=== PATIENT | female | born 1935 | race Caucasian/White ===

== ENCOUNTER → 2024-09-18 05:00 | Outpatient (REF) | payer MEDICARE, OTHER, SELFPAY ==
[2024-09-18 08:15] LABS: Hematocrit 42.2 % (37-47); Hemoglobin 13.9 g/dL (12.0-15.0); Mean Corp Hgb Conc 32.9 g/dL (32-36); Mean Corpuscular Volume 90.9 fL (81-99); Mean Platelet Vol. 10.8 fl (6.2-12.0); Platelet Count 337 K/mm3 (150-450); RBC Distribution Width CV 15.3 % (11.6-14.6); RBC Distribution Width SD 50.5 fl (35.1-43.9); Red Blood Count 4.64 M/mm3 (4.2-5.4); White Blood Count 9.6 K/mm3 (4.4-11.0)
[2024-09-18 08:24] LABS: Hemoglobin A1c 5.5 % (<=5.6)
[2024-09-18 08:52] LABS: ALB/GLOB Ratio 1.4 RATIO (0.9-2.4); AST(SGOT) 20 U/L (<=31); Alanine Aminotransfer ALT/SGPT 9 U/L (<=34); Albumin, Serum 3.4 g/dL (3.4-4.8); Alkaline Phosphatase 43 U/L (35-104); Anion Gap 10 (5-15); BUN 23 mg/dL (4-19); BUN/Creat Ratio 27.9 RATIO (10-20); Calcium,Total 8.8 mg/dL (7.6-11.0); Carbon Dioxide 23.5 mmol/L (21.0-32.0); Chloride 108 mmol/L (98-108); Cholesterol 136 mg/dL (<=200); Creatinine, Serum 0.82 mg/dL (0.70-1.20); EST Glomerular Filtration Rate 69 (>60); Globulin 2.5 g/dL (2.2-4.2); Glucose 88 mg/dL (70-99); High Density Lipoprotein 56 mg/dL; Low Density Lipoprotein Calc. 67 mg/dL; Potassium 4.1 mmol/L (3.3-5.1); Protein, Total 5.8 g/dL (5.9-8.4); Sodium Level 141 mmol/L (133-145); Total Bilirubin 0.37 mg/dL (0.00-1.30); Triglycerides 68 mg/dL; Very Low Density Lipoprotein 14 mg/dL (5-40); Vitamin D,25 Hydroxy 52.7 ng/mL (30-100); cholesterol:hdl ratio screen 2.43
== END ==
LOC: OLS.ACH2 05:00
PROVIDERS: Visit Provider Internal Medicine
DX: I50.22 Chronic systolic (congestive) heart failure (principal); E78.00 Pure hypercholesterolemia, unspecified; R53.82 Chronic fatigue, unspecified
CPT/HCPCS: 36415; 80053; 80061; 82306; 83036; 85027

== ENCOUNTER → 2024-12-09 05:00 | Outpatient (REF) | payer MEDICARE, OTHER, SELFPAY ==
--- OUTSIDE RECORDS SUMMARY | 2024-12-09 04:23 | XMS RPT_ITS | CCD ---
Author Organization [facility] Care Team Providers Care Digitizer Operator Name Role Phone Anika Hernandez Unavailable Unavailable Cameron Mendes Unavailable Unavailable Unavailable Unavailable David Zuniga Unavailable Alfredo Barreto Unavailable Unavailable Alfredo Barreto Unavailable Unavailable Gorenflo, Alfreda Rivka Unavailable Unavailab le Gorenflo, Alfreda Rivka Unavailable Unavailab le YossiontCameron Unavailable Unavaila ble StormontCameron Unavailable Unavaila ble StormontCameron Unavailable Unavaila ble StormontCameron Unavailable Unavaila ble Alfredo Barreto Unavailable Unavailable Alfredo Barreto Unavailable Unavailable David Zuniga Primary Care Provider Unavailable Primary Care Provider Unavailabl e David Zuniga Primary Care Provider David Zuniga Primary Care Provider RUBIN CHIRINOS Attending Unavailable RUBIN CHIRINOS Referring Unavailable DAVID ZUNIGA Primary Care Unavailab le CRODAVID HARKINS Primary Care Unavailab le David Zuniga MD Primary Care Provider DAVID ZUNIGA Attending Unavailab le CRODAVID HARKINS Primary Care Unavailab le CRODAVID HARKINS Attending Unavailab le CRODAVID HARKINS Primary Care Unavailab le CRODAVID HARKINS Attending Unavailab le DAVID ZUNIGA Primary Care Unavailab le Hernandez Anika MARTIN Primary Care Provider David Zuniga MD Primary Care Provider David Zuniga MD Unavailable Alexey Gipson Attending Unavailable Allergies Allergy Classification Reported Allergen(s) Allergy Type Date of Onset Reaction(s) Facility Corticosteroids (1 source) Cortisone Drug Allergy 6 [facility] (20 sources) cortisone; Translations: [CORTISONE] Propensity to adverse reactions to drug 6 [facility] Work Phone: Medications Current Medications Medication Drug Class(es) Dates Sig (Normalized) Sig (Original) calcium carbonate / cholecalciferol (6 sources) Vitamin D CALCIUM CARBONATE/VITAMIN D3 (CALCIUM 500 + D ORAL) Take by mouth 2 (two) times a day. Active CALCIUM CARBONAT E/VITAMIN D3 (CALCIUM 500 + D ORAL) Take by mouth 2 (two) times a day. Active calcium carbonate / vitamin D3 (19 sources) CALCIUM CARBONAT E/VITAMIN D3 (CALCIUM 500 + D ORAL) Take by mouth 2 (two) times a day. 0 Active CALCIUM CARBONAT E/VITAMIN D3 (CALCIUM 500 + D ORAL) Take by mouth 2 (two) times a day. Active Flu Vaccine [id number](65yr Up)(Pf)180 McG/0.5 Ml Intramuscular Syringe (1 source) Start: 12-27-2017 End: 12-27-2017 flu vaccine tv 2017, 65yr up,,PF, (FLUZONE HIGH DOSE) syringe Indications: Need for influenza vaccination Sign this order in conjunction with the immunization order to satisfy [place] Board [employer] Pharmacy Positive ID requirements for immunization orders.. 0.5 mL 0 12/27/2017 12/27/2017 Active lisinopril 20 mg oral tablet (20 sources) Angiotensin Converting Enzyme Inhibitor Start: 11-18-2019 End: 09-21-2020 take 1 tablet by mouth once daily lisinopriL (PRINIVIL,ZESTRIL) 20 MG tablet Indications: Benign essential hypertension , Chronic combined systolic and diastolic congestive heart failure (HCC) Take 1 (one) tablet (20 mg total) by mouth daily . 90 tablet 3 09/22/2020 Active Start: 12-18-2018 take 1 tablet by kirsty th once daily lisinopril (PRINIVIL,ZESTRIL) 20 MG tablet Indications: Benign essential hypertension , Chronic combined systolic and diastolic congestive heart failure (HCC) Take 1 (one) tablet (20 mg total) by mouth daily . 90 tablet 3 12/18/2018 Active Start: 11-12-2017 End: 12-27-2017 take 1 tablet by mouth once daily lisinopril (PRINIVIL,ZESTRIL) 20 MG tablet Indications: Benign essential hypertension , Chronic combined systolic and diastolic congestive heart failure (HCC) Take 1 (one) tablet (20 mg total) by mouth daily. 90 tablet 3 12/27/2017 Active Start: 10-26-2016 End: 11-09-2017 take 1 tablet by mouth once daily lisinopril (PRINIVIL,ZESTRIL) 20 MG tablet Take 1 (one) tablet (20 mg total) by mouth daily. 90 tablet 3 01/08/2017 11/09/2017 Discontinued (Reorder (Suppress CancelRx Message to Pharmacy)) metoprolol tartrate 50 mg oral tablet (20 sources) beta-Adrenergic Desmond Start: 11-24-2019 End: 09-21-2020 take 1 tablet by mouth twice daily metoprolol tartrate (LOPRESSOR) 50 MG tablet Indications: Benign essential hypertension , Chronic combined systolic and diastolic congestive heart failure (HCC) Take 1 (one) tablet (50 mg total) by mouth 2 (two) times a day . 180 tablet 3 09/22/2020 Active Start: 12-18-2018 take 1 tablet by kirsty th twice daily metoprolol tartrate (LOPRESSOR) 50 MG tablet Indications: Benign essential hypertension , Chronic combined systolic and diastolic congestive heart failure (HCC) Take 1 (one) tablet (50 mg total) by mouth 2 (two) times a day . 180 tablet 3 12/18/2018 Active Start: 11-13-2018 take 1 tablet by kirsty th twice daily metoprolol tartrate (LOPRESSOR) 50 MG tablet Indications: Benign essential hypertension , Chronic combined systolic and diastolic congestive heart failure (HCC) TAKE 1 TABLET BY MOUTH TWO TIMES DAILY 180 tablet 3 11/13/2018 Active Start: 01-05-2017 End: 12-27-2017 take 1 tablet by mouth twice daily metoprolol tartrate (LOPRESSOR) 50 MG tablet Take 1 tablet by mouth two times daily 180 tablet 3 01/05/2017 12/27/2017 Discontinued (Reorder (Suppress CancelRx Message to Pharmacy)) Start: 01-06-2016 take 1 tablet by kirsty th twice daily metoprolol tartrate (LOPRESSOR) 50 MG tablet Take 1 tablet (50 mg total) by mouth 2 (two) times a day. 180 tablet 3 01/06/2016 Active mirtazapine 30 mg oral tablet (20 sources) Start: 11-18-2019 End: 09-21-2020 take 1 tablet by mouth once daily mirtazapine (REMERON) 30 MG tablet Indications: Insomnia, unspecified type Take 1 (one) tablet (30 mg total) by mouth nightly . 90 tablet 3 09/22/2020 Active Start: 06-16-2019 take 1 tablet by kirsty th once daily mirtazapine (REMERON) 30 MG tablet Indications: Insomnia, unspecified type Take 1 (one) tablet (30 mg total) by mouth nightly . 90 tablet 1 06/16/2019 Active Start: 12-18-2018 End: 06-16-2019 take 0.5 tablet by mouth once daily mirtazapine (REMERON) 30 MG tablet Indications: Insomnia, unspecified type Take 0.5 (one-half) tablet (15 mg total) by mouth nightly . 45 tablet 3 12/18/2018 06/16/2019 Discontinued (Reorder) End: 12-18-2018 mirtazapine (REMERON) 30 MG tablet Take 15 mg by mouth nightly. 0 12/18/2018 Discontinued (Reorder (Suppress CancelRx Message to Pharmacy)) multivitamin (multivitamin) per tablet (20 sources) take 1 tablet by kirsty th once daily multivitamin (multivitamin) per tablet Take 1 tablet by mouth daily. 0 Active take 1 tablet by mouth once abril y multivitamin (multivitamin) per tablet Take 1 tablet by mouth daily. Active Multivitamin Tablet (5 sources) take 1 tablet by kirsty th once daily multivitamin (multivitamin) per tablet Take 1 tablet by mouth daily. Active vit C/vit E ac/lut/copper/zinc (PRESERVISION LUTEIN ORAL) (10 sources) take 1 capsule by mo uth once daily before mealtime vit C/vit E ac/lut/copper/zinc (PRESERVISION LUTEIN ORAL) Take 1 capsule by mouth daily . 0 Active Completed/Discontinued Medications Medication Drug Class(es) Dates Sig (Normalized) Sig (Original) ramipril 5 mg oral capsule (10 sources) Angiotensin Converting Enzyme Inhibitor Start: 07-20-2003 End: 12-27-2017 take 1 capsule by mouth once daily ramipril (ALTACE) 5 MG capsule Take 5 mg by mouth daily. 0 07/20/2003 12/27/2017 Discontinued (Discontinued by another clinician) VIT C/VIT E/LUTEIN/MIN/OMEG A-3 (OCUVITE ORAL) (18 sources) End: 01-13-2019 VIT C/VIT E/LUTEIN/MIN/OMEGA- 3 (OCUVITE ORAL) Take by mouth daily . 0 01/13/2019 Discontinued (Discontinued by another clinician) VIT C/VIT E/LUTE IN/MIN/OMEGA-3 (OCUVITE ORAL) Take by mouth daily . 0 Active VIT C/VIT E/LUTE IN/MIN/OMEGA-3 (OCUVITE ORAL) Take by mouth daily . Active VIT C/VIT E/LUTE IN/MIN/OMEGA-3 (OCUVITE ORAL) Take by mouth 2 (two) times a day. Active Problems Active Problems Problem Classification Problem Date Documented Da te Episodic/Chronic Congestive heart failure; nonhypertensive (20 sources) Congestive heart failure; Translations: [Chronic combined systolic (congestive) and diastolic (congestive) heart failure] Onset: 12-27-2017 12-27-2017 Chronic Disorders of lipid metabolism (20 sources) Hyperlipidemia; Translations: [Pure hypercholesterolemia ] Onset: 06-26-2017 06-26-2017 Chronic Essential hypertension (20 sources) Essential hypertension; Translations: [Hypertensive disorder] 06-26-2017 Chronic Heart valve disorders (20 sources) Mitral valve regurgitation; Translations: [Aortic valve regurgitation] 01-06-2016 Chronic Mood disorders (1 source) Mood disorder; Translations: [Mood disorder (HCC)] Chronic Other bone disease and musculoskeletal deformities (8 sources) Osteochondropathy; Translations: [Disorder of bone and cartilage, unspecified] Onset: 03-17-2002 12-27-2017 Chronic Other bone disease and musculoskeletal deformities (6 sources) Disorder of skeletal system; Translations: [Disorder of bone and cartilage, unspecified] Onset: 03-17-2002 12-27-2017 Chronic Other ear and sense organ disorders (2 sources) Bilateral hearing loss; Translations: [Hearing loss due to cerumen impaction, bilateral] Chronic Other ear and sense organ disorders (2 sources) Sensorineural hearing loss, bilateral; Translations: [Sensorineural hearing loss, bilateral] Chronic Other ear and sense organ disorders (1 source) Sudden hearing loss; Translations: [Sudden hearing loss, unspecified laterality] Episodic Other lower respiratory disease (1 source) Dyspnea on exertion Episodic Iza-; endo-; and myocarditis; cardiomyopathy (20 sources) Cardiomyopathy; Translations: [Cardiomyopathy, unspecified] Onset: 04-23-1999 01-06-2016 Chronic Residual codes; unclassified (1 source) Requires vaccination; Translations: [Need for vaccination] Unclassified (1 source) Needs influenza immunization Episodic Unclassified (2 sources) Patient encounter status; Translations: [General medical exam] Past or Other Problems Problem Classification Problem Date Documented Date Episodic/Chronic Congestive heart failure; nonhypertensive (1 source) Congestive heart failure; nonhypertensive Other bone disease and musculoskeletal deformities (2 sources) Disorder of skeletal system; Translations: [Disorder of bone, unspecified] Onset: 03-17-2002 12-27-2017 Episodic Other circulatory disease (5 sources) Subjective carotid bruit; Translations: [Carotid bruit] Onset: 01-08-2017 01-08-2017 Episodic Other circulatory disease (19 sources) Carotid bruit; Translations: [Other specified symptoms and signs involving the circulatory and respiratory systems] Onset: 01-08-2017 Resolved: 07-28-2020 01-08-2017 Episodic Other ear and sense organ disorders (1 source) Presbycusis Episodic Other injuries and conditions due to external causes (1 source) At low risk for fall; Translations: [At low risk for fall] Episodic Residual codes; unclassified (11 sources) Insomnia; Translations: [Insomnia, unspecified] Onset: 12-18-2018 12-18-2018 Episodic Thyroid disorders (20 sources) Acquired hypothyroidism; Translations: [Subclinical hypothyroidism] Resolved: 07-28-2020 06-26-2017 Chronic Thyroid disorders (7 sources) Disorder of thyroid gland; Translations: [Disease of thyroid gland] 01-06-2016 Episodic Results Test Name Value Interpretation Reference Range Facility CBC-Complete Blood Cnt No Di ffon 09-18-2024 Erythrocyte distribution width (RBC) [Ratio] 15.3 % High 11.6-14.6 [facility] Comment on above: Order Comment: 546 Performed By: #### L 506.1001, L100.0500, L501.9985, L500.4050, L500.4100 #### [facility] [address] [place], [address] Hematocrit (Bld) [Volume fraction] 42.2 % Normal 37-47 [facility] Comment on above: Order Comment: 546 Performed By: #### L 506.1001, L100.0500, L501.9985, L500.4050, L500.4100 #### [facility] [address] [place], [address] Hemoglobin (Bld) [Mass/Vol] 13.9 g/dL Normal 12.0-15.0 [facility] Comment on above: Order Comment: 546 Performed By: #### L 506.1001, L100.0500, L501.9985, L500.4050, L500.4100 #### [facility] [address] [place], [address] MCH (RBC) [Entitic mass] 30.0 pg Normal 27.0-32.0 [facility] Comment on above: Order Comment: 546 Performed By: #### L 506.1001, L100.0500, L501.9985, L500.4050, L500.4100 #### [facility] [address] [place], [address] MCHC (RBC) [Mass/Vol] 32.9 g/dL Normal 32-36 [facility] Comment on above: Order Comment: 546 Performed By: #### L 506.1001, L100.0500, L501.9985, L500.4050, L500.4100 #### [facility] [address] [place], [address] MCV (RBC) [Entitic vol] 90.9 fL Normal 81-99 [facility] Comment on above: Order Comment: 546 Performed By: #### L 506.1001, L100.0500, L501.9985, L500.4050, L500.4100 #### [facility] [address] [place], [address] Platelet mean volume (Bld) [Entitic vol] 10.8 fL Normal 6.2-12.0 [facility] Comment on above: Order Comment: 546 Performed By: #### L 506.1001, L100.0500, L501.9985, L500.4050, L500.4100 #### [facility] [address] [place], [address] Platelets (Bld) [#/Vol] 337 10*3/uL Normal 150-450 [facility] Comment on above: Order Comment: 546 Performed By: #### L 506.1001, L100.0500, L501.9985, L500.4050, L500.4100 #### [facility] [address] [place], [address] RBC (Bld) [#/Vol] 4.64 10*6/uL Normal 4.2-5.4 [facility] Comment on above: Order Comment: 546 Performed By: #### L 506.1001, L100.0500, L501.9985, L500.4050, L500.4100 #### [facility] [address] [place], [address] RDW SD 50.5 fl High 35.1-43.9 [facility] Comment on above: Order Comment: 546 Performed By: #### L 506.1001, L100.0500, L501.9985, L500.4050, L500.4100 #### [facility] [address] [place], [address] WBC (Bld) [#/Vol] 9.6 10*3/uL Normal 4.4-11.0 [facility] Comment on above: Order Comment: 546 Performed By: #### L 506.1001, L100.0500, L501.9985, L500.4050, L500.4100 #### [facility] [address] [place], [address] Comprehensive Metabolic Prof vaon 09-18-2024 Albumin [Mass/Vol] 3.4 g/dL Normal 3.4-4.8 [facility] Comment on above: Order Comment: 546 Performed By: #### L 506.1001, L100.0500, L501.9985, L500.4050, L500.4100 #### [facility] [address] [place], [address] Albumin/Globulin [Mass ratio] 1.4 {ratio} Normal 0.9-2.4 [facility] Comment on above: Order Comment: 546 Performed By: #### L 506.1001, L100.0500, L501.9985, L500.4050, L500.4100 #### [facility] [address] [place], [address] ALK PHOS 43 U/L Normal 35-104 [facility] Comment on above: Order Comment: 546 Performed By: #### L 506.1001, L100.0500, L501.9985, L500.4050, L500.4100 #### [facility] [address] [place], [address] ALT [Catalytic activity/Vol] 9 U/L Normal <=34 [facility] Comment on above: Order Comment: 546 Performed By: #### L 506.1001, L100.0500, L501.9985, L500.4050, L500.4100 #### [facility] [address] [place], [address] AST [Catalytic activity/Vol] 20 U/L Normal <=31 [facility] Comment on above: Order Comment: 546 Performed By: #### L 506.1001, L100.0500, L501.9985, L500.4050, L500.4100 #### [facility] [address] [place], [address] Bilirubin [Mass/Vol] 0.37 mg/dL Normal 0.00-1.30 [facility] Comment on above: Order Comment: 546 Performed By: #### L 506.1001, L100.0500, L501.9985, L500.4050, L500.4100 #### [facility] [address] [place], [address] BUN/CRE 27.9 RATIO High 10-20 [facility] Comment on above: Order Comment: 546 Performed By: #### L 506.1001, L100.0500, L501.9985, L500.4050, L500.4100 #### [facility] [address] [place], [address] Calcium [Mass/Vol] 8.8 mg/dL Normal 7.6-11.0 [facility] Comment on above: Order Comment: 546 Performed By: #### L 506.1001, L100.0500, L501.9985, L500.4050, L500.4100 #### [facility] [address] [place], [address] Chloride [Moles/Vol] 108 mmol/L Normal 98-108 [facility] Comment on above: Order Comment: 546 Performed By: #### L 506.1001, L100.0500, L501.9985, L500.4050, L500.4100 #### [facility] [address] [place], [address] CO2 [Moles/Vol] 23.5 mmol/L Normal 21.0-32.0 [facility] Comment on above: Order Comment: 546 Performed By: #### L 506.1001, L100.0500, L501.9985, L500.4050, L500.4100 #### [facility] [address] [place], [address] Creatinine [Mass/Vol] 0.82 mg/dL Normal 0.70-1.20 [facility] Comment on above: Order Comment: 546 Performed By: #### L 506.1001, L100.0500, L501.9985, L500.4050, L500.4100 #### [facility] [address] [place], [address] GAP 10 Normal 5-15 [facility] Comment on above: Order Comment: 546 Performed By: #### L 506.1001, L100.0500, L501.9985, L500.4050, L500.4100 #### [facility] [address] [place], [address] GFR/1.73 sq M.predicted among non-blacks MDRD (S/P/Bld) [Vol rate/Area] 69 mL/min/{1.73_m2} Normal >60 [facility] Comment on above: Order Comment: 546 Result Comment: mL/m in/1.73m2 CKD-EPI Creatinine Equation (2020) Performed By: #### L 506.1001, L100.0500, L501.9985, L500.4050, L500.4100 #### [facility] [address] [place], [address] Globulin (S) [Mass/Vol] 2.5 g/dL Normal 2.2-4.2 [facility] Comment on above: Order Comment: 546 Performed By: #### L 506.1001, L100.0500, L501.9985, L500.4050, L500.4100 #### [facility] [address] [place], [address] Glucose [Mass/Vol] 88 mg/dL Normal 70-99 [facility] Comment on above: Order Comment: 546 Performed By: #### L 506.1001, L100.0500, L501.9985, L500.4050, L500.4100 #### [facility] [address] [place], [address] Potassium [Moles/Vol] 4.1 mmol/L Normal 3.3-5.1 [facility] Comment on above: Order Comment: 546 Performed By: #### L 506.1001, L100.0500, L501.9985, L500.4050, L500.4100 #### [facility] [address] [place], [address] Sodium [Moles/Vol] 141 mmol/L Normal 133-145 [facility] Comment on above: Order Comment: 546 Performed By: #### L 506.1001, L100.0500, L501.9985, L500.4050, L500.4100 #### [facility] [address] [place], [address] T PROT 5.8 g/dL Low 5.9-8.4 [facility] Comment on above: Order Comment: 546 Performed By: #### L 506.1001, L100.0500, L501.9985, L500.4050, L500.4100 #### [facility] [address] [place], [address] Urea nitrogen [Mass/Vol] 23 mg/dL High 4-19 [facility] Comment on above: Order Comment: 546 Performed By: #### L 506.1001, L100.0500, L501.9985, L500.4050, L500.4100 #### [facility] [address] [place], [address] Hemoglobin A1con 09-18-2024 HbA1c (Bld) [Mass fraction] 5.5 % Normal <=5.6 [facility] Comment on above: Order Comment: 546 Result Comment: Norm al < 5.7 % Prediabetic 5.7 - 6.4 % Diabetic >or= 6.5 % Please note range changes. Performed By: #### L 506.1001, L100.0500, L501.9985, L500.4050, L500.4100 #### [facility] [address] [place], [address] Lipid Profileon 09-18-2024 CHOL:HDL 2.43 Normal [facility] Comment on above: Order Comment: 546 Performed By: #### L 506.1001, L100.0500, L501.9985, L500.4050, L500.4100 #### [facility] [address] [place], [address] Cholesterol [Mass/Vol] 136 mg/dL Normal <=200 [facility] Comment on above: Order Comment: 546 Result Comment: Chol esterol level, Desirable <200 mg/dL Borderline high cholesterol 200-239 mg/dL High cholesterol >=240 mg/dL Recommendations of the NCEP Adult Treatment Panel for the following risk-cutoff thresholds for the [place] population. Performed By: #### L 506.1001, L100.0500, L501.9985, L500.4050, L500.4100 #### [facility] [address] [place], [address] Cholesterol in HDL [Mass/Vol] 56 mg/dL Normal [facility] Comment on above: Order Comment: 546 Result Comment: Lyric onal Cholesterol Education Program (NCEP) guidelines: <40 mg/dL: Low HDL-cholesterol (major risk factor for CHD) >= 60 mg/dL: High HDL-cholesterol (negative risk factor for CHD) HDL-cholesterol is affected by a number of factors, e.g. smoking, exercise, hormones, sex and age. Performed By: #### L 506.1001, L100.0500, L501.9985, L500.4050, L500.4100 #### [facility] [address] [place], [address] Cholesterol in LDL [Mass/Vol] 67 mg/dL Normal [facility] Comment on above: Order Comment: 546 Result Comment: Bord vdzpbm=354-971 mg/dL Higher Bpgg=808 mg/dL or greater Performed By: #### L 506.1001, L100.0500, L501.9985, L500.4050, L500.4100 #### [facility] [address] [place], [address] Cholesterol in VLDL [Mass/Vol] 14 mg/dL Normal 5-40 [facility] Comment on above: Order Comment: 546 Performed By: #### L 506.1001, L100.0500, L501.9985, L500.4050, L500.4100 #### [facility] [address] [place], [address] Triglyceride [Mass/Vol] 68 mg/dL Normal [facility] Comment on above: Order Comment: 546 Result Comment: The drugs N-Acetylcysteine and Metamizole may falsely depress this assay. Normal range: <150 mg/dL Borderline High: 150-199 mg/dL High: 200-499 mg/dL Very High: >500 mg/dL Performed By: #### L 506.1001, L100.0500, L501.9985, L500.4050, L500.4100 #### [facility] [address] [place], [address] Vitamin D,25 Hydroxyon 09-18 Vitamin D 25-OH 52.7 ng/mL Normal 30-100 [facility] Comment on above: Order Comment: 546 Result Comment: Alicia min D Status Deficiency: <20 ng/mL (50nmol/L) Insufficiency: 20-30 ng/mL (50-75 nmol/L) Sufficiency: 30-100 ng/mL (75-250 nmol/L) Toxicity: >100 ng/mL (>250 nmol/L) Performed By: #### L 506.1001, L100.0500, L501.9985, L500.4050, L500.4100 #### [facility] [address] [place], [address] US DOPPLER CAROTIDon 10-13-2 020 US DOPPLER CAROTID Patient Info Name: NA GOOD Age: 84 years : 1935 Gender: Female Exam Date: 02/03/2020 2:02 PM Site Location: [facility] Patient Status: Outpatient Potato Pancake Frier: Tatyana Olmos, VILMA, RDMS (AB), RVT Referring Physician: RUBIN CHIRINOS ; Indications R09.89 - Other specified symptoms and signs involving the circulatory and respiratory systems Procedure Description 85045 Duplex examination using B-mode, color and spectral Doppler of extracranial arteries; complete bilateral study. NASCET criteria is used when performing imaging correlation with carotid duplex interpretation. Conclusions * Right. * Minimal (1-19%) stenosis in the right internal carotid artery. * Right vertebral artery is patent with antegrade flow. * No evidence of stenosis in the right subclavian, common carotid and external carotid arteries. * Left. * Minimal (1-19%) stenosis in the left internal carotid artery. * No evidence of stenosis in the left common carotid and external carotid arteries. 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 * A bunny ear sign is noted in the left vertebral artery which suggests ipsilateral subclavian artery stenosis. Recommendations * Based upon this study, Advanced Carotid Imaging does not appear to be warranted. Clinical correlation advised. Measurements ---- Name Value ---- Right PSV ---- Right Prox CCA PSV 49 cm/s Right Mid CCA PSV 48 cm/s Right Distal CCA PSV 44 cm/s Right Prox ICA PSV 57 cm/s Right Mid ICA PSV 66 cm/s Right Distal ICA PSV 70 cm/s Right ECA PSV 61 cm/s Right Vert PSV 69 cm/s BC PSV 55 cm/s Right Prox SCA PSV 126 cm/s Rt ICA/CCA Ratio 1.3 Measurements ---- Name Value ---- Right EDV ---- Right Prox CCA EDV 6 cm/s Right Mid CCA EDV 9 cm/s Right Distal CCA EDV 9 cm/s Right Prox ICA EDV 22 cm/s Right Mid ICA EDV 23 cm/s Right Distal ICA EDV 24 cm/s Right ECA EDV 0 cm/s Right Vert EDV 10 cm/s BC EDV 0 cm/s Right Prox SCA EDV 0 cm/s Measurements ---- Name Value ---- Left PSV ---- Left Prox CCA PSV 56 cm/s Left Mid CCA PSV 61 cm/s Left Distal CCA PSV 56 cm/s Left Prox ICA PSV 49 cm/s Left Mid ICA PSV 64 cm/s Left Distal ICA PSV 69 cm/s Left ECA PSV 69 cm/s Left Vert PSV 47 cm/s Left Prox SCA PSV 221 cm/s Lt ICA/CCA Ratio 0.9 Measurements ---- Name Value ---- Left EDV ---- Left Prox CCA EDV 13 cm/s Left Mid CCA EDV 12 cm/s Left Distal CCA EDV 14 cm/s Left Prox ICA EDV 15 cm/s Left Mid ICA EDV 16 cm/s Left Distal ICA EDV 18 cm/s Left ECA EDV 5 cm/s Left Vert EDV 17 cm/s Left Prox SCA EDV 1 cm/s Right Findings * No plaque noted in the right common carotid artery. * No plaque noted in the right external carotid artery. * Calcific plaque noted in the right internal carotid artery. Left Findings * No plaque noted in the left common carotid artery. * No plaque noted in the left external carotid artery. * Calcific plaque noted in the left internal carotid artery. Risk Factors Patient has a history of hypertension. . Report Signatures Finalized by HAM Morris DO on 02/03/2020 03:[address] [facility] Ambulatory US DOPPLER CAROTID Patient Info Name: NA GOOD Age: 84 years : 1935 Gender: Female Exam Date: 02/03/2020 2:02 PM Site Location: [facility] Patient Status: Outpatient [employer]ato [employer] Frier: Tatyana Olmos BS, RDMS (AB), RVT Referring Physician: RUBIN CHIRINOS ; Indications R09.89 - Other specified symptoms and signs involving the circulatory and respiratory systems Procedure Description 20153 Duplex examination using B-mode, color and spectral Doppler of extracranial arteries; complete bilateral study. NASCET criteria is used when performing imaging correlation with carotid duplex interpretation. Conclusions * Right. * Minimal (1-19%) stenosis in the right internal carotid artery. * Right vertebral artery is patent with antegrade flow. * No evidence of stenosis in the right subclavian, common carotid and external carotid arteries. * Left. * Minimal (1-19%) stenosis in the left internal carotid artery. * No evidence of stenosis in the left common carotid and external carotid arteries. 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 * A bunny ear sign is noted in the left vertebral artery which suggests ipsilateral subclavian artery stenosis. Recommendations * Based upon this study, Advanced Carotid Imaging does not appear to be warranted. Clinical correlation advised. Measurements ---- Name Value ---- Right PSV ---- Right Prox CCA PSV 49 cm/s Right Mid CCA PSV 48 cm/s Right Distal CCA PSV 44 cm/s Right Prox ICA PSV 57 cm/s Right Mid ICA PSV 66 cm/s Right Distal ICA PSV 70 cm/s Right ECA PSV 61 cm/s Right Vert PSV 69 cm/s BC PSV 55 cm/s Right Prox SCA PSV 126 cm/s Rt ICA/CCA Ratio 1.3 Measurements ---- Name Value ---- Right EDV ---- Right Prox CCA EDV 6 cm/s Right Mid CCA EDV 9 cm/s Right Distal CCA EDV 9 cm/s Right Prox ICA EDV 22 cm/s Right Mid ICA EDV 23 cm/s Right Distal ICA EDV 24 cm/s Right ECA EDV 0 cm/s Right Vert EDV 10 cm/s BC EDV 0 cm/s Right Prox SCA EDV 0 cm/s Measurements ---- Name Value ---- Left PSV ---- Left Prox CCA PSV 56 cm/s Left Mid CCA PSV 61 cm/s Left Distal CCA PSV 56 cm/s Left Prox ICA PSV 49 cm/s Left Mid ICA PSV 64 cm/s Left Distal ICA PSV 69 cm/s Left ECA PSV 69 cm/s Left Vert PSV 47 cm/s Left Prox SCA PSV 221 cm/s Lt ICA/CCA Ratio 0.9 Measurements ---- Name Value ---- Left EDV ---- Left Prox CCA EDV 13 cm/s Left Mid CCA EDV 12 cm/s Left Distal CCA EDV 14 cm/s Left Prox ICA EDV 15 cm/s Left Mid ICA EDV 16 cm/s Left Distal ICA EDV 18 cm/s Left ECA EDV 5 cm/s Left Vert EDV 17 cm/s Left Prox SCA EDV 1 cm/s Right Findings * No plaque noted in the right common carotid artery. * No plaque noted in the right external carotid artery. * Calcific plaque noted in the right internal carotid artery. Left Findings * No plaque noted in the left common carotid artery. * No plaque noted in the left external carotid artery. * Calcific plaque noted in the left internal carotid artery. Risk Factors Patient has a history of hypertension. . Report Signatures Finalized by HAM Morris DO on 02/03/2020 03:27 PM Dictated by: MAGDALENO POTTER III on SunFeb 03, 2020 3:27:40 PM EDT Transcribed by: MAGDALENO POTTER III on SunFeb 03, 2020 3:27:40 PM EDT Finalized by: MAGDALENO POTTER III on SunFeb 03, 2020 3:27:40 PM EDT [facility] Ambulatory Patient Info Name: NA GOOD Age: 84 years : 1935 Gender: Female Exam Date: 02/03/2020 2:02 PM Site Location: [facility] Patient Status: Outpatient [employer] Frier: Tatyana Olmos BS, RDMS (AB), RVT Referring Physician: RUBIN CHIRINOS ; Indications R09.89 - Other specified symptoms and signs involving the circulatory and respiratory systems Procedure Description 40842 Duplex examination using B-mode, color and spectral Doppler of extracranial arteries; complete bilateral study. NASCET criteria is used when performing imaging correlation with carotid duplex interpretation. Conclusions * Right. * Minimal (1-19%) stenosis in the right internal carotid artery. * Right vertebral artery is patent with antegrade flow. * No evidence of stenosis in the right subclavian, common carotid and external carotid arteries. * Left. * Minimal (1-19%) stenosis in the left internal carotid artery. * No evidence of stenosis in the left common carotid and external carotid arteries. 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 * A bunny ear sign is noted in the left vertebral artery which suggests ipsilateral subclavian artery stenosis. Recommendations * Based upon this study, Advanced Carotid Imaging does not appear to be warranted. Clinical correlation advised. Measurements ---- Name Value ---- Right PSV ---- Right Prox CCA PSV 49 cm/s Right Mid CCA PSV 48 cm/s Right Distal CCA PSV 44 cm/s Right Prox ICA PSV 57 cm/s Right Mid ICA PSV 66 cm/s Right Distal ICA PSV 70 cm/s Right ECA PSV 61 cm/s Right Vert PSV 69 cm/s BC PSV 55 cm/s Right Prox SCA PSV 126 cm/s Rt ICA/CCA Ratio 1.3 Measurements ---- Name Value ---- Right EDV ---- Right Prox CCA EDV 6 cm/s Right Mid CCA EDV 9 cm/s Right Distal CCA EDV 9 cm/s Right Prox ICA EDV 22 cm/s Right Mid ICA EDV 23 cm/s Right Distal ICA EDV 24 cm/s Right ECA EDV 0 cm/s Right Vert EDV 10 cm/s BC EDV 0 cm/s Right Prox SCA EDV 0 cm/s Measurements ---- Name Value ---- Left PSV ---- Left Prox CCA PSV 56 cm/s Left Mid CCA PSV 61 cm/s Left Distal CCA PSV 56 cm/s Left Prox ICA PSV 49 cm/s Left Mid ICA PSV 64 cm/s Left Distal ICA PSV 69 cm/s Left ECA PSV 69 cm/s Left Vert PSV 47 cm/s Left Prox SCA PSV 221 cm/s Lt ICA/CCA Ratio 0.9 Measurements ---- Name Value ---- Left EDV ---- Left Prox CCA EDV 13 cm/s Left Mid CCA EDV 12 cm/s Left Distal CCA EDV 14 cm/s Left Prox ICA EDV 15 cm/s Left Mid ICA EDV 16 cm/s Left Distal ICA EDV 18 cm/s Left ECA EDV 5 cm/s Left Vert EDV 17 cm/s Left Prox SCA EDV 1 cm/s Right Findings * No plaque noted in the right common carotid artery. * No plaque noted in the right external carotid artery. * Calcific plaque noted in the right internal carotid artery. Left Findings * No plaque noted in the left common carotid artery. * No plaque noted in the left external carotid artery. * Calcific plaque noted in the left internal carotid artery. Risk Factors Patient has a history of hypertension. . Report Signatures Finalized by HAM Morris DO on 02/03/2020 03:27 PM [facility] Interface, Rad In Heart[facility] Xper Echopacs - 02/03/2020 3:27 PM EDT Patient Info Name: NA GOOD Age: 84 years : 1935 Gender: Female Exam Date: 02/03/2020 2:02 PM Site Location: [facility] Patient Status: Outpatient [employer] Frier: Tatyana Olmos, VILMA, RDMS (AB), RVT Referring Physician: RUBIN CHIRINOS ; Indications R09.89 - Other specified symptoms and signs involving the circulatory and respiratory systems Procedure Description [id number] Duplex examination using B-mode, color and spectral Doppler of extracranial arteries; complete bilateral study. NASCET criteria is used when performing imaging correlation with carotid duplex interpretation. Conclusions * Right. * Minimal (1-19%) stenosis in the right internal carotid artery. * Right vertebral artery is patent with antegrade flow. * No evidence of stenosis in the right subclavian, common carotid and external carotid arteries. * Left. * Minimal (1-19%) stenosis in the left internal carotid artery. * No evidence of stenosis in the left common carotid and external carotid arteries. 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 * A bunny ear sign is noted in the left vertebral artery which suggests ipsilateral subclavian artery stenosis. Recommendations * Based upon this study, Advanced Carotid Imaging does not appear to be warranted. Clinical correlation advised. Measurements ---- Name Value ---- Right PSV ---- Right Prox CCA PSV 49 cm/s Right Mid CCA PSV 48 cm/s Right Distal CCA PSV 44 cm/s Right Prox ICA PSV 57 cm/s Right Mid ICA PSV 66 cm/s Right Distal ICA PSV 70 cm/s Right ECA PSV 61 cm/s Right Vert PSV 69 cm/s BC PSV 55 cm/s Right Prox SCA PSV 126 cm/s Rt ICA/CCA Ratio 1.3 Measurements ---- Name Value ---- Right EDV ---- Right Prox CCA EDV 6 cm/s Right Mid CCA EDV 9 cm/s Right Distal CCA EDV 9 cm/s Right Prox ICA EDV 22 cm/s Right Mid ICA EDV 23 cm/s Right Distal ICA EDV 24 cm/s Right ECA EDV 0 cm/s Right Vert EDV 10 cm/s BC EDV 0 cm/s Right Prox SCA EDV 0 cm/s Measurements ---- Name Value ---- Left PSV ---- Left Prox CCA PSV 56 cm/s Left Mid CCA PSV 61 cm/s Left Distal CCA PSV 56 cm/s Left Prox ICA PSV 49 cm/s Left Mid ICA PSV 64 cm/s Left Distal ICA PSV 69 cm/s Left ECA PSV 69 cm/s Left Vert PSV 47 cm/s Left Prox SCA PSV 221 cm/s Lt ICA/CCA Ratio 0.9 Measurements ---- Name Value ---- Left EDV ---- Left Prox CCA EDV 13 cm/s Left Mid CCA EDV 12 cm/s Left Distal CCA EDV 14 cm/s Left Prox ICA EDV 15 cm/s Left Mid ICA EDV 16 cm/s Left Distal ICA EDV 18 cm/s Left ECA EDV 5 cm/s Left Vert EDV 17 cm/s Left Prox SCA EDV 1 cm/s Right Findings * No plaque noted in the right common carotid artery. * No plaque noted in the right external carotid artery. * Calcific plaque noted in the right internal carotid artery. Left Findings * No plaque noted in the left common carotid artery. * No plaque noted in the left external carotid artery. * Calcific plaque noted in the left internal carotid artery. Risk Factors Patient has a history of hypertension. . Report Signatures Finalized by HAM Morris DO on 02/03/2020 03:27 PM [facility] ECG 12-LEADon 01-13-2019 Atrial Rate [facility] P [place] [facility] P-R Interval [facility] Q-T Interval [facility] Q-T Interval (corrected) [facility] QRS Duration [facility] QTC Calculation (Bezet) [facility] R [place] [facility] T [place] [facility] Ventricular Rate [facility] ECG 12 [place] 01-15-2018 Atrial Rate Invalid Interpretation Code [facility] P [place] Invalid Interpretation Code [facility] P-R Interval Invalid Interpretation Code [facility] Q-T Interval Invalid Interpretation Code [facility] Q-T Interval (corrected) Invalid Interpretation Code [facility] QRS Duration Invalid Interpretation Code [facility] QTC Calculation (Bezet) Invalid Interpretation Code [facility] R [place] Invalid Interpretation Code [facility] T [place] Invalid Interpretation Code [facility] Ventricular Rate Invalid Interpretation Code [facility] CBC w/o Diffon 12-19-2017 Erythrocyte distribution width Auto Ratio (RBC) 14.2 % Normal 10.0-14.4 [facility] Comment on above: Performed By: #### L IPID, CMET, TSH, CBCWOD ####Unless otherwise noted, all testing performed by [address] [phone]: [id number] Director: Alverto Fitzgerald M.D. Hematocrit Auto Volume Fraction (Bld) 44.2 % Normal 34.4-44.8 [facility] Comment on above: Performed By: #### L IPID, CMET, TSH, CBCWOD ####Unless otherwise noted, all testing performed by [address] [phone]: [id number] Director: Alverto Fitzgerald M.D. Hemoglobin mass conc (Bld) 14.6 g/dL Normal 11.6-15.4 [facility] Comment on above: Performed By: #### L IPID, CMET, TSH, CBCWOD ####Unless otherwise noted, all testing performed by [address] [phone]: [id number] Director: Alverto Fitzgerald M.D. MCH Auto Entitic mass (RBC) 29.4 pg Normal 27.9-33.9 [facility] Comment on above: Performed By: #### L IPID, CMET, TSH, CBCWOD ####Unless otherwise noted, all testing performed by [place] [phone]: [id number] Director: Alverto Fitzgerald M.D. MCHC Auto mass conc (RBC) 33.0 g/dL Low 33.1-35.1 [facility] Comment on above: Performed By: #### L IPID, CMET, TSH, CBCWOD ####Unless otherwise noted, all testing performed by [address] [phone]: [id number] Director: Alverto Fitzgerald M.D. MCV Auto Entitic volume (RBC) 89.1 fL Normal 82.6-98.9 [facility] Comment on above: Performed By: #### L IPID, CMET, TSH, CBCWOD ####Unless otherwise noted, all testing performed by [address] [phone]: [id number] Director: Alverto Fitzgerald M.D. Platelet mean volume Auto Entitic volume (Bld) 8.6 fL Normal 7.0-10.6 [facility] Comment on above: Performed By: #### L IPID, CMET, TSH, CBCWOD ####Unless otherwise noted, all testing performed by [address] [phone]: [id number] Director: Alverto Fitzgerald M.D. Platelets Auto #/vol (Bld) 349 K/mcL Normal 162-402 [facility] Comment on above: Performed By: #### L IPID, CMET, TSH, CBCWOD ####Unless otherwise noted, all testing performed by [address] [phone]: [id number] Director: Alverto Fitzgerald M.D. RBC Auto #/vol (Bld) 4.96 M/mcL Normal 3.7-5.0 [facility] Comment on above: Performed By: #### L IPID, CMET, TSH, CBCWOD ####Unless otherwise noted, all testing performed by [address] [phone]: [id number] Director: Alverto Fitzgerald M.D. WBC Auto #/vol (Bld) 9.0 K/mcL Normal 3.4-10.6 [facility] Comment on above: Performed By: #### L IPID, CMET, TSH, CBCWOD ####Unless otherwise noted, all testing performed by [address] [phone]: [id number] Director: Alverto Fitzgerald M.D. [facility] 12-19-2017 Albumin mass conc 3.7 g/dL Normal 3.2-5.2 [facility] Comment on above: Performed By: #### L IPID, CMET, TSH, CBCWOD ####Unless otherwise noted, all testing performed by [address] [phone]: [id number] Director: Alverto Fitzgerald M.D. ALP enzyme act/vol 54 U/L Normal 40-150 [facility] Comment on above: Performed By: #### L IPID, CMET, TSH, CBCWOD ####Unless otherwise noted, all testing performed by [place] [phone]: [id number] Director: Alverto Fitzgerald M.D. ALT enzyme act/vol 15 U/L Normal 14-65 [facility] Comment on above: Result Comment: This test result might be falsely depressed or falsely elevated onsamples drawn from patients taking Sulfasalazine and Sulfapyridine.Venipuncture should occur prior to taking either of these drugs. Performed By: #### L IPID, CMET, TSH, CBCWOD ####Unless otherwise noted, all testing performed by [address] [phone]: [id number] Director: Alverto Fitzgerald M.D. AST enzyme act/vol 15 U/L Normal 0-45 [facility] Comment on above: Result Comment: This test result might be falsely depressed or falsely elevated onsamples drawn from patients taking Sulfasalazine and Sulfapyridine.Venipuncture should occur prior to taking either of these drugs. Performed By: #### L IPID, CMET, TSH, CBCWOD ####Unless otherwise noted, all testing performed by [address] [phone]: [id number] Director: Alverto Fitzgerald M.D. Bilirubin mass conc 0.5 mg/dL Normal 0.3-1.2 [facility] Comment on above: Performed By: #### L IPID, CMET, TSH, CBCWOD ####Unless otherwise noted, all testing performed by [address] [phone]: [id number] Director: Alverto Fitzgerald M.D. Calcium mass conc 8.9 mg/dL Normal 8.4-10.2 [facility] Comment on above: Performed By: #### L IPID, CMET, TSH, CBCWOD ####Unless otherwise noted, all testing performed by [address] [phone]: [id number] Director: Alverto Fitzgerald M.D. Chloride molar conc 106 mmol/L Normal 98-108 [facility] Comment on above: Performed By: #### L IPID, CMET, TSH, CBCWOD ####Unless otherwise noted, all testing performed by [address] [phone]: [id number] Director: Alverto Fitzgerald M.D. CO2 molar conc 29 mmol/L Normal 21-32 [facility] Comment on above: Performed By: #### L IPID, CMET, TSH, CBCWOD ####Unless otherwise noted, all testing performed by [address] [phone]: [id number] Director: Alverto Fitzgerald M.D. Creatinine mass conc 0.76 mg/dL Normal 0.60-1.20 [facility] Comment on above: Performed By: #### L IPID, CMET, TSH, CBCWOD ####Unless otherwise noted, all testing performed by [address] [phone]: [id number] Director: Alverto Fitzgerald M.D. GFR/1.73 sq M predicted among blacks MDRD vol rate/area (S/P/Bld) mL/min/{1.73_m2} Normal [facility] Comment on above: Result Comment: Afri can [place] GFR Calc Performed By: #### L IPID, CMET, TSH, CBCWOD ####Unless otherwise noted, all testing performed by [address] [phone]: [id number] Director: Alverto Fitzgerald M.D. GFR/1.73 sq M predicted among non-blacks MDRD vol rate/area (S/P/Bld) mL/min/{1.73_m2} Normal [facility] Comment on above: Result Comment: Non- GFR CalceGFR is an estimated Glomerular Filtration Rate based on the valueof the patient's serum creatinine. In outpatients, eGFR should be usedas a helpful tool in screening for CKD. In inpatients or patients withacute renal failure, eGFR represents the GFR at the moment of the drawand should be used with caution. Performed By: #### L IPID, CMET, TSH, CBCWOD ####Unless otherwise noted, all testing performed by [address] [phone]: [id number] Director: Alverto Fitzgerald M.D. Glucose mass conc 84 mg/dL Normal 70-99 [facility] Comment on above: Result Comment: This test result might be falsely depressed or falsely elevated onsamples drawn from patients taking Sulfasalazine and Sulfapyridine.Venipuncture should occur prior to taking either of these drugs. Performed By: #### L IPID, CMET, TSH, CBCWOD ####Unless otherwise noted, all testing performed by [address] [phone]: [id number] Director: Alverto Fitzgerald M.D. Potassium molar conc 4.1 mmol/L Normal 3.5-5.1 [facility] Comment on above: Performed By: #### L IPID, CMET, TSH, CBCWOD ####Unless otherwise noted, all testing performed by [address]CLIA: [id number] Director: Alverto Fitzgerald M.D. Protein mass conc 7.2 g/dL Normal 6.0-8.0 [facility] Comment on above: Performed By: #### L IPID, CMET, TSH, CBCWOD ####Unless otherwise noted, all testing performed by [address]8509CLIA: [id number] Director: Alverto Fitzgerald M.D. Sodium molar conc 142 mmol/L Normal 135-145 [facility] Comment on above: Performed By: #### L IPID, CMET, TSH, CBCWOD ####Unless otherwise noted, all testing performed by [address] [phone]: [id number] Director: Alverto Fitzgerald M.D. Urea nitrogen mass conc 19 mg/dL Normal 8-25 [facility] Comment on above: Performed By: #### L IPID, CMET, TSH, CBCWOD ####Unless otherwise noted, all testing performed by [address] [phone]: [id number] Director: Alverto Fitzgerald M.D. Lipid Panelon 12-19-2017 Cholesterol in HDL mass conc 68 mg/dL High 40-59 [facility] Comment on above: Performed By: #### L IPID, CMET, TSH, CBCWOD ####Unless otherwise noted, all testing performed by [place] [phone]: [id number] Director: Alverto Fitzgerald M.D. Cholesterol in LDL mass conc 150 mg/dL Normal 10-150 [facility] Comment on above: Performed By: #### L IPID, CMET, TSH, CBCWOD ####Unless otherwise noted, all testing performed by [address]: [id number] Director: Alverto Fitzgerald M.D. Cholesterol in VLDL mass conc 24 mg/dL Normal 5-40 [facility] Comment on above: Performed By: #### L IPID, CMET, TSH, CBCWOD ####Unless otherwise noted, all testing performed by [address] [phone]: [id number] Director: Alverto Fitzgerald M.D. Cholesterol mass conc 243 mg/dL High 100-199 [facility] Comment on above: Performed By: #### L IPID, CMET, TSH, CBCWOD ####Unless otherwise noted, all testing performed by [address], [place] [phone]: [id number] Director: Alverto Fitzgerald M.D. Cholesterol.total/Ch olesterol in HDL mass ratio 3.6 {ratio} Normal 3.2-5.0 [facility] Comment on above: Result Comment: Robert le Coronary Heart Disease Risk Factor (CHDRF):Average risk= 4.41/2 Average risk= 3.32 times Average risk= 7.1 Performed By: #### L IPID, CMET, TSH, CBCWOD ####Unless otherwise noted, all testing performed by [address] [phone]: [id number] Director: Alverto Fitzgerald M.D. Triglyceride mass conc 121 mg/dL High 25-120 [facility] Comment on above: Performed By: #### L IPID, CMET, TSH, CBCWOD ####Unless otherwise noted, all testing performed by [address] [phone]: [id number] Director: Alverto Fitzgerald M.D. Microalbumin, Ur Random Pane epifanio 12-19-2017 Creatinine, Urine Random 124.00 mg/dL Normal [facility] Comment on above: Result Comment: No e stablished reference range. Performed By: #### M IALBURR ####Unless otherwise noted, all testing performed by [address] [id number]: [id number] Director: Alverto Fitzgerald M.D. MIALB/Creatinine Ratio 9 Normal 0.0-25.0 [facility] Comment on above: Performed By: #### M IALBURR ####Unless otherwise noted, all testing performed by [address] [id number]: [id number] Director: Alverto Fitzgerald M.D. Microalbumin, Urine Random 1.1 mg/dL Normal 0.0-1.8 [facility] Comment on above: Performed By: #### M IALBURR ####Unless otherwise noted, all testing performed by [address] [id number]: [id number] Director: Alverto Fitzgerald M.D. TSHon 12-19-2017 T4 free mass conc 1.1 ng/dL Normal 0.7-1.7 [facility] Comment on above: Result Comment: Samp les from patients routinely receiving high dose biotin therapy(100-300 mg/day) may show falsely increased results. Please correlateclinically. Performed By: #### L IPID, CMET, TSH, CBCWOD ####Unless otherwise noted, all testing performed by [address] [id number]: [id number] Director: Alverto Fitzgerald M.D. Thyrotropin Qn 0.22 uIU/mL Low 0.320-5.000 [facility] Comment on above: Result Comment: Samp les from patients routinely receiving high dose biotin therapy(100-300 mg/day) may show falsely decreased results. Please correlateclinically. Performed By: #### L IPID, CMET, TSH, CBCWOD ####Unless otherwise noted, all testing performed by [address] [id number]: [id number] Director: Alverto Fitzgerald M.D. CBC and Differentialon 12-19 Basophils 1.1 % Invalid Interpretation Code [facility] Basophils 0.1 K/mcL Invalid Interpretation Code 0 - 0.2 [facility] Eosinophils 0.3 K/mcL Invalid Interpretation Code 0 - 0.5 [facility] Erythrocytes (RBC) 4.79 M/mcL Invalid Interpretation Code 3.7 - 5.0 [facility] Hematocrit (HCT) 42.7 % Invalid Interpretation Code 34.4 - 44.8 % [facility] Hemoglobin (HGB) 14.1 g/dL Invalid Interpretation Code 11.6 - 15.4 g/dL [facility] Lymphocytes 2.4 K/mcL Invalid Interpretation Code 1.0 - 3.7 [facility] MCH 29.5 pg Invalid Interpretation Code 27.9 - 33.9 pg [facility] MCHC 33.1 g/dL Invalid Interpretation Code 33.1 - 35.1 g/dL [facility] MCV 89.2 fL Invalid Interpretation Code 82.6 - 98.9 [facility] Monocytes 0.6 K/mcL Invalid Interpretation Code 0.1 - 0.6 [facility] Neutrophils 4.4 K/mcL Invalid Interpretation Code 1.2 - 6.9 [facility] Platelet mean volume (PMV) 8.7 fL Invalid Interpretation Code 7.0 - 10.6 [facility] Platelets 278 K/mcL Invalid Interpretation Code 162 - 402 [facility] RDW-CA 14.3 % Invalid Interpretation Code 10 - 14.4 % [facility] Segmented Neut 56.5 % Invalid Interpretation Code [facility] T8 suppressor/100 cells 4.2 10*3/uL Invalid Interpretation Code [facility] T8 suppressor/100 cells 30.3 10*3/uL Invalid Interpretation Code [facility] T8 suppressor/100 cells 7.9 10*3/uL Invalid Interpretation Code [facility] WBC (Leukocytes) 7.8 K/mcL Invalid Interpretation Code 3.4 - 10.6 [facility] Comprehensive Metabolic Pane epifanio 12-19-2016 Alanine aminotransferase (ALT) 20 U/L Invalid Interpretation Code 14 - 65 U/L [facility] Albumin 3.6 g/dL Invalid Interpretation Code 3.2 - 5.2 g/dL [facility] Alkaline phosphatase (ALP) 39 U/L Low 40 - 150 U/L [facility] Aspartate aminotransferase (AST) 14 U/L Invalid Interpretation Code 0 - 45 U/L [facility] Calcium 9.4 mg/dL Invalid Interpretation Code 8.4 - 10.2 mg/dL [facility] Chloride 107 mmol/L Invalid Interpretation Code 98 - 108 mmol/L [facility] CO2 30 mmol/L Invalid Interpretation Code 21 - 32 mmol/L [facility] Creatinine 0.72 mg/dL Invalid Interpretation Code 0.6 - 1.2 mg/dL [facility] eGFR (black) mL/min/{1.73_m2} Invalid Interpretation Code ml/min/1.73s q.m [facility] eGFR (non-black) mL/min/{1.73_m2} Invalid Interpretation Code ml/min/1.73s q.m [facility] Glucose 86 mg/dL Invalid Interpretation Code 70 - 99 mg/dL [facility] Potassium 4.3 mmol/L Invalid Interpretation Code 3.5 - 5.1 mmol/L [facility] Protein 6.8 g/dL Invalid Interpretation Code 6 - 8 g/dL [facility] Sodium 145 mmol/L Invalid Interpretation Code 135 - 145 mmol/L [facility] Urea nitrogen 17 mg/dL Invalid Interpretation Code 8 - 25 mg/dL [facility] Urine, bilirubin presence 0.6 mg/dL Invalid Interpretation Code 0.3 - 1.2 mg/dL [facility] Lipid Panelon 12-19-2016 Cholesterol 242 mg/dL High 100 - 199 mg/dL [facility] Cholesterol to HDL Ratio 3.2 {ratio} Invalid Interpretation Code 3.2 - 5.0 [facility] HDL Cholesterol 76 mg/dL High 40 - 59 mg/dL [facility] Interpretation and review of laboratory results Abnormal Invalid Interpretation Code [facility] LDL Cholesterol 150 mg/dL Invalid Interpretation Code 10 - 150 mg/dL [facility] Triglyceride 85 mg/dL Invalid Interpretation Code 25 - 120 mg/dL [facility] VLDL 17 mg/dL Invalid Interpretation Code 5 - 40 mg/dL [facility] Vital Signs Date Time Vital Sign Value Performing Clinician Facility 07-28-2020 13:54-0400 BMI (Body Mass Index) 22.43 kg/m2 David Zuniga [facility] 07-28-2020 13:54-0400 Body Temperature 98.71 [degF] David Zuniga [facility] 07-28-2020 13:54-0400 Body weight 57.42 kg David Zuniga [facility] 07-28-2020 13:54-0400 BP Diastolic 82 mm[Hg] David Zuniga [facility] 07-28-2020 13:54-0400 BP Systolic 139 mm[Hg] David Zuniga [facility] 07-28-2020 13:54-0400 Height 160 cm David Zuniga [facility] 07-28-2020 13:54-0400 Pulse (Heart Rate) 84 /min David Zuniga [facility] 07-28-2020 13:54-0400 Pulse Oximetry 97 % David Zuniga [facility] 01-15-2020 14:24-0400 BMI (Body Mass Index) 22.5 kg/m2 Rubin Chirinos [facility] 01-15-2020 14:24-0400 Body weight 57.61 kg Rubin Chirinos [facility] 01-15-2020 14:24-0400 BP Diastolic 78 mm[Hg] Rubinyara Chirinos [facility] 01-15-2020 14:24-0400 BP Systolic 136 mm[Hg] Rubinyara Chirinos [facility] 01-15-2020 14:24-0400 Height 160 cm Rubinyara Chirinos [facility] 01-15-2020 14:24-0400 Pulse (Heart Rate) 64 /min Rubinyara Chirinos [facility] 01-15-2020 14:24-0400 Pulse Oximetry 97 % Rubin Chirinos [facility] 12-08-2019 11:20-0400 BMI (Body Mass Index) 22.5 kg/m2 Davidcleveland Zuniga [facility] 12-08-2019 11:20-0400 Body Temperature 97.81 [degF] David Zuniga [facility] 12-08-2019 11:20-0400 Body weight 57.61 kg David Zuniga [facility] 12-08-2019 11:20-0400 BP Diastolic 70 mm[Hg] David Zuniga [facility] 12-08-2019 11:20-0400 BP Systolic 133 mm[Hg] David Zuniga [facility] 12-08-2019 11:20-0400 Height 160 cm David Zuniga [facility] 12-08-2019 11:20-0400 Pulse (Heart Rate) 98 /min Davidcleveland Zuniga [facility] 06-16-2019 09:58-0500 BP Diastolic 74 mm[Hg] Davidcleveland Zuniga [facility] 06-16-2019 09:58-0500 BP Systolic 130 mm[Hg] Davidcleveland Zuniga [facility] 06-16-2019 09:58-0500 Pulse (Heart Rate) 82 /min Davidcleveland Zuniga [facility] 06-16-2019 09:58-0500 Pulse Oximetry 97 % Davidcleveland Zuniga [facility] 06-16-2019 09:58-0500 Respiratory Rate 18 /min Davidcleveland Zuniga [facility] 06-16-2019 09:54-0500 BMI (Body Mass Index) 23.13 kg/m2 Davidcleveland Zuniga [facility] 06-16-2019 09:54-0500 Body Temperature 97.9 [degF] Davidcleveland Zuniga [facility] 06-16-2019 09:54-0500 Body weight 59.24 kg Davidcleveland Zuniga [facility] 06-16-2019 09:54-0500 Height 160 cm Davidcleveland Zuniga [facility] 01-13-2019 11:15-0400 BMI (Body Mass Index) 22.14 kg/m2 Rubin Chirinos [facility] 01-13-2019 11:15-0400 Body weight 56.7 kg Rubin Mezahmy [facility] 01-13-2019 11:15-0400 BP Diastolic 71 mm[Hg] [facility]-13-2019 11:15-0400 BP Systolic 140 mm[Hg] [facility] 01-13-2019 11:15-0400 Height 160 [facility] 01-13-2019 11:15-0400 Pulse (Heart Rate) 80 /min [facility] 01-13-2019 11:15-0400 Pulse Oximetry 99 % Rubin Mezahmy [facility] 12-04-2018 09:08-0400 BMI (Body Mass Index) 22.43 kg/m2 Ceasar Arce [facility] 12-04-2018 09:08-0400 Body weight 57.42 kg Ceasar Arce [facility] 12-04-2018 09:08-0400 BP Diastolic 80 mm[Hg] Ceasar Preeto [facility] 12-04-2018 09:08-0400 BP Systolic 167 mm[Hg] Ceasar Arce [facility] 12-04-2018 09:08-0400 Height 160 cm Ceasar Arce [facility] 12-04-2018 09:08-0400 Pulse (Heart Rate) 74 /min Ceasar Arce [facility] 12-04-2018 09:08-0400 Pulse Oximetry 98 % Ceasar Arce [facility] 06-26-2018 11:00-0500 BP Diastolic 77 mm[Hg] David Zuniga [facility] 06-26-2018 11:00-0500 BP Systolic 129 mm[Hg] David Zuniga [facility] 06-26-2018 11:00-0500 Pulse (Heart Rate) 66 /min David Zuniga [facility] 06-26-2018 11:00-0500 Pulse Oximetry 96 % David Zuniga [facility] 06-26-2018 10:56-0500 BMI (Body Mass Index) 22.18 kg/m2 David Zuniga [facility] 06-26-2018 10:56-0500 Body Temperature 98.2 [degF] David Zuniga [facility] 06-26-2018 10:56-0500 Height 160 cm David Zuniga [facility] 06-26-2018 10:56-0500 Weight 56.79 kg David Zuniga [facility] 01-15-2018 10:01-0400 BMI (Body Mass Index) 22.32 kg/m2 Alfreda [facility] 01-15-2018 10:01-0400 BP Diastolic 80 mm[Hg] [facility] 01-15-2018 10:01-0400 BP Systolic 152 mm[Hg] [facility] 01-15-2018 10:01-0400 Height 160 cm [facility] 01-15-2018 10:01-0400 Pulse (Heart Rate) 81 /min [facility] 01-15-2018 10:01-0400 Pulse Oximetry 98 % [facility] 01-15-2018 10:01-0400 Weight 57.15 kg [facility] 12-27-2017 10:27-0400 BMI (Body Mass Index) 22.27 kg/m2 David Zuniga [facility] 12-27-2017 10:27-0400 Body Temperature 97.59 [degF] David Zuniga [facility] 12-27-2017 10:27-0400 BP Diastolic 75 mm[Hg] David Zuniga [facility] 12-27-2017 10:27-0400 BP Systolic 159 mm[Hg] David Zuniga [facility] 12-27-2017 10:27-0400 Height 160 cm David Zuniga [facility] 12-27-2017 10:27-0400 Pulse (Heart Rate) 82 /min David Zuniga [facility] 12-27-2017 10:27-0400 Pulse Oximetry 97 % David Zuniga [facility] 12-27-2017 10:27-0400 Respiratory Rate 12 /min David Zuniga [facility] 12-27-2017 10:27-0400 Weight 57.02 kg David Zuniga [facility] 06-26-2017 09:46-0500 BMI (Body Mass Index) 23.06 kg/m2 Alfredo [facility] 06-26-2017 09:46-0500 Body Temperature 98.29 [degF] Alfredo [facility] 06-26-2017 09:46-0500 BP Diastolic 80 mm[Hg] [facility] 06-26-2017 09:46-0500 BP Systolic 140 mm[Hg] [facility] 06-26-2017 09:46-0500 Height 160 cm [facility] 06-26-2017 09:46-0500 Pulse (Heart Rate) 68 /min [facility] 06-26-2017 09:46-0500 Weight 59.06 kg [facility] 06-20-2017 14:38-0500 BMI (Body Mass Index) 23.03 kg/m2 [facility]-2017 14:38-0500 BP Diastolic 79 mm[Hg] Ceasar Dmitryhoo [facility] 06-20-2017 14:38-0500 BP Systolic 160 mm[Hg] Ceasar Dmitryhoo [facility] 06-20-2017 14:38-0500 Height 160 [facility] 06-20-2017 14:38-0500 Pulse (Heart Rate) 67 /min [facility] 06-20-2017 14:38-0500 Pulse Oximetry 99 % Ceasar Arce [facility] 06-20-2017 14:38-0500 Weight 58.97 kg Ceasar Arce [facility] 01-08-2017 10:21-0400 BMI (Body Mass Index) 22.32 kg/m2 Rubin Chirinos [facility] Work Phone: 01-08-2017 10:21-0400 BP Diastolic 85 mm[Hg] Rubin Chirinos [facility] Work Phone: 01-08-2017 10:21-0400 BP Systolic 165 mm[Hg] Rubin Chirinos [facility] Work Phone: 01-08-2017 10:21-0400 Height 160 cm Rubin Chirinos [facility] Work Phone: 01-08-2017 10:21-0400 Pulse (Heart Rate) 64 /min Rubin Chirinos [facility] Work Phone: 01-08-2017 10:21-0400 Pulse Oximetry 97 % Rubin Chirinos [facility] Work Phone: 01-08-2017 10:21-0400 Weight 57.15 kg Rubin Chirinos [facility] Work Phone: 12-13-2016 14:18-0400 BMI (Body Mass Index) 22.44 kg/m2 Ceasar Arce [facility] Work Phone: 12-13-2016 14:18-0400 BP Diastolic 81 mm[Hg] Ceasar [place] [facility] Work Phone: 12-13-2016 14:18-0400 BP Systolic 167 mm[Hg] Ceasar [place] [facility] Work Phone: 12-13-2016 14:18-0400 Height 160 cm Ceasar [place] [facility] Work Phone: 12-13-2016 14:18-0400 Pulse (Heart Rate) 69 /min Ceasar [place] [facility] Work Phone: 12-13-2016 [id number] Pulse Oximetry 99 % Ceasar Arce [facility] Work Phone: [phone]:[phone] Weight 57.47 kg Ceasar Arce [facility] Work Phone: Encounters Encounter Date Encounter Type Care Provider Facility Start: 09-18-2024 ambulatory Alexey Sarah Patino ty:[facility] Start: 01-14-2021 ambulatory [facility] Amb[facility] Start: 12-07-2020 ambulatory DAVID [facility] Start: 09-21-2020 End: 09-21-2020 Refill Shante Hargrove LPN [facility] Comment on above: Benign essential hyp ertension; Chronic combined systolic and diastolic congestive heart failure (HCC); Insomnia, unspecified type Start: 07-28-2020 End: 07-28-2020 ambulatory [facility] [employer] [facility] Ambulatory Start: 07-28-2020 End: 07-28-2020 Office outpatient visit 25 minutes Davidcleveland Mortensen Crouch Work Phone: [facility] Comment on above: Benign essential hyp ertension (Primary Dx); Chronic combined systolic and diastolic congestive heart failure (HCC); Mixed hyperlipidemia Start: 05-07-2020 End: 05-07-2020 Orders Only Alley Kimball Work Phone: [facility] Start: 02-03-2020 End: 02-04-2020 Patient encounter procedure [facility] Start: 02-03-2020 End: 02-03-2020 Subsequent hospital visit by physician Rubin Chirinos Work Phone: [facility] Comment on above: Bruit of left caroti d artery Start: 01-15-2020 End: 01-15-2020 Office outpatient visit 25 minutes Rubin Chirinos Work Phone: [facility] Comment on above: Bruit of left caroti d artery (Primary Dx); Chronic combined systolic and diastolic congestive heart failure (HCC); Mixed hyperlipidemia; Nonrheumatic aortic valve insufficiency; Benign essential hypertension; Left carotid bruit Start: 12-08-2019 End: 12-08-2019 Patient encounter procedure David Zuniga Work Phone: [facility] Comment on above: General medical exam (Primary Dx); At low risk for fall; Need for vaccination Start: 12-01-2019 End: 12-05-2019 Patient encounter procedure DAVIDCLEVELAND ZUNIGA [facility] Start: 06-16-2019 End: 06-16-2019 Office outpatient visit 25 minutes David Zuniga Work Phone: [facility] Comment on above: Benign essential hyp ertension (Primary Dx); Chronic combined systolic and diastolic congestive heart failure (HCC); Mixed hyperlipidemia; Subclinical hypothyroidism; Insomnia, unspecified type Start: 01-13-2019 End: 01-13-2019 Office outpatient visit 25 minutes Rubin Chirinos Work Phone: [facility] Comment on above: Cardiomyopathy, unsp ecified type (HCC) (Primary Dx); Chronic combined systolic and diastolic congestive heart failure (HCC); Mixed hyperlipidemia; Benign essential hypertension Start: 12-04-2018 End: 12-04-2018 Clinical Support Kriss Marcelo [facility] Comment on above: Sensorineural hearin g loss, bilateral (Primary Dx); Sudden hearing loss, unspecified laterality Start: 12-04-2018 End: 12-04-2018 Office outpatient visit 25 minutes Ceasar Arce Work Phone: [facility] Comment on above: Hearing loss due to cerumen impaction, bilateral (Primary Dx); Sensorineural hearing loss, bilateral Start: 09-26-2018 End: 09-26-2018 Patient encounter procedure Eve Yap [facility] Comment on above: Medicare Wellness Vi sit (VM to schedule MWV) Start: 06-26-2018 End: 06-26-2018 Office outpatient visit 25 minutes David Zuniga Work Phone: [facility] Comment on above: Benign essential hyp ertension (Primary Dx); Mixed hyperlipidemia; Chronic combined systolic and diastolic congestive heart failure (HCC); Mood disorder (HCC) Start: 01-28-2018 Patient encounter procedure Alfreda Gallegos Facility:[facility] Start: 01-28-2018 End: 01-28-2018 Patient encounter Alfreda Gallegos Work Phone: [facility] Start: 01-15-2018 End: 01-15-2018 Office outpatient visit 25 minutes Alfreda Gallegos Work Phone: [facility] Comment on above: Congestive heart elsy lure, unspecified HF chronicity, unspecified heart failure type (HCC) (Primary Dx); Dyspnea on exertion; Nonrheumatic aortic valve insufficiency; Benign essential hypertension Start: 12-27-2017 End: 12-27-2017 Office outpatient visit 25 minutes David Festus Zuniga Work Phone: [facility] Comment on above: Benign essential hyp ertension (Primary Dx); Mixed hyperlipidemia; Subclinical hypothyroidism; Chronic combined systolic and diastolic congestive heart failure (HCC); Need for influenza vaccination Start: 12-19-2017 Patient encounter procedure Alfredo Barreto Facility:[facility] Start: 12-19-2017 End: 12-19-2017 Patient encounter Devonte Hassan [facility] Start: 11-07-2017 Refill Rubin Schafer Work Phone: [facility] Comment on above: Medication Refill Start: 06-26-2017 Patient encounter procedure Alfredo Barreto Facility:[facility] Start: 06-26-2017 Office/outpatient vi sit, est, level 3 Alfredo Barreto Work Phone: [facility] Start: 06-25-2017 Patient encounter procedure Cameron Mendes Facility:[facility] Start: 06-20-2017 Patient encounter Ceasar Sreedharfidelia wilmer Arce Work Phone: [facility] Start: 06-18-2017 Patient encounter procedure Cameron Mendes Facility:[facility] Start: 01-12-2017 End: 01-12-2017 Ambulatory Rubin Chirinos Work Phone: [facility] Start: 01-08-2017 Office/outpatient vi sit, est, level 5 Rubin Mandeep Work Phone: [facility] Start: 12-19-2016 End: 12-19-2016 Ambulatory Cameron Mendes Work Phone: [facility] Start: 12-15-2016 End: 12-15-2016 Ambulatory Cameron Mendes Work Phone: [facility] Start: 12-13-2016 End: 12-13-2016 Office outpatient new 30 minutes Ceasar Tonywilmer Dmitrysergdaniellacarito Work Phone: [facility] Comment on above: Hearing loss due to cerumen impaction, bilateral (Primary Dx);Presbycusis, unspecified laterality Start: 11-24-2016 End: 11-24-2016 Ambulatory Cameron Mendes Work Phone: [facility] Procedures Date Procedure Procedure Detail Performing Clinician Start: 02-03-2020 Carotid artery doppl er assessment Rubin Chirions Work Phone: Start: 12-08-2019 Adult depression screening assessment David Zuniga Start: 01-13-2019 12 lead ECG Rubin Mezaparish swift Work Phone: Start: 12-18-2018 Adult depression screening assessment Rubin Chirinos Start: 01-15-2018 End: 01-15-2018 Ecg routine ecg w/least 12 lds w/i&r Alfreda Gallegos Work Phone: Plan of Treatment Date Care Activity Detail Author Start: 12-07-2029 Tetanus vaccination Tetanus: Every 10yrs [facility] Start: 12-27-2022 History and physical examination, annual for health maintenance Wellness Visit [facility] Start: 12-22-2021 Influenza vaccination Sequential Influenza Vaccine (#1) [facility] Start: 01-31-2021 End: 01-31-2021 Office Visit 01/31/2021 Office Visit Primary Care David Zuniga MD [address] [place] [id number] [phone] [facility] Start: 12-07-2020 Administration of herpes zoster vaccine Zoster Vaccines (1 of 2) [facility] Comment on above: Postponed from 10/21/1985 (Treatment Not Available) Start: 12-07-2020 Adolescent depression screening assessment Depression Screening (PHQ9) [facility] Start: 12-07-2020 Depression screening using PHQ-9 (Patient Health Questionnaire 9) score [facility] Start: 12-07-2020 Fall risk assessment Falls Risk Assessment [facility] Start: 12-07-2020 History and physical examination, annual for health maintenance Wellness Visit [facility] Start: 08-09-2020 COVID-19 Vaccine (3 - Booster for Moderna series) COVID-19 Vaccine (3 - Booster for Moderna series) [facility] Start: 07-28-2020 End: 07-28-2020 Office Visit 07/28/2020 Office Visit Primary Care David Zuniga MD [address] [place] [address] [phone] [facility] Start: 07-28-2020 End: 07-28-2021 Microalbumin measurement, urine, quantitative Microalbumin/Creatinine Ratio, UR Random Lab Routine Benign essential hypertension Expected: 07/28/2020, Expires: 07/28/2021 [facility] Comment on above: Expected: 07/28/2020, Expires: Start: 06-10-2020 End: 06-10-2020 Office Visit 06/10/2020 Office Visit Primary Care David Zuniga MD [facility] [place] [address] [phone] [facility] Start: 02-03-2020 End: 02-03-2020 Appointment 02/03/2020 Appointment Cardiology Rubin Chirinos MD [address] [place], [place] [address] [address] [phone] [facility] Start: 12-23-2019 Influenza vaccination given Sequential Influenza Vaccine (#1) [facility] Start: 12-19-2019 Depression screening using PHQ-9 (Patient Health Questionnaire 9) score DEPRESSION SCREENING (PHQ9) [facility] Start: 12-19-2019 Fall risk assessment Falls Risk Assessment [facility] Start: 12-08-2019 End: 12-08-2019 Office Visit 12/08/2019 Office Visit Primary Care David Zuniga MD [address] [place] [address] [phone] [facility] Start: 06-16-2019 End: 06-16-2020 Microalbumin measurement, urine, quantitative Microalbumin/Creatinine Ratio, UR Random Lab Routine Benign essential hypertension Expected: 06/16/2019, Expires: 06/16/2020 [facility] Comment on above: Expected: 06/16/2019, Expires: 1 Start: 06-16-2019 End: 06-16-2019 Office Visit 06/16/2019 Office Visit Primary Care David Zuniga MD [address] [place] [address] [phone] [facility] Start: 01-13-2019 End: 01-13-2019 Office Visit 01/13/2019 Office Visit Cardiology Rubin Chirinos MD [address] [place] [address] [phone] [facility] Start: 12-22-2018 Influenza vaccination given SEQUENTIAL INFLUENZA VACCINE (#1) [facility] Start: 12-20-2018 End: 12-20-2018 Office Visit 12/20/2018 Office Visit Primary Care David Zuniga MD [address] [place] [address] [phone] [facility] Start: 12-18-2018 End: 12-18-2018 Office Visit 12/18/2018 Office Visit Primary Care David Zuniga MD [address] [place] [address] [phone] [facility] Start: 06-26-2018 End: 06-27-2019 Microalbumin measurement, urine, quantitative Microalbumin, Urine, Random Routine Benign essential hypertension Expected: 06/26/2018, Expires: 06/27/2019 [facility] Comment on above: Expected: 06/26/2018, Expires: 0 Start: 06-26-2018 End: 06-26-2018 Ambulatory 06/26/2018 Office Visit Primary Care David Zuniga MD [address] [place] [address] [phone] [facility] Start: 06-19-2018 End: 06-19-2018 Ambulatory 06/19/2018 Clinical Support Primary Care [facility] Start: 01-28-2018 End: 01-28-2018 Ambulatory 01/28/2018 Appointment Cardiology Alfreda Gallegos CNP [address] [place] [address] [phone] [facility] Start: 01-10-2018 End: 01-10-2018 Ambulatory 01/10/2018 Office Visit Cardiology Rubin Chirinos MD [address] [place] [address] [phone] [facility] Start: 12-27-2017 End: 12-27-2017 Ambulatory [facility] Start: 12-22-2017 Influenza vaccination SEQUENTIAL INFLUENZA VACCINE (#1) [facility] Start: 12-18-2017 Ambulatory 12/18/2017 Clinical Support Primary Care [facility] Start: 06-26-2017 Ambulatory [facility] Start: 06-25-2017 Ambulatory 06/25/2017 Hospital Encounter Cameron Mendes MD [address] [place] [address] [phone] [facility] Start: 06-20-2017 Ambulatory 06/20/2017 Office Visit Otolaryngology Ceasar Arce MD [address] [address] [phone] [facility] Start: 06-18-2017 Ambulatory 06/18/2017 Hospital Encounter Cameron Mendes MD [address] [place] [address] [phone] [facility] Start: 01-12-2017 Ambulatory 01/12/2017 Hospital Encounter Cardiology Rubin Chirinos MD [address] [place] [address] [phone] [facility] Start: 01-08-2017 Ambulatory 01/08/2017 Office Visit Cardiology Rubin [facility]inos [facility] [address] [facility] [place] [address] [phone] [facility] Start: 12-22-2016 Influenza vaccination SEQUENTIAL INFLUENZA VACCINE (#1) [facility] Work Phone: Start: 12-22-2016 SEQUENTIAL INFLUENZA VACCINE (#1) SEQUENTIAL INFLUENZA VACCINE (#1) [facility] Work Phone: Start: 12-13-2016 Ambulatory 12/13/2016 Office Visit Otolaryngology Ceasar Arce MD [address] [address] [phone] [facility] Start: 03-02-2016 Pneumococcal vaccination PNEUMOCOCCAL VACCINE AGE 65+ (2 of 2 - PCV13) [facility] Start: 10-21-2000 Fall risk assessment Steadi Fall Risk Assessment [facility] Start: 10-21-2000 Pneumococcal vaccination PNEUMOCOCCAL VACCINE AGE 65+ (1 of 2 - PCV13) [facility] Work Phone: Start: 10-21-2000 PNEUMOCOCCAL VACCINE AGE 65+ (1 of 2 - PCV13) PNEUMOCOCCAL VACCINE AGE 65+ (1 of 2 - PCV13) [facility] Work Phone: Start: 1995 Zoster vacc, sc ZOSTER VACCINE [facility] Work Phone: Start: 10-21-1985 Administration of herpes zoster vaccine ZOSTER VACCINES (1 of 2) [facility] Start: 10-21-1985 ZOSTER VACCINES (1 of 2) ZOSTER VACCINES (1 of 2) [facility] Start: 10-21-1938 History and physical examination, annual for health maintenance Wellness Visit [facility] Start: 1935 Fall risk assessment Falls Risk Assessment [facility] Start: 1935 End: 1935 DEXA SCAN DEXA SCAN [facility] Work Phone: Start: 1935 End: 1935 Screening for osteoporosis DEXA SCAN [facility] Start: 1935 End: 1935 TETANUS EVERY 10 YR TETANUS EVERY 10 YR [facility] Work Phone: Start: 1935 End: 1935 Tetanus vaccination [facility] Work Phone: End: 03-17-2021 Carotid artery doppler assessment Ultrasound doppler carotid Vascular Ultrasound Routine Bruit of left carotid artery 1 Occurrences starting 01/15/2020 until 03/17/2021 [facility] Comment on above: 1 Occurrences starting 01/15/2020 until 03/17/2021 End: 01-12-2017 Carotid Duplex Carotid Duplex Routine Bruit Once for 1 Occurrences starting 01/12/2017 until 01/12/2017 [facility] Work Phone: Carotid Duplex Carotid Duplex R outine Bruit 01/12/2017 4:01 PM EDT [facility] Work Phone: End: 03-10-2018 Carotid Duplex Carotid Duplex Routine Bruit 1 Occurrences starting 01/08/2017 until 03/10/2018 [facility] Work Phone: End: 06-26-2018 Cholesterol Lipid Panel Routine Pure hypercholesterolemia 1 Occurrences starting 06/26/2017 until 06/26/2018 [facility] End: 06-26-2018 Complete blood count (hemogram) panel - Blood by Automated count CBC Routine Essential hypertension 1 Occurrences starting 06/26/2017 until 06/26/2018 [facility] End: 06-27-2019 Complete blood count with white cell differential, manual CBC and Differential Routine Benign essential hypertension 1 Occurrences starting 11/26/2018 until 06/27/2019 [facility] Comment on above: 1 Occurrences starting 11/26/2018 until 06/27/2019 End: 06-16-2020 Complete blood count with white cell differential, manual CBC and Differential Lab Routine Benign essential hypertension 1 Occurrences starting 06/16/2019 until 06/16/2020 [facility] Comment on above: 1 Occurrences starting 06/16/2019 until 06/16/2020 End: 07-28-2021 Complete blood count with white cell differential, manual CBC and Differential Lab Routine Benign essential hypertension 1 Occurrences starting 07/28/2020 until 07/28/2021 [facility] Comment on above: 1 Occurrences starting 07/28/2020 until 07/28/2021 End: 06-27-2019 Comprehensive metabolic 2000 panel Comprehensive Metabolic Panel Routine Benign essential hypertension 1 Occurrences starting 11/26/2018 until 06/27/2019 [facility] Comment on above: 1 Occurrences starting 11/26/2018 until 06/27/2019 End: 06-16-2020 Comprehensive metabolic 2000 panel Comprehensive Metabolic Panel Lab Routine Benign essential hypertension 1 Occurrences starting 06/16/2019 until 06/16/2020 [facility] Comment on above: 1 Occurrences starting 06/16/2019 until 06/16/2020 End: 07-28-2021 Comprehensive metabolic 2000 panel Comprehensive Metabolic Panel Lab Routine Benign essential hypertension 1 Occurrences starting 07/28/2020 until 07/28/2021 [facility] Comment on above: 1 Occurrences starting 07/28/2020 until 07/28/2021 End: 06-26-2018 Comprehensive metabolic panel [AGGREGATE] Comprehensive Metabolic Panel Routine Essential hypertension 1 Occurrences starting 06/26/2017 until 06/26/2018 [facility] End: 01-16-2019 Echocardiogram complete Echocardiogram complete Routine Dyspnea on exertion 1 Occurrences starting 01/15/2018 until 01/16/2019 [facility] Comment on above: 1 Occurrences starting 01/15/2018 until 01/16/2019 End: 06-27-2019 Lipid 1996 panel Lipid Panel Routine Mixed hyperlipidemia 1 Occurrences starting 11/26/2018 until 06/27/2019 [facility] Comment on above: 1 Occurrences starting 11/26/2018 until 06/27/2019 End: 06-16-2020 Lipid 1996 panel Lipid Panel Lab Routine Mixed hyperlipidemia 1 Occurrences starting 06/16/2019 until 06/16/2020 [facility] Comment on above: 1 Occurrences starting 06/16/2019 until 06/16/2020 End: 07-28-2021 Lipid 1996 panel Lipid Panel Lab Routine Benign essential hypertension 1 Occurrences starting 07/28/2020 until 07/28/2021 [facility] Comment on above: 1 Occurrences starting 07/28/2020 until 07/28/2021 End: 06-26-2018 Microalbumin, Urine, Random Microalbumin, Urine, Random Routine Essential hypertension 1 Occurrences starting 06/26/2017 until 06/26/2018 [facility] End: 06-27-2019 Thyrotropin Qn TSH with Reflex Free T4 Routine Benign essential hypertension 1 Occurrences starting 11/26/2018 until 06/27/2019 [facility] Comment on above: 1 Occurrences starting 11/26/2018 until 06/27/2019 End: 06-26-2018 TSH TSH Routine Hypothyroidism (acquired) 1 Occurrences starting 06/26/2017 until 06/26/2018 [facility] End: 06-16-2020 TSH Qn TSH with Reflex Free T4 Lab Routine Subclinical hypothyroidism 1 Occurrences starting 06/16/2019 until 06/16/2020 [facility] Comment on above: 1 Occurrences starting 06/16/2019 until 06/16/2020 End: 07-28-2021 TSH Qn TSH with Reflex Free T4 Lab Routine Benign essential hypertension 1 Occurrences starting 07/28/2020 until 07/28/2021 [facility] Comment on above: 1 Occurrences starting 07/28/2020 until 07/28/2021 Immunizations Immunization Date Immunization Notes Care Provider Derrick gomez 06-14-2020 Moderna SARS-CoV-2 Vaccination Brand on [facility] 05-17-2020 Moderna SARS-CoV-2 Vaccination Brand on [facility] 01-28-2020 Seasonal, quadrivale nt, recombinant, injectable influenza vaccine, preservative free [facility] 12-08-2019 diphtheria, tetanus toxoids and acellular pertussis vaccine, unspecified formulation [facility] 12-08-2019 tetanus toxoid, redu cielo diphtheria toxoid, and acellular pertussis vaccine, adsorbed [facility] 12-27-2017 influenza, high dose seasonal, preservative-free; Translations: [INFLUENZA IIV3 HIGH DOSE 65 AND OLDER] [facility] 03-02-2015 influenza virus vacc ine, unspecified formulation Ceasar Prykhodko [facility] 03-02-2015 influenza, injectabl e, quadrivalent, preservative free [facility] 03-02-2015 pneumococcal conjuga te vaccine, 13 valent [facility] 03-02-2015 pneumococcal polysac charide vaccine, 23 valent Ceasar Prykhodko [facility] 03-17-2002 influenza virus vacc ine, unspecified formulation [facility] Payers Date Payer Category Payer Self-pay 2015 Unknown [id number] 2015 Unknown [employer] A[employer] [id number] 2015-Present [id number] 2015 Unknown AARP A[employer] CI[employer] [id number] 2015-Present [phone] [address] [place] [address] [id number] 2000 Medicare [id number] 2000 Medicare MEDICARE MEDICAR E PART A & B [id number] 2000-Present [place] [id number] 2000 Medicare [id number] 2000 Medicare MEDICARE MEDICAR E PART A & B [id number] 2000-Present [phone] CGS [id number] PART A CLAIMS [address] [address] [place] [address] [id number] 2000 Unknown xxxxxxxxxxx [id number] 1935 Unknown [id number] 1935 Unknown [id number] 1935 Unknown [id number] 1935 Unknown [id number] 1935 Unknown [id number] Medicare xxxxxxxxxx [id number] Unknown [id number] Social History Date Type Detail Facility Start: 12-13-2016 End: 06-26-2017 Tobacco smoking status NHIS Never smoker [facility] Start: 1935 Sex Assigned At Not on file [facility] Work Phone: Start: 01-06-2016 Alcohol Comment very seldom [facility] Start: 06-26-2017 End: 01-13-2019 Alcohol intake Current drinker of alcohol (finding) [facility] Start: 12-18-2018 End: 07-28-2020 History SDOH Social Connections Phone 3 [facility] Start: 12-18-2018 End: 12-08-2019 History SDOH Food Worry 1 [facility] Start: 12-13-2016 End: 01-15-2020 Tobacco use and exposure Never used [facility] Start: 01-15-2020 End: 07-28-2020 Alcohol intake Ex-drinker (finding) [facility] Start: 12-08-2019 History SDOH Physica l Activity [facility] Start: 12-08-2019 History SDOH Education 14 [facility] Start: 12-08-2019 History SDOH Financial 5 [facility] Start: 12-08-2019 End: 07-28-2020 History SDOH IPV Fear 2 [facility] Start: 06-28-2020 End: 07-28-2020 Exposure to SARS-CoV-2 (event) Not sure [facility] Start: 06-26-2017 End: 07-28-2020 Alcohol intake [facility] Note 09-21-2020 Telephone Encounter - Shante Hargrove LPN - 09/21/2020 4:05 PM EDT Note Date & Type Note Facility 09-21-2020 Miscellaneous Notes Na called for a refill Pending Prescriptions: Disp Refills lisinopriL (PRINIVIL,ZESTRIL) 20 MG tab*3 Sig: Take 1 (one) tablet (20 mg total) by mouth daily . metoprolol tartrate (LOPRESSOR) 50 MG tab*180 ta*3 Sig: Take 1 (one) tablet (50 mg total) by mouth 2 (two) times a day . mirtazapine (REMERON) 30 MG tablet 90 tab*3 Sig: Take 1 (one) tablet (30 mg total) by mouth nightly . Last refill was 11/18/2019 Last appt 07/28/2020 Upcoming appt 01/31/2021 Please send to [facility] - [address] [address] - [address] [facility] [address] [facility] [place] [address] [facility] [address] Please advise documented in this encounter [facility] Telephone encounter Note 11-09-2017 Telephone Encounter - Theresa Berg MA - 11/09/2017 9:59 AM EDT Note Date & Type Note Facility 11-09-2017 Telephone encounter Note Form atting of this note might be different from the original. Second VM left for pt. [facility] Note 11-09-2017 Telephone Encounter - Theresa Berg MA - 11/09/2017 9:59 AM EDTTelephone Encounter - Theresa Berg MA - 11/07/2017 8:43 AM EDT Note Date & Type Note Facility 11-09-2017 Miscellaneous Notes Formattin g of this note might be different from the original. Second VM left for pt. Left pt a VM asking her to give our office a call back in regard to a medication refill request that we received. Medication requested; lisinopril 20 mg tab. documented in this encounter [facility] Telephone encounter Note 11-07-2017 Telephone Encounter - Theresa Berg MA - 11/07/2017 8:43 AM EDT Note Date & Type Note Facility 11-07-2017 Telephone encounter Note Form atting of this note might be different from the original. Left pt a VM asking her to give our office a call back in regard to a medication refill request that we received. Medication requested; lisinopril 20 mg tab. [facility] Evaluation note Note Date & Type Note Facility Evaluation note Diagnosis Benign essential hypertension Essential hypertension, benign Chronic combined systolic and diastolic congestive heart failure (HCC) Insomnia, unspecified type documented in this encounter [facility] Assessments Diagnosis Essential hypertension - Ana cecile Unspecified essential hypertension Hypothyroidism (acquired) Unspecified hypothyroidism Pure hypercholesterolemia Diagnosis Hearing loss due to cerumen impaction, bilateral - Primary Presbycusis, unspecified lat erality Diagnosis Bruit Other symptoms involving cardiovascular system Diagnosis Bruit - Primary Other symptoms involving cardiovascular system 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 Dilated cardiomyopathy (HCC) Other primary cardiomyopathies Essential hypertension Unspecified essential hypertension Left carotid bruit Diagnosis Routine lab draw - Primary Essential hypertension Unspecified essential hypertension Pure hypercholesterolemia Hypothyroidism (acquired) Unspecified hypothyroidism Diagnosis Benign essential hypertensio n - Primary Essential hypertension, benign Mixed hyperlipidemia Subclinical hypothyroidism Other specified acquired hypothyroidism Chronic combined systolic an d diastolic congestive heart failure (HCC) Need for influenza vaccinati on Need for prophylactic vaccination and inoculation against influenza Diagnosis Congestive heart failure, un specified HF chronicity, unspecified heart failure type (HCC) - Primary Dyspnea on exertion Other dyspnea and respiratory abnormality 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 Benign essential hypertensio n Essential hypertension, benign Diagnosis Benign essential hypertension- Primary Essential hypertension, benign Mixed hyperlipidemia Chronic combined systolic and diastolic congestive heart failure (HCC) Mood disorder (HCC) Unspecified episodic mood disorder Diagnosis Hearing loss due to cerumen impaction, bilateral - Primary Presbycusis, unspecified lat erality Diagnosis Sensorineural hearing loss, bilateral- Primary Sudden hearing loss, unspecified laterality Diagnosis Hearing loss due to cerumen impaction, bilateral- Primary Sensorineural hearing loss, bilateral Diagnosis Cardiomyopathy, unspecified type (HCC)- Primary Chronic combined systolic and diastolic congestive heart failure (HCC) Mixed hyperlipidemia Benign essential hypertension Essential hypertension, benign Diagnosis Benign essential hypertension Essential hypertension, benign Chronic combined systolic and diastolic congestive heart failure (HCC) Mixed hyperlipidemia Subclinical hypothyroidism Other specified acquired hypothyroidism Insomnia, unspecified type Diagnosis Bruit of left carotid artery- Primary Chronic combined systolic and diastolic congestive heart failure (HCC) Mixed hyperlipidemia Nonrheumatic aortic valve insufficiency Benign essential hypertension Essential hypertension, benign Left carotid bruit Diagnosis Bruit of left carotid artery Diagnosis General medical exam- Primary Unspecified general medical examination At low risk for fall Need for vaccination Need for prophylactic vaccination and inoculation against unspecified single disease Diagnosis Benign essential hypertension- Primary Essential hypertension, benign Chronic combined systolic and diastolic congestive heart failure (HCC) Mixed hyperlipidemia Instructions * Patient Instructions - David Zuniga MD - 12/27/2017 10:59 AM EDT Formatting of this note may be different from the original. Problem List Items Addressed This Visit Unprioritized Benign essential hypertension - Primary Stable, continue meds, increase activity as can tolerate, limit salt, and watch diet. Continue to monitor BP at home as instructed. Bring blood pressure log and cuff to next visit. Please check BP at home, in the evening before bed. Have sit in a chair, back flat against chair back, feet flat on the floor, legs uncrossed, arm at the level of your heart. Make sure use the same arm every time for the check. Put the cuff or machine on your arm/wrist and then wait 5-10 minutes before having it take your pressure. IF remains high then wait another 5 minutes before checking. If high after 3 checks spaced 5 minutes apart then please average numbers and right that down as your value. Do this 3 nights a week and bring log to next visit with your machine. Relevant Medications lisinopril (PRINIVIL,ZESTRIL) 20 MG tablet metoprolol tartrate (LOPRESSOR) 50 MG tablet Subclinical hypothyroidism Continue to watch for new symptoms. Relevant Medications metoprolol tartrate (LOPRESSOR) 50 MG tablet Mixed hyperlipidemia Watch diet, and increase activity as able to tolerate. CHF (congestive heart failure) (HCC) Continue meds as prescribed, watch diet, and increase activity as able to tolerate. Relevant Medications lisinopril (PRINIVIL,ZESTRIL) 20 MG tablet metoprolol tartrate (LOPRESSOR) 50 MG tablet in this encounter* Patient Instructions - Alfreda Gallegos CNP - 01/15/2018 10:25 AM EDT ECHO in this encounter* Patient Instructions* David Zuniga MD - 06/26/2018 11:07 AM EST Problem List Items Addressed This Visit Benign essential hypertension - Primary Chronic, Stable, continue meds, increase activity as can tolerate, limit salt, and watch diet. Continue to monitor BP at home as instructed. Bring blood pressure log and cuff to next visit. Please check BP at home, in the evening before bed. Have sit in a chair, back flat against chair back, feet flat on the floor, legs uncrossed, arm at the level of your heart. Make sure use the same arm every time for the check. Put the cuff or machine on your arm/wrist and then wait 5-10 minutes before having it take your pressure. IF remains high then wait another 5 minutes before checking. If high after 3 checks spaced 5 minutes apart then please average numbers and right that down as your value. Do this 3 nights a week and bring log to next visit with your machine. Relevant Orders CBC and Differential Comprehensive Metabolic Panel Microalbumin, Urine, Random TSH with Reflex Free T4 Mixed hyperlipidemia Chronic,not on meds, stable, watch diet, and increase activity as able to tolerate. Relevant Orders Lipid Panel CHF (congestive heart failure) (HCC) Chronic, stable, continue meds and care. Watch fluid and salt intake. Consider monitoring daily weight. Other Visit Diagnoses Mood disorder (HCC) Chronic, stop remeron, if symptoms return go back on it. If any referrals were placed at the time of your visit please allow 2 weeks for processing. If you haven't heard from anyone within 2 weeks please contact my office so we can look into the status of your referral. If you were given any labs today please ensure they are completed according to the directions given. Once labs are completed please allow 1-2 weeks for us to receive the results, review them, and letyou know what steps, if any, are needed next. If you haven't heard from us after that please call to inquire. If labs were ordered to be done PRIOR to your next visit we will discuss the results at the time ofyour office visit. If any procedures or imaging studies were ordered that must be prior authorized please give us 2 weeks to get them approved. Once approved someone should call you to schedule them or give you a date and time that they were scheduled for. If you haven't heard anything within 2 weeks of the office visit please call the office so we can look into their status. in this encounter* Patient Instructions* Ceasar Arce MD - 12/05/2018 4:15 PM EDT Learning About Hearing Aids What is a hearing aid? A hearing aid makes sounds louder. It can help some people with hearing problems to hear better. Hearing aids do not restore normal hearing. But they can make it easier to communicate. There are different types of hearing aids. Analog adjustable hearing aids make both speech and other sounds louder in the same amount. Your doctor can adjust them to fit your hearing. You can control loudness. These cost less than the other types of hearing aids. Analog programmable hearing aids have a computer chip that your doctor can program to fit your hearing. They can be set up for different places or events. For example, you can have a setting for quiet one-on-one conversations and another for noisy times like a dinner constitution party in a restaurant. You can change hearing programs with a remote control. Digital programmable hearing aids can adjust themselves to work best where you are at any time. Youalso have more choices in setting them up than with analog hearing aids. Bone-anchored hearing systems transmit sound through the skull. This type of hearing aid is permanently implanted in the skull bone. It may work for people who do not benefit from other types of hearing aids. There are also different styles of hearing aids. A jjllxy-nde-iqr (BTE) hearing aid connects to a plastic ear mold that fits inside the outer ear. BTE hearing aids are used for all levels of hearing loss, especially very severe hearing loss. They may be better for children for safety and growth reasons. Poorly fitting BTE ear molds or a buildup of earwax may cause a whistling sound (feedback). An in-the-ear (ITE) hearing aid fits in the outer part of the ear. It can be used by people with mild to severe hearing loss. ITE hearing aids can be used with other hearing devices, such as a telecoil that improves hearing during phone calls. ITE hearing aids can be damaged by earwax and fluid draining from the ear. Their small size may be hard for some people to handle. They are not often used in children because the case must be replaced as the child grows. An wp-ptn-impkm (ITC) hearing aid fits into the ear canal. ITC hearing aids are used by people withmild to moderate hearing loss. They are made to fit the shape and the size of your ear canal. They can be damaged by earwax and fluid draining from the ear. Their small size may be hard for some people to handle. They are not made for children. With a bone-anchored hearing system, the sound processor sits behind the ear. No part of the systemis within the ear itself. You have some options if you have a hearing problem and are thinking about getting hearing aids. You can go to your doctor or an hand coremaker. He or she will do a hearing test and help you decide which type and style of hearing aid may be best for you. But, if your hearing loss is mild to moderate, you might consider buying a good quality xtzl-dke-mawwkel hearing aid, which may be called a personal sound amplification product, or PSAP. These are available without a hearing test. What else should I know about hearing aids? Find out if your insurance covers hearing aids. They can be expensive. Different types of hearing aids come with different costs. Also find out about a warranty or return policy in case you are not happy with your hearing aids. Follow-up care is a south part of your treatment and safety. Be sure to make and go to all appointments, and call your doctor if you are having problems. It's also a good idea to know your test resultsand keep a list of the medicines you take. Where can you learn more? Log into your personal health record on https://[employer] and enter K597 in the "Education" box to learn more about "Learning About Hearing Aids." Current as of: February 10, 2018 Content Version: [id number] [employer]. Care instructions adapted under license by your healthcare professional. If you have questions about a medical condition or this instruction, always ask your healthcare professional. [employer] disclaims any warranty or liability for your use of this information. documented in this encounter* Patient Instructions* Danii Chen RN - 01/13/2019 10:29 AM EDT .How to contact your Care Team: Provider: Rubin Chirinos MD [facility] Nurse: Danii Chen RN In case of an emergency please call 911. REFILLS: When in need for refills please call your care team or the office at [phone]. Please include medication name, pharmacy name, and specify 30-day or 90-day supply. Please check with your pharmacy within 24 hours of request for your refill. You must follow up as directed to continue current refills. Thank you! documented in this encounter* Patient Instructions* David Zuniga MD - 06/16/2019 10:32 AM EST Problem List Items Addressed This Visit Endocrine Subclinical hypothyroidism Chronic, stable, continue med as instructed. Relevant Orders TSH with Reflex Free T4 Cardiovascular and Mediastinum Benign essential hypertension - Primary Chronic, Stable, continue meds, increase activity as can tolerate, limit salt, and watch diet. Continue to monitor BP at home as instructed. Bring blood pressure log and cuff to next visit. Relevant Orders CBC and Differential Comprehensive Metabolic Panel Microalbumin/Creatinine Ratio, UR Random CHF (congestive heart failure) (HCC) Chronic, stable, continue care and monitor symptoms as instructed. See Mandeep as scheduled. Other Mixed hyperlipidemia Chronic, stable, Continue meds as prescribed, watch diet, and increase activity as able to tolerate. Relevant Orders Lipid Panel Insomnia Chronic, not quite controlled will go up to 1 whole pill daily. Relevant Medications mirtazapine (REMERON) 30 MG tablet If any referrals were placed at the time of your visit please allow 2 weeks for processing. If you haven't heard from anyone within 2 weeks please contact my office so we can look into the status of your referral. If you were given any labs today please ensure they are completed according to the directions given. Once labs are completed please allow 1-2 weeks for us to receive the results, review them, and letyou know what steps, if any, are needed next. If you haven't heard from us after that please call to inquire. If labs were ordered to be done PRIOR to your next visit we will discuss the results at the time ofyour office visit. If any procedures or imaging studies were ordered that must be prior authorized please give us 2 weeks to get them approved. Once approved someone should call you to schedule them or give you a date and time that they were scheduled for. If you haven't heard anything within 2 weeks of the office visit please call the office so we can look into their status. documented in this encounter* Patient Instructions* Helen Alonso MA - 01/15/2020 2:24 PM EDT How to contact your Care Team: Provider: Rubin Chirinos MD [facility] Nurse: Danii Chen RN documented in this encounter* Patient Instructions* David Zuniga MD - 12/08/2019 11:47 AM EDT Problem List Items Addressed This Visit None Visit Diagnoses General medical exam - Primary At low risk for fall Need for vaccination Relevant Medications diptheria, tetanus toxoid, acellular pertusssis (ADACEL) 2 Lf-(2.5-5-3-5 mcg)- 5Lf/0.5 mL injection Other Relevant Orders Tdap vaccine greater than or equal to 7yo IM If any referrals were placed at the time of your visit please allow 2 weeks for processing. If you haven't heard from anyone within 2 weeks please contact my office so we can look into the status of your referral. If you were given any labs today please ensure they are completed according to the directions given. Once labs are completed please allow 1-2 weeks for us to receive the results, review them, and letyou know what steps, if any, are needed next. If you haven't heard from us after that please call to inquire. If labs were ordered to be done PRIOR to your next visit we will discuss the results at the time ofyour office visit. If any procedures or imaging studies were ordered that must be prior authorized please give us 2 weeks to get them approved. Once approved someone should call you to schedule them or give you a date and time that they were scheduled for. If you haven't heard anything within 2 weeks of the office visit please call the office so we can look into their status. Chair Rise Exercise What it does: Strengthens the muscles in your thighs & buttocks. Goal: To do this exercise without using your hands as you become stronger. How to do it: 1. Sit toward the front of a sturdy chair with your knees bent & feet flat on the floor shoulder-width apart 2. Rest your hands lightly on the seat on either side of you, keeping your back & neck straight& and chest slightly forward. 3. Breathe in slowly. Lean forward & feel your weight on the front of your feet. 4. Breathe out and slowly stand up, using your hands as little as possible. 5. Pause for a full breath in & out. 6. Breathe in as you slowly sit down. Do not let yourself collapse back down into the chair. Rather, control your lowering as much as possible. 7. Breathe out. Repeat 10-15 times. If this number is too hard for you when you first start practicing this exercise, begin with fewer and work up to this number. Rest for a minute & then do a final set of 10-15. For detailed instructions, please visit the CDC website at http://www.cdc.gov/steadi/pdf/chair_rise_exercise-a.pdf documented in this encounter* Patient Instructions* David Zuniga MD - 07/28/2020 2:14 PM EDT Problem List Items Addressed This Visit Cardiovascular and Mediastinum Benign essential hypertension - Primary Chronic, Stable, continue meds, increase activity as can tolerate, limit salt, and watch diet. Continue to monitor BP at home as instructed. Bring blood pressure log and cuff to next visit. Relevant Orders Comprehensive Metabolic Panel CBC and Differential Lipid Panel Microalbumin/Creatinine Ratio, UR Random TSH with Reflex Free T4 CHF (congestive heart failure) (HCC) Chronic, stable, no flare, no problem today, will monitor, care per Cardio as scheduled. Other Mixed hyperlipidemia Chronic, stable, Continue meds as prescribed, watch diet, and increase activity as able to tolerate. If any referrals were placed at the time of your visit please allow 2 weeks for processing. If you haven't heard from anyone within 2 weeks please contact my office so we can look into the status of your referral. If you were given any labs today please ensure they are completed according to the directions given. Once labs are completed please allow 1-2 weeks for us to receive the results, review them, and letyou know what steps, if any, are needed next. If you haven't heard from us after that please call to inquire. If labs were ordered to be done PRIOR to your next visit we will discuss the results at the time ofyour office visit. If any procedures or imaging studies were ordered that must be prior authorized please give us 2 weeks to get them approved. Once approved someone should call you to schedule them or give you a date and time that they were scheduled for. If you haven't heard anything within 2 weeks of the office visit please call the office so we can look into their status. documented in this encounter Summary Purpose Family History No Family History Records FoundNo Family History Records FoundNo Family History Records FoundNo Family History Records Found Advance Directives No Advanced Directives Records FoundDocuments on File Type Date Recorded Patient [employer] Advance Directives and Living Will Documents on File Type Date Recorded Patient [employer] Advance Directives and Living Will Documents on File Type Date Recorded Patient [employer] Advance Directives and Livin g Will 02/03/2020 12:00 AM Documents on File Type Date Recorded Patient [employer] Advance Directives and Livin g Will 02/03/2020 12:00 AM History of Present Illness * David Zuniga MD - 06/26/2018 11:06 AM EST OFFICE VISIT PROGRESS NOTE HPI HTN/HLD/CHF - Says usually at home when checks it is running in the 110-130 over 60-80 range. Taking meds, tolerating well, no complaints. Doesn't monitor her weight, doesn't watch fluid, no major salt use. Tries to be active, more so in the summer. Sees Dr Chirinos yearly. Depression - Taking remeron, no complaints, not sure it does anything, has been feeling good lately. Never tried stopping it. The following portions of the patient's history were reviewed and updated as appropriate: allergies, current medications and problem list. The patient's surgical, family, and social history was reviewed and updated as appropriate. Review of Systems Review of Systems Constitutional: Negative for activity change and fatigue. Respiratory: Negative for chest tightness, shortness of breath and wheezing. Cardiovascular: Negative for chest pain and palpitations. Neurological: Negative for dizziness, weakness and numbness. Psychiatric/Behavioral: Negative for behavioral problems and dysphoric mood. The patient is not nervous/anxious. Vitals: 06/26/18 1056 06/26/18 1100 BP: (!) 158/84 129/77 BP Location: Left arm Left arm Patient Position: Sitting Sitting BP Cuff Size: Adult Adult Pulse: 93 66 Temp: 98.2 F (36.8 C) TempSrc: Oral SpO2: 95% 96% Weight: 56.8 kg (125 lb 3.2 oz) Height: 5' 3" Body mass index is 22.18 kg/m . Physical Exam Physical Exam Constitutional: She is oriented to person, place, and time. She appears well- developed and well-nourished. Cardiovascular: Normal rate, regular rhythm and normal heart sounds. Pulmonary/Chest: Effort normal and breath sounds normal. No respiratory distress. She has no wheezes. Neurological: She is alert and oriented to person, place, and time. Skin: Skin is warm. Psychiatric: She has a normal mood and affect. Nursing note and vitals reviewed. No data recorded Assessment/Plan Problem List Items Addressed This Visit Benign essential hypertension - Primary Chronic, Stable, continue meds, increase activity as can tolerate, limit salt, and watch diet. Continue to monitor BP at home as instructed. Bring blood pressure log and cuff to next visit. Please check BP at home, in the evening before bed. Have sit in a chair, back flat against chair back, feet flat on the floor, legs uncrossed, arm at the level of your heart. Make sure use the same arm every time for the check. Put the cuff or machine on your arm/wrist and then wait 5-10 minutes before having it take your pressure. IF remains high then wait another 5 minutes before checking. If high after 3 checks spaced 5 minutes apart then please average numbers and right that down as your value. Do this 3 nights a week and bring log to next visit with your machine. Relevant Orders CBC and Differential Comprehensive Metabolic Panel Microalbumin, Urine, Random TSH with Reflex Free T4 Mixed hyperlipidemia Chronic,not on meds, stable, watch diet, and increase activity as able to tolerate. Relevant Orders Lipid Panel CHF (congestive heart failure) (HCC) Chronic, stable, continue meds and care. Watch fluid and salt intake. Consider monitoring daily weight. Other Visit Diagnoses Mood disorder (HCC) Chronic, stop remeron, if symptoms return go back on it. Goals None If any referrals were placed at today's visit the patient was instructed to call the office if theyhavn't heard anything about the referral within 2 weeks of today's visit. For any new medications prescribed today, patient was educated about indications for the medication, how to take the medication and potential side effects of the medications. in this encounter* Ceasar Arce MD - 12/13/2016 6:01 PM EDT Formatting of this note may be different from the original. Subjective: Patient ID: Na Good is a 81 y.o. female. Chief Complaint Patient presents with Hearing Loss Pt req to see Dr JIGNESH Aguilar PT HPI kind referral for my evaluation of hearing problems. Patient is accompanied by her who helps with medical information collection. Reportedly patient had been followed up by Dr. Lamar on the regular basis for cerumen impaction cleaning. She had recently noticed worsening of her hearing but is not sure on which ear. This is not associated with dizziness, tinnitus or other neurologic abnormalities. The following portions of the patient's history were reviewed and updated as appropriate: allergies, current medications, past family history, past medical history, past social history, past surgicalhistory and problem list. Review of Systems Constitutional: Negative. Negative for activity change, appetite change, chills, diaphoresis, fatigue and fever. HENT: Positive for hearing loss. Negative for congestion, dental problem, drooling, ear discharge, ear pain, facial swelling, mouth sores, nosebleeds, postnasal drip, rhinorrhea, sinus pressure, sneezing, sore throat, tinnitus, trouble swallowing and voice change. Eyes: Negative. Negative for photophobia, pain, discharge, redness, itching and visual disturbance. Respiratory: Negative. Negative for apnea, cough, choking, chest tightness, shortness of breath, wheezing and stridor. Cardiovascular: Negative. Negative for chest pain, palpitations and leg swelling. Gastrointestinal: Negative. Negative for abdominal distention, abdominal pain, anal bleeding, bloodin stool, constipation, diarrhea, nausea and rectal pain. Genitourinary: Negative. Musculoskeletal: Negative. Negative for arthralgias, gait problem, neck pain and neck stiffness. Skin: Negative. Negative for color change, pallor, rash and wound. Neurological: Negative for dizziness, tremors, seizures, syncope, facial asymmetry, speech difficulty, weakness, light-headedness, numbness and headaches. Objective:BP (!) 167/81 Pulse 69 Ht 5' 3" Wt 57.5 kg (126 lb 11.2 oz) SpO2 99% BMI 22.44 kg/m2 Physical Exam Constitutional: She is oriented to person, place, and time. She appears well- developed and well-nourished. No distress. HENT: Head: Normocephalic and atraumatic. Head is without abrasion, without contusion and without laceration. Right Ear: Tympanic membrane, external ear and ear canal normal. No drainage, swelling or tenderness. No mastoid tenderness. Tympanic membrane is not perforated. Tympanic membrane mobility is normal.No middle ear effusion. Decreased hearing is noted. Left Ear: Tympanic membrane and external ear normal. No drainage, swelling or tenderness. No mastoid tenderness. Tympanic membrane is not perforated. Tympanic membrane mobility is normal. No middle ear effusion. Decreased hearing is noted. Nose: Rhinorrhea and septal deviation present. No mucosal edema, nose lacerations, sinus tenderness, nasal deformity or nasal septal hematoma. No epistaxis. No foreign bodies. Right sinus exhibits nomaxillary sinus tenderness and no frontal sinus tenderness. Left sinus exhibits no maxillary sinus t enderness and no frontal sinus tenderness. Mouth/Throat: Uvula is midline, oropharynx is clear and moist and mucous membranes are normal. She does not have dentures. No oral lesions. No trismus in the jaw. Normal dentition. No dental abscesses, uvula swelling, lacerations or dental caries. No oropharyngeal exudate, posterior oropharyngeal edema, posterior oropharyngeal erythema or tonsillar abscesses. Bilateral moderate cerumen impaction cleaned. Eyes: Conjunctivae and EOM are normal. Pupils are equal, round, and reactive to light. Right eye exhibits no discharge. Left eye exhibits no discharge. No scleral icterus. Neck: Trachea normal, normal range of motion and phonation normal. Neck supple. No JVD present. No tracheal deviation present. No thyroid mass and no thyromegaly present. Cardiovascular: Normal rate, regular rhythm, normal heart sounds and intact distal pulses. Pulmonary/Chest: No stridor. No respiratory distress. She has no wheezes. She has no rales. She exhibits no tenderness. Abdominal: Soft. Bowel sounds are normal. She exhibits no distension. There is no tenderness. Musculoskeletal: Normal range of motion. Lymphadenopathy: She has no cervical adenopathy. Right cervical: No superficial cervical, no deep cervical and no posterior cervical adenopathy present. Left cervical: No superficial cervical, no deep cervical and no posterior cervical adenopathy present. Neurological: She is alert and oriented to person, place, and time. No cranial nerve deficit. Coordination normal. Skin: Skin is warm and dry. No rash noted. She is not diaphoretic. No erythema. Psychiatric: She has a normal mood and affect. Her behavior is normal. Judgment and thought contentnormal. Patient required cerumen disimpaction by MD due to the consistency of the wax and external ear canal shape. With the patient in a slightly reclained position and head steady on the chair rest, utilizing the microscope, completely blocking the external earcanal hard impacted cerumen then was removed from both ear canals using ear loop, forceps and #5 suction tip. The canals and tympanic membranes then were visualized and found to be without acute/chronic pathology, laceration, ear drum perforation or translucent middle ear pathology. Hearing and feeling of pressure subjectively improved instantly. Patient tolerated procedure well. Manipulated Ceasar Arce MD. Assessment/Plan: Bilateral symmetric mild sensorineural hearing loss. Cerumen impaction cleaning, information and instructions provided. Patient was advised to follow-up with me on the regular basis every 6 months for cerumen disimpaction and possible hearing amplification in case of significant worsening of her hearing. SNOMED CT(R) 1. Hearing loss due to cerumen impaction, bilateral BILATERAL HEARING LOSS 2. Presbycusis, unspecified laterality PRESBYCUSIS Ambulatory referral to ENT No orders of the defined types were placed in this encounter. in this encounter* Kriss Marcelo AuD - 12/04/2018 11:34 AM EDT [facility] [address] [address] Name: Na Good : 1935 Date: 12/04/18 History & Purpose of Evaluation: Na Good was seen today for audiologic evaluation at the kind request of Dr. Arce. Ms. Good was accompanied by her . She reports a sudden decrease in hearing at the right ear. She denies any antecedent events. Ms. Good's daughter purchased an amplifier for her right ear in whichshe feels has helped her hear better. She has no concerns for her hearing at the left ear. Please see below for other pertinent case history. Otologic Symptoms R L Noise Exposure Y N Medical Y N Hearing Loss [x] [] Occupational [] [x] Hypertension [x] [] Tinnitus [] [] Recreational [] [x] Diabetes [] [x] Otalgia [] [] [] [x] Hypercholesterolemia [] [x] Otorrhea [] [] Heart Disease [x] [] Aural Fullness [] [] Family History [] [x] Stroke [] [x] Meniere s Disease [] [] Cancer [] [x] Y Flori Dickens/Les. Skills Ear Surgery R L Vertigo [] [x] Appropriate [x] [] PE Tubes [] [] Dizziness [] [x] In Therapy [] [x] Mastoidectomy [] [] Imbalance [] [x] Social Acoustic Neuroma [] [] Vestibular Rehab [] [x] Depression [] [x] Tympanoplasty [] [] Other: Results: [employer] Conduction Audiometry: Right: Mild sloping to moderate from 500-6000 Hz sloping to a moderately-severe sensorineural hearing loss. Left: Mild sensorineural hearing loss from 250-4000 Hz sloping to moderate to moderately-severe sensorineural hearing loss. Asymmetry noted (right ear worse) at 500-4000 Hz (10-20 dB difference). Speech Audiometry: Word recognition is good at both ears when assessed at above a normal conversational loudness level. Immittance Audiometry: Normal middle ear pressure and tympanic membrane mobility, bilaterally. Jerger Type A. Slight negative pressure at the left ear, but still within normal range. Distortion Product Otoacoustic Emissions (DPOAE; 1500-6k Hz): Did not assess. Impression: Today's results reveal a significant asymmetrical sensorineural hearing loss (right ear worse) thatis expected to interfere with communication in most, if not all, listening situations. Middle ear testing is consistent with normal middle ear function bilaterally. Ms. Good is an excellent hearing aid candidate for the right ear and a borderline hearing aid candidate for the left ear. I discussedwith Ms. Good that a hearing aid would be more appropriate for her hearing loss than an amplifier as it is prescribed to her hearing loss. I advised Ms. Good to schedule an appointment for hearing aid counseling. Recommendations: Follow up with Dr. Arce. Otologic clearance for hearing aid use at Dr. Arce's discretion.[place] for hearing aid fitting pending otologic clearance at patient's discretion. Use of good communication strategies such as [id number] communication and reduction of background noise when possible. The above was explained to the patient and or their guardian and they expressed understanding. Electronically signed by: Clari Borden, CCC-A 12/04/18 11:34 AM documented in this encounter* Ceasar Arce MD - 12/05/2018 4:16 PM EDT Subjective: Patient ID: Na Good is a 83 y.o. female. Chief Complaint Patient presents with Hearing Loss left ear HPI patient, known to me for ear problems is here today upon her request due to sudden hearing losson the left ear. She had woke up one week. Ago with not being able to hear the radio on the left side. This condition had spontaneously improved and patient states that her hearing is almost equal onboth years now with some fullness and pressure in both external ear canals. This is not associated with dizziness, tinnitus or other neurologic abnormalities. The following portions of the patient's history were reviewed and updated as appropriate: allergies, current medications, past family history, past medical history, past social history, past surgicalhistory and problem list. Review of Systems Constitutional: Negative. Negative for activity change, appetite change, chills, diaphoresis, fatigue and fever. HENT: Positive for hearing loss. Negative for congestion, dental problem, drooling, ear discharge, ear pain, facial swelling, mouth sores, nosebleeds, postnasal drip, rhinorrhea, sinus pressure, sneezing, sore throat, tinnitus, trouble swallowing and voice change. Eyes: Negative. Negative for photophobia, pain, discharge, redness, itching and visual disturbance. Respiratory: Negative. Negative for apnea, cough, choking, chest tightness, shortness of breath, wheezing and stridor. Cardiovascular: Negative. Negative for chest pain, palpitations and leg swelling. Gastrointestinal: Negative. Negative for abdominal distention, abdominal pain, anal bleeding, bloodin stool, constipation, diarrhea, nausea and rectal pain. Genitourinary: Negative. Musculoskeletal: Negative. Negative for arthralgias, gait problem, neck pain and neck stiffness. Skin: Negative. Negative for color change, pallor, rash and wound. Neurological: Negative for dizziness, tremors, seizures, syncope, facial asymmetry, speech difficulty, weakness, light-headedness, numbness and headaches. Objective:BP (!) 167/80 (BP Location: Left arm, Patient Position: Sitting, BP Cuff Size: Adult) Pulse 74 Ht 5' 3" Wt 57.4 kg (126 lb 9.6 oz) SpO2 98% BMI 22.43 kg/m Physical Exam Constitutional: She is oriented to person, place, and time. She appears well- developed and well-nourished. No distress. HENT: Head: Normocephalic and atraumatic. Head is without abrasion, without contusion and without laceration. Right Ear: Tympanic membrane, external ear and ear canal normal. No drainage, swelling or tenderness. No mastoid tenderness. Tympanic membrane is not perforated. Tympanic membrane mobility is normal.No middle ear effusion. Decreased hearing is noted. Left Ear: Tympanic membrane and external ear normal. No drainage, swelling or tenderness. No mastoid tenderness. Tympanic membrane is not perforated. Tympanic membrane mobility is normal. No middle ear effusion. Decreased hearing is noted. Nose: Rhinorrhea and septal deviation present. No mucosal edema, nose lacerations, sinus tenderness, nasal deformity or nasal septal hematoma. No epistaxis. No foreign bodies. Right sinus exhibits nomaxillary sinus tenderness and no frontal sinus tenderness. Left sinus exhibits no maxillary sinus t enderness and no frontal sinus tenderness. Mouth/Throat: Uvula is midline, oropharynx is clear and moist and mucous membranes are normal. She does not have dentures. No oral lesions. No trismus in the jaw. Normal dentition. No dental abscesses, uvula swelling, lacerations or dental caries. No oropharyngeal exudate, posterior oropharyngeal edema, posterior oropharyngeal erythema or tonsillar abscesses. Bilateral moderate cerumen impaction cleaned. Eyes: Pupils are equal, round, and reactive to light. Conjunctivae and EOM are normal. Right eye exhibits no discharge. Left eye exhibits no discharge. No scleral icterus. Neck: Trachea normal, normal range of motion and phonation normal. Neck supple. No JVD present. No tracheal deviation present. No thyroid mass and no thyromegaly present. Cardiovascular: Normal rate, regular rhythm, normal heart sounds and intact distal pulses. Pulmonary/Chest: No stridor. No respiratory distress. She has no wheezes. She has no rales. She exhibits no tenderness. Abdominal: Soft. Bowel sounds are normal. She exhibits no distension. There is no tenderness. Musculoskeletal: Normal range of motion. Lymphadenopathy: She has no cervical adenopathy. Right cervical: No superficial cervical, no deep cervical and no posterior cervical adenopathy present. Left cervical: No superficial cervical, no deep cervical and no posterior cervical adenopathy present. Neurological: She is alert and oriented to person, place, and time. No cranial nerve deficit. Coordination normal. Skin: Skin is warm and dry. No rash noted. She is not diaphoretic. No erythema. Psychiatric: She has a normal mood and affect. Her behavior is normal. Judgment and thought contentnormal. Patient required cerumen disimpaction by MD due to the consistency of the wax and external ear canal shape. CPT code 99691.50. With the patient in a slightly reclained position and head steady on the chair rest, utilizing the microscope, completely blocking the external earcanal hard impacted cerumen then was removed from both ear canals using ear loop, forceps and #5 suction tip. The canals and tympanic membranes then were visualized and found to be without acute/chronic pathology, laceration, ear drum perforation or translucent middle ear pathology. Hearing and feeling of pressure subjectively improved instantly. Patient tolerated procedure well. Manipulated Ceasar Arce MD. I had personally review the comprehensive hearing test results in [facility] and provided an interpretation to the patient. Indeed it confirmed ZENA symmetric down slopping increase of the CRISIS MANAGER thresholds, normal Type A tympanograms and decreased speech discrimination. 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 Information on the devices and referral to the hand coremaker arranged. Assessment/Plan: Bilateral symmetric mild sensorineural hearing loss. Cerumen impaction cleaning, information and instructions provided. Patient was advised to follow-up with me on the regular basis every 6 months for cerumen disimpaction and possible hearing amplification in case of significant worsening of her hearing. Medical clearance for bilateral hearing amplification provided. Patient and her expressed comprehensive understanding and are in agreement with our plan. SNOMED CT(R) 1. Hearing loss due to cerumen impaction, bilateral BILATERAL HEARING LOSS 2. Sensorineural hearing loss, bilateral SENSORINEURAL HEARING LOSS, BILATERAL No orders of the defined types were placed in this encounter. documented in this encounter* Rubin Chirinos MD - 01/13/2019 11:50 AM EDT OFFICE CONSULTATION NOTE [facility] [address] ([address]) [facility] [address] [facility] [id number] Physicians: David Zuniga MD Subjective: Na Good is a 83 y.o. female seen in the office today for Follow-up (Denies Chest pain,pressure,SOB,Swelling ) . HPI: The patient is a very pleasant 83-year-old female with past medical history significant for nonischemic cardiomyopathy diagnosed in 1999. Cardiac catheterization in 2000 demonstrated noncritical plaque disease with EF in the 20 to 25% range. She had an echocardiogram done last year that showed EF of approximately 45%. The patient denies any anginal type chest discomfort. Her chief complaint is fatigue. She still works over 3 hours a day in her yard. She denies any orthopnea, paroxysmal nocturnal dyspnea, syncope, or near syncope. She states her blood pressure is under much better control at home. She had carotidDopplers in 2017 that showed noncritical plaque disease. Assessment & Plan: CHF (congestive heart failure) (HCC) She has no congestive symptoms presently. She is diligent about sodium and fluid restriction. Continue current medical therapy. Mixed hyperlipidemia She is not on statin therapy. Lipids are followed through primary care. Cardiomyopathy (HCC) Her EF remains stable at around 45%. Benign essential hypertension She states her blood pressure is normally lower at home. She keeps a log. Continue current therapy. Follow Up Ordered: Return in about 1 year (around 01/14/2020). 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 TUBAL LIGATION Family History Problem Relation Age of Onset Cancer Mother Heart attack Father Social History Tobacco Use Smoking status: Never Smoker Smokeless tobacco: Never Used Substance Use Topics Alcohol use: Yes Alcohol/week: 1.0 standard drinks Types: 1 Glasses of wine per week Comment: very seldom Drug use: No Current Outpatient Medications Medication Sig Dispense Refill CALCIUM CARBONATE/VITAMIN D3 (CALCIUM 500 + D ORAL) Take by mouth 2 (two) times a day. lisinopril (PRINIVIL,ZESTRIL) 20 MG tablet Take 1 (one) tablet (20 mg total) by mouth daily . 90 tablet 3 metoprolol tartrate (LOPRESSOR) 50 MG tablet Take 1 (one) tablet (50 mg total) by mouth 2 (two) times a day . 180 tablet 3 mirtazapine (REMERON) 30 MG tablet Take 0.5 (one-half) tablet (15 mg total) by mouth nightly . 45 tablet 3 multivitamin (multivitamin) per tablet Take 1 tablet by mouth daily. vit C/vit E ac/lut/copper/zinc (PRESERVISION LUTEIN ORAL) Take 1 capsule by mouth daily . No current facility-administered medications for this visit. Allergies Allergen Reactions Cortisone Review of Systems Constitution: Positive for malaise/fatigue. Negative for diaphoresis, weight gain and weight loss. HENT: Negative for hearing loss, nosebleeds and tinnitus. Eyes: Negative for blurred vision and visual disturbance. Cardiovascular: Negative for chest pain, claudication, cyanosis, dyspnea on exertion, irregular heartbeat, leg swelling, near-syncope, orthopnea, palpitations, paroxysmal nocturnal dyspnea and syncope. Respiratory: Negative for hemoptysis, shortness of breath and snoring. Endocrine: Negative for cold intolerance and heat intolerance. Hematologic/Lymphatic: Does not bruise/bleed easily. Skin: Negative for flushing, poor wound healing and rash. Musculoskeletal: Negative for back pain, muscle weakness and myalgias. Gastrointestinal: Negative for abdominal pain, change in bowel habit, melena, nausea and vomiting. Genitourinary: Negative for decreased libido and hematuria. Neurological: Negative for loss of balance and numbness. Psychiatric/Behavioral: Negative for memory loss. The patient is not nervous/anxious. Overview of Problems Addressed: Problem Chf (Congestive Heart Failure) (Hcc) Sees Dr. Chirinos yearly. Mixed Hyperlipidemia Benign Essential Hypertension Cardiomyopathy (Hcc) nonischemic; EF 20-25% in 2000 increased to 40% in 2014 Objective: Physical Exam Constitutional: She is oriented to person, place, and time. She appears well- developed and well-nourished. HENT: Head: Normocephalic. Eyes: Pupils are equal, round, and reactive to light. Conjunctivae and EOM are normal. No scleral icterus. Neck: Normal range of motion. Neck supple. No JVD present. No tracheal deviation present. No thyromegaly present. Soft left carotid bruit. Cardiovascular: Normal rate, regular rhythm, S1 normal, S2 normal, normal heart sounds and intact distal pulses. Exam reveals no friction rub. No murmur heard. Pulmonary/Chest: Breath sounds normal. No respiratory distress. She has no wheezes. She has no rales. Abdominal: Soft. Bowel sounds are normal. She exhibits no distension and no mass. There is no hepatosplenomegaly. There is no tenderness. Musculoskeletal: Normal range of motion. General: Edema present. Comments: Superficial varicosities noted. Lymphadenopathy: She has no cervical adenopathy. Neurological: She is alert and oriented to person, place, and time. Skin: Skin is warm and dry. Psychiatric: She has a normal mood and affect. Her behavior is normal. Vitals: Vitals: 01/13/19 1115 BP: 140/71 BP Location: Left arm Patient Position: Sitting BP Cuff Size: Adult Pulse: 80 SpO2: 99% Weight: 56.7 kg (125 lb) Height: 5' 3" Orders Placed This Encounter ECG 12 Lead Thank you for allowing me to assist you in the cardiovascular care of this patient. Please don't hesitate to contact me if you have any questions regarding these thoughts. Rubin Chirinos MD documented in this encounter* David Zuniga MD - 06/16/2019 10:25 AM EST OFFICE VISIT PROGRESS NOTE HPI HTN/HLD/CHF - Taking her meds, no complaints, toleratting well, no side effects. She gets nervous on BP checks. Tries to watch salt, fluid, and sugar intake. Doesn't track her weight. Active as can tolerate. TSH - Taking med, no complaints, no concerns or side effect. Insomnia - Has been taking a whole pill, doing better on a whole one. The following portions of the patient's history were reviewed and updated as appropriate: allergies, current medications and problem list. The patient's surgical, family, and social history was reviewed and updated as appropriate. Review of Systems Review of Systems Constitutional: Negative for activity change and fatigue. Respiratory: Negative for chest tightness, shortness of breath and wheezing. Cardiovascular: Negative for chest pain and palpitations. Neurological: Negative for dizziness, weakness and numbness. Psychiatric/Behavioral: Negative for behavioral problems and dysphoric mood. The patient is not nervous/anxious. Vitals: 06/16/19 0954 06/16/19 0958 BP: (!) 163/76 130/74 BP Location: Left arm Left arm Patient Position: Sitting Sitting BP Cuff Size: Adult Adult Pulse: 78 82 Resp: 18 Temp: 97.9 F (36.6 C) TempSrc: Oral SpO2: 98% 97% Weight: 59.2 kg (130 lb 9.6 oz) Height: 5' 3" Body mass index is 23.13 kg/m . Physical Exam Physical Exam Constitutional: She is oriented to person, place, and time. She appears well- developed and well-nourished. Cardiovascular: Normal rate, regular rhythm and normal heart sounds. Pulmonary/Chest: Effort normal and breath sounds normal. No respiratory distress. She has no wheezes. Neurological: She is alert and oriented to person, place, and time. Skin: Skin is warm. Psychiatric: She has a normal mood and affect. Nursing note and vitals reviewed. No data recorded Assessment/Plan Problem List Items Addressed This Visit Endocrine Subclinical hypothyroidism Chronic, stable, continue med as instructed. Relevant Orders TSH with Reflex Free T4 Cardiovascular and Mediastinum Benign essential hypertension - Primary Chronic, Stable, continue meds, increase activity as can tolerate, limit salt, and watch diet. Continue to monitor BP at home as instructed. Bring blood pressure log and cuff to next visit. Relevant Orders CBC and Differential Comprehensive Metabolic Panel Microalbumin/Creatinine Ratio, UR Random CHF (congestive heart failure) (HCC) Chronic, stable, continue care and monitor symptoms as instructed. See Mandeep as scheduled. Other Mixed hyperlipidemia Chronic, stable, Continue meds as prescribed, watch diet, and increase activity as able to tolerate. Relevant Orders Lipid Panel Insomnia Chronic, not quite controlled will go up to 1 whole pill daily. Relevant Medications mirtazapine (REMERON) 30 MG tablet Goals None If any referrals were placed at today's visit the patient was instructed to call the office if theyhavn't heard anything about the referral within 2 weeks of today's visit. For any new medications prescribed today, patient was educated about indications for the medication, how to take the medication and potential side effects of the medications. documented in this encounter* Rubin Chirinos MD - 01/15/2020 3:33 PM EDT OFFICE CONSULTATION NOTE [facility] [address] ([address]) [facility] [address] [facility] [id number] Physicians: David Zuniga MD Subjective: Na Good is a 84 y.o. female seen in the office today for Follow-up (yearly ) . HPI: The patient is a pleasant 84-year-old female with a past medical history significant for nonischemic cardiomyopathy in 1999. Cardiac catheterization in 2000 demonstrated noncritical plaque disease with EF in the 20 to 25% range. Her echocardiogram from 2018 showed EF in the 45% range. She also has a history of hyperlipidemia, hypertension, and thyroid disease. The patient denies any anginal type chest discomfort. Her breathing is baseline. She does work in her yard without difficulty. She and her take care of 4 acres. She denies any orthopnea, paroxysm nocturnal dyspnea, syncope, or near syncope. Assessment & Plan: CHF (congestive heart failure) (HCC) The patient has no congestive symptoms. She is on guideline directed medical therapy. Continue current therapy. Mixed hyperlipidemia She is not on statin therapy. Lipids are followed through primary care. Aortic insufficiency I did not appreciate a diastolic murmur. Benign essential hypertension Her blood pressure is well controlled on current medical therapy. Left carotid bruit Her carotid Dopplers were unremarkable in 2017. I would like to upgrade the study. The patient is stable from my perspective. I would continue current medical therapy. I will see heragain in 1 year or sooner should she notice any new symptoms or your discretion. Follow Up Ordered: Return in about 1 year (around 01/14/2021). Histories: Past Medical History: Diagnosis Date Aortic insufficiency mild to moderate Cardiomyopathy (HCC) 1999 nonischemic; EF 20-25% in 1999 increased to 40% in 2014 Disease of thyroid gland hypothyroidism Hypertension Mitral regurgitation mild Past Surgical History: Procedure Laterality Date APPENDECTOMY CARDIAC CATHETERIZATION 2000 noncritical plaque disease with EF of 20-25%. TUBAL LIGATION Family History Problem Relation Age of Onset Cancer Mother Heart attack Father Social History Tobacco Use Smoking status: Never Smoker Smokeless tobacco: Never Used Substance Use Topics Alcohol use: Not Currently Alcohol/week: 1.0 standard drinks Types: 1 Glasses of wine per week Comment: very seldom Drug use: No Current Outpatient Medications Medication Sig Dispense Refill CALCIUM CARBONATE/VITAMIN D3 (CALCIUM 500 + D ORAL) Take by mouth 2 (two) times a day. lisinopriL (PRINIVIL,ZESTRIL) 20 MG tablet TAKE 1 TABLET BY MOUTH DAILY 90 tablet 3 metoprolol tartrate (LOPRESSOR) 50 MG tablet TAKE 1 TABLET BY MOUTH TWO TIMES DAILY 180 tablet 3 mirtazapine (REMERON) 30 MG tablet TAKE 1 TABLET BY MOUTH NIGHTLY 90 tablet 3 multivitamin (multivitamin) per tablet Take 1 tablet by mouth daily. vit C/vit E ac/lut/copper/zinc (PRESERVISION LUTEIN ORAL) Take 1 capsule by mouth daily . No current facility-administered medications for this visit. Allergies Allergen Reactions Cortisone Review of Systems Constitution: Positive for malaise/fatigue. Negative for diaphoresis, weight gain and weight loss. HENT: Negative for hearing loss, nosebleeds and tinnitus. Eyes: Negative for blurred vision and visual disturbance. Cardiovascular: Negative for chest pain, claudication, cyanosis, dyspnea on exertion, irregular heartbeat, leg swelling, near-syncope, orthopnea, palpitations, paroxysmal nocturnal dyspnea and syncope. Respiratory: Negative for hemoptysis, shortness of breath and snoring. Endocrine: Negative for cold intolerance and heat intolerance. Hematologic/Lymphatic: Does not bruise/bleed easily. Skin: Negative for flushing, poor wound healing and rash. Musculoskeletal: Negative for back pain, muscle weakness and myalgias. Gastrointestinal: Negative for abdominal pain, change in bowel habit, melena, nausea and vomiting. Genitourinary: Negative for decreased libido and hematuria. Neurological: Negative for loss of balance and numbness. Psychiatric/Behavioral: Negative for memory loss. The patient is not nervous/anxious. Overview of Problems Addressed: Problem Chf (Congestive Heart Failure) (Hcc) Sees Dr. Chirinos yearly. Mixed Hyperlipidemia Left Carotid Bruit Benign Essential Hypertension Aortic Insufficiency mild to moderate Objective: Physical Exam Constitutional: She is oriented to person, place, and time. She appears well- developed and well-nourished. HENT: Head: Normocephalic. Eyes: Pupils are equal, round, and reactive to light. Conjunctivae and EOM are normal. No scleral icterus. Neck: Normal range of motion. Neck supple. No JVD present. No tracheal deviation present. No thyromegaly present. She has a soft left carotid bruit noted. Cardiovascular: Normal rate, regular rhythm, S1 normal, S2 normal and intact distal pulses. Exam reveals no friction rub. No murmur heard. Pulmonary/Chest: Breath sounds normal. No respiratory distress. She has no wheezes. She has no rales. Abdominal: Soft. Bowel sounds are normal. She exhibits no distension and no mass. There is no hepatosplenomegaly. There is no abdominal tenderness. Musculoskeletal: Normal range of motion. General: No edema. Comments: Superficial varicosities are noted. Lymphadenopathy: She has no cervical adenopathy. Neurological: She is alert and oriented to person, place, and time. Skin: Skin is warm and dry. Psychiatric: She has a normal mood and affect. Her behavior is normal. Vitals: Vitals: 01/15/20 1424 BP: 136/78 BP Location: Left arm Patient Position: Sitting BP Cuff Size: Adult Pulse: 64 SpO2: 97% Weight: 57.6 kg (127 lb) Height: 5' 3" Orders Placed This Encounter Ultrasound doppler carotid Thank you for allowing me to assist you in the cardiovascular care of this patient. Please don't hesitate to contact me if you have any questions regarding these thoughts. Rubin Chirinos MD documented in this encounter* David Zuniga MD - 12/08/2019 11:48 AM EDT Jamia Good is a 84 y.o. female who presents for a Medicare Wellness Visit. Medicare Risk Assessment Do you have an Advanced Directive (Living Will and/or Durable Power of Slot Technician for Health Care)?: Yes What is your exercise level?: (!) None What is your diet?: Regular Can you prepare your own meals?: Yes Do you have trouble with finding transportation?: No Because of any health problems, do you need the help of another person with your personal care needs? (For example, eating, bathing, dressing, or getting around the house.): No Does your home have throw rugs, poor lighting or slippery bathtub or shower?: No Does your home have grab bars in bathrooms or handrails on stairs and steps?: Yes (no grab bars in bathroom) During the past four weeks, how would you rate your health in general?: Good Whether or not you use a hearing aid, do you think you have a hearing problem or do others think you have a hearing problem?: (!) Yes Whether or not you use glasses or contacts, do you have difficulty driving, watching television, reading, or doing any of your daily activities because of your eyesight?: No (reading glasses) In the past six months, have you had an unexplained weight loss of 10 pounds or more?: No How often do you have trouble taking medicines the way you have been told to take them?: None I do not take medicine Provider/Supplier Name and Specialty: Dr knight Falls Risk Assessment Fell in past year: 0 (No) How many falls in the past year?: 0 Did any of these falls result in an injury?: No Unsteady when walks: 0 (No) Worried about fallin (Yes) Advised to use cane/walker?: 0 (No) Type of assistive device: na Holds onto furniture/aden: 0 (No) Uses hands to stand up from a chair: 0 (No) Trouble stepping onto curb: 0 (No) Rushes to toilet: 1 (Yes) Lost feeling in feet: 0 (No) Medicine makes me light-headed: 0 (No) Medicine for sleep or mood: 0 (No) Often feel sad/depressed: 0 (No) Patient Self Risk Assessment Score: 2 Timed Up and Go (TUG): 12 seconds or less Medicare Mini Cog Step 1: Three Word Registration Version Used: Version 1: Banana, [place], Chair Step 2: Clock Drawing Step 2 score: (!) Inability or refusal to draw a clock - 0 points Step 3: Three Word Recall Say: What were the three words I asked you to remember? : elida bhagat chair Record patient's answers to the right: elida bhagat Step 3: Three Word Recall Score: (!) 1 Word Recalled Total score = Word Recall score + Clock Draw score A cut point of <3 on the Mini-Cog has been validated for dementia screening, but many individuals with clinically meaningful cognitive impairment will score higher. A cut point of <4 may indicate a need for further evaluation of cognitive status.: (!) 1 PHQ2 (and 9, if needed) Little interest or pleasure in doing things: 0 Feeling down, depressed, or hopeless: 0 PHQ-2 Total Score: 0 Trouble falling or staying asleep, or sleeping too much: 0 Feeling tired or having little energy: 0 Poor appetite or overeatin Feeling bad about yourself - or that you are a failure or have let yourself or your family down: 0 Trouble concentrating on things, such as reading the newspaper or watching television: 0 Moving or speaking so slowly that other people could have noticed. Or the opposite - being so fidgety or restless that you have been moving around a lot more than usual: 0 Thoughts that you would be better off , or of hurting yourself in some way: 0 PHQ-9 Total Score: 0 If you checked off any problems, how difficult have these problems made it for you to do your work,take care of things at home, or get along with other people?: Not difficult at all Comprehensive Medical and Social History: Patient Active Problem List Diagnosis Mitral regurgitation Benign essential hypertension Subclinical hypothyroidism Cardiomyopathy (HCC) Aortic insufficiency Mixed hyperlipidemia Disorder of bone and cartilage, unspecified CHF (congestive heart failure) (HCC) Insomnia Past Medical History: Diagnosis Date Aortic insufficiency mild to moderate Cardiomyopathy (HCC) 1999 nonischemic; EF 20-25% in 1999 increased to 40% in 2013 Disease of thyroid gland hypothyroidism Hypertension Mitral regurgitation mild Past Surgical History: Procedure Laterality Date APPENDECTOMY CARDIAC CATHETERIZATION 2000 noncritical plaque disease with EF of 20-25%. TUBAL LIGATION Current Outpatient Medications Medication Sig Dispense Refill CALCIUM CARBONATE/VITAMIN D3 (CALCIUM 500 + D ORAL) Take by mouth 2 (two) times a day. lisinopriL (PRINIVIL,ZESTRIL) 20 MG tablet TAKE 1 TABLET BY MOUTH DAILY 90 tablet 3 metoprolol tartrate (LOPRESSOR) 50 MG tablet TAKE 1 TABLET BY MOUTH TWO TIMES DAILY 180 tablet 3 mirtazapine (REMERON) 30 MG tablet TAKE 1 TABLET BY MOUTH NIGHTLY 90 tablet 3 multivitamin (multivitamin) per tablet Take 1 tablet by mouth daily. vit C/vit E ac/lut/copper/zinc (PRESERVISION LUTEIN ORAL) Take 1 capsule by mouth daily . diptheria, tetanus toxoid, acellular pertusssis (ADACEL) 2 Lf-(2.5-5-3-5 mcg)- 5Lf/0.5 mL injection Sign this order in conjunction with the immunization order to satisfy [place] Board of Pharmacy Positive ID requirements for immunization orders . 1 mL 0 No current facility-administered medications for this visit. Social History Socioeconomic History Marital status: Spouse name: Karlos Number of children: 4 Years of education: Not on file Highest education level: GED or equivalent Occupational History Not on file Social Needs Financial resource strain: Not hard at all Food insecurity Worry: Never true Inability: Never true Transportation needs Medical: No Non-medical: No Tobacco Use Smoking status: Never Smoker Smokeless tobacco: Never Used Substance and Sexual Activity Alcohol use: Yes Alcohol/week: 1.0 standard drinks Types: 1 Glasses of wine per week Comment: very seldom Drug use: No Sexual activity: Yes Partners: Male Lifestyle Physical activity Days per week: 0 days Minutes per session: 0 min Stress: Not at all Relationships Social connections Talks on phone: Twice a week Gets together: Twice a week Attends yazidism service: Not on file Active member of club or organization: Not on file Attends meetings of clubs or organizations: Not on file Relationship status: Other Topics Concern Not on file Social History Narrative Not on file Allergies: Allergies Allergen Reactions Cortisone Care Team Patient Care Team: David Zuniga MD as PCP - General (Family Medicine) Pharmacy / Equipment Co. (DME) [facility] - [address] [facility] [address] [address] - [place], [place] - [address] [facility] [address] [place] [address] [facility] [address] Objective Blood pressure 133/70, pulse 98, temperature 97.8 F (36.6 C), temperature source Oral, height 5' 3", weight 57.6 kg (127 lb). Body mass index is 22.5 kg/m . Vitals: PACU Vitals 12/08/19 1120 BP: 133/70 Pulse: 98 Temp: 97.8 F (36.6 C) PainSc: 0-No pain Vision and Hearing Screen: Hearing Screening 125Hz 250Hz 500Hz 1000Hz 2000Hz 3000Hz 4000Hz 6000Hz 8000Hz Right ear: Left ear: Visual Acuity Screening Right eye Left eye Both eyes Without correction: 20/50 20/30 With correction: Assessment: The primary encounter diagnosis was General medical exam. Diagnoses of At low risk for fall and Need for vaccination were also pertinent to this visit. Plan: During the course of the visit the patient was educated and counseled about appropriate screening and preventive services includin-Year Plan: Health Maintenance Topic Date Due Tetanus: Every 10yrs 1935 Dexa Scan 1935 Wellness Visit 10/21/1938 Depression Screening (PHQ9) 12/19/2019 Zoster Vaccines (1 of 2) 12/07/2020 (Originally 10/21/1985) Falls Risk Assessment 12/19/2019 Sequential Influenza Vaccine (1) 12/23/2019 Pneumococcal Vaccine Age 65+ Discontinued * Lidia Lee MA - 12/08/2019 11:39 AM EDT Rt ear using tunning fork pt did not feel vibration documented in this encounter* David Zuniga MD - 07/28/2020 2:13 PM EDT OFFICE VISIT PROGRESS NOTE HPI HTN/HLD/CHF - Says tries to do what she can. Some fatigue and back strain. Takes meds, tolerates, no side effects. No log for BP provided today. No change to diet or activity. No cardiac symptoms. NoCHF symptoms. The following portions of the patient's history were reviewed and updated as appropriate: allergies, current medications and problem list. The patient's surgical, family, and social history was reviewed and updated as appropriate. Review of Systems Review of Systems Constitutional: Negative for activity change and fatigue. Respiratory: Negative for chest tightness, shortness of breath and wheezing. Cardiovascular: Negative for chest pain and palpitations. Neurological: Negative for dizziness, weakness and numbness. Psychiatric/Behavioral: Negative for behavioral problems and dysphoric mood. The patient is not nervous/anxious. Vitals: 07/28/20 1354 BP: 139/82 BP Location: Left arm Patient Position: Sitting BP Cuff Size: Adult Pulse: 84 Temp: 98.7 F (37.1 C) TempSrc: Oral SpO2: 97% Weight: 57.4 kg (126 lb 9.6 oz) Height: 5' 3" Body mass index is 22.43 kg/m . Physical Exam Physical Exam Constitutional: She is oriented to person, place, and time. She appears well- developed and well-nourished. Cardiovascular: Normal rate, regular rhythm and normal heart sounds. Pulmonary/Chest: Effort normal and breath sounds normal. No respiratory distress. She has no wheezes. Neurological: She is alert and oriented to person, place, and time. Skin: Skin is warm. Psychiatric: She has a normal mood and affect. Nursing note and vitals reviewed. OARRS/NARxCHECK Report Received and Assessed: No data found Date controlled substance agreement signed: No data found Date of last drug screen: No data found Functional Assessment: No data found Assessment/Plan Problem List Items Addressed This Visit Cardiovascular and Mediastinum Benign essential hypertension - Primary Chronic, Stable, continue meds, increase activity as can tolerate, limit salt, and watch diet. Continue to monitor BP at home as instructed. Bring blood pressure log and cuff to next visit. Relevant Orders Comprehensive Metabolic Panel CBC and Differential Lipid Panel Microalbumin/Creatinine Ratio, UR Random TSH with Reflex Free T4 CHF (congestive heart failure) (HCC) Chronic, stable, no flare, no problem today, will monitor, care per Cardio as scheduled. Other Mixed hyperlipidemia Chronic, stable, Continue meds as prescribed, watch diet, and increase activity as able to tolerate. Goals None If any referrals were placed at today's visit the patient was instructed to call the office if theyhavn't heard anything about the referral within 2 weeks of today's visit. For any new medications prescribed today, patient was educated about indications for the medication, how to take the medication and potential side effects of the medications. documented in this encounter Reason for Referral Status Reason Specialty Diagnoses / Procedures Referred By Contact Referred To Contact Closed Otolaryngology Diagnoses Presbycusis, unspecified laterality Cameron Mendes MD [address] [place] [address] Ceasar Arce MD [address] [facility] [address] [address] Status Reason Specialty Diagnoses / Procedures Referred By Contact Referred To Contact Pending Review Cardiology Diagnoses Bruit of left carotid artery Procedures Ultrasound doppler carotid Rubin Chirinos MD [address] [place] [address] Additional Source Comments Assessment & Plan Note - David Zuniga MD - 12/27/2017 10:57 AM EDTAssessment & Plan Note - David Zuniga MD - 12/27/2017 10:57 AM EDT Miscellaneous Notes (unrecog nized section and content) Associated Problem(s): CHF (congestive heart failure) (HCC) Continue meds as prescribed, watch diet, and increase activity as able to tolerate. Associated Problem(s): Mixed hyperlipidemia Watch diet, and increase activity as able to tolerate. Associated Problem(s): Subclinical hypothyroidism Continue to watch for new symptoms. Associated Problem(s): Benign essential hypertension Stable, continue meds, increase activity as can tolerate, limit salt, and watch diet. Continue to monitor BP at home as instructed. Bring blood pressure log and cuff to next visit. Please check BP at home, in the evening before bed. Have sit in a chair, back flat against chair back, feet flat on the floor, legs uncrossed, arm at the level of your heart. Make sure use the same arm every time for the check. Put the cuff or machine on your arm/wrist and then wait 5-10 minutes before having it take your pressure. IF remains high then wait another 5 minutes before checking. If high after 3 checks spaced 5 minutes apart then please average numbers and right that down as your value. Do this 3 nights a week and bring log to next visit with your machine. in this encounter Associated Problem(s): Benign essential hypertension Blood pressure slightly elevated in the office today. Blood pressures managed by primary care provider. Encouraged her to monitor blood pressures and bring them to his attention Associated Problem(s): Aortic insufficiency Will recheck an echocardiogram Associated Problem(s): CHF (congestive heart failure) (HCC) No evidence of decompensated heart failure in the clinic today. [place] Heart Association functional class I-II. She is somewhat compliant with low-salt diet and fluid restriction. We will continue same medications. I am going to check echocardiogram to reassess her LV functionin this encounter Associated Problem(s): CHF (congestive heart failure) (HCC) Chronic, stable, continue meds and care. Watch fluid and salt intake. Consider monitoring daily weight. Associated Problem(s): Benign essential hypertension Chronic, Stable, continue meds, increase activity as can tolerate, limit salt, and watch diet. Continue to monitor BP at home as instructed. Bring blood pressure log and cuff to next visit. Please check BP at home, in the evening before bed. Have sit in a chair, back flat against chair back, feet flat on the floor, legs uncrossed, arm at the level of your heart. Make sure use the same arm every time for the check. Put the cuff or machine on your arm/wrist and then wait 5-10 minutes before having it take your pressure. IF remains high then wait another 5 minutes before checking. If high after 3 checks spaced 5 minutes apart then please average numbers and right that down as your value. Do this 3 nights a week and bring log to next visit with your machine. Associated Problem(s): Mixed hyperlipidemia Chronic,not on meds, stable, watch diet, and increase activity as able to tolerate. in this encounter Associated Problem(s): Benign essential hypertension She states her blood pressure is normally lower at home. She keeps a log. Continue current therapy. Associated Problem(s): Cardiomyopathy (HCC) Her EF remains stable at around 45%. Associated Problem(s): Mixed hyperlipidemia She is not on statin therapy. Lipids are followed through primary care. Associated Problem(s): CHF (congestive heart failure) (HCC) She has no congestive symptoms presently. She is diligent about sodium and fluid restriction. Continue current medical therapy. documented in this encounter Associated Problem(s): Mixed hyperlipidemia Chronic, stable, Continue meds as prescribed, watch diet, and increase activity as able to tolerate. Associated Problem(s): CHF (congestive heart failure) (HCC) Chronic, stable, continue care and monitor symptoms as instructed. See Mandeep as scheduled. Associated Problem(s): Subclinical hypothyroidism Chronic, stable, continue med as instructed. Associated Problem(s): Benign essential hypertension Chronic, Stable, continue meds, increase activity as can tolerate, limit salt, and watch diet. Continue to monitor BP at home as instructed. Bring blood pressure log and cuff to next visit. Associated Problem(s): Insomnia Chronic, not quite controlled will go up to 1 whole pill daily. documented in this encounter Associated Problem(s): Left carotid bruit Her carotid Dopplers were unremarkable in 2017. I would like to upgrade the study. Associated Problem(s): Benign essential hypertension Her blood pressure is well controlled on current medical therapy. Associated Problem(s): Aortic insufficiency I did not appreciate a diastolic murmur. Associated Problem(s): Mixed hyperlipidemia She is not on statin therapy. Lipids are followed through primary care. Associated Problem(s): CHF (congestive heart failure) (HCC) The patient has no congestive symptoms. She is on guideline directed medical therapy. Continue current therapy. documented in this encounter Associated Problem(s): CHF (congestive heart failure) (HCC) Chronic, stable, no flare, no problem today, will monitor, care per Cardio as scheduled. Associated Problem(s): Mixed hyperlipidemia Chronic, stable, Continue meds as prescribed, watch diet, and increase activity as able to tolerate. Associated Problem(s): Benign essential hypertension Chronic, Stable, continue meds, increase activity as can tolerate, limit salt, and watch diet. Continue to monitor BP at home as instructed. Bring blood pressure log and cuff to next visit. documented in this encounter INFORMATION SOURCE (unrecogn ized section and content) DATE CREATED AUTHOR 04/01/2018 [facility] DATE [facility]ATED [facility] DATE CREATED AUTHOR AUTHOR'S ORGANIZ ATION 01/15/2021 [facility] DATE CREATED AUTHOR AUTHOR'S ORGANIZ ATION 10/13/2024 [facility] Reason for Visit (unrecogniz ed section and content) Reason Comments Congestive Heart Failure Hypertension Hyperlipidemia Reason Comments Hearing Loss Pt req to see Dr JIGNESH Aguilar PT Status Reason Specialty Diagnoses / Procedures Referred By Contact Referred To Contact Closed Otolaryngology Diagnoses Presbycusis, unspecified laterality Cameron Mendes MD [address] [phone] Ceasar Arce MD [address] [facility] [address] [place] [phone] Reason Comments Medicare Wellness Visit VM to schedule [place] Status Reason Specialty Diagnoses / Procedures Referred By Contact Referred To Contact Closed Specialty Services Required/Patient' s Best Interest Audiology Diagnoses Sudden hearing loss, unspecified laterality Ceasar Arce MD [address] [facility] [address] [place] [phone] Kriss Marcelo AuD Reason Comments Hearing Loss left ear Reason Comments Follow-up Denies Chest pain,pr essure,SOB,Swelling Reason Comments Hypertension Hyperlipidemia Hypothyroidism Reason Comments Follow-up yearly Status Reason Specialty Diagnoses / Procedures Referred By Contact Referred To Contact Pending Review Cardiology Diagnoses Bruit of left carotid artery Procedures Ultrasound doppler carotid Rubin Chirinos MD [address] [place] [address] Reason Onset Date Comments Medicare Wellness Visit Fall Risk Screening 12/08/2019 Reason Comments Hypertension Hyperlipidemia Congestive Heart Failure Reason Onset Date Comments Medication Refill 09/21/2020 Reason Comments Medication Refill Care Teams (unrecognized sec tion and content) Digitizer Operator Relationship Specialty Start Date End Date Anika Hernandez CNP PCP - General Nurse Practitioner 06/15/17 11/28/17 David Zuniga MD PCP - General Family Medicine 11/29/17 David Zuniga MD [address] [place] [address] PCP - [facility] Attributed Provider 07/22/20 04/22/21 FOR RECORDS PERTAINING TO PATIENTS WHO ARE OR HAVE BEEN ENROLLED IN A CHEMICAL DEPENDENCY/SUBSTANCEABUSE PROGRAM, SOME INFORMATION MAY BE OMITTED. This clinical summary was aggregated from multiple sources. Caution should be exercised in using it in the provision of clinical care. This summary normalizes information from multiple sources, and as a consequence, information in this document may materially change the coding, format and clinical context of patient data. In addition, data may be omitted in some cases. CLINICAL DECISIONS SHOULD BE BASED ON THE PRIMARY CLINICAL RECORDS. [facility]. provides no warranty or guarantee of the accuracy or completeness of information in this document.
[2024-12-09 09:14] LABS: Hematocrit 37.6 % (37-47); Hemoglobin 12.5 g/dL (12.0-15.0); Mean Corp Hgb Conc 33.2 g/dL (32-36); Mean Corpuscular Volume 89.5 fL (81-99); Mean Platelet Vol. 10.5 fl (6.2-12.0); Platelet Count 345 K/mm3 (150-450); RBC Distribution Width CV 16.4 % (11.6-14.6); RBC Distribution Width SD 53.6 fl (35.1-43.9); Red Blood Count 4.20 M/mm3 (4.2-5.4); White Blood Count 9.3 K/mm3 (4.4-11.0)
[2024-12-09 09:35] LABS: Anion Gap 11 (5-15); BUN 19 mg/dL (4-19); BUN/Creat Ratio 21.8 RATIO (10-20); Calcium,Total 8.8 mg/dL (7.6-11.0); Carbon Dioxide 23.2 mmol/L (21.0-32.0); Chloride 101 mmol/L (98-108); Glucose 78 mg/dL (70-99); Potassium 4.3 mmol/L (3.3-5.1)
== END ==
LOC: OLS.ACH2 05:00
PROVIDERS: Visit Provider Internal Medicine
DX: I50.22 Chronic systolic (congestive) heart failure (principal)
CPT/HCPCS: 36415; 80048; 85027

== ENCOUNTER → 2024-12-29 05:00 | Outpatient (REF) | payer MEDICARE, OTHER, SELFPAY ==
--- OUTSIDE RECORDS SUMMARY | 2024-12-29 04:19 | XMS RPT_ITS | CCD ---
Author Organization [facility] Care Team Providers Care Air Sampling And Monitoring Name Role Phone Anika Hernandez Unavailable Unavailable Oscar Mendes Unavailable Unavailable Unavailable Unavailable David Ludwig Unavailable Alfredo Barreto Unavailable Unavailable Alfredo Barreto Unavailable Unavailable Gorenflo, Alfreda Rivka Unavailable Unavailab le Gorenflo, Alfreda Rivka Unavailable Unavailab le YossiontOscar Unavailable Unavaila ble StormontOscar Unavailable Unavaila ble StormontOscar Unavailable Unavaila ble StormontOscar Unavailable Unavaila ble Alfredo Barreto Unavailable Unavailable Alfredo Barreto Unavailable Unavailable David Ludwig Primary Care Provider Unavailable Primary Care Provider Unavailabl e David Ludwig Primary Care Provider David Ludwig Primary Care Provider RUBIN CHIRINOS Attending Unavailable RUBIN CHIRINOS Referring Unavailable DAVID LUDWIG Primary Care Unavailab le CRODAVID HARKINS Primary Care Unavailab le David Ludwig MD Primary Care Provider DAVID LUDWIG Attending Unavailab le CRODAVID HARKINS Primary Care Unavailab le CROUCH, DAVID PISANO Attending Unavailab le CRODAVID HARKINS Primary Care Unavailab le CRODAVID HARKINS Attending Unavailab le DAVID LUDIWG Primary Care Unavailab le Hernandez Anika MARTIN Primary Care Provider David Ludwig MD Primary Care Provider David Ludwig MD Unavailable Alexey Gipson Attending Unavailable Alexey Gipson Attending Unavailable JOHNSON WATSON Primary Care Unavailab LIAM Viramontes Admitting Unavailable LIAM SMITH Attending Unavailable ROJAS MATTHEWS Consulting Unavailable Allergies Allergy Classification Reported Allergen(s) Allergy Type Date of Onset Reaction(s) Facility Corticosteroids (1 source) Cortisone Drug Allergy 6 [facility] (20 sources) cortisone; Translations: [CORTISONE] Propensity to adverse reactions to drug 2 [facility] Work Phone: Medications Current Medications Medication [...] (two) times a day. Active Flu Vaccine [id number](65yr Up)(Pf)180 McG/0.5 Ml Intramuscular Syringe (1 source) Start: 12-27-2017 End: 12-27-2017 flu vaccine tv 2017, 65yr up,,PF, (FLUZONE HIGH DOSE) syringe Indications: Need for influenza vaccination Sign this order in conjunction with the immunization order to satisfy [place] Board [employer] Pharmacy Positive ID requirements for [...] Essential hypertension; Translations: [Hypertensive disorder] 06-26-2017 Chronic Fluid and electrolyte disorders (1 source) Fluid overload, unspecified; Translations: [Hypervolemia, unspecified hypervolemia type] Onset: 12-24-2024 Episodic Heart valve disorders (20 sources) Mitral valve [...] disease (1 source) Dyspnea on exertion Episodic Other lower respiratory disease (1 source) Acute pulmonary edema; Translations: [Acute pulmonary edema (HCC)] Onset: 12-24-2024 Episodic Other lower respiratory disease (1 source) Orthopnea; Translations: [Orthopnea] Onset: 12-24-2024 Episodic Iza-; endo-; and myocarditis; cardiomyopathy (20 [...] Test Name Value Interpretation Reference Range Facility Basic metabolic 2000 panelon 12-27-2024 Anion gap [Moles/Vol] 11 mmol/L Normal 8-15 [facility] Comment on above: Order Comment: Speci men Type: BLOOD SPECIMENOrdering Facility: [facility] Address: [address] [place] [address] Performed By: #### 2 4321-2 ####[facility] LABORATORYCLIA [id number] [place] [address] [place] Calcium [Mass/Vol] 8.9 mg/dL Normal 8.5-10.2 [facility] Comment on above: Order Comment: Speci men Type: BLOOD SPECIMENOrdering Facility: [facility] Address: [address] [place] [address] Performed By: #### 2 4321-2 ####[facility] LABORATORYCLIA [id number] [place] [address] [place] Chloride [Moles/Vol] 97 mmol/L Low 98-107 [facility] Comment on above: Order Comment: Speci men Type: BLOOD SPECIMENOrdering Facility: [facility] Address: [address] [place] [address] Performed By: #### 2 4321-2 ####BA[facility] LABORATORYCLIA [id number] [place] [address] [place] CO2 [Moles/Vol] 26 mmol/L Normal 22-30 [facility] Comment on above: Order Comment: Speci men Type: BLOOD SPECIMENOrdering Facility: [facility] Address: [address] [place] [address] Performed By: #### 2 4321-2 ####[facility] LABORATORYCLIA [id number] [place] [address] [place] Creatinine [Mass/Vol] 0.97 mg/dL High 0.58-0.96 [facility] Comment on above: Order Comment: Speci men Type: BLOOD SPECIMENOrdering Facility: [facility] Address: [address] [place] [address] Performed By: #### 2 4321-2 ####[facility] LABORATORYCLIA [id number] [address] eGFRcr SerPlBld CKD-EPI 2020 56 mL/min/1.73m??? Low >=60 [facility] Comment on above: Order Comment: Vita gautam Type: BLOOD SPECIMENOrdering Facility: [facility] Address: [address] [place] [address] Result Comment: Radha mated Glomerular Filtration Rate (eGFR) is calculated using the 2020 CKD-EPI creatinine equation. This equation utilizes serum creatinine, sex, and age as parameters. The creatinine assay has traceable calibration to isotope dilution-mass spectrometry. Refer to KDIGO guidelines for clinical interpretation. In patients with unstable renal function, e.g. those with acute kidney injury, the eGFR may not accurately reflect actual GFR. Performed By: #### 2 4321-2 ####[facility] LABORATORYCLIA [id number] [place] [address] [place] Glucose [Mass/Vol] 84 mg/dL Normal 74-99 [facility] Comment on above: Order Comment: Vita florez Type: BLOOD SPECIMENOrdering Facility: [facility] Address: [address] [place] [address] Result Comment: The [place] Diabetes [employer] (ADA) provides guidance for cutoff values for fasting glucose and random glucose. The ADA defines fasting as no caloric intake for at least 8 hours. Fasting plasma glucose results between 100 to 125 mg/dL indicate increased risk for diabetes (prediabetes). Fasting plasma glucose results greater than or equal to 126 mg/dL meet the criteria for diagnosis of diabetes. In the absence of unequivocal hyperglycemia, results should be confirmed by repeat testing. In a patient with classic symptoms of hyperglycemia or hyperglycemic crisis, random plasma glucose results greater than or equal to 200 mg/dL meet the criteria for diagnosis of diabetes. Reference: Standards of Medical Care in Diabetes 2016, [place] [employer] Association. Diabetes Care. 2016.39(Suppl 1). Performed By: #### 2 4321-2 ####[facility] LABORATORYCLIA [id number] [address] Potassium [Moles/Vol] 3.6 mmol/L Low 3.7-5.1 [facility] Comment on above: Order Comment: Speci men Type: BLOOD SPECIMENOrdering Facility: [facility] Address: [address] [place] [address] Performed By: #### 2 4321-2 ####[facility] LABORATORYCLIA [id number] [address] Sodium [Moles/Vol] 134 mmol/L Low 136-144 [facility] Comment on above: Order Comment: Speci men Type: BLOOD SPECIMENOrdering Facility: [facility] Address: [address] [place] [address] Performed By: #### 2 4321-2 ####[facility] LABORATORYCLIA [id number] [address] Urea nitrogen [Mass/Vol] 28 mg/dL High 7-21 [facility] Comment on above: Order Comment: Speci men Type: BLOOD SPECIMENOrdering Facility: [facility] Address: [address] [place] [address] Performed By: #### 2 4321-2 ####[facility] LABORATORYCLIA [id number] [address] CBC panel Auto (Bld)on 12-27 Erythrocyte distribution width (RBC) [Ratio] 15.6 % High 11.5-15.0 [facility] Comment on above: Order Comment: Speci men Type: BLOOD SPECIMENOrdering Facility: [facility] Address: [address] [place] [address] Performed By: #### 5 8410-2 ####[facility] LABORATORYCLIA [id number] [address] Hematocrit (Bld) [Volume fraction] 41.6 % Normal 36.0-46.0 [facility] Comment on above: Order Comment: Speci men Type: BLOOD SPECIMENOrdering Facility: [facility] Address: [address] [place] [address] Performed By: #### 5 8410-2 ####[facility] LABORATORYCLIA [id number] [address] Hemoglobin (Bld) [Mass/Vol] 13.9 g/dL Normal 11.5-15.5 [facility] Comment on above: Order Comment: Speci men Type: BLOOD SPECIMENOrdering Facility: [facility] Address: [address] [place] [address] Performed By: #### 5 8410-2 ####[facility] LABORATORYCLIA [id number] [address] MCH (RBC) [Entitic mass] 29.2 pg Normal 26.0-34.0 [facility] Comment on above: Order Comment: Speci men Type: BLOOD SPECIMENOrdering Facility: [facility] Address: [address] [place] [address] Performed By: #### 5 8410-2 ####[facility] LABORATORYCLIA [id number] [address] MCHC (RBC) [Mass/Vol] 33.4 g/dL Normal 30.5-36.0 [facility] Comment on above: Order Comment: Speci men Type: BLOOD SPECIMENOrdering Facility: [facility] Address: [address] [place] [address] Performed By: #### 5 8410-2 ####[facility] LABORATORYCLIA [id number] [address] MCV (RBC) [Entitic vol] 87.4 fL Normal 80.0-100.0 [facility] Comment on above: Order Comment: Speci men Type: BLOOD SPECIMENOrdering Facility: [facility] Address: [address] [place] [address] Performed By: #### 5 8410-2 ####[facility] LABORATORYCLIA [id number] [address] Nucleated RBC (Bld) [#/Vol] 10*3/uL Normal <0.01 [facility] Comment on above: Order Comment: Speci men Type: BLOOD SPECIMENOrdering Facility: [facility] Address: [address] [place] [address] Performed By: #### 5 8410-2 ####[facility] LABORATORYCLIA [id number] [place] [address] [place] Platelet mean volume (Bld) [Entitic vol] 10.2 fL Normal 9.0-12.7 [facility] Comment on above: Order Comment: Speci men Type: BLOOD SPECIMENOrdering Facility: [facility] Address: [address] [place] [address] Performed By: #### 5 8410-2 ####[facility] LABORATORYCLIA [id number] [place] [address] [facility] [place] Platelets (Bld) [#/Vol] 334 10*3/uL Normal 150-400 [facility] Comment on above: Order Comment: Speci men Type: BLOOD SPECIMENOrdering Facility: [facility] Address: [address] [place] [address] Performed By: #### 5 8410-2 ####[facility] LABORATORYCLIA [id number] [place] [address] [place] RBC (Bld) [#/Vol] 4.76 10*6/uL Normal 3.90-5.20 [facility] Comment on above: Order Comment: Speci men Type: BLOOD SPECIMENOrdering Facility: [facility] Address: [address] [place] [address] Performed By: #### 5 8410-2 ####[facility] LABORATORYCLIA [id number] [address] [place] WBC (Bld) [#/Vol] 11.86 10*3/uL High 3.70-11.00 [facility] Comment on above: Order Comment: Speci men Type: BLOOD SPECIMENOrdering Facility: [facility] Address: [address] [place] [address] Performed By: #### 5 8410-2 ####[facility] LABORATORYCLIA [id number] [place] [id number] [facility] CNDSon 12-27-2024 CNDS HNO ID: [id number] Author: JOSE ANTONIO MILTON MD Service: General Internal Medicine Author Type: Physician Type: Discharge Summary Filed: 12/27/2024 12:35 Note Text: DISCHARGE SUMMARY PATIENT NAME: Na Good ADMISSION DATE: 12/24/2024 DISCHARGE DATE: 12/27/2024 ATTENDING PHYSICIAN: Liam Smith MD Code Status: DNR-CCA, DNI Highest Readmission Risk Score: 12 The 30 day readmissions risk score is derived from an internally validated risk model which evaluates patient level characteristics, utilization history, medication orders and lab results up until the day of discharge. Patients with a score of 39 or above are considered highest risk for readmission. Specific patient level drivers will be listed at the bottom of the summary. 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 OPERATIONS DURING HOSPITALIZATION: None PROCEDURES DURING HOSPITALIZATION: Echocardiogram HOSPITAL COURSE: She was admitted with shortness of breath due to CHF. She was treated with diuretics and is feeling better. She is being discharged to her Assisted Living with [facility] Transitions of Care Critical Issues: as above LABS AND PROCEDURES PENDING AT DISCHARGE: No pending results. PATIENT CONDITION AT DISCHARGE: Stable DISCHARGE DISPOSITION: Home with Home Health Discharge Physical Exam: VITAL SIGNS: BP 136/81 Pulse 90 Temp 36.4 ?C (97.5 ?F) Resp 16 Ht 157.5 cm (5' 2") Wt 55.6 kg (122 lb 9.2 oz) SpO2 97% BMI 22.42 kg/m? GENERAL: Alert, no distress, cooperative LUNGS: Lungs clear to auscultation, Good diaphragmatic excursion CARDIAC: Normal S1 and S2; no rubs, murmurs, or gallops ABDOMEN: Abdomen soft, non-tender, BS normal, No masses or organomegaly EXTREMITIES: Extremities normal, no deformities, edema, clubbing or skin discoloration. Good capillary refill., No ulcers INFORMATION PROVIDED TO PATIENT: Heart Failure Material Given Addressing: Activity, Diet/Fluid Management, Medication Compliance, Follow-Up with Physician, Smoking Cessation, What to do if CHF Symptoms Worsen AND Daily Weight Monitoring WOUND/SURGICAL SITE CARE: None DIET: Resume your pre-hospital diet ACTIVITY: Resume pre-hospital activity ALLERGIES Allergen Reactions Cortisone facial swelling after IM injection DISCHARGE MEDICATION: Medication List START taking these medications enalapril 2.5 mg tablet Commonly known as: VASOTEC Take 1 tablet by mouth two times a day. furosemide 20 mg tablet Commonly known as: LASIX Take 1 tablet by mouth once daily. Start taking on: December 28, 2024 CONTINUE taking these medications ALDACTONE 25 mg tablet Generic drug: spironolactone apixaban 2.5 mg tab(s) Commonly known as: ELIQUIS CALCIUM + D 600 mg-5 mcg (200 unit) Tab Generic drug: calcium carbonate 600 mg-cholecalciferol 200 units Take one(1) tablet two(2) times daily. Cholecalciferol (Vitamin D3) 25 mcg (1,000 unit) Cap JARDIANCE 10 mg tablet Generic drug: empagliflozin melatonin 2.5 mg Chew mirtazapine 30 mg tablet Commonly known as: REMERON multivitamin tablet Take one(1) tablet daily. rosuvastatin 5 mg tablet Commonly known as: CRESTOR SENEXON-S 8.6-50 mg per tablet Generic drug: senna-docusate TOPROL XL 25 mg 24 hr tablet Generic drug: metoprolol succinate ER Where to Get Your Medications These medications will be mailed to you From: [facility] [address] - [address] [phone] enalapril 2.5 mg tablet furosemide 20 mg tablet FUTURE APPOINTMENTS: Follow Up with PCP: Johnson Watson MD, MD The patient's risk for 30-day readmission is determined using the following contributing factors: Predictive Model Details 11% (Low) Factor Value Calculated 12/27/2024 05:20 -16% diagnosis count 5 [facility] READMISSION RISK Model 11% Facility [facility] -8% ED visits (365d) 0 8% Hospital [address] -8% Admissions (365d) 1 -6% ED Encounter 0 -6% Sodium (Avg) 138.33 -5% Malnutrition 0 -5% Observations (365d) 0 -5% Current Age 89 Plan of care discussed with Patient, Family/Significant Other: son, Care Management, and RN I have performed the lngn-iy-cyou and relevant services for a total of >30 minutes. SIGNATURE: Jose Antonio Milton MD DATE: December 27, 2024 TIME: 10:38 AM Normal [facility] Basic metabolic 2000 panelon 12-26-2024 Anion gap [Moles/Vol] 11 mmol/L Normal 8-15 [facility] Comment on above: Order Comment: Speci men Type: BLOOD SPECIMENOrdering Facility: [facility] Address: [address] [place] [address] Performed By: #### 2 4321-2 ####BA[facility] LABORATORYCLIA [id number] [place] [address] [place] Calcium [Mass/Vol] 8.9 mg/dL Normal 8.5-10.2 [facility] Comment on above: Order Comment: Speci men Type: BLOOD SPECIMENOrdering Facility: [facility] Address: [address] [place] [address] Performed By: #### 2 4321-2 ####BA[facility] LABORATORYCLIA [id number] [place] [address] [place] Chloride [Moles/Vol] 101 mmol/L Normal 98-107 [facility] Comment on above: Order Comment: Speci men Type: BLOOD SPECIMENOrdering Facility: [facility] Address: [address] [place] [address] Performed By: #### 2 4321-2 ####BA[facility] LABORATORYCLIA [id number] [place] [address] [place] CO2 [Moles/Vol] 28 mmol/L Normal 22-30 [facility] Comment on above: Order Comment: Speci men Type: BLOOD SPECIMENOrdering Facility: [facility] Address: [address] [place] [address] Performed By: #### 2 4321-2 ####BA[facility] LABORATORYCLIA [id number] [place] [address] [place] Creatinine [Mass/Vol] 1.07 mg/dL High 0.58-0.96 [facility] Comment on above: Order Comment: Speci men Type: BLOOD SPECIMENOrdering Facility: [facility] Address: [address] [place] [address] Performed By: #### 2 4321-2 ####BA[facility] LABORATORYCLIA [id number] [address] [place] eGFRcr SerPlBld CKD-EPI 2020 50 mL/min/1.73m??? Low >=60 [facility] Comment on above: Order Comment: Vita florez Type: BLOOD SPECIMENOrdering Facility: [facility] Address: [address] [place] [address] Result Comment: Radha mated Glomerular Filtration Rate (eGFR) is calculated using the 2020 CKD-EPI creatinine equation. This equation utilizes serum creatinine, sex, and age as parameters. The creatinine assay has traceable calibration to isotope dilution-mass spectrometry. Refer to KDIGO guidelines for clinical interpretation. In patients with unstable renal function, e.g. those with acute kidney injury, the eGFR may not accurately reflect actual GFR. Performed By: #### 2 4321-2 ####[facility] LABORATORYCLIA [id number] [place] [address] [place] Glucose [Mass/Vol] 77 mg/dL Normal 74-99 [facility] Comment on above: Order Comment: Vita florez Type: BLOOD SPECIMENOrdering Facility: [facility] Address: [address] [place] [address] Result Comment: The [place] Diabetes Association (ADA) provides guidance for cutoff values for fasting glucose and random glucose. The ADA defines fasting as no caloric intake for at least 8 hours. Fasting plasma glucose results between 100 to 125 mg/dL indicate increased risk for diabetes (prediabetes). Fasting plasma glucose results greater than or equal to 126 mg/dL meet the criteria for diagnosis of diabetes. In the absence of unequivocal hyperglycemia, results should be confirmed by repeat testing. In a patient with classic symptoms of hyperglycemia or hyperglycemic crisis, random plasma glucose results greater than or equal to 200 mg/dL meet the criteria for diagnosis of diabetes. Reference: Standards of Medical Care in Diabetes 2016, [place] [employer]. Diabetes Care. 2016.39(Suppl 1). Performed By: #### 2 4321-2 ####[facility] LABORATORYCLIA [id number] [address] Potassium [Moles/Vol] 3.7 mmol/L Normal 3.7-5.1 [facility] Comment on above: Order Comment: Speci men Type: BLOOD SPECIMENOrdering Facility: [facility] Address: [address] [place] [address] Performed By: #### 2 4321-2 ####BA[facility] LABORATORYCLIA [id number] [address] [place] Sodium [Moles/Vol] 140 mmol/L Normal 136-144 [facility] Comment on above: Order Comment: Speci men Type: BLOOD SPECIMENOrdering Facility: [facility] Address: [address] [place] [address] Performed By: #### 2 4321-2 ####BA[facility] LABORATORYCLIA [id number] [address] [place] Urea nitrogen [Mass/Vol] 31 mg/dL High 7-21 [facility] Comment on above: Order Comment: Speci men Type: BLOOD SPECIMENOrdering Facility: [facility] Address: [address] [place] [address] Performed By: #### 2 4321-2 ####[facility] LABORATORYCLIA [id number] [address] CBC panel Auto (Bld)on 12-26 Erythrocyte distribution width (RBC) [Ratio] 15.8 % High 11.5-15.0 [facility] Comment on above: Order Comment: Speci men Type: BLOOD SPECIMENOrdering Facility: [facility] Address: [address] [place] [address] Performed By: #### 5 8410-2 ####[facility] LABORATORYCLIA [id number] [address] Hematocrit (Bld) [Volume fraction] 41.9 % Normal 36.0-46.0 [facility] Comment on above: Order Comment: Speci men Type: BLOOD SPECIMENOrdering Facility: [facility] Address: [address] [place] [address] Performed By: #### 5 8410-2 ####[facility] LABORATORYCLIA [id number] [address] Hemoglobin (Bld) [Mass/Vol] 14.0 g/dL Normal 11.5-15.5 [facility] Comment on above: Order Comment: Speci men Type: BLOOD SPECIMENOrdering Facility: [facility] Address: [address] [place] [address] Performed By: #### 5 8410-2 ####[facility] LABORATORYCLIA [id number] [address] MCH (RBC) [Entitic mass] 29.7 pg Normal 26.0-34.0 [facility] Comment on above: Order Comment: Speci men Type: BLOOD SPECIMENOrdering Facility: [facility] Address: [address] [place] [address] Performed By: #### 5 8410-2 ####[facility] LABORATORYCLIA [id number] [address] MCHC (RBC) [Mass/Vol] 33.4 g/dL Normal 30.5-36.0 [facility] Comment on above: Order Comment: Speci men Type: BLOOD SPECIMENOrdering Facility: [facility] Address: [address] [place] [address] Performed By: #### 5 8410-2 ####[facility] LABORATORYCLIA [id number] [address] MCV (RBC) [Entitic vol] 89.0 fL Normal 80.0-100.0 [facility] Comment on above: Order Comment: Speci men Type: BLOOD SPECIMENOrdering Facility: [facility] Address: [address] [place] [address] Performed By: #### 5 8410-2 ####[facility] LABORATORYCLIA [id number] [address] Nucleated RBC (Bld) [#/Vol] 10*3/uL Normal <0.01 [facility] Comment on above: Order Comment: Speci men Type: BLOOD SPECIMENOrdering Facility: [facility] Address: [address] [place] [address] Performed By: #### 5 8410-2 ####[facility] LABORATORYCLIA [id number] [place] [id number] [facility] [place] Platelet mean volume (Bld) [Entitic vol] 10.6 fL Normal 9.0-12.7 [facility] Comment on above: Order Comment: Speci men Type: BLOOD SPECIMENOrdering Facility: [facility] Address: [address] [place] [address] Performed By: #### 5 8410-2 ####[facility] LABORATORYCLIA [id number] [address] [place] Platelets (Bld) [#/Vol] 364 10*3/uL Normal 150-400 [facility] Comment on above: Order Comment: Speci men Type: BLOOD SPECIMENOrdering Facility: [facility] Address: [address] [place] [address] Performed By: #### 5 8410-2 ####[facility] LABORATORYCLIA [id number] [address] [place] RBC (Bld) [#/Vol] 4.71 10*6/uL Normal 3.90-5.20 [facility] Comment on above: Order Comment: Speci men Type: BLOOD SPECIMENOrdering Facility: [facility] Address: [address] [place] [address] Performed By: #### 5 8410-2 ####[facility] LABORATORYCLIA [id number] [address] [place] WBC (Bld) [#/Vol] 10.64 10*3/uL Normal 3.70-11.00 [facility] Comment on above: Order Comment: Speci men Type: BLOOD SPECIMENOrdering Facility: [facility] Address: [address] [place] [address] Performed By: #### 5 8410-2 ####[facility] LABORATORYCLIA [id number] [place] [id number] [facility] ECHOon 12-26-2024 Echocardiography Echocardiography Report: Transthoracic Echo [facility] Date of service: 12/26/2024 12:23:03 PM Ordering physician: COLLEEN OLIVARES Exam indication: cardiomyopathy Technologist: Caterina Mao RUST Interpreting physician: Rojas Matthews MD PATIENT: Name: MRS. NA GOOD : 1935 Age: 89 years Gender: F History of heart failure with hospitalization and cardiomyopathy. Primary rhythm: sinus. Height: 157.50 cm BSA: 1.56 m Weight: 55.50 kg BMI: 22.4 kg/m Heart rate 85 bpm Blood pressure 141/89 mmHg Color Doppler was utilized to interrogate the cardiac valves assessed and spectral Doppler was utilized to determine the flow velocities and pressure gradients reported in this exam. Myocardial strain analysis was performed in this exam to aid in the assessment of cardiac function. MEASUREMENTS: Value Indexed Normal Max aortic dimension 3.0 cm Ao < 3.8 Left atrium diameter 3.6 cm (2D) Left atrial volume 45 ml (Recio's) 29 ml/m Ruthann <= 34 LV ID (diastole) 5.9 cm (2D) 3.77 cm/m LV ID (systole) 5.6 cm (2D) 3.60 cm/m IVS, leaflet tips 0.9 cm (2D) Posterior wall thickness 1.0 cm (2D) Left ventricular mass 221 g (2D) 142 g/m Global peak long strain -3.6 % LV stroke volume 38 ml (2D biplane) LV end diastolic volume 153 ml (2D biplane) 98.0 ml/m 29<=EDVi<62 LV end systolic volume 115 ml (2D biplane) 74.0 ml/m Ejection Fraction 25 % (2D biplane) EF > 54 FINDINGS: LEFT VENTRICLE The left ventricle is severely dilated. Left ventricular systolic function is severely decreased. Global LV myocardial strain is abnormal. Grade I left ventricular diastolic dysfunction. Mitral annular lateral E/e': 10.1. Mitral annular septal E/e': 13.1. Wall Motion: The entire anterior wall, entire lateral wall, entire septum, entire apex, and entire inferior wall are severely hypokinetic. RIGHT VENTRICLE The right ventricle is normal in size. Right ventricular systolic function is moderately decreased. RV systolic tissue Doppler velocity is 7.8 cm/s. Tricuspid annular displacement is 0.9 cm. Estimated right ventricular systolic pressure is not reported due to an insufficient tricuspid regurgitation signal. Estimated right atrial pressure is 3 mmHg based on IVC assessment. LEFT ATRIUM The left atrial cavity is normal in size. RIGHT ATRIUM The right atrial cavity is normal in size. Inferior Vena Cava: The inferior vena cava appears normal measuring 1.0 cm. The vessel decreases greater than 50 percent with inspiration. MITRAL VALVE There is mild mitral annular calcification observed anterior and posterior. There is trace (trace - 1+) mitral valve regurgitation. There is mild thickening. There is mild calcification. The pressure half time is 49 msec. The peak mitral E/A ratio is 0.52. The average mitral E/e' ratio is 11.6. The mitral flow deceleration time is 169 msec. TRICUSPID VALVE There is trace tricuspid valve regurgitation. There is mild thickening. The hepatic venous pattern showed normal systolic flow. AORTIC VALVE There is mild to moderate (1+ - 2+) aortic valve regurgitation. Tricuspid aortic valve. There is mild thickening. There is mild calcification. The peak gradient is 5 mmHg (peak velocity = 114.0 cm/s). The LVOT diameter is 2.0 cm. PULMONIC VALVE The pulmonic valve cusps are structurally normal. There is trace pulmonic valve regurgitation. AORTA The visualized aorta is normal in size. Measurements - Aortic valve annulus 2.0 cm. Mid ascending aorta 3.0 cm. PULMONARY ARTERIES The pulmonary arteries are normal. INTERATRIAL SEPTUM There is no evidence of intracardiac shunting as detected by Doppler. PERICARDIUM There is a trivial pericardial effusion adjacent to the left ventricle. There is a pleural effusion. CONCLUSIONS: - Exam indication: cardiomyopathy - The left ventricle is severely dilated. Left ventricular systolic function is severely decreased. EF = 25 5% (2D biplane) Grade I left ventricular diastolic dysfunction. -There is mild to mooderate (1+ - 2+) aortic reguyrgitation. - The right ventricle is normal in size. Right ventricular systolic function is moderately decreased. - Exam was compared with the prior OUTSIDE echocardiographic exam performed on 01/28/15. LV function has decreased. * * * Final * * * CC [facility] Image : [id number] Normal [facility] NURSING PROGon 09-05-2025 NURSING PROG HNO ID: [id number] Author: RAULITO CHAVEZ, RN Service: Nursing Author Type: Registered Nurse Type: Nursing Progress Note Filed: 12/26/2024 14:50 Note Text: PATIENT EDUCATION HEART FAILURE PATIENT NAME: Na Good PATIENT LOCATION: [place] [address] [address] SURVIVAL SKILLS: Low Sodium Diet Weight Monitoring and Dry Weight Importance of Follow Up after Discharge Fluid Restriction, if applicable Heart Failure Medications Symptom Management related to heart failure Activity / Physical Exercise Recommendations Smoking cessation counseling if applicable When Patient Should Call Provider READINESS TO LEARN COGNITIVE ABILITY: Alert and oriented MOTIVATION TO LEARN: Interested FAMILY SUPPORT: High - Very involved in pt care INSTRUCTION PROVIDED TO: Patient and Son PATIENT LEARNS BEST BY: Multiple Methods FACTORS AFFECTING LEARNING: None PHYSICAL LIMITATIONS AFFECTING LEARNING: Sensory Deficit Hearing: Hard of Hearing LEARNING RESPONSE DIAGNOSIS: Heart Failure PATIENT/FAMILY RESPONSE: Initial visit for CHF education. Brief overview of CHF, s/s, and management of. Survival Skill discussed. Pt in assisted living in [place], this is fairly new for her. Children are all out of states. Son will discuss daily weight and low sodium meal plan w/ staff. Currently she orders off a menu @ meal times. Pt doesn't drink over 64 ounces per day, but unsure of intake. Medications are provided to her @ [place]. Additional Lasix was give JOINTER SUBMARINE CABLE. Pt states her normal weighs are b/t 122-125lb. Today's weight is 122lb. There are several exercise programs that pt likes to participate in-this is encouraged METHOD OF INSTRUCTION: Individual instruction Written instruction/Handouts Verbal instruction FOLLOW-UP PLAN: Patient instructed to call with any further issues Follow-up with Primary Care Recommend - Recommend continued instruction and follow up as directed Follow up with cardiology Follow up phone call. Contact information given. INSTRUCTIONAL AIDS USED: Heart Failure Binder SUPPLEMENTAL MATERIAL PROVIDED TO PATIENT: Heart Failure Binder/Booklet addressing low sodium diet, activity, medications, symptoms related to heart failure (call the physicians office if you gain or lose more than or equal to 4 pounds) , weight monitoring, and smoking cessation counseling if applicable. REFERRAL (RECOMMENDATION): Cardiology Patient Education Electronically Signed By: Raulito Chavez [facility] THERAPY NTon 12-26-2024 THERAPY NT HNO ID: [id number] Author: LESLIE BARRERA PT Service: Physical Therapy Author Type: Physical Therapist Type: Therapy (PT/OT/Speech/Resp) Filed: 12/26/2024 11:56 Note Text: Summary: PT eval Physical Therapy Evaluation Summary SERVICE DATE: 12/26/2024 SERVICE TIME: 1123 to 1146 ROOM: [id number] PT 6 Clicks Score: 18 DISCHARGE RECOMMENDATIONS Home PT Anticipated Discharge Needs: Physical Assist at Home, Supervision at Home Physical Assist at Home for: Cleaning, Laundry, Meals, Self Care, Shopping, Transportation, Medication Management, Transfers Supervision at Home due to: Decreased safety awareness Recommended Discharge Equipment: To Be Determined (might benefit from FWW at D/C if agreeable) ASSESSMENT Response to Therapy Interventions: Good Participation in Activities, Needs Frequent Redirection or Reinstruction Patient functioning below baseline this date. Verbal cueing required with all functional mobility. Bed mobility with SBA to CGA. Sit<>stand with CGA. Ambulated 50ft with CGA and FWW. Patient would benefit from HHPT to increase BLE ROM and strength, increase dynamic standing balance, and increase activity tolerance to improve ability to complete functional mobility with increased independence. PRECAUTIONS Bed/Chair Alarm, Fall Risk CURRENT HOSPITAL COURSE Patient is an 89 yr old female presents with abdominal pain and Shortness of Breath, admitted for acute on chronic CHF Relevant Past Medical History: verbal cues for proper sequence of movement, hand/foot placement for safety and to maintain WB restrictions HOME LIVING Patient Lives With: Facility Care ([facility]) Assistance Available: 24-Hour (has a necklace she wears to call for assistance) Entry To Home: No Stairs Number Of Stairs To Bed/Bath: 0 Tub/Shower Type: WIS Laundry: Staff completes Equipment Owned: Other: See Comment, Shower Chair, Emergency Response System (2 walking sticks) PRIOR FUNCTIONAL LEVEL Required Assistance Assistance Required With: Shopping, Transportation, Self Care, Medication Management, Meals, Laundry, Cleaning, Transfers Patient and dtr reports pt is independent with ADLs but staff assists with shower transfers and bathing tasks, ambulates with 2 walking sticks, denies falls in the past 6 months, facility completes IADLs including managing meds and pt ambulates to the dining area for lunch/dinner, staff brings breakfast to her room, sleeps on a flat bed SUBJECTIVE Patient alert and awake upon arrival. Agreeable to PT eval RANGE OF MOTION WFL STRENGTH Strength Limitation Comments: BLE grossly 3 to 3+/5 BALANCE Static Sitting Balance: Good Dynamic Sitting Balance: Good Static Standing Balance: Fair Dynamic Standing Balance: Fair THERAPY DIAGNOSIS Reduced mobility-other, Unsteadiness on feet TREATMENT INTERVENTIONS Evaluation, Therapeutic Exercise (10130) Timed Code Treatment (minutes): 8 Skilled Treatment Time (minutes): 23 $ Evaluation-Low (94655) Billed Units: 1 unit Therapeutic Exercise (09979) Treatment Minutes: 8 $ Therapeutic Exercise (78661) Billed Units: 1 unit TRAINING AND EDUCATION PROVIDED Anatomy and Impact on Deficits, Assistive Device Use, Bed Mobility, Benefits of In-Hospital Mobility, Discharge Planning, Energy Conservation, Exercise Program, Expected Functional Level, Falls Prevention, Gait Pattern, Reduction of Deviations, Home Safety, Home Set-up/Modifications, Patient Exercise/Therapy Program Support Needs, Positioning, Precautions/Restrictio ns, Pre-gait Activities, Role of Physical Therapy, Sitting Balance, Standing Balance, Transfers Exercise Ankle Pumps (number of reps): 20 ea Quad Sets (number of reps): 20 ea Glut Sets (number of reps): 20 LAQ (number of reps): 20ea Hip Abduction (number of reps): 20 ea Exercise: Donna completed in sitting. Patient educated on all exercises and completed them with good form THERAPEUTIC SKILLS USED Activity Dosing, Cues for Sequencing/Proper Technique for Activity, Cuing Verbal, Management of Critical Lines, Tubes and/or Drains, Movement Facilitation, Physical Assist, Teach-Back for Education FUNCTIONAL STATUS Bed Mobility Rolling: Stand By Assistance Supine To Sit: Stand By Assistance Sit to Supine: Contact Guard Assistance, Additional Information assist with BLE management Scooting: Stand By Assistance, Additional Information in chair Transfers Sit To Stand: Contact Guard Assistance, Additional Information verbal cues for hand/foot placement for safety Stand To Sit: Contact Guard Assistance, Additional Information verbal cues for hand/foot placement for safety and eccentric lowering Bed to Chair Contact Guard Assistance Bed To Chair Transfer Type: Stepping Bed To Chair Transfer Equipment: Wheele (more content not included)... Normal [facility] Basic metabolic 2000 panelon 12-25-2024 Anion gap [Moles/Vol] 10 mmol/L Normal 8-15 [facility] Comment on above: Order Comment: Speci men Type: BLOOD SPECIMENOrdering Facility: [facility] Address: [address] [place] [address] Performed By: #### 2 4321-2, 3015-3 ####[facility] [id number] [place] [address] [place]#### 3024-7 ####[facility] LAB[facility] [id number] [place] [address] [place] Calcium [Mass/Vol] 9.1 mg/dL Normal 8.5-10.2 [facility] Comment on above: Order Comment: Speci men Type: BLOOD SPECIMENOrdering Facility: [facility] Address: [address] [place] [address] Performed By: #### 2 4321-2, 6-3 ####[facility] [id number] [place] [address] [place]#### 3024-7 ####[facility] LAB[facility] [id number] [place] [address] [place] Chloride [Moles/Vol] 103 mmol/L Normal 98-107 [facility] Comment on above: Order Comment: Speci men Type: BLOOD SPECIMENOrdering Facility: [facility] Address: [address] [place] [address] Performed By: #### 2 4321-2, 6-3 ####[facility]ORY[facility] [id number] [place] [address] [place]#### 3024-7 ####[facility] LAB[facility] [id number] [place] [id number] [place] CO2 [Moles/Vol] 26 mmol/L Normal 22-30 [facility] Comment on above: Order Comment: Speci men Type: BLOOD SPECIMENOrdering Facility: [facility] Address: [address] [place] [address] Performed By: #### 2 4321-2, 3015-3 ####[facility]ORY[facility] [id number] [place] [address] [place]#### 3024-7 ####[facility] [id number] [place] [address] [place] Creatinine [Mass/Vol] 1.01 mg/dL High 0.58-0.96 [facility] Comment on above: Order Comment: Speci men Type: BLOOD SPECIMENOrdering Facility: [facility] Address: [address] [place] [address] Performed By: #### 2 4321-2, 6-3 ####[facility]ORYCL[facility] [id number] [place] [address] [place]#### 3024-7 ####[facility] [id number] [place] [id number] [place] eGFRcr SerPlBld CKD-EPI 2020 53 mL/min/1.73m??? Low >=60 [facility] Comment on above: Order Comment: Speci men Type: BLOOD SPECIMENOrdering Facility: [facility] Address: [address] [place] [address] Result Comment: Radha mated Glomerular Filtration Rate (eGFR) is calculated using the 2020 CKD-EPI creatinine equation. This equation utilizes serum creatinine, sex, and age as parameters. The creatinine assay has traceable calibration to isotope dilution-mass spectrometry. Refer to KDIGO guidelines for clinical interpretation. In patients with unstable renal function, e.g. those with acute kidney injury, the eGFR may not accurately reflect actual GFR. Performed By: #### 2 432-2, 3015-3 ####[facility] [id number] [place] [address] [place]#### 3024-7 ####[facility] [id number] [place] [id number] [place] Glucose [Mass/Vol] 80 mg/dL Normal 74-99 [facility] Comment on above: Order Comment: Vita florez Type: BLOOD SPECIMENOrdering Facility: [facility] Address: [address] [place] [address] Result Comment: The [place] Diabetes Association (ADA) provides guidance for cutoff values for fasting glucose and random glucose. The ADA defines fasting as no caloric intake for at least 8 hours. Fasting plasma glucose results between 100 to 125 mg/dL indicate increased risk for diabetes (prediabetes). Fasting plasma glucose results greater than or equal to 126 mg/dL meet the criteria for diagnosis of diabetes. In the absence of unequivocal hyperglycemia, results should be confirmed by repeat testing. In a patient with classic symptoms of hyperglycemia or hyperglycemic crisis, random plasma glucose results greater than or equal to 200 mg/dL meet the criteria for diagnosis of diabetes. Reference: Standards of Medical Care in Diabetes 2016, [place] Diabetes Association. Diabetes Care. 2016.39(Suppl 1). Performed By: #### 2 432-2, 3015- ####[facility] [id number] [place] [address] [place]#### 3024-7 ####[facility] LAB[facility] [id number] [place] [id number] [place] Potassium [Moles/Vol] 4.3 mmol/L Normal 3.7-5.1 [facility] Comment on above: Order Comment: Vita florez Type: BLOOD SPECIMENOrdering Facility: [facility] Address: [address] [place] [address] Performed By: #### 2 4321-2, 3016-3 ####[facility]ORYCLIA [id number] [place] [address] [place]#### 3024-7 ####[facility] LABCLIA [id number] [place] [id number] [place] Sodium [Moles/Vol] 139 mmol/L Normal 136-144 [facility] Comment on above: Order Comment: Speci men Type: BLOOD SPECIMENOrdering Facility: [facility] Address: [address] [place] [address] Performed By: #### 2 4321-2, 3015-3 ####[facility]ORYCL[facility] [id number] [address] STATES [facility]#### 3024-7 ####[facility] LABCLIA [id number] [place] [address] [place] Urea nitrogen [Mass/Vol] 25 mg/dL High 7-21 [facility] Comment on above: Order Comment: Speci men Type: BLOOD SPECIMENOrdering Facility: [facility] Address: [address] [place] [address] Performed By: #### 2 432-2, 3015-3 ####[facility]ORYCLIA [id number] [place] [address] [place]#### 3024-7 ####[facility]CL[facility] [id number] [place] [id number] [place] CBC panel Auto (Bld)on 12-25 Erythrocyte distribution width (RBC) [Ratio] 15.9 % High 11.5-15.0 [facility] Comment on above: Order Comment: Speci men Type: BLOOD SPECIMENOrdering Facility: [facility] Address: [address] [place] [address] Performed By: #### 5 8410-2 ####[facility]ORYCL[facility] [id number] [address] [place] Hematocrit (Bld) [Volume fraction] 40.0 % Normal 36.0-46.0 [facility] Comment on above: Order Comment: Speci men Type: BLOOD SPECIMENOrdering Facility: [facility] Address: [address] [place] [address] Performed By: #### 5 8410-2 ####[facility] [id number] [address] Hemoglobin (Bld) [Mass/Vol] 13.0 g/dL Normal 11.5-15.5 [facility] Comment on above: Order Comment: Speci men Type: BLOOD SPECIMENOrdering Facility: [facility] Address: [address] [place] [address] Performed By: #### 5 8410-2 ####[facility]ORYCL[facility] [id number] [address] MCH (RBC) [Entitic mass] 29.1 pg Normal 26.0-34.0 [facility] Comment on above: Order Comment: Speci men Type: BLOOD SPECIMENOrdering Facility: [facility] Address: [address] [place] [address] Performed By: #### 5 8410-2 ####[facility] [id number] [address] MCHC (RBC) [Mass/Vol] 32.5 g/dL Normal 30.5-36.0 [facility] Comment on above: Order Comment: Speci men Type: BLOOD SPECIMENOrdering Facility: [facility] Address: [address] [place] [address] Performed By: #### 5 8410-2 ####[facility]ORYCLIA [id number] [address] MCV (RBC) [Entitic vol] 89.7 fL Normal 80.0-100.0 [facility] Comment on above: Order Comment: Speci men Type: BLOOD SPECIMENOrdering Facility: [facility] Address: [address] [place] [address] Performed By: #### 5 8410-2 ####[facility]ORYCLIA [id number] [place] [address] [place] Nucleated RBC (Bld) [#/Vol] 10*3/uL Normal <0.01 [facility] Comment on above: Order Comment: Speci men Type: BLOOD SPECIMENOrdering Facility: [facility] Address: [address] [place] [address] Performed By: #### 5 8410-2 ####[facility]ORYCL[facility] [id number] [place] [address] [place] Platelet mean volume (Bld) [Entitic vol] 10.2 fL Normal 9.0-12.7 [facility] Comment on above: Order Comment: Speci men Type: BLOOD SPECIMENOrdering Facility: [facility] Address: [address] [place] [address] Performed By: #### 5 8410-2 ####[facility]ORYCLIA [id number] [place] [address] [place] Platelets (Bld) [#/Vol] 324 10*3/uL Normal 150-400 [facility] Comment on above: Order Comment: Speci men Type: BLOOD SPECIMENOrdering Facility: [facility] Address: [address] [place] [address] Performed By: #### 5 8410-2 ####[facility]ORYCLIA [id number] [place] [address] [place] RBC (Bld) [#/Vol] 4.46 10*6/uL Normal 3.90-5.20 [facility] Comment on above: Order Comment: Speci men Type: BLOOD SPECIMENOrdering Facility: [facility] Address: [address] [place] [address] Performed By: #### 5 8410-2 ####[facility]ORYCLIA [id number] [place] [id number] [place] WBC (Bld) [#/Vol] 9.63 10*3/uL Normal 3.70-11.00 [facility] Comment on above: Order Comment: Speci men Type: BLOOD SPECIMENOrdering Facility: [facility] Address: [address] [place] [address] Performed By: #### 5 8410-2 ####[facility]ORYCLIA [id number] [place] [address] [place] CONSULTon 12-25-2024 CONSULT HNO ID: [id number] Author: ROJAS MATTHEWS MD Service: Cardiovascular Medicine Author Type: Physician Type: Consults Filed: 12/25/2024 15:05 Note Text: . [facility] [place] Domenic Rayo Department of Cardiovascular Medicine [facility] Consultation Note Name: Na Good : 1935 Primary Physician: Johnson Watson MD, MD Consulting Physician: Liam Smith MD Primary Locomotive Observer: SERVICE DATE: December 25, 2024 ADMISSION HISTORY AND PHYSICAL: Na Good is an 89-year-old female who is presenting to the emergency department with vague epigastric/lower chest discomfort and feelings of shortness of breath. The shortness of breath seems to be when lying flat and on exertion. She has had a history of cardiomyopathy and pleural effusions and slight volume overload. Recently was on Lasix which did seem to help however her symptoms have been recurring over the last few days. She has been unable to sleep due to this discomfort and feelings of shortness of breath when lying flat. INITIAL CARDIOLOGY CONSULT ATION: 89-year-old patient with no recent follow-up in our system but 2006 echocardiogram demonstrating mildly dilated left ventricle with mild LV systolic dysfunction, LVEF 40%. Presents to the emergency room with several day history of progressive shortness of breath with activity, orthopnea and sensation of abdominal bloating. In terms of her prior history of AHA/ACC Stage C Chronic Heart Failure with Reduced Ejection Fraction, her apparent outpatient GDMT regimen consists of the following medications: Apixaban 2.5 mg twice daily, Jardiance 10 mg once daily, Crestor 5 mg once daily, spironolactone 25 mg once daily and Toprol-XL 25 mg once daily. PA and lateral chest x-ray are remarkable for cardiomegaly, complete loss of both hemidiaphragms with marked hilar congestion and vascular cephalization all consistent with probable pulmonary edema and bilateral pleural effusions. I personally reviewed and interpreted her admission laboratory studies which demonstrate the following: Electrolytes are within normal limits. Sodium 139. BUN 25 and creatinine 1.01. NT proBNP 24,602 pg/mL Hemoglobin 13 g/dL Microscopic urinalysis: Trace leukocyte Estrace and 0-5 WBCs per high-power field otherwise normal. PAST MEDICAL HISTORY Diagnosis Date ASCVD (arteriosclerotic cardiovascular disease) CAD (coronary artery disease) CHF (congestive heart failure) (HCC) Disorder of bone and cartilage, unspecified HTN (hypertension) Insomnia LV (left ventricular) mural thrombus Nonischemic cardiomyopathy (HCC) Other primary cardiomyopathies Cardiomyopathy Thyrotoxicosis without mention of goiter or other cause, without mention of thyrotoxic crisis or storm Hyperthyroidism Tremor PAST SURGICAL HISTORY Procedure Laterality Date APPENDECTOMY LIG/TRNSXJ FLP TUBE ABDL/VAG APPR UNI/BI Tubal ligation FAMILY HISTORY Problem Relation Age of Onset Hypertension Father SOCIAL HISTORY[1] Current Facility-Administered Medications Medication Dose Route Frequency apixaban 2.5 mg tab(s) (ELIQUIS) 2.5 mg ORAL BID spironolactone 12.5 mg tab(s) (ALDACTONE) 12.5 mg ORAL DAILY rosuvastatin 5 mg tab(s) (CRESTOR) 5 mg ORAL AT BEDTIME metoprolol succinate ER 25 mg tab(s) (TOPROL XL) 25 mg ORAL DAILY empagliflozin 10 mg tab(s) (JARDIANCE) 10 mg ORAL DAILY WITH BREAKFAST senna-docusate 8.6-50 mg 1 tablet (SENNA-S) 1 tablet ORAL DAILY PRN mirtazapine 30 mg (REMERON) 30 mg ORAL AT BEDTIME cholecalciferol 1,000 Units tab(s) (VITAMIN D3) 1,000 Units ORAL DAILY melatonin 3 mg tab(s) 3 mg ORAL AT BEDTIME b complex, c, folic acid 1 mg renal vitamins 1 capsule (NEPHROCAPS) 1 capsule ORAL DAILY NaCl 0.9% iv flush bag 20 mL INTRAVENOUS PRN acetaminophen 650 mg tab(s) (TYLENOL) 650 mg ORAL q 6 H PRN sodium chloride 0.9 % (flush) 2-10 mL (BD POSIFLUSH) 2-10 mL INTRAVENOUS DIRECTED PRN And perflutren lipid microspheres 1.1 mg/mL 1.3 mL injection (DEFINITY) 1.3 mL INTRAVENOUS DIRECTED PRN furosemide 20 mg injection (LASIX) 20 mg INTRAVENOUS q 12 H 6a/6p Allergies As of Date: 12/24/2024 Allergen Noted Reaction CORTISONE 03/17/2002 Fully Assessed 12/24/2024 REVIEW OF SYSTEMS: Multisystem review was negative except for positives described in history of present illness. Objective PHYSICAL EXAMINATION: BP 107/61 Pulse 86 Temp 36.4 ?C (97.5 ?F) (Oral) Resp 18 Ht 157.5 cm (5' 2") Wt 55.6 kg (122 lb 9.2 oz) SpO2 92% BMI 22.42 kg/m? General: Well appearing, in no acute distress. No complaints. Skin: No clubbing, no cyanosis. Eyes: Extra ocular movements intact Neck: no palpable thyromegaly. Lungs: Clear to auscultation bilaterally, no wheezing or rhonchi. Cardiovascular: JVP: 14 cm of water when examined seated upright Auscultation: S1-S2, somewhat diminished int (more content not included)... Normal [facility] HISTORY PHYSICALon HISTORY PHYSICAL HNO ID: [id number] Author: LIAM SMITH MD Service: General Internal Medicine Author Type: Physician Type: H&P Filed: 12/25/2024 14:11 Note Text: [facility] [place], [facility] BY [facility] ST[facility]FF PHYSICIAN NOTE OF PERSONAL INVOLVEMENT IN CARE I have reviewed the history and physical examination obtained and documented by the nurse practitioner and I personally participated in the south components. I have discussed the case and management of the patient's care. The following comments revise or confirm relevant south components of their note. IMPRESSION: This is a 89 year old female who presents with acute on chronic decompensated combined systolic and diastolic CHF. PLAN: Diurese with IV Lasix. Plan of care discussed with Provider, RN, Patient CARE COORDINATION: The majority of the visit was spent counseling and/or coordinating care for the patient. Tfxp-ai-nhqz time was 35 minutes SIGNATURE: Liam Smith MD DATE of SERVICE: December 25, 2024 TIME of SERVICE: 2:10 PM History and Physical Examination SERVICE DATE: 12/24/2024 SERVICE TIME: 1730 PCP: Johnson Watson MD, MD PRIMARY ATTENDING: Liam Noel MD Subjective CHIEF COMPLAINT: shortness of breath since yesterday. Recently found to have fluid in her lungs, was given two days worth of Lasix at Assisted Living facility.) HPI: Patient is a 89 year old female with PMH of chf (per chart review -July 2024 EF 28%), LV thrombus (eliquis), HTN, tremors, macular degeneration, CAD, CABAZON, and insomnia. Her medical records in [facility] are from [place], [place]. Daughter, Janelle is at the bedside. (She is from [place]). She moved back to [place] in August due to the altitude- shortness of breath. She is residing at [facility] in [place]. She does not know all her medications as they administer them for her. She provided AL paperwork. She is A/ox3, very CABAZON, she uses 2 walking sticks to ambulate, she has NEW/ occasional dry, non productive cough, she is on RA, lungs diminished, no edema. Daughter requesting cardiology to see her since she has not established a air transportation provider since moving here. Daughter informs me while visiting her mother, patient hasn't been sleeping well. Has bilat discomfort at the sides/by her ribs. She denies any falls. She states they went out yesterday and patient was fine until last night, more sob than usual. Patient states she has been getting sob for last week or so. But last night was worse. She does not have swelling or edema. In the ER she received 20mg of IV lasix. Lab significant for: VBG?s on RA: Ph 7.41, pCO2 40, pO2 <31, bicarb 25, oxyhemoglobin 52, o2 saturation, venous 53 No leukocytosis, anemia however elevated ANC 7.72 BNP 24,602, hsTNT 33 She will be admitted under Dr. Smith for further management. History provided by: patient, family member, and outside medical records FUNCTIONAL STATUS: Partially dependent PAST MEDICAL HISTORY Diagnosis Date ASCVD (arteriosclerotic cardiovascular disease) CAD (coronary artery disease) CHF (congestive heart failure) (HCC) Disorder of bone and cartilage, unspecified HTN (hypertension) Insomnia LV (left ventricular) mural thrombus Nonischemic cardiomyopathy (HCC) Other primary cardiomyopathies Cardiomyopathy Thyrotoxicosis without mention of goiter or other cause, without mention of thyrotoxic crisis or storm Hyperthyroidism Tremor PAST SURGICAL HISTORY Procedure Laterality Date APPENDECTOMY LIG/TRNSXJ FLP TUBE ABDL/VAG APPR UNI/BI Tubal ligation FAMILY HISTORY Problem Relation Age of Onset Hypertension Father SOCIAL HISTORY[1] I have confirmed and edited as necessary, the PFSH obtained by others. ALLERGIES Allergen Reactions Cortisone facial swelling after IM injection Prior to Admission Medications Prescriptions Last Dose Informant Patient Reported? Taking? ALDACTONE 25 mg tablet Yes Yes Sig: Take 12.5 mg by mouth once daily. CALCIUM + D 600MG TABLET No Yes Sig: Take one(1) tablet two(2) times daily. Cholecalciferol, Vitamin D3, 25 mcg (1,000 unit) cap Yes Yes Sig: Take 1,000 Units by mouth once daily. JARDIANCE 10 mg tablet Yes Yes Sig: Take 10 mg by mouth daily with breakfast. MULTIVITAMIN TABLET No Yes Sig: Take one(1) tablet daily. TOPROL XL 25 MG 24 HR TAB Yes Yes Sig: Take one(1) tablet daily. apixaban (ELIQUIS) 2.5 mg tab(s) Yes Yes Sig: Take 2.5 mg by mouth two times a day. melatonin 2.5 mg chew Yes Yes Sig: Take 2.5 mg by mouth daily at bedtime. mirtazapine (REMERON) 30 mg tablet Yes Yes Sig: Take 30 mg by mouth daily at bedtime. rosuvastatin (CRESTOR) 5 mg tablet Yes Yes Sig: Take 5 mg by mouth once daily. senna-docusate (SENEXON-S) 8.6-50 mg per tablet Yes Yes Sig: Take 1 tablet by mouth once daily as needed for constipation. Facility-Administered Medications: None REVIEW OF SYSTEMS: Review of Systems Constitutional: Negative for activity change, appetite change and fatigue. Respiratory: P (more content not included)... Normal [facility] T4 Free SerPl-mCncon 025 Free T4 [Mass/Vol] 1.9 ng/dL High 0.9-1.7 [facility] Comment on above: Order Comment: Speci men Type: BLOOD SPECIMENOrdering Facility: [facility] Address: [address] [place], [place] [address] Performed By: #### 2 4321-2, 3016-3 ####[facility] LABORATORYCLIA [id number] [place] [address] [place]#### 3024-7 ####[facility] LABCLIA [id number] [address] [address] [place] THERAPY NTon 12-25-2024 THERAPY NT HNO ID: [id number] Author: CAROLE HUGHES OT/Amy Service: Occupational Therapy Author Type: Occupational Therapist Type: Therapy (PT/OT/Speech/Resp) Filed: 12/25/2024 11:37 Note Text: Summary: OT Evaluation Occupational Therapy Evaluation Summary SERVICE DATE: 12/25/2024 SERVICE TIME: 1103 to 1127 ROOM: [place] [address] OT 6 Clicks Score: 20 DISCHARGE RECOMMENDATIONS Home Recommended Discharge Disposition Comments: return to [facility] Anticipated Discharge Needs: Physical Assist at Home, Supervision at Home Physical Assist at Home for: Cleaning, Laundry, Meals, Self Care, Shopping, Transportation, Medication Management, Transfers Supervision at Home due to: Decreased safety awareness Recommended Discharge Equipment: No equipment needs anticipated ASSESSMENT Response to Therapy Interventions: Good Participation in Activities, On-Track to Achieve Discharge Goals Patient is functioning near baseline with ADLs and functional mobility/transfers, very CABAZON, follows commands appropriately, reports no questions/concerns for returning to [facility] PRECAUTIONS Bed/Chair Alarm, Fall Risk CURRENT HOSPITAL COURSE Patient presents with abdominal pain and Shortness of Breath, admitted for acute on chronic CHF Relevant Past Medical History: cardiomyopathy, goiter, osteopenia, pleural effusions, macular degeneration, tremors, HTN, LV thrombus, CHF, CABAZON, insomnia HOME LIVING Patient Lives With: Facility Care ([facility]) Assistance Available: 24-Hour (has a necklace she wears to call for assistance) Entry To Home: No Stairs Number Of Stairs To Bed/Bath: 0 Tub/Shower Type: WIS Laundry: Staff completes Equipment Owned: Other: See Comment, Shower Chair, Emergency Response System (walking sticks, DME per facility) PRIOR FUNCTIONAL LEVEL Required Assistance Assistance Required With: Shopping, Transportation, Self Care, Medication Management, Meals, Laundry, Cleaning, Transfers Patient and dtr reports pt is independent with ADLs but staff assists with shower transfers and bathing tasks, ambulates with 2 walking sticks, denies falls in the past 6 months, facility completes IADLs including managing meds and pt ambulates to the dining area for lunch/dinner, staff brings breakfast to her room, sleeps on a flat bed Baseline Cognition: Oriented to self, Oriented to place, Oriented to time, Oriented to situation SUBJECTIVE Patient pleasant and agreeable to this session, RN cleared to work with, dtr present throughout COGNITION Responsiveness: Alert, Awake Follows Commands: 3-step Commands THERAPY DIAGNOSIS Reduced mobility-other, Decreased activities of daily living (ADL) TREATMENT INTERVENTIONS Evaluation, Self Senior Living Management ([address]) Timed Code Treatment (minutes): 9 Skilled Treatment Time (minutes): 24 TRAINING AND EDUCATION PROVIDED Activity Adaptation/Web Support Engineer y Strategies, Adaptive Equipment/DME, Bed Mobility, Benefits of In-Hospital Mobility, Cognitive Skills, Command Following, Discharge Planning, Expected Functional Level, Functional Mobility Involving ADLs, Insight into Deficits, Lower Extremity Dressing, Memory/Attention, Orientation, Positioning, Role of Occupational Therapy, Safety/Judgment, Sitting Balance to Improve [place] with ADLs/Self-Care, Standing Balance to Improve [place] with ADLs/Self-Care, Transfer - Bed to Chair, Transfer - Sit to Stand THERAPEUTIC SKILLS USED Activity Dosing, Cues for Sequencing/Proper Technique for Activity, Cuing Visual, Cuing Verbal, Cuing Tactile, Facilitation of Joint Range of Motion, Family Training, Muscle Activation Facilitation, Movement Facilitation, Physical Assist, Task Analysis Learning, Teach-Back for Education, Therapeutic Use of Self FUNCTIONAL STATUS Activities of Daily Living Assist Level Additional Information Feeding Independent Grooming Contact Guard Assistance, Additional Information if standing at the sink/counter Bathing Upper Body Stand By Assistance Bathing Lower Body Moderate Assistance Dressing Upper Body Stand By Assistance Dressing Lower Body Additional Information, Contact Guard Assistance to don shoes seated EOB and for standing portion Toileting Stand By Assistance Mobility Assist Level Additional Information Bed Mobility Scooting: Contact Guard Assistance To EOB Supine To Sit: Stand By Assistance Sit To Supine: Additional Information Pt sitting in the chair upon OT departure Sit to Stand Contact Guard Assistance, Additional Information from EOB to FWW level Stand to Sit Contact Guard Assistance, Additional Information cueing for slow controlled descent Bed to Chair Contact Guard Assistance Bed To Chair Transfer Type: Stepping Bed To Chair Transfer Equipment: Wheeled Walker, Gait Belt Toilet/Commode S (more content not included)... [facility] TSH SerPl-aCncon 12-25-2024 TSH Qn 0.326 m[IU]/L Normal 0.270-4.200 [facility] Comment on above: Order Comment: Speci men Type: BLOOD SPECIMENOrdering Facility: [facility] Address: [address] [place] [address] Performed By: #### 2 4321-2, 3016-3 ####[facility]ORATORYCLIA [id number] [address]#### 3024-7 ####[facility] LABCLIA [id number] [address] [place] ALLIED HEALTHon 12-24-2024 ALLIED HEALTH HNO ID: [id number] Author: PETER RAHMAN RT(R) Service: Radiology Author Type: Pipe Bending Machine Operator Type: Allied Health Filed: 12/24/2024 13:03 Note Text: Radiology Service Progress Note PATIENT NAME: Na Good DATE OF SERVICE: December 24, 2024 TIME: 1:03 PM PATIENT IDENTITY VERIFICATION COMPLETED USING TWO (2) IDENTIFIERS: Name and Date of confirmed by identification band. FALL SCREENING: Has the patient had 2 falls in the last year or 1 fall with injury or currently using an Ambulatory Assistive Device (Walker, Cane, Wheelchair, Crutches, etc.)? No PATIENT GENDER DATA: Assigned female at . status: : No status: NO. PATIENT RELEVANT IMPLANT DATA REVIEWED: Not Applicable PATIENT PRESENTS WITH AN IMPLANTABLE OR ATTACHED PLANT TAXONOMY TEACHER: No RADIOLOGY DEPARTMENT: General X-ray: Exam(s) Completed: Chest X-Ray PERIPHERAL IV DATA: Not applicable SIGNED BY: RT Lary(R) December 24, 2024 1:03 PM [facility] Basic metabolic 2000 panelon 12-24-2024 Anion gap [Moles/Vol] 12 mmol/L Normal 8-15 [facility] Comment on above: Order Comment: Speci men Type: BLOOD SPECIMENOrdering Facility: [facility] Address: [address] [place] [address] Performed By: #### 3 3762-6, HSTNT, 33138-4, 3016-3, 00312-4 ####[facility] LABORATORYCLIA [id number] [place] [address] [place] Calcium [Mass/Vol] 9.5 mg/dL Normal 8.5-10.2 [facility] Comment on above: Order Comment: Speci men Type: BLOOD SPECIMENOrdering Facility: [facility] Address: [address] [place] [address] Performed By: #### 3 3762-6, HSTNT, 32612-5, 3016-3, 50000-0 ####[facility] LABORATORYCLIA [id number] [place] [address] [place] Chloride [Moles/Vol] 101 mmol/L Normal 98-107 [facility] Comment on above: Order Comment: Speci men Type: BLOOD SPECIMENOrdering Facility: [facility] Address: [address] [place] [address] Performed By: #### 3 3762-6, HSTNT, 27516-1, 3016-3, 38334-3 ####[facility] LABORATORYCLIA [id number] [place] [id number] [place] CO2 [Moles/Vol] 23 mmol/L Normal 22-30 [facility] Comment on above: Order Comment: Speci men Type: BLOOD SPECIMENOrdering Facility: [facility] Address: [address] [place] [address] Performed By: #### 3 3762-6, HSTNT, 59466-6, 3016-3, 28137-1 ####[facility]ORATORYCLIA [id number] [place] [address] [place] Creatinine [Mass/Vol] 0.87 mg/dL Normal 0.58-0.96 [facility] Comment on above: Order Comment: Vita florez Type: BLOOD SPECIMENOrdering Facility: [facility] Address: [address] [place] [address] Performed By: #### 3 3762-6, HSTNT, 48050-7, 3016-3, 26795-2 ####[facility]ORATORYCLIA [id number] [place] [id number] [place] eGFRcr SerPlBld CKD-EPI 2020 64 mL/min/1.73m??? Normal >=60 [facility] Comment on above: Order Comment: Vita florez Type: BLOOD SPECIMENOrdering Facility: [facility] Address: [address] [place] [address] Result Comment: Radha mated Glomerular Filtration Rate (eGFR) is calculated using the 2020 CKD-EPI creatinine equation. This equation utilizes serum creatinine, sex, and age as parameters. The creatinine assay has traceable calibration to isotope dilution-mass spectrometry. Refer to KDIGO guidelines for clinical interpretation. In patients with unstable renal function, e.g. those with acute kidney injury, the eGFR may not accurately reflect actual GFR. Performed By: #### 3 3762-6, HSTNT, 08536-1, 3016-3, 52764-0 ####[facility] LABORATORYCLIA [id number] [place] [address] [place] Glucose [Mass/Vol] 95 mg/dL Normal 74-99 [facility] Comment on above: Order Comment: Vita florez Type: BLOOD SPECIMENOrdering Facility: [facility] Address: [address] [place] [address] Result Comment: The [place] Diabetes Association (ADA) provides guidance for cutoff values for fasting glucose and random glucose. The ADA defines fasting as no caloric intake for at least 8 hours. Fasting plasma glucose results between 100 to 125 mg/dL indicate increased risk for diabetes (prediabetes). Fasting plasma glucose results greater than or equal to 126 mg/dL meet the criteria for diagnosis of diabetes. In the absence of unequivocal hyperglycemia, results should be confirmed by repeat testing. In a patient with classic symptoms of hyperglycemia or hyperglycemic crisis, random plasma glucose results greater than or equal to 200 mg/dL meet the criteria for diagnosis of diabetes. Reference: Standards of Medical Care in Diabetes 2016, [place] Diabetes Association. Diabetes Care. 2016.39(Suppl 1). Performed By: #### 3 3762-6, HSTNT, 97746-6, 3016-3, 19164-5 ####[facility] LABORATORYCLIA [id number] [place] [address] [place] Potassium [Moles/Vol] 5.1 mmol/L Normal 3.7-5.1 [facility] Comment on above: Order Comment: Valei gautam Type: BLOOD SPECIMENOrdering Facility: [facility] Address: [address] [place] [address] Performed By: #### 3 3762-6, HSTNT, 07693-8, 3016-3, 33403-2 ####[facility] LABORATORYCLIA [id number] [address] [place] Sodium [Moles/Vol] 136 mmol/L Normal 136-144 [facility] Comment on above: Order Comment: Vita florez Type: BLOOD SPECIMENOrdering Facility: [facility] Address: [address] [place] [address] Performed By: #### 3 3762-6, HSTNT, 95467-8, 3016-3, 62095-0 ####[facility]ORATORYCLIA [id number] [address] [place] Urea nitrogen [Mass/Vol] 24 mg/dL High 7-21 [facility] Comment on above: Order Comment: Vita florez Type: BLOOD SPECIMENOrdering Facility: [facility] Address: [address] [place] [address] Performed By: #### 3 3762-6, HSTNT, 81814-1, 3016-3, 12933-3 ####[facility] LABORATORYCLIA [id number] [place] [address] [place] CBC W Auto Differential pane l (Bld)on 12-24-2024 Basophils (Bld) [#/Vol] 0.09 10*3/uL Normal <0.11 [facility] Comment on above: Order Comment: Valei men Type: BLOOD SPECIMENOrdering Facility: [facility] Address: [address] [place] [address] Performed By: #### 5 7021-8 ####[facility] LABORATORYCLIA [id number] [place] [address] [place] Basophils/100 WBC (Bld) 0.9 % Normal [facility] Comment on above: Order Comment: Speci men Type: BLOOD SPECIMENOrdering Facility: [facility] Address: [address] [place] [address] Performed By: #### 5 7021-8 ####[facility] LABORATORYCLIA [id number] [place] [address] [place] Differential cell count method Nom (Bld) Auto Normal [facility] Comment on above: Order Comment: Speci men Type: BLOOD SPECIMENOrdering Facility: [facility] Address: [address] [place] [address] Performed By: #### 5 7021-8 ####[facility] LABORATORYCLIA [id number] [place] [address] [place] Eosinophils (Bld) [#/Vol] 0.04 10*3/uL Normal <0.46 [facility] Comment on above: Order Comment: Speci men Type: BLOOD SPECIMENOrdering Facility: [facility] Address: [address] [place] [address] Performed By: #### 5 7021-8 ####[facility] LABORATORYCLIA [id number] [address] [place] Eosinophils/100 WBC (Bld) 0.4 % Normal [facility] Comment on above: Order Comment: Speci men Type: BLOOD SPECIMENOrdering Facility: [facility] Address: [address] [place] [address] Performed By: #### 5 7021-8 ####[facility] LABORATORYCLIA [id number] [place] [address] [place] Erythrocyte distribution width (RBC) [Ratio] 16.1 % High 11.5-15.0 [facility] Comment on above: Order Comment: Speci men Type: BLOOD SPECIMENOrdering Facility: [facility] Address: [address] [place] [address] Performed By: #### 5 7021-8 ####[facility] LABORATORYCLIA [id number] [address] [place] Hematocrit (Bld) [Volume fraction] 42.0 % Normal 36.0-46.0 [facility] Comment on above: Order Comment: Speci men Type: BLOOD SPECIMENOrdering Facility: [facility] Address: [address] [place] [address] Performed By: #### 5 7021-8 ####[facility] LABORATORYCLIA [id number] [place] [address] [place] Hemoglobin (Bld) [Mass/Vol] 14.0 g/dL Normal 11.5-15.5 [facility] Comment on above: Order Comment: Speci men Type: BLOOD SPECIMENOrdering Facility: [facility] Address: [address] [place] [address] Performed By: #### 5 7021-8 ####[facility] LABORATORYCLIA [id number] [place] [address] [place] Immature granulocytes (Bld) [#/Vol] 0.04 10*3/uL Normal <0.10 [facility] Comment on above: Order Comment: Speci men Type: BLOOD SPECIMENOrdering Facility: [facility] Address: [address] [place] [address] Performed By: #### 5 7021-8 ####[facility]ORATORYCLIA [id number] [address] [place] Immature granulocytes/100 WBC (Bld) 0.4 % Normal [facility] Comment on above: Order Comment: Speci men Type: BLOOD SPECIMENOrdering Facility: [facility] Address: [address] [place] [address] Performed By: #### 5 7021-8 ####[facility] LABORATORYCLIA [id number] [place] [address] [place] [facility] [place] Lymphocytes (Bld) [#/Vol] 1.01 10*3/uL Normal 1.00-4.00 [facility] Comment on above: Order Comment: Speci men Type: BLOOD SPECIMENOrdering Facility: [facility] Address: [address] [place] [address] Performed By: #### 5 7021-8 ####[facility]ORATORYCLIA [id number] [address] Lymphocytes/100 WBC (Bld) 10.4 % Normal [facility] Comment on above: Order Comment: Speci men Type: BLOOD SPECIMENOrdering Facility: [facility] Address: [address] [place] [address] Performed By: #### 5 7021-8 ####[facility]ORATORYCLIA [id number] [address] MCH (RBC) [Entitic mass] 30.0 pg Normal 26.0-34.0 [facility] Comment on above: Order Comment: Speci men Type: BLOOD SPECIMENOrdering Facility: [facility] Address: [address] [place] [address] Performed By: #### 5 7021-8 ####[facility]ORATORYCLIA [id number] [address] MCHC (RBC) [Mass/Vol] 33.3 g/dL Normal 30.5-36.0 [facility] Comment on above: Order Comment: Speci men Type: BLOOD SPECIMENOrdering Facility: [facility] Address: [address] [place] [address] Performed By: #### 5 7021-8 ####[facility]ORATORYCLIA [id number] [address] MCV (RBC) [Entitic vol] 90.1 fL Normal 80.0-100.0 [facility] Comment on above: Order Comment: Speci men Type: BLOOD SPECIMENOrdering Facility: [facility] Address: [address] [place] [address] Performed By: #### 5 7021-8 ####[facility]ORATORYCLIA [id number] [address] Monocytes (Bld) [#/Vol] 0.81 10*3/uL Normal <0.87 [facility] Comment on above: Order Comment: Speci men Type: BLOOD SPECIMENOrdering Facility: [facility] Address: [address] [place] [address] Performed By: #### 5 7021-8 ####[facility] LABORATORYCLIA [id number] [place] [address] [place] Monocytes/100 WBC (Bld) 8.3 % Normal [facility] Comment on above: Order Comment: Speci men Type: BLOOD SPECIMENOrdering Facility: [facility] Address: [address] [place] [address] Performed By: #### 5 7021-8 ####[facility] LABORATORYCLIA [id number] [place] [address] [place] Neutrophils (Bld) [#/Vol] 7.72 10*3/uL High 1.45-7.50 [facility] Comment on above: Order Comment: Speci men Type: BLOOD SPECIMENOrdering Facility: [facility] Address: [address] [place] [address] Performed By: #### 5 7021-8 ####[facility] LABORATORYCLIA [id number] [place] [address] [place] Neutrophils/100 WBC (Bld) 79.6 % Normal [facility] Comment on above: Order Comment: Speci men Type: BLOOD SPECIMENOrdering Facility: [facility] Address: [address] [place] [address] Performed By: #### 5 7021-8 ####[facility] LABORATORYCLIA [id number] [place] [address] [place] Nucleated RBC (Bld) [#/Vol] 10*3/uL Normal <0.01 [facility] Comment on above: Order Comment: Speci men Type: BLOOD SPECIMENOrdering Facility: [facility] Address: [address] [place] [address] Performed By: #### 5 7021-8 ####[facility] LABORATORYCLIA [id number] [place] [address] [place] Nucleated RBC/100 WBC (Bld) [Ratio] 0.0 /100 WBC Normal [facility] Comment on above: Order Comment: Speci men Type: BLOOD SPECIMENOrdering Facility: [facility] Address: [address] [place] [address] Performed By: #### 5 7021-8 ####[facility] LABORATORYCLIA [id number] [address] [place] Platelet mean volume (Bld) [Entitic vol] 10.4 fL Normal 9.0-12.7 [facility] Comment on above: Order Comment: Speci men Type: BLOOD SPECIMENOrdering Facility: [facility] Address: [address] [place] [address] [place] [address] Performed By: #### 5 7021-8 ####[facility] LABORATORYCLIA [id number] [place] [address] [place] Platelets (Bld) [#/Vol] 386 10*3/uL Normal 150-400 [facility] Comment on above: Order Comment: Speci men Type: BLOOD SPECIMENOrdering Facility: [facility] Address: [address] [place] [address] [place] [address] Performed By: #### 5 7021-8 ####[facility] LABORATORYCLIA [id number] [place] [address] [place] RBC (Bld) [#/Vol] 4.66 10*6/uL Normal 3.90-5.20 [facility] Comment on above: Order Comment: Speci men Type: BLOOD SPECIMENOrdering Facility: [facility] Address: [facility] [place] [address] Performed By: #### 5 7021-8 ####[facility] LABORATORYCLIA [id number] [place] [id number] [place] WBC (Bld) [#/Vol] 9.71 10*3/uL Normal 3.70-11.00 [facility] Comment on above: Order Comment: Speci men Type: BLOOD SPECIMENOrdering Facility: [facility] Address: [facility] [place] [address] Performed By: #### 5 7021-8 ####[facility] LABORATORYCLIA [id number] [place] [id number] [facility] [place] ECG COMPLETEon 12-24-2024 ECG COMPLETE Ventricular Rate : 9 5 BPM Atrial Rate : 95 BPM P-R Interval : 162 ms QRS Duration : 138 ms Q-T Interval : 396 ms QTC Calculation(Bazett) : 497 ms Calculated P [place] : -5 degrees Calculated R [place] : -33 degrees Calculated T [place] : 147 degrees NORMAL SINUS RHYTHM LEFT AXIS DEVIATION LEFT VENTRICULAR HYPERTROPHY WITH QRS WIDENING AND REPOLARIZATION ABNORMALITY ( R in aVL , [place] product ) CANNOT RULE OUT SEPTAL INFARCT , AGE UNDETERMINED ABNORMAL ECG NO PREVIOUS ECGS AVAILABLE Confirmed by ROJAS MATTHEWS MD ([id number]) on 12/25/2024 5:11:53 PM NAME : NA GOOD PID : [id number] : 1935 Gender : Female Race : ORD : [id number] Procedure Date : Dec 24 2024 19:25:38 Edit Date : Dec 25 2024 17:11:57 Diagnosis: NORMAL SINUS RHYTHM LEFT AXIS DEVIATION LEFT VENTRICULAR HYPERTROPHY WITH QRS WIDENING AND REPOLARIZATION ABNORMALITY ( R in aVL , Db product ) CANNOT RULE OUT SEPTAL INFARCT , AGE UNDETERMINED ABNORMAL ECG NO PREVIOUS ECGS AVAILABLE Confirmed by ROJAS MATTHEWS MD ([id number]) on 12/25/2024 5:11:53 PM Test Reason : Shortness of Breath Location : 5 : 3S 0311 Overread By : ROJAS MATTHEWS MD Edited By : ROJAS MATTHEWS MD Referred By : , Acquired by : [id number], [facility] ED PROV NOTEon 12-24-2024 ED PROV NOTE HNO ID: [id number] Author: OSCAR LIZARRAGA DO Service: Emergency Medicine Author Type: Physician Type: ED Provider Notes Filed: 12/24/2024 20:15 Note Text: ED Provider Note Patient Name: Na Good : 1935 SERVICE DATE: 12/24/24 History Patient presents with: Abdominal Pain: Upper abd discomfort and shortness of breath since yesterday. Recently found to have fluid in her lungs, was given two days worth of Lasix at [facility] facility. Na Good is an 89-year-old female who is presenting to the emergency department with vague epigastric/lower chest discomfort and feelings of shortness of breath. The shortness of breath seems to be when lying flat and on exertion. She has had a history of cardiomyopathy and pleural effusions and slight volume overload. Recently was on Lasix which did seem to help however her symptoms have been recurring over the last few days. She has been unable to sleep due to this discomfort and feelings of shortness of breath when lying flat. PAST MEDICAL HISTORY Diagnosis Date Disorder of bone and cartilage, unspecified Other primary cardiomyopathies Cardiomyopathy Thyrotoxicosis without mention of goiter or other cause, without mention of thyrotoxic crisis or storm Hyperthyroidism PAST SURGICAL HISTORY Procedure Laterality Date APPENDECTOMY LIG/TRNSXJ FLP TUBE ABDL/VAG APPR UNI/BI Tubal ligation FAMILY HISTORY Problem Relation Age of Onset Hypertension Father Social History[1] ALLERGIES Allergen Reactions Cortisone facial swelling after IM injection Review of Systems Constitutional: Negative for chills and fever. HENT: Negative for congestion, rhinorrhea and sore throat. Respiratory: Positive for chest tightness and shortness of breath. Negative for cough. Cardiovascular: Negative for chest pain, palpitations and leg swelling. Gastrointestinal: Negative for abdominal pain, diarrhea, nausea and vomiting. Genitourinary: Negative for dysuria and hematuria. Musculoskeletal: Negative for back pain. Skin: Negative for pallor, rash and wound. Neurological: Negative for headaches. Psychiatric/Behavioral : Negative for confusion. Physical Exam Vitals BP Pulse Temp Temp src Resp SpO2 Weight Height 12/24/24 1139 12/24/24 1139 12/24/24 1141 12/24/24 1141 12/24/24 1139 12/24/24 1139 12/24/24 1139 -- 129/87 (!) 91 36.1 ?C (97 ?F) Oral 20 (!) 94 % 59 kg (130 lb 1.1 oz) Physical Exam Vitals and nursing note reviewed. Constitutional: General: She is not in acute distress. Appearance: She is well-developed. HENT: Head: Normocephalic and atraumatic. Right Ear: External ear normal. Left Ear: External ear normal. Eyes: General: No scleral icterus. Right eye: No discharge. Left eye: No discharge. Conjunctiva/sclera: Conjunctivae normal. Pupils: Pupils are equal, round, and reactive to light. Cardiovascular: Rate and Rhythm: Normal rate and regular rhythm. Heart sounds: No murmur heard. No friction rub. No gallop. Pulmonary: Effort: Pulmonary effort is normal. No respiratory distress. Breath sounds: Examination of the right-lower field reveals decreased breath sounds and rales. Examination of the left-lower field reveals decreased breath sounds and rales. Decreased breath sounds and rales present. No wheezing. Chest: Chest wall: No tenderness. Abdominal: General: Bowel sounds are normal. There is no distension. Palpations: Abdomen is soft. There is no mass. Tenderness: There is no abdominal tenderness. There is no guarding or rebound. Musculoskeletal: General: No tenderness or deformity. Normal range of motion. Cervical back: Normal range of motion and neck supple. Lymphadenopathy: Cervical: No cervical adenopathy. Skin: General: Skin is warm and dry. Coloration: Skin is not pale. Findings: No erythema or rash. Neurological: Mental Status: She is alert and oriented to person, place, and time. Diagnostic Testing ED Labs Ordered and Reviewed - No data to display Procedures ED Course / Clinical Impression Clinical Impressions as of 12/24/242011 Acute on chronic congestive heart failure, unspecified heart failure type (HCC) Acute pulmonary edema (HCC) Hypervolemia, unspecified hypervolemia type Orthopnea MDM / Disposition / Plan Na Good is an 89-year-old female is presenting to the emergency department mainly with shortness of breath, orthopnea and inability to sleep over the last few days. On arrival she is borderline hypoxic saturating around 92%. Workup here consistent with volume overload in the setting of congestive heart failure exacerbation. Patient be given IV diuretics and will be admitted to the hospital for IV diuresis and pulmonary edema. She was given return precautions and discharged. History and Record Review Clinical information obtained from an independent historian. History obtained from or confirmed by: EMS (more content not included)... Normal [facility] Gas and Carbon monoxide pane l (BldV)on 12-24-2024 Base excess Calc (BldV) [Moles/Vol] 1 mmol/L Normal 0-2 [facility] Comment on above: Order Comment: Speci men Type: VENOUS BLOOD SPECIMENOrdering Facility: [facility] Address: [address] [place] [address] Performed By: #### 2 4344-4 ####[facility] RESPIRATORYCLIA [id number] [facility]AT[facility] [id number] [place] [address] Calcium.ionized (Bld) [Mass/Vol] 1.17 mmol/L Normal 1.08-1.30 [facility] Comment on above: Order Comment: Speci men Type: VENOUS BLOOD SPECIMENOrdering Facility: [facility] Address: [address] [place] [address] Performed By: #### 2 4344-4 ####[facility] RESPIRATORYCLIA [id number] [facility] [id number] [address] [address] Carboxyhemoglobin (BldV) [Mass fraction] 1.3 % Normal 0.0-2.0 [facility] Comment on above: Order Comment: Speci men Type: VENOUS BLOOD SPECIMENOrdering Facility: [facility] Address: [address] [place] [address] Result Comment: Carb oxyhemoglobin Reference Range for Smokers: 2.0-8.0% Performed By: #### 2 4344-4 ####[facility] RESPIRATORYIA [id number] [facility]AT[facility] [id number] [address] CO2 (BldV) [Partial pressure] 40 mm[Hg] Low 42-55 [facility] Comment on above: Order Comment: Speci men Type: VENOUS BLOOD SPECIMENOrdering Facility: [facility] Address: [address] [place] [address] Performed By: #### 2 4344-4 ####[facility]ATORYW[facility] [id number] [facility]PIRAT[facility] [id number] [address] CO2 adjusted to patient's actual temperature (BldV) [Partial pressure] Normal [facility] Comment on above: Order Comment: Speci men Type: VENOUS BLOOD SPECIMENOrdering Facility: [facility] Address: [address] [place] [address] Performed By: #### 2 4344-4 ####[facility] RESPIRATORYIA [id number] [facility]IRAT[facility] [id number] [address] HCO3 (Bld) [Moles/Vol] 25 mmol/L Normal 24-28 [facility] Comment on above: Order Comment: Speci men Type: VENOUS BLOOD SPECIMENOrdering Facility: [facility] Address: [address] [place] [address] Performed By: #### 2 4344-4 ####[facility] RESPIRATORYCLIA [id number] [facility]IRAT[facility] [id number] [address] Hemoglobin (Bld) [Mass/Vol] 13.8 g/dL Normal 11.5-15.5 [facility] Comment on above: Order Comment: Speci men Type: VENOUS BLOOD SPECIMENOrdering Facility: [facility] Address: [address] [place] [address] Performed By: #### 2 4344-4 ####[facility] RESPIRATORYCLIA [id number] [facility]IR[facility] [id number] [address] [address] Lactate [Moles/Vol] 2.2 mmol/L Normal 0.5-2.2 [facility] Comment on above: Order Comment: Speci men Type: VENOUS BLOOD SPECIMENOrdering Facility: [facility] Address: [address] [place] [address] Performed By: #### 2 4344-4 ####[facility] RESPIRATORYIA [id number] [facility]PIRATORY [id number] [address] Methemoglobin (Bld) [Mass fraction] % Normal 0.0-1.5 [facility] Comment on above: Order Comment: Speci men Type: VENOUS BLOOD SPECIMENOrdering Facility: [facility] Address: [address] [place] [address] Performed By: #### 2 4344-4 ####[facility] RESPIRATORYCLIA [id number] [facility]IRAT[facility] [id number] [address] O2 THERAPY RA=Room Air Normal [facility] Comment on above: Order Comment: Speci men Type: VENOUS BLOOD SPECIMENOrdering Facility: [facility] Address: [address] [place] [address] Performed By: #### 2 4344-4 ####[facility] RESPIRATORYCLIA [id number] [facility]PIRAT[facility] [id number] [address] [address] Oxygen (BldV) [Partial pressure] mm[Hg] Low 35-45 [facility] Comment on above: Order Comment: Speci men Type: VENOUS BLOOD SPECIMENOrdering Facility: [facility] Address: [address] [place] [address] Performed By: #### 2 4344-4 ####[facility] RESPIRATORYCLIA [id number] [facility]IRAT[facility] [id number] [address] [address] Oxygen adjusted to patient's actual temperature (BldV) [Partial pressure] Normal [facility] Comment on above: Order Comment: Speci men Type: VENOUS BLOOD SPECIMENOrdering Facility: [facility] Address: [address] [place] [address] Performed By: #### 2 4344-4 ####[facility] RESPIRATORYIA [id number] [facility]PIRATORY [id number] [address] [address] Oxygen saturation in Venous blood 53 % Low 60-85 [facility] Comment on above: Order Comment: Speci men Type: VENOUS BLOOD SPECIMENOrdering Facility: [facility] Address: [address] [place] [address] Performed By: #### 2 4344-4 ####[facility] RESPIRATORYIA [id number] [facility]IRAT[facility] [id number] [address] [address] Oxyhemoglobin (BldV) [Mass fraction] 52 % Low 60-85 [facility] Comment on above: Order Comment: Speci men Type: VENOUS BLOOD SPECIMENOrdering Facility: [facility] Address: [address] [place] [address] Performed By: #### 2 4344-4 ####[facility] RESPIRATORYCLIA [id number] [facility]AT[facility] [id number] [address] pH (BldV) 7.41 [pH] Normal 7.32-7.42 [facility] Comment on above: Order Comment: Speci men Type: VENOUS BLOOD SPECIMENOrdering Facility: [facility] Address: [address] [place] [address] Performed By: #### 2 4344-4 ####[facility] RESPIRATORYCLIA [id number] [facility] [id number] [address] pH adjusted to patient's actual temperature (BldV) Normal [facility] Comment on above: Order Comment: Speci men Type: VENOUS BLOOD SPECIMENOrdering Facility: [facility] Address: [address] [place], [place] [address] Performed By: #### 2 4344-4 ####[facility] RESPIRATORYCLIA [id number] [facility] RESPIRATORY [id number] [address] Potassium [Moles/Vol] 5.4 mmol/L High 3.5-5.0 [facility] Comment on above: Order Comment: Speci men Type: VENOUS BLOOD SPECIMENOrdering Facility: [facility] Address: [address] [place] [address] Performed By: #### 2 4344-4 ####[facility] RESPIRATORYCLIA [id number] [facility] [id number] [address] [address] HIGH SENSITIVITY TROPONIN To n 12-24-2024 Troponin T.cardiac High sensitivity method [Mass/Vol] 33 ng/L High <12 [facility] Comment on above: Order Comment: Speci men Type: BLOOD SPECIMENOrdering Facility: [facility] Address: [address] [place] [address] Performed By: #### 3 3762-6, HSTNT, 95495-9, 3016-3, 95551-1 ####[facility] LABORATORYCLIA [id number] [place] [address] [place] Magnesium SerPl-mCncon 12-24 Magnesium [Mass/Vol] 2.3 mg/dL Normal 1.7-2.3 [facility] Comment on above: Order Comment: Speci men Type: BLOOD SPECIMENOrdering Facility: [facility] Address: [address] [place] [address] Performed By: #### 3 3762-6, HSTNT, 18427-8, 3016-3, 41187-3 ####[facility] LABORATORYCLIA [id number] [place] [address] [place] NT-proBNP SerPl-mCncon 12-24 Natriuretic peptide.B prohormone N-Terminal [Mass/Vol] 80415 pg/mL High <450 [facility] Comment on above: Order Comment: Speci men Type: BLOOD SPECIMENOrdering Facility: [facility] Address: [address] [place] [address] Performed By: #### 3 3762-6, HSTNT, 61558-5, 3016-3, 18287-3 ####[facility] LABORATORYCLIA [id number] [address] [place] TSH SerPl-aCncon 12-24-2024 TSH Qn 0.465 m[IU]/L Normal 0.270-4.200 [facility] Comment on above: Order Comment: Speci men Type: BLOOD SPECIMENOrdering Facility: [facility] Address: [address] [place] [address] Performed By: #### 3 3762-6, HSTNT, 98711-7, 3016-3, 54590-6 ####[facility] LABORATORYCLIA [id number] [address] [place] XR CHEST 2V FRONTAL/LATon XR CHEST 2V FRONTAL/LAT * * *Final Report* * * DATE OF EXAM: Dec 24 2024 1:03PM MDX 5291 - XR CHEST 2V FRONTAL/LAT / PROCEDURE REASON: Cough * * * * Physician Interpretation * * * * EXAMINATION: CHEST RADIOGRAPH (2 VIEW FRONTAL and LATERAL) CLINICAL HISTORY: Cough, Shortness of breath MQ: XC2_6 EXAM DATE/TIME: 12/24/2024 1:03 PM COMPARISON: No relevant prior studies available. RESULT: Lines, tubes, and devices: None. Lungs and pleura: There are bilateral pleural effusions, with fluid extending to the major fissure. Groundglass and patchy opacities demonstrated in the bilateral lungs predominantly involving the lower lungs. The upper lungs are clear. No pneumothorax visualized. Cardiomediastinal silhouette: Difficult to evaluate cardiac silhouette due to bilateral pleural effusions. Bones and soft tissues: Unremarkable. IMPRESSION: Findings are suggestive of pulmonary edema. Superimposed infection cannot be excluded. Mold Forms Builder: KONSTANTIN Transcribe Date/Time: Dec 24 2024 1:15P Dictated by : ROXANE CRUZ MD This examination was interpreted and the report reviewed and electronically signed by: ROXANE CRUZ MD on Dec 24 2024 1:19PM EST [id number] Normal [facility] CBC-Complete Blood Cnt No Di ffon 12-11-2024 HCT Normal 37-47 [facility] Comment on above: Order Comment: 546.1 Result Comment: LABS WERE DONE 12/09/24 DOES NOT NEED REPEATED PER NURSE Performed By: #### L 100.0500, L500.4050 #### [facility] [address] [place], [address] HGB Normal 12.0-15.0 [facility] Comment on above: Order Comment: 546.1 Result Comment: LABS WERE DONE 12/09/24 DOES NOT NEED REPEATED PER NURSE Performed By: #### L 100.0500, L500.4050 #### [facility] [address] [place], [address] MCH Normal 27.0-32.0 [facility] Comment on above: Order Comment: 546.1 Result Comment: LABS WERE DONE 12/09/24 DOES NOT NEED REPEATED PER NURSE Performed By: #### L 100.0500, L500.4050 #### [facility] [address] [place], [address] MCHC Normal 32-36 [facility] Comment on above: Order Comment: 546.1 Result Comment: LABS WERE DONE 12/09/24 DOES NOT NEED REPEATED PER NURSE Performed By: #### L 100.0500, L500.4050 #### [facility] [address] [place], [address] MCV Normal 81-99 [facility] Comment on above: Order Comment: 546.1 Result Comment: LABS WERE DONE 12/09/24 DOES NOT NEED REPEATED PER NURSE Performed By: #### L 100.0500, L500.4050 #### [facility] [address] [place], [address] PLT Normal 150-450 [facility] Comment on above: Order Comment: 546.1 Result Comment: LABS WERE DONE 12/09/24 DOES NOT NEED REPEATED PER NURSE Performed By: #### L 100.0500, L500.4050 #### [facility] [address] [place], [address] RBC Normal 4.2-5.4 [facility] Comment on above: Order Comment: 546.1 Result Comment: LABS WERE DONE 12/09/24 DOES NOT NEED REPEATED PER NURSE Performed By: #### L 100.0500, L500.4050 #### [facility] [address] [place], [address] RDW CV Normal 11.6-14.6 [facility] Comment on above: Order Comment: 546.1 Result Comment: LABS WERE DONE 12/09/24 DOES NOT NEED REPEATED PER NURSE Performed By: #### L 100.0500, L500.4050 #### [facility] [address] [place], [address] RDW SD Normal 35.1-43.9 [facility] Comment on above: Order Comment: 546.1 Result Comment: LABS WERE DONE 12/09/24 DOES NOT NEED REPEATED PER NURSE Performed By: #### L 100.0500, L500.4050 #### [facility] [address] [place], [address] WBC Normal 4.4-11.0 [facility] Comment on above: Order Comment: 546.1 Result Comment: LABS WERE DONE 12/09/24 DOES NOT NEED REPEATED PER NURSE Performed By: #### L 100.0500, L500.4050 #### [facility] [address] [place], [address] Comprehensive Metabolic Prof ilon 12-11-2024 ALB Normal 3.4-4.8 [facility] Comment on above: Order Comment: 546.1 Result Comment: LABS WERE DONE 12/09/24 DOES NOT NEED REPEATED PER NURSE Performed By: #### L 100.0500, L500.4050 #### [facility] [address] [place], [address] ALK PHOS Normal 35-104 [facility] Comment on above: Order Comment: 546.1 Result Comment: LABS WERE DONE 12/09/24 DOES NOT NEED REPEATED PER NURSE Performed By: #### L 100.0500, L500.4050 #### [facility] [address] [place], [address] ALT Normal <=34 [facility] Comment on above: Order Comment: 546.1 Result Comment: LABS WERE DONE 12/09/24 DOES NOT NEED REPEATED PER NURSE Performed By: #### L 100.0500, L500.4050 #### [facility] [address] [place], [address] AST Normal <=31 [facility] Comment on above: Order Comment: 546.1 Result Comment: LABS WERE DONE 12/09/24 DOES NOT NEED REPEATED PER NURSE Performed By: #### L 100.0500, L500.4050 #### [facility] [address] [place], [address] BUN Normal 4-19 [facility] Comment on above: Order Comment: 546.1 Result Comment: LABS WERE DONE 12/09/24 DOES NOT NEED REPEATED PER NURSE Performed By: #### L 100.0500, L500.4050 #### [facility] [address] [place], [address] BUN/CRE Normal 10-20 [facility] Comment on above: Order Comment: 546.1 Result Comment: LABS WERE DONE 12/09/24 DOES NOT NEED REPEATED PER NURSE Performed By: #### L 100.0500, L500.4050 #### [facility] [address] [place], [address] Calcium Normal 7.6-11.0 [facility] Comment on above: Order Comment: 546.1 Result Comment: LABS WERE DONE 12/09/24 DOES NOT NEED REPEATED PER NURSE Performed By: #### L 100.0500, L500.4050 #### [facility] [address] [place], [address] CL Normal 98-108 [facility] Comment on above: Order Comment: 546.1 Result Comment: LABS WERE DONE 12/09/24 DOES NOT NEED REPEATED PER NURSE Performed By: #### L 100.0500, L500.4050 #### [facility] [address] [place], [address] CO2 Normal 21.0-32.0 [facility] Comment on above: Order Comment: 546.1 Result Comment: LABS WERE DONE 12/09/24 DOES NOT NEED REPEATED PER NURSE Performed By: #### L 100.0500, L500.4050 #### [facility] [address] [place], [address] CREAT,SERUM Normal 0.70-1.20 [facility] Comment on above: Order Comment: 546.1 Result Comment: LABS WERE DONE 12/09/24 DOES NOT NEED REPEATED PER NURSE Performed By: #### L 100.0500, L500.4050 #### [facility] [address] [place], [address] eGFR Normal >60 [facility] Comment on above: Order Comment: 546.1 Result Comment: LABS WERE DONE 12/09/24 DOES NOT NEED REPEATED PER NURSE Performed By: #### L 100.0500, L500.4050 #### [facility] [address] [place], [address] GAP Normal 5-15 [facility] Comment on above: Order Comment: 546.1 Result Comment: LABS WERE DONE 12/09/24 DOES NOT NEED REPEATED PER NURSE Performed By: #### L 100.0500, L500.4050 #### [facility] [address] [place], [address] GLU Normal 70-99 [facility] Comment on above: Order Comment: 546.1 Result Comment: LABS WERE DONE 12/09/24 DOES NOT NEED REPEATED PER NURSE Performed By: #### L 100.0500, L500.4050 #### [facility] [address] [place], [address] Potassium Normal 3.3-5.1 [facility] Comment on above: Order Comment: 546.1 Result Comment: LABS WERE DONE 12/09/24 DOES NOT NEED REPEATED PER NURSE Performed By: #### L 100.0500, L500.4050 #### [facility] [address] [place], [address] T BILI Normal 0.00-1.30 [facility] Comment on above: Order Comment: 546.1 Result Comment: LABS WERE DONE 12/09/24 DOES NOT NEED REPEATED PER NURSE Performed By: #### L 100.0500, L500.4050 #### [facility] [address] [place], [address] T PROT Normal 5.9-8.4 [facility] Comment on above: Order Comment: 546.1 Result Comment: LABS WERE DONE 12/09/24 DOES NOT NEED REPEATED PER NURSE Performed By: #### L 100.0500, L500.4050 #### [facility] [address] [place], [address] Comprehensive Metabolic Profil Normal 133-145 [facility] Comment on above: Order Comment: 546.1 Result Comment: LABS WERE DONE 12/09/24 DOES NOT NEED REPEATED PER NURSE Performed By: #### L 100.0500, L500.4050 #### [facility] [address] [place], [address] Basic Metabolic Profile (BMP )on 12-09-2024 BUN/CRE 21.8 RATIO High 10-20 [facility] Comment on above: Order Comment: 546.1 Performed By: #### L 500.2500, L100.0500 #### [facility] [address] [place], [address] Calcium [Mass/Vol] 8.8 mg/dL Normal 7.6-11.0 [facility] Comment on above: Order Comment: 546.1 Performed By: #### L 500.2500, L100.0500 #### [facility] [address] [place], [address] Chloride [Moles/Vol] 101 mmol/L Normal 98-108 [facility] Comment on above: Order Comment: 546.1 Performed By: #### L 500.2500, L100.0500 #### [facility] [address] [place], [address] CO2 [Moles/Vol] 23.2 mmol/L Normal 21.0-32.0 [facility] Comment on above: Order Comment: 546.1 Performed By: #### L 500.2500, L100.0500 #### [facility] [address] [place], [address] Creatinine [Mass/Vol] 0.86 mg/dL Normal 0.70-1.20 [facility] Comment on above: Order Comment: 546.1 Performed By: #### L 500.2500, L100.0500 #### [facility] [address] [place], [address] GAP 11 Normal 5-15 [facility] Comment on above: Order Comment: 546.1 Performed By: #### L 500.2500, L100.0500 #### [facility] [address] [place], [address] GFR/1.73 sq M.predicted among non-blacks MDRD (S/P/Bld) [Vol rate/Area] 65 mL/min/{1.73_m2} Normal >60 [facility] Comment on above: Order Comment: 546.1 Result Comment: mL/m in/1.73m2 CKD-EPI Creatinine Equation (2020) Performed By: #### L 500.2500, L100.0500 #### [facility] [address] [place], [address] Glucose [Mass/Vol] 78 mg/dL Normal 70-99 [facility] Comment on above: Order Comment: 546.1 Performed By: #### L 500.2500, L100.0500 #### [facility] [address] [place], [address] Potassium [Moles/Vol] 4.3 mmol/L Normal 3.3-5.1 [facility] Comment on above: Order Comment: 546.1 Performed By: #### L 500.2500, L100.0500 #### [facility] [address] [place], [address] Sodium [Moles/Vol] 135 mmol/L Normal 133-145 [facility] Comment on above: Order Comment: 546.1 Performed By: #### L 500.2500, L100.0500 #### [facility] [address] [place], [address] Urea nitrogen [Mass/Vol] 19 mg/dL Normal 4-19 [facility] Comment on above: Order Comment: 546.1 Performed By: #### L 500.2500, L100.0500 #### [facility] [address] [place], [address] CBC-Complete Blood Cnt No Di ffon 12-09-2024 Erythrocyte distribution width (RBC) [Ratio] 16.4 % High 11.6-14.6 [facility] Comment on above: Order Comment: 546.1 Performed By: #### L 500.2500, L100.0500 #### [facility] [address] [place], [address] Hematocrit (Bld) [Volume fraction] 37.6 % Normal 37-47 [facility] Comment on above: Order Comment: 546.1 Performed By: #### L 500.2500, L100.0500 #### [facility] [address] [place], [address] Hemoglobin (Bld) [Mass/Vol] 12.5 g/dL Normal 12.0-15.0 [facility] Comment on above: Order Comment: 546.1 Performed By: #### L 500.2500, L100.0500 #### [facility] [address] [place], [address] MCH (RBC) [Entitic mass] 29.8 pg Normal 27.0-32.0 [facility] Comment on above: Order Comment: 546.1 Performed By: #### L 500.2500, L100.0500 #### [facility] [address] [place], [address] MCHC (RBC) [Mass/Vol] 33.2 g/dL Normal 32-36 [facility] Comment on above: Order Comment: 546.1 Performed By: #### L 500.2500, L100.0500 #### [facility] [address] [place], [address] MCV (RBC) [Entitic vol] 89.5 fL Normal 81-99 [facility] Comment on above: Order Comment: 546.1 Performed By: #### L 500.2500, L100.0500 #### [facility] [address] [place], [address] Platelet mean volume (Bld) [Entitic vol] 10.5 fL Normal 6.2-12.0 [facility] Comment on above: Order Comment: 546.1 Performed By: #### L 500.2500, L100.0500 #### [facility] [address] [place], [address] Platelets (Bld) [#/Vol] 345 10*3/uL Normal 150-450 [facility] Comment on above: Order Comment: 546.1 Performed By: #### L 500.2500, L100.0500 #### [facility] [address] [place], [address] RBC (Bld) [#/Vol] 4.20 10*6/uL Normal 4.2-5.4 [facility] Comment on above: Order Comment: 546.1 Performed By: #### L 500.2500, L100.0500 #### [facility] [address] [place], [address] RDW SD 53.6 fl High 35.1-43.9 [facility] Comment on above: Order Comment: 546.1 Performed By: #### L 500.2500, L100.0500 #### [facility] [address] [place], [address] WBC (Bld) [#/Vol] 9.3 10*3/uL Normal 4.4-11.0 [facility] Comment on above: Order Comment: 546.1 Performed By: #### L 500.2500, L100.0500 #### [facility] [address] [place], [address] CBC-Complete Blood Cnt No Di ffon 09-18-2024 Erythrocyte distribution width (RBC) [Ratio] 15.3 % High 11.6-14.6 [facility] Comment on above: Order Comment: 546 Performed By: #### L 500.4100, L506.1001, L100.0500, L501.9985, L500.4050 #### [facility] [address] [place], [address] Hematocrit (Bld) [Volume fraction] 42.2 % Normal 37-47 [facility] Comment on above: Order Comment: 546 Performed By: #### L 500.4100, L506.1001, L100.0500, L501.9985, L500.4050 #### [facility] [address] [place], [address] Hemoglobin (Bld) [Mass/Vol] 13.9 g/dL Normal 12.0-15.0 [facility] Comment on above: Order Comment: 546 Performed By: #### L 500.4100, L506.1001, L100.0500, L501.9985, L500.4050 #### [facility] [address] [place], [address] MCH (RBC) [Entitic mass] 30.0 pg Normal 27.0-32.0 [facility] Comment on above: Order Comment: 546 Performed By: #### L 500.4100, L506.1001, L100.0500, L501.9985, L500.4050 #### [facility] [address] [place], [address] MCHC (RBC) [Mass/Vol] 32.9 g/dL Normal 32-36 [facility] Comment on above: Order Comment: 546 Performed By: #### L 500.4100, L506.1001, L100.0500, L501.9985, L500.4050 #### [facility] [address] [place], [address] MCV (RBC) [Entitic vol] 90.9 fL Normal 81-99 [facility] Comment on above: Order Comment: 546 Performed By: #### L 500.4100, L506.1001, L100.0500, L501.9985, L500.4050 #### [facility] [address] [place], [address] Platelet mean volume (Bld) [Entitic vol] 10.8 fL Normal 6.2-12.0 [facility] Comment on above: Order Comment: 546 Performed By: #### L 500.4100, L506.1001, L100.0500, L501.9985, L500.4050 #### [facility] [address] [place], [address] Platelets (Bld) [#/Vol] 337 10*3/uL Normal 150-450 [facility] Comment on above: Order Comment: 546 Performed By: #### L 500.4100, L506.1001, L100.0500, L501.9985, L500.4050 #### [facility] [address] [place], [address] RBC (Bld) [#/Vol] 4.64 10*6/uL Normal 4.2-5.4 [facility] Comment on above: Order Comment: 546 Performed By: #### L 500.4100, L506.1001, L100.0500, L501.9985, L500.4050 #### [facility] [address] [place], [address] RDW SD 50.5 fl High 35.1-43.9 [facility] Comment on above: Order Comment: 546 Performed By: #### L 500.4100, L506.1001, L100.0500, L501.9985, L500.4050 #### [facility] [address] [place], [address] WBC (Bld) [#/Vol] 9.6 10*3/uL Normal 4.4-11.0 [facility] Comment on above: Order Comment: 546 Performed By: #### L 500.4100, L506.1001, L100.0500, L501.9985, L500.4050 #### [facility] [address] [place], [address] Comprehensive Metabolic Prof [place] 09-18-2024 Albumin [Mass/Vol] 3.4 g/dL Normal 3.4-4.8 [facility] Comment on above: Order Comment: 546 Performed By: #### L 500.4100, L506.1001, L100.0500, L501.9985, L500.4050 #### [facility] [address] [place], [address] Albumin/Globulin [Mass ratio] 1.4 {ratio} Normal 0.9-2.4 [facility] Comment on above: Order Comment: 546 Performed By: #### L 500.4100, L506.1001, L100.0500, L501.9985, L500.4050 #### [facility] [address] [place], [address] ALK PHOS 43 U/L Normal 35-104 [facility] Comment on above: Order Comment: 546 Performed By: #### L 500.4100, L506.1001, L100.0500, L501.9985, L500.4050 #### [facility] [address] [place], [address] ALT [Catalytic activity/Vol] 9 U/L Normal <=34 [facility] Comment on above: Order Comment: 546 Performed By: #### L 500.4100, L506.1001, L100.0500, L501.9985, L500.4050 #### [facility] [address] [place], [address] AST [Catalytic activity/Vol] 20 U/L Normal <=31 [facility] Comment on above: Order Comment: 546 Performed By: #### L 500.4100, L506.1001, L100.0500, L501.9985, L500.4050 #### [facility] [address] [place], [address] Bilirubin [Mass/Vol] 0.37 mg/dL Normal 0.00-1.30 [facility] Comment on above: Order Comment: 546 Performed By: #### L 500.4100, L506.1001, L100.0500, L501.9985, L500.4050 #### [facility] [address] [place], [address] BUN/CRE 27.9 RATIO High 10-20 [facility] Comment on above: Order Comment: 546 Performed By: #### L 500.4100, L506.1001, L100.0500, L501.9985, L500.4050 #### [facility] [address] [place], [address] Calcium [Mass/Vol] 8.8 mg/dL Normal 7.6-11.0 [facility] Comment on above: Order Comment: 546 Performed By: #### L 500.4100, L506.1001, L100.0500, L501.9985, L500.4050 #### [facility] [address] [place], [address] Chloride [Moles/Vol] 108 mmol/L Normal 98-108 [facility] Comment on above: Order Comment: 546 Performed By: #### L 500.4100, L506.1001, L100.0500, L501.9985, L500.4050 #### [facility] [address] [place], [address] CO2 [Moles/Vol] 23.5 mmol/L Normal 21.0-32.0 [facility] Comment on above: Order Comment: 546 Performed By: #### L 500.4100, L506.1001, L100.0500, L501.9985, L500.4050 #### [facility] [address] [place], [address] Creatinine [Mass/Vol] 0.82 mg/dL Normal 0.70-1.20 [facility] Comment on above: Order Comment: 546 Performed By: #### L 500.4100, L506.1001, L100.0500, L501.9985, L500.4050 #### [facility] [address] [place], [address] GAP 10 Normal 5-15 [facility] Comment on above: Order Comment: 546 Performed By: #### L 500.4100, L506.1001, L100.0500, L501.9985, L500.4050 #### [facility] [address] [place], [address] GFR/1.73 sq M.predicted among non-blacks MDRD (S/P/Bld) [Vol rate/Area] 69 mL/min/{1.73_m2} Normal >60 [facility] Comment on above: Order Comment: 546 Result Comment: mL/m in/1.73m2 CKD-EPI Creatinine Equation (2020) Performed By: #### L 500.4100, L506.1001, L100.0500, L501.9985, L500.4050 #### [facility] [address] [place], [address] Globulin (S) [Mass/Vol] 2.5 g/dL Normal 2.2-4.2 [facility] Comment on above: Order Comment: 546 Performed By: #### L 500.4100, L506.1001, L100.0500, L501.9985, L500.4050 #### [facility] [address] [place], [address] Glucose [Mass/Vol] 88 mg/dL Normal 70-99 [facility] Comment on above: Order Comment: 546 Performed By: #### L 500.4100, L506.1001, L100.0500, L501.9985, L500.4050 #### [facility] [address] [place], [address] Potassium [Moles/Vol] 4.1 mmol/L Normal 3.3-5.1 [facility] Comment on above: Order Comment: 546 Performed By: #### L 500.4100, L506.1001, L100.0500, L501.9985, L500.4050 #### [facility] [address] [place], [address] Sodium [Moles/Vol] 141 mmol/L Normal 133-145 [facility] Comment on above: Order Comment: 546 Performed By: #### L 500.4100, L506.1001, L100.0500, L501.9985, L500.4050 #### [facility] [address] [place], [address] T PROT 5.8 g/dL Low 5.9-8.4 [facility] Comment on above: Order Comment: 546 Performed By: #### L 500.4100, L506.1001, L100.0500, L501.9985, L500.4050 #### [facility] [address] [place], [address] Urea nitrogen [Mass/Vol] 23 mg/dL High 4-19 [facility] Comment on above: Order Comment: 546 Performed By: #### L 500.4100, L506.1001, L100.0500, L501.9985, L500.4050 #### [facility] [address] [place], [address] Hemoglobin A1con 09-18-2024 HbA1c (Bld) [Mass fraction] 5.5 % Normal <=5.6 [facility] Comment on above: Order Comment: 546 Result Comment: Norm al < 5.7 % Prediabetic 5.7 - 6.4 % Diabetic >or= 6.5 % Please note range changes. Performed By: #### L 500.4100, L506.1001, L100.0500, L501.9985, L500.4050 #### [facility] [address] [place], [address] Lipid Profileon 09-18-2024 CHOL:HDL 2.43 Normal [facility] Comment on above: Order Comment: 546 Performed By: #### L 500.4100, L506.1001, L100.0500, L501.9985, L500.4050 #### [facility] [address] [place], [address] Cholesterol [Mass/Vol] 136 mg/dL Normal <=200 [facility] Comment on above: Order Comment: 546 Result Comment: Chol esterol level, Desirable <200 mg/dL Borderline high cholesterol 200-239 mg/dL High cholesterol >=240 mg/dL Recommendations of the NCEP Adult Treatment Panel for the following risk-cutoff thresholds for the [place] population. Performed By: #### L 500.4100, L506.1001, L100.0500, L501.9985, L500.4050 #### [facility] [address] [place], [address] Cholesterol in HDL [Mass/Vol] 56 mg/dL Normal [facility] Comment on above: Order Comment: 546 Result Comment: Lyric onal Cholesterol Education Program (NCEP) guidelines: <40 mg/dL: Low HDL-cholesterol (major risk factor for CHD) >= 60 mg/dL: High HDL-cholesterol (negative risk factor for CHD) HDL-cholesterol is affected by a number of factors, e.g. smoking, exercise, hormones, sex and age. Performed By: #### L 500.4100, L506.1001, L100.0500, L501.9985, L500.4050 #### [facility] [address] [place], [address] Cholesterol in LDL [Mass/Vol] 67 mg/dL Normal [facility] Comment on above: Order Comment: 546 Result Comment: Bord ipozdf=357-871 mg/dL Higher Nkbe=014 mg/dL or greater Performed By: #### L 500.4100, L506.1001, L100.0500, L501.9985, L500.4050 #### [facility] [address] [place], [address] Cholesterol in VLDL [Mass/Vol] 14 mg/dL Normal 5-40 [facility] Comment on above: Order Comment: 546 Performed By: #### L 500.4100, L506.1001, L100.0500, L501.9985, L500.4050 #### [facility] [address] [place], [address] Triglyceride [Mass/Vol] 68 mg/dL Normal [facility] Comment on above: Order Comment: 546 Result Comment: The drugs N-Acetylcysteine and Metamizole may falsely depress this assay. Normal range: <150 mg/dL Borderline High: 150-199 mg/dL High: 200-499 mg/dL Very High: >500 mg/dL Performed By: #### L 500.4100, L506.1001, L100.0500, L501.9985, L500.4050 #### [facility] [address] [place], [address] Vitamin D,25 Hydroxyon 09-18 Vitamin D 25-OH 52.7 ng/mL Normal 30-100 [facility] Comment on above: Order Comment: 546 Result Comment: Alicia min D Status Deficiency: <20 ng/mL (50nmol/L) Insufficiency: 20-30 ng/mL (50-75 nmol/L) Sufficiency: 30-100 ng/mL (75-250 nmol/L) Toxicity: >100 ng/mL (>250 nmol/L) Performed By: #### L 500.4100, L506.1001, L100.0500, L501.9985, L500.4050 #### [facility] [address] [place], [address] US DOPPLER CAROTIDon 020 US DOPPLER CAROTID Patient Info Name: NA GOOD Age: 84 years : 1935 Gender: Female Exam Date: 02/03/2020 2:02 PM Site Location: [facility] Patient Status: Outpatient Plodder Operator: Tatyana Olmos, VILMA, RDMS (AB), RVT Referring Physician: RUBIN CHIRINOS ; Indications R09.89 - Other specified symptoms and signs involving the circulatory and respiratory systems Procedure Description 40265 Duplex examination using B-mode, color and spectral [...] Morris DO on 02/03/2020 03:27 PM Normal [facility] US DOPPLER CAROTID Patient Info Name: NA GOOD Age: 84 years : 1935 Gender: Female Exam Date: 02/03/2020 2:02 PM Site Location: [facility] Patient Status: Outpatient Plodder Operator: Tatyana Olmos, VILMA, RDMS (AB), RVT Referring Physician: RUBIN CHIRINOS ; Indications R09.89 - Other specified symptoms and signs involving the circulatory and respiratory systems Procedure Description [id number] Duplex examination using B-mode, color and spectral [...] on SunFeb 03, 2020 3:27:40 PM EDT [facility] Patient Info Name: NA GOOD Age: 84 years : 1935 Gender: Female Exam Date: 02/03/2020 2:02 PM Site Location: [facility] Patient Status: Outpatient Plodder Operator: Tatyana Olmos, VILMA, RDMS (AB), RVT Referring Physician: RUBIN CHIRINOS ; Indications R09.89 - Other specified symptoms and signs involving the circulatory and respiratory systems Procedure Description [id number] Duplex examination using B-mode, color and spectral [...] HAM Morris DO on 02/03/2020 03:27 PM [facility] Echopacs - 02/03/2020 3:27 PM EDT Patient Info Name: NA GOOD Age: 84 years : 1935 Gender: Female Exam Date: 02/03/2020 2:02 PM Site Location: [facility] Patient Status: Outpatient Plodder Operator: Tatyana Olmos, VILMA, RDMS (AB), RVT Referring Physician: RUBIN CHIRINOS ; Indications R09.89 - Other specified symptoms and signs involving the circulatory and respiratory systems Procedure Description 11975 Duplex examination using B-mode, color and spectral [...] hypertension. . Report Signatures Finalized by HAM Morirs DO on 02/03/2020 03:27 PM [facility] ECG 12-LEADon 01-13-2019 Atrial Rate [facility] P [place] [facility] P-R Interval [facility] Q-T Interval [facility] Q-T Interval (corrected) [facility] QRS Duration [facility] QTC Calculation (Bezet) [facility] R [place] [facility] T [place] [facility] Ventricular Rate [facility] ECG 12 Leadon 01-15-2018 Atrial Rate Invalid Interpretation Code [facility] P [place] Invalid Interpretation Code [facility] P-R Interval Invalid Interpretation Code [facility] Q-T Interval Invalid Interpretation Code [facility] Q-T Interval (corrected) Invalid Interpretation Code [facility] QRS Duration Invalid Interpretation Code [facility] QTC Calculation (Bezet) Invalid Interpretation Code [facility] R [place] Invalid Interpretation Code [facility] T [place] Invalid Interpretation Code [facility] Ventricular Rate Invalid Interpretation Code [facility] CBC w/o Diffon 12-19-2017 Erythrocyte distribution width Auto Ratio (RBC) 14.2 % Normal 10.0-14.4 [facility] Comment on above: Performed By: #### L IPID, CMET, TSH, CBCWOD ####Unless otherwise noted, all testing performed by [address] [id number]: [id number] Director: Alverto Fitzgerald M.D. Hematocrit Auto Volume Fraction (Bld) 44.2 % Normal 34.4-44.8 [facility] Comment on above: Performed By: #### L IPID, CMET, TSH, CBCWOD ####Unless otherwise noted, all testing performed by [address] [id number]: [id number] Director: Alverto Fitzgerald M.D. Hemoglobin mass conc (Bld) 14.6 g/dL Normal 11.6-15.4 [facility] Comment on above: Performed By: #### L IPID, CMET, TSH, CBCWOD ####Unless otherwise noted, all testing performed by [address] [phone]: [id number] Director: Alverto Fitzgerald M.D. MCH Auto Entitic mass (RBC) 29.4 pg Normal 27.9-33.9 [facility] Comment on above: Performed By: #### L IPID, CMET, TSH, CBCWOD ####Unless otherwise noted, all testing performed by [address] [id number]: [id number] Director: Alverto Fitzgerald M.D. MCHC Auto mass conc (RBC) 33.0 g/dL Low 33.1-35.1 [facility] Comment on above: Performed By: #### L IPID, CMET, TSH, CBCWOD ####Unless otherwise noted, all testing performed by [address] [id number]: [id number] Director: Alverto Fitzgerald M.D. MCV Auto Entitic volume (RBC) 89.1 fL Normal 82.6-98.9 [facility] Comment on above: Performed By: #### L IPID, CMET, TSH, CBCWOD ####Unless otherwise noted, all testing performed by [address] [phone]: [id number] Director: Alverto Fitzgerald M.D. Platelet mean volume Auto Entitic volume (Bld) 8.6 fL Normal 7.0-10.6 [facility] Comment on above: Performed By: #### L IPID, CMET, TSH, CBCWOD ####Unless otherwise noted, all testing performed by [address] [id number]: [id number] Director: Alverto Fitzgerald M.D. Platelets Auto #/vol (Bld) 349 K/mcL Normal 162-402 [facility] Comment on above: Performed By: #### L IPID, CMET, TSH, CBCWOD ####Unless otherwise noted, all testing performed by [address] [phone]: [id number] Director: Alverto Fitzgerald M.D. RBC Auto #/vol (Bld) 4.96 M/mcL Normal 3.7-5.0 [facility] Comment on above: Performed By: #### L IPID, CMET, TSH, CBCWOD ####Unless otherwise noted, all testing performed by [address] [id number]: [id number] Director: Alverto Fitzgerald M.D. WBC Auto #/vol (Bld) 9.0 K/mcL Normal 3.4-10.6 [facility] Comment on above: Performed By: #### L IPID, CMET, TSH, CBCWOD ####Unless otherwise noted, all testing performed by [address] [id number]: [id number] Director: Alverto Fitzegrald M.D. Comprehensive Metabolic Pane [facility] 12-19-2017 Albumin mass conc 3.7 g/dL Normal 3.2-5.[address] [facility] Comment on above: Performed By: #### L IPID, CMET, TSH, CBCWOD ####Unless otherwise noted, all testing performed by [address] [phone]: [id number] Director: Alverto Fitzgerald M.D. ALP enzyme act/vol 54 U/L Normal 40-150 [facility] Comment on above: Performed By: #### L IPID, CMET, TSH, CBCWOD ####Unless otherwise noted, all testing performed by [address] [phone]: [id number] Director: Alverto Fitzgerald M.D. ALT enzyme act/vol 15 U/L Normal 14-65 [facility] Comment on above: Result Comment: This test result might be falsely depressed or falsely elevated onsamples drawn from patients taking Sulfasalazine and Sulfapyridine.Venipuncture should occur prior to taking either of these drugs. Performed By: #### L IPID, CMET, TSH, CBCWOD ####Unless otherwise noted, all testing performed by [address] [phone]: [id number] Director: Alverto Fitzgerald M.D. AST enzyme act/vol 15 U/L Normal 0-45 [facility] Comment on above: Result Comment: This test result might be falsely depressed or falsely elevated onsamples drawn from patients taking Sulfasalazine and Sulfapyridine.Venipuncture should occur prior to taking either of these drugs. Performed By: #### L IPID, CMET, TSH, CBCWOD ####Unless otherwise noted, all testing performed by [address] [phone]: [id number] Director: Alverto Fitzgerald M.D. Bilirubin mass conc 0.5 mg/dL Normal 0.3-1.2 [facility] Comment on above: Performed By: #### L IPID, CMET, TSH, CBCWOD ####Unless otherwise noted, all testing performed by [address] [place], [place] [phone]: [id number] Director: Alverto Fitzgerald M.D. Calcium mass conc 8.9 mg/dL Normal 8.4-10.[address] [facility] Comment on above: Performed By: #### L IPID, CMET, TSH, CBCWOD ####Unless otherwise noted, all testing performed by [address] [phone]: [id number] Director: Alverto Fitzgerald M.D. Chloride molar conc 106 mmol/L Normal 98-108 [facility] Comment on above: Performed By: #### L IPID, CMET, TSH, CBCWOD ####Unless otherwise noted, all testing performed by [address] [phone]: [id number] Director: Alverto Fitzgerald M.D. CO2 molar conc 29 mmol/L Normal 21-32 [facility] Comment on above: Performed By: #### L IPID, CMET, TSH, CBCWOD ####Unless otherwise noted, all testing performed by [address] [phone]: [id number] Director: Alverto Fitzgerald M.D. Creatinine mass conc 0.76 mg/dL Normal 0.60-1.20 [facility] Comment on above: Performed By: #### L IPID, CMET, TSH, CBCWOD ####Unless otherwise noted, all testing performed by [address] [phone]: [id number] Director: Alverto Fitzgerald M.D. GFR/1.73 sq M predicted among blacks MDRD vol rate/area (S/P/Bld) mL/min/{1.73_m2} Normal [facility] Comment on above: Result Comment: Afri can Barbadian GFR Calc Performed By: #### L IPID, CMET, TSH, CBCWOD ####Unless otherwise noted, all testing performed by [address] [phone]: [id number] Director: Alverto Fitzgerald M.D. GFR/1.73 sq M predicted among non-blacks MDRD vol rate/area (S/P/Bld) mL/min/{1.73_m2} Normal [facility] Comment on above: Result Comment: Non- GFR [...] ####Unless otherwise noted, all testing performed by [address] [id number]: [id number] Director: Alverto Fitzgerald M.D. Glucose mass conc 84 mg/dL Normal 70-[address] [facility] Comment on above: Result Comment: This test result might be falsely depressed or falsely elevated onsamples drawn from patients taking Sulfasalazine and Sulfapyridine.Venipuncture should occur prior to taking either of these drugs. Performed By: #### L IPID, CMET, TSH, CBCWOD ####Unless otherwise noted, all testing performed by [address] [phone]: [id number] Director: Alverto Fitzgerald M.D. Potassium molar conc 4.1 mmol/L Normal 3.5-5.1 [facility] Comment on above: Performed By: #### L IPID, CMET, TSH, CBCWOD ####Unless otherwise noted, all testing performed by [place] [phone]: [id number] Director: Alverto Fitzgerald M.D. Protein mass conc 7.2 g/dL Normal 6.0-8.[address] [facility] Comment on above: Performed By: #### L IPID, CMET, TSH, CBCWOD ####Unless otherwise noted, all testing performed by [address]IA: [id number] Director: Alverto Fitzgerald M.D. Sodium molar conc 142 mmol/L Normal 135-[address] [facility] Comment on above: Performed By: #### L IPID, CMET, TSH, CBCWOD ####Unless otherwise noted, all testing performed by [place] [phone]: [id number] Director: Alverto Fitzgerald M.D. Urea nitrogen mass conc 19 mg/dL Normal 8-25 [facility] Comment on above: Performed By: #### L IPID, CMET, TSH, CBCWOD ####Unless otherwise noted, all testing performed by [place] [id number]: [id number] Director: Alverto Fitzgerald M.D. Lipid Panelon 12-19-2017 Cholesterol in HDL mass conc 68 mg/dL High 40-59 [facility] Comment on above: Performed By: #### L IPID, CMET, TSH, CBCWOD ####Unless otherwise noted, all testing performed by [address] [phone]: [id number] Director: Alverto Fitzgerald M.D. Cholesterol in LDL mass conc 150 mg/dL Normal 10-150 [facility] Comment on above: Performed By: #### L IPID, CMET, TSH, CBCWOD ####Unless otherwise noted, all testing performed by [address] [phone]: [id number] Director: Alverto Fitzgerald M.D. Cholesterol in VLDL mass conc 24 mg/dL Normal 5-40 [facility] Comment on above: Performed By: #### L IPID, CMET, TSH, CBCWOD ####Unless otherwise noted, all testing performed by [address] [phone]: [id number] Director: Alverto Fitzgerald M.D. Cholesterol mass conc 243 mg/dL High 100-199 [facility] Comment on above: Performed By: #### L IPID, CMET, TSH, CBCWOD ####Unless otherwise noted, all testing performed by [address] [phone]: [id number] Director: Alverto Fitzgerald M.D. Cholesterol.total/Cho lesterol in HDL mass ratio 3.6 {ratio} Normal 3.2-5.0 [facility] Comment on above: Result Comment: Fema le Coronary Heart Disease Risk Factor (CHDRF):Average risk= 4.41/2 Average risk= 3.32 times Average risk= 7.1 Performed By: #### L IPID, CMET, TSH, CBCWOD ####Unless otherwise noted, all testing performed by [address] [phone]: [id number] Director: Alverto Fitzgerald M.D. Triglyceride mass conc 121 mg/dL High 25-120 [facility] Comment on above: Performed By: #### L IPID, CMET, TSH, CBCWOD ####Unless otherwise noted, all testing performed by [address] [phone]: [id number] Director: Alverto Fitzgerald M.D. Microalbumin, Ur Random Pane epifanio 12-19-2017 Creatinine, Urine Random 124.00 mg/dL Normal [facility] Comment on above: Result Comment: No e stablished reference range. Performed By: #### M IALBURR ####Unless otherwise noted, all testing performed by [address] [phone]: [id number] Director: Alverto Fitzgerald M.D. MIALB/Creatinine Ratio 9 Normal 0.0-25.0 [facility] Comment on above: Performed By: #### M IALBURR ####Unless otherwise noted, all testing performed by [address] [phone]: [id number] Director: Alverto Fitzgerald M.D. Microalbumin, Urine Random 1.1 mg/dL Normal 0.0-1.8 [facility] Comment on above: Performed By: #### M IALBURR ####Unless otherwise noted, all testing performed by [address] [phone]: [id number] Director: Alverto Fitzgerald M.D. TSHon 12-19-2017 T4 free mass conc 1.1 ng/dL Normal 0.7-1.[address] [facility] Comment on above: Result Comment: Samp les from patients routinely receiving high dose biotin therapy(100-300 mg/day) may show falsely increased results. Please correlateclinically. Performed By: #### L IPID, CMET, TSH, CBCWOD ####Unless otherwise noted, all testing performed by [address] [phone]: [id number] Director: Alverto Fitzgerald M.D. Thyrotropin Qn 0.22 uIU/mL Low 0.320-5.000 [facility] Comment on above: Result Comment: Samp les from patients routinely receiving high dose biotin therapy(100-300 mg/day) may show falsely decreased results. Please correlateclinically. Performed By: #### L IPID, CMET, TSH, CBCWOD ####Unless otherwise noted, all testing performed by [address] [phone]: [id number] Director: Alverto Fitzgerald M.D. CBC and Differentialon 12-19 Basophils 1.1 % Invalid Interpretation Code [facility] Basophils 0.1 K/mcL Invalid Interpretation Code 0 - 0.2 [facility] Eosinophils 0.3 K/mcL Invalid Interpretation Code 0 - 0.5 [facility] Erythrocytes (RBC) 4.79 M/mcL Invalid Interpretation Code 3.7 - 5.0 [facility] Hematocrit (HCT) 42.7 % Invalid Interpretation Code 34.4 - 44.8 % [facility] Hemoglobin (HGB) 14.1 g/dL Invalid Interpretation Code 11.6 - 15.4 g/dL [facility] Lymphocytes 2.4 K/mcL Invalid Interpretation Code 1.0 - 3.7 [facility] MCH 29.5 pg Invalid Interpretation Code 27.9 - 33.[address] [facility] MCHC 33.1 g/dL Invalid Interpretation Code 33.1 - 35.1 g/dL [facility] MCV 89.2 fL Invalid Interpretation Code 82.6 - 98.9 [facility] Monocytes 0.6 K/mcL Invalid Interpretation Code 0.1 - 0.6 [facility] Neutrophils 4.4 K/mcL Invalid Interpretation Code 1.2 - 6.9 [facility] Platelet mean volume (PMV) 8.7 fL Invalid Interpretation Code 7.0 - 10.6 [facility] Platelets 278 K/mcL Invalid Interpretation Code 162 - 402 [facility] RDW-CA 14.3 % Invalid Interpretation Code 10 - 14.4 % [facility] Segmented Neut 56.5 % Invalid Interpretation Code [facility] T8 suppressor/100 cells 4.2 10*3/uL Invalid Interpretation Code [facility] T8 suppressor/100 cells 30.3 10*3/uL Invalid Interpretation Code [facility] T8 suppressor/100 cells 7.9 10*3/uL Invalid Interpretation Code [facility] WBC (Leukocytes) 7.8 K/mcL Invalid Interpretation Code 3.4 - 10.6 [facility] Comprehensive Metabolic Pane epifanio 12-19-2016 Alanine aminotransferase (ALT) 20 U/L Invalid Interpretation Code 14 - 65 U/L [facility] Albumin 3.6 g/dL Invalid Interpretation Code 3.2 - 5.2 g/dL [facility] Alkaline phosphatase (ALP) 39 U/L Low 40 - 150 U/L [facility] Aspartate aminotransferase (AST) 14 U/L Invalid Interpretation Code 0 - 45 U/L [facility] Calcium 9.4 mg/dL Invalid Interpretation Code 8.4 - 10.2 mg/dL [facility] Chloride 107 mmol/L Invalid Interpretation Code 98 - 108 mmol/L [facility] CO2 30 mmol/L Invalid Interpretation Code 21 - 32 mmol/L [facility] Creatinine 0.72 mg/dL Invalid Interpretation Code 0.6 - 1.2 mg/dL [facility] eGFR (black) mL/min/{1.73_m2} Invalid Interpretation Code ml/min/1.73s q.m [facility] eGFR (non-black) mL/min/{1.73_m2} Invalid Interpretation Code ml/min/1.73s q.m [facility] Glucose 86 mg/dL Invalid Interpretation Code 70 - 99 mg/dL [facility] Potassium 4.3 mmol/L Invalid Interpretation Code 3.5 - 5.1 mmol/L [facility] Protein 6.8 g/dL Invalid Interpretation Code 6 - 8 g/dL [facility] Sodium 145 mmol/L Invalid Interpretation Code 135 - 145 mmol/L [facility] Urea nitrogen 17 mg/dL Invalid Interpretation Code 8 - 25 mg/dL [facility] Urine, bilirubin presence 0.6 mg/dL Invalid Interpretation Code 0.3 - 1.2 mg/dL [facility] Lipid Panelon 12-19-2016 Cholesterol 242 mg/dL High 100 - 199 mg/dL [facility] Cholesterol to HDL Ratio 3.2 {ratio} Invalid Interpretation Code 3.2 - 5.0 [facility] HDL Cholesterol 76 mg/dL High 40 - 59 mg/dL [facility] Interpretation and review of laboratory results Abnormal Invalid Interpretation Code [facility] LDL Cholesterol 150 mg/dL Invalid Interpretation Code 10 - 150 mg/dL [facility] Triglyceride 85 mg/dL Invalid Interpretation Code 25 - 120 mg/dL [facility] VLDL 17 mg/dL Invalid Interpretation Code 5 - 40 mg/dL [facility] Vital Signs Date Time Vital Sign Value Performing Clinician Facility 07-28-2020 13:54-0400 BMI (Body Mass Index) 22.43 kg/m2 David Ludwig [facility] 07-28-2020 13:54-0400 Body Temperature 98.71 [degF] David Ludwig [facility] 07-28-2020 13:54-0400 Body weight 57.42 kg David Ludwig [facility] 07-28-2020 13:54-0400 BP Diastolic 82 mm[Hg] David Ludwig [facility] 07-28-2020 13:54-0400 BP Systolic 139 mm[Hg] David Ludwig [facility] 07-28-2020 13:54-0400 Height 160 cm David Ludwig [facility] 07-28-2020 13:54-0400 Pulse (Heart Rate) 84 /min David Ludwig [facility] 07-28-2020 13:54-0400 Pulse Oximetry 97 % David Ludwig [facility] 01-15-2020 14:24-0400 BMI (Body Mass Index) 22.5 kg/m2 Rubin Chirinos [facility] 01-15-2020 14:24-0400 Body weight 57.61 kg Rubin Chirinos [facility] 01-15-2020 14:24-0400 BP Diastolic 78 mm[Hg] Rubin Chirinos [facility] 01-15-2020 14:24-0400 BP Systolic 136 mm[Hg] Rubin Chirinos [facility] 01-15-2020 14:24-0400 Height 160 cm Rubin Chirinos [facility] 01-15-2020 14:24-0400 Pulse (Heart Rate) 64 /min Rubin Chirinos [facility] 01-15-2020 14:24-0400 Pulse Oximetry 97 % Rubin Chirinos [facility] 12-08-2019 11:20-0400 BMI (Body Mass Index) 22.5 kg/m2 [place] Ludwig [facility] 12-08-2019 11:20-0400 Body Temperature 97.81 [degF] David Ludwig [facility] 12-08-2019 11:20-0400 Body weight 57.61 kg David Ludwig [facility] 12-08-2019 11:20-0400 BP Diastolic 70 mm[Hg] David Ludwig [facility] 12-08-2019 11:20-0400 BP Systolic 133 mm[Hg] David Ludwig [facility] 12-08-2019 11:20-0400 Height 160 cm David Ludwig [facility] 12-08-2019 11:20-0400 Pulse (Heart Rate) 98 /min David Ludwig [facility] 06-16-2019 09:58-0500 BP Diastolic 74 mm[Hg] David Ludwig [facility] 06-16-2019 09:58-0500 BP Systolic 130 mm[Hg] David Ludwig [facility] 06-16-2019 09:58-0500 Pulse (Heart Rate) 82 /min David Ludwig [facility] 06-16-2019 09:58-0500 Pulse Oximetry 97 % David Ludwig [facility] 06-16-2019 09:58-0500 Respiratory Rate 18 /min David Ludwig [facility] 06-16-2019 09:54-0500 BMI (Body Mass Index) 23.13 kg/m2 David Ludwig [facility] 06-16-2019 09:54-0500 Body Temperature 97.9 [degF] David Ludwig [facility] 06-16-2019 09:54-0500 Body weight 59.24 kg David Ludwig [facility] 06-16-2019 09:54-0500 Height 160 cm David Ludwig [facility] 01-13-2019 11:15-0400 BMI (Body Mass Index) 22.14 kg/m2 Rubin Chirinos [facility] 01-13-2019 11:15-0400 Body weight 56.7 kg Rubin Chirinos [facility] 01-13-2019 11:15-0400 BP Diastolic 71 mm[Hg] Rubin Chirinos [facility] 01-13-2019 11:15-0400 BP Systolic 140 mm[Hg] Rubin Chirinos [facility] 01-13-2019 11:15-0400 Height 160 cm Rubinyara Chirinos [facility] 01-13-2019 11:15-0400 Pulse (Heart Rate) 80 /min Rubinyara Chirinos [facility] 01-13-2019 11:15-0400 Pulse Oximetry 99 % Rubin Chirinos [facility] 12-04-2018 09:08-0400 BMI (Body Mass Index) 22.43 kg/m2 Ceasar Arce [facility] 12-04-2018 09:08-0400 Body weight 57.42 kg Ceasar Arce [facility] 12-04-2018 09:08-0400 BP Diastolic 80 mm[Hg] Ceasar Dmitryhodaniellao [facility] 12-04-2018 09:08-0400 BP Systolic 167 mm[Hg] Ceasar [place] [facility] 12-04-2018 09:08-0400 Height 160 cm Ceasar Arce [facility] 12-04-2018 09:08-0400 Pulse (Heart Rate) 74 /min Ceasar [place]oo [facility] 12-04-2018 09:08-0400 Pulse Oximetry 98 % Ceasar [place] [facility] 06-26-2018 11:00-0500 BP Diastolic 77 mm[Hg] David Ludwig [facility] 06-26-2018 11:00-0500 BP Systolic 129 mm[Hg] David Ludwig [facility] 06-26-2018 11:00-0500 Pulse (Heart Rate) 66 /min David Ludwig [facility] 06-26-2018 11:00-0500 Pulse Oximetry 96 % David Ludwig [facility] 06-26-2018 10:56-0500 BMI (Body Mass Index) 22.18 kg/m2 David Ludwig [facility] 06-26-2018 10:56-0500 Body Temperature 98.2 [degF] David Ludwig [facility] 06-26-2018 10:56-0500 Height 160 cm David Ludwig [facility] 06-26-2018 10:56-0500 Weight 56.79 kg David Ludwig [facility] 01-15-2018 10:01-0400 BMI (Body Mass Index) 22.32 kg/m2 [facility] 01-15-2018 10:01-0400 BP Diastolic 80 mm[Hg] [facility] 01-15-2018 10:01-0400 BP Systolic 152 mm[Hg] [facility] 01-15-2018 10:01-0400 Height 160 cm [facility] 01-15-2018 10:01-0400 Pulse (Heart Rate) 81 /min [facility] 01-15-2018 10:01-0400 Pulse Oximetry 98 % [facility] 01-15-2018 10:01-0400 Weight 57.15 kg [facility] 12-27-2017 10:27-0400 BMI (Body Mass Index) 22.27 kg/m2 David Ludwig [facility] 12-27-2017 10:27-0400 Body Temperature 97.59 [degF] David Ludwig [facility] 12-27-2017 10:27-0400 BP Diastolic 75 mm[Hg] David Ludwig [facility] 12-27-2017 10:27-0400 BP Systolic 159 mm[Hg] David Ludwig [facility] 12-27-2017 10:27-0400 Height 160 cm David Ludwig [facility] 12-27-2017 10:27-0400 Pulse (Heart Rate) 82 /min David Ludwig [facility] 12-27-2017 10:27-0400 Pulse Oximetry 97 % David Ludwig [facility] 12-27-2017 10:27-0400 Respiratory Rate 12 /min David Ludwig [facility] 12-27-2017 10:27-0400 Weight 57.02 kg David Ludwig [facility] 06-26-2017 09:46-0500 BMI (Body Mass Index) 23.06 kg/m2 Alfredo [facility] 06-26-2017 09:46-0500 Body Temperature 98.29 [degF] [facility] 06-26-2017 09:46-0500 BP Diastolic 80 mm[Hg] [facility] 06-26-2017 09:46-0500 BP Systolic 140 mm[Hg] [facility] 06-26-2017 09:46-0500 Height 160 cm [facility] 06-26-2017 09:46-0500 Pulse (Heart Rate) 68 /min [facility] 06-26-2017 09:46-0500 Weight 59.06 kg [facility] 06-20-2017 14:38-0500 BMI (Body Mass Index) 23.03 kg/m2 Ceasar Arce [facility] 06-20-2017 14:38-0500 BP Diastolic 79 mm[Hg] Ceasar Alleno [facility] 06-20-2017 14:38-0500 BP Systolic 160 mm[Hg] Ceasar [place] [facility] 06-20-2017 14:38-0500 Height 160 cm Ceasradario [place] [facility] 06-20-2017 14:38-0500 Pulse (Heart Rate) 67 /min Ceasar [place] [facility] 06-20-2017 14:38-0500 Pulse Oximetry 99 % Ceasar [place] [facility] 06-20-2017 14:38-0500 Weight 58.97 kg Ceasar Arce [facility] 01-08-2017 10:21-0400 BMI (Body Mass Index) 22.32 kg/m2 Rubin Chirinos [facility] Work Phone: 01-08-2017 10:-0400 BP Diastolic 85 mm[Hg] Rubin Chirinos [facility] Work Phone: 01-08-2017 10:21-0400 BP Systolic 165 mm[Hg] Rubin Chirinos [facility] Work Phone: 01-08-2017 10:21-0400 Height 160 cm Rubin Chirinos [facility] Work Phone: 01-08-2017 10:21-0400 Pulse (Heart Rate) 64 /min Rubin Chirinos [facility] Work Phone: 01-08-2017 10:21-0400 Pulse Oximetry 97 % Rubin Chirinos [facility] Work Phone: 01-08-2017 10:21-0400 Weight 57.15 kg Rubin Chirinos [facility] Work Phone: 12-13-2016 14:18-0400 BMI (Body Mass Index) 22.44 kg/m2 Ceasar [place] [facility] Work Phone: 12-13-2016 14:18-0400 BP Diastolic 81 mm[Hg] Ceasar Dmitryhodko [facility] Work Phone: 12-13-2016 14:18-0400 BP Systolic 167 mm[Hg] Ceasar Dmitryhodko [facility] Work Phone: 12-13-2016 14:18-0400 Height 160 cm Ceasar Allendko [facility] Work Phone: 12-13-2016 14:18-0400 Pulse (Heart Rate) 69 /min Ceasar Dmitryhodko [facility] Work Phone: 12-13-2016 14:18-0400 Pulse Oximetry 99 % Ceasar Dmitryhodko [facility] Work Phone: 12-13-2016 14:18-0400 Weight 57.47 kg Ceasar Allendko [facility] Work Phone: Encounters Encounter Date Encounter Type Care Provider Facility Start: 12-24-2024 End: 12-27-2024 Evaluation and management of inpatient JOHNSON WATSON Facility:[facility] Start: 12-09-2024 ambulatory Alexey Sarah Patino ty:[facility] Start: 09-18-2024 ambulatory Alexey Sarah Patino ty:[facility] Start: 01-14-2021 [facility] Start: 12-07-2020 ambulatory DAVIDCLEVELAND LUDWIG [facility] Ambulatory Start: 09-21-2020 End: 09-21-2020 Refill Shante Hargrove LPN [facility] Comment on above: Benign essential hyp ertension; Chronic combined systolic and diastolic congestive heart failure (HCC); Insomnia, unspecified type Start: 07-28-2020 End: 07-28-2020 ambulatory DAVIDCLEVELAND PISANO Pin or PegTORIN [facility] Start: 07-28-2020 End: 07-28-2020 Office outpatient visit 25 minutes David Ludwig Work Phone: [facility] Comment on above: Benign essential hyp ertension (Primary Dx); Chronic combined systolic and diastolic congestive heart failure (HCC); Mixed hyperlipidemia Start: 05-07-2020 End: 05-07-2020 Orders Only Alley Kimball Work Phone: [facility] Start: 02-03-2020 End: 02-04-2020 Patient encounter procedure RUBIN TARAN [facility] Start: 02-03-2020 End: 02-03-2020 Subsequent hospital visit by physician Rubin Chirinos Work Phone: [facility] Comment on above: Bruit of left caroti d artery Start: 01-15-2020 End: 01-15-2020 Office outpatient visit 25 minutes Rubin Chirinos Work Phone: [facility] Comment on above: Bruit of left caroti d artery (Primary Dx); Chronic combined systolic and diastolic congestive heart failure (HCC); Mixed hyperlipidemia; Nonrheumatic aortic valve insufficiency; Benign essential hypertension; Left carotid bruit Start: 12-08-2019 End: 12-08-2019 Patient encounter procedure David Ludwig Work Phone: [facility] Comment on above: General medical exam (Primary Dx); At low risk for fall; Need for vaccination Start: 12-01-2019 End: 12-05-2019 Patient encounter procedure DAVID LUDWIG [facility] Start: 06-16-2019 End: 06-16-2019 Office outpatient visit 25 minutes David Ludwig Work Phone: [facility] Comment on above: Benign essential hyp ertension (Primary Dx); Chronic combined systolic and diastolic congestive heart failure (HCC); Mixed hyperlipidemia; Subclinical hypothyroidism; Insomnia, unspecified type Start: 01-13-2019 End: 01-13-2019 Office outpatient visit 25 minutes Rubin Chirinos Work Phone: [facility] Comment on above: Cardiomyopathy, unsp ecified type (HCC) (Primary Dx); Chronic combined systolic and diastolic congestive heart failure (HCC); Mixed hyperlipidemia; Benign essential hypertension Start: 12-04-2018 End: 12-04-2018 Clinical Support Kriss Marcelo [facility] Audiology Comment on above: Sensorineural hearin g loss, bilateral (Primary Dx); Sudden hearing loss, unspecified laterality Start: 12-04-2018 End: 12-04-2018 Office outpatient visit 25 minutes Ceasar Arce Work Phone: [facility] Comment on above: Hearing loss due to cerumen impaction, bilateral (Primary Dx); Sensorineural hearing loss, bilateral Start: 09-26-2018 End: 09-26-2018 Patient encounter procedure Eve Yap [facility] Comment on above: Medicare Wellness Vi sit (VM to schedule MWV) Start: 06-26-2018 End: 06-26-2018 Office outpatient visit 25 minutes David Ludwig Work Phone: [facility] Comment on above: Benign essential hyp ertension (Primary Dx); Mixed hyperlipidemia; Chronic combined systolic and diastolic congestive heart failure (HCC); Mood disorder (HCC) Start: 01-28-2018 Patient encounter procedure Alfreda Gallegos Facility:[place] Start: 01-28-2018 End: 01-28-2018 Patient encounter Alfreda Julian Gallegos Work Phone: [facility] Start: 01-15-2018 End: 01-15-2018 Office outpatient visit 25 minutes Alfreda Gallegos Work Phone: [facility] Comment on above: Congestive heart elsy lure, unspecified HF chronicity, unspecified heart failure type (HCC) (Primary Dx); Dyspnea on exertion; Nonrheumatic aortic valve insufficiency; Benign essential hypertension Start: 12-27-2017 End: 12-27-2017 Office outpatient visit 25 minutes David Ludwig Work Phone: [facility] Comment on above: Benign essential hyp ertension (Primary Dx); Mixed hyperlipidemia; Subclinical hypothyroidism; Chronic combined systolic and diastolic congestive heart failure (HCC); Need for influenza vaccination Start: 12-19-2017 Patient encounter procedure Alfredo Barreto Facility:[place] Start: 12-19-2017 End: 12-19-2017 Patient encounter Devonte Hassan [facility] Start: 11-07-2017 Refill Rubin Schafer Work Phone: [facility] Comment on above: Medication Refill Start: 06-26-2017 Patient encounter procedure Alfredo Barreto Facility:[place] Start: 06-26-2017 Office/outpatient vi sit, est, level 3 Alfredo Barreto Work Phone: [facility] Start: 06-25-2017 Patient encounter procedure Oscar Mendes Facility:[place] Start: 06-20-2017 Patient encounter Ceasar guillen Tanykhodko Work Phone: [facility] Start: 06-18-2017 Patient encounter procedure Oscar Mendes Facility:[place] Start: 01-12-2017 End: 01-12-2017 Ambulatory Rubin Chirinos Work Phone: [facility] Start: 01-08-2017 Office/outpatient vi sit, est, level 5 Rubin Chirinos Work Phone: [facility] Start: 12-19-2016 End: 12-19-2016 Ambulatory Oscar Mendes Work Phone: [facility] Start: 12-15-2016 End: 12-15-2016 Ambulatory Oscar Mendes Work Phone: [facility] Start: 12-13-2016 End: 12-13-2016 Office outpatient new 30 minutes Ceasar Arce Work Phone: [facility] Comment on above: Hearing loss due to cerumen impaction, bilateral (Primary Dx);Presbycusis, unspecified laterality Start: 11-24-2016 End: 11-24-2016 Ambulatory Oscar Mendes Work Phone: [facility] Procedures Date Procedure Procedure Detail Performing Clinician Start: 02-03-2020 Carotid artery doppl er assessment Rubin Chirinos Work Phone: Start: 12-08-2019 Adult depression screening assessment David Ludwig Start: 01-13-2019 12 lead ECG Rubin Woody jamison Work Phone: Start: 12-18-2018 Adult depression screening assessment Rubin Taran Start: 01-15-2018 End: 01-15-2018 Ecg routine ecg w/least 12 lds w/i&r Alfreda Gallegos Work Phone: Plan of Treatment Date Care Activity Detail Author Start: 12-07-2029 Tetanus vaccination Tetanus: Every 10yrs [facility] Start: 12-27-2022 History and physical examination, annual for health maintenance Wellness Visit [facility] Start: 12-22-2021 Influenza vaccination Sequential Influenza Vaccine (#1) [facility] Start: 01-31-2021 End: 01-31-2021 Office Visit 01/31/2021 Office Visit Primary Care David Ludwig MD [address] [place] [phone] [facility] Start: 12-07-2020 Administration of herpes zoster vaccine Zoster Vaccines (1 of 2) [facility] Comment on above: Postponed from 10/21/1985 (Treatment Not Available) Start: 12-07-2020 Adolescent depression screening assessment Depression Screening (PHQ9) [facility] Start: 12-07-2020 Depression screening using PHQ-9 (Patient Health Questionnaire 9) score [facility] Start: 12-07-2020 Fall risk assessment Falls Risk Assessment [facility] Start: 12-07-2020 History and physical examination, annual for health maintenance Wellness Visit [facility] Start: 08-09-2020 COVID-19 Vaccine (3 - Booster for Moderna series) COVID-19 Vaccine (3 - Booster for Moderna series) [facility] Start: 07-28-2020 End: 07-28-2020 Office Visit 07/28/2020 Office Visit Primary Care David Ludwig MD [address] [place] [address] [phone] [facility] Start: 07-28-2020 End: 07-28-2021 Microalbumin measurement, urine, quantitative Microalbumin/Creatinine Ratio, UR Random Lab Routine Benign essential hypertension Expected: 07/28/2020, Expires: 07/28/2021 [facility] Comment on above: Expected: 07/28/2020, Expires: Start: 06-10-2020 End: 06-10-2020 Office Visit 06/10/2020 Office Visit Primary Care David Ludwig MD [address] [place] [address] [phone] [facility] Start: 02-03-2020 End: 02-03-2020 Appointment 02/03/2020 Appointment Cardiology Rubin Chirinos MD [address] [place] [address] [phone] [facility] Start: 12-23-2019 Influenza vaccination given Sequential Influenza Vaccine (#1) [facility] Start: 12-19-2019 Depression screening using PHQ-9 (Patient Health Questionnaire 9) score DEPRESSION SCREENING (PHQ9) [facility] Start: 12-19-2019 Fall risk assessment Falls Risk Assessment [facility] Start: 12-08-2019 End: 12-08-2019 Office Visit 12/08/2019 Office Visit Primary Care David Ludwig MD [address] [place] [address] [phone] [facility] Start: 06-16-2019 End: 06-16-2020 Microalbumin measurement, urine, quantitative Microalbumin/Creatinine Ratio, UR Random Lab Routine Benign essential hypertension Expected: 06/16/2019, Expires: 06/16/2020 [facility] Comment on above: Expected: 06/16/2019, Expires: 1 Start: 06-16-2019 End: 06-16-2019 Office Visit 06/16/2019 Office Visit Primary Care David Ludwig MD [address] [place] [address] [phone] [facility] Start: 01-13-2019 End: 01-13-2019 Office Visit 01/13/2019 Office Visit Cardiology Rubin Chirinos MD [address] [place] [address] [phone] [facility] Start: 12-22-2018 Influenza vaccination given SEQUENTIAL INFLUENZA VACCINE (#1) [facility] Start: 12-20-2018 End: 12-20-2018 Office Visit 12/20/2018 Office Visit Primary Care David Ludwig MD [address] [place] [address] [phone] [facility] Start: 12-18-2018 End: 12-18-2018 Office Visit 12/18/2018 Office Visit Primary Care David Ludwig MD [address] [place] [address] [phone] [facility] Start: 06-26-2018 End: 06-27-2019 Microalbumin measurement, urine, quantitative Microalbumin, Urine, Random Routine Benign essential hypertension Expected: 06/26/2018, Expires: 06/27/2019 [facility] Comment on above: Expected: 06/26/2018, Expires: 0 Start: 06-26-2018 End: 06-26-2018 Ambulatory 06/26/2018 Office Visit Primary Care David Ludwig MD [address] [place] [address] [phone] [facility] Start: 06-19-2018 End: 06-19-2018 Ambulatory 06/19/2018 Clinical Support Primary Care [facility] Start: 01-28-2018 End: 01-28-2018 Ambulatory 01/28/2018 Appointment Cardiology Alfreda Gallegos CNP [address] [place] [address] [phone] [facility] Start: 01-10-2018 End: 01-10-2018 Ambulatory 01/10/2018 Office Visit Cardiology Rubin Chirinos MD [address] [place] [address] [phone] [facility] Start: 12-27-2017 End: 12-27-2017 Ambulatory [facility] Start: 12-22-2017 Influenza vaccination SEQUENTIAL INFLUENZA VACCINE (#1) [facility] Start: 12-18-2017 Ambulatory 12/18/2017 Clinical Support Primary Care [facility] Start: 06-26-[address] [facility] Start: 06-25-2017 Ambulatory 06/25/2017 Hospital Encounter Oscar Mendes MD [address] [place] [address] [phone] [facility] Start: 06-20-2017 Ambulatory 06/20/2017 Office Visit Otolaryngology Ceasar Arce MD [address] [address] [phone] [facility] Start: 06-18-2017 Ambulatory 06/18/2017 Hospital Encounter Oscar Mendes MD [address] [place] [address] [phone] [facility] Start: 01-12-2017 Ambulatory 01/12/2017 Hospital Encounter Cardiology Rubin Chirinos MD [address] [place] [address] [phone] [facility] Start: 01-08-2017 Ambulatory 01/08/2017 Office Visit Cardiology Rubin Chirinos MD [address] [place] [address] [phone] [facility] Start: 12-22-2016 Influenza vaccination SEQUENTIAL INFLUENZA VACCINE (#1) [facility] Work Phone: Start: 12-22-2016 SEQUENTIAL INFLUENZA VACCINE (#1) SEQUENTIAL INFLUENZA VACCINE (#1) [facility] Work Phone: Start: 12-13-2016 Ambulatory 12/13/2016 Office Visit Otolaryngology Ceasar Arce MD [address] [place] [place] [address] [phone] [facility] Start: 03-02-2016 Pneumococcal vaccination PNEUMOCOCCAL VACCINE AGE 65+ (2 of 2 - PCV13) [facility] Start: 10-21-2000 Fall risk assessment Steadi Fall Risk Assessment [facility] Start: 10-21-2000 Pneumococcal vaccination PNEUMOCOCCAL VACCINE AGE 65+ (1 of 2 - PCV13) [facility] Work Phone: Start: 10-21-2000 PNEUMOCOCCAL VACCINE AGE 65+ (1 of 2 - PCV13) PNEUMOCOCCAL VACCINE AGE 65+ (1 of 2 - PCV13) [facility] Work Phone: Start: 1995 Zoster vacc, sc ZOSTER VACCINE [facility] Work Phone: Start: 10-21-1985 Administration of herpes zoster vaccine ZOSTER VACCINES (1 of 2) [facility] Start: 10-21-1985 ZOSTER VACCINES (1 of 2) ZOSTER VACCINES (1 of 2) [facility] Start: 10-21-1938 History and physical examination, annual for health maintenance Wellness Visit [facility] Start: 1935 Fall risk assessment Falls Risk Assessment [facility] Start: 1935 End: 1935 DEXA SCAN DEXA SCAN [facility] Work Phone: Start: 1935 End: 1935 Screening for osteoporosis DEXA SCAN [facility] Start: 1935 End: 1935 TETANUS EVERY 10 YR TETANUS EVERY 10 YR [facility] Work Phone: Start: 1935 End: 1935 Tetanus vaccination [facility] Work Phone: End: 03-17-2021 Carotid artery doppler assessment Ultrasound doppler carotid Vascular Ultrasound Routine Bruit of left carotid artery 1 Occurrences starting 01/15/2020 until 03/17/2021 [facility] Comment on above: 1 Occurrences starting 01/15/2020 until 03/17/2021 End: 01-12-2017 Carotid Duplex Carotid Duplex Routine Bruit Once for 1 Occurrences starting 01/12/2017 until 01/12/2017 [facility] Work Phone: Carotid Duplex Carotid Duplex R outine Bruit 01/12/2017 4:01 PM EDT [facility] Work Phone: End: 03-10-2018 Carotid Duplex Carotid Duplex Routine Bruit 1 Occurrences starting 01/08/2017 until 03/10/2018 [facility] Work Phone: End: 06-26-2018 Cholesterol Lipid Panel Routine Pure hypercholesterolemia 1 Occurrences starting 06/26/2017 until 06/26/2018 [facility] End: 06-26-2018 Complete blood count (hemogram) panel - Blood by Automated count CBC Routine Essential hypertension 1 Occurrences starting 06/26/2017 until 06/26/2018 [facility] End: 06-27-2019 Complete blood count with white cell differential, manual CBC and Differential Routine Benign essential hypertension 1 Occurrences starting 11/26/2018 until 06/27/2019 [facility] Comment on above: 1 Occurrences starting 11/26/2018 until 06/27/2019 End: 06-16-2020 Complete blood count with white cell differential, manual CBC and Differential Lab Routine Benign essential hypertension 1 Occurrences starting 06/16/2019 until 06/16/2020 [facility] Comment on above: 1 Occurrences starting 06/16/2019 until 06/16/2020 End: 07-28-2021 Complete blood count with white cell differential, manual CBC and Differential Lab Routine Benign essential hypertension 1 Occurrences starting 07/28/2020 until 07/28/2021 [facility] Comment on above: 1 Occurrences starting 07/28/2020 until 07/28/2021 End: 06-27-2019 Comprehensive metabolic 2000 panel Comprehensive Metabolic Panel Routine Benign essential hypertension 1 Occurrences starting 11/26/2018 until 06/27/2019 [facility] Comment on above: 1 Occurrences starting 11/26/2018 until 06/27/2019 End: 06-16-2020 Comprehensive metabolic 2000 panel Comprehensive Metabolic Panel Lab Routine Benign essential hypertension 1 Occurrences starting 06/16/2019 until 06/16/2020 [facility] Comment on above: 1 Occurrences starting 06/16/2019 until 06/16/2020 End: 07-28-2021 Comprehensive metabolic 2000 panel Comprehensive Metabolic Panel Lab Routine Benign essential hypertension 1 Occurrences starting 07/28/2020 until 07/28/2021 [facility] Comment on above: 1 Occurrences starting 07/28/2020 until 07/28/2021 End: 06-26-2018 Comprehensive metabolic panel [AGGREGATE] Comprehensive Metabolic Panel Routine Essential hypertension 1 Occurrences starting 06/26/2017 until 06/26/2018 [facility] End: 01-16-2019 Echocardiogram complete Echocardiogram complete Routine Dyspnea on exertion 1 Occurrences starting 01/15/2018 until 01/16/2019 [facility] Comment on above: 1 Occurrences starting 01/15/2018 until 01/16/2019 End: 06-27-2019 Lipid 1996 panel Lipid Panel Routine Mixed hyperlipidemia 1 Occurrences starting 11/26/2018 until 06/27/2019 [facility] Comment on above: 1 Occurrences starting 11/26/2018 until 06/27/2019 End: 06-16-2020 Lipid 1996 panel Lipid Panel Lab Routine Mixed hyperlipidemia 1 Occurrences starting 06/16/2019 until 06/16/2020 [facility] Comment on above: 1 Occurrences starting 06/16/2019 until 06/16/2020 End: 07-28-2021 Lipid 1996 panel Lipid Panel Lab Routine Benign essential hypertension 1 Occurrences starting 07/28/2020 until 07/28/2021 [facility] Comment on above: 1 Occurrences starting 07/28/2020 until 07/28/2021 End: 06-26-2018 Microalbumin, Urine, Random Microalbumin, Urine, Random Routine Essential hypertension 1 Occurrences starting 06/26/2017 until 06/26/2018 [facility] End: 06-27-2019 Thyrotropin Qn TSH with Reflex Free T4 Routine Benign essential hypertension 1 Occurrences starting 11/26/2018 until 06/27/2019 [facility] Comment on above: 1 Occurrences starting 11/26/2018 until 06/27/2019 End: 06-26-2018 TSH TSH Routine Hypothyroidism (acquired) 1 Occurrences starting 06/26/2017 until 06/26/2018 [facility] End: 06-16-2020 TSH Qn TSH with Reflex Free T4 Lab Routine Subclinical hypothyroidism 1 Occurrences starting 06/16/2019 until 06/16/2020 [facility] Comment on above: 1 Occurrences starting 06/16/2019 until 06/16/2020 End: 07-28-2021 TSH Qn TSH with Reflex Free T4 Lab Routine Benign essential hypertension 1 Occurrences starting 07/28/2020 until 07/28/2021 [facility] Comment on above: 1 Occurrences starting 07/28/2020 until 07/28/2021 Immunizations Immunization Date Immunization Notes Care Provider Derrick gomez 06-14-2020 Moderna SARS-CoV-2 Vaccination [facility] 05-17-2020 Moderna SARS-CoV-2 Vaccination [facility] 01-28-2020 Seasonal, quadrivale nt, recombinant, injectable influenza vaccine, preservative free [facility] 12-08-2019 diphtheria, tetanus toxoids and acellular pertussis vaccine, unspecified formulation [facility] 12-08-2019 tetanus toxoid, redu cielo diphtheria toxoid, and acellular pertussis vaccine, adsorbed [facility] 12-27-2017 influenza, high dose seasonal, preservative-free; Translations: [INFLUENZA IIV3 HIGH DOSE 65 AND OLDER] [facility] 03-02-2015 influenza virus vacc ine, unspecified formulation Ceasar Prykhodko [facility] 03-02-2015 influenza, injectabl e, quadrivalent, preservative free [facility] 03-02-2015 pneumococcal conjuga te vaccine, 13 valent [facility] 03-02-2015 pneumococcal polysac charide vaccine, 23 valent Ceasar Prykhodko [facility] 03-17-2002 influenza virus vacc ine, unspecified formulation [facility] Payers Date Payer Category Payer Self-pay 2015 Unknown [id number] 2015 Unknown [employer]ARP [employer] [id number] 2015-Present [id number] 2015 Unknown [employer] [place] [id number] 2015-Present [phone] [address] [place] [address] [id number] 2000 Medicare [id number] 2000 Medicare MEDICARE MEDICAR E PART A & B [id number] 2000-Present [place] [id number] 2000 Medicare MEDICARE MEDICAR E PART A & B [id number] 2000-Present [phone] S [id number] PART A CLAIMS [address] [address] [place] [address] [id number] 2000 Unknown xxxxxxxxxxx [id number] 2000 Medicare [id number] 1935 Unknown [id number] 1935 Unknown [id number] 1935 Unknown [id number] 1935 Unknown [id number] 1935 Unknown [id number] Medicare xxxxxxxxxx [id number] Unknown [id number] Unknown [id number] Social History Date Type Detail Facility Start: 12-13-2016 End: 06-26-2017 Tobacco smoking status NHIS Never smoker [facility] Start: 1935 Sex Assigned At Not on file O [employer] Work Phone: Start: 01-06-2016 Alcohol Comment very seldom [facility] Start: 06-26-2017 End: 01-13-2019 Alcohol intake Current drinker of alcohol (finding) [facility] Start: 12-18-2018 End: 07-28-2020 History SDOH Social Connections Phone 3 [facility] Start: 12-18-2018 End: 12-08-2019 History SDOH Food Worry 1 [facility] Start: 12-13-2016 End: 01-15-2020 Tobacco use and exposure Never used [facility] Start: 01-15-2020 End: 07-28-2020 Alcohol intake Ex-drinker (finding) [facility] Start: 12-08-2019 History SDOH Physica l Activity DPW 0 [facility] Start: 12-08-2019 History SDOH Education 14 [facility] Start: 12-08-2019 History SDOH Financial 5 [facility] Start: 12-08-2019 End: 07-28-2020 History SDOH IPV Fear 2 [facility] Start: 06-28-2020 End: 07-28-2020 Exposure to SARS-CoV-2 (event) Not sure [facility] Start: 06-26-2017 End: 07-28-2020 Alcohol intake [facility] Clinical Note 12-27-2024 Note Date & Type Note Facility 12-27-2024 Note HNO ID: [id number] Author: JOAN CARRIZALES RN Service: ? Author Type: Registered Nurse Type: Nursing Progress Note Filed: 12/27/2024 12:22 Note Text: Report was given to juan at [facility] Clinical Note 12-27-2024 Note Date & Type Note Facility 12-27-2024 Note HNO ID: [id number] Author: ANDRE SAN LSW Service: Care Management Author Type: Press Tender Type: Care Mgt Progress Note Filed: 12/27/2024 11:32 Note Text: CARE MANAGEMENT DISCHARGE NOTE SERVICE DATE: December 27, 2024 SERVICE TIME: 11:28 AM Admission Date: 12/24/2024 LOS: 3 days Discharge Arrangement Services Arranged Provider Name: [facility] Caregiver Assessment Transportation Arrangements Transportation Arrangements: Car Date of Trip: 12/27/24 Time of Trip: 1300 Is Patient Medicaid Pending?: No Was transportation financial coverage discussed with family?: Patient, Family Sailmaker Location: [place] Destination: [facility] Financial Care Management Responsibility: None Handoff Communication: Handoff to: Other Caregiver Other Caregiver Name/Phone: Daughter confirmed pt has homecare services through [facility]. F2f included in d/c envelope Additional Information: CM notified regarding d/c today, return to [facility]. Family confirmed pt's son, Yandel Good, will be transporting pt back to the facility. Envelope with d/c information updated. CM will follow, as needed. SIGNATURE: DALILA Moy, TED PATIENT NAME: Na Good DATE: December 27, 2024 TIME: 11:28 AM [facility] Progress note 12-27-2024 Note Date & Type Note Facility 12-27-2024 Note HNO ID: [id number] Author: LIDIA ARMENTA APRN.CNP Service: Cardiovascular Medicine Author Type: Nurse Practitioner Type: Progress Notes Filed: 12/27/2024 09:43 Note Text: Heart and Vascular [place] Domenic Rayo Department of Cardiovascular Medicine SECTION OF [facility] Progress Note Elements of this note, including but not limited to HPI, ROS, Physical Exam, Assessment and Plan were copied and pasted from previous visit notes completed within our department. Updates have been made where appropriate/noted and reflect current exam and medical decision making from date of this visit. Name: Na Good : 1935 Primary Physician: Johnson Watson MD, MD Consulting Physician: Liam Smith MD Primary Locomotive Observer: SERVICE DATE: December 27, 2024 Interval History: Patient seen and examined sitting up in bed - son at bedside Patient with no cardiac complaints this AM Patient CABAZON Overall improved since admission Discharge was held up yesterday due to lower BP readings Pending possible discharge today back to [place]. Labs and tele reviewed ASSESSMENT AND RECOMMENDATIONS Acute on Chronic Systolic Heart Failure DCM - initial dx 1997 > EF 28% with mild recovery - NYHA Functional Class II - Stage C Heart Failure - echo 01/2006: EF 40% - echo 01/2018 (care everywhere): EF 45% - echo 07/2024 (care everywhere): EF 28% - Most recent echo 12/26/2024: EF 25%. Grade I left ventricular diastolic dysfunction. WMA reported. - GDMT: Jardiance 10 mg daily, Aldactone 25 mg daily and Toprol 25 mg daily JOINTER SUBMARINE CABLE >> home meds continued on admission - started on Enalapril 2.[address] Matthews > may benefit from change to Entresto as OP >> noted drop in systolic BP to the 90's after receiving med / IV lasix. Will need close OP monitoring . - Patient appears euvolemic on exam. - started IV lasix on admission 20 mg BID >> will change this to 20 mg po daily - Low sodium diet and fluid allowance reviewed - monitor IANDO - daily weights LV Thrombus - dx 07/2024 at OSH - started Eliquis 2.5 mg BID - echo on admission did not report LV thrombus. Non-sustained VT - noted overnight on tele - Keep K > 4.0 and Magnesium > 2.0 - orders for PO K placed. - asymptomatic - increase BB to BID HTN - good control - home meds continued - Enalapril as above with parameters >> if BP drops after AM dose would consider stopping this. Prior notes show that she has had lower BP readings with KELY-I in the past. HLD - continue current statin Case discussed with Dr. Matthews and nursing staff. Lidia Armenta APRN.ALUMINUM HYDROXIDE PROCESS OPERATOR 12/27/2024 7:36 AM PAST MEDICAL HISTORY PAST MEDICAL HISTORY Diagnosis Date ASCVD (arteriosclerotic cardiovascular disease) CAD (coronary artery disease) CHF (congestive heart failure) (HCC) Disorder of bone and cartilage, unspecified HTN (hypertension) Insomnia LV (left ventricular) mural thrombus Nonischemic cardiomyopathy (HCC) Other primary cardiomyopathies Cardiomyopathy Thyrotoxicosis without mention of goiter or other cause, without mention of thyrotoxic crisis or storm Hyperthyroidism Tremor PAST SURGICAL HISTORY Procedure Laterality Date APPENDECTOMY LIG/TRNSXJ FLP TUBE ABDL/VAG APPR UNI/BI Tubal ligation FAMILY HISTORY FAMILY HISTORY Problem Relation Age of Onset Hypertension Father SOCIAL HISTORY SOCIAL HISTORY[1] INPATIENT MEDICATIONS Current Facility-Administered Medications Medication Dose Route Frequency apixaban 2.5 mg tab(s) (ELIQUIS) 2.5 mg ORAL BID spironolactone 12.5 mg tab(s) (ALDACTONE) 12.5 mg ORAL DAILY rosuvastatin 5 mg tab(s) (CRESTOR) 5 mg ORAL AT BEDTIME metoprolol succinate ER 25 mg tab(s) (TOPROL XL) 25 mg ORAL DAILY empagliflozin 10 mg tab(s) (JARDIANCE) 10 mg ORAL DAILY WITH BREAKFAST senna-docusate 8.6-50 mg 1 tablet (SENNA-S) 1 tablet ORAL DAILY PRN mirtazapine 30 mg (REMERON) 30 mg ORAL AT BEDTIME cholecalciferol 1,000 Units tab(s) (VITAMIN D3) 1,000 Units ORAL DAILY melatonin 3 mg tab(s) 3 mg ORAL AT BEDTIME b complex, c, folic acid 1 mg renal vitamins 1 capsule (NEPHROCAPS) 1 capsule ORAL DAILY NaCl 0.9% iv flush bag 20 mL INTRAVENOUS PRN acetaminophen 650 mg tab(s) (TYLENOL) 650 mg ORAL q 6 H PRN sodium chloride 0.9 % (flush) 2-10 mL (BD POSIFLUSH) 2-10 mL INTRAVENOUS DIRECTED PRN And perflutren lipid microspheres 1.1 mg/mL 1.3 mL injection (DEFINITY) 1.3 mL INTRAVENOUS DIRECTED PRN enalapril 2.5 mg tab(s) (VASOTEC) 2.5 mg ORAL BID furosemide 20 mg injection (LASIX) 20 mg INTRAVENOUS q 12 H 6a/6p ALLERGIES ALLERGIES Allergen Reactions Cortisone facial swelling after IM injection PHYSICAL EXAM BP 107/69 Pulse 92 Temp 36.4 ?C (97.5 ?F) Resp 16 Ht 157.5 cm (5' 2") Wt 55.6 kg (122 lb 9.2 oz) SpO2 93% BMI 22.42 kg/m? General Appearance: Thin and No acute distress HEENT: EOM's intact (more content not included)... [facility] Progress note 12-26-2024 Note Date & Type Note Facility 12-26-2024 Note HNO ID: [id number] Author: LIAM SMITH MD Service: General Internal Medicine Author Type: Physician Type: Progress Notes Filed: 12/26/2024 14:02 Note Text: INPATIENT PROGRESS NOTE Subjective CHIEF COMPLAINT: Shortness of Breath. INTERVAL HPI: Doing a little better, no CP, no N/V/D. Current Facility-Administered Medications Medication Dose Route Frequency apixaban 2.5 mg tab(s) (ELIQUIS) 2.5 mg ORAL BID spironolactone 12.5 mg tab(s) (ALDACTONE) 12.5 mg ORAL DAILY rosuvastatin 5 mg tab(s) (CRESTOR) 5 mg ORAL AT BEDTIME metoprolol succinate ER 25 mg tab(s) (TOPROL XL) 25 mg ORAL DAILY empagliflozin 10 mg tab(s) (JARDIANCE) 10 mg ORAL DAILY WITH BREAKFAST senna-docusate 8.6-50 mg 1 tablet (SENNA-S) 1 tablet ORAL DAILY PRN mirtazapine 30 mg (REMERON) 30 mg ORAL AT BEDTIME cholecalciferol 1,000 Units tab(s) (VITAMIN D3) 1,000 Units ORAL DAILY melatonin 3 mg tab(s) 3 mg ORAL AT BEDTIME b complex, c, folic acid 1 mg renal vitamins 1 capsule (NEPHROCAPS) 1 capsule ORAL DAILY NaCl 0.9% iv flush bag 20 mL INTRAVENOUS PRN acetaminophen 650 mg tab(s) (TYLENOL) 650 mg ORAL q 6 H PRN sodium chloride 0.9 % (flush) 2-10 mL (BD POSIFLUSH) 2-10 mL INTRAVENOUS DIRECTED PRN And perflutren lipid microspheres 1.1 mg/mL 1.3 mL injection (DEFINITY) 1.3 mL INTRAVENOUS DIRECTED PRN furosemide 40 mg injection (LASIX) 40 mg INTRAVENOUS q 12 H 6a/6p enalapril 2.5 mg tab(s) (VASOTEC) 2.5 mg ORAL BID Objective PHYSICAL EXAM: BP 90/54 Pulse 91 Temp (Src) 97.8 (Oral) Resp 16 Ht 5' 2" (1.58m) Wt 122 lb 5.7 oz (55.5kg) SpO2 91% BMI 22.37 kg/(m2). O2 Therapy: Room Air Physical Exam Performed GENERAL: Alert, no distress, cooperative SKIN: Skin color, texture, turgor normal. No rashes or lesions. NECK: No jugulovenous distention, Supple LUNGS: Lungs clear to auscultation, Good diaphragmatic excursion CARDIAC: regular sounds with systolic murmur. ABDOMEN: Abdomen soft, non-tender, BS normal, No masses or organomegaly EXTREMITIES: No edema. DATA: Diagnostic tests reviewed for today's visit: Most recent labs and imaging results. Assessment AND Plan SOB (shortness of breath) on exertion Present on Admission: Yes Acute on chronic combined systolic and diastolic CHF (congestive heart failure) (HCC) Present on Admission: Yes Plan of care: Continue to diurese with IV Lasix. Avoid hypotension, add parameters to her heart medications. Continue BB, Aldactone and KELY-I with parameters. Encourage ambulation. Strict Is/Os and daily weight. Fluid restriction. Awaiting Echo. Monitor LABS and clinical course. Discussed with the son at bedside. Medication and Non-Pharmacologic VTE Prophylaxis/Anticoagulants Anticoagulant AND Antiplatelet Medications (From admission, onward) Start Dose Route Frequency Last Action Ordered Stop 12/24/24 2100 apixaban 2.5 mg tab(s) (ELIQUIS) 2.5 mg PO 2 TIMES DAILY Given, 12/26 0835 12/24/24 1822 -- 12/24/24 1830 activity - mobilize patient ([place], [place]) VTE Prophylaxis: VTE prophylaxis appropriate SIGNATURE: Liam Smith MD PATIENT NAME: Na Good DATE: December 26, 2024 TIME: 1:54 PM [facility] Clinical Note 12-25-2024 Note Date & Type Note Facility 12-25-2024 Note HNO ID: [id number] Author: CATHLEEN THOMAS LSW Service: Care Management Author Type: Press Tender Type: Care Mgt Initial Assessment Filed: 12/25/2024 10:24 Note Text: CARE MANAGEMENT: ASSESSMENT AND DISCHARGE PLAN SERVICE DATE: December 25, 2024 SERVICE TIME: 9:19 AM PCP: Johnson Watson MD, MD Primary Contact: Extended Emergency Contact Information Primary Emergency Contact: FAIZA MARIN Mobile Relation: Daughter Secondary Emergency Contact: KARLOS GOOD Relation: Spouse Admission Status: Inpatient Insurance Provider: MEDICARE A AND B Discharge Planning requested by: Per Department Practice Potential Transition Plans Other: See Comment ([facility]) Advance Directives Current Advance Directive: Health Care Power of Crop Or Grain Farmer In Chart: No Forge Tender Attempted to Assist with AD Completion: Yes Action: Other: See Comment (Asked RN at [facility] to fax to dept.) Current Living Arrangements and Support Lives with: Alone Type of Residence: Assisted Living Facility Does the patient have to climb stairs at home?: No Care Facility Name: [facility] Support: Children, Family members How do you manage to accomplish the following: Independent: Dress, Going to the bathroom Needs Assistance: Ambulation, Bathe/Shower, Meals/Meal Prep, Medication Management Dependent: Transportation to appointments/community Current Services/Equipment Current Post-Acute Service(s): DME Current DME Type: Other: See Comment (walking sticks) Discharge Planning Patient Goal(s): General wellness [place] Explained: [place] Given: Yes Level of Care Discussed: Other: See Comment ([facility]) Are you interested in bedside delivery of your medications? No Discharge Planning Participant(s): Patient, Other person(s) Name/Relationship: RN from [facility] Patient/Family Comments: Caregiver Assessment: Caregiver is ready, willing and able to meet the patient's needs as recommended by the inter-professional team: Yes Name of Caregiver: [facility] Transport at Discharge: Transportation Arrangements: Ambulance Transportation Agency and Phone #:: [facility] [phone] Needs Prior to Discharge: Needs Prior to Discharge: To Be Determined, Discharge Transportation, Other: See Comment, OT/PT Evaluation (medical clearance) Post-Acute Discharge Plan: EMR reviewed. CMSW called and spoke to RN at [facility]; introduced self/role. RN states that she will fax dept POA paperwork. Patient is an 89 year old female who presents with acute on chronic congestive heart failure with PMH of chf (per chart review -July 2024 EF 28%), LV thrombus (eliquis), HTN, tremors, macular degeneration, CAD, CABAZON, and insomnia. RN states that they patient uses [facility] for medications but is unable to confirm which location. Patient uses walking sticks for ambulation and is not active with any skilled services JOINTER SUBMARINE CABLE. Patient is from with [facility] and needs assistance with ADLs. MMT to transport at discharge. Patient is safe and has her needs met. CM assigned will continue to follow for discharge needs. Updated 10:22 am: CMSW met with the patient and patient's daughter, Janelle, at bedside to confirm discharge plan of patient returning to [facility] at discharge; her son will transport her. SIGNATURE: DALILA Salinas PATIENT NAME: Na Good DATE: December 25, 2024 TIME: 9:19 AM [facility] Note 09-21-2020 Telephone Encounter - Shante Hargrove LPN - 09/21/2020 4:05 PM EDT Note Date & Type Note Facility 09-21-2020 Miscellaneous Notes Na called for a refill Pending Prescriptions: Disp Refills lisinopriL (PRINIVIL,ZESTRIL) 20 MG peaqfv10 tab*3 Sig: Take 1 (one) tablet (20 [...] 07/28/2020 Upcoming appt 01/31/2021 Please send to [facility] - [address] [id number] - [address] [facility] [address] [facility] [id number] Please advise documented in this encounter [facility] Telephone encounter Note 11-09-2017 Telephone Encounter - Theresa Berg MA - 11/09/2017 9:59 AM EDT Note Date & Type Note Facility 11-09-2017 Telephone encounter Note Form atting of this note might be different from the original. Second VM left for pt. [facility] Note 11-09-2017 Telephone Encounter - Theresa Berg [...] 20 mg tab. documented in this encounter [facility] Telephone encounter Note 11-07-2017 Telephone Encounter [...] received. Medication requested; lisinopril 20 mg tab. [facility] Evaluation note Note Date & Type Note Facility Evaluation note Diagnosis Benign essential hypertension Essential hypertension, benign Chronic combined systolic and diastolic congestive heart failure (HCC) Insomnia, unspecified type documented in this encounter [facility] Assessments Diagnosis Essential hypertension - Ana huber Unspecified essential hypertension Hypothyroidism (acquired) Unspecified hypothyroidism [...] hyperlipidemia Instructions * Patient Instructions - David Ludwig MD - 12/27/2017 10:59 AM EDT Formatting [...] ECHO in this encounter* Patient Instructions* David Ludwig MD - 06/26/2018 11:07 AM EST Problem [...] another for noisy times like a dinner libertarian in a restaurant. You can change hearing [...] also different styles of hearing aids. A fsvqdt-pyf-iyv (BTE) hearing aid connects to a plastic [...] be replaced as the child grows. An hp-oru-kjsfw (ITC) hearing aid fits into the ear [...] can go to your doctor or an bonus clerk. He or she will do a hearing test and help you decide which type and style of hearing aid may be best for you. But, if your hearing loss is mild to moderate, you might consider buying a good quality odav-zee-hmnobkt hearing aid, which may be called a [...] Log into your personal health record on [email or web address] and enter K597 in the "Education" box to learn more about "Learning About Hearing Aids." Current as of: February 10, 2018 Content Version: 12.20050047-8309 [employer]. Care instructions adapted under license by your healthcare professional. If you have questions about a medical condition or this instruction, always ask your healthcare professional. [employer] disclaims any warranty or liability for your use of this information. documented in this encounter* Patient Instructions* Danii Chen RN - 01/13/2019 10:29 AM EDT .How to contact your Care Team: Provider: Rubin Chirinos MD [facility] Nurse: Danii Chen RN In case of an emergency please call 911. REFILLS: When in need for refills please call your care team or the office at [phone]. Please include medication name, pharmacy name, and specify 30-day or 90-day supply. Please check with your pharmacy within 24 hours of request for your refill. You must follow up as directed to continue current refills. Thank you! documented in this encounter* Patient Instructions* David Ludwig MD - 06/16/2019 10:32 AM EST Problem [...] care and monitor symptoms as instructed. See Taran as scheduled. Other Mixed hyperlipidemia Chronic, stable, [...] your Care Team: Provider: Rubin Chirinos MD [facility] Nurse: Danii Chen RN documented in this encounter* Patient Instructions* David Ludwig MD - 12/08/2019 11:47 AM EDT Problem [...] documented in this encounter* Patient Instructions* David Ludwig MD - 07/28/2020 2:14 PM EDT Problem [...] FoundDocuments on File Type Date Recorded Patient Senior Mobile Application Developer Expl anation Advance Directives and Living Will Documents on File Type Date Recorded Patient Senior Mobile Application Developer Expl anation Advance Directives and Living Will Documents on File Type Date Recorded Patient Senior Mobile Application Developer Expl anation Advance Directives and Livin g Will 02/03/2020 12:00 AM Documents on File Type Date Recorded Patient Senior Mobile Application Developer Expl anation Advance Directives and Livin g Will 02/03/2020 12:00 AM History of Present Illness * David Ludwig MD - 06/26/2018 11:06 AM EST OFFICE [...] thought contentnormal. Patient required cerumen disimpaction by due to the consistency of the wax [...] in this encounter. in this encounter* Kriss Marcelo, Sophie - 12/04/2018 11:34 AM EDT [facility] [address] [place] [address] Name: Na Good : 1935 Date: 12/04/18 [...] Disease [] [] Cancer [] [x] Y N Sp./Lang. Skills Ear Surgery R L Vertigo [] [...] for hearing aid use at Dr. Arce's discretion.Pruden for hearing aid fitting pending otologic clearance at patient's discretion. Use of good communication strategies such as xopf-wu-hurj communication and reduction of background noise when [...] and external ear canal shape. CPT code 13734.50. With the patient in a slightly reclained [...] review the comprehensive hearing test results in [facility] and provided an interpretation to the patient. Indeed it confirmed ZENA symmetric down slopping increase of the JOINTER SUBMARINE CABLE thresholds, normal Type A tympanograms and decreased speech discrimination. 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 Information on the devices and referral to the bonus clerk arranged. Assessment/Plan: Bilateral symmetric mild sensorineural hearing [...] 01/13/2019 11:50 AM EDT OFFICE CONSULTATION NOTE [facility] [address]) [facility] [address] [facility] [id number] Physicians: David Ludwig MD Subjective: Na Good is a 83 [...] Chirinos MD documented in this encounter* David Ludwig MD - 06/16/2019 10:25 AM EST OFFICE [...] care and monitor symptoms as instructed. See Taran as scheduled. Other Mixed hyperlipidemia Chronic, stable, [...] 01/15/2020 3:33 PM EDT OFFICE CONSULTATION NOTE [facility] [address]) [facility] [address] [facility] [id number] Physicians: David Ludwig MD Subjective: Na Good is a 84 [...] Chirinos MD documented in this encounter* David Ludwig MD - 12/08/2019 11:48 AM EDT Subjective Na Good is a 84 y.o. female who presents for a Medicare Wellness Visit. Medicare Risk Assessment Do you have an Advanced Directive (Living Will and/or Durable Power of Crop Or Grain Farmer for Health Care)?: Yes What is your [...] Three Word Registration Version Used: Version 1: Judson, Ibeth, Chair Step 2: Clock Drawing Step 2 [...] conjunction with the immunization order to satisfy [place] Board of Pharmacy Positive ID requirements for [...] week Gets together: Twice a week Attends episcopalian service: Not on file Active member of club or organization: Not on file Attends meetings of clubs or organizations: Not on file Relationship status: Other Topics Concern Not on file Social History Narrative Not on file Allergies: Allergies Allergen Reactions Cortisone Care Team Patient Care Team: David Ludwig MD as PCP - General (Family Medicine) Pharmacy / Equipment Co. (DME) [facility] - [address] [facility] [address] [facility] - [place], [place] - [address] [facility] [address] - [place] [address] [facility] [id number] Objective Blood pressure 133/70, pulse 98, temperature [...] feel vibration documented in this encounter* David Ludwig MD - 07/28/2020 2:13 PM EDT OFFICE [...] Contact Closed Otolaryngology Diagnoses Presbycusis, unspecified laterality Oscar Mendes MD [address] [place] [address] Ceasar Arce MD [address] [place], [place] [address] [address] Status Reason Specialty Diagnoses / Procedures Referred By Contact Referred To Contact Pending Review Cardiology Diagnoses Bruit of left carotid artery Procedures Ultrasound doppler carotid Rubin Chirinos MD [address] [place] [address] Additional Source Comments Assessment & Plan Note - David Ludwig MD - 12/27/2017 10:57 AM EDTAssessment & Plan Note - David Ludwig MD - 12/27/2017 10:57 AM EDT Miscellaneous [...] decompensated heart failure in the clinic today. [employer] functional class I-II. She is [...] care and monitor symptoms as instructed. See Taran as scheduled. Associated Problem(s): Subclinical hypothyroidism Chronic, [...] section and content) DATE CREATED AUTHOR 04/01/2018 [facility] DATE CREATED AUTHOR AUTHOR'S ORGANIZ ATION 02/04/2020 [facility] DATE CREATED AUTHOR AUTHOR'S ORGANIZ ATION 01/15/2021 [facility] DATE CREATED AUTHOR AUTHOR'S ORGANIZ ATION 12/28/2024 [facility] DATE CREATED AUTHOR AUTHOR'S ORGANIZ ATION 12/28/2024 [facility] Reason for Visit (unrecogniz ed section and content) Reason Comments Congestive Heart Failure Hypertension Hyperlipidemia Reason Comments Hearing Loss Pt req to see Dr JIGNESH Aguilar PT Status Reason Specialty Diagnoses / Procedures Referred By Contact Referred To Contact Closed Otolaryngology Diagnoses Presbycusis, unspecified laterality Oscar [place] [address] Ceasar Arce MD [address] [place] [id number] Reason Comments Medicare Wellness Visit VM to schedule M W Status Reason Specialty Diagnoses / Procedures Referred By Contact Referred To Contact Closed Specialty Services Required/Patient' s Best Interest Audiology Diagnoses Sudden hearing loss, unspecified laterality Ceasar Arce MD [address] [place] [address] Kriss Marcelo AuD Reason Comments Hearing Loss left ear Reason Comments Follow-up Denies Chest pain,pr essure,SOB,Swelling Reason Comments Hypertension Hyperlipidemia Hypothyroidism Reason Comments Follow-up yearly Status Reason Specialty Diagnoses / Procedures Referred By Contact Referred To Contact Pending Review Cardiology Diagnoses Bruit of left carotid artery Procedures Ultrasound doppler carotid Rubin Chirinos MD [address] [place] [address] Reason Onset Date Comments Medicare Wellness Visit Fall Risk Screening 12/08/2019 Reason Comments Hypertension Hyperlipidemia Congestive Heart Failure Reason Onset Date Comments Medication Refill 09/21/2020 Reason Comments Medication Refill Care Teams (unrecognized sec tion and content) Air Sampling And Monitoring Relationship Specialty Start Date End Date Anika Hernandez CNP PCP - General Nurse Practitioner 06/15/17 11/28/17 David Ludwig MD PCP - General Family Medicine 11/29/[address] [facility] [place] [address] PCP - [facility] Attributed Provider 07/22/20 04/22/21 FOR RECORDS PERTAINING [...] BE BASED ON THE PRIMARY CLINICAL RECORDS. [employer] [facility]. provides no warranty or guarantee of the accuracy or completeness of information in this document.
[2024-12-29 08:12] LABS: Hematocrit 41.1 % (37-47); Hemoglobin 13.7 g/dL (12.0-15.0); Mean Corp Hgb Conc 33.3 g/dL (32-36); Mean Corpuscular Volume 90.1 fL (81-99); Mean Platelet Vol. 10.7 fl (6.2-12.0); Platelet Count 331 K/mm3 (150-450); RBC Distribution Width CV 15.7 % (11.6-14.6); RBC Distribution Width SD 51.1 fl (35.1-43.9); Red Blood Count 4.56 M/mm3 (4.2-5.4); White Blood Count 8.7 K/mm3 (4.4-11.0)
[2024-12-29 09:58] LABS: Anion Gap 13 (5-15); BUN 27 mg/dL (4-19); BUN/Creat Ratio 30.7 RATIO (10-20); Calcium,Total 9.1 mg/dL (7.6-11.0); Carbon Dioxide 22.2 mmol/L (21.0-32.0); Chloride 103 mmol/L (98-108); Glucose 78 mg/dL (70-99); Potassium 4.2 mmol/L (3.3-5.1)
== END ==
LOC: OLS.ACH2 05:00
PROVIDERS: Referring Provider Internal Medicine; Visit Provider Internal Medicine
DX: I50.22 Chronic systolic (congestive) heart failure (principal)
CPT/HCPCS: 36415; 80048; 85027

== ENCOUNTER → 2025-01-05 04:00 | Outpatient (REF) | payer MEDICARE, OTHER, SELFPAY ==
--- OUTSIDE RECORDS SUMMARY | 2025-01-05 03:58 | XMS RPT_ITS | CCD ---
Author Organization [facility] Care Team Providers Care Municipal Services Manager Name Role Phone Anika Hernandez Unavailable Unavailable [...] le CRODAVID HARKINS Attending Unavailab le DAVID LUDWIG Primary Care Unavailab le Hernandez Anika MARTIN Primary Care Provider David Ludwig MD Primary Care Provider David Ludwig MD Unavailable KELSIJET JOHNSON COELLO Primary Care Unavailab LIAM Viramontes Admitting Unavailable LIAM SMITH Attending Unavailable ROJAS MATTHEWS Consulting Unavailable Alexey Gipson Attending Unavailable Alexey Gipson Attending Unavailable Sarah LUNDY, Alexey Attending Unavailable Allergies Allergy Classification Reported Allergen(s) Allergy Type Date of Onset Reaction(s) Facility Corticosteroids (1 source) Cortisone Drug Allergy 6 [facility] [place] [facility] (20 sources) cortisone; Translations: [CORTISONE] Propensity to adverse reactions to drug 2 [facility] [place] [facility] Work Phone: Medications Current Medications Medication Drug [...] (two) times a day. Active Flu Vaccine [id number](65yr Up)(Pf)180 McG/0.5 Ml Intramuscular Syringe (1 source) Start: 12-27-2017 End: 12-27-2017 flu vaccine tv 2017, 65yr up,,PF, (FLUZONE HIGH DOSE) syringe Indications: Need for influenza vaccination Sign this order in conjunction with the immunization order to satisfy [place] Board of Pharmacy Positive ID requirements for [...] (10 sources) take 1 capsule by mo ut once daily before mealtime vit C/vit E [...] Name Value Interpretation Reference Range Facility Basic Metabolic Profile (BMP )on 12-29-2024 BUN/CRE 30.7 RATIO High 10-20 [facility] Comment on above: Order Comment: 546.1 Performed By: #### L 500.2500, L100.0500 #### [facility] [address] [place], [address] Calcium [Mass/Vol] 9.1 mg/dL Normal 7.6-11.0 [facility] Comment on above: Order Comment: 546.1 Performed By: #### L 500.2500, L100.0500 #### [facility] [address] [place], [address] Chloride [Moles/Vol] 103 mmol/L Normal 98-108 [facility] Comment on above: Order Comment: 546.1 Performed By: #### L 500.2500, L100.0500 #### [facility] [address] [place], [address] CO2 [Moles/Vol] 22.2 mmol/L Normal 21.0-32.0 [facility] Comment on above: Order Comment: 546.1 Performed By: #### L 500.2500, L100.0500 #### [facility] [address] [place], [address] Creatinine [Mass/Vol] 0.88 mg/dL Normal 0.70-1.20 [facility] Comment on above: Order Comment: 546.1 Performed By: #### L 500.2500, L100.0500 #### [facility] [address] [place], [address] GAP 13 Normal 5-15 [facility] Comment on above: Order Comment: 546.1 Performed By: #### L 500.2500, L100.0500 #### [facility] [address] [place], [address] GFR/1.73 sq M.predicted among non-blacks MDRD (S/P/Bld) [Vol rate/Area] 63 mL/min/{1.73_m2} Normal >60 [facility] Comment on above: Order Comment: 546.1 Result Comment: mL/m in/1.73m2 CKD-EPI Creatinine Equation (2020) Performed By: #### L 500.2500, L100.0500 #### [facility] [address] [place], [address] Glucose [Mass/Vol] 78 mg/dL Normal 70-99 [facility] Comment on above: Order Comment: 546.1 Performed By: #### L 500.2500, L100.0500 #### [facility] [address] [place], [address] Potassium [Moles/Vol] 4.2 mmol/L Normal 3.3-5.1 [facility] Comment on above: Order Comment: 546.1 Performed By: #### L 500.2500, L100.0500 #### [facility] [address] [place], [address] Sodium [Moles/Vol] 138 mmol/L Normal 133-145 [facility] Comment on above: Order Comment: 546.1 Performed By: #### L 500.2500, L100.0500 #### [facility] [address] [place], [address] Urea nitrogen [Mass/Vol] 27 mg/dL High 4-19 [facility] Comment on above: Order Comment: 546.1 Performed By: #### L 500.2500, L100.0500 #### [facility] [address] [place], [address] CBC-Complete Blood Cnt No Di ffon 12-29-2024 Erythrocyte distribution width (RBC) [Ratio] 15.7 % High 11.6-14.6 [facility] Comment on above: Order Comment: 546-1 Performed By: #### L 100.0500, L500.2500 #### [facility] [address] [place], [address] Hematocrit (Bld) [Volume fraction] 41.1 % Normal 37-47 [facility] Comment on above: Order Comment: 546-1 Performed By: #### L 100.0500, L500.2500 #### [facility] [address] [place], [address] Hemoglobin (Bld) [Mass/Vol] 13.7 g/dL Normal 12.0-15.0 [facility] Comment on above: Order Comment: 546-1 Performed By: #### L 100.0500, L500.2500 #### [facility] [address] [place], [address] MCH (RBC) [Entitic mass] 30.0 pg Normal 27.0-32.0 [facility] Comment on above: Order Comment: 546-1 Performed By: #### L 100.0500, L500.2500 #### [facility] [address] [place], [address] MCHC (RBC) [Mass/Vol] 33.3 g/dL Normal 32-36 [facility] Comment on above: Order Comment: 546-1 Performed By: #### L 100.0500, L500.2500 #### [facility] [address] [place], [address] MCV (RBC) [Entitic vol] 90.1 fL Normal 81-99 [facility] Comment on above: Order Comment: 546-1 Performed By: #### L 100.0500, L500.2500 #### [facility] [address] [place], [address] Platelet mean volume (Bld) [Entitic vol] 10.7 fL Normal 6.2-12.0 [facility] Comment on above: Order Comment: 546-1 Performed By: #### L 100.0500, L500.2500 #### [facility] [address] [place], [address] Platelets (Bld) [#/Vol] 331 10*3/uL Normal 150-450 [facility] Comment on above: Order Comment: 546-1 Performed By: #### L 100.0500, L500.2500 #### [facility] [address] [place], [address] RBC (Bld) [#/Vol] 4.56 10*6/uL Normal 4.2-5.4 [facility] Comment on above: Order Comment: 546-1 Performed By: #### L 100.0500, L500.2500 #### [facility] [address] [place], [address] RDW SD 51.1 fl High 35.1-43.9 [facility] Comment on above: Order Comment: 546-1 Performed By: #### L 100.0500, L500.2500 #### [facility] [address] [place], [address] WBC (Bld) [#/Vol] 8.7 10*3/uL Normal 4.4-11.0 [facility] Comment on above: Order Comment: 546-1 Performed By: #### L 100.0500, L500.2500 #### [facility] [address] [place], [address] Basic metabolic 2000 panelon 12-27-2024 Anion gap [Moles/Vol] 11 mmol/L Normal 8-[address] [facility] Comment on above: Order Comment: Speci men Type: BLOOD SPECIMENOrdering Facility: [facility] Address: [address], [place] [address] Performed By: #### 2 3611-2 ####[facility]ORATORYCLIA [id number] [place] [address] [place] Calcium [Mass/Vol] 8.9 mg/dL Normal 8.5-10.2 [facility] Comment on above: Order Comment: Speci men Type: BLOOD SPECIMENOrdering Facility: [facility] Address: [address] [place] [address] Performed By: #### 2 4321-2 ####[facility] LABORATORYCLIA [id number] [place] [address] [place] Chloride [Moles/Vol] 97 mmol/L Low 98-107 [facility] Comment on above: Order Comment: Speci men Type: BLOOD SPECIMENOrdering Facility: [facility] Address: [address] [place] [address] Performed By: #### 2 4321-2 ####[facility] LABORATORYCLIA [id number] [place] [address] [place] CO2 [Moles/Vol] 26 mmol/L Normal 22-30 [facility] Comment on above: Order Comment: Speci men Type: BLOOD SPECIMENOrdering Facility: [facility] Address: [address] [place] [address] Performed By: #### 2 4321-2 ####[facility] LABORATORYCLIA [id number] [place] [address] [place] Creatinine [Mass/Vol] 0.97 mg/dL High 0.58-0.[address] [facility] Comment on above: Order Comment: Speci men Type: BLOOD SPECIMENOrdering Facility: [facility] Address: [address] [place] [address] Performed By: #### 2 4321-2 ####[facility] LABORATORYCLIA [id number] [place] [address] [place] eGFRcr SerPlBld CKD-EPI 2020 56 mL/min/1.73m??? Low >=60 [facility] Comment on above: Order Comment: Speci men Type: BLOOD SPECIMENOrdering Facility: [facility] Address: [address] [place] [address] Result Comment: Radha mated Glomerular Filtration Rate [...] Performed By: #### 2 4321-2 ####[facility] LABORATORYCLIA [id number] [place] [address] [place] Glucose [Mass/Vol] 84 mg/dL Normal 74-99 [facility] Comment on above: Order Comment: Specsj florez Type: BLOOD SPECIMENOrdering Facility: [facility] Address: [address] [id number] Result Comment: The [place] Diabetes Association (ADA) provides guidance for cutoff [...] Standards of Medical Care in Diabetes 2016, [place] [employer] Association. Diabetes Care. 2016.39(Suppl 1). Performed By: #### 2 4321-2 ####[facility] LABORATORYCLIA [id number] [place] [id number] [place] Potassium [Moles/Vol] 3.6 mmol/L Low 3.7-5.[address] [facility] Comment on above: Order Comment: Vita florez Type: BLOOD SPECIMENOrdering Facility: [facility] Address: [address] [place] [address] Performed By: #### 2 4321-2 ####[facility] LABORATORYCLIA [id number] [place] [address] [place] Sodium [Moles/Vol] 134 mmol/L Low 136-144 [facility] Comment on above: Order Comment: Speci men Type: BLOOD SPECIMENOrdering Facility: [facility] Address: [address] [place] [address] Performed By: #### 2 4321-2 ####[facility] LABORATORYCLIA [id number] [address] Urea nitrogen [Mass/Vol] 28 mg/dL High 7-21 [facility] Comment on above: Order Comment: Speci men Type: BLOOD SPECIMENOrdering Facility: [facility] Address: [address] [place] [address] Performed By: #### 2 4321-2 ####[facility] LABORATORYCLIA [id number] [address] CBC panel Auto (Bld)on 12-27 Erythrocyte distribution width (RBC) [Ratio] 15.6 % High 11.5-15.0 [facility] Comment on above: Order Comment: Speci men Type: BLOOD SPECIMENOrdering Facility: [facility] Address: [address] [place] [address] Performed By: #### 5 8410-2 ####[facility] LABORATORYCLIA [id number] [address] Hematocrit (Bld) [Volume fraction] 41.6 % Normal 36.0-46.0 [facility] Comment on above: Order Comment: Speci men Type: BLOOD SPECIMENOrdering Facility: [facility] Address: [address] [place] [address] Performed By: #### 5 8410-2 ####[facility] LABORATORYCLIA [id number] [address] Hemoglobin (Bld) [Mass/Vol] 13.9 g/dL Normal 11.5-15.5 [facility] Comment on above: Order Comment: Speci men Type: BLOOD SPECIMENOrdering Facility: [facility] Address: [address] [place] [address] Performed By: #### 5 8410-2 ####[facility] LABORATORYCLIA [id number] [address] MCH (RBC) [Entitic mass] 29.2 pg Normal 26.0-34.0 [facility] Comment on above: Order Comment: Speci men Type: BLOOD SPECIMENOrdering Facility: [facility] Address: [address] [place] [address] Performed By: #### 5 8410-2 ####[facility] LABORATORYCLIA [id number] [address] MCHC (RBC) [Mass/Vol] 33.4 g/dL Normal 30.5-36.[address] [facility] Comment on above: Order Comment: Speci men Type: BLOOD SPECIMENOrdering Facility: [facility] Address: [address] [place] [address] Performed By: #### 5 8410-2 ####[facility] LABORATORYCLIA [id number] [address] MCV (RBC) [Entitic vol] 87.4 fL Normal 80.0-100.0 [facility] Comment on above: Order Comment: Speci men Type: BLOOD SPECIMENOrdering Facility: [facility] Address: [address] [place] [address] Performed By: #### 5 8410-2 ####[facility] LABORATORYCLIA [id number] [address] Nucleated RBC (Bld) [#/Vol] 10*3/uL Normal <0.01 [facility] Comment on above: Order Comment: Speci men Type: BLOOD SPECIMENOrdering Facility: [facility] Address: [address] [place] [address] Performed By: #### 5 8410-2 ####[facility] LABORATORYCLIA [id number] [address] Platelet mean volume (Bld) [Entitic vol] 10.2 fL Normal 9.0-12.7 [facility] Comment on above: Order Comment: Speci men Type: BLOOD SPECIMENOrdering Facility: [facility] Address: [address] [place] [address] Performed By: #### 5 8410-2 ####[facility] LABORATORYCLIA [id number] [address] Platelets (Bld) [#/Vol] 334 10*3/uL Normal 150-400 [facility] Comment on above: Order Comment: Vita florez Type: BLOOD SPECIMENOrdering Facility: [facility] Address: [address] [place] [address] Performed By: #### 5 8410-2 ####[facility]ORATORYCLIA [id number] [address] RBC (Bld) [#/Vol] 4.76 10*6/uL Normal 3.90-5.20 [facility] Comment on above: Order Comment: Vita florez Type: BLOOD SPECIMENOrdering Facility: [facility] Address: [address] [place] [address] Performed By: #### 5 8410-2 ####[facility] LABORATORYCLIA [id number] [address] WBC (Bld) [#/Vol] 11.86 10*3/uL High 3.70-11.00 [facility] Comment on above: Order Comment: Vita gautam Type: BLOOD SPECIMENOrdering Facility: [facility] Address: [address] [place] [address] Performed By: #### 5 8410-2 ####[facility] LABORATORYCLIA [id number] [place] [id number] [facility] CNDSon 12-27-2024 CNDS HNO ID: [id number] Author: JOSE ANTONIO MILTON MD Service: General [...] being discharged to her Assisted Living with [facility] Transitions of Care Critical Issues: as [...] medications will be mailed to you From: [facility] [place] [address] - [address] - [phone] enalapril 2.5 mg tablet furosemide 20 mg tablet FUTURE APPOINTMENTS: Follow Up with PCP: Johnson Watson MD, MD The patient's risk for 30-day readmission is determined using the following contributing factors: Predictive Model Details 11% (Low) Factor Value Calculated 12/27/2024 05:20 -16% diagnosis count 5 [facility] READMISSION RISK Model 11% Facility [facility] -8% ED visits (365d) 0 8% Hospital [address] -8% Admissions (365d) 1 -6% ED Encounter 0 -6% Sodium (Avg) 138.33 -5% Malnutrition 0 -5% Observations (365d) 0 -5% Current Age 89 Plan of care discussed with Patient, Family/Significant Other: son, Care Management, and RN I have performed the civg-dy-ktuf and relevant services for a total of >30 minutes. SIGNATURE: Jose Antonio Milton MD DATE: December 27, 2024 TIME: 10:38 AM Normal [facility] Basic metabolic 2000 panelon 12-26-2024 Anion gap [Moles/Vol] 11 mmol/L Normal 8-[address] [facility] Comment on above: Order Comment: Speci men Type: BLOOD SPECIMENOrdering Facility: [facility] Address: [address] [place] [address] Performed By: #### 2 4321-2 ####[facility] LABORATORYCLIA [id number] [place] [address] [place] Calcium [Mass/Vol] 8.9 mg/dL Normal 8.5-10.2 [facility] Comment on above: Order Comment: Speci men Type: BLOOD SPECIMENOrdering Facility: [facility] Address: [address] [place] [address] Performed By: #### 2 4321-2 ####[facility] LABORATORYCLIA [id number] [place] [address] [place] Chloride [Moles/Vol] 101 mmol/L Normal 98-107 [facility] Comment on above: Order Comment: Speci men Type: BLOOD SPECIMENOrdering Facility: [facility] Address: [address] [place] [address] Performed By: #### 2 4321-2 ####[facility] LABORATORYCLIA [id number] [place] [address] [place] CO2 [Moles/Vol] 28 mmol/L Normal 22-30 [facility] Comment on above: Order Comment: Speci men Type: BLOOD SPECIMENOrdering Facility: [facility] Address: [address] [place] [address] Performed By: #### 2 4321-2 ####[facility] LABORATORYCLIA [id number] [place] [address] [place] Creatinine [Mass/Vol] 1.07 mg/dL High 0.58-0.[address] [facility] Comment on above: Order Comment: Speci men Type: BLOOD SPECIMENOrdering Facility: [facility] Address: [address] [place] [address] Performed By: #### 2 4321-2 ####[facility] LABORATORYCLIA [id number] [place] [address] [place] eGFRcr SerPlBld CKD-EPI 2020 50 mL/min/1.73m??? Low >=60 [facility] Comment on above: Order Comment: Speci men Type: BLOOD SPECIMENOrdering Facility: [facility] Address: [address] [place] [address] Result Comment: Radha mated Glomerular Filtration Rate [...] Performed By: #### 2 4321-2 ####[facility] LABORATORYCLIA [id number] [place] [id number] [place] Glucose [Mass/Vol] 77 mg/dL Normal 74-99 [facility] Comment on above: Order Comment: Vita florez Type: BLOOD SPECIMENOrdering Facility: [facility] Address: [address] [place] [address] Result Comment: The [place] Diabetes Association (ADA) provides guidance for cutoff [...] Standards of Medical Care in Diabetes 2016, [place] Diabetes [employer]. Diabetes Care. 2016.39(Suppl 1). Performed By: #### 2 4321-2 ####[facility] LABORATORYCLIA [id number] [place] [id number] [place] Potassium [Moles/Vol] 3.7 mmol/L Normal 3.7-5.[address] [facility] Comment on above: Order Comment: Vita florez Type: BLOOD SPECIMENOrdering Facility: [facility] Address: [address] [id number] Performed By: #### 2 4321-2 ####[facility] LABORATORYCLIA [id number] [place] [address] [place] Sodium [Moles/Vol] 140 mmol/L Normal 136-144 [facility] Comment on above: Order Comment: Speci men Type: BLOOD SPECIMENOrdering Facility: [facility] Address: [address] [place] [address] Performed By: #### 2 4321-2 ####[facility] LABORATORYCLIA [id number] [address] [place] [facility] Urea nitrogen [Mass/Vol] 31 mg/dL High 7-21 [facility] Comment on above: Order Comment: Speci men Type: BLOOD SPECIMENOrdering Facility: [facility] Address: [address] [place] [address] Performed By: #### 2 4321-2 ####[facility] LABORATORYCLIA [id number] [address] CBC panel Auto (Bld)on 12-26 Erythrocyte distribution width (RBC) [Ratio] 15.8 % High 11.5-15.0 [facility] Comment on above: Order Comment: Speci men Type: BLOOD SPECIMENOrdering Facility: [facility] Address: [address] [place] [address] Performed By: #### 5 8410-2 ####[facility] LABORATORYCLIA [id number] [address] Hematocrit (Bld) [Volume fraction] 41.9 % Normal 36.0-46.0 [facility] Comment on above: Order Comment: Speci men Type: BLOOD SPECIMENOrdering Facility: [facility] Address: [address] [place] [address] Performed By: #### 5 8410-2 ####[facility] LABORATORYCLIA [id number] [address] Hemoglobin (Bld) [Mass/Vol] 14.0 g/dL Normal 11.5-15.5 [facility] Comment on above: Order Comment: Speci men Type: BLOOD SPECIMENOrdering Facility: [facility] Address: [address] [place] [address] Performed By: #### 5 8410-2 ####[facility] LABORATORYCLIA [id number] [address] [place] MCH (RBC) [Entitic mass] 29.7 pg Normal 26.0-34.0 [facility] Comment on above: Order Comment: Speci men Type: BLOOD SPECIMENOrdering Facility: [facility] Address: [address] [place] [address] Performed By: #### 5 8410-2 ####[facility] LABORATORYCLIA [id number] [place] [address] [place] MCHC (RBC) [Mass/Vol] 33.4 g/dL Normal 30.5-36.[address] [facility] Comment on above: Order Comment: Speci men Type: BLOOD SPECIMENOrdering Facility: [facility] Address: [address] [place] [address] Performed By: #### 5 8410-2 ####BA[facility] LABORATORYCLIA [id number] [address] [place] MCV (RBC) [Entitic vol] 89.0 fL Normal 80.0-100.0 [facility] Comment on above: Order Comment: Speci men Type: BLOOD SPECIMENOrdering Facility: [facility] Address: [address] [place] [address] Performed By: #### 5 8410-2 ####[facility] LABORATORYCLIA [id number] [place] [address] [place] Nucleated RBC (Bld) [#/Vol] 10*3/uL Normal <0.01 [facility] Comment on above: Order Comment: Speci men Type: BLOOD SPECIMENOrdering Facility: [facility] Address: [address] [place] [address] Performed By: #### 5 8410-2 ####BA[facility] LABORATORYCLIA [id number] [address] [place] Platelet mean volume (Bld) [Entitic vol] 10.6 fL Normal 9.0-12.7 [facility] Comment on above: Order Comment: Speci men Type: BLOOD SPECIMENOrdering Facility: [facility] Address: [address] [place] [address] Performed By: #### 5 8410-2 ####BA[facility] LABORATORYCLIA [id number] [address] [place] Platelets (Bld) [#/Vol] 364 10*3/uL Normal 150-400 [facility] Comment on above: Order Comment: Speci men Type: BLOOD SPECIMENOrdering Facility: [facility] Address: [address] [place] [address] Performed By: #### 5 8410-2 ####[facility] LABORATORYCLIA [id number] [place] [id number] [facility] [place] RBC (Bld) [#/Vol] 4.71 10*6/uL Normal 3.90-5.20 [facility] Comment on above: Order Comment: Speci men Type: BLOOD SPECIMENOrdering Facility: [facility] Address: [address] [place] [address] Performed By: #### 5 8410-2 ####[facility] LABORATORYCLIA [id number] [place] [id number] [facility] [place] WBC (Bld) [#/Vol] 10.64 10*3/uL Normal 3.70-11.00 [facility] Comment on above: Order Comment: Speci men Type: BLOOD SPECIMENOrdering Facility: [facility] Address: [address] [place] [address] Performed By: #### 5 8410-2 ####[facility] LABORATORYCLIA [id number] [place] [id number] [facility] ECHOon 12-26-2024 Echocardiography Echocardiography Report: Transthoracic Echo [facility] Date of service: 12/26/2024 12:23:03 PM Ordering physician: COLLEEN OLIVARES Exam indication: cardiomyopathy Technologist: Caterina Mao RDCS Interpreting physician: Rojas Matthews MD PATIENT: Name: [...] * * Final * * * CC [employer] Medical Image : [id number] [facility]-26-2024 NURSING PROG HNO ID: [id number] Author: RAULITO CHAVEZ, LAKESHIA Service: Nursing Author Type: Registered Nurse Type: Nursing Progress Note Filed: 12/26/2024 14:50 Note Text: PATIENT EDUCATION HEART FAILURE PATIENT NAME: Na Good [facility]IENT [facility]- 2 SURVIVAL SKILLS: Low Sodium Diet Weight Monitoring [...] Skill discussed. Pt in assisted living in [place], this is fairly new for her. Children are all out of states. Son will discuss daily weight and low sodium meal plan w/ staff. Currently she orders off a menu @ meal times. Pt doesn't drink over 64 ounces per day, but unsure of intake. Medications are provided to her @ [place]. 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 Pt states her normal weighs are b/t [...] Patient Education Electronically Signed By: [facility] THERAPY NTon 12-26-2024 THERAPY NT HNO ID: [id number] Author: LESLIE BARRERA PT Service: Physical Therapy Author Type: Physical Therapist Type: Therapy (PT/OT/Speech/Resp) Filed: 12/26/2024 11:56 Note Text: Summary: PT eval Physical Therapy Evaluation Summary SERVICE DATE: 12/26/2024 SERVICE TIME: 1123 to 1146 ROOM: [place] [address] PT 6 Clicks Score: 18 DISCHARGE RECOMMENDATIONS [...] HOME LIVING Patient Lives With: Facility Care ([facility]) Assistance Available: 24-Hour (has a necklace she [...] on feet TREATMENT INTERVENTIONS Evaluation, Therapeutic Exercise (36405) Timed Code Treatment (minutes): 8 Skilled Treatment Time (minutes): 23 $ Evaluation-Low (27656) Billed Units: 1 unit Therapeutic Exercise (74242) Treatment Minutes: 8 $ Therapeutic Exercise (14233) Billed Units: 1 unit TRAINING AND EDUCATION [...] Abduction (number of reps): 20 ea Exercise: Marches completed in sitting. Patient educated on all [...] Transfer Equipment: Wheele (more content not included)... [facility] Basic metabolic 2000 panelon 12-25-2024 Anion gap [Moles/Vol] 10 mmol/L Normal 8-[address] [facility] Comment on above: Order Comment: Speci men Type: BLOOD SPECIMENOrdering Facility: [facility] Address: [address] [place], [place] [address] [address] Performed By: #### 2 4321-2, 3016-3 ####BA[facility] LABORATORYCLIA [id number] [place] [address] [place]#### 3024-7 ####[facility] LABCLIA [id number] [place] [address] [place] Calcium [Mass/Vol] 9.1 mg/dL Normal 8.5-10.2 [facility] Comment on above: Order Comment: Speci men Type: BLOOD SPECIMENOrdering Facility: [facility] Address: [address] [place] [address] Performed By: #### 2 4321-2, 6-3 ####BAIRD LABORATORYCLIA [id number] [place] [address] [place]#### 3024-7 ####[facility] LABCLIA [id number] [place] [address] [place] Chloride [Moles/Vol] 103 mmol/L Normal 98-107 [facility] Comment on above: Order Comment: Speci men Type: BLOOD SPECIMENOrdering Facility: [facility] Address: [address] [place] [address] Performed By: #### 2 4321-2, 6-3 ####BAIRD LABORATORYCLIA [id number] [place] [address] [place]#### 3024-7 ####[facility] LABCLIA [id number] [place] [id number] [place] CO2 [Moles/Vol] 26 mmol/L Normal 22-30 [facility] Comment on above: Order Comment: Speci men Type: BLOOD SPECIMENOrdering Facility: [facility] Address: [address] [place], [place] [address] Performed By: #### 2 432-2, 3 ####BAIRD LABORATORYCLIA [id number] [place] [address] [place]#### 3024-7 ####[facility] LABCLIA [id number] [place] [id number] [place] Creatinine [Mass/Vol] 1.01 mg/dL High 0.58-0.[address] [facility] Comment on above: Order Comment: Specsj men Type: BLOOD SPECIMENOrdering Facility: [facility] Address: [address] [place] [address] Performed By: #### 2 4320-2, 3015-06 ####[facility] LABORATORYCLIA [id number] [address] STATES [facility]#### 3024-7 ####[facility] LABCLIA [id number] [place] [address] [place] eGFRcr SerPlBld CKD-EPI 2020 53 mL/min/1.73m??? Low >=60 [facility] Comment on above: Order Comment: Vita florez Type: BLOOD SPECIMENOrdering Facility: [facility] Address: [address] [place] [address] Result Comment: Radha mated Glomerular Filtration Rate [...] GFR. Performed By: #### 2 432-2, 3015-3 ####BAIRD LABORATORYCLIA [id number] [place] [address] [place]#### 3024-7 ####[facility] LABCLIA [id number] [place] [id number] [place] Glucose [Mass/Vol] 80 mg/dL Normal 74-99 [facility] Comment on above: Order Comment: Vita gautam Type: BLOOD SPECIMENOrdering Facility: [facility] Address: [address] [place] [address] Result Comment: The [place] Diabetes Association (ADA) provides guidance for cutoff [...] Standards of Medical Care in Diabetes 2016, [employer] Diabetes Association. Diabetes Care. 2016.39(Suppl 1). Performed By: #### 2 4321-2, 3015-3 ####[facility] LABORATORYCLIA [id number] [place] [address] [place]#### 3024-7 ####[facility] LABCLIA [id number] [place] [address] [place] Potassium [Moles/Vol] 4.3 mmol/L Normal 3.7-5.[address] [facility] Comment on above: Order Comment: Vale gautam Type: BLOOD SPECIMENOrdering Facility: [facility] Address: [address] [place] [address] Performed By: #### 2 432-2, 3015-3 ####BA[facility] LABORATORYCLIA [id number] [place] [address] [place]#### 3024-7 ####[facility] LABCLIA [id number] [place] [address] [place] Sodium [Moles/Vol] 139 mmol/L Normal 136-144 [facility] Comment on above: Order Comment: [facility] Type: BLOOD SPECIMENOrdering Facility: [facility] Address: [address] [place] [address] Performed By: #### 2 4321-2, 6-3 ####BAIRD LABORATORYCLIA [id number] [place] [address] [place]#### 3024-7 ####[facility] LABCLIA [id number] [address] [place] Urea nitrogen [Mass/Vol] 25 mg/dL High 7-21 [facility] Comment on above: Order Comment: Speci men Type: BLOOD SPECIMENOrdering Facility: [facility] Address: [address] [place] [address] Performed By: #### 2 4321-2, 3015-3 ####BA[facility] LABORATORYCLIA [id number] [place] [address] [facility]#### 3024-7 ####[facility] LABCLIA [id number] [address] [place] CBC panel Auto (Bld)on 12-25 Erythrocyte distribution width (RBC) [Ratio] 15.9 % High 11.5-15.0 [facility] Comment on above: Order Comment: Speci men Type: BLOOD SPECIMENOrdering Facility: [facility] Address: [address] [place] [address] Performed By: #### 5 8410-2 ####BAIRD LABORATORYCLIA [id number] [address] STATES [facility] Hematocrit (Bld) [Volume fraction] 40.0 % Normal 36.0-46.0 [facility] Comment on above: Order Comment: Speci men Type: BLOOD SPECIMENOrdering Facility: [facility] Address: [address] [place] [address] Performed By: #### 5 8410-2 ####[facility] LABORATORYCLIA [id number] [address] [place] Hemoglobin (Bld) [Mass/Vol] 13.0 g/dL Normal 11.5-15.5 [facility] Comment on above: Order Comment: Speci men Type: BLOOD SPECIMENOrdering Facility: [facility] Address: [address] [place] [address] Performed By: #### 5 8410-2 ####BAIRD LABORATORYCLIA [id number] [address] MCH (RBC) [Entitic mass] 29.1 pg Normal 26.0-34.0 [facility] Comment on above: Order Comment: Speci men Type: BLOOD SPECIMENOrdering Facility: [facility] Address: [address] [place] [address] Performed By: #### 5 8410-2 ####BA[facility] LABORATORYCLIA [id number] [address] MCHC (RBC) [Mass/Vol] 32.5 g/dL Normal 30.5-36.[address] [facility] Comment on above: Order Comment: Speci men Type: BLOOD SPECIMENOrdering Facility: [facility] Address: [address] [place] [address] Performed By: #### 5 8410-2 ####[facility] LABORATORYCLIA [id number] [address] MCV (RBC) [Entitic vol] 89.7 fL Normal 80.0-100.0 [facility] Comment on above: Order Comment: Speci men Type: BLOOD SPECIMENOrdering Facility: [facility] Address: [address] [place] [address] Performed By: #### 5 8410-2 ####BA[facility] LABORATORYCLIA [id number] [address] Nucleated RBC (Bld) [#/Vol] 10*3/uL Normal <0.01 [facility] Comment on above: Order Comment: Speci men Type: BLOOD SPECIMENOrdering Facility: [facility] Address: [address] [place] [address] Performed By: #### 5 8410-2 ####BAIRD LABORATORYCLIA [id number] [address] Platelet mean volume (Bld) [Entitic vol] 10.2 fL Normal 9.0-12.7 [facility] Comment on above: Order Comment: Speci men Type: BLOOD SPECIMENOrdering Facility: [facility] Address: [address] [place] [address] Performed By: #### 5 8410-2 ####[facility] LABORATORYCLIA [id number] [address] Platelets (Bld) [#/Vol] 324 10*3/uL Normal 150-400 [facility] Comment on above: Order Comment: Speci men Type: BLOOD SPECIMENOrdering Facility: [facility] Address: [address] [place] [address] Performed By: #### 5 8410-2 ####BAIRD LABORATORYCLIA [id number] [address] [place] RBC (Bld) [#/Vol] 4.46 10*6/uL Normal 3.90-5.20 [facility] Comment on above: Order Comment: Speci men Type: BLOOD SPECIMENOrdering Facility: [facility] Address: [address] [place] [address] Performed By: #### 5 8410-2 ####[facility] LABORATORYCLIA [id number] [address] [place] WBC (Bld) [#/Vol] 9.63 10*3/uL Normal 3.70-11.00 [facility] Comment on above: Order Comment: Speci men Type: BLOOD SPECIMENOrdering Facility: [facility] Address: [address] [place] [address] Performed By: #### 5 8410-2 ####BA[facility] LABORATORYCLIA [id number] [address] CONSULTon 12-25-2024 CONSULT HNO ID: [id number] Author: ROJAS MATTHEWS MD Service: Cardiovascular Medicine Author Type: Physician Type: Consults Filed: 12/25/2024 15:05 Note Text: . [facility] [place] Domenic Rayo Department of Cardiovascular Medicine SECTION OF [facility] Consultation Note Name: Na Good : 1935 Primary Physician: Johnson Watson MD, MD Consulting Physician: Liam Smith MD Primary Assistant Professor Of Life Sciences: SERVICE DATE: December 25, 2024 ADMISSION HISTORY [...] diminished int (more content not included)... Normal [facility] HISTORY PHYSICALon HISTORY PHYSICAL HNO ID: [id number] Author: LIAM SMITH MD Service: General Internal Medicine Author Type: Physician Type: H&P Filed: 12/25/2024 14:11 Note Text: [facility] STAFF PHYSICIAN NOTE OF PERSONAL INVOLVEMENT IN [...] counseling and/or coordinating care for the patient. Ffnj-sf-plrw time was 35 minutes SIGNATURE: Liam Smith [...] thrombus (eliquis), HTN, tremors, macular degeneration, CAD, [place], and insomnia. Her medical records in [facility] are from [place], [place]. Daughter, Janelle is at the bedside. (She is from [place]). She moved back to [place] in August due to the altitude- shortness of breath. She is residing at [facility] in [place]. She does not know all her medications as they administer them for her. She provided [place] paperwork. She is A/ox3, very [place], she uses 2 walking sticks to ambulate, she has NEW/ occasional dry, non productive cough, she is on RA, lungs diminished, no edema. 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 Daughter informs me while [...] Respiratory: P (more content not included)... Normal [facility] T4 Free SerPl-mCncon 025 Free T4 [Mass/Vol] 1.9 ng/dL High 0.9-1.7 [facility] Comment on above: Order Comment: Speci men Type: BLOOD SPECIMENOrdering Facility: [facility] Address: [address] [place] [address] Performed By: #### 2 4321-2, 3016-3 ####[facility] LABORATORYCLIA [id number] [place] [address] [place]#### 3024-7 ####[facility] LABCLIA [id number] [place] [address] [place] THERAPY NTon 12-25-2024 THERAPY NT HNO ID: [id number] Author: CAROLE HGUHES OT/L Service: Occupational Therapy Author Type: Occupational Therapist Type: Therapy (PT/OT/Speech/Resp) Filed: 12/25/2024 11:37 Note Text: Summary: OT Evaluation Occupational Therapy Evaluation Summary SERVICE DATE: 12/25/2024 SERVICE TIME: 1103 to 1127 ROOM: HH-2W-3031-2 OT 6 Clicks Score: 20 DISCHARGE RECOMMENDATIONS Home Recommended Discharge Disposition Comments: return to [facility] Anticipated Discharge Needs: Physical Assist at Home, [...] baseline with ADLs and functional mobility/transfers, very [place], follows commands appropriately, reports no questions/concerns for returning to [facility] PRECAUTIONS Bed/Chair Alarm, Fall Risk CURRENT HOSPITAL COURSE Patient presents with abdominal pain and Shortness of Breath, admitted for acute on chronic CHF Relevant Past Medical History: cardiomyopathy, goiter, osteopenia, pleural effusions, macular degeneration, tremors, HTN, LV thrombus, CHF, [place], insomnia HOME LIVING Patient Lives With: Facility Care ([facility]) Assistance Available: 24-Hour (has a necklace she [...] daily living (ADL) TREATMENT INTERVENTIONS Evaluation, Self Shelter Management (88915) Timed Code Treatment (minutes): 9 Skilled Treatment Time (minutes): 24 TRAINING AND EDUCATION PROVIDED Activity Adaptation/Press Breaker y Strategies, Adaptive Equipment/DME, Bed Mobility, Benefits of In-Hospital Mobility, Cognitive Skills, Command Following, Discharge Planning, Expected Functional Level, Functional Mobility Involving ADLs, Insight into Deficits, Lower Extremity Dressing, Memory/Attention, Orientation, Positioning, Role of Occupational Therapy, Safety/Judgment, Sitting Balance to Improve [place] with ADLs/Self-Care, Standing Balance to Improve [place] with ADLs/Self-Care, Transfer - Bed to Chair, [...] Belt Toilet/Commode S (more content not included)... Normal [facility] TSH SerPl-aCncon 12-25-2024 TSH Qn 0.326 m[IU]/L Normal 0.270-4.200 [facility] Comment on above: Order Comment: Speci men Type: BLOOD SPECIMENOrdering Facility: [facility] Address: [address] [place], [place] [address] Performed By: #### 2 4321-2, 3016-3 ####BAIRD LABORATORYCLIA [id number] [place] [address] [place]#### 3024-7 ####[facility] LABCLIA [id number] [place] [id number] [place] ALLIED HEALTHon 12-24-2024 ALLIED HEALTH HNO ID: [id number] Author: PETER RAHMAN RT(R) Service: Radiology Author Type: Auto Rental Supervisor Type: Allied Health Filed: 12/24/2024 13:03 Note [...] PATIENT PRESENTS WITH AN IMPLANTABLE OR ATTACHED SPEECH THERAPIST EARLY INTERVENTION: No RADIOLOGY DEPARTMENT: General X-ray: Exam(s) Completed: Chest X-Ray PERIPHERAL IV DATA: Not applicable SIGNED BY: RT Lary(R) December 24, 2024 1:03 PM Normal [facility] Basic metabolic 2000 panelon 12-24-2024 Anion gap [Moles/Vol] 12 mmol/L Normal 8-[address] [facility] Comment on above: Order Comment: Speci men Type: BLOOD SPECIMENOrdering Facility: [facility] Address: [address] [place] [address] Performed By: #### 3 3762-6, HSTNT, 20780-8, 3016-3, 38106-6 ####BAIRD LABORATORYCLIA [id number] [place] [address] [place] Calcium [Mass/Vol] 9.5 mg/dL Normal 8.5-10.2 [facility] Comment on above: Order Comment: Speci men Type: BLOOD SPECIMENOrdering Facility: [facility] Address: [address] [place] [address] Performed By: #### 3 3762-6, HSTNT, 56250-1, 3016-3, 62150-0 ####[facility] LABORATORYCLIA [id number] [place] [address] [place] Chloride [Moles/Vol] 101 mmol/L Normal 98-107 [facility] Comment on above: Order Comment: Speci men Type: BLOOD SPECIMENOrdering Facility: [facility] Address: [address] [place] [address] Performed By: #### 3 3762-6, HSTNT, , 3016-3, 22115-4 ####[facility] LABORATORYCLIA [id number] [address] STATES OF [facility] CO2 [Moles/Vol] 23 mmol/L Normal 22-30 [facility] Comment on above: Order Comment: Speci men Type: BLOOD SPECIMENOrdering Facility: [facility] Address: [address] [place] [address] Performed By: #### 3 3762-6, HSTNT, , 3016-3, 53750-7 ####[facility] LABORATORYCLIA [id number] [place] [address] [place] Creatinine [Mass/Vol] 0.87 mg/dL Normal 0.58-0.[address] [facility] Comment on above: Order Comment: Speci men Type: BLOOD SPECIMENOrdering Facility: [facility] Address: [address] [place] [address] Performed By: #### 3 3762-6, HSTNT, , 3016-3, 20821-5 ####BAIRD LABORATORYCLIA [id number] [address] [place] eGFRcr SerPlBld CKD-EPI 2020 64 mL/min/1.73m??? Normal >=60 [facility] Comment on above: Order Comment: Speci men Type: BLOOD SPECIMENOrdering Facility: [facility] Address: [address] [place] [address] Result Comment: Radha mated Glomerular Filtration Rate [...] GFR. Performed By: #### 3 3762-6, HSTNT, 81901-5, 3016-3, 23029-5 ####[facility] LABORATORYCLIA [id number] [place] [id number] [place] Glucose [Mass/Vol] 95 mg/dL Normal 74-99 [facility] Comment on above: Order Comment: Vita florez Type: BLOOD SPECIMENOrdering Facility: [facility] Address: [address] [place] [address] Result Comment: The [place] Diabetes Association (ADA) provides guidance for cutoff [...] Standards of Medical Care in Diabetes 2016, [place] Diabetes Association. Diabetes Care. 2016.39(Suppl 1). Performed By: #### 3 3762-6, HSTNT, 06170-0, 3016-3, 08689-7 ####[facility] LABORATORYCLIA [id number] [place] [id number] [place] Potassium [Moles/Vol] 5.1 mmol/L Normal 3.7-5.[address] [facility] Comment on above: Order Comment: Vita florez Type: BLOOD SPECIMENOrdering Facility: [facility] Address: [address] [place] [id number] Performed By: #### 3 3762-6, HSTNT, 66344-0, 3016-3, 37235-5 ####BAIRD LABORATORYCLIA [id number] [place], [place] [address] [place] [address] [place] [facility] Sodium [Moles/Vol] 136 mmol/L Normal 136-144 [facility] Comment on above: Order Comment: Speci men Type: BLOOD SPECIMENOrdering Facility: [facility] Address: [facility][note 3] [place] [address] Performed By: #### 3 3762-6, HSTNT, 87792-2, 3016-3, 96833-7 ####BA[facility] LABORATORYCLIA [id number] [place] [address] [place] Urea nitrogen [Mass/Vol] 24 mg/dL High 7-21 [facility] Comment on above: Order Comment: Speci men Type: BLOOD SPECIMENOrdering Facility: [facility] Address: [facility][note 3] [place] [address] Performed By: #### 3 3762-6, HSTNT, 45067-6, 3016-3, 94521-6 ####[facility] LABORATORYCLIA [id number] [address] [place] CBC W Auto Differential pane l (Bld)on 12-24-2024 Basophils (Bld) [#/Vol] 0.09 10*3/uL Normal <0.11 [facility] Comment on above: Order Comment: Speci men Type: BLOOD SPECIMENOrdering Facility: [facility] Address: [facility][note 3] [place] [address] Performed By: #### 5 7021-8 ####BAIRD LABORATORYCLIA [id number] [address] Basophils/100 WBC (Bld) 0.9 % Normal [facility] Comment on above: Order Comment: Speci men Type: BLOOD SPECIMENOrdering Facility: [facility] Address: [facility][note 3] [place] [address] Performed By: #### 5 7021-8 ####BAIRD LABORATORYCLIA [id number] [address] [place] Differential cell count method Nom (Bld) Auto Normal [facility] Comment on above: Order Comment: Speci men Type: BLOOD SPECIMENOrdering Facility: [facility] Address: [address] [place] [address] Performed By: #### 5 7021-8 ####BAIRD LABORATORYCLIA [id number] [place] [address] [place] Eosinophils (Bld) [#/Vol] 0.04 10*3/uL Normal <0.46 [facility] Comment on above: Order Comment: Speci men Type: BLOOD SPECIMENOrdering Facility: [facility] Address: [address] [place] [address] Performed By: #### 5 7021-8 ####BAIRD LABORATORYCLIA [id number] [address] Eosinophils/100 WBC (Bld) 0.4 % Normal [facility] Comment on above: Order Comment: Speci men Type: BLOOD SPECIMENOrdering Facility: [facility] Address: [address] [place] [address] Performed By: #### 5 7021-8 ####BAIRD LABORATORYCLIA [id number] [address] [place] Erythrocyte distribution width (RBC) [Ratio] 16.1 % High 11.5-15.0 [facility] Comment on above: Order Comment: Speci men Type: BLOOD SPECIMENOrdering Facility: [facility] Address: [address] [place] [address] Performed By: #### 5 7021-8 ####BAIRD LABORATORYCLIA [id number] [address] [place] Hematocrit (Bld) [Volume fraction] 42.0 % Normal 36.0-46.0 [facility] Comment on above: Order Comment: Speci men Type: BLOOD SPECIMENOrdering Facility: [facility] Address: [address] [place] [address] Performed By: #### 5 7021-8 ####BAIRD LABORATORYCLIA [id number] [place] [address] [place] Hemoglobin (Bld) [Mass/Vol] 14.0 g/dL Normal 11.5-15.5 [facility] Comment on above: Order Comment: Speci men Type: BLOOD SPECIMENOrdering Facility: [facility] Address: [address] [place] [address] Performed By: #### 5 7021-8 ####BA[facility] LABORATORYCLIA [id number] [place] [address] [place] Immature granulocytes (Bld) [#/Vol] 0.04 10*3/uL Normal <0.10 [facility] Comment on above: Order Comment: Speci men Type: BLOOD SPECIMENOrdering Facility: [facility] Address: [address] [place] [address] Performed By: #### 5 7021-8 ####BAIRD LABORATORYCLIA [id number] [address] [place] Immature granulocytes/100 WBC (Bld) 0.4 % Normal [facility] Comment on above: Order Comment: Speci men Type: BLOOD SPECIMENOrdering Facility: [facility] Address: [address] [place] [address] Performed By: #### 5 7021-8 ####BA[facility] LABORATORYCLIA [id number] [place] [address] [place] Lymphocytes (Bld) [#/Vol] 1.01 10*3/uL Normal 1.00-4.00 [facility] Comment on above: Order Comment: Speci men Type: BLOOD SPECIMENOrdering Facility: [facility] Address: [address] [place] [address] Performed By: #### 5 7021-8 ####BA[facility] LABORATORYCLIA [id number] [address] [place] Lymphocytes/100 WBC (Bld) 10.4 % Normal [facility] Comment on above: Order Comment: Speci men Type: BLOOD SPECIMENOrdering Facility: [facility] Address: [address] [place] [address] Performed By: #### 5 7021-8 ####BA[facility] LABORATORYCLIA [id number] [address] MCH (RBC) [Entitic mass] 30.0 pg Normal 26.0-34.0 [facility] Comment on above: Order Comment: Speci men Type: BLOOD SPECIMENOrdering Facility: [facility] Address: [address] [place] [address] Performed By: #### 5 7021-8 ####BAIRD LABORATORYCLIA [id number] [address] [place] MCHC (RBC) [Mass/Vol] 33.3 g/dL Normal 30.5-36.[address] [facility] Comment on above: Order Comment: Speci men Type: BLOOD SPECIMENOrdering Facility: [facility] Address: [address] [place] [address] Performed By: #### 5 7021-8 ####[facility] LABORATORYCLIA [id number] [address] MCV (RBC) [Entitic vol] 90.1 fL Normal 80.0-100.0 [facility] Comment on above: Order Comment: Speci men Type: BLOOD SPECIMENOrdering Facility: [facility] Address: [address] [place] [address] Performed By: #### 5 7021-8 ####BAIRD LABORATORYCLIA [id number] [address] [place] Monocytes (Bld) [#/Vol] 0.81 10*3/uL Normal <0.87 [facility] Comment on above: Order Comment: Speci men Type: BLOOD SPECIMENOrdering Facility: [facility] Address: [address] [place] [address] Performed By: #### 5 7021-8 ####BAIRD LABORATORYCLIA [id number] [address] Monocytes/100 WBC (Bld) 8.3 % Normal [facility] Comment on above: Order Comment: Speci men Type: BLOOD SPECIMENOrdering Facility: [facility] Address: [address] [place] [address] Performed By: #### 5 7021-8 ####BAIRD LABORATORYCLIA [id number] [place] [address] [place] Neutrophils (Bld) [#/Vol] 7.72 10*3/uL High 1.45-7.50 [facility] Comment on above: Order Comment: Speci men Type: BLOOD SPECIMENOrdering Facility: [facility] Address: [address] [place] [address] Performed By: #### 5 7021-8 ####BAIRD LABORATORYCLIA [id number] [place] [address] [place] Neutrophils/100 WBC (Bld) 79.6 % Normal [facility] Comment on above: Order Comment: Speci men Type: BLOOD SPECIMENOrdering Facility: [facility] Address: [address] [place] [address] Performed By: #### 5 7021-8 ####BAIRD LABORATORYCLIA [id number] [place] [address] [place] Nucleated RBC (Bld) [#/Vol] 10*3/uL Normal <0.01 [facility] Comment on above: Order Comment: Speci men Type: BLOOD SPECIMENOrdering Facility: [facility] Address: [address] [place] [address] Performed By: #### 5 7021-8 ####BAIRD LABORATORYCLIA [id number] [address] [place] Nucleated RBC/100 WBC (Bld) [Ratio] 0.0 /100 WBC Normal [facility] Comment on above: Order Comment: Speci men Type: BLOOD SPECIMENOrdering Facility: [facility] Address: [address] [place] [address] Performed By: #### 5 7021-8 ####BAIRD LABORATORYCLIA [id number] [place] [address] [place] Platelet mean volume (Bld) [Entitic vol] 10.4 fL Normal 9.0-12.7 [facility] Comment on above: Order Comment: Speci men Type: BLOOD SPECIMENOrdering Facility: [facility] Address: [address] [place] [address] Performed By: #### 5 7021-8 ####BAIRD LABORATORYCLIA [id number] [address] [place] Platelets (Bld) [#/Vol] 386 10*3/uL Normal 150-400 [facility] Comment on above: Order Comment: Speci men Type: BLOOD SPECIMENOrdering Facility: [facility] Address: [address] [place] [address] Performed By: #### 5 7021-8 ####BAIRD LABORATORYCLIA [id number] [place] [address] [facility] [place] RBC (Bld) [#/Vol] 4.66 10*6/uL Normal 3.90-5.20 [facility] Comment on above: Order Comment: Speci men Type: BLOOD SPECIMENOrdering Facility: [facility] Address: [address] [place] [address] Performed By: #### 5 7021-8 ####BAIRD LABORATORYCLIA [id number] [address] WBC (Bld) [#/Vol] 9.71 10*3/uL Normal 3.70-11.00 [facility] Comment on above: Order Comment: Speci men Type: BLOOD SPECIMENOrdering Facility: [facility] Address: [address] [place] [address] Performed By: #### 5 7021-8 ####BAIRD LABORATORYCLIA [id number] [address] ECG COMPLETEon 12-24-2024 ECG COMPLETE Ventricular Rate : 9 5 BPM Atrial Rate : 95 BPM P-R Interval : 162 ms QRS Duration : 138 ms Q-T Interval : 396 ms QTC Calculation(Bazett) : 497 ms Calculated P Standish : -5 degrees Calculated R Standish : -33 degrees Calculated T Standish : 147 degrees NORMAL SINUS RHYTHM LEFT AXIS DEVIATION LEFT VENTRICULAR HYPERTROPHY WITH QRS WIDENING AND REPOLARIZATION ABNORMALITY ( R in aVL , [place] product ) CANNOT RULE OUT SEPTAL INFARCT , AGE UNDETERMINED ABNORMAL ECG NO PREVIOUS ECGS AVAILABLE Confirmed by ROJAS MATTHEWS MD ([id number]) on 12/25/2024 5:11:53 PM NAME : NA GOOD PID : [id number] : 1935 Gender : Female Race : ORD : [id number] Procedure Date : Dec 24 2024 19:25:38 Edit Date : Dec 25 2024 17:11:57 Diagnosis: NORMAL SINUS RHYTHM LEFT AXIS DEVIATION LEFT VENTRICULAR HYPERTROPHY WITH QRS WIDENING AND REPOLARIZATION ABNORMALITY ( R in aVL , Db product ) CANNOT RULE OUT SEPTAL INFARCT , AGE UNDETERMINED ABNORMAL ECG NO PREVIOUS ECGS AVAILABLE Confirmed by ROJAS MATTHEWS MD ([id number]) on 12/25/2024 5:11:53 PM Test Reason : Shortness of Breath Location : 5 : 3S 0311 Overread By : ROJAS MATTHEWS MD Edited By : ROJAS MATTHEWS MD Referred By : , Acquired by : [id number], [facility] ED PROV NOTEon 12-24-2024 ED PROV NOTE HNO ID: [id number] Author: OSCAR LIZARRAGA DO Service: Emergency Medicine [...] by: EMS (more content not included)... Normal [facility] Gas and Carbon monoxide pane l (BldV)on 12-24-2024 Base excess Calc (BldV) [Moles/Vol] 1 mmol/L Normal 0-2 [facility] Comment on above: Order Comment: Vita florez Type: VENOUS BLOOD SPECIMENOrdering Facility: [facility] Address: [address] [id number] Performed By: #### 2 4344-4 ####[facility] [id number] [facility]OS[facility] RESPIRATORY [id number] [place] [phone] Calcium.ionized (Bld) [Mass/Vol] 1.17 mmol/L Normal 1.08-1.30 [facility] Comment on above: Order Comment: Vita florez Type: VENOUS BLOOD SPECIMENOrdering Facility: [facility] Address: [address] [place] [address] Performed By: #### 2 4344-4 ####[facility] [id number] [facility]AT[facility] [id number] [place] [phone] Carboxyhemoglobin (BldV) [Mass fraction] 1.3 % Normal 0.0-2.0 [facility] Comment on above: Order Comment: Speci men Type: VENOUS BLOOD SPECIMENOrdering Facility: [facility] Address: [address] [place] [address] Result Comment: Carb oxyhemoglobin Reference Range for Smokers: 2.0-8.0% Performed By: #### 2 4344-4 ####BAIRD RESPIRATORYCLIA [id number] [facility] [id number] [address] [address] CO2 (BldV) [Partial pressure] 40 mm[Hg] Low 42-55 [facility] Comment on above: Order Comment: Speci men Type: VENOUS BLOOD SPECIMENOrdering Facility: [facility] Address: [facility] [id number] Performed By: #### 2 4344-4 ####[facility] RESPIRATORYCLIA [id number] [facility] [id number] [address] [address] CO2 adjusted to patient's actual temperature (BldV) [Partial pressure] Normal [facility] Comment on above: Order Comment: Speci men Type: VENOUS BLOOD SPECIMENOrdering Facility: [facility] Address: [address] [place] [address] Performed By: #### 2 4344-4 ####BA[facility] RESPIRATORYCLIA [id number] [facility] [id number] [address] [address] HCO3 (Bld) [Moles/Vol] 25 mmol/L Normal 24-28 [facility] Comment on above: Order Comment: Speci men Type: VENOUS BLOOD SPECIMENOrdering Facility: [facility] Address: [address] [place] [address] Performed By: #### 2 4344-4 ####BA[facility] RESPIRATORYCLIA [id number] [facility] [id number] [address] [address] Hemoglobin (Bld) [Mass/Vol] 13.8 g/dL Normal 11.5-15.5 [facility] Comment on above: Order Comment: Speci men Type: VENOUS BLOOD SPECIMENOrdering Facility: [facility] Address: [address] [place] [address] Performed By: #### 2 4344-4 ####BA[facility] RESPIRATORYCLIA [id number] [facility] [id number] [address] [address] Lactate [Moles/Vol] 2.2 mmol/L Normal 0.5-2.2 [facility] Comment on above: Order Comment: Speci men Type: VENOUS BLOOD SPECIMENOrdering Facility: [facility] Address: [address] [place] [address] Performed By: #### 2 4344-4 ####[facility] RESPIRATORYIA [id number] [facility] [id number] [address] [address] Methemoglobin (Bld) [Mass fraction] % Normal 0.0-1.5 [facility] Comment on above: Order Comment: Speci men Type: VENOUS BLOOD SPECIMENOrdering Facility: [facility] Address: [address] [place] [address] Performed By: #### 2 4344-4 ####[facility] [id number] [facility]OS[facility] [id number] [address] [address] O2 THERAPY RA=[facility] Comment on above: Order Comment: Speci men Type: VENOUS BLOOD SPECIMENOrdering Facility: [facility] Address: [address] [place] [address] Performed By: #### 2 4344-4 ####[facility] [id number] [facility] [id number] [address] [address] Oxygen (BldV) [Partial pressure] mm[Hg] Low 35-45 [facility] Comment on above: Order Comment: Speci men Type: VENOUS BLOOD SPECIMENOrdering Facility: [facility] Address: [address] [place] [address] Performed By: #### 2 4344-4 ####[facility] [id number] [facility] RESPIRATORY [id number] [address] [address] Oxygen adjusted to patient's actual temperature (BldV) [Partial pressure] Normal [facility] Comment on above: Order Comment: Speci men Type: VENOUS BLOOD SPECIMENOrdering Facility: [facility] Address: [address] [place] [address] Performed By: #### 2 4344-4 ####[facility] RESPIRATORYCLIA [id number] [facility]OS[facility] RES[facility]AT[facility] [id number] [address] [address] Oxygen saturation in Venous blood 53 % Low 60-85 [facility] Comment on above: Order Comment: Speci men Type: VENOUS BLOOD SPECIMENOrdering Facility: [facility] Address: [address] [place] [address] Performed By: #### 2 4344-4 ####BAIRD RESPIRATORYIA [id number] [facility]OS[facility] RESPIRAT[facility] [id number] [address] [address] Oxyhemoglobin (BldV) [Mass fraction] 52 % Low 60-85 [facility] Comment on above: Order Comment: Speci men Type: VENOUS BLOOD SPECIMENOrdering Facility: [facility] Address: [address] [place] [address] Performed By: #### 2 4344-4 ####BAIRD RESPIRATORYIA [id number] [facility]OS[facility] [id number] [address] [address] pH (BldV) 7.41 [pH] Normal 7.32-7.42 [facility] Comment on above: Order Comment: Speci men Type: VENOUS BLOOD SPECIMENOrdering Facility: [facility] Address: [address] [place] [address] Performed By: #### 2 4344-4 ####BAIRD RESPIRATORYIA [id number] [facility]OS[facility] RES[facility]ATORY [id number] [address] [address] pH adjusted to patient's actual temperature (BldV) Normal [facility] Comment on above: Order Comment: Speci men Type: VENOUS BLOOD SPECIMENOrdering Facility: [facility] Address: [address] [place] [address] Performed By: #### 2 4344-4 ####[facility]ORY[facility] [id number] [facility]OS[facility] RESPIRATORY [id number] [address] [address] Potassium [Moles/Vol] 5.4 mmol/L High 3.5-5.[address] [facility] Comment on above: Order Comment: Speci men Type: VENOUS BLOOD SPECIMENOrdering Facility: [facility] Address: [address] [place] [address] [place] [address] Performed By: #### 2 4344-4 ####BAIRD RESPIRATORYCLIA [id number] [facility]IR[facility] [id number] [address] [address] HIGH SENSITIVITY TROPONIN To n 12-24-2024 Troponin T.cardiac High sensitivity method [Mass/Vol] 33 ng/L High <12 [facility] Comment on above: Order Comment: Speci men Type: BLOOD SPECIMENOrdering Facility: [facility] Address: [address] [place] [address] Performed By: #### 3 3762-6, HSTNT, 84488-0, 3016-3, 74000-7 ####[facility] LABORATORYCLIA [id number] [place] [address] [place] Magnesium SerPl-mCncon 12-24 Magnesium [Mass/Vol] 2.3 mg/dL Normal 1.7-2.3 [facility] Comment on above: Order Comment: Spec men Type: BLOOD SPECIMENOrdering Facility: [facility] Address: [address] [place] [address] Performed By: #### 3 3762-6, HSTNT, 96006-4, 3016-3, 39451-5 ####[facility] LABORATORYCLIA [id number] [place] [address] [place] NT-proBNP SerPl-mCncon 12-24 Natriuretic peptide.B prohormone N-Terminal [Mass/Vol] 27038 pg/mL High <450 [facility] Comment on above: Order Comment: Spec men Type: BLOOD SPECIMENOrdering Facility: [facility] Address: [address] [place] [address] Performed By: #### 3 3762-6, HSTNT, 85756-2, 3016-3, 44492-1 ####[facility] LABORATORYCLIA [id number] [place] [id number] [place] TSH SerPl-aCncon 12-24-2024 TSH Qn 0.465 m[IU]/L Normal 0.270-4.200 [facility] Comment on above: Order Comment: Speci men Type: BLOOD SPECIMENOrdering Facility: [facility] Address: [address] [id number] Performed By: #### 3 3762-6, HSTNT, 19108-6, 3016-3, 71167-7 ####[facility] LABORATORYCLIA [id number] [place] [address] [facility] [place] XR CHEST 2V FRONTAL/LATon XR [...] pulmonary edema. Superimposed infection cannot be excluded. 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, [address] HGB Normal 12.0-15.0 [facility] Comment on above: Order Comment: 546.1 Result Comment: LABS WERE DONE 12/09/24 DOES NOT NEED REPEATED PER NURSE Performed By: #### L 100.0500, L500.4050 #### [facility] [address] [place], [address] MCH Normal 27.0-32.0 [facility] Comment on above: Order Comment: 546.1 Result Comment: LABS WERE DONE 12/09/24 DOES NOT NEED REPEATED PER NURSE Performed By: #### L 100.0500, L500.4050 #### [facility] [address] [place], [address] MCHC Normal 32-36 [facility] Comment on above: Order Comment: 546.1 Result Comment: LABS WERE DONE 12/09/24 DOES NOT NEED REPEATED PER NURSE Performed By: #### L 100.0500, L500.4050 #### [facility] [address] [place], [address] MCV Normal 81-99 [facility] Comment on above: Order Comment: 546.1 Result Comment: LABS WERE DONE 12/09/24 DOES NOT NEED REPEATED PER NURSE Performed By: #### L 100.0500, L500.4050 #### [facility] [address] [place], [address] PLT Normal 150-450 [facility] Comment on above: Order Comment: 546.1 Result Comment: LABS WERE DONE 12/09/24 DOES NOT NEED REPEATED PER NURSE Performed By: #### L 100.0500, L500.4050 #### [facility] [address] [place], [address] RBC Normal 4.2-5.4 [facility] Comment on above: Order Comment: 546.1 Result Comment: LABS WERE DONE 12/09/24 DOES NOT NEED REPEATED PER NURSE Performed By: #### L 100.0500, L500.4050 #### [facility] [address] [place], [address] RDW CV Normal 11.6-14.6 [facility] Comment on above: Order Comment: 546.1 Result Comment: LABS WERE DONE 12/09/24 DOES NOT NEED REPEATED PER NURSE Performed By: #### L 100.0500, L500.4050 #### [facility] [address] [place], [address] RDW SD Normal 35.1-43.9 [facility] Comment on above: Order Comment: 546.1 Result Comment: LABS WERE DONE 12/09/24 DOES NOT NEED REPEATED PER NURSE Performed By: #### L 100.0500, L500.4050 #### [facility] [address] [place], [address] WBC Normal 4.4-11.0 [facility] Comment on above: Order Comment: 546.1 Result Comment: LABS WERE DONE 12/09/24 DOES NOT NEED REPEATED PER NURSE Performed By: #### L 100.0500, L500.4050 #### [facility] [address] [place], [address] Comprehensive Metabolic Prof ilon 12-11-2024 ALB Normal 3.4-4.8 [facility] Comment on above: Order Comment: 546.1 Result Comment: LABS WERE DONE 12/09/24 DOES NOT NEED REPEATED PER NURSE Performed By: #### L 100.0500, L500.4050 #### [facility] [address] [place], [address] ALK PHOS Normal 35-104 [facility] Comment on above: Order Comment: 546.1 Result Comment: LABS WERE DONE 12/09/24 DOES NOT NEED REPEATED PER NURSE Performed By: #### L 100.0500, L500.4050 #### [facility] [address] [place], [address] ALT Normal <=34 [facility] Comment on above: Order Comment: 546.1 Result Comment: LABS WERE DONE 12/09/24 DOES NOT NEED REPEATED PER NURSE Performed By: #### L 100.0500, L500.4050 #### [facility] [address] [place], [address] AST Normal <=31 [facility] Comment on above: Order Comment: 546.1 Result Comment: LABS WERE DONE 12/09/24 DOES NOT NEED REPEATED PER NURSE Performed By: #### L 100.0500, L500.4050 #### [facility] [address] [place], [address] BUN Normal 4-19 [facility] Comment on above: Order Comment: 546.1 Result Comment: LABS WERE DONE 12/09/24 DOES NOT NEED REPEATED PER NURSE Performed By: #### L 100.0500, L500.4050 #### [facility] [address] [place], [address] BUN/CRE Normal 10-20 [facility] Comment on above: Order Comment: 546.1 Result Comment: LABS WERE DONE 12/09/24 DOES NOT NEED REPEATED PER NURSE Performed By: #### L 100.0500, L500.4050 #### [facility] [address] [place], [address] Calcium Normal 7.6-11.0 [facility] Comment on above: Order Comment: 546.1 Result Comment: LABS WERE DONE 12/09/24 DOES NOT NEED REPEATED PER NURSE Performed By: #### L 100.0500, L500.4050 #### [facility] [address] [place], [address] CL Normal 98-108 [facility] Comment on above: Order Comment: 546.1 Result Comment: LABS WERE DONE 12/09/24 DOES NOT NEED REPEATED PER NURSE Performed By: #### L 100.0500, L500.4050 #### [facility] [address] [place], [address] CO2 Normal 21.0-32.0 [facility] Comment on above: Order Comment: 546.1 Result Comment: LABS WERE DONE 12/09/24 DOES NOT NEED REPEATED PER NURSE Performed By: #### L 100.0500, L500.4050 #### [facility] [address] [place], [address] CREAT,SERUM Normal 0.70-1.20 [facility] Comment on above: Order Comment: 546.1 Result Comment: LABS WERE DONE 12/09/24 DOES NOT NEED REPEATED PER NURSE Performed By: #### L 100.0500, L500.4050 #### [facility] [address] [place], [address] eGFR Normal >60 [facility] Comment on above: Order Comment: 546.1 Result Comment: LABS WERE DONE 12/09/24 DOES NOT NEED REPEATED PER NURSE Performed By: #### L 100.0500, L500.4050 #### [facility] [address] [place], [address] GAP Normal 5-15 [facility] Comment on above: Order Comment: 546.1 Result Comment: LABS WERE DONE 12/09/24 DOES NOT NEED REPEATED PER NURSE Performed By: #### L 100.0500, L500.4050 #### [facility] [address] [place], [address] GLU Normal 70-99 [facility] Comment on above: Order Comment: 546.1 Result Comment: LABS WERE DONE 12/09/24 DOES NOT NEED REPEATED PER NURSE Performed By: #### L 100.0500, L500.4050 #### [facility] [address] [place], [address] Potassium Normal 3.3-5.1 [facility] Comment on above: Order Comment: 546.1 Result Comment: LABS WERE DONE 12/09/24 DOES NOT NEED REPEATED PER NURSE Performed By: #### L 100.0500, L500.4050 #### [facility] [address] [place], [address] T BILI Normal 0.00-1.30 [facility] Comment on above: Order Comment: 546.1 Result Comment: LABS WERE DONE 12/09/24 DOES NOT NEED REPEATED PER NURSE Performed By: #### L 100.0500, L500.4050 #### [facility] [address] [place], [address] T PROT Normal 5.9-8.4 [facility] Comment on above: Order Comment: 546.1 Result Comment: LABS WERE DONE 12/09/24 DOES NOT NEED REPEATED PER NURSE Performed By: #### L 100.0500, L500.4050 #### [facility] [address] [place], [address] Comprehensive Metabolic Profil Normal 133-145 [facility] Comment on above: Order Comment: 546.1 Result Comment: LABS WERE DONE 12/09/24 DOES NOT NEED REPEATED PER NURSE Performed By: #### L 100.0500, L500.4050 #### [facility] [address] [place], [address] Basic Metabolic Profile (BMP )on 12-09-2024 BUN/CRE 21.8 RATIO High 10-20 [facility] Comment on above: Order Comment: 546.1 Performed By: #### L 500.2500, L100.0500 #### [facility] [address] [place], [address] Calcium [Mass/Vol] 8.8 mg/dL Normal 7.6-11.0 [facility] Comment on above: Order Comment: 546.1 Performed By: #### L 500.2500, L100.0500 #### [facility] [address] [place], [address] Chloride [Moles/Vol] 101 mmol/L Normal 98-108 [facility] Comment on above: Order Comment: 546.1 Performed By: #### L 500.2500, L100.0500 #### [facility] [address] [place], [address] CO2 [Moles/Vol] 23.2 mmol/L Normal 21.0-32.0 [facility] Comment on above: Order Comment: 546.1 Performed By: #### L 500.2500, L100.0500 #### [facility] [address] [place], [address] Creatinine [Mass/Vol] 0.86 mg/dL Normal 0.70-1.20 [facility] Comment on above: Order Comment: 546.1 Performed By: #### L 500.2500, L100.0500 #### [facility] [address] [place], [address] GAP 11 Normal 5-15 [facility] Comment on above: Order Comment: 546.1 Performed By: #### L 500.2500, L100.0500 #### [facility] [address] [place], [address] GFR/1.73 sq M.predicted among non-blacks MDRD (S/P/Bld) [Vol rate/Area] 65 mL/min/{1.73_m2} Normal >60 [facility] Comment on above: Order Comment: 546.1 Result Comment: mL/m in/1.73m2 CKD-EPI Creatinine Equation (2020) Performed By: #### L 500.2500, L100.0500 #### [facility] [address] [place], [address] Glucose [Mass/Vol] 78 mg/dL Normal 70-99 [facility] Comment on above: Order Comment: 546.1 Performed By: #### L 500.2500, L100.0500 #### [facility] [address] [place], [address] Potassium [Moles/Vol] 4.3 mmol/L Normal 3.3-5.1 [facility] Comment on above: Order Comment: 546.1 Performed By: #### L 500.2500, L100.0500 #### [facility] [address] [place], [address] Sodium [Moles/Vol] 135 mmol/L Normal 133-145 [facility] Comment on above: Order Comment: 546.1 Performed By: #### L 500.2500, L100.0500 #### [facility] [address] [place], [address] Urea nitrogen [Mass/Vol] 19 mg/dL Normal 4-19 [facility] Comment on above: Order Comment: 546.1 Performed By: #### L 500.2500, L100.0500 #### [facility] [address] [place], [address] CBC-Complete Blood Cnt No Di ffon 12-09-2024 Erythrocyte distribution width (RBC) [Ratio] 16.4 % High 11.6-14.6 [facility] Comment on above: Order Comment: 546.1 Performed By: #### L 500.2500, L100.0500 #### [facility] [address] [place], [address] Hematocrit (Bld) [Volume fraction] 37.6 % Normal 37-47 [facility] Comment on above: Order Comment: 546.1 Performed By: #### L 500.2500, L100.0500 #### [facility] [address] [place], [address] Hemoglobin (Bld) [Mass/Vol] 12.5 g/dL Normal 12.0-15.0 [facility] Comment on above: Order Comment: 546.1 Performed By: #### L 500.2500, L100.0500 #### [facility] [address] [place], [address] MCH (RBC) [Entitic mass] 29.8 pg Normal 27.0-32.0 [facility] Comment on above: Order Comment: 546.1 Performed By: #### L 500.2500, L100.0500 #### [facility] [address] [place], [address] MCHC (RBC) [Mass/Vol] 33.2 g/dL Normal 32-36 [facility] Comment on above: Order Comment: 546.1 Performed By: #### L 500.2500, L100.0500 #### [facility] [address] [place], [address] MCV (RBC) [Entitic vol] 89.5 fL Normal 81-99 [facility] Comment on above: Order Comment: 546.1 Performed By: #### L 500.2500, L100.0500 #### [facility] [address] [place], [address] Platelet mean volume (Bld) [Entitic vol] 10.5 fL Normal 6.2-12.0 [facility] Comment on above: Order Comment: 546.1 Performed By: #### L 500.2500, L100.0500 #### [facility] [address] [place], [address] Platelets (Bld) [#/Vol] 345 10*3/uL Normal 150-450 [facility] Comment on above: Order Comment: 546.1 Performed By: #### L 500.2500, L100.0500 #### [facility] [address] [place], [address] RBC (Bld) [#/Vol] 4.20 10*6/uL Normal 4.2-5.4 [facility] Comment on above: Order Comment: 546.1 Performed By: #### L 500.2500, L100.0500 #### [facility] [address] [place], [address] RDW SD 53.6 fl High 35.1-43.9 [facility] Comment on above: Order Comment: 546.1 Performed By: #### L 500.2500, L100.0500 #### [facility] [address] [place], [address] WBC (Bld) [#/Vol] 9.3 10*3/uL Normal 4.4-11.0 [facility] Comment on above: Order Comment: 546.1 Performed By: #### L 500.2500, L100.0500 #### [facility] [address] [place], [address] CBC-Complete Blood Cnt No Di ffon 09-18-2024 Erythrocyte distribution width (RBC) [Ratio] 15.3 % High 11.6-14.6 [facility] Comment on above: Order Comment: 546 Performed By: #### L 500.4100, L506.1001, L100.0500, L501.9985, L500.4050 #### [facility] [address] [place], [address] Hematocrit (Bld) [Volume fraction] 42.2 % Normal 37-47 [facility] Comment on above: Order Comment: 546 Performed By: #### L 500.4100, L506.1001, L100.0500, L501.9985, L500.4050 #### [facility] [address] [place], [address] Hemoglobin (Bld) [Mass/Vol] 13.9 g/dL Normal 12.0-15.0 [facility] Comment on above: Order Comment: 546 Performed By: #### L 500.4100, L506.1001, L100.0500, L501.9985, L500.4050 #### [facility] [address] [place], [address] MCH (RBC) [Entitic mass] 30.0 pg Normal 27.0-32.0 [facility] Comment on above: Order Comment: 546 Performed By: #### L 500.4100, L506.1001, L100.0500, L501.9985, L500.4050 #### [facility] [address] [place], [address] MCHC (RBC) [Mass/Vol] 32.9 g/dL Normal 32-36 [facility] Comment on above: Order Comment: 546 Performed By: #### L 500.4100, L506.1001, L100.0500, L501.9985, L500.4050 #### [facility] [address] [place], [address] MCV (RBC) [Entitic vol] 90.9 fL Normal 81-99 [facility] Comment on above: Order Comment: 546 Performed By: #### L 500.4100, L506.1001, L100.0500, L501.9985, L500.4050 #### [facility] [address] [place], [address] Platelet mean volume (Bld) [Entitic vol] 10.8 fL Normal 6.2-12.0 [facility] Comment on above: Order Comment: 546 Performed By: #### L 500.4100, L506.1001, L100.0500, L501.9985, L500.4050 #### [facility] [address] [place], [address] Platelets (Bld) [#/Vol] 337 10*3/uL Normal 150-450 [facility] Comment on above: Order Comment: 546 Performed By: #### L 500.4100, L506.1001, L100.0500, L501.9985, L500.4050 #### [facility] [address] [place], [address] RBC (Bld) [#/Vol] 4.64 10*6/uL Normal 4.2-5.4 [facility] Comment on above: Order Comment: 546 Performed By: #### L 500.4100, L506.1001, L100.0500, L501.9985, L500.4050 #### [facility] [address] [place], [address] RDW SD 50.5 fl High 35.1-43.9 [facility] Comment on above: Order Comment: 546 Performed By: #### L 500.4100, L506.1001, L100.0500, L501.9985, L500.4050 #### [facility] [address] [place], [address] WBC (Bld) [#/Vol] 9.6 10*3/uL Normal 4.4-11.0 [facility] Comment on above: Order Comment: 546 Performed By: #### L 500.4100, L506.1001, L100.0500, L501.9985, L500.4050 #### [facility] [address] [place], [address] Comprehensive Metabolic [facility] 09-18-2024 Albumin [Mass/Vol] 3.4 g/dL Normal 3.4-4.8 [facility] Comment on above: Order Comment: 546 Performed By: #### L 500.4100, L506.1001, L100.0500, L501.9985, L500.4050 #### [facility] [address] [place], [address] Albumin/Globulin [Mass ratio] 1.4 {ratio} Normal 0.9-2.4 [facility] Comment on above: Order Comment: 546 Performed By: #### L 500.4100, L506.1001, L100.0500, L501.9985, L500.4050 #### [facility] [address] [place], [address] ALK PHOS 43 U/L Normal 35-104 [facility] Comment on above: Order Comment: 546 Performed By: #### L 500.4100, L506.1001, L100.0500, L501.9985, L500.4050 #### [facility] [address] [place], [address] ALT [Catalytic activity/Vol] 9 U/L Normal <=34 [facility] Comment on above: Order Comment: 546 Performed By: #### L 500.4100, L506.1001, L100.0500, L501.9985, L500.4050 #### [facility] [address] [place], [address] AST [Catalytic activity/Vol] 20 U/L Normal <=31 [facility] Comment on above: Order Comment: 546 Performed By: #### L 500.4100, L506.1001, L100.0500, L501.9985, L500.4050 #### [facility] [address] [place], [address] Bilirubin [Mass/Vol] 0.37 mg/dL Normal 0.00-1.30 [facility] Comment on above: Order Comment: 546 Performed By: #### L 500.4100, L506.1001, L100.0500, L501.9985, L500.4050 #### [facility] [address] [place], [address] BUN/CRE 27.9 RATIO High 10-20 [facility] Comment on above: Order Comment: 546 Performed By: #### L 500.4100, L506.1001, L100.0500, L501.9985, L500.4050 #### [facility] [address] [place], [address] Calcium [Mass/Vol] 8.8 mg/dL Normal 7.6-11.0 [facility] Comment on above: Order Comment: 546 Performed By: #### L 500.4100, L506.1001, L100.0500, L501.9985, L500.4050 #### [facility] [address] [place], [address] Chloride [Moles/Vol] 108 mmol/L Normal 98-108 [facility] Comment on above: Order Comment: 546 Performed By: #### L 500.4100, L506.1001, L100.0500, L501.9985, L500.4050 #### [facility] [address] [place], [address] CO2 [Moles/Vol] 23.5 mmol/L Normal 21.0-32.0 [facility] Comment on above: Order Comment: 546 Performed By: #### L 500.4100, L506.1001, L100.0500, L501.9985, L500.4050 #### [facility] [address] [place], [address] Creatinine [Mass/Vol] 0.82 mg/dL Normal 0.70-1.20 [facility] Comment on above: Order Comment: 546 Performed By: #### L 500.4100, L506.1001, L100.0500, L501.9985, L500.4050 #### [facility] [address] [place], [address] GAP 10 Normal 5-15 [facility] Comment on above: Order Comment: 546 Performed By: #### L 500.4100, L506.1001, L100.0500, L501.9985, L500.4050 #### [facility] [address] [place], [address] GFR/1.73 sq M.predicted among non-blacks MDRD (S/P/Bld) [Vol rate/Area] 69 mL/min/{1.73_m2} Normal >60 [facility] Comment on above: Order Comment: 546 Result Comment: mL/m in/1.73m2 CKD-EPI Creatinine Equation (2020) Performed By: #### L 500.4100, L506.1001, L100.0500, L501.9985, L500.4050 #### [facility] [address] [place], [address] Globulin (S) [Mass/Vol] 2.5 g/dL Normal 2.2-4.2 [facility] Comment on above: Order Comment: 546 Performed By: #### L 500.4100, L506.1001, L100.0500, L501.9985, L500.4050 #### [facility] [address] [place], [address] Glucose [Mass/Vol] 88 mg/dL Normal 70-99 [facility] Comment on above: Order Comment: 546 Performed By: #### L 500.4100, L506.1001, L100.0500, L501.9985, L500.4050 #### [facility] [address] [place], [address] Potassium [Moles/Vol] 4.1 mmol/L Normal 3.3-5.1 [facility] Comment on above: Order Comment: 546 Performed By: #### L 500.4100, L506.1001, L100.0500, L501.9985, L500.4050 #### [facility] [address] [place], [address] Sodium [Moles/Vol] 141 mmol/L Normal 133-145 [facility] Comment on above: Order Comment: 546 Performed By: #### L 500.4100, L506.1001, L100.0500, L501.9985, L500.4050 #### [facility] [address] [place], [address] T PROT 5.8 g/dL Low 5.9-8.4 [facility] Comment on above: Order Comment: 546 Performed By: #### L 500.4100, L506.1001, L100.0500, L501.9985, L500.4050 #### [facility] [address] [place], [address] Urea nitrogen [Mass/Vol] 23 mg/dL High 4-19 [facility] Comment on above: Order Comment: 546 Performed By: #### L 500.4100, L506.1001, L100.0500, L501.9985, L500.4050 #### [facility] [address] [place], [address] Hemoglobin A1con 09-18-2024 HbA1c (Bld) [Mass fraction] 5.5 % Normal <=5.6 [facility] Comment on above: Order Comment: 546 Result Comment: Norm al < 5.7 % Prediabetic 5.7 - 6.4 % Diabetic >or= 6.5 % Please note range changes. Performed By: #### L 500.4100, L506.1001, L100.0500, L501.9985, L500.4050 #### [facility] [address] [place], [address] Lipid Profileon 09-18-2024 CHOL:HDL 2.43 Normal [facility] Comment on above: Order Comment: 546 Performed By: #### L 500.4100, L506.1001, L100.0500, L501.9985, L500.4050 #### [facility] [address] [place], [address] Cholesterol [Mass/Vol] 136 mg/dL Normal <=200 [facility] Comment on above: Order Comment: 546 Result Comment: Chol esterol level, Desirable <200 mg/dL Borderline high cholesterol 200-239 mg/dL High cholesterol >=240 mg/dL Recommendations of the NCEP Adult Treatment Panel for the following risk-cutoff thresholds for the [place] population. Performed By: #### L 500.4100, L506.1001, L100.0500, L501.9985, L500.4050 #### [facility] [address] [place], [address] Cholesterol in HDL [Mass/Vol] 56 mg/dL Normal [facility] Comment on above: Order Comment: 546 Result Comment: Lyric onal Cholesterol Education Program (NCEP) guidelines: <40 mg/dL: Low HDL-cholesterol (major risk factor for CHD) >= 60 mg/dL: High HDL-cholesterol (negative risk factor for CHD) HDL-cholesterol is affected by a number of factors, e.g. smoking, exercise, hormones, sex and age. Performed By: #### L 500.4100, L506.1001, L100.0500, L501.9985, L500.4050 #### [facility] [address] [place], [address] Cholesterol in LDL [Mass/Vol] 67 mg/dL Normal [facility] Comment on above: Order Comment: 546 Result Comment: Bord oeivzb=546-455 mg/dL Higher Pqjk=936 mg/dL or greater Performed By: #### L 500.4100, L506.1001, L100.0500, L501.9985, L500.4050 #### [facility] [address] [place], [address] Cholesterol in VLDL [Mass/Vol] 14 mg/dL Normal 5-40 [facility] Comment on above: Order Comment: 546 Performed By: #### L 500.4100, L506.1001, L100.0500, L501.9985, L500.4050 #### [facility] [address] [place], [address] Triglyceride [Mass/Vol] 68 mg/dL Normal [facility] Comment on above: Order Comment: 546 Result Comment: The drugs N-Acetylcysteine and Metamizole may falsely depress this assay. Normal range: <150 mg/dL Borderline High: 150-199 mg/dL High: 200-499 mg/dL Very High: >500 mg/dL Performed By: #### L 500.4100, L506.1001, L100.0500, L501.9985, L500.4050 #### [facility] [address] [place], [address] Vitamin D,25 Hydroxyon 09-18 Vitamin D 25-OH 52.7 ng/mL Normal 30-100 [facility] Comment on above: Order Comment: 546 Result Comment: Alicia min D Status Deficiency: <20 ng/mL (50nmol/L) Insufficiency: 20-30 ng/mL (50-75 nmol/L) Sufficiency: 30-100 ng/mL (75-250 nmol/L) Toxicity: >100 ng/mL (>250 nmol/L) Performed By: #### L 500.4100, L506.1001, L100.0500, L501.9985, L500.4050 #### [facility] [address] [place], [address] US DOPPLER CAROTIDon 020 US DOPPLER CAROTID Patient Info Name: NA GOOD Age: 84 years : 1935 Gender: Female Exam Date: 02/03/2020 2:02 PM Site Location: [facility] Patient Status: Outpatient Coil Machine Operator: Tatyana Olmos, VILMA, RDMS (AB), RVT Referring Physician: RUBIN CHIRINOS ; Indications R09.89 - Other specified symptoms and signs involving the circulatory and respiratory systems Procedure Description 84901 Duplex examination using B-mode, color and spectral [...] HAM Morris DO on 02/03/2020 03:27 PM [facility] US DOPPLER CAROTID Patient Info Name: NA GOOD Age: 84 years : 1935 Gender: Female Exam Date: 02/03/2020 2:02 PM Site Location: [facility] Patient Status: Outpatient Coil Machine Operator: Tatyana Olmos, BS, RDMS (AB), RVT Referring Physician: RUBIN CHIRINOS ; Indications R09.89 - Other specified symptoms and signs involving the circulatory and respiratory systems Procedure Description 97691 Duplex examination using B-mode, color and spectral [...] on SunFeb 03, 2020 3:27:40 PM EDT Normal [facility] Patient Info Name: NA GOOD Age: 84 years : 1935 Gender: Female Exam Date: 02/03/2020 2:02 PM Site Location: [facility] Patient Status: Outpatient Coil Machine Operator: Tatyana Olmos, VILMA, RDMS (AB), RVT Referring Physician: RUBIN CHIRINOS ; Indications R09.89 - Other specified symptoms and signs involving the circulatory and respiratory systems Procedure Description 73918 Duplex examination using B-mode, color and spectral [...] HAM Morris DO on 02/03/2020 03:27 PM [facility] Interface, Rad In [facility] Xper Echopacs - 02/03/2020 3:27 PM EDT Patient Info Name: NA GOOD Age: 84 years : 1935 Gender: Female Exam Date: 02/03/2020 2:02 PM Site Location: [facility] Patient Status: Outpatient Coil Machine Operator: Tatyana Olmos, VILMA, RDMS (AB), RVT Referring Physician: RUBIN CHIRINOS ; Indications R09.89 - Other specified symptoms and signs involving the circulatory and respiratory systems Procedure Description 57894 Duplex examination using B-mode, color and spectral [...] HAM Morris DO on 02/03/2020 03:27 PM [facility] ECG 12-LEADon 01-13-2019 Atrial Rate [facility] P Standish [facility] P-R Interval [facility] Q-T Interval [facility] Q-T Interval (corrected) [facility] QRS Duration [facility] QTC Calculation (Bezet) [facility] R Standish [facility] T Standish [facility] Ventricular Rate [facility] ECG 12 Leadon 01-15-2018 Atrial Rate Invalid Interpretation Code [facility] P Standish Invalid Interpretation Code [facility] P-R Interval Invalid Interpretation Code [facility] Q-T Interval Invalid Interpretation Code [facility] Q-T Interval (corrected) Invalid Interpretation Code [facility] QRS Duration Invalid Interpretation Code [facility] QTC Calculation (Bezet) Invalid Interpretation Code [facility] R Standish Invalid Interpretation Code [facility] T Standish Invalid Interpretation Code [facility] Ventricular Rate Invalid Interpretation Code [facility] CBC w/o Diffon 12-19-2017 Erythrocyte distribution width Auto Ratio (RBC) 14.2 % Normal 10.0-14.4 [facility] Comment on above: Performed By: #### L IPID, CMET, TSH, CBCWOD ####Unless otherwise noted, all testing performed by [address] [id number]: [id number] Director: Alverto Fitzgerald M.D. Hematocrit Auto Volume Fraction (Bld) 44.2 % Normal 34.4-44.8 [facility] Comment on above: Performed By: #### L IPID, CMET, TSH, CBCWOD ####Unless otherwise noted, all testing performed by [place] [phone]: [id number] Director: Alverto Fitzgerald M.D. Hemoglobin mass conc (Bld) 14.6 g/dL Normal 11.6-15.4 [facility] Comment on above: Performed By: #### L IPID, CMET, TSH, CBCWOD ####Unless otherwise noted, all testing performed by [address] [phone]: [id number] Director: Alverto Fitzgerald M.D. MCH Auto Entitic mass (RBC) 29.4 pg Normal 27.9-33.9 [facility] Comment on above: Performed By: #### L IPID, CMET, TSH, CBCWOD ####Unless otherwise noted, all testing performed by [address] [phone]: [id number] Director: Alverto Fitzgerald M.D. MCHC Auto mass conc (RBC) 33.0 g/dL Low 33.1-35.1 [facility] Comment on above: Performed By: #### L IPID, CMET, TSH, CBCWOD ####Unless otherwise noted, all testing performed by [address] [phone]: [id number] Director: Alverto Fitzgerald M.D. MCV Auto Entitic volume (RBC) 89.1 fL Normal 82.6-98.9 [facility] Comment on above: Performed By: #### L IPID, CMET, TSH, CBCWOD ####Unless otherwise noted, all testing performed by [address] [phone]: [id number] Director: Alverto Fitzgerald M.D. Platelet mean volume Auto Entitic volume (Bld) 8.6 fL Normal 7.0-10.6 [facility] Comment on above: Performed By: #### L IPID, CMET, TSH, CBCWOD ####Unless otherwise noted, all testing performed by [address] [phone]: [id number] Director: Alverto Fitzgerald M.D. Platelets Auto #/vol (Bld) 349 K/mcL Normal 162-402 [facility] Comment on above: Performed By: #### L IPID, CMET, TSH, CBCWOD ####Unless otherwise noted, all testing performed by [address] [phone]: [id number] Director: Alverto Fitzgerald M.D. RBC Auto #/vol (Bld) 4.96 M/mcL Normal 3.7-5.0 [facility] Comment on above: Performed By: #### L IPID, CMET, TSH, CBCWOD ####Unless otherwise noted, all testing performed by [address] [phone]: [id number] Director: Alverto Fitzgerald M.D. WBC Auto #/vol (Bld) 9.0 K/mcL Normal 3.4-10.6 [facility] Comment on above: Performed By: #### L IPID, CMET, TSH, CBCWOD ####Unless otherwise noted, all testing performed by [place] [phone]: [id number] Director: Alverto Fitzgerald M.D. Comprehensive Metabolic Pane [facility] 12-19-2017 Albumin mass conc 3.7 g/dL Normal 3.2-5.2 [facility] Comment on above: Performed By: #### L IPID, CMET, TSH, CBCWOD ####Unless otherwise noted, all testing performed by [address] [phone]: [id number] Director: Alverto Fitzgerald M.D. ALP enzyme act/vol 54 U/L Normal 40-150 [facility] Comment on above: Performed By: #### L IPID, CMET, TSH, CBCWOD ####Unless otherwise noted, all testing performed by [address] [phone]: [id number] Director: Alverto Fitzgerald M.D. ALT enzyme act/vol 15 U/L Normal 14-65 [facility] Comment on above: Result Comment: This test result might be falsely depressed or falsely elevated onsamples drawn from patients taking Sulfasalazine and Sulfapyridine.Venipuncture should occur prior to taking either of these drugs. Performed By: #### L IPID, CMET, TSH, CBCWOD ####Unless otherwise noted, all testing performed by [address] [phone]: [id number] Director: Alverto Fitzgerald M.D. AST enzyme act/vol 15 U/L Normal 0-45 [facility] Comment on above: Result Comment: This test result might be falsely depressed or falsely elevated onsamples drawn from patients taking Sulfasalazine and Sulfapyridine.Venipuncture should occur prior to taking either of these drugs. Performed By: #### L IPID, CMET, TSH, CBCWOD ####Unless otherwise noted, all testing performed by [address] [phone]: [id number] Director: Alverto Fitzgerald M.D. Bilirubin mass conc 0.5 mg/dL Normal 0.3-1.2 [facility] Comment on above: Performed By: #### L IPID, CMET, TSH, CBCWOD ####Unless otherwise noted, all testing performed by [address] [phone]: [id number] Director: Alverto Fitzgerald M.D. Calcium mass conc 8.9 mg/dL Normal 8.4-10.2 [facility] Comment on above: Performed By: #### L IPID, CMET, TSH, CBCWOD ####Unless otherwise noted, all testing performed by [address] [phone]: [id number] Director: Alverto Fitzgerald M.D. Chloride molar conc 106 mmol/L Normal 98-108 [facility] Comment on above: Performed By: #### L IPID, CMET, TSH, CBCWOD ####Unless otherwise noted, all testing performed by [place] [phone]: [id number] Director: Alverto Fitzgerald M.D. CO2 molar conc 29 mmol/L Normal 21-32 [facility] Comment on above: Performed By: #### L IPID, CMET, TSH, CBCWOD ####Unless otherwise noted, all testing performed by [phone]: [id number] Director: Alverto Fitzgerald M.D. Creatinine mass conc 0.76 mg/dL Normal 0.60-1.20 [facility] Comment on above: Performed By: #### L IPID, CMET, TSH, CBCWOD ####Unless otherwise noted, all testing performed by [phone]: [id number] Director: Alverto Fitzgerald M.D. GFR/1.73 sq M predicted among blacks MDRD vol rate/area (S/P/Bld) mL/min/{1.73_m2} Normal [facility] Comment on above: Result Comment: Afri can [place] GFR Calc Performed By: #### L IPID, CMET, TSH, CBCWOD ####Unless otherwise noted, all testing performed by [address] [id number]: [id number] Director: Alverto Fitzgerald M.D. GFR/1.73 sq M predicted among non-blacks MDRD vol rate/area (S/P/Bld) mL/min/{1.73_m2} Normal [facility] Comment on above: Result Comment: Non- GFR [...] ####Unless otherwise noted, all testing performed by [address] [id number]: [id number] Director: Alverto Fitzgerald M.D. Glucose mass conc 84 mg/dL Normal 70-99 [facility] Comment on above: Result Comment: This test result might be falsely depressed or falsely elevated onsamples drawn from patients taking Sulfasalazine and Sulfapyridine.Venipuncture should occur prior to taking either of these drugs. Performed By: #### L IPID, CMET, TSH, CBCWOD ####Unless otherwise noted, all testing performed by [address] [phone]: [id number] Director: Alverto Fitzgerald M.D. Potassium molar conc 4.1 mmol/L Normal 3.5-5.1 [facility] Comment on above: Performed By: #### L IPID, CMET, TSH, CBCWOD ####Unless otherwise noted, all testing performed by [address] [phone]: [id number] Director: Alverto Fitzgerald M.D. Protein mass conc 7.2 g/dL Normal 6.0-8.0 [facility] Comment on above: Performed By: #### L IPID, CMET, TSH, CBCWOD ####Unless otherwise noted, all testing performed by [address] [phone]: [id number] Director: Alverto Fitzgerald M.D. Sodium molar conc 142 mmol/L Normal 135-145 [facility] Comment on above: Performed By: #### L IPID, CMET, TSH, CBCWOD ####Unless otherwise noted, all testing performed by [place] [id number]: [id number] Director: Alverto Fitzgerald M.D. Urea nitrogen mass conc 19 mg/dL Normal 8-25 [facility] Comment on above: Performed By: #### L IPID, CMET, TSH, CBCWOD ####Unless otherwise noted, all testing performed by [place] [id number]: [id number] Director: Alverto Fitzgerald M.D. Lipid Panelon 12-19-2017 Cholesterol in HDL mass conc 68 mg/dL High 40-59 [facility] Comment on above: Performed By: #### L IPID, CMET, TSH, CBCWOD ####Unless otherwise noted, all testing performed by [place] [id number]: [id number] Director: Alverto Fitzgerald M.D. Cholesterol in LDL mass conc 150 mg/dL Normal 10-150 [facility] Comment on above: Performed By: #### L IPID, CMET, TSH, CBCWOD ####Unless otherwise noted, all testing performed by [address] [phone]: [id number] Director: Alverto Fitzgerald M.D. Cholesterol in VLDL mass conc 24 mg/dL Normal 5-40 [facility] Comment on above: Performed By: #### L IPID, CMET, TSH, CBCWOD ####Unless otherwise noted, all testing performed by [address] [phone]: [id number] Director: Alverto Fitzgerald M.D. Cholesterol mass conc 243 mg/dL High 100-199 [facility] Comment on above: Performed By: #### L IPID, CMET, TSH, CBCWOD ####Unless otherwise noted, all testing performed by [address] [phone]: [id number] Director: Alverto Fitzgerald M.D. Cholesterol.total/Cho lesterol in HDL mass ratio 3.6 {ratio} Normal 3.2-5.0 [facility] Comment on above: Result Comment: Robert souza Coronary Heart Disease Risk Factor (CHDRF):Average risk= 4.41/2 Average risk= 3.32 times Average risk= 7.1 Performed By: #### L IPID, CMET, TSH, CBCWOD ####Unless otherwise noted, all testing performed by [address] [phone]: [id number] Director: Alverto Fitzgerald M.D. Triglyceride mass conc 121 mg/dL High 25-120 [facility] Comment on above: Performed By: #### L IPID, CMET, TSH, CBCWOD ####Unless otherwise noted, all testing performed by [address] [phone]: [id number] Director: Alverto Fitzgerald M.D. Microalbumin, Ur Random Pane epifanio 12-19-2017 Creatinine, Urine Random 124.00 mg/dL Normal [facility] Comment on above: Result Comment: No e stablished reference range. Performed By: #### M IALBURR ####Unless otherwise noted, all testing performed by [address] [phone]: [id number] Director: Alverto Fitzgerald M.D. MIALB/Creatinine Ratio 9 Normal 0.0-25.0 [facility] Comment on above: Performed By: #### M IALBURR ####Unless otherwise noted, all testing performed by [address] [phone]: [id number] Director: Alverto Fitzgerald M.D. Microalbumin, Urine Random 1.1 mg/dL Normal 0.0-1.8 [facility] Comment on above: Performed By: #### M IALBURR ####Unless otherwise noted, all testing performed by [address] [phone]: [id number] Director: Alverto Fitzgerald M.D. TSHon 12-19-2017 T4 free mass conc 1.1 ng/dL Normal 0.7-1.7 [facility] Comment on above: Result Comment: Samp les from patients routinely receiving high dose biotin therapy(100-300 mg/day) may show falsely increased results. Please correlateclinically. Performed By: #### L IPID, CMET, TSH, CBCWOD ####Unless otherwise noted, all testing performed by [address] [phone]: [id number] Director: Alverto Fitzgerald M.D. Thyrotropin Qn 0.22 uIU/mL Low 0.320-5.000 [facility] Comment on above: Result Comment: Samp les from patients routinely receiving high dose biotin therapy(100-300 mg/day) may show falsely decreased results. Please correlateclinically. Performed By: #### L IPID, CMET, TSH, CBCWOD ####Unless otherwise noted, all testing performed by [address] [phone]: [id number] Director: Alverto Fitzgerald M.D. CBC and Differentialon 12-19 Basophils 1.1 % Invalid Interpretation Code [facility] Basophils 0.1 K/mcL Invalid Interpretation Code 0 - 0.2 [facility] Eosinophils 0.3 K/mcL Invalid Interpretation Code 0 - 0.5 [facility] Erythrocytes (RBC) 4.79 M/mcL Invalid Interpretation Code 3.7 - 5.0 [facility] Hematocrit (HCT) 42.7 % Invalid Interpretation Code 34.4 - 44.8 % [facility] Hemoglobin (HGB) 14.1 g/dL Invalid Interpretation Code 11.6 - 15.4 g/dL [facility] Lymphocytes 2.4 K/mcL Invalid Interpretation Code 1.0 - 3.7 [facility] MCH 29.5 pg Invalid Interpretation Code 27.9 - 33.9 pg [facility] MCHC 33.1 g/dL Invalid Interpretation Code 33.1 - 35.1 g/dL [facility] MCV 89.2 fL Invalid Interpretation Code 82.6 - 98.9 [facility] Monocytes 0.6 K/mcL Invalid Interpretation Code 0.1 - 0.6 [facility] Neutrophils 4.4 K/mcL Invalid Interpretation Code 1.2 - 6.9 [facility] Platelet mean volume (PMV) 8.7 fL Invalid Interpretation Code 7.0 - 10.6 [facility] Platelets 278 K/mcL Invalid Interpretation Code 162 - 402 [facility] RDW-CA 14.3 % Invalid Interpretation Code 10 - 14.4 % [facility] Segmented Neut 56.5 % Invalid Interpretation Code [facility] T8 suppressor/100 cells 4.2 10*3/uL Invalid Interpretation Code [facility] T8 suppressor/100 cells 30.3 10*3/uL Invalid Interpretation Code [facility] T8 suppressor/100 cells 7.9 10*3/uL Invalid Interpretation Code [facility] WBC (Leukocytes) 7.8 K/mcL Invalid Interpretation Code 3.4 - 10.6 [facility] Comprehensive Metabolic Pane epifanio 12-19-2016 Alanine aminotransferase (ALT) 20 U/L Invalid Interpretation Code 14 - 65 U/L [facility] Albumin 3.6 g/dL Invalid Interpretation Code 3.2 - 5.2 g/dL [facility] Alkaline phosphatase (ALP) 39 U/L Low 40 - 150 U/L [facility] Aspartate aminotransferase (AST) 14 U/L Invalid Interpretation Code 0 - 45 U/L [facility] Calcium 9.4 mg/dL Invalid Interpretation Code 8.4 - 10.2 mg/dL [facility] Chloride 107 mmol/L Invalid Interpretation Code 98 - 108 mmol/L [facility] CO2 30 mmol/L Invalid Interpretation Code 21 - 32 mmol/L [facility] Creatinine 0.72 mg/dL Invalid Interpretation Code 0.6 - 1.2 mg/dL [facility] eGFR (black) mL/min/{1.73_m2} Invalid Interpretation Code ml/min/1.73s q.m [facility] eGFR (non-black) mL/min/{1.73_m2} Invalid Interpretation Code ml/min/1.73s q.m [facility] Glucose 86 mg/dL Invalid Interpretation Code 70 - 99 mg/dL [facility] Potassium 4.3 mmol/L Invalid Interpretation Code 3.5 - 5.1 mmol/L [facility] Protein 6.8 g/dL Invalid Interpretation Code 6 - 8 g/dL [facility] Sodium 145 mmol/L Invalid Interpretation Code 135 - 145 mmol/L [facility] Urea nitrogen 17 mg/dL Invalid Interpretation Code 8 - 25 mg/dL [facility] Urine, bilirubin presence 0.6 mg/dL Invalid Interpretation Code 0.3 - 1.2 mg/dL [facility] Lipid Panelon 12-19-2016 Cholesterol 242 mg/dL High 100 - 199 mg/dL [facility] Cholesterol to HDL Ratio 3.2 {ratio} Invalid Interpretation Code 3.2 - 5.0 [facility] HDL Cholesterol 76 mg/dL High 40 - 59 mg/dL [facility] Interpretation and review of laboratory results Abnormal Invalid Interpretation Code [facility] LDL Cholesterol 150 mg/dL Invalid Interpretation Code 10 - 150 mg/dL [facility] Triglyceride 85 mg/dL Invalid Interpretation Code 25 - 120 mg/dL [facility] VLDL 17 mg/dL Invalid Interpretation Code 5 - 40 mg/dL [facility] Vital Signs Date Time Vital Sign Value Performing Clinician Facility 07-28-2020 13:54-0400 BMI (Body Mass Index) 22.43 kg/m2 [facility] 07-28-2020 13:54-0400 Body Temperature 98.71 [degF] [facility] 07-28-2020 13:54-0400 Body weight 57.42 kg [facility] 07-28-2020 13:54-0400 BP Diastolic 82 mm[Hg] [facility] 07-28-2020 13:54-0400 BP Systolic 139 mm[Hg] [facility] 07-28-2020 13:54-0400 Height 160 cm [facility] 07-28-2020 13:54-0400 Pulse (Heart Rate) 84 /min [facility] 07-28-2020 13:54-0400 Pulse Oximetry 97 % [facility] 01-15-2020 14:24-0400 BMI (Body Mass Index) 22.5 kg/m2 Rubin Mezahmy [facility] 01-15-2020 14:24-0400 Body weight 57.61 kg Rubin Mezahmy [facility] 01-15-2020 14:24-0400 BP Diastolic 78 mm[Hg] Rubin Mandeep [facility] 01-15-2020 14:24-0400 BP Systolic 136 mm[Hg] Rubin Cihrinos [facility] 01-15-2020 14:24-0400 Height 160 cm Rubin Chirinos [facility] 01-15-2020 14:24-0400 Pulse (Heart Rate) 64 /min Rubin Chirinos [facility] 01-15-2020 14:24-0400 Pulse Oximetry 97 % Rubin Chirinos [facility] 12-08-2019 11:20-0400 BMI (Body Mass Index) 22.5 kg/m2 [place] Ludwig [facility] 12-08-2019 11:20-0400 Body Temperature 97.81 [degF] David Ludwig [facility] 12-08-2019 11:20-0400 Body weight 57.61 kg David Ludwig [facility] 12-08-2019 11:20-0400 BP Diastolic 70 mm[Hg] David Ludwig [facility] 12-08-2019 11:20-0400 BP Systolic 133 mm[Hg] David Ludwig [facility] 12-08-2019 11:20-0400 Height 160 cm [place] Ludwig [facility] 12-08-2019 11:20-0400 Pulse (Heart Rate) 98 /min [place] Ludwig [facility] 06-16-2019 09:58-0500 BP Diastolic 74 mm[Hg] David Ludwig [facility] 06-16-2019 09:58-0500 BP Systolic 130 mm[Hg] David Ludwig [facility] 06-16-2019 09:58-0500 Pulse (Heart Rate) 82 /min David Ludwig [facility] 06-16-2019 09:58-0500 Pulse Oximetry 97 % [place] Ludwig [facility] 06-16-2019 09:58-0500 Respiratory Rate 18 /min David Ludwig [facility] 06-16-2019 09:54-0500 BMI (Body Mass Index) 23.13 kg/m2 David Ludwig [facility] 06-16-2019 09:54-0500 Body Temperature 97.9 [degF] David Ludwig [facility] 06-16-2019 09:54-0500 Body weight 59.24 kg David Ludwig [facility] 06-16-2019 09:54-0500 Height 160 cm David Ludwig [facility] 01-13-2019 11:15-0400 BMI (Body Mass Index) 22.14 kg/m2 Rubin Chirinos [facility] 01-13-2019 11:15-0400 Body weight 56.7 kg Rubin Chirinos [facility] 01-13-2019 11:15-0400 BP Diastolic 71 mm[Hg] Rubin Chirinos [facility] 01-13-2019 11:15-0400 BP Systolic 140 mm[Hg] Rubin Chirinos [facility] 01-13-2019 11:15-0400 Height 160 cm Rubin Chirinos [facility] 01-13-2019 11:15-0400 Pulse (Heart Rate) 80 /min Rubin Chirinos [facility] 01-13-2019 11:15-0400 Pulse Oximetry 99 % Rubin Chirinos [facility] 12-04-2018 09:08-0400 BMI (Body Mass Index) 22.43 kg/m2 Ceasar Arce [facility] 12-04-2018 09:08-0400 Body weight 57.42 kg Ceasar Arce [facility] 12-04-2018 09:08-0400 BP Diastolic 80 mm[Hg] Ceasar Arce [facility] 12-04-2018 09:08-0400 BP Systolic 167 mm[Hg] Ceasar Arce [facility] 12-04-2018 09:08-0400 Height 160 cm Ceasar Arce [facility] 12-04-2018 09:08-0400 Pulse (Heart Rate) 74 /min Ceasar Arce [facility] 12-04-2018 09:08-0400 Pulse Oximetry 98 % Ceasar Arce [facility] 06-26-2018 11:00-0500 BP Diastolic 77 mm[Hg] David Ludwig [facility] 06-26-2018 11:00-0500 BP Systolic 129 mm[Hg] David Ludwig [facility] 06-26-2018 11:00-0500 Pulse (Heart Rate) 66 /min David Ludwig [facility] 06-26-2018 11:00-0500 Pulse Oximetry 96 % David Ludwig [facility] 06-26-2018 10:56-0500 BMI (Body Mass Index) 22.18 kg/m2 David Ludwig [facility] 06-26-2018 10:56-0500 Body Temperature 98.2 [degF] David Ludwig [facility] 06-26-2018 10:56-0500 Height 160 cm David Ludwig [facility] 06-26-2018 10:56-0500 Weight 56.79 kg David Ludwig [facility] 01-15-2018 10:01-0400 BMI (Body Mass Index) 22.32 kg/m2 Alfreda [facility] 01-15-2018 10:01-0400 BP Diastolic 80 mm[Hg] [facility] 01-15-2018 10:01-0400 BP Systolic 152 mm[Hg] [facility] 01-15-2018 10:01-0400 Height 160 cm [facility] 01-15-2018 10:01-0400 Pulse (Heart Rate) 81 /min [facility] 01-15-2018 10:01-0400 Pulse Oximetry 98 % [facility] 01-15-2018 10:01-0400 Weight 57.15 kg [facility] 12-27-2017 10:27-0400 BMI (Body Mass Index) 22.27 kg/m2 David Ludwig [facility] 12-27-2017 10:27-0400 Body Temperature 97.59 [degF] David Ludwig [facility] 12-27-2017 10:27-0400 BP Diastolic 75 mm[Hg] David Ludwig [facility] 12-27-2017 10:27-0400 BP Systolic 159 mm[Hg] David Ludwig [facility] 12-27-2017 10:27-0400 Height 160 cm David Ludwig [facility] 12-27-2017 10:27-0400 Pulse (Heart Rate) 82 /min David Ludwig [facility] 12-27-2017 10:27-0400 Pulse Oximetry 97 % David Ludwig [facility] 12-27-2017 10:27-0400 Respiratory Rate 12 /min David Ludwig [facility] 12-27-2017 10:27-0400 Weight 57.02 kg David Ludwig [facility] 06-26-2017 09:46-0500 BMI (Body Mass Index) 23.06 kg/m2 [facility] 06-26-2017 09:46-0500 Body Temperature 98.29 [degF] [facility] 06-26-2017 09:46-0500 BP Diastolic 80 mm[Hg] Alfredo Barreto [facility] 06-26-2017 09:46-0500 BP Systolic 140 mm[Hg] Alfredo Barreto [facility] 06-26-2017 09:46-0500 Height 160 cm Alfredo Barreto [facility] 06-26-2017 09:46-0500 Pulse (Heart Rate) 68 /min Alfredo Barreto [facility] 06-26-2017 09:46-0500 [facility] 59.06 [facility]-2017 14:38-0500 BMI (Body Mass Index) 23.03 kg/m2 Ceasar Arce [facility] 06-20-2017 14:38-0500 BP Diastolic 79 mm[Hg] Ceasar Arce [facility] 06-20-2017 14:38-0500 BP Systolic 160 mm[Hg] Ceasar Arce [facility] 06-20-2017 14:38-0500 Height 160 cm Ceasardario Arce [facility] 06-20-2017 14:38-0500 Pulse (Heart Rate) 67 /min [facility] 06-20-2017 14:38-0500 Pulse Oximetry 99 % Ceasardario Arce [facility] 06-20-2017 14:38-0500 Weight 58.97 kg Ceasar Arce [facility] 01-08-2017 10:21-0400 BMI (Body Mass Index) 22.32 kg/m2 Rubin Chirinos [facility] Work Phone: 01-08-2017 10:21-0400 BP Diastolic 85 mm[Hg] Rubin Chirinos [facility] Work Phone: 01-08-2017 10:21-0400 BP Systolic 165 mm[Hg] Rubin Chirinos [facility] Work Phone: 01-08-2017 10:21-0400 Height 160 cm Rubin Chirinos [facility] Work Phone: 01-08-2017 10:21-0400 Pulse (Heart Rate) 64 /min Rubin Chirinos [facility] Work Phone: 01-08-2017 10:21-0400 Pulse Oximetry 97 % Rubin Chirinos [facility] Work Phone: 01-08-2017 [id number] Weight 57.15 kg Rubin Chirinos [facility] Work Phone: 12-13-2016 14:18-0400 BMI (Body Mass Index) 22.44 kg/m2 Ceasar Oviedoo [facility] Work Phone: 12-13-2016 14:18-0400 BP Diastolic 81 mm[Hg] Ceasar [place] [facility] Work Phone: 12-13-2016 14:18-0400 BP Systolic 167 mm[Hg] Ceasar [place] [facility] Work Phone: 12-13-2016 14:18-0400 Height 160 cm Ceasar [place] [facility] Work Phone: 12-13-2016 14:18-0400 Pulse (Heart Rate) 69 /min Ceasar [place] [facility] Work Phone: 12-13-2016 14:18-0400 Pulse Oximetry 99 % Cesaar [place] [facility] Work Phone: 12-13-2016 14:18-0400 Weight 57.47 kg Ceasar Arce [facility] Work Phone: Encounters Encounter Date Encounter Type Care Provider Facility Start: 12-29-2024 ambulatory Alexey Patino ty:[facility] Start: 12-24-2024 End: 12-27-2024 Evaluation and management of inpatient JOHNSON WATSON Facility:[facility] Start: 12-09-2024 ambulatory Alexey Patino ty:[facility] Start: 09-18-2024 ambulatory Alexey Patino ty:[facility] Start: 01-14-2021 ambulatory [place] MORTENSEN [facility] Ambulatory Start: 12-07-2020 ambulatory DAVID LUDWIG [facility]ulatory Start: 09-21-2020 End: 09-21-2020 Refill Shante Hargrove LPN [facility] Comment on above: Benign essential hyp ertension; Chronic combined systolic and diastolic congestive heart failure (HCC); Insomnia, unspecified type Start: 07-28-2020 End: 07-28-2020 ambulatory [place] LUDWIG [facility] Start: 07-28-2020 End: 07-28-2020 Office outpatient visit 25 minutes David Ludwig Work Phone: [facility] Comment on above: Benign essential hyp ertension (Primary Dx); Chronic combined systolic and diastolic congestive heart failure (HCC); Mixed hyperlipidemia Start: 05-07-2020 End: 05-07-2020 Orders Only Alley Kimball Work Phone: [facility] Start: 02-03-2020 End: 02-04-2020 Patient encounter procedure [facility] Start: 02-03-2020 End: 02-03-2020 Subsequent hospital visit by physician Rubin Chirinos Work Phone: [facility] Comment on above: Bruit of left caroti d artery Start: 01-15-2020 End: 01-15-2020 Office outpatient visit 25 minutes Rubin Chirinos Work Phone: [facility] Comment on above: Bruit of left caroti d artery (Primary Dx); Chronic combined systolic and diastolic congestive heart failure (HCC); Mixed hyperlipidemia; Nonrheumatic aortic valve insufficiency; Benign essential hypertension; Left carotid bruit Start: 12-08-2019 End: 12-08-2019 Patient encounter procedure David Ludwig Work Phone: [facility] Comment on above: General medical exam (Primary Dx); At low risk for fall; Need for vaccination Start: 12-01-2019 End: 12-05-2019 Patient encounter procedure [facility] Start: 06-16-2019 End: 06-16-2019 Office outpatient visit 25 minutes David Ludwig Work Phone: [facility] Comment on above: Benign essential hyp ertension (Primary Dx); Chronic combined systolic and diastolic congestive heart failure (HCC); Mixed hyperlipidemia; Subclinical hypothyroidism; Insomnia, unspecified type Start: 01-13-2019 End: 01-13-2019 Office outpatient visit 25 minutes Rubin Chirinos Work Phone: [facility] Comment on above: Cardiomyopathy, unsp ecified type (HCC) (Primary Dx); Chronic combined systolic and diastolic congestive heart failure (HCC); Mixed hyperlipidemia; Benign essential hypertension Start: 12-04-2018 End: 12-04-2018 Clinical Support Kriss Marcelo [facility] Audiology Comment on above: Sensorineural hearin g loss, bilateral (Primary Dx); Sudden hearing loss, unspecified laterality Start: 12-04-2018 End: 12-04-2018 Office outpatient visit 25 minutes Ceasar Arce Work Phone: [facility] Comment on above: Hearing loss due to cerumen impaction, bilateral (Primary Dx); Sensorineural hearing loss, bilateral Start: 09-26-2018 End: 09-26-2018 Patient encounter procedure Eve Yap [facility] Comment on above: Medicare Wellness Vi sit (VM to schedule MWV) Start: 06-26-2018 End: 06-26-2018 Office outpatient visit 25 minutes David Ludwig Work Phone: [facility] Comment on above: Benign essential hyp ertension (Primary Dx); Mixed hyperlipidemia; Chronic combined systolic and diastolic congestive heart failure (HCC); Mood disorder (HCC) Start: 01-28-2018 Patient encounter procedure Alfreda Gallegos Facility:[facility] Start: 01-28-2018 End: 01-28-2018 Patient encounter Alfreda Gallegos Work Phone: [facility] Start: 01-15-2018 End: 01-15-2018 Office outpatient visit 25 minutes Alfreda Gallegos Work Phone: [facility] Comment on above: Congestive heart elsy lure, unspecified HF chronicity, unspecified heart failure type (HCC) (Primary Dx); Dyspnea on exertion; Nonrheumatic aortic valve insufficiency; Benign essential hypertension Start: 12-27-2017 End: 12-27-2017 Office outpatient visit 25 minutes Davidcleveland Mortensen Crouch Work Phone: [facility] Comment on above: Benign essential hyp ertension (Primary Dx); Mixed hyperlipidemia; Subclinical hypothyroidism; Chronic combined systolic and diastolic congestive heart failure (HCC); Need for influenza vaccination Start: 12-19-2017 Patient encounter procedure Alfredo Barreto Facility:[facility] Start: 12-19-2017 End: 12-19-2017 Patient encounter Devonte Hassan [facility] Start: 11-07-2017 Refill Rubin Schafer Work Phone: [facility] Comment on above: Medication Refill Start: 06-26-2017 Patient encounter procedure Alfredo Barreto Facility:[facility] Start: 06-26-2017 Office/outpatient vi sit, est, level 3 Alfredo Barreto Work Phone: [facility] Start: 06-25-2017 Patient encounter procedure Oscar Mendes Facility:[facility] Start: 06-20-2017 Patient encounter Ceasar Arce Work Phone: [facility] Start: 06-18-2017 Patient encounter procedure Oscar Mendes Facility:[facility] Start: 01-12-2017 End: 01-12-2017 Ambulatory Rubin Chirinos Work Phone: [facility] Start: 01-08-2017 Office/outpatient vi sit, est, level 5 Rubin Chirinos Work Phone: [facility] Start: 12-19-2016 End: 12-19-2016 Ambulatory Oscar Mendes Work Phone: [facility] Start: 12-15-2016 End: 12-15-2016 Ambulatory Oscar Mendes Work Phone: [facility] Start: 12-13-2016 End: 12-13-2016 Office outpatient new 30 minutes Ceasar Arce Work Phone: [facility] Comment on above: Hearing loss due to cerumen impaction, bilateral (Primary Dx);Presbycusis, unspecified laterality Start: 11-24-2016 End: 11-24-2016 Ambulatory Oscar Mendes Work Phone: [facility] Procedures Date Procedure Procedure Detail Performing Clinician Start: 02-03-2020 Carotid artery doppl er assessment Rubin Chirinos Work Phone: Start: 12-08-2019 Adult depression screening assessment David Ludwig Start: 01-13-2019 12 lead ECG Rubin swift Work Phone: Start: 12-18-2018 Adult depression screening assessment Rubin Chirinos Start: 01-15-2018 End: 01-15-2018 Ecg routine ecg w/least 12 lds w/i&r Alfreda Gallegos Work Phone: Plan of Treatment Date Care Activity Detail Author Start: 12-07-2029 Tetanus vaccination Tetanus: Every 10yrs [facility] Start: 12-27-2022 History and physical examination, annual for health maintenance Wellness Visit [facility] Start: 12-22-2021 Influenza vaccination Sequential Influenza Vaccine (#1) [facility] Start: 01-31-2021 End: 01-31-2021 Office Visit 01/31/2021 Office Visit Primary Care David Ludwig MD [address] [place] [address] [phone] [facility] Start: 12-07-2020 Administration of herpes zoster vaccine Zoster Vaccines (1 of 2) [facility] Comment on above: Postponed from 10/21/1985 (Treatment Not Available) Start: 12-07-2020 Adolescent depression screening assessment Depression Screening (PHQ9) [facility] Start: 12-07-2020 Depression screening using PHQ-9 (Patient Health Questionnaire 9) score [facility] Start: 12-07-2020 Fall risk assessment Falls Risk Assessment [facility] Start: 12-07-2020 History and physical examination, annual for health maintenance Wellness Visit [facility] Start: 08-09-2020 COVID-19 Vaccine (3 - Booster for Moderna series) COVID-19 Vaccine (3 - Booster for Moderna series) [facility] Start: 07-28-2020 End: 07-28-2020 Office Visit 07/28/2020 Office Visit Primary Care David Ludwig MD [address] [place] [address] [phone] [facility] Start: 07-28-2020 End: 07-28-2021 Microalbumin measurement, urine, quantitative Microalbumin/Creatinine Ratio, UR Random Lab Routine Benign essential hypertension Expected: 07/28/2020, Expires: 07/28/2021 [facility] Comment on above: Expected: 07/28/2020, Expires: 2 Start: 06-10-2020 End: 06-10-2020 Office Visit 06/10/2020 Office Visit Primary Care David Ludwig MD [facility] [place] [facility] [place] [address] [phone] [facility] Start: 02-03-2020 End: 02-03-2020 Appointment 02/03/2020 Appointment Cardiology Rubin Chirinos MD [address] [place] [address] [phone] [facility] Start: 12-23-2019 Influenza vaccination given Sequential Influenza Vaccine (#1) [facility] Start: 12-19-2019 Depression screening using PHQ-9 (Patient Health Questionnaire 9) score DEPRESSION SCREENING (PHQ9) [facility] Start: 12-19-2019 Fall risk assessment Falls Risk Assessment [facility] Start: 12-08-2019 End: 12-08-2019 Office Visit 12/08/2019 Office Visit Primary Care David Ludwig MD [facility] [place] [address] [phone] [facility] Start: 06-16-2019 End: 06-16-2020 Microalbumin measurement, urine, quantitative Microalbumin/Creatinine Ratio, UR Random Lab Routine Benign essential hypertension Expected: 06/16/2019, Expires: 06/16/2020 [facility] Comment on above: Expected: 06/16/2019, Expires: 1 Start: 06-16-2019 End: 06-16-2019 Office Visit 06/16/2019 Office Visit Primary Care David Ludwig MD [address] [place] [address] [phone] [facility] Start: 01-13-2019 End: 01-13-2019 Office Visit 01/13/2019 Office Visit Cardiology Rubin Chirinos MD [address] [facility] [place] [address] [phone] [facility] Start: 12-22-2018 Influenza vaccination given SEQUENTIAL INFLUENZA VACCINE (#1) [facility] Start: 12-20-2018 End: 12-20-2018 Office Visit 12/20/2018 Office Visit Primary Care David Ludwig MD [address] [place] [address] [phone] [facility] Start: 12-18-2018 End: 12-18-2018 Office Visit 12/18/2018 Office Visit Primary Care David Ludwig MD [address] [place] [address] [phone] [facility] Start: 06-26-2018 End: 06-27-2019 Microalbumin measurement, urine, quantitative Microalbumin, Urine, Random Routine Benign essential hypertension Expected: 06/26/2018, Expires: 06/27/2019 [facility] Comment on above: Expected: 06/26/2018, Expires: 0 Start: 06-26-2018 End: 06-26-2018 Ambulatory 06/26/2018 Office Visit Primary Care David Ludwig MD [address] [place] [address] [phone] [facility] Start: 06-19-2018 End: 06-19-2018 Ambulatory 06/19/2018 Clinical Support Primary Care [facility] Start: 01-28-2018 End: 01-28-2018 Ambulatory 01/28/2018 Appointment Cardiology Alfreda Gallegos, INSTRUCTIONAL PARAPROFESSIONAL [address] [place] [address] [phone] [facility] Start: 01-10-2018 End: 01-10-2018 Ambulatory 01/10/2018 Office Visit Cardiology Rubin Chirinos MD [address] [place] [address] [phone] [facility] Start: 12-27-2017 End: 12-27-2017 Ambulatory [facility] Start: 12-22-2017 Influenza vaccination SEQUENTIAL INFLUENZA VACCINE (#1) [facility] Start: 12-18-2017 Ambulatory 12/18/2017 Clinical Support Primary Care [facility] Start: 06-26-2017 Ambulatory [facility] Start: 06-25-2017 Ambulatory 06/25/2017 Hospital Encounter Oscar Mendes MD [address] [place] [address] [phone] [facility] Start: 06-20-2017 Ambulatory 06/20/2017 Office Visit Otolaryngology Ceasar Arce MD [address] [address] [phone] [facility] Start: 06-18-2017 Ambulatory 06/18/2017 Hospital Encounter Oscar Mendes MD [address] [place] [address] [phone] [facility] Start: 01-12-2017 Ambulatory 01/12/2017 Hospital Encounter Cardiology Rubin Chirinos MD [address] [place] [address] [phone] [facility] Start: 01-08-2017 Ambulatory 01/08/2017 Office Visit Cardiology Rubin Chirinos MD [address] [place] [address] [phone] [facility] Start: 12-22-2016 Influenza vaccination SEQUENTIAL INFLUENZA VACCINE (#1) [facility] Work Phone: Start: 12-22-2016 SEQUENTIAL INFLUENZA VACCINE (#1) SEQUENTIAL INFLUENZA VACCINE (#1) [facility] Work Phone: Start: 12-13-2016 Ambulatory 12/13/2016 Office Visit Otolaryngology Ceasar Arce MD [address] [place] [address] [phone] [facility] Start: 03-02-2016 Pneumococcal vaccination PNEUMOCOCCAL VACCINE AGE 65+ (2 of 2 - PCV13) [facility] Start: 10-21-2000 Fall risk assessment Steadi Fall Risk Assessment [facility] Start: 10-21-2000 Pneumococcal vaccination PNEUMOCOCCAL VACCINE AGE 65+ (1 of 2 - PCV13) [facility] Work Phone: Start: 10-21-2000 PNEUMOCOCCAL VACCINE AGE 65+ (1 of 2 - PCV13) PNEUMOCOCCAL VACCINE AGE 65+ (1 of 2 - PCV13) [facility] Work Phone: Start: 1995 Zoster vacc, sc ZOSTER VACCINE [facility] Work Phone: Start: 10-21-1985 Administration of herpes zoster vaccine ZOSTER VACCINES (1 of 2) [facility] Start: 10-21-1985 ZOSTER VACCINES (1 of 2) ZOSTER VACCINES (1 of 2) [facility] Start: 10-21-1938 History and physical examination, annual for health maintenance Wellness Visit [facility] Start: 1935 Fall risk assessment Falls Risk Assessment [facility] Start: 1935 End: 1935 DEXA SCAN DEXA SCAN [facility] Work Phone: Start: 1935 End: 1935 Screening for osteoporosis DEXA SCAN [facility] Start: 1935 End: 1935 TETANUS EVERY 10 YR TETANUS EVERY 10 YR [facility] Work Phone: Start: 1935 End: 1935 Tetanus vaccination [facility] Work Phone: End: 03-17-2021 Carotid artery doppler assessment Ultrasound doppler carotid Vascular Ultrasound Routine Bruit of left carotid artery 1 Occurrences starting 01/15/2020 until 03/17/2021 [facility] Comment on above: 1 Occurrences starting 01/15/2020 until 03/17/2021 End: 01-12-2017 Carotid Duplex Carotid Duplex Routine Bruit Once for 1 Occurrences starting 01/12/2017 until 01/12/2017 [facility] Work Phone: Carotid Duplex Carotid Duplex R outine Bruit 01/12/2017 4:01 PM EDT [facility] Work Phone: End: 03-10-2018 Carotid Duplex Carotid Duplex Routine Bruit 1 Occurrences starting 01/08/2017 until 03/10/2018 [facility] Work Phone: End: 06-26-2018 Cholesterol Lipid Panel Routine Pure hypercholesterolemia 1 Occurrences starting 06/26/2017 until 06/26/2018 [facility] End: 06-26-2018 Complete blood count (hemogram) panel - Blood by Automated count CBC Routine Essential hypertension 1 Occurrences starting 06/26/2017 until 06/26/2018 [facility] End: 06-27-2019 Complete blood count with white cell differential, manual CBC and Differential Routine Benign essential hypertension 1 Occurrences starting 11/26/2018 until 06/27/2019 [facility] Comment on above: 1 Occurrences starting 11/26/2018 until 06/27/2019 End: 06-16-2020 Complete blood count with white cell differential, manual CBC and Differential Lab Routine Benign essential hypertension 1 Occurrences starting 06/16/2019 until 06/16/2020 [facility] Comment on above: 1 Occurrences starting 06/16/2019 until 06/16/2020 End: 07-28-2021 Complete blood count with white cell differential, manual CBC and Differential Lab Routine Benign essential hypertension 1 Occurrences starting 07/28/2020 until 07/28/2021 [facility] Comment on above: 1 Occurrences starting 07/28/2020 until 07/28/2021 End: 06-27-2019 Comprehensive metabolic 2000 panel Comprehensive Metabolic Panel Routine Benign essential hypertension 1 Occurrences starting 11/26/2018 until 06/27/2019 [facility] Comment on above: 1 Occurrences starting 11/26/2018 until 06/27/2019 End: 06-16-2020 Comprehensive metabolic 2000 panel Comprehensive Metabolic Panel Lab Routine Benign essential hypertension 1 Occurrences starting 06/16/2019 until 06/16/2020 [facility] Comment on above: 1 Occurrences starting 06/16/2019 until 06/16/2020 End: 07-28-2021 Comprehensive metabolic 2000 panel Comprehensive Metabolic Panel Lab Routine Benign essential hypertension 1 Occurrences starting 07/28/2020 until 07/28/2021 [facility] Comment on above: 1 Occurrences starting 07/28/2020 until 07/28/2021 End: 06-26-2018 Comprehensive metabolic panel [AGGREGATE] Comprehensive Metabolic Panel Routine Essential hypertension 1 Occurrences starting 06/26/2017 until 06/26/2018 [facility] End: 01-16-2019 Echocardiogram complete Echocardiogram complete Routine Dyspnea on exertion 1 Occurrences starting 01/15/2018 until 01/16/2019 [facility] Comment on above: 1 Occurrences starting 01/15/2018 until 01/16/2019 End: 06-27-2019 Lipid 1996 panel Lipid Panel Routine Mixed hyperlipidemia 1 Occurrences starting 11/26/2018 until 06/27/2019 [facility] Comment on above: 1 Occurrences starting 11/26/2018 until 06/27/2019 End: 06-16-2020 Lipid 1996 panel Lipid Panel Lab Routine Mixed hyperlipidemia 1 Occurrences starting 06/16/2019 until 06/16/2020 [facility] Comment on above: 1 Occurrences starting 06/16/2019 until 06/16/2020 End: 07-28-2021 Lipid 1996 panel Lipid Panel Lab Routine Benign essential hypertension 1 Occurrences starting 07/28/2020 until 07/28/2021 [facility] Comment on above: 1 Occurrences starting 07/28/2020 until 07/28/2021 End: 06-26-2018 Microalbumin, Urine, Random Microalbumin, Urine, Random Routine Essential hypertension 1 Occurrences starting 06/26/2017 until 06/26/2018 [facility] End: 06-27-2019 Thyrotropin Qn TSH with Reflex Free T4 Routine Benign essential hypertension 1 Occurrences starting 11/26/2018 until 06/27/2019 [facility] Comment on above: 1 Occurrences starting 11/26/2018 until 06/27/2019 End: 06-26-2018 TSH TSH Routine Hypothyroidism (acquired) 1 Occurrences starting 06/26/2017 until 06/26/2018 [facility] End: 06-16-2020 TSH Qn TSH with Reflex Free T4 Lab Routine Subclinical hypothyroidism 1 Occurrences starting 06/16/2019 until 06/16/2020 [facility] Comment on above: 1 Occurrences starting 06/16/2019 until 06/16/2020 End: 07-28-2021 TSH Qn TSH with Reflex Free T4 Lab Routine Benign essential hypertension 1 Occurrences starting 07/28/2020 until 07/28/2021 [facility] Comment on above: 1 Occurrences starting 07/28/2020 until 07/28/2021 Immunizations Immunization Date Immunization Notes Care Provider Derrick gomez 06-14-2020 Moderna SARS-CoV-2 Vaccination [facility] on [facility] 05-17-2020 Moderna SARS-CoV-2 Vaccination [facility] on [facility] 01-28-2020 Seasonal, quadrivale nt, recombinant, injectable influenza vaccine, preservative free [facility] 12-08-2019 diphtheria, tetanus toxoids and acellular pertussis vaccine, unspecified formulation [facility] 12-08-2019 tetanus toxoid, redu cielo diphtheria toxoid, and acellular pertussis vaccine, adsorbed [facility] 12-27-2017 influenza, high dose seasonal, preservative-free; Translations: [INFLUENZA IIV3 HIGH DOSE 65 AND OLDER] [facility] 03-02-2015 influenza virus vacc ine, unspecified formulation Ceasar [facility] 03-02-2015 influenza, injectabl e, quadrivalent, preservative free [facility] 03-02-2015 pneumococcal conjuga te vaccine, 13 valent [facility] 03-02-2015 pneumococcal polysac charide vaccine, 23 valent Ceasar [facility] 03-17-2002 influenza virus vacc ine, unspecified formulation [facility] Payers Date Payer Category Payer Self-pay 2015 Unknown [id number] 2015 Unknown [facility] [id number] 2015-Present [id number] 2015 Unknown [facility] [id number] 2015-Present [phone] [address] [place] [address] [id number] 2000 Medicare [id number] 2000 Medicare MEDICARE MEDICAR E PART A & B [id number] 2000-Present [place] [id number] 2000 Medicare MEDICARE MEDICAR E PART A & B [id number] 2000-Present [phone] [facility] [id number] PART A CLAIMS [address] [address] [place] [address] [id number] 2000 Unknown [id number] 2000 Medicare [id number] 1935 Unknown [id number] 1935 Unknown [id number] 1935 Unknown [id number] 1935 Unknown [id number] 1935 Unknown [id number] Medicare xxxxxxxxxx [id number] Unknown [id number] Unknown [id number] Unknown [id number] Social History Date Type Detail Facility Start: 12-13-2016 End: 06-26-2017 Tobacco smoking status NHIS Never smoker [facility] Start: 1935 Sex Assigned At Not on file [facility] Work Phone: Start: 01-06-2016 Alcohol Comment very seldom [facility] Start: 06-26-2017 End: 01-13-2019 Alcohol intake Current drinker of alcohol (finding) [facility] Start: 12-18-2018 End: 07-28-2020 History SDOH Social Connections Phone 3 [facility] Start: 12-18-2018 End: 12-08-2019 History SDOH Food Worry 1 [facility] Start: 12-13-2016 End: 01-15-2020 Tobacco use and exposure Never used [facility] Start: 01-15-2020 End: 07-28-2020 Alcohol intake Ex-drinker (finding) [facility] Start: 12-08-2019 History SDOH Physica l Activity DPW 0 [facility] Start: 12-08-2019 History SDOH Education 14 [facility] Start: 12-08-2019 History SDOH Financial 5 [facility] Start: 12-08-2019 End: 07-28-2020 History SDOH IPV Fear 2 [facility] Start: 06-28-2020 End: 07-28-2020 Exposure to SARS-CoV-2 (event) Not sure [facility] Start: 06-26-2017 End: 07-28-2020 Alcohol intake [facility] Clinical Note 12-27-2024 Note Date & Type Note Facility 12-27-2024 Note HNO ID: [id number] Author: JOAN CARRIZALES RN Service: ? Author Type: Registered Nurse Type: Nursing Progress Note Filed: 12/27/2024 12:22 Note Text: Report was given to juan at [facility] Clinical Note 12-27-2024 Note Date & Type Note Facility 12-27-2024 Note HNO ID: [id number] Author: ANDRE SAN LSW Service: Care Management Author Type: Estate Planning Paralegal Type: Care Mgt Progress Note Filed: 12/27/2024 11:32 Note Text: CARE MANAGEMENT DISCHARGE NOTE SERVICE DATE: December 27, 2024 SERVICE TIME: 11:28 AM Admission Date: 12/24/2024 LOS: 3 days Discharge Arrangement Services Arranged Provider Name: [facility] Caregiver Assessment Transportation Arrangements Transportation Arrangements: Car Date of Trip: 12/27/24 Time of Trip: 1300 Is Patient Medicaid Pending?: No Was transportation financial coverage discussed with family?: Patient, Family Mine Wedge Sawyer Location: [place] Destination: [facility] Financial Care Management Responsibility: None Handoff Communication: Handoff to: Other Caregiver Other Caregiver Name/Phone: Daughter confirmed pt has homecare services through [facility]. F2f included in d/c envelope Additional Information: CM notified regarding d/c today, return to [facility]. Family confirmed pt's son, Yandel Good, will be transporting pt back to the facility. Envelope with d/c information updated. CM will follow, as needed. SIGNATURE: DALILA Moy, TED PATIENT NAME: Na Good DATE: December 27, 2024 TIME: 11:28 AM [facility] Progress note 12-27-2024 Note Date & Type Note Facility 12-27-2024 Note HNO ID: [id number] Author: LIDIA ARMENTA APRN.CNP Service: Cardiovascular Medicine Author Type: Nurse Practitioner Type: Progress Notes Filed: 12/27/2024 09:43 Note Text: Heart and Vascular [place] Domenic Rayo Department of Cardiovascular Medicine SECTION OF [facility] Progress Note Elements of this note, including [...] MD Consulting Physician: Liam Smith MD Primary Assistant Professor Of Life Sciences: SERVICE DATE: December 27, 2024 Interval History: Patient seen and examined sitting up in bed - son at bedside Patient with no cardiac complaints this AM Patient [place] Overall improved since admission Discharge was held up yesterday due to lower BP readings Pending possible discharge today back to [place]. 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 Matthews and nursing staff. Lidia Armenta APRN.INSTRUCTIONAL PARAPROFESSIONAL 12/27/2024 7:36 AM PAST MEDICAL HISTORY PAST [...] HEENT: EOM's intact (more content not included)... [facility] Progress note 12-26-2024 Note Date & Type Note Facility 12-26-2024 Note HNO ID: [id number] Author: LIAM SMITH MD Service: General Internal [...] -- 12/24/24 1830 activity - mobilize patient (ny,ms) VTE Prophylaxis: VTE prophylaxis appropriate SIGNATURE: Liam Smith MD PATIENT NAME: Na Good DATE: December 26, 2024 TIME: 1:54 PM [facility] Clinical Note 12-25-2024 Note Date & Type Note Facility 12-25-2024 Note HNO ID: [id number] Author: CATHLEEN THOMAS LSW Service: Care Management Author Type: Estate Planning Paralegal Type: Care Mgt Initial Assessment Filed: 12/25/2024 [...] Practice Potential Transition Plans Other: See Comment ([facility]) Advance Directives Current Advance Directive: Health Care Power of Resume Specialist In Chart: No Axle Turner Attempted to Assist with AD Completion: Yes Action: Other: See Comment (Asked RN at [facility] to fax to dept.) Current Living Arrangements and Support Lives with: Alone Type of Residence: Assisted Living Facility Does the patient have to climb stairs at home?: No Care Facility Name: [facility] Support: Children, Family members How do you manage to accomplish the following: Independent: Dress, Going to the bathroom Needs Assistance: Ambulation, Bathe/Shower, Meals/Meal Prep, Medication Management Dependent: Transportation to appointments/community Current Services/Equipment Current Post-Acute Service(s): DME Current DME Type: Other: See Comment (walking sticks) Discharge Planning Patient Goal(s): General wellness [place] of Choice Explained: [place] of Choice Given: Yes Level of Care Discussed: Other: See Comment ([facility]) Are you interested in bedside delivery of your medications? No Discharge Planning Participant(s): Patient, Other person(s) Name/Relationship: RN from [facility] Patient/Family Comments: Caregiver Assessment: Caregiver is ready, willing and able to meet the patient's needs as recommended by the inter-professional team: Yes Name of Caregiver: [facility] Transport at Discharge: Transportation Arrangements: Ambulance Transportation Agency and Phone #:: [facility] [phone] Needs Prior to Discharge: Needs Prior to Discharge: To Be Determined, Discharge Transportation, Other: See Comment, OT/PT Evaluation (medical clearance) Post-Acute Discharge Plan: EMR reviewed. CMSW called and spoke to RN at [facility]; introduced self/role. RN states that she will fax dept POA paperwork. Patient is an 89 year old female who presents with acute on chronic congestive heart failure with PMH of chf (per chart review -July 2024 EF 28%), LV thrombus (eliquis), HTN, tremors, macular degeneration, CAD, [place], and insomnia. RN states that they patient uses [facility] for medications but is unable to confirm which location. 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 Patient is from with [facility] and needs assistance with ADLs. MMT to transport at discharge. Patient is safe and has her needs met. CM assigned will continue to follow for discharge needs. Updated 10:22 am: CMSW met with the patient and patient's daughter, Janelle, at bedside to confirm discharge plan of patient returning to [facility] at discharge; her son will transport her. SIGNATURE: DALILA Salinas PATIENT NAME: Na Good DATE: December 25, 2024 TIME: 9:19 AM [facility] Note 09-21-2020 Telephone Encounter - Shante Hargrove LPN - 09/21/2020 4:05 PM EDT Note Date & Type Note Facility 09-21-2020 Miscellaneous Notes Na called for a refill Pending Prescriptions: Disp Refills lisinopriL (PRINIVIL,ZESTRIL) 20 MG [id number] tab*3 Sig: Take 1 (one) tablet (20 [...] 07/28/2020 Upcoming appt 01/31/2021 Please send to [facility] - [address] [phone] [facility] [address] [place] [address] Please advise documented in this encounter [facility] Telephone encounter Note 11-09-2017 Telephone Encounter - Theresa Berg MA - 11/09/2017 9:59 AM EDT Note Date & Type Note Facility 11-09-2017 Telephone encounter Note Form atting of this note might be different from the original. Second VM left for pt. [facility] Note 11-09-2017 Telephone Encounter - Theresa [...] 20 mg tab. documented in this encounter [facility] Telephone encounter Note 11-07-2017 Telephone Encounter - [...] received. Medication requested; lisinopril 20 mg tab. [facility] Evaluation note Note Date & Type Note Facility Evaluation note Diagnosis Benign essential hypertension Essential hypertension, benign Chronic combined systolic and diastolic congestive heart failure (HCC) Insomnia, unspecified type documented in this encounter [facility] Assessments Diagnosis Essential hypertension - Ana cecile [...] another for noisy times like a dinner alliance party in a restaurant. You can change [...] also different styles of hearing aids. A ybavyo-eky-obu (BTE) hearing aid connects to a plastic [...] be replaced as the child grows. An qh-jwv-ckuou (ITC) hearing aid fits into the ear [...] can go to your doctor or an size changer. He or she will do a hearing test and help you decide which type and style of hearing aid may be best for you. But, if your hearing loss is mild to moderate, you might consider buying a good quality tjvd-rky-udabxgy hearing aid, which may be called a [...] Log into your personal health record on [email or web address] and enter K597 in the "Education" box to learn more about "Learning About Hearing Aids." Current as of: February 10, 2018 Content Version: [id number] [employer]. Care instructions adapted under license by your healthcare professional. If you have questions about a medical condition or this instruction, always ask your healthcare professional. [employer] disclaims any warranty or liability for your use of this information. documented in this encounter* Patient Instructions* Danii Chen RN - 01/13/2019 10:29 AM EDT .How to contact your Care Team: Provider: Rubin Chirinos MD [facility] Nurse: Danii Chen RN In case of an emergency please call 911. REFILLS: When in need for refills please call your care team or the office at [phone]. 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 [address] Name: Na Good : 1935 Date: 12/04/18 [...] for hearing aid use at Dr. Arce's discretion.[place] for hearing aid fitting pending otologic clearance at patient's discretion. Use of good communication strategies such as xwbe-gm-ozdu communication and reduction of background noise when possible. The above was explained to the patient and or their guardian and they expressed understanding. Electronically signed by: Clari Borden, DEVON-Jose 12/04/18 11:34 AM documented in this encounter* [...] and external ear canal shape. CPT code 00376.50. With the patient in a slightly reclained [...] review the comprehensive hearing test results in [facility] and provided an interpretation to the patient. Indeed it confirmed ZENA symmetric down slopping increase of the GAS LOAD DISPATCHER thresholds, normal Type A tympanograms and decreased speech discrimination. 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 Information on the devices and referral to the size changer arranged. Assessment/Plan: Bilateral symmetric mild sensorineural hearing [...] 01/13/2019 11:50 AM EDT OFFICE CONSULTATION NOTE [facility] [address] ([address]) [facility] [address] [facility] [phone] Physicians: David Ludwig MD Subjective: Na Good [...] Hypertension Cardiomyopathy (Hcc) nonischemic; EF 20-25% in 1999 increased to 40% in 2013 Objective: Physical Exam Constitutional: She is oriented [...] 01/15/2020 3:33 PM EDT OFFICE CONSULTATION NOTE [facility] [address] ([address]) [facility] [address] [facility] [phone] Physicians: David Ludwig MD Subjective: Na Good [...] Directive (Living Will and/or Durable Power of Resume Specialist for Health Care)?: Yes What is your [...] Three Word Registration Version Used: Version 1: Ibeth Roper, Chair Step 2: Clock Drawing Step 2 [...] conjunction with the immunization order to satisfy [place] Board of Pharmacy Positive ID requirements for [...] week Gets together: Twice a week Attends protestant service: Not on file Active member of [...] [employer] (DME) [facility] - [address] [facility] [address] [facility] [address] [address] - [address] [facility] [address] [facility] [address] Objective Blood pressure 133/70, pulse 98, temperature [...] Diagnoses Presbycusis, unspecified laterality Oscar Mendes MD [address] [place] [id number] Ceasar Arce MD [address] [address] Status Reason Specialty Diagnoses / Procedures Referred By Contact Referred To Contact Pending Review Cardiology Diagnoses Bruit of left carotid artery Procedures Ultrasound doppler carotid Rubin Chirinos MD [address] [place] [address] Additional Source Comments Assessment & Plan Note [...] decompensated heart failure in the clinic today. [place] [employer] functional class I-II. She is [...] section and content) DATE CREATED AUTHOR 04/01/2018 [facility] DATE CREATED AUTHOR AUTHOR'S ORGANIZ ATION 02/04/2020 [facility] DATE CREATED AUTHOR AUTHOR'S ORGANIZ ATION 01/15/2021 [facility] DATE CREATED AUTHOR AUTHOR'S ORGANIZ ATION 12/28/2024 [facility] DATE CREATED AUTHOR AUTHOR'S ORGANIZ ATION 12/29/2024 [facility] Reason for Visit (unrecogniz ed section and content) Reason Comments Congestive Heart Failure Hypertension Hyperlipidemia Reason Comments Hearing Loss Pt req to see Dr JIGNESH Aguilar PT Status Reason Specialty Diagnoses / Procedures Referred By Contact Referred To Contact Closed Otolaryngology Diagnoses Presbycusis, unspecified laterality Oscar Mendes MD [facility] [place] [address] Ceasar Arce MD [address] [place] [address] Reason Comments Medicare Wellness Visit VM to schedule M W Status Reason Specialty Diagnoses / Procedures Referred By Contact Referred To Contact Closed Specialty Services Required/Patient' s Best Interest Audiology Diagnoses Sudden hearing loss, unspecified laterality Ceasar Arce MD [address] [facility] [address] [place] [address] Kriss Marcelo AuD Reason Comments Hearing Loss left ear Reason Comments Follow-up Denies Chest pain,pr essure,SOB,Swelling Reason Comments Hypertension Hyperlipidemia Hypothyroidism Reason Comments Follow-up yearly Status Reason Specialty Diagnoses / Procedures Referred By Contact Referred To Contact Pending Review Cardiology Diagnoses Bruit of left carotid artery Procedures Ultrasound doppler carotid Rubin Chirinos MD [address] [place] [id number] Reason Onset Date Comments Medicare Wellness Visit Fall Risk Screening 12/08/2019 Reason Comments Hypertension Hyperlipidemia Congestive Heart Failure Reason Onset Date Comments Medication Refill 09/21/2020 Reason Comments Medication Refill Care Teams (unrecognized sec tion and content) Municipal Services Manager Relationship Specialty Start Date End Date Hernandez Anika VERONICA Joe PCP - General Nurse Practitioner 06/15/17 11/28/17 David Ludwig MD PCP - General Family Medicine 11/29/17 David Ludwig MD [address] [place] [id number] PCP - [facility] Attributed Provider 07/22/20 04/22/21 FOR RECORDS PERTAINING [...] BE BASED ON THE PRIMARY CLINICAL RECORDS. [employer] provides no warranty or guarantee of the accuracy or completeness of information in this document.
[2025-01-05 08:20] LABS: Anion Gap 8 (5-15); BUN 24 mg/dL (4-19); BUN/Creat Ratio 21.7 RATIO (10-20); Calcium,Total 8.8 mg/dL (7.6-11.0); Carbon Dioxide 26.2 mmol/L (21.0-32.0); Chloride 107 mmol/L (98-108); Glucose 75 mg/dL (70-99); Potassium 4.1 mmol/L (3.3-5.1)
== END ==
LOC: OLS.ACH2 04:00
PROVIDERS: Referring Provider Internal Medicine; Visit Provider Internal Medicine
DX: I50.22 Chronic systolic (congestive) heart failure (principal)
CPT/HCPCS: 36415; 80048

== ENCOUNTER → 2025-02-19 05:00 | Outpatient (REF) | payer MEDICARE, OTHER, SELFPAY ==
--- OUTSIDE RECORDS SUMMARY | 2025-02-19 04:12 | XMS RPT_ITS | CCD ---
Author Organization [facility] Care Team Providers [facility] Nurse Name Role Phone Anika Hernandez Unavailable Unavailable [...] Primary Care Provider David Ludwig MD Unavailable Deperro OLS, Alexey Referring Unavailable Deperro OLS, Alexey Attending Unavailable Deperro OLS, Alexey Referring Unavailable Deperro OLS, Alexey Attending Unavailable Deperro OLS, Alexey Attending Unavailable Deperro OLS, Alexey Attending Unavailable JOVANI COCHRAN Attending Unavailable LIAM SMITH Admitting Unavailable ROJAS MATTHEWS Consulting Unavailable JOHNSON WATSON Primary Care Unavailab LIAM Viramontes Attending Unavailable PROVIDER, UNKNOWN Attending Unavailable LEELA VYAS Consulting Unavailable JOHNSON WATSON Primary Care Unavailab ANIKA Mosher Admitting Unavailable Allergies Allergy Classification Reported Allergen(s) Allergy Type Date of Onset Reaction(s) Facility Corticosteroids (1 source) Cortisone Drug Allergy [address] [facility] (20 sources) cortisone; Translations: [CORTISONE] Propensity to adverse reactions to drug [address] [facility] Work Phone: Medications Current Medications Medication [...] (two) times a day. Active Flu Vaccine [id number](65yr Up)(Pf)180 McG/0.5 Ml Intramuscular Syringe (1 source) Start: 12-27-2017 End: 12-27-2017 flu vaccine tv 2017, 65yr up,,PF, (FLUZONE HIGH DOSE) syringe Indications: Need for influenza vaccination Sign this order in conjunction with the immunization order to satisfy [place] Board [employer] Pharmacy Positive ID requirements for [...] (20 sources) Essential hypertension; Translations: [Hypertensive disorder] Onset: 02-04-2025 06-26-2017 Chronic Fluid and electrolyte disorders (1 source) Fluid overload, unspecified; Translations: [Hypervolemia, unspecified hypervolemia type] Onset: 12-24-2024 Episodic Heart valve disorders (20 sources) Mitral valve regurgitation; Translations: [Aortic valve regurgitation] 01-06-2016 Chronic Mood disorders (1 source) Mood disorder; Translations: [Mood disorder (HCC)] Chronic Nonspecific chest pain (1 source) Chest pain, unspecified; Translations: [Chest pain, unspecified type] Onset: 01-27-2025 Episodic Other bone disease and musculoskeletal deformities (8 [...] Episodic Other lower respiratory disease (1 source) Shortness of breath; Translations: [Shortness of breath] Onset: 01-27-2025 Episodic Other lower respiratory disease (1 source) Acute pulmonary edema; Translations: [Acute pulmonary edema (HCC)] Onset: 12-24-2024 Episodic Other lower respiratory disease (1 source) Orthopnea; Translations: [Orthopnea] Onset: 12-24-2024 Episodic Iza-; endo-; and myocarditis; cardiomyopathy (20 sources) Cardiomyopathy; Translations: [Cardiomyopathy, unspecified] Onset: 04-23-1999 01-06-2016 Chronic Residual codes; unclassified (1 source) Sleep disorder, unspecified; Translations: [Difficulty sleeping] Onset: 01-27-2025 Episodic Residual codes; unclassified (1 source) Requires vaccination; [...] Test Name Value Interpretation Reference Range Facility [facility] 02-04-2025 [facility] FLORENTINOUDAYNA Wendi ([id number]) 1935 F Date Time Provider Department 02/04/25 10:00 AM JOVANI COCHRAN [facility] During your visit today, we recorded the following information about you: Pulse Blood pressure Weight 89/minute 132/79 53.6 kg Jovani Cochran APRN.CNP 02/04/2025 1:00 PM Signed [facility] [place] [facility] OUTPATIENT VISIT DATE February 04, 2025 OUTPATIENT VISIT TYPE NEW PRIMARY CARE PHYSICIAN: Alexey Vinson Sr, DO REFERRING PHYSICIAN: No referring provider defined for this encounter. 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 The patient was admitted to the ED on 01/27 with dyspnea, insomnia, and chest tightness. She had been previously hospitalized in December for a heart failure exacerbation. In the ED, she was found to have coarse breath sounds at the bilateral bases. An EKG showed normal sinus rhythm with a left bundle branch block and a rate of 92 bpm. NT-proBNP was significantly elevated at 30,208 pg/mL. A chest X-ray revealed central bilateral hazy interstitial infiltrates with bilateral opacification suggestive of venous congestion with associated pleural effusions. CBC and CMP were unremarkable. She was given IV Lasix and admitted for further management. During hospitalization, she was adequately diuresed. She also demonstrated fatigue and weakness, and a UA revealed a UTI, for which she was started on Keflex. She was discharged on 01/29 back to her assisted living facility with Keflex for 5 days and her home medications, including Aldactone, Lasix, Jardiance, Toprol, and enalapril. Patient is a poor historian and is accompanied by staff from facility. She reports improvement in her symptoms since discharge. She denies current dyspnea, chest pain, orthopnea, paroxysmal nocturnal dyspnea, leg swelling, dizziness, syncope, palpitations, or significant fatigue. She occasionally experiences a non-productive cough. She denies any recent falls. She sleeps in a bed using two pillows and does not wake up due to breathing difficulties. She eats three meals a day and denies using a salt shaker. She drinks coffee but limits her fluid intake to less than 64 ounces per day. The facility that she lives in is monitoring her weight daily, which has remained stable. Her weight was 125 lbs at discharge and is currently 118 lbs. PAST CARDIAC HISTORY: Heart failure: systolic Non-ischemic, subtype: Hypertensive. Her cardiac history is also significant for HTN, hyperlipidemia, LV thrombus, NICM. Device: NA. PAST MEDICAL HISTORY Diagnosis Date ASCVD (arteriosclerotic [...] FLP TUBE ABDL/VAG APPR UNI/BI Tubal ligation SOCIAL HISTORY[1] FAMILY HISTORY Problem Relation Age of Onset Hypertension Father ALLERGIES Allergen Reactions Cortisone facial swelling after IM injection CURRENT MEDICATIONS: Current Outpatient Medications Medication Sig Dispense Refill furosemide (LASIX) 20 mg tablet Take 1 tablet by mouth once daily. May take an additional 20 mg as needed for weight gain, increased Shortness of Breath, or increased edema. 90 tablet 0 enalapril (VASOTEC) 5 mg tablet Take 1 tablet by mouth two times a day. 60 tablet 0 apixaban (ELIQUIS) 2.5 mg tab(s) Take 2.5 mg by mouth two times a day. JARDIANCE 10 mg tablet Take 10 mg by mouth daily with breakfast. mirtazapine (REMERON) 30 mg tablet Take 30 mg by mouth daily at bedtime. rosuvastatin (CRESTOR) 5 mg tablet Take 5 mg by mouth once daily. ALDACTONE 25 mg tablet Take 12.5 mg by mouth once daily. melatonin 2.5 mg chew Take 2.5 mg by mouth daily at bedtime. senna-docusate (SENEXON-S) 8.6-50 mg per tablet Take 1 tablet by mouth once daily as needed for constipation. Cholecalciferol, Vitamin D3, 25 mcg (1,000 unit) cap Take 1,000 Units by mouth once daily. TOPROL XL 25 MG 24 HR TAB Take one(1) tablet daily. 125 0 MULTIVITAMIN TABLET Take one(1) tablet daily. 0 CALCIUM + D 600MG TABLET Take one(1) tablet two(2) times daily. 0 No curre (more content not included)... [facility] CNCOon 01-29-2025 CNCO Letter Text [facility] CNDSon 01-29-2025 CNDS HNO ID: [id number] Author: JULIO CESAR ALVAREZ MD Service: Hospital Medicine Author Type: Physician Type: Discharge Summary Filed: 01/29/2025 16:43 Note Text: DISCHARGE SUMMARY PATIENT NAME: Na Good ADMISSION DATE: 01/27/2025 DISCHARGE DATE: 01/29/2025 ATTENDING PHYSICIAN: No att. providers found Code Status: Prior PCP: Alexey Vinson Sr, DO Highest Readmission Risk Score: 23 The 30 day readmissions risk score is derived from an internally validated risk model which evaluates patient level characteristics, utilization history, medication orders and lab results up until the day of discharge. Patients with a score of 39 or above are considered highest risk for readmission. Specific patient level drivers will be listed at the bottom of the summary. TRANSITIONS OF CARE CRITICAL ISSUES: SOUTH MEDICATION CHANGES: Keflex X 3 days Lab monitoring: Patient benefit from repeat CBC, renal function and electrolytes on next outpatient visit. LABS AND PROCEDURES PENDING AT DISCHARGE: Follow-up: Patient will need follow-up with primary care physician soon after discharge from hospital. REASON FOR HOSPITALIZATION/FINAL DIAGNOSIS: CHF exacerbation, generalized weakness, UTI HOSPITAL PROBLEMS: Active Hospital Problems Diagnosis POA CHF (congestive heart failure), NYHA class I, acute on chronic, combined (HCC) Yes Chest pain Unknown HFrEF (heart failure with reduced ejection fraction) ([facility]) Unknown Difficulty sleeping Unknown Shortness of breath Yes Resolved Hospital Problems No resolved problems to display. HOSPITAL COURSE: Na Good is a 89-year-old female PMH CHF, dilated cardiomyopathy, presents today for shortness of breath and generalized fatigue. History currently chart review and discussing with patient. Patient is not the greatest historian. Admitted to the hospital for treatment of acute exacerbation of congestive heart failure. Started on IV diuresis. Cardiology was consulted and patient returned back to euvolemia. Due to concern for patient's overall weakness urinary cultures were sent and returned positive. Based on urine cultures antibiotics were started. Patient to complete p.o. course on discharge. Physical therapy recommended home health. CM to set up. During patient's hospitalization called patient's power of patent attorney and explained hospital course and need for follow up. Patient's hospital course and need for follow-up were explained to patient as well who is in understanding. Patient will need follow-up with primary care physician and cardiology soon after discharge from hospital. OPERATIONS/PROCEDURE DURING THIS HOSPITALIZATION: * No surgery found * CONSULTS DURING HOSPITALIZATION: Treatment Team: Primary Service: , [facility] PATIENT CONDITION AT DISCHARGE: Stable DISCHARGE DISPOSITION: Assisted Living Facility Physical Exam Performed Constitutional: In no apparent distress. Vital signs stable. Generalized fatigue Eye: Pupils are equal. Extraocular motions intact ENMT: No visible external trauma. Hearing grossly intact. Neck: No Jugular Vein Distention Cardiovascular: Regular rate and rhythm. S1 and S2 Respiratory: Reduced breath sounds Gastrointestinal: Soft, without detectable tenderness. No sign of distention. No rebound or guarding, no masses palpated. Bowel sounds present Genitourinary: Bladder soft Musculoskeletal: Reduced range of motion of all major joints. Extremities without clubbing, without cyanosis, without edema Integumentary: No rash, no bruising, no lesions Neurologic: Oriented to person, place and time. No focal sensory or strength deficits. Speech normal. Follows commands Psychiatric: Calm, cooperative, appropriate WOUND/SURGICAL SITE CARE: None SUPPLIES OR EQUIPMENT: None DIET: Low Salt Low Cholesterol ACTIVITY AND EXERCISE: Limited to: As tolerated FOLLOW UP APPOINTMENTS: Future Appointments Date Time Provider Department Center 02/04/2025 10:00 AM Jovani Cochran APRN.CNP [facility] 02/25/2025 1:30 PM Lidia Armenta APRN.CNP [facility] Discharge Information Row Name ED to Hosp-Admission (Discharged) from 01/27/2025 in [facility] Medical Follow-Up Appointment Provider Name PCP: Alexey Espino DO - Other Follow-Up Type [facility]: [facility] - ALLERGIES Allergen Reactions Cortisone facial swelling after IM injection DISCHARGE MEDICATION: Medication List START taking these medications cephALEXin 500 mg capsule Commonly known as: KEFLEX Take 1 capsule by mouth two times a day for 5 doses. CHANGE how you take these medications enalapril 5 mg tablet Commonly known as: VASOTEC Take 1 tablet by mouth two times a day. What changed: medication strength how much to take CONTINUE taking these medications ALDACTONE 25 mg tablet Generic drug: spironola (more content not included)... Normal [facility] NURSING PROGon 01-29-2025 NURSING PROG HNO ID: [id number] Author: RAULITO CHAVEZ RN Service: Nursing Author Type: Registered Nurse Type: Nursing Progress Note Filed: 01/29/2025 15:28 Note Text: PATIENT EDUCATION HEART FAILURE PATIENT NAME: Na Good PATIENT LOCATION: [place] [address] [id number] SURVIVAL SKILLS: Low Sodium Diet Weight Monitoring and Dry Weight Importance of Follow Up after Discharge Fluid Restriction, if applicable Heart Failure Medications Symptom Management related to heart failure Activity / Physical Exercise Recommendations Smoking cessation counseling if applicable When Patient Should Call Provider Pt w/ KO[place], and poor vision; communication is difficult. She is unsure why she is here and wants to go home. Pt last seen by this department 12/24/24. I met w/ pt's son at that time. All children are of [facility] [place]. Survival Skills were discussed w/ son. Son stated DRY weight b/t 122-125lb, pt weighted 122lb.@ that time. Today's weight is 125lb. Electronically Signed By: Raulito Chavez [facility] Basic metabolic 2000 panelon 01-28-2025 Anion gap [Moles/Vol] 11 mmol/L Normal 8-15 [facility] Comment on above: Order Comment: Vita florez Type: BLOOD SPECIMENOrdering Facility: [facility] Address: [address] [place] [address] Performed By: #### 2 4321-2 ####[facility] LABORATORYCLIA [id number] [place] [address] [place] Calcium [Mass/Vol] 8.9 mg/dL Normal 8.5-10.2 [facility] Comment on above: Order Comment: Vita florez Type: BLOOD SPECIMENOrdering Facility: [facility] Address: [address] [place] [address] Performed By: #### 2 4321-2 ####[facility]ORATORYCLIA [id number] [place] [address] [place] Chloride [Moles/Vol] 103 mmol/L Normal 98-107 [facility] Comment on above: Order Comment: Vita florez Type: BLOOD SPECIMENOrdering Facility: [facility] Address: [address] [place] [address] Performed By: #### 2 4321-2 ####[facility] LABORATORYCLIA [id number] [place] [address] [place] CO2 [Moles/Vol] 27 mmol/L Normal 22-30 [facility] Comment on above: Order Comment: Speci men Type: BLOOD SPECIMENOrdering Facility: [facility] Address: [address] [place] [address] Performed By: #### 2 4321-2 ####[facility] LABORATORYCLIA [id number] [address] STATES OF [facility] Creatinine [Mass/Vol] 0.99 mg/dL High 0.58-0.96 [facility] Comment on above: Order Comment: Vita florez Type: BLOOD SPECIMENOrdering Facility: [facility] Address: [address] [place] [address] Performed By: #### 2 4321-2 ####[facility] LABORATORYCLIA [id number] [address] [place] eGFRcr SerPlBld CKD-EPI 2020 55 mL/min/1.73m??? Low >=60 [facility] Comment on above: Order Comment: Vita gautam Type: BLOOD SPECIMENOrdering Facility: [facility] Address: [address] [place] [address] Result Comment: Radha mated Glomerular Filtration Rate [...] Performed By: #### 2 4321-2 ####[facility] LABORATORYCLIA [id number] [address] [place] Glucose [Mass/Vol] 83 mg/dL Normal 74-99 [facility] Comment on above: Order Comment: Vita [facility] Type: BLOOD SPECIMENOrdering Facility: [facility] Address: [address] [place] [address] Result Comment: The [place] [employer] Association (ADA) provides guidance for cutoff [...] Standards of Medical Care in Diabetes 2016, [place] [employer]. Diabetes Care. 2016.39(Suppl 1). Performed By: #### 2 4321-2 ####[facility] LABORATORYCLIA [id number] [address] [place] Potassium [Moles/Vol] 4.0 mmol/L Normal 3.7-5.1 [facility] Comment on above: Order Comment: Valei gautam Type: BLOOD SPECIMENOrdering Facility: [facility] Address: [address] [place] [address] Performed By: #### 2 4321-2 ####[facility] LABORATORYCLIA [id number] [address] [place] Sodium [Moles/Vol] 141 mmol/L Normal 136-144 [facility] Comment on above: Order Comment: Speci men Type: BLOOD SPECIMENOrdering Facility: [facility] Address: [address] [place] [address] Performed By: #### 2 4321-2 ####[facility] LABORATORYCLIA [id number] [address] [place] Urea nitrogen [Mass/Vol] 25 mg/dL High 7-21 [facility] Comment on above: Order Comment: Vita florez Type: BLOOD SPECIMENOrdering Facility: [facility] Address: [address] [place] [address] Performed By: #### 2 4321-2 ####[facility] LABORATORYCLIA [id number] [place] [address] [place] CBC panel Auto (Bld)on 01-28 Erythrocyte distribution width (RBC) [Ratio] 15.8 % High 11.5-15.0 [facility] Comment on above: Order Comment: Valei men Type: BLOOD SPECIMENOrdering Facility: [facility] Address: [address] [place] [address] Performed By: #### 5 8410-2 ####[facility] LABORATORYCLIA [id number] [address] Hematocrit (Bld) [Volume fraction] 41.1 % Normal 36.0-46.0 [facility] Comment on above: Order Comment: Speci men Type: BLOOD SPECIMENOrdering Facility: [facility] Address: [address] [place] [address] Performed By: #### 5 8410-2 ####[facility] LABORATORYCLIA [id number] [address] Hemoglobin (Bld) [Mass/Vol] 13.7 g/dL Normal 11.5-15.5 [facility] Comment on above: Order Comment: Speci men Type: BLOOD SPECIMENOrdering Facility: [facility] Address: [address] [place] [address] Performed By: #### 5 8410-2 ####[facility] LABORATORYCLIA [id number] [address] MCH (RBC) [Entitic mass] 29.6 pg Normal 26.0-34.0 [facility] Comment on above: Order Comment: Speci men Type: BLOOD SPECIMENOrdering Facility: [facility] Address: [address] [place] [address] Performed By: #### 5 8410-2 ####[facility] LABORATORYCLIA [id number] [address] MCHC (RBC) [Mass/Vol] 33.3 g/dL Normal 30.5-36.0 [facility] Comment on above: Order Comment: Speci men Type: BLOOD SPECIMENOrdering Facility: [facility] Address: [address] [place] [address] Performed By: #### 5 8410-2 ####[facility] LABORATORYCLIA [id number] [address] MCV (RBC) [Entitic vol] 88.8 fL Normal 80.0-100.0 [facility] Comment on above: Order Comment: Speci men Type: BLOOD SPECIMENOrdering Facility: [facility] Address: [address] [place] [address] Performed By: #### 5 8410-2 ####[facility] LABORATORYCLIA [id number] [place] [address] [place] Nucleated RBC (Bld) [#/Vol] 10*3/uL Normal <0.01 [facility] Comment on above: Order Comment: Speci men Type: BLOOD SPECIMENOrdering Facility: [facility] Address: [address] [place] [address] Performed By: #### 5 8410-2 ####[facility] LABORATORYCLIA [id number] [place] [address] [place] Platelet mean volume (Bld) [Entitic vol] 10.9 fL Normal 9.0-12.7 [facility] Comment on above: Order Comment: Speci men Type: BLOOD SPECIMENOrdering Facility: [facility] Address: [address] [place] [address] Performed By: #### 5 8410-2 ####[facility] LABORATORYCLIA [id number] [address] [place] Platelets (Bld) [#/Vol] 330 10*3/uL Normal 150-400 [facility] Comment on above: Order Comment: Speci men Type: BLOOD SPECIMENOrdering Facility: [facility] Address: [address] [place] [address] Performed By: #### 5 8410-2 ####[facility] LABORATORYCLIA [id number] [place] [address] [place] RBC (Bld) [#/Vol] 4.63 10*6/uL Normal 3.90-5.20 [facility] Comment on above: Order Comment: Speci men Type: BLOOD SPECIMENOrdering Facility: [facility] Address: [address] [place] [address] Performed By: #### 5 8410-2 ####[facility] LABORATORYCLIA [id number] [address] [place] WBC (Bld) [#/Vol] 9.52 10*3/uL Normal 3.70-11.00 [facility] Comment on above: Order Comment: Speci men Type: BLOOD SPECIMENOrdering Facility: [facility] Address: [address], [place] [id number] Performed By: #### 5 8410-2 ####[facility] LABORATORYCLIA [id number] [place] [address] [facility] CONSULTon 01-28-2025 CONSULT HNO ID: [id number] Author: AMY MARTINEZ MD Service: Cardiovascular Disease Author Type: Physician Type: Consults Filed: 01/28/2025 15:18 Note Text: [facility] CARDIOVASCULAR MEDICINE CONSULT NOTE (Template ID [id number]) Na Good [id number] PRIMARY SERVICE: Internal Medicine CONSULTING SERVICE: Cardiovascular Medicine: Heart Failure DATE OF ADMISSION: 01/27/2025 DATE OF CONSULT: 01/28/2025 REASON FOR CONSULT Heart failure HISTORY OF PRESENT ILLNESS Na Good is a 89 year old female with history of dilated cardiomyopathy (EF 25% on echo 12/26/2024), Hypertension, carotid artery plaque (carotid artery duplex 12/27/22), moderate aortic regurgitation (echo 12/26/2024), mixed hyperlipidemia, hyperthyroidism and insomnia She presented to ER with shortness of Breath . She denies any chest pain, palpitations, leg swelling. Her pro BNP was elevated and her CXR shows some pulmonary congestion and pleural effusion, so IV lasix was prescribed. She reported that she still has some shortness of breath. She also reported that she had a similar episode like this a few months ago. She is confused with hearing and vision difficulties Her urinalysis is significant for +3 glucosuria, pyuria and moderate bacteria She is on eliques because her echo 08/07/2024 showed LV mural thrombus PAST MEDICAL HISTORY PAST MEDICAL HISTORY Diagnosis [...] Onset Hypertension Father SOCIAL HISTORY SOCIAL HISTORY[1] HOME MEDICATIONS enalapril (VASOTEC) 2.5 mg tabletTake 1 tablet by mouth two times a day.Disp: 60 tabletRfl: 0 apixaban (ELIQUIS) 2.5 mg tab(s)Take 2.5 mg by mouth two times a day.Disp: Rfl: JARDIANCE 10 mg tabletTake 10 mg by mouth daily with breakfast.Disp: Rfl: mirtazapine (REMERON) 30 mg tabletTake 30 mg by mouth daily at bedtime.Disp: Rfl: rosuvastatin (CRESTOR) 5 mg tabletTake 5 mg by mouth once daily.Disp: Rfl: ALDACTONE 25 mg tabletTake 12.5 mg by mouth once daily.Disp: Rfl: melatonin 2.5 mg chewTake 2.5 mg by mouth daily at bedtime.Disp: Rfl: TOPROL XL 25 MG 24 HR TABTake one(1) tablet daily.Disp: 125Rfl: 0 MULTIVITAMIN TABLETTake one(1) tablet daily.Disp: Rfl: 0 furosemide (LASIX) 20 mg tabletTake 1 tablet by mouth once daily.Disp: 90 tabletRfl: 0 senna-docusate (SENEXON-S) 8.6-50 mg per tabletTake 1 tablet by mouth once daily as needed for constipation.Disp: Rfl: Cholecalciferol, Vitamin D3, 25 mcg (1,000 unit) capTake 1,000 Units by mouth once daily.Disp: Rfl: CALCIUM + D 600MG TABLETTake one(1) tablet two(2) times daily.Disp: Rfl: 0 INPATIENT MEDICATIONS Current Facility-Administered Medications Medication Dose Route Frequency apixaban 2.5 mg tab(s) (ELIQUIS) 2.5 mg ORAL BID spironolactone 12.5 mg tab(s) (ALDACTONE) 12.5 mg ORAL DAILY enalapril 2.5 mg tab(s) (VASOTEC) 2.5 mg ORAL BID rosuvastatin 5 mg tab(s) (CRESTOR) 5 mg ORAL DAILY metoprolol succinate ER 25 mg tab(s) (TOPROL XL) 25 mg ORAL DAILY empagliflozin 10 mg tab(s) (JARDIANCE) 10 mg ORAL DAILY WITH BREAKFAST mirtazapine 30 mg (REMERON) 30 mg ORAL AT BEDTIME NaCl 0.9% iv flush bag 20 mL INTRAVENOUS PRN furosemide 20 mg injection (LASIX) 20 mg INTRAVENOUS BID 9a/5p ondansetron orally disintegrating 4 mg tab(s) (ZOFRAN ODT) 4 mg ORAL q 6 H PRN Or ondansetron (PF) 4 mg injection (ZOFRAN) 4 mg INTRAVENOUS q 6 H PRN docusate sodium 100 mg cap(s) (COLACE) 100 mg ORAL BID PRN magnesium hydroxide 400 mg/5 mL 30 mL (MOM) 30 mL ORAL DAILY PRN acetaminophen 650 mg tab(s) (TYLENOL) 650 mg ORAL q 6 H PRN melatonin 6 mg tab(s) 6 mg ORAL AT BEDTIME ALLERGIES ALLERGIES Allergen Reactions Cortisone facial swelling after IM injection COMPLETE REVIEW OF SYSTEMS Constitutional: No weight loss, malaise or fevers. HEENT: Negative for frequent or significant headaches Respiratory: Negative for cough, wheezing Cardiovascular: Negative for chest pain, leg swelling or palpitations Gastrointestinal: Negative for abdominal discomfort, blood in stools or black stools or change in bowel habits Genitourinary: No history of dysuria, frequency, or incontinence Endocrine: positive for tremor Hematologic: Negative for prolonged bleeding, bruising easily or swollen nodes Neurologic: She has some vision and hearing loss. No history or headaches, syncope, paral (more content not included)... [facility] THERAPY [facility] 01-28-2025 THERAPY NT HNO ID: [id number] Author: LOI HEWITT PT Service: Physical Therapy Author Type: Physical Therapist Type: Therapy (PT/OT/Speech/Resp) Filed: 01/28/2025 16:05 Note Text: Summary: PT evaluation Physical Therapy Evaluation Summary SERVICE DATE: 01/28/2025 SERVICE TIME: 1510 to 1528 ROOM: [place] [address] PT 6 Clicks Score: 20 DISCHARGE RECOMMENDATIONS Home PT Recommended Discharge Disposition Comments: Patient with exacerbation of impaired balance, limited activity tolerance and impaired safety awareness, causing her to require assistance with mobility and placing her at a risk of falls. Daily skilled PT treatment is indicated to address her impairments and promote return to prior level of independence and mobility. Anticipated Discharge Needs: Physical Assist at Home, Supervision at Home Physical Assist at Home for: Cleaning, Laundry, Meals, Self Care, Shopping, Transportation, Medication Management, Safety Supervision at Home due to: Decreased safety awareness Recommended Discharge Equipment: No equipment needs anticipated ASSESSMENT Response to Therapy Interventions: Good Participation in Activities, On-Track to Achieve Discharge Goals, Low Activity Tolerance Patient functioning below baseline, requiring CGA and cues for safe mobility. Flexed posture with all mobility, but exaggerated when ambulating without AD. Patient educated on the importance of AD (walker or walking sticks). PRECAUTIONS Bed/Chair Alarm, Fall Risk CURRENT HOSPITAL COURSE Patient presents with SOB, admitted for acute on chronic CHF Relevant Past Medical History: ASCVA, CAD, CHF, HTN, insomnia, LV mural thrombus, tremor, cardiomyopathy HOME LIVING Patient Lives With: Facility Care, Other: See Comment Comments: [facility] Assistance Available: 24-Hour Entry To Home: No Stairs Number Of Stairs To Bed/Bath: 0 Tub/Shower Type: WIS with shower chair Laundry: Staff completes Equipment Owned: Other: See Comment, Shower Chair (walking sticks) PRIOR FUNCTIONAL LEVEL Within Functional Limits, Required Assistance Assistance Required With: Shopping, Transportation, Self Care, Medication Management, Meals, Laundry, Cleaning, Transfers Patient reports pt is independent with ADLs but staff assists with shower transfers and bathing tasks, ambulates with 2 walking sticks, denies falls in the past 6 months, facility completes IADLs including managing meds and pt ambulates to the dining area for lunch/dinner, staff brings breakfast to her room, sleeps on a flat bed SUBJECTIVE Patient resting in bed upon approach. Alert and agreeable to PT evaluation THERAPY DIAGNOSIS Reduced mobility-other, Unsteadiness on feet TREATMENT INTERVENTIONS Evaluation, Therapeutic Activity (84748), Gait Training (67487) Timed Code Treatment (minutes): 3 Skilled Treatment Time (minutes): 18 $ Evaluation-Low (84500) Billed Units: 1 unit Therapeutic Activity (41409) Treatment Minutes: 2 $ Therapeutic Activity (85443) Billed Units: 0 units Gait Training (86995) Treatment Minutes: 1 $ Gait Training (12091) Billed Units: 0 units TRAINING AND EDUCATION PROVIDED Advanced Balance Activities, Assistive Device Use, Bed Mobility, Benefits of In-Hospital Mobility, Discharge Planning, Transfers, Standing Balance, Role of Physical Therapy, Positioning, Gait Pattern, Reduction of Deviations, Falls Prevention, Home Safety, Expected Functional Level THERAPEUTIC SKILLS USED Activity Dosing, Cues for Sequencing/Proper Technique for Activity, Cuing Tactile, Cuing Verbal, Movement Facilitation, Physical Assist, Postural Alignment Correction FUNCTIONAL STATUS Bed Mobility Supine To Sit: Supervision, Additional Information Increased time to complete Sit to Supine: Supervision, Additional Information Increased time to complete with cues for positioning Scooting: Stand By Assistance, Additional Information from seated position, anterior to EOB in preparation for transfers. Transfers Sit To Stand: Contact Guard Assistance, Stand By Assistance, Additional Information from EOB to F/F- standing balance with flexed posture. Stand To Sit: Contact Guard Assistance, Additional Information cues for safe approach and eccentric control. Patient initiates sitting prior to turning completely without cues. Education on the importance of turning completely, feeling EOB on the back of both legs and reaching back prior to sitting to decrease risk of falls. Bed to Chair Contact Guard Assistance, Additional Information Bed To Chair Transfer Type: Stepping Bed To Chair Transfer Equipment: Wheeled Walker cues to turn completely prior to sitting. Gait Contact Guard Assistance, Stand By Assistance, Additional Information gait with wheeled walker with flexed posture and with (more content not included)... [facility] THERAPY NT HNO ID: [id number] Author: CAROLE HUGHES OT/L Service: Occupational Therapy Author Type: Occupational Therapist Type: Therapy (PT/OT/Speech/Resp) Filed: 01/28/2025 14:56 Note Text: Summary: OT Evaluation Occupational Therapy Evaluation Summary SERVICE DATE: 01/28/2025 SERVICE TIME: 1418 to 1446 ROOM: [id number] OT 6 Clicks Score: 19 DISCHARGE RECOMMENDATIONS Home Anticipated Discharge Needs: Physical Assist at Home, Supervision at Home Physical Assist at Home for: Cleaning, Laundry, Meals, Medication Management, Self Care, Shopping, Transportation, Transfers Supervision at Home due to: Other: See Comment (for optimal safety) Recommended Discharge Equipment: No equipment needs anticipated ASSESSMENT Response to Therapy Interventions: Good Participation in Activities, On-Track to Achieve Discharge Goals Patient appears to be functioning near baseline with ADLs and functional mobility/transfers, pt is very [place], follows commands appropriately, denies SOB during mobility, reports no questions/concerns for d/c back to [facility] PRECAUTIONS Bed/Chair Alarm, Fall Risk CURRENT HOSPITAL COURSE Patient presents with SOB, admitted for acute on chronic CHF Relevant Past Medical History: ASCVA, CAD, CHF, HTN, insomnia, LV mural thrombus, tremor, cardiomyopathy HOME LIVING Patient Lives With: Facility Care, Other: See Comment Comments: [facility] Assistance Available: 24-Hour Entry To Home: No Stairs Number Of Stairs To Bed/Bath: 0 Tub/Shower Type: WIS with shower chair Laundry: Staff completes Equipment Owned: Other: See Comment, Shower Chair (walking sticks) PRIOR FUNCTIONAL LEVEL Required Assistance Assistance Required With: Shopping, Transportation, Self Care, Medication Management, Meals, Laundry, Cleaning, Transfers Patient reports pt is independent with ADLs but [...] to time, Oriented to situation SUBJECTIVE Patient is pleasant and agreeable to this session, RN cleargilmar to work with COGNITION Orientation Deficits: (AOx4) Responsiveness: Alert, Awake Follows Commands: 2-step Commands THERAPY DIAGNOSIS Reduced mobility-other, Decreased activities of daily living (ADL), Muscle Weakness (generalized) TREATMENT INTERVENTIONS Evaluation, Self Senior Living Management (45032) Timed Code Treatment (minutes): 13 Skilled Treatment Time (minutes): 28 TRAINING AND EDUCATION PROVIDED Activity Adaptation/Block Cleaner y Strategies, Adaptive Equipment/DME, Bed Mobility, Benefits of In-Hospital Mobility, Cognitive Skills, Command Following, Discharge Planning, Expected Functional Level, Functional Mobility Involving ADLs, Insight into Deficits, Lower Extremity Dressing, Memory/Attention, Orientation, Positioning, Role of Occupational Therapy, Safety/Judgment, Sitting Balance to Improve Bowman with ADLs/Self-Care, Standing Balance to Improve Bowman with ADLs/Self-Care, Transfer - Sit to Stand THERAPEUTIC SKILLS USED Activity Dosing, Cues for Sequencing/Proper Technique for Activity, Cuing Tactile, Cuing Verbal, Cuing Visual, Facilitation of Joint Range of Motion, Muscle Activation Facilitation, Movement Facilitation, Physical Assist, Task Analysis Learning, Teach-Back for Education, Therapeutic Use of Self FUNCTIONAL STATUS Activities of Daily Living Assist Level Additional Information Feeding Independent Grooming Contact Guard Assistance, Additional Information if standing at the sink/counter Bathing Upper Body Stand By Assistance Bathing Lower Body Moderate Assistance, Additional Information requires assistance at baseline Dressing Upper Body Stand By Assistance Dressing Lower Body Contact Guard Assistance, Additional Information able to doff/don socks seated EOB with SBA, CGA for standing portion Toileting Contact Guard Assistance Mobility Assist Level Additional Information Bed Mobility Scooting: Contact Guard Assistance To EOB Supine To Sit: Stand By Assistance Sit To Supine: Stand By Assistance Sit to Stand Contact Guard Assistance, Additional Information From EOB to FWW level Stand to Sit Contact Guard Assistance Bed to Chair Toilet/Commode Shower Functional Mobility Contact Guard Assistance Functional Mobility Device: Wheeled Walker (gait belt) GOALS Patient will demonstrate progress with self-care, cognitive and/or coping needs identified to allow safe discharge to home with available support and/or physical assistance. (more content not included)... [facility] ALLIED HEALTHon 01-27-2025 ALLIED HEALTH HNO ID: [id number] Author: GEN BAIRES CT Service: Radiology Author Type: Technologist Type: Allied Health Filed: 01/27/2025 13:25 Note Text: Radiology Service Progress Note PATIENT NAME: Na Good DATE OF SERVICE: January 27, 2025 TIME: 1:24 PM PATIENT IDENTITY VERIFICATION COMPLETED USING TWO (2) IDENTIFIERS: Name and Date of confirmed by identification band. FALL SCREENING: Has the patient had 2 falls in the last year or 1 fall with injury or currently using an Ambulatory Assistive Device (Walker, Cane, Wheelchair, Crutches, etc.)? Emergency Room Patient: Screened in ED PATIENT GENDER DATA: Assigned female at . status: : No status: NO. PATIENT RELEVANT IMPLANT DATA REVIEWED: Not Applicable PATIENT PRESENTS WITH AN IMPLANTABLE OR ATTACHED LIGHTING ENGINEERING TECHNICIAN: No RADIOLOGY DEPARTMENT: General X-ray: Exam(s) Completed: Chest X-Ray PERIPHERAL IV DATA: Not applicable SIGNED BY: LAUREL Brooks January 27, 2025 1:24 PM Normal [facility] Bacteria Ur Culton Bacteria identified Cx Nom (U) CULTURE, URINE: Normal urogenital tiffanie: ORGANISM ID: 1 >=100,000 CFU/ml Staphylococcus epidermidis No further workup. Normal [facility] Comment on above: Performed By: #### 2 4356-8 ####[facility]ATORYCLIA [id number] [place] [address] [place]#### 630-4 ####[facility] LABCL[facility] [id number] [place] [address] [place] CBC W Auto Differential pane l (Bld)on 01-27-2025 Basophils (Bld) [#/Vol] 0.09 10*3/uL Normal <0.11 [facility] Comment on above: Order Comment: Speci men Type: BLOOD SPECIMENOrdering Facility: [facility] Address: [address] [place] [address] Performed By: #### 5 7021-8 ####[facility]ORYCLIA [id number] [place] [address] [place] Basophils/100 WBC (Bld) 0.9 % Normal [facility] Comment on above: Order Comment: Speci men Type: BLOOD SPECIMENOrdering Facility: [facility] Address: [address] [place] [address] Performed By: #### 5 7021-8 ####[facility] [id number] [address] [place] Differential cell count method Nom (Bld) Auto Normal [facility] Comment on above: Order Comment: Speci men Type: BLOOD SPECIMENOrdering Facility: [facility] Address: [address] [place] [address] Performed By: #### 5 7021-8 ####[facility]ORYCLIA [id number] [place] [address] [place] Eosinophils (Bld) [#/Vol] 0.06 10*3/uL Normal <0.46 [facility] Comment on above: Order Comment: Speci men Type: BLOOD SPECIMENOrdering Facility: [facility] Address: [address] [place] [address] Performed By: #### 5 7021-8 ####[facility]ORYCLIA [id number] [address] [place] Eosinophils/100 WBC (Bld) 0.6 % Normal [facility] Comment on above: Order Comment: Speci men Type: BLOOD SPECIMENOrdering Facility: [facility] Address: [address] [place] [address] Performed By: #### 5 7021-8 ####[facility]ORYCLIA [id number] [address] [place] Erythrocyte distribution width (RBC) [Ratio] 15.9 % High 11.5-15.0 [facility] Comment on above: Order Comment: Speci men Type: BLOOD SPECIMENOrdering Facility: [facility] Address: [address] [place] [address] Performed By: #### 5 7021-8 ####[facility]ORYCLIA [id number] [address] [place] Hematocrit (Bld) [Volume fraction] 45.1 % Normal 36.0-46.0 [facility] Comment on above: Order Comment: Speci men Type: BLOOD SPECIMENOrdering Facility: [facility] Address: [address] [place] [address] Performed By: #### 5 7021-8 ####[facility]ORYCLIA [id number] [place] [address] [place] Hemoglobin (Bld) [Mass/Vol] 14.5 g/dL Normal 11.5-15.5 [facility] Comment on above: Order Comment: Speci men Type: BLOOD SPECIMENOrdering Facility: [facility] Address: [address] [place] [address] Performed By: #### 5 7021-8 ####[facility]ORYCLIA [id number] [place] [address] [place] Immature granulocytes (Bld) [#/Vol] 0.04 10*3/uL Normal <0.10 [facility] Comment on above: Order Comment: Speci men Type: BLOOD SPECIMENOrdering Facility: [facility] Address: [address] [place] [address] Performed By: #### 5 7021-8 ####[facility]ORYCLIA [id number] [place] [address] [place] Immature granulocytes/100 WBC (Bld) 0.4 % Normal [facility] Comment on above: Order Comment: Speci men Type: BLOOD SPECIMENOrdering Facility: [facility] Address: [address] [place] [address] Performed By: #### 5 7021-8 ####[facility]ORYCLIA [id number] [place] [address] [place] Lymphocytes (Bld) [#/Vol] 1.30 10*3/uL Normal 1.00-4.00 [facility] Comment on above: Order Comment: Speci men Type: BLOOD SPECIMENOrdering Facility: [facility] Address: [address] [place] [address] Performed By: #### 5 7021-8 ####[facility]ORYCLIA [id number] [place] [address] [place] Lymphocytes/100 WBC (Bld) 12.3 % Normal [facility] Comment on above: Order Comment: Speci men Type: BLOOD SPECIMENOrdering Facility: [facility] Address: [address] [place] [address] Performed By: #### 5 7021-8 ####[facility]ORYCLIA [id number] [address] MCH (RBC) [Entitic mass] 29.2 pg Normal 26.0-34.0 [facility] Comment on above: Order Comment: Speci men Type: BLOOD SPECIMENOrdering Facility: [facility] Address: [address] [place] [address] Performed By: #### 5 7021-8 ####[facility]ORYCLIA [id number] [address] [place] MCHC (RBC) [Mass/Vol] 32.2 g/dL Normal 30.5-36.0 [facility] Comment on above: Order Comment: Speci men Type: BLOOD SPECIMENOrdering Facility: [facility] Address: [address] [place] [address] Performed By: #### 5 7021-8 ####[facility]ORYCLIA [id number] [address] MCV (RBC) [Entitic vol] 90.7 fL Normal 80.0-100.0 [facility] Comment on above: Order Comment: Speci men Type: BLOOD SPECIMENOrdering Facility: [facility] Address: [address] [place] [address] Performed By: #### 5 7021-8 ####[facility]ORYCLIA [id number] [address] [place] Monocytes (Bld) [#/Vol] 0.78 10*3/uL Normal <0.87 [facility] Comment on above: Order Comment: Speci men Type: BLOOD SPECIMENOrdering Facility: [facility] Address: [address] [place] [address] Performed By: #### 5 7021-8 ####[facility]ORYCLIA [id number] [address] Monocytes/100 WBC (Bld) 7.4 % Normal [facility] Comment on above: Order Comment: Speci men Type: BLOOD SPECIMENOrdering Facility: [facility] Address: [address] [place] [address] Performed By: #### 5 7021-8 ####[facility]ORYCLIA [id number] [place] [address] [place] Neutrophils (Bld) [#/Vol] 8.30 10*3/uL High 1.45-7.50 [facility] Comment on above: Order Comment: Speci men Type: BLOOD SPECIMENOrdering Facility: [facility] Address: [address] [place] [address] Performed By: #### 5 7021-8 ####[facility]ORYCLIA [id number] [address] [place] Neutrophils/100 WBC (Bld) 78.4 % Normal [facility] Comment on above: Order Comment: Speci men Type: BLOOD SPECIMENOrdering Facility: [facility] Address: [address] [place] [address] Performed By: #### 5 7021-8 ####[facility]ORYCLIA [id number] [place] [address] [place] Nucleated RBC (Bld) [#/Vol] 10*3/uL Normal <0.01 [facility] Comment on above: Order Comment: Speci men Type: BLOOD SPECIMENOrdering Facility: [facility] Address: [address] [place] [address] Performed By: #### 5 7021-8 ####[facility]ATORYCLIA [id number] [place] [address] [place] Nucleated RBC/100 WBC (Bld) [Ratio] 0.0 /100 WBC Normal [facility] Comment on above: Order Comment: Speci men Type: BLOOD SPECIMENOrdering Facility: [facility] Address: [address] [place] [address] Performed By: #### 5 7021-8 ####[facility]ORYCLIA [id number] [place] [address] [place] Platelet mean volume (Bld) [Entitic vol] 10.9 fL Normal 9.0-12.7 [facility] Comment on above: Order Comment: Speci men Type: BLOOD SPECIMENOrdering Facility: [facility] Address: [address] [place] [address] Performed By: #### 5 7021-8 ####[facility]ORYCLIA [id number] [address] Platelets (Bld) [#/Vol] 389 10*3/uL Normal 150-400 [facility] Comment on above: Order Comment: Speci men Type: BLOOD SPECIMENOrdering Facility: [facility] Address: [address] [place] [address] Performed By: #### 5 7021-8 ####[facility]ORYCLIA [id number] [address] [place] RBC (Bld) [#/Vol] 4.97 10*6/uL Normal 3.90-5.20 [facility] Comment on above: Order Comment: Speci men Type: BLOOD SPECIMENOrdering Facility: [facility] Address: [address] [place] [address] Performed By: #### 5 7021-8 ####[facility]ORYCLIA [id number] [address] [place] WBC (Bld) [#/Vol] 10.57 10*3/uL Normal 3.70-11.00 [facility] Comment on above: Order Comment: Speci men Type: BLOOD SPECIMENOrdering Facility: [facility] Address: [address] [place] [address] Performed By: #### 5 7021-8 ####[facility]ORYCLIA [id number] [address] [place] Comprehensive metabolic 2000 panelon 01-27-2025 Albumin [Mass/Vol] 4.3 g/dL Normal 3.9-4.9 [facility] Comment on above: Order Comment: Speci men Type: BLOOD SPECIMENOrdering Facility: [facility] Address: [address] [place] [address] Performed By: #### 1 9123-9, [id number], 12162-6, 33552-9 ####[facility]ORYCLIA [id number] [place] [address] [place] ALP [Catalytic activity/Vol] 52 U/L Normal 34-123 [facility] Comment on above: Order Comment: Speci men Type: BLOOD SPECIMENOrdering Facility: [facility] Address: [address] [place] [address] Performed By: #### 1 9123-9, [id number], 07679-3, 55981-4 ####[facility]ATORYCLIA [id number] [place] [address] [place] ALT [Catalytic activity/Vol] 30 U/L Normal 7-38 [facility] Comment on above: Order Comment: Speci men Type: BLOOD SPECIMENOrdering Facility: [facility] Address: [address] [place] [address] Performed By: #### 1 9123-9, [id number], 86820-9, 00018-0 ####[facility]ORYCLIA [id number] [place] [address] [place] Anion gap [Moles/Vol] 13 mmol/L Normal 8-15 [facility] Comment on above: Order Comment: Speci men Type: BLOOD SPECIMENOrdering Facility: [facility] Address: [address] [place] [address] Performed By: #### 1 9123-9, [id number], 72782-3, 92299-2 ####[facility]ORYCLIA [id number] [place] [address] [place] AST [Catalytic activity/Vol] 41 U/L High 13-35 [facility] Comment on above: Order Comment: Speci men Type: BLOOD SPECIMENOrdering Facility: [facility] Address: [address] [place] [address] Performed By: #### 1 9123-9, [id number], 24061-1, 33978-0 ####[facility]ORYCLIA [id number] [place] [address] [place] Bilirubin [Mass/Vol] 0.7 mg/dL Normal 0.2-1.3 [facility] Comment on above: Order Comment: Speci men Type: BLOOD SPECIMENOrdering Facility: [facility] Address: [address] [place] [address] Performed By: #### 1 9123-9, [id number], 82846-2, 09632-6 ####[facility]ORYCLIA [id number] [place] [address] [place] Calcium [Mass/Vol] 9.5 mg/dL Normal 8.5-10.2 [facility] Comment on above: Order Comment: Speci men Type: BLOOD SPECIMENOrdering Facility: [facility] Address: [address] [place] [address] Performed By: #### 1 9123-9, [id number], 99420-3, 17008-4 ####[facility]ORYCLIA [id number] [place] [address] [place] Chloride [Moles/Vol] 103 mmol/L Normal 98-107 [facility] Comment on above: Order Comment: Speci men Type: BLOOD SPECIMENOrdering Facility: [facility] Address: [address] [place] [address] Performed By: #### 1 9123-9, [id number], 82041-4, 30841-3 ####[facility]ORYCLIA [id number] [place] [address] [place] CO2 [Moles/Vol] 25 mmol/L Normal 22-30 [facility] Comment on above: Order Comment: Speci men Type: BLOOD SPECIMENOrdering Facility: [facility] Address: [address] [place] [address] Performed By: #### 1 9123-9, [id number], 50495-5, 68147-1 ####[facility]ATORYCLIA [id number] [place] [id number] [place] Creatinine [Mass/Vol] 0.91 mg/dL Normal 0.58-0.96 [facility] Comment on above: Order Comment: Speci men Type: BLOOD SPECIMENOrdering Facility: [facility] Address: [address] [place] [address] Performed By: #### 1 9123-9, [id number], 57723-9, 38787-4 ####[facility]ORYCLIA [id number] [place] [address] [place] eGFRcr SerPlBld CKD-EPI 2020 60 mL/min/1.73m??? Normal >=60 [facility] Comment on above: Order Comment: Vita florez Type: BLOOD SPECIMENOrdering Facility: [facility] Address: [address] [place] [address] Result Comment: Radha mated Glomerular Filtration Rate [...] accurately reflect actual GFR. Performed By: #### 1 9123-9, [id number], 39918-9, 41357-6 ####[facility] LABORATORYCLIA [id number] [place] [address] [place] Glucose [Mass/Vol] 98 mg/dL Normal 74-99 [facility] Comment on above: Order Comment: Vita florez Type: BLOOD SPECIMENOrdering Facility: [facility] Address: [address] [place] [address] Result Comment: The [place] Diabetes Association (ADA) provides guidance for cutoff [...] Standards of Medical Care in Diabetes 2016, [place] [employer]. Diabetes Care. 2016.39(Suppl 1). Performed By: #### 1 9123-9, [id number], 16780-1, 38671-0 ####[facility] LABORATORYCLIA [id number] [place] [id number] [place] Potassium [Moles/Vol] 4.8 mmol/L Normal 3.7-5.1 [facility] Comment on above: Order Comment: Speci men Type: BLOOD SPECIMENOrdering Facility: [facility] Address: [address] [place] [address] [place] [address] Performed By: #### 1 9123-9, [id number], 20706-7, 73060-2 ####[facility] LABORATORYCLIA [id number] [address] STATES OF [facility] Protein [Mass/Vol] 7.1 g/dL Normal 6.3-8.0 [facility] Comment on above: Order Comment: Speci men Type: BLOOD SPECIMENOrdering Facility: [facility] Address: [address] [place] [address] Performed By: #### 1 9123-9, [id number], 61543-5, 68448-0 ####[facility] LABORATORYCLIA [id number] [address] STATES OF [facility] Sodium [Moles/Vol] 141 mmol/L Normal 136-144 [facility] Comment on above: Order Comment: Speci men Type: BLOOD SPECIMENOrdering Facility: [facility] Address: [address] [place] [address] Performed By: #### 1 9123-9, [id number], 71933-6, 33356-7 ####[facility] LABORATORYCLIA [id number] [address] [place] Urea nitrogen [Mass/Vol] 25 mg/dL High 7-21 [facility] Comment on above: Order Comment: Speci men Type: BLOOD SPECIMENOrdering Facility: [facility] Address: [address] [place] [address] Performed By: #### 1 9123-9, [id number], 95192-4, 12066-8 ####[facility] LABORATORYCLIA [id number] [place] [id number] [facility] ED NOTEon 01-27-2025 ED NOTE HNO ID: [id number] Author: MELODIE CLEARY RN Service: Nursing Author Type: Registered Nurse Type: ED Notes Filed: 01/27/2025 15:53 Note Text: This rn attempted to call loan Luis message left. [facility] ED NOTE HNO ID: [id number] Author: MELODIE CLEARY RN Service: Nursing Author Type: Registered Nurse Type: ED Notes Filed: 01/27/2025 15:53 Note Text: [facility] updated on Pt admission. [facility] ED NOTE HNO ID: [id number] Author: MELODIE CLEARY RN Service: Nursing Author Type: Registered Nurse Type: ED Notes Filed: 01/27/2025 15:41 Note Text: This RN attempted to call nursing @ [facility] to update on pt current condition, DX AND admission to [facility], however, unable to reach nursing @ this time. Message to call this RN back was given. [facility] ED NOTE HNO ID: [id number] Author: MELODIE CLEARY RN Service: Nursing Author Type: Registered Nurse Type: ED Notes Filed: 01/27/2025 15:09 Note Text: Pt currently on pure wick external catheter. [facility] ED NOTE HNO ID: [id number] Author: MELODIE CLEARY RN Service: Nursing Author Type: Registered Nurse Type: ED Notes Filed: 01/27/2025 15:08 Note Text: 4 S charge aware report is in for 5-1. [facility] ED NOTE HNO ID: [id number] Author: JUANCARLOS MARTINEZ RN Service: Nursing Author Type: Registered Nurse Type: ED Notes Filed: 01/27/2025 12:38 Note Text: MD rounds. [facility] ED PROGRESS NOTE (PROVIDER)o n 01-27-2025 ED PROGRESS NOTE (PROVIDER) HNO ID: [id number] Author: ZENOBIA CUNNINGHAM MD Service: ? Author Type: Physician Type: ED PROGRESS NOTE (PROVIDER) Filed: 01/27/2025 14:51 Note Text: ED CONTINUATION OF CARE NOTE Code Status: Prior Assumed care from: Dr. Gilliland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 CBC-Complete Blood Cnt No Di ffon 12-29-2024 Erythrocyte distribution width (RBC) [Ratio] 15.7 % High 11.6-14.6 [facility] Comment on above: Order Comment: 546-1 Performed By: #### L 100.0500, L500.2500 #### [facility] [address] [place], [address] Hematocrit (Bld) [Volume fraction] 41.1 % Normal 37-47 [facility] Comment on above: Order Comment: 546-1 Performed By: #### L 100.0500, L500.2500 #### [facility] [address] [place], [address] Hemoglobin (Bld) [Mass/Vol] 13.7 g/dL Normal 12.0-15.0 [facility] Comment on above: Order Comment: 546-1 Performed By: #### L 100.0500, L500.2500 #### [facility] [address] [place], [address] MCH (RBC) [Entitic mass] 30.0 pg Normal 27.0-32.0 [facility] Comment on above: Order Comment: 546-1 Performed By: #### L 100.0500, L500.2500 #### [facility] [address] [place], [address] MCHC (RBC) [Mass/Vol] 33.3 g/dL Normal 32-36 [facility] Comment on above: Order Comment: 546-1 Performed By: #### L 100.0500, L500.2500 #### [facility] [address] [place], [address] MCV (RBC) [Entitic vol] 90.1 fL Normal 81-99 [facility] Comment on above: Order Comment: 546-1 Performed By: #### L 100.0500, L500.2500 #### [facility] [address] [place], [address] Platelet mean volume (Bld) [Entitic vol] 10.7 fL Normal 6.2-12.0 [facility] Comment on above: Order Comment: 546-1 Performed By: #### L 100.0500, L500.2500 #### [facility] [address] [place], [address] Platelets (Bld) [#/Vol] 331 10*3/uL Normal 150-450 [facility] Comment on above: Order Comment: 546-1 Performed By: #### L 100.0500, L500.2500 #### [facility] [address] [place], [address] RBC (Bld) [#/Vol] 4.56 10*6/uL Normal 4.2-5.4 [facility] Comment on above: Order Comment: 546-1 Performed By: #### L 100.0500, L500.2500 #### [facility] [address] [place], [address] RDW SD 51.1 fl High 35.1-43.9 [facility] Comment on above: Order Comment: 546-1 Performed By: #### L 100.0500, L500.2500 #### [facility] [address] [place], [address] WBC (Bld) [#/Vol] 8.7 10*3/uL Normal 4.4-11.0 [facility] Comment on above: Order Comment: 546-1 Performed By: #### L 100.0500, L500.2500 #### [facility] [address] [place], [address] Basic metabolic 2000 panelon 12-27-2024 Anion gap [Moles/Vol] 11 mmol/L Normal 8-15 [facility] Comment on above: Order Comment: Speci men Type: BLOOD SPECIMENOrdering Facility: [facility] Address: [address] [place] [address] Performed By: #### 2 4321-2 ####[facility] LABORATORYCLIA [id number] [place] [address] [place] Calcium [Mass/Vol] 8.9 mg/dL Normal 8.5-10.2 [facility] Comment on above: Order Comment: Speci men Type: BLOOD SPECIMENOrdering Facility: [facility] Address: [address] [place] [address] Performed By: #### 2 4321-2 ####[facility] LABORATORYCLIA [id number] [place] [address] [place] Chloride [Moles/Vol] 97 mmol/L Low 98-107 [facility] Comment on above: Order Comment: Speci men Type: BLOOD SPECIMENOrdering Facility: [facility] Address: [address] [place] [address] Performed By: #### 2 4321-2 ####[facility] LABORATORYCLIA [id number] [place] [address] [place] CO2 [Moles/Vol] 26 mmol/L Normal 22-30 [facility] Comment on above: Order Comment: Vita florez Type: BLOOD SPECIMENOrdering Facility: [facility] Address: [address] [place] [address] Performed By: #### 2 4321-2 ####[facility] LABORATORYCLIA [id number] [address] [place] [id number] [place] Creatinine [Mass/Vol] 0.97 mg/dL High 0.58-0.96 [facility] Comment on above: Order Comment: Vita florez Type: BLOOD SPECIMENOrdering Facility: [facility] Address: [address] [place] [address] Performed By: #### 2 4321-2 ####[facility] LABORATORYCLIA [id number] [address] eGFRcr SerPlBld CKD-EPI 2020 56 mL/min/1.73m??? Low >=60 [facility] Comment on above: Order Comment: Vita florez Type: BLOOD SPECIMENOrdering Facility: [facility] Address: [address] [place] [address] Result Comment: Radha mated Glomerular Filtration Rate [...] Performed By: #### 2 4321-2 ####[facility] LABORATORYCLIA [id number] [address] [id number] [facility] Glucose [Mass/Vol] 84 mg/dL Normal 74-99 [facility] Comment on above: Order Comment: Vita gautam Type: BLOOD SPECIMENOrdering Facility: [facility] Address: [address] [place] [address] Result Comment: The [place] [employer] (ADA) provides guidance for cutoff [...] Standards of Medical Care in Diabetes 2016, [place] [employer]. Diabetes Care. 2016.39(Suppl 1). Performed By: #### 2 4321-2 ####[facility]ORATORYCLIA [id number] [address] Potassium [Moles/Vol] 3.6 mmol/L Low 3.7-5.1 [facility] Comment on above: Order Comment: Vita florez Type: BLOOD SPECIMENOrdering Facility: [facility] Address: [address] [place] [address] Performed By: #### 2 4321-2 ####[facility] LABORATORYCLIA [id number] [address] [place] [facility] Sodium [Moles/Vol] 134 mmol/L Low 136-144 [facility] Comment on above: Order Comment: Vita florez Type: BLOOD SPECIMENOrdering Facility: [facility] Address: [address] [place] [address] Performed By: #### 2 4321-2 ####[facility] LABORATORYCLIA [id number] [address] Urea nitrogen [Mass/Vol] 28 mg/dL High 7-21 [facility] Comment on above: Order Comment: Valei gautam Type: BLOOD SPECIMENOrdering Facility: [facility] Address: [address] [place] [address] Performed By: #### 2 4321-2 ####[facility] LABORATORYCLIA [id number] [address] [place] CBC panel Auto (Bld)on 12-27 Erythrocyte distribution width (RBC) [Ratio] 15.6 % High 11.5-15.0 [facility] Comment on above: Order Comment: Vita florez Type: BLOOD SPECIMENOrdering Facility: [facility] Address: [address] [place] [address] Performed By: #### 5 8410-2 ####[facility]ORATORYCLIA [id number] [address] Hematocrit (Bld) [Volume fraction] 41.6 % Normal 36.0-46.0 [facility] Comment on above: Order Comment: Speci men Type: BLOOD SPECIMENOrdering Facility: [facility] Address: [address] [place] [address] Performed By: #### 5 8410-2 ####[facility] LABORATORYCLIA [id number] [address] [place] Hemoglobin (Bld) [Mass/Vol] 13.9 g/dL Normal 11.5-15.5 [facility] Comment on above: Order Comment: Speci men Type: BLOOD SPECIMENOrdering Facility: [facility] Address: [address] [place] [address] Performed By: #### 5 8410-2 ####[facility] LABORATORYCLIA [id number] [address] MCH (RBC) [Entitic mass] 29.2 pg Normal 26.0-34.0 [facility] Comment on above: Order Comment: Speci men Type: BLOOD SPECIMENOrdering Facility: [facility] Address: [address] [place] [address] Performed By: #### 5 8410-2 ####[facility] LABORATORYCLIA [id number] [address] MCHC (RBC) [Mass/Vol] 33.4 g/dL Normal 30.5-36.0 [facility] Comment on above: Order Comment: Speci men Type: BLOOD SPECIMENOrdering Facility: [facility] Address: [address] [place] [address] Performed By: #### 5 8410-2 ####[facility] LABORATORYCLIA [id number] [address] MCV (RBC) [Entitic vol] 87.4 fL Normal 80.0-100.0 [facility] Comment on above: Order Comment: Speci men Type: BLOOD SPECIMENOrdering Facility: [facility] Address: [address] [place] [address] Performed By: #### 5 8410-2 ####[facility] LABORATORYCLIA [id number] [place] [address] [place] Nucleated RBC (Bld) [#/Vol] 10*3/uL Normal <0.01 [facility] Comment on above: Order Comment: Speci men Type: BLOOD SPECIMENOrdering Facility: [facility] Address: [address] [place] [address] Performed By: #### 5 8410-2 ####[facility] LABORATORYCLIA [id number] [place] [address] [place] Platelet mean volume (Bld) [Entitic vol] 10.2 fL Normal 9.0-12.7 [facility] Comment on above: Order Comment: Speci men Type: BLOOD SPECIMENOrdering Facility: [facility] Address: [address] [place] [address] Performed By: #### 5 8410-2 ####[facility] LABORATORYCLIA [id number] [address] [place] Platelets (Bld) [#/Vol] 334 10*3/uL Normal 150-400 [facility] Comment on above: Order Comment: Speci men Type: BLOOD SPECIMENOrdering Facility: [facility] Address: [address] [place] [address] Performed By: #### 5 8410-2 ####[facility] LABORATORYCLIA [id number] [place] [address] [place] RBC (Bld) [#/Vol] 4.76 10*6/uL Normal 3.90-5.20 [facility] Comment on above: Order Comment: Speci men Type: BLOOD SPECIMENOrdering Facility: [facility] Address: [address] [place] [address] Performed By: #### 5 8410-2 ####[facility] LABORATORYCLIA [id number] [place] [address] [place] WBC (Bld) [#/Vol] 11.86 10*3/uL High 3.70-11.00 [facility] Comment on above: Order Comment: Speci men Type: BLOOD SPECIMENOrdering Facility: [facility] Address: [address] [place] [address] Performed By: #### 5 8410-2 ####[facility] LABORATORYCLIA [id number] [place] [address] [facility] CNDSon 12-27-2024 CNDS HNO ID: [id number] Author: JOSE ANTONIO MILTON MD Service: General [...] being discharged to her Assisted Living with [facility] Transitions of Care Critical Issues: as above LABS AND PROCEDURES PENDING AT DISCHARGE: No pending results. PATIENT CONDITION AT DISCHARGE: Stable DISCHARGE DISPOSITION: Home with Home Health Discharge Physical Exam: VITAL SIGNS: BP 136/81 Pulse 90 Temp 36.4 ?C (97.5 ?F) Resp 16 Ht 157.5 cm (5' 2) Wt 55.6 kg (122 lb 9.2 oz) [...] medications will be mailed to you From: [facility] [place] [address] - [address] - [phone] enalapril 2.5 mg tablet furosemide 20 mg tablet FUTURE APPOINTMENTS: Follow Up with PCP: Johnson Watson MD, MD The patient's risk for 30-day readmission is determined using the following contributing factors: Predictive Model Details 11% (Low) Factor Value Calculated 12/27/2024 05:20 -16% diagnosis count 5 [facility] READMISSION RISK Model 11% Facility [facility] -8% ED visits (365d) 0 8% Hospital [address] -8% Admissions (365d) 1 -6% ED Encounter 0 -6% Sodium (Avg) 138.33 -5% Malnutrition 0 -5% Observations (365d) 0 -5% Current Age 89 Plan of care discussed with Patient, Family/Significant Other: son, Care Management, and RN I have performed the buxj-ce-ktzk and relevant services for a total of >30 minutes. SIGNATURE: Jose Antonio Milton MD DATE: December 27, 2024 TIME: 10:38 AM Normal [facility] Basic metabolic 2000 panelon 12-26-2024 Anion gap [Moles/Vol] 11 mmol/L Normal 8-15 [facility] Comment on above: Order Comment: Speci men Type: BLOOD SPECIMENOrdering Facility: [facility] Address: [address] [place] [address] Performed By: #### 2 4321-2 ####[facility] LABORATORYCLIA [id number] [place] [address] [place] [facility] Calcium [Mass/Vol] 8.9 mg/dL Normal 8.5-10.2 [facility] Comment on above: Order Comment: Speci men Type: BLOOD SPECIMENOrdering Facility: [facility] Address: [address] [place] [address] Performed By: #### 2 4321-2 ####[facility] LABORATORYCLIA [id number] [place] [address] [place] Chloride [Moles/Vol] 101 mmol/L Normal 98-107 [facility] Comment on above: Order Comment: Speci men Type: BLOOD SPECIMENOrdering Facility: [facility] Address: [address] [place] [address] Performed By: #### 2 4321-2 ####[facility] LABORATORYCLIA [id number] [place] [address] CO2 [Moles/Vol] 28 mmol/L Normal 22-30 [facility] Comment on above: Order Comment: Vita florez Type: BLOOD SPECIMENOrdering Facility: [facility] Address: [address] [place] [address] Performed By: #### 2 4321-2 ####[facility] LABORATORYCLIA [id number] [address] STATES OF [facility] Creatinine [Mass/Vol] 1.07 mg/dL High 0.58-0.96 [facility] Comment on above: Order Comment: Vita gautam Type: BLOOD SPECIMENOrdering Facility: [facility] Address: [address] [place] [address] Performed By: #### 2 4321-2 ####[facility] LABORATORYCLIA [id number] [address] eGFRcr SerPlBld CKD-EPI 2020 50 mL/min/1.73m??? Low >=60 [facility] Comment on above: Order Comment: Vita florez Type: BLOOD SPECIMENOrdering Facility: [facility] Address: [address] [place] [address] Result Comment: Radha mated Glomerular Filtration Rate [...] Performed By: #### 2 4321-2 ####[facility] LABORATORYCLIA [id number] [address] Glucose [Mass/Vol] 77 mg/dL Normal 74-99 [facility] Comment on above: Order Comment: Valesj florez Type: BLOOD SPECIMENOrdering Facility: [facility] Address: [address] [place] [address] Result Comment: The [place] [employer] (ADA) provides guidance for cutoff [...] Standards of Medical Care in Diabetes 2016, [place] [employer]. Diabetes Care. 2016.39(Suppl 1). Performed By: #### 2 4321-2 ####[facility] LABORATORYCLIA [id number] [address] [place] [facility] Potassium [Moles/Vol] 3.7 mmol/L Normal 3.7-5.1 [facility] Comment on above: Order Comment: Vita florez Type: BLOOD SPECIMENOrdering Facility: [facility] Address: [address] [place] [address] Performed By: #### 2 4321-2 ####[facility] LABORATORYCLIA [id number] [address] Sodium [Moles/Vol] 140 mmol/L Normal 136-144 [facility] Comment on above: Order Comment: Vita florez Type: BLOOD SPECIMENOrdering Facility: [facility] Address: [address] [place] [address] Performed By: #### 2 4321-2 ####[facility] LABORATORYCLIA [id number] [address] Urea nitrogen [Mass/Vol] 31 mg/dL High 7-21 [facility] Comment on above: Order Comment: Vita florez Type: BLOOD SPECIMENOrdering Facility: [facility] Address: [address] [place] [address] Performed By: #### 2 4321-2 ####[facility] LABORATORYCLIA [id number] [address] [place] CBC panel Auto (Bld)on 12-26 Erythrocyte distribution width (RBC) [Ratio] 15.8 % High 11.5-15.0 [facility] Comment on above: Order Comment: Vita florez Type: BLOOD SPECIMENOrdering Facility: [facility] Address: [address] [place] [address] Performed By: #### 5 8410-2 ####[facility] LABORATORYCLIA [id number] [address] Hematocrit (Bld) [Volume fraction] 41.9 % Normal 36.0-46.0 [facility] Comment on above: Order Comment: Speci men Type: BLOOD SPECIMENOrdering Facility: [facility] Address: [address] [place] [address] Performed By: #### 5 8410-2 ####[facility] LABORATORYCLIA [id number] [address] [place] Hemoglobin (Bld) [Mass/Vol] 14.0 g/dL Normal 11.5-15.5 [facility] Comment on above: Order Comment: Speci men Type: BLOOD SPECIMENOrdering Facility: [facility] Address: [address] [place] [address] Performed By: #### 5 8410-2 ####[facility] LABORATORYCLIA [id number] [address] MCH (RBC) [Entitic mass] 29.7 pg Normal 26.0-34.0 [facility] Comment on above: Order Comment: Speci men Type: BLOOD SPECIMENOrdering Facility: [facility] Address: [address] [place] [address] Performed By: #### 5 8410-2 ####[facility] LABORATORYCLIA [id number] [address] [place] MCHC (RBC) [Mass/Vol] 33.4 g/dL Normal 30.5-36.0 [facility] Comment on above: Order Comment: Speci men Type: BLOOD SPECIMENOrdering Facility: [facility] Address: [address] [place] [address] Performed By: #### 5 8410-2 ####[facility] LABORATORYCLIA [id number] [address] MCV (RBC) [Entitic vol] 89.0 fL Normal 80.0-100.0 [facility] Comment on above: Order Comment: Speci men Type: BLOOD SPECIMENOrdering Facility: [facility] Address: [address] [place] [address] Performed By: #### 5 8410-2 ####[facility] LABORATORYCLIA [id number] [address] [place] Nucleated RBC (Bld) [#/Vol] 10*3/uL Normal <0.01 [facility] [facility] Comment on above: Order Comment: Speci men Type: BLOOD SPECIMENOrdering Facility: [facility] Address: [address] [place] [address] Performed By: #### 5 8410-2 ####[facility] LABORATORYCLIA [id number] [place] [address] [place] Platelet mean volume (Bld) [Entitic vol] 10.6 fL Normal 9.0-12.7 [facility] Comment on above: Order Comment: Speci men Type: BLOOD SPECIMENOrdering Facility: [facility] Address: [address] [place] [address] Performed By: #### 5 8410-2 ####[facility] LABORATORYCLIA [id number] [place] [address] [place] Platelets (Bld) [#/Vol] 364 10*3/uL Normal 150-400 [facility] Comment on above: Order Comment: Speci men Type: BLOOD SPECIMENOrdering Facility: [facility] Address: [address] [place] [address] Performed By: #### 5 8410-2 ####[facility] LABORATORYCLIA [id number] [place] [address] [place] RBC (Bld) [#/Vol] 4.71 10*6/uL Normal 3.90-5.20 [facility] Comment on above: Order Comment: Speci men Type: BLOOD SPECIMENOrdering Facility: [facility] Address: [address] [place] [address] Performed By: #### 5 8410-2 ####[facility] LABORATORYCLIA [id number] [place] [address] [place] WBC (Bld) [#/Vol] 10.64 10*3/uL Normal 3.70-11.00 [facility] Comment on above: Order Comment: Speci men Type: BLOOD SPECIMENOrdering Facility: [facility] Address: [facility] [address] Performed By: #### 5 8410-2 ####[facility] LABORATORYCLIA [id number] [place] [address] [place] ECHOon 12-26-2024 Echocardiography Echocardiography Report: Transthoracic Echo [facility] Date of service: 12/26/2024 12:23:03 PM [...] * * Final * * * CC [facility] : [id number] [facility] NURSING PROGon 12-26-2024 NURSING PROG HNO ID: [id number] Author: RAULITO CHAVEZ RN Service: Nursing Author Type: Registered Nurse Type: Nursing Progress Note Filed: 12/26/2024 14:50 Note Text: PATIENT EDUCATION HEART FAILURE PATIENT NAME: Na Good PATIENT LOCATION: [place] [address] [address] 2 SURVIVAL SKILLS: Low Sodium Diet Weight [...] Skill discussed. Pt in assisted living in [place], this is fairly new for her. Children are all out of states. Son will discuss daily weight and low sodium meal plan w/ staff. Currently she orders off a menu @ meal times. Pt doesn't drink over 64 ounces per day, but unsure of intake. Medications are provided to her @ [place]. 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 Pt states her normal weighs are b/t [...] Patient Education Electronically Signed By: Raulito Chavez [facility] THERAPY NTon 12-26-2024 THERAPY NT HNO ID: [id number] Author: LESLIE BARRERA PT Service: Physical Therapy Author Type: Physical Therapist Type: Therapy (PT/OT/Speech/Resp) Filed: 12/26/2024 11:56 Note Text: Summary: PT eval Physical Therapy Evaluation Summary SERVICE DATE: 12/26/2024 SERVICE TIME: 1123 to 1146 ROOM: WX-0C-8560-2 PT 6 Clicks Score: 18 DISCHARGE RECOMMENDATIONS [...] HOME LIVING Patient Lives With: Facility Care ([facility]) Assistance Available: 24-Hour (has a [...] on feet TREATMENT INTERVENTIONS Evaluation, Therapeutic Exercise (92263) Timed Code Treatment (minutes): 8 Skilled Treatment Time (minutes): 23 $ Evaluation-Low (92763) Billed Units: 1 unit Therapeutic Exercise (24664) Treatment Minutes: 8 $ Therapeutic Exercise (73925) Billed Units: 1 unit TRAINING AND EDUCATION [...] Equipment: Wheele (more content not included)... Normal [facility] Basic metabolic 2000 panelon 12-25-2024 Anion gap [Moles/Vol] 10 mmol/L Normal 8-15 [facility] Comment on above: Order Comment: Speci men Type: BLOOD SPECIMENOrdering Facility: [facility] Address: [address] [place] [address] Performed By: #### 3 016-3, 55556-3 ####[facility] LABORATORYCLIA [id number] [place] [address] [place]#### 3024-7 ####[facility] LABCLIA [id number] [place] [address] [place] Calcium [Mass/Vol] 9.1 mg/dL Normal 8.5-10.2 [facility] Comment on above: Order Comment: Speci men Type: BLOOD SPECIMENOrdering Facility: [facility] Address: [address] [place] [address] Performed By: #### 3 016-3, 54408-7 ####BA[facility] LABORATORYCLIA [id number] [place] [address] [place]#### 3024-7 ####[facility] LABCLIA [id number] [facility] [place] [address] [place] Chloride [Moles/Vol] 103 mmol/L Normal 98-107 [facility] Comment on above: Order Comment: Speci men Type: BLOOD SPECIMENOrdering Facility: [facility] Address: [address] [place] [address] Performed By: #### 3 016-3, 00748-3 ####[facility] LABORATORYCLIA [id number] [place] [address] [place]#### 3024-7 ####[facility] LABCLIA [id number] [place] [address] [place] CO2 [Moles/Vol] 26 mmol/L Normal 22-30 [facility] Comment on above: Order Comment: Speci men Type: BLOOD SPECIMENOrdering Facility: [facility] Address: [address] [place], [place] [address] Performed By: #### 3 016-3, 82283-6 ####BA[facility] LABORATORYCLIA [id number] [place] [address] [place]#### 3024-7 ####[facility] LABCLIA [id number] [place] [address] [place] Creatinine [Mass/Vol] 1.01 mg/dL High 0.58-0.96 [facility] Comment on above: Order Comment: Speci men Type: BLOOD SPECIMENOrdering Facility: [facility] Address: [address] [place] [id number] Performed By: #### 3 016-3, 42084-0 ####BA[facility] LABORATORYCLIA [id number] [place] [address] [place]#### 3024-7 ####[facility] LABCLIA [id number] [place] [id number] [place] eGFRcr SerPlBld CKD-EPI 2020 53 mL/min/1.73m??? Low >=60 [facility] Comment on above: Order Comment: Vita florez Type: BLOOD SPECIMENOrdering Facility: [facility] Address: [address] [place] [address] Result Comment: Radha mated Glomerular Filtration Rate [...] reflect actual GFR. Performed By: #### 3 016-3, 82539-1 ####BA[facility] LABORATORYCLIA [id number] [address] [place]#### 3024-7 ####[facility] LABCLIA [id number] [address] [place] Glucose [Mass/Vol] 80 mg/dL Normal 74-99 [facility] Comment on above: Order Comment: Vita florez Type: BLOOD SPECIMENOrdering Facility: [facility] Address: [address] [place] [address] Result Comment: The [place] [employer] (ADA) provides guidance for cutoff [...] Standards of Medical Care in Diabetes 2016, [place] [employer]. Diabetes Care. 2016.39(Suppl 1). Performed By: #### 3 016-3, 20403-4 ####[facility] LABORATORYCLIA [id number] [address] [place]#### 3024-7 ####[facility] LABCLIA [id number] [address] [address] [place] Potassium [Moles/Vol] 4.3 mmol/L Normal 3.7-5.1 [facility] Comment on above: Order Comment: Speci men Type: BLOOD SPECIMENOrdering Facility: [facility] Address: [facility] [place] [id number] Performed By: #### 3 016-3, 40568-5 ####[facility] LABORATORYCLIA [id number] [place] [address] [place]#### 3024-7 ####[facility] LABCLIA [id number] [place] [address] [place] Sodium [Moles/Vol] 139 mmol/L Normal 136-144 [facility] Comment on above: Order Comment: Speci men Type: BLOOD SPECIMENOrdering Facility: [facility] Address: [address] [place], [place] [address] Performed By: #### 3 016-3, 96045-6 ####BA[facility] LABORATORYCLIA [id number] [place] [address] [place]#### 3024-7 ####[facility] LABCLIA [id number] [address] [address] [place] Urea nitrogen [Mass/Vol] 25 mg/dL High 7-21 [facility] Comment on above: Order Comment: Speci men Type: BLOOD SPECIMENOrdering Facility: [facility] Address: [address] [place] [id number] Performed By: #### 3 016-3, 21843-0 ####BA[facility] LABORATORYCLIA [id number] [place] [address] [place]#### 3024-7 ####[facility] LABCLIA [id number] [address] [address] [place] CBC panel Auto (Bld)on 12-25 Erythrocyte distribution width (RBC) [Ratio] 15.9 % High 11.5-15.0 [facility] Comment on above: Order Comment: Speci men Type: BLOOD SPECIMENOrdering Facility: [facility] Address: [address] [place] [address] Performed By: #### 5 8410-2 ####[facility] LABORATORYCLIA [id number] [address] Hematocrit (Bld) [Volume fraction] 40.0 % Normal 36.0-46.0 [facility] Comment on above: Order Comment: Speci men Type: BLOOD SPECIMENOrdering Facility: [facility] Address: [address] [place] [address] Performed By: #### 5 8410-2 ####[facility] LABORATORYCLIA [id number] [address] Hemoglobin (Bld) [Mass/Vol] 13.0 g/dL Normal 11.5-15.5 [facility] Comment on above: Order Comment: Speci men Type: BLOOD SPECIMENOrdering Facility: [facility] Address: [address] [place] [address] Performed By: #### 5 8410-2 ####[facility] LABORATORYCLIA [id number] [address] MCH (RBC) [Entitic mass] 29.1 pg Normal 26.0-34.0 [facility] Comment on above: Order Comment: Speci men Type: BLOOD SPECIMENOrdering Facility: [facility] Address: [address] [place] [address] Performed By: #### 5 8410-2 ####[facility] LABORATORYCLIA [id number] [address] MCHC (RBC) [Mass/Vol] 32.5 g/dL Normal 30.5-36.0 [facility] Comment on above: Order Comment: Speci men Type: BLOOD SPECIMENOrdering Facility: [facility] Address: [address] [place] [address] Performed By: #### 5 8410-2 ####[facility] LABORATORYCLIA [id number] [place] [address] [place] MCV (RBC) [Entitic vol] 89.7 fL Normal 80.0-100.0 [facility] Comment on above: Order Comment: Speci men Type: BLOOD SPECIMENOrdering Facility: [facility] Address: [address] [place] [address] Performed By: #### 5 8410-2 ####BA[facility] LABORATORYCLIA [id number] [place] [address] [place] Nucleated RBC (Bld) [#/Vol] 10*3/uL Normal <0.01 [facility] Comment on above: Order Comment: Speci men Type: BLOOD SPECIMENOrdering Facility: [facility] Address: [address] [place] [address] Performed By: #### 5 8410-2 ####BA[facility] LABORATORYCLIA [id number] [place] [address] [place] Platelet mean volume (Bld) [Entitic vol] 10.2 fL Normal 9.0-12.7 [facility] Comment on above: Order Comment: Speci men Type: BLOOD SPECIMENOrdering Facility: [facility] Address: [address] [place] [address] Performed By: #### 5 8410-2 ####[facility] LABORATORYCLIA [id number] [place] [address] [place] Platelets (Bld) [#/Vol] 324 10*3/uL Normal 150-400 [facility] Comment on above: Order Comment: Speci men Type: BLOOD SPECIMENOrdering Facility: [facility] Address: [address] [place] [address] Performed By: #### 5 8410-2 ####[facility] LABORATORYCLIA [id number] [place] [address] [place] RBC (Bld) [#/Vol] 4.46 10*6/uL Normal 3.90-5.20 [facility] Comment on above: Order Comment: Speci men Type: BLOOD SPECIMENOrdering Facility: [facility] Address: [address] [place] [address] Performed By: #### 5 8410-2 ####BA[facility] LABORATORYCLIA [id number] [place] [address] [place] WBC (Bld) [#/Vol] 9.63 10*3/uL Normal 3.70-11.00 [facility] Comment on above: Order Comment: Speci men Type: BLOOD SPECIMENOrdering Facility: [facility] Address: [facility] [address] Performed By: #### 5 8410-2 ####[facility] LABORATORYCLIA [id number] [place] [address] [facility] CONSULTon 12-25-2024 CONSULT HNO ID: [id number] Author: ROJAS MATTHEWS MD Service: Cardiovascular Medicine Author Type: Physician Type: Consults Filed: 12/25/2024 15:05 Note Text: . [facility] [place] Domenic Rayo Department of Cardiovascular Medicine SECTION OF [facility] Consultation Note Name: Na Good : 1935 Primary Physician: Johnson Watson MD, MD Consulting Physician: Liam Smith MD Primary Etymology Professor: SERVICE DATE: December 25, 2024 ADMISSION HISTORY [...] (Oral) Resp 18 Ht 157.5 cm (5' 2) Wt 55.6 kg (122 lb 9.2 oz) [...] diminished int (more content not included)... Normal [facility] HISTORY PHYSICALon HISTORY PHYSICAL HNO ID: [id number] Author: LIAM SMITH MD Service: General Internal Medicine Author Type: Physician Type: H&P Filed: 12/25/2024 14:11 Note Text: [facility] STAFF PHYSICIAN NOTE OF PERSONAL INVOLVEMENT IN [...] counseling and/or coordinating care for the patient. Goab-ev-umph time was 35 minutes SIGNATURE: Liam Smith [...] thrombus (eliquis), HTN, tremors, macular degeneration, CAD, KOOTENAI, and insomnia. Her medical records in [facility] are from [place], [place]. Daughter, Janelle is at the bedside. (She is from [place]). She moved back to [place] in August due to the altitude- shortness of breath. She is residing at [facility] in [place]. She does not know all her medications as they administer them for her. She provided AL paperwork. She is A/ox3, very KOOTENAI, she uses 2 walking sticks to ambulate, she has NEW/ occasional dry, non productive cough, she is on RA, lungs diminished, no edema. Daughter requesting cardiology to see her since she has not established a tack puller machine since moving here. Daughter informs me while [...] Respiratory: P (more content not included)... Normal [facility] T4 Free SerPl-mCncon 025 Free T4 [Mass/Vol] 1.9 ng/dL High 0.9-1.7 [facility] Comment on above: Order Comment: Speci men Type: BLOOD SPECIMENOrdering Facility: [facility] Address: [address] [place] [address] Performed By: #### 3 016-3, 66449-2 ####[facility] LABORATORYCLIA [id number] [place] [address] [place]#### 3024-7 ####[facility] LABCLIA [id number] [address] [place] THERAPY NTon 12-25-2024 THERAPY NT HNO ID: [id number] Author: CAROLE HUGHES OT/Amy Service: Occupational Therapy Author Type: Occupational Therapist Type: Therapy (PT/OT/Speech/Resp) Filed: 12/25/2024 11:37 Note Text: Summary: OT Evaluation Occupational Therapy Evaluation Summary SERVICE DATE: 12/25/2024 SERVICE TIME: 1103 to 1127 ROOM: ZI-8S-0392-2 OT 6 Clicks Score: 20 DISCHARGE RECOMMENDATIONS Home Recommended Discharge Disposition Comments: return to [facility] Anticipated Discharge Needs: Physical Assist [...] baseline with ADLs and functional mobility/transfers, very KOOTENAI, follows commands appropriately, reports no questions/concerns for returning to [facility] PRECAUTIONS Bed/Chair Alarm, Fall Risk CURRENT HOSPITAL COURSE Patient presents with abdominal pain and Shortness of Breath, admitted for acute on chronic CHF Relevant Past Medical History: cardiomyopathy, goiter, osteopenia, pleural effusions, macular degeneration, tremors, HTN, LV thrombus, CHF, KOOTENAI, insomnia HOME LIVING Patient Lives With: Facility Care ([facility]) Assistance Available: 24-Hour (has a [...] TREATMENT INTERVENTIONS Evaluation, Self Senior Living Management ([address]) Timed Code Treatment (minutes): 9 Skilled Treatment Time (minutes): 24 TRAINING AND EDUCATION PROVIDED Activity Adaptation/Block Cleaner y Strategies, Adaptive Equipment/DME, Bed Mobility, Benefits of In-Hospital Mobility, Cognitive Skills, Command Following, Discharge Planning, Expected Functional Level, Functional Mobility Involving ADLs, Insight into Deficits, Lower Extremity Dressing, Memory/Attention, Orientation, Positioning, Role of Occupational Therapy, Safety/Judgment, Sitting Balance to Improve Bowman with ADLs/Self-Care, Standing Balance to Improve Bowman with ADLs/Self-Care, Transfer - Bed to Chair, [...] Toilet/Commode S (more content not included)... Normal [facility] TSH SerPl-aCncon 12-25-2024 TSH Qn 0.326 m[IU]/L Normal 0.270-4.200 [facility] Comment on above: Order Comment: Speci men Type: BLOOD SPECIMENOrdering Facility: [facility] Address: [address] [place] [address] Performed By: #### 3 016-3, 64093-5 ####[facility] LABORATORYCLIA [id number] [address] [place]#### 3024-7 ####[facility] LABCLIA [id number] [address] [place] ALLIED HEALTHon 12-24-2024 ALLIED HEALTH HNO ID: [id number] Author: PETER QUAN RT(R) Service: Radiology Author Type: Cloth Booker Type: Allied Health Filed: 12/24/2024 13:03 Note [...] PATIENT PRESENTS WITH AN IMPLANTABLE OR ATTACHED LIGHTING ENGINEERING TECHNICIAN: No RADIOLOGY DEPARTMENT: General X-ray: Exam(s) Completed: Chest X-Ray PERIPHERAL IV DATA: Not applicable SIGNED BY: Peter Quan RT(R) December 24, 2024 1:03 PM Normal [facility] Basic metabolic 2000 panelon 12-24-2024 Anion gap [Moles/Vol] 12 mmol/L Normal 8-15 [facility] Comment on above: Order Comment: Specsj florez Type: BLOOD SPECIMENOrdering Facility: [facility] Address: [address] [place] [address] Performed By: #### 3 3762-6, HSTNT, 79192-1, 31351-7, 3016-3 ####[facility] LABORATORYCLIA [id number] [place] [address] [place] Calcium [Mass/Vol] 9.5 mg/dL Normal 8.5-10.2 [facility] Comment on above: Order Comment: Vita florez Type: BLOOD SPECIMENOrdering Facility: [facility] Address: [address] [place] [address] Performed By: #### 3 3762-6, HSTNT, 70799-0, 77962-1, 3016-3 ####[facility] LABORATORYCLIA [id number] [place] [address] [place] Chloride [Moles/Vol] 101 mmol/L Normal 98-107 [facility] Comment on above: Order Comment: Speci men Type: BLOOD SPECIMENOrdering Facility: [facility] Address: [address] [place] [address] Performed By: #### 3 3762-6, HSTNT, 36716-0, 12863-3, 3016-3 ####[facility] LABORATORYCLIA [id number] [place] [address] [place] CO2 [Moles/Vol] 23 mmol/L Normal 22-30 [facility] Comment on above: Order Comment: Speci men Type: BLOOD SPECIMENOrdering Facility: [facility] Address: [address] [place] [address] Performed By: #### 3 3762-6, HSTNT, 56285-0, 25266-7, 3016-3 ####[facility] LABORATORYCLIA [id number] [place] [address] [place] Creatinine [Mass/Vol] 0.87 mg/dL Normal 0.58-0.96 [facility] Comment on above: Order Comment: Speci men Type: BLOOD SPECIMENOrdering Facility: [facility] Address: [address] [place] [address] Performed By: #### 3 3762-6, HSTNT, 32173-9, 38233-9, 3016-3 ####[facility] LABORATORYCLIA [id number] [place] [id number] [place] eGFRcr SerPlBld CKD-EPI 2020 64 mL/min/1.73m??? Normal >=60 [facility] Comment on above: Order Comment: [facility] Type: BLOOD SPECIMENOrdering Facility: [facility] Address: [address] [place] [address] Result Comment: Radah mated Glomerular Filtration Rate (eGFR) is calculated [...] GFR. Performed By: #### 3 3762-6, HSTNT, 45799-1, 10488-0, 3016-3 ####[facility] LABORATORYCLIA [id number] [place] [address] [place] Glucose [Mass/Vol] 95 mg/dL Normal 74-99 [facility] Comment on above: Order Comment: Speci [facility] Type: BLOOD SPECIMENOrdering Facility: [facility] Address: [address] [place] [address] Result Comment: The [place] Diabetes Association (ADA) provides guidance for cutoff [...] Standards of Medical Care in Diabetes 2016, [place] [employer]. Diabetes Care. 2016.39(Suppl 1). Performed By: #### 3 3762-6, HSTNT, 89602-7, 57456-7, 3016-3 ####[facility] LABORATORYCLIA [id number] [place] [address] [place] Potassium [Moles/Vol] 5.1 mmol/L Normal 3.7-5.1 [facility] Comment on above: Order Comment: Valei men Type: BLOOD SPECIMENOrdering Facility: [facility] Address: [address] [place] [id number] Performed By: #### 3 3762-6, HSTNT, , 07658-5, 6-3 ####[facility] LABORATORYCLIA [id number] [place] [address] [place] Sodium [Moles/Vol] 136 mmol/L Normal 136-144 [facility] Comment on above: Order Comment: Vita men Type: BLOOD SPECIMENOrdering Facility: [facility] Address: [address] [place] [address] Performed By: #### 3 3762-6, HSTNT, 92074-3, 87939-7, 3016-3 ####[facility] LABORATORYCLIA [id number] [place] [id number] [place] Urea nitrogen [Mass/Vol] 24 mg/dL High 7-21 [facility] Comment on above: Order Comment: Valei men Type: BLOOD SPECIMENOrdering Facility: [facility] Address: [address] [place] [address] Performed By: #### 3 3762-6, HSTNT, 10263-6, 32994-0, 3016-3 ####[facility] LABORATORYCLIA [id number] [place] [address] [place] CBC W Auto Differential pane l (Bld)on 12-24-2024 Basophils (Bld) [#/Vol] 0.09 10*3/uL Normal <0.11 [facility] Comment on above: Order Comment: Speci men Type: BLOOD SPECIMENOrdering Facility: [facility] Address: [address] [place] [address] Performed By: #### 5 7021-8 ####[facility] LABORATORYCLIA [id number] [address] [place] Basophils/100 WBC (Bld) 0.9 % Normal [facility] Comment on above: Order Comment: Speci men Type: BLOOD SPECIMENOrdering Facility: [facility] Address: [address] [place] [address] Performed By: #### 5 7021-8 ####[facility] LABORATORYCLIA [id number] [place] [address] [place] Differential cell count method Nom (Bld) Auto Normal [facility] Comment on above: Order Comment: Speci men Type: BLOOD SPECIMENOrdering Facility: [facility] Address: [address] [place] [address] Performed By: #### 5 7021-8 ####[facility] LABORATORYCLIA [id number] [place] [address] [place] Eosinophils (Bld) [#/Vol] 0.04 10*3/uL Normal <0.46 [facility] Comment on above: Order Comment: Speci men Type: BLOOD SPECIMENOrdering Facility: [facility] Address: [address] [place] [address] Performed By: #### 5 7021-8 ####[facility] LABORATORYCLIA [id number] [address] [place] Eosinophils/100 WBC (Bld) 0.4 % Normal [facility] Comment on above: Order Comment: Speci men Type: BLOOD SPECIMENOrdering Facility: [facility] Address: [address] [place] [address] Performed By: #### 5 7021-8 ####[facility] LABORATORYCLIA [id number] [place] [address] [place] Erythrocyte distribution width (RBC) [Ratio] 16.1 % High 11.5-15.0 [facility] Comment on above: Order Comment: Speci men Type: BLOOD SPECIMENOrdering Facility: [facility] Address: [address] [place] [address] Performed By: #### 5 7021-8 ####[facility] LABORATORYCLIA [id number] [place] [address] [place] Hematocrit (Bld) [Volume fraction] 42.0 % Normal 36.0-46.0 [facility] Comment on above: Order Comment: Speci men Type: BLOOD SPECIMENOrdering Facility: [facility] Address: [address] [place] [address] Performed By: #### 5 7021-8 ####[facility] LABORATORYCLIA [id number] [place] [address] [place] Hemoglobin (Bld) [Mass/Vol] 14.0 g/dL Normal 11.5-15.5 [facility] Comment on above: Order Comment: Speci men Type: BLOOD SPECIMENOrdering Facility: [facility] Address: [address] [place] [address] Performed By: #### 5 7021-8 ####[facility] LABORATORYCLIA [id number] [place] [address] [place] Immature granulocytes (Bld) [#/Vol] 0.04 10*3/uL Normal <0.10 [facility] Comment on above: Order Comment: Speci men Type: BLOOD SPECIMENOrdering Facility: [facility] Address: [address] [place] [address] Performed By: #### 5 7021-8 ####[facility] LABORATORYCLIA [id number] [place] [address] [place] Immature granulocytes/100 WBC (Bld) 0.4 % Normal [facility] Comment on above: Order Comment: Speci men Type: BLOOD SPECIMENOrdering Facility: [facility] Address: [address] [place] [address] Performed By: #### 5 7021-8 ####[facility] LABORATORYCLIA [id number] [address] Lymphocytes (Bld) [#/Vol] 1.01 10*3/uL Normal 1.00-4.00 [facility] Comment on above: Order Comment: Speci men Type: BLOOD SPECIMENOrdering Facility: [facility] Address: [address] [place] [address] Performed By: #### 5 7021-8 ####[facility] LABORATORYCLIA [id number] [address] Lymphocytes/100 WBC (Bld) 10.4 % Normal [facility] Comment on above: Order Comment: Speci men Type: BLOOD SPECIMENOrdering Facility: [facility] Address: [address] [place] [address] Performed By: #### 5 7021-8 ####[facility] LABORATORYCLIA [id number] [address] MCH (RBC) [Entitic mass] 30.0 pg Normal 26.0-34.0 [facility] Comment on above: Order Comment: Speci men Type: BLOOD SPECIMENOrdering Facility: [facility] Address: [address] [place] [address] Performed By: #### 5 7021-8 ####[facility] LABORATORYCLIA [id number] [address] MCHC (RBC) [Mass/Vol] 33.3 g/dL Normal 30.5-36.0 [facility] Comment on above: Order Comment: Speci men Type: BLOOD SPECIMENOrdering Facility: [facility] Address: [address] [place] [address] Performed By: #### 5 7021-8 ####[facility] LABORATORYCLIA [id number] [address] MCV (RBC) [Entitic vol] 90.1 fL Normal 80.0-100.0 [facility] Comment on above: Order Comment: Speci men Type: BLOOD SPECIMENOrdering Facility: [facility] Address: [address] [place] [address] Performed By: #### 5 7021-8 ####[facility] LABORATORYCLIA [id number] [address] [place] Monocytes (Bld) [#/Vol] 0.81 10*3/uL Normal <0.87 [facility] Comment on above: Order Comment: Speci men Type: BLOOD SPECIMENOrdering Facility: [facility] Address: [address] [place] [address] Performed By: #### 5 7021-8 ####[facility] LABORATORYCLIA [id number] [address] Monocytes/100 WBC (Bld) 8.3 % Normal [facility] Comment on above: Order Comment: Speci men Type: BLOOD SPECIMENOrdering Facility: [facility] Address: [address] [place] [address] Performed By: #### 5 7021-8 ####BA[facility] LABORATORYCLIA [id number] [place] [address] [place] Neutrophils (Bld) [#/Vol] 7.72 10*3/uL High 1.45-7.50 [facility] Comment on above: Order Comment: Speci men Type: BLOOD SPECIMENOrdering Facility: [facility] Address: [address] [place] [address] Performed By: #### 5 7021-8 ####BA[facility]R LABORATORYCLIA [id number] [address] [place] Neutrophils/100 WBC (Bld) 79.6 % Normal [facility] Comment on above: Order Comment: Speci men Type: BLOOD SPECIMENOrdering Facility: [facility] Address: [address] [place] [address] Performed By: #### 5 7021-8 ####BA[facility] LABORATORYCLIA [id number] [place] [address] [place] Nucleated RBC (Bld) [#/Vol] 10*3/uL Normal <0.01 [facility] Comment on above: Order Comment: Speci men Type: BLOOD SPECIMENOrdering Facility: [facility] Address: [address] [place] [address] Performed By: #### 5 7021-8 ####BAIRD LABORATORYCLIA [id number] [address] [place] Nucleated RBC/100 WBC (Bld) [Ratio] 0.0 /100 WBC Normal [facility] Comment on above: Order Comment: Speci men Type: BLOOD SPECIMENOrdering Facility: [facility] Address: [address] [place] [address] Performed By: #### 5 7021-8 ####BA[facility] LABORATORYCLIA [id number] [place] [address] [place] Platelet mean volume (Bld) [Entitic vol] 10.4 fL Normal 9.0-12.7 [facility] Comment on above: Order Comment: Speci men Type: BLOOD SPECIMENOrdering Facility: [facility] Address: [address] [place] [address] Performed By: #### 5 7021-8 ####BA[facility] LABORATORYCLIA [id number] [place] [address] [place] Platelets (Bld) [#/Vol] 386 10*3/uL Normal 150-400 [facility] Comment on above: Order Comment: Speci men Type: BLOOD SPECIMENOrdering Facility: [facility] Address: [address] [place] [address] Performed By: #### 5 7021-8 ####BA[facility] LABORATORYCLIA [id number] [place] [address] [place] RBC (Bld) [#/Vol] 4.66 10*6/uL Normal 3.90-5.20 [facility] Comment on above: Order Comment: Speci men Type: BLOOD SPECIMENOrdering Facility: [facility] Address: [address] [place] [address] Performed By: #### 5 7021-8 ####[facility] LABORATORYCLIA [id number] [place] [address] [place] WBC (Bld) [#/Vol] 9.71 10*3/uL Normal 3.70-11.00 [facility] Comment on above: Order Comment: Speci men Type: BLOOD SPECIMENOrdering Facility: [facility] Address: [facility] [address] Performed By: #### 5 7021-8 ####BAIRD LABORATORYCLIA [id number] [place] [address] [place] ECG COMPLETEon 12-24-2024 ECG COMPLETE Ventricular Rate : 9 5 BPM Atrial Rate : 95 BPM P-R Interval : 162 ms QRS Duration : 138 ms Q-T Interval : 396 ms QTC Calculation(Bazett) : 497 ms Calculated P Strunk : -5 degrees Calculated R Strunk : -33 degrees Calculated T Strunk : 147 degrees NORMAL SINUS RHYTHM LEFT AXIS DEVIATION LEFT VENTRICULAR HYPERTROPHY WITH QRS WIDENING AND REPOLARIZATION ABNORMALITY ( R in aVL , Db product ) CANNOT RULE OUT SEPTAL INFARCT , AGE UNDETERMINED ABNORMAL ECG NO PREVIOUS ECGS AVAILABLE Confirmed by ROJAS MATTHEWS MD ([id number]) on 12/25/2024 5:11:53 PM NAME : NA GOOD PID : [id number] : 1935 Gender : Female Race : ORD : [id number] Procedure Date : Dec 24 2024 19:25:38 Edit Date : Dec 25 2024 17:11:57 Diagnosis: NORMAL SINUS RHYTHM LEFT AXIS DEVIATION LEFT VENTRICULAR HYPERTROPHY WITH QRS WIDENING AND REPOLARIZATION ABNORMALITY ( R in aVL , Dover product ) CANNOT RULE OUT SEPTAL INFARCT , AGE UNDETERMINED ABNORMAL ECG NO PREVIOUS ECGS AVAILABLE Confirmed by ROJAS MATTHEWS MD ([id number]) on 12/25/2024 5:11:53 PM Test Reason : Shortness of Breath Location : 5 : 3S 0311 Overread By : ROJAS MATTHEWS MD Edited By : ROJAS MATTHEWS MD Referred By : , Acquired by : [id number], Normal [facility] ED PROV NOTEon 12-24-2024 ED PROV NOTE HNO ID: [id number] Author: SOCAR LIZARRAGA DO Service: Emergency Medicine Author Type: [...] by: EMS (more content not included)... Normal [facility] Gas and Carbon monoxide pane l (BldV)on 12-24-2024 Base excess Calc (BldV) [Moles/Vol] 1 mmol/L Normal 0-2 [facility] Comment on above: Order Comment: Speci men Type: VENOUS BLOOD SPECIMENOrdering Facility: [facility] Address: [address] [place] [address] Performed By: #### 2 4344-4 ####[facility] RESPIRATORYCLIA [id number] [facility] [id number] [address] [address] Calcium.ionized (Bld) [Mass/Vol] 1.17 mmol/L Normal 1.08-1.30 [facility] Comment on above: Order Comment: Speci men Type: VENOUS BLOOD SPECIMENOrdering Facility: [facility] Address: [address] [place] [address] Performed By: #### 2 4344-4 ####[facility] RESPIRATORYIA [id number] [facility] [id number] [address] [address] Carboxyhemoglobin (BldV) [Mass fraction] 1.3 % Normal 0.0-2.0 [facility] Comment on above: Order Comment: Speci men Type: VENOUS BLOOD SPECIMENOrdering Facility: [facility] Address: [address] [place] [address] Result Comment: Carb oxyhemoglobin Reference Range for Smokers: 2.0-8.0% Performed By: #### 2 4344-4 ####[facility] RESPIRATORYIA [id number] [facility]OSP[facility] [id number] [address] [address] CO2 (BldV) [Partial pressure] 40 mm[Hg] Low 42-55 [facility] Comment on above: Order Comment: Speci men Type: VENOUS BLOOD SPECIMENOrdering Facility: [facility] Address: [address] [place] [address] Performed By: #### 2 4344-4 ####[facility] RESPIRATORYIA [id number] [facility] [id number] [address] [address] CO2 adjusted to patient's actual temperature (BldV) [Partial pressure] Normal [facility] Comment on above: Order Comment: Speci men Type: VENOUS BLOOD SPECIMENOrdering Facility: [facility] Address: [address] [place] [address] Performed By: #### 2 4344-4 ####[facility] RESPIRATORYCLIA [id number] [facility] [id number] [address] [address] HCO3 (Bld) [Moles/Vol] 25 mmol/L Normal 24-28 [facility] Comment on above: Order Comment: Speci men Type: VENOUS BLOOD SPECIMENOrdering Facility: [facility] Address: [address] [address] Performed By: #### 2 4344-4 ####[facility] RESPIRATORYCLIA [id number] [facility]OS[facility] [id number] [address] [address] Hemoglobin (Bld) [Mass/Vol] 13.8 g/dL Normal 11.5-15.5 [facility] Comment on above: Order Comment: Speci men Type: VENOUS BLOOD SPECIMENOrdering Facility: [facility] Address: [address] [place] [address] Performed By: #### 2 4344-4 ####[facility] RESPIRATORYIA [id number] [facility]AT[facility] [id number] [address] [address] Lactate [Moles/Vol] 2.2 mmol/L Normal 0.5-2.2 [facility] Comment on above: Order Comment: Speci men Type: VENOUS BLOOD SPECIMENOrdering Facility: [facility] Address: [address] [place] [address] Performed By: #### 2 4344-4 ####[facility] RESPIRATORYCLIA [id number] [facility] [id number] [address] [address] Methemoglobin (Bld) [Mass fraction] % Normal 0.0-1.5 [facility] Comment on above: Order Comment: Speci men Type: VENOUS BLOOD SPECIMENOrdering Facility: [facility] Address: [address] [place] [address] Performed By: #### 2 4344-4 ####[facility] RESPIRATORYIA [id number] [facility]OS[facility]IRAT[facility] [id number] [address] [address] O2 THERAPY RA=Room Air [facility] Comment on above: Order Comment: Speci men Type: VENOUS BLOOD SPECIMENOrdering Facility: [facility] Address: [address] [place] [address] Performed By: #### 2 4344-4 ####[facility] RESPIRATORYCLIA [id number] [facility] [id number] [address] [address] Oxygen (BldV) [Partial pressure] mm[Hg] Low 35-45 [facility] Comment on above: Order Comment: Speci men Type: VENOUS BLOOD SPECIMENOrdering Facility: [facility] Address: [address] [place] [address] Performed By: #### 2 4344-4 ####[facility] RESPIRATORYCLIA [id number] [facility]OS[facility] RESPIRAT[facility] [id number] [address] [address] Oxygen adjusted to patient's actual temperature (BldV) [Partial pressure] [facility] Comment on above: Order Comment: Speci men Type: VENOUS BLOOD SPECIMENOrdering Facility: [facility] Address: [address] [place] [address] Performed By: #### 2 4344-4 ####[facility] RESPIRATORYCLIA [id number] [facility]OS[facility] RESPIRAT[facility] [id number] [address] [address] Oxygen saturation in Venous blood 53 % Low 60-85 [facility] Comment on above: Order Comment: Speci men Type: VENOUS BLOOD SPECIMENOrdering Facility: [facility] Address: [address] [place] [address] Performed By: #### 2 4344-4 ####[facility] RESPIRATORYCLIA [id number] [facility] [id number] [address] [address] Oxyhemoglobin (BldV) [Mass fraction] 52 % Low 60-85 [facility] Comment on above: Order Comment: Speci men Type: VENOUS BLOOD SPECIMENOrdering Facility: [facility] Address: [address] [place] [address] Performed By: #### 2 4344-4 ####[facility] RESPIRATORYCLIA [id number] [facility] RESPIRAT[facility] [id number] [address] [address] pH (BldV) 7.41 [pH] Normal 7.32-7.42 [facility] Comment on above: Order Comment: Speci men Type: VENOUS BLOOD SPECIMENOrdering Facility: [facility] Address: [address] [place] [address] Performed By: #### 2 4344-4 ####[facility] RESPIRATORYIA [id number] [facility]OS[facility] RESPIRATORY [id number] [address] [address] pH adjusted to patient's actual temperature (BldV) Normal [facility] Comment on above: Order Comment: Speci men Type: VENOUS BLOOD SPECIMENOrdering Facility: [facility] Address: [address] [place] [address] Performed By: #### 2 4344-4 ####[facility]PIRATORYBRATTLEBOR[facility] [id number] [facility] RESPIRATORY [id number] [place] [address] Potassium [Moles/Vol] 5.4 mmol/L High 3.5-5.0 [facility] Comment on above: Order Comment: Speci men Type: VENOUS BLOOD SPECIMENOrdering Facility: [facility] Address: [address] [place] [address] Performed By: #### 2 4344-4 ####[facility] [id number] HOSP[facility] RESPIRATORY [id number] [address] [address] HIGH SENSITIVITY TROPONIN To n 12-24-2024 Troponin T.cardiac High sensitivity method [Mass/Vol] 33 ng/L High <12 [facility] Comment on above: Order Comment: Speci men Type: BLOOD SPECIMEN [facility] Address: [address] [place] [address] Performed By: #### 3 3762-6, HSTNT, 94561-9, 89334-1, 3016-3 #### [facility] CLIA [id number] [address] [place] [address] [place] Magnesium SerPl-mCncon 12-24 Magnesium [Mass/Vol] 2.3 mg/dL Normal 1.7-2.3 [facility] Comment on above: Order Comment: Speci men Type: BLOOD SPECIMENOrdering Facility: [facility] Address: [address] [place] [address] Performed By: #### 3 3762-6, HSTNT, 92854-5, 36721-6, 3016-3 ####[facility] LABORATORYCLIA [id number] [address] NT-proBNP SerPl-mCncon 12-24 Natriuretic peptide.B prohormone N-Terminal [Mass/Vol] 03857 pg/mL High <450 [facility] Comment on above: Order Comment: Speci men Type: BLOOD SPECIMENOrdering Facility: [facility] Address: [address] [place] [address] Performed By: #### 3 3762-6, HSTNT, 08016-6, 53848-2, 3016-3 ####[facility] LABORATORYCLIA [id number] [address] [place] TSH SerPl-aCncon 12-24-2024 TSH Qn 0.465 m[IU]/L Normal 0.270-4.200 [facility] Comment on above: Order Comment: Speci men Type: BLOOD SPECIMENOrdering Facility: [facility] Address: [address] [place] [address] Performed By: #### 3 3762-6, HSTNT, 59492-0, 24172-7, 3016-3 ####[facility] LABORATORYCLIA [id number] [address] [place] XR CHEST 2V FRONTAL/LATon XR [...] pulmonary edema. Superimposed infection cannot be excluded. Classified Advertising Clerk: PSCB Transcribe Date/Time: Dec 24 2024 1:15P Dictated by : ROXANE CRUZ MD This examination was interpreted and the report reviewed and electronically signed by: ROXANE CRUZ MD on Dec 24 2024 1:19PM EST [id number] Normal [facility] CBC-Complete Blood Cnt No Di ffon 12-11-2024 HCT Normal 37-47 [facility] Comment on above: Order Comment: 546.1 Result Comment: LABS WERE DONE 12/09/24 DOES NOT NEED REPEATED PER NURSE Performed By: #### L 500.4050, L100.0500 #### [facility] [address] [place], [address] HGB Normal 12.0-15.0 [facility] Comment on above: Order Comment: 546.1 Result Comment: LABS WERE DONE 12/09/24 DOES NOT NEED REPEATED PER NURSE Performed By: #### L 500.4050, L100.0500 #### [facility] [address] [place], [address] MCH Normal 27.0-32.0 [facility] Comment on above: Order Comment: 546.1 Result Comment: LABS WERE DONE 12/09/24 DOES NOT NEED REPEATED PER NURSE Performed By: #### L 500.4050, L100.0500 #### [facility] [address] [place], [address] MCHC Normal 32-36 [facility] Comment on above: Order Comment: 546.1 Result Comment: LABS WERE DONE 12/09/24 DOES NOT NEED REPEATED PER NURSE Performed By: #### L 500.4050, L100.0500 #### [facility] [address] [place], [address] MCV Normal 81-99 [facility] Comment on above: Order Comment: 546.1 Result Comment: LABS WERE DONE 12/09/24 DOES NOT NEED REPEATED PER NURSE Performed By: #### L 500.4050, L100.0500 #### [facility] [address] [place], [address] PLT Normal 150-450 [facility] Comment on above: Order Comment: 546.1 Result Comment: LABS WERE DONE 12/09/24 DOES NOT NEED REPEATED PER NURSE Performed By: #### L 500.4050, L100.0500 #### [facility] [address] [place], [address] RBC Normal 4.2-5.4 [facility] Comment on above: Order Comment: 546.1 Result Comment: LABS WERE DONE 12/09/24 DOES NOT NEED REPEATED PER NURSE Performed By: #### L 500.4050, L100.0500 #### [facility] [address] [place], [address] RDW CV Normal 11.6-14.6 [facility] Comment on above: Order Comment: 546.1 Result Comment: LABS WERE DONE 12/09/24 DOES NOT NEED REPEATED PER NURSE Performed By: #### L 500.4050, L100.0500 #### [facility] [address] [place], [address] RDW SD Normal 35.1-43.9 [facility] Comment on above: Order Comment: 546.1 Result Comment: LABS WERE DONE 12/09/24 DOES NOT NEED REPEATED PER NURSE Performed By: #### L 500.4050, L100.0500 #### [facility] [address] [place], [address] WBC Normal 4.4-11.0 [facility] Comment on above: Order Comment: 546.1 Result Comment: LABS WERE DONE 12/09/24 DOES NOT NEED REPEATED PER NURSE Performed By: #### L 500.4050, L100.0500 #### [facility] [address] [place], [address] Comprehensive Metabolic Prof ilon 12-11-2024 ALB Normal 3.4-4.8 [facility] Comment on above: Order Comment: 546.1 Result Comment: LABS WERE DONE 12/09/24 DOES NOT NEED REPEATED PER NURSE Performed By: #### L 500.4050, L100.0500 #### [facility] [address] [place], [address] ALK PHOS Normal 35-104 [facility] Comment on above: Order Comment: 546.1 Result Comment: LABS WERE DONE 12/09/24 DOES NOT NEED REPEATED PER NURSE Performed By: #### L 500.4050, L100.0500 #### [facility] [address] [place], [address] ALT Normal <=34 [facility] Comment on above: Order Comment: 546.1 Result Comment: LABS WERE DONE 12/09/24 DOES NOT NEED REPEATED PER NURSE Performed By: #### L 500.4050, L100.0500 #### [facility] [address] [place], [address] AST Normal <=31 [facility] Comment on above: Order Comment: 546.1 Result Comment: LABS WERE DONE 12/09/24 DOES NOT NEED REPEATED PER NURSE Performed By: #### L 500.4050, L100.0500 #### [facility] [address] [place], [address] BUN Normal 4-19 [facility] Comment on above: Order Comment: 546.1 Result Comment: LABS WERE DONE 12/09/24 DOES NOT NEED REPEATED PER NURSE Performed By: #### L 500.4050, L100.0500 #### [facility] [address] [place], [address] BUN/CRE Normal 10-20 [facility] Comment on above: Order Comment: 546.1 Result Comment: LABS WERE DONE 12/09/24 DOES NOT NEED REPEATED PER NURSE Performed By: #### L 500.4050, L100.0500 #### [facility] [address] [place], [address] Calcium Normal 7.6-11.0 [facility] Comment on above: Order Comment: 546.1 Result Comment: LABS WERE DONE 12/09/24 DOES NOT NEED REPEATED PER NURSE Performed By: #### L 500.4050, L100.0500 #### [facility] [address] [place], [address] CL Normal 98-108 [facility] Comment on above: Order Comment: 546.1 Result Comment: LABS WERE DONE 12/09/24 DOES NOT NEED REPEATED PER NURSE Performed By: #### L 500.4050, L100.0500 #### [facility] [address] [place], [address] CO2 Normal 21.0-32.0 [facility] Comment on above: Order Comment: 546.1 Result Comment: LABS WERE DONE 12/09/24 DOES NOT NEED REPEATED PER NURSE Performed By: #### L 500.4050, L100.0500 #### [facility] [address] [place], [address] CREAT,SERUM Normal 0.70-1.20 [facility] Comment on above: Order Comment: 546.1 Result Comment: LABS WERE DONE 12/09/24 DOES NOT NEED REPEATED PER NURSE Performed By: #### L 500.4050, L100.0500 #### [facility] [address] [place], [address] eGFR Normal >60 [facility] Comment on above: Order Comment: 546.1 Result Comment: LABS WERE DONE 12/09/24 DOES NOT NEED REPEATED PER NURSE Performed By: #### L 500.4050, L100.0500 #### [facility] [address] [place], [address] GAP Normal 5-15 [facility] Comment on above: Order Comment: 546.1 Result Comment: LABS WERE DONE 12/09/24 DOES NOT NEED REPEATED PER NURSE Performed By: #### L 500.4050, L100.0500 #### [facility] [address] [place], [address] GLU Normal 70-99 [facility] Comment on above: Order Comment: 546.1 Result Comment: LABS WERE DONE 12/09/24 DOES NOT NEED REPEATED PER NURSE Performed By: #### L 500.4050, L100.0500 #### [facility] [address] [place], [address] Potassium Normal 3.3-5.1 [facility] Comment on above: Order Comment: 546.1 Result Comment: LABS WERE DONE 12/09/24 DOES NOT NEED REPEATED PER NURSE Performed By: #### L 500.4050, L100.0500 #### [facility] [address] [place], [address] T BILI Normal 0.00-1.30 [facility] Comment on above: Order Comment: 546.1 Result Comment: LABS WERE DONE 12/09/24 DOES NOT NEED REPEATED PER NURSE Performed By: #### L 500.4050, L100.0500 #### [facility] [address] [place], [address] T PROT Normal 5.9-8.4 [facility] Comment on above: Order Comment: 546.1 Result Comment: LABS WERE DONE 12/09/24 DOES NOT NEED REPEATED PER NURSE Performed By: #### L 500.4050, L100.0500 #### [facility] [address] [place], [address] Comprehensive Metabolic Profil Normal 133-145 [facility] Comment on above: Order Comment: 546.1 Result Comment: LABS WERE DONE 12/09/24 DOES NOT NEED REPEATED PER NURSE Performed By: #### L 500.4050, L100.0500 #### [facility] [address] [place], [address] Basic Metabolic Profile (BMP )on 12-09-2024 BUN/CRE 21.8 RATIO High 10-20 [facility] Comment on above: Order Comment: 546.1 Performed By: #### L 100.0500, L500.2500 #### [facility] [address] [place], [address] Calcium [Mass/Vol] 8.8 mg/dL Normal 7.6-11.0 [facility] Comment on above: Order Comment: 546.1 Performed By: #### L 100.0500, L500.2500 #### [facility] [address] [place], [address] Chloride [Moles/Vol] 101 mmol/L Normal 98-108 [facility] Comment on above: Order Comment: 546.1 Performed By: #### L 100.0500, L500.2500 #### [facility] [address] [place], [address] CO2 [Moles/Vol] 23.2 mmol/L Normal 21.0-32.0 [facility] Comment on above: Order Comment: 546.1 Performed By: #### L 100.0500, L500.2500 #### [facility] [address] [place], [address] Creatinine [Mass/Vol] 0.86 mg/dL Normal 0.70-1.20 [facility] Comment on above: Order Comment: 546.1 Performed By: #### L 100.0500, L500.2500 #### [facility] [address] [place], [address] GAP 11 Normal 5-15 [facility] Comment on above: Order Comment: 546.1 Performed By: #### L 100.0500, L500.2500 #### [facility] [address] [place], [address] GFR/1.73 sq M.predicted among non-blacks MDRD (S/P/Bld) [Vol rate/Area] 65 mL/min/{1.73_m2} Normal >60 [facility] Comment on above: Order Comment: 546.1 Result Comment: mL/m in/1.73m2 CKD-EPI Creatinine Equation (2020) Performed By: #### L 100.0500, L500.2500 #### [facility] [address] [place], [address] Glucose [Mass/Vol] 78 mg/dL Normal 70-99 [facility] Comment on above: Order Comment: 546.1 Performed By: #### L 100.0500, L500.2500 #### [facility] [address] [place], [address] Potassium [Moles/Vol] 4.3 mmol/L Normal 3.3-5.1 [facility] Comment on above: Order Comment: 546.1 Performed By: #### L 100.0500, L500.2500 #### [facility] [address] [place], [address] Sodium [Moles/Vol] 135 mmol/L Normal 133-145 [facility] Comment on above: Order Comment: 546.1 Performed By: #### L 100.0500, L500.2500 #### [facility] [address] [place], [address] Urea nitrogen [Mass/Vol] 19 mg/dL Normal 4-19 [facility] Comment on above: Order Comment: 546.1 Performed By: #### L 100.0500, L500.2500 #### [facility] [address] [place], [address] CBC-Complete Blood Cnt No Di ffon 12-09-2024 Erythrocyte distribution width (RBC) [Ratio] 16.4 % High 11.6-14.6 [facility] Comment on above: Order Comment: 546.1 Performed By: #### L 100.0500, L500.2500 #### [facility] [address] [place], [address] Hematocrit (Bld) [Volume fraction] 37.6 % Normal 37-47 [facility] Comment on above: Order Comment: 546.1 Performed By: #### L 100.0500, L500.2500 #### [facility] [address] [place], [address] Hemoglobin (Bld) [Mass/Vol] 12.5 g/dL Normal 12.0-15.0 [facility] Comment on above: Order Comment: 546.1 Performed By: #### L 100.0500, L500.2500 #### [facility] [address] [place], [address] MCH (RBC) [Entitic mass] 29.8 pg Normal 27.0-32.0 [facility] Comment on above: Order Comment: 546.1 Performed By: #### L 100.0500, L500.2500 #### [facility] [address] [place], [address] MCHC (RBC) [Mass/Vol] 33.2 g/dL Normal 32-36 [facility] Comment on above: Order Comment: 546.1 Performed By: #### L 100.0500, L500.2500 #### [facility] [address] [place], [address] MCV (RBC) [Entitic vol] 89.5 fL Normal 81-99 [facility] Comment on above: Order Comment: 546.1 Performed By: #### L 100.0500, L500.2500 #### [facility] [address] [place], [address] Platelet mean volume (Bld) [Entitic vol] 10.5 fL Normal 6.2-12.0 [facility] Comment on above: Order Comment: 546.1 Performed By: #### L 100.0500, L500.2500 #### [facility] [address] [place], [address] Platelets (Bld) [#/Vol] 345 10*3/uL Normal 150-450 [facility] Comment on above: Order Comment: 546.1 Performed By: #### L 100.0500, L500.2500 #### [facility] [address] [place], [address] RBC (Bld) [#/Vol] 4.20 10*6/uL Normal 4.2-5.4 [facility] Comment on above: Order Comment: 546.1 Performed By: #### L 100.0500, L500.2500 #### [facility] [address] [place], [address] RDW SD 53.6 fl High 35.1-43.9 [facility] Comment on above: Order Comment: 546.1 Performed By: #### L 100.0500, L500.2500 #### [facility] [address] [place], [address] WBC (Bld) [#/Vol] 9.3 10*3/uL Normal 4.4-11.0 [facility] Comment on above: Order Comment: 546.1 Performed By: #### L 100.0500, L500.2500 #### [facility] [address] [place], [address] CBC-Complete Blood Cnt No Di ffon 09-18-2024 Erythrocyte distribution width (RBC) [Ratio] 15.3 % High 11.6-14.6 [facility] Comment on above: Order Comment: 546 Performed By: #### L 100.0500, L501.9985, L500.4050, L500.4100, L506.1001 #### [facility] [address] [place], [address] Hematocrit (Bld) [Volume fraction] 42.2 % Normal 37-47 [facility] Comment on above: Order Comment: 546 Performed By: #### L 100.0500, L501.9985, L500.4050, L500.4100, L506.1001 #### [facility] [address] [place], [address] Hemoglobin (Bld) [Mass/Vol] 13.9 g/dL Normal 12.0-15.0 [facility] Comment on above: Order Comment: 546 Performed By: #### L 100.0500, L501.9985, L500.4050, L500.4100, L506.1001 #### [facility] [address] [place], [address] MCH (RBC) [Entitic mass] 30.0 pg Normal 27.0-32.0 [facility] Comment on above: Order Comment: 546 Performed By: #### L 100.0500, L501.9985, L500.4050, L500.4100, L506.1001 #### [facility] [address] [place], [address] MCHC (RBC) [Mass/Vol] 32.9 g/dL Normal 32-36 [facility] Comment on above: Order Comment: 546 Performed By: #### L 100.0500, L501.9985, L500.4050, L500.4100, L506.1001 #### [facility] [address] [place], [address] MCV (RBC) [Entitic vol] 90.9 fL Normal 81-99 [facility] Comment on above: Order Comment: 546 Performed By: #### L 100.0500, L501.9985, L500.4050, L500.4100, L506.1001 #### [facility] [address] [place], [address] Platelet mean volume (Bld) [Entitic vol] 10.8 fL Normal 6.2-12.0 [facility] Comment on above: Order Comment: 546 Performed By: #### L 100.0500, L501.9985, L500.4050, L500.4100, L506.1001 #### [facility] [address] [place], [address] Platelets (Bld) [#/Vol] 337 10*3/uL Normal 150-450 [facility] Comment on above: Order Comment: 546 Performed By: #### L 100.0500, L501.9985, L500.4050, L500.4100, L506.1001 #### [facility] [address] [place], [address] RBC (Bld) [#/Vol] 4.64 10*6/uL Normal 4.2-5.4 [facility] Comment on above: Order Comment: 546 Performed By: #### L 100.0500, L501.9985, L500.4050, L500.4100, L506.1001 #### [facility] [address] [place], [address] RDW SD 50.5 fl High 35.1-43.9 [facility] Comment on above: Order Comment: 546 Performed By: #### L 100.0500, L501.9985, L500.4050, L500.4100, L506.1001 #### [facility] [address] [place], [address] WBC (Bld) [#/Vol] 9.6 10*3/uL Normal 4.4-11.0 [facility] Comment on above: Order Comment: 546 Performed By: #### L 100.0500, L501.9985, L500.4050, L500.4100, L506.1001 #### [facility] [address] [place], [address] Comprehensive Metabolic Prof ilon 09-18-2024 Albumin [Mass/Vol] 3.4 g/dL Normal 3.4-4.8 [facility] Comment on above: Order Comment: 546 Performed By: #### L 100.0500, L501.9985, L500.4050, L500.4100, L506.1001 #### [facility] [address] [place], [address] Albumin/Globulin [Mass ratio] 1.4 {ratio} Normal 0.9-2.4 [facility] Comment on above: Order Comment: 546 Performed By: #### L 100.0500, L501.9985, L500.4050, L500.4100, L506.1001 #### [facility] [address] [place], [address] ALK PHOS 43 U/L Normal 35-104 [facility] Comment on above: Order Comment: 546 Performed By: #### L 100.0500, L501.9985, L500.4050, L500.4100, L506.1001 #### [facility] [address] [place], [address] ALT [Catalytic activity/Vol] 9 U/L Normal <=34 [facility] Comment on above: Order Comment: 546 Performed By: #### L 100.0500, L501.9985, L500.4050, L500.4100, L506.1001 #### [facility] [address] [place], [address] AST [Catalytic activity/Vol] 20 U/L Normal <=31 [facility] Comment on above: Order Comment: 546 Performed By: #### L 100.0500, L501.9985, L500.4050, L500.4100, L506.1001 #### [facility] [address] [place], [address] Bilirubin [Mass/Vol] 0.37 mg/dL Normal 0.00-1.30 [facility] Comment on above: Order Comment: 546 Performed By: #### L 100.0500, L501.9985, L500.4050, L500.4100, L506.1001 #### [facility] [address] [place], [address] BUN/CRE 27.9 RATIO High 10-20 [facility] Comment on above: Order Comment: 546 Performed By: #### L 100.0500, L501.9985, L500.4050, L500.4100, L506.1001 #### [facility] [address] [place], [address] Calcium [Mass/Vol] 8.8 mg/dL Normal 7.6-11.0 [facility] Comment on above: Order Comment: 546 Performed By: #### L 100.0500, L501.9985, L500.4050, L500.4100, L506.1001 #### [facility] [address] [place], [address] Chloride [Moles/Vol] 108 mmol/L Normal 98-108 [facility] Comment on above: Order Comment: 546 Performed By: #### L 100.0500, L501.9985, L500.4050, L500.4100, L506.1001 #### [facility] [address] [place], [address] CO2 [Moles/Vol] 23.5 mmol/L Normal 21.0-32.0 [facility] Comment on above: Order Comment: 546 Performed By: #### L 100.0500, L501.9985, L500.4050, L500.4100, L506.1001 #### [facility] [address] [place], [address] Creatinine [Mass/Vol] 0.82 mg/dL Normal 0.70-1.20 [facility] Comment on above: Order Comment: 546 Performed By: #### L 100.0500, L501.9985, L500.4050, L500.4100, L506.1001 #### [facility] [address] [place], [address] GAP 10 Normal 5-15 [facility] Comment on above: Order Comment: 546 Performed By: #### L 100.0500, L501.9985, L500.4050, L500.4100, L506.1001 #### [facility] [address], [address] GFR/1.73 sq M.predicted among non-blacks MDRD (S/P/Bld) [Vol rate/Area] 69 mL/min/{1.73_m2} Normal >60 [facility] Comment on above: Order Comment: 546 Result Comment: mL/m in/1.73m2 CKD-EPI Creatinine Equation (2020) Performed By: #### L 100.0500, L501.9985, L500.4050, L500.4100, L506.1001 #### [facility] [address] [place], [address] Globulin (S) [Mass/Vol] 2.5 g/dL Normal 2.2-4.2 [facility] Comment on above: Order Comment: 546 Performed By: #### L 100.0500, L501.9985, L500.4050, L500.4100, L506.1001 #### [facility] [address] [place], [address] Glucose [Mass/Vol] 88 mg/dL Normal 70-99 [facility] Comment on above: Order Comment: 546 Performed By: #### L 100.0500, L501.9985, L500.4050, L500.4100, L506.1001 #### [facility] [address] [place], [address] Potassium [Moles/Vol] 4.1 mmol/L Normal 3.3-5.1 [facility] Comment on above: Order Comment: 546 Performed By: #### L 100.0500, L501.9985, L500.4050, L500.4100, L506.1001 #### [facility] [address] [place], [address] Sodium [Moles/Vol] 141 mmol/L Normal 133-145 [facility] Comment on above: Order Comment: 546 Performed By: #### L 100.0500, L501.9985, L500.4050, L500.4100, L506.1001 #### [facility] [address] [place], [address] T PROT 5.8 g/dL Low 5.9-8.4 [facility] Comment on above: Order Comment: 546 Performed By: #### L 100.0500, L501.9985, L500.4050, L500.4100, L506.1001 #### [facility] [address] [place], [address] Urea nitrogen [Mass/Vol] 23 mg/dL High 4-19 [facility] Comment on above: Order Comment: 546 Performed By: #### L 100.0500, L501.9985, L500.4050, L500.4100, L506.1001 #### [facility] [address] [place], [address] Hemoglobin A1con 09-18-2024 HbA1c (Bld) [Mass fraction] 5.5 % Normal <=5.6 [facility] Comment on above: Order Comment: 546 Result Comment: Norm al < 5.7 % Prediabetic 5.7 - 6.4 % Diabetic >or= 6.5 % Please note range changes. Performed By: #### L 100.0500, L501.9985, L500.4050, L500.4100, L506.1001 #### [facility] [address] [place], [address] Lipid Profileon 09-18-2024 CHOL:HDL 2.43 Normal [facility] Comment on above: Order Comment: 546 Performed By: #### L 100.0500, L501.9985, L500.4050, L500.4100, L506.1001 #### [facility] [address] [place], [address] Cholesterol [Mass/Vol] 136 mg/dL Normal <=200 [facility] Comment on above: Order Comment: 546 Result Comment: Chol esterol level, Desirable <200 mg/dL Borderline high cholesterol 200-239 mg/dL High cholesterol >=240 mg/dL Recommendations of the NCEP Adult Treatment Panel for the following risk-cutoff thresholds for the [place] population. Performed By: #### L 100.0500, L501.9985, L500.4050, L500.4100, L506.1001 #### [facility] [address] [place], [address] Cholesterol in HDL [Mass/Vol] 56 mg/dL Normal [facility] Comment on above: Order Comment: 546 Result Comment: Lyric onal Cholesterol Education Program (NCEP) guidelines: <40 mg/dL: Low HDL-cholesterol (major risk factor for CHD) >= 60 mg/dL: High HDL-cholesterol (negative risk factor for CHD) HDL-cholesterol is affected by a number of factors, e.g. smoking, exercise, hormones, sex and age. Performed By: #### L 100.0500, L501.9985, L500.4050, L500.4100, L506.1001 #### [facility] [address] [place], [address] Cholesterol in LDL [Mass/Vol] 67 mg/dL Normal [facility] Comment on above: Order Comment: 546 Result Comment: Bord zkzusp=994-584 mg/dL Higher Cnhi=967 mg/dL or greater Performed By: #### L 100.0500, L501.9985, L500.4050, L500.4100, L506.1001 #### [facility] [address] [place], [address] Cholesterol in VLDL [Mass/Vol] 14 mg/dL Normal 5-40 [facility] Comment on above: Order Comment: 546 Performed By: #### L 100.0500, L501.9985, L500.4050, L500.4100, L506.1001 #### [facility] [address] [place], [address] Triglyceride [Mass/Vol] 68 mg/dL Normal [facility] Comment on above: Order Comment: 546 Result Comment: The drugs N-Acetylcysteine and Metamizole may falsely depress this assay. Normal range: <150 mg/dL Borderline High: 150-199 mg/dL High: 200-499 mg/dL Very High: >500 mg/dL Performed By: #### L 100.0500, L501.9985, L500.4050, L500.4100, L506.1001 #### [facility] [address] [place], [address] Vitamin D,25 Hydroxyon 09-18 Vitamin D 25-OH 52.7 ng/mL Normal 30-100 [facility] Comment on above: Order Comment: 546 Result Comment: Alicia min D Status Deficiency: <20 ng/mL (50nmol/L) Insufficiency: 20-30 ng/mL (50-75 nmol/L) Sufficiency: 30-100 ng/mL (75-250 nmol/L) Toxicity: >100 ng/mL (>250 nmol/L) Performed By: #### L 100.0500, L501.9985, L500.4050, L500.4100, L506.1001 #### [facility] [address] [place], [address] US DOPPLER CAROTIDon 020 US DOPPLER CAROTID Patient Info Name: NA GOOD Age: 84 years : 1935 Gender: Female Exam Date: 02/03/2020 2:02 PM Site Location: [facility] Patient Status: Outpatient Public Information Specialist: Tatyana Olmos, VILMA, RDMS (AB), RVT Referring Physician: RUBIN CHIRINOS ; Indications R09.89 - Other specified symptoms and signs involving the circulatory and respiratory systems Procedure Description 06405 Duplex examination using B-mode, color and spectral [...] Morris DO on 02/03/2020 03:27 PM Normal [facility] US DOPPLER CAROTID Patient Info Name: NA GOOD Age: 84 years : 1935 Gender: Female Exam Date: 02/03/2020 2:02 PM Site Location: [facility] Patient Status: Outpatient Public Information Specialist: Tatyana Olmos, VILMA, RDMS (AB), RVT Referring Physician: RUBIN CHIRINOS ; Indications R09.89 - Other specified symptoms and signs involving the circulatory and respiratory systems Procedure Description 40681 Duplex examination using B-mode, color and spectral [...] on SunFeb 03, 2020 3:27:40 PM EDT [facility] Patient Info Name: NA GOOD Age: 84 years : 1935 Gender: Female Exam Date: 02/03/2020 2:02 PM Site Location: [facility] Patient Status: Outpatient Public Information Specialist: Tatyana Olmos BS, RDMS (AB), RVT Referring Physician: RUBIN CHIRINOS ; Indications R09.89 - Other specified symptoms and signs involving the circulatory and respiratory systems Procedure Description 73089 Duplex examination using B-mode, color and spectral [...] HAM Morris DO on 02/03/2020 03:[address] [facility] Interface, Rad In Heart[facility] Xper Echopacs - 02/03/2020 3:27 PM EDT Patient Info Name: NA GOOD Age: 84 years : 1935 Gender: Female Exam Date: 02/03/2020 2:02 PM Site Location: [facility] Patient Status: Outpatient Public Information Specialist: Tatyana Olmos, BS, RDMS (AB), RVT Referring Physician: RUBIN CHIRINOS ; Indications R09.89 - Other specified symptoms and signs involving the circulatory and respiratory systems Procedure Description 54877 Duplex examination using B-mode, color and spectral [...] HAM Morris DO on 02/03/2020 03:[address] [facility] ECG 12-LEADon 01-13-2019 Atrial Rate [facility] P Strunk [facility] P-R Interval [facility] Q-T Interval [facility] Q-T Interval (corrected) [facility] QRS Duration [facility] QTC Calculation (Bezet) [facility] R Strunk [facility] T Strunk [facility] Ventricular Rate [facility] ECG 12 Leadon 01-15-2018 Atrial Rate Invalid Interpretation Code [facility] P Strunk Invalid Interpretation Code [facility] P-R Interval Invalid Interpretation Code [facility] Q-T Interval Invalid Interpretation Code [facility] Q-T Interval (corrected) Invalid Interpretation Code [facility] QRS Duration Invalid Interpretation Code [facility] QTC Calculation (Bezet) Invalid Interpretation Code [facility] R Strunk Invalid Interpretation Code [facility] T Strunk Invalid Interpretation Code [facility] Ventricular Rate Invalid Interpretation Code [facility] CBC w/o Diffon 12-19-2017 Erythrocyte distribution width Auto Ratio (RBC) 14.2 % Normal 10.0-14.4 [facility] Comment on above: Performed By: #### L IPID, CMET, TSH, CBCWOD ####Unless otherwise noted, all testing performed by [address] [id number]: [id number] Director: Alverto Fitzgerald M.D. Hematocrit Auto Volume Fraction (Bld) 44.2 % Normal 34.4-44.8 [facility] Comment on above: Performed By: #### L IPID, CMET, TSH, CBCWOD ####Unless otherwise noted, all testing performed by [address] [id number]: [id number] Director: Alverto Fitzgerald M.D. Hemoglobin mass conc (Bld) 14.6 g/dL Normal 11.6-15.4 [facility] Comment on above: Performed By: #### L IPID, CMET, TSH, CBCWOD ####Unless otherwise noted, all testing performed by [address] [id number]: [id number] Director: Alverto Fitzgerald M.D. MCH Auto Entitic mass (RBC) 29.4 pg Normal 27.9-33.9 [facility] Comment on above: Performed By: #### L IPID, CMET, TSH, CBCWOD ####Unless otherwise noted, all testing performed by [address] [id number]: [id number] Director: Alverto Fitzgerald M.D. MCHC Auto mass conc (RBC) 33.0 g/dL Low 33.1-35.1 [facility] Comment on above: Performed By: #### L IPID, CMET, TSH, CBCWOD ####Unless otherwise noted, all testing performed by [address] [id number]: [id number] Director: Alverto Fitzgerald M.D. MCV Auto Entitic volume (RBC) 89.1 fL Normal 82.6-98.9 [facility] Comment on above: Performed By: #### L IPID, CMET, TSH, CBCWOD ####Unless otherwise noted, all testing performed by [address] [id number]: [id number] Director: Alverto Fitzgerald M.D. Platelet mean volume Auto Entitic volume (Bld) 8.6 fL Normal 7.0-10.6 [facility] Comment on above: Performed By: #### L IPID, CMET, TSH, CBCWOD ####Unless otherwise noted, all testing performed by [address] [phone]: [id number] Director: Alverto Fitzgerald M.D. Platelets Auto #/vol (Bld) 349 K/mcL Normal 162-402 [facility] Comment on above: Performed By: #### L IPID, CMET, TSH, CBCWOD ####Unless otherwise noted, all testing performed by [address] [id number]: [id number] Director: Alverto Fitzgerald M.D. RBC Auto #/vol (Bld) 4.96 M/mcL Normal 3.7-5.0 [facility] Comment on above: Performed By: #### L IPID, CMET, TSH, CBCWOD ####Unless otherwise noted, all testing performed by [address] [phone]: [id number] Director: Alverto Fitzgerald M.D. WBC Auto #/vol (Bld) 9.0 K/mcL Normal 3.4-10.6 [facility] Comment on above: Performed By: #### L IPID, CMET, TSH, CBCWOD ####Unless otherwise noted, all testing performed by [address] [id number]: [id number] Director: Alverto Fitzgerald M.D. Comprehensive Metabolic Pane [facility] 12-19-2017 Albumin mass conc 3.7 g/dL Normal 3.2-5.2 [facility] Comment on above: Performed By: #### L IPID, CMET, TSH, CBCWOD ####Unless otherwise noted, all testing performed by [address] [phone]: [id number] Director: Alverto Fitzgerald M.D. ALP enzyme act/vol 54 U/L Normal 40-150 [facility] Comment on above: Performed By: #### L IPID, CMET, TSH, CBCWOD ####Unless otherwise noted, all testing performed by [address] [phone]: [id number] Director: Alverto Fitzgerald M.D. ALT enzyme act/vol 15 U/L Normal 14-65 [facility] Comment on above: Result Comment: This test result might be falsely depressed or falsely elevated onsamples drawn from patients taking Sulfasalazine and Sulfapyridine.Venipuncture should occur prior to taking either of these drugs. Performed By: #### L IPID, CMET, TSH, CBCWOD ####Unless otherwise noted, all testing performed by [address] [id number]: [id number] Director: Alverto Fitzgerald M.D. AST enzyme act/vol 15 U/L Normal 0-45 [facility] Comment on above: Result Comment: This test result might be falsely depressed or falsely elevated onsamples drawn from patients taking Sulfasalazine and Sulfapyridine.Venipuncture should occur prior to taking either of these drugs. Performed By: #### L IPID, CMET, TSH, CBCWOD ####Unless otherwise noted, all testing performed by [address] [id number]: [id number] Director: Alverto Fitzgerald M.D. Bilirubin mass conc 0.5 mg/dL Normal 0.3-1.2 [facility] Comment on above: Performed By: #### L IPID, CMET, TSH, CBCWOD ####Unless otherwise noted, all testing performed by [phone]: [id number] Director: Alverto Fitzgerald M.D. Calcium mass conc 8.9 mg/dL Normal 8.4-10.2 [facility] Comment on above: Performed By: #### L IPID, CMET, TSH, CBCWOD ####Unless otherwise noted, all testing performed by [address]8509CLIA: [id number] Director: Alverto Fitzgerald M.D. Chloride molar conc 106 mmol/L Normal 98-108 [facility] Comment on above: Performed By: #### L IPID, CMET, TSH, CBCWOD ####Unless otherwise noted, all testing performed by [phone]: [id number] Director: Alverto Fitzgerald M.D. CO2 molar conc 29 mmol/L Normal 21-32 [facility] Comment on above: Performed By: #### L IPID, CMET, TSH, CBCWOD ####Unless otherwise noted, all testing performed by [address] [id number]: [id number] Director: Alverto Fitzgerald M.D. Creatinine mass conc 0.76 mg/dL Normal 0.60-1.20 [facility] Comment on above: Performed By: #### L IPID, CMET, TSH, CBCWOD ####Unless otherwise noted, all testing performed by [address] [phone]: [id number] Director: Alverto Fitzgerald M.D. GFR/1.73 sq M predicted among blacks MDRD vol rate/area (S/P/Bld) mL/min/{1.73_m2} Normal [facility] Comment on above: Result Comment: Afri can Moldovan GFR Calc Performed By: #### L IPID, CMET, TSH, CBCWOD ####Unless otherwise noted, all testing performed by [place] [phone]: [id number] Director: Alverto Fitzgerald M.D. GFR/1.73 sq M predicted among non-blacks MDRD vol rate/area (S/P/Bld) mL/min/{1.73_m2} Normal [facility] Comment on above: Result Comment: Non- [...] ####Unless otherwise noted, all testing performed by [address] [phone]: [id number] Director: Alverto Fitzgerald M.D. Glucose mass conc 84 mg/dL Normal 70-99 [facility] Comment on above: Result Comment: This test result might be falsely depressed or falsely elevated onsamples drawn from patients taking Sulfasalazine and Sulfapyridine.Venipuncture should occur prior to taking either of these drugs. Performed By: #### L IPID, CMET, TSH, CBCWOD ####Unless otherwise noted, all testing performed by [place] [phone]: [id number] Director: Alverto Fitzgerald M.D. Potassium molar conc 4.1 mmol/L Normal 3.5-5.1 [facility] Comment on above: Performed By: #### L IPID, CMET, TSH, CBCWOD ####Unless otherwise noted, all testing performed by [address]8509CLIA: [id number] Director: Alverto Fitzgerald M.D. Protein mass conc 7.2 g/dL Normal 6.0-8.0 [facility] Comment on above: Performed By: #### L IPID, CMET, TSH, CBCWOD ####Unless otherwise noted, all testing performed by [place] [phone]: [id number] Director: Alverto Fitzgerald M.D. Sodium molar conc 142 mmol/L Normal 135-145 [facility] Comment on above: Performed By: #### L IPID, CMET, TSH, CBCWOD ####Unless otherwise noted, all testing performed by [place] [phone]: [id number] Director: Alverto Fitzgerald M.D. Urea nitrogen mass conc 19 mg/dL Normal 8-25 [facility] Comment on above: Performed By: #### L IPID, CMET, TSH, CBCWOD ####Unless otherwise noted, all testing performed by [address] [phone]: [id number] Director: Alverto Fitzgerald M.D. Lipid Panelon 12-19-2017 Cholesterol in HDL mass conc 68 mg/dL High 40-59 [facility] Comment on above: Performed By: #### L IPID, CMET, TSH, CBCWOD ####Unless otherwise noted, all testing performed by [address] [phone]: [id number] Director: Alverto Fitzgerald M.D. Cholesterol in LDL mass conc 150 mg/dL Normal 10-150 [facility] Comment on above: Performed By: #### L IPID, CMET, TSH, CBCWOD ####Unless otherwise noted, all testing performed by [address] [phone]: [id number] Director: Alverto Fitzgerald M.D. Cholesterol in VLDL mass conc 24 mg/dL Normal 5-40 [facility] Comment on above: Performed By: #### L IPID, CMET, TSH, CBCWOD ####Unless otherwise noted, all testing performed by [address] [phone]: [id number] Director: Alverto Fitzgerald M.D. Cholesterol mass conc 243 mg/dL High 100-199 [facility] Comment on above: Performed By: #### L IPID, CMET, TSH, CBCWOD ####Unless otherwise noted, all testing performed by [address] [phone]: [id number] Director: Alverto Fitzgerald M.D. Cholesterol.total/Cho lesterol in HDL mass ratio 3.6 {ratio} Normal 3.2-5.0 [facility] Comment on above: Result Comment: Robert le Coronary Heart Disease Risk Factor (CHDRF):Average risk= 4.41/2 Average risk= 3.32 times Average risk= 7.1 Performed By: #### L IPID, CMET, TSH, CBCWOD ####Unless otherwise noted, all testing performed by [address] [phone]: [id number] Director: Alverto Fitzgerald M.D. Triglyceride mass conc 121 mg/dL High 25-120 [facility] Comment on above: Performed By: #### L IPID, CMET, TSH, CBCWOD ####Unless otherwise noted, all testing performed by [address] [phone]: [id number] Director: Alverto Fitzgerald M.D. Microalbumin, Ur Random Pane epifanio 12-19-2017 Creatinine, Urine Random 124.00 mg/dL Normal [facility] Comment on above: Result Comment: No e stablished reference range. Performed By: #### M IALBURR ####Unless otherwise noted, all testing performed by [address] [phone]: [id number] Director: Alverto Fitzgerald M.D. MIALB/Creatinine Ratio 9 Normal 0.0-25.0 [facility] Comment on above: Performed By: #### M IALBURR ####Unless otherwise noted, all testing performed by [address] [phone]: [id number] Director: Alverto Fitzgerald M.D. Microalbumin, Urine Random 1.1 mg/dL Normal 0.0-1.8 [facility] Comment on above: Performed By: #### M IALBURR ####Unless otherwise noted, all testing performed by [address] [phone]: [id number] Director: Alverto Fitzgerald M.D. TSHon 12-19-2017 T4 free mass conc 1.1 ng/dL Normal 0.7-1.7 [facility] Comment on above: Result Comment: Samp les from patients routinely receiving high dose biotin therapy(100-300 mg/day) may show falsely increased results. Please correlateclinically. Performed By: #### L IPID, CMET, TSH, CBCWOD ####Unless otherwise noted, all testing performed by [address] [phone]: [id number] Director: Alverto Fitzgerald M.D. Thyrotropin Qn 0.22 uIU/mL Low 0.320-5.000 [facility] Comment on above: Result Comment: Samp les from patients routinely receiving high dose biotin therapy(100-300 mg/day) may show falsely decreased results. Please correlateclinically. Performed By: #### L IPID, CMET, TSH, CBCWOD ####Unless otherwise noted, all testing performed by [address] [phone]: [id number] Director: Alverto Fitzgerald M.D. CBC and Differentialon 12-19 Basophils 1.1 % Invalid Interpretation Code [facility] Basophils 0.1 K/mcL Invalid Interpretation Code 0 - 0.2 [facility] Eosinophils 0.3 K/mcL Invalid Interpretation Code 0 - 0.5 [facility] Erythrocytes (RBC) 4.79 M/mcL Invalid Interpretation Code 3.7 - 5.0 [facility] Hematocrit (HCT) 42.7 % Invalid Interpretation Code 34.4 - 44.8 % [facility] Hemoglobin (HGB) 14.1 g/dL Invalid Interpretation Code 11.6 - 15.4 g/dL [facility] Lymphocytes 2.4 K/mcL Invalid Interpretation Code 1.0 - 3.7 [facility] MCH 29.5 pg Invalid Interpretation Code 27.9 - 33.9 pg [facility] MCHC 33.1 g/dL Invalid Interpretation Code 33.1 - 35.1 g/dL [facility] MCV 89.2 fL Invalid Interpretation Code 82.6 - 98.9 [facility] Monocytes 0.6 K/mcL Invalid Interpretation Code 0.1 - 0.6 [facility] Neutrophils 4.4 K/mcL Invalid Interpretation Code 1.2 - 6.9 [facility] Platelet mean volume (PMV) 8.7 fL Invalid Interpretation Code 7.0 - 10.6 [facility] Platelets 278 K/mcL Invalid Interpretation Code 162 - 402 [facility] RDW-CA 14.3 % Invalid Interpretation Code 10 - 14.4 % [facility] Segmented Neut 56.5 % Invalid Interpretation Code [facility] T8 suppressor/100 cells 4.2 10*3/uL Invalid Interpretation Code [facility] T8 suppressor/100 cells 30.3 10*3/uL Invalid Interpretation Code [facility] T8 suppressor/100 cells 7.9 10*3/uL Invalid Interpretation Code [facility] WBC (Leukocytes) 7.8 K/mcL Invalid Interpretation Code 3.4 - 10.6 [facility] Comprehensive Metabolic Pane epifanio 12-19-2016 Alanine aminotransferase (ALT) 20 U/L Invalid Interpretation Code 14 - 65 U/L [facility] Albumin 3.6 g/dL Invalid Interpretation Code 3.2 - 5.2 g/dL [facility] Alkaline phosphatase (ALP) 39 U/L Low 40 - 150 U/L [facility] Aspartate aminotransferase (AST) 14 U/L Invalid Interpretation Code 0 - 45 U/L [facility] Calcium 9.4 mg/dL Invalid Interpretation Code 8.4 - 10.2 mg/dL [facility] Chloride 107 mmol/L Invalid Interpretation Code 98 - 108 mmol/L [facility] CO2 30 mmol/L Invalid Interpretation Code 21 - 32 mmol/L [facility] Creatinine 0.72 mg/dL Invalid Interpretation Code 0.6 - 1.2 mg/dL [facility] eGFR (black) mL/min/{1.73_m2} Invalid Interpretation Code ml/min/1.73s q.m [facility] eGFR (non-black) mL/min/{1.73_m2} Invalid Interpretation Code ml/min/1.73s q.m [facility] Glucose 86 mg/dL Invalid Interpretation Code 70 - 99 mg/dL [facility] Potassium 4.3 mmol/L Invalid Interpretation Code 3.5 - 5.1 mmol/L [facility] Protein 6.8 g/dL Invalid Interpretation Code 6 - 8 g/dL [facility] Sodium 145 mmol/L Invalid Interpretation Code 135 - 145 mmol/L [facility] Urea nitrogen 17 mg/dL Invalid Interpretation Code 8 - 25 mg/dL [facility] Urine, bilirubin presence 0.6 mg/dL Invalid Interpretation Code 0.3 - 1.2 mg/dL [facility] Lipid Panelon 12-19-2016 Cholesterol 242 mg/dL High 100 - 199 mg/dL [facility] Cholesterol to HDL Ratio 3.2 {ratio} Invalid Interpretation Code 3.2 - 5.0 [facility] HDL Cholesterol 76 mg/dL High 40 - 59 mg/dL [facility] Interpretation and review of laboratory results Abnormal Invalid Interpretation Code [facility] LDL Cholesterol 150 mg/dL Invalid Interpretation Code 10 - 150 mg/dL [facility] Triglyceride 85 mg/dL Invalid Interpretation Code 25 - 120 mg/dL [facility] VLDL 17 mg/dL Invalid Interpretation Code 5 - 40 mg/dL [facility] Vital Signs Date Time Vital Sign Value Performing Clinician Facility 07-28-2020 13:54-0400 BMI (Body Mass Index) 22.43 kg/m2 David Ludwig [facility] 07-28-2020 13:54-0400 Body Temperature 98.71 [degF] David Ludwig [facility] 07-28-2020 13:54-0400 Body weight 57.42 kg David Ludwig [facility] 07-28-2020 13:54-0400 BP Diastolic 82 mm[Hg] David Ludwig [facility] 07-28-2020 13:54-0400 BP Systolic 139 mm[Hg] David Ludwig [facility] 07-28-2020 13:54-0400 Height 160 cm David Ludwig [facility] 07-28-2020 13:54-0400 Pulse (Heart Rate) 84 /min David Ludwig [facility] 07-28-2020 13:54-0400 Pulse Oximetry 97 % David Ludwig [facility] 01-15-2020 14:24-0400 BMI (Body Mass Index) 22.5 kg/m2 Rubinyara Chirinos [facility] 01-15-2020 14:24-0400 Body weight 57.61 kg Rubinyara Chirinos [facility] 01-15-2020 14:24-0400 BP Diastolic 78 mm[Hg] Rubin Mandeep [facility] 01-15-2020 14:24-0400 BP Systolic 136 mm[Hg] Rubinyara Chirinos [facility] 01-15-2020 14:24-0400 Height 160 cm Rubinyara Chirinos [facility] 01-15-2020 14:24-0400 Pulse (Heart Rate) 64 /min Rubinyara Chirinos [facility] 01-15-2020 14:24-0400 Pulse Oximetry 97 % Rubin Chirinos [facility] 12-08-2019 11:20-0400 BMI (Body Mass Index) 22.5 kg/m2 David Ludwig [facility] 12-08-2019 11:20-0400 Body Temperature 97.81 [degF] David Ludwig [facility] 12-08-2019 11:20-0400 Body weight 57.61 kg David Ludwig [facility] 12-08-2019 11:20-0400 BP Diastolic 70 mm[Hg] David Ludwig [facility] 12-08-2019 11:20-0400 BP Systolic 133 mm[Hg] David Ludwig [facility] 12-08-2019 11:20-0400 Height 160 cm Daivd Ludwig [facility] 12-08-2019 11:20-0400 Pulse (Heart Rate) 98 /min Davidvinicio Ludwig [facility] 06-16-2019 09:58-0500 BP Diastolic 74 mm[Hg] Davidvinicio Ludwig [facility] 06-16-2019 09:58-0500 BP Systolic 130 mm[Hg] Davidvinicio Ludwig [facility] 06-16-2019 09:58-0500 Pulse (Heart Rate) 82 /min Davidvinicio Ludwig [facility] 06-16-2019 09:58-0500 Pulse Oximetry 97 % Davidvinicio Ludwig [facility] 06-16-2019 09:58-0500 Respiratory Rate 18 /min Davidvinicio Ludwig [facility] 06-16-2019 09:54-0500 BMI (Body Mass Index) 23.13 kg/m2 Davidvinicio Ludwig [facility] 06-16-2019 09:54-0500 Body Temperature 97.9 [degF] Davidvinicio Ludwig [facility] 06-16-2019 09:54-0500 Body weight 59.24 kg Davidvinicio Ludwig [facility] 06-16-2019 09:54-0500 Height 160 cm David [facility] 01-13-2019 11:15-0400 BMI (Body Mass Index) 22.14 kg/m2 Rubinyara Chirinos [facility] 01-13-2019 11:15-0400 Body weight 56.7 kg [facility] 01-13-2019 11:15-0400 BP Diastolic 71 mm[Hg] [facility] 01-13-2019 11:15-0400 BP Systolic 140 mm[Hg] [facility] 01-13-2019 11:15-0400 Height 160 cm Rubin [facility] 01-13-2019 11:15-0400 Pulse (Heart Rate) 80 /min [facility] 01-13-2019 11:15-0400 Pulse Oximetry 99 % [facility] 12-04-2018 09:08-0400 BMI (Body Mass Index) 22.43 kg/m[facility] 09:08-0400 Body [facility] 57.42 [facility] 12-04-2018 09:08-0400 BP Diastolic 80 mm[Hg] [facility] 12-[facility] 09:08-0400 BP Systolic 167 mm[Hg] Ceasar Arce [facility] 12-04-2018 09:08-0400 Height 160 cm Ceasar Arce [facility] 12-04-2018 09:08-0400 Pulse (Heart Rate) 74 /min Ceasar Arce [facility] 12-04-2018 09:08-0400 Pulse Oximetry 98 % Ceasar Arce [facility] 06-26-2018 11:00-0500 BP Diastolic 77 mm[Hg] David Ludwig [facility] 06-26-2018 11:00-0500 BP Systolic 129 mm[Hg] David Ludwig [facility] 06-26-2018 11:00-0500 Pulse (Heart Rate) 66 /min David Ludwig [facility] 06-26-2018 11:00-0500 Pulse Oximetry 96 % David Ludwig [facility] 06-26-2018 10:56-0500 BMI (Body Mass Index) 22.18 kg/m2 Davidvinicio Ludwig [facility] 06-26-2018 10:56-0500 Body Temperature 98.2 [degF] David Ludwig [facility] 06-26-2018 10:56-0500 Height 160 cm David Ludwig [facility] 06-26-2018 10:56-0500 Weight 56.79 kg Davidvinicio Ludwig [facility] 01-15-2018 10:01-0400 BMI (Body Mass Index) 22.32 kg/m2 [facility] 01-15-2018 10:01-0400 BP Diastolic 80 mm[Hg] [facility] 01-15-2018 10:01-0400 BP Systolic 152 mm[Hg] [facility] 01-15-2018 10:01-0400 Height 160 cm [facility] 01-15-2018 10:01-0400 Pulse (Heart Rate) 81 /min [facility] 01-15-2018 10:01-0400 Pulse Oximetry 98 % [facility] 01-15-2018 10:01-0400 Weight 57.15 kg [facility] 12-27-2017 10:27-0400 BMI (Body Mass Index) 22.27 kg/m2 David Ludwig [facility] 12-27-2017 10:27-0400 Body Temperature 97.59 [degF] David Ludwig [facility] 12-27-2017 10:27-0400 BP Diastolic 75 mm[Hg] David Ludwig [facility] 12-27-2017 10:27-0400 BP Systolic 159 mm[Hg] David Ludwig [facility] 12-27-2017 10:27-0400 Height 160 cm David Ludwig [facility] 12-27-2017 10:27-0400 Pulse (Heart Rate) 82 /min David Ludwig [facility] 12-27-2017 10:27-0400 Pulse Oximetry 97 % David Ludwig [facility] 12-27-2017 10:27-0400 Respiratory Rate 12 /min David Ludwig [facility] 12-27-2017 10:27-0400 Weight 57.02 kg David Ludwig [facility] 06-26-2017 09:46-0500 BMI (Body Mass Index) 23.06 kg/m2 Alfredo [facility] 06-26-2017 09:46-0500 Body Temperature 98.29 [degF] [facility] 06-26-2017 09:46-0500 BP Diastolic 80 mm[Hg] [facility] 06-26-2017 09:46-0500 BP Systolic 140 mm[Hg] [facility] 06-26-2017 09:46-0500 Height 160 cm [facility] 06-26-2017 09:46-0500 Pulse (Heart Rate) 68 /min [facility] 06-26-2017 09:46-0500 Weight 59.06 kg [facility] 06-20-2017 14:38-0500 BMI (Body Mass Index) 23.03 kg/m2 Ceasar Prykhodko [facility] 06-20-2017 14:38-0500 BP Diastolic 79 mm[Hg] Ceasar Prykhodko [facility] 06-20-2017 14:38-0500 BP Systolic 160 mm[Hg] Ceasar Prykhodko [facility] 06-20-2017 14:38-0500 Height 160 cm Ceasar Prykhodko [facility] 06-20-2017 14:38-0500 Pulse (Heart Rate) 67 /min Ceasar Prykhoo [facility] 06-20-2017 14:38-0500 Pulse Oximetry 99 % Ceasar Arce [facility] 06-20-2017 14:38-0500 Weight 58.97 kg Ceasar Arce [facility] 01-08-2017 10:21-0400 BMI (Body Mass Index) 22.32 kg/m2 Rubin Chirinos [facility] Work Phone: 01-08-2017 10:21-0400 BP Diastolic 85 mm[Hg] Rubin Chirinos [facility] Work Phone: 01-08-2017 10:21-0400 BP Systolic 165 mm[Hg] Rubin Chirinos [facility] Work Phone: 01-08-2017 10:21-0400 Height 160 cm Rubin Chirinos [facility] Work Phone: 01-08-2017 10:21-0400 Pulse (Heart Rate) 64 /min Rubin Chirinos [facility] Work Phone: 01-08-2017 10:-0400 Pulse Oximetry 97 % Rubin Chirinos [facility] Work Phone: 01-08-2017 10:-040 Weight 57.15 kg Rubin Chirinos [facility] Work Phone: 12-13-2016 14:18-0400 BMI (Body Mass Index) 22.44 kg/m2 Ceasar Arce [facility] Work Phone: 12-13-2016 14:18-0400 BP Diastolic 81 mm[Hg] Ceasar Arce [facility] Work Phone: 12-13-2016 14:18-0400 BP Systolic 167 mm[Hg] Ceasar Oviedoo [facility] Work Phone: 12-13-2016 14:18-0400 Height 160 cm Ceasar Arce [facility] Work Phone: 12-13-2016 14:18-0400 Pulse (Heart Rate) 69 /min Ceasar Arce [facility] Work Phone: 12-13-2016 14:18-0400 Pulse Oximetry 99 % Ceasar Arce [facility] Work Phone: 12-13-2016 14:18-0400 Weight 57.47 kg Ceasar Arce [facility] Work Phone: Encounters Encounter Date Encounter Type Care Provider Facility Start: 02-04-2025 End: 02-04-2025 ambulatory JOVANI COCHRAN Facility:[facility] Start: 01-27-2025 End: 01-29-2025 Evaluation and management of inpatient UNKNOWN PROVIDER Facility:[facility] Start: 01-05-2025 ambulatory Alexey Manningerro [facility] Facili ty:[facility] Start: 12-29-2024 ambulatory Alexey Nigelerro [facility] ty:[facility] Start: 12-24-2024 End: 12-27-2024 Evaluation and management of inpatient LIAM MAGALLONPAOLA Facility:[facility] Start: 12-09-2024 ambulatory Alexey Deperro OLS Facili ty:[facility] Start: 09-18-2024 ambulatory Alexey Deperro OLS Facili ty:[facility] Start: 01-14-2021 [facility] Start: 12-07-2020 ambulatory [facility] Start: 09-21-2020 End: 09-21-2020 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 Comment on above: Benign essential hyp ertension; Chronic combined systolic and diastolic congestive heart failure (HCC); Insomnia, unspecified type Start: 07-28-2020 End: 07-28-2020 ambulatory DAVID [employer] [facility] Ambulatory Start: 07-28-2020 End: 07-28-2020 Office outpatient visit 25 minutes David Ludwig Work Phone: [facility] Comment on above: Benign essential hyp ertension (Primary Dx); Chronic combined systolic and diastolic congestive heart failure (HCC); Mixed hyperlipidemia Start: 05-07-2020 End: 05-07-2020 Orders Only Alley Kimball Work Phone: [facility] Start: 02-03-2020 End: 02-04-2020 Patient encounter procedure [facility] Start: 02-03-2020 End: 02-03-2020 Subsequent hospital visit by physician Rubin Chirinos Work Phone: [facility] Comment on above: Bruit of left caroti d artery Start: 01-15-2020 End: 01-15-2020 Office outpatient visit 25 minutes Rubin Mandeep Work Phone: [facility] Comment on above: Bruit of left caroti d artery (Primary Dx); Chronic combined systolic and diastolic congestive heart failure (HCC); Mixed hyperlipidemia; Nonrheumatic aortic valve insufficiency; Benign essential hypertension; Left carotid bruit Start: 12-08-2019 End: 12-08-2019 Patient encounter procedure David Ludwig Work Phone: [facility] Comment on above: General medical exam (Primary Dx); At low risk for fall; Need for vaccination Start: 12-01-2019 End: 12-05-2019 Patient encounter procedure [facility] Start: 06-16-2019 End: 06-16-2019 Office outpatient visit 25 minutes David Ludwig Work Phone: [facility] Comment on above: Benign essential hyp ertension (Primary Dx); Chronic combined systolic and diastolic congestive heart failure (HCC); Mixed hyperlipidemia; Subclinical hypothyroidism; Insomnia, unspecified type Start: 01-13-2019 End: 01-13-2019 Office outpatient visit 25 minutes Rubin Palenciay Work Phone: [facility] Comment on above: Cardiomyopathy, unsp ecified type (HCC) (Primary Dx); Chronic combined systolic and diastolic congestive heart failure (HCC); Mixed hyperlipidemia; Benign essential hypertension Start: 12-04-2018 End: 12-04-2018 Clinical Support Kriss Marcelo [facility] Audiology Comment on above: Sensorineural hearin g loss, bilateral (Primary Dx); Sudden hearing loss, unspecified laterality Start: 12-04-2018 End: 12-04-2018 Office outpatient visit 25 minutes Ceasar Maddoxykhodkcarito Work Phone: [facility] Comment on above: Hearing loss due to cerumen impaction, bilateral (Primary Dx); Sensorineural hearing loss, bilateral Start: 09-26-2018 End: 09-26-2018 Patient encounter procedure Eve Yap [facility] Comment on above: Medicare Wellness Vi sit (VM to schedule MWV) Start: 06-26-2018 End: 06-26-2018 Office outpatient visit 25 minutes David Ludwig Work Phone: [facility] Comment on above: Benign essential hyp ertension (Primary Dx); Mixed hyperlipidemia; Chronic combined systolic and diastolic congestive heart failure (HCC); Mood disorder (HCC) Start: 01-28-2018 Patient encounter procedure Alfreda Gallegos Facility:[facility] Start: 01-28-2018 End: 01-28-2018 Patient encounter Alfreda ReyesMacrina Gallegos Work Phone: [facility] Start: 01-15-2018 End: 01-15-2018 Office outpatient visit 25 minutes Alfreda ReyesMacrina Huaashokcapo Work Phone: [facility] Comment on above: Congestive heart elsy lure, unspecified HF chronicity, unspecified heart failure type (HCC) (Primary Dx); Dyspnea on exertion; Nonrheumatic aortic valve insufficiency; Benign essential hypertension Start: 12-27-2017 End: 12-27-2017 Office outpatient visit 25 minutes David Ludwig Work Phone: [facility] Comment on above: Benign essential hyp ertension (Primary Dx); Mixed hyperlipidemia; Subclinical hypothyroidism; Chronic combined systolic and diastolic congestive heart failure (HCC); Need for influenza vaccination Start: 12-19-2017 Patient encounter procedure Alfredo Barreto Facility:[facility] Start: 12-19-2017 End: 12-19-2017 Patient encounter Devonte Hassan [facility] Start: 11-07-2017 Refill Rubin Schafer Work Phone: [facility] Comment on above: Medication Refill Start: 06-26-2017 Patient encounter procedure Alfredo Barreto Facility:[facility] Start: 06-26-2017 Office/outpatient vi sit, est, level 3 Alfredo Barreto Work Phone: [facility] Start: 06-25-2017 Patient encounter procedure Oscar Mendes Facility:[facility] Start: 06-20-2017 Patient encounter Ceasar guillen [place] Work Phone: [facility] Start: 06-18-2017 Patient encounter procedure Oscar Mendes Facility:[facility] Start: 01-12-2017 End: 01-12-2017 Ambulatory Rubin Chirinos Work Phone: [facility] Start: 01-08-2017 Office/outpatient vi sit, est, level 5 Rubin Chirinos Work Phone: [facility] Start: 12-19-2016 End: 12-19-2016 Ambulatory Oscar Horace Mendes Work Phone: [facility] Start: 12-15-2016 End: 12-15-2016 [facility]ulatory [place] [facility] Start: 12-13-2016 End: 12-13-2016 Office outpatient new 30 minutes Ceasar Segura [place] Work Phone: [facility] Comment on above: Hearing loss due to cerumen impaction, bilateral (Primary Dx);Presbycusis, unspecified laterality Start: 11-24-2016 End: 11-24-2016 Ambulatory Oscar Mendes Work Phone: [facility] Procedures Date Procedure Procedure Detail Performing [...] Start: 12-07-2029 Tetanus vaccination Tetanus: Every 10[address] [facility] Start: 12-27-2022 History and physical examination, annual for health maintenance Wellness Visit [facility] Start: 12-22-2021 Influenza vaccination Sequential Influenza Vaccine (#1) [facility] Start: 01-31-2021 End: 01-31-2021 Office Visit 01/31/2021 Office Visit Primary Care David Ludwig MD [address] [place] [address] [phone] [facility] Start: 12-07-2020 Administration of herpes zoster vaccine Zoster Vaccines (1 of 2) [facility] Comment on above: Postponed from 10/21/1985 (Treatment Not Available) Start: 12-07-2020 Adolescent depression screening assessment Depression Screening (PHQ9) [facility] Start: 12-07-2020 Depression screening using PHQ-9 (Patient Health Questionnaire 9) score [facility] Start: 12-07-2020 Fall risk assessment Falls Risk Assessment [facility] Start: 12-07-2020 History and physical examination, annual for health maintenance Wellness Visit [facility] Start: 08-09-2020 COVID-19 Vaccine (3 - Booster for Moderna series) COVID-19 Vaccine (3 - Booster for Moderna series) [facility] Start: 07-28-2020 End: 07-28-2020 Office Visit 07/28/2020 Office Visit Primary Care David Ludwig MD [address] [place] [address] [phone] [facility] Start: 07-28-2020 End: 07-28-2021 Microalbumin measurement, urine, quantitative Microalbumin/Creatinine Ratio, UR Random Lab Routine Benign essential hypertension Expected: 07/28/2020, Expires: 07/28/[address] [facility] Comment on above: Expected: 07/28/2020, Expires: Start: 06-10-2020 End: 06-10-2020 Office Visit 06/10/2020 Office Visit Primary Care David Ludwig MD [address] [place] [address] [phone] [facility] Start: 02-03-2020 End: 02-03-2020 Appointment 02/03/2020 Appointment Cardiology Rubin Chirinos MD [address] [place] [address] [phone] [facility] Start: 12-23-2019 Influenza vaccination given Sequential Influenza Vaccine (#1) [facility] Start: 12-19-2019 Depression screening using PHQ-9 (Patient Health Questionnaire 9) score DEPRESSION SCREENING (PHQ9) [facility] Start: 12-19-2019 Fall risk assessment Falls Risk Assessment [facility] Start: 12-08-2019 End: 12-08-2019 Office Visit 12/08/2019 Office Visit Primary Care David Ludwig MD [address] [place] [address] [phone] [facility] Start: 06-16-2019 End: 06-16-2020 Microalbumin measurement, urine, quantitative Microalbumin/Creatinine Ratio, UR Random Lab Routine Benign essential hypertension Expected: 06/16/2019, Expires: 06/16/[address] [facility] Comment on above: Expected: 06/16/2019, Expires: Start: 06-16-2019 End: 06-16-2019 Office Visit 06/16/2019 Office Visit Primary Care David Ludwig MD [address] [place] [address] [phone] [facility] Start: 01-13-2019 End: 01-13-2019 Office Visit 01/13/2019 Office Visit Cardiology Rubin Chirinos MD [address] [place] [address] [phone] [facility] Start: 12-22-2018 Influenza vaccination given SEQUENTIAL INFLUENZA VACCINE (#1) [facility] Start: 12-20-2018 End: 12-20-2018 Office Visit 12/20/2018 Office Visit Primary Care David Ludwig MD [address] [place] [address] [phone] [facility] Start: 12-18-2018 End: 12-18-2018 Office Visit 12/18/2018 Office Visit Primary Care David Ludwig MD [address] [place] [address] [phone] [facility] Start: 06-26-2018 End: 06-27-2019 Microalbumin measurement, urine, quantitative Microalbumin, Urine, Random Routine Benign essential hypertension Expected: 06/26/2018, Expires: 06/27/[address] [facility] Comment on above: Expected: 06/26/2018, Expires: 0 Start: 06-26-2018 End: 06-26-2018 Ambulatory 06/26/2018 Office Visit Primary Care David Lduwig MD [address] [place] [address] [phone] [facility] Start: 06-19-2018 End: 06-19-2018 Ambulatory 06/19/2018 Clinical Support Primary Care [facility] Start: 01-28-2018 End: 01-28-2018 Ambulatory 01/28/2018 Appointment Cardiology Alfreda Gallegos, [employer] [address] [place] [address] [phone] [facility] Start: 01-10-2018 End: 01-10-2018 Ambulatory 01/10/2018 Office Visit Cardiology Rubin Chirinos MD [address] [place] [address] [phone] [facility] Start: 12-27-2017 End: 12-27-[address] [facility] Start: 12-22-2017 Influenza vaccination SEQUENTIAL INFLUENZA VACCINE (#1) [facility] Start: 12-18-2017 Ambulatory 12/18/2017 Clinical Support Primary Care [facility] Start: 06-26-2017 Ambulatory [facility] Start: 06-25-2017 Ambulatory 06/25/2017 Hospital Encounter Oscar Mendes MD [address] [place] [address] [phone] [facility] Start: 06-20-2017 Ambulatory 06/20/2017 Office Visit Otolaryngology Ceasar Arce MD [address] [place] [address] [phone] [facility] Start: 06-18-2017 Ambulatory 06/18/2017 Hospital Encounter Oscar Mendes MD [address] [place] [address] [phone] [facility] Start: 01-12-2017 Ambulatory 01/12/2017 Hospital Encounter Cardiology Rubin Chirinos MD [address] [place] [address] [phone] [facility] Start: 01-08-2017 Ambulatory 01/08/2017 Office Visit Cardiology Rubin Chirinos MD [address] [place] [address] [phone] [facility] Start: 12-22-2016 Influenza vaccination SEQUENTIAL INFLUENZA VACCINE (#1) [facility] Work Phone: Start: 12-22-2016 SEQUENTIAL INFLUENZA VACCINE (#1) SEQUENTIAL INFLUENZA VACCINE (#1) [facility] Work Phone: Start: 12-13-2016 Ambulatory 12/13/2016 Office Visit Otolaryngology Ceasar Arce MD [address] [facility] [address] [place] [address] [phone] [facility] Start: 03-02-2016 Pneumococcal vaccination PNEUMOCOCCAL VACCINE AGE 65+ (2 of 2 - PCV13) [facility] Start: 10-21-2000 Fall risk assessment Steadi Fall Risk Assessment [facility] Start: 10-21-2000 Pneumococcal vaccination PNEUMOCOCCAL VACCINE AGE 65+ (1 of 2 - PCV13) [facility] Work Phone: Start: 10-21-2000 PNEUMOCOCCAL VACCINE AGE 65+ (1 of 2 - PCV13) PNEUMOCOCCAL VACCINE AGE 65+ (1 of 2 - PCV13) [facility] Work Phone: Start: 1995 Zoster vacc, sc ZOSTER VACCINE [facility] Work Phone: Start: 10-21-1985 Administration of herpes zoster vaccine ZOSTER VACCINES (1 of 2) [facility] Start: 10-21-1985 ZOSTER VACCINES (1 of 2) ZOSTER VACCINES (1 of 2) [facility] Start: 10-21-1938 History and physical examination, annual for health maintenance Wellness Visit [facility] Start: 1935 Fall risk assessment Falls Risk Assessment [facility] Start: 1935 End: 1935 DEXA SCAN DEXA SCAN [facility] Work Phone: Start: 1935 End: 1935 Screening for osteoporosis DEXA SCAN [facility] Start: 1935 End: 1935 TETANUS EVERY 10 YR TETANUS EVERY [address] [facility] Work Phone: Start: 1935 End: 1935 Tetanus vaccination [facility] Work Phone: End: 03-17-2021 Carotid artery doppler assessment Ultrasound doppler carotid Vascular Ultrasound Routine Bruit of left carotid artery 1 Occurrences starting 01/15/2020 until 03/17/[address] [facility] Comment on above: 1 Occurrences starting 01/15/2020 until 03/17/2021 End: 01-12-2017 Carotid Duplex Carotid Duplex Routine Bruit Once for 1 Occurrences starting 01/12/2017 until 01/12/[address] [facility] Work Phone: Carotid Duplex Carotid Duplex R outine Bruit 01/12/2017 4:01 PM EDT [facility] Work Phone: End: 03-10-2018 Carotid Duplex Carotid Duplex Routine Bruit 1 Occurrences starting 01/08/2017 until 03/10/[address] [facility] Work Phone: End: 06-26-2018 Cholesterol Lipid Panel Routine Pure hypercholesterolemia 1 Occurrences starting 06/26/2017 until 06/26/[address] [facility] End: 06-26-2018 Complete blood count (hemogram) panel - Blood by Automated count CBC Routine Essential hypertension 1 Occurrences starting 06/26/2017 until 06/26/[address] [facility] End: 06-27-2019 Complete blood count with white cell differential, manual CBC and Differential Routine Benign essential hypertension 1 Occurrences starting 11/26/2018 until 06/27/[address] [facility] Comment on above: 1 Occurrences starting 11/26/2018 until 06/27/2019 End: 06-16-2020 Complete blood count with white cell differential, manual CBC and Differential Lab Routine Benign essential hypertension 1 Occurrences starting 06/16/2019 until 06/16/[address] [facility] Comment on above: 1 Occurrences starting 06/16/2019 until 06/16/2020 End: 07-28-2021 Complete blood count with white cell differential, manual CBC and Differential Lab Routine Benign essential hypertension 1 Occurrences starting 07/28/2020 until 07/28/[address] [facility] Comment on above: 1 Occurrences starting 07/28/2020 until 07/28/2021 End: 06-27-2019 Comprehensive metabolic 2000 panel Comprehensive Metabolic Panel Routine Benign essential hypertension 1 Occurrences starting 11/26/2018 until 06/27/[address] [facility] Comment on above: 1 Occurrences starting 11/26/2018 until 06/27/2019 End: 06-16-2020 Comprehensive metabolic 2000 panel Comprehensive Metabolic Panel Lab Routine Benign essential hypertension 1 Occurrences starting 06/16/2019 until 06/16/[address] [facility] Comment on above: 1 Occurrences starting 06/16/2019 until 06/16/2020 End: 07-28-2021 Comprehensive metabolic 2000 panel Comprehensive Metabolic Panel Lab Routine Benign essential hypertension 1 Occurrences starting 07/28/2020 until 07/28/[address] [facility] Comment on above: 1 Occurrences starting 07/28/2020 until 07/28/2021 End: 06-26-2018 Comprehensive metabolic panel [AGGREGATE] Comprehensive Metabolic Panel Routine Essential hypertension 1 Occurrences starting 06/26/2017 until 06/26/[address] [facility] End: 01-16-2019 Echocardiogram complete Echocardiogram complete Routine Dyspnea on exertion 1 Occurrences starting 01/15/2018 until 01/16/[address] [facility] Comment on above: 1 Occurrences starting 01/15/2018 until 01/16/2019 End: 06-27-2019 Lipid 1996 panel Lipid Panel Routine Mixed hyperlipidemia 1 Occurrences starting 11/26/2018 until 06/27/[address] [facility] Comment on above: 1 Occurrences starting 11/26/2018 until 06/27/2019 End: 06-16-2020 Lipid 1996 panel Lipid Panel Lab Routine Mixed hyperlipidemia 1 Occurrences starting 06/16/2019 until 06/16/[address] [facility] Comment on above: 1 Occurrences starting 06/16/2019 until 06/16/2020 End: 07-28-2021 Lipid 1996 panel Lipid Panel Lab Routine Benign essential hypertension 1 Occurrences starting 07/28/2020 until 07/28/[address] [facility] Comment on above: 1 Occurrences starting 07/28/2020 until 07/28/2021 End: 06-26-2018 Microalbumin, Urine, Random Microalbumin, Urine, Random Routine Essential hypertension 1 Occurrences starting 06/26/2017 until 06/26/[address] [facility] End: 06-27-2019 Thyrotropin Qn TSH with Reflex Free T4 Routine Benign essential hypertension 1 Occurrences starting 11/26/2018 until 06/27/[address] [facility] Comment on above: 1 Occurrences starting 11/26/2018 until 06/27/2019 End: 06-26-2018 TSH TSH Routine Hypothyroidism (acquired) 1 Occurrences starting 06/26/2017 until 06/26/[address] [facility] End: 06-16-2020 TSH Qn TSH with Reflex Free T4 Lab Routine Subclinical hypothyroidism 1 Occurrences starting 06/16/2019 until 06/16/[address] [facility] Comment on above: 1 Occurrences starting 06/16/2019 until 06/16/2020 End: 07-28-2021 TSH Qn TSH with Reflex Free T4 Lab Routine Benign essential hypertension 1 Occurrences starting 07/28/2020 until 07/28/[address] [facility] Comment on above: 1 Occurrences starting 07/28/2020 until 07/28/2021 Immunizations Immunization Date Immunization Notes Care Provider Derrick gomez 06-14-2020 Moderna SARS-CoV-2 Vaccination Brand on [facility] 05-17-2020 Moderna SARS-CoV-2 Vaccination Brand on [facility] 01-28-2020 Seasonal, quadrivale nt, recombinant, injectable influenza vaccine, preservative free [facility] 12-08-2019 diphtheria, tetanus toxoids and acellular pertussis vaccine, unspecified formulation [facility] 12-08-2019 tetanus toxoid, redu cielo diphtheria toxoid, and acellular pertussis vaccine, adsorbed [facility] 12-27-2017 influenza, high dose seasonal, preservative-free; Translations: [INFLUENZA IIV3 HIGH DOSE 65 AND OLDER] David Ludwig [facility] 03-02-2015 influenza virus vacc ine, unspecified formulation Ceasar Arce [facility] 03-02-2015 influenza, injectabl e, quadrivalent, preservative free Davidvinicio Ludwig [facility] 03-02-2015 pneumococcal conjuga te vaccine, 13 valent David Ludwig [facility] 03-02-2015 pneumococcal polysac charide vaccine, 23 valent Ceasar Arce [facility] 03-17-2002 influenza virus vacc ine, unspecified formulation [facility] Payers Date Payer Category Payer Self-pay 2015 Unknown [id number] 2015 Unknown [facility] [id number] 2015-Present [id number] 2015 Unknown [facility] [id number] 2015-Present [phone] [address] [place] [address] [id number] 2000 Medicare [id number] 2000 Medicare MEDICARE MEDICAR E PART A & B [id number] 2000-Present [place] [id number] 2000 Medicare MEDICARE MEDICAR E PART A & B [id number] 2000-Present [phone] [employer] [id number] PART A CLAIMS [address] [address] [place] [address] [id number] 2000 Unknown [id number] 2000 Medicare [id number] 1935 Unknown [id number] 1935 Unknown [id number] 1935 Unknown [id number] 1935 Unknown [id number] 1935 Unknown [id number] Medicare xxxxxxxxxx [id number] Unknown [id number] Unknown [id number] Unknown [id number] Unknown [id number] Social History Date Type Detail Facility Start: 12-13-2016 End: 06-26-2017 Tobacco smoking status [facility] Never smoker [facility] Start: 1935 Sex Assigned At Not on file O [email or web address] Work Phone: Start: 01-06-2016 Alcohol Comment very seldom [facility] Start: 06-26-2017 End: 01-13-2019 Alcohol intake Current drinker of alcohol (finding) [facility] Start: 12-18-2018 End: 07-28-2020 History SDOH Social Connections Phone [address] [facility] Start: 12-18-2018 End: 12-08-2019 History SDOH Food Worry [address] [facility] Start: 12-13-2016 End: 01-15-2020 Tobacco use and exposure Never used [facility] Start: 01-15-2020 End: 07-28-2020 Alcohol intake Ex-drinker (finding) [facility] Start: 12-08-2019 History SDOH Physica l Activity DPW [address] [facility] Start: 12-08-2019 History SDOH Education [address] [facility] Start: 12-08-2019 History SDOH Financial [address] [facility] Start: 12-08-2019 End: 07-28-2020 History SDOH IPV Fear [address] [facility] Start: 06-28-2020 End: 07-28-2020 Exposure to SARS-CoV-2 (event) Not sure [facility] Start: 06-26-2017 End: 07-28-2020 Alcohol intake [facility] Clinical Notes 11-07-2017 to 02-04-2025 Telephone Encounter - Shante Hargrove LPN - 09/21/2020 4:05 PM EDTTelephone Encounter - Theresa Berg MA - 11/09/2017 9:59 AM EDT Note Date & Type Note Facility 02-04-2025 Note HNO ID: [id number] Author: JOVANI COCHRAN APRN.[employer] Service: ? Author Type: Nurse Practitioner Type: Progress Notes Filed: 02/04/2025 13:00 Note Text: [facility] [place] [facility] OUTPATIENT VISIT DATE February 04, 2025 OUTPATIENT VISIT TYPE NEW PRIMARY CARE PHYSICIAN: Alexey Vinson Sr, DO REFERRING PHYSICIAN: No referring provider defined for this encounter. 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 The patient was admitted to the ED on 01/27 with dyspnea, insomnia, and chest tightness. She had been previously hospitalized in December for a heart failure exacerbation. In the ED, she was found to have coarse breath sounds at the bilateral bases. An EKG showed normal sinus rhythm with a left bundle branch block and a rate of 92 bpm. NT-proBNP was significantly elevated at 30,208 pg/mL. A chest X-ray revealed central bilateral hazy interstitial infiltrates with bilateral opacification suggestive of venous congestion with associated pleural effusions. CBC and CMP were unremarkable. She was given IV Lasix and admitted for further management. During hospitalization, she was adequately diuresed. She also demonstrated fatigue and weakness, and a UA revealed a UTI, for which she was started on Keflex. She was discharged on 01/29 back to her assisted living facility with Keflex for 5 days and her home medications, including Aldactone, Lasix, Jardiance, Toprol, and enalapril. Patient is a poor historian and is accompanied by staff from facility. She reports improvement in her symptoms since discharge. She denies current dyspnea, chest pain, orthopnea, paroxysmal nocturnal dyspnea, leg swelling, dizziness, syncope, palpitations, or significant fatigue. She occasionally experiences a non-productive cough. She denies any recent falls. She sleeps in a bed using two pillows and does not wake up due to breathing difficulties. She eats three meals a day and denies using a salt shaker. She drinks coffee but limits her fluid intake to less than 64 ounces per day. The facility that she lives in is monitoring her weight daily, which has remained stable. Her weight was 125 lbs at discharge and is currently 118 lbs. PAST CARDIAC HISTORY: Heart failure: systolic Non-ischemic, subtype: Hypertensive. Her cardiac history is also significant for HTN, hyperlipidemia, LV thrombus, NICM. Device: NA. PAST MEDICAL HISTORY Diagnosis Date ASCVD (arteriosclerotic [...] FLP TUBE ABDL/VAG APPR UNI/BI Tubal ligation SOCIAL HISTORY[1] FAMILY HISTORY Problem Relation Age of Onset Hypertension Father ALLERGIES Allergen Reactions Cortisone facial swelling after IM injection CURRENT MEDICATIONS: Current Outpatient Medications Medication Sig Dispense Refill furosemide (LASIX) 20 mg tablet Take 1 tablet by mouth once daily. May take an additional 20 mg as needed for weight gain, increased Shortness of Breath, or increased edema. 90 tablet 0 enalapril (VASOTEC) 5 mg tablet Take 1 tablet by mouth two times a day. 60 tablet 0 apixaban (ELIQUIS) 2.5 mg tab(s) Take 2.5 mg by mouth two times a day. JARDIANCE 10 mg tablet Take 10 mg by mouth daily with breakfast. mirtazapine (REMERON) 30 mg tablet Take 30 mg by mouth daily at bedtime. rosuvastatin (CRESTOR) 5 mg tablet Take 5 mg by mouth once daily. ALDACTONE 25 mg tablet Take 12.5 mg by mouth once daily. melatonin 2.5 mg chew Take 2.5 mg by mouth daily at bedtime. senna-docusate (SENEXON-S) 8.6-50 mg per tablet Take 1 tablet by mouth once daily as needed for constipation. Cholecalciferol, Vitamin D3, 25 mcg (1,000 unit) cap Take 1,000 Units by mouth once daily. TOPROL XL 25 MG 24 HR TAB Take one(1) tablet daily. 125 0 MULTIVITAMIN TABLET Take one(1) tablet daily. 0 CALCIUM + D 600MG TABLET Take one(1) tablet two(2) times daily. 0 No current facility-administered medications for this visit. REVIEW OF SYSTEMS: GENERAL: Positive for:Weight loss Negative for:Weight gain, Fever or Chills, Weakness, and Sleep difficulties HEENT: Negative for: Headache, Impaired Vision, Glass (more content not included)... [facility] 01-29-2025 Note HNO ID: [id number] Author: NAHEED GREENBERG RN Service: Care Management Author Type: Registered Nurse Type: Care Mgt Progress Note Filed: 01/29/2025 14:44 Note Text: CARE MANAGEMENT DISCHARGE NOTE SERVICE DATE: January 29, 2025 SERVICE TIME: 2:41 PM Discharge order written for today. [facility]: [facility] - - [facility] and by Phone with Nurse Persaud on discharge planning. Nurse Persaud updated on discharge today and confirms the facility will set home PT services for patient. MMT transport scheduled for today at 3:30 PM - Trip Number [id number] Transport envelope on chart LAKESHIA GALLEGO discussed discharge with Nurse Yaritza Steven RN. Admission Date: 01/27/2025 LOS: 2 days Discharge Arrangement Discharge Arrangement: Assisted Living Facility [facility]: [facility] - Transportation Arrangements Transportation Arrangements: Ambulance Transportation Agency and Phone #:: [facility] [phone] Date of Trip: 01/29/25 (Trip Number [id number]) Time of Trip: 1530 Type of Service: BLS Non-emergency Is Patient Medicaid Pending?: No Was transportation financial coverage discussed with family?: Family (Son: Yandel Good - [phone]) Machine Compositor Location: [place] Destination: [facility]: [facility] - Financial Care Management Responsibility: None Handoff Communication: Handoff to: Primary Care Physician Primary Care Physician Name/Phone: PCP: Alexey Jaimes DePApruvecarito WiMi5 - Additional Information: Discharge Information Row Name ED to Hosp-Admission (Current) from 01/27/2025 in [facility] Follow-Up Appointment Provider Name PCP: Alexey Jaimes DePOffersBy.Me - Other Follow-Up Type [facility]: [facility] - SIGNATURE: aNheed Greenberg RN PATIENT NAME: Na Good DATE: January 29, 2025 TIME: 2:41 PM [facility] 01-29-2025 Note HNO ID: [id number] Author: ANHEED GREENBERG RN Service: Care Management Author Type: Registered Nurse Type: Care Mgt Progress Note Filed: 01/29/2025 14:36 Note Text: CARE MANAGEMENT PROGRESS NOTE SERVICE DATE: 01/29/2025 SERVICE TIME: 2:13 PM LOS: 2 days LAKESHIA GALLEGO spoke with son: Yandel Good [phone] to discuss discharge planning. Anticipate discharge today. Yandel confirms plan if for return to [facility]. LAKESHIA GALLEGO informed Yandel of therapy recommendations: 01/28/25 PT recommended Home PT and 01/28/25 OT recommended Home. Yandel is agreeable to PT offered by patients facility. LAKESHIA GALLEGO discussed discharge transportation. Yandel informed that patient is responsible for all out of pocket costs for medical transport. Yandel confirms he is agreeable to medical transport. IMM Follow Up Copy Given: Yes Copy given to:: Patient Forest Products Teacher Forest Products Teacher Name/Relationship: Son: Yandel Good - Method: By Phone MMT Transport scheduled for today at 3:30 PM - Trip Number [id number] Transport envelope on chart with Nurse to Nurse Report Number RN CM updated Nurse Yaritza Steven RN. RN CM called [facility] spoke with Nurse: Cori to discuss need for Home PT services. She confirms the will arrange PT with the facility therapist. She has been informed that patient will be discharge and returning to them today. Facility updated in [facility] on Discharge Plan and Medical Transport Time. SIGNATURE: Naheed Greenberg RN PATIENT NAME: Na Good DATE: January 29, 2025 TIME: 2:13 PM [facility] 01-29-2025 Note HNO ID: [id number] Author: LIDIA ARMENTA APRN.CNP Service: Cardiovascular Medicine Author Type: Nurse Practitioner Type: Progress Notes Filed: 01/29/2025 10:50 Note Text: [facility] [place] [facility] Rayo Department of Cardiovascular Medicine [facility] CARDIOLOGY/[facility] Progress Note Elements of this note, including but not limited to HPI, ROS, Physical Exam, Assessment and Plan were copied and pasted from previous visit notes completed within our department. Updates have been made where appropriate/noted and reflect current exam and medical decision making from date of this visit. Name: Na Good : 1935 Primary Physician: Alexey Vinson Sr, DO Consulting Physician: Julio Cesar Alvarez MD Primary Etymology Professor: Mandeep - last visit 2019 SERVICE DATE: January 29, 2025 Interval History: Patient seen resting in bed - no family at bedside No events reported overnight Patient reports improvement in breathing since admission Denies chest pain or palpitations Remains on RA She endorses not sleeping well last night - she reports having a nightmare. 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 Grade I left ventricular diastolic dysfunction. WMA reported. 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 - resume home lasix starting tomorrow AM. - Low sodium diet and fluid allowance reviewed - monitor IANDO >> net negative 3 liters since admission - daily weights >> ? accuracy Aortic Regurgitation - echo 12/26/2024: There is mild to moderate (1+ - 2+) aortic valve regurgitation. - continue periodic monitoring LV Thrombus - noted on Echo at OSH in July 2024 - continue Eliquis - echo in December did not report LV thrombus HTN - good BP control - continue meds as noted above HLD - continue current statin Case discussed with Dr. Martinez and nursing staff. Lidia Armenta APRN.[employer] 01/29/2025 9:00 AM PAST MEDICAL HISTORY PAST MEDICAL HISTORY [...] 5 mg tab(s) (CRESTOR) 5 mg ORAL DAILY metoprolol succinate ER 25 mg tab(s) (TOPROL XL) 25 mg ORAL DAILY empagliflozin 10 mg tab(s) (JARDIANCE) 10 mg ORAL DAILY WITH BREAKFAST mirtazapine 30 mg (REMERON) 30 mg ORAL AT BEDTIME NaCl 0.9% iv flush bag 20 mL INTRAVENOUS PRN furosemide 20 mg injection (LASIX) 20 mg INTRAVENOUS BID 9a/5p ondansetron orally disintegrating 4 mg tab(s) (ZOFRAN ODT) 4 mg ORAL q 6 H PRN Or ondansetron (PF) 4 mg injection (ZOFRAN) 4 mg INTRAVENOUS q 6 H PRN docusate sodium 100 mg cap(s) (COLACE) 100 mg ORAL BID PRN magnesium hydroxide 400 mg/5 mL 30 mL (MOM) 30 mL ORAL DAILY PRN acetaminophen 650 mg tab(s) (TYLENOL) 650 mg ORAL q 6 H PRN melatonin 6 mg tab(s) 6 mg ORAL AT BEDTIME enalapril 5 mg tab(s) (VASOTEC) 5 mg ORAL BID cephALEXin 500 mg cap(s) (KEFLEX) 500 mg ORAL BID ALLERGIES ALLERGIES Allergen Reactions Cortisone facial swelling after IM injection PHYSICAL EXAM BP 135/85 Pulse 86 Temp 36.4 ?C (97.6 ?F) (Oral) Resp 18 Ht 157.5 cm (5' 2) Wt 57 kg (125 lb 10.6 oz) SpO2 91% BMI 22.98 kg/m? General Appearance: Well developed and No acute distress HEENT: EOM's intact, Fair dentition, and No lesions Lungs: Decreased breath sounds and Respiratory effort: normal Heart: Regular rate AND rhythm, no Murmur , and No Edema Abdomen: Soft and Bowel sounds present Skin: Warm and Dry Musculoskeletal: No deformities Neurologic/Psychiatric: Oriented to time, place AND person and Tremors noted - baseline. CARDIAC STUDIES: LV Ejection Fraction (%) Date Value 12/26/2024 25 02/06/2006 40 10/05/2003 45 Last ECHO Result Conclusion ECHO [facility] (more content not included)... [facility] 01-28-2025 Note HNO ID: [id number] Author: NAHEED GREENBERG RN Service: Care Management Author Type: Registered Nurse Type: Care Mgt Initial Assessment Filed: 01/28/2025 14:43 Note Text: CARE MANAGEMENT: ASSESSMENT AND DISCHARGE PLAN SERVICE DATE: January 28, 2025 SERVICE TIME: 8:38 AM drawer in plain loom spoke with patient to complete Care Management Assessment. RN CM left voice message for Daughter/HCPOA: Yuridia Whyte [phone] to call CM to discuss discharge planning. Introduction made and role of Care Management explained. PCP: Alexey Vinson Sr, DO Primary Contact: Extended Emergency Contact Information Primary Emergency Contact: Janelle Bailey Mobile Relation: Daughter Secondary Emergency Contact: Yuridia Whyte Mobile Relation: Daughter Admission Status: Inpatient Insurance Provider: MEDICARE A AND B Discharge Planning requested by: Per Department Practice Potential Transition Plans Home Advance Directives Current Advance Directive: Health Care Power of Privacy Manager In Chart: Yes Current Living Arrangements and Support Type of Residence: Assisted Living Facility Does the patient have to climb stairs at home?: No Care Facility Name: [facility]: [facility] - How do you manage to accomplish the following: Needs Assistance: Ambulation, Bathe/Shower, Dress, Going to the bathroom Dependent: Meals/Meal Prep, Medication Management, Transportation to appointments/community Current Services/Equipment Current Post-Acute Service(s): DME Current DME Type: (Walking Sticks and Wheeled Walker) Current Post-Acute Service(s) Provider: None Discharge Planning Patient Goal(s): Be able to go home [place] Explained: [place] Given: No (Discharge Needs: To be Determined) Discharge Planning Participant(s): Patient Transport at Discharge: Transportation Arrangements: To Be Determined Needs Prior to Discharge: Needs Prior to Discharge: To Be Determined, OT/PT Evaluation, Discharge Transportation Post-Acute Discharge Plan: 01/28/25 2:43 PM RN CM called [facility] spoke with Nurse Adriana in Assisted Living. Adriana confirms patient is a resident in [facility]. She confirmed PCP: Alexey Espino DO - and Pharmacy for Discharge: [facility] in [facility] - Adriana informs CM that patient is not active with HHC or Therapy at the facility prior to admission. Discharge Transportation: To be Determined. CM Dept to Follow. SIGNATURE: Naheed Greenberg RN PATIENT NAME: Na Good DATE: January 28, 2025 TIME: 2:38 PM [facility] 01-28-2025 Note HNO ID: [id number] Author: JULIO CESAR ALVAREZ MD Service: Hospital Medicine Author Type: Physician Type: Progress Notes Filed: 01/28/2025 12:39 Note Text: DEPARTMENT OF HOSPITAL MEDICINE PROGRESS NOTE SERVICE DATE: 01/28/2025 SERVICE TIME: 12:35 PM Hospital Medicine/Primary Attending: Julio Cesar Alvarez MD NIGHT AND WEEKEND COVERAGE: [place] COVERAGE: Days: [phone], please page attending physician. Nights: [phone], please page [place] Hospitalist Night coverage pager [phone]. Subjective INTERVAL HPI: No acute events overnight. Patient appears to become dressing in bed. No complaints this a.m. States that shortness of breath is improving. Continue monitor. Pending PT/OT evaluation. Cardiology consult appreciate further recommendations. Current Facility-Administered Medications Medication Dose Route Frequency apixaban 2.5 mg tab(s) (ELIQUIS) 2.5 mg ORAL BID spironolactone 12.5 mg tab(s) (ALDACTONE) 12.5 mg ORAL DAILY enalapril 2.5 mg tab(s) (VASOTEC) 2.5 mg ORAL BID rosuvastatin 5 mg tab(s) (CRESTOR) 5 mg ORAL DAILY metoprolol succinate ER 25 mg tab(s) (TOPROL XL) 25 mg ORAL DAILY empagliflozin 10 mg tab(s) (JARDIANCE) 10 mg ORAL DAILY WITH BREAKFAST mirtazapine 30 mg (REMERON) 30 mg ORAL AT BEDTIME NaCl 0.9% iv flush bag 20 mL INTRAVENOUS PRN furosemide 20 mg injection (LASIX) 20 mg INTRAVENOUS BID 9a/5p ondansetron orally disintegrating 4 mg tab(s) (ZOFRAN ODT) 4 mg ORAL q 6 H PRN Or ondansetron (PF) 4 mg injection (ZOFRAN) 4 mg INTRAVENOUS q 6 H PRN docusate sodium 100 mg cap(s) (COLACE) 100 mg ORAL BID PRN magnesium hydroxide 400 mg/5 mL 30 mL (MOM) 30 mL ORAL DAILY PRN acetaminophen 650 mg tab(s) (TYLENOL) 650 mg ORAL q 6 H PRN melatonin 6 mg tab(s) 6 mg ORAL AT BEDTIME Objective PHYSICAL EXAM: BP 124/75 Pulse 83 Temp (Src) 97.7 (Axillary) Resp 18 Ht 5' 2 (1.58m) Wt 125 lb 10.6 oz (57.0kg) SpO2 93% BMI 22.98 kg/(m2). O2 Therapy: Room Air Physical Exam Performed Constitutional: In no apparent distress. Vital signs stable. Generalized fatigue Eye: Pupils are equal. Extraocular motions intact ENMT: No visible external trauma. Hearing grossly intact. Neck: No Jugular Vein Distention Cardiovascular: Regular rate and rhythm. S1 and S2 Respiratory: Reduced breath sounds Gastrointestinal: Soft, without detectable tenderness. No sign of distention. No rebound or guarding, no masses palpated. Bowel sounds present Genitourinary: Bladder soft Musculoskeletal: Reduced range of motion of all major joints. Extremities without clubbing, without cyanosis, without edema Integumentary: No rash, no bruising, no lesions Neurologic: Oriented to person, place and time. No focal sensory or strength deficits. Speech normal. Follows commands Psychiatric: Calm, cooperative, appropriate Lines, Drains, and Airways Line Duration Peripheral 01/27/25 1330 Right Antecubital 20 Gauge <1 day Drain Duration External Collection Device 01/27/25 2355 <1 day Reviewed lines and needs to be continued: REASONS: Intravenous fluids Electrolyte replacement DATA: Diagnostic tests reviewed for today's visit: Most recent labs Most recent imaging Most recent EKG CBC, Coags, BMP, Mg, Phos Recent Labs 01/28/25 0448 01/27/25 1330 WBC 9.52 10.57 HB 13.7 14.5 HCT 41.1 45.1 PLT 330 389 NA 141 141 K 4.0 4.8 CHLOR 103 103 CO2 27 25 BUN 25* 25* CREAT 0.99* 0.91 GLUC 83 98 CA 8.9 9.5 MG -- 2.5* Assessment/Plan Problem List CHF (congestive heart failure), NYHA class I, acute on chronic, combined (HCC) (POA: Yes) Shortness of breath (POA: Yes) Chest pain (POA: Status not on file) HFrEF (heart failure with reduced ejection fraction) ([facility]) (POA: Status not on file) Difficulty sleeping (POA: Status not on file) HOSPITAL COURSE: Na Good is a 89-year-old female PMH CHF, dilated cardiomyopathy, presents today for shortness of breath, difficulty sleeping. HFrEF - Acute Exacerbation ECHO: - Exam indication: cardiomyopathy - The left ventricle is severely dilated. Left ventricular systolic function is severely decreased. EF = 25 ? 5% (2D biplane) Grade I left ventricular diastolic dysfunction. -There is mild to mooderate (1+ - 2+) aortic reguyrgitation. - The right ventricle is normal in size. Right ventricular systolic function is moderately decreased. - Exam was compared with the prior OUTSIDE echocardiographic exam performed on 01/28/15. 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 [facility] 01-27-2025 Note SARS-COV-2 (AGENT OF COVID-19) RNA: Not detected INFLUENZA A RNA: Not detected INFLUENZA B RNA: Not detected RESPIRATORY SYNCYTIAL VIRUS (RSV) RNA: Not detected [facility] Comment on above: Performed By: #### [id number] ####[facility]ORATORY[facility] [id number] [place] [address] [facility] 12-27-2024 Note HNO ID: [id number] Author: JOAN CARRIZALES RN Service: ? Author Type: Registered Nurse Type: Nursing Progress Note Filed: 12/27/2024 12:22 Note Text: Report was given to cori at [facility] 12-27-2024 Note HNO ID: [id number] Author: ANDRE SAN LSW Service: Care Management Author Type: Recreational Therapy Technician Type: Care Mgt Progress Note Filed: 12/27/2024 11:32 Note Text: CARE MANAGEMENT DISCHARGE NOTE SERVICE DATE: December 27, 2024 SERVICE TIME: 11:28 AM Admission Date: 12/24/2024 LOS: 3 days Discharge Arrangement Services Arranged Provider Name: [facility] Caregiver Assessment Transportation Arrangements Transportation Arrangements: Car Date of Trip: 12/27/24 Time of Trip: 1300 Is Patient Medicaid Pending?: No Was transportation financial coverage discussed with family?: Patient, Family Machine Compositor Location: [place] Destination: [facility] Financial Care Management Responsibility: None Handoff Communication: Handoff to: Other Caregiver Other Caregiver Name/Phone: Daughter confirmed pt has homecare services through [facility]. F2f included in d/c envelope Additional Information: CM notified regarding d/c today, return to [facility]. Family confirmed pt's son, Yandel Good, will be transporting pt back to the facility. Envelope with d/c information updated. CM will follow, as needed. SIGNATURE: DALILA Moy, ACHe PATIENT NAME: Na Good DATE: December 27, 2024 TIME: 11:28 AM [facility] 12-27-2024 Note HNO ID: [id number] Author: LIDIA ARMENTA APRN.VERONICA Service: Cardiovascular Medicine Author Type: Nurse Practitioner Type: Progress Notes Filed: 12/27/2024 09:43 Note Text: Heart [facility] [place] Domen[facility] Rayo Department of Cardiovascular Medicine [facility] CARDIOLOGY/[facility] Progress Note Elements of this note, including [...] MD Consulting Physician: Liam Smith MD Primary Etymology Professor: SERVICE DATE: December 27, 2024 Interval History: Patient seen and examined sitting up in bed - son at bedside Patient with no cardiac complaints this AM Patient KOOTENAI Overall improved since admission Discharge was held up yesterday due to lower BP readings Pending possible discharge today back to [place]. 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 Matthews and nursing staff. Lidia Armenta, WATER SANDER.BURN OUT TENDER LACE 12/27/2024 7:36 AM PAST MEDICAL HISTORY PAST [...] ?F) Resp 16 Ht 157.5 cm (5' 2) Wt 55.6 kg (122 lb 9.2 oz) SpO2 93% BMI 22.42 kg/m? General Appearance: Thin and No acute distress HEENT: EOM's intact (more content not included)... [facility] 12-26-2024 Note HNO ID: [id number] Author: LIAM SMITH MD Service: General Internal [...] (Src) 97.8 (Oral) Resp 16 Ht 5' 2 (1.58m) Wt 122 lb 5.7 oz (55.5kg) [...] mg PO 2 TIMES DAILY Given, 12/26 83412/24/24 1822 -- 12/24/24 1830 activity - mobilize patient (mt,oh) VTE Prophylaxis: VTE prophylaxis appropriate SIGNATURE: Liam Smith MD PATIENT NAME: Na Good DATE: December 26, 2024 TIME: 1:54 PM [facility] 12-25-2024 Note HNO ID: [id number] Author: CATHLEEN THOMAS LSW Service: Care Management Author Type: Recreational Therapy Technician Type: Care Mgt Initial Assessment Filed: 12/25/2024 10:24 Note Text: CARE MANAGEMENT: ASSESSMENT AND DISCHARGE PLAN SERVICE DATE: December 25, 2024 SERVICE TIME: 9:19 AM PCP: Johnson Watson MD, MD Primary Contact: Extended Emergency Contact Information Primary Emergency Contact: FAIZA LUIS Mobile Relation: Daughter Secondary Emergency Contact: KARLOS GOOD Relation: Spouse Admission Status: Inpatient Insurance Provider: MEDICARE A AND B Discharge Planning requested by: Per Department Practice Potential Transition Plans Other: See Comment ([facility]) Advance Directives Current Advance Directive: Health Care Power of Privacy Manager In Chart: No Gun Barrel Finisher Attempted to Assist with AD Completion: Yes Action: Other: See Comment (Asked RN at [facility] to fax to dept.) Current Living Arrangements and Support Lives with: Alone Type of Residence: Assisted Living Facility Does the patient have to climb stairs at home?: No Care Facility Name: [facility] Home Support: Children, Family members How do you manage to accomplish the following: Independent: Dress, Going to the bathroom Needs Assistance: Ambulation, Bathe/Shower, Meals/Meal Prep, Medication Management Dependent: Transportation to appointments/community Current Services/Equipment Current Post-Acute Service(s): DME Current DME Type: Other: See Comment (walking sticks) Discharge Planning Patient Goal(s): General wellness [place] Choice Explained: [place] of [place] Given: Yes Level of Care Discussed: Other: See Comment ([facility]) Are you interested in bedside delivery of your medications? No Discharge Planning Participant(s): Patient, Other person(s) Name/Relationship: RN from [facility] Patient/Family Comments: Caregiver Assessment: Caregiver is ready, willing and able to meet the patient's needs as recommended by the inter-professional team: Yes Name of Caregiver: [facility] Transport at Discharge: Transportation Arrangements: Ambulance Transportation Agency and Phone #:: [facility] [phone] Needs Prior to Discharge: Needs Prior to Discharge: To Be Determined, Discharge Transportation, Other: See Comment, OT/PT Evaluation (medical clearance) Post-Acute Discharge Plan: EMR reviewed. CMSW called and spoke to RN at [facility]; introduced self/role. RN states that she will fax dept POA paperwork. Patient is an 89 year old female who presents with acute on chronic congestive heart failure with PMH of chf (per chart review -July 2024 EF 28%), LV thrombus (eliquis), HTN, tremors, macular degeneration, CAD, KOOTENAI, and insomnia. RN states that they patient uses [facility] for medications but is unable to confirm which location. 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 Patient is from with [facility] and needs assistance with ADLs. MMT to transport at discharge. Patient is safe and has her needs met. CM assigned will continue to follow for discharge needs. Updated 10:22 am: [facility] with the [facility] and patient's daughter, Janelle, at bedside to confirm discharge plan of patient returning to [facility] at discharge; her son will transport her. SIGNATURE: DALILA Salinas PATIENT NAME: Na Good DATE: December 25, 2024 TIME: 9:19 AM [facility] 09-21-2020 Miscellaneous Notes Na called for a refill Pending Prescriptions: Disp Refills lisinopriL (PRINIVIL,ZESTRIL) 20 MG [id number] tab*3 Sig: Take 1 (one) tablet (20 [...] 07/28/2020 Upcoming appt 01/31/2021 Please send to [facility] - [address] [id number] [address] [facility] [address] [facility] [address] Please advise documented in this encounter [facility] 11-09-2017 Telephone encount er Note Second VM left for pt. [facility] 11-09-2017 Miscellaneous Notes Formattin g of this note might be different from the original. Second VM left for pt. Left pt a VM asking her to give our office a call back in regard to a medication refill request that we received. Medication requested; lisinopril 20 mg tab. documented in this encounter [facility] 11-07-2017 Telephone encount er Note Left pt a VM asking her to give our office a call back in regard to a medication refill request that we received. Medication requested; lisinopril 20 mg tab. [facility] Evaluation note Diagnosis Benign essential hypertension Essential hypertension, benign Chronic combined systolic and diastolic congestive heart failure (HCC) Insomnia, unspecified type documented in this encounter [facility] Assessments Diagnosis Essential hypertension - Ana [...] also different styles of hearing aids. A hekixa-luf-wxe (BTE) hearing aid connects to a plastic [...] be replaced as the child grows. An iy-qao-etany (ITC) hearing aid fits into the ear [...] can go to your doctor or an deicer element winder machine. He or she will do a hearing test and help you decide which type and style of hearing aid may be best for you. But, if your hearing loss is mild to moderate, you might consider buying a good quality uzcw-oom-ofszmbh hearing aid, which may be called a [...] Log into your personal health record on [email or web address].Synchronica and enter K597 in the Education box to learn more about Learning About Hearing Aids. Current as of: February 10, 2018 Content Version: 12.1 5774-7509 [employer]. Care instructions adapted under license by your healthcare professional. If you have questions about a medical condition or this instruction, always ask your healthcare professional. [employer] disclaims any warranty or liability for your use of this information. documented in this encounter* Patient Instructions* Danii Chen RN - 01/13/2019 10:29 AM EDT .How to contact your Care Team: Provider: Rubin Chirinos MD [facility] Nurse: Danii Chen RN In case of an emergency please call 911. REFILLS: When in need for refills please call your care team or the office at [phone]. Please include medication name, pharmacy name, and [...] your Care Team: Provider: Rubin Chirinos MD [facility] Nurse: Danii Chen RN documented in this [...] FoundDocuments on File Type Date Recorded Patient Forest Products Teacher Expl anation Advance Directives and Living Will Documents on File Type Date Recorded Patient Forest Products Teacher Expl anation Advance Directives and Living Will Documents on File Type Date Recorded Patient Forest Products Teacher Expl anation Advance Directives and Livin g Will 02/03/2020 12:00 AM Documents on File Type Date Recorded Patient Forest Products Teacher Expl anation Advance Directives and Livin g Will 02/03/2020 12:00 AM History of Present Illness * David uLdwig MD - 06/26/2018 11:06 AM EST OFFICE [...] kg (125 lb 3.2 oz) Height: 5' 3 Body mass index is 22.18 kg/m . [...] Objective:BP (!) 167/81 Pulse 69 Ht 5' 3 Wt 57.5 kg (126 lb 11.2 oz) [...] Marcelo AuD - 12/04/2018 11:34 AM EDT [facility] [address] [place] [address] Name: Na Good : 1935 Date: 12/04/18 [...] for hearing aid use at Dr. Arce's discretion.[place] [employer] for hearing aid fitting pending otologic clearance at patient's discretion. Use of good communication strategies such as fnjm-ej-knao communication and reduction of background noise when [...] Cuff Size: Adult) Pulse 74 Ht 5' 3 Wt 57.4 kg (126 lb 9.6 oz) [...] and external ear canal shape. CPT code 31283.50. With the patient in a slightly reclained [...] review the comprehensive hearing test results in [facility] and provided an interpretation to the patient. 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 Information on the devices and referral to the deicer element winder machine arranged. Assessment/Plan: Bilateral symmetric mild sensorineural hearing [...] 01/13/2019 11:50 AM EDT OFFICE CONSULTATION NOTE [facility] [address] ([address]) [facility] [address] [facility] [id number] Physicians: David Ludwig MD Subjective: Na Good [...] Weight: 56.7 kg (125 lb) Height: 5' 3 Orders Placed This Encounter ECG 12 Lead [...] patient is not nervous/anxious. Vitals: 06/16/19 0954 02/24/20 0958 BP: (!) 163/76 130/74 BP Location: Left arm Left arm Patient Position: Sitting Sitting BP Cuff Size: Adult Adult Pulse: 78 82 Resp: 18 Temp: 97.9 F (36.6 C) TempSrc: Oral SpO2: 98% 97% Weight: 59.2 kg (130 lb 9.6 oz) Height: 5' 3 Body mass index is 23.13 kg/m . [...] 01/15/2020 3:33 PM EDT OFFICE CONSULTATION NOTE [facility] [address] ([address]) [facility] [address] [facility] [phone] Physicians: David Ludwig MD Subjective: Na [...] Cardiomyopathy (HCC) 1999 nonischemic; EF 20-25% in 2000 increased to 40% in 2014 Disease of [...] Weight: 57.6 kg (127 lb) Height: 5' 3 Orders Placed This Encounter Ultrasound doppler carotid [...] Directive (Living Will and/or Durable Power of Privacy Manager for Health Care)?: Yes What is your [...] Word Registration Version Used: Version 1: Ibeth Roper Chair Step 2: Clock Drawing Step 2 [...] conjunction with the immunization order to satisfy [place] Board of Pharmacy Positive ID requirements for [...] week Gets together: Twice a week Attends taoism service: Not on file Active member of [...] Equipment Co[employer] (DME) [facility] - [address] [facility] [id number] - [address] [facility] [address] [place] [address] Objective Blood pressure 133/70, pulse 98, temperature 97.8 F (36.6 C), temperature source Oral, height 5' 3, weight 57.6 kg (127 lb). Body mass [...] mood. The patient is not nervous/anxious. Vitals: 04/07/21 1354 BP: 139/82 BP Location: Left arm Patient Position: Sitting BP Cuff Size: Adult Pulse: 84 Temp: 98.7 F (37.1 C) TempSrc: Oral SpO2: 97% Weight: 57.4 kg (126 lb 9.6 oz) Height: 5' 3 Body mass index is 22.43 kg/m . [...] Diagnoses Presbycusis, unspecified laterality Oscar Mendes MD [address] [place] [id number] Ceasar Arce MD [address] [address] Status Reason Specialty Diagnoses / Procedures Referred By Contact Referred To Contact Pending Review Cardiology Diagnoses Bruit of left carotid artery Procedures Ultrasound doppler carotid Rubin Chirinos MD [address] [place] [address] Additional Source Comments Assessment & Plan Note [...] decompensated heart failure in the clinic today. [place] [employer] functional class I-II. She is [...] section and content) DATE CREATED AUTHOR 04/01/2018 [facility] DATE CREATED AUTHOR AUTHOR'S ORGANIZ ATION 02/04/2020 [facility] DATE CREATED AUTHOR AUTHOR'S ORGANIZ ATION 01/15/2021 [facility] DATE CREATED AUTHOR AUTHOR'S ORGANIZ ATION 01/07/2025 [facility] DATE CREATED AUTHOR AUTHOR'S ORGANIZ ATION 02/06/2025 [facility] Reason for Visit (unrecogniz ed section and content) Reason Comments Congestive Heart Failure Hypertension Hyperlipidemia Reason Comments Hearing Loss Pt req to see Dr EGAN New PT Status Reason Specialty Diagnoses / Procedures Referred By Contact Referred To Contact Closed Otolaryngology Diagnoses Presbycusis, unspecified laterality Oscar Mendes MD [facility] [place] [address] Ceasar Arce MD [address] [place] [address] Reason Comments Medicare Wellness Visit VM to schedule [place] Status Reason Specialty Diagnoses / Procedures Referred By Contact Referred To Contact Closed Specialty Services Required/Patient' s Best Interest Audiology Diagnoses Sudden hearing loss, unspecified laterality Ceasar Arce MD [address] [place] [id number] Kriss Marcelo AuD Reason Comments Hearing Loss left ear Reason Comments Follow-up Denies Chest pain,pr essure,SOB,Swelling Reason Comments Hypertension Hyperlipidemia Hypothyroidism Reason Comments Follow-up yearly Status Reason Specialty Diagnoses / Procedures Referred By Contact Referred To Contact Pending Review Cardiology Diagnoses Bruit of left carotid artery Procedures Ultrasound doppler carotid Rubin Chirinos MD [address] [place] [address] Reason Onset Date Comments Medicare Wellness Visit Fall Risk Screening 12/08/2019 Reason Comments Hypertension Hyperlipidemia Congestive Heart Failure Reason Onset Date Comments Medication Refill 09/21/2020 Reason Comments Medication Refill Care Teams (unrecognized sec tion and content) [facility] Nurse Relationship Specialty Start Date End Date Anika Hernandez CNP PCP - General Nurse Practitioner 06/15/17 11/28/17 David Ludwig MD PCP - General Family Medicine 11/29/17 David Ludwig MD [facility] [place] [address] PCP - CMS Attributed Provider 07/22/20 04/22/21 FOR RECORDS PERTAINING [...] BE BASED ON THE PRIMARY CLINICAL RECORDS. [facility]. provides no warranty or guarantee of the accuracy or completeness of information in this document.
[2025-02-19 09:21] LABS: Hematocrit 37.2 % (37-47); Hemoglobin 12.5 g/dL (12.0-15.0); Mean Corp Hgb Conc 33.6 g/dL (32-36); Mean Corpuscular Volume 86.9 fL (81-99); Mean Platelet Vol. 10.8 fl (6.2-12.0); Platelet Count 346 K/mm3 (150-450); RBC Distribution Width CV 15.8 % (11.6-14.6); RBC Distribution Width SD 49.9 fl (35.1-43.9); Red Blood Count 4.28 M/mm3 (4.2-5.4); White Blood Count 9.0 K/mm3 (4.4-11.0)
[2025-02-19 09:38] LABS: AST(SGOT) 31 U/L (<=31); Alanine Aminotransfer ALT/SGPT 22 U/L (<=34); Albumin, Serum 3.3 g/dL (3.4-4.8); Alkaline Phosphatase 36 U/L (35-104); Anion Gap 10 (5-15); BUN 21 mg/dL (4-19); BUN/Creat Ratio 22.5 RATIO (10-20); Calcium,Total 8.4 mg/dL (7.6-11.0); Carbon Dioxide 24.4 mmol/L (21.0-32.0); Chloride 101 mmol/L (98-108); Globulin 2.0 g/dL (2.2-4.2); Glucose 66 mg/dL (70-99); Potassium 4.1 mmol/L (3.3-5.1)
== END ==
LOC: OLS.ACH2 05:00
PROVIDERS: Visit Provider Internal Medicine
DX: I50.22 Chronic systolic (congestive) heart failure (principal)
CPT/HCPCS: 36415; 80053; 85027

== ENCOUNTER → 2025-02-24 04:00 | Outpatient (REF) | payer MEDICARE, OTHER, SELFPAY ==
[2025-02-24 08:31] LABS: Mucous, Urine 0 SEEN /hpf (<or=2+); Red Blood Cells-Urine 0 SEEN /hpf (0-5)
[2025-02-24 09:05] LABS: Hematocrit 39.1 % (37-47); Hemoglobin 13.1 g/dL (12.0-15.0); Mean Corp Hgb Conc 33.5 g/dL (32-36); Mean Corpuscular Volume 87.7 fL (81-99); Mean Platelet Vol. 10.6 fl (6.2-12.0); Platelet Count 359 K/mm3 (150-450); RBC Distribution Width CV 16.4 % (11.6-14.6); RBC Distribution Width SD 52.3 fl (35.1-43.9); Red Blood Count 4.46 M/mm3 (4.2-5.4); White Blood Count 9.6 K/mm3 (4.4-11.0)
[2025-02-24 09:27] LABS: Color, Urine Yellow (Yellow); Glucose, Dipstick 1000 mg/dl (Normal); Ketone-Dipstick 5 mg/dl (Negative); Leukocyte Esterase-Dipstick 500 /ul (Negative); Nitrite-Dipstick Negative (Negative); Occult Blood-Urine 10 /ul (Negative); Protein-Dipstick 30 mg/dl (Negative); Specific Gravity, Urine 1.020 (1.002-1.030); Urine Bilirubin Dipstick Negative (Negative)
[2025-02-24 09:53] LABS: Squamous Epithelial Cells - UA 0-5 SEEN /hpf (5-10)
[2025-02-24 09:57] LABS: AST(SGOT) 35 U/L (<=31); Alanine Aminotransfer ALT/SGPT 27 U/L (<=34); Albumin, Serum 3.7 g/dL (3.4-4.8); Alkaline Phosphatase 38 U/L (35-104); Anion Gap 9 (5-15); BUN 28 mg/dL (4-19); BUN/Creat Ratio 30.1 RATIO (10-20); Calcium,Total 9.2 mg/dL (7.6-11.0); Carbon Dioxide 25.1 mmol/L (21.0-32.0); Chloride 103 mmol/L (98-108); Globulin 2.1 g/dL (2.2-4.2); Glucose 85 mg/dL (70-99); Potassium 4.6 mmol/L (3.3-5.1); Vitamin B12 812 pg/mL (180-914)
== END ==
LOC: OLS.ACH2 04:00
PROVIDERS: Referring Provider Internal Medicine; Visit Provider Internal Medicine
DX: I50.22 Chronic systolic (congestive) heart failure (principal); I11.0 Hypertensive heart disease with heart failure; R53.82 Chronic fatigue, unspecified
CPT/HCPCS: 36415; 80053; 81001; 82607; 84443; 85027; 87086; 87088

== ENCOUNTER → 2025-03-09 04:00 | Outpatient (REF) | payer MEDICARE, OTHER, SELFPAY ==
[2025-03-09 09:29] LABS: Anion Gap 8 (5-15); BUN 27 mg/dL (4-19); BUN/Creat Ratio 24.6 RATIO (10-20); Calcium,Total 9.5 mg/dL (7.6-11.0); Carbon Dioxide 34.8 mmol/L (21.0-32.0); Chloride 99 mmol/L (98-108); Glucose 75 mg/dL (70-99); Potassium 4.2 mmol/L (3.3-5.1)
== END ==
LOC: OLS.ACH2 04:00
PROVIDERS: Referring Provider Internal Medicine; Visit Provider Internal Medicine
DX: I50.22 Chronic systolic (congestive) heart failure (principal); I11.0 Hypertensive heart disease with heart failure
CPT/HCPCS: 36415; 80048

== ENCOUNTER → 2025-03-23 05:00 | Outpatient (REF) | payer MEDICARE, OTHER, SELFPAY ==
--- OUTSIDE RECORDS SUMMARY | 2025-03-23 03:39 | XMS RPT_ITS | CCD ---
Author Organization [facility] Care Team Providers Care Household Personal Assistant Name Role Phone Anika Hernandez Unavailable Unavailable Oscar Mendes Unavailable Unavailable Unavailable Unavailable David Ludwig Unavailable Alfredo Barreto Unavailable Unavailable Alfredo Barreto Unavailable Unavailable Gorenflo, Escobar Rivka Unavailable Unavailab le Gorenflo, Escobar Rivka Unavailable Unavailab le YossiontOscar Unavailable Unavaila [...] le CRODAVID HARKINS Primary Care Unavailab le CROUCHDAVID Attending Unavailab le CRODAVID HARKINS Primary Care Unavailab le CRODAVID HARKINS Attending Unavailab le DAVID LUDWIG Primary Care Unavailab le Hernandez Anika MARTIN Primary Care Provider David Ludwig MD Primary Care Provider David Ludwig MD Unavailable LIDIA ARMENTA Attending Unavailable JOVANI COCHRAN Attending Unavailable JOHNSON WATSON Primary Care Unavailab LIAM Viramontes Admitting Unavailable LIAM SMITH Attending Unavailable ROJAS MATTHEWS Consulting Unavailable JOHNSON WATSON Primary Care Unavailab ANIKA Mosher Admitting Unavailable JULIO CESAR ALVAREZ Attending Unavailable SUSIE VYAS Consulting Unavailable BISMARK SALES Admitting Unavailable BEATRIS GILLILAND Attending Unavailable Deperro OLS, Alexey Referring Unavailable Deperro OLS, Alexey Attending Unavailable Deperro OLS, Alexey Attending Unavailable Deperro OLS, Alexey Attending Unavailable Deperro OLS, Alexey Attending Unavailable Deperro OLS, Alexey Referring Unavailable Deperro OLS, Alexey Referring Unavailable Deperro OLS, Alexey Attending Unavailable Deperro OLS, Alexey Attending Unavailable Allergies Allergy Classification Reported Allergen(s) Allergy Type Date of Onset Reaction(s) Facility Corticosteroids (1 source) Cortisone Drug Allergy 6 [facility] (20 sources) cortisone; Translations: [CORTISONE] Propensity to adverse reactions to drug 2 [facility] Work Phone: Medications Current Medications Medication Drug [...] (two) times a day. Active Flu Vaccine [id number](65yr Up)(Pf)180 McG/0.5 Ml Intramuscular Syringe (1 source) Start: 12-27-2017 End: 12-27-2017 flu vaccine tv 2017, 65yr up,,PF, (FLUZONE HIGH DOSE) syringe Indications: Need for influenza vaccination Sign this order in conjunction with the immunization order to satisfy [place] Board [employer] Pharmacy Positive ID requirements for [...] regurgitation; Translations: [Aortic valve regurgitation] 01-06-2016 Chronic Malaise and fatigue (1 source) Chronic fatigue, unspecified; Translations: [Chronic fatigue, unspecified] Onset: 02-24-2025 Chronic Miscellaneous mental health disorders (1 source) Primary insomnia; Translations: [Primary insomnia] Onset: 02-25-2025 Chronic Mood disorders (1 source) Mood disorder; [...] on exertion Episodic Other lower respiratory disease (2 sources) Shortness of breath; Translations: [SOB (shortness of breath)] Onset: 01-27-2025 Episodic Other lower respiratory disease [...] Reference Range Facility Basic metabolic 2000 panelon 03-04-2025 Anion gap [Moles/Vol] 13 mmol/L Normal 8-15 [facility] Comment on above: Order Comment: Speci men Type: BLOOD SPECIMENOrdering Facility: [facility] Address: [address] [place] [address] [place] [address] Performed By: #### 1 9123-9, 43200-2, 96847-8 ####[facility] LABORATORYCLIA [id number] [place] [address] [place] Calcium [Mass/Vol] 9.1 mg/dL Normal 8.5-10.2 [facility] Comment on above: Order Comment: Speci men Type: BLOOD SPECIMENOrdering Facility: [facility] Address: [address] [place] [address] Performed By: #### 1 9123-9, 16385-8, 09849-8 ####[facility] LABORATORYCLIA [id number] [place] [address] [place] Chloride [Moles/Vol] 98 mmol/L Normal 98-107 [facility] Comment on above: Order Comment: Speci men Type: BLOOD SPECIMENOrdering Facility: [facility] Address: [address] [place] [address] Performed By: #### 1 9123-9, 80097-5, 74434-3 ####[facility] LABORATORYCLIA [id number] [place] [address] [place] CO2 [Moles/Vol] 25 mmol/L Normal 22-30 [facility] Comment on above: Order Comment: Speci men Type: BLOOD SPECIMENOrdering Facility: [facility] Address: [address] [place] [address] Performed By: #### 1 9123-9, 73212-1, 54059-2 ####[facility] LABORATORYCLIA [id number] [place] [address] [place] Creatinine [Mass/Vol] 0.93 mg/dL Normal 0.58-0.96 [facility] Comment on above: Order Comment: Speci men Type: BLOOD SPECIMENOrdering Facility: [facility] Address: [address] [place] [address] Performed By: #### 1 9123-9, 80407-2, 45522-3 ####[facility] LABORATORYCLIA [id number] [place] [id number] [place] eGFRcr SerPlBld CKD-EPI 2020 59 mL/min/1.73m??? Low >=60 [facility] Comment on above: Order Comment: Speci men Type: BLOOD SPECIMENOrdering Facility: [facility] Address: [address] [place] [address] Result Comment: Radha mated Glomerular Filtration Rate [...] actual GFR. Performed By: #### 1 9123-9, 73012-0, 67890-4 ####[facility] LABORATORYCLIA [id number] [place] [id number] [place] Glucose [Mass/Vol] 93 mg/dL Normal 74-99 [facility] Comment on above: Order Comment: Vita florez Type: BLOOD SPECIMENOrdering Facility: [facility] Address: [address] [place], [place] [id number] Result Comment: The [place] Diabetes Association (ADA) provides guidance for cutoff [...] Standards of Medical Care in Diabetes 2016, [place] [employer]. Diabetes Care. 2016.39(Suppl 1). Performed By: #### 1 9123-9, 82534-7, 81722-5 ####[facility] LABORATORYCLIA [id number] [place] [id number] [place] Potassium [Moles/Vol] 4.1 mmol/L Normal 3.7-5.1 [facility] Comment on above: Order Comment: Vita florez Type: BLOOD SPECIMENOrdering Facility: [facility] Address: [address] [place] [address] Performed By: #### 1 9123-9, 94648-4, 23239-8 ####[facility] LABORATORYCLIA [id number] [place] [address] [place] Sodium [Moles/Vol] 136 mmol/L Normal 136-144 [facility] Comment on above: Order Comment: Speci men Type: BLOOD SPECIMENOrdering Facility: [facility] Address: [address] [place] [address] Performed By: #### 1 9123-9, 05750-2, 14353-8 ####[facility] LABORATORYCLIA [id number] [address] STATES [facility] Urea nitrogen [Mass/Vol] 29 mg/dL High 7-21 [facility] Comment on above: Order Comment: Speci men Type: BLOOD SPECIMENOrdering Facility: [facility] Address: [address] [place] [address] Performed By: #### 1 9123-9, 60672-6, 95261-7 ####[facility] LABORATORYCLIA [id number] [address] [place] CBC panel Auto (Bld)on 03-04 Erythrocyte distribution width (RBC) [Ratio] 16.9 % High 11.5-15.0 [facility] Comment on above: Order Comment: Speci men Type: BLOOD SPECIMENOrdering Facility: [facility] Address: [address] [place] [address] Performed By: #### 5 8410-2 ####[facility] LABORATORYCLIA [id number] [address] [place] Hematocrit (Bld) [Volume fraction] 42.7 % Normal 36.0-46.0 [facility] Comment on above: Order Comment: Speci men Type: BLOOD SPECIMENOrdering Facility: [facility] Address: [address] [place] [address] Performed By: #### 5 8410-2 ####[facility] LABORATORYCLIA [id number] [address] Hemoglobin (Bld) [Mass/Vol] 14.1 g/dL Normal 11.5-15.5 [facility] Comment on above: Order Comment: Speci men Type: BLOOD SPECIMENOrdering Facility: [facility] Address: [address] [place] [address] Performed By: #### 5 8410-2 ####[facility] LABORATORYCLIA [id number] [address] MCH (RBC) [Entitic mass] 28.9 pg Normal 26.0-34.0 [facility] Comment on above: Order Comment: Speci men Type: BLOOD SPECIMENOrdering Facility: [facility] Address: [address] [place] [address] Performed By: #### 5 8410-2 ####[facility] LABORATORYCLIA [id number] [address] MCHC (RBC) [Mass/Vol] 33.0 g/dL Normal 30.5-36.0 [facility] Comment on above: Order Comment: Speci men Type: BLOOD SPECIMENOrdering Facility: [facility] Address: [address] [place] [address] Performed By: #### 5 8410-2 ####[facility] LABORATORYCLIA [id number] [address] MCV (RBC) [Entitic vol] 87.5 fL Normal 80.0-100.0 [facility] Comment on above: Order Comment: Speci men Type: BLOOD SPECIMENOrdering Facility: [facility] Address: [address] [place] [address] Performed By: #### 5 8410-2 ####[facility] LABORATORYCLIA [id number] [address] Nucleated RBC (Bld) [#/Vol] 10*3/uL Normal <0.01 [facility] Comment on above: Order Comment: Speci men Type: BLOOD SPECIMENOrdering Facility: [facility] Address: [address] [place] [address] Performed By: #### 5 8410-2 ####[facility] LABORATORYCLIA [id number] [address] Platelet mean volume (Bld) [Entitic vol] 10.4 fL Normal 9.0-12.7 [facility] Comment on above: Order Comment: Speci men Type: BLOOD SPECIMENOrdering Facility: [facility] Address: [address] [place] [address] Performed By: #### 5 8410-2 ####[facility] LABORATORYCLIA [id number] [address] [place] Platelets (Bld) [#/Vol] 337 10*3/uL Normal 150-400 [facility] Comment on above: Order Comment: Speci men Type: BLOOD SPECIMENOrdering Facility: [facility] Address: [address] [place] [address] Performed By: #### 5 8410-2 ####[facility] LABORATORYCLIA [id number] [place] [address] [place] RBC (Bld) [#/Vol] 4.88 10*6/uL Normal 3.90-5.20 [facility] Comment on above: Order Comment: Speci men Type: BLOOD SPECIMENOrdering Facility: [facility] Address: [address] [place] [address] Performed By: #### 5 8410-2 ####[facility] LABORATORYCLIA [id number] [address] WBC (Bld) [#/Vol] 12.10 10*3/uL High 3.70-11.00 [facility] Comment on above: Order Comment: Speci men Type: BLOOD SPECIMENOrdering Facility: [facility] Address: [address] [place] [address] Performed By: #### 5 8410-2 ####[facility] LABORATORYCLIA [id number] [address] [place] Magnesium SerPl-mCncon 03-04 Magnesium [Mass/Vol] 2.3 mg/dL Normal 1.7-2.3 [facility] Comment on above: Order Comment: Speci men Type: BLOOD SPECIMENOrdering Facility: [facility] Address: [address] [place] [address] Performed By: #### 1 9123-9, 53131-7, 47495-3 ####[facility] LABORATORYCLIA [id number] [address] [place] NT-proBNP SerPl-mCncon 03-04 Natriuretic peptide.B prohormone N-Terminal [Mass/Vol] 31390 pg/mL High <450 [facility] Comment on above: Order Comment: Speci men Type: BLOOD SPECIMENOrdering Facility: [facility] Address: [address] [place] [id number] Performed By: #### 1 9123-9, 07945-4, 08195-1 ####[facility] LABORATORYCLIA [id number] [address] THERAPY NTon 03-04-2025 THERAPY NT HNO ID: [id number] Author: PEYTON MARX RRT Service: Respiratory Therapy Author Type: Registered Resp Therapist Type: Therapy (PT/OT/Speech/Resp) Filed: 03/04/2025 23:46 Note Text: RESPIRATORY THERAPY PROGRESS NOTE SERVICE DATE: 03/04/2025 SERVICE TIME: 2336 Overnight Trending Pulse ox. study stopped. Pt is refusing pulse ox on finger. 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 SIGNATURE: Peyton Marx RRT PATIENT NAME: Na Good DATE: March 04, 2025 TIME: 11:45 PM PAGER/CONTACT #: Normal [facility] THERAPY NT HNO ID: [id number] Author: KRISS ZAMORA PT, DPT Service: Physical Therapy Author Type: Physical Therapist Type: Therapy (PT/OT/Speech/Resp) Filed: 03/04/2025 14:04 Note Text: Summary: PT evalaution Physical Therapy Evaluation Summary SERVICE DATE: 03/04/2025 SERVICE TIME: 1344 to 1356 ROOM: [id number] PT 6 Clicks Score: 18 DISCHARGE RECOMMENDATIONS Home PT Recommended Discharge Disposition Comments: at [facility] Anticipated Discharge Needs: Physical Assist at Home, Supervision at Home Physical Assist at Home for: Cleaning, Laundry, Meals, Medication Management, Shopping, Transportation, Self Care, Transfers Supervision at Home due to: Other: See Comment (for safety) ASSESSMENT Response to Therapy Interventions: Good Participation in Activities Pt tolerated mobility well with ww, uses walking sticks (2) normally. Would be appropriate to return home to [facility] with previous level of assist and home PT. PRECAUTIONS Bed/Chair Alarm, Fall Risk, Lines/Tubes/Drains CURRENT HOSPITAL COURSE Patient presents with SOB, admitted for acute on chronic CHF Relevant Past Medical History: ASCVA, CAD, CHF, HTN, insomnia, LV mural thrombus, tremor, cardiomyopathy HOME LIVING Patient Lives With: Facility Care, Other: See Comment Comments: [facility] Assistance Available: 24-Hour Entry To Home: No Stairs Number Of Stairs To Bed/Bath: 0 Tub/Shower Type: WIS with shower chair, has assistance for transfers Laundry: Staff completes Equipment Owned: Other: See Comment, Grab Bars- Shower, Grab Bars- Toilet, Shower Chair (Walking sticks, 4-wheeled walker) PRIOR FUNCTIONAL LEVEL Within Functional Limits, Required Assistance Assistance Required With: Cleaning, Laundry, Meals, Medication Management, Shopping, Self Care, Transportation, Transfers Patient reports pt is independent with ADLs but staff assists with shower transfers and bathing tasks, ambulates with 2 walking sticks, denies falls in the past 6 months, facility completes IADLs including managing meds and pt ambulates to the dining area for lunch/dinner (50 feet), staff brings breakfast to her room, sleeps on a flat bed SUBJECTIVE Pt agrees to PT. Wants to go home. THERAPY DIAGNOSIS Reduced mobility-other TREATMENT INTERVENTIONS Evaluation Skilled Treatment Time (minutes): 12 TRAINING AND EDUCATION PROVIDED Assistive Device Use, Bed Mobility, Benefits of In-Hospital Mobility, Discharge Planning, Gait Pattern, Reduction of Deviations, Positioning, Pre-gait Activities, Role of Physical Therapy, Transfers, Treatment Protocol, Standing Balance THERAPEUTIC SKILLS USED Activity Dosing, Cues for Sequencing/Proper Technique for Activity, Cuing Verbal, Movement Facilitation, Physical Assist FUNCTIONAL STATUS Bed Mobility Supine To Sit: Modified Independent, Additional Information with HOB elevated Sit to Supine: (pt left sitting in chair) Transfers Sit To Stand: Contact Guard Assistance Stand To Sit: Contact Guard Assistance Bed to Chair Gait Contact Guard Assistance Gait Device: Wheeled Walker General Deviations/Observation s: Improper distancing from assistive device, Flexed trunk posture Gait Distance (feet): 50 Stairs (NA) RANGE OF MOTION WFL Except, ROM Limitation Comments ROM Limitation Comments: decreased thoracic and lumbar extnesion, unable to achieve neutral with sitting and standing STRENGTH: age appropriate BALANCE Static Sitting Balance: Normal Dynamic Sitting Balance: Normal Static Standing Balance: Fair Dynamic Standing Balance: Fair GOALS Patient will demonstrate understanding of importance of mobility during hospital stay and resolve all functional needs identified. Transfer Sit to/from Stand with: Stand By Assistance Ambulate with: Contact Guard Assistance Distance: 80 Device: Wheeled Walker Rehab Potential: Fair Fair Rehab Potential Due To: Advanced age ACUTE CARE TREATMENT PLAN PT Frequency: 4 Times Per Week Treatment Interventions: Education, Energy Conservation Training, Joint Mobility, Strengthening, Functional Mobility Training, Balance Training, Neuromuscular Re-education Plan for Next Visit: Bed Mobility, Chair Transfer Training, Standing Balance, Standing Tolerance, Pre-gait Activities, Gait Training SIGNATURE: Kriss Zamora PT, DPT PATIENT NAME: Na Good DATE: March 04, 2025 TIME: 2:04 PM [facility] THERAPY NT HNO ID: [id number] Author: CAROLE HUGHES OT/Amy Service: Occupational Therapy Author Type: Occupational Therapist Type: Therapy (PT/OT/Speech/Resp) Filed: 03/04/2025 11:59 Note Text: Summary: OT Evaluation Occupational Therapy Evaluation Summary SERVICE DATE: 03/04/2025 SERVICE TIME: 1119 to 1152 ROOM: [id number] OT 6 Clicks Score: 18 DISCHARGE RECOMMENDATIONS Home OT Anticipated Discharge Needs: Physical Assist at Home, Supervision at Home Physical Assist at Home for: Cleaning, Laundry, Meals, Medication Management, Shopping, Transportation, Self Care, Transfers Supervision at Home due to: Other: See Comment (for optimal safety) Recommended Discharge Equipment: No equipment needs anticipated ASSESSMENT Response to Therapy Interventions: Good Participation in Activities, On-Track to Achieve Discharge Goals, Low Activity Tolerance Patient presents with generalized weakness, impaired functional endurance, mild SOB however pt denies SOB, SpO2 >93% throughout, pt is extremely [place] with baseline visual impairments, appears to be near baseline with ADLs, eager to return to [facility] PRECAUTIONS Bed/Chair Alarm, Fall Risk, Lines/Tubes/Drains CURRENT HOSPITAL COURSE Patient presents with SOB, admitted for acute on chronic CHF Relevant Past Medical History: ASCVA, CAD, CHF, HTN, insomnia, LV mural thrombus, tremor, cardiomyopathy HOME LIVING Patient Lives With: Facility Care, Other: See Comment Comments: [facility] Assistance Available: 24-Hour Entry To Home: No Stairs Number Of Stairs To Bed/Bath: 0 Tub/Shower Type: WIS with shower chair, has assistance for transfers Laundry: Staff completes Equipment Owned: Other: See Comment, Grab Bars- Shower, Grab Bars- Toilet, Shower Chair (Walking sticks, 4-wheeled walker) PRIOR FUNCTIONAL LEVEL Within Functional Limits, Required Assistance Assistance Required With: Cleaning, Laundry, Meals, Medication Management, Shopping, Self Care, Transportation, Transfers Patient reports pt is independent with [...] this session, RN cleared to work with, pt is eager to return home to [facility] COGNITION Orientation Deficits: (AOx4) Responsiveness: Alert, Awake Follows Commands: 3-step Commands THERAPY DIAGNOSIS Reduced mobility-other, Decreased activities of daily living (ADL), Muscle Weakness (generalized) TREATMENT INTERVENTIONS Evaluation, Self Group Home Management ([id number]) Timed Code Treatment (minutes): 18 Skilled Treatment Time (minutes): 33 TRAINING AND EDUCATION PROVIDED Activity Adaptation/Fitness Club Manager y Strategies, Adaptive Equipment/DME, Bed Mobility, Benefits of In-Hospital Mobility, Cognitive Skills, Command Following, Discharge Planning, Expected Functional Level, Functional Mobility Involving ADLs, Insight into Deficits, Orientation, Memory/Attention, Positioning, Safety/Judgment, Role of Occupational Therapy, Sitting Balance to Improve [place] with ADLs/Self-Care, Standing Balance to Improve [place] with ADLs/Self-Care, Transfer - Sit to Stand THERAPEUTIC SKILLS USED Activity Dosing, Assessment of Tolerance Including Vitals Response to Activity, Cuing Tactile, Cues for Sequencing/Proper Technique for Activity, Cuing Verbal, Cuing Visual, Facilitation of Joint Range of Motion, Management of Critical Lines, Tubes and/or Drains, Movement Facilitation, Muscle Activation Facilitation, Physical Assist, Task Analysis Learning, Teach-Back for Education, Therapeutic Use of Self FUNCTIONAL STATUS Activities of Daily Living Assist Level Additional Information Feeding Independent Grooming Additional Information, Minimal Assistance if standing at the sink/counter, Setup assist to wash face at bed level Bathing Upper Body Stand By Assistance Bathing Lower Body Moderate Assistance, Additional Information requires assistance at baseline Dressing Upper Body Set Up Dressing Lower Body Contact Guard Assistance Toileting Minimal Assistance Mobility Assist Level Additional Information Bed Mobility Scooting: Contact Guard Assistance Supine To Sit: Contact Guard Assistance Sit To Supine: Contact Guard Assistance Sit to Stand Contact Guard Assistance, Additional Information From EOB to FWW level Stand to Sit Contact Guard Assistance, Additional Information cueing for slow controlled descent Bed to Chair Toilet/Commode (more content not included)... Normal [facility] Basic metabolic 2000 panelon 03-03-2025 Anion gap [Moles/Vol] 13 mmol/L Normal -15 [facility] Comment on above: Order Comment: Speci men Type: BLOOD SPECIMENOrdering Facility: [facility] Address: [address] [place] [address] Performed By: #### 2 4321-2, 15571-7 ####[facility] LABORATORYCLIA [id number] [place] [address] [place] Calcium [Mass/Vol] 9.6 mg/dL Normal 8.5-10.2 [facility] Comment on above: Order Comment: Speci men Type: BLOOD SPECIMENOrdering Facility: [facility] Address: [address] [place] [address] Performed By: #### 2 4321-2, ####[facility] LABORATORYCLIA [id number] [place] [address] [place] Chloride [Moles/Vol] 99 mmol/L Normal 98-107 [facility] Comment on above: Order Comment: Speci men Type: BLOOD SPECIMENOrdering Facility: [facility] Address: [address] [place] [address] Performed By: #### 2 4321-2, ####[facility] LABORATORYCLIA [id number] [place] [address] [place] CO2 [Moles/Vol] 25 mmol/L Normal 22-30 [facility] Comment on above: Order Comment: Speci men Type: BLOOD SPECIMENOrdering Facility: [facility] Address: [address] [place] [address] Performed By: #### 2 4321-2, ####[facility] LABORATORYCLIA [id number] [place] [address] [place] Creatinine [Mass/Vol] 1.05 mg/dL High 0.58-0.96 [facility] Comment on above: Order Comment: Speci men Type: BLOOD SPECIMENOrdering Facility: [facility] Address: [address] [place] [id number] Performed By: #### 2 4321-2, ####[facility] LABORATORYCLIA [id number] [address] [place] eGFRcr SerPlBld CKD-EPI 2020 51 mL/min/1.73m??? Low >=60 [facility] Comment on above: Order Comment: Speci men Type: BLOOD SPECIMENOrdering Facility: [facility] Address: [address] [place] [address] Result Comment: Radha mated Glomerular Filtration Rate [...] reflect actual GFR. Performed By: #### 2 432-, ####[facility] LABORATORYCLIA [id number] [place] [address] [place] Glucose [Mass/Vol] 100 mg/dL High 74-99 [facility] Comment on above: Order Comment: Vita florez Type: BLOOD SPECIMENOrdering Facility: [facility] Address: [address] [place] [address] Result Comment: The [place] Diabetes Association (ADA) provides guidance for cutoff [...] Standards of Medical Care in Diabetes 2016, [place] [employer]. Diabetes Care. 2016.39(Suppl 1). Performed By: #### 2 4320-05, ####[facility] LABORATORYCLIA [id number] [place] [address] [place] Potassium [Moles/Vol] 4.1 mmol/L Normal 3.7-5.1 [facility] Comment on above: Order Comment: Vita florez Type: BLOOD SPECIMENOrdering Facility: [facility] Address: [address] [place] [id number] Performed By: #### 2 432-, ####[facility] LABORATORYCLIA [id number] [place] [address] [place] Sodium [Moles/Vol] 137 mmol/L Normal 136-144 [facility] Comment on above: Order Comment: Speci men Type: BLOOD SPECIMENOrdering Facility: [facility] Address: [address] [place] [address] [place] [address] Performed By: #### 2 4321-2, 45242-9 ####[facility] LABORATORYCLIA [id number] [address] [place] Urea nitrogen [Mass/Vol] 30 mg/dL High 7-21 [facility] Comment on above: Order Comment: Speci men Type: BLOOD SPECIMENOrdering Facility: [facility] Address: [address] [place] [address] Performed By: #### 2 432-2, ####BAIRD LABORATORYCLIA [id number] [address] [place] CBC panel Auto (Bld)on 03-03 Erythrocyte distribution width (RBC) [Ratio] 17.2 % High 11.5-15.0 [facility] Comment on above: Order Comment: Speci men Type: BLOOD SPECIMENOrdering Facility: [facility] Address: [address] [place] [address] Performed By: #### 5 8410-2 ####BAIRD LABORATORYCLIA [id number] [address] [place] Hematocrit (Bld) [Volume fraction] 41.9 % Normal 36.0-46.0 [facility] Comment on above: Order Comment: Speci men Type: BLOOD SPECIMENOrdering Facility: [facility] Address: [address] [place] [address] Performed By: #### 5 8410-2 ####BAIRD LABORATORYCLIA [id number] [address] [place] Hemoglobin (Bld) [Mass/Vol] 13.9 g/dL Normal 11.5-15.5 [facility] Comment on above: Order Comment: Speci men Type: BLOOD SPECIMENOrdering Facility: [facility] Address: [address] [place] [address] Performed By: #### 5 8410-2 ####BAIRD LABORATORYCLIA [id number] [address] MCH (RBC) [Entitic mass] 29.3 pg Normal 26.0-34.0 [facility] Comment on above: Order Comment: Speci men Type: BLOOD SPECIMENOrdering Facility: [facility] Address: [address] [place] [address] Performed By: #### 5 8410-2 ####BAIRD LABORATORYCLIA [id number] [address] MCHC (RBC) [Mass/Vol] 33.2 g/dL Normal 30.5-36.0 [facility] Comment on above: Order Comment: Speci men Type: BLOOD SPECIMENOrdering Facility: [facility] Address: [address] [place] [address] Performed By: #### 5 8410-2 ####BAIRD LABORATORYCLIA [id number] [address] MCV (RBC) [Entitic vol] 88.4 fL Normal 80.0-100.0 [facility] Comment on above: Order Comment: Speci men Type: BLOOD SPECIMENOrdering Facility: [facility] Address: [address] [place] [address] Performed By: #### 5 8410-2 ####BAIRD LABORATORYCLIA [id number] [address] Nucleated RBC (Bld) [#/Vol] 10*3/uL Normal <0.01 [facility] Comment on above: Order Comment: Speci men Type: BLOOD SPECIMENOrdering Facility: [facility] Address: [address] [place] [address] Performed By: #### 5 8410-2 ####BAIRD LABORATORYCLIA [id number] [address] Platelet mean volume (Bld) [Entitic vol] 10.9 fL Normal 9.0-12.7 [facility] Comment on above: Order Comment: Speci men Type: BLOOD SPECIMENOrdering Facility: [facility] Address: [address] [place] [address] Performed By: #### 5 8410-2 ####[facility]ER[facility] LABORATORYCLIA [id number] [address] Platelets (Bld) [#/Vol] 366 10*3/uL Normal 150-400 [facility] Comment on above: Order Comment: Speci men Type: BLOOD SPECIMENOrdering Facility: [facility] Address: [address] [place] [address] Performed By: #### 5 8410-2 ####DEER[facility] LABORATORYCLIA [id number] [address] OF [facility] RBC (Bld) [#/Vol] 4.74 10*6/uL Normal 3.90-5.20 [facility] Comment on above: Order Comment: Speci men Type: BLOOD SPECIMENOrdering Facility: [facility] Address: [address] [place] [address] Performed By: #### 5 8410-2 ####DEER[facility] LABORATORYCLIA [id number] [address] WBC (Bld) [#/Vol] 12.19 10*3/uL High 3.70-11.00 [facility] Comment on above: Order Comment: Speci men Type: BLOOD SPECIMENOrdering Facility: [facility] Address: [address] [place] [address] Performed By: #### 5 8410-2 ####DEERFIELD LABORATORYCLIA [id number] [place] [id number] [facility] CONSULTon 03-03-2025 CONSULT HNO ID: [id number] Author: LIDIA ARMENTA APRN.MATERIALS AND CORROSION ENGINEER Service: Cardiovascular Medicine Author Type: Nurse Practitioner Type: Consults Filed: 03/03/2025 09:58 Note Text: Attestation signed by Susie Vyas MD at 03/03/2025 10:41 AM Attending Note I have personally performed a face to face assessment of the patient and have reviewed the EVIE note. I performed a substantive portion of the visit including all aspects of the following. 89 yo female, hx of CMP EF 25% per TTE 12/26/2024 (45% per TTE 2017), with hospitalization January 2025 for CHF decompensation, aortic regurgitation, hypertension, hx of LV thrombus, LBBB, CAD, CHERELLE, EF 25% per TTE 12/26/2024 hyperthyroidism presents with shortness of breath x 7 weeks. Unable to provide a history. She denies chest pain, palpitations, orthopnea, PND, leg swelling, lightheadedness, syncope. She experiences difficulty hearing. In the ER BP 120/83, HR 84, afebrile, SpO2 95% Noted to have bilateral 3+ lower extremity edema, coarse breath sounds I the ER. Labs: Creatinine 1.05, NT-proBNP 42,447, troponin 37--> 37--> 42 ECG: NSR HR 80, PVC, LBBB CXR: Bilateral lower lung infiltrates probably due to pulmonary edema, bilateral pleural effusions TTE 12/26/24: EF 25%, 0.9/1, severely dil LV, moderately reduced RV function, trace to 1+ MR, trace TR, 1-2+ AR, trace NH, mid ascending 3 cm, trivial Pericardial effusion adjacent to LV Telemetry: NSR HR 70s, PVCs, VE couplets O/E: Crackles bilaterally in mid to lower lung martino. 2+ pedal edema to knees bilaterally A/P: HFrEF EF 25% Moderately reduced RV function PVCs Mild to mod AR Hx of LV thrombus on eliquis Recs: Appears volume overloaded on exam. - On lasix 20 mg IV bid. Monitor daily Cr, lytes. Keep K 4-5, Mg >2. - Continue spironolactone, jardiance, metoprolol succinate, enalapril - Medical management was pursued per cardiology note dated 01/28/25. Signature: Susie Vyas MD Date: 03/03/2025 Time: 10:30 AM [facility] [place] [facility] Department of Cardiovascular Medicine SECTION OF [facility] Consultation Note Name: Na Good : 1935 Primary Physician: Alexey Vinson Sr, DO Consulting Physician: Bismark Sales MD Primary Mirror Maker: SERVICE DATE: March 03, 2025 REASON FOR CONSULT CHF HISTORY OF PRESENT ILLNESS Na Good is a 89 year old female with a past medical history of dilated cardiomyopathy, ejection fraction of 25% on echocardiogram in December 2024, hypertension, carotid artery disease, aortic regurgitation, hyperlipidemia, hypothyroidism and insomnia who presented to the emergency department on 03/02/2025 with complaints of shortness of breath. She was recently seen in the office on 02/25/2025. At time of her recent office visit she was noting some intermittent shortness of breath and difficulty sleeping. She has needed orders for additional Lasix at her assisted living but at the time of her recent office visit, she was she is unsure if they have been giving her any. She has been hospitalized once a month for the last 3 months. Chest x-ray was ordered at her recent visit with me which was just reviewed on yesterday evening and also showed some pulmonary congestion. Medication changes were made at her recent office visit due to some episodes of hypotension on a higher dose of enalapril that was prescribed at her most recent discharge. At prior hospitalization, medical management was discussed with family and ischemic evaluation was deferred. Patient seen resting comfortably in bed with no family at bedside. Nursing at bedside giving a.m. meds. She is a difficult historian. Patient reports worsening shortness of breath over the last few days. She remains unsure whether or not she was getting additional p.o. Lasix in the afternoon. Her medications [facility] She is short of breath with minimal exertion and talking. No coughing or wheezing. Her biggest complaint is difficulty with sleep. She was given Remeron last night which she reports was helpful for her. She denies chest pain or palpitations. She is still mildly volume overloaded on exam. Nursing reports good response from IV Lasix but unfortunately unable to measure due to incontinence. ASSESSMENT AND RECOMMENDATIONS Dilated Cardiomyopathy Acute Systolic Heart Failure - NYHA Functional Class II-III - Stage C Heart Failure - NTProBNP on admission 42,447 - CXR on admission > Bilateral lower lungs infiltrates probably due to pulmonary edema. Bilateral pleural effusions. - Most recent echo 12/26/2024: EF 25%. Grade I left ventricular diastolic dysfunction. WMA reported. - GD (more content not included)... Normal [facility] Magnesium SerPl-mCncon 03-03 Magnesium [Mass/Vol] 2.6 mg/dL High 1.7-2.3 [facility] Comment on above: Order Comment: Speci men Type: BLOOD SPECIMENOrdering Facility: [facility] Address: [address] [place] [address] Performed By: #### 2 4321-2, 13907-4 ####DEERFIELD LABORATORYCLIA [id number] [place] [address] [facility] [place] NURSING PROGon 03-03-2025 NURSING PROG HNO ID: [id number] Author: ESCOBAR BRAXTON RN Service: Nursing Author Type: Registered Nurse Type: Nursing Progress Note Filed: 03/03/2025 15:19 Note Text: PATIENT EDUCATION HEART FAILURE PATIENT NAME: Na Good PATIENT LOCATION: [place] [address] [address] SURVIVAL SKILLS: Low Sodium Diet Weight Monitoring and Dry Weight Importance of Follow Up after Discharge Fluid Restriction, if applicable Heart Failure Medications Symptom Management related to heart failure Activity / Physical Exercise Recommendations Smoking cessation counseling if applicable When Patient Should Call Provider Initial visit for CHF education for this pt who was last seen by this office 01/29/25. Pt is awake, sitting up in bed. Friend of the family, Lucero, is at bedside. Pt is [place] and does not have her hearing aids. Friend states she resides at [facility] and gets medications and all meals provided. All of pt's children reside out of state, however, one of her children comes in each month to visit. Heart Failure Zones and handouts relating to survival skills left at bedside. Friend states pt's daughter will be here tomorrow or . Contact information in folder. Electronically Signed By: Escobar Braxton [facility] ALLIED HEALTHon 03-02-2025 ALLIED HEALTH HNO ID: [id number] Author: ALEX VENTURA CT Service: Radiology Author Type: Technologist Type: Allied Health Filed: 03/02/2025 14:37 Note Text: Radiology Service Progress Note PATIENT NAME: Na Good DATE OF SERVICE: March 02, 2025 TIME: 2:37 PM PATIENT IDENTITY VERIFICATION COMPLETED USING TWO (2) IDENTIFIERS: Name and Date of confirmed by patient verbally. FALL SCREENING: Has the patient had 2 falls in the last year or 1 fall with injury or currently using an Ambulatory Assistive Device (Walker, Cane, Wheelchair, Crutches, etc.)? Emergency Room Patient: Screened in ED PATIENT GENDER DATA: Assigned female at . status: : No status: NO. PATIENT RELEVANT IMPLANT DATA REVIEWED: Not Applicable PATIENT PRESENTS WITH AN IMPLANTABLE OR ATTACHED HAND COOPER HELPER: No RADIOLOGY DEPARTMENT: General X-ray: Exam(s) Completed: Chest X-Ray PERIPHERAL IV DATA: Not applicable SIGNED BY: LAUREL Powell March 02, 2025 2:37 PM [facility] ALT SerPl-cCncon 03-02-2025 ALT [Catalytic activity/Vol] 45 U/L High 7-38 [facility] Comment on above: Order Comment: Vita florez Type: BLOOD SPECIMENOrdering Facility: [facility] Address: [address] [place] [address] Performed By: #### 1 920-8, [id number], 1741-09, 3015-06, 1987-08 ####DEERFIELD LABORATORYCLIA [id number] [place] [address] [place] AST SerPl-cCncon 03-02-2025 AST [Catalytic activity/Vol] 52 U/L High 13-35 [facility] Comment on above: Order Comment: Vita florez Type: BLOOD SPECIMENOrdering Facility: [facility] Address: [address] [place] [address] Performed By: #### 1 920-8, [id number], 1746, 3015-06, 1987-08 ####BAIRD LABORATORYCLIA [id number] [place] [address] [place] CBC W Auto Differential pane l (Bld)on 03-02-2025 Basophils (Bld) [#/Vol] 0.06 10*3/uL Normal <0.11 [facility] Comment on above: Order Comment: Speci men Type: BLOOD SPECIMENOrdering Facility: [facility] Address: [address] [place] [address] Performed By: #### 5 7021-8 ####BAIRD LABORATORYCLIA [id number] [place] [address] [place] Basophils/100 WBC (Bld) 0.5 % Normal [facility] Comment on above: Order Comment: Speci men Type: BLOOD SPECIMENOrdering Facility: [facility] Address: [address] [place] [address] Performed By: #### 5 7021-8 ####BAIRD LABORATORYCLIA [id number] [address] [place] Differential cell count method Nom (Bld) Auto Normal [facility] Comment on above: Order Comment: Speci men Type: BLOOD SPECIMENOrdering Facility: [facility] Address: [address] [place] [address] Performed By: #### 5 7021-8 ####BAIRD LABORATORYCLIA [id number] [place] [address] [place] Eosinophils (Bld) [#/Vol] 10*3/uL Normal <0.46 [facility] Comment on above: Order Comment: Speci men Type: BLOOD SPECIMENOrdering Facility: [facility] Address: [address] [place] [address] Performed By: #### 5 7021-8 ####BAIRD LABORATORYCLIA [id number] [address] [place] Eosinophils/100 WBC (Bld) 0.1 % Normal [facility] Comment on above: Order Comment: Speci men Type: BLOOD SPECIMENOrdering Facility: [facility] Address: [address] [place] [address] Performed By: #### 5 7021-8 ####BAIRD LABORATORYCLIA [id number] [place] [address] [place] Erythrocyte distribution width (RBC) [Ratio] 17.2 % High 11.5-15.0 [facility] Comment on above: Order Comment: Speci men Type: BLOOD SPECIMENOrdering Facility: [facility] Address: [address] [place] [address] Performed By: #### 5 7021-8 ####BAIRD LABORATORYCLIA [id number] [place] [address] [place] Hematocrit (Bld) [Volume fraction] 42.3 % Normal 36.0-46.0 [facility] Comment on above: Order Comment: Speci men Type: BLOOD SPECIMENOrdering Facility: [facility] Address: [address] [place] [address] Performed By: #### 5 7021-8 ####BAIRD LABORATORYCLIA [id number] [place] [address] [place] Hemoglobin (Bld) [Mass/Vol] 14.1 g/dL Normal 11.5-15.5 [facility] Comment on above: Order Comment: Speci men Type: BLOOD SPECIMENOrdering Facility: [facility] Address: [address] [place] [address] Performed By: #### 5 7021-8 ####BAIRD LABORATORYCLIA [id number] [address] [place] Immature granulocytes (Bld) [#/Vol] 0.07 10*3/uL Normal <0.10 [facility] Comment on above: Order Comment: Speci men Type: BLOOD SPECIMENOrdering Facility: [facility] Address: [address] [place] [address] Performed By: #### 5 7021-8 ####BAIRD LABORATORYCLIA [id number] [address] [place] Immature granulocytes/100 WBC (Bld) 0.6 % Normal [facility] Comment on above: Order Comment: Speci men Type: BLOOD SPECIMENOrdering Facility: [facility] Address: [address] [place] [address] Performed By: #### 5 7021-8 ####BAIRD LABORATORYCLIA [id number] [address] [place] Lymphocytes (Bld) [#/Vol] 1.26 10*3/uL Normal 1.00-4.00 [facility] Comment on above: Order Comment: Speci men Type: BLOOD SPECIMENOrdering Facility: [facility] Address: [address] [place] [address] Performed By: #### 5 7021-8 ####BAIRD LABORATORYCLIA [id number] [address] Lymphocytes/100 WBC (Bld) 10.8 % Normal [facility] Comment on above: Order Comment: Speci men Type: BLOOD SPECIMENOrdering Facility: [facility] Address: [address] [place] [address] Performed By: #### 5 7021-8 ####BAIRD LABORATORYCLIA [id number] [address] MCH (RBC) [Entitic mass] 29.6 pg Normal 26.0-34.0 [facility] Comment on above: Order Comment: Speci men Type: BLOOD SPECIMENOrdering Facility: [facility] Address: [address] [place] [address] Performed By: #### 5 7021-8 ####BAIRD LABORATORYCLIA [id number] [address] MCHC (RBC) [Mass/Vol] 33.3 g/dL Normal 30.5-36.0 [facility] Comment on above: Order Comment: Speci men Type: BLOOD SPECIMENOrdering Facility: [facility] Address: [address] [place] [address] Performed By: #### 5 7021-8 ####BAIRD LABORATORYCLIA [id number] [address] MCV (RBC) [Entitic vol] 88.9 fL Normal 80.0-100.0 [facility] Comment on above: Order Comment: Speci men Type: BLOOD SPECIMENOrdering Facility: [facility] Address: [address] [place] [address] Performed By: #### 5 7021-8 ####BAIRD LABORATORYCLIA [id number] [place] [address] [place] Monocytes (Bld) [#/Vol] 1.08 10*3/uL High <0.87 [facility] Comment on above: Order Comment: Speci men Type: BLOOD SPECIMENOrdering Facility: [facility] Address: [address] [place] [address] Performed By: #### 5 7021-8 ####BAIRD LABORATORYCLIA [id number] [place] [id number] [place] Monocytes/100 WBC (Bld) 9.3 % Normal [facility] Comment on above: Order Comment: Speci men Type: BLOOD SPECIMENOrdering Facility: [facility] Address: [address] [place] [address] Performed By: #### 5 7021-8 ####BAIRD LABORATORYCLIA [id number] [place] [address] [place] Neutrophils (Bld) [#/Vol] 9.14 10*3/uL High 1.45-7.50 [facility] Comment on above: Order Comment: Speci men Type: BLOOD SPECIMENOrdering Facility: [facility] Address: [address] [place] [address] Performed By: #### 5 7021-8 ####BAIRD LABORATORYCLIA [id number] [place] [id number] [place] Neutrophils/100 WBC (Bld) 78.7 % Normal [facility] Comment on above: Order Comment: Speci men Type: BLOOD SPECIMENOrdering Facility: [facility] Address: [address] [place] [address] Performed By: #### 5 7021-8 ####BAIRD LABORATORYCLIA [id number] [place] [id number] [place] Nucleated RBC (Bld) [#/Vol] 10*3/uL Normal <0.01 [facility] Comment on above: Order Comment: Speci men Type: BLOOD SPECIMENOrdering Facility: [facility] Address: [address] [place] [address] Performed By: #### 5 7021-8 ####BAIRD LABORATORYCLIA [id number] [place] [id number] [place] Nucleated RBC/100 WBC (Bld) [Ratio] 0.0 /100 WBC Normal [facility] Comment on above: Order Comment: Speci men Type: BLOOD SPECIMENOrdering Facility: [facility] Address: [address] [place] [address] Performed By: #### 5 7021-8 ####BAIRD LABORATORYCLIA [id number] [place] [address] [place] Platelet mean volume (Bld) [Entitic vol] 10.8 fL Normal 9.0-12.7 [facility] Comment on above: Order Comment: Speci men Type: BLOOD SPECIMENOrdering Facility: [facility] Address: [address] [place] [address] Performed By: #### 5 7021-8 ####BAIRD LABORATORYCLIA [id number] [address] [place] Platelets (Bld) [#/Vol] 380 10*3/uL Normal 150-400 [facility] Comment on above: Order Comment: Speci men Type: BLOOD SPECIMENOrdering Facility: [facility] Address: [address] [place] [address] Performed By: #### 5 7021-8 ####BAIRD LABORATORYCLIA [id number] [place] [address] [place] RBC (Bld) [#/Vol] 4.76 10*6/uL Normal 3.90-5.20 [facility] Comment on above: Order Comment: Speci men Type: BLOOD SPECIMENOrdering Facility: [facility] Address: [address] [place] [address] Performed By: #### 5 7021-8 ####BAIRD LABORATORYCLIA [id number] [address] [place] WBC (Bld) [#/Vol] 11.62 10*3/uL High 3.70-11.00 [facility] Comment on above: Order Comment: Speci men Type: BLOOD SPECIMENOrdering Facility: [facility] Address: [address] [place] [address] Performed By: #### 5 7021-8 ####BAIRD LABORATORYCLIA [id number] [address] CRP SerPl-mCncon 03-02-2025 CRP [Mass/Vol] 0.4 mg/dL Normal <0.9 [facility] Comment on above: Order Comment: Speci men Type: BLOOD SPECIMENOrdering Facility: [facility] Address: [address] [place] [address] Performed By: #### 1 920-8, TVA9262, 1742-6, 3016-3, 1987- ####BAIRD LABORATORYCLIA [id number] [address] Comprehensive metabolic 2000 panelon 03-02-2025 Albumin [Mass/Vol] 4.2 g/dL Normal 3.9-4.9 [facility] Comment on above: Order Comment: Speci men Type: BLOOD SPECIMENOrdering Facility: [facility] Address: [address] [place] [address] Performed By: #### 2 4323-8, 40175-3, 34901-2 ####BAIRD LABORATORYCLIA [id number] [address] ALP [Catalytic activity/Vol] 49 U/L Normal 34-123 [facility] Comment on above: Order Comment: Speci men Type: BLOOD SPECIMENOrdering Facility: [facility] Address: [address] [place] [address] Performed By: #### 2 4323-8, 10396-1, 76203-3 ####BAIRD LABORATORYCLIA [id number] [address] ALT [Catalytic activity/Vol] Normal [facility] Comment on above: Order Comment: Speci men Type: BLOOD SPECIMENOrdering Facility: [facility] Address: [address] [place] [address] Result Comment: Unab le to assay due to interference from hemolysis. Suggest reorder as clinically indicated. Performed By: #### 2 4323-8, 81812-7, 24123-4 ####[facility]ER[facility] LABORATORYCLIA [id number] [place] [address] [place] Anion gap [Moles/Vol] 13 mmol/L Normal 8-15 [facility] Comment on above: Order Comment: Speci men Type: BLOOD SPECIMENOrdering Facility: [facility] Address: [address] [place] [address] Performed By: #### 2 4323-8, 55414-5, 24486-7 ####DEER[facility] LABORATORYCLIA [id number] [place] [id number] [place] AST [Catalytic activity/Vol] Normal [facility] Comment on above: Order Comment: Speci men Type: BLOOD SPECIMENOrdering Facility: [facility] Address: [address] [place] [address] Result Comment: Unab le to assay due to interference from hemolysis. Suggest reorder as clinically indicated. Performed By: #### 2 4323-8, , 02535-6 ####[facility] LABORATORYCLIA [id number] [place] [address] [place] Bilirubin [Mass/Vol] 0.8 mg/dL Normal 0.2-1.3 [facility] Comment on above: Order Comment: Speci men Type: BLOOD SPECIMENOrdering Facility: [facility] Address: [address] [place] [address] Performed By: #### 2 4323-8, 26032-7, 39673-1 ####DEER[facility] LABORATORYCLIA [id number] [place] [id number] [place] Calcium [Mass/Vol] 9.5 mg/dL Normal 8.5-10.2 [facility] Comment on above: Order Comment: Speci men Type: BLOOD SPECIMENOrdering Facility: [facility] Address: [address] [place] [address] Performed By: #### 2 4323-8, 45109-9, 19205-3 ####[facility]ER[facility] LABORATORYCLIA [id number] [place] [address] [place] Chloride [Moles/Vol] 98 mmol/L Normal 98-107 [facility] Comment on above: Order Comment: Speci men Type: BLOOD SPECIMENOrdering Facility: [facility] Address: [address] [place] [address] Performed By: #### 2 4323-8, 09082-2, 49577-0 ####[facility] LABORATORYCLIA [id number] [place] [address] [place] CO2 [Moles/Vol] 22 mmol/L Normal 22-30 [facility] Comment on above: Order Comment: Speci men Type: BLOOD SPECIMENOrdering Facility: [facility] Address: [address] [place] [address] Performed By: #### 2 4323-8, , 87719-7 ####[facility] LABORATORYCLIA [id number] [address] STATES OF [facility] Creatinine [Mass/Vol] 0.89 mg/dL Normal 0.58-0.96 [facility] Comment on above: Order Comment: Speci men Type: BLOOD SPECIMENOrdering Facility: [facility] Address: [address] [place] [address] Performed By: #### 2 4323-8, 04811-8, 51758-2 ####[facility] LABORATORYCLIA [id number] [address] eGFRcr SerPlBld CKD-EPI 2020 62 mL/min/1.73m??? Normal >=60 [facility] Comment on above: Order Comment: Speci men Type: BLOOD SPECIMENOrdering Facility: [facility] Address: [address] [place] [address] Result Comment: Radha mated Glomerular Filtration Rate [...] reflect actual GFR. Performed By: #### 2 4323-8, 96482-2, 37487-9 ####BA[facility] LABORATORYCLIA [id number] [place] [address] [place] Glucose [Mass/Vol] 106 mg/dL High 74-99 [facility] Comment on above: Order Comment: Vita florez Type: BLOOD SPECIMENOrdering Facility: [facility] Address: [address] [place] [address] Result Comment: The [place] Diabetes Association (ADA) provides guidance for cutoff [...] Standards of Medical Care in Diabetes 2016, [place] [employer]. Diabetes Care. 2016.39(Suppl 1). Performed By: #### 2 4323-8, 75849-0, 71344-9 ####[facility] LABORATORYCLIA [id number] [place] [id number] [place] Potassium [Moles/Vol] 5.2 mmol/L High 3.7-5.1 [facility] Comment on above: Order Comment: Vita florez Type: BLOOD SPECIMENOrdering Facility: [facility] Address: [address] [place] [address] Performed By: #### 2 4323-8, 65838-3, 94903-5 ####DEER[facility] LABORATORYCLIA [id number] [place] [id number] [place] Protein [Mass/Vol] 6.8 g/dL Normal 6.3-8.0 [facility] Comment on above: Order Comment: Vita florez Type: BLOOD SPECIMENOrdering Facility: [facility] Address: [address] [place] [address] Performed By: #### 2 4323-8, 15120-8, 72231-9 ####BAIRD LABORATORYCLIA [id number] [place] [id number] [place] Sodium [Moles/Vol] 133 mmol/L Low 136-144 [facility] Comment on above: Order Comment: Speci men Type: BLOOD SPECIMENOrdering Facility: [facility] Address: [address] [place] [address] Performed By: #### 2 4323-8, 67294-6, 68342-0 ####[facility]ER[facility] LABORATORYCLIA [id number] [place] [address] [place] STATES [facility] Urea nitrogen [Mass/Vol] 32 mg/dL High 7-21 [facility] Comment on above: Order Comment: Speci men Type: BLOOD SPECIMENOrdering Facility: [facility] Address: [address] [place] [id number] Performed By: #### 2 4323-8, 45891-5, 06931-4 ####[facility]ER[facility] LABORATORYCLIA [id number] [address] [place] [id number] 03-02-2025 ECG01 Ventricular Rate : 8 0 BPM Atrial Rate : 80 BPM P-R Interval : 162 ms QRS Duration : 136 ms Q-T Interval : 416 ms QTC Calculation(Bazett) : 479 ms Calculated P [place] : -15 degrees Calculated R [place] : -57 degrees Calculated T [place] : 121 degrees SINUS RHYTHM WITH OCCASIONAL PREMATURE VENTRICULAR COMPLEXES LEFT AXIS DEVIATION LEFT VENTRICULAR HYPERTROPHY WITH QRS WIDENING AND REPOLARIZATION ABNORMALITY ( R in aVL , Db product , Romhilt-Weir ) POSSIBLE LATERAL INFARCT , AGE UNDETERMINED ABNORMAL ECG No Stemi Confirmed by BEATRIS GILLILAND DO ([id number]) on 03/02/2025 4:13:22 PM NAME : NA GOOD PID : [id number] : 1935 Gender : Female Race : ORD : Procedure Date : Mar 02 2025 14:54:51 Edit Date : Mar 02 2025 16:13:24 Diagnosis: SINUS RHYTHM WITH OCCASIONAL PREMATURE VENTRICULAR COMPLEXES LEFT AXIS DEVIATION LEFT VENTRICULAR HYPERTROPHY WITH QRS WIDENING AND REPOLARIZATION ABNORMALITY ( R in aVL , Db product , Romhilt-Weir ) POSSIBLE LATERAL INFARCT , AGE UNDETERMINED ABNORMAL ECG No Stemi Confirmed by BEATRIS GILLILAND DO ([id number]) on 03/02/2025 4:13:22 PM Test Reason : Location : 1 : ER ED Overread By : BEATRIS GILLILAND DO Edited By : BEATRIS GILLILAND DO Referred By : , Acquired by : EVIN [facility] ED NOTEon 03-02-2025 ED NOTE HNO ID: [id number] Author: MELODIE CLEARY, LAKESHIA Service: Nursing Author Type: Registered Nurse Type: ED Notes Filed: 03/02/2025 14:03 Note Text: MD @ BEDSIDE for EVAL [facility] ED NOTE HNO ID: [id number] Author: KAMRON CR, LAKESHIA Service: Behavioral Health Author Type: Registered Nurse Type: ED Notes Filed: 03/02/2025 13:42 Note Text: pt dropped off from assisted living for Shortness of Breath pt states has been seen 3 times for same complaint [facility] ED PROV NOTEon 03-02-2025 ED PROV NOTE HNO ID: [id number] Author: BEATRIS GILLILAND DO Service: Emergency Medicine Author Type: Physician Type: ED Provider Notes Filed: 03/02/2025 22:33 Note Text: ED Provider Note Patient Name: Na Good : 1935 SERVICE DATE: 03/02/25 History Patient presents with: Shortness of Breath HPI 89 year old female PMHx CHF, dilated cardiomyopathy presents today for shortness of breath. Patient states that she has been intermittently short of breath over the last 7 weeks. States that she thinks it is got worse in the last few days. Does endorse bilateral lower extremity VICTOR MANUEL. Is unsure of any weight gain. Does not think she is having dyspnea with exertion. Denies any chest pain, focal weakness or numbness, headache, vision changes. Denies any nausea, vomiting, fever, chills, dysuria, hematuria, melena, hematochezia. PAST MEDICAL HISTORY Diagnosis Date ASCVD (arteriosclerotic [...] Negative for cough. Cardiovascular: Negative for chest pain and leg swelling. Gastrointestinal: Negative for abdominal pain, diarrhea, nausea and vomiting. Genitourinary: Negative for dysuria. Physical Exam Vitals BP Pulse Temp Temp src Resp SpO2 Weight Height 03/02/25 1341 03/02/25 1341 03/02/25 1341 03/02/25 1341 03/02/25 1341 03/02/25 1341 03/02/25 2126 03/02/252125 120/83 84 36.6 ?C (97.8 ?F) Temporal 18 95 % 54.5 kg (120 lb 2.4 oz) 1.575 m (5' 2") Physical Exam Constitutional: General: She is not [...] sounds: No wheezing. Comments: Coarse breath sounds bilaterally. No accessory muscle use. Mild tachypnea. Speaking full sentences, no conversational dyspnea. Abdominal: Palpations: Abdomen is soft. Tenderness: There is no abdominal tenderness. There is no guarding. Musculoskeletal: Right lower leg: Edema present. Left lower leg: Edema present. Comments: +3 edema bilaterally Skin: Capillary Refill: Capillary refill takes less than 2 seconds. Neurological: Mental Status: She is alert. Comments: Alert, answer questions appropriately. No slurred speech, no facial droop. Palate elevate symmetrically. Strength 5/5 BUE, BLE. Dull sensation intact BUE, BLE Diagnostic Testing ED Labs Ordered and Reviewed COMPREHENSIVE METABOLIC PANEL - Abnormal; Notable for the following components: Result Value Ref Range Glucose 106 (*) 74 - 99 mg/dL BUN 32 (*) 7 - 21 mg/dL Sodium 133 (*) 136 - 144 mmol/L Potassium 5.2 (*) 3.7 - 5.1 mmol/L All other components within normal limits MAGNESIUM - Abnormal; Notable for the following components: Magnesium 2.5 (*) 1.7 - 2.3 mg/dL All other components within normal limits HIGH SENSITIVITY TROPONIN T (INITIAL) - Abnormal; Notable for the following components: EMMANUEL High Sensitivity 37 (*) <12 ng/L All other components within normal limits COMPLETE BLOOD COUNT AND DIFFERENTIAL - Abnormal; Notable for the following components: WBC 11.62 (*) 3.70 - 11.00 k/uL RDW-CV 17.2 (*) 11.5 - 15.0 % Abs Neut 9.14 (*) 1.45 - 7.50 k/uL Abs [place] 1.08 (*) <0.87 k/uL All other components within normal limits NT PRO BNP - Abnormal; Notable for the following components: NT Pro BNP 42,447 (*) <450 pg/mL All other components within normal limits ALANINE AMINOTRANSFERASE / SGPT - Abnormal; Notable for the following components: ALT 45 (*) 7 - 38 U/L All other components within normal limits ASPARTATE AMINOTRANSFERASE/SGOT - Abnormal; Notable for the following components: AST 52 (*) 13 - 35 U/L All other components within normal limits HIGH SENSITIVITY TROPONIN T (SECOND) - Abnormal; Notable for the following components: EMMANUEL High Sensitivity 37 (*) <12 ng/L All (more content not included)... Normal [facility] HIGH SENSITIVITY TROPONIN T (INITIAL)on 03-02-2025 Troponin T.cardiac High sensitivity method [Mass/Vol] 37 ng/L High <12 [facility] Comment on above: Order Comment: Vita florez Type: BLOOD SPECIMENOrdering Facility: [facility] Address: [address] [place] [address] Performed By: #### 1 920-8, [id number], 1742-6, 3016-3, 1987- ####[facility] LABORATORYCLIA [id number] [address] OF [facility] HIGH SENSITIVITY TROPONIN T (SECOND)on 03-02-2025 Troponin T.cardiac High sensitivity method [Mass/Vol] 37 ng/L High <12 [facility] Comment on above: Order Comment: Vita florez Type: BLOOD SPECIMEN [facility] Address: [address] [place] [id number] Performed By: #### 2 4321-2 #### [facility] CLIA [id number] [address] [place] [id number] [facility] HIGH SENSITIVITY TROPONIN T (THIRD) 3 HRS AFTER INITIALon 03-02-2025 Troponin T.cardiac High sensitivity method [Mass/Vol] 42 ng/L High <12 [facility] Comment on above: Order Comment: Speci men Type: BLOOD SPECIMENOrdering Facility: [facility] Address: [address] [place] [id number] Performed By: #### L [id number] ####[facility] LABORATORYCLIA [id number] [place] [address] [facility] [place] HISTORY PHYSICALon HISTORY PHYSICAL HNO ID: [id number] Author: BISMARK SALES MD Service: General Internal Medicine Author Type: Physician Type: H&P Filed: 03/02/2025 21:00 Note Text: HISTORY AND PHYSICAL EXAMINATION SERVICE DATE: 03/02/2025 SERVICE TIME: 5:00 PM PRIMARY CARE PHYSICIAN: Alexey Vinson Sr, DO ASSESSMENT AND PLAN Acute on chronic CHF exacerbation with combined systolic and diastolic dysfunction - LVEF ~25% and grade 1 diastolic dysfunction noted on recent Echo. IV lasix. Cardiology consult. 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 She was hospitalized here last month and the month before with CHF exacerbation. She was sent to the ER today with c/o worsening SOSA. Evaluation in the ER was significant for mild leukocytosis, mildly elevated but stable HS troponins, very high NT proBNP higher than previous. CXR reported pulmonary congestion and B/L pleural effusion. BP mildly high, NH normal and pulse oxymetry on RA in mid-high 90's. Pt denies any cough or wheeze. She has been given IV Lasix and being admitted to a medical bed with telemetry. PAST MEDICAL HISTORY: PAST MEDICAL HISTORY Diagnosis Date ASCVD (arteriosclerotic cardiovascular disease) CAD (coronary artery disease) CHF (congestive heart failure) (HCC) Disorder of bone and cartilage, unspecified HTN (hypertension) Insomnia LV (left ventricular) mural thrombus Nonischemic cardiomyopathy (HCC) Other primary cardiomyopathies Cardiomyopathy Thyrotoxicosis without mention of goiter or other cause, without mention of thyrotoxic crisis or storm Hyperthyroidism Tremor PAST SURGICAL HISTORY: PAST SURGICAL HISTORY Procedure Laterality Date APPENDECTOMY LIG/TRNSXJ FLP TUBE ABDL/VAG APPR UNI/BI Tubal ligation FAMILY HISTORY: FAMILY HISTORY Problem Relation Age of Onset Hypertension Father SOCIAL HISTORY: SOCIAL HISTORY[1] MEDICATIONS: Prior to Admission Medications Prior to Admission Medications Prescriptions Last Dose Informant Patient Reported? Taking? ALDACTONE 25 mg tablet Yes No Sig: Take 12.5 mg by mouth once daily. CALCIUM + D 600MG TABLET No No Sig: Take one(1) tablet two(2) times daily. Cholecalciferol, Vitamin D3, 25 mcg (1,000 unit) cap Yes No Sig: Take 1,000 Units by mouth once daily. JARDIANCE 10 mg tablet Yes No Sig: Take 10 mg by mouth daily with breakfast. MULTIVITAMIN TABLET No No Sig: Take one(1) tablet daily. apixaban (ELIQUIS) 2.5 mg tab(s) Yes No Sig: Take 2.5 mg by mouth two times a day. enalapril (VASOTEC) 2.5 mg tablet No No Sig: Take 1 tablet by mouth two times a day. furosemide (LASIX) 20 mg tablet No No Sig: Take 1 tablet by mouth once daily. May take an additional 20 mg as needed for weight gain, increased Shortness of Breath, or increased edema. melatonin 2.5 mg chew Yes No Sig: Take 2.5 mg by mouth daily at bedtime. metoprolol succinate ER (TOPROL XL) 25 mg 24 hr tablet No No Sig: Take 1 tablet by mouth two times a day. mirtazapine (REMERON) 30 mg tablet Yes No Sig: Take 30 mg by mouth daily at bedtime. rosuvastatin (CRESTOR) 5 mg tablet Yes No Sig: Take 5 mg by mouth once daily. senna-docusate (SENEXON-S) 8.6-50 mg per tablet Yes No Sig: Take 1 tablet by mouth once daily as needed for constipation. vit A/vit C/vit E/zinc/copper (PRESERVISION AREDS PO) Yes No Sig: Take by mouth. Facility-Administered Medications: None CURRENT ALLERGIES: ALLERGIES Allergen Reactions Cortisone facial swelling after IM injection COMPLETE REVIEW OF SYSTEMS: GENERAL: No weight loss, malaise or fevers HEENT: No changes in hearing or vision, no nose bleeds or other nasal problems NECK: Negative for lumps, goiter, pain and significant neck swelling RESPIRATORY: No cough or wheeze CARDIOVASCULAR: No chest pain, or palpitation GI: No nausea, vomiting, or diarrhea : Negative for dysuria MUSCULOSKELETAL: see HPI SKIN: Negative for lesions, rash, and itching HEMATOLOGY/LYMPHOLOGY: Negative for prolonged bleeding, bruising easily or swollen nodes ENDOCRINE: See HPI NEURO: see HPI OBJECTIVE PHYSICAL EXAM: Patient Vitals for the past 24 hrs: BP Temp Temp src Pulse Resp SpO2 03/02/25 1500 156/89 -- -- 83 18 96 % 03/02/25 1445 146/82 -- -- 75 18 96 % 03/02/25 1430 155/77 -- -- 79 18 95 % 03/02/25 1415 142/85 -- -- 84 18 97 % 03/02/25 1400 142/77 -- -- 83 18 95 % 03/02/25 1356 145/77 -- -- 87 18 96 % 03/02/25 1345 -- -- -- -- 18 -- 03/02/25 1341 120/83 36.6 ?C (97.8 ?F) Temporal 84 18 95 % There is no height or weight on file to calculate BMI. GENERAL: Alert, No Distress HEAD/SINUSES: No significant findings EYES: EOMI, JUAN (more content not included)... Normal [facility] Magnesium [Mass/Vol] 2.5 mg/dL High 1.7-2.3 [facility] Comment on above: Order Comment: Speci men Type: BLOOD SPECIMENOrdering Facility: [facility] Address: [address] [place] [address] Performed By: #### 2 4323-8, 17271-3, 87792-5 ####[facility] LABORATORYCLIA [id number] [address] NT-proBNP SerPl-mCncon 03-02 Natriuretic peptide.B prohormone N-Terminal [Mass/Vol] 51107 pg/mL High <450 [facility] Comment on above: Order Comment: Speci men Type: BLOOD SPECIMENOrdering Facility: [facility] Address: [address] [place] [address] Performed By: #### 2 4323-8, 54080-6, 01951-3 ####[facility] LABORATORYCLIA [id number] [address] [place] TSH SerPl-aCncon 03-02-2025 TSH Qn 0.498 m[IU]/L Normal 0.270-4.200 [facility] Comment on above: Order Comment: Speci men Type: BLOOD SPECIMENOrdering Facility: [facility] Address: [address] [place] [address] Performed By: #### 1 920-8, [id number], 1742-6, 3016-3, 1988- ####[facility] LABORATORYCLIA [id number] [address] [place] XR CHEST 1V FRONTAL PORTon 1 05-02-2024 XR CHEST 1V FRONTAL PORT * * *Final Report* * * DATE OF EXAM: Mar 02 2025 2:36PM MDX [id number] - XR CHEST 1V FRONTAL PORT / PROCEDURE REASON: Shortness of breath * * * * Physician Interpretation * * * * EXAMINATION: CHEST RADIOGRAPH (PORTABLE SINGLE VIEW AP) Exam Date/Time: 03/02/2025 2:36 PM CLINICAL HISTORY: Shortness of breath MQ: XCPR_5 Comparison: January 27, 2025. RESULT: Lines, tubes, and devices: None. Lungs and pleura: Bilateral lower lungs infiltrates probably due to pulmonary edema. Bilateral pleural effusions. Lobe which is documented/reactive Cardiomediastinal silhouette: Stable cardiomediastinal silhouette. Other: The visualized bony thorax appears unremarkable. IMPRESSION: Persistent bilateral parenchymal and pleural changes as described above. A follow-up exam with chest PA and lateral views is recommended. Substitute School Nurse: KONSTANTIN Transcribe Date/Time: Mar 02 2025 3:11P Dictated by : SANDHYA KHOURY MD This examination was interpreted and the report reviewed and electronically signed by: SANDHYA KHOURY MD on Mar 02 2025 3:16PM EST [id number] [facility] Urine Cultureon 02-28-2025 URC UNKNOWN METHOD OF COLLECTION Organism is too fastidious for routine susceptibility studies. Aerococcus urinae [place] Count 50,000-80,000 Normal [facility] Comment on above: Performed By: #### L 500.2500, L100.0500 #### [facility] [address] [place], [place], [address] Keely 02-27-2025 LELAND Telephone (KRISTA) NA GOOD ([id number]) 1935 F Date Time Provider Department 02/27/25 LIDIA ARMENTA During your visit today, we recorded the following information about you: Merritt Salguero 02/27/2025 9:25 AM Signed Lidia Armenta APRN.[facility] Clerical Pool Can you please send my office note to her AL? OBSTETRIC ANAESTHETIST there is Cameron (I forget his last name). I put his last name in my note. NO card concerns at visit with me. Biggest concern was sleep. Thanks Merritt Donovan 02/27/2025 9:25 AM Signed Unable to locate Cameron Brown NP contact information. Called patient's daughter to get name and phone number of patient's assisted living facility. Once patient's daughter calls back with information, will send note to facility. Thank you Merritt Salguero 02/27/2025 10:24 AM Signed Patient's assisted living facility called regarding another encounter. They provided their fax number: [phone]. Faxed [facility] note to [facility]. Allergies As of Date: 02/27/2025 Noted Allergy Reaction CORTISONE 03/17/2002 Comments: facial swelling after IM injection Date Reviewed: 02/25/2025 Reviewed by: Randell Moreno LPN - Fully Assessed Reason for Visit: Patient Update [1234] Prescriptions as of 02/27/2025 - vit A/vit C/vit E/zinc/copper (PRESERVISION AREDS PO) Take by mouth. - enalapril (VASOTEC) 2.5 mg tablet Take 1 tablet by mouth two times a day. - metoprolol succinate ER (TOPROL XL) 25 mg 24 hr tablet Take 1 tablet by mouth two times a day. - furosemide (LASIX) 20 mg tablet Take 1 tablet by mouth once daily. May take an additional 20 mg as needed for weight gain, increased Shortness of Breath, or increased edema. - apixaban (ELIQUIS) 2.5 mg tab(s) Take 2.5 mg by mouth two times a day. - JARDIANCE 10 mg tablet Take 10 mg by mouth daily with breakfast. - mirtazapine (REMERON) 30 mg tablet Take 30 mg by mouth daily at bedtime. - rosuvastatin (CRESTOR) 5 mg tablet Take 5 mg by mouth once daily. - ALDACTONE 25 mg tablet Take 12.5 mg by mouth once daily. - melatonin 2.5 mg chew Take 2.5 mg by mouth daily at bedtime. - senna-docusate (SENEXON-S) 8.6-50 mg per tablet Take 1 tablet by mouth once daily as needed for constipation. - Cholecalciferol, Vitamin D3, 25 mcg (1,000 unit) cap Take 1,000 Units by mouth once daily. - MULTIVITAMIN TABLET Take one(1) tablet daily. - CALCIUM + D 600MG TABLET Take one(1) tablet two(2) times daily. Problem List As Of Date 02/27/2025 Noted Resolved CARDIOMYOPATHY [I42.8] 03/17/2002 ABNORMAL THYROID FUNCTION TEST [E07.89] 03/17/2002 SIMPLE GOITER [E04.0] 03/17/2002 OSTEOPENIA [M89.9, M94.9] 03/17/2002 THYROTOX NOS NO CRISIS [E05.90] 10/05/2003 Acute on chronic congestive heart failure (HCC)*12/24/2024 Shortness of breath [R06.02] 12/24/2024 Acute on chronic congestive heart failure, unsp*12/24/2024 Acute on chronic combined systolic and diastoli*12/26/2024 Dilated cardiomyopathy (HCC) [I42.0] 12/27/2024 CHF (congestive heart failure), NYHA class I, a*01/27/2025 Chest pain [R07.9] 01/27/2025 HFrEF (heart failure with reduced ejection frac*01/27/2025 Difficulty sleeping [G47.9] 01/27/2025 Encounter Status:Closed by MERRITT SALGUERO on 02/27/25 [facility] Keely 02-26-2025 VERONICAN Telephone (KRISTA) NA GOOD ([id number]) 1935 F Date Time Provider Department 02/26/25 LIDIA ARMENTA During your visit today, we recorded the following information about you: Randell Moreno LPN 02/26/2025 7:34 AM Signed [facility] Results received via fax. Copy placed in PSS basket for scanning. Copy placed on desk of Sisi Armenta for review. Shamir 02/25/26 Sola Meadows 02/26/2025 8:04 AM Signed Scan on 02/26/2025 8:03 AM by Sola Benjamin: [facility] X-Ray Results Merritt Salguero 02/27/2025 10:22 AM Signed Patient's assisted living calling motel front desk clerk stating they would like Lidia to sign the xray results and fax it back once she reviews them. Also would like to inform Lidia the patient is having trouble breathing while laying down, is okay again once sat up Juan Parsons RN 03/02/2025 3:55 PM Signed Sent signed chest xray to Confirmation received. Allergies As of Date: 02/26/2025 Noted Allergy Reaction CORTISONE 03/17/2002 Comments: facial swelling after IM injection Date Reviewed: 02/25/2025 Reviewed by: Randell Moreno LPN - Fully Assessed Reason for Visit: Results [95] Cmt: [facility] X-Ray Results Prescriptions as of 03/02/2025 - vit A/vit C/vit E/zinc/copper (PRESERVISION AREDS PO) Take by mouth. - enalapril (VASOTEC) 2.5 mg tablet Take 1 tablet by mouth two times a day. - metoprolol succinate ER (TOPROL XL) 25 mg 24 hr tablet Take 1 tablet by mouth two times a day. - furosemide (LASIX) 20 mg tablet Take 1 tablet by mouth once daily. May take an additional 20 mg as needed for weight gain, increased Shortness of Breath, or increased edema. - apixaban (ELIQUIS) 2.5 mg tab(s) Take 2.5 mg by mouth two times a day. - JARDIANCE 10 mg tablet Take 10 mg by mouth daily with breakfast. - mirtazapine (REMERON) 30 mg tablet Take 30 mg by mouth daily at bedtime. - rosuvastatin (CRESTOR) 5 mg tablet Take 5 mg by mouth once daily. - ALDACTONE 25 mg tablet Take 12.5 mg by mouth once daily. - melatonin 2.5 mg chew Take 2.5 mg by mouth daily at bedtime. - senna-docusate (SENEXON-S) 8.6-50 mg per tablet Take 1 tablet by mouth once daily as needed for constipation. - Cholecalciferol, Vitamin D3, 25 mcg (1,000 unit) cap Take 1,000 Units by mouth once daily. - MULTIVITAMIN TABLET Take one(1) tablet daily. - CALCIUM + D 600MG TABLET Take one(1) tablet two(2) times daily. Facility-Administered Medications as of 03/02/2025 - furosemide 20 mg injection (LASIX) Problem List As Of Date 02/26/2025 Noted Resolved CARDIOMYOPATHY [I42.8] 03/17/2002 ABNORMAL THYROID FUNCTION TEST [E07.89] 03/17/2002 SIMPLE GOITER [E04.0] 03/17/2002 OSTEOPENIA [M89.9, M94.9] 03/17/2002 THYROTOX NOS NO CRISIS [E05.90] 10/05/2003 Acute on chronic congestive heart failure (HCC)*12/24/2024 Shortness of breath [R06.02] 12/24/2024 Acute on chronic congestive heart failure, unsp*12/24/2024 Acute on chronic combined systolic and diastoli*12/26/2024 Dilated cardiomyopathy (HCC) [I42.0] 12/27/2024 CHF (congestive heart failure), NYHA class I, a*01/27/2025 Chest pain [R07.9] 01/27/2025 HFrEF (heart failure with reduced ejection frac*01/27/2025 Difficulty sleeping [G47.9] 01/27/2025 Encounter Status:Closed by JUAN PARSONS on 03/02/25 [facility] Vanita 02-25-2025 CNOV Office Visit (CARDMM ) NA GOOD ([id number]) 1935 F Date Time Provider Department 02/25/25 1:30 PM LIDIA ARMENTA During your visit today, we recorded the following information about you: Pulse Blood pressure Weight Height 95/minute 118/78 54.9 kg 1.575 m Lidia Armenta, CARPENTER SUPERVISOR [employer].MATERIALS AND CORROSION ENGINEER 02/25/2025 3:55 PM Signed [facility] [place] Domen[facility] Rayo Department of Cardiovascular Medicine SECTION OF CLINICAL CARDIOLOGY OUTPATIENT VISIT DATE February 25, 2025 OUTPATIENT VISIT TYPE ESTABLISHED Elements of this note, including but not limited to HPI, ROS, Physical Exam, Assessment and Plan were copied and pasted from previous office visit notes completed within our department. Updates have been made where appropriate/noted and reflect current exam and medical decision making from date of this visit. Patient Name: Na Good : 1935 PRIMARY CARE PHYSICIAN: Alexey Vinson Sr, DO CHIEF COMPLAINT: Patient presents with: Follow Up Interval Hx: Mrs. Good comes for a follow up visit. Recent admission to [facility] for acute diastolic HF Seen by and Dr. Martinez. Had CHF clinic follow up with Jovani on 02/04/2025. The patient is an 89-year-old female with a history of AFib, HF, and tremor, presenting for evaluation of dyspnea. The patient reports increased dyspnea, which is intermittent and occurs both during the day and at night. She denies using supplemental oxygen. She does not wake up due to dyspnea but reports difficulty falling asleep. She is currently taking melatonin 2.5 mg without improvement in sleep quality. She also notes nocturia, requiring her to get up several times at night. She denies experiencing chest pain, palpitations, or dizziness. She reports a long-standing tremor, which she describes as "shaking." She is unsure if she has been taking extra doses of her diuretic. She tries to avoid excessive salt intake. She was recently hospitalized twice, in December and January, for pulmonary edema and a UTI. She denies any current symptoms of a UTI, such as dysuria or increased urinary frequency. She resides in an assisted living facility, [facility], and is accompanied by her nurse aide. She is under the care of a primary physician and a nurse practitioner at the facility. She is currently taking a thyroid medication. Recent lab results show normal renal function, potassium levels, and thyroid function. There were no tests performed for review. PHYSICAL EXAMINATION: Vitals: BP 118/78 (BP Position: Sitting) Pulse 95 Ht 157.5 cm (5' 2") Wt 54.9 kg (121 lb 0.5 oz) SpO2 98% BMI 22.14 kg/m? General: Alert AND oriented, no acute distress. Skin: Normal. HEENT: Pupils equal, round. Oral cavity and oropharynx clear. Neck: Supple, no mass. Breast: Deferred. Respiratory: Clear to auscultation bilaterally. Cardiovascular: Jugular venous pressure elevated. Irregular rate and rhythm, normal S1 and S2, no murmurs or added sounds. Abdomen: Soft, non-tender, non-distended, no masses palpable, no hepatosplenomegaly, normal bowel sounds. Genitourinary: Deferred. MSK: No joint swelling, erythema, or tenderness. Extremities: No clubbing, cyanosis. 1-2+ BLE edema up to the shins. IMPRESSION/PLAN: 1. SOB (shortness of breath) (R06.02) 2. Acute on chronic combined systolic and diastolic CHF (congestive heart failure) (HCC) (I50.43) 3. Dilated cardiomyopathy (HCC) (I42.0) Recent hospitalizations in December and January for fluid overload; currently experiencing intermittent dyspnea. Labs are stable and within normal limits. - Adjusted medication regimen to optimize fluid status. - Ordered repeat chest X-ray to assess for recurrent pulmonary congestion. - Advised patient to maintain a low-sodium diet. - Will coordinate with facility provider Cameron Brown NP, regarding ongoing management. 4. Primary hypertension (I10) Blood pressure readings show some variability, with occasional elevated and low values, particularly at night; no reported dizziness. - Continue current antihypertensive regimen. - Monitor blood pressure to ensure systolic values remain above 90 mmHg. 5. Primary insomnia (F51.01) Chronic difficulty falling asleep; current melatonin 2.5 mg has not been effective. - Will discuss alternative management strategies with facility provider Cameron Brown NP. Thank you very much for allowing me to assist in the care of Na Good. The above information was discussed at length and detail with the patient who verbalized an understanding of the plan and was given ample opportunity to ask questions. The appropriate follow up has been arranged. I have advised the patient to contact me if any questions/problems arise prior to the follow up. Lidia Armenta, ISABEL.MATERIALS AND CORROSION ENGINEER Cardiology Nurse (more content not included)... Normal [facility] CBC-Complete Blood Cnt No Di ffon 02-24-2025 Erythrocyte distribution width (RBC) [Ratio] 16.4 % High 11.6-14.6 [facility] Comment on above: Order Comment: 546.1 Performed By: #### L 500.2500, L100.0500 #### [facility] [address] [place], [address] Hematocrit (Bld) [Volume fraction] 39.1 % Normal 37-47 [facility] Comment on above: Order Comment: 546.1 Performed By: #### L 500.2500, L100.0500 #### [facility] [address] [place], [address] Hemoglobin (Bld) [Mass/Vol] 13.1 g/dL Normal 12.0-15.0 [facility] Comment on above: Order Comment: 546.1 Performed By: #### L 500.2500, L100.0500 #### [facility] [address] [place], [address] MCH (RBC) [Entitic mass] 29.4 pg Normal 27.0-32.0 [facility] Comment on above: Order Comment: 546.1 Performed By: #### L 500.2500, L100.0500 #### [facility] [address] [place], [address] MCHC (RBC) [Mass/Vol] 33.5 g/dL Normal 32-36 [facility] Comment on above: Order Comment: 546.1 Performed By: #### L 500.2500, L100.0500 #### [facility] [address] [place], [address] MCV (RBC) [Entitic vol] 87.7 fL Normal 81-99 [facility] Comment on above: Order Comment: 546.1 Performed By: #### L 500.2500, L100.0500 #### [facility] [address] [place], [address] Platelet mean volume (Bld) [Entitic vol] 10.6 fL Normal 6.2-12.0 [facility] Comment on above: Order Comment: 546.1 Performed By: #### L 500.2500, L100.0500 #### [facility] [address] [place], [address] Platelets (Bld) [#/Vol] 359 10*3/uL Normal 150-450 [facility] Comment on above: Order Comment: 546.1 Performed By: #### L 500.2500, L100.0500 #### [facility] [address] [place], [address] RBC (Bld) [#/Vol] 4.46 10*6/uL Normal 4.2-5.4 [facility] Comment on above: Order Comment: 546.1 Performed By: #### L 500.2500, L100.0500 #### [facility] [address] [place], [address] RDW SD 52.3 fl High 35.1-43.9 [facility] Comment on above: Order Comment: 546.1 Performed By: #### L 500.2500, L100.0500 #### [facility] [address] [place], [address] WBC (Bld) [#/Vol] 9.6 10*3/uL Normal 4.4-11.0 [facility] Comment on above: Order Comment: 546.1 Performed By: #### L 500.2500, L100.0500 #### [facility] [address] [place], [address] Comprehensive Metabolic Prof ilon 02-24-2025 Albumin [Mass/Vol] 3.7 g/dL Normal 3.4-4.8 [facility] Comment on above: Order Comment: 546.1 Performed By: #### L 500.2500, L100.0500 #### [facility] [address] [place], [address] Albumin/Globulin [Mass ratio] 1.7 {ratio} Normal 0.9-2.4 [facility] Comment on above: Order Comment: 546.1 Performed By: #### L 500.2500, L100.0500 #### [facility] [address] [place], [address] ALK PHOS 38 U/L Normal 35-104 [facility] Comment on above: Order Comment: 546.1 Performed By: #### L 500.2500, L100.0500 #### [facility] [address] [place], [address] ALT [Catalytic activity/Vol] 27 U/L Normal <=34 [facility] Comment on above: Order Comment: 546.1 Performed By: #### L 500.2500, L100.0500 #### [facility] [address] [place], [address] AST [Catalytic activity/Vol] 35 U/L High <=31 [facility] Comment on above: Order Comment: 546.1 Performed By: #### L 500.2500, L100.0500 #### [facility] [address] [place], [address] Bilirubin [Mass/Vol] 0.65 mg/dL Normal 0.00-1.30 [facility] Comment on above: Order Comment: 546.1 Performed By: #### L 500.2500, L100.0500 #### [facility] [address] [place], [address] BUN/CRE 30.1 RATIO High 10-20 [facility] Comment on above: Order Comment: 546.1 Performed By: #### L 500.2500, L100.0500 #### [facility] [address] [place], [address] Calcium [Mass/Vol] 9.2 mg/dL Normal 7.6-11.0 [facility] Comment on above: Order Comment: 546.1 Performed By: #### L 500.2500, L100.0500 #### [facility] [address] [place], [address] Chloride [Moles/Vol] 103 mmol/L Normal 98-108 [facility] Comment on above: Order Comment: 546.1 Performed By: #### L 500.2500, L100.0500 #### [facility] [address] [place], [address] CO2 [Moles/Vol] 25.1 mmol/L Normal 21.0-32.0 [facility] Comment on above: Order Comment: 546.1 Performed By: #### L 500.2500, L100.0500 #### [facility] [address] [place], [address] Creatinine [Mass/Vol] 0.92 mg/dL Normal 0.70-1.20 [facility] Comment on above: Order Comment: 546.1 Performed By: #### L 500.2500, L100.0500 #### [facility] [address] [place], [address] GAP 9 Normal 5-15 [facility] Comment on above: Order Comment: 546.1 Performed By: #### L 500.2500, L100.0500 #### [facility] [address] [place], [address] GFR/1.73 sq M.predicted among non-blacks MDRD (S/P/Bld) [Vol rate/Area] 60 mL/min/{1.73_m2} Normal >60 [facility] Comment on above: Order Comment: 546.1 Result Comment: mL/m in/1.73m2 CKD-EPI Creatinine Equation (2020) Performed By: #### L 500.2500, L100.0500 #### [facility] [address] [place], [address] Globulin (S) [Mass/Vol] 2.1 g/dL Low 2.2-4.2 [facility] Comment on above: Order Comment: 546.1 Performed By: #### L 500.2500, L100.0500 #### [facility] [address] [place], [address] Glucose [Mass/Vol] 85 mg/dL Normal 70-99 [facility] Comment on above: Order Comment: 546.1 Performed By: #### L 500.2500, L100.0500 #### [facility] [address] [place], [address] Potassium [Moles/Vol] 4.6 mmol/L Normal 3.3-5.1 [facility] Comment on above: Order Comment: 546.1 Performed By: #### L 500.2500, L100.0500 #### [facility] [address] [place], [address] Sodium [Moles/Vol] 136 mmol/L Normal 133-145 [facility] Comment on above: Order Comment: 546.1 Performed By: #### L 500.2500, L100.0500 #### [facility] [address] [place], [address] T PROT 5.8 g/dL Low 5.9-8.4 [facility] Comment on above: Order Comment: 546.1 Performed By: #### L 500.2500, L100.0500 #### [facility] [address] [place], [address] Urea nitrogen [Mass/Vol] 28 mg/dL High 4-19 [facility] Comment on above: Order Comment: 546.1 Performed By: #### L 500.2500, L100.0500 #### [facility] [address] [place], [address] Thyroid Stim Hormone (TSH)on 02-24-2025 TSH 0.273 uIU/mL Low 0.300-4.200 [facility] Comment on above: Order Comment: 546.1 Performed By: #### L 500.2500, L100.0500 #### [facility] [address] [place], [address] Urinalysis, Completeon 02-24 BACTERIA 3+ /hpf Normal None Seen [facility] Comment on above: Order Comment: 546.1 Performed By: #### L 500.2500, L100.0500 #### [facility] [address] [place], [address] EPI,SQUAMOUS 0-5 SEEN Normal 5-10 [facility] Comment on above: Order Comment: 546.1 Performed By: #### L 500.2500, L100.0500 #### [facility] [address] [place], [address] WBC 10-25 SEEN Normal 0-5 [facility] Comment on above: Order Comment: 546.1 Performed By: #### L 500.2500, L100.0500 #### [facility] [address] [place], [address] Mucus Ql (Urine sed) 0 SEEN Normal [facility] Comment on above: Order Comment: 546.1 Performed By: #### L 500.2500, L100.0500 #### [facility] [address] [place], [address] RBC 0 SEEN Normal 0-5 [facility] Comment on above: Order Comment: 546.1 Performed By: #### L 500.2500, L100.0500 #### [facility] [address] [place], [address] Vitamin B12on 02-24-2025 Cobalamin (Vitamin B12) [Mass/Vol] 812 pg/mL Normal 180-914 [facility] Comment on above: Order Comment: 546.1 Performed By: #### L 500.2500, L100.0500 #### [facility] [address] [place], [address] CBC-Complete Blood Cnt No Di ffon 02-19-2025 Erythrocyte distribution width (RBC) [Ratio] 15.8 % High 11.6-14.6 [facility] Comment on above: Order Comment: 546.1 Performed By: #### L 500.2500, L100.0500 #### [facility] [address] [place], [address] Hematocrit (Bld) [Volume fraction] 37.2 % Normal 37-47 [facility] Comment on above: Order Comment: 546.1 Performed By: #### L 500.2500, L100.0500 #### [facility] [address] [place], [address] Hemoglobin (Bld) [Mass/Vol] 12.5 g/dL Normal 12.0-15.0 [facility] Comment on above: Order Comment: 546.1 Performed By: #### L 500.2500, L100.0500 #### [facility] [address] [place], [address] MCH (RBC) [Entitic mass] 29.2 pg Normal 27.0-32.0 [facility] Comment on above: Order Comment: 546.1 Performed By: #### L 500.2500, L100.0500 #### [facility] [address] [place], [address] MCHC (RBC) [Mass/Vol] 33.6 g/dL Normal 32-36 [facility] Comment on above: Order Comment: 546.1 Performed By: #### L 500.2500, L100.0500 #### [facility] [address] [place], [address] MCV (RBC) [Entitic vol] 86.9 fL Normal 81-99 [facility] Comment on above: Order Comment: 546.1 Performed By: #### L 500.2500, L100.0500 #### [facility] [address] [place], [address] Platelet mean volume (Bld) [Entitic vol] 10.8 fL Normal 6.2-12.0 [facility] Comment on above: Order Comment: 546.1 Performed By: #### L 500.2500, L100.0500 #### [facility] [address] [place], [address] Platelets (Bld) [#/Vol] 346 10*3/uL Normal 150-450 [facility] Comment on above: Order Comment: 546.1 Performed By: #### L 500.2500, L100.0500 #### [facility] [address] [place], [address] RBC (Bld) [#/Vol] 4.28 10*6/uL Normal 4.2-5.4 [facility] Comment on above: Order Comment: 546.1 Performed By: #### L 500.2500, L100.0500 #### [facility] [address] [place], [address] RDW SD 49.9 fl High 35.1-43.9 [facility] Comment on above: Order Comment: 546.1 Performed By: #### L 500.2500, L100.0500 #### [facility] [address] [place], [address] WBC (Bld) [#/Vol] 9.0 10*3/uL Normal 4.4-11.0 [facility] Comment on above: Order Comment: 546.1 Performed By: #### L 500.2500, L100.0500 #### [facility] [address] [place], [address] [facility] 02-19-2025 [facility] Telephone ([facility]) NA GOOD ([id number]) 1935 F Date Time Provider Department 02/19/25 JOVANI COCHRAN [facility] During your visit today, we recorded the following information about you: Jovani Cochran APRN.VERONICA 02/19/2025 11:19 AM Signed Rec'd call from [facility] home regarding recent weight gain for patient and clarification of duration of PRN Lasix. Apparently patient's weight went up to 123 lbs from 119 lbs rapidly. She was given an additional Lasix 20 mg daily for increased symptoms and weight has now decreased to 119 lbs. Pt did receive additional Lasix for 4 days. Discussed that this is appropriate as long as patient is tolerating and is not becoming dehydrated. Due to her returning to her dry weight, she does not need any further additional doses of PRN Lasix. She can continue Lasix 20 mg PO daily. Facility to call office if weight gain is noted. Jovani Cochran APRN.VERONICA Allergies As of Date: 02/19/2025 Noted Allergy Reaction CORTISONE 03/17/2002 Comments: facial swelling after IM injection Date Reviewed: 02/04/2025 Reviewed by: Jovani Cochran APRN.MATERIALS AND CORROSION ENGINEER - Fully Assessed Prescriptions as of 02/19/2025 - furosemide (LASIX) 20 mg tablet Take 1 tablet by mouth once daily. May take an additional 20 mg as needed for weight gain, increased Shortness of Breath, or increased edema. - enalapril (VASOTEC) 5 mg tablet Take 1 tablet by mouth two times a day. - apixaban (ELIQUIS) 2.5 mg tab(s) Take 2.5 mg by mouth two times a day. - JARDIANCE 10 mg tablet Take 10 mg by mouth daily with breakfast. - mirtazapine (REMERON) 30 mg tablet Take 30 mg by mouth daily at bedtime. - rosuvastatin (CRESTOR) 5 mg tablet Take 5 mg by mouth once daily. - ALDACTONE 25 mg tablet Take 12.5 mg by mouth once daily. - melatonin 2.5 mg chew Take 2.5 mg by mouth daily at bedtime. - senna-docusate (SENEXON-S) 8.6-50 mg per tablet Take 1 tablet by mouth once daily as needed for constipation. - Cholecalciferol, Vitamin D3, 25 mcg (1,000 unit) cap Take 1,000 Units by mouth once daily. - TOPROL XL 25 MG 24 HR TAB Take one(1) tablet daily. - MULTIVITAMIN TABLET Take one(1) tablet daily. - CALCIUM + D 600MG TABLET Take one(1) tablet two(2) times daily. 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 02-19-2025 Albumin [Mass/Vol] 3.3 g/dL Low 3.4-4.8 [facility] Comment on above: Order Comment: 546.1 Performed By: #### L 500.2500, L100.0500 #### [facility] [address] [place], [address] Albumin/Globulin [Mass ratio] 1.7 {ratio} Normal 0.9-2.4 [facility] Comment on above: Order Comment: 546.1 Performed By: #### L 500.2500, L100.0500 #### [facility] [address] [place], [address] ALK PHOS 36 U/L Normal 35-104 [facility] Comment on above: Order Comment: 546.1 Performed By: #### L 500.2500, L100.0500 #### [facility] [address] [place], [address] ALT [Catalytic activity/Vol] 22 U/L Normal <=34 [facility] Comment on above: Order Comment: 546.1 Performed By: #### L 500.2500, L100.0500 #### [facility] [address] [place], [address] AST [Catalytic activity/Vol] 31 U/L Normal <=31 [facility] Comment on above: Order Comment: 546.1 Performed By: #### L 500.2500, L100.0500 #### [facility] [address] [place], [address] Bilirubin [Mass/Vol] 0.56 mg/dL Normal 0.00-1.30 [facility] Comment on above: Order Comment: 546.1 Performed By: #### L 500.2500, L100.0500 #### [facility] [address] [place], [address] BUN/CRE 22.5 RATIO High 10-20 [facility] Comment on above: Order Comment: 546.1 Performed By: #### L 500.2500, L100.0500 #### [facility] [address] [place], [address] Calcium [Mass/Vol] 8.4 mg/dL Normal 7.6-11.0 [facility] Comment on above: Order Comment: 546.1 Performed By: #### L 500.2500, L100.0500 #### [facility] [address] [place], [address] Chloride [Moles/Vol] 101 mmol/L Normal 98-108 [facility] Comment on above: Order Comment: 546.1 Performed By: #### L 500.2500, L100.0500 #### [facility] [address] [place], [address] CO2 [Moles/Vol] 24.4 mmol/L Normal 21.0-32.0 [facility] Comment on above: Order Comment: 546.1 Performed By: #### L 500.2500, L100.0500 #### [facility] [address] [place], [address] Creatinine [Mass/Vol] 0.93 mg/dL Normal 0.70-1.20 [facility] Comment on above: Order Comment: 546.1 Performed By: #### L 500.2500, L100.0500 #### [facility] [address] [place], [address] GAP 10 Normal 5-15 [facility] Comment on above: Order Comment: 546.1 Performed By: #### L 500.2500, L100.0500 #### [facility] [address] [place], [address] GFR/1.73 sq M.predicted among non-blacks MDRD (S/P/Bld) [Vol rate/Area] 59 mL/min/{1.73_m2} Low >60 [facility] Comment on above: Order Comment: 546.1 Result Comment: mL/m in/1.73m2 CKD-EPI Creatinine Equation (2020) Performed By: #### L 500.2500, L100.0500 #### [facility] [address] [place], [address] Globulin (S) [Mass/Vol] 2.0 g/dL Low 2.2-4.2 [facility] Comment on above: Order Comment: 546.1 Performed By: #### L 500.2500, L100.0500 #### [facility] [address] [place], [address] Glucose [Mass/Vol] 66 mg/dL Low 70-99 [facility] Comment on above: Order Comment: 546.1 Performed By: #### L 500.2500, L100.0500 #### [facility] [address] [place], [address] Potassium [Moles/Vol] 4.1 mmol/L Normal 3.3-5.1 [facility] Comment on above: Order Comment: 546.1 Performed By: #### L 500.2500, L100.0500 #### [facility] [address] [place], [address] Sodium [Moles/Vol] 135 mmol/L Normal 133-145 [facility] Comment on above: Order Comment: 546.1 Performed By: #### L 500.2500, L100.0500 #### [facility] [address] [place], [address] T PROT 5.3 g/dL Low 5.9-8.4 [facility] Comment on above: Order Comment: 546.1 Performed By: #### L 500.2500, L100.0500 #### [facility] [address] [place], [address] Urea nitrogen [Mass/Vol] 21 mg/dL High 4-19 [facility] Comment on above: Order Comment: 546.1 Performed By: #### L 500.2500, L100.0500 #### [facility] [address] [place], [address] CNOVon 02-04-2025 CNOV Office Visit ([facility] ) NA GOOD ([id number]) 1935 F Date Time Provider Department 02/04/25 10:00 AM JOVANI COCHRAN [facility] During your visit today, we recorded the following information about you: Pulse Blood pressure Weight 89/minute 132/79 53.6 kg Jovani Cochran APRN.CNP 02/04/2025 1:00 PM Signed [facility] [place] [facility] Heart Failure Clinic OUTPATIENT VISIT DATE February [...] 0 No curre (more content not included)... [facility] CNCOon 01-29-2025 CNCO Letter Text [facility] CNDSon 01-29-2025 CNDS HNO ID: [id number] Author: JULIO CESAR ALVAREZ MD Service: Hospital [...] HFrEF (heart failure with reduced ejection fraction) ([facility]) Unknown Difficulty sleeping Unknown Shortness of breath [...] During patient's hospitalization called patient's power of inside phone sales and explained hospital course and need for follow up. Patient's hospital course and need for follow-up were explained to patient as well who is in understanding. Patient will need follow-up with primary care physician and cardiology soon after discharge from hospital. OPERATIONS/PROCEDURE DURING THIS HOSPITALIZATION: * No surgery found * CONSULTS DURING HOSPITALIZATION: Treatment Team: Primary Service: , [facility] PATIENT CONDITION AT DISCHARGE: Stable DISCHARGE [...] Center 02/04/2025 10:00 AM Jovani Cochran APRN.CNP [facility] 02/25/2025 1:30 PM Lidia Armenta APRN.VERONICA [facility] Discharge Information Row Name ED to Hosp-Admission (Discharged) from 01/27/2025 in [facility] Medical Follow-Up Appointment Provider Name PCP: Alexey Espino DO - Other Follow-Up Type [facility]: [facility] - ALLERGIES Allergen Reactions Cortisone facial swelling [...] Generic drug: spironola (more content not included)... [facility] NURSING PROGon 01-29-2025 NURSING PROG HNO ID: [id number] Author: RAULITO CHAVEZ, RN Service: Nursing Author Type: Registered Nurse Type: Nursing Progress Note Filed: 01/29/2025 15:28 Note Text: PATIENT EDUCATION HEART FAILURE PATIENT NAME: Na Good PATIENT LOCATION: [place] [address] [address] 1 SURVIVAL SKILLS: Low Sodium Diet Weight Monitoring and Dry Weight Importance of Follow Up after Discharge Fluid Restriction, if applicable Heart Failure Medications Symptom Management related to heart failure Activity / Physical Exercise Recommendations Smoking cessation counseling if applicable When Patient Should Call Provider Pt w/ [place], and poor vision; communication is difficult. She is unsure why she is here and wants to go home. Pt last seen by this department 12/24/24. I met w/ pt's son at that time. All children are of [facility]. Survival Skills were discussed w/ son. Son stated DRY weight b/t 122-125lb, pt weighted 122lb.@ that time. Today's weight is 125lb. Electronically Signed By: Raulito Chavez [facility] Basic metabolic 2000 panelon 01-28-2025 Anion gap [Moles/Vol] 11 mmol/L Normal 8-15 [facility] Comment on above: Order Comment: Vita florez Type: BLOOD SPECIMEN Ordering Facility: [facility] Address: [address] [place] [address] Performed By: #### 2 4321-2 #### [facility] CLIA [id number] [address] [place] [address] [place] Calcium [Mass/Vol] 8.9 mg/dL Normal 8.5-10.2 [facility] Comment on above: Order Comment: Vita florez Type: BLOOD SPECIMEN Ordering Facility: [facility] Address: [address] [place] [address] Performed By: #### 2 4321-2 #### [facility] CLIA [id number] [address] [place] [address] [place] Chloride [Moles/Vol] 103 mmol/L Normal 98-107 [facility] Comment on above: Order Comment: Speci men Type: BLOOD SPECIMEN Ordering Facility: [facility] Address: [address] [place] [address] Performed By: #### 2 4321-2 #### [facility] CLIA [id number] [address] [place] [address] [place] CO2 [Moles/Vol] 27 mmol/L Normal 22-30 [facility] Comment on above: Order Comment: Speci men Type: BLOOD SPECIMEN Ordering Facility: [facility] Address: [address] [place] [address] Performed By: #### 2 4321-2 #### [facility] CLIA [id number] [address] [place] [address] [place] Creatinine [Mass/Vol] 0.99 mg/dL High 0.58-0.96 [facility] Comment on above: Order Comment: Valei men Type: BLOOD SPECIMEN Ordering Facility: [facility] Address: [address] [place] [address] Performed By: #### 2 4321-2 #### [facility] CLIA [id number] [address] [place] [address] [place] eGFRcr SerPlBld CKD-EPI 2020 55 mL/min/1.73m??? Low >=60 [facility] Comment on above: Order Comment: Vita gautam Type: BLOOD SPECIMEN Ordering Facility: [facility] Address: [address] [place] [address] Result Comment: Radha mated Glomerular Filtration Rate [...] actual GFR. Performed By: #### 2 4321-2 #### [facility] CLIA [id number] [address] [place] [address] [place] Glucose [Mass/Vol] 83 mg/dL Normal 74-99 [facility] Comment on above: Order Comment: Speci men Type: BLOOD SPECIMEN Ordering Facility: [facility] Address: [address] [place] [address] Result Comment: The [place] Diabetes Association (ADA) provides guidance for cutoff [...] Standards of Medical Care in Diabetes 2016, [place] [employer]. Diabetes Care. 2016.39(Suppl 1). Performed By: #### 2 4321-2 #### [facility] CLIA [id number] [address] [place] [address] [place] Potassium [Moles/Vol] 4.0 mmol/L Normal 3.7-5.1 [facility] Comment on above: Order Comment: Vita florez Type: BLOOD SPECIMEN Ordering Facility: [facility] Address: [address] [place] [address] Performed By: #### 2 4321-2 #### [facility] CLIA [id number] [address] [place] [address] [place] Sodium [Moles/Vol] 141 mmol/L Normal 136-144 [facility] Comment on above: Order Comment: Vita florez Type: BLOOD SPECIMEN Ordering Facility: [facility] Address: [address] [place] [id number] Performed By: #### 2 4321-2 #### [facility] CLIA [id number] [address] [place] [address] [place] Urea nitrogen [Mass/Vol] 25 mg/dL High 7-21 [facility] Comment on above: Order Comment: Vita florez Type: BLOOD SPECIMEN Ordering Facility: [facility] Address: [address] [place] [id number] Performed By: #### 2 4321-2 #### [facility] CLIA [id number] [address] [place] CBC panel Auto (Bld)on 01-28 Erythrocyte distribution width (RBC) [Ratio] 15.8 % High 11.5-15.0 [facility] Comment on above: Order Comment: Speci men Type: BLOOD SPECIMENOrdering Facility: [facility] Address: [address] [place] [address] Performed By: #### 5 8410-2 ####[facility] [id number] [address] Hematocrit (Bld) [Volume fraction] 41.1 % Normal 36.0-46.0 [facility] Comment on above: Order Comment: Speci men Type: BLOOD SPECIMENOrdering Facility: [facility] Address: [address] [place] [address] Performed By: #### 5 8410-2 ####[facility] [id number] [address] [place] Hemoglobin (Bld) [Mass/Vol] 13.7 g/dL Normal 11.5-15.5 [facility] Comment on above: Order Comment: Speci men Type: BLOOD SPECIMENOrdering Facility: [facility] Address: [address] [place] [address] Performed By: #### 5 8410-2 ####[facility] [id number] [address] MCH (RBC) [Entitic mass] 29.6 pg Normal 26.0-34.0 [facility] Comment on above: Order Comment: Speci men Type: BLOOD SPECIMENOrdering Facility: [facility] Address: [address] [place] [address] Performed By: #### 5 8410-2 ####[facility] [id number] [address] MCHC (RBC) [Mass/Vol] 33.3 g/dL Normal 30.5-36.0 [facility] Comment on above: Order Comment: Speci men Type: BLOOD SPECIMENOrdering Facility: [facility] Address: [address] [place] [address] Performed By: #### 5 8410-2 ####[facility] [id number] [address] [place] MCV (RBC) [Entitic vol] 88.8 fL Normal 80.0-100.0 [facility] Comment on above: Order Comment: Speci men Type: BLOOD SPECIMENOrdering Facility: [facility] Address: [address] [place] [address] Performed By: #### 5 8410-2 ####[facility] [id number] [address] [place] Nucleated RBC (Bld) [#/Vol] 10*3/uL Normal <0.01 [facility] Comment on above: Order Comment: Speci men Type: BLOOD SPECIMENOrdering Facility: [facility] Address: [address] [place] [address] Performed By: #### 5 8410-2 ####[facility] [id number] [address] Platelet mean volume (Bld) [Entitic vol] 10.9 fL Normal 9.0-12.7 [facility] Comment on above: Order Comment: Speci men Type: BLOOD SPECIMENOrdering Facility: [facility] Address: [address] [place] [address] Performed By: #### 5 8410-2 ####[facility] [id number] [address] [place] Platelets (Bld) [#/Vol] 330 10*3/uL Normal 150-400 [facility] Comment on above: Order Comment: Speci men Type: BLOOD SPECIMENOrdering Facility: [facility] Address: [address] [place] [address] Performed By: #### 5 8410-2 ####[facility] [id number] [address] [place] RBC (Bld) [#/Vol] 4.63 10*6/uL Normal 3.90-5.20 [facility] Comment on above: Order Comment: Speci men Type: BLOOD SPECIMENOrdering Facility: [facility] Address: [address] [place] [id number] Performed By: #### 5 8410-2 ####[facility] [id number] [address] WBC (Bld) [#/Vol] 9.52 10*3/uL Normal 3.70-11.00 [facility] Comment on above: Order Comment: Vita gautam Type: BLOOD SPECIMENOrdering Facility: [facility] Address: [address] [place] [id number] Performed By: #### 5 8410-2 ####[facility] [id number] [place] [id number] [facility] CONSULTon 01-28-2025 CONSULT HNO ID: [id number] Author: AMY MARTINEZ MD Service: Cardiovascular Disease Author Type: Physician Type: Consults Filed: 01/28/2025 15:18 Note Text: [facility] CARDIOVASCULAR MEDICINE CONSULT NOTE (Template ID [id number]) Na Good [id number] PRIMARY SERVICE: Internal Medicine CONSULTING SERVICE: Cardiovascular [...] headaches, syncope, paral (more content not included)... Normal [facility] THERAPY NTon 01-28-2025 THERAPY NT HNO ID: [id number] Author: LOI HEWITT PT Service: Physical Therapy Author Type: Physical Therapist Type: Therapy (PT/OT/Speech/Resp) Filed: 01/28/2025 16:05 Note Text: Summary: PT evaluation Physical Therapy Evaluation Summary SERVICE DATE: 01/28/2025 SERVICE TIME: 1510 to 1528 ROOM: [id number] PT 6 Clicks Score: 20 DISCHARGE RECOMMENDATIONS [...] on feet TREATMENT INTERVENTIONS Evaluation, Therapeutic Activity (35068), Gait Training (50798) Timed Code Treatment (minutes): 3 Skilled Treatment Time (minutes): 18 $ Evaluation-Low (80120) Billed Units: 1 unit Therapeutic Activity (04732) Treatment Minutes: 2 $ Therapeutic Activity (06497) Billed Units: 0 units Gait Training (91303) Treatment Minutes: 1 $ Gait Training (85387) Billed Units: 0 units TRAINING AND EDUCATION [...] posture and with (more content not included)... [facility] THERAPY NT HNO ID: [id number] Author: BOWCAROLE COHEN OT/L Service: Occupational Therapy Author Type: Occupational Therapist Type: Therapy (PT/OT/Speech/Resp) Filed: 01/28/2025 14:56 Note Text: Summary: OT Evaluation Occupational Therapy Evaluation Summary SERVICE DATE: 01/28/2025 SERVICE TIME: 1418 to 1446 ROOM: [place] [address] OT 6 Clicks Score: 19 DISCHARGE RECOMMENDATIONS [...] ADLs and functional mobility/transfers, pt is very [place], follows commands appropriately, denies SOB during mobility, reports no questions/concerns for d/c back to [facility] Bed/Chair Alarm, Fall Risk CURRENT HOSPITAL COURSE Patient presents with SOB, admitted for acute on chronic CHF Relevant Past Medical History: ASCVA, CAD, CHF, HTN, insomnia, LV mural thrombus, tremor, cardiomyopathy HOME LIVING Patient Lives With: Facility Care, Other: See Comment Comments: [facility] Assistance Available: 24-Hour Entry To Home: No [...] pleasant and agreeable to this session, RN cleard to work with COGNITION Orientation Deficits: (AOx4) Responsiveness: Alert, Awake Follows Commands: 2-step Commands THERAPY DIAGNOSIS Reduced mobility-other, Decreased activities of daily living (ADL), Muscle Weakness (generalized) TREATMENT INTERVENTIONS Evaluation, Self Group Home Management (54549) Timed Code Treatment (minutes): 13 Skilled Treatment Time (minutes): 28 TRAINING AND EDUCATION PROVIDED Activity Adaptation/Fitness Club Manager y Strategies, Adaptive Equipment/DME, Bed Mobility, Benefits of In-Hospital Mobility, Cognitive Skills, Command Following, Discharge Planning, Expected Functional Level, Functional Mobility Involving ADLs, Insight into Deficits, Lower Extremity Dressing, Memory/Attention, Orientation, Positioning, Role of Occupational Therapy, Safety/Judgment, Sitting Balance to Improve [place] with ADLs/Self-Care, Standing Balance to Improve [place] with ADLs/Self-Care, Transfer - Sit to Stand [...] and/or physical assistance. (more content not included)... [facility] ALLIED HEALTHon 01-27-2025 ALLIED HEALTH HNO ID: [id number] Author: CECILE BAIRES CT Service: Radiology Author Type: Technologist [...] PATIENT PRESENTS WITH AN IMPLANTABLE OR ATTACHED HAND COOPER HELPER: No RADIOLOGY DEPARTMENT: General X-ray: Exam(s) Completed: Chest X-Ray PERIPHERAL IV DATA: Not applicable SIGNED BY: LAUREL Brooks January 27, 2025 1:24 PM [facility] Bacteria Ur Culton Bacteria identified Cx Nom (U) CULTURE, URINE: Normal urogenital tiffanie: ORGANISM ID: 1 >=100,000 CFU/ml Staphylococcus epidermidis No further workup. [facility] Comment on above: Performed By: #### 2 4356-8 ####[facility] [id number] [place], [place] [address] [place] [address] [place]#### 630-4 ####[facility] [id number] [address] [place] CBC W Auto Differential pane l (Bld)on 01-27-2025 Basophils (Bld) [#/Vol] 0.09 10*3/uL Normal <0.11 [facility] Comment on above: Order Comment: Speci men Type: BLOOD SPECIMENOrdering Facility: [facility] Address: [address] [place] [address] Performed By: #### 5 7021-8 ####[facility] [id number] [place] [address] [place] Basophils/100 WBC (Bld) 0.9 % Normal [facility] Comment on above: Order Comment: Speci men Type: BLOOD SPECIMENOrdering Facility: [facility] Address: [address] [place] [address] Performed By: #### 5 7021-8 ####[facility] [id number] [place] [address] [place] Differential cell count method Nom (Bld) Auto Normal [facility] Comment on above: Order Comment: Speci men Type: BLOOD SPECIMENOrdering Facility: [facility] Address: [address] [place] [address] Performed By: #### 5 7021-8 ####[facility] [id number] [place] [address] [place] Eosinophils (Bld) [#/Vol] 0.06 10*3/uL Normal <0.46 [facility] Comment on above: Order Comment: Speci men Type: BLOOD SPECIMENOrdering Facility: [facility] Address: [address] [place] [address] Performed By: #### 5 7021-8 ####[facility] [id number] [address] [place] Eosinophils/100 WBC (Bld) 0.6 % Normal [facility] Comment on above: Order Comment: Speci men Type: BLOOD SPECIMENOrdering Facility: [facility] Address: [address] [place] [address] Performed By: #### 5 7021-8 ####[facility] [id number] [place] [address] [place] Erythrocyte distribution width (RBC) [Ratio] 15.9 % High 11.5-15.0 [facility] Comment on above: Order Comment: Speci men Type: BLOOD SPECIMENOrdering Facility: [facility] Address: [address] [place] [address] Performed By: #### 5 7021-8 ####[facility] [id number] [place] [address] [place] Hematocrit (Bld) [Volume fraction] 45.1 % Normal 36.0-46.0 [facility] Comment on above: Order Comment: Speci men Type: BLOOD SPECIMENOrdering Facility: [facility] Address: [address] [place] [address] Performed By: #### 5 7021-8 ####[facility] [id number] [place] [address] [place] Hemoglobin (Bld) [Mass/Vol] 14.5 g/dL Normal 11.5-15.5 [facility] Comment on above: Order Comment: Speci men Type: BLOOD SPECIMENOrdering Facility: [facility] Address: [address] [place] [address] Performed By: #### 5 7021-8 ####[facility] [id number] [place] [address] [place] Immature granulocytes (Bld) [#/Vol] 0.04 10*3/uL Normal <0.10 [facility] Comment on above: Order Comment: Speci men Type: BLOOD SPECIMENOrdering Facility: [facility] Address: [address] [place] [address] Performed By: #### 5 7021-8 ####[facility] [id number] [place] [address] [place] Immature granulocytes/100 WBC (Bld) 0.4 % Normal [facility] Comment on above: Order Comment: Speci men Type: BLOOD SPECIMENOrdering Facility: [facility] Address: [address] [place] [address] Performed By: #### 5 7021-8 ####[facility] [id number] [place] [address] [place] Lymphocytes (Bld) [#/Vol] 1.30 10*3/uL Normal 1.00-4.00 [facility] Comment on above: Order Comment: Speci men Type: BLOOD SPECIMENOrdering Facility: [facility] Address: [address] [place] [address] Performed By: #### 5 7021-8 ####[facility] [id number] [address] Lymphocytes/100 WBC (Bld) 12.3 % Normal [facility] Comment on above: Order Comment: Speci men Type: BLOOD SPECIMENOrdering Facility: [facility] Address: [address] [place] [address] Performed By: #### 5 7021-8 ####[facility] [id number] [address] MCH (RBC) [Entitic mass] 29.2 pg Normal 26.0-34.0 [facility] Comment on above: Order Comment: Speci men Type: BLOOD SPECIMENOrdering Facility: [facility] Address: [address] [place] [address] Performed By: #### 5 7021-8 ####[facility] [id number] [address] STATES [facility] MCHC (RBC) [Mass/Vol] 32.2 g/dL Normal 30.5-36.0 [facility] Comment on above: Order Comment: Speci men Type: BLOOD SPECIMENOrdering Facility: [facility] Address: [address] [place] [address] Performed By: #### 5 7021-8 ####[facility] [id number] [address] MCV (RBC) [Entitic vol] 90.7 fL Normal 80.0-100.0 [facility] Comment on above: Order Comment: Speci men Type: BLOOD SPECIMENOrdering Facility: [facility] Address: [address] [place] [address] Performed By: #### 5 7021-8 ####[facility] [id number] [address] Monocytes (Bld) [#/Vol] 0.78 10*3/uL Normal <0.87 [facility] Comment on above: Order Comment: Speci men Type: BLOOD SPECIMENOrdering Facility: [facility] Address: [address] [place] [address] Performed By: #### 5 7021-8 ####[facility] [id number] [address] [place] Monocytes/100 WBC (Bld) 7.4 % Normal [facility] Comment on above: Order Comment: Speci men Type: BLOOD SPECIMENOrdering Facility: [facility] Address: [address] [place] [address] Performed By: #### 5 7021-8 ####[facility] [id number] [place] [address] [place] Neutrophils (Bld) [#/Vol] 8.30 10*3/uL High 1.45-7.50 [facility] Comment on above: Order Comment: Speci men Type: BLOOD SPECIMENOrdering Facility: [facility] Address: [address] [place] [address] Performed By: #### 5 7021-8 ####[facility] [id number] [place] [address] [place] Neutrophils/100 WBC (Bld) 78.4 % Normal [facility] Comment on above: Order Comment: Speci men Type: BLOOD SPECIMENOrdering Facility: [facility] Address: [address] [place] [address] Performed By: #### 5 7021-8 ####[facility] [id number] [place] [address] [place] Nucleated RBC (Bld) [#/Vol] 10*3/uL Normal <0.01 [facility] Comment on above: Order Comment: Speci men Type: BLOOD SPECIMENOrdering Facility: [facility] Address: [address] [place] [address] Performed By: #### 5 7021-8 ####[facility] [id number] [place] [address] [place] Nucleated RBC/100 WBC (Bld) [Ratio] 0.0 /100 WBC Normal [facility] Comment on above: Order Comment: Speci men Type: BLOOD SPECIMENOrdering Facility: [facility] Address: [address] [place] [address] Performed By: #### 5 7021-8 ####[facility] [id number] [place] [address] [place] Platelet mean volume (Bld) [Entitic vol] 10.9 fL Normal 9.0-12.7 [facility] Comment on above: Order Comment: Speci men Type: BLOOD SPECIMENOrdering Facility: [facility] Address: [address] [place] [address] Performed By: #### 5 7021-8 ####[facility] [id number] [place] [address] [place] Platelets (Bld) [#/Vol] 389 10*3/uL Normal 150-400 [facility] Comment on above: Order Comment: Speci men Type: BLOOD SPECIMENOrdering Facility: [facility] Address: [address] [place] [address] Performed By: #### 5 7021-8 ####[facility] [id number] [place] [address] [place] RBC (Bld) [#/Vol] 4.97 10*6/uL Normal 3.90-5.20 [facility] Comment on above: Order Comment: Speci men Type: BLOOD SPECIMENOrdering Facility: [facility] Address: [address] [place] [address] Performed By: #### 5 7021-8 ####BAIRD LABORATORYCLIA [id number] [place] [id number] [place] WBC (Bld) [#/Vol] 10.57 10*3/uL Normal 3.70-11.00 [facility] Comment on above: Order Comment: Speci men Type: BLOOD SPECIMENOrdering Facility: [facility] Address: [address] [place] [address] Performed By: #### 5 7021-8 ####BAIRD LABORATORYCLIA [id number] [place] [id number] [facility] [place] Comprehensive metabolic 2000 panelon 01-27-2025 Albumin [Mass/Vol] 4.3 g/dL Normal 3.9-4.9 [facility] Comment on above: Order Comment: Speci men Type: BLOOD SPECIMENOrdering Facility: [facility] Address: [address] [place] [address] Performed By: #### 1 9123-9, [id number], 75795-3, 36341-7 ####BAIRD LABORATORYCLIA [id number] [place] [address] [place] ALP [Catalytic activity/Vol] 52 U/L Normal 34-123 [facility] Comment on above: Order Comment: Speci men Type: BLOOD SPECIMENOrdering Facility: [facility] Address: [address] [place] [address] Performed By: #### 1 9123-9, [id number], 27297-5, 30495-5 ####BAIRD LABORATORYCLIA [id number] [address] STATES OF [facility] ALT [Catalytic activity/Vol] 30 U/L Normal 7-38 [facility] Comment on above: Order Comment: Speci men Type: BLOOD SPECIMENOrdering Facility: [facility] Address: [address] [place] [address] Performed By: #### 1 9123-9, [id number], 28977-4, 32869-3 ####BAIRD LABORATORYCLIA [id number] [address] Anion gap [Moles/Vol] 13 mmol/L Normal 8-15 [facility] Comment on above: Order Comment: Speci men Type: BLOOD SPECIMENOrdering Facility: [facility] Address: [address] [place] [address] Performed By: #### 1 9123-9, [id number], 90390-2, 39649-6 ####BAIRD LABORATORYCLIA [id number] [address] [place] AST [Catalytic activity/Vol] 41 U/L High 13-35 [facility] Comment on above: Order Comment: Speci men Type: BLOOD SPECIMENOrdering Facility: [facility] Address: [address] [place] [address] Performed By: #### 1 9123-9, [id number], 61423-8, 42298-4 ####BAIRD LABORATORYCLIA [id number] [place] [address] [place] Bilirubin [Mass/Vol] 0.7 mg/dL Normal 0.2-1.3 [facility] Comment on above: Order Comment: Speci men Type: BLOOD SPECIMENOrdering Facility: [facility] Address: [address] [place] [address] Performed By: #### 1 9123-9, [id number], 22235-0, 84075-6 ####BAIRD LABORATORYCLIA [id number] [place] [address] [place] Calcium [Mass/Vol] 9.5 mg/dL Normal 8.5-10.2 [facility] Comment on above: Order Comment: Speci men Type: BLOOD SPECIMENOrdering Facility: [facility] Address: [address] [place] [address] Performed By: #### 1 9123-9, [id number], 80198-5, 71355-0 ####BAIRD LABORATORYCLIA [id number] [place] [address] [place] Chloride [Moles/Vol] 103 mmol/L Normal 98-107 [facility] Comment on above: Order Comment: Speci men Type: BLOOD SPECIMENOrdering Facility: [facility] Address: [address] [place] [address] Performed By: #### 1 9123-9, [id number], 99098-5, 87874-4 ####BAIRD LABORATORYCLIA [id number] [place] [address] [place] CO2 [Moles/Vol] 25 mmol/L Normal 22-30 [facility] Comment on above: Order Comment: Speci men Type: BLOOD SPECIMENOrdering Facility: [facility] Address: [address] [place] [address] Performed By: #### 1 9123-9, [id number], 91151-7, 50382-9 ####BAIRD LABORATORYCLIA [id number] [address] STATES [facility] Creatinine [Mass/Vol] 0.91 mg/dL Normal 0.58-0.96 [facility] Comment on above: Order Comment: Vita florez Type: BLOOD SPECIMENOrdering Facility: [facility] Address: [address] [place] [address] Performed By: #### 1 9123-9, [id number], 03232-1, 72697-9 ####BAIRD LABORATORYCLIA [id number] [address] STATES [place] eGFRcr SerPlBld CKD-EPI 2020 60 mL/min/1.73m??? Normal >=60 [facility] Comment on above: Order Comment: Vita florez Type: BLOOD SPECIMENOrdering Facility: [facility] Address: [address] [place] [address] Result Comment: Radha mated Glomerular Filtration Rate [...] actual GFR. Performed By: #### 1 9123-9, [id number], 87319-8, 72335-8 ####BAIRD LABORATORYCLIA [id number] [address] OF [facility] Glucose [Mass/Vol] 98 mg/dL Normal 74-99 [facility] Comment on above: Order Comment: Vita florez Type: BLOOD SPECIMENOrdering Facility: [facility] Address: [address] [place] [address] Result Comment: The [place] Diabetes Association (ADA) provides guidance for cutoff [...] Standards of Medical Care in Diabetes 2016, [place] [employer]. Diabetes Care. 2016.39(Suppl 1). Performed By: #### 1 9123-9, IUI4503, 14034-6, 15941-7 ####BAIRD LABORATORYCLIA [id number] [place] [address] [place] Potassium [Moles/Vol] 4.8 mmol/L Normal 3.7-5.1 [facility] Comment on above: Order Comment: Speci men Type: BLOOD SPECIMENOrdering Facility: [facility] Address: [address] [place] [address] Performed By: #### 1 9123-9, [id number], 63630-4, 69482-5 ####BAIRD LABORATORYCLIA [id number] [place] [address] [place] Protein [Mass/Vol] 7.1 g/dL Normal 6.3-8.0 [facility] Comment on above: Order Comment: Speci men Type: BLOOD SPECIMENOrdering Facility: [facility] Address: [facility] [place] [place] [address] Performed By: #### 1 9123-9, [id number], 06489-3, 26383-4 ####BAIRD LABORATORYCLIA [id number] [place] [address] [place] Sodium [Moles/Vol] 141 mmol/L Normal 136-144 [facility] Comment on above: Order Comment: Speci men Type: BLOOD SPECIMENOrdering Facility: [facility] Address: [address] [place] [address] Performed By: #### 1 9123-9, IFR9483, 45673-0, 22064-5 ####BAIRD LABORATORYCLIA [id number] [place] [address] [place] Urea nitrogen [Mass/Vol] 25 mg/dL High 7-21 [facility] Comment on above: Order Comment: Speci men Type: BLOOD SPECIMENOrdering Facility: [facility] Address: [address] [place] [address] Performed By: #### 1 9123-9, [id number], 49475-0, 65109-6 ####[facility] LABORATORYCLIA [id number] [address] ED NOTEon 01-27-2025 ED NOTE HNO ID: [id number] Author: MELODIE CLEARY RN Service: Nursing Author Type: Registered Nurse Type: ED Notes Filed: 01/27/2025 15:53 Note Text: This rn attempted to call loan Luis message left. [facility] ED NOTE HNO ID: [id number] Author: MELODIE CLEARY RN Service: Nursing Author Type: Registered Nurse Type: ED Notes Filed: 01/27/2025 15:53 Note Text: [facility] updated on Pt admission. [facility] ED NOTE HNO ID: [id number] Author: MELODIE CLEARY RN Service: Nursing Author Type: Registered Nurse Type: ED Notes Filed: 01/27/2025 15:41 Note Text: This RN attempted to call nursing @ [facility] to update on pt current condition, DX AND admission to [facility], however, unable to reach nursing @ this time. Message to call this RN back was given. [facility] ED NOTE HNO ID: [id number] Author: MELODIE CLEARY RN Service: Nursing Author Type: Registered Nurse Type: ED Notes Filed: 01/27/2025 15:09 Note Text: Pt currently on pure wick external catheter. [facility] ED NOTE HNO ID: [id number] Author: MELODIE CLEARY RN Service: Nursing Author Type: Registered Nurse Type: ED Notes Filed: 01/27/2025 15:08 Note Text: 4 S charge aware report is in for 0405-1. [facility] ED NOTE HNO ID: [id number] Author: JUANCARLOS MARTINEZ RN Service: Nursing Author Type: Registered Nurse Type: ED Notes Filed: 01/27/2025 12:38 Note Text: MD rounds. [facility] ED PROGRESS NOTE (PROVIDER)o n 01-27-2025 ED PROGRESS NOTE (PROVIDER) HNO ID: [id number] Author: ZENOBIA CUNNINGHAM MD Service: ? Author Type: Physician Type: ED PROGRESS NOTE (PROVIDER) Filed: 01/27/2025 14:51 Note Text: ED CONTINUATION OF CARE NOTE Code Status: Prior Assumed care from: Dr. Gilliland Presentation / Findings / Interventions / Plan / Items to Follow Up: 89-year-old female who presents for from [facility] in [place] with a past medical history of congestive [...] Lasix and oxygen was initiated. Discussed with [facility] medicine on-call who will admit for diuresis. ED Course as of 01/27/25 1450 Others' Documentation Tue Jan 27, 2025 1359 CBC + DIFF(!): WBC 10.57 RBC 4.97 Hemoglobin 14.5 Hematocrit 45.1 MCV 90.7 MCH 29.2 MCHC 32.2 RDW-CV 15.9(!) Platelet Count 389 MPV 10.9 Neut% 78.4 Abs Neut (ANC) 8.30(!) Lymph% 12.3 Abs Lymph 1.30 [place]% 7.4 Abs [place] 0.78 Eosin% 0.6 Abs Eosin 0.06 Baso% [...] pneumothorax. [KS] 1411 EKG: Heart 92, NSR. [place] 156. QTc 479. No ST elevations consistent with [facility]. Nonspecific T wave changes. Left bundle appreciated [...] NO STEMI/Sgarbossa Confirmed by HELDER CABRERA DO ([id number]) on 01/27/2025 12:49:49 PM Medical Decision Making SIGNATURE: Zenobia Cunningham MD PATIENT NAME: Na Good DATE: January 27, 2025 TIME: 2:50 PM PAGER/CONTACT #: [facility] ED PROV NOTEon 01-27-2025 ED PROV NOTE HNO ID: [id number] Author: BEATRIS GILLILAND DO Service: Emergency Medicine Author Type: Physician Type: ED Provider Notes Filed: 01/27/2025 14:12 Note Text: ED Provider Note Patient Name: Na Good : 1935 SERVICE DATE: 01/27/25 History Patient presents with: Multiple Concerns: SHORTNESS OF BREATH THAT HAS BEEN ONGOING AND INSOMNIA; FROM [place], 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 Normal [facility] EKGon 01-27-2025 Electrocardiogram Ventricular Rate : 9 2 BPM Atrial Rate : 92 BPM P-R Interval : 158 ms QRS Duration : 134 ms Q-T Interval : 388 ms QTC Calculation(Bazett) : 479 ms Calculated P [place] : -4 degrees Calculated R [place] : -35 degrees Calculated T [place] : 137 degrees NORMAL SINUS RHYTHM LEFT AXIS DEVIATION LEFT BUNDLE BRANCH BLOCK ABNORMAL ECG NO STEMI/Sgarbossa Confirmed by HELDER CABRERA DO ([id number]) on 01/27/2025 12:49:49 PM NAME : NA GOOD PID : [id number] : 1935 Gender : Female Race : ORD : Procedure Date : Jan 27 2025 12:28:59 Edit Date : Jan 27 2025 12:49:52 Diagnosis: NORMAL SINUS RHYTHM LEFT AXIS DEVIATION LEFT BUNDLE BRANCH BLOCK ABNORMAL ECG NO STEMI/Sgarbossa Confirmed by HELDER CABRERA DO ([id number]) on 01/27/2025 12:49:49 PM Test Reason : Location : 1 : ER ED Overread By : HELDER CABRERA DO Edited By : HELDER CABRERA DO Referred By : , Acquired by : Edgar MARTINEZ [facility] HIGH SENSITIVITY TROPONIN T (INITIAL)on 01-27-2025 Troponin T.cardiac High sensitivity method [Mass/Vol] 32 ng/L High <12 [facility] Comment on above: Order Comment: Speci men Type: BLOOD SPECIMENOrdering Facility: [facility] Address: [address] [place] [address] Performed By: #### 1 9123-9, [id number], 47794-9, 22720-4 ####[facility] LABORATORYCLIA [id number] [address] HIGH SENSITIVITY TROPONIN T (SECOND)on 01-27-2025 Troponin T.cardiac High sensitivity method [Mass/Vol] 30 ng/L High <12 [facility] Comment on above: Order Comment: Vita florez Type: BLOOD SPECIMENOrdering Facility: [facility] Address: [address] [place] [address] Performed By: #### L [id number] ####[facility]ER[facility] LABORATORYCLIA [id number] [address] HIGH SENSITIVITY TROPONIN T (THIRD) 3 HRS AFTER INITIALon 01-27-2025 Troponin T.cardiac High sensitivity method [Mass/Vol] 31 ng/L High <12 [facility] Comment on above: Order Comment: Vita florez Type: BLOOD SPECIMENOrdering Facility: [facility] Address: [address] [place] [address] Performed By: #### L [id number] ####BAIRD LABORATORYCLIA [id number] [place] [id number] [facility] HISTORY PHYSICALon HISTORY PHYSICAL HNO ID: [id number] Author: ANIKA CALI MD Service: Hospital Medicine Author Type: Physician Type: H&P Filed: 01/27/2025 20:33 Note Text: HOSPITAL MEDICINE HISTORY AND PHYSICAL PCP: Johnson Watson MD, NIGHT AND WEEKEND COVERAGE: [facility] C[employer]: Days: 0919-1629, please page attending physician. Nights: 3890-0431, please page [facility] Night coverage pager [phone]. SUBJECTIVE Chief Complaint: sob HPI: 89-year-old female [...] pt/ot -case mgmt consult pt resides at [facility] [1] Social History Tobacco Use Smoking status: Never Vaping Use Vaping status: Never Used Substance Use Topics Alcohol use: Yes Comment: occasionally Drug use: Never Normal [facility] Magnesium [Mass/Vol] 2.5 mg/dL High 1.7-2.3 [facility] Comment on above: Order Comment: Speci men Type: BLOOD SPECIMENOrdering Facility: [facility] Address: [address] [place] [address] Performed By: #### 1 9123-9, [id number], 63489-6, 16528-1 ####[facility] LABORATORYCLIA [id number] [address] [place] NT-proBNP [facility] Natriuretic peptide.B prohormone N-Terminal [Mass/Vol] 68947 pg/mL High <450 [facility] Comment on above: Order Comment: Speci men Type: BLOOD SPECIMENOrdering Facility: [facility] Address: [address] [place] [address] Performed By: #### 1 9123-9, [id number], 43550-9, 61188-6 ####[facility] LABORATORYCLIA [id number] [place] [address] [place] Urinalysis complete panel (U )on 01-27-2025 Bacteria LM.HPF (Urine sed) [#/Area] Moderate Abnormal None Seen [facility] Comment on above: Order Comment: Speci men Type: URINE SPECIMENOrdering Facility: [facility] Address: [address] [place] [address] Performed By: #### 2 4356-8 ####BAIRD LABORATORYCLIA [id number] [place] [address] [place]#### 630-4 ####[facility] LABCLIA [id number] [place] [address] [place] Bilirubin Ql (U) Negative Normal Negative [facility] Comment on above: Order Comment: Speci men Type: URINE SPECIMENOrdering Facility: [facility] Address: [address] [place] [address] Performed By: #### 2 4356-8 ####BAIRD LABORATORYCLIA [id number] [place] [address] [place]#### 630-4 ####[facility] LABCLIA [id number] [place] [address] [place] Clarity (Unsp spec) Slightly Cloudy Abnormal Clear [facility] Comment on above: Order Comment: Speci men Type: URINE SPECIMENOrdering Facility: [facility] Address: [address] [place] [address] Performed By: #### 2 4356-8 ####BAIRD LABORATORYCLIA [id number] [place] [address] [place]#### 630-4 ####[facility] LABCLIA [id number] [place] [address] [place] Color (U) Yellow Normal Yellow [facility] Comment on above: Order Comment: Speci men Type: URINE SPECIMENOrdering Facility: [facility] Address: [address] [place] [address] Performed By: #### 2 4356-8 ####BAIRD LABORATORYCLIA [id number] [place] [address] [place]#### 630-4 ####[facility] LABCLIA [id number] [place] [address] [place] Epithelial cells LM.HPF (Urine sed) [#/Area] Few Normal [facility] Comment on above: Order Comment: Speci men Type: URINE SPECIMENOrdering Facility: [facility] Address: [address] [place] [address] Performed By: #### 2 4356-8 ####BAIRD LABORATORYCLIA [id number] [place] [address] [place]#### 630-4 ####[facility] LABCLIA [id number] [place] [address] [place] Glucose Test strip (U) [Mass/Vol] 3+ Abnormal Negative [facility] Comment on above: Order Comment: Speci men Type: URINE SPECIMENOrdering Facility: [facility] Address: [address] [place] [address] Performed By: #### 2 4356-8 ####BAIRD LABORATORYCLIA [id number] [place] [address] [place]#### 630-4 ####[facility] LABCLIA [id number] [place] [address] [place] Hemoglobin Ql (U) Trace Abnormal Negative [facility] Comment on above: Order Comment: Speci men Type: URINE SPECIMENOrdering Facility: [facility] Address: [address] [place] [address] Performed By: #### 2 4356-8 ####BAIRD LABORATORYCLIA [id number] [place] [address] [place]#### 630-4 ####[facility] LABCLIA [id number] [place] [id number] [place] Ketones Ql (U) 1+ Abnormal Negative [facility] Comment on above: Order Comment: Speci men Type: URINE SPECIMENOrdering Facility: [facility] Address: [address] [place] [address] Performed By: #### 2 4356-8 ####BAIRD LABORATORYCLIA [id number] [address] STATES OF [place]#### 630-4 ####[facility] LABCLIA [id number] [place] [address] [place] Leukocyte esterase Test strip Ql (U) 1+ Abnormal Negative [facility] Comment on above: Order Comment: Speci men Type: URINE SPECIMENOrdering Facility: [facility] Address: [address] [place] [address] Performed By: #### 2 4356-8 ####BAIRD LABORATORYCLIA [id number] [place] [address] [place]#### 630-4 ####[facility] LABCLIA [id number] [place] [address] [place] Nitrite Ql (U) Positive Abnormal Negative [facility] Comment on above: Order Comment: Speci men Type: URINE SPECIMENOrdering Facility: [facility] Address: [address] [place] [address] Performed By: #### 2 4356-8 ####BAIRD LABORATORYCLIA [id number] [place] [address] [place]#### 630-4 ####[facility] LABCLIA [id number] [place] [address] [place] pH (U) 6.5 [pH] Normal 5.0-8.0 [facility] Comment on above: Order Comment: Speci men Type: URINE SPECIMENOrdering Facility: [facility] Address: [address] [place] [address] Performed By: #### 2 4356-8 ####BAIRD LABORATORYCLIA [id number] [place] [address] [place]#### 630-4 ####[facility] LABCLIA [id number] [place] [address] [place] Protein (U) [Mass/Vol] Trace Abnormal Negative [facility] Comment on above: Order Comment: Speci men Type: URINE SPECIMENOrdering Facility: [facility] Address: [address] [place] [address] Performed By: #### 2 4356-8 ####BA[facility] LABORATORYCLIA [id number] [place] [address] [facility] [place]#### 630-4 ####[facility] LABCLIA [id number] [place] [address] [place] RBC LM.HPF (Urine sed) [#/Area] 0-3 /HPF Normal 0-3 /HPF [facility] Comment on above: Order Comment: Speci men Type: URINE SPECIMENOrdering Facility: [facility] Address: [address] [place] [address] Performed By: #### 2 4356-8 ####BA[facility] LABORATORYCLIA [id number] [address] OF [place]#### 630-4 ####[facility] LABCLIA [id number] [place] [address] [place] Specific gravity (U) [Rel density] 1.015 Normal 1.005-1.030 [facility] Comment on above: Order Comment: Speci men Type: URINE SPECIMENOrdering Facility: [facility] Address: [address] [place] [address] Performed By: #### 2 4356-8 ####BA[facility] LABORATORYCLIA [id number] [place] [address] [place]#### 630-4 ####[facility] LABCLIA [id number] [place] [address] [place] Urobilinogen Ql (U) 0.2 EU/dL Normal 0.2-1.0 EU/dL [facility] Comment on above: Order Comment: Speci men Type: URINE SPECIMENOrdering Facility: [facility] Address: [address] [place] [id number] Performed By: #### 2 4356-8 ####[facility] LABORATORYCLIA [id number] [address]#### 630-4 ####[facility] LABCLIA [id number] [place] [address] [place] WBC LM.HPF (Urine sed) [#/Area] 11-25 /HPF Abnormal 0-5 /HPF [facility] Comment on above: Order Comment: Speci men Type: URINE SPECIMENOrdering Facility: [facility] Address: [address] [place] [address] Performed By: #### 2 4356-8 ####[facility] LABORATORYCLIA [id number] [address]#### 630-4 ####[facility] LABCLIA [id number] [address] STATES [place] XR CHEST 1V FRONTAL [...] cardiomediastinal silhouette. Other: . 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, [address] Calcium [Mass/Vol] 8.8 mg/dL Normal 7.6-11.0 [facility] Comment on above: Order Comment: 546.1 Performed By: #### L 500.2500, L100.0500 #### [facility] [address] [place], [address] Chloride [Moles/Vol] 107 mmol/L Normal 98-108 [facility] Comment on above: Order Comment: 546.1 Performed By: #### L 500.2500, L100.0500 #### [facility] [address] [place], [address] CO2 [Moles/Vol] 26.2 mmol/L Normal 21.0-32.0 [facility] Comment on above: Order Comment: 546.1 Performed By: #### L 500.2500, L100.0500 #### [facility] [address] [place], [address] Creatinine [Mass/Vol] 1.09 mg/dL Normal 0.70-1.20 [facility] Comment on above: Order Comment: 546.1 Performed By: #### L 500.2500, L100.0500 #### [facility] [address] [place], [address] GAP 8 Normal -15 [facility] Comment on above: Order Comment: 546.1 Performed By: #### L 500.2500, L100.0500 #### [facility] [address] [place], [address] GFR/1.73 sq M.predicted among non-blacks MDRD (S/P/Bld) [Vol rate/Area] 49 mL/min/{1.73_m2} Low >60 [facility] Comment on above: Order Comment: 546.1 Result Comment: mL/m in/1.73m2 CKD-EPI Creatinine Equation (2020) Performed By: #### L 500.2500, L100.0500 #### [facility] [address] [place], [place], [address] Glucose [Mass/Vol] 75 mg/dL Normal 70-99 [facility] Comment on above: Order Comment: 546.1 Performed By: #### L 500.2500, L100.0500 #### [facility] [address] [place], [address] Potassium [Moles/Vol] 4.1 mmol/L Normal 3.3-5.1 [facility] Comment on above: Order Comment: 546.1 Performed By: #### L 500.2500, L100.0500 #### [facility] [address] [place], [address] Sodium [Moles/Vol] 142 mmol/L Normal 133-145 [facility] Comment on above: Order Comment: 546.1 Performed By: #### L 500.2500, L100.0500 #### [facility] [address] [place], [address] Urea nitrogen [Mass/Vol] 24 mg/dL High 4-19 [facility] Comment on above: Order Comment: 546.1 Performed By: #### L 500.2500, L100.0500 #### [facility] [address] [place], [address] Basic Metabolic Profile (BMP )on 12-29-2024 BUN/CRE 30.7 RATIO High 10-20 [facility] Comment on above: Order Comment: 546.1 Performed By: #### L 500.2500, L100.0500 #### [facility] [address] [place], [address] Calcium [Mass/Vol] 9.1 mg/dL Normal 7.6-11.0 [facility] Comment on above: Order Comment: 546.1 Performed By: #### L 500.2500, L100.0500 #### [facility] [address] [place], [address] Chloride [Moles/Vol] 103 mmol/L Normal 98-108 [facility] Comment on above: Order Comment: 546.1 Performed By: #### L 500.2500, L100.0500 #### [facility] [address] [place], [address] CO2 [Moles/Vol] 22.2 mmol/L Normal 21.0-32.0 [facility] Comment on above: Order Comment: 546.1 Performed By: #### L 500.2500, L100.0500 #### [facility] [address] [place], [address] Creatinine [Mass/Vol] 0.88 mg/dL Normal 0.70-1.20 [facility] Comment on above: Order Comment: 546.1 Performed By: #### L 500.2500, L100.0500 #### [facility] [address] [place], [address] GAP 13 Normal 5-15 [facility] Comment on above: Order Comment: 546.1 Performed By: #### L 500.2500, L100.0500 #### [facility] [address] [place], [address] GFR/1.73 sq M.predicted among non-blacks MDRD (S/P/Bld) [Vol rate/Area] 63 mL/min/{1.73_m2} Normal >60 [facility] Comment on above: Order Comment: 546.1 Result Comment: mL/m in/1.73m2 CKD-EPI Creatinine Equation (2020) Performed By: #### L 500.2500, L100.0500 #### [facility] [address] [place], [address] Glucose [Mass/Vol] 78 mg/dL Normal 70-99 [facility] Comment on above: Order Comment: 546.1 Performed By: #### L 500.2500, L100.0500 #### [facility] [address] [place], [address] Potassium [Moles/Vol] 4.2 mmol/L Normal 3.3-5.1 [facility] Comment on above: Order Comment: 546.1 Performed By: #### L 500.2500, L100.0500 #### [facility] [address] [place], [address] Sodium [Moles/Vol] 138 mmol/L Normal 133-145 [facility] Comment on above: Order Comment: 546.1 Performed By: #### L 500.2500, L100.0500 #### [facility] [address] [place], [address] Urea nitrogen [Mass/Vol] 27 mg/dL High 4-19 [facility] Comment on above: Order Comment: 546.1 Performed By: #### L 500.2500, L100.0500 #### [facility] [address] [place], [address] CBC-Complete Blood Cnt No Di ffon 12-29-2024 Erythrocyte distribution width (RBC) [Ratio] 15.7 % High 11.6-14.6 [facility] Comment on above: Order Comment: 546-1 Performed By: #### L 100.0500, L500.2500 #### [facility] [address] [place], [address] Hematocrit (Bld) [Volume fraction] 41.1 % Normal 37-47 [facility] Comment on above: Order Comment: 546-1 Performed By: #### L 100.0500, L500.2500 #### [facility] [address] [place], [address] Hemoglobin (Bld) [Mass/Vol] 13.7 g/dL Normal 12.0-15.0 [facility] Comment on above: Order Comment: 546-1 Performed By: #### L 100.0500, L500.2500 #### [facility] [address] [place], [address] MCH (RBC) [Entitic mass] 30.0 pg Normal 27.0-32.0 [facility] Comment on above: Order Comment: 546-1 Performed By: #### L 100.0500, L500.2500 #### [facility] [address] [place], [address] MCHC (RBC) [Mass/Vol] 33.3 g/dL Normal 32-36 [facility] Comment on above: Order Comment: 546-1 Performed By: #### L 100.0500, L500.2500 #### [facility] [address] [place], [address] MCV (RBC) [Entitic vol] 90.1 fL Normal 81-99 [facility] Comment on above: Order Comment: 546-1 Performed By: #### L 100.0500, L500.2500 #### [facility] [address] [place], [address] Platelet mean volume (Bld) [Entitic vol] 10.7 fL Normal 6.2-12.0 [facility] Comment on above: Order Comment: 546-1 Performed By: #### L 100.0500, L500.2500 #### [facility] [address] [place], [address] Platelets (Bld) [#/Vol] 331 10*3/uL Normal 150-450 [facility] Comment on above: Order Comment: 546-1 Performed By: #### L 100.0500, L500.2500 #### [facility] [address] [place], [address] RBC (Bld) [#/Vol] 4.56 10*6/uL Normal 4.2-5.4 [facility] Comment on above: Order Comment: 546-1 Performed By: #### L 100.0500, L500.2500 #### [facility] [address] [place], [address] RDW SD 51.1 fl High 35.1-43.9 [facility] Comment on above: Order Comment: 546-1 Performed By: #### L 100.0500, L500.2500 #### [facility] [address] [place], [address] WBC (Bld) [#/Vol] 8.7 10*3/uL Normal 4.4-11.0 [facility] Comment on above: Order Comment: 546-1 Performed By: #### L 100.0500, L500.2500 #### [facility] [address] [place], [address] Basic metabolic 2000 panelon 12-27-2024 Anion gap [Moles/Vol] 11 mmol/L Normal 8-15 [facility] Comment on above: Order Comment: Speci men Type: BLOOD SPECIMEN Ordering Facility: [facility] Address: [address] [place] [address] Performed By: #### 2 4321-2 #### [facility] CLIA [id number] [address] [place] [address] [place] Calcium [Mass/Vol] 8.9 mg/dL Normal 8.5-10.2 [facility] Comment on above: Order Comment: Speci men Type: BLOOD SPECIMEN Ordering Facility: [facility] Address: [address] [place] [address] Performed By: #### 2 4321-2 #### [facility] CLIA [id number] [address] [place] Chloride [Moles/Vol] 97 mmol/L Low 98-107 [facility] Comment on above: Order Comment: Vita florez Type: BLOOD SPECIMEN Ordering Facility: [facility] Address: [address] [place] [address] Performed By: #### 2 4321-2 #### [facility] CLIA [id number] [address] STATES [place] CO2 [Moles/Vol] 26 mmol/L Normal 22-30 [facility] Comment on above: Order Comment: Vita men Type: BLOOD SPECIMEN Ordering Facility: [facility] Address: [address] [place] [address] Performed By: #### 2 4321-2 #### [facility] CLIA [id number] [address] STATES [facility] Creatinine [Mass/Vol] 0.97 mg/dL High 0.58-0.96 [facility] Comment on above: Order Comment: Vita florez Type: BLOOD SPECIMEN Ordering Facility: [facility] Address: [address] [place] [address] Performed By: #### 2 4321-2 #### [facility] CLIA [id number] [address] eGFRcr SerPlBld CKD-EPI 2020 56 mL/min/1.73m??? Low >=60 [facility] Comment on above: Order Comment: Vita florez Type: BLOOD SPECIMEN Ordering Facility: [facility] Address: [address] [place] [address] Result Comment: Radha mated Glomerular Filtration Rate [...] actual GFR. Performed By: #### 2 4321-2 #### [facility] CLIA [id number] [address] STATES OF [facility] Glucose [Mass/Vol] 84 mg/dL Normal 74-99 [facility] Comment on above: Order Comment: Vita florez Type: BLOOD SPECIMEN Ordering Facility: [facility] Address: [address] [place] [address] Result Comment: The [place] [employer] (ADA) provides guidance for cutoff [...] Standards of Medical Care in Diabetes 2016, [employer]. Diabetes Care. 2016.39(Suppl 1). Performed By: #### 2 4321-2 #### [facility] CLIA [id number] [address] [place] [address] [place] Potassium [Moles/Vol] 3.6 mmol/L Low 3.7-5.1 [facility] Comment on above: Order Comment: Vita florez Type: BLOOD SPECIMEN Ordering Facility: [facility] Address: [address] [place] [address] Performed By: #### 2 4321-2 #### [facility] CLIA [id number] [address] [place] [address] [place] Sodium [Moles/Vol] 134 mmol/L Low 136-144 [facility] Comment on above: Order Comment: Vita florez Type: BLOOD SPECIMEN Ordering Facility: [facility] Address: [address] [place] [address] Performed By: #### 2 4321-2 #### [facility] CLIA [id number] [address] [place] [address] [place] Urea nitrogen [Mass/Vol] 28 mg/dL High 7-21 [facility] Comment on above: Order Comment: Vita florez Type: BLOOD SPECIMEN Ordering Facility: [facility] Address: [address] [place] [address] Performed By: #### 2 4321-2 #### [facility] CLIA [id number] [address] [place] CBC panel Auto (Bld)on 12-27 Erythrocyte distribution width (RBC) [Ratio] 15.6 % High 11.5-15.0 [facility] Comment on above: Order Comment: Speci men Type: BLOOD SPECIMENOrdering Facility: [facility] Address: [address] [place] [address] Performed By: #### 5 8410-2 ####[facility] [id number] [address] Hematocrit (Bld) [Volume fraction] 41.6 % Normal 36.0-46.0 [facility] Comment on above: Order Comment: Speci men Type: BLOOD SPECIMENOrdering Facility: [facility] Address: [address] [place] [address] Performed By: #### 5 8410-2 ####[facility] [id number] [address] Hemoglobin (Bld) [Mass/Vol] 13.9 g/dL Normal 11.5-15.5 [facility] Comment on above: Order Comment: Speci men Type: BLOOD SPECIMENOrdering Facility: [facility] Address: [address] [place] [address] Performed By: #### 5 8410-2 ####[facility] [id number] [address] MCH (RBC) [Entitic mass] 29.2 pg Normal 26.0-34.0 [facility] Comment on above: Order Comment: Speci men Type: BLOOD SPECIMENOrdering Facility: [facility] Address: [address] [place] [address] Performed By: #### 5 8410-2 ####[facility] [id number] [address] MCHC (RBC) [Mass/Vol] 33.4 g/dL Normal 30.5-36.0 [facility] Comment on above: Order Comment: Speci men Type: BLOOD SPECIMENOrdering Facility: [facility] Address: [address] [place] [address] Performed By: #### 5 8410-2 ####[facility] [id number] [place] [address] [place] MCV (RBC) [Entitic vol] 87.4 fL Normal 80.0-100.0 [facility] Comment on above: Order Comment: Speci men Type: BLOOD SPECIMENOrdering Facility: [facility] Address: [address] [place] [address] Performed By: #### 5 8410-2 ####[facility] [id number] [address] [place] Nucleated RBC (Bld) [#/Vol] 10*3/uL Normal <0.01 [facility] Comment on above: Order Comment: Speci men Type: BLOOD SPECIMENOrdering Facility: [facility] Address: [address] [place] [address] Performed By: #### 5 8410-2 ####[facility] [id number] [address] [place] Platelet mean volume (Bld) [Entitic vol] 10.2 fL Normal 9.0-12.7 [facility] Comment on above: Order Comment: Speci men Type: BLOOD SPECIMENOrdering Facility: [facility] Address: [address] [place] [address] Performed By: #### 5 8410-2 ####[facility] [id number] [address] [place] Platelets (Bld) [#/Vol] 334 10*3/uL Normal 150-400 [facility] Comment on above: Order Comment: Speci men Type: BLOOD SPECIMENOrdering Facility: [facility] Address: [address] [place] [address] Performed By: #### 5 8410-2 ####[facility] [id number] [place] [address] [place] RBC (Bld) [#/Vol] 4.76 10*6/uL Normal 3.90-5.20 [facility] Comment on above: Order Comment: Vita florez Type: BLOOD SPECIMENOrdering Facility: [facility] Address: [address] [place] [id number] Performed By: #### 5 8410-2 ####[facility] [id number] [place] [id number] [facility] WBC (Bld) [#/Vol] 11.86 10*3/uL High 3.70-11.00 [facility] Comment on above: Order Comment: Specsj florez Type: BLOOD SPECIMENOrdering Facility: [facility] Address: [address] [place] [id number] Performed By: #### 5 8410-2 ####[facility] [id number] [place] [id number] [facility] CNDSon 12-27-2024 CNDS HNO ID: [id number] Author: JOSE ANTONIO MILTON MD Service: General [...] being discharged to her Assisted Living with [facility] Transitions of Care Critical Issues: as [...] medications will be mailed to you From: [facility] [place] [address] - [address] - [phone] enalapril 2.5 mg tablet furosemide 20 mg tablet FUTURE APPOINTMENTS: Follow Up with PCP: Johnson Watson MD, MD The patient's risk for 30-day readmission is determined using the following contributing factors: Predictive Model Details 11% (Low) Factor Value Calculated 12/27/2024 05:20 -16% diagnosis count 5 [facility] READMISSION RISK Model 11% Facility [facility] -8% ED visits (365d) 0 8% Hospital [address] -8% Admissions (365d) 1 -6% ED Encounter 0 -6% Sodium (Avg) 138.33 -5% Malnutrition 0 -5% Observations (365d) 0 -5% Current Age 89 Plan of care discussed with Patient, Family/Significant Other: son, Care Management, and RN I have performed the ifgj-du-acmk and relevant services for a total of >30 minutes. SIGNATURE: Jose Antonio Milton MD DATE: December 27, 2024 TIME: 10:38 AM Normal [facility] Basic metabolic 2000 panelon 12-26-2024 Anion gap [Moles/Vol] 11 mmol/L Normal 8-15 [facility] Comment on above: Order Comment: Specsj florez Type: BLOOD SPECIMENOrdering Facility: [facility] Address: [address] [place] [address] Performed By: #### 2 4321-2 ####[facility] [id number] [place] [address] [place] Calcium [Mass/Vol] 8.9 mg/dL Normal 8.5-10.2 [facility] Comment on above: Order Comment: Vita florez Type: BLOOD SPECIMENOrdering Facility: [facility] Address: [address] [place] [address] Performed By: #### 2 4321-2 ####[facility] [id number] [place] [address] [place] Chloride [Moles/Vol] 101 mmol/L Normal 98-107 [facility] Comment on above: Order Comment: Vita men Type: BLOOD SPECIMENOrdering Facility: [facility] Address: [address] [place] [address] Performed By: #### 2 4321-2 ####[facility] [id number] [place] [address] [place] CO2 [Moles/Vol] 28 mmol/L Normal 22-30 [facility] Comment on above: Order Comment: Speci men Type: BLOOD SPECIMENOrdering Facility: [facility] Address: [address] [place] [address] Performed By: #### 2 4321-2 ####[facility] [id number] [address] [place] Creatinine [Mass/Vol] 1.07 mg/dL High 0.58-0.96 [facility] Comment on above: Order Comment: Valei men Type: BLOOD SPECIMENOrdering Facility: [facility] Address: [address] [place] [address] Performed By: #### 2 4321-2 ####[facility] [id number] [address] eGFRcr SerPlBld CKD-EPI 2020 50 mL/min/1.73m??? Low >=60 [facility] Comment on above: Order Comment: Vita gautam Type: BLOOD SPECIMENOrdering Facility: [facility] Address: [address] [place] [address] Result Comment: Radha mated Glomerular Filtration Rate [...] Performed By: #### 2 4321-2 ####[facility] [id number] [address] [place] Glucose [Mass/Vol] 77 mg/dL Normal 74-99 [facility] Comment on above: Order Comment: Vita men Type: BLOOD SPECIMENOrdering Facility: [facility] Address: [address] [place] [address] Result Comment: The [place] Diabetes [employer] (ADA) provides guidance for cutoff [...] Standards of Medical Care in Diabetes 2016, [place] [employer]. Diabetes Care. 2016.39(Suppl 1). Performed By: #### 2 4321-2 ####[facility] [id number] [place] [address] [place] Potassium [Moles/Vol] 3.7 mmol/L Normal 3.7-5.1 [facility] Comment on above: Order Comment: Vita florez Type: BLOOD SPECIMENOrdering Facility: [facility] Address: [address] [place] [address] Performed By: #### 2 4321-2 ####[facility] [id number] [place] [id number] [place] Sodium [Moles/Vol] 140 mmol/L Normal 136-144 [facility] Comment on above: Order Comment: Valei men Type: BLOOD SPECIMENOrdering Facility: [facility] Address: [address] [place] [address] Performed By: #### 2 4321-2 ####[facility] [id number] [place] [address] [place] Urea nitrogen [Mass/Vol] 31 mg/dL High 7-21 [facility] Comment on above: Order Comment: Vita florez Type: BLOOD SPECIMENOrdering Facility: [facility] Address: [address] [place] [address] Performed By: #### 2 4321-2 ####[facility] [id number] [address] CBC panel Auto (Bld)on 12-26 Erythrocyte distribution width (RBC) [Ratio] 15.8 % High 11.5-15.0 [facility] Comment on above: Order Comment: Speci men Type: BLOOD SPECIMENOrdering Facility: [facility] Address: [address] [place] [address] Performed By: #### 5 8410-2 ####[facility] [id number] [address] Hematocrit (Bld) [Volume fraction] 41.9 % Normal 36.0-46.0 [facility] Comment on above: Order Comment: Speci men Type: BLOOD SPECIMENOrdering Facility: [facility] Address: [address] [place] [address] Performed By: #### 5 8410-2 ####[facility] [id number] [address] Hemoglobin (Bld) [Mass/Vol] 14.0 g/dL Normal 11.5-15.5 [facility] Comment on above: Order Comment: Speci men Type: BLOOD SPECIMENOrdering Facility: [facility] Address: [address] [place] [address] Performed By: #### 5 8410-2 ####[facility] [id number] [address] MCH (RBC) [Entitic mass] 29.7 pg Normal 26.0-34.0 [facility] Comment on above: Order Comment: Speci men Type: BLOOD SPECIMENOrdering Facility: [facility] Address: [address] [place] [address] Performed By: #### 5 8410-2 ####[facility] [id number] [address] MCHC (RBC) [Mass/Vol] 33.4 g/dL Normal 30.5-36.0 [facility] Comment on above: Order Comment: Speci men Type: BLOOD SPECIMENOrdering Facility: [facility] Address: [address] [place] [address] Performed By: #### 5 8410-2 ####[facility] [id number] [address] MCV (RBC) [Entitic vol] 89.0 fL Normal 80.0-100.0 [facility] Comment on above: Order Comment: Speci men Type: BLOOD SPECIMENOrdering Facility: [facility] Address: [address] [place] [address] Performed By: #### 5 8410-2 ####[facility] [id number] [address] Nucleated RBC (Bld) [#/Vol] 10*3/uL Normal <0.01 [facility] Comment on above: Order Comment: Speci men Type: BLOOD SPECIMENOrdering Facility: [facility] Address: [address] [place] [address] Performed By: #### 5 8410-2 ####[facility] [id number] [address] Platelet mean volume (Bld) [Entitic vol] 10.6 fL Normal 9.0-12.7 [facility] Comment on above: Order Comment: Speci men Type: BLOOD SPECIMENOrdering Facility: [facility] Address: [address] [place] [address] Performed By: #### 5 8410-2 ####[facility] [id number] [address] Platelets (Bld) [#/Vol] 364 10*3/uL Normal 150-400 [facility] Comment on above: Order Comment: Speci men Type: BLOOD SPECIMENOrdering Facility: [facility] Address: [address] [place] [address] Performed By: #### 5 8410-2 ####[facility] [id number] [address] RBC (Bld) [#/Vol] 4.71 10*6/uL Normal 3.90-5.20 [facility] Comment on above: Order Comment: Specsj florez Type: BLOOD SPECIMENOrdering Facility: [facility] Address: [address] [place] [place] [id number] Performed By: #### 5 8410-2 ####[facility] [id number] [address] WBC (Bld) [#/Vol] 10.64 10*3/uL Normal 3.70-11.00 [facility] Comment on above: Order Comment: Speci men Type: BLOOD SPECIMENOrdering Facility: [facility] Address: [address] [place] [id number] Performed By: #### 5 8410-2 ####[facility] [id number] [address] ECHOon 12-26-2024 Echocardiography Echocardiography Report: Transthoracic Echo [facility] Date of service: 12/26/2024 12:23:03 PM Ordering physician: COLLEEN OLIVARES Exam indication: cardiomyopathy Technologist: Caterina Mao [facility] Interpreting physician: Rojas Matthews MD PATIENT: Name: [...] * * Final * * * CC [employer] [facility] : [id number] Normal [facility] NURSING PROGon 12-26-2024 NURSING PROG HNO ID: [id number] Author: RAULITO CHAVEZ RN Service: Nursing Author Type: Registered Nurse Type: Nursing Progress Note Filed: 12/26/2024 14:50 Note Text: PATIENT EDUCATION HEART FAILURE PATIENT NAME: Na Good PATIENT LOCATION: [place] [address] [address] 2 SURVIVAL SKILLS: Low Sodium Diet Weight [...] Skill discussed. Pt in assisted living in [place], this is fairly new for her. Children are all out of states. Son will discuss daily weight and low sodium meal plan w/ staff. Currently she orders off a menu @ meal times. Pt doesn't drink over 64 ounces per day, but unsure of intake. Medications are provided to her @ [place]. Additional L[place]argo was give INGOT STRIPPER. Pt states her normal weighs are b/t [...] Patient Education Electronically Signed By: Raulito Chavez [place] [facility] 12-26-[facility]24 THERAPY NT HNO ID: [id number] Author: LESLIE BARRERA PT Service: Physical Therapy Author Type: Physical Therapist Type: Therapy (PT/OT/Speech/Resp) Filed: 12/26/2024 11:56 Note Text: Summary: PT eval Physical Therapy Evaluation Summary SERVICE DATE: 12/26/2024 SERVICE TIME: 1123 to 1146 ROOM: [place] [address] PT 6 Clicks Score: 18 DISCHARGE RECOMMENDATIONS [...] on feet TREATMENT INTERVENTIONS Evaluation, Therapeutic Exercise (73162) Timed Code Treatment (minutes): 8 Skilled Treatment Time (minutes): 23 $ Evaluation-Low (68380) Billed Units: 1 unit Therapeutic Exercise (41040) Treatment Minutes: 8 $ Therapeutic Exercise (54800) Billed Units: 1 unit TRAINING AND EDUCATION [...] Equipment: Wheele (more content not included)... Normal [facility] Basic metabolic 2000 panelon 12-25-2024 Anion gap [Moles/Vol] 10 mmol/L Normal 8-15 [facility] Comment on above: Order Comment: Speci men Type: BLOOD SPECIMENOrdering Facility: [facility] Address: [address] [place] [address] Performed By: #### 2 4321-2, 3016-3 ####[facility] LABORATORYCLIA [id number] [place] [address] [place]#### 3024-7 ####[facility] LAB[facility]IA [id number] [address] [address] [place] Calcium [Mass/Vol] 9.1 mg/dL Normal 8.5-10.2 [facility] Comment on above: Order Comment: Speci men Type: BLOOD SPECIMENOrdering Facility: [facility] Address: [address] [place] [address] Performed By: #### 2 4321-2, 6-3 ####[facility] LABORATORYCLIA [id number] [place] [address] [place]#### 3024-7 ####[facility] LABCLIA [id number] [place] [address] [place] Chloride [Moles/Vol] 103 mmol/L Normal 98-107 [facility] Comment on above: Order Comment: Speci men Type: BLOOD SPECIMENOrdering Facility: [facility] Address: [address] [place] [address] Performed By: #### 2 4321-2, 3015-3 ####[facility] LABORATORYCLIA [id number] [place] [address] [place]#### 3024-7 ####[facility] LABCLIA [id number] [place] [address] [place] CO2 [Moles/Vol] 26 mmol/L Normal 22-30 [facility] Comment on above: Order Comment: Speci men Type: BLOOD SPECIMENOrdering Facility: [facility] Address: [address] [place] [address] Performed By: #### 2 4321-2, 3015-3 ####[facility] LABORATORYCLIA [id number] [place] [address] [place]#### 3024-7 ####[facility] LABCLIA [id number] [place] [id number] [place] Creatinine [Mass/Vol] 1.01 mg/dL High 0.58-0.96 [facility] Comment on above: Order Comment: Speci men Type: BLOOD SPECIMENOrdering Facility: [facility] Address: [address] [place] [id number] Performed By: #### 2 4321-2, 3016-3 ####[facility] LABORATORYCLIA [id number] [place] [address] [place]#### 3024-7 ####[facility] LABCLIA [id number] [place] [address] [place] eGFRcr SerPlBld CKD-EPI 2020 53 mL/min/1.73m??? Low >=60 [facility] Comment on above: Order Comment: Vita florez Type: BLOOD SPECIMENOrdering Facility: [facility] Address: [address] [place] [address] Result Comment: Radha mated Glomerular Filtration Rate [...] reflect actual GFR. Performed By: #### 2 4321-2, 3016-3 ####[facility] LABORATORYCLIA [id number] [place] [address] [place]#### 3024-7 ####[facility] LABCLIA [id number] [place] [address] [place] Glucose [Mass/Vol] 80 mg/dL Normal 74-99 [facility] Comment on above: Order Comment: Vita florez Type: BLOOD SPECIMENOrdering Facility: [facility] Address: [address] [place] [address] Result Comment: The [place] Diabetes Association (ADA) provides guidance for cutoff [...] Standards of Medical Care in Diabetes 2016, [place] [employer]. Diabetes Care. 2016.39(Suppl 1). Performed By: #### 2 4321-2, 6-3 ####[facility] LABORATORYCLIA [id number] [place] [address] [place]#### 3024-7 ####[facility] LABCLIA [id number] [place] [id number] [place] Potassium [Moles/Vol] 4.3 mmol/L Normal 3.7-5.1 [facility] Comment on above: Order Comment: Speci men Type: BLOOD SPECIMENOrdering Facility: [facility] Address: [address] [place] [address] Performed By: #### 2 4320-2, 3015-3 ####[facility] LABORATORYCLIA [id number] [place] [address] [place]#### 3024-7 ####[facility] LABCLIA [id number] [place] [address] [place] Sodium [Moles/Vol] 139 mmol/L Normal 136-144 [facility] Comment on above: Order Comment: Speci men Type: BLOOD SPECIMENOrdering Facility: [facility] Address: [address] [place] [address] Performed By: #### 2 4320-2, 3015-3 ####[facility] LABORATORYCLIA [id number] [place] [address] [place]#### 3024-7 ####[facility] LABCLIA [id number] [place] [address] [place] Urea nitrogen [Mass/Vol] 25 mg/dL High 7-21 [facility] Comment on above: Order Comment: Valei men Type: BLOOD SPECIMENOrdering Facility: [facility] Address: [address] [place] [address] Performed By: #### 2 4321-2, 3016-3 ####[facility] LABORATORYCLIA [id number] [address] [place]#### 3024-7 ####[facility] LABCLIA [id number] [address] [place] CBC panel Auto (Bld)on 12-25 Erythrocyte distribution width (RBC) [Ratio] 15.9 % High 11.5-15.0 [facility] Comment on above: Order Comment: Speci men Type: BLOOD SPECIMENOrdering Facility: [facility] Address: [address] [place] [address] Performed By: #### 5 8410-2 ####[facility] LABORATORYCLIA [id number] [address] [place] Hematocrit (Bld) [Volume fraction] 40.0 % Normal 36.0-46.0 [facility] Comment on above: Order Comment: Speci men Type: BLOOD SPECIMENOrdering Facility: [facility] Address: [address] [place] [address] Performed By: #### 5 8410-2 ####[facility] LABORATORYCLIA [id number] [address] [place] Hemoglobin (Bld) [Mass/Vol] 13.0 g/dL Normal 11.5-15.5 [facility] Comment on above: Order Comment: Speci men Type: BLOOD SPECIMENOrdering Facility: [facility] Address: [address] [place] [address] Performed By: #### 5 8410-2 ####[facility] LABORATORYCLIA [id number] [address] MCH (RBC) [Entitic mass] 29.1 pg Normal 26.0-34.0 [facility] Comment on above: Order Comment: Speci men Type: BLOOD SPECIMENOrdering Facility: [facility] Address: [address] [place] [address] Performed By: #### 5 8410-2 ####[facility] LABORATORYCLIA [id number] [address] MCHC (RBC) [Mass/Vol] 32.5 g/dL Normal 30.5-36.0 [facility] Comment on above: Order Comment: Speci men Type: BLOOD SPECIMENOrdering Facility: [facility] Address: [address] [place] [address] Performed By: #### 5 8410-2 ####[facility] LABORATORYCLIA [id number] [address] MCV (RBC) [Entitic vol] 89.7 fL Normal 80.0-100.0 [facility] Comment on above: Order Comment: Speci men Type: BLOOD SPECIMENOrdering Facility: [facility] Address: [address] [place] [address] Performed By: #### 5 8410-2 ####[facility] LABORATORYCLIA [id number] [address] [place] Nucleated RBC (Bld) [#/Vol] 10*3/uL Normal <0.01 [facility] Comment on above: Order Comment: Speci men Type: BLOOD SPECIMENOrdering Facility: [facility] Address: [address] [place] [address] Performed By: #### 5 8410-2 ####[facility] LABORATORYCLIA [id number] [address] Platelet mean volume (Bld) [Entitic vol] 10.2 fL Normal 9.0-12.7 [facility] Comment on above: Order Comment: Speci men Type: BLOOD SPECIMENOrdering Facility: [facility] Address: [address] [place] [address] Performed By: #### 5 8410-2 ####[facility] LABORATORYCLIA [id number] [address] [place] Platelets (Bld) [#/Vol] 324 10*3/uL Normal 150-400 [facility] Comment on above: Order Comment: Speci men Type: BLOOD SPECIMENOrdering Facility: [facility] Address: [address] [place] [address] Performed By: #### 5 8410-2 ####[facility] LABORATORYCLIA [id number] [address] [place] RBC (Bld) [#/Vol] 4.46 10*6/uL Normal 3.90-5.20 [facility] Comment on above: Order Comment: Speci men Type: BLOOD SPECIMENOrdering Facility: [facility] Address: [address] [place] [address] Performed By: #### 5 8410-2 ####[facility] LABORATORYCLIA [id number] [place] [id number] [facility] WBC (Bld) [#/Vol] 9.63 10*3/uL Normal 3.70-11.00 [facility] Comment on above: Order Comment: Speci men Type: BLOOD SPECIMENOrdering Facility: [facility] Address: [address] [place], [place] [address] Performed By: #### 5 8410-2 ####[facility] LABORATORYCLIA [id number] [place] [id number] [facility] CONSULTon 12-25-2024 CONSULT HNO ID: [id number] Author: ROJAS MATTHEWS MD Service: Cardiovascular Medicine Author Type: Physician Type: Consults Filed: 12/25/2024 15:05 Note Text: . [facility] [place] [facility] Department of Cardiovascular Medicine SECTION OF REGIONAL CARDIOLOGY/[facility] Consultation Note Name: Na Good : 1935 Primary Physician: Johnson Watson MD, MD Consulting Physician: Liam Smith MD Primary Mirror Maker: SERVICE DATE: December 25, 2024 ADMISSION HISTORY [...] no recent follow-up in our system but 2005 echocardiogram demonstrating mildly dilated left ventricle with [...] diminished int (more content not included)... Normal [facility] HISTORY PHYSICALon HISTORY PHYSICAL HNO ID: [id number] Author: LIAM SMITH MD Service: General Internal Medicine Author Type: Physician Type: H&P Filed: 12/25/2024 14:11 Note Text: [facility] STAFF PHYSICIAN NOTE OF PERSONAL INVOLVEMENT [...] counseling and/or coordinating care for the patient. Xwae-xh-xczk time was 35 minutes SIGNATURE: Liam Smiht MD DATE of SERVICE: December 25, 2024 [...] thrombus (eliquis), HTN, tremors, macular degeneration, CAD, [place], and insomnia. Her medical records in [facility] are from [place], [place]. Daughter, Janelle is at the bedside. (She is from [place]). She moved back to [place] in August due to the altitude- shortness of breath. She is residing at [facility] in [place]. She does not know all her medications as they administer them for her. She provided [place] paperwork. She is A/ox3, very [place], she uses 2 walking sticks to ambulate, she has NEW/ occasional dry, non productive cough, she is on RA, lungs diminished, no edema. 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 Daughter informs me while [...] Respiratory: P (more content not included)... Normal [facility] T4 Free SerPl-mCncon 025 Free T4 [Mass/Vol] 1.9 ng/dL High 0.9-1.7 [facility] Comment on above: Order Comment: Speci men Type: BLOOD SPECIMENOrdering Facility: [facility] Address: [address] [place] [address] Performed By: #### 2 4321-2, 3016-3 ####[facility] LABORATORYCLIA [id number] [address] [place]#### 3024-7 ####[facility] LABCLIA [id number] [address] OF [facility] THERAPY NTon 12-25-2024 THERAPY NT HNO ID: [id number] Author: CAROLE HUGHES OT/Amy Service: Occupational Therapy Author Type: Occupational Therapist Type: Therapy (PT/OT/Speech/Resp) Filed: 12/25/2024 11:37 Note Text: Summary: OT Evaluation Occupational Therapy Evaluation Summary SERVICE DATE: 12/25/2024 SERVICE TIME: 1103 to 1127 ROOM: [place] [address] OT 6 Clicks Score: 20 DISCHARGE RECOMMENDATIONS Home Recommended Discharge Disposition Comments: return to [facility] Anticipated Discharge Needs: Physical Assist at Home, [...] baseline with ADLs and functional mobility/transfers, very [place], follows commands appropriately, reports no questions/concerns for returning to [facility] PRECAUTIONS Bed/Chair Alarm, Fall Risk CURRENT HOSPITAL COURSE Patient presents with abdominal pain and Shortness of Breath, admitted for acute on chronic CHF Relevant Past Medical History: cardiomyopathy, goiter, osteopenia, pleural effusions, macular degeneration, tremors, HTN, LV thrombus, CHF, [place], insomnia HOME LIVING Patient Lives With: Facility [...] daily living (ADL) TREATMENT INTERVENTIONS Evaluation, Self Group Home Management (33051) Timed Code Treatment (minutes): 9 Skilled Treatment Time (minutes): 24 TRAINING AND EDUCATION PROVIDED Activity Adaptation/Fitness Club Manager y Strategies, Adaptive Equipment/DME, Bed Mobility, Benefits of In-Hospital Mobility, Cognitive Skills, Command Following, Discharge Planning, Expected Functional Level, Functional Mobility Involving ADLs, Insight into Deficits, Lower Extremity Dressing, Memory/Attention, Orientation, Positioning, Role of Occupational Therapy, Safety/Judgment, Sitting Balance to Improve [place] with ADLs/Self-Care, Standing Balance to Improve [place] with ADLs/Self-Care, Transfer - Bed to Chair, [...] Toilet/Commode S (more content not included)... Normal [facility] TSH SerPl-aCncon 12-25-2024 TSH Qn 0.326 m[IU]/L Normal 0.270-4.200 [facility] Comment on above: Order Comment: Speci men Type: BLOOD SPECIMENOrdering Facility: [facility] Address: [address] [place] [address] Performed By: #### 2 4321-2, 3016-3 ####[facility] LABORATORYCLIA [id number] [place] [address] [place]#### 3024-7 ####[facility] LABCLIA [id number] [address] [address] [place] ALLIED HEALTHon 12-24-2024 ALLIED HEALTH HNO ID: [id number] Author: PETER RAHMAN RT(R) Service: Radiology Author Type: Dishwashing Machine Repairer Type: Allied Health Filed: 12/24/2024 13:03 Note Text: Radiology Service Progress Note PATIENT NAME: aN Good DATE OF SERVICE: December 24, 2024 [...] PATIENT PRESENTS WITH AN IMPLANTABLE OR ATTACHED HAND COOPER HELPER: No RADIOLOGY DEPARTMENT: General X-ray: Exam(s) Completed: Chest X-Ray PERIPHERAL IV DATA: Not applicable SIGNED BY: RT Lary(R) December 24, 2024 1:03 PM Normal [facility] Basic metabolic 2000 panelon 12-24-2024 Anion gap [Moles/Vol] 12 mmol/L Normal 8-15 [facility] Comment on above: Order Comment: Speci men Type: BLOOD SPECIMENOrdering Facility: [facility] Address: [address] [place] [address] Performed By: #### H STNT, 18070-9, 32267-2, 06956-6, 6-3 ####[facility] LABORATORYCLIA [id number] [place] [address] [place] Calcium [Mass/Vol] 9.5 mg/dL Normal 8.5-10.2 [facility] Comment on above: Order Comment: Speci men Type: BLOOD SPECIMENOrdering Facility: [facility] Address: [address] [place] [address] Performed By: #### H STNT, 53613-2, 89404-2, 56439-6, 6-3 ####[facility] LABORATORYCLIA [id number] [place] [address] [place] Chloride [Moles/Vol] 101 mmol/L Normal 98-107 [facility] Comment on above: Order Comment: Speci men Type: BLOOD SPECIMENOrdering Facility: [facility] Address: [address] [place] [address] Performed By: #### H STNT, 32236-4, 53959-0, 78759-3, 6-3 ####[facility] LABORATORYCLIA [id number] [place] [address] [place] [facility] CO2 [Moles/Vol] 23 mmol/L Normal 22-30 [facility] Comment on above: Order Comment: Speci men Type: BLOOD SPECIMENOrdering Facility: [facility] Address: [address] [place] [address] Performed By: #### H STNT, 17119-3, 57646-0, 80552-2, 3015-3 ####[facility] LABORATORYCLIA [id number] [address] STATES OF [facility] Creatinine [Mass/Vol] 0.87 mg/dL Normal 0.58-0.96 [facility] Comment on above: Order Comment: Speci men Type: BLOOD SPECIMENOrdering Facility: [facility] Address: [address] [place] [address] Performed By: #### H STNT, 15749-7, 23525-1, 87817-9, 3 ####[facility] LABORATORYCLIA [id number] [address] eGFRcr SerPlBld CKD-EPI 2020 64 mL/min/1.73m??? Normal >=60 [facility] Comment on above: Order Comment: Speci men Type: BLOOD SPECIMENOrdering Facility: [facility] Address: [address] [place] [address] Result Comment: Radha mated Glomerular Filtration Rate [...] accurately reflect actual GFR. Performed By: #### H STNT, 34222-9, 50595-0, 70066-9, 3016-3 ####[facility] LABORATORYCLIA [id number] [place] [address] [place] Glucose [Mass/Vol] 95 mg/dL Normal 74-99 [facility] Comment on above: Order Comment: Vita men Type: BLOOD SPECIMENOrdering Facility: [facility] Address: [address] [place] [address] Result Comment: The [place] Diabetes Association (ADA) provides guidance for cutoff [...] Standards of Medical Care in Diabetes 2016, [place] [employer] Association. Diabetes Care. 2016.39(Suppl 1). Performed By: #### H STNT, 83362-4, 85314-2, 46458-0, 3 ####[facility] LABORATORYCLIA [id number] [place] [id number] [place] Potassium [Moles/Vol] 5.1 mmol/L Normal 3.7-5.1 [facility] Comment on above: Order Comment: Vita florez Type: BLOOD SPECIMENOrdering Facility: [facility] Address: [address] [place] [address] Performed By: #### H STNT, 81847-0, 90007-7, 01350-2, 3015-3 ####[facility] LABORATORYCLIA [id number] [place] [id number] [place] Sodium [Moles/Vol] 136 mmol/L Normal 136-144 [facility] Comment on above: Order Comment: Vita florez Type: BLOOD SPECIMENOrdering Facility: [facility] Address: [address] [place] [address] Performed By: #### H STNT, 79996-8, 31942-4, 94074-7, 3015-3 ####[facility] LABORATORYCLIA [id number] [place] [address] [place] Urea nitrogen [Mass/Vol] 24 mg/dL High - [facility] Comment on above: Order Comment: Speci men Type: BLOOD SPECIMENOrdering Facility: [facility] Address: [address] [place] [address] Performed By: #### H STNT, 65814-8, 70502-5, 32303-8, 3015-3 ####[facility] LABORATORYCLIA [id number] [place] [address] [place] CBC W Auto Differential pane l (Bld)on 12-24-2024 Basophils (Bld) [#/Vol] 0.09 10*3/uL Normal <0.11 [facility] Comment on above: Order Comment: Speci men Type: BLOOD SPECIMENOrdering Facility: [facility] Address: [address] [place] [address] Performed By: #### 5 7021-8 ####[facility] LABORATORYCLIA [id number] [place] [address] [place] Basophils/100 WBC (Bld) 0.9 % Normal [facility] Comment on above: Order Comment: Speci men Type: BLOOD SPECIMENOrdering Facility: [facility] Address: [address] [place] [address] Performed By: #### 5 7021-8 ####[facility] LABORATORYCLIA [id number] [place] [address] [place] Differential cell count method Nom (Bld) Auto Normal [facility] Comment on above: Order Comment: Speci men Type: BLOOD SPECIMENOrdering Facility: [facility] Address: [address] [place] [address] Performed By: #### 5 7021-8 ####[facility] LABORATORYCLIA [id number] [place] [address] [place] Eosinophils (Bld) [#/Vol] 0.04 10*3/uL Normal <0.46 [facility] Comment on above: Order Comment: Speci men Type: BLOOD SPECIMENOrdering Facility: [facility] Address: [address] [place] [address] Performed By: #### 5 7021-8 ####[facility] LABORATORYCLIA [id number] [place] [address] [place] Eosinophils/100 WBC (Bld) 0.4 % Normal [facility] Comment on above: Order Comment: Speci men Type: BLOOD SPECIMENOrdering Facility: [facility] Address: [address] [place] [address] Performed By: #### 5 7021-8 ####[facility] LABORATORYCLIA [id number] [place] [address] [place] Erythrocyte distribution width (RBC) [Ratio] 16.1 % High 11.5-15.0 [facility] Comment on above: Order Comment: Speci men Type: BLOOD SPECIMENOrdering Facility: [facility] Address: [address] [place] [address] Performed By: #### 5 7021-8 ####[facility] LABORATORYCLIA [id number] [place] [address] [place] Hematocrit (Bld) [Volume fraction] 42.0 % Normal 36.0-46.0 [facility] Comment on above: Order Comment: Speci men Type: BLOOD SPECIMENOrdering Facility: [facility] Address: [address] [place] [address] Performed By: #### 5 7021-8 ####[facility] LABORATORYCLIA [id number] [place] [address] [place] Hemoglobin (Bld) [Mass/Vol] 14.0 g/dL Normal 11.5-15.5 [facility] Comment on above: Order Comment: Speci men Type: BLOOD SPECIMENOrdering Facility: [facility] Address: [address] [place] [address] Performed By: #### 5 7021-8 ####[facility] LABORATORYCLIA [id number] [place] [address] [place] Immature granulocytes (Bld) [#/Vol] 0.04 10*3/uL Normal <0.10 [facility] Comment on above: Order Comment: Speci men Type: BLOOD SPECIMENOrdering Facility: [facility] Address: [address] [place] [address] Performed By: #### 5 7021-8 ####[facility] LABORATORYCLIA [id number] [address] Immature granulocytes/100 WBC (Bld) 0.4 % Normal [facility] Comment on above: Order Comment: Speci men Type: BLOOD SPECIMENOrdering Facility: [facility] Address: [address] [place] [address] Performed By: #### 5 7021-8 ####[facility] LABORATORYCLIA [id number] [address] [place] Lymphocytes (Bld) [#/Vol] 1.01 10*3/uL Normal 1.00-4.00 [facility] Comment on above: Order Comment: Speci men Type: BLOOD SPECIMENOrdering Facility: [facility] Address: [address] [place] [address] Performed By: #### 5 7021-8 ####[facility] LABORATORYCLIA [id number] [address] Lymphocytes/100 WBC (Bld) 10.4 % Normal [facility] Comment on above: Order Comment: Speci men Type: BLOOD SPECIMENOrdering Facility: [facility] Address: [address] [place] [address] Performed By: #### 5 7021-8 ####[facility] LABORATORYCLIA [id number] [address] [place] MCH (RBC) [Entitic mass] 30.0 pg Normal 26.0-34.0 [facility] Comment on above: Order Comment: Speci men Type: BLOOD SPECIMENOrdering Facility: [facility] Address: [address] [place] [address] Performed By: #### 5 7021-8 ####[facility] LABORATORYCLIA [id number] [address] MCHC (RBC) [Mass/Vol] 33.3 g/dL Normal 30.5-36.0 [facility] Comment on above: Order Comment: Speci men Type: BLOOD SPECIMENOrdering Facility: [facility] Address: [address] [place] [address] Performed By: #### 5 7021-8 ####[facility] LABORATORYCLIA [id number] [address] [place] MCV (RBC) [Entitic vol] 90.1 fL Normal 80.0-100.0 [facility] Comment on above: Order Comment: Speci men Type: BLOOD SPECIMENOrdering Facility: [facility] Address: [address] [place] [address] Performed By: #### 5 7021-8 ####[facility]ORATORYCLIA [id number] [place] [address] [place] Monocytes (Bld) [#/Vol] 0.81 10*3/uL Normal <0.87 [facility] Comment on above: Order Comment: Speci men Type: BLOOD SPECIMENOrdering Facility: [facility] Address: [address] [place] [address] Performed By: #### 5 7021-8 ####[facility]ORATORYCLIA [id number] [address] [place] Monocytes/100 WBC (Bld) 8.3 % Normal [facility] Comment on above: Order Comment: Speci men Type: BLOOD SPECIMENOrdering Facility: [facility] Address: [address] [place] [address] Performed By: #### 5 7021-8 ####[facility] LABORATORYCLIA [id number] [place] [address] [place] Neutrophils (Bld) [#/Vol] 7.72 10*3/uL High 1.45-7.50 [facility] Comment on above: Order Comment: Speci men Type: BLOOD SPECIMENOrdering Facility: [facility] Address: [address] [place] [address] Performed By: #### 5 7021-8 ####[facility] LABORATORYCLIA [id number] [address] [place] Neutrophils/100 WBC (Bld) 79.6 % Normal [facility] Comment on above: Order Comment: Speci men Type: BLOOD SPECIMENOrdering Facility: [facility] Address: [address] [place] [address] Performed By: #### 5 7021-8 ####[facility]ORATORYCLIA [id number] [address] [place] Nucleated RBC (Bld) [#/Vol] 10*3/uL Normal <0.01 [facility] Comment on above: Order Comment: Speci men Type: BLOOD SPECIMENOrdering Facility: [facility] Address: [address] [place] [address] Performed By: #### 5 7021-8 ####[facility] LABORATORYCLIA [id number] [address] [place] Nucleated RBC/100 WBC (Bld) [Ratio] 0.0 /100 WBC Normal [facility] Comment on above: Order Comment: Speci men Type: BLOOD SPECIMENOrdering Facility: [facility] Address: [address] [place] [address] Performed By: #### 5 7021-8 ####[facility] LABORATORYCLIA [id number] [place] [address] [place] Platelet mean volume (Bld) [Entitic vol] 10.4 fL Normal 9.0-12.7 [facility] Comment on above: Order Comment: Speci men Type: BLOOD SPECIMENOrdering Facility: [facility] Address: [address] [place] [address] Performed By: #### 5 7021-8 ####[facility] LABORATORYCLIA [id number] [place] [address] [facility] [place] Platelets (Bld) [#/Vol] 386 10*3/uL Normal 150-400 [facility] Comment on above: Order Comment: Speci men Type: BLOOD SPECIMENOrdering Facility: [facility] Address: [address] [place] [address] Performed By: #### 5 7021-8 ####[facility] LABORATORYCLIA [id number] [place] [address] [place] RBC (Bld) [#/Vol] 4.66 10*6/uL Normal 3.90-5.20 [facility] Comment on above: Order Comment: Speci men Type: BLOOD SPECIMENOrdering Facility: [facility] Address: [address] [place] [id number] Performed By: #### 5 7021-8 ####[facility] LABORATORYCLIA [id number] [address] WBC (Bld) [#/Vol] 9.71 10*3/uL Normal 3.70-11.00 [facility] Comment on above: Order Comment: Speci men Type: BLOOD SPECIMENOrdering Facility: [facility] Address: [address] [place], [place] [address] Performed By: #### 5 7021-8 ####[facility] LABORATORYCLIA [id number] [address] ECG COMPLETEon 12-24-2024 ECG COMPLETE Ventricular Rate : 9 5 BPM Atrial Rate : 95 BPM P-R Interval : 162 ms QRS Duration : 138 ms Q-T Interval : 396 ms QTC Calculation(Bazett) : 497 ms Calculated P [place] : -5 degrees Calculated R [place] : -33 degrees Calculated T [place] : 147 degrees NORMAL SINUS RHYTHM LEFT AXIS DEVIATION LEFT VENTRICULAR HYPERTROPHY WITH QRS WIDENING AND REPOLARIZATION ABNORMALITY ( R in aVL , Db product ) CANNOT RULE OUT SEPTAL INFARCT , AGE UNDETERMINED ABNORMAL ECG NO PREVIOUS ECGS AVAILABLE Confirmed by ROJAS MATTHEWS MD ([id number]) on 12/25/2024 5:11:53 PM NAME : NA GOOD PID : [id number] : 1935 Gender : Female Race : ORD : [id number] Procedure Date : Dec 24 2024 19:25:38 Edit Date : Dec 25 2024 17:11:57 Diagnosis: NORMAL SINUS RHYTHM LEFT AXIS DEVIATION LEFT VENTRICULAR HYPERTROPHY WITH QRS WIDENING AND REPOLARIZATION ABNORMALITY ( R in aVL , Db product ) CANNOT RULE OUT SEPTAL INFARCT , AGE UNDETERMINED ABNORMAL ECG NO PREVIOUS ECGS AVAILABLE Confirmed by ROJAS MATTHEWS MD ([id number]) on 12/25/2024 5:11:53 PM Test Reason : Shortness of Breath Location : 5 : 3S 0311 Overread By : ROJAS MATTHEWS MD Edited By : ROJAS MATTHEWS MD Referred By : , Acquired by : [id number], Normal [facility] ED PROV NOTEon 12-24-2024 ED PROV NOTE HNO ID: [id number] Author: OSCAR LIZARRAGA DO Service: Emergency Medicine [...] SpO2 Weight Height 12/24/24 1139 12/24/24 1139 09/03/114012/24/24 11412/24/24 1139 12/24/24 1139 12/24/24 113 -- 129/87 (!) 91 36.1 ?C (97 [...] type Orthopnea MDM / Disposition / Plan Nakalyan Good is an 89-year-old female is presenting [...] by: EMS (more content not included)... Normal [facility] Gas and Carbon monoxide pane l (BldV)on 12-24-2024 Base excess Calc (BldV) [Moles/Vol] 1 mmol/L Normal 0-2 [facility] Comment on above: Order Comment: Vita florez Type: BLOOD SPECIMEN [facility] Address: [address] [place] [address] Performed By: #### 2 4321-2 #### [facility] CLIA [id number] [address] [place] [address] [place] Calcium.ionized (Bld) [Mass/Vol] 1.17 mmol/L Normal 1.08-1.30 [facility] Comment on above: Order Comment: Vita florez Type: BLOOD SPECIMEN [facility] Address: [address] [place] [address] Performed By: #### 2 4321-2 #### [facility] CLIA [id number] [address] [place] Carboxyhemoglobin (BldV) [Mass fraction] 1.3 % Normal 0.0-2.0 [facility] Comment on above: Order Comment: Vita florez Type: BLOOD SPECIMEN [facility] Address: [address] [place] [address] Result Comment: Carb oxyhemoglobin Reference Range for Smokers: 2.0-8.0% Performed By: #### 2 4321-2 #### [facility] CLIA [id number] [address] [place] CO2 (BldV) [Partial pressure] 40 mm[Hg] Low 42-55 [facility] Comment on above: Order Comment: Vita florez Type: BLOOD SPECIMEN [facility] Address: [address] [place] [address] Performed By: #### 2 4321-2 #### [facility] CLIA [id number] [address] [place] CO2 adjusted to patient's actual temperature (BldV) [Partial pressure] Normal [facility] Comment on above: Order Comment: Speci men Type: BLOOD SPECIMEN [facility] Address: [address] [place] [address] Performed By: #### 2 4321-2 #### [facility] CLIA [id number] [address] [place] [address] [place] HCO3 (Bld) [Moles/Vol] 25 mmol/L Normal 24-28 [facility] Comment on above: Order Comment: Speci men Type: BLOOD SPECIMEN [facility] Address: [address] [place] [address] Performed By: #### 2 4321-2 #### [facility] CLIA [id number] [address] [place] Hemoglobin (Bld) [Mass/Vol] 13.8 g/dL Normal 11.5-15.5 [facility] Comment on above: Order Comment: Speci men Type: BLOOD SPECIMEN [facility] Address: [address] [place] [address] Performed By: #### 2 4321-2 #### [facility] CLIA [id number] [address] [place] Lactate [Moles/Vol] 2.2 mmol/L Normal 0.5-2.2 [facility] Comment on above: Order Comment: Speci men Type: BLOOD SPECIMEN [facility] Address: [address] [place] [address] Performed By: #### 2 4321-2 #### [facility] CLIA [id number] [address] [place] Methemoglobin (Bld) [Mass fraction] % Normal 0.0-1.5 [facility] Comment on above: Order Comment: Speci men Type: BLOOD SPECIMEN [facility] Address: [address] [place] [address] Performed By: #### 2 4321-2 #### [facility] CLIA [id number] [address] O2 THERAPY RA=Room Air [facility] Comment on above: Order Comment: Speci men Type: BLOOD SPECIMEN [facility] Address: [address] [place] [address] Performed By: #### 2 4321-2 #### [facility] CLIA [id number] [address] [place] Oxygen (BldV) [Partial pressure] mm[Hg] Low 35-45 [facility] Comment on above: Order Comment: Speci men Type: BLOOD SPECIMEN [facility] Address: [address] [place] [address] Performed By: #### 2 4321-2 #### [facility] CLIA [id number] [address] Oxygen adjusted to patient's actual temperature (BldV) [Partial pressure] [facility] Comment on above: Order Comment: Speci men Type: BLOOD SPECIMEN [facility] Address: [address] [place] [address] Performed By: #### 2 4321-2 #### [facility] CLIA [id number] [address] Oxygen saturation in Venous blood 53 % Low 60-85 [facility] Comment on above: Order Comment: Speci men Type: BLOOD SPECIMEN [facility] Address: [address] [place] [address] Performed By: #### 2 4321-2 #### [facility] CLIA [id number] [address] [place] [address] [place] Oxyhemoglobin (BldV) [Mass fraction] 52 % Low 60-85 [facility] Comment on above: Order Comment: Speci men Type: BLOOD SPECIMEN [facility] Address: [address] [place] [address] Performed By: #### 2 4321-2 #### [facility] CLIA [id number] [address] [place] [address] [place] pH (BldV) 7.41 [pH] Normal 7.32-7.42 [facility] Comment on above: Order Comment: Speci men Type: BLOOD SPECIMEN [facility] Address: [address] [place] [address] Performed By: #### 2 4321-2 #### [facility] CLIA [id number] [address] [place] [address] [place] pH adjusted to patient's actual temperature (BldV) Normal [facility] Comment on above: Order Comment: Speci men Type: BLOOD SPECIMEN [facility] Address: [address] [place] [address] Performed By: #### 2 4321-2 #### [facility] CLIA [id number] [address] [place] [address] [place] Potassium [Moles/Vol] 5.4 mmol/L High 3.5-5.0 [facility] Comment on above: Order Comment: Speci men Type: BLOOD SPECIMEN [facility] Address: [address] [place] [address] Performed By: #### 2 4321-2 #### [facility] CLIA [id number] [address] [place] [address] [place] HIGH SENSITIVITY TROPONIN To n 12-24-2024 Troponin T.cardiac High sensitivity method [Mass/Vol] 33 ng/L High <12 [facility] Comment on above: Order Comment: Speci men Type: BLOOD SPECIMENOrdering Facility: [facility] Address: [address] [place] [address] Performed By: #### H STNT, 93225-8, 88321-7, 78305-8, 3016-3 ####[facility]ORATORYCLIA [id number] [place] [address] [place] Magnesium SerPl-mCncon 12-24 Magnesium [Mass/Vol] 2.3 mg/dL Normal 1.7-2.3 [facility] Comment on above: Order Comment: Speci men Type: BLOOD SPECIMENOrdering Facility: [facility] Address: [address] [place] [address] Performed By: #### H STNT, 35824-6, 87063-3, 12721-5, 3016-3 ####[facility] LABORATORYCLIA [id number] [address] NT-proBNP SerPl-mCncon 12-24 Natriuretic peptide.B prohormone N-Terminal [Mass/Vol] 87786 pg/mL High <450 [facility] Comment on above: Order Comment: Speci men Type: BLOOD SPECIMENOrdering Facility: [facility] Address: [address] [place] [address] Performed By: #### H STNT, 71458-9, 73705-4, 30762-7, 3016-3 ####[facility]ORATORYCLIA [id number] [address] TSH SerPl-aCncon 12-24-2024 TSH Qn 0.465 m[IU]/L Normal 0.270-4.200 [facility] Comment on above: Order Comment: Speci men Type: BLOOD SPECIMENOrdering Facility: [facility] Address: [address] [place] [address] Performed By: #### H STNT, 44722-4, 56637-8, 22561-4, 6-3 ####[facility]ORATORYCLIA [id number] [address] XR CHEST 2V FRONTAL/LATon XR CHEST 2V [...] pulmonary edema. Superimposed infection cannot be excluded. Substitute School Nurse: KONSTANTIN Transcribe Date/Time: Dec 24 2024 1:15P Dictated by : ROXANE CRUZ MD This examination was interpreted and the report reviewed and electronically signed by: ROXANE CRUZ MD on Dec 24 2024 1:19PM EST [id number] Normal [facility] CBC-Complete Blood Cnt No Di ffon 12-11-2024 HCT Normal 37-47 [facility] Comment on above: Order Comment: 546.1 Result Comment: LABS WERE DONE 12/09/24 DOES NOT NEED REPEATED PER NURSE Performed By: #### L 500.4050, L100.0500 #### [facility] [address] [place], [address] HGB Normal 12.0-15.0 [facility] Comment on above: Order Comment: 546.1 Result Comment: LABS WERE DONE 12/09/24 DOES NOT NEED REPEATED PER NURSE Performed By: #### L 500.4050, L100.0500 #### [facility] [address] [place], [address] MCH Normal 27.0-32.0 [facility] Comment on above: Order Comment: 546.1 Result Comment: LABS WERE DONE 12/09/24 DOES NOT NEED REPEATED PER NURSE Performed By: #### L 500.4050, L100.0500 #### [facility] [address] [place], [address] MCHC Normal 32-36 [facility] Comment on above: Order Comment: 546.1 Result Comment: LABS WERE DONE 12/09/24 DOES NOT NEED REPEATED PER NURSE Performed By: #### L 500.4050, L100.0500 #### [facility] [address] [place], [address] MCV Normal 81-99 [facility] Comment on above: Order Comment: 546.1 Result Comment: LABS WERE DONE 12/09/24 DOES NOT NEED REPEATED PER NURSE Performed By: #### L 500.4050, L100.0500 #### [facility] [address] [place], [address] PLT Normal 150-450 [facility] Comment on above: Order Comment: 546.1 Result Comment: LABS WERE DONE 12/09/24 DOES NOT NEED REPEATED PER NURSE Performed By: #### L 500.4050, L100.0500 #### [facility] [address] [place], [address] RBC Normal 4.2-5.4 [facility] Comment on above: Order Comment: 546.1 Result Comment: LABS WERE DONE 12/09/24 DOES NOT NEED REPEATED PER NURSE Performed By: #### L 500.4050, L100.0500 #### [facility] [address] [place], [address] RDW CV Normal 11.6-14.6 [facility] Comment on above: Order Comment: 546.1 Result Comment: LABS WERE DONE 12/09/24 DOES NOT NEED REPEATED PER NURSE Performed By: #### L 500.4050, L100.0500 #### [facility] [address] [place], [address] RDW SD Normal 35.1-43.9 [facility] Comment on above: Order Comment: 546.1 Result Comment: LABS WERE DONE 12/09/24 DOES NOT NEED REPEATED PER NURSE Performed By: #### L 500.4050, L100.0500 #### [facility] [address] [place], [address] WBC Normal 4.4-11.0 [facility] Comment on above: Order Comment: 546.1 Result Comment: LABS WERE DONE 12/09/24 DOES NOT NEED REPEATED PER NURSE Performed By: #### L 500.4050, L100.0500 #### [facility] [address] [place], [address] Comprehensive Metabolic Prof jalen 12-11-2024 ALB Normal 3.4-4.8 [facility] Comment on above: Order Comment: 546.1 Result Comment: LABS WERE DONE 12/09/24 DOES NOT NEED REPEATED PER NURSE Performed By: #### L 500.4050, L100.0500 #### [facility] [address] [place], [address] ALK PHOS Normal 35-104 [facility] Comment on above: Order Comment: 546.1 Result Comment: LABS WERE DONE 12/09/24 DOES NOT NEED REPEATED PER NURSE Performed By: #### L 500.4050, L100.0500 #### [facility] [address] [place], [address] ALT Normal <=34 [facility] Comment on above: Order Comment: 546.1 Result Comment: LABS WERE DONE 12/09/24 DOES NOT NEED REPEATED PER NURSE Performed By: #### L 500.4050, L100.0500 #### [facility] [address] [place], [address] AST Normal <=31 [facility] Comment on above: Order Comment: 546.1 Result Comment: LABS WERE DONE 12/09/24 DOES NOT NEED REPEATED PER NURSE Performed By: #### L 500.4050, L100.0500 #### [facility] [address] [place], [address] BUN Normal 4-19 [facility] Comment on above: Order Comment: 546.1 Result Comment: LABS WERE DONE 12/09/24 DOES NOT NEED REPEATED PER NURSE Performed By: #### L 500.4050, L100.0500 #### [facility] [address] [place], [address] BUN/CRE Normal 10-20 [facility] Comment on above: Order Comment: 546.1 Result Comment: LABS WERE DONE 12/09/24 DOES NOT NEED REPEATED PER NURSE Performed By: #### L 500.4050, L100.0500 #### [facility] [address] [place], [address] Calcium Normal 7.6-11.0 [facility] Comment on above: Order Comment: 546.1 Result Comment: LABS WERE DONE 12/09/24 DOES NOT NEED REPEATED PER NURSE Performed By: #### L 500.4050, L100.0500 #### [facility] [address] [place], [address] CL Normal 98-108 [facility] Comment on above: Order Comment: 546.1 Result Comment: LABS WERE DONE 12/09/24 DOES NOT NEED REPEATED PER NURSE Performed By: #### L 500.4050, L100.0500 #### [facility] [address] [place], [address] CO2 Normal 21.0-32.0 [facility] Comment on above: Order Comment: 546.1 Result Comment: LABS WERE DONE 12/09/24 DOES NOT NEED REPEATED PER NURSE Performed By: #### L 500.4050, L100.0500 #### [facility] [address] [place], [address] CREAT,SERUM Normal 0.70-1.20 [facility] Comment on above: Order Comment: 546.1 Result Comment: LABS WERE DONE 12/09/24 DOES NOT NEED REPEATED PER NURSE Performed By: #### L 500.4050, L100.0500 #### [facility] [address] [place], [address] eGFR Normal >60 [facility] Comment on above: Order Comment: 546.1 Result Comment: LABS WERE DONE 12/09/24 DOES NOT NEED REPEATED PER NURSE Performed By: #### L 500.4050, L100.0500 #### [facility] [address] [place], [address] GAP Normal 5-15 [facility] Comment on above: Order Comment: 546.1 Result Comment: LABS WERE DONE 12/09/24 DOES NOT NEED REPEATED PER NURSE Performed By: #### L 500.4050, L100.0500 #### [facility] [address] [place], [address] GLU Normal 70-99 [facility] Comment on above: Order Comment: 546.1 Result Comment: LABS WERE DONE 12/09/24 DOES NOT NEED REPEATED PER NURSE Performed By: #### L 500.4050, L100.0500 #### [facility] [address] [place], [address] Potassium Normal 3.3-5.1 [facility] Comment on above: Order Comment: 546.1 Result Comment: LABS WERE DONE 12/09/24 DOES NOT NEED REPEATED PER NURSE Performed By: #### L 500.4050, L100.0500 #### [facility] [address] [place], [address] T BILI Normal 0.00-1.30 [facility] Comment on above: Order Comment: 546.1 Result Comment: LABS WERE DONE 12/09/24 DOES NOT NEED REPEATED PER NURSE Performed By: #### L 500.4050, L100.0500 #### [facility] [address] [place], [address] T PROT Normal 5.9-8.4 [facility] Comment on above: Order Comment: 546.1 Result Comment: LABS WERE DONE 12/09/24 DOES NOT NEED REPEATED PER NURSE Performed By: #### L 500.4050, L100.0500 #### [facility] [address] [place], [address] Comprehensive Metabolic Profil Normal 133-145 [facility] Comment on above: Order Comment: 546.1 Result Comment: LABS WERE DONE 12/09/24 DOES NOT NEED REPEATED PER NURSE Performed By: #### L 500.4050, L100.0500 #### [facility] [address] [place], [address] Basic Metabolic Profile (BMP )on 12-09-2024 BUN/CRE 21.8 RATIO High 10-20 [facility] Comment on above: Order Comment: 546.1 Performed By: #### L 500.2500, L100.0500 #### [facility] [address] [place], [address] Calcium [Mass/Vol] 8.8 mg/dL Normal 7.6-11.0 [facility] Comment on above: Order Comment: 546.1 Performed By: #### L 500.2500, L100.0500 #### [facility] [address] [place], [address] Chloride [Moles/Vol] 101 mmol/L Normal 98-108 [facility] Comment on above: Order Comment: 546.1 Performed By: #### L 500.2500, L100.0500 #### [facility] [address] [place], [address] CO2 [Moles/Vol] 23.2 mmol/L Normal 21.0-32.0 [facility] Comment on above: Order Comment: 546.1 Performed By: #### L 500.2500, L100.0500 #### [facility] [address] [place], [address] Creatinine [Mass/Vol] 0.86 mg/dL Normal 0.70-1.20 [facility] Comment on above: Order Comment: 546.1 Performed By: #### L 500.2500, L100.0500 #### [facility] [address] [place], [address] GAP 11 Normal 5-15 [facility] Comment on above: Order Comment: 546.1 Performed By: #### L 500.2500, L100.0500 #### [facility] [address] [place], [address] GFR/1.73 sq M.predicted among non-blacks MDRD (S/P/Bld) [Vol rate/Area] 65 mL/min/{1.73_m2} Normal >60 [facility] Comment on above: Order Comment: 546.1 Result Comment: mL/m in/1.73m2 CKD-EPI Creatinine Equation (2020) Performed By: #### L 500.2500, L100.0500 #### [facility] [address] [place], [address] Glucose [Mass/Vol] 78 mg/dL Normal 70-99 [facility] Comment on above: Order Comment: 546.1 Performed By: #### L 500.2500, L100.0500 #### [facility] [address] [place], [address] Potassium [Moles/Vol] 4.3 mmol/L Normal 3.3-5.1 [facility] Comment on above: Order Comment: 546.1 Performed By: #### L 500.2500, L100.0500 #### [facility] [address] [place], [address] Sodium [Moles/Vol] 135 mmol/L Normal 133-145 [facility] Comment on above: Order Comment: 546.1 Performed By: #### L 500.2500, L100.0500 #### [facility] [address] [place], [address] Urea nitrogen [Mass/Vol] 19 mg/dL Normal 4-19 [facility] Comment on above: Order Comment: 546.1 Performed By: #### L 500.2500, L100.0500 #### [facility] [address] [place], [address] CBC-Complete Blood Cnt No Di ffon 12-09-2024 Erythrocyte distribution width (RBC) [Ratio] 16.4 % High 11.6-14.6 [facility] Comment on above: Order Comment: 546.1 Performed By: #### L 500.2500, L100.0500 #### [facility] [address] [place], [address] Hematocrit (Bld) [Volume fraction] 37.6 % Normal 37-47 [facility] Comment on above: Order Comment: 546.1 Performed By: #### L 500.2500, L100.0500 #### [facility] [address] [place], [address] Hemoglobin (Bld) [Mass/Vol] 12.5 g/dL Normal 12.0-15.0 [facility] Comment on above: Order Comment: 546.1 Performed By: #### L 500.2500, L100.0500 #### [facility] [address] [place], [address] MCH (RBC) [Entitic mass] 29.8 pg Normal 27.0-32.0 [facility] Comment on above: Order Comment: 546.1 Performed By: #### L 500.2500, L100.0500 #### [facility] [address] [place], [address] MCHC (RBC) [Mass/Vol] 33.2 g/dL Normal 32-36 [facility] Comment on above: Order Comment: 546.1 Performed By: #### L 500.2500, L100.0500 #### [facility] [address] [place], [address] MCV (RBC) [Entitic vol] 89.5 fL Normal 81-99 [facility] Comment on above: Order Comment: 546.1 Performed By: #### L 500.2500, L100.0500 #### [facility] [address] [place], [address] Platelet mean volume (Bld) [Entitic vol] 10.5 fL Normal 6.2-12.0 [facility] Comment on above: Order Comment: 546.1 Performed By: #### L 500.2500, L100.0500 #### [facility] [address] [place], [address] Platelets (Bld) [#/Vol] 345 10*3/uL Normal 150-450 [facility] Comment on above: Order Comment: 546.1 Performed By: #### L 500.2500, L100.0500 #### [facility] [address] [place], [address] RBC (Bld) [#/Vol] 4.20 10*6/uL Normal 4.2-5.4 [facility] Comment on above: Order Comment: 546.1 Performed By: #### L 500.2500, L100.0500 #### [facility] [address] [place], [address] RDW SD 53.6 fl High 35.1-43.9 [facility] Comment on above: Order Comment: 546.1 Performed By: #### L 500.2500, L100.0500 #### [facility] [address] [place], [address] WBC (Bld) [#/Vol] 9.3 10*3/uL Normal 4.4-11.0 [facility] Comment on above: Order Comment: 546.1 Performed By: #### L 500.2500, L100.0500 #### [facility] [address] [place], [address] CBC-Complete Blood Cnt No Di ffon 09-18-2024 Erythrocyte distribution width (RBC) [Ratio] 15.3 % High 11.6-14.6 [facility] Comment on above: Order Comment: 546 Performed By: #### L 501.9985, L500.4050, L500.4100, L506.1001, L100.0500 #### [facility] [address] [place], [address] Hematocrit (Bld) [Volume fraction] 42.2 % Normal 37-47 [facility] Comment on above: Order Comment: 546 Performed By: #### L 501.9985, L500.4050, L500.4100, L506.1001, L100.0500 #### [facility] [address] [place], [address] Hemoglobin (Bld) [Mass/Vol] 13.9 g/dL Normal 12.0-15.0 [facility] Comment on above: Order Comment: 546 Performed By: #### L 501.9985, L500.4050, L500.4100, L506.1001, L100.0500 #### [facility] [address] [place], [address] MCH (RBC) [Entitic mass] 30.0 pg Normal 27.0-32.0 [facility] Comment on above: Order Comment: 546 Performed By: #### L 501.9985, L500.4050, L500.4100, L506.1001, L100.0500 #### [facility] [address] [place], [address] MCHC (RBC) [Mass/Vol] 32.9 g/dL Normal 32-36 [facility] Comment on above: Order Comment: 546 Performed By: #### L 501.9985, L500.4050, L500.4100, L506.1001, L100.0500 #### [facility] [address] [place], [address] MCV (RBC) [Entitic vol] 90.9 fL Normal 81-99 [facility] Comment on above: Order Comment: 546 Performed By: #### L 501.9985, L500.4050, L500.4100, L506.1001, L100.0500 #### [facility] [address] [place], [address] Platelet mean volume (Bld) [Entitic vol] 10.8 fL Normal 6.2-12.0 [facility] Comment on above: Order Comment: 546 Performed By: #### L 501.9985, L500.4050, L500.4100, L506.1001, L100.0500 #### [facility] [address] [place], [address] Platelets (Bld) [#/Vol] 337 10*3/uL Normal 150-450 [facility] Comment on above: Order Comment: 546 Performed By: #### L 501.9985, L500.4050, L500.4100, L506.1001, L100.0500 #### [facility] [address] [place], [address] RBC (Bld) [#/Vol] 4.64 10*6/uL Normal 4.2-5.4 [facility] Comment on above: Order Comment: 546 Performed By: #### L 501.9985, L500.4050, L500.4100, L506.1001, L100.0500 #### [facility] [address] [place], [address] RDW SD 50.5 fl High 35.1-43.9 [facility] Comment on above: Order Comment: 546 Performed By: #### L 501.9985, L500.4050, L500.4100, L506.1001, L100.0500 #### [facility] [address] [place], [address] WBC (Bld) [#/Vol] 9.6 10*3/uL Normal 4.4-11.0 [facility] Comment on above: Order Comment: 546 Performed By: #### L 501.9985, L500.4050, L500.4100, L506.1001, L100.0500 #### [facility] [address] [place], [address] Comprehensive Metabolic Prof [facility] 09-18-2024 Albumin [Mass/Vol] 3.4 g/dL Normal 3.4-4.8 [facility] Comment on above: Order Comment: 546 Performed By: #### L 501.9985, L500.4050, L500.4100, L506.1001, L100.0500 #### [facility] [address] [place], [address] Albumin/Globulin [Mass ratio] 1.4 {ratio} Normal 0.9-2.4 [facility] Comment on above: Order Comment: 546 Performed By: #### L 501.9985, L500.4050, L500.4100, L506.1001, L100.0500 #### [facility] [address] [place], [address] ALK PHOS 43 U/L Normal 35-104 [facility] Comment on above: Order Comment: 546 Performed By: #### L 501.9985, L500.4050, L500.4100, L506.1001, L100.0500 #### [facility] [address] [place], [address] ALT [Catalytic activity/Vol] 9 U/L Normal <=34 [facility] Comment on above: Order Comment: 546 Performed By: #### L 501.9985, L500.4050, L500.4100, L506.1001, L100.0500 #### [facility] [address] [place], [address] AST [Catalytic activity/Vol] 20 U/L Normal <=31 [facility] Comment on above: Order Comment: 546 Performed By: #### L 501.9985, L500.4050, L500.4100, L506.1001, L100.0500 #### [facility] [address] [place], [address] Bilirubin [Mass/Vol] 0.37 mg/dL Normal 0.00-1.30 [facility] Comment on above: Order Comment: 546 Performed By: #### L 501.9985, L500.4050, L500.4100, L506.1001, L100.0500 #### [facility] [address] [place], [address] BUN/CRE 27.9 RATIO High 10-20 [facility] Comment on above: Order Comment: 546 Performed By: #### L 501.9985, L500.4050, L500.4100, L506.1001, L100.0500 #### [facility] [address] [place], [address] Calcium [Mass/Vol] 8.8 mg/dL Normal 7.6-11.0 [facility] Comment on above: Order Comment: 546 Performed By: #### L 501.9985, L500.4050, L500.4100, L506.1001, L100.0500 #### [facility] [address] [place], [address] Chloride [Moles/Vol] 108 mmol/L Normal 98-108 [facility] Comment on above: Order Comment: 546 Performed By: #### L 501.9985, L500.4050, L500.4100, L506.1001, L100.0500 #### [facility] [address] [place], [address] CO2 [Moles/Vol] 23.5 mmol/L Normal 21.0-32.0 [facility] Comment on above: Order Comment: 546 Performed By: #### L 501.9985, L500.4050, L500.4100, L506.1001, L100.0500 #### [facility] [address] [place], [address] Creatinine [Mass/Vol] 0.82 mg/dL Normal 0.70-1.20 [facility] Comment on above: Order Comment: 546 Performed By: #### L 501.9985, L500.4050, L500.4100, L506.1001, L100.0500 #### [facility] [address] [place], [address] GAP 10 Normal 5-15 [facility] Comment on above: Order Comment: 546 Performed By: #### L 501.9985, L500.4050, L500.4100, L506.1001, L100.0500 #### [facility] [address] [place], [address] GFR/1.73 sq M.predicted among non-blacks MDRD (S/P/Bld) [Vol rate/Area] 69 mL/min/{1.73_m2} Normal >60 [facility] Comment on above: Order Comment: 546 Result Comment: mL/m in/1.73m2 CKD-EPI Creatinine Equation (2020) Performed By: #### L 501.9985, L500.4050, L500.4100, L506.1001, L100.0500 #### [facility] [address] [place], [address] Globulin (S) [Mass/Vol] 2.5 g/dL Normal 2.2-4.2 [facility] Comment on above: Order Comment: 546 Performed By: #### L 501.9985, L500.4050, L500.4100, L506.1001, L100.0500 #### [facility] [address] [place], [address] Glucose [Mass/Vol] 88 mg/dL Normal 70-99 [facility] Comment on above: Order Comment: 546 Performed By: #### L 501.9985, L500.4050, L500.4100, L506.1001, L100.0500 #### [facility] [address] [place], [address] Potassium [Moles/Vol] 4.1 mmol/L Normal 3.3-5.1 [facility] Comment on above: Order Comment: 546 Performed By: #### L 501.9985, L500.4050, L500.4100, L506.1001, L100.0500 #### [facility] [address] [place], [address] Sodium [Moles/Vol] 141 mmol/L Normal 133-145 [facility] Comment on above: Order Comment: 546 Performed By: #### L 501.9985, L500.4050, L500.4100, L506.1001, L100.0500 #### [facility] [address] [place], [address] T PROT 5.8 g/dL Low 5.9-8.4 [facility] Comment on above: Order Comment: 546 Performed By: #### L 501.9985, L500.4050, L500.4100, L506.1001, L100.0500 #### [facility] [address] [place], [address] Urea nitrogen [Mass/Vol] 23 mg/dL High 4-19 [facility] Comment on above: Order Comment: 546 Performed By: #### L 501.9985, L500.4050, L500.4100, L506.1001, L100.0500 #### [facility] [address] [place], [address] Hemoglobin A1con 09-18-2024 HbA1c (Bld) [Mass fraction] 5.5 % Normal <=5.6 [facility] Comment on above: Order Comment: 546 Result Comment: Norm al < 5.7 % Prediabetic 5.7 - 6.4 % Diabetic >or= 6.5 % Please note range changes. Performed By: #### L 501.9985, L500.4050, L500.4100, L506.1001, L100.0500 #### [facility] [address] [place], [address] Lipid Profileon 09-18-2024 CHOL:HDL 2.43 Normal [facility] Comment on above: Order Comment: 546 Performed By: #### L 501.9985, L500.4050, L500.4100, L506.1001, L100.0500 #### [facility] [address] [place], [address] Cholesterol [Mass/Vol] 136 mg/dL Normal <=200 [facility] Comment on above: Order Comment: 546 Result Comment: Chol esterol level, Desirable <200 mg/dL Borderline high cholesterol 200-239 mg/dL High cholesterol >=240 mg/dL Recommendations of the NCEP Adult Treatment Panel for the following risk-cutoff thresholds for the [place] population. Performed By: #### L 501.9985, L500.4050, L500.4100, L506.1001, L100.0500 #### [facility] [address] [place], [address] Cholesterol in HDL [Mass/Vol] 56 mg/dL Normal [facility] Comment on above: Order Comment: 546 Result Comment: Lyric onal Cholesterol Education Program (NCEP) guidelines: <40 mg/dL: Low HDL-cholesterol (major risk factor for CHD) >= 60 mg/dL: High HDL-cholesterol (negative risk factor for CHD) HDL-cholesterol is affected by a number of factors, e.g. smoking, exercise, hormones, sex and age. Performed By: #### L 501.9985, L500.4050, L500.4100, L506.1001, L100.0500 #### [facility] [address] [place], [address] Cholesterol in LDL [Mass/Vol] 67 mg/dL Normal [facility] Comment on above: Order Comment: 546 Result Comment: Bord vnfnxi=876-411 mg/dL Higher Fyob=666 mg/dL or greater Performed By: #### L 501.9985, L500.4050, L500.4100, L506.1001, L100.0500 #### [facility] [address] [place], [address] Cholesterol in VLDL [Mass/Vol] 14 mg/dL Normal 5-40 [facility] Comment on above: Order Comment: 546 Performed By: #### L 501.9985, L500.4050, L500.4100, L506.1001, L100.0500 #### [facility] [address] [place], [address] Triglyceride [Mass/Vol] 68 mg/dL Normal [facility] Comment on above: Order Comment: 546 Result Comment: The drugs N-Acetylcysteine and Metamizole may falsely depress this assay. Normal range: <150 mg/dL Borderline High: 150-199 mg/dL High: 200-499 mg/dL Very High: >500 mg/dL Performed By: #### L 501.9985, L500.4050, L500.4100, L506.1001, L100.0500 #### [facility] [address] [place], [address] Vitamin D,25 Hydroxyon 09-18 Vitamin D 25-OH 52.7 ng/mL Normal 30-100 [facility] Comment on above: Order Comment: 546 Result Comment: Alicia min D Status Deficiency: <20 ng/mL (50nmol/L) Insufficiency: 20-30 ng/mL (50-75 nmol/L) Sufficiency: 30-100 ng/mL (75-250 nmol/L) Toxicity: >100 ng/mL (>250 nmol/L) Performed By: #### L 501.9985, L500.4050, L500.4100, L506.1001, L100.0500 #### [facility] [address] [place], [address] US DOPPLER CAROTIDon 020 US DOPPLER CAROTID Patient Info Name: NA GOOD Age: 84 years : 1935 Gender: Female Exam Date: 02/03/2020 2:02 PM Site Location: [facility] Patient Status: Outpatient [employer] Sales Representative: Tatyana Olmos, VILMA, RDMS (AB), RVT Referring Physician: RUBIN CHIRINOS ; Indications R09.89 - Other specified symptoms and signs involving the circulatory and respiratory systems Procedure Description [id number] Duplex examination using B-mode, color and spectral [...] Morris DO on 02/03/2020 03:27 PM Normal [facility] US DOPPLER CAROTID Patient Info Name: NA GOOD Age: 84 years : 1935 Gender: Female Exam Date: 02/03/2020 2:02 PM Site Location: [facility] Patient Status: Outpatient [employer] Sales Representative: Tatyana Olmos, VILMA, RDMS (AB), RVT Referring Physician: RUBIN CHIRINOS ; Indications R09.89 - Other specified symptoms and signs involving the circulatory and respiratory systems Procedure Description [id number] Duplex examination using B-mode, color and spectral [...] SunFeb 03, 2020 3:27:40 PM EDT Normal [facility] Patient Info Name: NA GOOD Age: 84 years : 1935 Gender: Female Exam Date: 02/03/2020 2:02 PM Site Location: [facility] Patient Status: Outpatient [employer] Sales Representative: Tatyana Olmos, VILMA, RDMS (AB), RVT Referring Physician: RUBIN CHIRINOS ; Indications R09.89 - Other specified symptoms and signs involving the circulatory and respiratory systems Procedure Description [id number] Duplex examination using B-mode, color and spectral [...] HAM Morris DO on 02/03/2020 03:27 PM [facility] Interface, Rad In [facility] Xper Echopacs - 02/03/2020 3:27 PM EDT Patient Info Name: NA GOOD Age: 84 years : 1935 Gender: Female Exam Date: 02/03/2020 2:02 PM Site Location: [facility] Patient Status: Outpatient [employer] Supp[employer] Sales Representative: Tatyana Olmos, BS, RDMS (AB), RVT Referring Physician: RUBIN CHIRINOS ; Indications R09.89 - Other specified symptoms and signs involving the circulatory and respiratory systems Procedure Description [id number] Duplex examination using B-mode, color and spectral [...] HAM Morris DO on 02/03/2020 03:27 PM [facility] ECG 12-LEADon 01-13-2019 Atrial Rate [facility] P [place] [facility] P-R Interval [facility] Q-T Interval [facility] Q-T Interval (corrected) [facility] QRS Duration [facility] QTC Calculation (Bezet) [facility] R [place] [facility] T [place] [facility] Ventricular Rate [facility] ECG 12 Leadon 01-15-2018 Atrial Rate Invalid Interpretation Code [facility] P [place] Invalid Interpretation Code [facility] P-R Interval Invalid Interpretation Code [facility] Q-T Interval Invalid Interpretation Code [facility] Q-T Interval (corrected) Invalid Interpretation Code [facility] QRS Duration Invalid Interpretation Code [facility] QTC Calculation (Bezet) Invalid Interpretation Code [facility] R [place] Invalid Interpretation Code [facility] T [place] Invalid Interpretation Code [facility] Ventricular Rate Invalid Interpretation Code [facility] CBC w/o Diffon 12-19-2017 Erythrocyte distribution width Auto Ratio (RBC) 14.2 % Normal 10.0-14.4 [facility] Comment on above: Performed By: #### L IPID, CMET, TSH, CBCWOD ####Unless otherwise noted, all testing performed by [address] [id number]: [id number] Director: Alverto Fitzgerald M.D. Hematocrit Auto Volume Fraction (Bld) 44.2 % Normal 34.4-44.8 [facility] Comment on above: Performed By: #### L IPID, CMET, TSH, CBCWOD ####Unless otherwise noted, all testing performed by [address] [id number]: [id number] Director: Alverto Fitzgerald M.D. Hemoglobin mass conc (Bld) 14.6 g/dL Normal 11.6-15.4 [facility] Comment on above: Performed By: #### L IPID, CMET, TSH, CBCWOD ####Unless otherwise noted, all testing performed by [address] [phone]: [id number] Director: Alverto Fitzgerald M.D. MCH Auto Entitic mass (RBC) 29.4 pg Normal 27.9-33.9 [facility] Comment on above: Performed By: #### L IPID, CMET, TSH, CBCWOD ####Unless otherwise noted, all testing performed by [address] [id number]: [id number] Director: Alverto Fitzgerald M.D. MCHC Auto mass conc (RBC) 33.0 g/dL Low 33.1-35.1 [facility] Comment on above: Performed By: #### L IPID, CMET, TSH, CBCWOD ####Unless otherwise noted, all testing performed by [address] [phone]: [id number] Director: Alverto Fitzgerald M.D. MCV Auto Entitic volume (RBC) 89.1 fL Normal 82.6-98.9 [facility] Comment on above: Performed By: #### L IPID, CMET, TSH, CBCWOD ####Unless otherwise noted, all testing performed by [address] [id number]: [id number] Director: Alverto Fitzgerald M.D. Platelet mean volume Auto Entitic volume (Bld) 8.6 fL Normal 7.0-10.6 [facility] Comment on above: Performed By: #### L IPID, CMET, TSH, CBCWOD ####Unless otherwise noted, all testing performed by [address], [place] [phone]: [id number] Director: Alverto Fitzgerald M.D. Platelets Auto #/vol (Bld) 349 K/mcL Normal 162-402 [facility] Comment on above: Performed By: #### L IPID, CMET, TSH, CBCWOD ####Unless otherwise noted, all testing performed by [address] [phone]: [id number] Director: Alverto Fitzgerald M.D. RBC Auto #/vol (Bld) 4.96 M/mcL Normal 3.7-5.0 [facility] Comment on above: Performed By: #### L IPID, CMET, TSH, CBCWOD ####Unless otherwise noted, all testing performed by [address] [id number]: [id number] Director: Alverto Fitzgerald M.D. WBC Auto #/vol (Bld) 9.0 K/mcL Normal 3.4-10.6 [facility] Comment on above: Performed By: #### L IPID, CMET, TSH, CBCWOD ####Unless otherwise noted, all testing performed by [address] [phone]: [id number] Director: Alverto Fitzgerald M.D. Comprehensive Metabolic Pane [facility] 12-19-2017 Albumin mass conc 3.7 g/dL Normal 3.2-5.2 [facility] Comment on above: Performed By: #### L IPID, CMET, TSH, CBCWOD ####Unless otherwise noted, all testing performed by [address] [phone]: [id number] Director: Alverto Fitzgerald M.D. ALP enzyme act/vol 54 U/L Normal 40-150 [facility] Comment on above: Performed By: #### L IPID, CMET, TSH, CBCWOD ####Unless otherwise noted, all testing performed by [address] [phone]: [id number] Director: Alverto Fitzgerald M.D. ALT enzyme act/vol 15 U/L Normal 14-65 [facility] Comment on above: Result Comment: This test result might be falsely depressed or falsely elevated onsamples drawn from patients taking Sulfasalazine and Sulfapyridine.Venipuncture should occur prior to taking either of these drugs. Performed By: #### L IPID, CMET, TSH, CBCWOD ####Unless otherwise noted, all testing performed by [address] [phone]: [id number] Director: Alverto Fitzgerald M.D. AST enzyme act/vol 15 U/L Normal 0-45 [facility] Comment on above: Result Comment: This test result might be falsely depressed or falsely elevated onsamples drawn from patients taking Sulfasalazine and Sulfapyridine.Venipuncture should occur prior to taking either of these drugs. Performed By: #### L IPID, CMET, TSH, CBCWOD ####Unless otherwise noted, all testing performed by [address] [phone]: [id number] Director: Alverto Fitzgerald M.D. Bilirubin mass conc 0.5 mg/dL Normal 0.3-1.2 [facility] Comment on above: Performed By: #### L IPID, CMET, TSH, CBCWOD ####Unless otherwise noted, all testing performed by [address] [phone]: [id number] Director: Alverto Fitzgerald M.D. Calcium mass conc 8.9 mg/dL Normal 8.4-10.2 [facility] Comment on above: Performed By: #### L IPID, CMET, TSH, CBCWOD ####Unless otherwise noted, all testing performed by [address] [id number]: [id number] Director: Alverto Fitzgerald M.D. Chloride molar conc 106 mmol/L Normal 98-108 [facility] Comment on above: Performed By: #### L IPID, CMET, TSH, CBCWOD ####Unless otherwise noted, all testing performed by [address] [id number]: [id number] Director: Alverto Fitzgerald M.D. CO2 molar conc 29 mmol/L Normal 21-32 [facility] Comment on above: Performed By: #### L IPID, CMET, TSH, CBCWOD ####Unless otherwise noted, all testing performed by [address] [phone]: [id number] Director: Alverto Fitzgerald M.D. Creatinine mass conc 0.76 mg/dL Normal 0.60-1.20 [facility] Comment on above: Performed By: #### L IPID, CMET, TSH, CBCWOD ####Unless otherwise noted, all testing performed by [address], [place] [phone]: [id number] Director: Alverto Fitzgerald M.D. GFR/1.73 sq M predicted among blacks MDRD vol rate/area (S/P/Bld) mL/min/{1.73_m2} Normal [facility] Comment on above: Result Comment: Afri can Hungarian GFR Calc Performed By: #### L IPID, CMET, TSH, CBCWOD ####Unless otherwise noted, all testing performed by [address] [phone]: [id number] Director: Alverto Fitzgerald M.D. GFR/1.73 sq M predicted among non-blacks MDRD vol rate/area (S/P/Bld) mL/min/{1.73_m2} Normal [facility] Comment on above: Result Comment: Non- [...] ####Unless otherwise noted, all testing performed by [address] [phone]: [id number] Director: Alverto Fitzgerald M.D. Glucose mass conc 84 mg/dL Normal 70-99 [facility] Comment on above: Result Comment: This test result might be falsely depressed or falsely elevated onsamples drawn from patients taking Sulfasalazine and Sulfapyridine.Venipuncture should occur prior to taking either of these drugs. Performed By: #### L IPID, CMET, TSH, CBCWOD ####Unless otherwise noted, all testing performed by [address] [phone]: [id number] Director: Alverto Fitzgearld M.D. Potassium molar conc 4.1 mmol/L Normal 3.5-5.1 [facility] Comment on above: Performed By: #### L IPID, CMET, TSH, CBCWOD ####Unless otherwise noted, all testing performed by [address] [phone]: [id number] Director: Alverto Fitzgerald M.D. Protein mass conc 7.2 g/dL Normal 6.0-8.0 [facility] Comment on above: Performed By: #### L IPID, CMET, TSH, CBCWOD ####Unless otherwise noted, all testing performed by [address] [phone]: [id number] Director: Alverto Fitzgerald M.D. Sodium molar conc 142 mmol/L Normal 135-145 [facility] Comment on above: Performed By: #### L IPID, CMET, TSH, CBCWOD ####Unless otherwise noted, all testing performed by [address] [phone]: [id number] Director: Alverto Fitzgerald M.D. Urea nitrogen mass conc 19 mg/dL Normal 8-25 [facility] Comment on above: Performed By: #### L IPID, CMET, TSH, CBCWOD ####Unless otherwise noted, all testing performed by [address] [phone]: [id number] Director: Alverto Fitzgerald M.D. Lipid Panelon 12-19-2017 Cholesterol in HDL mass conc 68 mg/dL High 40-59 [facility] Comment on above: Performed By: #### L IPID, CMET, TSH, CBCWOD ####Unless otherwise noted, all testing performed by [address] [phone]: [id number] Director: Alverto Fitzgerald M.D. Cholesterol in LDL mass conc 150 mg/dL Normal 10-150 [facility] Comment on above: Performed By: #### L IPID, CMET, TSH, CBCWOD ####Unless otherwise noted, all testing performed by [address] [phone]: [id number] Director: Alverto Fitzgerald M.D. Cholesterol in VLDL mass conc 24 mg/dL Normal 5-40 [facility] Comment on above: Performed By: #### L IPID, CMET, TSH, CBCWOD ####Unless otherwise noted, all testing performed by [address] [phone]: [id number] Director: Alverto Fitzgerald M.D. Cholesterol mass conc 243 mg/dL High 100-199 [facility] Comment on above: Performed By: #### L IPID, CMET, TSH, CBCWOD ####Unless otherwise noted, all testing performed by [address] [phone]: [id number] Director: Alverto Fitzgerald M.D. Cholesterol.total/Cho lesterol in HDL mass ratio 3.6 {ratio} Normal 3.2-5.0 [facility] Comment on above: Result Comment: Robert harley Coronary Heart Disease Risk Factor (CHDRF):Average risk= 4.41/2 Average risk= 3.32 times Average risk= 7.1 Performed By: #### L IPID, CMET, TSH, CBCWOD ####Unless otherwise noted, all testing performed by [address] [phone]: [id number] Director: Alverto Fitzgerald M.D. Triglyceride mass conc 121 mg/dL High 25-120 [facility] Comment on above: Performed By: #### L IPID, CMET, TSH, CBCWOD ####Unless otherwise noted, all testing performed by [address] [phone]: [id number] Director: Alverto Fitzgerald M.D. Microalbumin, Ur Random Pane epifanio 12-19-2017 Creatinine, Urine Random 124.00 mg/dL Normal [facility] Comment on above: Result Comment: No e stablished reference range. Performed By: #### He CHAU ####Unless otherwise noted, all testing performed by [address] [phone]: [id number] Director: Alverto Fitzgerald M.D. MIALB/Creatinine Ratio 9 Normal 0.0-25.0 [facility] Comment on above: Performed By: #### M KANDI ####Unless otherwise noted, all testing performed by [address] [phone]: [id number] Director: Alverto Fitzgerald M.D. Microalbumin, Urine Random 1.1 mg/dL Normal 0.0-1.8 [facility] Comment on above: Performed By: #### M IALBURR ####Unless otherwise noted, all testing performed by [address] [phone]: [id number] Director: Alverto Fitzgerald M.D. TSHon 12-19-2017 T4 free mass conc 1.1 ng/dL Normal 0.7-1.7 [facility] Comment on above: Result Comment: Samp les from patients routinely receiving high dose biotin therapy(100-300 mg/day) may show falsely increased results. Please correlateclinically. Performed By: #### L IPID, CMET, TSH, CBCWOD ####Unless otherwise noted, all testing performed by [address] [phone]: [id number] Director: Alverto Fitzgerald M.D. Thyrotropin Qn 0.22 uIU/mL Low 0.320-5.000 [facility] Comment on above: Result Comment: Samp les from patients routinely receiving high dose biotin therapy(100-300 mg/day) may show falsely decreased results. Please correlateclinically. Performed By: #### L IPID, CMET, TSH, CBCWOD ####Unless otherwise noted, all testing performed by [address] [phone]: [id number] Director: Alverto Fitzgerald M.D. CBC and Differentialon 12-19 Basophils 1.1 % Invalid Interpretation Code [facility] Basophils 0.1 K/mcL Invalid Interpretation Code 0 - 0.2 [facility] Eosinophils 0.3 K/mcL Invalid Interpretation Code 0 - 0.5 [facility] Erythrocytes (RBC) 4.79 M/mcL Invalid Interpretation Code 3.7 - 5.0 [facility] Hematocrit (HCT) 42.7 % Invalid Interpretation Code 34.4 - 44.8 % [facility] Hemoglobin (HGB) 14.1 g/dL Invalid Interpretation Code 11.6 - 15.4 g/dL [facility] Lymphocytes 2.4 K/mcL Invalid Interpretation Code 1.0 - 3.7 [facility] MCH 29.5 pg Invalid Interpretation Code 27.9 - 33.9 pg [facility] MCHC 33.1 g/dL Invalid Interpretation Code 33.1 - 35.1 g/dL [facility] MCV 89.2 fL Invalid Interpretation Code 82.6 - 98.9 [facility] Monocytes 0.6 K/mcL Invalid Interpretation Code 0.1 - 0.6 [facility] Neutrophils 4.4 K/mcL Invalid Interpretation Code 1.2 - 6.9 [facility] Platelet mean volume (PMV) 8.7 fL Invalid Interpretation Code 7.0 - 10.6 [facility] Platelets 278 K/mcL Invalid Interpretation Code 162 - 402 [facility] RDW-CA 14.3 % Invalid Interpretation Code 10 - 14.4 % [facility] Segmented Neut 56.5 % Invalid Interpretation Code [facility] T8 suppressor/100 cells 4.2 10*3/uL Invalid Interpretation Code [facility] T8 suppressor/100 cells 30.3 10*3/uL Invalid Interpretation Code [facility] T8 suppressor/100 cells 7.9 10*3/uL Invalid Interpretation Code [facility] WBC (Leukocytes) 7.8 K/mcL Invalid Interpretation Code 3.4 - 10.6 [facility] Comprehensive Metabolic Pane epifanio 12-19-2016 Alanine aminotransferase (ALT) 20 U/L Invalid Interpretation Code 14 - 65 U/L [facility] Albumin 3.6 g/dL Invalid Interpretation Code 3.2 - 5.2 g/dL [facility] Alkaline phosphatase (ALP) 39 U/L Low 40 - 150 U/L [facility] Aspartate aminotransferase (AST) 14 U/L Invalid Interpretation Code 0 - 45 U/L [facility] Calcium 9.4 mg/dL Invalid Interpretation Code 8.4 - 10.2 mg/dL [facility] Chloride 107 mmol/L Invalid Interpretation Code 98 - 108 mmol/L [facility] CO2 30 mmol/L Invalid Interpretation Code 21 - 32 mmol/L [facility] Creatinine 0.72 mg/dL Invalid Interpretation Code 0.6 - 1.2 mg/dL [facility] eGFR (black) mL/min/{1.73_m2} Invalid Interpretation Code ml/min/1.73s q.m [facility] eGFR (non-black) mL/min/{1.73_m2} Invalid Interpretation Code ml/min/1.73s q.m [facility] Glucose 86 mg/dL Invalid Interpretation Code 70 - 99 mg/dL [facility] Potassium 4.3 mmol/L Invalid Interpretation Code 3.5 - 5.1 mmol/L [facility] Protein 6.8 g/dL Invalid Interpretation Code 6 - 8 g/dL [facility] Sodium 145 mmol/L Invalid Interpretation Code 135 - 145 mmol/L [facility] Urea nitrogen 17 mg/dL Invalid Interpretation Code 8 - 25 mg/dL [facility] Urine, bilirubin presence 0.6 mg/dL Invalid Interpretation Code 0.3 - 1.2 mg/dL [facility] Lipid Panelon 12-19-2016 Cholesterol 242 mg/dL High 100 - 199 mg/dL [facility] Cholesterol to HDL Ratio 3.2 {ratio} Invalid Interpretation Code 3.2 - 5.0 [facility] HDL Cholesterol 76 mg/dL High 40 - 59 mg/dL [facility] Interpretation and review of laboratory results Abnormal Invalid Interpretation Code [facility] LDL Cholesterol 150 mg/dL Invalid Interpretation Code 10 - 150 mg/dL [facility] Triglyceride 85 mg/dL Invalid Interpretation Code 25 - 120 mg/dL [facility] VLDL 17 mg/dL Invalid Interpretation Code 5 - 40 mg/dL [facility] Vital Signs Date Time Vital Sign Value Performing Clinician Facility 07-28-2020 13:54-0400 BMI (Body Mass Index) 22.43 kg/m2 Davidcleveland Ludwig [facility] 07-28-2020 13:54-0400 Body Temperature 98.71 [degF] David Ludwig [facility] 07-28-2020 13:54-0400 Body weight 57.42 kg Davidcleveland Ludwig [facility] 07-28-2020 13:54-0400 BP Diastolic 82 mm[Hg] David Ludwig [facility] 07-28-2020 13:54-0400 BP Systolic 139 mm[Hg] David Ludwig [facility] 07-28-2020 13:54-0400 Height 160 cm David Ludwig [facility] 07-28-2020 13:54-0400 Pulse (Heart Rate) 84 /min David Ludwig [facility] 07-28-2020 13:54-0400 Pulse Oximetry 97 % David Ludwig [facility] 01-15-2020 14:24-0400 BMI (Body Mass Index) 22.5 kg/m2 Rubin Chirinos [facility] 01-15-2020 14:24-0400 Body weight 57.61 kg Rubin Chirinos [facility] 01-15-2020 14:24-0400 BP Diastolic 78 mm[Hg] Rubin Chirinos [facility] 01-15-2020 14:24-0400 BP Systolic 136 mm[Hg] Rubinyara Chirinos [facility] 01-15-2020 14:24-0400 Height 160 cm Rubinyara Chirinos [facility] 01-15-2020 14:24-0400 Pulse (Heart Rate) 64 /min uRbin Chirinos [facility] 01-15-2020 14:24-0400 Pulse Oximetry 97 % Rubin Chirinos [facility] 12-08-2019 11:20-0400 BMI (Body Mass Index) 22.5 kg/m2 David Ludwig [facility] 12-08-2019 11:20-0400 Body Temperature 97.81 [degF] David Ludwig [facility] 12-08-2019 11:20-0400 Body weight 57.61 kg David Ludwig [facility] 12-08-2019 11:20-0400 BP Diastolic 70 mm[Hg] David Ludwig [facility] 12-08-2019 11:20-0400 BP Systolic 133 mm[Hg] David Ludwig [facility] 12-08-2019 11:20-0400 Height 160 cm David Ludwig [facility] 12-08-2019 11:20-0400 Pulse (Heart Rate) 98 /min David Ludwig [facility] 06-16-2019 09:58-0500 BP Diastolic 74 mm[Hg] David Ludwig [facility] 06-16-2019 09:58-0500 BP Systolic 130 mm[Hg] David Ludwig [facility] 06-16-2019 09:58-0500 Pulse (Heart Rate) 82 /min David Ludwig [facility] 06-16-2019 09:58-0500 Pulse Oximetry 97 % David Ludwig [facility] 06-16-2019 09:58-0500 Respiratory Rate 18 /min David Ludwig [facility] 06-16-2019 09:54-0500 BMI (Body Mass Index) 23.13 kg/m2 David Ludwig [facility] 06-16-2019 09:54-0500 Body Temperature 97.9 [degF] David Ludwig [facility] 06-16-2019 09:54-0500 Body weight 59.24 kg David Ludwig [facility] 06-16-2019 09:54-0500 Height 160 cm David Ludwig [facility] 01-13-2019 11:15-0400 BMI (Body Mass Index) 22.14 kg/m2 Rubin Chirinos [facility] 01-13-2019 11:15-0400 Body weight 56.7 kg Rubin Chirinos [facility] 01-13-2019 11:15-0400 BP Diastolic 71 mm[Hg] Rubinyara Chirinos [facility] 01-13-2019 11:15-0400 BP Systolic 140 mm[Hg] Rubinyara Chirinos [facility] 01-13-2019 11:15-0400 Height 160 cm Rubinyara Chirinos [facility] 01-13-2019 11:15-0400 Pulse (Heart Rate) 80 /min Rubin Mandeep [facility] 01-13-2019 11:15-0400 Pulse Oximetry 99 % Rubin Chirinos [facility] 12-04-2018 09:08-0400 BMI (Body Mass Index) 22.43 kg/m2 Ceasar Arce [facility] 12-04-2018 09:08-0400 Body weight 57.42 kg Ceasar Oviedoo [facility] 12-04-2018 09:08-0400 BP Diastolic 80 mm[Hg] Ceasar Dmitryhodaniellao [facility] 12-04-2018 09:08-0400 BP Systolic 167 mm[Hg] Ceasar Andreshodaniellao [facility] 12-04-2018 09:08-0400 Height 160 cm Ceasar Oivedoo [facility] 12-04-2018 09:08-0400 Pulse (Heart Rate) 74 /min Ceasardario Arce [facility] 12-04-2018 09:08-0400 Pulse Oximetry 98 % Ceasar Arce [facility] 06-26-2018 11:00-0500 BP Diastolic 77 mm[Hg] David Ludwig [facility] 06-26-2018 11:00-0500 BP Systolic 129 mm[Hg] David Ludwig [facility] 06-26-2018 11:00-0500 Pulse (Heart Rate) 66 /min David Ludwig [facility] 06-26-2018 11:00-0500 Pulse Oximetry 96 % David Ludwig [facility] 06-26-2018 10:56-0500 BMI (Body Mass Index) 22.18 kg/m2 David Ludwig [facility] 06-26-2018 10:56-0500 Body Temperature 98.2 [degF] David Ludwig [facility] 06-26-2018 10:56-0500 Height 160 cm David Ludwig [facility] 06-26-2018 10:56-0500 Weight 56.79 kg Davidcleveland Ludwig [facility] 01-15-2018 10:01-0400 BMI (Body Mass Index) 22.32 kg/m2 Escobar [facility] 01-15-2018 10:01-0400 BP Diastolic 80 mm[Hg] [facility] 01-15-2018 10:01-0400 BP Systolic 152 mm[Hg] [facility] 01-15-2018 10:01-0400 Height 160 cm [facility] 01-15-2018 10:01-0400 Pulse (Heart Rate) 81 /min [facility] 01-15-2018 10:01-0400 Pulse Oximetry 98 % Escobar [facility] 01-15-2018 10:01-0400 Weight 57.15 [facility] 12-27-2017 10:27-0400 BMI (Body Mass Index) 22.27 kg/m2 David Ludwig [facility] 12-27-2017 10:27-0400 Body Temperature 97.59 [degF] David Ludwig [facility] 12-27-2017 10:27-0400 BP Diastolic 75 mm[Hg] David Ludwig [facility] 12-27-2017 10:27-0400 BP Systolic 159 mm[Hg] David Ludwig [facility] 12-27-2017 10:270400 Height 160 cm David Ludwig [facility] 12-27-2017 10:27-0400 Pulse (Heart Rate) 82 /min David Ludwig [facility] 12-27-2017 10:27-0400 Pulse Oximetry 97 % David Ludwig [facility] 12-27-2017 10:27-0400 Respiratory Rate 12 /min David Ludwig [facility] 12-27-2017 10:27-0400 Weight 57.02 kg David Ludwig [facility] 06-26-2017 09:46-0500 BMI (Body Mass Index) 23.06 kg/m2 [facility] 06-26-2017 09:46-0500 Body Temperature 98.29 [degF] [facility] 06-26-2017 09:46-0500 BP Diastolic 80 mm[Hg] [facility] 06-26-2017 09:46-0500 BP Systolic 140 mm[Hg] [facility] 06-26-2017 09:46-0500 Height 160 cm [facility] 06-26-2017 09:46-0500 Pulse (Heart Rate) 68 /min [facility] 06-26-2017 09:46-0500 Weight 59.06 kg [facility] 06-20-2017 14:38-0500 BMI (Body Mass Index) 23.03 kg/m2 Ceasar Oviedoo [facility] 06-20-2017 14:38-0500 BP Diastolic 79 mm[Hg] Ceasar [place] [facility] 06-20-2017 14:38-0500 BP Systolic 160 mm[Hg] Ceasar Andreshodaniellao [facility] 06-20-2017 14:38-0500 Height 160 cm Ceasar [place] [facility] 06-20-2017 14:38-0500 Pulse (Heart Rate) 67 /min Ceasar [place] [facility] 06-20-2017 14:38-0500 Pulse Oximetry 99 % Ceasar [place] [facility] 06-20-2017 14:38-0500 Weight 58.97 kg Ceasar Arce [facility] 01-08-2017 10:21-0400 BMI (Body Mass Index) 22.32 kg/m2 Rubin Chirinos [facility] Work Phone: 01-08-2017 10:21-0400 BP Diastolic 85 mm[Hg] Rubin Chirinos [facility] Work Phone: 01-08-2017 10:21-0400 BP Systolic 165 mm[Hg] Rubin Chirinos [facility] Work Phone: 01-08-2017 10:21-0400 Height 160 cm Rubin Chirinos [facility] Work Phone: 01-08-2017 10:21-0400 Pulse (Heart Rate) 64 /min Rubin Chirinos [facility] Work Phone: 01-08-2017 10:21-0400 Pulse Oximetry 97 % Rubin Chirinos [facility] Work Phone: 01-08-2017 10:21-0400 Weight 57.15 kg Rubin Chirinos [facility] Work Phone: 12-13-2016 14:18-0400 BMI (Body Mass Index) 22.44 kg/m2 Ceasar [place]oo [facility] Work Phone: 12-13-2016 14:18-0400 BP Diastolic 81 mm[Hg] Ceasar [place] [facility] Work Phone: 12-13-2016 14:18-0400 BP Systolic 167 mm[Hg] Ceasar [place] [facility] Work Phone: 12-13-2016 14:18-0400 Height 160 cm Ceasar [place] [facility] Work Phone: 12-13-2016 14:18-0400 Pulse (Heart Rate) 69 /min Ceasar Andreshodko [facility] Work Phone: 12-13-2016 14:18-0400 Pulse Oximetry 99 % Ceasar [place] [facility] Work Phone: 12-13-2016 14:18-0400 Weight 57.47 kg Ceasar Arce [facility] Work Phone: Encounters Encounter Date Encounter Type Care Provider Facility Start: 03-02-2025 Evaluation and manag ement of inpatient BISMARK SALES Facility:[facility] Start: 02-25-2025 End: 02-25-2025 ambulatory LIDIA ARMENTA Facility:[facility] Start: 02-24-2025 ambulatory Alexey Deperro OLS Facili ty:[facility] Start: 02-19-2025 ambulatory Alexey Deperro OLS Facili ty:[facility] Start: 02-04-2025 End: 02-04-2025 ambulatory JVOANI COCHRAN Facility:[facility] Start: 01-27-2025 End: 01-29-2025 Evaluation and management of inpatient JOHNSON WATSON Facility:[facility] Start: 01-05-2025 ambulatory Alexey Deperro OLS Facili ty:[facility] Start: 12-29-2024 ambulatory Alexey Deperro OLS Facili ty:[facility] Start: 12-24-2024 End: 12-27-2024 Evaluation and management of inpatient JOHNSON WATSON Facility:[facility] Start: 12-09-2024 ambulatory Alexey Deperro OLS Facili ty:[facility] Start: 09-18-2024 ambulatory Alexey Deperro OLS Facili ty:[facility] Start: 01-14-2021 [facility]: 12-07-2020 [facility] Start: 09-21-2020 End: 09-21-2020 Refill Shante Hargrove LPN [facility] Comment on above: Benign essential hyp ertension; Chronic combined systolic and diastolic congestive heart failure (HCC); Insomnia, unspecified type Start: 07-28-2020 End: 07-28-2020 ambulatory DAVID LUDWIG [facility] Start: 07-28-2020 End: 07-28-2020 Office outpatient visit 25 minutes Davidcleveland Ludwig Work Phone: [facility] Comment on above: Benign essential hyp ertension (Primary Dx); Chronic combined systolic and diastolic congestive heart failure (HCC); Mixed hyperlipidemia Start: 05-07-2020 End: 05-07-2020 Orders Only Alley Lopez Jigar Work Phone: [facility] Start: 02-03-2020 End: 02-04-2020 Patient encounter procedure [facility] Start: 02-03-2020 End: 02-03-2020 Subsequent hospital visit by physician Rubin Chirinos Work Phone: [facility] Comment on above: Bruit of left caroti d artery Start: 01-15-2020 End: 01-15-2020 Office outpatient visit 25 minutes Rubin Chirinos Work Phone: [facility] Comment on above: Bruit of left caroti d artery (Primary Dx); Chronic combined systolic and diastolic congestive heart failure (HCC); Mixed hyperlipidemia; Nonrheumatic aortic valve insufficiency; Benign essential hypertension; Left carotid bruit Start: 12-08-2019 End: 12-08-2019 Patient encounter procedure David Ludwig Work Phone: [facility] Comment on above: General medical exam (Primary Dx); At low risk for fall; Need for vaccination Start: 12-01-2019 End: 12-05-2019 Patient encounter [facility] Start: 06-16-2019 End: 06-16-2019 Office outpatient visit 25 minutes David Ludwig Work Phone: [facility] Comment on above: Benign essential hyp ertension (Primary Dx); Chronic combined systolic and diastolic congestive heart failure (HCC); Mixed hyperlipidemia; Subclinical hypothyroidism; Insomnia, unspecified type Start: 01-13-2019 End: 01-13-2019 Office outpatient visit 25 minutes Rubin Chirinos Work Phone: [facility] Comment on above: Cardiomyopathy, unsp ecified type (HCC) (Primary Dx); Chronic combined systolic and diastolic congestive heart failure (HCC); Mixed hyperlipidemia; Benign essential hypertension Start: 12-04-2018 End: 12-04-2018 Clinical Support Kriss Marcelo [facility] Comment on above: Sensorineural hearin g loss, bilateral (Primary Dx); Sudden hearing loss, unspecified laterality Start: 12-04-2018 End: 12-04-2018 Office outpatient visit 25 minutes Ceasar Maddoxkatiemarcus Work Phone: [facility] Comment on above: Hearing loss due to cerumen impaction, bilateral (Primary Dx); Sensorineural hearing loss, bilateral Start: 09-26-2018 End: 09-26-2018 Patient encounter procedure Eve Yap [facility] Comment on above: Medicare Wellness Vi sit (VM to schedule MWV) Start: 06-26-2018 End: 06-26-2018 Office outpatient visit 25 minutes David Festus Nadia Work Phone: [facility] Comment on above: Benign essential hyp ertension (Primary Dx); Mixed hyperlipidemia; Chronic combined systolic and diastolic congestive heart failure (HCC); Mood disorder (HCC) Start: 01-28-2018 Patient encounter procedure Escobar Gallegos Facility:[place] Start: 01-28-2018 End: 01-28-2018 Patient encounter Escobar Julian Gallegos Work Phone: [facility] Start: 01-15-2018 End: 01-15-2018 Office outpatient visit 25 minutes Escobar Gallegos Work Phone: [facility] Comment on above: Congestive heart elsy lure, unspecified HF chronicity, unspecified heart failure type (HCC) (Primary Dx); Dyspnea on exertion; Nonrheumatic aortic valve insufficiency; Benign essential hypertension Start: 12-27-2017 End: 12-27-2017 Office outpatient visit 25 minutes Davidcleveland Mortensen Nadia Work Phone: [facility] Comment on above: Benign essential hyp ertension (Primary Dx); Mixed hyperlipidemia; Subclinical hypothyroidism; Chronic combined systolic and diastolic congestive heart failure (HCC); Need for influenza vaccination Start: 12-19-2017 Patient encounter procedure Alfredo Barreto Facility:[place] Start: 12-19-2017 End: 12-19-2017 Patient encounter Devonte Hassan [facility] Start: 11-07-2017 Abner Palenciay M D Work Phone: [facility] Comment on above: Medication Refill Start: 06-26-2017 Patient encounter procedure Alfredo Barreto Facility:[place] Start: 06-26-2017 Office/outpatient vi sit, est, level 3 Alfredo Isabel Ladonnalisa Work Phone: [facility] Start: 06-25-2017 Patient encounter procedure Oscar Horace Sylillian Facility:[place] Start: 06-20-2017 Patient encounter Ceasar guillen Prykhodko Work Phone: [facility] Start: 06-18-2017 Patient encounter procedure Oscar Horace Mendes Facility:[place] Start: 01-12-2017 End: 01-12-2017 Ambulatory Rubin Chirinos Work Phone: [facility] Start: 01-08-2017 Office/outpatient vi sit, est, level 5 Rubin Chirinos Work Phone: [facility] Start: 12-19-2016 End: 12-19-2016 Ambulatory Oscar Horace Mendes Work Phone: [facility] Start: 12-15-2016 End: 12-15-2016 [facility] Start: 12-13-2016 End: 12-13-2016 Office outpatient new 30 minutes Ceasar Segura Prykhodko Work Phone: [facility] Comment on above: Hearing loss due to cerumen impaction, bilateral (Primary Dx);Presbycusis, unspecified laterality Start: 11-24-2016 End: 11-24-2016 Ambulatory Oscar Horace Mendes Work Phone: [facility] Procedures Date Procedure Procedure Detail Performing Clinician Start: 02-03-2020 Carotid artery doppl er assessment Rubin Chirinos Work Phone: Start: 12-08-2019 Adult depression screening assessment David Ludwig Start: 01-13-2019 12 lead ECG Rubin swift Work Phone: Start: 12-18-2018 Adult depression screening assessment Rubin Chirinos Start: 01-15-2018 End: 01-15-2018 Ecg routine ecg w/least 12 lds w/i&r Escobar Gallegos Work Phone: Plan of Treatment Date Care Activity Detail Author Start: 12-07-2029 Tetanus vaccination Tetanus: Every 10yrs [facility] Start: 12-27-2022 History and physical examination, annual for health maintenance Wellness Visit [facility] Start: 12-22-2021 Influenza vaccination Sequential Influenza Vaccine (#1) [facility] Start: 01-31-2021 End: 01-31-2021 Office Visit 01/31/2021 Office Visit Primary Care David Ludwig MD [address] [place] [address] [phone] [facility] Start: 12-07-2020 Administration of herpes zoster vaccine Zoster Vaccines (1 of 2) [facility] Comment on above: Postponed from 10/21/1985 (Treatment Not Available) Start: 12-07-2020 Adolescent depression screening assessment Depression Screening (PHQ9) [facility] Start: 12-07-2020 Depression screening using PHQ-9 (Patient Health Questionnaire 9) score [facility] Start: 12-07-2020 Fall risk assessment Falls Risk Assessment [facility] Start: 12-07-2020 History and physical examination, annual for health maintenance Wellness Visit [facility] Start: 08-09-2020 COVID-19 Vaccine (3 - Booster for Moderna series) COVID-19 Vaccine (3 - Booster for Moderna series) [facility] Start: 07-28-2020 End: 07-28-2020 Office Visit 07/28/2020 Office Visit Primary Care David Ludwig MD [address] [place] [address] [phone] [facility] Start: 07-28-2020 End: 07-28-2021 Microalbumin measurement, urine, quantitative Microalbumin/Creatinine Ratio, UR Random Lab Routine Benign essential hypertension Expected: 07/28/2020, Expires: 07/28/2021 [facility] Comment on above: Expected: 07/28/2020, Expires: Start: 06-10-2020 End: 06-10-2020 Office Visit 06/10/2020 Office Visit Primary Care David Ludwig MD [address] [place] [address] [phone] [facility] Start: 02-03-2020 End: 02-03-2020 Appointment 02/03/2020 Appointment Cardiology Rubin Chirinos MD [address] [place] [address] [phone] [facility] Start: 12-23-2019 Influenza vaccination given Sequential Influenza Vaccine (#1) [facility] Start: 12-19-2019 Depression screening using PHQ-9 (Patient Health Questionnaire 9) score DEPRESSION SCREENING (PHQ9) [facility] Start: 12-19-2019 Fall risk assessment Falls Risk Assessment [facility] Start: 12-08-2019 End: 12-08-2019 Office Visit 12/08/2019 Office Visit Primary Care David Ludwig MD [address] [place] [address] [phone] [facility] Start: 06-16-2019 End: 06-16-2020 Microalbumin measurement, urine, quantitative Microalbumin/Creatinine Ratio, UR Random Lab Routine Benign essential hypertension Expected: 06/16/2019, Expires: 06/16/2020 [facility] Comment on above: Expected: 06/16/2019, Expires: 1 Start: 06-16-2019 End: 06-16-2019 Office Visit 06/16/2019 Office Visit Primary Care David Ludwig MD [address] [place] [address] [phone] [facility] Start: 01-13-2019 End: 01-13-2019 Office Visit 01/13/2019 Office Visit Cardiology Rubin Chirinos MD [address] [place] [address] [phone] [facility] Start: 12-22-2018 Influenza vaccination given SEQUENTIAL INFLUENZA VACCINE (#1) [facility] Start: 12-20-2018 End: 12-20-2018 Office Visit 12/20/2018 Office Visit Primary Care David Ludwig MD [address] [place] [address] [phone] [facility] Start: 12-18-2018 End: 12-18-2018 Office Visit 12/18/2018 Office Visit Primary Care David Ludwig MD [address] [place] [address] [phone] [facility] Start: 06-26-2018 End: 06-27-2019 Microalbumin measurement, urine, quantitative Microalbumin, Urine, Random Routine Benign essential hypertension Expected: 06/26/2018, Expires: 06/27/2019 [facility] Comment on above: Expected: 06/26/2018, Expires: 0 Start: 06-26-2018 End: 06-26-2018 Ambulatory 06/26/2018 Office Visit Primary Care David Ludwig MD [address] [place] [address] [phone] [facility] Start: 06-19-2018 End: 06-19-2018 Ambulatory 06/19/2018 Clinical Support Primary Care [facility] Start: 01-28-2018 End: 01-28-2018 Ambulatory 01/28/2018 Appointment Cardiology Escobar Gallegos, VERONICA [address] [place] [address] [phone] [facility] Start: 01-10-2018 End: 01-10-2018 Ambulatory 01/10/2018 Office Visit Cardiology Rubin Chirinos MD [address] [place] [address] [phone] [facility] Start: 12-27-2017 End: 12-27-2017 Ambulatory [facility] Start: 12-22-2017 Influenza vaccination SEQUENTIAL INFLUENZA VACCINE (#1) [facility] Start: 12-18-2017 Ambulatory 12/18/2017 Clinical Support Primary Care [facility] Start: 06-26-2017 Ambulatory [facility] Start: 06-25-2017 Ambulatory 06/25/2017 Hospital Encounter Oscar Mendes MD [address] [place] [address] [phone] [facility] Start: 06-20-2017 Ambulatory 06/20/2017 Office Visit Otolaryngology Ceasar Arce MD [address] [facility] [address] [place] [address] [phone] [facility] Start: 06-18-2017 Ambulatory 06/18/2017 Hospital Encounter Oscar Mendes MD [address] [place] [address] [phone] [facility] Start: 01-12-2017 Ambulatory 01/12/2017 Hospital Encounter Cardiology Rubin [facility]inos [facility] [address] [facility] [place] [address] [phone] [facility] Start: 01-08-2017 Ambulatory 01/08/2017 Office Visit Cardiology Rubin Chirinos MD [address] [place] [address] [phone] [facility] Start: 12-22-2016 Influenza vaccination SEQUENTIAL INFLUENZA VACCINE (#1) [facility] Work Phone: Start: 12-22-2016 SEQUENTIAL INFLUENZA VACCINE (#1) SEQUENTIAL INFLUENZA VACCINE (#1) [facility] Work Phone: Start: 12-13-2016 Ambulatory 12/13/2016 Office Visit Otolaryngology Ceasar Arce MD [address] [facility] [address] [place] [address] [phone] [facility] Start: 03-02-2016 Pneumococcal vaccination PNEUMOCOCCAL VACCINE AGE 65+ (2 of 2 - PCV13) [facility] Start: 10-21-2000 Fall risk assessment Steadi Fall Risk Assessment [facility] Start: 10-21-2000 Pneumococcal vaccination PNEUMOCOCCAL VACCINE AGE 65+ (1 of 2 - PCV13) [facility] Work Phone: Start: 10-21-2000 PNEUMOCOCCAL VACCINE AGE 65+ (1 of 2 - PCV13) PNEUMOCOCCAL VACCINE AGE 65+ (1 of 2 - PCV13) [facility] Work Phone: Start: 1995 Zoster vacc, sc ZOSTER VACCINE [facility] Work Phone: Start: 10-21-1985 Administration of herpes zoster vaccine ZOSTER VACCINES (1 of 2) [facility] Start: 10-21-1985 ZOSTER VACCINES (1 of 2) ZOSTER VACCINES (1 of 2) [facility] Start: 10-21-1938 History and physical examination, annual for health maintenance Wellness Visit [facility] Start: 1935 Fall risk assessment Falls Risk Assessment [facility] Start: 1935 End: 1935 DEXA SCAN DEXA SCAN [facility] Work Phone: Start: 1935 End: 1935 Screening for osteoporosis DEXA SCAN [facility] Start: 1935 End: 1935 TETANUS EVERY 10 YR TETANUS EVERY 10 YR [facility] Work Phone: Start: 1935 End: 1935 Tetanus vaccination [facility] Work Phone: End: 03-17-2021 Carotid artery doppler assessment Ultrasound doppler carotid Vascular Ultrasound Routine Bruit of left carotid artery 1 Occurrences starting 01/15/2020 until 03/17/2021 [facility] Comment on above: 1 Occurrences starting 01/15/2020 until 03/17/2021 End: 01-12-2017 Carotid Duplex Carotid Duplex Routine Bruit Once for 1 Occurrences starting 01/12/2017 until 01/12/2017 [facility] Work Phone: Carotid Duplex Carotid Duplex R outine Bruit 01/12/2017 4:01 PM EDT [facility] Work Phone: End: 03-10-2018 Carotid Duplex Carotid Duplex Routine Bruit 1 Occurrences starting 01/08/2017 until 03/10/2018 [facility] Work Phone: End: 06-26-2018 Cholesterol Lipid Panel Routine Pure hypercholesterolemia 1 Occurrences starting 06/26/2017 until 06/26/2018 [facility] End: 06-26-2018 Complete blood count (hemogram) panel - Blood by Automated count CBC Routine Essential hypertension 1 Occurrences starting 06/26/2017 until 06/26/2018 [facility] End: 06-27-2019 Complete blood count with white cell differential, manual CBC and Differential Routine Benign essential hypertension 1 Occurrences starting 11/26/2018 until 06/27/2019 [facility] Comment on above: 1 Occurrences starting 11/26/2018 until 06/27/2019 End: 06-16-2020 Complete blood count with white cell differential, manual CBC and Differential Lab Routine Benign essential hypertension 1 Occurrences starting 06/16/2019 until 06/16/2020 [facility] Comment on above: 1 Occurrences starting 06/16/2019 until 06/16/2020 End: 07-28-2021 Complete blood count with white cell differential, manual CBC and Differential Lab Routine Benign essential hypertension 1 Occurrences starting 07/28/2020 until 07/28/2021 [facility] Comment on above: 1 Occurrences starting 07/28/2020 until 07/28/2021 End: 06-27-2019 Comprehensive metabolic 2000 panel Comprehensive Metabolic Panel Routine Benign essential hypertension 1 Occurrences starting 11/26/2018 until 06/27/2019 [facility] Comment on above: 1 Occurrences starting 11/26/2018 until 06/27/2019 End: 06-16-2020 Comprehensive metabolic 2000 panel Comprehensive Metabolic Panel Lab Routine Benign essential hypertension 1 Occurrences starting 06/16/2019 until 06/16/2020 [facility] Comment on above: 1 Occurrences starting 06/16/2019 until 06/16/2020 End: 07-28-2021 Comprehensive metabolic 2000 panel Comprehensive Metabolic Panel Lab Routine Benign essential hypertension 1 Occurrences starting 07/28/2020 until 07/28/2021 [facility] Comment on above: 1 Occurrences starting 07/28/2020 until 07/28/2021 End: 06-26-2018 Comprehensive metabolic panel [AGGREGATE] Comprehensive Metabolic Panel Routine Essential hypertension 1 Occurrences starting 06/26/2017 until 06/26/2018 [facility] End: 01-16-2019 Echocardiogram complete Echocardiogram complete Routine Dyspnea on exertion 1 Occurrences starting 01/15/2018 until 01/16/2019 [facility] Comment on above: 1 Occurrences starting 01/15/2018 until 01/16/2019 End: 06-27-2019 Lipid 1996 panel Lipid Panel Routine Mixed hyperlipidemia 1 Occurrences starting 11/26/2018 until 06/27/2019 [facility] Comment on above: 1 Occurrences starting 11/26/2018 until 06/27/2019 End: 06-16-2020 Lipid 1996 panel Lipid Panel Lab Routine Mixed hyperlipidemia 1 Occurrences starting 06/16/2019 until 06/16/2020 [facility] Comment on above: 1 Occurrences starting 06/16/2019 until 06/16/2020 End: 07-28-2021 Lipid 1996 panel Lipid Panel Lab Routine Benign essential hypertension 1 Occurrences starting 07/28/2020 until 07/28/2021 [facility] Comment on above: 1 Occurrences starting 07/28/2020 until 07/28/2021 End: 06-26-2018 Microalbumin, Urine, Random Microalbumin, Urine, Random Routine Essential hypertension 1 Occurrences starting 06/26/2017 until 06/26/2018 [facility] End: 06-27-2019 Thyrotropin Qn TSH with Reflex Free T4 Routine Benign essential hypertension 1 Occurrences starting 11/26/2018 until 06/27/2019 [facility] Comment on above: 1 Occurrences starting 11/26/2018 until 06/27/2019 End: 06-26-2018 TSH TSH Routine Hypothyroidism (acquired) 1 Occurrences starting 06/26/2017 until 06/26/2018 [facility] End: 06-16-2020 TSH Qn TSH with Reflex Free T4 Lab Routine Subclinical hypothyroidism 1 Occurrences starting 06/16/2019 until 06/16/2020 [facility] Comment on above: 1 Occurrences starting 06/16/2019 until 06/16/2020 End: 07-28-2021 TSH Qn TSH with Reflex Free T4 Lab Routine Benign essential hypertension 1 Occurrences starting 07/28/2020 until 07/28/2021 [facility] Comment on above: 1 Occurrences starting 07/28/2020 until 07/28/2021 Immunizations Immunization Date Immunization Notes Care Provider Derrick gomez 06-14-2020 Moderna SARS-CoV-[address] [facility] 05-17-2020 Moderna SARS-CoV-[address] [facility] 01-28-2020 Seasonal, quadrivale nt, recombinant, injectable influenza vaccine, preservative free [facility] 12-08-2019 diphtheria, tetanus toxoids and acellular pertussis vaccine, unspecified formulation [facility] 12-08-2019 tetanus toxoid, redu cielo diphtheria toxoid, and acellular pertussis vaccine, adsorbed [facility] influenza, high dose seasonal, preservative-free; Translations: [INFLUENZA IIV3 HIGH DOSE 65 AND OLDER] David Ludwig [facility] 03-02-2015 influenza virus vacc ine, unspecified formulation Ceasar Prykhodko [facility] 03-02-2015 influenza, injectabl e, quadrivalent, preservative free [facility] 03-02-2015 pneumococcal conjuga te vaccine, [address] [facility] 03-02-2015 pneumococcal polysac charide vaccine, 23 valent Ceasar Prykhodko [facility] 03-17-2002 influenza virus vacc ine, unspecified formulation [facility] Payers Date Payer Category Payer Self-pay 2015 Unknown [id number] 2015 Unknown [facility] [id number] 2015-Present [id number] 2015 Unknown [facility] [id number] 2015-Present [phone] [address] [place] [address] [id number] 2000 Medicare [id number] 2000 Medicare MEDICARE MEDICAR E PART A & B [id number] 2000-Present [place] [id number] 2000 Medicare MEDICARE MEDICAR E PART A & B [id number] 2000-Present [phone] S [id number] PART A CLAIMS [address] [address] [place] [address] [id number] 2000 Unknown [id number] 2000 Medicare [id number] 1935 Unknown [id number] 1935 Unknown [id number] 1935 Unknown [id number] 1935 Unknown [id number] 1935 Unknown [id number] Medicare xxxxxxxxxx [id number] Unknown [id number] Unknown [id number] Unknown [id number] Unknown [id number] Unknown [id number] Unknown [id number] Social History Date Type Detail Facility Start: 12-13-2016 End: 06-26-2017 Tobacco smoking status INIS Never smoker [facility] Start: 1935 Sex Assigned At Not on file [facility] Work Phone: Start: 01-06-2016 Alcohol Comment very seldom [facility] Start: 06-26-2017 End: 01-13-2019 Alcohol intake Current drinker of alcohol (finding) [facility] Start: 12-18-2018 End: 07-28-2020 History SDOH Social Connections Phone 3 [facility] Start: 12-18-2018 End: 12-08-2019 History SDOH Food Worry 1 [facility] Start: 12-13-2016 End: 01-15-2020 Tobacco use and exposure Never used [facility] Start: 01-15-2020 End: 07-28-2020 Alcohol intake Ex-drinker (finding) [facility] Start: 12-08-2019 History SDOH Physica l Activity DPW 0 [facility] Start: 12-08-2019 History SDOH Education 14 [facility] Start: 12-08-2019 History SDOH Financial 5 [facility] Start: 12-08-2019 End: 07-28-2020 History SDOH IPV Fear 2 [facility] Start: 06-28-2020 End: 07-28-2020 Exposure to SARS-CoV-2 (event) Not sure [facility] Start: 06-26-2017 End: 07-28-2020 Alcohol intake [facility] Clinical Notes 11-07-2017 to 03-04-2025 Telephone Encounter - Shante Hargrove LPN - 09/21/2020 4:05 PM EDTTelephone Encounter - Theresa Berg MA - 11/09/2017 9:59 AM EDT Note Date & Type Note Facility 03-04-2025 Note HNO ID: [id number] Author: NORMA LEES RN Service: Care Management Author Type: Registered Nurse Type: Care Mgt Progress Note Filed: 03/04/2025 13:48 Note Text: CARE MANAGEMENT PROGRESS NOTE SERVICE DATE: 03/04/2025 SERVICE TIME: 1:07 PM LOS: 2 days Needs Prior to Discharge: To Be Determined EMR reviewed. Acute on chronic CHF. On IV Lasix. On RA. Returning to [facility]. OT rec HHC. PT pending. Updated [facility] referral, awaiting answer if they have their own onsite therapy or a [facility] agency they prefer to use. 1:47 PM [facility] advised they will use their in house therapy team to provide the home therapy patient needs upon return. SIGNATURE: Norma Lees RN PATIENT NAME: Na Good DATE: March 04, 2025 TIME: 1:07 PM [facility] 03-04-2025 Note HNO ID: [id number] Author: BISMARK SALES MD Service: General Internal Medicine Author Type: Physician Type: Progress Notes Filed: 03/04/2025 20:53 Note Text: INTERNAL MEDICINE PROGRESS NOTES Patient Name: Na Good DATE of SERVICE: 03/04/2025 TIME of SERVICE: 7:27 AM Admitting Physician: Bismark Sales MD ASSESSMENT AND PLAN: Acute on chronic CHF exacerbation with combined systolic and diastolic dysfunction - LVEF ~25% and grade 1 diastolic dysfunction noted on recent Echo. IV lasix. S/b Cardiology consult. Check nocturnal pulse oxymetry on RA. CAD, non-ischemic cardiomyopathy, HTN H/o LV thrombus Leukocytosis H/o Thyrotoxicosis Tremor, Generalized weakness - s/b PT AND OT and recommended home therapy. Advanced age of 89 years Discharge planning. INTERVAL HPI: Pt reports feeling better with improvement in dyspnea. She remains on RA. She was s/b Cardiology yesterday and being continued on IV Lasix. AM labs today show stable BUN AND creatinine. No new symptoms or complaints reported by pt or by nursing staff. ROS: GENERAL: No weight loss, malaise or fevers RESPIRATORY: No cough or wheeze CARDIOVASCULAR: No chest pain, or palpitation NEURO: see HPI Medications: Current Facility-Administered Medications Medication Dose Route Frequency NaCl 0.9% iv flush bag 20 mL INTRAVENOUS PRN furosemide 20 mg injection (LASIX) 20 mg INTRAVENOUS q 12 H 6a/6p apixaban 2.5 mg tab(s) (ELIQUIS) 2.5 mg ORAL BID spironolactone 12.5 mg tab(s) (ALDACTONE) 12.5 mg ORAL DAILY metoprolol succinate ER 25 mg tab(s) (TOPROL XL) 25 mg ORAL BID empagliflozin 10 mg tab(s) (JARDIANCE) 10 mg ORAL DAILY WITH BREAKFAST dextrose 40 % 15 g 15 g ORAL PRN Or glucagon 1 mg injection 1 mg INTRAMUSCULAR PRN Or dextrose 10% iv bolus 12.5 g INTRAVENOUS PRN enalapril 2.5 mg tab(s) (VASOTEC) 2.5 mg ORAL BID rosuvastatin 5 mg tab(s) (CRESTOR) 5 mg ORAL AT BEDTIME mirtazapine 30 mg (REMERON) 30 mg ORAL AT BEDTIME melatonin 3 mg tab(s) 3 mg ORAL AT BEDTIME PHYSICAL EXAM: BP 132/75 Pulse 77 Temp 36.9 ?C (98.4 ?F) (Temporal) Resp 18 Ht 157.5 cm (5' 2") Wt 55 kg (121 lb 4.1 oz) SpO2 96% BMI 22.18 kg/m? Body mass index is 22.18 kg/m?. GENERAL: Alert, No Distress NECK: No jugulovenous distention LUNGS: bibasilar crackles, diminished breath sounds both lung bases CARDIAC: Regular ABDOMEN: Abdomen soft, non-tender, non-distended EXTREMITIES: 1-2+ pitting edema of both legs NEURO: AAOx3, normal speech, + tremors in limbs, no gross focal weakness but + generalized weakness DATA: Recent Labs 03/04/25 0541 03/03/25 0517 03/02/25 1513 03/02/25 1423 WBC 12.10* 12.19* -- 11.62* HB 14.1 13.9 -- 14.1 HCT 42.7 41.9 -- 42.3 PLT 337 366 -- 380 NA 136 137 -- 133* K 4.1 4.1 -- 5.2* CHLOR 98 99 -- 98 CO2 25 25 -- 22 CREAT 0.93 1.05* -- 0.89 BUN 29* 30* -- 32* GLUC 93 100* -- 106* TPROT -- -- -- 6.8 ALB -- -- -- 4.2 MG 2.3 2.6* -- 2.5* CA 9.1 9.6 -- 9.5 ALKPHOS -- -- -- 49 TBILI -- -- -- 0.8 AST -- -- 52* -- ALT -- -- 45* -- CRP -- -- 0.4 -- Additional Lab Data: Latest Ref Rng 12/24/2024 01/27/2025 03/02/2025 EMMANUEL High Sensitivity <12 ng/L 33 (H) 31 (H) 37 (H) EMMANUEL High Sensitivity 30 (H) 37 (H) EMMANUEL High Sensitivity 32 (H) NT Pro BNP <450 pg/mL 24,602 (H) 30,208 (H) 42,447 (H) Latest Ref Rng 03/02/2025 SARS-CoV-2 (Agent of COVID-19) RNA See comment Not detected Influenza A RNA Not Detected Not detected Influenza B RNA Not Detected Not detected Respiratory syncytial virus (RSV) RNA Not Detected Not detected Imaging: EXAMINATION: CHEST RADIOGRAPH (PORTABLE SINGLE VIEW AP) Exam Date/Time: 03/02/2025 2:36 PM CLINICAL HISTORY: Shortness of breath Comparison: January 27, 2025. RESULT: Lines, tubes, and devices: None. Lungs and pleura: Bilateral lower lungs infiltrates probably due to pulmonary edema. Bilateral pleural effusions. Lobe which is documented/reactive Cardiomediastinal silhouette: Stable cardiomediastinal silhouette. Other: The visualized bony thorax appears unremarkable. IMPRESSION: Persistent bilateral parenchymal and pleural changes as described above. A follow-up exam with chest PA and lateral views is recommended. Echocardiography Report: Transthoracic Echo [facility] Date of service: 12/26/2024 CONCLUSIONS: - Exam indication: cardiomyopathy - The [...] performed on 01/28/15. LV function has decreased. This note was partially created using voice recognition software and is inherently subject to e (more content not included)... [facility] 03-03-2025 Note HNO ID: [id number] Author: NORMA LEES, RN Service: Care Management Author Type: Registered Nurse Type: Care Mgt Initial Assessment Filed: 03/03/2025 12:04 Note Text: CARE MANAGEMENT: ASSESSMENT AND DISCHARGE PLAN SERVICE DATE: March 03, 2025 SERVICE TIME: 11:56 AM PCP: Alexey Vinson Sr, DO - Confirmed. Primary Contact: Extended Emergency Contact Information Primary Emergency Contact: Janelle Bailey Mobile Relation: Daughter Secondary Emergency Contact: GerirronyYuridia Mobile Relation: Daughter Admission Status: Inpatient Insurance Provider: MEDICARE A AND B Discharge Planning requested by: Per Department Practice Potential Transition Plans Shelter Facility/Intermediate Care Facility Advance Directives Current Advance Directive: Health Care Power of Blade Worker In Chart: Yes Up To Date and Valid: Yes Current Living Arrangements and Support Lives with: Type of Residence: Assisted Living Facility Does the patient have to climb stairs at home?: No Care Facility Name: [facility] Support: Children How do you manage to accomplish the following: Independent: Ambulation, Dress, Going to the bathroom Needs Assistance: Bathe/Shower Dependent: Meals/Meal Prep, Medication Management, Transportation to appointments/community Current Services/Equipment Current Post-Acute Service(s): DME Current DME Type: Walker (Walker inside, Walking poles outside.) Discharge Planning Patient Goal(s): Be able to go home, General wellness Griffin of Choice Explained: Griffin of Choice Given: Yes Level of Care Discussed: Other: See Comment (Return to [facility].) Are you interested in bedside delivery of your medications? No Discharge Planning Participant(s): Children Patient/Family Comments: Caregiver Assessment: Caregiver is ready, willing and able to meet the patient's needs as recommended by the inter-professional team: Yes Name of Caregiver: [facility] Transport at Discharge: Transportation Arrangements: To Be Determined Needs Prior to Discharge: Needs Prior to Discharge: To Be Determined Post-Acute Discharge Plan: CM spoke with daughter/AIRAM Shi to complete assessment, introduced self and role. Pt is 89 y/o, admit Dx Acute on chronic CHF. Patient resides at [facility]. Needs assist with bathing, nurses administer all meds. Daughter reports patient uses a walker inside and walking poles when outside. Presented to ED with worsening dyspnea on exertion. Cardiology consulted. On IV Lasix. On RA. Pt is AANDO X 3. Anticipate return to [facility]. Discharge transport TBD Family vs [facility] vs Medical transport. Daughter feels Discharge instructions on Lasix administration need to be very specific for the [facility] nurses at d/c. CM instructed patient that CM team will remain available for any dc needs. SIGNATURE: Norma Lees RN PATIENT NAME: Na Good DATE: March 03, 2025 TIME: 11:56 AM [facility] 03-03-2025 Note HNO ID: [id number] Author: BISMARK SALES MD Service: General Internal Medicine Author Type: Physician Type: Progress Notes Filed: 03/03/2025 19:50 Note Text: INTERNAL MEDICINE PROGRESS NOTES Patient Name: Na Good DATE of SERVICE: 03/03/2025 TIME of SERVICE: 8:42 AM Admitting Physician: Bismark Sales MD ASSESSMENT AND PLAN: Acute on chronic CHF exacerbation with combined systolic and diastolic dysfunction - LVEF ~25% and grade 1 diastolic dysfunction noted on recent Echo. IV lasix. S/b Cardiology consult. CAD, non-ischemic cardiomyopathy, HTN H/o LV thrombus Leukocytosis H/o Thyrotoxicosis Tremor Advanced age of 89 years Discharge planning. INTERVAL HPI: Pt reports feeling better with improvement in dyspnea. She remains on RA. 8 - beat wide complex tachycardia noted on Telemetry this morning, asymptomatic. She was s/b Cardiology and being continued on IV Lasix. No new symptoms or complaints reported by pt or by nursing staff. ROS: GENERAL: No weight loss, malaise or fevers RESPIRATORY: No cough or wheeze CARDIOVASCULAR: No chest pain, or palpitation NEURO: see HPI Medications: Current Facility-Administered Medications Medication Dose Route Frequency NaCl 0.9% iv flush bag 20 mL INTRAVENOUS PRN furosemide 20 mg injection (LASIX) 20 mg INTRAVENOUS q 12 H 6a/6p apixaban 2.5 mg tab(s) (ELIQUIS) 2.5 mg ORAL BID spironolactone 12.5 mg tab(s) (ALDACTONE) 12.5 mg ORAL DAILY metoprolol succinate ER 25 mg tab(s) (TOPROL XL) 25 mg ORAL BID empagliflozin 10 mg tab(s) (JARDIANCE) 10 mg ORAL DAILY WITH BREAKFAST dextrose 40 % 15 g 15 g ORAL PRN Or glucagon 1 mg injection 1 mg INTRAMUSCULAR PRN Or dextrose 10% iv bolus 12.5 g INTRAVENOUS PRN enalapril 2.5 mg tab(s) (VASOTEC) 2.5 mg ORAL BID rosuvastatin 5 mg tab(s) (CRESTOR) 5 mg ORAL AT BEDTIME mirtazapine 30 mg (REMERON) 30 mg ORAL AT BEDTIME melatonin 3 mg tab(s) 3 mg ORAL AT BEDTIME PHYSICAL EXAM: BP 127/66 Pulse 76 Temp 36.7 ?C (98 ?F) (Temporal) Resp 20 Ht 157.5 cm (5' 2") Wt 54.5 kg (120 lb 2.4 oz) SpO2 97% BMI 21.98 kg/m? Body mass index is 21.98 kg/m?. GENERAL: Alert, No Distress NECK: No jugulovenous distention LUNGS: bibasilar crackles, diminished breath sounds both lung bases CARDIAC: Regular ABDOMEN: Abdomen soft, non-tender, non-distended EXTREMITIES: 1-2+ pitting edema of both legs NEURO: AAOx3, normal speech, + tremors in limbs, no gross focal weakness but + generalized weakness DATA: Recent Labs 03/03/25 0517 03/02/25 1513 03/02/25 1423 WBC 12.19* -- 11.62* HB 13.9 -- 14.1 HCT 41.9 -- 42.3 PLT 366 -- 380 NA 137 -- 133* K 4.1 -- 5.2* CHLOR 99 -- 98 CO2 25 -- 22 CREAT 1.05* -- 0.89 BUN 30* -- 32* GLUC 100* -- 106* TPROT -- -- 6.8 ALB -- -- 4.2 MG 2.6* -- 2.5* CA 9.6 -- 9.5 ALKPHOS -- -- 49 TBILI -- -- 0.8 AST -- 52* -- ALT -- 45* -- CRP -- 0.4 -- Additional Lab Data: Latest Ref Rng 12/24/2024 01/27/2025 03/02/2025 EMMANUEL High Sensitivity <12 ng/L 33 (H) 31 (H) 37 (H) EMMANUEL High Sensitivity 30 (H) 37 (H) EMMANUEL High Sensitivity 32 (H) NT Pro BNP <450 pg/mL 24,602 (H) 30,208 (H) 42,447 (H) Latest Ref Rng 03/02/2025 SARS-CoV-2 (Agent of COVID-19) RNA See comment Not detected Influenza A RNA Not Detected Not detected Influenza B RNA Not Detected Not detected Respiratory syncytial virus (RSV) RNA Not Detected Not detected Imaging: EXAMINATION: CHEST RADIOGRAPH (PORTABLE SINGLE VIEW AP) Exam Date/Time: 03/02/2025 2:36 PM CLINICAL HISTORY: Shortness of breath Comparison: January 27, 2025. RESULT: Lines, tubes, and devices: None. Lungs and pleura: Bilateral lower lungs infiltrates probably due to pulmonary edema. Bilateral pleural effusions. Lobe which is documented/reactive Cardiomediastinal silhouette: Stable cardiomediastinal silhouette. Other: The visualized bony thorax appears unremarkable. IMPRESSION: Persistent bilateral parenchymal and pleural changes as described above. A follow-up exam with chest PA and lateral views is recommended. Echocardiography Report: Transthoracic Echo [facility] Date of service: 12/26/2024 CONCLUSIONS: - Exam indication: cardiomyopathy - The [...] performed on 01/28/15. LV function has decreased. This note was partially created using voice recognition software and is inherently subject to errors including those of syntax and sound-alike substitutions which may escape proofreading. In such instances, original meaning may be extrapolated by contextual deri (more content not included)... [facility] 03-02-2025 Note SARS-COV-2 (AGENT OF COVID-19) RNA: Not detected INFLUENZA A RNA: Not detected INFLUENZA B RNA: Not detected RESPIRATORY SYNCYTIAL VIRUS (RSV) RNA: Not detected [facility] Comment on above: Performed By: #### 2 4321-2 #### [facility] CLIA [id number] [address] [place] [address] [facility] 02-25-2025 Note HNO ID: [id number] Author: LIDIA ARMENTA APRN.VERONICA Service: ? Author Type: Nurse Practitioner Type: Progress Notes Filed: 02/25/2025 15:55 Note Text: [facility] [place] [facility] Department of Cardiovascular Medicine SECTION OF CLINICAL CARDIOLOGY OUTPATIENT VISIT DATE February 25, 2025 OUTPATIENT VISIT TYPE ESTABLISHED Elements of this note, including but not limited to HPI, ROS, Physical Exam, Assessment and Plan were copied and pasted from previous office visit notes completed within our department. Updates have been made where appropriate/noted and reflect current exam and medical decision making from date of this visit. Patient Name: Na Good : 1935 PRIMARY CARE PHYSICIAN: Alexey Vinson Sr, DO CHIEF COMPLAINT: Patient presents with: Follow Up Interval Hx: Mrs. Good comes for a follow up visit. Recent admission to [facility] for acute diastolic HF Seen by me and Dr. Martinez. Had CHF clinic follow up with Jovani on 02/04/2025. The patient is an 89-year-old female with a history of AFib, HF, and tremor, presenting for evaluation of dyspnea. The patient reports increased dyspnea, which is intermittent and occurs both during the day and at night. She denies using supplemental oxygen. She does not wake up due to dyspnea but reports difficulty falling asleep. She is currently taking melatonin 2.5 mg without improvement in sleep quality. She also notes nocturia, requiring her to get up several times at night. She denies experiencing chest pain, palpitations, or dizziness. She reports a long-standing tremor, which she describes as "shaking." She is unsure if she has been taking extra doses of her diuretic. She tries to avoid excessive salt intake. She was recently hospitalized twice, in December and January, for pulmonary edema and a UTI. She denies any current symptoms of a UTI, such as dysuria or increased urinary frequency. She resides in an assisted living facility, [facility], and is accompanied by her nurse aide. She is under the care of a primary physician and a nurse practitioner at the facility. She is currently taking a thyroid medication. Recent lab results show normal renal function, potassium levels, and thyroid function. There were no tests performed for review. PHYSICAL EXAMINATION: Vitals: BP 118/78 (BP Position: Sitting) Pulse 95 Ht 157.5 cm (5' 2") Wt 54.9 kg (121 lb 0.5 oz) SpO2 98% BMI 22.14 kg/m? General: Alert AND oriented, no acute distress. Skin: Normal. HEENT: Pupils equal, round. Oral cavity and oropharynx clear. Neck: Supple, no mass. Breast: Deferred. Respiratory: Clear to auscultation bilaterally. Cardiovascular: Jugular venous pressure elevated. Irregular rate and rhythm, normal S1 and S2, no murmurs or added sounds. Abdomen: Soft, non-tender, non-distended, no masses palpable, no hepatosplenomegaly, normal bowel sounds. Genitourinary: Deferred. MSK: No joint swelling, erythema, or tenderness. Extremities: No clubbing, cyanosis. 1-2+ BLE edema up to the shins. IMPRESSION/PLAN: 1. SOB (shortness of breath) (R06.02) 2. Acute on chronic combined systolic and diastolic CHF (congestive heart failure) (HCC) (I50.43) 3. Dilated cardiomyopathy (HCC) (I42.0) Recent hospitalizations in December and January for fluid overload; currently experiencing intermittent dyspnea. Labs are stable and within normal limits. - Adjusted medication regimen to optimize fluid status. - Ordered repeat chest X-ray to assess for recurrent pulmonary congestion. - Advised patient to maintain a low-sodium diet. - Will coordinate with facility provider Cameron Brown NP, regarding ongoing management. 4. Primary hypertension (I10) Blood pressure readings show some variability, with occasional elevated and low values, particularly at night; no reported dizziness. - Continue current antihypertensive regimen. - Monitor blood pressure to ensure systolic values remain above 90 mmHg. 5. Primary insomnia (F51.01) Chronic difficulty falling asleep; current melatonin 2.5 mg has not been effective. - Will discuss alternative management strategies with facility provider Cameron Brown NP. Thank you very much for allowing me to assist in the care of Na Good. The above information was discussed at length and detail with the patient who verbalized an understanding of the plan and was given ample opportunity to ask questions. The appropriate follow up has been arranged. I have advised the patient to contact me if any questions/problems arise prior to the follow up. Lidia Armenta APRN.MATERIALS AND CORROSION ENGINEER Cardiology Nurse Practitioner Section of Regional Cardiology [facility] Dept of Cardiovascular Medicine [facility] [place] [address] [place] [address] Office Office February 25, 2025 (more content not included)... [facility] 02-04-2025 Note HNO ID: [id number] Author: JOVANI COCHRAN APRN.MATERIALS AND CORROSION ENGINEER Service: ? Author Type: Nurse Practitioner Type: Progress Notes Filed: 02/04/2025 13:00 Note Text: [facility] [place] [facility] Heart Failure Clinic OUTPATIENT VISIT DATE February [...] Impaired Vision, Glass (more content not included)... [facility] 01-29-2025 Note HNO ID: [id number] Author: NAHEED GREENBERG RN Service: Care Management Author Type: Registered Nurse Type: Care Mgt Progress Note Filed: 01/29/2025 14:44 Note Text: CARE MANAGEMENT DISCHARGE NOTE SERVICE DATE: January 29, 2025 SERVICE TIME: 2:41 PM Discharge order written for today. [facility]: [email or web address] - - Updated in [facility]port and by Phone with Nurse Persaud on discharge planning. Nurse Persaud updated on discharge today and confirms the facility will set home PT services for patient. MMT transport scheduled for today at 3:30 PM - Trip Number [id number] Transport envelope on chart LAKESHIA GALLEGO discussed discharge with Nurse Yaritza Steven RN. Admission Date: 01/27/2025 LOS: 2 days Discharge Arrangement Discharge Arrangement: Assisted Living Facility [facility]: [facility] - Transportation Arrangements Transportation Arrangements: Ambulance Transportation Agency and Phone #:: [facility] [phone] Date of Trip: 01/29/25 (Trip Number [id number]) Time of Trip: 1530 Type of Service: BLS Non-emergency Is Patient Medicaid Pending?: No Was transportation financial coverage discussed with family?: Family (Son: Yandel Good - [phone]) Paver Layer Location: [place] Destination: [facility] - Financial Care Management Responsibility: None Handoff Communication: Handoff to: Primary Care Physician Primary Care Physician Name/Phone: PCP: Alexey Espino DO - Additional Information: Discharge Information Row Name ED to Hosp-Admission (Current) from 01/27/2025 in [facility] Medical Follow-Up Appointment Provider Name PCP: Alexey Espino DO - Other Follow-Up Type [facility]: [facility] - SIGNATURE: Naheed Greenberg RN PATIENT NAME: Na Good DATE: January 29, 2025 TIME: 2:41 PM [facility] 01-29-2025 Note HNO ID: [id number] Author: NAHEED GREENBERG RN Service: Care Management Author Type: Registered Nurse Type: Care Mgt Progress Note Filed: 01/29/2025 14:36 Note Text: CARE MANAGEMENT PROGRESS NOTE SERVICE DATE: 01/29/2025 SERVICE TIME: 2:13 PM LOS: 2 days RN CM spoke with son: Yandel Good [phone] to discuss discharge planning. Anticipate discharge today. Yandel confirms plan if for return to [facility]: [facility]. RN CM informed Yandel of therapy recommendations: 01/28/25 PT recommended Home PT and 01/28/25 OT recommended Home. Yandel is agreeable to PT offered by patients facility. RN CM discussed discharge transportation. Yandel informed that patient is responsible for all out of pocket costs for medical transport. Yandel confirms he is agreeable to medical transport. IMM Follow Up Copy Given: Yes Copy given to:: Patient Piercing Specialist Piercing Specialist Name/Relationship: Son: Yandel Good - Method: By Phone MMT Transport scheduled for today at 3:30 PM - Trip Number [id number] Transport envelope on chart with Nurse to Nurse Report Number RN CM updated Nurse Yaritza Steven RN. RN CM called [facility] spoke with Nurse: Cori to discuss need for Home PT services. She confirms the will arrange PT with the facility therapist. She has been informed that patient will be discharge and returning to them today. [facility] on Discharge Plan and Medical Transport Time. SIGNATURE: Naheed Greenberg RN PATIENT NAME: Na Good DATE: January 29, 2025 TIME: 2:13 PM [facility] 01-29-2025 Note HNO ID: [id number] Author: LIDIA ARMENTA APRN.CNP Service: Cardiovascular Medicine Author Type: Nurse Practitioner Type: Progress Notes Filed: 01/29/2025 10:50 Note Text: [facility] [place] [facility] Department of Cardiovascular Medicine SECTION OF [facility] CARDIOLOGY/[facility] Progress Note Elements of this note, including but not limited to HPI, ROS, Physical Exam, Assessment and Plan were copied and pasted from previous visit notes completed within our department. Updates have been made where appropriate/noted and reflect current exam and medical decision making from date of this visit. Name: Na Good : 1935 Primary Physician: Alexey iVnson Sr, DO Consulting Physician: Julio Cesar Alvarez MD Primary Mirror Maker: Mandeep - last visit 2019 SERVICE DATE: [...] PO daily and lasix 20 mg daily INGOT STRIPPER - Enalapril increased to 5 mg BID [...] Dr. Martinez and nursing staff. Lidia Armenta APRN.MATERIALS AND CORROSION ENGINEER 01/29/2025 9:00 AM PAST MEDICAL HISTORY PAST [...] 18 Ht 157.5 cm (5' 2") Wt 57 kg (125 lb 10.6 oz) [...] 10/05/2003 45 Last ECHO Result Conclusion ECHO [facility] (more content not included)... [facility] 01-28-2025 Note HNO ID: [id number] Author: NAHEED GREENBERG RN Service: Care Management Author Type: Registered Nurse Type: Care Mgt Initial Assessment Filed: 01/28/2025 14:43 Note Text: CARE MANAGEMENT: ASSESSMENT AND DISCHARGE PLAN SERVICE DATE: January 28, 2025 SERVICE TIME: 8:38 AM biofuels plant manager spoke with patient to complete Care Management Assessment. RN CM left voice message for Daughter/HCPOA: Yuridia Whyte [phone] to call CM to discuss discharge planning. [...] Current Advance Directive: Health Care Power of Blade Worker In Chart: Yes Current Living Arrangements and Support Type of Residence: Assisted Living Facility Does the patient have to climb stairs at home?: No Care Facility Name: [facility]: [facility] - How do you manage to accomplish the following: Needs Assistance: Ambulation, Bathe/Shower, Dress, Going to the bathroom Dependent: Meals/Meal Prep, Medication Management, Transportation to appointments/community Current Services/Equipment Current Post-Acute Service(s): DME Current DME Type: (Walking Sticks and Wheeled Walker) Current Post-Acute Service(s) Provider: None Discharge Planning Patient Goal(s): Be able to go home Griffin of Choice Explained: Griffin of Choice Given: No (Discharge Needs: To be Determined) Discharge Planning Participant(s): Patient Transport at Discharge: Transportation Arrangements: To Be Determined Needs Prior to Discharge: Needs Prior to Discharge: To Be Determined, OT/PT Evaluation, Discharge Transportation Post-Acute Discharge Plan: 01/28/25 2:43 PM RN CM called [facility] spoke with Nurse Adriana in Assisted Living. Adriana confirms patient is a resident in [facility]. She confirmed PCP: Alexey Espino DO - and Pharmacy for Discharge: [facility] in [facility] - Adriana informs CM that patient is not active with HHC or Therapy at the facility prior to admission. Discharge Transportation: To be Determined. CM Dept to Follow. SIGNATURE: Naheed Greenberg RN PATIENT NAME: Na Good DATE: January 28, 2025 TIME: 2:38 PM [facility] 01-28-2025 Note HNO ID: [id number] Author: JULIO CESAR ALVAREZ MD Service: Hospital Medicine Author Type: Physician Type: Progress Notes Filed: 01/28/2025 12:39 Note Text: DEPARTMENT OF HOSPITAL MEDICINE PROGRESS NOTE SERVICE DATE: 01/28/2025 SERVICE TIME: 12:35 PM Hospital Medicine/Primary Attending: Julio Cesar Alvarez MD NIGHT AND WEEKEND COVERAGE: [facility] COVERAGE: Days: [phone], please page attending physician. Nights: [phone], please page [place] Hospitalist Night coverage pager [phone]. Subjective INTERVAL HPI: No acute events overnight. [...] (Src) 97.7 (Axillary) Resp 18 Ht 5' 2" (1.58m) Wt 125 lb 10.6 oz (57.0kg) [...] HFrEF (heart failure with reduced ejection fraction) (HCC) (POA: Status not on file) Difficulty sleeping [...] pt/ot -case mgmt consult pt resides at [facility] Medication and Non-Pharmacologic VTE Prophylaxis/Anticoagulants Anticoagulant AND Antiplatelet Me (more content not included)... [facility] 01-27-2025 Note SARS-COV-2 (AGENT OF COVID-19) RNA: Not detected INFLUENZA A RNA: Not detected INFLUENZA B RNA: Not detected RESPIRATORY SYNCYTIAL VIRUS (RSV) RNA: Not detected [facility] Comment on above: Performed By: #### 2 4321-2 #### [facility] CLIA [id number] [address] [place] 12-27-2024 Note HNO ID: [id number] Author: JOAN CARRIZALES RN Service: ? Author Type: Registered Nurse Type: Nursing Progress Note Filed: 12/27/2024 12:22 Note Text: Report was given to cori at [facility] 12-27-2024 Note HNO ID: [id number] Author: ANDRE SAN LSW Service: Care Management Author Type: Roll Trucker Type: Care Mgt Progress Note Filed: 12/27/2024 11:32 Note Text: CARE MANAGEMENT DISCHARGE NOTE SERVICE DATE: December 27, 2024 SERVICE TIME: 11:28 AM Admission Date: 12/24/2024 LOS: 3 days Discharge Arrangement Services Arranged Provider Name: [facility] Caregiver Assessment Transportation Arrangements Transportation Arrangements: Car Date of Trip: 12/27/24 Time of Trip: 1300 Is Patient Medicaid Pending?: No Was transportation financial coverage discussed with family?: Patient, Family Paver Layer Location: [place] Destination: [facility] Financial Care Management Responsibility: None Handoff Communication: Handoff to: Other Caregiver Other Caregiver Name/Phone: Daughter confirmed pt has homecare services through [facility]. F2f included in d/c envelope Additional Information: CM notified regarding d/c today, return to [facility]. Family confirmed pt's son, Yandel Good, will be transporting pt back to the facility. Envelope with d/c information updated. CM will follow, as needed. SIGNATURE: DALILA Moy, TED PATIENT NAME: Na Good DATE: December 27, 2024 TIME: 11:28 AM [facility] 12-27-2024 Note HNO ID: [id number] Author: LIDIA ARMENTA APRN.CNP Service: Cardiovascular Medicine Author Type: Nurse Practitioner Type: Progress Notes Filed: 12/27/2024 09:43 Note Text: [facility] [place] [facility] Department of Cardiovascular Medicine SECTION OF REGIONAL CARDIOLOGY/[facility] Progress Note Elements of this note, [...] MD Consulting Physician: Liam Smith MD Primary Mirror Maker: SERVICE DATE: December 27, 2024 Interval History: Patient seen and examined sitting up in bed - son at bedside Patient with no cardiac complaints this AM Patient [place] Overall improved since admission Discharge was held [...] mg daily and Toprol 25 mg daily INGOT STRIPPER >> home meds continued on admission - [...] Dr. Matthews and nursing staff. Lidia Armenta APRN.MATERIALS AND CORROSION ENGINEER 12/27/2024 7:36 AM PAST MEDICAL HISTORY PAST [...] HEENT: EOM's intact (more content not included)... [facility] 12-26-2024 Note HNO ID: [id number] Author: LIAM SMITH MD Service: General Internal [...] -- 12/24/24 1830 activity - mobilize patient ([place]) VTE Prophylaxis: VTE prophylaxis appropriate SIGNATURE: Liam Smith MD PATIENT NAME: Na Good DATE: December 26, 2024 TIME: 1:54 PM [facility] 12-25-2024 Note HNO ID: [id number] Author: CATHLEEN THOMAS LSW Service: Care Management Author Type: Roll Trucker Type: Care Mgt Initial Assessment Filed: 12/25/2024 [...] Current Advance Directive: Health Care Power of Blade Worker In Chart: No Entry Level Management Attempted to Assist with AD Completion: Yes Action: Other: See Comment (Asked RN at [facility] to fax to dept.) Current Living Arrangements and Support Lives with: Alone Type of Residence: Assisted Living Facility Does the patient have to climb stairs at home?: No Care Facility Name: [facility] Support: Children, Family members How do you manage to accomplish the following: Independent: Dress, Going to the bathroom Needs Assistance: Ambulation, Bathe/Shower, Meals/Meal Prep, Medication Management Dependent: Transportation to appointments/community Current Services/Equipment Current Post-Acute Service(s): DME Current DME Type: Other: See Comment (walking sticks) Discharge Planning Patient Goal(s): General wellness [place] of Choice Explained: Griffin of Choice Given: Yes Level of Care Discussed: Other: See Comment ([facility]) Are you interested in bedside delivery of your medications? No Discharge Planning Participant(s): Patient, Other person(s) Name/Relationship: RN from [facility] Patient/Family Comments: Caregiver Assessment: Caregiver is ready, willing and able to meet the patient's needs as recommended by the inter-professional team: Yes Name of Caregiver: [facility] Transport at Discharge: Transportation Arrangements: Ambulance Transportation Agency and Phone #:: [facility] [phone] Needs Prior to Discharge: Needs Prior to Discharge: To Be Determined, Discharge Transportation, Other: See Comment, OT/PT Evaluation (medical clearance) Post-Acute Discharge Plan: EMR reviewed. CMSW called and spoke to RN at [facility]; introduced self/role. RN states that she will fax dept POA paperwork. Patient is an 89 year old female who presents with acute on chronic congestive heart failure with PMH of chf (per chart review -July 2024 EF 28%), LV thrombus (eliquis), HTN, tremors, macular degeneration, CAD, [place], and insomnia. RN states that they patient uses [facility] for medications but is unable to confirm which location. Patient uses walking sticks for ambulation and is not active with any skilled services INGOT STRIPPER. Patient is from with [facility] and needs assistance with ADLs. MMT to transport at discharge. Patient is safe and has her needs met. CM assigned will continue to follow for discharge needs. Updated 10:22 am: CMSW met with the patient and patient's daughter, Janelle, at bedside to confirm discharge plan of patient returning to [facility] at discharge; her son will transport her. SIGNATURE: DALILA Salinas PATIENT NAME: Na Good DATE: December 25, 2024 TIME: 9:19 AM [facility] 09-21-2020 Miscellaneous Notes Na called for a refill Pending Prescriptions: Disp Refills lisinopriL (PRINIVIL,ZESTRIL) 20 MG [id number] tab*3 Sig: Take 1 (one) tablet (20 [...] 07/28/2020 Upcoming appt 01/31/2021 Please send to [facility] - [address] [phone] [facility] [place] [id number] - [place], [place] - [address] [facility] [address] [facility] [id number] Please advise documented in this encounter [facility] 11-09-2017 Telephone encounter Note Second VM left for pt. [facility] 11-09-2017 Miscellaneous Notes Second VM left for pt. Left pt a VM asking her to give our office a call back in regard to a medication refill request that we received. Medication requested; lisinopril 20 mg tab. documented in this encounter [facility] 11-07-2017 Telephone encounter Note Left pt a VM asking her to give our office a call back in regard to a medication refill request that we received. Medication requested; lisinopril 20 mg tab. [facility] Evaluation note Diagnosis Benign essential hypertension Essential hypertension, benign Chronic combined systolic and diastolic congestive heart failure (HCC) Insomnia, unspecified type documented in this encounter [facility] Assessments Diagnosis Essential hypertension - Ana cecile [...] tablet in this encounter* Patient Instructions - Escobar Gallegos CNP - 01/15/2018 10:25 AM EDT [...] another for noisy times like a dinner republican in a restaurant. You can change hearing [...] also different styles of hearing aids. A vhknxx-oxf-bcb (BTE) hearing aid connects to a plastic [...] be replaced as the child grows. An iy-ruh-twkkn (ITC) hearing aid fits into the ear [...] can go to your doctor or an sales and marketing intern. He or she will do a hearing test and help you decide which type and style of hearing aid may be best for you. But, if your hearing loss is mild to moderate, you might consider buying a good quality nuhk-hgn-rgudjxt hearing aid, which may be called a [...] Log into your personal health record on [email or web address] Perception and enter K597 in the "Education" box to learn more about "Learning About Hearing Aids." Current as of: February 10, 2018 Content Version: 12. [employer]. Care instructions adapted under license by your healthcare professional. If you have questions about a medical condition or this instruction, always ask your healthcare professional. [employer] disclaims any warranty or liability for your use of this information. documented in this encounter* Patient Instructions* Danii Chen RN - 01/13/2019 10:29 AM EDT .How to contact your Care Team: Provider: Rubin Chirinos MD [facility] Nurse: Danii Chen RN In case of an emergency please call 911. REFILLS: When in need for refills please call your care team or the office at [phone]. Please include medication name, pharmacy name, and [...] your Care Team: Provider: Rubin Chirinos MD [facility] Nurse: Danii Chen RN documented [...] FoundDocuments on File Type Date Recorded Patient Piercing Specialist Expl anation Advance Directives and Living Will Documents on File Type Date Recorded Patient Piercing Specialist Expl anation Advance Directives and Living Will Documents on File Type Date Recorded Patient Piercing Specialist Expl anation Advance Directives and Livin g Will 02/03/2020 12:00 AM Documents on File Type Date Recorded Patient Piercing Specialist Expl anation Advance Directives and Livin g [...] Marcelo AuD - 12/04/2018 11:34 AM EDT [facility] [address] [place] [address] Name: Na Good : 1935 Date: 12/04/18 [...] for hearing aid use at Dr. Arce's discretion.[place] for hearing aid fitting pending otologic clearance at patient's discretion. Use of good communication strategies such as qegx-eo-ecdm communication and reduction of background noise when possible. The above was explained to the patient and or their guardian and they expressed understanding. Electronically signed by: Clrai Borden, CCC-A 12/04/18 11:34 AM documented in [...] and external ear canal shape. CPT code 34763.50. With the patient in a slightly reclained [...] review the comprehensive hearing test results in [facility] and provided an interpretation to the patient. Indeed it confirmed ZENA symmetric down slopping increase of the INGOT STRIPPER thresholds, normal Type A tympanograms and decreased speech discrimination. 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 Information on the devices and referral to the sales and marketing intern arranged. Assessment/Plan: Bilateral symmetric mild sensorineural hearing [...] 01/13/2019 11:50 AM EDT OFFICE CONSULTATION NOTE [facility] [address] ([address]) [facility] [address] [facility] [phone] Physicians: David Ludwig MD Subjective: Na Good [...] 20-25% in 2000 increased to 40% in 2013 Objective: Physical [...] 01/15/2020 3:33 PM EDT OFFICE CONSULTATION NOTE [facility] [address] ([address]) [facility] [address] [facility] [phone] Physicians: David Ludwig MD Subjective: [...] Problems Addressed: Problem Chf (Congestive Heart Failure) ([facility]) Sees Dr. Chirinos yearly. Mixed Hyperlipidemia Left [...] Directive (Living Will and/or Durable Power of Blade Worker for Health Care)?: Yes What is your [...] conjunction with the immunization order to satisfy [place] Board [place] Pharm[place] Positive ID requirements for [...] week Gets together: Twice a week Attends mormon service: Not on file Active member of [...] Equipment [employer] (DME) [facility] - [address] [facility] [address] [facility] [address] [address] [place] [address] - [place], [place] - [address] [facility] [address] [place] [address] [facility] [address] Objective Blood pressure 133/70, pulse 98, temperature [...] Diagnoses Presbycusis, unspecified laterality Oscar Mendes MD [address] [place] [address] Ceasar Arce MD [address] [place] [address] Status Reason Specialty Diagnoses / Procedures Referred By Contact Referred To Contact Pending Review Cardiology Diagnoses Bruit of left carotid artery Procedures Ultrasound doppler carotid Rubin Chirinos MD [address] [place] [address] Additional Source Comments Assessment & Plan Note [...] decompensated heart failure in the clinic today. [place] [employer] Association functional class I-II. She is [...] section and content) DATE CREATED AUTHOR 04/01/2018 [facility] DATE CREATED AUTHOR AUTHOR'S ORGANIZ ATION 02/04/2020 [facility] DATE CREATED AUTHOR AUTHOR'S ORGANIZ ATION 01/15/2021 [facility] DATE CREATED AUTHOR AUTHOR'S ORGANIZ ATION 03/03/2025 [facility] DATE CREATED AUTHOR AUTHOR'S ORGANIZ ATION 03/05/2025 [facility] DATE CREATED AUTHOR AUTHOR'S ORGANIZ ATION 03/05/2025 [facility] Reason for Visit (unrecogniz ed section and content) Reason Comments Congestive Heart Failure Hypertension Hyperlipidemia Reason Comments Hearing Loss Pt req to see Dr JIGNESH Aguilar PT Status Reason Specialty Diagnoses / Procedures Referred By Contact Referred To Contact Closed Otolaryngology Diagnoses Presbycusis, unspecified laterality Oscar Mendes MD [facility] [place] [address] Ceasar Arce MD [address] [facility] [address] [place] [address] Reason Comments Medicare Wellness Visit VM to schedule M W Status Reason Specialty Diagnoses / Procedures Referred By Contact Referred To Contact Closed Specialty Services Required/Patient' s Best [facility] Audiology Diagnoses Sudden hearing loss, unspecified laterality Ceasar Arce MD [address] [facility] [address] [place] [id number] Kriss Marcelo AuD Reason Comments Hearing Loss left ear Reason Comments Follow-up Denies Chest pain,pr essure,SOB,Swelling Reason Comments Hypertension Hyperlipidemia Hypothyroidism Reason Comments Follow-up yearly Status Reason Specialty Diagnoses / Procedures Referred By Contact Referred To Contact Pending Review Cardiology Diagnoses Bruit of left carotid artery Procedures Ultrasound doppler carotid Rubin Chirinos MD [address] [place] [address] [address] Reason Onset Date Comments Medicare Wellness Visit Fall Risk Screening 12/08/2019 Reason Comments Hypertension Hyperlipidemia Congestive Heart Failure Reason Onset Date Comments Medication Refill 09/21/2020 Reason Comments Medication Refill Care Teams (unrecognized sec tion and content) Household Personal Assistant Relationship Specialty Start Date End Date Mary Anika VERONICA Joe PCP - General Nurse Practitioner 06/15/17 11/28/17 David Ludwig MD PCP - General Family Medicine 11/29/17 David Ludwig MD [address] [place] [id number] PCP - [facility] - [...] BE BASED ON THE PRIMARY CLINICAL RECORDS. [employer] provides no warranty or guarantee of the accuracy or completeness of information in this document.
[2025-03-23 08:27] LABS: Anion Gap 9 (5-15); BUN 42 mg/dL (4-19); BUN/Creat Ratio 39.6 RATIO (10-20); Calcium,Total 9.2 mg/dL (7.6-11.0); Carbon Dioxide 28.9 mmol/L (21.0-32.0); Chloride 104 mmol/L (98-108); Glucose 79 mg/dL (70-99); Potassium 4.4 mmol/L (3.3-5.1)
== END ==
LOC: OLS.ACH2 05:00
PROVIDERS: Visit Provider Internal Medicine
DX: I50.22 Chronic systolic (congestive) heart failure (principal); R53.82 Chronic fatigue, unspecified; I95.1 Orthostatic hypotension
CPT/HCPCS: 36415; 80048

== ENCOUNTER → 2025-03-30 | Outpatient (REF) | payer MEDICARE, OTHER, SELFPAY ==
--- OUTSIDE RECORDS SUMMARY | 2025-03-30 04:28 | XMS RPT_ITS | CCD ---
Author Organization [facility] Care Team Providers Care [employer] Workers Name Role Phone Anika Hernandez Unavailable Unavailable [...] HARKINS Primary Care Unavailab le CROUCH, DAVID MORTENSEN Attending Unavailab le CRODAVID HARKINS Primary Care [...] Corticosteroids (1 source) Cortisone Drug Allergy 6 [facility] (20 sources) cortisone; Translations: [CORTISONE] Propensity to adverse reactions to drug 2 [facility] Work Phone: Medications Current Medications Medication Drug [...] (two) times a day. Active Flu Vaccine [id number](65yr Up)(Pf)180 McG/0.5 Ml Intramuscular Syringe (1 source) Start: 12-27-2017 End: 12-27-2017 flu vaccine tv 2017, 65yr up,,PF, (FLUZONE HIGH DOSE) syringe Indications: Need for influenza vaccination Sign this order in conjunction with the immunization order to satisfy [place] Board of Pharmacy Positive ID requirements for [...] Anion gap [Moles/Vol] 13 mmol/L Normal 8-15 [facility] Comment on above: Order Comment: Speci men Type: BLOOD SPECIMENOrdering Facility: [facility] Address: [address] [place] [address] [place] [address] Performed By: #### 1 9123-9, 69320-4, 87840-7 ####BAIRD LABORATORYCLIA [id number] [place] [address] [place] Calcium [Mass/Vol] 9.1 mg/dL Normal 8.5-10.2 [facility] Comment on above: Order Comment: Speci men Type: BLOOD SPECIMENOrdering Facility: [facility] Address: [address] [place] [address] Performed By: #### 1 9123-9, 81721-7, 34136-2 ####BAIRD LABORATORYCLIA [id number] [place] [address] [place] Chloride [Moles/Vol] 98 mmol/L Normal 98-107 [facility] Comment on above: Order Comment: Speci men Type: BLOOD SPECIMENOrdering Facility: [facility] Address: [address] [place] [address] Performed By: #### 1 9123-9, 15771-9, 12503-2 ####BAYSIDE LABORATORYCLIA [id number] [place] [address] [place] CO2 [Moles/Vol] 25 mmol/L Normal 22-30 [facility] Comment on above: Order Comment: Speci men Type: BLOOD SPECIMENOrdering Facility: [facility] Address: [address] [place] [address] Performed By: #### 1 9123-9, 72426-4, 01286-6 ####BAYSIDE LABORATORYCLIA [id number] [place] [address] [place] Creatinine [Mass/Vol] 0.93 mg/dL Normal 0.58-0.96 [facility] Comment on above: Order Comment: Speci men Type: BLOOD SPECIMENOrdering Facility: [facility] Address: [address] [place] [address] Performed By: #### 1 9123-9, 76807-1, 98109-3 ####BAYSIDE LABORATORYCLIA [id number] [place] [id number] [place] eGFRcr SerPlBld CKD-EPI 2020 59 mL/min/1.73m??? Low >=60 [facility] Comment on above: Order Comment: Speci men Type: BLOOD SPECIMENOrdering Facility: [facility] Address: [address] [place] [address] Result Comment: Radha mated Glomerular Filtration Rate [...] actual GFR. Performed By: #### 1 9123-9, 41252-7, 59487-3 ####BAYSIDE LABORATORYCLIA [id number] [place] [id number] [place] Glucose [Mass/Vol] 93 mg/dL Normal 74-99 [facility] Comment on above: Order Comment: Vita florez Type: BLOOD SPECIMENOrdering Facility: [facility] Address: [address] [place], [place] [address] Result Comment: [place] Diabetes Association (ADA) provides guidance for cutoff [...] Standards of Medical Care in Diabetes 2016, [place] Diabetes Association. Diabetes Care. 2016.39(Suppl 1). Performed By: #### 1 9123-9, 31398-4, 53339-8 ####BAYSIDE LABORATORYCLIA [id number] [place] [id number] [place] Potassium [Moles/Vol] 4.1 mmol/L Normal 3.7-5.1 [facility] Comment on above: Order Comment: Vita florez Type: BLOOD SPECIMENOrdering Facility: [facility] Address: [address] [place] [address] Performed By: #### 1 9123-9, 15015-1, 80461-1 ####BAYSIDE LABORATORYCLIA [id number] [place] [address] [place] Sodium [Moles/Vol] 136 mmol/L Normal 136-144 [facility] Comment on above: Order Comment: Speci men Type: BLOOD SPECIMENOrdering Facility: [facility] Address: [address] [place] [address] Performed By: #### 1 9123-9, 19870-9, 73235-4 ####BAIRD LABORATORYCLIA [id number] [address] [facility] Urea nitrogen [Mass/Vol] 29 mg/dL High 7-21 [facility] Comment on above: Order Comment: Speci men Type: BLOOD SPECIMENOrdering Facility: [facility] Address: [address] [place] [address] Performed By: #### 1 9123-9, 12777-0, 21052-9 ####BA[facility] LABORATORYCLIA [id number] [address] [place] CBC panel Auto (Bld)on 03-04 Erythrocyte distribution width (RBC) [Ratio] 16.9 % High 11.5-15.0 [facility] Comment on above: Order Comment: Speci men Type: BLOOD SPECIMENOrdering Facility: [facility] Address: [address] [place] [address] Performed By: #### 5 8410-2 ####BAIRD LABORATORYCLIA [id number] [address] [place] Hematocrit (Bld) [Volume fraction] 42.7 % Normal 36.0-46.0 [facility] Comment on above: Order Comment: Speci men Type: BLOOD SPECIMENOrdering Facility: [facility] Address: [address] [place] [address] Performed By: #### 5 8410-2 ####BAIRD LABORATORYCLIA [id number] [address] Hemoglobin (Bld) [Mass/Vol] 14.1 g/dL Normal 11.5-15.5 [facility] Comment on above: Order Comment: Speci men Type: BLOOD SPECIMENOrdering Facility: [facility] Address: [address] [place] [address] Performed By: #### 5 8410-2 ####BAIRD LABORATORYCLIA [id number] [address] MCH (RBC) [Entitic mass] 28.9 pg Normal 26.0-34.0 [facility] Comment on above: Order Comment: Speci men Type: BLOOD SPECIMENOrdering Facility: [facility] Address: [address] [place] [address] Performed By: #### 5 8410-2 ####BAIRD LABORATORYCLIA [id number] [address] MCHC (RBC) [Mass/Vol] 33.0 g/dL Normal 30.5-36.0 [facility] Comment on above: Order Comment: Speci men Type: BLOOD SPECIMENOrdering Facility: [facility] Address: [address] [place] [address] Performed By: #### 5 8410-2 ####BAIRD LABORATORYCLIA [id number] [address] MCV (RBC) [Entitic vol] 87.5 fL Normal 80.0-100.0 [facility] Comment on above: Order Comment: Speci men Type: BLOOD SPECIMENOrdering Facility: [facility] Address: [address] [place] [address] Performed By: #### 5 8410-2 ####BAIRD LABORATORYCLIA [id number] [address] Nucleated RBC (Bld) [#/Vol] 10*3/uL Normal <0.01 [facility] Comment on above: Order Comment: Speci men Type: BLOOD SPECIMENOrdering Facility: [facility] Address: [address] [place] [address] Performed By: #### 5 8410-2 ####BAIRD LABORATORYCLIA [id number] [address] Platelet mean volume (Bld) [Entitic vol] 10.4 fL Normal 9.0-12.7 [facility] Comment on above: Order Comment: Speci men Type: BLOOD SPECIMENOrdering Facility: [facility] Address: [address] [place] [address] Performed By: #### 5 8410-2 ####BAIRD LABORATORYCLIA [id number] [address] [place] Platelets (Bld) [#/Vol] 337 10*3/uL Normal 150-400 [facility] Comment on above: Order Comment: Speci men Type: BLOOD SPECIMENOrdering Facility: [facility] Address: [address] [place] [address] Performed By: #### 5 8410-2 ####BAYSIDE LABORATORYCLIA [id number] [place] [address] [place] RBC (Bld) [#/Vol] 4.88 10*6/uL Normal 3.90-5.20 [facility] Comment on above: Order Comment: Speci men Type: BLOOD SPECIMENOrdering Facility: [facility] Address: [address] [place] [address] Performed By: #### 5 8410-2 ####BAYSIDE LABORATORYCLIA [id number] [address] WBC (Bld) [#/Vol] 12.10 10*3/uL High 3.70-11.00 [facility] Comment on above: Order Comment: Speci men Type: BLOOD SPECIMENOrdering Facility: [facility] Address: [address] [place] [address] Performed By: #### 5 8410-2 ####BAYSIDE LABORATORYCLIA [id number] [address] [place] Magnesium SerPl-mCncon 03-04 Magnesium [Mass/Vol] 2.3 mg/dL Normal 1.7-2.3 [facility] Comment on above: Order Comment: Speci men Type: BLOOD SPECIMENOrdering Facility: [facility] Address: [address] [place] [address] Performed By: #### 1 9123-9, 71507-3, 65835-3 ####BA[facility] LABORATORYCLIA [id number] [address] [place] NT-proBNP SerPl-mCncon 03-04 Natriuretic peptide.B prohormone N-Terminal [Mass/Vol] 87520 pg/mL High <450 [facility] Comment on above: Order Comment: Speci men Type: BLOOD SPECIMENOrdering Facility: [facility] Address: [address] [place] [id number] Performed By: #### 1 9123-9, 92370-9, 78746-9 ####BAYSIDE LABORATORYCLIA [id number] [address] THERAPY NTon 03-04-2025 THERAPY NT HNO ID: [id number] Author: PEYTON MARX RRT Service: Respiratory Therapy Author Type: Registered Resp Therapist Type: Therapy (PT/OT/Speech/Resp) Filed: 03/04/2025 23:46 Note Text: RESPIRATORY THERAPY PROGRESS NOTE SERVICE DATE: 03/04/2025 SERVICE TIME: 2336 Overnight Trending Pulse ox. study stopped. Pt is refusing pulse ox on finger. RN and MAINFRAME PROGRAMMER aware SIGNATURE: Peyton Marx RRT PATIENT NAME: Na Good DATE: March 04, 2025 TIME: 11:45 PM PAGER/CONTACT #: Normal [facility] THERAPY NT HNO ID: [id number] Author: KRISS ZAMORA PT, DPT Service: Physical Therapy Author Type: Physical Therapist Type: Therapy (PT/OT/Speech/Resp) Filed: 03/04/2025 14:04 Note Text: Summary: PT evalaution Physical Therapy Evaluation Summary SERVICE DATE: 03/04/2025 SERVICE TIME: 1344 to 1356 ROOM: [id number] PT 6 Clicks Score: 18 DISCHARGE RECOMMENDATIONS Home PT Recommended Discharge Disposition Comments: at [facility] Anticipated Discharge Needs: Physical Assist at Home, Supervision at Home Physical Assist at Home for: Cleaning, Laundry, Meals, Medication Management, Shopping, Transportation, Self Care, Transfers Supervision at Home due to: Other: See Comment (for safety) ASSESSMENT Response to Therapy Interventions: Good Participation in Activities Pt tolerated mobility well with ww, uses walking sticks (2) normally. Would be appropriate to return home to [facility] with previous level of assist and home PT. PRECAUTIONS Bed/Chair Alarm, Fall Risk, Lines/Tubes/Drains CURRENT HOSPITAL COURSE Patient presents with SOB, admitted for acute on chronic CHF Relevant Past Medical History: ASCVA, CAD, CHF, HTN, insomnia, LV mural thrombus, tremor, cardiomyopathy HOME LIVING Patient Lives With: Facility Care, Other: See Comment Comments: [facility] Assistance Available: 24-Hour Entry To Home: No [...] DATE: March 04, 2025 TIME: 2:04 PM [facility] THERAPY NT HNO ID: [id number] Author: CAROLE HUGHES OT/Amy Service: Occupational Therapy Author Type: Occupational Therapist Type: Therapy (PT/OT/Speech/Resp) Filed: 03/04/2025 11:59 Note Text: Summary: OT Evaluation Occupational Therapy Evaluation Summary SERVICE DATE: 03/04/2025 SERVICE TIME: 1119 to 1152 ROOM: [id number] OT 6 Clicks Score: 18 DISCHARGE RECOMMENDATIONS [...] SOB, SpO2 >93% throughout, pt is extremely [place] with baseline visual impairments, appears to be near baseline with ADLs, eager to return to [facility] PRECAUTIONS Bed/Chair Alarm, Fall Risk, Lines/Tubes/Drains CURRENT HOSPITAL COURSE Patient presents with SOB, admitted for acute on chronic CHF Relevant Past Medical History: ASCVA, CAD, CHF, HTN, insomnia, LV mural thrombus, tremor, cardiomyopathy HOME LIVING Patient Lives With: Facility Care, Other: See Comment Comments: [facility] Assistance Available: 24-Hour Entry To Home: No [...] pt is eager to return home to [facility] COGNITION Orientation Deficits: (AOx4) Responsiveness: Alert, Awake Follows Commands: 3-step Commands THERAPY DIAGNOSIS Reduced mobility-other, Decreased activities of daily living (ADL), Muscle Weakness (generalized) TREATMENT INTERVENTIONS Evaluation, Self Prison Management (85485) Timed Code Treatment (minutes): 18 Skilled Treatment Time (minutes): 33 TRAINING AND EDUCATION PROVIDED Activity Adaptation/Slusher Operator y Strategies, Adaptive Equipment/DME, Bed Mobility, Benefits of In-Hospital Mobility, Cognitive Skills, Command Following, Discharge Planning, Expected Functional Level, Functional Mobility Involving ADLs, Insight into Deficits, Orientation, Memory/Attention, Positioning, Safety/Judgment, Role of Occupational Therapy, Sitting Balance to Improve [place] with ADLs/Self-Care, Standing Balance to Improve [place] with ADLs/Self-Care, Transfer - Sit to Stand [...] Chair Toilet/Commode (more content not included)... Normal [facility] Basic metabolic 2000 panelon 03-03-2025 Anion gap [Moles/Vol] 13 mmol/L Normal -15 [facility] Comment on above: Order Comment: Speci men Type: BLOOD SPECIMENOrdering Facility: [facility] Address: [address] [place] [address] Performed By: #### 2 4321-2, 74706-3 ####BAIRD LABORATORYCLIA [id number] [place] [address] [place] Calcium [Mass/Vol] 9.6 mg/dL Normal 8.5-10.2 [facility] Comment on above: Order Comment: Speci men Type: BLOOD SPECIMENOrdering Facility: [facility] Address: [address] [place] [address] Performed By: #### 2 4321-2, ####BAIRD LABORATORYCLIA [id number] [place] [address] [place] Chloride [Moles/Vol] 99 mmol/L Normal 98-107 [facility] Comment on above: Order Comment: Speci men Type: BLOOD SPECIMENOrdering Facility: [facility] Address: [address] [place] [address] Performed By: #### 2 4321-2, ####BAIRD LABORATORYCLIA [id number] [place] [address] [place] CO2 [Moles/Vol] 25 mmol/L Normal 22-30 [facility] Comment on above: Order Comment: Speci men Type: BLOOD SPECIMENOrdering Facility: [facility] Address: [address] [place] [address] Performed By: #### 2 4321-2, ####BAIRD LABORATORYCLIA [id number] [place] [address] [place] Creatinine [Mass/Vol] 1.05 mg/dL High 0.58-0.96 [facility] Comment on above: Order Comment: Speci men Type: BLOOD SPECIMENOrdering Facility: [facility] Address: [address] [place] [id number] Performed By: #### 2 4321-2, ####BAIRD LABORATORYCLIA [id number] [address] [place] eGFRcr SerPlBld CKD-EPI 2020 51 mL/min/1.73m??? Low >=60 [facility] Comment on above: Order Comment: Speci men Type: BLOOD SPECIMENOrdering Facility: [facility] Address: [address] [place] [address] Result Comment: Radha mated Glomerular Filtration Rate [...] actual GFR. Performed By: #### 2 432-, ####BAYSIDE LABORATORYCLIA [id number] [place] [address] [place] Glucose [Mass/Vol] 100 mg/dL High 74-99 [facility] Comment on above: Order Comment: Vita florez Type: BLOOD SPECIMENOrdering Facility: [facility] Address: [address] [place] [address] Result Comment: The [place] Diabetes Association (ADA) provides guidance for cutoff [...] Standards of Medical Care in Diabetes 2016, [place] Diabetes Association. Diabetes Care. 2016.39(Suppl 1). Performed By: #### 2 4320-05, ####BAYSIDE LABORATORYCLIA [id number] [place] [address] [place] Potassium [Moles/Vol] 4.1 mmol/L Normal 3.7-5.1 [facility] Comment on above: Order Comment: Vita florez Type: BLOOD SPECIMENOrdering Facility: [facility] Address: [address] [place] [address] Performed By: #### 2 432-, ####BAYSIDE LABORATORYCLIA [id number] [place] [address] [place] Sodium [Moles/Vol] 137 mmol/L Normal 136-144 [facility] Comment on above: Order Comment: Speci men Type: BLOOD SPECIMENOrdering Facility: [facility] Address: [address] [place] [address] [place] [address] Performed By: #### 2 4321-2, 62787-2 ####BAIRD LABORATORYCLIA [id number] [address] [place] Urea nitrogen [Mass/Vol] 30 mg/dL High 7-21 [facility] Comment on above: Order Comment: Speci men Type: BLOOD SPECIMENOrdering Facility: [facility] Address: [address] [place] [address] Performed By: #### 2 432-2, ####BAIRD LABORATORYCLIA [id number] [address] [place] CBC panel Auto (Bld)on 03-03 Erythrocyte distribution width (RBC) [Ratio] 17.2 % High 11.5-15.0 [facility] Comment on above: Order Comment: Speci men Type: BLOOD SPECIMENOrdering Facility: [facility] Address: [address] [place] [address] Performed By: #### 5 8410-2 ####BAIRD LABORATORYCLIA [id number] [address] [place] Hematocrit (Bld) [Volume fraction] 41.9 % Normal 36.0-46.0 [facility] Comment on above: Order Comment: Speci men Type: BLOOD SPECIMENOrdering Facility: [facility] Address: [address] [place] [address] Performed By: #### 5 8410-2 ####BAIRD LABORATORYCLIA [id number] [address] [place] Hemoglobin (Bld) [Mass/Vol] 13.9 g/dL Normal 11.5-15.5 [facility] Comment on above: Order Comment: Speci men Type: BLOOD SPECIMENOrdering Facility: [facility] Address: [address] [place] [address] Performed By: #### 5 8410-2 ####BAIRD LABORATORYCLIA [id number] [address] MCH (RBC) [Entitic mass] 29.3 pg Normal 26.0-34.0 [facility] Comment on above: Order Comment: Speci men Type: BLOOD SPECIMENOrdering Facility: [facility] Address: [address] [place] [address] Performed By: #### 5 8410-2 ####BAIRD LABORATORYCLIA [id number] [address] MCHC (RBC) [Mass/Vol] 33.2 g/dL Normal 30.5-36.0 [facility] Comment on above: Order Comment: Speci men Type: BLOOD SPECIMENOrdering Facility: [facility] Address: [address] [place] [address] Performed By: #### 5 8410-2 ####BAIRD LABORATORYCLIA [id number] [address] MCV (RBC) [Entitic vol] 88.4 fL Normal 80.0-100.0 [facility] Comment on above: Order Comment: Speci men Type: BLOOD SPECIMENOrdering Facility: [facility] Address: [address] [place] [address] Performed By: #### 5 8410-2 ####BAIRD LABORATORYCLIA [id number] [address] Nucleated RBC (Bld) [#/Vol] 10*3/uL Normal <0.01 [facility] Comment on above: Order Comment: Speci men Type: BLOOD SPECIMENOrdering Facility: [facility] Address: [address] [place] [address] Performed By: #### 5 8410-2 ####BAIRD LABORATORYCLIA [id number] [address] Platelet mean volume (Bld) [Entitic vol] 10.9 fL Normal 9.0-12.7 [facility] Comment on above: Order Comment: Speci men Type: BLOOD SPECIMENOrdering Facility: [facility] Address: [address] [place] [address] Performed By: #### 5 8410-2 ####BAYSIDE LABORATORYCLIA [id number] [address] Platelets (Bld) [#/Vol] 366 10*3/uL Normal 150-400 [facility] Comment on above: Order Comment: Speci men Type: BLOOD SPECIMENOrdering Facility: [facility] Address: [address] [place] [address] Performed By: #### 5 8410-2 ####BAYSIDE LABORATORYCLIA [id number] [address] [facility] RBC (Bld) [#/Vol] 4.74 10*6/uL Normal 3.90-5.20 [facility] Comment on above: Order Comment: Speci men Type: BLOOD SPECIMENOrdering Facility: [facility] Address: [address] [place] [address] Performed By: #### 5 8410-2 ####BAYSIDE LABORATORYCLIA [id number] [address] WBC (Bld) [#/Vol] 12.19 10*3/uL High 3.70-11.00 [facility] Comment on above: Order Comment: Speci men Type: BLOOD SPECIMENOrdering Facility: [facility] Address: [address] [place] [address] Performed By: #### 5 8410-2 ####BAYSIDE LABORATORYCLIA [id number] [place] [id number] [facility] CONSULTon 03-03-2025 CONSULT HNO ID: [id number] Author: LIDIA ARMENTA APRN.ASSOCIATE PROFESSOR OF EDUCATION Service: Cardiovascular Medicine Author Type: Nurse Practitioner [...] 1+ MR, trace TR, 1-2+ AR, trace NM, mid ascending 3 cm, trivial Pericardial effusion [...] 03/03/2025 Time: 10:30 AM [facility] [place] [facility] Rayo Department of Cardiovascular Medicine SECTION OF [facility] Consultation Note Name: Na Good : 1935 Primary Physician: Alexey Vinson Sr, DO Consulting Physician: Bismark Sales MD Primary Saddle And Side Wire Stitcher: SERVICE DATE: March 03, 2025 REASON FOR [...] to [facility]. She is short of [...] - GD (more content not included)... Normal [facility] Magnesium SerPl-mCncon 03-03 Magnesium [Mass/Vol] 2.6 mg/dL High 1.7-2.3 [facility] Comment on above: Order Comment: Speci men Type: BLOOD SPECIMENOrdering Facility: [facility] Address: [address] [place] [address] Performed By: #### 2 4321-2, 17710-7 ####BAYSIDE LABORATORYCLIA [id number] [place] [address] [facility] NURSING PROGon 03-03-2025 NURSING PROG HNO ID: [id number] Author: ESCOBAR BRAXTON RN Service: Nursing Author Type: Registered Nurse Type: Nursing Progress Note Filed: 03/03/2025 15:19 Note Text: PATIENT EDUCATION HEART FAILURE PATIENT NAME: Na Good PATIENT LOCATION: [place] [address] [address] SURVIVAL SKILLS: Low Sodium Diet Weight Monitoring [...] family, Lucero, is at bedside. Pt is [place] and does not have her hearing aids. Friend states she resides at [facility] and gets medications and all meals provided. All of pt's children reside out of state, however, one of her children comes in each month to visit. Heart Failure Zones and handouts relating to survival skills left at bedside. Friend states pt's daughter will be here tomorrow or . Contact information in folder. Electronically Signed By: Escobar Braxton [facility] ALLIED HEALTHon 03-02-2025 ALLIED HEALTH HNO ID: [id number] Author: ALEX VENTURA CT Service: Radiology Author [...] PATIENT PRESENTS WITH AN IMPLANTABLE OR ATTACHED OTR FLATBED DRIVER: No RADIOLOGY DEPARTMENT: General X-ray: Exam(s) Completed: Chest X-Ray PERIPHERAL IV DATA: Not applicable SIGNED BY: LAUREL Powell March 02, 2025 2:37 PM [facility] ALT SerPl-cCncon 03-02-2025 ALT [Catalytic activity/Vol] 45 U/L High 7-38 [facility] Comment on above: Order Comment: Vita florez Type: BLOOD SPECIMENOrdering Facility: [facility] Address: [address] [place] [address] Performed By: #### 1 920-8, HSL8255, 1741-09, 3015-06, 1987-08 ####BAYSIDE LABORATORYCLIA [id number] [place] [address] [place] AST SerPl-cCncon 03-02-2025 AST [Catalytic activity/Vol] 52 U/L High 13-35 [facility] Comment on above: Order Comment: Vita florez Type: BLOOD SPECIMENOrdering Facility: [facility] Address: [address] [place] [address] Performed By: #### 1 920-8, OXM1067, 1746, 3015-06, 1987-08 ####BAIRD LABORATORYCLIA [id number] [place] [address] [place] CBC W Auto Differential pane l (Bld)on 03-02-2025 Basophils (Bld) [#/Vol] 0.06 10*3/uL Normal <0.11 [facility] Comment on above: Order Comment: Speci men Type: BLOOD SPECIMENOrdering Facility: [facility] Address: [address] [place] [address] Performed By: #### 5 7021-8 ####BAIRD LABORATORYCLIA [id number] [place], [place] [address] [place] Basophils/100 WBC (Bld) 0.5 % Normal [facility] Comment on above: Order Comment: Speci men Type: BLOOD SPECIMENOrdering Facility: [facility] Address: [address] [place] [address] Performed By: #### 5 7021-8 ####BAIRD LABORATORYCLIA [id number] [address] [place] Differential cell count method Nom (Bld) Auto Normal [facility] Comment on above: Order Comment: Speci men Type: BLOOD SPECIMENOrdering Facility: [facility] Address: [address] [place] [address] Performed By: #### 5 7021-8 ####BAIRD LABORATORYCLIA [id number] [place] [address] [place] Eosinophils (Bld) [#/Vol] 10*3/uL Normal <0.46 [facility] Comment on above: Order Comment: Speci men Type: BLOOD SPECIMENOrdering Facility: [facility] Address: [address] [place] [address] Performed By: #### 5 7021-8 ####BAIRD LABORATORYCLIA [id number] [address] [place] Eosinophils/100 WBC (Bld) 0.1 % Normal [facility] Comment on above: Order Comment: Speci men Type: BLOOD SPECIMENOrdering Facility: [facility] Address: [address] [place] [address] Performed By: #### 5 7021-8 ####BAIRD LABORATORYCLIA [id number] [place] [address] [place] Erythrocyte distribution width (RBC) [Ratio] 17.2 % High 11.5-15.0 [facility] Comment on above: Order Comment: Speci men Type: BLOOD SPECIMENOrdering Facility: [facility] Address: [address] [place] [address] Performed By: #### 5 7021-8 ####BAIRD LABORATORYCLIA [id number] [place] [address] [place] Hematocrit (Bld) [Volume fraction] 42.3 % Normal 36.0-46.0 [facility] Comment on above: Order Comment: Speci men Type: BLOOD SPECIMENOrdering Facility: [facility] Address: [address] [place] [address] Performed By: #### 5 7021-8 ####BAIRD LABORATORYCLIA [id number] [place] [address] [place] Hemoglobin (Bld) [Mass/Vol] 14.1 g/dL Normal 11.5-15.5 [facility] Comment on above: Order Comment: Speci men Type: BLOOD SPECIMENOrdering Facility: [facility] Address: [address] [place] [address] Performed By: #### 5 7021-8 ####BAIRD LABORATORYCLIA [id number] [address] [place] Immature granulocytes (Bld) [#/Vol] 0.07 10*3/uL Normal <0.10 [facility] Comment on above: Order Comment: Speci men Type: BLOOD SPECIMENOrdering Facility: [facility] Address: [address] [place] [address] Performed By: #### 5 7021-8 ####BIARD LABORATORYCLIA [id number] [address] [place] Immature granulocytes/100 WBC (Bld) 0.6 % Normal [facility] Comment on above: Order Comment: Speci men Type: BLOOD SPECIMENOrdering Facility: [facility] Address: [address] [place] [address] Performed By: #### 5 7021-8 ####BAIRD LABORATORYCLIA [id number] [address] [place] Lymphocytes (Bld) [#/Vol] 1.26 10*3/uL Normal 1.00-4.00 [facility] Comment on above: Order Comment: Speci men Type: BLOOD SPECIMENOrdering Facility: [facility] Address: [address] [place] [address] Performed By: #### 5 7021-8 ####BAIRD LABORATORYCLIA [id number] [address] Lymphocytes/100 WBC (Bld) 10.8 % Normal [facility] Comment on above: Order Comment: Speci men Type: BLOOD SPECIMENOrdering Facility: [facility] Address: [address] [place] [address] Performed By: #### 5 7021-8 ####BAIRD LABORATORYCLIA [id number] [address] MCH (RBC) [Entitic mass] 29.6 pg Normal 26.0-34.0 [facility] Comment on above: Order Comment: Speci men Type: BLOOD SPECIMENOrdering Facility: [facility] Address: [address] [place] [address] Performed By: #### 5 7021-8 ####BAIRD LABORATORYCLIA [id number] [address] MCHC (RBC) [Mass/Vol] 33.3 g/dL Normal 30.5-36.0 [facility] Comment on above: Order Comment: Speci men Type: BLOOD SPECIMENOrdering Facility: [facility] Address: [address] [place] [address] Performed By: #### 5 7021-8 ####BAIRD LABORATORYCLIA [id number] [address] MCV (RBC) [Entitic vol] 88.9 fL Normal 80.0-100.0 [facility] Comment on above: Order Comment: Speci men Type: BLOOD SPECIMENOrdering Facility: [facility] Address: [address] [place] [address] Performed By: #### 5 7021-8 ####BAIRD LABORATORYCLIA [id number] [place] [address] [place] Monocytes (Bld) [#/Vol] 1.08 10*3/uL High <0.87 [facility] Comment on above: Order Comment: Speci men Type: BLOOD SPECIMENOrdering Facility: [facility] Address: [address] [place] [address] Performed By: #### 5 7021-8 ####BAIRD LABORATORYCLIA [id number] [place] [id number] [place] Monocytes/100 WBC (Bld) 9.3 % Normal [facility] Comment on above: Order Comment: Speci men Type: BLOOD SPECIMENOrdering Facility: [facility] Address: [address] [place] [address] Performed By: #### 5 7021-8 ####BAIRD LABORATORYCLIA [id number] [place] [address] [place] Neutrophils (Bld) [#/Vol] 9.14 10*3/uL High 1.45-7.50 [facility] Comment on above: Order Comment: Speci men Type: BLOOD SPECIMENOrdering Facility: [facility] Address: [address] [place] [address] Performed By: #### 5 7021-8 ####BAIRD LABORATORYCLIA [id number] [place] [id number] [place] Neutrophils/100 WBC (Bld) 78.7 % Normal [facility] Comment on above: Order Comment: Speci men Type: BLOOD SPECIMENOrdering Facility: [facility] Address: [address] [place] [address] Performed By: #### 5 7021-8 ####BAIRD LABORATORYCLIA [id number] [place] [id number] [place] Nucleated RBC (Bld) [#/Vol] 10*3/uL Normal <0.01 [facility] Comment on above: Order Comment: Speci men Type: BLOOD SPECIMENOrdering Facility: [facility] Address: [address] [place] [address] Performed By: #### 5 7021-8 ####BAIRD LABORATORYCLIA [id number] [place] [id number] [place] Nucleated RBC/100 WBC (Bld) [Ratio] 0.0 /100 WBC Normal [facility] Comment on above: Order Comment: Speci men Type: BLOOD SPECIMENOrdering Facility: [facility] Address: [address] [place] [address] Performed By: #### 5 7021-8 ####BAIRD LABORATORYCLIA [id number] [place] [address] [place] Platelet mean volume (Bld) [Entitic vol] 10.8 fL Normal 9.0-12.7 [facility] Comment on above: Order Comment: Speci men Type: BLOOD SPECIMENOrdering Facility: [facility] Address: [address] [place] [address] Performed By: #### 5 7021-8 ####BAIRD LABORATORYCLIA [id number] [address] [place] Platelets (Bld) [#/Vol] 380 10*3/uL Normal 150-400 [facility] Comment on above: Order Comment: Speci men Type: BLOOD SPECIMENOrdering Facility: [facility] Address: [address] [place] [address] Performed By: #### 5 7021-8 ####BAIRD LABORATORYCLIA [id number] [place] [address] [place] RBC (Bld) [#/Vol] 4.76 10*6/uL Normal 3.90-5.20 [facility] Comment on above: Order Comment: Speci men Type: BLOOD SPECIMENOrdering Facility: [facility] Address: [address] [place] [address] Performed By: #### 5 7021-8 ####BAIRD LABORATORYCLIA [id number] [address] [place] WBC (Bld) [#/Vol] 11.62 10*3/uL High 3.70-11.00 [facility] Comment on above: Order Comment: Speci men Type: BLOOD SPECIMENOrdering Facility: [facility] Address: [address] [place] [address] Performed By: #### 5 7021-8 ####BAIRD LABORATORYCLIA [id number] [address] CRP SerPl-mCncon 03-02-2025 CRP [Mass/Vol] 0.4 mg/dL Normal <0.9 [facility] Comment on above: Order Comment: Speci men Type: BLOOD SPECIMENOrdering Facility: [facility] Address: [address] [place] [address] Performed By: #### 1 920-8, WUA8083, 1742-6, 3016-3, 1987- ####BAIRD LABORATORYCLIA [id number] [address] Comprehensive metabolic 2000 panelon 03-02-2025 Albumin [Mass/Vol] 4.2 g/dL Normal 3.9-4.9 [facility] Comment on above: Order Comment: Speci men Type: BLOOD SPECIMENOrdering Facility: [facility] Address: [address] [place] [address] Performed By: #### 2 4323-8, 19010-1, 19698-9 ####BAIRD LABORATORYCLIA [id number] [address] ALP [Catalytic activity/Vol] 49 U/L Normal 34-123 [facility] Comment on above: Order Comment: Speci men Type: BLOOD SPECIMENOrdering Facility: [facility] Address: [address] [place] [address] Performed By: #### 2 4323-8, 07106-7, 46898-1 ####BAIRD LABORATORYCLIA [id number] [address] ALT [Catalytic activity/Vol] Normal [facility] Comment on above: Order Comment: Speci men Type: BLOOD SPECIMENOrdering Facility: [facility] Address: [address] [place] [address] Result Comment: Unab le to assay due to interference from hemolysis. Suggest reorder as clinically indicated. Performed By: #### 2 4323-8, 73065-4, 90169-5 ####BAYSIDE LABORATORYCLIA [id number] [place] [address] [place] Anion gap [Moles/Vol] 13 mmol/L Normal 8-15 [facility] Comment on above: Order Comment: Speci men Type: BLOOD SPECIMENOrdering Facility: [facility] Address: [address] [place] [address] Performed By: #### 2 4323-8, 46756-9, 40252-3 ####BAYSIDE LABORATORYCLIA [id number] [place] [id number] [place] AST [Catalytic activity/Vol] Normal [facility] Comment on above: Order Comment: Speci men Type: BLOOD SPECIMENOrdering Facility: [facility] Address: [address] [place] [address] Result Comment: Unab le to assay due to interference from hemolysis. Suggest reorder as clinically indicated. Performed By: #### 2 4323-8, , 29693-4 ####BAYSIDE LABORATORYCLIA [id number] [place] [address] [place] Bilirubin [Mass/Vol] 0.8 mg/dL Normal 0.2-1.3 [facility] Comment on above: Order Comment: Speci men Type: BLOOD SPECIMENOrdering Facility: [facility] Address: [address] [place] [address] Performed By: #### 2 4323-8, 37767-1, 48004-2 ####BAYSIDE LABORATORYCLIA [id number] [place] [id number] [place] Calcium [Mass/Vol] 9.5 mg/dL Normal 8.5-10.2 [facility] Comment on above: Order Comment: Speci men Type: BLOOD SPECIMENOrdering Facility: [facility] Address: [address] [place] [address] Performed By: #### 2 4323-8, 60197-1, 07050-0 ####BAYSIDE LABORATORYCLIA [id number] [place] [address] [place] Chloride [Moles/Vol] 98 mmol/L Normal 98-107 [facility] Comment on above: Order Comment: Speci men Type: BLOOD SPECIMENOrdering Facility: [facility] Address: [address] [place] [address] Performed By: #### 2 4323-8, 44936-6, 27371-4 ####BAIRD LABORATORYCLIA [id number] [place] [address] [place] CO2 [Moles/Vol] 22 mmol/L Normal 22-30 [facility] Comment on above: Order Comment: Speci men Type: BLOOD SPECIMENOrdering Facility: [facility] Address: [address] [place] [address] Performed By: #### 2 4323-8, , 93084-9 ####BAYSIDE LABORATORYCLIA [id number] [address] STATES OF [facility] Creatinine [Mass/Vol] 0.89 mg/dL Normal 0.58-0.96 [facility] Comment on above: Order Comment: Speci men Type: BLOOD SPECIMENOrdering Facility: [facility] Address: [address] [place] [address] Performed By: #### 2 4323-8, 73198-7, 67896-2 ####BAYSIDE LABORATORYCLIA [id number] [address] eGFRcr SerPlBld CKD-EPI 2020 62 mL/min/1.73m??? Normal >=60 [facility] Comment on above: Order Comment: Speci men Type: BLOOD SPECIMENOrdering Facility: [facility] Address: [address] [place] [address] Result Comment: Radha mated Glomerular Filtration Rate [...] actual GFR. Performed By: #### 2 4323-8, 39401-7, 55504-7 ####BAIRD LABORATORYCLIA [id number] [place] [address] [place] Glucose [Mass/Vol] 106 mg/dL High 74-99 [facility] Comment on above: Order Comment: Vita florez Type: BLOOD SPECIMENOrdering Facility: [facility] Address: [address] [place] [address] Result Comment: The [place] Diabetes Association (ADA) provides guidance for cutoff [...] Standards of Medical Care in Diabetes 2016, [place] Diabetes Association. Diabetes Care. 2016.39(Suppl 1). Performed By: #### 2 4323-8, 94498-0, 20378-4 ####BAYSIDE LABORATORYCLIA [id number] [place] [id number] [place] Potassium [Moles/Vol] 5.2 mmol/L High 3.7-5.1 [facility] Comment on above: Order Comment: Vita florez Type: BLOOD SPECIMENOrdering Facility: [facility] Address: [address] [place] [address] Performed By: #### 2 4323-8, 48259-1, 65062-5 ####BAYSIDE LABORATORYCLIA [id number] [place] [id number] [place] Protein [Mass/Vol] 6.8 g/dL Normal 6.3-8.0 [facility] Comment on above: Order Comment: Vita florez Type: BLOOD SPECIMENOrdering Facility: [facility] Address: [address] [place] [address] Performed By: #### 2 4323-8, 64939-3, 25431-2 ####BAIRD LABORATORYCLIA [id number] [place] [id number] [place] Sodium [Moles/Vol] 133 mmol/L Low 136-144 [facility] Comment on above: Order Comment: Speci men Type: BLOOD SPECIMENOrdering Facility: [facility] Address: [address] [place] [address] Performed By: #### 2 4323-8, 53859-0, 09533-9 ####BAYSIDE LABORATORYCLIA [id number] [place] [address] [place] [facility] Urea nitrogen [Mass/Vol] 32 mg/dL High 7-21 [facility] Comment on above: Order Comment: Speci men Type: BLOOD SPECIMENOrdering Facility: [facility] Address: [address] [place] [address] Performed By: #### 2 4323-8, 25999-3, 67705-1 ####BAYSIDE LABORATORYCLIA [id number] [address] [place] [id number] 03-02-2025 ECG01 Ventricular Rate : 8 0 BPM Atrial Rate : 80 BPM P-R Interval : 162 ms QRS Duration : 136 ms Q-T Interval : 416 ms QTC Calculation(Bazett) : 479 ms Calculated P [place] : -15 degrees Calculated R [place] : -57 degrees Calculated T [place] : 121 degrees SINUS RHYTHM WITH OCCASIONAL PREMATURE VENTRICULAR COMPLEXES LEFT AXIS DEVIATION LEFT VENTRICULAR HYPERTROPHY WITH QRS WIDENING AND REPOLARIZATION ABNORMALITY ( R in aVL , Db product , Romhilt-Weir ) POSSIBLE LATERAL INFARCT , AGE UNDETERMINED ABNORMAL ECG No Stemi Confirmed by BEATRIS GILLILAND DO ([id number]) on 03/02/2025 4:13:22 PM NAME : NA GOOD PID : [id number] : 1935 Gender : Female Race : [...] No Stemi Confirmed by BEATRIS GILLILAND DO ([id number]) on 03/02/2025 4:13:22 PM Test Reason : Location : 1 : ER ED Overread By : BEATRIS GILLILAND DO Edited By : BEATRIS GILLILAND DO Referred By : , Acquired by : EVIN [facility] ED NOTEon 03-02-2025 ED NOTE HNO ID: [id number] Author: MELODIE CLEARY, LAKESHIA Service: Nursing Author Type: Registered Nurse Type: ED Notes Filed: 03/02/2025 14:03 Note Text: MD @ BEDSIDE for EVAL [facility] ED NOTE HNO ID: [id number] Author: KAMRON CR, LAKESHIA Service: Behavioral Health Author Type: Registered Nurse Type: ED Notes Filed: 03/02/2025 13:42 Note Text: pt dropped off from assisted living for Shortness of Breath pt states has been seen 3 times for same complaint [facility] ED PROV NOTEon 03-02-2025 ED PROV NOTE HNO ID: [id number] Author: BEATRIS GILLILAND DO Service: Emergency Medicine [...] 9.14 (*) 1.45 - 7.50 k/uL Abs [place] 1.08 (*) <0.87 k/uL All other components [...] ng/L All (more content not included)... Normal [facility] HIGH SENSITIVITY TROPONIN T (INITIAL)on 03-02-2025 Troponin T.cardiac High sensitivity method [Mass/Vol] 37 ng/L High <12 [facility] Comment on above: Order Comment: Vita florez Type: BLOOD SPECIMENOrdering Facility: [facility] Address: [address] [place] [address] Performed By: #### 1 920-8, [id number], 1742-6, 3016-3, 1987- ####BAYSIDE LABORATORYCLIA [id number] [address] OF [facility] HIGH SENSITIVITY TROPONIN T (SECOND)on 03-02-2025 Troponin T.cardiac High sensitivity method [Mass/Vol] 37 ng/L High <12 [facility] Comment on above: Order Comment: Vita florez Type: BLOOD SPECIMEN [facility] Address: [address] [place] [id number] Performed By: #### 2 4321-2 #### [facility] CLIA [id number] [address] [place] [id number] [facility] HIGH SENSITIVITY TROPONIN T (THIRD) 3 HRS AFTER INITIALon 03-02-2025 Troponin T.cardiac High sensitivity method [Mass/Vol] 42 ng/L High <12 [facility] Comment on above: Order Comment: Speci men Type: BLOOD SPECIMENOrdering Facility: [facility] Address: [address] [place] [id number] Performed By: #### L AH9317 ####BAYSIDE LABORATORYCLIA [id number] [place] [address] [facility] [place] HISTORY PHYSICALon HISTORY PHYSICAL HNO ID: [id number] Author: BISMARK SALES MD Service: General Internal [...] old female who is a resident of [facility] with PMH of non-ischemic cardiomyopathy, CAD, CHF [...] and B/L pleural effusion. BP mildly high, NM normal and pulse oxymetry on RA in [...] EOMI, JUAN (more content not included)... Normal [facility] Magn[facility] Magnesium [Mass/Vol] 2.5 mg/dL High 1.7-2.3 [facility] Comment on above: Order Comment: Speci men Type: BLOOD SPECIMENOrdering Facility: [facility] Address: [address] [place] [address] Performed By: #### 2 4323-8, 67184-2, 08562-8 ####BAYSIDE LABORATORYCLIA [id number] [address] NT-proBNP SerPl-mCncon 03-02 Natriuretic peptide.B prohormone N-Terminal [Mass/Vol] 65902 pg/mL High <450 [facility] Comment on above: Order Comment: Speci men Type: BLOOD SPECIMENOrdering Facility: [facility] Address: [address] [place] [address] Performed By: #### 2 4323-8, 29262-5, 63446-8 ####BAYSIDE LABORATORYCLIA [id number] [address] [place] TSH SerPl-aCncon 03-02-2025 TSH Qn 0.498 m[IU]/L Normal 0.270-4.200 [facility] Comment on above: Order Comment: Speci men Type: BLOOD SPECIMENOrdering Facility: [facility] Address: [address] [place] [address] Performed By: #### 1 920-8, HFM4360, 1742-6, 3016-3, 1988- ####BAYSIDE LABORATORYCLIA [id number] [address] [place] XR CHEST 1V [...] chest PA and lateral views is recommended. Race Starter: KONSTANTIN Transcribe Date/Time: Mar 02 2025 3:11P Dictated by : SANDHYA KHOURY MD This examination was interpreted and the report reviewed and electronically signed by: SANDHYA KHOURY MD on Mar 02 2025 3:16PM EST [id number] [facility] Urine Cultureon 02-28-2025 URC UNKNOWN METHOD OF COLLECTION Organism is too fastidious for routine susceptibility studies. Aerococcus urinae [place] Count 50,000-80,000 Normal [facility] Comment on above: Performed By: #### L 500.2500, L100.0500 #### [facility] [address] [place], [place], [address] Keely 02-27-2025 LELAND Telephone (KRISTA) NA GOOD ([id number]) 1935 F Date Time Provider Department 02/27/25 LIDIA ARMENTA During your visit today, we recorded the following information about you: Merritt Salguero 02/27/2025 9:25 AM Signed Lidia Armenta APRN.[facility] Clerical Pool Can you please send my office note to her AL? OFF PREMISE SERVICE REPRESENTATIVE there is Cameron (I forget his last [...] another encounter. They provided their fax number: [phone]. Faxed OV note to [facility]. Allergies As of Date: 02/27/2025 Noted Allergy [...] Encounter Status:Closed by MERRITT SALGUERO on 02/27/25 [facility] Keely 02-26-2025 VERONICAN Telephone (KRISTA) NA GOOD ([id number]) 1935 F Date Time Provider Department 02/26/25 LIDIA ARMENTA During your visit today, we recorded the following information about you: Randell Moreno LPN 02/26/2025 7:34 AM Signed [facility] Results received via fax. Copy placed in PSS basket for scanning. Copy placed on desk of Sisi Armenta for review. Shamir 02/25/26 Sola Meadows 02/26/2025 8:04 AM Signed Scan on 02/26/2025 8:03 AM by Sola Benjamin: [facility] Results Merritt Salguero 02/27/2025 10:22 AM Signed Patient's assisted living calling front office java developer stating they would like Lidia to sign [...] Assessed Reason for Visit: Results [95] Cmt: [facility] X-Ray Results Prescriptions as of 03/02/2025 [...] Encounter Status:Closed by JUAN PARSONS on 03/02/25 [facility] Vanita 02-25-2025 CNOV Office Visit (CARDMM ) NA GOOD ([id number]) 1935 F Date Time Provider Department 02/25/25 1:30 PM LIDIA ARMENTA During your visit today, we recorded the following information about you: Pulse Blood pressure Weight Height 95/minute 118/78 54.9 kg 1.575 m Lidia Armenta, MAINFRAME PROGRAMMER.ASSOCIATE PROFESSOR OF EDUCATION 02/25/2025 3:55 PM Signed [facility] [place] Domenic Rayo Department of Cardiovascular Medicine SECTION [...] a follow up visit. Recent admission to [facility] for acute diastolic HF Seen by and [...] She resides in an assisted living facility, [facility], and is accompanied by her nurse aide. [...] prior to the follow up. Lidia Armenta, ISABEL.ASSOCIATE PROFESSOR OF EDUCATION Cardiology Nurse (more content not included)... Normal [facility] CBC-Complete Blood Cnt No Di ffon 02-24-2025 Erythrocyte distribution width (RBC) [Ratio] 16.4 % High 11.6-14.6 [facility] Comment on above: Order Comment: 546.1 Performed By: #### L 500.2500, L100.0500 #### [facility] [address] [place], [address] Hematocrit (Bld) [Volume fraction] 39.1 % Normal 37-47 [facility] Comment on above: Order Comment: 546.1 Performed By: #### L 500.2500, L100.0500 #### [facility] [address] [place], [address] Hemoglobin (Bld) [Mass/Vol] 13.1 g/dL Normal 12.0-15.0 [facility] Comment on above: Order Comment: 546.1 Performed By: #### L 500.2500, L100.0500 #### [facility] [address] [place], [address] MCH (RBC) [Entitic mass] 29.4 pg Normal 27.0-32.0 [facility] Comment on above: Order Comment: 546.1 Performed By: #### L 500.2500, L100.0500 #### [facility] [address] [place], [address] MCHC (RBC) [Mass/Vol] 33.5 g/dL Normal 32-36 [facility] Comment on above: Order Comment: 546.1 Performed By: #### L 500.2500, L100.0500 #### [facility] [address] [place], [address] MCV (RBC) [Entitic vol] 87.7 fL Normal 81-99 [facility] Comment on above: Order Comment: 546.1 Performed By: #### L 500.2500, L100.0500 #### [facility] [address] [place], [address] Platelet mean volume (Bld) [Entitic vol] 10.6 fL Normal 6.2-12.0 [facility] Comment on above: Order Comment: 546.1 Performed By: #### L 500.2500, L100.0500 #### [facility] [address] [place], [place], [address] Platelets (Bld) [#/Vol] 359 10*3/uL Normal 150-450 [facility] Comment on above: Order Comment: 546.1 Performed By: #### L 500.2500, L100.0500 #### [facility] [address] [place], [address] RBC (Bld) [#/Vol] 4.46 10*6/uL Normal 4.2-5.4 [facility] Comment on above: Order Comment: 546.1 Performed By: #### L 500.2500, L100.0500 #### [facility] [address] [place], [address] RDW SD 52.3 fl High 35.1-43.9 [facility] Comment on above: Order Comment: 546.1 Performed By: #### L 500.2500, L100.0500 #### [facility] [address] [place], [address] WBC (Bld) [#/Vol] 9.6 10*3/uL Normal 4.4-11.0 [facility] Comment on above: Order Comment: 546.1 Performed By: #### L 500.2500, L100.0500 #### [facility] [address] [place], [address] Comprehensive Metabolic Prof ilon 02-24-2025 Albumin [Mass/Vol] 3.7 g/dL Normal 3.4-4.8 [facility] Comment on above: Order Comment: 546.1 Performed By: #### L 500.2500, L100.0500 #### [facility] [address] [place], [address] Albumin/Globulin [Mass ratio] 1.7 {ratio} Normal 0.9-2.4 [facility] Comment on above: Order Comment: 546.1 Performed By: #### L 500.2500, L100.0500 #### [facility] [address] [place], [address] ALK PHOS 38 U/L Normal 35-104 [facility] Comment on above: Order Comment: 546.1 Performed By: #### L 500.2500, L100.0500 #### [facility] [address] [place], [address] ALT [Catalytic activity/Vol] 27 U/L Normal <=34 [facility] Comment on above: Order Comment: 546.1 Performed By: #### L 500.2500, L100.0500 #### [facility] [address] [place], [address] AST [Catalytic activity/Vol] 35 U/L High <=31 [facility] Comment on above: Order Comment: 546.1 Performed By: #### L 500.2500, L100.0500 #### [facility] [address] [place], [address] Bilirubin [Mass/Vol] 0.65 mg/dL Normal 0.00-1.30 [facility] Comment on above: Order Comment: 546.1 Performed By: #### L 500.2500, L100.0500 #### [facility] [address] [place], [address] BUN/CRE 30.1 RATIO High 10-20 [facility] Comment on above: Order Comment: 546.1 Performed By: #### L 500.2500, L100.0500 #### [facility] [address] [place], [address] Calcium [Mass/Vol] 9.2 mg/dL Normal 7.6-11.0 [facility] Comment on above: Order Comment: 546.1 Performed By: #### L 500.2500, L100.0500 #### [facility] [address] [place], [address] Chloride [Moles/Vol] 103 mmol/L Normal 98-108 [facility] Comment on above: Order Comment: 546.1 Performed By: #### L 500.2500, L100.0500 #### [facility] [address] [place], [address] CO2 [Moles/Vol] 25.1 mmol/L Normal 21.0-32.0 [facility] Comment on above: Order Comment: 546.1 Performed By: #### L 500.2500, L100.0500 #### [facility] [address] [place], [address] Creatinine [Mass/Vol] 0.92 mg/dL Normal 0.70-1.20 [facility] Comment on above: Order Comment: 546.1 Performed By: #### L 500.2500, L100.0500 #### [facility] [address] [place], [address] GAP 9 Normal 5-15 [facility] Comment on above: Order Comment: 546.1 Performed By: #### L 500.2500, L100.0500 #### [facility] [address] [place], [address] GFR/1.73 sq M.predicted among non-blacks MDRD (S/P/Bld) [Vol rate/Area] 60 mL/min/{1.73_m2} Normal >60 [facility] Comment on above: Order Comment: 546.1 Result Comment: mL/m in/1.73m2 CKD-EPI Creatinine Equation (2020) Performed By: #### L 500.2500, L100.0500 #### [facility] [address] [place], [address] Globulin (S) [Mass/Vol] 2.1 g/dL Low 2.2-4.2 [facility] Comment on above: Order Comment: 546.1 Performed By: #### L 500.2500, L100.0500 #### [facility] [address] [place], [address] Glucose [Mass/Vol] 85 mg/dL Normal 70-99 [facility] Comment on above: Order Comment: 546.1 Performed By: #### L 500.2500, L100.0500 #### [facility] [address] [place], [address] Potassium [Moles/Vol] 4.6 mmol/L Normal 3.3-5.1 [facility] Comment on above: Order Comment: 546.1 Performed By: #### L 500.2500, L100.0500 #### [facility] [address] [place], [address] Sodium [Moles/Vol] 136 mmol/L Normal 133-145 [facility] Comment on above: Order Comment: 546.1 Performed By: #### L 500.2500, L100.0500 #### [facility] [address] [place], [address] T PROT 5.8 g/dL Low 5.9-8.4 [facility] Comment on above: Order Comment: 546.1 Performed By: #### L 500.2500, L100.0500 #### [facility] [address] [place], [address] Urea nitrogen [Mass/Vol] 28 mg/dL High 4-19 [facility] Comment on above: Order Comment: 546.1 Performed By: #### L 500.2500, L100.0500 #### [facility] [address] [place], [address] Thyroid Stim Hormone (TSH)on 02-24-2025 TSH 0.273 uIU/mL Low 0.300-4.200 [facility] Comment on above: Order Comment: 546.1 Performed By: #### L 500.2500, L100.0500 #### [facility] [address] [place], [address] Urinalysis, Completeon 02-24 BACTERIA 3+ /hpf Normal None Seen [facility] Comment on above: Order Comment: 546.1 Performed By: #### L 500.2500, L100.0500 #### [facility] [address] [place], [address] EPI,SQUAMOUS 0-5 SEEN Normal 5-10 [facility] Comment on above: Order Comment: 546.1 Performed By: #### L 500.2500, L100.0500 #### [facility] [address] [place], [address] WBC 10-25 SEEN Normal 0-5 [facility] Comment on above: Order Comment: 546.1 Performed By: #### L 500.2500, L100.0500 #### [facility] [address] [place], [address] Mucus Ql (Urine sed) 0 SEEN Normal [facility] Comment on above: Order Comment: 546.1 Performed By: #### L 500.2500, L100.0500 #### [facility] [address] [place], [address] RBC 0 SEEN Normal 0-5 [facility] Comment on above: Order Comment: 546.1 Performed By: #### L 500.2500, L100.0500 #### [facility] [address] [place], [address] Vitamin B12on 02-24-2025 Cobalamin (Vitamin B12) [Mass/Vol] 812 pg/mL Normal 180-914 [facility] Comment on above: Order Comment: 546.1 Performed By: #### L 500.2500, L100.0500 #### [facility] [address] [place], [address] CBC-Complete Blood Cnt No Di ffon 02-19-2025 Erythrocyte distribution width (RBC) [Ratio] 15.8 % High 11.6-14.6 [facility] Comment on above: Order Comment: 546.1 Performed By: #### L 500.2500, L100.0500 #### [facility] [address] [place], [address] Hematocrit (Bld) [Volume fraction] 37.2 % Normal 37-47 [facility] Comment on above: Order Comment: 546.1 Performed By: #### L 500.2500, L100.0500 #### [facility] [address] [place], [address] Hemoglobin (Bld) [Mass/Vol] 12.5 g/dL Normal 12.0-15.0 [facility] Comment on above: Order Comment: 546.1 Performed By: #### L 500.2500, L100.0500 #### [facility] [address] [place], [address] MCH (RBC) [Entitic mass] 29.2 pg Normal 27.0-32.0 [facility] Comment on above: Order Comment: 546.1 Performed By: #### L 500.2500, L100.0500 #### [facility] [address] [place], [address] MCHC (RBC) [Mass/Vol] 33.6 g/dL Normal 32-36 [facility] Comment on above: Order Comment: 546.1 Performed By: #### L 500.2500, L100.0500 #### [facility] [address] [place], [address] MCV (RBC) [Entitic vol] 86.9 fL Normal 81-99 [facility] Comment on above: Order Comment: 546.1 Performed By: #### L 500.2500, L100.0500 #### [facility] [address] [place], [address] Platelet mean volume (Bld) [Entitic vol] 10.8 fL Normal 6.2-12.0 [facility] Comment on above: Order Comment: 546.1 Performed By: #### L 500.2500, L100.0500 #### [facility] [address] [place], [address] Platelets (Bld) [#/Vol] 346 10*3/uL Normal 150-450 [facility] Comment on above: Order Comment: 546.1 Performed By: #### L 500.2500, L100.0500 #### [facility] [address] [place], [address] RBC (Bld) [#/Vol] 4.28 10*6/uL Normal 4.2-5.4 [facility] Comment on above: Order Comment: 546.1 Performed By: #### L 500.2500, L100.0500 #### [facility] [address] [place], [address] RDW SD 49.9 fl High 35.1-43.9 [facility] Comment on above: Order Comment: 546.1 Performed By: #### L 500.2500, L100.0500 #### [facility] [address] [place], [address] WBC (Bld) [#/Vol] 9.0 10*3/uL Normal 4.4-11.0 [facility] Comment on above: Order Comment: 546.1 Performed By: #### L 500.2500, L100.0500 #### [facility] [address] [place], [address] [facility] 02-19-2025 [facility] Telephone ([facility]) NA GOOD ([id number]) 1935 F Date Time Provider Department 02/19/25 JOVANI COCHRAN [facility] During your visit today, we recorded the following information about you: Jovani Cochran APRN.VERONICA 02/19/2025 11:19 AM Signed Rec'd call from [facility] home regarding recent weight gain [...] Date Reviewed: 02/04/2025 Reviewed by: Jovani Cochran APRN.ASSOCIATE PROFESSOR OF EDUCATION - Fully Assessed Prescriptions as of 02/19/2025 [...] Encounter Status:Closed by JOVANI COCHRAN on 02/19/25 [facility] Comprehensive Metabolic Prof [facility] 02-19-2025 Albumin [Mass/Vol] 3.3 g/dL Low 3.4-4.8 [facility] Comment on above: Order Comment: 546.1 Performed By: #### L 500.2500, L100.0500 #### [facility] [address] [place], [address] Albumin/Globulin [Mass ratio] 1.7 {ratio} Normal 0.9-2.4 [facility] Comment on above: Order Comment: 546.1 Performed By: #### L 500.2500, L100.0500 #### [facility] [address] [place], [address] ALK PHOS 36 U/L Normal 35-104 [facility] Comment on above: Order Comment: 546.1 Performed By: #### L 500.2500, L100.0500 #### [facility] [address] [place], [address] ALT [Catalytic activity/Vol] 22 U/L Normal <=34 [facility] Comment on above: Order Comment: 546.1 Performed By: #### L 500.2500, L100.0500 #### [facility] [address] [place], [address] AST [Catalytic activity/Vol] 31 U/L Normal <=31 [facility] Comment on above: Order Comment: 546.1 Performed By: #### L 500.2500, L100.0500 #### [facility] [address] [place], [address] Bilirubin [Mass/Vol] 0.56 mg/dL Normal 0.00-1.30 [facility] Comment on above: Order Comment: 546.1 Performed By: #### L 500.2500, L100.0500 #### [facility] [address] [place], [address] BUN/CRE 22.5 RATIO High 10-20 [facility] Comment on above: Order Comment: 546.1 Performed By: #### L 500.2500, L100.0500 #### [facility] [address] [place], [address] Calcium [Mass/Vol] 8.4 mg/dL Normal 7.6-11.0 [facility] Comment on above: Order Comment: 546.1 Performed By: #### L 500.2500, L100.0500 #### [facility] [address] [place], [address] Chloride [Moles/Vol] 101 mmol/L Normal 98-108 [facility] Comment on above: Order Comment: 546.1 Performed By: #### L 500.2500, L100.0500 #### [facility] [address] [place], [address] CO2 [Moles/Vol] 24.4 mmol/L Normal 21.0-32.0 [facility] Comment on above: Order Comment: 546.1 Performed By: #### L 500.2500, L100.0500 #### [facility] [address] [place], [address] Creatinine [Mass/Vol] 0.93 mg/dL Normal 0.70-1.20 [facility] Comment on above: Order Comment: 546.1 Performed By: #### L 500.2500, L100.0500 #### [facility] [address] [place], [address] GAP 10 Normal 5-15 [facility] Comment on above: Order Comment: 546.1 Performed By: #### L 500.2500, L100.0500 #### [facility] [address] [place], [address] GFR/1.73 sq M.predicted among non-blacks MDRD (S/P/Bld) [Vol rate/Area] 59 mL/min/{1.73_m2} Low >60 [facility] Comment on above: Order Comment: 546.1 Result Comment: mL/m in/1.73m2 CKD-EPI Creatinine Equation (2020) Performed By: #### L 500.2500, L100.0500 #### [facility] [address] [place], [address] Globulin (S) [Mass/Vol] 2.0 g/dL Low 2.2-4.2 [facility] Comment on above: Order Comment: 546.1 Performed By: #### L 500.2500, L100.0500 #### [facility] [address] [place], [address] Glucose [Mass/Vol] 66 mg/dL Low 70-99 [facility] Comment on above: Order Comment: 546.1 Performed By: #### L 500.2500, L100.0500 #### [facility] [address] [place], [address] Potassium [Moles/Vol] 4.1 mmol/L Normal 3.3-5.1 [facility] Comment on above: Order Comment: 546.1 Performed By: #### L 500.2500, L100.0500 #### [facility] [address] [place], [address] Sodium [Moles/Vol] 135 mmol/L Normal 133-145 [facility] Comment on above: Order Comment: 546.1 Performed By: #### L 500.2500, L100.0500 #### [facility] [address] [place], [address] T PROT 5.3 g/dL Low 5.9-8.4 [facility] Comment on above: Order Comment: 546.1 Performed By: #### L 500.2500, L100.0500 #### [facility] [address] [place], [address] Urea nitrogen [Mass/Vol] 21 mg/dL High 4-19 [facility] Comment on above: Order Comment: 546.1 Performed By: #### L 500.2500, L100.0500 #### [facility] [address] [place], [address] CNOVon 02-04-2025 CNOV Office Visit ([facility] ) NA GOOD ([id number]) 1935 F Date Time Provider Department 02/04/25 10:00 AM JOVANI COCHRAN [facility] During your visit today, we recorded the following information about you: Pulse Blood pressure Weight 89/minute 132/79 53.6 kg Jovani Cochran APRN.CNP 02/04/2025 1:00 PM Signed [facility] [facility] OUTPATIENT VISIT DATE February [...] 0 No curre (more content not included)... [facility] CNCOon 01-29-2025 CNCO Letter Text [facility] CNDSon 01-29-2025 CNDS HNO ID: [id number] Author: JULIO CESAR ALVAREZ MD Service: Hospital [...] HFrEF (heart failure with reduced ejection fraction) ([facility]) Unknown Difficulty sleeping Unknown Shortness of breath [...] During patient's hospitalization called patient's power of corporate attorney and explained hospital course and need for follow up. Patient's hospital course and need for follow-up were explained to patient as well who is in understanding. Patient will need follow-up with primary care physician and cardiology soon after discharge from hospital. OPERATIONS/PROCEDURE DURING THIS HOSPITALIZATION: * No surgery found * CONSULTS DURING HOSPITALIZATION: Treatment Team: Primary Service: , [facility] PATIENT CONDITION AT DISCHARGE: Stable DISCHARGE [...] Center 02/04/2025 10:00 AM Jovani Cochran APRN.CNP [facility] 02/25/2025 1:30 PM Lidia Armenta APRN.VERONICA [facility] Discharge Information Row Name ED to Hosp-Admission (Discharged) from 01/27/2025 in [facility] Follow-Up Appointment Provider Name PCP: Alexey Espino DO - Other Follow-Up Type [facility]: [facility] - ALLERGIES Allergen Reactions Cortisone facial swelling [...] Generic drug: spironola (more content not included)... [facility] NURSING PROGon 01-29-2025 NURSING PROG HNO ID: [id number] Author: RAULITO CHAVEZ, RN Service: Nursing Author Type: Registered Nurse Type: Nursing Progress Note Filed: 01/29/2025 15:28 Note Text: PATIENT EDUCATION HEART FAILURE PATIENT NAME: Na Good PATIENT LOCATION: [place] [address] [address] 1 SURVIVAL SKILLS: Low Sodium Diet Weight Monitoring and Dry Weight Importance of Follow Up after Discharge Fluid Restriction, if applicable Heart Failure Medications Symptom Management related to heart failure Activity / Physical Exercise Recommendations Smoking cessation counseling if applicable When Patient Should Call Provider Pt w/ [place], and poor vision; communication is difficult. She is unsure why she is here and wants to go home. Pt last seen by this department 12/24/24. I met w/ pt's son at that time. All children are of [facility]. Survival Skills were discussed w/ son. Son stated DRY weight b/t 122-125lb, pt weighted 122lb.@ that time. Today's weight is 125lb. Electronically Signed By: Raulito Chavez [facility] Basic metabolic 2000 panelon 01-28-2025 Anion gap [Moles/Vol] 11 mmol/L Normal 8-15 [facility] Comment on above: Order Comment: Vita florez Type: BLOOD SPECIMEN Ordering Facility: [facility] Address: [address] [place] [address] Performed By: #### 2 4321-2 #### [facility] CLIA [id number] [address] [place] [address] [place] Calcium [Mass/Vol] 8.9 mg/dL Normal 8.5-10.2 [facility] Comment on above: Order Comment: Vita florez Type: BLOOD SPECIMEN Ordering Facility: [facility] Address: [address] [place] [address] Performed By: #### 2 4321-2 #### [facility] CLIA [id number] [address] [place] [address] [place] Chloride [Moles/Vol] 103 mmol/L Normal 98-107 [facility] Comment on above: Order Comment: Speci men Type: BLOOD SPECIMEN Ordering Facility: [facility] Address: [address] [place] [address] Performed By: #### 2 4321-2 #### [facility] CLIA [id number] [address] [place] [address] [place] CO2 [Moles/Vol] 27 mmol/L Normal 22-30 [facility] Comment on above: Order Comment: Speci men Type: BLOOD SPECIMEN Ordering Facility: [facility] Address: [address] [place] [address] Performed By: #### 2 4321-2 #### [facility] CLIA [id number] [address] [place] [address] [place] Creatinine [Mass/Vol] 0.99 mg/dL High 0.58-0.96 [facility] Comment on above: Order Comment: Valei men Type: BLOOD SPECIMEN Ordering Facility: [facility] Address: [address] [place] [address] Performed By: #### 2 4321-2 #### [facility] CLIA [id number] [address] [place] [address] [place] eGFRcr SerPlBld CKD-EPI 2020 55 mL/min/1.73m??? Low >=60 [facility] Comment on above: Order Comment: Vita gautam Type: BLOOD SPECIMEN Ordering Facility: [facility] Address: [address] [place] [address] Result Comment: Radah mated Glomerular Filtration Rate [...] GFR. Performed By: #### 2 4321-2 #### [facility] CLIA [id number] [address] [place] [address] [place] Glucose [Mass/Vol] 83 mg/dL Normal 74-99 [facility] Comment on above: Order Comment: Speci men Type: BLOOD SPECIMEN Ordering Facility: [facility] Address: [address] [place] [address] Result Comment: The [place] Diabetes Association (ADA) provides guidance for cutoff [...] Standards of Medical Care in Diabetes 2016, [place] Diabetes Association. Diabetes Care. 2016.39(Suppl 1). Performed By: #### 2 4321-2 #### [facility] CLIA [id number] [address] [place] [address] [place] Potassium [Moles/Vol] 4.0 mmol/L Normal 3.7-5.1 [facility] Comment on above: Order Comment: Vita florez Type: BLOOD SPECIMEN Ordering Facility: [facility] Address: [address] [place] [address] Performed By: #### 2 4321-2 #### [facility] CLIA [id number] [address] [place] [address] [place] Sodium [Moles/Vol] 141 mmol/L Normal 136-144 [facility] Comment on above: Order Comment: Vita florez Type: BLOOD SPECIMEN Ordering Facility: [facility] Address: [address] [place] [id number] Performed By: #### 2 4321-2 #### [facility] CLIA [id number] [address] [place] [address] [place] Urea nitrogen [Mass/Vol] 25 mg/dL High 7-21 [facility] Comment on above: Order Comment: Vita florez Type: BLOOD SPECIMEN Ordering Facility: [facility] Address: [address] [place] [id number] Performed By: #### 2 4321-2 #### [facility] CLIA [id number] [address] [place] CBC panel Auto (Bld)on 01-28 Erythrocyte distribution width (RBC) [Ratio] 15.8 % High 11.5-15.0 [facility] Comment on above: Order Comment: Speci men Type: BLOOD SPECIMENOrdering Facility: [facility] Address: [address] [place] [address] Performed By: #### 5 8410-2 ####[facility] [id number] [address] Hematocrit (Bld) [Volume fraction] 41.1 % Normal 36.0-46.0 [facility] Comment on above: Order Comment: Speci men Type: BLOOD SPECIMENOrdering Facility: [facility] Address: [address] [place] [address] Performed By: #### 5 8410-2 ####[facility] [id number] [address] [place] Hemoglobin (Bld) [Mass/Vol] 13.7 g/dL Normal 11.5-15.5 [facility] Comment on above: Order Comment: Speci men Type: BLOOD SPECIMENOrdering Facility: [facility] Address: [address] [place] [address] Performed By: #### 5 8410-2 ####[facility] [id number] [address] MCH (RBC) [Entitic mass] 29.6 pg Normal 26.0-34.0 [facility] Comment on above: Order Comment: Speci men Type: BLOOD SPECIMENOrdering Facility: [facility] Address: [address] [place] [address] Performed By: #### 5 8410-2 ####[facility] [id number] [address] MCHC (RBC) [Mass/Vol] 33.3 g/dL Normal 30.5-36.0 [facility] Comment on above: Order Comment: Speci men Type: BLOOD SPECIMENOrdering Facility: [facility] Address: [address] [place] [address] Performed By: #### 5 8410-2 ####[facility] [id number] [address] [place] MCV (RBC) [Entitic vol] 88.8 fL Normal 80.0-100.0 [facility] Comment on above: Order Comment: Speci men Type: BLOOD SPECIMENOrdering Facility: [facility] Address: [address] [place] [address] Performed By: #### 5 8410-2 ####BAIRD LABORATORYCLIA [id number] [address] [place] Nucleated RBC (Bld) [#/Vol] 10*3/uL Normal <0.01 [facility] Comment on above: Order Comment: Speci men Type: BLOOD SPECIMENOrdering Facility: [facility] Address: [address] [place] [address] Performed By: #### 5 8410-2 ####BAIRD LABORATORYCLIA [id number] [address] Platelet mean volume (Bld) [Entitic vol] 10.9 fL Normal 9.0-12.7 [facility] Comment on above: Order Comment: Speci men Type: BLOOD SPECIMENOrdering Facility: [facility] Address: [address] [place] [address] Performed By: #### 5 8410-2 ####BAIRD LABORATORYCLIA [id number] [address] [place] Platelets (Bld) [#/Vol] 330 10*3/uL Normal 150-400 [facility] Comment on above: Order Comment: Speci men Type: BLOOD SPECIMENOrdering Facility: [facility] Address: [address] [place] [address] Performed By: #### 5 8410-2 ####BAIRD LABORATORYCLIA [id number] [address] [place] RBC (Bld) [#/Vol] 4.63 10*6/uL Normal 3.90-5.20 [facility] Comment on above: Order Comment: Speci men Type: BLOOD SPECIMENOrdering Facility: [facility] Address: [address] [place] [place] [id number] Performed By: #### 5 8410-2 ####BAIRD LABORATORYCLIA [id number] [address] WBC (Bld) [#/Vol] 9.52 10*3/uL Normal 3.70-11.00 [facility] Comment on above: Order Comment: Vita gautam Type: BLOOD SPECIMENOrdering Facility: [facility] Address: [address] [place] [id number] Performed By: #### 5 8410-2 ####BAIRD LABORATORYCLIA [id number] [place] [id number] [facility] CONSULTon 01-28-2025 CONSULT HNO ID: [id number] Author: AMY MARTINEZ MD Service: Cardiovascular Disease Author Type: Physician Type: Consults Filed: 01/28/2025 15:18 Note Text: [facility] CARDIOVASCULAR MEDICINE CONSULT NOTE (Template ID [id number]) Na Good [id number] PRIMARY SERVICE: Internal Medicine CONSULTING SERVICE: Cardiovascular [...] syncope, paral (more content not included)... Normal [facility] THERAPY NTon 01-28-2025 THERAPY NT HNO ID: [id number] Author: LOI HEWITT PT Service: Physical Therapy Author Type: Physical Therapist Type: Therapy (PT/OT/Speech/Resp) Filed: 01/28/2025 16:05 Note Text: Summary: PT evaluation Physical Therapy Evaluation Summary SERVICE DATE: 01/28/2025 SERVICE TIME: 1510 to 1528 ROOM: [id number] PT 6 Clicks Score: 20 DISCHARGE RECOMMENDATIONS [...] on feet TREATMENT INTERVENTIONS Evaluation, Therapeutic Activity (79794), Gait Training (98086) Timed Code Treatment (minutes): 3 Skilled Treatment Time (minutes): 18 $ Evaluation-Low (91379) Billed Units: 1 unit Therapeutic Activity (83830) Treatment Minutes: 2 $ Therapeutic Activity (19083) Billed Units: 0 units Gait Training (88125) Treatment Minutes: 1 $ Gait Training (65549) Billed Units: 0 units TRAINING AND EDUCATION [...] posture and with (more content not included)... [facility] THERAPY NT HNO ID: [id number] Author: BOWCAROLE COHEN OT/L Service: Occupational Therapy Author Type: Occupational Therapist Type: Therapy (PT/OT/Speech/Resp) Filed: 01/28/2025 14:56 Note Text: Summary: OT Evaluation Occupational Therapy Evaluation Summary SERVICE DATE: 01/28/2025 SERVICE TIME: 1418 to 1446 ROOM: [place] [address] OT 6 Clicks Score: 19 DISCHARGE RECOMMENDATIONS [...] ADLs and functional mobility/transfers, pt is very [place], follows commands appropriately, denies SOB during mobility, reports no questions/concerns for d/c back to [facility] Bed/Chair Alarm, Fall Risk CURRENT HOSPITAL COURSE Patient presents with SOB, admitted for acute on chronic CHF Relevant Past Medical History: ASCVA, CAD, CHF, HTN, insomnia, LV mural thrombus, tremor, cardiomyopathy HOME LIVING Patient Lives With: Facility Care, Other: See Comment Comments: [facility] Assistance Available: 24-Hour Entry To Home: No [...] Muscle Weakness (generalized) TREATMENT INTERVENTIONS Evaluation, Self Prison Management (71354) Timed Code Treatment (minutes): 13 Skilled Treatment Time (minutes): 28 TRAINING AND EDUCATION PROVIDED Activity Adaptation/Slusher Operator y Strategies, Adaptive Equipment/DME, Bed Mobility, Benefits of In-Hospital Mobility, Cognitive Skills, Command Following, Discharge Planning, Expected Functional Level, Functional Mobility Involving ADLs, Insight into Deficits, Lower Extremity Dressing, Memory/Attention, Orientation, Positioning, Role of Occupational Therapy, Safety/Judgment, Sitting Balance to Improve [place] with ADLs/Self-Care, Standing Balance to Improve [place] with ADLs/Self-Care, Transfer - Sit to Stand [...] and/or physical assistance. (more content not included)... [facility] ALLIED HEALTHon 01-27-2025 ALLIED HEALTH HNO ID: [id number] Author: CECILE BAIRES CT Service: Radiology Author [...] PATIENT PRESENTS WITH AN IMPLANTABLE OR ATTACHED OTR FLATBED DRIVER: No RADIOLOGY DEPARTMENT: General X-ray: Exam(s) Completed: Chest X-Ray PERIPHERAL IV DATA: Not applicable SIGNED BY: LAUREL Brooks January 27, 2025 1:24 PM [facility] Bacteria Ur Culton Bacteria identified Cx Nom (U) CULTURE, URINE: Normal urogenital tiffanie: ORGANISM ID: 1 >=100,000 CFU/ml Staphylococcus epidermidis No further workup. [facility] Comment on above: Performed By: #### 2 4356-8 ####BAYSIDE LABORATORYCLIA [id number] [place], [place] [address] [place] [address] [place]#### 630-4 ####[facility] LABCLIA [id number] [address] STATES [place] CBC W Auto Differential pane l (Bld)on 01-27-2025 Basophils (Bld) [#/Vol] 0.09 10*3/uL Normal <0.11 [facility] Comment on above: Order Comment: Speci men Type: BLOOD SPECIMENOrdering Facility: [facility] Address: [address] [place] [address] Performed By: #### 5 7021-8 ####BAIRD LABORATORYCLIA [id number] [place] [address] [place] Basophils/100 WBC (Bld) 0.9 % Normal [facility] Comment on above: Order Comment: Speci men Type: BLOOD SPECIMENOrdering Facility: [facility] Address: [address] [place] [address] Performed By: #### 5 7021-8 ####BAIRD LABORATORYCLIA [id number] [place] [address] [place] Differential cell count method Nom (Bld) Auto Normal [facility] Comment on above: Order Comment: Speci men Type: BLOOD SPECIMENOrdering Facility: [facility] Address: [address] [place] [address] Performed By: #### 5 7021-8 ####BAIRD LABORATORYCLIA [id number] [place] [address] [place] Eosinophils (Bld) [#/Vol] 0.06 10*3/uL Normal <0.46 [facility] Comment on above: Order Comment: Speci men Type: BLOOD SPECIMENOrdering Facility: [facility] Address: [address] [place] [address] Performed By: #### 5 7021-8 ####BAIRD LABORATORYCLIA [id number] [address] STATES [place] Eosinophils/100 WBC (Bld) 0.6 % Normal [facility] Comment on above: Order Comment: Speci men Type: BLOOD SPECIMENOrdering Facility: [facility] Address: [address] [place] [address] Performed By: #### 5 7021-8 ####BAIRD LABORATORYCLIA [id number] [place] [address] [place] Erythrocyte distribution width (RBC) [Ratio] 15.9 % High 11.5-15.0 [facility] Comment on above: Order Comment: Speci men Type: BLOOD SPECIMENOrdering Facility: [facility] Address: [address] [place] [address] Performed By: #### 5 7021-8 ####BAIRD LABORATORYCLIA [id number] [place] [address] [place] Hematocrit (Bld) [Volume fraction] 45.1 % Normal 36.0-46.0 [facility] Comment on above: Order Comment: Speci men Type: BLOOD SPECIMENOrdering Facility: [facility] Address: [address] [place] [address] Performed By: #### 5 7021-8 ####BAIRD LABORATORYCLIA [id number] [place] [address] [place] Hemoglobin (Bld) [Mass/Vol] 14.5 g/dL Normal 11.5-15.5 [facility] Comment on above: Order Comment: Speci men Type: BLOOD SPECIMENOrdering Facility: [facility] Address: [address] [place] [address] Performed By: #### 5 7021-8 ####BAIRD LABORATORYCLIA [id number] [place] [address] [place] Immature granulocytes (Bld) [#/Vol] 0.04 10*3/uL Normal <0.10 [facility] Comment on above: Order Comment: Speci men Type: BLOOD SPECIMENOrdering Facility: [facility] Address: [address] [place] [address] Performed By: #### 5 7021-8 ####BAIRD LABORATORYCLIA [id number] [place] [address] [place] Immature granulocytes/100 WBC (Bld) 0.4 % Normal [facility] Comment on above: Order Comment: Speci men Type: BLOOD SPECIMENOrdering Facility: [facility] Address: [address] [place] [address] Performed By: #### 5 7021-8 ####BAIRD LABORATORYCLIA [id number] [place] [address] [place] Lymphocytes (Bld) [#/Vol] 1.30 10*3/uL Normal 1.00-4.00 [facility] Comment on above: Order Comment: Speci men Type: BLOOD SPECIMENOrdering Facility: [facility] Address: [address] [place] [address] Performed By: #### 5 7021-8 ####BAIRD LABORATORYCLIA [id number] [address] Lymphocytes/100 WBC (Bld) 12.3 % Normal [facility] Comment on above: Order Comment: Speci men Type: BLOOD SPECIMENOrdering Facility: [facility] Address: [address] [place] [address] Performed By: #### 5 7021-8 ####BAIRD LABORATORYCLIA [id number] [address] MCH (RBC) [Entitic mass] 29.2 pg Normal 26.0-34.0 [facility] Comment on above: Order Comment: Speci men Type: BLOOD SPECIMENOrdering Facility: [facility] Address: [address] [place] [address] Performed By: #### 5 7021-8 ####BAIRD LABORATORYCLIA [id number] [address] STATES [facility] MCHC (RBC) [Mass/Vol] 32.2 g/dL Normal 30.5-36.0 [facility] Comment on above: Order Comment: Speci men Type: BLOOD SPECIMENOrdering Facility: [facility] Address: [address] [place] [address] Performed By: #### 5 7021-8 ####BAIRD LABORATORYCLIA [id number] [address] MCV (RBC) [Entitic vol] 90.7 fL Normal 80.0-100.0 [facility] Comment on above: Order Comment: Speci men Type: BLOOD SPECIMENOrdering Facility: [facility] Address: [address] [place] [address] Performed By: #### 5 7021-8 ####BAIRD LABORATORYCLIA [id number] [address] Monocytes (Bld) [#/Vol] 0.78 10*3/uL Normal <0.87 [facility] Comment on above: Order Comment: Speci men Type: BLOOD SPECIMENOrdering Facility: [facility] Address: [address] [place] [address] Performed By: #### 5 7021-8 ####BAIRD LABORATORYCLIA [id number] [address] [place] Monocytes/100 WBC (Bld) 7.4 % Normal [facility] Comment on above: Order Comment: Speci men Type: BLOOD SPECIMENOrdering Facility: [facility] Address: [address] [place] [address] Performed By: #### 5 7021-8 ####BAIRD LABORATORYCLIA [id number] [place] [address] [place] Neutrophils (Bld) [#/Vol] 8.30 10*3/uL High 1.45-7.50 [facility] Comment on above: Order Comment: Speci men Type: BLOOD SPECIMENOrdering Facility: [facility] Address: [address] [place] [address] Performed By: #### 5 7021-8 ####BAIRD LABORATORYCLIA [id number] [place] [address] [place] Neutrophils/100 WBC (Bld) 78.4 % Normal [facility] Comment on above: Order Comment: Speci men Type: BLOOD SPECIMENOrdering Facility: [facility] Address: [address] [place] [address] Performed By: #### 5 7021-8 ####BAIRD LABORATORYCLIA [id number] [place] [address] [place] Nucleated RBC (Bld) [#/Vol] 10*3/uL Normal <0.01 [facility] Comment on above: Order Comment: Speci men Type: BLOOD SPECIMENOrdering Facility: [facility] Address: [address] [place] [address] Performed By: #### 5 7021-8 ####BAIRD LABORATORYCLIA [id number] [place] [address] [place] Nucleated RBC/100 WBC (Bld) [Ratio] 0.0 /100 WBC Normal [facility] Comment on above: Order Comment: Speci men Type: BLOOD SPECIMENOrdering Facility: [facility] Address: [address] [place] [address] Performed By: #### 5 7021-8 ####BAIRD LABORATORYCLIA [id number] [place] [address] [place] Platelet mean volume (Bld) [Entitic vol] 10.9 fL Normal 9.0-12.7 [facility] Comment on above: Order Comment: Speci men Type: BLOOD SPECIMENOrdering Facility: [facility] Address: [address] [place] [address] Performed By: #### 5 7021-8 ####BAIRD LABORATORYCLIA [id number] [place] [address] [place] Platelets (Bld) [#/Vol] 389 10*3/uL Normal 150-400 [facility] Comment on above: Order Comment: Speci men Type: BLOOD SPECIMENOrdering Facility: [facility] Address: [address] [place] [address] Performed By: #### 5 7021-8 ####BAIRD LABORATORYCLIA [id number] [place] [address] [place] RBC (Bld) [#/Vol] 4.97 10*6/uL Normal 3.90-5.20 [facility] Comment on above: Order Comment: Speci men Type: BLOOD SPECIMENOrdering Facility: [facility] Address: [address] [place] [address] Performed By: #### 5 7021-8 ####BAIRD LABORATORYCLIA [id number] [place] [id number] [place] WBC (Bld) [#/Vol] 10.57 10*3/uL Normal 3.70-11.00 [facility] Comment on above: Order Comment: Speci men Type: BLOOD SPECIMENOrdering Facility: [facility] Address: [address] [place] [address] Performed By: #### 5 7021-8 ####BAIRD LABORATORYCLIA [id number] [place] [id number] [facility] [place] Comprehensive metabolic 2000 panelon 01-27-2025 Albumin [Mass/Vol] 4.3 g/dL Normal 3.9-4.9 [facility] Comment on above: Order Comment: Speci men Type: BLOOD SPECIMENOrdering Facility: [facility] Address: [address] [facility] [address] Performed By: #### 1 9123-9, [id number], 03938-1, 00923-2 ####BAIRD LABORATORYCLIA [id number] [place] [address] [place] ALP [Catalytic activity/Vol] 52 U/L Normal 34-123 [facility] Comment on above: Order Comment: Speci men Type: BLOOD SPECIMENOrdering Facility: [facility] Address: [address] [place] [address] Performed By: #### 1 9123-9, [id number], 71924-5, 63886-9 ####BAIRD LABORATORYCLIA [id number] [address] STATES OF [facility] ALT [Catalytic activity/Vol] 30 U/L Normal 7-38 [facility] Comment on above: Order Comment: Speci men Type: BLOOD SPECIMENOrdering Facility: [facility] Address: [address] [place] [address] Performed By: #### 1 9123-9, NAU3603, 55456-0, 43894-8 ####BAIRD LABORATORYCLIA [id number] [address] Anion gap [Moles/Vol] 13 mmol/L Normal 8-15 [facility] Comment on above: Order Comment: Speci men Type: BLOOD SPECIMENOrdering Facility: [facility] Address: [address] [place] [address] Performed By: #### 1 9123-9, EQR5663, 36980-5, 81913-1 ####BAIRD LABORATORYCLIA [id number] [address] [place] AST [Catalytic activity/Vol] 41 U/L High 13-35 [facility] Comment on above: Order Comment: Speci men Type: BLOOD SPECIMENOrdering Facility: [facility] Address: [address] [place] [address] Performed By: #### 1 9123-9, [id number], 09390-0, 33784-4 ####BAIRD LABORATORYCLIA [id number] [place] [address] [place] Bilirubin [Mass/Vol] 0.7 mg/dL Normal 0.2-1.3 [facility] Comment on above: Order Comment: Speci men Type: BLOOD SPECIMENOrdering Facility: [facility] Address: [address] [place] [address] Performed By: #### 1 9123-9, [id number], 06497-1, 51748-6 ####BAIRD LABORATORYCLIA [id number] [place] [address] [place] Calcium [Mass/Vol] 9.5 mg/dL Normal 8.5-10.2 [facility] Comment on above: Order Comment: Speci men Type: BLOOD SPECIMENOrdering Facility: [facility] Address: [address] [place] [address] Performed By: #### 1 9123-9, [id number], 37429-5, 47436-6 ####BAIRD LABORATORYCLIA [id number] [place] [address] [place] Chloride [Moles/Vol] 103 mmol/L Normal 98-107 [facility] Comment on above: Order Comment: Speci men Type: BLOOD SPECIMENOrdering Facility: [facility] Address: [address] [place] [address] Performed By: #### 1 9123-9, UGD8791, 59656-7, 12462-8 ####BAIRD LABORATORYCLIA [id number] [place] [address] [place] CO2 [Moles/Vol] 25 mmol/L Normal 22-30 [facility] Comment on above: Order Comment: Speci men Type: BLOOD SPECIMENOrdering Facility: [facility] Address: [address] [place] [address] Performed By: #### 1 9123-9, RWS9238, 11820-3, 40705-3 ####BAIRD LABORATORYCLIA [id number] [address] STATES [facility] Creatinine [Mass/Vol] 0.91 mg/dL Normal 0.58-0.96 [facility] Comment on above: Order Comment: Vita florez Type: BLOOD SPECIMENOrdering Facility: [facility] Address: [address] [place] [address] Performed By: #### 1 9123-9, CWS3401, 60377-9, 45494-7 ####BAIRD LABORATORYCLIA [id number] [address] STATES [place] eGFRcr SerPlBld CKD-EPI 2020 60 mL/min/1.73m??? Normal >=60 [facility] Comment on above: Order Comment: Vita florez Type: BLOOD SPECIMENOrdering Facility: [facility] Address: [address] [place] [address] Result Comment: Radha mated Glomerular Filtration Rate [...] actual GFR. Performed By: #### 1 9123-9, VNW3077, 09620-5, 12922-6 ####BIARD LABORATORYCLIA [id number] [address] OF [facility] Glucose [Mass/Vol] 98 mg/dL Normal 74-99 [facility] Comment on above: Order Comment: Vita florez Type: BLOOD SPECIMENOrdering Facility: [facility] Address: [address] [place] [address] Result Comment: The [place] Diabetes Association (ADA) provides guidance for cutoff [...] Standards of Medical Care in Diabetes 2016, [place] Diabetes Association. Diabetes Care. 2016.39(Suppl 1). Performed By: #### 1 9123-9, TUS1561, 59950-8, 02220-0 ####BAIRD LABORATORYCLIA [id number] [place] [address] [place] Potassium [Moles/Vol] 4.8 mmol/L Normal 3.7-5.1 [facility] Comment on above: Order Comment: Speci men Type: BLOOD SPECIMENOrdering Facility: [facility] Address: [address] [place] [address] Performed By: #### 1 9123-9, BWZ3409, 06004-1, 16842-7 ####BAIRD LABORATORYCLIA [id number] [place] [address] [place] Protein [Mass/Vol] 7.1 g/dL Normal 6.3-8.0 [facility] Comment on above: Order Comment: Speci men Type: BLOOD SPECIMENOrdering Facility: [facility] Address: [facility] [place] [address] Performed By: #### 1 9123-9, NWD8439, 49212-4, 19629-8 ####BAIRD LABORATORYCLIA [id number] [place] [address] [place] Sodium [Moles/Vol] 141 mmol/L Normal 136-144 [facility] Comment on above: Order Comment: Speci men Type: BLOOD SPECIMENOrdering Facility: [facility] Address: [address] [place] [address] Performed By: #### 1 9123-9, NHA2296, 62811-9, 24607-7 ####BAIRD LABORATORYCLIA [id number] [place] [address] [place] Urea nitrogen [Mass/Vol] 25 mg/dL High 7-21 [facility] Comment on above: Order Comment: Speci men Type: BLOOD SPECIMENOrdering Facility: [facility] Address: [address] [place] [address] Performed By: #### 1 9123-9, [id number], 53790-9, 82449-4 ####BAYSIDE LABORATORYCLIA [id number] [address] ED NOTEon 01-27-2025 ED NOTE HNO ID: [id number] Author: MELODIE CLEARY RN Service: Nursing Author Type: Registered Nurse Type: ED Notes Filed: 01/27/2025 15:53 Note Text: This rn attempted to call loan Luis message left. [facility] ED NOTE HNO ID: [id number] Author: MELODIE CLEARY RN Service: Nursing Author Type: Registered Nurse Type: ED Notes Filed: 01/27/2025 15:53 Note Text: [facility] updated on Pt admission. [facility] ED NOTE HNO ID: [id number] Author: MELODIE CLEARY RN Service: Nursing Author Type: Registered Nurse Type: ED Notes Filed: 01/27/2025 15:41 Note Text: This RN attempted to call nursing @ [facility] to update on pt current condition, DX AND admission to [facility], however, unable to reach nursing @ this time. Message to call this RN back was given. [facility] ED NOTE HNO ID: [id number] Author: MELODIE CLEARY RN Service: Nursing Author Type: Registered Nurse Type: ED Notes Filed: 01/27/2025 15:09 Note Text: Pt currently on pure wick external catheter. [facility] ED NOTE HNO ID: [id number] Author: MELODIE CLEARY RN Service: Nursing Author Type: Registered Nurse Type: ED Notes Filed: 01/27/2025 15:08 Note Text: 4 S charge aware report is in for 0405-1. [facility] ED NOTE HNO ID: [id number] Author: JUANCARLOS MARTINEZ RN Service: Nursing Author Type: Registered Nurse Type: ED Notes Filed: 01/27/2025 12:38 Note Text: MD rounds. [facility] ED PROGRESS NOTE (PROVIDER)o n 01-27-2025 ED PROGRESS NOTE (PROVIDER) HNO ID: [id number] Author: ZENOBIA CUNNINGHAM MD Service: ? Author Type: Physician Type: ED PROGRESS NOTE (PROVIDER) Filed: 01/27/2025 14:51 Note Text: ED CONTINUATION OF CARE NOTE Code Status: Prior Assumed care from: Dr. Gilliland Presentation / Findings / Interventions / Plan / Items to Follow Up: 89-year-old female who presents for from [facility] in [place] with a past medical history of congestive [...] Lasix and oxygen was initiated. Discussed with [facility] medicine on-call who will admit for diuresis. ED Course as of 01/27/25 1450 Others' Documentation Tue Jan 27, 2025 1359 CBC + DIFF(!): WBC 10.57 RBC 4.97 Hemoglobin 14.5 Hematocrit 45.1 MCV 90.7 MCH 29.2 MCHC 32.2 RDW-CV 15.9(!) Platelet Count 389 MPV 10.9 Neut% 78.4 Abs Neut (ANC) 8.30(!) Lymph% 12.3 Abs Lymph 1.30 Stonewall% 7.4 Abs [place] 0.78 Eosin% 0.6 Abs Eosin 0.06 Baso% [...] pneumothorax. [KS] 1411 EKG: Heart 92, NSR. NM 156. QTc 479. No ST elevations consistent with NV. Nonspecific T wave changes. Left bundle appreciated [...] NO STEMI/Sgarbossa Confirmed by HELDER CABRERA DO ([id number]) on 01/27/2025 12:49:49 PM Medical Decision Making SIGNATURE: Zenobia Cunningham MD PATIENT NAME: Na Good DATE: January 27, 2025 TIME: 2:50 PM PAGER/CONTACT #: [facility] ED PROV NOTEon 01-27-2025 ED PROV NOTE HNO ID: [id number] Author: BEATRIS GILLILAND DO Service: Emergency Medicine Author Type: Physician Type: ED Provider Notes Filed: 01/27/2025 14:12 Note Text: ED Provider Note Patient Name: Na Good : 1935 SERVICE DATE: 01/27/25 History Patient presents with: Multiple Concerns: SHORTNESS OF BREATH THAT HAS BEEN ONGOING AND INSOMNIA; 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 Normal [facility] EKGon 01-27-2025 Electrocardiogram Ventricular Rate : 9 2 BPM Atrial Rate : 92 BPM P-R Interval : 158 ms QRS Duration : 134 ms Q-T Interval : 388 ms QTC Calculation(Bazett) : 479 ms Calculated P [place] : -4 degrees Calculated R [place] : -35 degrees Calculated T [place] : 137 degrees NORMAL SINUS RHYTHM LEFT AXIS DEVIATION LEFT BUNDLE BRANCH BLOCK ABNORMAL ECG NO STEMI/Sgarbossa Confirmed by HELDER CABRERA DO ([id number]) on 01/27/2025 12:49:49 PM NAME : NA GOOD PID : [id number] : 1935 Gender : Female Race : ORD : Procedure Date : Jan 27 2025 12:28:59 Edit Date : Jan 27 2025 12:49:52 Diagnosis: NORMAL SINUS RHYTHM LEFT AXIS DEVIATION LEFT BUNDLE BRANCH BLOCK ABNORMAL ECG NO STEMI/Sgarbossa Confirmed by HELDER CABRERA DO ([id number]) on 01/27/2025 12:49:49 PM Test Reason : Location : 1 : ER ED Overread By : HELDER CABRERA DO Edited By : HELDER CABRERA DO Referred By : , Acquired by : Edgar MARTINEZ [facility] HIGH SENSITIVITY TROPONIN T (INITIAL)on 01-27-2025 Troponin T.cardiac High sensitivity method [Mass/Vol] 32 ng/L High <12 [facility] Comment on above: Order Comment: Speci men Type: BLOOD SPECIMENOrdering Facility: [facility] Address: [address] [place] [address] Performed By: #### 1 9123-9, [id number], 41036-2, 20075-2 ####[facility]ORY[facility] [id number] [address] HIGH SENSITIVITY TROPONIN T (SECOND)on 01-27-2025 Troponin T.cardiac High sensitivity method [Mass/Vol] 30 ng/L High <12 [facility] Comment on above: Order Comment: Vita florez Type: BLOOD SPECIMENOrdering Facility: [facility] Address: [address] [place] [address] Performed By: #### L [id number] ####[facility]ORY[facility]IA [id number] [address] HIGH SENSITIVITY TROPONIN T (THIRD) 3 HRS AFTER INITIALon 01-27-2025 Troponin T.cardiac High sensitivity method [Mass/Vol] 31 ng/L High <12 [facility] Comment on above: Order Comment: Vita florez Type: BLOOD SPECIMENOrdering Facility: [facility] Address: [address] [place] [address] Performed By: #### L [id number] ####[facility]ATORYCLIA [id number] [place] [id number] [facility] HISTORY PHYSICALon HISTORY PHYSICAL HNO ID: [id number] Author: ANIKA CALI MD Service: Hospital Medicine Author Type: Physician Type: H&P Filed: 01/27/2025 20:33 Note Text: HOSPITAL MEDICINE HISTORY AND PHYSICAL PCP: Johnson Watson MD, NIGHT AND WEEKEND COVERAGE: [facility]: Days: [phone], please page attending physician. Nights: [phone], please page [facility] pager [phone]. SUBJECTIVE Chief Complaint: sob HPI: 89-year-old female [...] pt/ot -case mgmt consult pt resides at [facility] [1] Social History Tobacco Use Smoking status: Never Vaping Use Vaping status: Never Used Substance Use Topics Alcohol use: Yes Comment: occasionally Drug use: Never Normal [facility] Magnesium [Mass/Vol] 2.5 mg/dL High 1.7-2.3 [facility] Comment on above: Order Comment: Speci men Type: BLOOD SPECIMENOrdering Facility: [facility] Address: [address] [place] [address] Performed By: #### 1 9123-9, [id number], 17336-9, 35884-4 ####[facility]ATORYCLIA [id number] [address] [place] [facility] Natriuretic peptide.B prohormone N-Terminal [Mass/Vol] 31723 pg/mL High <450 [facility] Comment on above: Order Comment: Speci men Type: BLOOD SPECIMENOrdering Facility: [facility] Address: [address] [place] [address] Performed By: #### 1 9123-9, [id number], 54571-3, 10035-8 ####[facility]ORATORYCLIA [id number] [place] [address] [place] Urinalysis complete panel (U )on 01-27-2025 Bacteria LM.HPF (Urine sed) [#/Area] Moderate Abnormal None Seen [facility] Comment on above: Order Comment: Speci men Type: URINE SPECIMENOrdering Facility: [facility] Address: [address] [place] [address] Performed By: #### 2 4356-8 ####[facility]ORATORYCLIA [id number] [place] [address] [place]#### 630-4 ####[facility] LABCLIA [id number] [place] [address] [place] Bilirubin Ql (U) Negative Normal Negative [facility] Comment on above: Order Comment: Speci men Type: URINE SPECIMENOrdering Facility: [facility] Address: [address] [place] [address] Performed By: #### 2 4356-8 ####[facility]ORATORYCLIA [id number] [place] [address] [place]#### 630-4 ####[facility] LABCLIA [id number] [place] [address] [place] Clarity (Unsp spec) Slightly Cloudy Abnormal Clear [facility] Comment on above: Order Comment: Speci men Type: URINE SPECIMENOrdering Facility: [facility] Address: [address] [place] [address] Performed By: #### 2 4356-8 ####[facility]ORATORYCLIA [id number] [place] [address] [place]#### 630-4 ####[facility] LABCLIA [id number] [place] [address] [place] Color (U) Yellow Normal Yellow [facility] Comment on above: Order Comment: Speci men Type: URINE SPECIMENOrdering Facility: [facility] Address: [address] [place] [address] Performed By: #### 2 4356-8 ####[facility]ORATORYCLIA [id number] [place] [address] [place]#### 630-4 ####[facility] LABCLIA [id number] [place] [address] [place] Epithelial cells LM.HPF (Urine sed) [#/Area] Few Normal [facility] Comment on above: Order Comment: Speci men Type: URINE SPECIMENOrdering Facility: [facility] Address: [address] [place] [address] Performed By: #### 2 4356-8 ####[facility]ORATORYCLIA [id number] [place] [address] [place]#### 630-4 ####[facility] LABCLIA [id number] [place] [address] [place] Glucose Test strip (U) [Mass/Vol] 3+ Abnormal Negative [facility] Comment on above: Order Comment: Speci men Type: URINE SPECIMENOrdering Facility: [facility] Address: [address] [place] [address] Performed By: #### 2 4356-8 ####[facility] LABORATORYCLIA [id number] [place] [address] [place]#### 630-4 ####[facility] LABCLIA [id number] [place] [address] [place] Hemoglobin Ql (U) Trace Abnormal Negative [facility] Comment on above: Order Comment: Speci men Type: URINE SPECIMENOrdering Facility: [facility] Address: [address] [place] [address] Performed By: #### 2 4356-8 ####[facility] LABORATORYCLIA [id number] [place] [address] [place]#### 630-4 ####[facility] LABCLIA [id number] [place] [id number] [place] Ketones Ql (U) 1+ Abnormal Negative [facility] Comment on above: Order Comment: Speci men Type: URINE SPECIMENOrdering Facility: [facility] Address: [address] [place] [address] Performed By: #### 2 4356-8 ####[facility] LABORATORYCLIA [id number] [address] [place]#### 630-4 ####[facility] LABCLIA [id number] [place] [address] [place] Leukocyte esterase Test strip Ql (U) 1+ Abnormal Negative [facility] Comment on above: Order Comment: Speci men Type: URINE SPECIMENOrdering Facility: [facility] Address: [address] [place] [address] Performed By: #### 2 4356-8 ####[facility] LABORATORYCLIA [id number] [place] [address] [place]#### 630-4 ####[facility] LABCLIA [id number] [place] [address] [place] Nitrite Ql (U) Positive Abnormal Negative [facility] Comment on above: Order Comment: Speci men Type: URINE SPECIMENOrdering Facility: [facility] Address: [address] [place] [address] Performed By: #### 2 4356-8 ####[facility] LABORATORYCLIA [id number] [place] [address] [place]#### 630-4 ####[facility] LABCLIA [id number] [place] [address] [place] pH (U) 6.5 [pH] Normal 5.0-8.0 [facility] Comment on above: Order Comment: Speci men Type: URINE SPECIMENOrdering Facility: [facility] Address: [address] [place] [address] Performed By: #### 2 4356-8 ####[facility] LABORATORYCLIA [id number] [place] [address] [place]#### 630-4 ####[facility] LABCLIA [id number] [place] [address] [place] Protein (U) [Mass/Vol] Trace Abnormal Negative [facility] Comment on above: Order Comment: Speci men Type: URINE SPECIMENOrdering Facility: [facility] Address: [address] [place] [address] Performed By: #### 2 4356-8 ####[facility] LABORATORYCLIA [id number] [place] [address] [place] [facility] [place]#### 630-4 ####[facility] LABCLIA [id number] [place] [address] [place] RBC LM.HPF (Urine sed) [#/Area] 0-3 /HPF Normal 0-3 /HPF [facility] Comment on above: Order Comment: Speci men Type: URINE SPECIMENOrdering Facility: [facility] Address: [address] [place] [address] Performed By: #### 2 4356-8 ####[facility] LABORATORYCLIA [id number] [address] [place]#### 630-4 ####[facility] LABCLIA [id number] [place] [address] [place] Specific gravity (U) [Rel density] 1.015 Normal 1.005-1.030 [facility] Comment on above: Order Comment: Speci men Type: URINE SPECIMENOrdering Facility: [facility] Address: [address] [place] [address] Performed By: #### 2 4356-8 ####[facility] LABORATORYCLIA [id number] [place] [address] [place]#### 630-4 ####[facility] LABCLIA [id number] [place] [address] [place] Urobilinogen Ql (U) 0.2 EU/dL Normal 0.2-1.0 EU/dL [facility] Comment on above: Order Comment: Speci men Type: URINE SPECIMENOrdering Facility: [facility] Address: [address] [place] [id number] Performed By: #### 2 4356-8 ####[facility]ORATORYCLIA [id number] [address]#### 630-4 ####[facility] LABCLIA [id number] [place] [address] [place] WBC LM.HPF (Urine sed) [#/Area] 11-25 /HPF Abnormal 0-5 /HPF [facility] Comment on above: Order Comment: Speci men Type: URINE SPECIMENOrdering Facility: [facility] Address: [address] [place] [address] Performed By: #### 2 4356-8 ####[facility] LABORATORYCLIA [id number] [address]#### 630-4 ####[facility] LABCLIA [id number] [address] [place] XR CHEST 1V [...] cardiomediastinal silhouette. Other: . IMPRESSION: As above Race Starter: KONSTANTIN Transcribe Date/Time: Jan 27 2025 1:31P Dictated by : FRANCISCO NEGRETE MD This examination was interpreted and the report reviewed and electronically signed by: FRANCISCO NEGRETE MD on Jan 27 2025 1:32PM EST [id number] Normal [facility] Basic Metabolic Profile (BMP )on 01-05-2025 BUN/CRE 21.7 RATIO High 10-20 [facility] Comment on above: Order Comment: 546.1 Performed By: #### L 500.2500, L100.0500 #### [facility] [address] [place], [address] Calcium [Mass/Vol] 8.8 mg/dL Normal 7.6-11.0 [facility] Comment on above: Order Comment: 546.1 Performed By: #### L 500.2500, L100.0500 #### [facility] [address] [place], [address] Chloride [Moles/Vol] 107 mmol/L Normal 98-108 [facility] Comment on above: Order Comment: 546.1 Performed By: #### L 500.2500, L100.0500 #### [facility] [address] [place], [address] CO2 [Moles/Vol] 26.2 mmol/L Normal 21.0-32.0 [facility] Comment on above: Order Comment: 546.1 Performed By: #### L 500.2500, L100.0500 #### [facility] [address] [place], [address] Creatinine [Mass/Vol] 1.09 mg/dL Normal 0.70-1.20 [facility] Comment on above: Order Comment: 546.1 Performed By: #### L 500.2500, L100.0500 #### [facility] [address] [place], [address] GAP 8 Normal -15 [facility] Comment on above: Order Comment: 546.1 Performed By: #### L 500.2500, L100.0500 #### [facility] [address] [place], [address] GFR/1.73 sq M.predicted among non-blacks MDRD (S/P/Bld) [Vol rate/Area] 49 mL/min/{1.73_m2} Low >60 [facility] Comment on above: Order Comment: 546.1 Result Comment: mL/m in/1.73m2 CKD-EPI Creatinine Equation (2020) Performed By: #### L 500.2500, L100.0500 #### [facility] [address] [place], [address] Glucose [Mass/Vol] 75 mg/dL Normal 70-99 [facility] Comment on above: Order Comment: 546.1 Performed By: #### L 500.2500, L100.0500 #### [facility] [address] [place], [address] Potassium [Moles/Vol] 4.1 mmol/L Normal 3.3-5.1 [facility] Comment on above: Order Comment: 546.1 Performed By: #### L 500.2500, L100.0500 #### [facility] [address] [place], [address] Sodium [Moles/Vol] 142 mmol/L Normal 133-145 [facility] Comment on above: Order Comment: 546.1 Performed By: #### L 500.2500, L100.0500 #### [facility] [address], [address] Urea nitrogen [Mass/Vol] 24 mg/dL High 4-19 [facility] Comment on above: Order Comment: 546.1 Performed By: #### L 500.2500, L100.0500 #### [facility] [address], [address] Basic Metabolic Profile (BMP )on 12-29-2024 BUN/CRE 30.7 RATIO High 10-20 [facility] Comment on above: Order Comment: 546.1 Performed By: #### L 500.2500, L100.0500 #### [facility] [address] [place], [address] Calcium [Mass/Vol] 9.1 mg/dL Normal 7.6-11.0 [facility] Comment on above: Order Comment: 546.1 Performed By: #### L 500.2500, L100.0500 #### [facility] [address] [place], [address] Chloride [Moles/Vol] 103 mmol/L Normal 98-108 [facility] Comment on above: Order Comment: 546.1 Performed By: #### L 500.2500, L100.0500 #### [facility] [address] [place], [address] CO2 [Moles/Vol] 22.2 mmol/L Normal 21.0-32.0 [facility] Comment on above: Order Comment: 546.1 Performed By: #### L 500.2500, L100.0500 #### [facility] [address] [place], [address] Creatinine [Mass/Vol] 0.88 mg/dL Normal 0.70-1.20 [facility] Comment on above: Order Comment: 546.1 Performed By: #### L 500.2500, L100.0500 #### [facility] [address] [place], [address] GAP 13 Normal 5-15 [facility] Comment on above: Order Comment: 546.1 Performed By: #### L 500.2500, L100.0500 #### [facility] [address] [place], [address] GFR/1.73 sq M.predicted among non-blacks MDRD (S/P/Bld) [Vol rate/Area] 63 mL/min/{1.73_m2} Normal >60 [facility] Comment on above: Order Comment: 546.1 Result Comment: mL/m in/1.73m2 CKD-EPI Creatinine Equation (2020) Performed By: #### L 500.2500, L100.0500 #### [facility] [address] [place], [address] Glucose [Mass/Vol] 78 mg/dL Normal 70-99 [facility] Comment on above: Order Comment: 546.1 Performed By: #### L 500.2500, L100.0500 #### [facility] [address] [place], [address] Potassium [Moles/Vol] 4.2 mmol/L Normal 3.3-5.1 [facility] Comment on above: Order Comment: 546.1 Performed By: #### L 500.2500, L100.0500 #### [facility] [address] [place], [address] Sodium [Moles/Vol] 138 mmol/L Normal 133-145 [facility] Comment on above: Order Comment: 546.1 Performed By: #### L 500.2500, L100.0500 #### [facility] [address] [place], [address] Urea nitrogen [Mass/Vol] 27 mg/dL High 4-19 [facility] Comment on above: Order Comment: 546.1 Performed By: #### L 500.2500, L100.0500 #### [facility] [address] [place], [address] CBC-Complete Blood Cnt No Di ffon 12-29-2024 Erythrocyte distribution width (RBC) [Ratio] 15.7 % High 11.6-14.6 [facility] Comment on above: Order Comment: 546-1 Performed By: #### L 100.0500, L500.2500 #### [facility] [address] [place], [address] Hematocrit (Bld) [Volume fraction] 41.1 % Normal 37-47 [facility] Comment on above: Order Comment: 546-1 Performed By: #### L 100.0500, L500.2500 #### [facility] [address] [place], [address] Hemoglobin (Bld) [Mass/Vol] 13.7 g/dL Normal 12.0-15.0 [facility] Comment on above: Order Comment: 546-1 Performed By: #### L 100.0500, L500.2500 #### [facility] [address] [place], [address] MCH (RBC) [Entitic mass] 30.0 pg Normal 27.0-32.0 [facility] Comment on above: Order Comment: 546-1 Performed By: #### L 100.0500, L500.2500 #### [facility] [address] [place], [address] MCHC (RBC) [Mass/Vol] 33.3 g/dL Normal 32-36 [facility] Comment on above: Order Comment: 546-1 Performed By: #### L 100.0500, L500.2500 #### [facility] [address] [place], [address] MCV (RBC) [Entitic vol] 90.1 fL Normal 81-99 [facility] Comment on above: Order Comment: 546-1 Performed By: #### L 100.0500, L500.2500 #### [facility] [address] [place], [address] Platelet mean volume (Bld) [Entitic vol] 10.7 fL Normal 6.2-12.0 [facility] Comment on above: Order Comment: 546-1 Performed By: #### L 100.0500, L500.2500 #### [facility] [address] [place], [address] Platelets (Bld) [#/Vol] 331 10*3/uL Normal 150-450 [facility] Comment on above: Order Comment: 546-1 Performed By: #### L 100.0500, L500.2500 #### [facility] [address] [place], [address] RBC (Bld) [#/Vol] 4.56 10*6/uL Normal 4.2-5.4 [facility] Comment on above: Order Comment: 546-1 Performed By: #### L 100.0500, L500.2500 #### [facility] [address] [place], [address] RDW SD 51.1 fl High 35.1-43.9 [facility] Comment on above: Order Comment: 546-1 Performed By: #### L 100.0500, L500.2500 #### [facility] [address] [place], [address] WBC (Bld) [#/Vol] 8.7 10*3/uL Normal 4.4-11.0 [facility] Comment on above: Order Comment: 546-1 Performed By: #### L 100.0500, L500.2500 #### [facility] [address] [place], [address] Basic metabolic 2000 panelon 12-27-2024 Anion gap [Moles/Vol] 11 mmol/L Normal 8-15 [facility] Comment on above: Order Comment: Speci men Type: BLOOD SPECIMEN [facility] Address: [address] [place] [address] Performed By: #### 2 4321-2 #### [facility] CLIA [id number] [address] [place] [address] [place] Calcium [Mass/Vol] 8.9 mg/dL Normal 8.5-10.2 [facility] Comment on above: Order Comment: Speci men Type: BLOOD SPECIMEN [facility] Address: [address] [place] [address] Performed By: #### 2 4321-2 #### [facility] CLIA [id number] [address] [place] Chloride [Moles/Vol] 97 mmol/L Low 98-107 [facility] Comment on above: Order Comment: Vita florez Type: BLOOD SPECIMEN [facility] Address: [address] [place] [address] Performed By: #### 2 4321-2 #### [facility] CLIA [id number] [address] [place] CO2 [Moles/Vol] 26 mmol/L Normal 22-30 [facility] Comment on above: Order Comment: Vita men Type: BLOOD SPECIMEN [facility] Address: [address] [place] [address] Performed By: #### 2 4321-2 #### [facility] CLIA [id number] [address] [place] [facility] Creatinine [Mass/Vol] 0.97 mg/dL High 0.58-0.96 [facility] Comment on above: Order Comment: Vtia florez Type: BLOOD SPECIMEN [facility] Address: [address] [place] [address] Performed By: #### 2 4321-2 #### [facility] CLIA [id number] [address] eGFRcr SerPlBld CKD-EPI 2020 56 mL/min/1.73m??? Low >=60 [facility] Comment on above: Order Comment: Vita florez Type: BLOOD SPECIMEN [facility] Address: [address] [place] [address] Result Comment: Radha mated Glomerular Filtration Rate [...] #### 2 4321-2 #### [facility] CLIA [id number] [address] STATES OF [facility] Glucose [Mass/Vol] 84 mg/dL Normal 74-99 [facility] Comment on above: Order Comment: Vita florez Type: BLOOD SPECIMEN [facility] Address: [address] [place] [address] Result Comment: The [place] Diabetes Association (ADA) provides guidance for cutoff [...] Standards of Medical Care in Diabetes 2016, [place] Diabetes Association. Diabetes Care. 2016.39(Suppl 1). Performed By: #### 2 4321-2 #### [facility] CLIA [id number] [address] [place] [address] [place] Potassium [Moles/Vol] 3.6 mmol/L Low 3.7-5.1 [facility] Comment on above: Order Comment: Vita florez Type: BLOOD SPECIMEN [facility] Address: [address] [place] [address] Performed By: #### 2 4321-2 #### [facility] CLIA [id number] [address] [place] [address] [place] Sodium [Moles/Vol] 134 mmol/L Low 136-144 [facility] Comment on above: Order Comment: Vita florez Type: BLOOD SPECIMEN [facility] Address: [address] [place] [address] Performed By: #### 2 4321-2 #### [facility] CLIA [id number] [address] [place] [address] [place] Urea nitrogen [Mass/Vol] 28 mg/dL High 7-21 [facility] Comment on above: Order Comment: Vita florez Type: BLOOD SPECIMEN [facility] Address: [address] [place] [address] Performed By: #### 2 4321-2 #### [facility] CLIA [id number] [address] [place] CBC panel Auto (Bld)on 12-27 Erythrocyte distribution width (RBC) [Ratio] 15.6 % High 11.5-15.0 [facility] Comment on above: Order Comment: Speci men Type: BLOOD SPECIMENOrdering Facility: [facility] Address: [address] [place] [address] Performed By: #### 5 8410-2 ####[facility]CL[facility] [id number] [address] Hematocrit (Bld) [Volume fraction] 41.6 % Normal 36.0-46.0 [facility] Comment on above: Order Comment: Speci men Type: BLOOD SPECIMENOrdering Facility: [facility] Address: [address] [place] [address] Performed By: #### 5 8410-2 ####[facility]ORYCL[facility] [id number] [address] Hemoglobin (Bld) [Mass/Vol] 13.9 g/dL Normal 11.5-15.5 [facility] Comment on above: Order Comment: Speci men Type: BLOOD SPECIMENOrdering Facility: [facility] Address: [address] [place] [address] Performed By: #### 5 8410-2 ####BAIRD LABORATORYCLIA [id number] [address] MCH (RBC) [Entitic mass] 29.2 pg Normal 26.0-34.0 [facility] Comment on above: Order Comment: Speci men Type: BLOOD SPECIMENOrdering Facility: [facility] Address: [address] [place] [address] Performed By: #### 5 8410-2 ####BAIRD LABORATORYCLIA [id number] [address] MCHC (RBC) [Mass/Vol] 33.4 g/dL Normal 30.5-36.0 [facility] Comment on above: Order Comment: Speci men Type: BLOOD SPECIMENOrdering Facility: [facility] Address: [address] [place] [address] Performed By: #### 5 8410-2 ####BAIRD LABORATORYCLIA [id number] [place] [address] [place] MCV (RBC) [Entitic vol] 87.4 fL Normal 80.0-100.0 [facility] Comment on above: Order Comment: Speci men Type: BLOOD SPECIMENOrdering Facility: [facility] Address: [address] [place] [address] Performed By: #### 5 8410-2 ####BAIRD LABORATORYCLIA [id number] [address] [place] Nucleated RBC (Bld) [#/Vol] 10*3/uL Normal <0.01 [facility] Comment on above: Order Comment: Speci men Type: BLOOD SPECIMENOrdering Facility: [facility] Address: [address] [place] [address] Performed By: #### 5 8410-2 ####BAIRD LABORATORYCLIA [id number] [address] [place] Platelet mean volume (Bld) [Entitic vol] 10.2 fL Normal 9.0-12.7 [facility] Comment on above: Order Comment: Speci men Type: BLOOD SPECIMENOrdering Facility: [facility] Address: [address] [place] [address] Performed By: #### 5 8410-2 ####BAIRD LABORATORYCLIA [id number] [address] [place] Platelets (Bld) [#/Vol] 334 10*3/uL Normal 150-400 [facility] Comment on above: Order Comment: Speci men Type: BLOOD SPECIMENOrdering Facility: [facility] Address: [address] [place] [address] Performed By: #### 5 8410-2 ####BAIRD LABORATORYCLIA [id number] [place] [address] [place] RBC (Bld) [#/Vol] 4.76 10*6/uL Normal 3.90-5.20 [facility] Comment on above: Order Comment: Vita florez Type: BLOOD SPECIMENOrdering Facility: [facility] Address: [address] [place] [id number] Performed By: #### 5 8410-2 ####BAYSIDE LABORATORYCLIA [id number] [place] [id number] [facility] WBC (Bld) [#/Vol] 11.86 10*3/uL High 3.70-11.00 [facility] Comment on above: Order Comment: Specsj florez Type: BLOOD SPECIMENOrdering Facility: [facility] Address: [address] [place] [id number] Performed By: #### 5 8410-2 ####BAYSIDE LABORATORYCLIA [id number] [place] [id number] [facility] CNDSon 12-27-2024 CNDS HNO ID: [id number] Author: JOSE ANTONIO MILTON MD Service: General [...] being discharged to her Assisted Living with [facility] Transitions of Care Critical Issues: [...] medications will be mailed to you From: [facility] [place] [address] - [address] - [phone] enalapril 2.5 mg tablet furosemide 20 mg tablet FUTURE APPOINTMENTS: Follow Up with PCP: Johnson Watson MD, MD The patient's risk for 30-day readmission is determined using the following contributing factors: Predictive Model Details 11% (Low) Factor Value Calculated 12/27/2024 05:20 -16% diagnosis count 5 [facility] READMISSION RISK Model 11% Facility [facility] -8% ED visits (365d) 0 8% Hospital Unit [address] -8% Admissions (365d) 1 -6% ED Encounter 0 -6% Sodium (Avg) 138.33 -5% Malnutrition 0 -5% Observations (365d) 0 -5% Current Age 89 Plan of care discussed with Patient, Family/Significant Other: son, Care Management, and RN I have performed the ofpd-pr-fkqk and relevant services for a total of >30 minutes. SIGNATURE: Jose Antonio Milton MD DATE: December 27, 2024 TIME: 10:38 AM Normal [facility] Basic metabolic 2000 panelon 12-26-2024 Anion gap [Moles/Vol] 11 mmol/L Normal 8-15 [facility] Comment on above: Order Comment: Specsj florez Type: BLOOD SPECIMENOrdering Facility: [facility] Address: [address] [place] [address] Performed By: #### 2 4321-2 ####BAYSIDE LABORATORYCLIA [id number] [place] [address] [place] Calcium [Mass/Vol] 8.9 mg/dL Normal 8.5-10.2 [facility] Comment on above: Order Comment: Vita florez Type: BLOOD SPECIMENOrdering Facility: [facility] Address: [address] [place] [address] Performed By: #### 2 4321-2 ####BAYSIDE LABORATORYCLIA [id number] [place] [address] [place] Chloride [Moles/Vol] 101 mmol/L Normal 98-107 [facility] Comment on above: Order Comment: Vita men Type: BLOOD SPECIMENOrdering Facility: [facility] Address: [address] [place] [address] Performed By: #### 2 4321-2 ####BAIRD LABORATORYCLIA [id number] [place] [address] [place] CO2 [Moles/Vol] 28 mmol/L Normal 22-30 [facility] Comment on above: Order Comment: Speci men Type: BLOOD SPECIMENOrdering Facility: [facility] Address: [address] [place] [address] Performed By: #### 2 4321-2 ####BAIRD LABORATORYCLIA [id number] [address] [place] Creatinine [Mass/Vol] 1.07 mg/dL High 0.58-0.96 [facility] Comment on above: Order Comment: Valei men Type: BLOOD SPECIMENOrdering Facility: [facility] Address: [address] [place] [address] Performed By: #### 2 4321-2 ####BAIRD LABORATORYCLIA [id number] [address] eGFRcr SerPlBld CKD-EPI 2020 50 mL/min/1.73m??? Low >=60 [facility] Comment on above: Order Comment: Vita gautam Type: BLOOD SPECIMENOrdering Facility: [facility] Address: [address] [place] [address] Result Comment: Radha mated Glomerular Filtration Rate [...] Performed By: #### 2 4321-2 ####BAIRD LABORATORYCLIA [id number] [address] [place] Glucose [Mass/Vol] 77 mg/dL Normal 74-99 [facility] Comment on above: Order Comment: Vita men Type: BLOOD SPECIMENOrdering Facility: [facility] Address: [address] [place] [address] Result Comment: The [place] Diabetes Association (ADA) provides guidance for cutoff [...] Standards of Medical Care in Diabetes 2016, [place] Diabetes Association. Diabetes Care. 2016.39(Suppl 1). Performed By: #### 2 4321-2 ####BAIRD LABORATORYCLIA [id number] [place] [address] [place] Potassium [Moles/Vol] 3.7 mmol/L Normal 3.7-5.1 [facility] Comment on above: Order Comment: Vita florez Type: BLOOD SPECIMENOrdering Facility: [facility] Address: [address] [place] [address] Performed By: #### 2 4321-2 ####BAIRD LABORATORYCLIA [id number] [place] [id number] [place] Sodium [Moles/Vol] 140 mmol/L Normal 136-144 [facility] Comment on above: Order Comment: Valei men Type: BLOOD SPECIMENOrdering Facility: [facility] Address: [address] [place] [address] Performed By: #### 2 4321-2 ####BAIRD LABORATORYCLIA [id number] [place] [address] [place] Urea nitrogen [Mass/Vol] 31 mg/dL High 7-21 [facility] Comment on above: Order Comment: Vita florez Type: BLOOD SPECIMENOrdering Facility: [facility] Address: [address] [place] [address] Performed By: #### 2 4321-2 ####BAIRD LABORATORYCLIA [id number] [address] CBC panel Auto (Bld)on 12-26 Erythrocyte distribution width (RBC) [Ratio] 15.8 % High 11.5-15.0 [facility] Comment on above: Order Comment: Speci men Type: BLOOD SPECIMENOrdering Facility: [facility] Address: [address] [place] [address] Performed By: #### 5 8410-2 ####BAIRD LABORATORYCLIA [id number] [address] Hematocrit (Bld) [Volume fraction] 41.9 % Normal 36.0-46.0 [facility] Comment on above: Order Comment: Speci men Type: BLOOD SPECIMENOrdering Facility: [facility] Address: [address] [place] [address] Performed By: #### 5 8410-2 ####BAIRD LABORATORYCLIA [id number] [address] Hemoglobin (Bld) [Mass/Vol] 14.0 g/dL Normal 11.5-15.5 [facility] Comment on above: Order Comment: Speci men Type: BLOOD SPECIMENOrdering Facility: [facility] Address: [address] [place] [address] Performed By: #### 5 8410-2 ####BAIRD LABORATORYCLIA [id number] [address] MCH (RBC) [Entitic mass] 29.7 pg Normal 26.0-34.0 [facility] Comment on above: Order Comment: Speci men Type: BLOOD SPECIMENOrdering Facility: [facility] Address: [address] [place] [address] Performed By: #### 5 8410-2 ####BAIRD LABORATORYCLIA [id number] [address] MCHC (RBC) [Mass/Vol] 33.4 g/dL Normal 30.5-36.0 [facility] Comment on above: Order Comment: Speci men Type: BLOOD SPECIMENOrdering Facility: [facility] Address: [address] [place] [address] Performed By: #### 5 8410-2 ####BAIRD LABORATORYCLIA [id number] [address] MCV (RBC) [Entitic vol] 89.0 fL Normal 80.0-100.0 [facility] Comment on above: Order Comment: Speci men Type: BLOOD SPECIMENOrdering Facility: [facility] Address: [address] [place] [address] Performed By: #### 5 8410-2 ####BAIRD LABORATORYCLIA [id number] [address] Nucleated RBC (Bld) [#/Vol] 10*3/uL Normal <0.01 [facility] Comment on above: Order Comment: Speci men Type: BLOOD SPECIMENOrdering Facility: [facility] Address: [address] [place] [address] Performed By: #### 5 8410-2 ####BAIRD LABORATORYCLIA [id number] [address] Platelet mean volume (Bld) [Entitic vol] 10.6 fL Normal 9.0-12.7 [facility] Comment on above: Order Comment: Speci men Type: BLOOD SPECIMENOrdering Facility: [facility] Address: [address] [place] [address] Performed By: #### 5 8410-2 ####BAIRD LABORATORYCLIA [id number] [address] Platelets (Bld) [#/Vol] 364 10*3/uL Normal 150-400 [facility] Comment on above: Order Comment: Speci men Type: BLOOD SPECIMENOrdering Facility: [facility] Address: [address] [place] [address] Performed By: #### 5 8410-2 ####BAIRD LABORATORYCLIA [id number] [address] RBC (Bld) [#/Vol] 4.71 10*6/uL Normal 3.90-5.20 [facility] Comment on above: Order Comment: Specsj florez Type: BLOOD SPECIMENOrdering Facility: [facility] Address: [address] [place] [id number] Performed By: #### 5 8410-2 ####BAYSIDE LABORATORYCLIA [id number] [address] WBC (Bld) [#/Vol] 10.64 10*3/uL Normal 3.70-11.00 [facility] Comment on above: Order Comment: Speci men Type: BLOOD SPECIMENOrdering Facility: [facility] Address: [address] [place] [address] Performed By: #### 5 8410-2 ####BAYSIDE LABORATORYCLIA [id number] [address] ECHOon 12-26-2024 Echocardiography Echocardiography Report: Transthoracic Echo [facility] Date of service: 12/26/2024 12:23:03 PM Ordering physician: COLLEEN OLIVARES Exam indication: cardiomyopathy Technologist: Caterina Mao [facility] Interpreting physician: Rojas Matthews MD PATIENT: Name: [...] * * Final * * * CC [employer] : [id number] Normal [facility] NURSING PROGon 12-26-2024 NURSING PROG HNO ID: [id number] Author: RAULITO CHAVEZ RN Service: Nursing Author Type: Registered Nurse Type: Nursing Progress Note Filed: 12/26/2024 14:50 Note Text: PATIENT EDUCATION HEART FAILURE PATIENT NAME: Na Good PATIENT LOCATION: [place] [address] [address] 2 SURVIVAL SKILLS: Low Sodium Diet Weight [...] Skill discussed. Pt in assisted living in [place], this is fairly new for her. Children are all out of states. Son will discuss daily weight and low sodium meal plan w/ staff. Currently she orders off a menu @ meal times. Pt doesn't drink over 64 ounces per day, but unsure of intake. Medications are provided to her @ [place]. 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 Pt states her normal weighs are b/t [...] Patient Education Electronically Signed By: Raulito Chavez [facility] THERAPY NT 12-26-2024 THERAPY NT HNO ID: [id number] Author: LESLIE BARRERA PT Service: Physical Therapy Author Type: Physical Therapist Type: Therapy (PT/OT/Speech/Resp) Filed: 12/26/2024 11:56 Note Text: Summary: PT eval Physical Therapy Evaluation Summary SERVICE DATE: 12/26/2024 SERVICE TIME: 1123 to 1146 ROOM: [place] [address] PT 6 Clicks Score: 18 DISCHARGE RECOMMENDATIONS [...] HOME LIVING Patient Lives With: Facility Care ([facility]) Assistance Available: 24-Hour (has a necklace she [...] on feet TREATMENT INTERVENTIONS Evaluation, Therapeutic Exercise (72577) Timed Code Treatment (minutes): 8 Skilled Treatment Time (minutes): 23 $ Evaluation-Low (24150) Billed Units: 1 unit Therapeutic Exercise (30671) Treatment Minutes: 8 $ Therapeutic Exercise (87249) Billed Units: 1 unit TRAINING AND EDUCATION [...] Equipment: Wheele (more content not included)... Normal [facility] Basic metabolic 2000 panelon 12-25-2024 Anion gap [Moles/Vol] 10 mmol/L Normal 8-15 [facility] Comment on above: Order Comment: Speci men Type: BLOOD SPECIMENOrdering Facility: [facility] Address: [address] [place] [address] Performed By: #### 2 4321-2, 3016-3 ####BAYSIDE LABORATORYCLIA [id number] [place] [address] [place]#### 3024-7 ####[facility] LABCLIA [id number] [address] [address] [place] Calcium [Mass/Vol] 9.1 mg/dL Normal 8.5-10.2 [facility] Comment on above: Order Comment: Speci men Type: BLOOD SPECIMENOrdering Facility: [facility] Address: [address] [place] [address] Performed By: #### 2 4321-2, 6-3 ####BAIRD LABORATORYCLIA [id number] [place] [address] [place]#### 3024-7 ####[facility] LABCLIA [id number] [place] [address] [place] Chloride [Moles/Vol] 103 mmol/L Normal 98-107 [facility] Comment on above: Order Comment: Speci men Type: BLOOD SPECIMENOrdering Facility: [facility] Address: [address] [place] [address] Performed By: #### 2 4321-2, 3015-3 ####BAYSIDE LABORATORYCLIA [id number] [place] [address] [place]#### 3024-7 ####[facility] LABCLIA [id number] [place] [address] [place] CO2 [Moles/Vol] 26 mmol/L Normal 22-30 [facility] Comment on above: Order Comment: Speci men Type: BLOOD SPECIMENOrdering Facility: [facility] Address: [address] [place] [address] Performed By: #### 2 4321-2, 3015-3 ####BAYSIDE LABORATORYCLIA [id number] [place] [address] [place]#### 3024-7 ####[facility] LABCLIA [id number] [place] [id number] [place] Creatinine [Mass/Vol] 1.01 mg/dL High 0.58-0.96 [facility] Comment on above: Order Comment: Speci men Type: BLOOD SPECIMENOrdering Facility: [facility] Address: [address] [place] [address] Performed By: #### 2 4321-2, 3016-3 ####BAYSIDE LABORATORYCLIA [id number] [place] [address] [place]#### 3024-7 ####[facility] LABCLIA [id number] [place] [address] [place] eGFRcr SerPlBld CKD-EPI 2020 53 mL/min/1.73m??? Low >=60 [facility] Comment on above: Order Comment: Vita florez Type: BLOOD SPECIMENOrdering Facility: [facility] Address: [address] [place] [address] Result Comment: Radha mated Glomerular Filtration Rate [...] GFR. Performed By: #### 2 4321-2, 3016-3 ####BAYSIDE LABORATORYCLIA [id number] [place] [address] [place]#### 3024-7 ####[facility] LABCLIA [id number] [place] [address] [place] Glucose [Mass/Vol] 80 mg/dL Normal 74-99 [facility] Comment on above: Order Comment: Vita florez Type: BLOOD SPECIMENOrdering Facility: [facility] Address: [address] [place] [address] Result Comment: The [place] Diabetes Association (ADA) provides guidance for cutoff [...] Standards of Medical Care in Diabetes 2016, [place] Diabetes Association. Diabetes Care. 2016.39(Suppl 1). Performed By: #### 2 4321-2, 6-3 ####BAIRD LABORATORYCLIA [id number] [place] [address] [place]#### 3024-7 ####[facility] LABCLIA [id number] [place] [id number] [place] Potassium [Moles/Vol] 4.3 mmol/L Normal 3.7-5.1 [facility] Comment on above: Order Comment: Speci men Type: BLOOD SPECIMENOrdering Facility: [facility] Address: [address] [place] [address] Performed By: #### 2 4320-2, 3015-3 ####BAIRD LABORATORYCLIA [id number] [place] [address] [place]#### 3024-7 ####[facility] LABCLIA [id number] [place] [address] [place] Sodium [Moles/Vol] 139 mmol/L Normal 136-144 [facility] Comment on above: Order Comment: Speci men Type: BLOOD SPECIMENOrdering Facility: [facility] Address: [address] [place] [address] Performed By: #### 2 4320-2, 3015-3 ####BAIRD LABORATORYCLIA [id number] [place] [address] [place]#### 3024-7 ####[facility] LABCLIA [id number] [place] [address] [place] Urea nitrogen [Mass/Vol] 25 mg/dL High 7-21 [facility] Comment on above: Order Comment: Valei men Type: BLOOD SPECIMENOrdering Facility: [facility] Address: [address] [place] [address] Performed By: #### 2 4321-2, 3016-3 ####BAIRD LABORATORYCLIA [id number] [address] [place]#### 3024-7 ####[facility] LABCLIA [id number] [address] [place] CBC panel Auto (Bld)on 12-25 Erythrocyte distribution width (RBC) [Ratio] 15.9 % High 11.5-15.0 [facility] Comment on above: Order Comment: Speci men Type: BLOOD SPECIMENOrdering Facility: [facility] Address: [address] [place] [address] Performed By: #### 5 8410-2 ####BAIRD LABORATORYCLIA [id number] [address] [place] Hematocrit (Bld) [Volume fraction] 40.0 % Normal 36.0-46.0 [facility] Comment on above: Order Comment: Speci men Type: BLOOD SPECIMENOrdering Facility: [facility] Address: [address] [place] [address] Performed By: #### 5 8410-2 ####BAIRD LABORATORYCLIA [id number] [address] [place] Hemoglobin (Bld) [Mass/Vol] 13.0 g/dL Normal 11.5-15.5 [facility] Comment on above: Order Comment: Speci men Type: BLOOD SPECIMENOrdering Facility: [facility] Address: [address] [place] [address] Performed By: #### 5 8410-2 ####BAIRD LABORATORYCLIA [id number] [address] MCH (RBC) [Entitic mass] 29.1 pg Normal 26.0-34.0 [facility] Comment on above: Order Comment: Speci men Type: BLOOD SPECIMENOrdering Facility: [facility] Address: [address] [place] [address] Performed By: #### 5 8410-2 ####BAIRD LABORATORYCLIA [id number] [address] MCHC (RBC) [Mass/Vol] 32.5 g/dL Normal 30.5-36.0 [facility] Comment on above: Order Comment: Speci men Type: BLOOD SPECIMENOrdering Facility: [facility] Address: [address] [place] [address] Performed By: #### 5 8410-2 ####BAIRD LABORATORYCLIA [id number] [address] MCV (RBC) [Entitic vol] 89.7 fL Normal 80.0-100.0 [facility] Comment on above: Order Comment: Speci men Type: BLOOD SPECIMENOrdering Facility: [facility] Address: [address] [place] [address] Performed By: #### 5 8410-2 ####BAIRD LABORATORYCLIA [id number] [address] [place] Nucleated RBC (Bld) [#/Vol] 10*3/uL Normal <0.01 [facility] Comment on above: Order Comment: Speci men Type: BLOOD SPECIMENOrdering Facility: [facility] Address: [address] [place] [address] Performed By: #### 5 8410-2 ####BAIRD LABORATORYCLIA [id number] [address] Platelet mean volume (Bld) [Entitic vol] 10.2 fL Normal 9.0-12.7 [facility] Comment on above: Order Comment: Speci men Type: BLOOD SPECIMENOrdering Facility: [facility] Address: [address] [place] [address] Performed By: #### 5 8410-2 ####BAIRD LABORATORYCLIA [id number] [address] [place] Platelets (Bld) [#/Vol] 324 10*3/uL Normal 150-400 [facility] Comment on above: Order Comment: Speci men Type: BLOOD SPECIMENOrdering Facility: [facility] Address: [address] [place] [address] Performed By: #### 5 8410-2 ####BAIRD LABORATORYCLIA [id number] [address] [place] RBC (Bld) [#/Vol] 4.46 10*6/uL Normal 3.90-5.20 [facility] Comment on above: Order Comment: Speci men Type: BLOOD SPECIMENOrdering Facility: [facility] Address: [address] [place] [address] Performed By: #### 5 8410-2 ####BAIRD LABORATORYCLIA [id number] [place] [id number] [facility] WBC (Bld) [#/Vol] 9.63 10*3/uL Normal 3.70-11.00 [facility] Comment on above: Order Comment: Speci men Type: BLOOD SPECIMENOrdering Facility: [facility] Address: [address] [place], [place] [address] Performed By: #### 5 8410-2 ####BAIRD LABORATORYCLIA [id number] [place] [id number] [facility] CONSULTon 12-25-2024 CONSULT HNO ID: [id number] Author: ROJAS MATTHEWS MD Service: Cardiovascular Medicine Author Type: Physician Type: Consults Filed: 12/25/2024 15:05 Note Text: . [facility] Department of Cardiovascular Medicine SECTION OF REG[facility] Consultation Note Name: Na Good : 1935 Primary Physician: Johnson Watson MD, MD Consulting Physician: Liam Smith MD Primary Saddle And Side Wire Stitcher: SERVICE DATE: December 25, 2024 ADMISSION HISTORY [...] diminished int (more content not included)... Normal [facility] HISTORY PHYSICALon HISTORY PHYSICAL HNO ID: [id number] Author: LIAM SMITH MD Service: General Internal Medicine Author Type: Physician Type: H&P Filed: 12/25/2024 14:11 Note Text: [facility] STAFF PHYSICIAN NOTE OF PERSONAL INVOLVEMENT IN [...] counseling and/or coordinating care for the patient. Nguu-ih-ikgs time was 35 minutes SIGNATURE: Liam Smith [...] thrombus (eliquis), HTN, tremors, macular degeneration, CAD, [place], and insomnia. Her medical records in [facility] are from [place], [place]. Daughter, Janelle is at the bedside. (She is from [place]). She moved back to [place] in August due to the altitude- shortness of breath. She is residing at [facility] in [place]. She does not know all her medications as they administer them for her. She provided AL paperwork. She is A/ox3, very [place], she uses 2 walking sticks to ambulate, she has NEW/ occasional dry, non productive cough, she is on RA, lungs diminished, no edema. 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 Daughter informs me [...] Respiratory: P (more content not included)... Normal [facility] T4 Free SerPl-mCncon 025 Free T4 [Mass/Vol] 1.9 ng/dL High 0.9-1.7 [facility] Comment on above: Order Comment: Speci men Type: BLOOD SPECIMENOrdering Facility: [facility] Address: [address] [place] [address] Performed By: #### 2 4321-2, 3016-3 ####[facility]ORATORYCLIA [id number] [address] [place]#### 3024-7 ####[facility] LAB[facility] [id number] [address] OF [facility] THERAPY NTon 12-25-2024 THERAPY NT HNO ID: [id number] Author: CAROLE HUGHES OT/Amy Service: Occupational Therapy Author Type: Occupational Therapist Type: Therapy (PT/OT/Speech/Resp) Filed: 12/25/2024 11:37 Note Text: Summary: OT Evaluation Occupational Therapy Evaluation Summary SERVICE DATE: 12/25/2024 SERVICE TIME: 1103 to 1127 ROOM: [place] [address] OT 6 Clicks Score: 20 DISCHARGE RECOMMENDATIONS [...] baseline with ADLs and functional mobility/transfers, very [place], follows commands appropriately, reports no questions/concerns for returning to [facility] PRECAUTIONS Bed/Chair Alarm, Fall Risk CURRENT HOSPITAL COURSE Patient presents with abdominal pain and Shortness of Breath, admitted for acute on chronic CHF Relevant Past Medical History: cardiomyopathy, goiter, osteopenia, pleural effusions, macular degeneration, tremors, HTN, LV thrombus, CHF, [place], insomnia HOME LIVING Patient Lives With: Facility Care ([facility]) Assistance Available: 24-Hour (has a necklace she [...] daily living (ADL) TREATMENT INTERVENTIONS Evaluation, Self Prison Management (60922) Timed Code Treatment (minutes): 9 Skilled Treatment Time (minutes): 24 TRAINING AND EDUCATION PROVIDED Activity Adaptation/Slusher Operator y Strategies, Adaptive Equipment/DME, Bed Mobility, Benefits of In-Hospital Mobility, Cognitive Skills, Command Following, Discharge Planning, Expected Functional Level, Functional Mobility Involving ADLs, Insight into Deficits, Lower Extremity Dressing, Memory/Attention, Orientation, Positioning, Role of Occupational Therapy, Safety/Judgment, Sitting Balance to Improve [place] with ADLs/Self-Care, Standing Balance to Improve [place] with ADLs/Self-Care, Transfer - Bed to Chair, [...] Toilet/Commode S (more content not included)... Normal [facility] TSH SerPl-aCncon 12-25-2024 TSH Qn 0.326 m[IU]/L Normal 0.270-4.200 [facility] Comment on above: Order Comment: Speci men Type: BLOOD SPECIMENOrdering Facility: [facility] Address: [address] [place] [address] Performed By: #### 2 4321-2, 3016-3 ####[facility]ATORYCLIA [id number] [place] [address] [place]#### 3024-7 ####[facility] LAB[facility]IA [id number] [address] [address] [place] ALLIED HEALTHon 12-24-2024 ALLIED HEALTH HNO ID: [id number] Author: PETER RAHMAN RT(R) Service: Radiology Author Type: Insulation Professional Type: Allied Health Filed: 12/24/2024 13:03 Note Text: Radiology Service Progress Note PATIENT NAME: Na Godo DATE OF SERVICE: December 24, 2024 TIME: [...] PATIENT PRESENTS WITH AN IMPLANTABLE OR ATTACHED OTR FLATBED DRIVER: No RADIOLOGY DEPARTMENT: General X-ray: Exam(s) Completed: Chest X-Ray PERIPHERAL IV DATA: Not applicable SIGNED BY: RT Lary(R) December 24, 2024 1:03 PM Normal [facility] Basic metabolic 2000 panelon 12-24-2024 Anion gap [Moles/Vol] 12 mmol/L Normal 8-15 [facility] Comment on above: Order Comment: Speci men Type: BLOOD SPECIMENOrdering Facility: [facility] Address: [address] [place] [address] Performed By: #### H STNT, 01490-7, 83155-3, 00918-7, 6-3 ####[facility]ORATORYCLIA [id number] [place] [address] [place] Calcium [Mass/Vol] 9.5 mg/dL Normal 8.5-10.2 [facility] Comment on above: Order Comment: Speci men Type: BLOOD SPECIMENOrdering Facility: [facility] Address: [address] [place] [address] Performed By: #### H STNT, 85975-0, 16593-7, 38818-9, 6-3 ####[facility] LABORATORYCLIA [id number] [place] [address] [place] Chloride [Moles/Vol] 101 mmol/L Normal 98-107 [facility] Comment on above: Order Comment: Speci men Type: BLOOD SPECIMENOrdering Facility: [facility] Address: [address] [place] [address] Performed By: #### H STNT, 68623-0, 45483-0, 37985-4, 6-3 ####[facility] LABORATORYCLIA [id number] [place] [address] [place] [facility] CO2 [Moles/Vol] 23 mmol/L Normal 22-30 [facility] Comment on above: Order Comment: Speci men Type: BLOOD SPECIMENOrdering Facility: [facility] Address: [address] [place] [address] Performed By: #### H STNT, 60766-9, 10859-4, 60218-1, 3015-3 ####[facility] LABORATORYCLIA [id number] [address] STATES OF [facility] Creatinine [Mass/Vol] 0.87 mg/dL Normal 0.58-0.96 [facility] Comment on above: Order Comment: Speci men Type: BLOOD SPECIMENOrdering Facility: [facility] Address: [address] [place] [address] Performed By: #### H STNT, 39227-1, 56294-3, 31778-3, 3 ####[facility]ORATORYCLIA [id number] [address] eGFRcr SerPlBld CKD-EPI 2020 64 mL/min/1.73m??? Normal >=60 [facility] Comment on above: Order Comment: Speci men Type: BLOOD SPECIMENOrdering Facility: [facility] Address: [address] [place] [address] Result Comment: Radha mated Glomerular Filtration Rate [...] actual GFR. Performed By: #### H STNT, 86256-5, 87018-0, 31129-9, 3016-3 ####[facility] LABORATORYCLIA [id number] [place] [address] [place] Glucose [Mass/Vol] 95 mg/dL Normal 74-99 [facility] Comment on above: Order Comment: Vita men Type: BLOOD SPECIMENOrdering Facility: [facility] Address: [address] [place] [address] Result Comment: The Citizen Of The [place] Diabetes Association (ADA) provides guidance for cutoff [...] Standards of Medical Care in Diabetes 2016, Citizen Of The [place] Diabetes Association. Diabetes Care. 2016.39(Suppl 1). Performed By: #### H STNT, 49339-0, 39289-5, 78799-4, 3 ####[facility] LABORATORYCLIA [id number] [place] [id number] [place] Potassium [Moles/Vol] 5.1 mmol/L Normal 3.7-5.1 [facility] Comment on above: Order Comment: Vita florez Type: BLOOD SPECIMENOrdering Facility: [facility] Address: [address] [place] [address] Performed By: #### H STNT, 44046-7, 38664-6, 79665-9, 3015-3 ####[facility] LABORATORYCLIA [id number] [place] [id number] [place] Sodium [Moles/Vol] 136 mmol/L Normal 136-144 [facility] Comment on above: Order Comment: Vita florez Type: BLOOD SPECIMENOrdering Facility: [facility] Address: [address] [place] [address] Performed By: #### H STNT, 17691-9, 27770-9, 09673-2, 3015-3 ####[facility] LABORATORYCLIA [id number] [place] [address] [place] Urea nitrogen [Mass/Vol] 24 mg/dL High - [facility] Comment on above: Order Comment: Speci men Type: BLOOD SPECIMENOrdering Facility: [facility] Address: [address] [place] [address] Performed By: #### H STNT, 06221-2, 07768-9, 44215-9, 3015-3 ####[facility] LABORATORYCLIA [id number] [place] [address] [place] CBC W Auto Differential pane l (Bld)on 12-24-2024 Basophils (Bld) [#/Vol] 0.09 10*3/uL Normal <0.11 [facility] Comment on above: Order Comment: Speci men Type: BLOOD SPECIMENOrdering Facility: [facility] Address: [address] [place] [address] Performed By: #### 5 7021-8 ####[facility] LABORATORYCLIA [id number] [place] [address] [place] Basophils/100 WBC (Bld) 0.9 % Normal [facility] Comment on above: Order Comment: Speci men Type: BLOOD SPECIMENOrdering Facility: [facility] Address: [address] [place] [address] Performed By: #### 5 7021-8 ####[facility] LABORATORYCLIA [id number] [place] [address] [place] Differential cell count method Nom (Bld) Auto Normal [facility] Comment on above: Order Comment: Speci men Type: BLOOD SPECIMENOrdering Facility: [facility] Address: [address] [place] [address] Performed By: #### 5 7021-8 ####[facility] LABORATORYCLIA [id number] [place] [address] [place] Eosinophils (Bld) [#/Vol] 0.04 10*3/uL Normal <0.46 [facility] Comment on above: Order Comment: Speci men Type: BLOOD SPECIMENOrdering Facility: [facility] Address: [address] [place] [address] Performed By: #### 5 7021-8 ####[facility] LABORATORYCLIA [id number] [place] [address] [place] Eosinophils/100 WBC (Bld) 0.4 % Normal [facility] Comment on above: Order Comment: Speci men Type: BLOOD SPECIMENOrdering Facility: [facility] Address: [address] [place] [address] Performed By: #### 5 7021-8 ####[facility] LABORATORYCLIA [id number] [place] [address] [place] Erythrocyte distribution width (RBC) [Ratio] 16.1 % High 11.5-15.0 [facility] Comment on above: Order Comment: Speci men Type: BLOOD SPECIMENOrdering Facility: [facility] Address: [address] [place] [address] Performed By: #### 5 7021-8 ####[facility] LABORATORYCLIA [id number] [place] [address] [place] Hematocrit (Bld) [Volume fraction] 42.0 % Normal 36.0-46.0 [facility] Comment on above: Order Comment: Speci men Type: BLOOD SPECIMENOrdering Facility: [facility] Address: [address] [place] [address] Performed By: #### 5 7021-8 ####[facility] LABORATORYCLIA [id number] [place] [address] [place] Hemoglobin (Bld) [Mass/Vol] 14.0 g/dL Normal 11.5-15.5 [facility] Comment on above: Order Comment: Speci men Type: BLOOD SPECIMENOrdering Facility: [facility] Address: [address] [place] [address] Performed By: #### 5 7021-8 ####[facility] LABORATORYCLIA [id number] [place] [address] [place] Immature granulocytes (Bld) [#/Vol] 0.04 10*3/uL Normal <0.10 [facility] Comment on above: Order Comment: Speci men Type: BLOOD SPECIMENOrdering Facility: [facility] Address: [address] [place] [address] Performed By: #### 5 7021-8 ####[facility] LABORATORYCLIA [id number] [address] Immature granulocytes/100 WBC (Bld) 0.4 % Normal [facility] Comment on above: Order Comment: Speci men Type: BLOOD SPECIMENOrdering Facility: [facility] Address: [address] [place] [address] Performed By: #### 5 7021-8 ####[facility] LABORATORYCLIA [id number] [address] [place] Lymphocytes (Bld) [#/Vol] 1.01 10*3/uL Normal 1.00-4.00 [facility] Comment on above: Order Comment: Speci men Type: BLOOD SPECIMENOrdering Facility: [facility] Address: [address] [place] [address] Performed By: #### 5 7021-8 ####[facility] LABORATORYCLIA [id number] [address] Lymphocytes/100 WBC (Bld) 10.4 % Normal [facility] Comment on above: Order Comment: Speci men Type: BLOOD SPECIMENOrdering Facility: [facility] Address: [address] [place] [address] Performed By: #### 5 7021-8 ####[facility] LABORATORYCLIA [id number] [address] [place] MCH (RBC) [Entitic mass] 30.0 pg Normal 26.0-34.0 [facility] Comment on above: Order Comment: Speci men Type: BLOOD SPECIMENOrdering Facility: [facility] Address: [address] [place] [address] Performed By: #### 5 7021-8 ####[facility] LABORATORYCLIA [id number] [address] MCHC (RBC) [Mass/Vol] 33.3 g/dL Normal 30.5-36.0 [facility] Comment on above: Order Comment: Speci men Type: BLOOD SPECIMENOrdering Facility: [facility] Address: [address] [place] [address] Performed By: #### 5 7021-8 ####[facility] LABORATORYCLIA [id number] [address] [place] MCV (RBC) [Entitic vol] 90.1 fL Normal 80.0-100.0 [facility] Comment on above: Order Comment: Speci men Type: BLOOD SPECIMENOrdering Facility: [facility] Address: [address] [place] [address] Performed By: #### 5 7021-8 ####[facility] LABORATORYCLIA [id number] [place] [address] [place] Monocytes (Bld) [#/Vol] 0.81 10*3/uL Normal <0.87 [facility] Comment on above: Order Comment: Speci men Type: BLOOD SPECIMENOrdering Facility: [facility] Address: [address] [place] [address] Performed By: #### 5 7021-8 ####[facility] LABORATORYCLIA [id number] [address] [place] Monocytes/100 WBC (Bld) 8.3 % Normal [facility] Comment on above: Order Comment: Speci men Type: BLOOD SPECIMENOrdering Facility: [facility] Address: [address] [place] [address] Performed By: #### 5 7021-8 ####[facility] LABORATORYCLIA [id number] [place] [address] [place] Neutrophils (Bld) [#/Vol] 7.72 10*3/uL High 1.45-7.50 [facility] Comment on above: Order Comment: Speci men Type: BLOOD SPECIMENOrdering Facility: [facility] Address: [address] [place] [address] Performed By: #### 5 7021-8 ####[facility] LABORATORYCLIA [id number] [address] [place] Neutrophils/100 WBC (Bld) 79.6 % Normal [facility] Comment on above: Order Comment: Speci men Type: BLOOD SPECIMENOrdering Facility: [facility] Address: [address] [place] [address] Performed By: #### 5 7021-8 ####[facility] LABORATORYCLIA [id number] [address] [place] Nucleated RBC (Bld) [#/Vol] 10*3/uL Normal <0.01 [facility] Comment on above: Order Comment: Speci men Type: BLOOD SPECIMENOrdering Facility: [facility] Address: [address] [place] [address] Performed By: #### 5 7021-8 ####[facility] LABORATORYCLIA [id number] [address] [place] Nucleated RBC/100 WBC (Bld) [Ratio] 0.0 /100 WBC Normal [facility] Comment on above: Order Comment: Speci men Type: BLOOD SPECIMENOrdering Facility: [facility] Address: [address] [place] [address] Performed By: #### 5 7021-8 ####[facility] LABORATORYCLIA [id number] [place] [address] [place] Platelet mean volume (Bld) [Entitic vol] 10.4 fL Normal 9.0-12.7 [facility] Comment on above: Order Comment: Speci men Type: BLOOD SPECIMENOrdering Facility: [facility] Address: [address] [place] [address] Performed By: #### 5 7021-8 ####[facility] LABORATORYCLIA [id number] [place] [address] [place] [facility] [place] Platelets (Bld) [#/Vol] 386 10*3/uL Normal 150-400 [facility] Comment on above: Order Comment: Speci men Type: BLOOD SPECIMENOrdering Facility: [facility] Address: [address] [place] [address] Performed By: #### 5 7021-8 ####[facility] LABORATORYCLIA [id number] [place] [address] [place] RBC (Bld) [#/Vol] 4.66 10*6/uL Normal 3.90-5.20 [facility] Comment on above: Order Comment: Speci men Type: BLOOD SPECIMENOrdering Facility: [facility] Address: [address] [place] [id number] Performed By: #### 5 7021-8 ####[facility] LABORATORYCLIA [id number] [address] WBC (Bld) [#/Vol] 9.71 10*3/uL Normal 3.70-11.00 [facility] Comment on above: Order Comment: Speci men Type: BLOOD SPECIMENOrdering Facility: [facility] Address: [address] [place], [place] [address] Performed By: #### 5 7021-8 ####[facility] LABORATORYCLIA [id number] [address] ECG COMPLETEon 12-24-2024 ECG COMPLETE Ventricular Rate : 9 5 BPM Atrial Rate : 95 BPM P-R Interval : 162 ms QRS Duration : 138 ms Q-T Interval : 396 ms QTC Calculation(Bazett) : 497 ms Calculated P [place] : -5 degrees Calculated R [place] : -33 degrees Calculated T [place] : 147 degrees NORMAL SINUS RHYTHM LEFT AXIS DEVIATION LEFT VENTRICULAR HYPERTROPHY WITH QRS WIDENING AND REPOLARIZATION ABNORMALITY ( R in aVL , Db product ) CANNOT RULE OUT SEPTAL INFARCT , AGE UNDETERMINED ABNORMAL ECG NO PREVIOUS ECGS AVAILABLE Confirmed by ROJAS MATTHEWS MD ([id number]) on 12/25/2024 5:11:53 PM NAME : NA GOOD PID : [id number] : 1935 Gender : Female Race : ORD : [id number] Procedure Date : Dec 24 2024 19:25:38 Edit Date : Dec 25 2024 17:11:57 Diagnosis: NORMAL SINUS RHYTHM LEFT AXIS DEVIATION LEFT VENTRICULAR HYPERTROPHY WITH QRS WIDENING AND REPOLARIZATION ABNORMALITY ( R in aVL , Db product ) CANNOT RULE OUT SEPTAL INFARCT , AGE UNDETERMINED ABNORMAL ECG NO PREVIOUS ECGS AVAILABLE Confirmed by ROJAS MATTHEWS MD ([id number]) on 12/25/2024 5:11:53 PM Test Reason : Shortness of Breath Location : 5 : 3S 0311 Overread By : ROJAS MATTHEWS MD Edited By : ROJAS MATTHEWS MD Referred By : , Acquired by : [id number], Normal [facility] ED PROV NOTEon 12-24-2024 ED PROV NOTE HNO ID: [id number] Author: OSCAR LIZARRAGA DO Service: Emergency Medicine [...] by: EMS (more content not included)... Normal [facility] Gas and Carbon monoxide pane l (BldV)on 12-24-2024 Base excess Calc (BldV) [Moles/Vol] 1 mmol/L Normal 0-2 [facility] Comment on above: Order Comment: Vita florez Type: BLOOD SPECIMEN [facility] Address: [address] [place] [address] Performed By: #### 2 4321-2 #### [facility] CLIA [id number] [address] [place] [address] [place] Calcium.ionized (Bld) [Mass/Vol] 1.17 mmol/L Normal 1.08-1.30 [facility] Comment on above: Order Comment: Vita florez Type: BLOOD SPECIMEN [facility] Address: [address] [place] [address] Performed By: #### 2 4321-2 #### [facility] CLIA [id number] [address] [place] Carboxyhemoglobin (BldV) [Mass fraction] 1.3 % Normal 0.0-2.0 [facility] Comment on above: Order Comment: Vita florez Type: BLOOD SPECIMEN [facility] Address: [address] [place] [address] Result Comment: Carb oxyhemoglobin Reference Range for Smokers: 2.0-8.0% Performed By: #### 2 4321-2 #### [facility] CLIA [id number] [address] [place] CO2 (BldV) [Partial pressure] 40 mm[Hg] Low 42-55 [facility] Comment on above: Order Comment: Vita florez Type: BLOOD SPECIMEN [facility] Address: [address] [place] [address] Performed By: #### 2 4321-2 #### [facility] CLIA [id number] [address] [place] CO2 adjusted to patient's actual temperature (BldV) [Partial pressure] Normal [facility] Comment on above: Order Comment: Speci men Type: BLOOD SPECIMEN [facility] Address: [address] [place] [address] Performed By: #### 2 4321-2 #### [facility] CLIA [id number] [address] [place] [address] [place] HCO3 (Bld) [Moles/Vol] 25 mmol/L Normal 24-28 [facility] Comment on above: Order Comment: Speci men Type: BLOOD SPECIMEN [facility] Address: [address] [place] [address] Performed By: #### 2 4321-2 #### [facility] CLIA [id number] [address] [place] Hemoglobin (Bld) [Mass/Vol] 13.8 g/dL Normal 11.5-15.5 [facility] Comment on above: Order Comment: Speci men Type: BLOOD SPECIMEN [facility] Address: [address] [place] [address] Performed By: #### 2 4321-2 #### [facility] CLIA [id number] [address] [place] Lactate [Moles/Vol] 2.2 mmol/L Normal 0.5-2.2 [facility] Comment on above: Order Comment: Speci men Type: BLOOD SPECIMEN [facility] Address: [address] [place] [address] Performed By: #### 2 4321-2 #### [facility] CLIA [id number] [address] [place] Methemoglobin (Bld) [Mass fraction] % Normal 0.0-1.5 [facility] Comment on above: Order Comment: Speci men Type: BLOOD SPECIMEN [facility] Address: [address] [place] [address] Performed By: #### 2 4321-2 #### [facility] CLIA [id number] [address] O2 THERAPY RA=Room Air [facility] Comment on above: Order Comment: Speci men Type: BLOOD SPECIMEN [facility] Address: [address] [place] [address] Performed By: #### 2 4321-2 #### [facility] CLIA [id number] [address] [place] Oxygen (BldV) [Partial pressure] mm[Hg] Low 35-45 [facility] Comment on above: Order Comment: Speci men Type: BLOOD SPECIMEN [facility] Address: [address] [place] [address] Performed By: #### 2 4321-2 #### [facility] CLIA [id number] [address] Oxygen adjusted to patient's actual temperature (BldV) [Partial pressure] [facility] Comment on above: Order Comment: Speci men Type: BLOOD SPECIMEN [facility] Address: [address] [place] [address] Performed By: #### 2 4321-2 #### [facility] CLIA [id number] [address] Oxygen saturation in Venous blood 53 % Low 60-85 [facility] Comment on above: Order Comment: Speci men Type: BLOOD SPECIMEN [facility] Address: [address] [place] [address] Performed By: #### 2 4321-2 #### [facility] CLIA [id number] [address] [place] [address] [place] Oxyhemoglobin (BldV) [Mass fraction] 52 % Low 60-85 [facility] Comment on above: Order Comment: Speci men Type: BLOOD SPECIMEN [facility] Address: [address] [place] [address] Performed By: #### 2 4321-2 #### [facility] CLIA [id number] [address] [place] [address] [place] pH (BldV) 7.41 [pH] Normal 7.32-7.42 [facility] Comment on above: Order Comment: Speci men Type: BLOOD SPECIMEN [facility] Address: [address] [place] [address] Performed By: #### 2 4321-2 #### [facility] CLIA [id number] [address] [place] [address] [place] pH adjusted to patient's actual temperature (BldV) Normal [facility] Comment on above: Order Comment: Speci men Type: BLOOD SPECIMEN [facility] Address: [address] [place] [address] Performed By: #### 2 4321-2 #### [facility] CLIA [id number] [address] [place] [address] [place] Potassium [Moles/Vol] 5.4 mmol/L High 3.5-5.0 [facility] Comment on above: Order Comment: Speci men Type: BLOOD SPECIMEN [facility] Address: [address] [place] [address] Performed By: #### 2 4321-2 #### [facility] CLIA [id number] [address] [place] [address] [place] HIGH SENSITIVITY TROPONIN To n 12-24-2024 Troponin T.cardiac High sensitivity method [Mass/Vol] 33 ng/L High <12 [facility] Comment on above: Order Comment: Speci men Type: BLOOD SPECIMENOrdering Facility: [facility] Address: [address] [place] [address] Performed By: #### H STNT, 90230-1, 95247-2, 67991-7, 3016-3 ####[facility] LABORATORYCLIA [id number] [place] [address] [place] Magnesium SerPl-mCncon 12-24 Magnesium [Mass/Vol] 2.3 mg/dL Normal 1.7-2.3 [facility] Comment on above: Order Comment: Speci men Type: BLOOD SPECIMENOrdering Facility: [facility] Address: [address] [place] [address] Performed By: #### H STNT, 79737-1, 06436-7, 91326-7, 3016-3 ####[facility] LABORATORYCLIA [id number] [address] NT-proBNP SerPl-mCncon 12-24 Natriuretic peptide.B prohormone N-Terminal [Mass/Vol] 04937 pg/mL High <450 [facility] Comment on above: Order Comment: Speci men Type: BLOOD SPECIMENOrdering Facility: [facility] Address: [address] [place] [address] Performed By: #### H STNT, 26448-3, 12037-2, 04766-3, 3016-3 ####[facility] LABORATORYCLIA [id number] [address] TSH SerPl-aCncon 12-24-2024 TSH Qn 0.465 m[IU]/L Normal 0.270-4.200 [facility] [facility] Comment on above: Order Comment: Speci men Type: BLOOD SPECIMENOrdering Facility: [facility] Address: [address] [place] [address] Performed By: #### H STNT, 48346-8, 12635-0, 01234-6, 6-3 ####[facility] LABORATORYCLIA [id number] [address] XR CHEST 2V FRONTAL/LATon XR CHEST [...] pulmonary edema. Superimposed infection cannot be excluded. Race Starter: KONSTANTIN Transcribe Date/Time: Dec 24 2024 1:15P Dictated by : ROXANE CRUZ MD This examination was interpreted and the report reviewed and electronically signed by: ROXANE CRUZ MD on Dec 24 2024 1:19PM EST [id number] Normal [facility] CBC-Complete Blood Cnt No Di ffon 12-11-2024 HCT Normal 37-47 [facility] Comment on above: Order Comment: 546.1 Result Comment: LABS WERE DONE 12/09/24 DOES NOT NEED REPEATED PER NURSE Performed By: #### L 500.4050, L100.0500 #### [facility] [address] [place], [address] HGB Normal 12.0-15.0 [facility] Comment on above: Order Comment: 546.1 Result Comment: LABS WERE DONE 12/09/24 DOES NOT NEED REPEATED PER NURSE Performed By: #### L 500.4050, L100.0500 #### [facility] [address] [place], [address] MCH Normal 27.0-32.0 [facility] Comment on above: Order Comment: 546.1 Result Comment: LABS WERE DONE 12/09/24 DOES NOT NEED REPEATED PER NURSE Performed By: #### L 500.4050, L100.0500 #### [facility] [address] [place], [address] MCHC Normal 32-36 [facility] Comment on above: Order Comment: 546.1 Result Comment: LABS WERE DONE 12/09/24 DOES NOT NEED REPEATED PER NURSE Performed By: #### L 500.4050, L100.0500 #### [facility] [address] [place], [address] MCV Normal 81-99 [facility] Comment on above: Order Comment: 546.1 Result Comment: LABS WERE DONE 12/09/24 DOES NOT NEED REPEATED PER NURSE Performed By: #### L 500.4050, L100.0500 #### [facility] [address] [place], [address] PLT Normal 150-450 [facility] Comment on above: Order Comment: 546.1 Result Comment: LABS WERE DONE 12/09/24 DOES NOT NEED REPEATED PER NURSE Performed By: #### L 500.4050, L100.0500 #### [facility] [address] [place], [address] RBC Normal 4.2-5.4 [facility] Comment on above: Order Comment: 546.1 Result Comment: LABS WERE DONE 12/09/24 DOES NOT NEED REPEATED PER NURSE Performed By: #### L 500.4050, L100.0500 #### [facility] [address] [place], [address] RDW CV Normal 11.6-14.6 [facility] Comment on above: Order Comment: 546.1 Result Comment: LABS WERE DONE 12/09/24 DOES NOT NEED REPEATED PER NURSE Performed By: #### L 500.4050, L100.0500 #### [facility] [address] [place], [address] RDW SD Normal 35.1-43.9 [facility] Comment on above: Order Comment: 546.1 Result Comment: LABS WERE DONE 12/09/24 DOES NOT NEED REPEATED PER NURSE Performed By: #### L 500.4050, L100.0500 #### [facility] [address] [place], [address] WBC Normal 4.4-11.0 [facility] Comment on above: Order Comment: 546.1 Result Comment: LABS WERE DONE 12/09/24 DOES NOT NEED REPEATED PER NURSE Performed By: #### L 500.4050, L100.0500 #### [facility] [address] [place], [address] Comprehensive Metabolic Prof jalen 12-11-2024 ALB Normal 3.4-4.8 [facility] Comment on above: Order Comment: 546.1 Result Comment: LABS WERE DONE 12/09/24 DOES NOT NEED REPEATED PER NURSE Performed By: #### L 500.4050, L100.0500 #### [facility] [address] [place], [address] ALK PHOS Normal 35-104 [facility] Comment on above: Order Comment: 546.1 Result Comment: LABS WERE DONE 12/09/24 DOES NOT NEED REPEATED PER NURSE Performed By: #### L 500.4050, L100.0500 #### [facility] [address] [place], [address] ALT Normal <=34 [facility] Comment on above: Order Comment: 546.1 Result Comment: LABS WERE DONE 12/09/24 DOES NOT NEED REPEATED PER NURSE Performed By: #### L 500.4050, L100.0500 #### [facility] [address] [place], [address] AST Normal <=31 [facility] Comment on above: Order Comment: 546.1 Result Comment: LABS WERE DONE 12/09/24 DOES NOT NEED REPEATED PER NURSE Performed By: #### L 500.4050, L100.0500 #### [facility] [address] [place], [address] BUN Normal 4-19 [facility] Comment on above: Order Comment: 546.1 Result Comment: LABS WERE DONE 12/09/24 DOES NOT NEED REPEATED PER NURSE Performed By: #### L 500.4050, L100.0500 #### [facility] [address] [place], [address] BUN/CRE Normal 10-20 [facility] Comment on above: Order Comment: 546.1 Result Comment: LABS WERE DONE 12/09/24 DOES NOT NEED REPEATED PER NURSE Performed By: #### L 500.4050, L100.0500 #### [facility] [address] [place], [address] Calcium Normal 7.6-11.0 [facility] Comment on above: Order Comment: 546.1 Result Comment: LABS WERE DONE 12/09/24 DOES NOT NEED REPEATED PER NURSE Performed By: #### L 500.4050, L100.0500 #### [facility] [address] [place], [address] CL Normal 98-108 [facility] Comment on above: Order Comment: 546.1 Result Comment: LABS WERE DONE 12/09/24 DOES NOT NEED REPEATED PER NURSE Performed By: #### L 500.4050, L100.0500 #### [facility] [address] [place], [address] CO2 Normal 21.0-32.0 [facility] Comment on above: Order Comment: 546.1 Result Comment: LABS WERE DONE 12/09/24 DOES NOT NEED REPEATED PER NURSE Performed By: #### L 500.4050, L100.0500 #### [facility] [address] [place], [address] CREAT,SERUM Normal 0.70-1.20 [facility] Comment on above: Order Comment: 546.1 Result Comment: LABS WERE DONE 12/09/24 DOES NOT NEED REPEATED PER NURSE Performed By: #### L 500.4050, L100.0500 #### [facility] [address] [place], [address] eGFR Normal >60 [facility] Comment on above: Order Comment: 546.1 Result Comment: LABS WERE DONE 12/09/24 DOES NOT NEED REPEATED PER NURSE Performed By: #### L 500.4050, L100.0500 #### [facility] [address] [place], [address] GAP Normal 5-15 [facility] Comment on above: Order Comment: 546.1 Result Comment: LABS WERE DONE 12/09/24 DOES NOT NEED REPEATED PER NURSE Performed By: #### L 500.4050, L100.0500 #### [facility] [address] [place], [address] GLU Normal 70-99 [facility] Comment on above: Order Comment: 546.1 Result Comment: LABS WERE DONE 12/09/24 DOES NOT NEED REPEATED PER NURSE Performed By: #### L 500.4050, L100.0500 #### [facility] [address] [place], [address] Potassium Normal 3.3-5.1 [facility] Comment on above: Order Comment: 546.1 Result Comment: LABS WERE DONE 12/09/24 DOES NOT NEED REPEATED PER NURSE Performed By: #### L 500.4050, L100.0500 #### [facility] [address] [place], [address] T BILI Normal 0.00-1.30 [facility] Comment on above: Order Comment: 546.1 Result Comment: LABS WERE DONE 12/09/24 DOES NOT NEED REPEATED PER NURSE Performed By: #### L 500.4050, L100.0500 #### [facility] [address] [place], [address] T PROT Normal 5.9-8.4 [facility] Comment on above: Order Comment: 546.1 Result Comment: LABS WERE DONE 12/09/24 DOES NOT NEED REPEATED PER NURSE Performed By: #### L 500.4050, L100.0500 #### [facility] [address] [place], [address] Comprehensive Metabolic Profil Normal 133-145 [facility] Comment on above: Order Comment: 546.1 Result Comment: LABS WERE DONE 12/09/24 DOES NOT NEED REPEATED PER NURSE Performed By: #### L 500.4050, L100.0500 #### [facility] [address] [place], [address] Basic Metabolic Profile (BMP )on 12-09-2024 BUN/CRE 21.8 RATIO High 10-20 [facility] Comment on above: Order Comment: 546.1 Performed By: #### L 500.2500, L100.0500 #### [facility] [address] [place], [address] Calcium [Mass/Vol] 8.8 mg/dL Normal 7.6-11.0 [facility] Comment on above: Order Comment: 546.1 Performed By: #### L 500.2500, L100.0500 #### [facility] [address] [place], [address] Chloride [Moles/Vol] 101 mmol/L Normal 98-108 [facility] Comment on above: Order Comment: 546.1 Performed By: #### L 500.2500, L100.0500 #### [facility] [address] [place], [address] CO2 [Moles/Vol] 23.2 mmol/L Normal 21.0-32.0 [facility] Comment on above: Order Comment: 546.1 Performed By: #### L 500.2500, L100.0500 #### [facility] [address] [place], [address] Creatinine [Mass/Vol] 0.86 mg/dL Normal 0.70-1.20 [facility] Comment on above: Order Comment: 546.1 Performed By: #### L 500.2500, L100.0500 #### [facility] [address] [place], [address] GAP 11 Normal 5-15 [facility] Comment on above: Order Comment: 546.1 Performed By: #### L 500.2500, L100.0500 #### [facility] [address] [place], [address] GFR/1.73 sq M.predicted among non-blacks MDRD (S/P/Bld) [Vol rate/Area] 65 mL/min/{1.73_m2} Normal >60 [facility] Comment on above: Order Comment: 546.1 Result Comment: mL/m in/1.73m2 CKD-EPI Creatinine Equation (2020) Performed By: #### L 500.2500, L100.0500 #### [facility] [address] [place], [address] Glucose [Mass/Vol] 78 mg/dL Normal 70-99 [facility] Comment on above: Order Comment: 546.1 Performed By: #### L 500.2500, L100.0500 #### [facility] [address] [place], [address] Potassium [Moles/Vol] 4.3 mmol/L Normal 3.3-5.1 [facility] Comment on above: Order Comment: 546.1 Performed By: #### L 500.2500, L100.0500 #### [facility] [address] [place], [address] Sodium [Moles/Vol] 135 mmol/L Normal 133-145 [facility] Comment on above: Order Comment: 546.1 Performed By: #### L 500.2500, L100.0500 #### [facility] [address] [place], [address] Urea nitrogen [Mass/Vol] 19 mg/dL Normal 4-19 [facility] Comment on above: Order Comment: 546.1 Performed By: #### L 500.2500, L100.0500 #### [facility] [address] [place], [address] CBC-Complete Blood Cnt No Di ffon 12-09-2024 Erythrocyte distribution width (RBC) [Ratio] 16.4 % High 11.6-14.6 [facility] Comment on above: Order Comment: 546.1 Performed By: #### L 500.2500, L100.0500 #### [facility] [address] [place], [address] Hematocrit (Bld) [Volume fraction] 37.6 % Normal 37-47 [facility] Comment on above: Order Comment: 546.1 Performed By: #### L 500.2500, L100.0500 #### [facility] [address] [place], [address] Hemoglobin (Bld) [Mass/Vol] 12.5 g/dL Normal 12.0-15.0 [facility] Comment on above: Order Comment: 546.1 Performed By: #### L 500.2500, L100.0500 #### [facility] [address] [place], [address] MCH (RBC) [Entitic mass] 29.8 pg Normal 27.0-32.0 [facility] Comment on above: Order Comment: 546.1 Performed By: #### L 500.2500, L100.0500 #### [facility] [address] [place], [address] MCHC (RBC) [Mass/Vol] 33.2 g/dL Normal 32-36 [facility] Comment on above: Order Comment: 546.1 Performed By: #### L 500.2500, L100.0500 #### [facility] [address] [place], [address] MCV (RBC) [Entitic vol] 89.5 fL Normal 81-99 [facility] Comment on above: Order Comment: 546.1 Performed By: #### L 500.2500, L100.0500 #### [facility] [address] [place], [address] Platelet mean volume (Bld) [Entitic vol] 10.5 fL Normal 6.2-12.0 [facility] Comment on above: Order Comment: 546.1 Performed By: #### L 500.2500, L100.0500 #### [facility] [address] [place], [address] Platelets (Bld) [#/Vol] 345 10*3/uL Normal 150-450 [facility] Comment on above: Order Comment: 546.1 Performed By: #### L 500.2500, L100.0500 #### [facility] [address] [place], [address] RBC (Bld) [#/Vol] 4.20 10*6/uL Normal 4.2-5.4 [facility] Comment on above: Order Comment: 546.1 Performed By: #### L 500.2500, L100.0500 #### [facility] [address] [place], [address] RDW SD 53.6 fl High 35.1-43.9 [facility] Comment on above: Order Comment: 546.1 Performed By: #### L 500.2500, L100.0500 #### [facility] [address] [place], [address] WBC (Bld) [#/Vol] 9.3 10*3/uL Normal 4.4-11.0 [facility] Comment on above: Order Comment: 546.1 Performed By: #### L 500.2500, L100.0500 #### [facility] [address] [place], [address] CBC-Complete Blood Cnt No Di ffon 09-18-2024 Erythrocyte distribution width (RBC) [Ratio] 15.3 % High 11.6-14.6 [facility] Comment on above: Order Comment: 546 Performed By: #### L 501.9985, L500.4050, L500.4100, L506.1001, L100.0500 #### [facility] [address] [place], [address] Hematocrit (Bld) [Volume fraction] 42.2 % Normal 37-47 [facility] Comment on above: Order Comment: 546 Performed By: #### L 501.9985, L500.4050, L500.4100, L506.1001, L100.0500 #### [facility] [address], [address] Hemoglobin (Bld) [Mass/Vol] 13.9 g/dL Normal 12.0-15.0 [facility] Comment on above: Order Comment: 546 Performed By: #### L 501.9985, L500.4050, L500.4100, L506.1001, L100.0500 #### [facility] [address] [place], [address] MCH (RBC) [Entitic mass] 30.0 pg Normal 27.0-32.0 [facility] Comment on above: Order Comment: 546 Performed By: #### L 501.9985, L500.4050, L500.4100, L506.1001, L100.0500 #### [facility] [address] [place], [address] MCHC (RBC) [Mass/Vol] 32.9 g/dL Normal 32-36 [facility] Comment on above: Order Comment: 546 Performed By: #### L 501.9985, L500.4050, L500.4100, L506.1001, L100.0500 #### [facility] [address] [place], [address] MCV (RBC) [Entitic vol] 90.9 fL Normal 81-99 [facility] Comment on above: Order Comment: 546 Performed By: #### L 501.9985, L500.4050, L500.4100, L506.1001, L100.0500 #### [facility] [address] [place], [address] Platelet mean volume (Bld) [Entitic vol] 10.8 fL Normal 6.2-12.0 [facility] Comment on above: Order Comment: 546 Performed By: #### L 501.9985, L500.4050, L500.4100, L506.1001, L100.0500 #### [facility] [address] [place], [address] Platelets (Bld) [#/Vol] 337 10*3/uL Normal 150-450 [facility] Comment on above: Order Comment: 546 Performed By: #### L 501.9985, L500.4050, L500.4100, L506.1001, L100.0500 #### [facility] [address] [place], [address] RBC (Bld) [#/Vol] 4.64 10*6/uL Normal 4.2-5.4 [facility] Comment on above: Order Comment: 546 Performed By: #### L 501.9985, L500.4050, L500.4100, L506.1001, L100.0500 #### [facility] [address] [place], [address] RDW SD 50.5 fl High 35.1-43.9 [facility] Comment on above: Order Comment: 546 Performed By: #### L 501.9985, L500.4050, L500.4100, L506.1001, L100.0500 #### [facility] [address] [place], [address] WBC (Bld) [#/Vol] 9.6 10*3/uL Normal 4.4-11.0 [facility] Comment on above: Order Comment: 546 Performed By: #### L 501.9985, L500.4050, L500.4100, L506.1001, L100.0500 #### [facility] [address] [place], [address] Comprehensive Metabolic Prof [facility] 09-18-2024 Albumin [Mass/Vol] 3.4 g/dL Normal 3.4-4.8 [facility] Comment on above: Order Comment: 546 Performed By: #### L 501.9985, L500.4050, L500.4100, L506.1001, L100.0500 #### [facility] [address] [place], [address] Albumin/Globulin [Mass ratio] 1.4 {ratio} Normal 0.9-2.4 [facility] Comment on above: Order Comment: 546 Performed By: #### L 501.9985, L500.4050, L500.4100, L506.1001, L100.0500 #### [facility] [address] [place], [address] ALK PHOS 43 U/L Normal 35-104 [facility] Comment on above: Order Comment: 546 Performed By: #### L 501.9985, L500.4050, L500.4100, L506.1001, L100.0500 #### [facility] [address] [place], [address] ALT [Catalytic activity/Vol] 9 U/L Normal <=34 [facility] Comment on above: Order Comment: 546 Performed By: #### L 501.9985, L500.4050, L500.4100, L506.1001, L100.0500 #### [facility] [address] [place], [address] AST [Catalytic activity/Vol] 20 U/L Normal <=31 [facility] Comment on above: Order Comment: 546 Performed By: #### L 501.9985, L500.4050, L500.4100, L506.1001, L100.0500 #### [facility] [address] [place], [address] Bilirubin [Mass/Vol] 0.37 mg/dL Normal 0.00-1.30 [facility] Comment on above: Order Comment: 546 Performed By: #### L 501.9985, L500.4050, L500.4100, L506.1001, L100.0500 #### [facility] [address] [place], [address] BUN/CRE 27.9 RATIO High 10-20 [facility] Comment on above: Order Comment: 546 Performed By: #### L 501.9985, L500.4050, L500.4100, L506.1001, L100.0500 #### [facility] [address] [place], [address] Calcium [Mass/Vol] 8.8 mg/dL Normal 7.6-11.0 [facility] Comment on above: Order Comment: 546 Performed By: #### L 501.9985, L500.4050, L500.4100, L506.1001, L100.0500 #### [facility] [address] [place], [address] Chloride [Moles/Vol] 108 mmol/L Normal 98-108 [facility] Comment on above: Order Comment: 546 Performed By: #### L 501.9985, L500.4050, L500.4100, L506.1001, L100.0500 #### [facility] [address] [place], [address] CO2 [Moles/Vol] 23.5 mmol/L Normal 21.0-32.0 [facility] Comment on above: Order Comment: 546 Performed By: #### L 501.9985, L500.4050, L500.4100, L506.1001, L100.0500 #### [facility] [address] [place], [address] Creatinine [Mass/Vol] 0.82 mg/dL Normal 0.70-1.20 [facility] Comment on above: Order Comment: 546 Performed By: #### L 501.9985, L500.4050, L500.4100, L506.1001, L100.0500 #### [facility] [address] [place], [address] GAP 10 Normal 5-15 [facility] Comment on above: Order Comment: 546 Performed By: #### L 501.9985, L500.4050, L500.4100, L506.1001, L100.0500 #### [facility] [address] [place], [address] GFR/1.73 sq M.predicted among non-blacks MDRD (S/P/Bld) [Vol rate/Area] 69 mL/min/{1.73_m2} Normal >60 [facility] Comment on above: Order Comment: 546 Result Comment: mL/m in/1.73m2 CKD-EPI Creatinine Equation (2020) Performed By: #### L 501.9985, L500.4050, L500.4100, L506.1001, L100.0500 #### [facility] [address] [place], [address] Globulin (S) [Mass/Vol] 2.5 g/dL Normal 2.2-4.2 [facility] Comment on above: Order Comment: 546 Performed By: #### L 501.9985, L500.4050, L500.4100, L506.1001, L100.0500 #### [facility] [address] [place], [address] Glucose [Mass/Vol] 88 mg/dL Normal 70-99 [facility] Comment on above: Order Comment: 546 Performed By: #### L 501.9985, L500.4050, L500.4100, L506.1001, L100.0500 #### [facility] [address] [place], [address] Potassium [Moles/Vol] 4.1 mmol/L Normal 3.3-5.1 [facility] Comment on above: Order Comment: 546 Performed By: #### L 501.9985, L500.4050, L500.4100, L506.1001, L100.0500 #### [facility] [address] [place], [address] Sodium [Moles/Vol] 141 mmol/L Normal 133-145 [facility] Comment on above: Order Comment: 546 Performed By: #### L 501.9985, L500.4050, L500.4100, L506.1001, L100.0500 #### [facility] [address] [place], [address] T PROT 5.8 g/dL Low 5.9-8.4 [facility] Comment on above: Order Comment: 546 Performed By: #### L 501.9985, L500.4050, L500.4100, L506.1001, L100.0500 #### [facility] [address] [place], [address] Urea nitrogen [Mass/Vol] 23 mg/dL High 4-19 [facility] Comment on above: Order Comment: 546 Performed By: #### L 501.9985, L500.4050, L500.4100, L506.1001, L100.0500 #### [facility] [address] [place], [address] Hemoglobin A1con 09-18-2024 HbA1c (Bld) [Mass fraction] 5.5 % Normal <=5.6 [facility] Comment on above: Order Comment: 546 Result Comment: Norm al < 5.7 % Prediabetic 5.7 - 6.4 % Diabetic >or= 6.5 % Please note range changes. Performed By: #### L 501.9985, L500.4050, L500.4100, L506.1001, L100.0500 #### [facility] [address] [place], [address] Lipid Profileon 09-18-2024 CHOL:HDL 2.43 Normal [facility] Comment on above: Order Comment: 546 Performed By: #### L 501.9985, L500.4050, L500.4100, L506.1001, L100.0500 #### [facility] [address] [place], [address] Cholesterol [Mass/Vol] 136 mg/dL Normal <=200 [facility] Comment on above: Order Comment: 546 Result Comment: Chol esterol level, Desirable <200 mg/dL Borderline high cholesterol 200-239 mg/dL High cholesterol >=240 mg/dL Recommendations of the NCEP Adult Treatment Panel for the following risk-cutoff thresholds for the [place] population. Performed By: #### L 501.9985, L500.4050, L500.4100, L506.1001, L100.0500 #### [facility] [address] [place], [address] Cholesterol in HDL [Mass/Vol] 56 mg/dL Normal [facility] Comment on above: Order Comment: 546 Result Comment: Lyric onal Cholesterol Education Program (NCEP) guidelines: <40 mg/dL: Low HDL-cholesterol (major risk factor for CHD) >= 60 mg/dL: High HDL-cholesterol (negative risk factor for CHD) HDL-cholesterol is affected by a number of factors, e.g. smoking, exercise, hormones, sex and age. Performed By: #### L 501.9985, L500.4050, L500.4100, L506.1001, L100.0500 #### [facility] [address] [place], [address] Cholesterol in LDL [Mass/Vol] 67 mg/dL Normal [facility] Comment on above: Order Comment: 546 Result Comment: Bord zryxbw=429-581 mg/dL Higher Utts=129 mg/dL or greater Performed By: #### L 501.9985, L500.4050, L500.4100, L506.1001, L100.0500 #### [facility] [address] [place], [address] Cholesterol in VLDL [Mass/Vol] 14 mg/dL Normal 5-40 [facility] Comment on above: Order Comment: 546 Performed By: #### L 501.9985, L500.4050, L500.4100, L506.1001, L100.0500 #### [facility] [address] [place], [address] Triglyceride [Mass/Vol] 68 mg/dL Normal [facility] Comment on above: Order Comment: 546 Result Comment: The drugs N-Acetylcysteine and Metamizole may falsely depress this assay. Normal range: <150 mg/dL Borderline High: 150-199 mg/dL High: 200-499 mg/dL Very High: >500 mg/dL Performed By: #### L 501.9985, L500.4050, L500.4100, L506.1001, L100.0500 #### [facility] [address] [place], [address] Vitamin D,25 Hydroxyon 09-18 Vitamin D 25-OH 52.7 ng/mL Normal 30-100 [facility] Comment on above: Order Comment: 546 Result Comment: Alicia min D Status Deficiency: <20 ng/mL (50nmol/L) Insufficiency: 20-30 ng/mL (50-75 nmol/L) Sufficiency: 30-100 ng/mL (75-250 nmol/L) Toxicity: >100 ng/mL (>250 nmol/L) Performed By: #### L 501.9985, L500.4050, L500.4100, L506.1001, L100.0500 #### [facility] [address] [place], [address] US DOPPLER CAROTIDon 020 US DOPPLER CAROTID Patient Info Name: NA OGOD Age: 84 years : 1935 Gender: Female Exam Date: 02/03/2020 2:02 PM Site Location: [facility] Patient Status: Outpatient Bullet Lubricant Mixer: Tatyana Olmos, VILMA, RDMS (AB), RVT Referring Physician: RUBIN CHIRINOS ; Indications R09.89 - Other specified symptoms and signs involving the circulatory and respiratory systems Procedure Description 64785 Duplex examination using B-mode, color and spectral [...] Morris DO on 02/03/2020 03:27 PM Normal [facility] US DOPPLER CAROTID Patient Info Name: NA GOOD Age: 84 years : 1935 Gender: Female Exam Date: 02/03/2020 2:02 PM Site Location: [facility] Patient Status: Outpatient Bullet Lubricant Mixer: Tatyana Olmos, VILMA, RDMS (AB), RVT Referring Physician: RUBIN CHIRINOS ; Indications R09.89 - Other specified symptoms and signs involving the circulatory and respiratory systems Procedure Description 15618 Duplex examination using B-mode, color and spectral [...] SunFeb 03, 2020 3:27:40 PM EDT Normal [facility] Patient Info Name: NA GOOD Age: 84 years : 1935 Gender: Female Exam Date: 02/03/2020 2:02 PM Site Location: [facility] Patient Status: Outpatient Bullet Lubricant Mixer: Tatyana Olmos, VILMA, RDMS (AB), RVT Referring Physician: RUBIN CHIRINOS ; Indications R09.89 - Other specified symptoms and signs involving the circulatory and respiratory systems Procedure Description 15987 Duplex examination using B-mode, color and spectral [...] HAM Morris DO on 02/03/2020 03:27 PM [facility] Interface, Rad In Heartlab Xper Echopacs - 02/03/2020 3:27 PM EDT Patient Info Name: NA GOOD Age: 84 years : 1935 Gender: Female Exam Date: 02/03/2020 2:02 PM Site Location: [facility] Patient Status: Outpatient Bullet Lubricant Mixer: Tatyana Olmos, BS, RDMS (AB), RVT Referring Physician: RUBIN CHIRINOS ; Indications R09.89 - Other specified symptoms and signs involving the circulatory and respiratory systems Procedure Description [id number] Duplex examination using B-mode, color and spectral [...] HAM Morris DO on 02/03/2020 03:27 PM [facility] ECG 12-LEADon 01-13-2019 Atrial Rate [facility] P [place] [facility] P-R Interval [facility] Q-T Interval [facility] Q-T Interval (corrected) [facility] QRS Duration [facility] QTC Calculation (Bezet) [facility] R [place] [facility] T [place] [facility] Ventricular Rate [facility] ECG 12 Leadon 01-15-2018 Atrial Rate Invalid Interpretation Code [facility] P [place] Invalid Interpretation Code [facility] P-R Interval Invalid Interpretation Code [facility] Q-T Interval Invalid Interpretation Code [facility] Q-T Interval (corrected) Invalid Interpretation Code [facility] QRS Duration Invalid Interpretation Code [facility] QTC Calculation (Bezet) Invalid Interpretation Code [facility] R [place] Invalid Interpretation Code [facility] T [place] Invalid Interpretation Code [facility] Ventricular Rate Invalid Interpretation Code [facility] CBC w/o Diffon 12-19-2017 Erythrocyte distribution width Auto Ratio (RBC) 14.2 % Normal 10.0-14.4 [facility] Comment on above: Performed By: #### L IPID, CMET, TSH, CBCWOD ####Unless otherwise noted, all testing performed by [address] [phone]: [id number] Director: Alverto Fitzgerald M.D. Hematocrit Auto Volume Fraction (Bld) 44.2 % Normal 34.4-44.8 [facility] Comment on above: Performed By: #### L IPID, CMET, TSH, CBCWOD ####Unless otherwise noted, all testing performed by [address] [phone]: [id number] Director: Alverto Fitzgerald M.D. Hemoglobin mass conc (Bld) 14.6 g/dL Normal 11.6-15.4 [facility] Comment on above: Performed By: #### L IPID, CMET, TSH, CBCWOD ####Unless otherwise noted, all testing performed by [address] [phone]: [id number] Director: Alverto Fitzgerald M.D. MCH Auto Entitic mass (RBC) 29.4 pg Normal 27.9-33.9 [facility] Comment on above: Performed By: #### L IPID, CMET, TSH, CBCWOD ####Unless otherwise noted, all testing performed by [address] [phone]: [id number] Director: Alverto Fitzgerald M.D. MCHC Auto mass conc (RBC) 33.0 g/dL Low 33.1-35.1 [facility] Comment on above: Performed By: #### L IPID, CMET, TSH, CBCWOD ####Unless otherwise noted, all testing performed by [address] [phone]: [id number] Director: Alverto Fitzgerald M.D. MCV Auto Entitic volume (RBC) 89.1 fL Normal 82.6-98.9 [facility] Comment on above: Performed By: #### L IPID, CMET, TSH, CBCWOD ####Unless otherwise noted, all testing performed by [address] [phone]: [id number] Director: Alverto Fitzgerald M.D. Platelet mean volume Auto Entitic volume (Bld) 8.6 fL Normal 7.0-10.6 [facility] Comment on above: Performed By: #### L IPID, CMET, TSH, CBCWOD ####Unless otherwise noted, all testing performed by [address], [place] [phone]: [id number] Director: Alverto Fitzgerald M.D. Platelets Auto #/vol (Bld) 349 K/mcL Normal 162-402 [facility] Comment on above: Performed By: #### L IPID, CMET, TSH, CBCWOD ####Unless otherwise noted, all testing performed by [address] [phone]: [id number] Director: Alverto Fitzgerald M.D. RBC Auto #/vol (Bld) 4.96 M/mcL Normal 3.7-5.0 [facility] Comment on above: Performed By: #### L IPID, CMET, TSH, CBCWOD ####Unless otherwise noted, all testing performed by [address] [phone]: [id number] Director: Alverto Fitzgerald M.D. WBC Auto #/vol (Bld) 9.0 K/mcL Normal 3.4-10.6 [facility] Comment on above: Performed By: #### L IPID, CMET, TSH, CBCWOD ####Unless otherwise noted, all testing performed by [address] [phone]: [id number] Director: Alverto Fitzgerald M.D. Comprehensive Metabolic Pane [facility] 12-19-2017 Albumin mass conc 3.7 g/dL Normal 3.2-5.2 [facility] Comment on above: Performed By: #### L IPID, CMET, TSH, CBCWOD ####Unless otherwise noted, all testing performed by [address] [phone]: [id number] Director: Alverto Fitzgerald M.D. ALP enzyme act/vol 54 U/L Normal 40-150 [facility] Comment on above: Performed By: #### L IPID, CMET, TSH, CBCWOD ####Unless otherwise noted, all testing performed by [address] [phone]: [id number] Director: Alverto Fitzgerald M.D. ALT enzyme act/vol 15 U/L Normal 14-65 [facility] Comment on above: Result Comment: This test result might be falsely depressed or falsely elevated onsamples drawn from patients taking Sulfasalazine and Sulfapyridine.Venipuncture should occur prior to taking either of these drugs. Performed By: #### L IPID, CMET, TSH, CBCWOD ####Unless otherwise noted, all testing performed by [address] [phone]: [id number] Director: Alverto Fitzgerald M.D. AST enzyme act/vol 15 U/L Normal 0-45 [facility] Comment on above: Result Comment: This test result might be falsely depressed or falsely elevated onsamples drawn from patients taking Sulfasalazine and Sulfapyridine.Venipuncture should occur prior to taking either of these drugs. Performed By: #### L IPID, CMET, TSH, CBCWOD ####Unless otherwise noted, all testing performed by [address] [phone]: [id number] Director: Alverto Fitzgerald M.D. Bilirubin mass conc 0.5 mg/dL Normal 0.3-1.2 [facility] Comment on above: Performed By: #### L IPID, CMET, TSH, CBCWOD ####Unless otherwise noted, all testing performed by [address] [phone]: [id number] Director: Alverto Fitzgerald M.D. Calcium mass conc 8.9 mg/dL Normal 8.4-10.2 [facility] Comment on above: Performed By: #### L IPID, CMET, TSH, CBCWOD ####Unless otherwise noted, all testing performed by [address] [phone]: [id number] Director: Alverto Fitzgerald M.D. Chloride molar conc 106 mmol/L Normal 98-108 [facility] Comment on above: Performed By: #### L IPID, CMET, TSH, CBCWOD ####Unless otherwise noted, all testing performed by [address] [phone]: [id number] Director: Alverto Fitzgerald M.D. CO2 molar conc 29 mmol/L Normal 21-32 [facility] Comment on above: Performed By: #### L IPID, CMET, TSH, CBCWOD ####Unless otherwise noted, all testing performed by [address] [phone]: [id number] Director: Alverto Fitzgerald M.D. Creatinine mass conc 0.76 mg/dL Normal 0.60-1.20 [facility] Comment on above: Performed By: #### L IPID, CMET, TSH, CBCWOD ####Unless otherwise noted, all testing performed by [address], [place] [phone]: [id number] Director: Alverto Fitzgerald M.D. GFR/1.73 sq M predicted among blacks MDRD vol rate/area (S/P/Bld) mL/min/{1.73_m2} Normal [facility] Comment on above: Result Comment: Afri can Citizen Of [place] GFR Calc Performed By: #### L IPID, CMET, TSH, CBCWOD ####Unless otherwise noted, all testing performed by [address] [phone]: [id number] Director: Alverto Fitzgerald M.D. GFR/1.73 sq M predicted among non-blacks MDRD vol rate/area (S/P/Bld) mL/min/{1.73_m2} Normal [facility] Comment on above: Result Comment: [...] ####Unless otherwise noted, all testing performed by [address] [phone]: [id number] Director: Alverto Fitzgerald M.D. Glucose mass conc 84 mg/dL Normal 70-99 [facility] Comment on above: Result Comment: This test result might be falsely depressed or falsely elevated onsamples drawn from patients taking Sulfasalazine and Sulfapyridine.Venipuncture should occur prior to taking either of these drugs. Performed By: #### L IPID, CMET, TSH, CBCWOD ####Unless otherwise noted, all testing performed by [address] [phone]: [id number] Director: Alverto Fitzgerald M.D. Potassium molar conc 4.1 mmol/L Normal 3.5-5.1 [facility] Comment on above: Performed By: #### L IPID, CMET, TSH, CBCWOD ####Unless otherwise noted, all testing performed by [address] [phone]: [id number] Director: Alverto Fitzgerald M.D. Protein mass conc 7.2 g/dL Normal 6.0-8.0 [facility] Comment on above: Performed By: #### L IPID, CMET, TSH, CBCWOD ####Unless otherwise noted, all testing performed by [address] [phone]: [id number] Director: Alverto Fitzgerald M.D. Sodium molar conc 142 mmol/L Normal 135-145 [facility] Comment on above: Performed By: #### L IPID, CMET, TSH, CBCWOD ####Unless otherwise noted, all testing performed by [address] [phone]: [id number] Director: Alverto Fitzgerald M.D. Urea nitrogen mass conc 19 mg/dL Normal 8-25 [facility] Comment on above: Performed By: #### L IPID, CMET, TSH, CBCWOD ####Unless otherwise noted, all testing performed by [address] [phone]: [id number] Director: Alverto Fitzgerald M.D. Lipid Panelon 12-19-2017 Cholesterol in HDL mass conc 68 mg/dL High 40-59 [facility] Comment on above: Performed By: #### L IPID, CMET, TSH, CBCWOD ####Unless otherwise noted, all testing performed by [address] [phone]: [id number] Director: Alverto Fitzgerald M.D. Cholesterol in LDL mass conc 150 mg/dL Normal 10-150 [facility] Comment on above: Performed By: #### L IPID, CMET, TSH, CBCWOD ####Unless otherwise noted, all testing performed by [address] [phone]: [id number] Director: Alverto Fitzgerald M.D. Cholesterol in VLDL mass conc 24 mg/dL Normal 5-40 [facility] Comment on above: Performed By: #### L IPID, CMET, TSH, CBCWOD ####Unless otherwise noted, all testing performed by [address] [phone]: [id number] Director: Alverto Fitzgerald M.D. Cholesterol mass conc 243 mg/dL High 100-199 [facility] Comment on above: Performed By: #### L IPID, CMET, TSH, CBCWOD ####Unless otherwise noted, all testing performed by [address] [phone]: [id number] Director: Alverto Fitzgerald M.D. Cholesterol.total/Cho lesterol in HDL mass ratio 3.6 {ratio} Normal 3.2-5.0 [facility] Comment on above: Result Comment: Robert harley Coronary Heart Disease Risk Factor (CHDRF):Average risk= 4.41/2 Average risk= 3.32 times Average risk= 7.1 Performed By: #### L IPID, CMET, TSH, CBCWOD ####Unless otherwise noted, all testing performed by [address] [phone]: [id number] Director: Alverto Fitzgerald M.D. Triglyceride mass conc 121 mg/dL High 25-120 [facility] Comment on above: Performed By: #### L IPID, CMET, TSH, CBCWOD ####Unless otherwise noted, all testing performed by [address] [phone]: [id number] Director: Alverto Fitzgerald M.D. Microalbumin, Ur Random Pane epifanio 12-19-2017 Creatinine, Urine Random 124.00 mg/dL Normal [facility] Comment on above: Result Comment: No e stablished reference range. Performed By: #### He CHAU ####Unless otherwise noted, all testing performed by [address] [phone]: [id number] Director: Alverto Fitzgerald M.D. MIALB/Creatinine Ratio 9 Normal 0.0-25.0 [facility] Comment on above: Performed By: #### M KANDI ####Unless otherwise noted, all testing performed by [address] [phone]: [id number] Director: Alverto Fitzgerald M.D. Microalbumin, Urine Random 1.1 mg/dL Normal 0.0-1.8 [facility] Comment on above: Performed By: #### M IALBURR ####Unless otherwise noted, all testing performed by [address] [phone]: [id number] Director: Alverto Fitzgerald M.D. TSHon 12-19-2017 T4 free mass conc 1.1 ng/dL Normal 0.7-1.7 [facility] Comment on above: Result Comment: Samp les from patients routinely receiving high dose biotin therapy(100-300 mg/day) may show falsely increased results. Please correlateclinically. Performed By: #### L IPID, CMET, TSH, CBCWOD ####Unless otherwise noted, all testing performed by [address] [phone]: [id number] Director: Alverto Fitzgerald M.D. Thyrotropin Qn 0.22 uIU/mL Low 0.320-5.000 [facility] Comment on above: Result Comment: Samp les from patients routinely receiving high dose biotin therapy(100-300 mg/day) may show falsely decreased results. Please correlateclinically. Performed By: #### L IPID, CMET, TSH, CBCWOD ####Unless otherwise noted, all testing performed by [address] [phone]: [id number] Director: Alverto Fitzgerald M.D. CBC and Differentialon 12-19 Basophils 1.1 % Invalid Interpretation Code [facility] Basophils 0.1 K/mcL Invalid Interpretation Code 0 - 0.2 [facility] Eosinophils 0.3 K/mcL Invalid Interpretation Code 0 - 0.5 [facility] Erythrocytes (RBC) 4.79 M/mcL Invalid Interpretation Code 3.7 - 5.0 [facility] Hematocrit (HCT) 42.7 % Invalid Interpretation Code 34.4 - 44.8 % [facility] Hemoglobin (HGB) 14.1 g/dL Invalid Interpretation Code 11.6 - 15.4 g/dL [facility] Lymphocytes 2.4 K/mcL Invalid Interpretation Code 1.0 - 3.7 [facility] MCH 29.5 pg Invalid Interpretation Code 27.9 - 33.9 pg [facility] MCHC 33.1 g/dL Invalid Interpretation Code 33.1 - 35.1 g/dL [facility] MCV 89.2 fL Invalid Interpretation Code 82.6 - 98.9 [facility] Monocytes 0.6 K/mcL Invalid Interpretation Code 0.1 - 0.6 [facility] Neutrophils 4.4 K/mcL Invalid Interpretation Code 1.2 - 6.9 [facility] Platelet mean volume (PMV) 8.7 fL Invalid Interpretation Code 7.0 - 10.6 [facility] Platelets 278 K/mcL Invalid Interpretation Code 162 - 402 [facility] RDW-CA 14.3 % Invalid Interpretation Code 10 - 14.4 % [facility] Segmented Neut 56.5 % Invalid Interpretation Code [facility] T8 suppressor/100 cells 4.2 10*3/uL Invalid Interpretation Code [facility] T8 suppressor/100 cells 30.3 10*3/uL Invalid Interpretation Code [facility] T8 suppressor/100 cells 7.9 10*3/uL Invalid Interpretation Code [facility] WBC (Leukocytes) 7.8 K/mcL Invalid Interpretation Code 3.4 - 10.6 [facility] Comprehensive Metabolic Pane epifanio 12-19-2016 Alanine aminotransferase (ALT) 20 U/L Invalid Interpretation Code 14 - 65 U/L [facility] Albumin 3.6 g/dL Invalid Interpretation Code 3.2 - 5.2 g/dL [facility] Alkaline phosphatase (ALP) 39 U/L Low 40 - 150 U/L [facility] Aspartate aminotransferase (AST) 14 U/L Invalid Interpretation Code 0 - 45 U/L [facility] Calcium 9.4 mg/dL Invalid Interpretation Code 8.4 - 10.2 mg/dL [facility] Chloride 107 mmol/L Invalid Interpretation Code 98 - 108 mmol/L [facility] CO2 30 mmol/L Invalid Interpretation Code 21 - 32 mmol/L [facility] Creatinine 0.72 mg/dL Invalid Interpretation Code 0.6 - 1.2 mg/dL [facility] eGFR (black) mL/min/{1.73_m2} Invalid Interpretation Code ml/min/1.73s q.m [facility] eGFR (non-black) mL/min/{1.73_m2} Invalid Interpretation Code ml/min/1.73s q.m [facility] Glucose 86 mg/dL Invalid Interpretation Code 70 - 99 mg/dL [facility] Potassium 4.3 mmol/L Invalid Interpretation Code 3.5 - 5.1 mmol/L [facility] Protein 6.8 g/dL Invalid Interpretation Code 6 - 8 g/dL [facility] Sodium 145 mmol/L Invalid Interpretation Code 135 - 145 mmol/L [facility] Urea nitrogen 17 mg/dL Invalid Interpretation Code 8 - 25 mg/dL [facility] Urine, bilirubin presence 0.6 mg/dL Invalid Interpretation Code 0.3 - 1.2 mg/dL [facility] Lipid Panelon 12-19-2016 Cholesterol 242 mg/dL High 100 - 199 mg/dL [facility] Cholesterol to HDL Ratio 3.2 {ratio} Invalid Interpretation Code 3.2 - 5.0 [facility] HDL Cholesterol 76 mg/dL High 40 - 59 mg/dL [facility] Interpretation and review of laboratory results Abnormal Invalid Interpretation Code [facility] LDL Cholesterol 150 mg/dL Invalid Interpretation Code 10 - 150 mg/dL [facility] Triglyceride 85 mg/dL Invalid Interpretation Code 25 - 120 mg/dL [facility] VLDL 17 mg/dL Invalid Interpretation Code 5 - 40 mg/dL [facility] Vital Signs Date Time Vital Sign Value Performing Clinician Facility 07-28-2020 13:54-0400 BMI (Body Mass Index) 22.43 kg/m2 [place] Ludwig [facility] 07-28-2020 13:54-0400 Body Temperature 98.71 [degF] David Ludwig [facility] 07-28-2020 13:54-0400 Body weight 57.42 kg [place] Ludwig [facility] 07-28-2020 13:54-0400 BP Diastolic 82 mm[Hg] David Ludwig [facility] 07-28-2020 13:54-0400 BP Systolic 139 mm[Hg] David Ludwig [facility] 07-28-2020 13:54-0400 Height 160 cm David Ludwig [facility] 07-28-2020 13:54-0400 Pulse (Heart Rate) 84 /min David Ludwig [facility] 07-28-2020 13:54-0400 Pulse Oximetry 97 % David Ludwig [facility] 01-15-2020 14:24-0400 BMI (Body Mass Index) 22.5 kg/m2 Rubin Chirinos [facility] 01-15-2020 14:24-0400 Body weight 57.61 kg Rubin Chirinos [facility] 01-15-2020 14:24-0400 BP Diastolic 78 mm[Hg] Rubin Chirinos [facility] 01-15-2020 14:24-0400 BP Systolic 136 mm[Hg] Rubinyara Chirinos [facility] 01-15-2020 14:24-0400 Height 160 cm Rubinyara Chirinos [facility] 01-15-2020 14:24-0400 Pulse (Heart Rate) 64 /min Rubin Chirinos [facility] 01-15-2020 14:24-0400 Pulse Oximetry 97 % Rubin Chirinos [facility] 12-08-2019 11:20-0400 BMI (Body Mass Index) 22.5 kg/m2 David Ludwig [facility] 12-08-2019 11:20-0400 Body Temperature 97.81 [degF] David Ludwig [facility] 12-08-2019 11:20-0400 Body weight 57.61 kg David Ludwig [facility] 12-08-2019 11:20-0400 BP Diastolic 70 mm[Hg] David Ludwig [facility] 12-08-2019 11:20-0400 BP Systolic 133 mm[Hg] David Ludwig [facility] 12-08-2019 11:20-0400 Height 160 cm David Ludwig [facility] 12-08-2019 11:20-0400 Pulse (Heart Rate) 98 /min David Ludwig [facility] 06-16-2019 09:58-0500 BP Diastolic 74 mm[Hg] David Ludwig [facility] 06-16-2019 09:58-0500 BP Systolic 130 mm[Hg] David Ludwig [facility] 06-16-2019 09:58-0500 Pulse (Heart Rate) 82 /min David Ludwig [facility] 06-16-2019 09:58-0500 Pulse Oximetry 97 % David Ludwig [facility] 06-16-2019 09:58-0500 Respiratory Rate 18 /min David Ludwig [facility] 06-16-2019 09:54-0500 BMI (Body Mass Index) 23.13 kg/m2 David Ludwig [facility] 06-16-2019 09:54-0500 Body Temperature 97.9 [degF] David Ludwig [facility] 06-16-2019 09:54-0500 Body weight 59.24 kg David Ludwig [facility] 06-16-2019 09:54-0500 Height 160 cm David Ludwig [facility] 01-13-2019 11:15-0400 BMI (Body Mass Index) 22.14 kg/m2 Rubin Chirinos [facility] 01-13-2019 11:15-0400 Body weight 56.7 kg Rubin Chirinos [facility] 01-13-2019 11:15-0400 BP Diastolic 71 mm[Hg] Rubinyara Chirinos [facility] 01-13-2019 11:15-0400 BP Systolic 140 mm[Hg] Rubinyara Chirinos [facility] 01-13-2019 11:15-0400 Height 160 cm Rubinyara Chirinos [facility] 01-13-2019 11:15-0400 Pulse (Heart Rate) 80 /min Rubin Mandeep [facility] 01-13-2019 11:15-0400 Pulse Oximetry 99 % Rubin Chirinos [facility] 12-04-2018 09:08-0400 BMI (Body Mass Index) 22.43 kg/m2 Ceasar Arce [facility] 12-04-2018 09:08-0400 Body weight 57.42 kg Ceasar Oviedoo [facility] 12-04-2018 09:08-0400 BP Diastolic 80 mm[Hg] Ceasar Dmitryhodaniellao [facility] 12-04-2018 09:08-0400 BP Systolic 167 mm[Hg] Ceasar Andreshodaniellao [facility] 12-04-2018 09:08-0400 Height 160 cm Ceasar Oviedoo [facility] 12-04-2018 09:08-0400 Pulse (Heart Rate) 74 /min Ceasardario Arce [facility] 12-04-2018 09:08-0400 Pulse Oximetry 98 % Ceasar Arce [facility] 06-26-2018 11:00-0500 BP Diastolic 77 mm[Hg] David Ludwig [facility] 06-26-2018 11:00-0500 BP Systolic 129 mm[Hg] David Ludwig [facility] 06-26-2018 11:00-0500 Pulse (Heart Rate) 66 /min David Ludwig [facility] 06-26-2018 11:00-0500 Pulse Oximetry 96 % David Ludwig [facility] 06-26-2018 10:56-0500 BMI (Body Mass Index) 22.18 kg/m2 David Ludwig [facility] 06-26-2018 10:56-0500 Body Temperature 98.2 [degF] David Ludwig [facility] 06-26-2018 10:56-0500 Height 160 cm David Ludwig [facility] 06-26-2018 10:56-0500 Weight 56.79 kg Davidcleveland Ludwig [facility] 01-15-2018 10:01-0400 BMI (Body Mass Index) 22.32 kg/m2 Escobar [facility] 01-15-2018 10:01-0400 BP Diastolic 80 mm[Hg] [facility] 01-15-2018 10:01-0400 BP Systolic 152 mm[Hg] [facility] 01-15-2018 10:01-0400 Height 160 cm [facility] 01-15-2018 10:01-0400 Pulse (Heart Rate) 81 /min [facility] 01-15-2018 10:01-0400 Pulse Oximetry 98 % Escobar [facility] 01-15-2018 10:01-0400 Weight 57.15 [facility] 12-27-2017 10:27-0400 BMI (Body Mass Index) 22.27 kg/m2 David Ludwig [facility] 12-27-2017 10:27-0400 Body Temperature 97.59 [degF] David Ludwig [facility] 12-27-2017 10:27-0400 BP Diastolic 75 mm[Hg] David Ludwig [facility] 12-27-2017 10:27-0400 BP Systolic 159 mm[Hg] David Ludwig [facility] 12-27-2017 10:270400 Height 160 cm David Ludwig [facility] 12-27-2017 10:27-0400 Pulse (Heart Rate) 82 /min David Ludwig [facility] 12-27-2017 10:27-0400 Pulse Oximetry 97 % David Ludwig [facility] 12-27-2017 10:27-0400 Respiratory Rate 12 /min David Ludwig [facility] 12-27-2017 10:27-0400 Weight 57.02 kg David Ludwig [facility] 06-26-2017 09:46-0500 BMI (Body Mass Index) 23.06 kg/m2 Alfredo [facility] 06-26-2017 09:46-0500 Body Temperature 98.29 [degF] [facility] 06-26-2017 09:46-0500 BP Diastolic 80 mm[Hg] [facility] 06-26-2017 09:46-0500 BP Systolic 140 mm[Hg] [facility] 06-26-2017 09:46-0500 Height 160 cm [facility] 06-26-2017 09:46-0500 Pulse (Heart Rate) 68 /min [facility] 06-26-2017 09:46-0500 Weight 59.06 kg [facility] 06-20-2017 14:38-0500 BMI (Body Mass Index) 23.03 kg/m2 Ceasar Oviedoo [facility] 06-20-2017 14:38-0500 BP Diastolic 79 mm[Hg] Ceasar Oviedoo [facility] 06-20-2017 14:38-0500 BP Systolic 160 mm[Hg] Ceasar Andreshodaniellao [facility] 06-20-2017 14:38-0500 Height 160 cm Ceasar Oviedoo [facility] 06-20-2017 14:38-0500 Pulse (Heart Rate) 67 /min Ceasar Oviedoo [facility] 06-20-2017 14:38-0500 Pulse Oximetry 99 % Ceasar Oviedoo [facility] 06-20-2017 14:38-0500 Weight 58.97 kg Ceasar Arce [facility] 01-08-2017 10:21-0400 BMI (Body Mass Index) 22.32 kg/m2 Rubin Chirinos [facility] Work Phone: 01-08-2017 10:21-0400 BP Diastolic 85 mm[Hg] Rubin Chirinos [facility] Work Phone: 01-08-2017 10:21-0400 BP Systolic 165 mm[Hg] Rubin Chirinos [facility] Work Phone: 01-08-2017 10:21-0400 Height 160 cm Rubin Chirinos [facility] Work Phone: 01-08-2017 10:21-0400 Pulse (Heart Rate) 64 /min Rubin Chirinos [facility] Work Phone: 01-08-2017 10:21-0400 Pulse Oximetry 97 % Rubin Chirinos [facility] Work Phone: 01-08-2017 10:21-0400 Weight 57.15 kg Rubin Chirinos [facility] Work Phone: 12-13-2016 14:18-0400 BMI (Body Mass Index) 22.44 kg/m2 Ceasar Oviedoo [facility] Work Phone: 12-13-2016 14:18-0400 BP Diastolic 81 mm[Hg] Ceasar Oviedoo [facility] Work Phone: 12-13-2016 14:18-0400 BP Systolic 167 mm[Hg] Ceasar Oviedoo [facility] Work Phone: 12-13-2016 14:18-0400 Height 160 cm Ceasar Oviedoo [facility] Work Phone: 12-13-2016 14:18-0400 Pulse (Heart Rate) 69 /min Ceasar Andreshodko [facility] Work Phone: 12-13-2016 14:18-0400 Pulse Oximetry 99 % Ceasar Oviedoo [facility] Work Phone: 12-13-2016 14:18-0400 Weight 57.47 kg Ceasar Arce [facility] Work Phone: Encounters Encounter Date Encounter Type Care Provider Facility Start: 03-02-2025 Evaluation and manag ement of inpatient BISMARK SALES Facility:[facility] Start: 02-25-2025 End: 02-25-2025 ambulatory LIDIA ARMENTA Facility:[facility] Start: 02-24-2025 ambulatory Alexey Deperro OLS Facili ty:[facility] Start: 02-19-2025 ambulatory Alexey Deperro OLS Facili ty:[facility] Start: 02-04-2025 End: 02-04-2025 ambulatory JOVANI COCHRAN Facility:[facility] Start: 01-27-2025 End: 01-29-2025 Evaluation and management of inpatient JOHNSON WATSON Facility:[facility] Start: 01-05-2025 ambulatory Alexey Deperro OLS Facili ty:[facility] Start: 12-29-2024 ambulatory Alexey Deperro OLS Facili ty:[facility] Start: 12-24-2024 End: 12-27-2024 Evaluation and management of inpatient JOHNSON WATSON Facility:[facility] Start: 12-09-2024 ambulatory Alexey Deperro OLS Facili ty:[facility] Start: 09-18-2024 ambulatory Alexey Deperro OLS Facili ty:[facility] Start: 01-14-2021 [facility] Start: 12-07-2020 [facility] Start: 09-21-2020 End: 09-21-2020 Refill Shante Hargrove LPN [facility] Comment on above: Benign essential hyp ertension; Chronic combined systolic and diastolic congestive heart failure (HCC); Insomnia, unspecified type Start: 07-28-2020 End: 07-28-2020 ambulatory DAVID LUDWIG [facility] Start: 07-28-2020 End: 07-28-2020 Office outpatient visit 25 minutes Davidcleveland Ludwig Work Phone: [facility] Comment on above: Benign essential hyp ertension (Primary Dx); Chronic combined systolic and diastolic congestive heart failure (HCC); Mixed hyperlipidemia Start: 05-07-2020 End: 05-07-2020 Orders Only Alley Lopez Jigar Work Phone: [facility] Start: 02-03-2020 End: 02-04-[address] [facility] Start: 02-03-2020 End: 02-03-2020 Subsequent hospital visit by physician Rubin Chirinos Work Phone: [facility] Comment on above: Bruit of left caroti d artery Start: 01-15-2020 End: 01-15-2020 Office outpatient visit 25 minutes Rubin Chirinos Work Phone: [facility] Comment on above: Bruit of left caroti d artery (Primary Dx); Chronic combined systolic and diastolic congestive heart failure (HCC); Mixed hyperlipidemia; Nonrheumatic aortic valve insufficiency; Benign essential hypertension; Left carotid bruit Start: 12-08-2019 End: 12-08-2019 Patient encounter procedure David Ludwig Work Phone: [facility] Comment on above: General medical exam (Primary Dx); At low risk for fall; Need for vaccination Start: 12-01-2019 End: 12-05-2019 Patient encounter procedure DAVIDCLEVELAND MORTENSEN [facility] Start: 06-16-2019 End: 06-16-2019 Office outpatient visit 25 minutes David Ludwig Work Phone: [facility] Comment on above: Benign essential hyp ertension (Primary Dx); Chronic combined systolic and diastolic congestive heart failure (HCC); Mixed hyperlipidemia; Subclinical hypothyroidism; Insomnia, unspecified type Start: 01-13-2019 End: 01-13-2019 Office outpatient visit 25 minutes Rubin Chirinos Work Phone: [facility] Comment on above: Cardiomyopathy, unsp ecified type (HCC) (Primary Dx); Chronic combined systolic and diastolic congestive heart failure (HCC); Mixed hyperlipidemia; Benign essential hypertension Start: 12-04-2018 End: 12-04-2018 Clinical Support Kriss Marcelo [facility] Aud[facility] Comment on above: Sensorineural hearin g loss, bilateral (Primary Dx); Sudden hearing loss, unspecified laterality Start: 12-04-2018 End: 12-04-2018 Office outpatient visit 25 minutes Ceasar Maddoxkatiemarcus Work Phone: [facility] Comment on above: Hearing loss due to cerumen impaction, bilateral (Primary Dx); Sensorineural hearing loss, bilateral Start: 09-26-2018 End: 09-26-2018 Patient encounter procedure Eve Yap [facility] Comment on above: Medicare Wellness Vi sit (VM to schedule MWV) Start: 06-26-2018 End: 06-26-2018 Office outpatient visit 25 minutes David Festus Nadia Work Phone: [facility] Comment on above: Benign essential hyp ertension (Primary Dx); Mixed hyperlipidemia; Chronic combined systolic and diastolic congestive heart failure (HCC); Mood disorder (HCC) Start: 01-28-2018 Patient encounter procedure Escobar Gallegos Facility:[place] Start: 01-28-2018 End: 01-28-2018 Patient encounter Escobar Julian Gallegos Work Phone: [facility] Start: 01-15-2018 End: 01-15-2018 Office outpatient visit 25 minutes Escobar Gallegos Work Phone: [facility] Comment on above: Congestive heart elsy lure, unspecified HF chronicity, unspecified heart failure type (HCC) (Primary Dx); Dyspnea on exertion; Nonrheumatic aortic valve insufficiency; Benign essential hypertension Start: 12-27-2017 End: 12-27-2017 Office outpatient visit 25 minutes Davidcleveland Mortensen Nadia Work Phone: [facility] Comment on above: Benign essential hyp ertension (Primary Dx); Mixed hyperlipidemia; Subclinical hypothyroidism; Chronic combined systolic and diastolic congestive heart failure (HCC); Need for influenza vaccination Start: 12-19-2017 Patient encounter procedure Alfredo Barreto Facility:[place] Start: 12-19-2017 End: 12-19-2017 Patient encounter Devonte Hassan [facility] Start: 11-07-2017 Abner Palenciay M D Work Phone: [facility] Comment on above: Medication Refill Start: 06-26-2017 Patient encounter procedure Alfredo Barreto Facility:[place] Start: 06-26-2017 Office/outpatient vi sit, est, level 3 Alfredo Isabel Ladonnalisa Work Phone: [facility] Start: 06-25-2017 Patient encounter procedure Oscar Horace Sylillian Facility:[facility] Start: 06-20-2017 Patient encounter Ceasar guillen Prykhodko Work Phone: [facility] Start: 06-18-2017 Patient encounter procedure Oscar Horace Mendes Facility:[place] Start: 01-12-2017 End: 01-12-2017 Ambulatory Rubin Chirinos Work Phone: [facility] Start: 01-08-2017 Office/outpatient vi sit, est, level 5 Rubin Chirinos Work Phone: [facility] Start: 12-19-2016 End: 12-19-2016 Ambulatory Oscar Horace Mendes Work Phone: [facility] Start: 12-15-2016 End: 12-15-2016 Ambulatory [facility] Work Phone: [facility] Start: 12-13-2016 End: 12-13-2016 Office outpatient new 30 minutes Ceasar Segura Prykhodko Work Phone: [facility] Comment on above: Hearing loss due to cerumen impaction, bilateral (Primary Dx);Presbycusis, unspecified laterality Start: 11-24-2016 End: 11-24-2016 Ambulatory Oscar Horace Mendes [facility] Phone[facility] Start: 12-07-2029 Tetanus vaccination Tetanus: Every 10yrs [facility] Start: 12-27-2022 History and physical examination, annual for health maintenance Wellness Visit [facility] Start: 12-22-2021 Influenza vaccination Sequential Influenza Vaccine (#1) [facility] Start: 01-31-2021 End: 01-31-2021 Office Visit 01/31/2021 Office Visit Primary Care David Ludwig MD [address] [place] [address] [phone] [facility] Start: 12-07-2020 Administration of herpes zoster vaccine Zoster Vaccines (1 of 2) [facility] Comment on above: Postponed from 10/21/1985 (Treatment Not Available) Start: 12-07-2020 Adolescent depression screening assessment Depression Screening (PHQ9) [facility] Start: 12-07-2020 Depression screening using PHQ-9 (Patient Health Questionnaire 9) score [facility] Start: 12-07-2020 Fall risk assessment Falls Risk Assessment [facility] Start: 12-07-2020 History and physical examination, annual for health maintenance Wellness Visit [facility] Start: 08-09-2020 COVID-19 Vaccine (3 - Booster for Moderna series) COVID-19 Vaccine (3 - Booster for Moderna series) [facility] Start: 07-28-2020 End: 07-28-2020 Office Visit 07/28/2020 Office Visit Primary Care David Ludwig MD [address] [place] [address] [phone] [facility] Start: 07-28-2020 End: 07-28-2021 Microalbumin measurement, urine, quantitative Microalbumin/Creatinine Ratio, UR Random Lab Routine Benign essential hypertension Expected: 07/28/2020, Expires: 07/28/2021 [facility] Comment on above: Expected: 07/28/2020, Expires: Start: 06-10-2020 End: 06-10-2020 Office Visit 06/10/2020 Office Visit Primary Care David Ludwig MD [address] [place] [address] [phone] [facility] Start: 02-03-2020 End: 02-03-2020 Appointment 02/03/2020 Appointment Cardiology Rubin Chirinos MD [address] [place] [address] [phone] [facility] Start: 12-23-2019 Influenza vaccination given Sequential Influenza Vaccine (#1) [facility] Start: 12-19-2019 Depression screening using PHQ-9 (Patient Health Questionnaire 9) score DEPRESSION SCREENING (PHQ9) [facility] Start: 12-19-2019 Fall risk assessment Falls Risk Assessment [facility] Start: 12-08-2019 End: 12-08-2019 Office Visit 12/08/2019 Office Visit Primary Care David Ludwig MD [address] [place] [address] [phone] [facility] Start: 06-16-2019 End: 06-16-2020 Microalbumin measurement, urine, quantitative Microalbumin/Creatinine Ratio, UR Random Lab Routine Benign essential hypertension Expected: 06/16/2019, Expires: 06/16/2020 [facility] Comment on above: Expected: 06/16/2019, Expires: 1 Start: 06-16-2019 End: 06-16-2019 Office Visit 06/16/2019 Office Visit Primary Care David Ludwig MD [address] [place] [address] [phone] [facility] Start: 01-13-2019 End: 01-13-2019 Office Visit 01/13/2019 Office Visit Cardiology Rubin Chirinos MD [address] [place] [address] [phone] [facility] Start: 12-22-2018 Influenza vaccination given SEQUENTIAL INFLUENZA VACCINE (#1) [facility] Start: 12-20-2018 End: 12-20-2018 Office Visit 12/20/2018 Office Visit Primary Care David Ludwig MD [address] [place] [address] [phone] [facility] Start: 12-18-2018 End: 12-18-2018 Office Visit 12/18/2018 Office Visit Primary Care David Ludwig MD [address] [place] [address] [phone] [facility] Start: 06-26-2018 End: 06-27-2019 Microalbumin measurement, urine, quantitative Microalbumin, Urine, Random Routine Benign essential hypertension Expected: 06/26/2018, Expires: 06/27/2019 [facility] Comment on above: Expected: 06/26/2018, Expires: 0 Start: 06-26-2018 End: 06-26-2018 Ambulatory 06/26/2018 Office Visit Primary Care David Ludwig MD [address] [place] [address] [phone] [facility] Start: 06-19-2018 End: 06-19-2018 Ambulatory 06/19/2018 Clinical Support Primary Care [facility] Start: 01-28-2018 End: 01-28-2018 Ambulatory 01/28/2018 Appointment Cardiology Escobar Gallegos, VERONICA [address] [place] [address] [phone] [facility] Start: 01-10-2018 End: 01-10-2018 Ambulatory 01/10/2018 Office Visit Cardiology Rubin Chirinos MD [address] [place] [address] [phone] [facility] Start: 12-27-2017 End: 12-27-2017 Ambulatory [facility] Start: 12-22-2017 Influenza vaccination SEQUENTIAL INFLUENZA VACCINE (#1) [facility] Start: 12-18-2017 Ambulatory 12/18/2017 Clinical Support Primary Care [facility] Start: 06-26-[address] [facility] Start: 06-25-2017 Ambulatory 06/25/2017 Hospital Encounter Oscar Mendes MD [address] [place] [address] [phone] [facility] Start: 06-20-2017 Ambulatory 06/20/2017 Office Visit Otolaryngology Ceasar Arce MD [address] [facility] [address] [place] [address] [phone] [facility] Start: 06-18-2017 Ambulatory 06/18/2017 Hospital Encounter Oscar Mendes MD [address] [place] [address] [phone] [facility] Start: 01-12-2017 Ambulatory 01/12/2017 Hospital Encounter Cardiology Rubin [facility] [address] [facility] [place] [place] [address] [phone] [facility] Start: 01-08-2017 Ambulatory 01/08/2017 Office Visit Cardiology Rubin Chirinos MD [address] [place] [address] [phone] [facility] Start: 12-22-2016 Influenza vaccination SEQUENTIAL INFLUENZA VACCINE (#1) [facility] Work Phone: Start: 12-22-2016 SEQUENTIAL INFLUENZA VACCINE (#1) SEQUENTIAL INFLUENZA VACCINE (#1) [facility] Work Phone: Start: 12-13-2016 Ambulatory 12/13/2016 Office Visit Otolaryngology Ceasar Arce MD [address] [facility] [address] [place] [address] [phone] [facility] Start: 03-02-2016 Pneumococcal vaccination PNEUMOCOCCAL VACCINE AGE 65+ (2 of 2 - PCV13) [facility] Start: 10-21-2000 Fall risk assessment Steadi Fall Risk Assessment [facility] Start: 10-21-2000 Pneumococcal vaccination PNEUMOCOCCAL VACCINE AGE 65+ (1 of 2 - PCV13) [facility] Work Phone: Start: 10-21-2000 PNEUMOCOCCAL VACCINE AGE 65+ (1 of 2 - PCV13) PNEUMOCOCCAL VACCINE AGE 65+ (1 of 2 - PCV13) [facility] Work Phone: Start: 1995 Zoster vacc, sc ZOSTER VACCINE [facility] Work Phone: Start: 10-21-1985 Administration of herpes zoster vaccine ZOSTER VACCINES (1 of 2) [facility] Start: 10-21-1985 ZOSTER VACCINES (1 of 2) ZOSTER VACCINES (1 of 2) [facility] Start: 10-21-1938 History and physical examination, annual for health maintenance Wellness Visit [facility] Start: 1935 Fall risk assessment Falls Risk Assessment [facility] Start: 1935 End: 1935 DEXA SCAN DEXA SCAN [facility] Work Phone: Start: 1935 End: 1935 Screening for osteoporosis DEXA SCAN [facility] Start: 1935 End: 1935 TETANUS EVERY 10 YR TETANUS EVERY 10 YR [facility] Work Phone: Start: 1935 End: 1935 Tetanus vaccination [facility] Work Phone: End: 03-17-2021 Carotid artery doppler assessment Ultrasound doppler carotid Vascular Ultrasound Routine Bruit of left carotid artery 1 Occurrences starting 01/15/2020 until 03/17/2021 [facility] Comment on above: 1 Occurrences starting 01/15/2020 until 03/17/2021 End: 01-12-2017 Carotid Duplex Carotid Duplex Routine Bruit Once for 1 Occurrences starting 01/12/2017 until 01/12/2017 [facility] Work Phone: Carotid Duplex Carotid Duplex R outine Bruit 01/12/2017 4:01 PM EDT [facility] Work Phone: End: 03-10-2018 Carotid Duplex Carotid Duplex Routine Bruit 1 Occurrences starting 01/08/2017 until 03/10/2018 [facility] Work Phone: End: 06-26-2018 Cholesterol Lipid Panel Routine Pure hypercholesterolemia 1 Occurrences starting 06/26/2017 until 06/26/2018 [facility] End: 06-26-2018 Complete blood count (hemogram) panel - Blood by Automated count CBC Routine Essential hypertension 1 Occurrences starting 06/26/2017 until 06/26/2018 [facility] End: 06-27-2019 Complete blood count with white cell differential, manual CBC and Differential Routine Benign essential hypertension 1 Occurrences starting 11/26/2018 until 06/27/2019 [facility] Comment on above: 1 Occurrences starting 11/26/2018 until 06/27/2019 End: 06-16-2020 Complete blood count with white cell differential, manual CBC and Differential Lab Routine Benign essential hypertension 1 Occurrences starting 06/16/2019 until 06/16/2020 [facility] Comment on above: 1 Occurrences starting 06/16/2019 until 06/16/2020 End: 07-28-2021 Complete blood count with white cell differential, manual CBC and Differential Lab Routine Benign essential hypertension 1 Occurrences starting 07/28/2020 until 07/28/2021 [facility] Comment on above: 1 Occurrences starting 07/28/2020 until 07/28/2021 End: 06-27-2019 Comprehensive metabolic 2000 panel Comprehensive Metabolic Panel Routine Benign essential hypertension 1 Occurrences starting 11/26/2018 until 06/27/2019 [facility] Comment on above: 1 Occurrences starting 11/26/2018 until 06/27/2019 End: 06-16-2020 Comprehensive metabolic 2000 panel Comprehensive Metabolic Panel Lab Routine Benign essential hypertension 1 Occurrences starting 06/16/2019 until 06/16/2020 [facility] Comment on above: 1 Occurrences starting 06/16/2019 until 06/16/2020 End: 07-28-2021 Comprehensive metabolic 2000 panel Comprehensive Metabolic Panel Lab Routine Benign essential hypertension 1 Occurrences starting 07/28/2020 until 07/28/2021 [facility] Comment on above: 1 Occurrences starting 07/28/2020 until 07/28/2021 End: 06-26-2018 Comprehensive metabolic panel [AGGREGATE] Comprehensive Metabolic Panel Routine Essential hypertension 1 Occurrences starting 06/26/2017 until 06/26/2018 [facility] End: 01-16-2019 Echocardiogram complete Echocardiogram complete Routine Dyspnea on exertion 1 Occurrences starting 01/15/2018 until 01/16/2019 [facility] Comment on above: 1 Occurrences starting 01/15/2018 until 01/16/2019 End: 06-27-2019 Lipid 1996 panel Lipid Panel Routine Mixed hyperlipidemia 1 Occurrences starting 11/26/2018 until 06/27/2019 [facility] Comment on above: 1 Occurrences starting 11/26/2018 until 06/27/2019 End: 06-16-2020 Lipid 1996 panel Lipid Panel Lab Routine Mixed hyperlipidemia 1 Occurrences starting 06/16/2019 until 06/16/2020 [facility] Comment on above: 1 Occurrences starting 06/16/2019 until 06/16/2020 End: 07-28-2021 Lipid 1996 panel Lipid Panel Lab Routine Benign essential hypertension 1 Occurrences starting 07/28/2020 until 07/28/2021 [facility] Comment on above: 1 Occurrences starting 07/28/2020 until 07/28/2021 End: 06-26-2018 Microalbumin, Urine, Random Microalbumin, Urine, Random Routine Essential hypertension 1 Occurrences starting 06/26/2017 until 06/26/2018 [facility] End: 06-27-2019 Thyrotropin Qn TSH with Reflex Free T4 Routine Benign essential hypertension 1 Occurrences starting 11/26/2018 until 06/27/2019 [facility] Comment on above: 1 Occurrences starting 11/26/2018 until 06/27/2019 End: 06-26-2018 TSH TSH Routine Hypothyroidism (acquired) 1 Occurrences starting 06/26/2017 until 06/26/2018 [facility] End: 06-16-2020 TSH Qn TSH with Reflex Free T4 Lab Routine Subclinical hypothyroidism 1 Occurrences starting 06/16/2019 until 06/16/2020 [facility] Comment on above: 1 Occurrences starting 06/16/2019 until 06/16/2020 End: 07-28-2021 TSH Qn TSH with Reflex Free T4 Lab Routine Benign essential hypertension 1 Occurrences starting 07/28/2020 until 07/28/2021 [facility] Comment on above: 1 Occurrences starting 07/28/2020 until 07/28/2021 Immunizations Immunization Date Immunization Notes Care Provider Derrick gomez 06-14-2020 Moderna SARS-CoV-2 Vaccination Brand on [facility] 05-17-2020 Moderna SARS-CoV-2 Vaccination Brand on [facility] 01-28-2020 Seasonal, quadrivale nt, recombinant, injectable influenza vaccine, preservative free [facility] 12-08-2019 diphtheria, tetanus toxoids and acellular pertussis vaccine, unspecified formulation [facility] 12-08-2019 tetanus toxoid, redu cielo diphtheria toxoid, and acellular pertussis vaccine, adsorbed [facility] 12-27-2017 influenza, high dose seasonal, preservative-free; Translations: [INFLUENZA IIV3 HIGH DOSE 65 AND OLDER] David Ludwig [facility] 03-02-2015 influenza virus vacc ine, unspecified formulation Ceasar Prykhodko [facility] 03-02-2015 influenza, injectabl e, quadrivalent, preservative free [facility] 03-02-2015 pneumococcal conjuga te vaccine, 13 valent David [facility] 03-02-2015 pneumococcal polysac charide vaccine, 23 valent Ceasar Prykhodko [facility] 03-17-2002 influenza virus vacc ine, unspecified formulation [facility] Payers Date Payer Category Payer Self-pay 2015 Unknown [id number] 2015 Unknown [facility] [id number] 2015-Present [id number] 2015 Unknown [facility] [id number] 2015-Present [phone] [address] [place] [address] [id number] 2000 Medicare [id number] 2000 Medicare MEDICARE MEDICAR E PART A & B [id number] 2000-Present [place] [id number] 2000 Medicare MEDICARE MEDICAR E PART A & B [id number] 2000-Present [phone] S [id number] PART A CLAIMS [address] [address] [place] [address] [id number] 2000 Unknown [id number] 2000 Medicare [id number] 1935 Unknown [id number] 1935 Unknown [id number] 1935 Unknown [id number] 1935 Unknown [id number] 1935 Unknown [id number] Medicare [id number] Unknown [id number] Unknown [id number] Unknown [id number] Unknown [id number] Unknown [id number] Unknown [id number] Social History Date Type Detail Facility Start: 12-13-2016 End: 06-26-2017 Tobacco smoking status AZIS Never smoker [facility] Start: 1935 Sex Assigned At Not on file [employer] Work Phone: Start: 01-06-2016 Alcohol Comment very seldom [facility] Start: 06-26-2017 End: 01-13-2019 Alcohol intake Current drinker of alcohol (finding) [facility] Start: 12-18-2018 End: 07-28-2020 History SDOH Social Connections Phone 3 [facility] Start: 12-18-2018 End: 12-08-2019 History SDOH Food Worry 1 [facility] Start: 12-13-2016 End: 01-15-2020 Tobacco use and exposure Never used [facility] Start: 01-15-2020 End: 07-28-2020 Alcohol intake Ex-drinker (finding) [facility] Start: 12-08-2019 History SDOH Physica l Activity DPW 0 [facility] Start: 12-08-2019 History SDOH Education 14 [facility] Start: 12-08-2019 History SDOH Financial 5 [facility] Start: 12-08-2019 End: 07-28-2020 History SDOH IPV Fear 2 [facility] Start: 06-28-2020 End: 07-28-2020 Exposure to SARS-CoV-2 (event) Not sure [facility] Start: 06-26-2017 End: 07-28-2020 Alcohol intake [facility] Clinical Notes 11-07-2017 to 03-04-2025 Telephone Encounter - Shante Hargrove LPN - 09/21/2020 4:05 PM EDTTelephone Encounter - Theresa Berg MA - 11/09/2017 9:59 AM EDT Note Date & Type Note Facility 03-04-2025 Note HNO ID: [id number] Author: NORMA LEES RN Service: Care Management Author Type: Registered Nurse Type: Care Mgt Progress Note Filed: 03/04/2025 13:48 Note Text: CARE MANAGEMENT PROGRESS NOTE SERVICE DATE: 03/04/2025 SERVICE TIME: 1:07 PM LOS: 2 days Needs Prior to Discharge: To Be Determined EMR reviewed. Acute on chronic CHF. On IV Lasix. On RA. Returning to [facility]. OT rec HHC. PT pending. Updated [facility] referral, awaiting answer if they have their own onsite therapy or a [facility] agency they prefer to use. 1:47 PM [facility] advised they will use their in house therapy team to provide the home therapy patient needs upon return. SIGNATURE: Norma Lees RN PATIENT NAME: Na Good DATE: March 04, 2025 TIME: 1:07 PM [facility] 03-04-2025 Note HNO ID: [id number] Author: BISMARK SALES MD Service: General Internal [...] views is recommended. Echocardiography Report: Transthoracic Echo [facility] Date of service: 12/26/2024 CONCLUSIONS: - Exam [...] subject to e (more content not included)... [facility] 03-03-2025 Note HNO ID: [id number] Author: NORMA LEES, RN Service: Care Management Author Type: Registered Nurse Type: Care Mgt Initial Assessment Filed: 03/03/2025 12:04 Note Text: CARE MANAGEMENT: ASSESSMENT AND DISCHARGE PLAN SERVICE DATE: March 03, 2025 SERVICE TIME: 11:56 AM PCP: Alexey Vinson Sr, DO - Confirmed. Primary Contact: Extended Emergency Contact Information Primary Emergency Contact: Janelle Bailey Mobile Relation: Daughter Secondary Emergency Contact: GerrironyYuridia Mobile Relation: Daughter Admission Status: Inpatient Insurance Provider: MEDICARE A AND B Discharge Planning requested by: Per Department Practice Potential Transition Plans Senior Care Facility/Intermediate Care Facility Advance Directives Current Advance Directive: Health Care Power of Final Assembler Boat In Chart: Yes Up To Date and Valid: Yes Current Living Arrangements and Support Lives with: Type of Residence: Assisted Living Facility Does the patient have to climb stairs at home?: No Care Facility Name: [facility] Support: Children How do you manage to accomplish the following: Independent: Ambulation, Dress, Going to the bathroom Needs Assistance: Bathe/Shower Dependent: Meals/Meal Prep, Medication Management, Transportation to appointments/community Current Services/Equipment Current Post-Acute Service(s): DME Current DME Type: Walker (Walker inside, Walking poles outside.) Discharge Planning Patient Goal(s): Be able to go home, General wellness [place] Explained: [place] Given: Yes Level of Care Discussed: Other: See Comment (Return to [facility].) Are you interested in bedside delivery of your medications? No Discharge Planning Participant(s): Children Patient/Family Comments: Caregiver Assessment: Caregiver is ready, willing and able to meet the patient's needs as recommended by the inter-professional team: Yes Name of Caregiver: [facility] Transport at Discharge: Transportation Arrangements: To Be Determined Needs Prior to Discharge: Needs Prior to Discharge: To Be Determined Post-Acute Discharge Plan: CM spoke with daughter/AIRAM Shi to complete assessment, introduced self and role. Pt is 89 y/o, admit Dx Acute on chronic CHF. Patient resides at [facility]. Needs assist with bathing, nurses administer all meds. Daughter reports patient uses a walker inside and walking poles when outside. Presented to ED with worsening dyspnea on exertion. Cardiology consulted. On IV Lasix. On RA. Pt is AANDO X 3. Anticipate return to [facility]. Discharge transport TBD Family vs [facility] vs Medical transport. Daughter feels Discharge instructions on Lasix administration need to be very specific for the [facility] nurses at d/c. CM instructed patient that CM team will remain available for any dc needs. SIGNATURE: Norma Lees RN PATIENT NAME: Na Good DATE: March 03, 2025 TIME: 11:56 AM [facility] 03-03-2025 Note HNO ID: [id number] Author: BISMARK SALES MD Service: General Internal [...] views is recommended. Echocardiography Report: Transthoracic Echo [facility] Date of service: 12/26/2024 CONCLUSIONS: - Exam [...] by contextual deri (more content not included)... [facility] 03-02-2025 Note SARS-COV-2 (AGENT OF COVID-19) RNA: Not detected INFLUENZA A RNA: Not detected INFLUENZA B RNA: Not detected RESPIRATORY SYNCYTIAL VIRUS (RSV) RNA: Not detected [facility] Comment on above: Performed By: #### 2 4321-2 #### [facility] CLIA [id number] [address] [place] [address] [facility] 02-25-2025 Note HNO ID: [id number] Author: LIDIA ARMENTA APRN.VERONICA Service: ? Author Type: Nurse Practitioner Type: Progress Notes Filed: 02/25/2025 15:55 Note Text: [facility] [place] [facility] Rayo Department of Cardiovascular Medicine SECTION [...] a follow up visit. Recent admission to [facility] for acute diastolic HF Seen by me [...] She resides in an assisted living facility, [facility], and is accompanied by her nurse aide. [...] prior to the follow up. Lidia Armenta APRN.ASSOCIATE PROFESSOR OF EDUCATION Cardiology Nurse Practitioner Section of Regional Cardiology [facility] Dept of Cardiovascular Medicine [facility] [place] [address] [place] [address] Office Office February 25, 2025 (more content not included)... [facility] 02-04-2025 Note HNO ID: [id number] Author: JOVANI COCHRAN APRN.ASSOCIATE PROFESSOR OF EDUCATION Service: ? Author Type: Nurse Practitioner Type: Progress Notes Filed: 02/04/2025 13:00 Note Text: [facility] [place] [facility] OUTPATIENT VISIT DATE February [...] Impaired Vision, Glass (more content not included)... [facility] 01-29-2025 Note HNO ID: [id number] Author: NAHEED GREENBERG RN Service: Care Management Author Type: Registered Nurse Type: Care Mgt Progress Note Filed: 01/29/2025 14:44 Note Text: CARE MANAGEMENT DISCHARGE NOTE SERVICE DATE: January 29, 2025 SERVICE TIME: 2:41 PM Discharge order written for today. [facility]: [facility] - - Updated in [facility] and by Phone with Nurse Persaud on discharge planning. Nurse Persaud updated on discharge today and confirms the facility will set home PT services for patient. MMT transport scheduled for today at 3:30 PM - Trip Number [id number] Transport envelope on chart LAKESHIA GALLEGO discussed discharge with Nurse Yaritza Steven RN. Admission Date: 01/27/2025 LOS: 2 days Discharge Arrangement Discharge Arrangement: Assisted Living Facility [facility]: [facility] - Transportation Arrangements Transportation Arrangements: Ambulance Transportation Agency and Phone #:: [facility] [phone] Date of Trip: 01/29/25 (Trip Number [id number]) Time of Trip: 1530 Type of Service: BLS Non-emergency Is Patient Medicaid Pending?: No Was transportation financial coverage discussed with family?: Family (Son: Yandel Good - [phone]) Rod Bending Machine Operator Location: [place] Destination: [facility] - Financial Care Management Responsibility: None Handoff Communication: Handoff to: Primary Care Physician Primary Care Physician Name/Phone: PCP: Alexey Espino DO - Additional Information: Discharge Information Row Name ED to Hosp-Admission (Current) from 01/27/2025 in [facility] Follow-Up Appointment Provider Name PCP: Alexey Espino DO - Other Follow-Up Type [facility]: [facility] - SIGNATURE: Naheed Greenberg RN PATIENT NAME: Na Good DATE: January 29, 2025 TIME: 2:41 PM [facility] 01-29-2025 Note HNO ID: [id number] Author: NAHEED GREENBERG RN Service: Care Management Author Type: Registered Nurse Type: Care Mgt Progress Note Filed: 01/29/2025 14:36 Note Text: CARE MANAGEMENT PROGRESS NOTE SERVICE DATE: 01/29/2025 SERVICE TIME: 2:13 PM LOS: 2 days RN CM spoke with son: Yandel Good [phone] to discuss discharge planning. Anticipate discharge today. Yandel confirms plan if for return to [facility]: [facility]. RN CM informed Yandel of [...] Copy Given: Yes Copy given to:: Patient Surfacer Surfacer Name/Relationship: Son: Yandel Good - Method: By Phone MMT Transport scheduled for today at 3:30 PM - Trip Number [id number] Transport envelope on chart with Nurse to Nurse Report Number RN CM updated Nurse Yaritza Steven RN. RN CM called [facility] spoke with Nurse: Cori to discuss need for Home PT services. She confirms the will arrange PT with the facility therapist. She has been informed that patient will be discharge and returning to them today. [facility]charge Plan and Medical Transport Time. SIGNATURE: Naheed Greenberg RN PATIENT NAME: Na Good DATE: January 29, 2025 TIME: 2:13 PM [facility] 01-29-2025 Note HNO ID: [id number] Author: LIDIA ARMENTA APRN.CNP Service: Cardiovascular Medicine Author Type: Nurse Practitioner Type: Progress Notes Filed: 01/29/2025 10:50 Note Text: [facility] [place] [facility] Rayo Department of Cardiovascular Medicine SECTION OF [facility] CARDIOLOGY/[facility] Progress Note Elements of this note, [...] Consulting Physician: Julio Cesar Alvarez MD Primary Saddle And Side Wire Stitcher: Mandeep - last visit 2019 SERVICE DATE: [...] PO daily and lasix 20 mg daily WIRELESS SALES REPRESENTATIVE - Enalapril increased to 5 mg BID [...] Dr. Martinez and nursing staff. Lidia Armenta APRN.ASSOCIATE PROFESSOR OF EDUCATION 01/29/2025 9:00 AM PAST MEDICAL HISTORY PAST [...] 10/05/2003 45 Last ECHO Result Conclusion ECHO [facility] (more content not included)... [facility] 01-28-2025 Note HNO ID: [id number] Author: NAHEED GREENBERG RN Service: Care Management Author Type: Registered Nurse Type: Care Mgt Initial Assessment Filed: 01/28/2025 14:43 Note Text: CARE MANAGEMENT: ASSESSMENT AND DISCHARGE PLAN SERVICE DATE: January 28, 2025 SERVICE TIME: 8:38 AM concert or lecture hall manager spoke with patient to complete Care Management Assessment. RN CM left voice message for Daughter/HCPOA: Yuridia Whyte [phone] to call CM to discuss discharge planning. [...] Current Advance Directive: Health Care Power of Final Assembler Boat In Chart: Yes Current Living Arrangements and Support Type of Residence: Assisted Living Facility Does the patient have to climb stairs at home?: No Care Facility Name: [facility]: [facility] Home - How do you manage to accomplish the following: Needs Assistance: Ambulation, Bathe/Shower, Dress, Going to the bathroom Dependent: Meals/Meal Prep, Medication Management, Transportation to appointments/community Current Services/Equipment Current Post-Acute Service(s): DME Current DME Type: (Walking Sticks and Wheeled Walker) Current Post-Acute Service(s) Provider: None Discharge Planning Patient Goal(s): Be able to go home [place] Explained: [place] Given: No (Discharge Needs: To be Determined) Discharge Planning Participant(s): Patient Transport at Discharge: Transportation Arrangements: To Be Determined Needs Prior to Discharge: Needs Prior to Discharge: To Be Determined, OT/PT Evaluation, Discharge Transportation Post-Acute Discharge Plan: 01/28/25 2:43 PM RN CM called [facility] spoke with Nurse Adriana in Assisted Living. Adriana confirms patient is a resident in [facility]. She confirmed PCP: Alexey Espino DO - and Pharmacy for Discharge: [facility] in [facility] - Adriana informs CM that patient is not active with HHC or Therapy at the facility prior to admission. Discharge Transportation: To be Determined. CM Dept to Follow. SIGNATURE: Naheed Greenberg RN PATIENT NAME: Na Good DATE: January 28, 2025 TIME: 2:38 PM [facility] 01-28-2025 Note HNO ID: [id number] Author: JULIO CESAR ALVAREZ MD Service: Hospital Medicine Author Type: Physician Type: Progress Notes Filed: 01/28/2025 12:39 Note Text: DEPARTMENT OF HOSPITAL MEDICINE PROGRESS NOTE SERVICE DATE: 01/28/2025 SERVICE TIME: 12:35 PM Hospital Medicine/Primary Attending: Julio Cesar Alvarez MD NIGHT AND WEEKEND COVERAGE: [facility]: Days: [phone], please page attending physician. Nights: [phone], please page [place] Hospitalist Night coverage pager [phone]. Subjective INTERVAL HPI: No acute events overnight. [...] AND Antiplatelet Me (more content not included)... [facility] 01-27-2025 Note SARS-COV-2 (AGENT OF COVID-19) RNA: Not detected INFLUENZA A RNA: Not detected INFLUENZA B RNA: Not detected RESPIRATORY SYNCYTIAL VIRUS (RSV) RNA: Not detected [facility] Comment on above: Performed By: #### 2 4321-2 #### [facility] CLIA [id number] [address] [place] 12-27-2024 Note HNO ID: [id number] Author: JOAN CARRIZALES RN Service: ? Author Type: Registered Nurse Type: Nursing Progress Note Filed: 12/27/2024 12:22 Note Text: Report was given to cori at [facility] [place] 12-27-2024 Note HNO ID: [id number] Author: ANDRE SAN LSW Service: Care Management Author Type: Marine Propulsion Technician Type: Care Mgt Progress Note Filed: 12/27/2024 11:32 Note Text: CARE MANAGEMENT DISCHARGE NOTE SERVICE DATE: December 27, 2024 SERVICE TIME: 11:28 AM Admission Date: 12/24/2024 LOS: 3 days Discharge Arrangement Services Arranged Provider Name: [facility] Caregiver Assessment Transportation Arrangements Transportation Arrangements: Car Date of Trip: 12/27/24 Time of Trip: 1300 Is Patient Medicaid Pending?: No Was transportation financial coverage discussed with family?: Patient, Family Rod Bending Machine Operator Location: [place] Destination: [facility] Financial Care Management Responsibility: None Handoff Communication: Handoff to: Other Caregiver Other Caregiver Name/Phone: Daughter confirmed pt has homecare services through [facility]. F2f included in d/c envelope Additional Information: CM notified regarding d/c today, return to [facility]. Family confirmed pt's son, Yandel Good, will be transporting pt back to the facility. Envelope with d/c information updated. CM will follow, as needed. SIGNATURE: DALILA Moy, TED PATIENT NAME: Na Good DATE: December 27, 2024 TIME: 11:28 AM [facility] 12-27-2024 Note HNO ID: [id number] Author: LIDIA ARMENTA APRN.CNP Service: Cardiovascular Medicine Author Type: Nurse Practitioner Type: Progress Notes Filed: 12/27/2024 09:43 Note Text: [facility] [place] [facility] Rayo Department of Cardiovascular Medicine SECTION OF [facility] Progress Note Elements of this note, [...] MD Consulting Physician: Liam Smith MD Primary Saddle And Side Wire Stitcher: SERVICE DATE: December 27, 2024 Interval History: Patient seen and examined sitting up in bed - son at bedside Patient with no cardiac complaints this AM Patient [place] Overall improved since admission Discharge was held [...] mg daily and Toprol 25 mg daily WIRELESS SALES REPRESENTATIVE >> home meds continued on admission - [...] Dr. Matthews and nursing staff. Lidia Armenta APRN.ASSOCIATE PROFESSOR OF EDUCATION 12/27/2024 7:36 AM PAST MEDICAL HISTORY PAST [...] HEENT: EOM's intact (more content not included)... [facility] 12-26-2024 Note HNO ID: [id number] Author: LIAM SMITH MD Service: General Internal [...] -- 12/24/24 1830 activity - mobilize [place] ([place] VTE Prophylaxis: VTE prophylaxis appropriate SIGNATURE: Liam Smith MD PATIENT NAME: Na Good DATE: December 26, 2024 TIME: 1:54 PM [facility] 12-25-2024 Note HNO ID: [id number] Author: CATHLEEN THOMAS LSW Service: Care Management Author Type: Marine Propulsion Technician Type: Care Mgt Initial Assessment Filed: [...] Practice Potential Transition Plans Other: See Comment ([facility]) Advance Directives Current Advance Directive: Health Care Power of Final Assembler Boat In Chart: No Tool And Die Maker Attempted to Assist with AD Completion: Yes Action: Other: See Comment (Asked RN at [facility] to fax to dept.) Current Living Arrangements and Support Lives with: Alone Type of Residence: Assisted Living Facility Does the patient have to climb stairs at home?: No Care Facility Name: [facility] Support: Children, Family members How do you manage to accomplish the following: Independent: Dress, Going to the bathroom Needs Assistance: Ambulation, Bathe/Shower, Meals/Meal Prep, Medication Management Dependent: Transportation to appointments/community Current Services/Equipment Current Post-Acute Service(s): DME Current DME Type: Other: See Comment (walking sticks) Discharge Planning Patient Goal(s): General wellness [place] Explained: [place] of [place] Given: Yes Level of Care Discussed: Other: See Comment ([facility]) Are you interested in bedside delivery of your medications? No Discharge Planning Participant(s): Patient, Other person(s) Name/Relationship: RN from [facility] Patient/Family Comments: Caregiver Assessment: Caregiver is ready, willing and able to meet the patient's needs as recommended by the inter-professional team: Yes Name of Caregiver: [facility] Transport at Discharge: Transportation Arrangements: Ambulance Transportation Agency and Phone #:: [facility] [phone] Needs Prior to Discharge: Needs Prior to Discharge: To Be Determined, Discharge Transportation, Other: See Comment, OT/PT Evaluation (medical clearance) Post-Acute Discharge Plan: EMR reviewed. CMSW called and spoke to RN at [facility]; introduced self/role. RN states that she will fax dept POA paperwork. Patient is an 89 year old female who presents with acute on chronic congestive heart failure with PMH of chf (per chart review -July 2024 EF 28%), LV thrombus (eliquis), HTN, tremors, macular degeneration, CAD, [place], and insomnia. RN states that they patient uses [facility] for medications but is unable to confirm which location. Patient uses walking sticks for ambulation and is not active with any skilled services WIRELESS SALES REPRESENTATIVE. Patient is from with [facility] and needs assistance with ADLs. MMT to transport at discharge. Patient is safe and has her needs met. CM assigned will continue to follow for discharge needs. Updated 10:22 am: CMSW met with the patient and patient's daughter, Janelle, at bedside to confirm discharge plan of patient returning to [facility] at discharge; her son will transport her. SIGNATURE: DALILA Salinas PATIENT NAME: Na Good DATE: December 25, 2024 TIME: 9:19 AM [facility] 09-21-2020 Miscellaneous Notes Na called for a refill Pending Prescriptions: Disp Refills lisinopriL (PRINIVIL,ZESTRIL) 20 MG andobl42 tab*3 Sig: Take 1 (one) tablet (20 [...] 07/28/2020 Upcoming appt 01/31/2021 Please send to [facility] - [address] [phone] [facility] [place] [id number] - [place], [place] - [address] [facility] [address] [facility] [id number] Please advise documented in this encounter [facility] 11-09-2017 Telephone encounter Note Second VM left for pt. [facility] 11-09-2017 Miscellaneous Notes Second VM left for pt. Left pt a VM asking her to give our office a call back in regard to a medication refill request that we received. Medication requested; lisinopril 20 mg tab. documented in this encounter [facility] 11-07-2017 Telephone encounter Note Left pt a VM asking her to give our office a call back in regard to a medication refill request that we received. Medication requested; lisinopril 20 mg tab. [facility] Evaluation note Diagnosis Benign essential hypertension Essential hypertension, benign Chronic combined systolic and diastolic congestive heart failure (HCC) Insomnia, unspecified type documented in this encounter [facility] Assessments Diagnosis Essential hypertension - Ana [...] another for noisy times like a dinner green party in a restaurant. You can change [...] also different styles of hearing aids. A nglsgm-toe-uvj (BTE) hearing aid connects to a plastic [...] be replaced as the child grows. An wl-ego-pkxrs (ITC) hearing aid fits into the ear [...] can go to your doctor or an commercial review appraiser. He or she will do a hearing test and help you decide which type and style of hearing aid may be best for you. But, if your hearing loss is mild to moderate, you might consider buying a good quality glot-ooi-micgctd hearing aid, which may be called a [...] Log into your personal health record on [email or web address] and enter K597 in the "Education" box to learn more about "Learning About Hearing Aids." Current as of: February 10, 2018 Content Version: 12. [employer]. Care instructions adapted under license by your healthcare professional. If you have questions about a medical condition or this instruction, always ask your healthcare professional. [employer] disclaims any warranty or liability for your use of this information. documented in this encounter* Patient Instructions* Danii Chen RN - 01/13/2019 10:29 AM EDT .How to contact your Care Team: Provider: Rubin Chirinos MD [facility] Nurse: Danii Chen RN In case of an emergency please call 911. REFILLS: When in need for refills please call your care team or the office at [phone]. Please include medication name, pharmacy name, and [...] your Care Team: Provider: Rubin Chirinos MD [facility] Nurse: Danii Chen RN documented in [...] FoundDocuments on File Type Date Recorded Patient Surfacer Expl anation Advance Directives and Living Will Documents on File Type Date Recorded Patient Surfacer Expl anation Advance Directives and Living Will Documents on File Type Date Recorded Patient Surfacer Expl anation Advance Directives and Livin g Will 02/03/2020 12:00 AM Documents on File Type Date Recorded Patient Surfacer Expl anation Advance Directives and Livin g [...] Marcelo AuD - 12/04/2018 11:34 AM EDT [facility] [address] [place] [address] Name: Na Good : 1935 Date: 12/04/18 [...] for hearing aid use at Dr. Arce's discretion.[place] for hearing aid fitting pending otologic clearance at patient's discretion. Use of good communication strategies such as snfw-zo-oach communication and reduction of background noise when [...] and external ear canal shape. CPT code 67995.50. With the patient in a slightly reclained [...] review the comprehensive hearing test results in [facility] and provided an interpretation to the patient. Indeed it confirmed ZENA symmetric down slopping increase of the WIRELESS SALES REPRESENTATIVE thresholds, normal Type A tympanograms and decreased speech discrimination. 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 Information on the devices and referral to the commercial review appraiser arranged. Assessment/Plan: Bilateral symmetric mild sensorineural hearing [...] 01/13/2019 11:50 AM EDT OFFICE CONSULTATION NOTE [facility] [address] ([address]) [facility] [address] [facility] [id number] Physicians: David Ludwig MD Subjective: Na Good [...] 01/15/2020 3:33 PM EDT OFFICE CONSULTATION NOTE [facility] [address] ([address]) [facility] [address] [facility] [phone] Physicians: David Ludwig MD Subjective: [...] Problems Addressed: Problem Chf (Congestive Heart Failure) ([facility]) Sees Dr. Chirinos yearly. Mixed Hyperlipidemia Left [...] Directive (Living Will and/or Durable Power of Final Assembler Boat for Health Care)?: Yes What is your [...] conjunction with the immunization order to satisfy [place] Board of Pharmacy Positive ID requirements for [...] week Gets together: Twice a week Attends methodist service: Not on file Active member of [...] [employer] (DME) [facility] - [address] [facility] [address] [facility] [address] [facility] - [place], [place] - [address] [facility] [address] [place] [address] [facility] [address] Objective Blood pressure 133/70, pulse 98, temperature [...] Diagnoses Presbycusis, unspecified laterality Oscar Mendes MD [address] [place] [address] Ceasar Arce MD [address] [place] [address] Status Reason Specialty Diagnoses / Procedures Referred By Contact Referred To Contact Pending Review Cardiology Diagnoses Bruit of left carotid artery Procedures Ultrasound doppler carotid Rubin Chirinos MD [address] [place] [address] Additional Source Comments Assessment & Plan Note [...] decompensated heart failure in the clinic today. [place] [employer] functional class I-II. She is [...] section and content) DATE CREATED AUTHOR 04/01/[address] [facility] DATE CREATED AUTHOR AUTHOR'S ORGANIZ ATION 02/04/2020 [facility] DATE CREATED AUTHOR AUTHOR'S ORGANIZ ATION 01/15/2021 [facility] DATE CREATED AUTHOR AUTHOR'S ORGANIZ ATION 03/03/2025 [facility] DATE CREATED AUTHOR AUTHOR'S ORGANIZ ATION 03/05/2025 [facility] DATE CREATED AUTHOR AUTHOR'S ORGANIZ ATION 03/05/2025 [facility] Reason for Visit (unrecogniz ed section and content) Reason Comments Congestive Heart Failure Hypertension Hyperlipidemia Reason Comments Hearing Loss Pt req to see Dr JIGNESH Aguilar PT Status Reason Specialty Diagnoses / Procedures Referred By Contact Referred To Contact Closed Otolaryngology Diagnoses Presbycusis, unspecified laterality Oscar Mendes MD [facility] [place] [address] Ceasar Arce MD [address] [facility] [address] [place] [address] Reason Comments Medicare Wellness Visit VM to schedule M W Status Reason Specialty Diagnoses / Procedures Referred By Contact Referred To Contact Closed Specialty Services Required/Patient' s Best Interest Audiology Diagnoses Sudden hearing loss, unspecified laterality Ceasar Arce MD [address] [facility] [address] [place] [id number] Kriss Marcelo AuD Reason Comments Hearing Loss left ear Reason Comments Follow-up Denies Chest pain,pr essure,SOB,Swelling Reason Comments Hypertension Hyperlipidemia Hypothyroidism Reason Comments Follow-up yearly Status Reason Specialty Diagnoses / Procedures Referred By Contact Referred To Contact Pending Review Cardiology Diagnoses Bruit of left carotid artery Procedures Ultrasound doppler carotid Rubin Chirinos MD [address] [place], [place] [address] [address] Reason Onset Date Comments Medicare Wellness Visit Fall Risk Screening 12/08/2019 Reason Comments Hypertension Hyperlipidemia Congestive Heart Failure Reason Onset Date Comments Medication Refill 09/21/2020 Reason Comments Medication Refill Care Teams (unrecognized sec tion and content) [employer] Relationship Specialty Start Date End Date Mary Anika VERONICA Joe PCP - General Nurse Practitioner 06/15/17 11/28/17 David Ludwig MD PCP - General Family Medicine 11/29/17 David Ludwig MD [address] [place] [id number] PCP - [facility] Attributed Provider 07/22/20 04/22/21 FOR RECORDS PERTAINING [...] BE BASED ON THE PRIMARY CLINICAL RECORDS. [employer] provides no warranty or guarantee of the accuracy or completeness of information in this document.
[2025-03-30 08:17] LABS: Hematocrit 41.7 % (37-47); Hemoglobin 13.5 g/dL (12.0-15.0); Mean Corp Hgb Conc 32.4 g/dL (32-36); Mean Corpuscular Volume 91.6 fL (81-99); Mean Platelet Vol. 11.3 fl (6.2-12.0); Platelet Count 371 K/mm3 (150-450); RBC Distribution Width CV 16.6 % (11.6-14.6); RBC Distribution Width SD 56.1 fl (35.1-43.9); Red Blood Count 4.55 M/mm3 (4.2-5.4); White Blood Count 9.3 K/mm3 (4.4-11.0)
[2025-03-30 08:42] LABS: AST(SGOT) 30 U/L (<=31); Alanine Aminotransfer ALT/SGPT 21 U/L (<=34); Albumin, Serum 3.2 g/dL (3.4-4.8); Alkaline Phosphatase 40 U/L (35-104); Anion Gap 6 (5-15); BUN 36 mg/dL (4-19); BUN/Creat Ratio 44.6 RATIO (10-20); Calcium,Total 9.0 mg/dL (7.6-11.0); Carbon Dioxide 28.9 mmol/L (21.0-32.0); Chloride 108 mmol/L (98-108); Globulin 2.3 g/dL (2.2-4.2); Glucose 84 mg/dL (70-99); Potassium 4.5 mmol/L (3.3-5.1)
== END ==
LOC: OLS.ACH2 05:00
PROVIDERS: Visit Provider Internal Medicine
DX: I50.22 Chronic systolic (congestive) heart failure (principal)
CPT/HCPCS: 36415; 80053; 85027

== ENCOUNTER → 2025-04-04 11:15 | Outpatient (REF) | payer MEDICARE, OTHER, SELFPAY ==
[2025-04-04 12:04] LABS: Mucous, Urine 0 SEEN /hpf (<or=2+); Red Blood Cells-Urine 0 SEEN /hpf (0-5)
--- OUTSIDE RECORDS SUMMARY | 2025-04-04 12:07 | XMS RPT_ITS | CCD ---
Author Organization [facility] Care Team Providers Care Tour Guide Name Role Phone Anika Hernandez Unavailable Unavailable [...] Corticosteroids (1 source) Cortisone Drug Allergy [facility] (20 sources) cortisone; Translations: [CORTISONE] Propensity to adverse reactions to drug [facility] Work Phone: Medications Current Medications Medication [...] (two) times a day. Active Flu Vaccine [id number](65yr Up)(Pf)180 McG/0.5 Ml Intramuscular Syringe (1 source) Start: 12-27-2017 End: 12-27-2017 flu vaccine tv 2017, 65yr up,,PF, (FLUZONE HIGH DOSE) syringe Indications: Need for influenza vaccination Sign this order in conjunction with the immunization order to satisfy [place] [employer] Positive ID requirements for [...] [Moles/Vol] 13 mmol/L Normal 8-[address] [facility] Comment on above: Order Comment: Speci men Type: BLOOD SPECIMENOrdering Facility: [facility] Address: [address] [place] [address] [place] [address] Performed By: #### 1 9123-9, 80567-2, 21758-8 ####[facility] LABORATORYCLIA [id number] [place] [address] [place] Calcium [Mass/Vol] 9.1 mg/dL Normal 8.5-10.2 [facility] Comment on above: Order Comment: Speci men Type: BLOOD SPECIMENOrdering Facility: [facility] Address: [address] [place] [address] Performed By: #### 1 9123-9, 09292-3, 04127-1 ####BAIRD LABORATORYCLIA [id number] [place] [address] [place] Chloride [Moles/Vol] 98 mmol/L Normal 98-107 [facility] Comment on above: Order Comment: Speci men Type: BLOOD SPECIMENOrdering Facility: [facility] Address: [address] [place] [address] Performed By: #### 1 9123-9, 69305-4, 02123-3 ####[facility] LABORATORYCLIA [id number] [place] [address] [place] CO2 [Moles/Vol] 25 mmol/L Normal 22-30 [facility] Comment on above: Order Comment: Speci men Type: BLOOD SPECIMENOrdering Facility: [facility] Address: [address] [place] [address] Performed By: #### 1 9123-9, 14670-6, 88256-3 ####[facility] LABORATORYCLIA [id number] [place] [address] [place] Creatinine [Mass/Vol] 0.93 mg/dL Normal 0.58-0.[address] [facility] Comment on above: Order Comment: Speci men Type: BLOOD SPECIMENOrdering Facility: [facility] Address: [address] [place] [address] Performed By: #### 1 9123-9, 03762-1, 81422-7 ####[facility] LABORATORYCLIA [id number] [place] [id number] [place] eGFRcr SerPlBld CKD-EPI 2020 59 mL/min/1.73m??? Low >=60 [facility] Comment on above: Order Comment: Speci men Type: BLOOD SPECIMENOrdering Facility: [facility] Address: [address] [place] [address] Result Comment: Radha mated Glomerular Filtration Rate [...] actual GFR. Performed By: #### 1 9123-9, 63812-4, 03397-5 ####[facility] LABORATORYCLIA [id number] [place] [id number] [place] Glucose [Mass/Vol] 93 mg/dL Normal 74-99 [facility] Comment on above: Order Comment: Vita florez Type: BLOOD SPECIMENOrdering Facility: [facility] Address: [address] [place], [place] [id number] Result Comment: The [place] Diabetes Association (ADA) provides guidance for cutoff [...] Standards of Medical Care in Diabetes 2016, [place] [employer]. Diabetes Care. 2016.39(Suppl 1). Performed By: #### 1 9123-9, 33596-2, 42148-8 ####[facility] LABORATORYCLIA [id number] [place] [id number] [place] Potassium [Moles/Vol] 4.1 mmol/L Normal 3.7-5.[address] [facility] Comment on above: Order Comment: Vita florez Type: BLOOD SPECIMENOrdering Facility: [facility] Address: [address] [place] [address] Performed By: #### 1 9123-9, 30191-1, 49487-9 ####[facility] LABORATORYCLIA [id number] [place] [address] [place] Sodium [Moles/Vol] 136 mmol/L Normal 136-144 [facility] Comment on above: Order Comment: Speci men Type: BLOOD SPECIMENOrdering Facility: [facility] Address: [address] [place] [address] Performed By: #### 1 9123-9, 35666-5, 66532-7 ####BAIRD LABORATORYCLIA [id number] [address] STATES [facility] Urea nitrogen [Mass/Vol] 29 mg/dL High 7-21 [facility] Comment on above: Order Comment: Speci men Type: BLOOD SPECIMENOrdering Facility: [facility] Address: [address] [place] [address] Performed By: #### 1 9123-9, 73303-2, 27643-2 ####BA[facility] LABORATORYCLIA [id number] [address] [place] CBC panel Auto (Bld)on 03-04 Erythrocyte distribution width (RBC) [Ratio] 16.9 % High 11.5-15.0 [facility] Comment on above: Order Comment: Speci men Type: BLOOD SPECIMENOrdering Facility: [facility] Address: [address] [place] [address] Performed By: #### 5 8410-2 ####BA[facility] LABORATORYCLIA [id number] [address] [place] Hematocrit (Bld) [Volume fraction] 42.7 % Normal 36.0-46.0 [facility] Comment on above: Order Comment: Speci men Type: BLOOD SPECIMENOrdering Facility: [facility] Address: [address] [place] [address] Performed By: #### 5 8410-2 ####BA[facility] LABORATORYCLIA [id number] [address] Hemoglobin (Bld) [Mass/Vol] 14.1 g/dL Normal 11.5-15.5 [facility] Comment on above: Order Comment: Speci men Type: BLOOD SPECIMENOrdering Facility: [facility] Address: [address] [place] [address] Performed By: #### 5 8410-2 ####BA[facility] LABORATORYCLIA [id number] [address] MCH (RBC) [Entitic mass] 28.9 pg Normal 26.0-34.0 [facility] Comment on above: Order Comment: Speci men Type: BLOOD SPECIMENOrdering Facility: [facility] Address: [address] [place] [address] Performed By: #### 5 8410-2 ####BA[facility] LABORATORYCLIA [id number] [address] MCHC (RBC) [Mass/Vol] 33.0 g/dL Normal 30.5-36.[address] [facility] Comment on above: Order Comment: Speci men Type: BLOOD SPECIMENOrdering Facility: [facility] Address: [address] [place] [address] Performed By: #### 5 8410-2 ####BA[facility] LABORATORYCLIA [id number] [address] MCV (RBC) [Entitic vol] 87.5 fL Normal 80.0-100.0 [facility] Comment on above: Order Comment: Speci men Type: BLOOD SPECIMENOrdering Facility: [facility] Address: [address] [place] [address] Performed By: #### 5 8410-2 ####[facility] LABORATORYCLIA [id number] [address] Nucleated RBC (Bld) [#/Vol] 10*3/uL Normal <0.01 [facility] Comment on above: Order Comment: Speci men Type: BLOOD SPECIMENOrdering Facility: [facility] Address: [address] [place] [address] Performed By: #### 5 8410-2 ####BA[facility] LABORATORYCLIA [id number] [address] Platelet mean volume (Bld) [Entitic vol] 10.4 fL Normal 9.0-12.7 [facility] Comment on above: Order Comment: Speci men Type: BLOOD SPECIMENOrdering Facility: [facility] Address: [address] [place] [address] Performed By: #### 5 8410-2 ####BA[facility] LABORATORYCLIA [id number] [address] [place] Platelets (Bld) [#/Vol] 337 10*3/uL Normal 150-400 [facility] Comment on above: Order Comment: Speci men Type: BLOOD SPECIMENOrdering Facility: [facility] Address: [address] [place] [address] Performed By: #### 5 8410-2 ####[facility] LABORATORYCLIA [id number] [place] [address] [place] RBC (Bld) [#/Vol] 4.88 10*6/uL Normal 3.90-5.20 [facility] Comment on above: Order Comment: Speci men Type: BLOOD SPECIMENOrdering Facility: [facility] Address: [address] [place] [address] Performed By: #### 5 8410-2 ####[facility] LABORATORYCLIA [id number] [address] WBC (Bld) [#/Vol] 12.10 10*3/uL High 3.70-11.00 [facility] Comment on above: Order Comment: Speci men Type: BLOOD SPECIMENOrdering Facility: [facility] Address: [address] [place] [address] Performed By: #### 5 8410-2 ####[facility] LABORATORYCLIA [id number] [address] [place] Magnesium SerPl-mCncon 03-04 Magnesium [Mass/Vol] 2.3 mg/dL Normal 1.7-2.3 [facility] Comment on above: Order Comment: Speci men Type: BLOOD SPECIMENOrdering Facility: [facility] Address: [address] [place] [address] Performed By: #### 1 9123-9, 92696-5, 19619-2 ####[facility] LABORATORYCLIA [id number] [address] [place] NT-proBNP SerPl-mCncon 03-04 Natriuretic peptide.B prohormone N-Terminal [Mass/Vol] 76704 pg/mL High <450 [facility] Comment on above: Order Comment: Speci men Type: BLOOD SPECIMENOrdering Facility: [facility] Address: [address] [place] [id number] Performed By: #### 1 9123-9, 15460-9, 78909-8 ####[facility] LABORATORYCLIA [id number] [address] THERAPY NTon 03-04-2025 THERAPY NT HNO ID: [id number] Author: PEYTON MARX RRT Service: Respiratory Therapy Author Type: Registered Resp Therapist Type: Therapy (PT/OT/Speech/Resp) Filed: 03/04/2025 23:46 Note Text: RESPIRATORY THERAPY PROGRESS NOTE SERVICE DATE: 03/04/2025 SERVICE TIME: 2336 Overnight Trending Pulse ox. study stopped. Pt is refusing pulse ox on finger. RN and ORACLE MANUFACTURING CONSULTANT aware SIGNATURE: Peyton Marx RRT PATIENT NAME: Na Good DATE: March 04, 2025 TIME: 11:45 PM PAGER/CONTACT #: Normal [facility] THERAPY NT HNO ID: [id number] Author: KRISS ZAMORA PT, DPT Service: Physical Therapy Author Type: Physical Therapist Type: Therapy (PT/OT/Speech/Resp) Filed: 03/04/2025 14:04 Note Text: Summary: PT evalaution Physical Therapy Evaluation Summary SERVICE DATE: 03/04/2025 SERVICE TIME: 1344 to 1356 ROOM: [id number] PT 6 Clicks Score: 18 DISCHARGE RECOMMENDATIONS Home PT Recommended Discharge Disposition Comments: at [facility] Anticipated Discharge Needs: Physical Assist at Home, Supervision at Home Physical Assist at Home for: Cleaning, Laundry, Meals, Medication Management, Shopping, Transportation, Self Care, Transfers Supervision at Home due to: Other: See Comment (for safety) ASSESSMENT Response to Therapy Interventions: Good Participation in Activities Pt tolerated mobility well with ww, uses walking sticks (2) normally. Would be appropriate to return home to [facility] with previous level of assist and home PT. PRECAUTIONS Bed/Chair Alarm, Fall Risk, Lines/Tubes/Drains CURRENT HOSPITAL COURSE Patient presents with SOB, admitted for acute on chronic CHF Relevant Past Medical History: ASCVA, CAD, CHF, HTN, insomnia, LV mural thrombus, tremor, cardiomyopathy HOME LIVING Patient Lives With: Facility Care, Other: See Comment Comments: [facility] Assistance Available: 24-Hour Entry To Home: No [...] DATE: March 04, 2025 TIME: 2:04 PM [facility] THERAPY NT HNO ID: [id number] Author: CAROLE HUGHES OT/Amy Service: Occupational Therapy Author Type: Occupational Therapist Type: Therapy (PT/OT/Speech/Resp) Filed: 03/04/2025 11:59 Note Text: Summary: OT Evaluation Occupational Therapy Evaluation Summary SERVICE DATE: 03/04/2025 SERVICE TIME: 1119 to 1152 ROOM: [id number] OT 6 Clicks Score: 18 DISCHARGE RECOMMENDATIONS [...] SOB, SpO2 >93% throughout, pt is extremely [place] with baseline visual impairments, appears to be near baseline with ADLs, eager to return to [facility] PRECAUTIONS Bed/Chair Alarm, Fall Risk, Lines/Tubes/Drains CURRENT HOSPITAL COURSE Patient presents with SOB, admitted for acute on chronic CHF Relevant Past Medical History: ASCVA, CAD, CHF, HTN, insomnia, LV mural thrombus, tremor, cardiomyopathy HOME LIVING Patient Lives With: Facility Care, Other: See Comment Comments: [facility] Assistance Available: 24-Hour Entry To Home: No [...] pt is eager to return home to [facility] COGNITION Orientation Deficits: (AOx4) Responsiveness: Alert, Awake Follows Commands: 3-step Commands THERAPY DIAGNOSIS Reduced mobility-other, Decreased activities of daily living (ADL), Muscle Weakness (generalized) TREATMENT INTERVENTIONS Evaluation, Self Mcfp Management (40283) Timed Code Treatment (minutes): 18 Skilled Treatment Time (minutes): 33 TRAINING AND EDUCATION PROVIDED Activity Adaptation/Ibm Websphere Commerce Consultant y Strategies, Adaptive Equipment/DME, Bed Mobility, Benefits of In-Hospital Mobility, Cognitive Skills, Command Following, Discharge Planning, Expected Functional Level, Functional Mobility Involving ADLs, Insight into Deficits, Orientation, Memory/Attention, Positioning, Safety/Judgment, Role of Occupational Therapy, Sitting Balance to Improve Treadwell with ADLs/Self-Care, Standing Balance to Improve [place]read[place] with ADLs/Self-Care, Transfer - Sit to Stand [...] Chair Toilet/Commode (more content not included)... Normal [facility] Basic metabolic 2000 panelon 03-03-2025 Anion gap [Moles/Vol] 13 mmol/L Normal -[address] [facility] Comment on above: Order Comment: Speci men Type: BLOOD SPECIMENOrdering Facility: [facility] Address: [address] [place] [address] Performed By: #### 2 4321-2, 28881-0 ####BA[facility] LABORATORYCLIA [id number] [place] [address] [place] Calcium [Mass/Vol] 9.6 mg/dL Normal 8.5-10.2 [facility] Comment on above: Order Comment: Speci men Type: BLOOD SPECIMENOrdering Facility: [facility] Address: [address] [place] [address] Performed By: #### 2 4321-2, ####BA[facility] LABORATORYCLIA [id number] [place] [address] [place] Chloride [Moles/Vol] 99 mmol/L Normal 98-107 [facility] Comment on above: Order Comment: Speci men Type: BLOOD SPECIMENOrdering Facility: [facility] Address: [address] [place] [address] Performed By: #### 2 4321-2, ####BA[facility] LABORATORYCLIA [id number] [place] [address] [place] CO2 [Moles/Vol] 25 mmol/L Normal 22-30 [facility] Comment on above: Order Comment: Speci men Type: BLOOD SPECIMENOrdering Facility: [facility] Address: [address] [place] [address] Performed By: #### 2 4321-2, ####BA[facility] LABORATORYCLIA [id number] [place] [address] [place] Creatinine [Mass/Vol] 1.05 mg/dL High 0.58-0.[address] [facility] Comment on above: Order Comment: Speci men Type: BLOOD SPECIMENOrdering Facility: [facility] Address: [address] [place] [id number] Performed By: #### 2 4321-2, ####BAIRD LABORATORYCLIA [id number] [address] [place] eGFRcr SerPlBld CKD-EPI 2020 51 mL/min/1.73m??? Low >=60 [facility] Comment on above: Order Comment: Speci men Type: BLOOD SPECIMENOrdering Facility: [facility] Address: [address] [place] [address] Result Comment: Radha mated Glomerular Filtration Rate [...] actual GFR. Performed By: #### 2 432-, ####[facility] LABORATORYCLIA [id number] [place] [address] [place] Glucose [Mass/Vol] 100 mg/dL High 74-99 [facility] Comment on above: Order Comment: Vita florez Type: BLOOD SPECIMENOrdering Facility: [facility] Address: [address] [place] [address] Result Comment: The [place] Diabetes Association (ADA) provides guidance for cutoff [...] Standards of Medical Care in Diabetes 2016, [place] Diabetes Association. Diabetes Care. 2016.39(Suppl 1). Performed By: #### 2 4320-05, ####[facility] LABORATORYCLIA [id number] [place] [address] [place] Potassium [Moles/Vol] 4.1 mmol/L Normal 3.7-5.[address] [facility] Comment on above: Order Comment: Vita florez Type: BLOOD SPECIMENOrdering Facility: [facility] Address: [address] [place] [id number] Performed By: #### 2 432-, ####[facility] LABORATORYCLIA [id number] [place] [address] [place] Sodium [Moles/Vol] 137 mmol/L Normal 136-144 [facility] Comment on above: Order Comment: Speci men Type: BLOOD SPECIMENOrdering Facility: [facility] Address: [address] [place] [address] [place] [address] Performed By: #### 2 4321-2, 70322-0 ####BA[facility] LABORATORYCLIA [id number] [address] [place] Urea nitrogen [Mass/Vol] 30 mg/dL High 7-21 [facility] Comment on above: Order Comment: Speci men Type: BLOOD SPECIMENOrdering Facility: [facility] Address: [address] [place] [address] Performed By: #### 2 432-2, ####BA[facility] LABORATORYCLIA [id number] [address] [place] CBC panel Auto (Bld)on 03-03 Erythrocyte distribution width (RBC) [Ratio] 17.2 % High 11.5-15.0 [facility] Comment on above: Order Comment: Speci men Type: BLOOD SPECIMENOrdering Facility: [facility] Address: [address] [place] [address] Performed By: #### 5 8410-2 ####BA[facility] LABORATORYCLIA [id number] [address] [place] Hematocrit (Bld) [Volume fraction] 41.9 % Normal 36.0-46.0 [facility] Comment on above: Order Comment: Speci men Type: BLOOD SPECIMENOrdering Facility: [facility] Address: [address] [place] [address] Performed By: #### 5 8410-2 ####BA[facility] LABORATORYCLIA [id number] [address] [place] Hemoglobin (Bld) [Mass/Vol] 13.9 g/dL Normal 11.5-15.5 [facility] Comment on above: Order Comment: Speci men Type: BLOOD SPECIMENOrdering Facility: [facility] Address: [address] [place] [address] Performed By: #### 5 8410-2 ####BA[facility] LABORATORYCLIA [id number] [address] MCH (RBC) [Entitic mass] 29.3 pg Normal 26.0-34.0 [facility] Comment on above: Order Comment: Speci men Type: BLOOD SPECIMENOrdering Facility: [facility] Address: [address] [place] [address] Performed By: #### 5 8410-2 ####BA[facility] LABORATORYCLIA [id number] [address] MCHC (RBC) [Mass/Vol] 33.2 g/dL Normal 30.5-36.[address] [facility] Comment on above: Order Comment: Speci men Type: BLOOD SPECIMENOrdering Facility: [facility] Address: [address] [place] [address] Performed By: #### 5 8410-2 ####BA[facility] LABORATORYCLIA [id number] [address] MCV (RBC) [Entitic vol] 88.4 fL Normal 80.0-100.0 [facility] Comment on above: Order Comment: Speci men Type: BLOOD SPECIMENOrdering Facility: [facility] Address: [address] [place] [address] Performed By: #### 5 8410-2 ####BA[facility] LABORATORYCLIA [id number] [address] Nucleated RBC (Bld) [#/Vol] 10*3/uL Normal <0.01 [facility] Comment on above: Order Comment: Speci men Type: BLOOD SPECIMENOrdering Facility: [facility] Address: [address] [place] [address] Performed By: #### 5 8410-2 ####[facility] LABORATORYCLIA [id number] [address] Platelet mean volume (Bld) [Entitic vol] 10.9 fL Normal 9.0-12.7 [facility] Comment on above: Order Comment: Speci men Type: BLOOD SPECIMENOrdering Facility: [facility] Address: [address] [place] [address] Performed By: #### 5 8410-2 ####[facility] LABORATORYCLIA [id number] [address] Platelets (Bld) [#/Vol] 366 10*3/uL Normal 150-400 [facility] Comment on above: Order Comment: Speci men Type: BLOOD SPECIMENOrdering Facility: [facility] Address: [address] [place] [address] Performed By: #### 5 8410-2 ####[facility] LABORATORYCLIA [id number] [address] OF [facility] RBC (Bld) [#/Vol] 4.74 10*6/uL Normal 3.90-5.20 [facility] Comment on above: Order Comment: Speci men Type: BLOOD SPECIMENOrdering Facility: [facility] Address: [address] [place] [address] Performed By: #### 5 8410-2 ####[facility] LABORATORYCLIA [id number] [address] WBC (Bld) [#/Vol] 12.19 10*3/uL High 3.70-11.00 [facility] Comment on above: Order Comment: Speci men Type: BLOOD SPECIMENOrdering Facility: [facility] Address: [address] [place] [address] Performed By: #### 5 8410-2 ####[facility] LABORATORYCLIA [id number] [place] [id number] [facility] CONSULTon 03-03-2025 CONSULT HNO ID: [id number] Author: LIDIA ARMENTA APRN.FIBERGLASS FINISHER Service: Cardiovascular Medicine Author Type: Nurse Practitioner [...] 1+ MR, trace TR, 1-2+ AR, trace IN, mid ascending 3 cm, trivial Pericardial effusion [...] 03/03/2025 Time: 10:30 AM [facility] [place] Domenic Rayo Department of Cardiovascular Medicine SECTION OF [facility] Consultation Note Name: Na Good : 1935 Primary Physician: Alexey Vinson Sr, DO Consulting Physician: Bismark Sales MD Primary Professor Of Political Science: SERVICE DATE: March 03, 2025 REASON FOR [...] to her from the staff at the [facility]. She is short of breath with [...] - GD (more content not included)... Normal [facility] Magnesium SerPl-mCncon 03-03 Magnesium [Mass/Vol] 2.6 mg/dL High 1.7-2.3 [facility] Comment on above: Order Comment: Speci men Type: BLOOD SPECIMENOrdering Facility: [facility] Address: [address] [place] [address] Performed By: #### 2 4321-2, 77178-3 ####[facility] LABORATORYCLIA [id number] [place] [address] [facility] [place] NURSING PROGon 03-03-2025 NURSING PROG HNO ID: [id number] Author: ESCOBAR BRAXTON RN Service: Nursing Author Type: Registered Nurse Type: Nursing Progress Note Filed: 03/03/2025 15:19 Note Text: PATIENT EDUCATION HEART FAILURE PATIENT NAME: Na Good PATIENT LOCATION: [place] [address]/[place] [address] SURVIVAL SKILLS: Low Sodium Diet Weight Monitoring [...] family, Lucero, is at bedside. Pt is [place] and does not have her hearing aids. Friend states she resides at [facility] and gets medications and all meals provided. All of pt's children reside out of state, however, one of her children comes in each month to visit. Heart Failure Zones and handouts relating to survival skills left at bedside. Friend states pt's daughter will be here tomorrow or . Contact information in folder. Electronically Signed By: Escobar Braxton [facility] ALLIED HEALTHon 03-02-2025 ALLIED HEALTH HNO ID: [id number] Author: ALEX VENTURA CT Service: Radiology Author [...] PATIENT PRESENTS WITH AN IMPLANTABLE OR ATTACHED TEXTILE CONSERVATOR: No RADIOLOGY DEPARTMENT: General X-ray: Exam(s) Completed: Chest X-Ray PERIPHERAL IV DATA: Not applicable SIGNED BY: LAUREL Powell March 02, 2025 2:37 PM [facility] ALT SerPl-cCncon 03-02-2025 ALT [Catalytic activity/Vol] 45 U/L High 7-38 [facility] Comment on above: Order Comment: Vita florez Type: BLOOD SPECIMENOrdering Facility: [facility] Address: [address] [place] [address] Performed By: #### 1 920-8, [id number], 1741-09, 3015-06, 1987-08 ####[facility] LABORATORYCLIA [id number] [place] [address] [place] AST SerPl-cCncon 03-02-2025 AST [Catalytic activity/Vol] 52 U/L High 13-35 [facility] Comment on above: Order Comment: Vita florez Type: BLOOD SPECIMENOrdering Facility: [facility] Address: [address] [place] [address] Performed By: #### 1 920-8, [id number], 1746, 3015-06, 1987-08 ####BAIRD LABORATORYCLIA [id number] [place] [address] [place] CBC W Auto Differential pane l (Bld)on 03-02-2025 Basophils (Bld) [#/Vol] 0.06 10*3/uL Normal <0.11 [facility] Comment on above: Order Comment: Speci men Type: BLOOD SPECIMENOrdering Facility: [facility] Address: [address] [place] [address] Performed By: #### 5 7021-8 ####BA[facility] LABORATORYCLIA [id number] [place] [address] [place] Basophils/100 WBC (Bld) 0.5 % Normal [facility] Comment on above: Order Comment: Speci men Type: BLOOD SPECIMENOrdering Facility: [facility] Address: [address] [place] [address] Performed By: #### 5 7021-8 ####BA[facility] LABORATORYCLIA [id number] [address] [place] Differential cell count method Nom (Bld) Auto Normal [facility] Comment on above: Order Comment: Speci men Type: BLOOD SPECIMENOrdering Facility: [facility] Address: [address] [place] [address] Performed By: #### 5 7021-8 ####BA[facility] LABORATORYCLIA [id number] [place] [address] [place] Eosinophils (Bld) [#/Vol] 10*3/uL Normal <0.46 [facility] Comment on above: Order Comment: Speci men Type: BLOOD SPECIMENOrdering Facility: [facility] Address: [address] [place] [address] Performed By: #### 5 7021-8 ####BAIRD LABORATORYCLIA [id number] [address] [place] Eosinophils/100 WBC (Bld) 0.1 % Normal [facility] Comment on above: Order Comment: Speci men Type: BLOOD SPECIMENOrdering Facility: [facility] Address: [address] [place] [address] Performed By: #### 5 7021-8 ####BAIRD LABORATORYCLIA [id number] [place] [address] [place] Erythrocyte distribution width (RBC) [Ratio] 17.2 % High 11.5-15.0 [facility] Comment on above: Order Comment: Speci men Type: BLOOD SPECIMENOrdering Facility: [facility] Address: [address] [place] [address] Performed By: #### 5 7021-8 ####BAIRD LABORATORYCLIA [id number] [place] [address] [place] Hematocrit (Bld) [Volume fraction] 42.3 % Normal 36.0-46.0 [facility] Comment on above: Order Comment: Speci men Type: BLOOD SPECIMENOrdering Facility: [facility] Address: [address] [place] [address] Performed By: #### 5 7021-8 ####BAIRD LABORATORYCLIA [id number] [place] [address] [place] Hemoglobin (Bld) [Mass/Vol] 14.1 g/dL Normal 11.5-15.5 [facility] Comment on above: Order Comment: Speci men Type: BLOOD SPECIMENOrdering Facility: [facility] Address: [address] [place] [address] Performed By: #### 5 7021-8 ####BAIRD LABORATORYCLIA [id number] [address] [place] Immature granulocytes (Bld) [#/Vol] 0.07 10*3/uL Normal <0.10 [facility] Comment on above: Order Comment: Speci men Type: BLOOD SPECIMENOrdering Facility: [facility] Address: [address] [place] [address] Performed By: #### 5 7021-8 ####BAIRD LABORATORYCLIA [id number] [address] [place] Immature granulocytes/100 WBC (Bld) 0.6 % Normal [facility] Comment on above: Order Comment: Speci men Type: BLOOD SPECIMENOrdering Facility: [facility] Address: [address] [place] [address] Performed By: #### 5 7021-8 ####BAIRD LABORATORYCLIA [id number] [address] [place] Lymphocytes (Bld) [#/Vol] 1.26 10*3/uL Normal 1.00-4.00 [facility] Comment on above: Order Comment: Speci men Type: BLOOD SPECIMENOrdering Facility: [facility] Address: [address] [place] [address] Performed By: #### 5 7021-8 ####BAIRD LABORATORYCLIA [id number] [address] Lymphocytes/100 WBC (Bld) 10.8 % Normal [facility] Comment on above: Order Comment: Speci men Type: BLOOD SPECIMENOrdering Facility: [facility] Address: [address] [place] [address] Performed By: #### 5 7021-8 ####BAIRD LABORATORYCLIA [id number] [address] MCH (RBC) [Entitic mass] 29.6 pg Normal 26.0-34.0 [facility] Comment on above: Order Comment: Speci men Type: BLOOD SPECIMENOrdering Facility: [facility] Address: [address] [place] [address] Performed By: #### 5 7021-8 ####BAIRD LABORATORYCLIA [id number] [address] MCHC (RBC) [Mass/Vol] 33.3 g/dL Normal 30.5-36.[address] [facility] Comment on above: Order Comment: Speci men Type: BLOOD SPECIMENOrdering Facility: [facility] Address: [address] [place] [address] Performed By: #### 5 7021-8 ####BAIRD LABORATORYCLIA [id number] [address] MCV (RBC) [Entitic vol] 88.9 fL Normal 80.0-100.0 [facility] Comment on above: Order Comment: Speci men Type: BLOOD SPECIMENOrdering Facility: [facility] Address: [address] [place] [address] Performed By: #### 5 7021-8 ####BAIRD LABORATORYCLIA [id number] [place] [address] [place] Monocytes (Bld) [#/Vol] 1.08 10*3/uL High <0.87 [facility] Comment on above: Order Comment: Speci men Type: BLOOD SPECIMENOrdering Facility: [facility] Address: [address] [place] [address] Performed By: #### 5 7021-8 ####BAIRD LABORATORYCLIA [id number] [place] [id number] [place] Monocytes/100 WBC (Bld) 9.3 % Normal [facility] Comment on above: Order Comment: Speci men Type: BLOOD SPECIMENOrdering Facility: [facility] Address: [address] [place] [address] Performed By: #### 5 7021-8 ####BAIRD LABORATORYCLIA [id number] [place] [address] [place] Neutrophils (Bld) [#/Vol] 9.14 10*3/uL High 1.45-7.50 [facility] Comment on above: Order Comment: Speci men Type: BLOOD SPECIMENOrdering Facility: [facility] Address: [address] [place] [address] Performed By: #### 5 7021-8 ####BAIRD LABORATORYCLIA [id number] [place] [id number] [place] Neutrophils/100 WBC (Bld) 78.7 % Normal [facility] Comment on above: Order Comment: Speci men Type: BLOOD SPECIMENOrdering Facility: [facility] Address: [address] [place] [address] Performed By: #### 5 7021-8 ####BAIRD LABORATORYCLIA [id number] [place] [id number] [place] Nucleated RBC (Bld) [#/Vol] 10*3/uL Normal <0.01 [facility] Comment on above: Order Comment: Speci men Type: BLOOD SPECIMENOrdering Facility: [facility] Address: [address] [place] [address] Performed By: #### 5 7021-8 ####BAIRD LABORATORYCLIA [id number] [place] [id number] [place] Nucleated RBC/100 WBC (Bld) [Ratio] 0.0 /100 WBC Normal [facility] Comment on above: Order Comment: Speci men Type: BLOOD SPECIMENOrdering Facility: [facility] Address: [address] [place] [address] Performed By: #### 5 7021-8 ####BAIRD LABORATORYCLIA [id number] [place] [address] [place] Platelet mean volume (Bld) [Entitic vol] 10.8 fL Normal 9.0-12.7 [facility] Comment on above: Order Comment: Speci men Type: BLOOD SPECIMENOrdering Facility: [facility] Address: [address] [place] [address] Performed By: #### 5 7021-8 ####BAIRD LABORATORYCLIA [id number] [address] [place] Platelets (Bld) [#/Vol] 380 10*3/uL Normal 150-400 [facility] Comment on above: Order Comment: Speci men Type: BLOOD SPECIMENOrdering Facility: [facility] Address: [address] [place] [address] Performed By: #### 5 7021-8 ####BAIRD LABORATORYCLIA [id number] [place] [address] [place] RBC (Bld) [#/Vol] 4.76 10*6/uL Normal 3.90-5.20 [facility] Comment on above: Order Comment: Speci men Type: BLOOD SPECIMENOrdering Facility: [facility] Address: [address] [place] [address] Performed By: #### 5 7021-8 ####BAIRD LABORATORYCLIA [id number] [address] [place] WBC (Bld) [#/Vol] 11.62 10*3/uL High 3.70-11.00 [facility] Comment on above: Order Comment: Speci men Type: BLOOD SPECIMENOrdering Facility: [facility] Address: [address] [place] [address] Performed By: #### 5 7021-8 ####BAIRD LABORATORYCLIA [id number] [address] CRP SerPl-mCncon 03-02-2025 CRP [Mass/Vol] 0.4 mg/dL Normal <0.9 [facility] Comment on above: Order Comment: Speci men Type: BLOOD SPECIMENOrdering Facility: [facility] Address: [address] [place] [address] Performed By: #### 1 920-8, [id number], 1742-6, 3016-3, 1987- ####BAIRD LABORATORYCLIA [id number] [address] Comprehensive metabolic 2000 panelon 03-02-2025 Albumin [Mass/Vol] 4.2 g/dL Normal 3.9-4.9 [facility] Comment on above: Order Comment: Speci men Type: BLOOD SPECIMENOrdering Facility: [facility] Address: [address] [place] [address] Performed By: #### 2 4323-8, 53587-2, 49052-6 ####BAIRD LABORATORYCLIA [id number] [address] ALP [Catalytic activity/Vol] 49 U/L Normal 34-123 [facility] Comment on above: Order Comment: Speci men Type: BLOOD SPECIMENOrdering Facility: [facility] Address: [address] [place] [address] Performed By: #### 2 4323-8, 99037-6, 28745-1 ####BAIRD LABORATORYCLIA [id number] [address] ALT [Catalytic activity/Vol] Normal [facility] Comment on above: Order Comment: Speci men Type: BLOOD SPECIMENOrdering Facility: [facility] Address: [address] [place] [address] Result Comment: Unab le to assay due to interference from hemolysis. Suggest reorder as clinically indicated. Performed By: #### 2 4323-8, 87438-9, 42270-8 ####[facility] LABORATORYCLIA [id number] [place] [address] [place] Anion gap [Moles/Vol] 13 mmol/L Normal 8-[address] [facility] Comment on above: Order Comment: Speci men Type: BLOOD SPECIMENOrdering Facility: [facility] Address: [address] [place] [address] Performed By: #### 2 4323-8, 92105-0, 24216-5 ####[facility] LABORATORYCLIA [id number] [place] [id number] [place] AST [Catalytic activity/Vol] Normal [facility] Comment on above: Order Comment: Speci men Type: BLOOD SPECIMENOrdering Facility: [facility] Address: [address] [place] [address] Result Comment: Unab le to assay due to interference from hemolysis. Suggest reorder as clinically indicated. Performed By: #### 2 4323-8, , 27828-2 ####[facility] LABORATORYCLIA [id number] [place] [address] [place] Bilirubin [Mass/Vol] 0.8 mg/dL Normal 0.2-1.3 [facility] Comment on above: Order Comment: Speci men Type: BLOOD SPECIMENOrdering Facility: [facility] Address: [address] [place] [address] Performed By: #### 2 4323-8, 79478-0, 43005-7 ####[facility] LABORATORYCLIA [id number] [place] [id number] [place] Calcium [Mass/Vol] 9.5 mg/dL Normal 8.5-10.2 [facility] Comment on above: Order Comment: Speci men Type: BLOOD SPECIMENOrdering Facility: [facility] Address: [address] [place] [address] Performed By: #### 2 4323-8, 16427-9, 11215-6 ####[facility] LABORATORYCLIA [id number] [place] [address] [place] Chloride [Moles/Vol] 98 mmol/L Normal 98-107 [facility] Comment on above: Order Comment: Speci men Type: BLOOD SPECIMENOrdering Facility: [facility] Address: [address] [place] [address] Performed By: #### 2 4323-8, 83816-6, 25389-1 ####BAIRD LABORATORYCLIA [id number] [place] [address] [place] CO2 [Moles/Vol] 22 mmol/L Normal 22-30 [facility] Comment on above: Order Comment: Speci men Type: BLOOD SPECIMENOrdering Facility: [facility] Address: [address] [place] [address] Performed By: #### 2 4323-8, , 56075-3 ####[facility] LABORATORYCLIA [id number] [address] STATES OF [facility] Creatinine [Mass/Vol] 0.89 mg/dL Normal 0.58-0.[address] [facility] Comment on above: Order Comment: Speci men Type: BLOOD SPECIMENOrdering Facility: [facility] Address: [address] [place] [address] Performed By: #### 2 4323-8, 12368-7, 19374-2 ####[facility] LABORATORYCLIA [id number] [address] eGFRcr SerPlBld CKD-EPI 2020 62 mL/min/1.73m??? Normal >=60 [facility] Comment on above: Order Comment: Speci men Type: BLOOD SPECIMENOrdering Facility: [facility] Address: [address] [place] [address] Result Comment: Radha mated Glomerular Filtration Rate [...] actual GFR. Performed By: #### 2 4323-8, 19952-4, 12255-5 ####BAIRD LABORATORYCLIA [id number] [place] [address] [place] Glucose [Mass/Vol] 106 mg/dL High 74-99 [facility] Comment on above: Order Comment: Vita florez Type: BLOOD SPECIMENOrdering Facility: [facility] Address: [address] [place] [address] Result Comment: The [place] Diabetes Association (ADA) provides guidance for cutoff [...] Standards of Medical Care in Diabetes 2016, [place] [employer]. Diabetes Care. 2016.39(Suppl 1). Performed By: #### 2 4323-8, 09775-6, 58693-6 ####[facility] LABORATORYCLIA [id number] [place] [id number] [place] Potassium [Moles/Vol] 5.2 mmol/L High 3.7-5.[address] [facility] Comment on above: Order Comment: Vita florez Type: BLOOD SPECIMENOrdering Facility: [facility] Address: [address] [place] [address] Performed By: #### 2 4323-8, 63921-7, 38769-1 ####[facility] LABORATORYCLIA [id number] [place] [id number] [place] Protein [Mass/Vol] 6.8 g/dL Normal 6.3-8.0 [facility] Comment on above: Order Comment: Vita florez Type: BLOOD SPECIMENOrdering Facility: [facility] Address: [address] [place] [address] Performed By: #### 2 4323-8, 59186-4, 75972-8 ####BAIRD LABORATORYCLIA [id number] [place] [id number] [place] Sodium [Moles/Vol] 133 mmol/L Low 136-144 [facility] Comment on above: Order Comment: Speci men Type: BLOOD SPECIMENOrdering Facility: [facility] Address: [address] [place] [address] Performed By: #### 2 4323-8, 43386-4, 87786-9 ####[facility] LABORATORYCLIA [id number] [place] [address] [place] [facility] Urea nitrogen [Mass/Vol] 32 mg/dL High 7-21 [facility] Comment on above: Order Comment: Speci men Type: BLOOD SPECIMENOrdering Facility: [facility] Address: [address] [place] [id number] Performed By: #### 2 4323-8, 79609-7, 22237-1 ####[facility] LABORATORYCLIA [id number] [address] [place] [id number] 03-02-2025 ECG01 Ventricular Rate : 8 0 BPM Atrial Rate : 80 BPM P-R Interval : 162 ms QRS Duration : 136 ms Q-T Interval : 416 ms QTC Calculation(Bazett) : 479 ms Calculated P [place] : -15 degrees Calculated R [place] : -57 degrees Calculated T [place] : 121 degrees SINUS RHYTHM WITH OCCASIONAL PREMATURE VENTRICULAR COMPLEXES LEFT AXIS DEVIATION LEFT VENTRICULAR HYPERTROPHY WITH QRS WIDENING AND REPOLARIZATION ABNORMALITY ( R in aVL , Tw[place] Harte product , Romhilt-Weir ) POSSIBLE LATERAL INFARCT , AGE UNDETERMINED ABNORMAL ECG No Stemi Confirmed by BEATRIS GILLILAND DO ([id number]) on 03/02/2025 4:13:22 PM NAME : NA GOOD PID : [id number] : 1935 Gender : Female Race : ORD : Procedure Date : Mar 02 2025 14:54:51 Edit Date : Mar 02 2025 16:13:24 Diagnosis: SINUS RHYTHM WITH OCCASIONAL PREMATURE VENTRICULAR COMPLEXES LEFT AXIS DEVIATION LEFT VENTRICULAR HYPERTROPHY WITH QRS WIDENING AND REPOLARIZATION ABNORMALITY ( R in aVL , Tw[place]e product , Romhilt-Weir ) POSSIBLE LATERAL INFARCT , AGE UNDETERMINED ABNORMAL ECG No Stemi Confirmed by BEATRIS GILLILAND DO ([id number]) on 03/02/2025 4:13:22 PM Test Reason : Location : 1 : ER ED Overread By : BEATRIS GILLILAND DO Edited By : BEATRIS GILLILAND DO Referred By : , Acquired by : EVIN [facility] ED NOTEon 03-02-2025 ED NOTE HNO ID: [id number] Author: MELODIE CLEARY, LAKESHIA Service: Nursing Author Type: Registered Nurse Type: ED Notes Filed: 03/02/2025 14:03 Note Text: MD @ BEDSIDE for EVAL [facility] ED NOTE HNO ID: [id number] Author: KAMRON CR, LAKESHIA Service: Behavioral Health Author Type: Registered Nurse Type: ED Notes Filed: 03/02/2025 13:42 Note Text: pt dropped off from assisted living for Shortness of Breath pt states has been seen 3 times for same complaint [facility] ED PROV NOTEon 03-02-2025 ED PROV NOTE HNO ID: [id number] Author: BEATRIS GILLILAND DO Service: Emergency Medicine [...] (120 lb 2.4 oz) 1.575 m (5' 2) Physical Exam Constitutional: General: She is not [...] 9.14 (*) 1.45 - 7.50 k/uL Abs Craig 1.08 (*) <0.87 k/uL All other components [...] ng/L All (more content not included)... Normal [facility] HIGH SENSITIVITY TROPONIN T (INITIAL)on 03-02-2025 Troponin T.cardiac High sensitivity method [Mass/Vol] 37 ng/L High <12 [facility] Comment on above: Order Comment: Vita florez Type: BLOOD SPECIMENOrdering Facility: [facility] Address: [address] [place] [address] Performed By: #### 1 920-8, [id number], 1742-6, 3016-3, 1988- ####[facility] LABORATORYCLIA [id number] [address] OF [facility] HIGH SENSITIVITY TROPONIN T (SECOND)on 03-02-2025 Troponin T.cardiac High sensitivity method [Mass/Vol] 37 ng/L High <12 [facility] Comment on above: Order Comment: Vita florez Type: BLOOD SPECIMEN [facility] Address: [address] [place] [id number] Performed By: #### 2 4321-2 #### [facility] CLIA [id number] [address] [place] [id number] [facility] HIGH SENSITIVITY TROPONIN T (THIRD) 3 HRS AFTER INITIALon 03-02-2025 Troponin T.cardiac High sensitivity method [Mass/Vol] 42 ng/L High <12 [facility] Comment on above: Order Comment: Speci men Type: BLOOD SPECIMENOrdering Facility: [facility] Address: [address] [place] [id number] Performed By: #### L FI1036 ####[facility] LABORATORYCLIA [id number] [place] [address] [facility] [place] HISTORY PHYSICALon HISTORY PHYSICAL HNO ID: [id number] Author: BISMARK SALES MD Service: General Internal [...] old female who is a resident of [facility] with PMH of non-ischemic cardiomyopathy, CAD, CHF [...] and B/L pleural effusion. BP mildly high, IN normal and pulse oxymetry on RA in [...] EOMI, JUAN (more content not included)... Normal [facility] Magn[facility] Magnesium [Mass/Vol] 2.5 mg/dL High 1.7-2.3 [facility] Comment on above: Order Comment: Speci men Type: BLOOD SPECIMENOrdering Facility: [facility] Address: [address] [place] [address] Performed By: #### 2 4323-8, 61544-1, 30528-2 ####[facility] LABORATORYCLIA [id number] [address] NT-proBNP SerPl-mCncon 03-02 Natriuretic peptide.B prohormone N-Terminal [Mass/Vol] 87287 pg/mL High <450 [facility] Comment on above: Order Comment: Speci men Type: BLOOD SPECIMENOrdering Facility: [facility] Address: [address] [place] [address] Performed By: #### 2 4323-8, 32739-6, 83449-8 ####[facility] LABORATORYCLIA [id number] [address] [place] TSH SerPl-aCncon 03-02-2025 TSH Qn 0.498 m[IU]/L Normal 0.270-4.200 [facility] Comment on above: Order Comment: Speci men Type: BLOOD SPECIMENOrdering Facility: [facility] Address: [address] [place] [address] Performed By: #### 1 920-8, YZM1000, 1742-6, 3016-3, 1988- ####[facility] LABORATORYCLIA [id number] [place] [id number] [place] XR CHEST 1V FRONTAL [...] chest PA and lateral views is recommended. Warehouse Loader: KONSTANTIN Transcribe Date/Time: Mar 02 2025 3:11P Dictated by : SANDHYA KHOURY MD This examination was interpreted and the report reviewed and electronically signed by: SANDHYA KHOURY MD on Mar 02 2025 3:16PM EST [id number] Normal [facility] Urine Cultureon 02-28-2025 URC UNKNOWN METHOD OF COLLECTION Organism is too fastidious for routine susceptibility studies. Aerococcus urinae [place] Count 50,000-80,000 Normal [facility] Comment on above: Performed By: #### L 500.2500, L100.0500 #### [facility] [address] [place], [address] CNPPatricia 02-27-2025 LELAND Telephone (KRISTA) NA GOOD ([id number]) 1935 F Date Time Provider Department 02/27/25 LIDIA ARMENTA During your visit today, we recorded the following information about you: Merritt Salguero 02/27/2025 9:25 AM Signed Lidia Armenta APRN.[facility] Clerical Pool Can you please send my office note to her AL? 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 They provided their fax number: [phone]. Faxed OV note to [facility]. Allergies As of Date: 02/27/2025 Noted Allergy [...] Encounter Status:Closed by MERRITT SALGUERO on 02/27/25 [facility] Keely 02-26-2025 CNPN Telephone (KRISTA) NA GOOD ([id number]) 1935 F Date Time Provider Department 02/26/25 LIDIA ARMENTA During your visit today, we recorded the following information about you: Randell Moreno LPN 02/26/2025 7:34 AM Signed [employer] Portable X-Ray Results received via fax. Copy placed in PSS basket for scanning. Copy placed on desk of Sisi Armenta for review. Shamir 02/25/26 Sola Meadows 02/26/2025 8:04 AM Signed Scan on 02/26/2025 8:03 AM by Sola Benjamin: [employer] Portable X-Ray Results Merritt Salguero 02/27/2025 10:22 AM Signed Patient's assisted living calling front end alignment specialist stating they would like Lidia to sign [...] Assessed Reason for Visit: Results [95] Cmt: [facility] X-Ray Results Prescriptions as of 03/02/2025 - [...] Encounter Status:Closed by JUAN PARSONS on 03/02/25 [facility] Vanita 02-25-2025 CNOV Office Visit (CARDMM ) NA GOOD ([id number]) 1935 F Date Time Provider Department 02/25/25 1:30 PM LIDIA ARMENTA During your visit today, we recorded the following information about you: Pulse Blood pressure Weight Height 95/minute 118/78 54.9 kg 1.575 m Lidia Armenta, [employer] MANUFA[employer]URING CONSULTANT.FIBERGLASS FINISHER 02/25/2025 3:55 PM [facility] [place] Domenic Rayo Department of Cardiovascular Medicine SECTION [...] a follow up visit. Recent admission to [facility] for acute diastolic HF Seen by and [...] a long-standing tremor, which she describes as shaking. She is unsure if she has been taking extra doses of her diuretic. She tries to avoid excessive salt intake. She was recently hospitalized twice, in December and January, for pulmonary edema and a UTI. She denies any current symptoms of a UTI, such as dysuria or increased urinary frequency. She resides in an assisted living facility, [facility], and is accompanied by her nurse aide. She is under the care of a primary physician and a nurse practitioner at the facility. She is currently taking a thyroid medication. Recent lab results show normal renal function, potassium levels, and thyroid function. There were no tests performed for review. PHYSICAL EXAMINATION: Vitals: BP 118/78 (BP Position: Sitting) Pulse 95 Ht 157.5 cm (5' 2) Wt 54.9 kg (121 lb 0.5 oz) [...] prior to the follow up. Lidia Armenta APRN.FIBERGLASS FINISHER Cardiology Nurse (more content not included)... Normal [facility] CBC-Complete Blood Cnt No Di ffon 02-24-2025 Erythrocyte distribution width (RBC) [Ratio] 16.4 % High 11.6-14.6 [facility] Comment on above: Order Comment: 546.1 Performed By: #### L 500.2500, L100.0500 #### [facility] [address] [place], [address] Hematocrit (Bld) [Volume fraction] 39.1 % Normal 37-47 [facility] Comment on above: Order Comment: 546.1 Performed By: #### L 500.2500, L100.0500 #### [facility] [address] [place], [address] Hemoglobin (Bld) [Mass/Vol] 13.1 g/dL Normal 12.0-15.0 [facility] Comment on above: Order Comment: 546.1 Performed By: #### L 500.2500, L100.0500 #### [facility] [address] [place], [address] MCH (RBC) [Entitic mass] 29.4 pg Normal 27.0-32.0 [facility] Comment on above: Order Comment: 546.1 Performed By: #### L 500.2500, L100.0500 #### [facility] [address] [place], [address] MCHC (RBC) [Mass/Vol] 33.5 g/dL Normal 32-36 [facility] Comment on above: Order Comment: 546.1 Performed By: #### L 500.2500, L100.0500 #### [facility] [address] [place], [address] MCV (RBC) [Entitic vol] 87.7 fL Normal 81-99 [facility] Comment on above: Order Comment: 546.1 Performed By: #### L 500.2500, L100.0500 #### [facility] [address] [place], [address] Platelet mean volume (Bld) [Entitic vol] 10.6 fL Normal 6.2-12.0 [facility] Comment on above: Order Comment: 546.1 Performed By: #### L 500.2500, L100.0500 #### [facility] [address] [place], [address] Platelets (Bld) [#/Vol] 359 10*3/uL Normal 150-450 [facility] Comment on above: Order Comment: 546.1 Performed By: #### L 500.2500, L100.0500 #### [facility] [address] [place], [address] RBC (Bld) [#/Vol] 4.46 10*6/uL Normal 4.2-5.4 [facility] Comment on above: Order Comment: 546.1 Performed By: #### L 500.2500, L100.0500 #### [facility] [address] [place], [address] RDW SD 52.3 fl High 35.1-43.9 [facility] Comment on above: Order Comment: 546.1 Performed By: #### L 500.2500, L100.0500 #### [facility] [address] [place], [address] WBC (Bld) [#/Vol] 9.6 10*3/uL Normal 4.4-11.0 [facility] [place] Comment on above: Order Comment: 546.1 Performed By: #### L 500.2500, L100.0500 #### [facility] [address] [place], [address] Comprehensive Metabolic Prof ilon 02-24-2025 Albumin [Mass/Vol] 3.7 g/dL Normal 3.4-4.8 [facility] [place] Comment on above: Order Comment: 546.1 Performed By: #### L 500.2500, L100.0500 #### [facility] [address] [place], [address] Albumin/Globulin [Mass ratio] 1.7 {ratio} Normal 0.9-2.4 [facility] Comment on above: Order Comment: 546.1 Performed By: #### L 500.2500, L100.0500 #### [facility] [address] [place], [address] ALK PHOS 38 U/L Normal 35-104 [facility] Comment on above: Order Comment: 546.1 Performed By: #### L 500.2500, L100.0500 #### [facility] [address] [place], [address] ALT [Catalytic activity/Vol] 27 U/L Normal <=34 [facility] Comment on above: Order Comment: 546.1 Performed By: #### L 500.2500, L100.0500 #### [facility] [address] [place], [address] AST [Catalytic activity/Vol] 35 U/L High <=31 [facility] Comment on above: Order Comment: 546.1 Performed By: #### L 500.2500, L100.0500 #### [facility] [address] [place], [address] Bilirubin [Mass/Vol] 0.65 mg/dL Normal 0.00-1.30 [facility] Comment on above: Order Comment: 546.1 Performed By: #### L 500.2500, L100.0500 #### [facility] [address] [place], [address] BUN/CRE 30.1 RATIO High 10-20 [facility] Comment on above: Order Comment: 546.1 Performed By: #### L 500.2500, L100.0500 #### [facility] [address] [place], [address] Calcium [Mass/Vol] 9.2 mg/dL Normal 7.6-11.0 [facility] [place] Comment on above: Order Comment: 546.1 Performed By: #### L 500.2500, L100.0500 #### [facility] [address] [place], [address] Chloride [Moles/Vol] 103 mmol/L Normal 98-108 [facility] Comment on above: Order Comment: 546.1 Performed By: #### L 500.2500, L100.0500 #### [facility] [address] [place], [address] CO2 [Moles/Vol] 25.1 mmol/L Normal 21.0-32.0 [facility] Comment on above: Order Comment: 546.1 Performed By: #### L 500.2500, L100.0500 #### [facility] [address] [place], [address] Creatinine [Mass/Vol] 0.92 mg/dL Normal 0.70-1.20 [facility] Comment on above: Order Comment: 546.1 Performed By: #### L 500.2500, L100.0500 #### [facility] [address] [place], [address] GAP 9 Normal 5-15 [facility] Comment on above: Order Comment: 546.1 Performed By: #### L 500.2500, L100.0500 #### [facility] [address] [place], [address] GFR/1.73 sq M.predicted among non-blacks MDRD (S/P/Bld) [Vol rate/Area] 60 mL/min/{1.73_m2} Normal >60 [facility] Comment on above: Order Comment: 546.1 Result Comment: mL/m in/1.73m2 CKD-EPI Creatinine Equation (2020) Performed By: #### L 500.2500, L100.0500 #### [facility] [address] [place], [address] Globulin (S) [Mass/Vol] 2.1 g/dL Low 2.2-4.2 [facility] Comment on above: Order Comment: 546.1 Performed By: #### L 500.2500, L100.0500 #### [facility] [address] [place], [address] Glucose [Mass/Vol] 85 mg/dL Normal 70-99 [facility] [place] Comment on above: Order Comment: 546.1 Performed By: #### L 500.2500, L100.0500 #### [facility] [address] [place], [address] Potassium [Moles/Vol] 4.6 mmol/L Normal 3.3-5.1 [facility] Comment on above: Order Comment: 546.1 Performed By: #### L 500.2500, L100.0500 #### [facility] [address] [place], [address] Sodium [Moles/Vol] 136 mmol/L Normal 133-145 [facility] [place] Comment on above: Order Comment: 546.1 Performed By: #### L 500.2500, L100.0500 #### [facility] [address] [place], [address] T PROT 5.8 g/dL Low 5.9-8.4 [facility] Comment on above: Order Comment: 546.1 Performed By: #### L 500.2500, L100.0500 #### [facility] [address] [place], [address] Urea nitrogen [Mass/Vol] 28 mg/dL High 4-19 [facility] Comment on above: Order Comment: 546.1 Performed By: #### L 500.2500, L100.0500 #### [facility] [address] [place], [address] Thyroid Stim Hormone (TSH)on 02-24-2025 TSH 0.273 uIU/mL Low 0.300-4.200 [facility] Comment on above: Order Comment: 546.1 Performed By: #### L 500.2500, L100.0500 #### [facility] [address] [place], [address] Urinalysis, Completeon 02-24 BACTERIA 3+ /hpf Normal None Seen [facility] Comment on above: Order Comment: 546.1 Performed By: #### L 500.2500, L100.0500 #### [facility] [address] [place], [address] EPI,SQUAMOUS 0-5 SEEN Normal 5-10 [facility] Comment on above: Order Comment: 546.1 Performed By: #### L 500.2500, L100.0500 #### [facility] [address] [place], [address] WBC 10-25 SEEN Normal 0-5 [facility] Comment on above: Order Comment: 546.1 Performed By: #### L 500.2500, L100.0500 #### [facility] [address] [place], [address] Mucus Ql (Urine sed) 0 SEEN Normal [facility] Comment on above: Order Comment: 546.1 Performed By: #### L 500.2500, L100.0500 #### [facility] [address] [place], [address] RBC 0 SEEN Normal 0-5 [facility] Comment on above: Order Comment: 546.1 Performed By: #### L 500.2500, L100.0500 #### [facility] [address] [place], [address] Vitamin B12on 02-24-2025 Cobalamin (Vitamin B12) [Mass/Vol] 812 pg/mL Normal 180-914 [facility] Comment on above: Order Comment: 546.1 Performed By: #### L 500.2500, L100.0500 #### [facility] [address] [place], [address] CBC-Complete Blood Cnt No Di ffon 02-19-2025 Erythrocyte distribution width (RBC) [Ratio] 15.8 % High 11.6-14.6 [facility] Comment on above: Order Comment: 546.1 Performed By: #### L 500.2500, L100.0500 #### [facility] [place] [facility] [address] [place], [address] Hematocrit (Bld) [Volume fraction] 37.2 % Normal 37-47 [facility] Comment on above: Order Comment: 546.1 Performed By: #### L 500.2500, L100.0500 #### [facility] [address] [place], [address] Hemoglobin (Bld) [Mass/Vol] 12.5 g/dL Normal 12.0-15.0 [facility] Comment on above: Order Comment: 546.1 Performed By: #### L 500.2500, L100.0500 #### [facility] [address] [place], [address] MCH (RBC) [Entitic mass] 29.2 pg Normal 27.0-32.0 [facility] Comment on above: Order Comment: 546.1 Performed By: #### L 500.2500, L100.0500 #### [facility] [address] [place], [address] MCHC (RBC) [Mass/Vol] 33.6 g/dL Normal 32-36 [facility] Comment on above: Order Comment: 546.1 Performed By: #### L 500.2500, L100.0500 #### [facility] [address] [place], [address] MCV (RBC) [Entitic vol] 86.9 fL Normal 81-99 [facility] Comment on above: Order Comment: 546.1 Performed By: #### L 500.2500, L100.0500 #### [facility] [address] [place], [address] Platelet mean volume (Bld) [Entitic vol] 10.8 fL Normal 6.2-12.0 [facility] Comment on above: Order Comment: 546.1 Performed By: #### L 500.2500, L100.0500 #### [facility] [address] [place], [address] Platelets (Bld) [#/Vol] 346 10*3/uL Normal 150-450 [facility] Comment on above: Order Comment: 546.1 Performed By: #### L 500.2500, L100.0500 #### [facility] [address] [place], [address] RBC (Bld) [#/Vol] 4.28 10*6/uL Normal 4.2-5.4 [facility] Comment on above: Order Comment: 546.1 Performed By: #### L 500.2500, L100.0500 #### [facility] [address] [place], [address] RDW SD 49.9 fl High 35.1-43.9 [facility] Comment on above: Order Comment: 546.1 Performed By: #### L 500.2500, L100.0500 #### [facility] [address] [place], [address] WBC (Bld) [#/Vol] 9.0 10*3/uL Normal 4.4-11.0 [facility] [place] Comment on above: Order Comment: 546.1 Performed By: #### L 500.2500, L100.0500 #### [facility] [address] [place], [address] CNPNon 02-19-2025 [facility] Telephone ([facility]) NA GOOD ([id number]) 1935 F Date Time Provider Department 02/19/25 JOVANI COCHRAN CCHFMR During your visit today, we recorded the following information about you: Jovani Cochran APRN.VERONICA 02/19/2025 11:19 AM Signed Rec'd call from [facility] home regarding recent weight gain for patient [...] Date Reviewed: 02/04/2025 Reviewed by: Jovani Cochran APRN.[employer]ISHER - Fully Assessed Prescriptions as of 02/19/2025 [...] Encounter Status:Closed by JOVANI COCHRAN on 02/19/25 Normal [facility] Comprehensive Metabolic Prof jalen 02-19-2025 Albumin [Mass/Vol] 3.3 g/dL Low 3.4-4.8 [facility] Comment on above: Order Comment: 546.1 Performed By: #### L 500.2500, L100.0500 #### [facility] [address] [place], [address] Albumin/Globulin [Mass ratio] 1.7 {ratio} Normal 0.9-2.4 [facility] Comment on above: Order Comment: 546.1 Performed By: #### L 500.2500, L100.0500 #### [facility] [address] [place], [address] ALK PHOS 36 U/L Normal 35-104 [facility] Comment on above: Order Comment: 546.1 Performed By: #### L 500.2500, L100.0500 #### [facility] [address] [place], [address] ALT [Catalytic activity/Vol] 22 U/L Normal <=34 [facility] Comment on above: Order Comment: 546.1 Performed By: #### L 500.2500, L100.0500 #### [facility] [address] [place], [address] AST [Catalytic activity/Vol] 31 U/L Normal <=31 [facility] Comment on above: Order Comment: 546.1 Performed By: #### L 500.2500, L100.0500 #### [facility] [address] [place], [address] Bilirubin [Mass/Vol] 0.56 mg/dL Normal 0.00-1.30 [facility] Comment on above: Order Comment: 546.1 Performed By: #### L 500.2500, L100.0500 #### [facility] [address] [place], [address] BUN/CRE 22.5 RATIO High 10-20 [facility] Comment on above: Order Comment: 546.1 Performed By: #### L 500.2500, L100.0500 #### [facility] [address] [place], [address] Calcium [Mass/Vol] 8.4 mg/dL Normal 7.6-11.0 [facility] Comment on above: Order Comment: 546.1 Performed By: #### L 500.2500, L100.0500 #### [facility] [address] [place], [address] Chloride [Moles/Vol] 101 mmol/L Normal 98-108 [facility] Comment on above: Order Comment: 546.1 Performed By: #### L 500.2500, L100.0500 #### [facility] [address] [place], [address] CO2 [Moles/Vol] 24.4 mmol/L Normal 21.0-32.0 [facility] Comment on above: Order Comment: 546.1 Performed By: #### L 500.2500, L100.0500 #### [facility] [address] [place], [address] Creatinine [Mass/Vol] 0.93 mg/dL Normal 0.70-1.20 [facility] Comment on above: Order Comment: 546.1 Performed By: #### L 500.2500, L100.0500 #### [facility] [address] [place], [address] GAP 10 Normal 5-15 [facility] Comment on above: Order Comment: 546.1 Performed By: #### L 500.2500, L100.0500 #### [facility] [address] [place], [address] GFR/1.73 sq M.predicted among non-blacks MDRD (S/P/Bld) [Vol rate/Area] 59 mL/min/{1.73_m2} Low >60 [facility] Comment on above: Order Comment: 546.1 Result Comment: mL/m in/1.73m2 CKD-EPI Creatinine Equation (2020) Performed By: #### L 500.2500, L100.0500 #### [facility] [address] [place], [address] Globulin (S) [Mass/Vol] 2.0 g/dL Low 2.2-4.2 [facility] Comment on above: Order Comment: 546.1 Performed By: #### L 500.2500, L100.0500 #### [facility] [address] [place], [address] Glucose [Mass/Vol] 66 mg/dL Low 70-99 [facility] Comment on above: Order Comment: 546.1 Performed By: #### L 500.2500, L100.0500 #### [facility] [address] [place], [address] Potassium [Moles/Vol] 4.1 mmol/L Normal 3.3-5.1 [facility] Comment on above: Order Comment: 546.1 Performed By: #### L 500.2500, L100.0500 #### [facility] [address] [place], [address] Sodium [Moles/Vol] 135 mmol/L Normal 133-145 [facility] Comment on above: Order Comment: 546.1 Performed By: #### L 500.2500, L100.0500 #### [facility] [address] [place], [address] T PROT 5.3 g/dL Low 5.9-8.4 [facility] Comment on above: Order Comment: 546.1 Performed By: #### L 500.2500, L100.0500 #### [facility] [address] [place], [address] Urea nitrogen [Mass/Vol] 21 mg/dL High 4-19 [facility] Comment on above: Order Comment: 546.1 Performed By: #### L 500.2500, L100.0500 #### [facility] [address] [place], [address] CNOVon 02-04-2025 CNOV Office Visit ([facility] ) NA GOOD ([id number]) 1935 F Date Time Provider Department 02/04/25 10:00 AM JOVANI COCHRAN [facility] During your visit today, we recorded the following information about you: Pulse Blood pressure Weight 89/minute 132/79 53.6 kg Jovani Cochran APRN.CNP 02/04/2025 1:00 PM Signed [facility] [place] [facility] OUTPATIENT VISIT DATE [...] 0 No curre (more content not included)... [facility] CNCOon 01-29-2025 CNCO Letter Text [facility] CNDSon 01-29-2025 CNDS HNO ID: [id number] Author: JULIO CESAR ALVAREZ MD Service: Hospital [...] HFrEF (heart failure with reduced ejection fraction) ([facility]) Unknown Difficulty sleeping Unknown Shortness of breath [...] During patient's hospitalization called patient's power of associate attorney and explained hospital course and need for follow up. Patient's hospital course and need for follow-up were explained to patient as well who is in understanding. Patient will need follow-up with primary care physician and cardiology soon after discharge from hospital. OPERATIONS/PROCEDURE DURING THIS HOSPITALIZATION: * No surgery found * CONSULTS DURING HOSPITALIZATION: Treatment Team: Primary Service: 3, [facility] PATIENT CONDITION AT DISCHARGE: Stable DISCHARGE DISPOSITION: [...] Center 02/04/2025 10:00 AM Jovani Cochran APRN.CNP [facility] 02/25/2025 1:30 PM Lidia Armenta APRN.VERONICA [facility] Discharge Information Row Name ED to Hosp-Admission (Discharged) from 01/27/2025 in [facility] Follow-Up Appointment Provider Name PCP: Aelxey Espino DO - Other Follow-Up Type [facility]: [facility] - ALLERGIES Allergen Reactions Cortisone facial [...] Generic drug: spironola (more content not included)... [facility] NURSING PROGon 01-29-2025 NURSING PROG HNO ID: [id number] Author: RAULITO CHAVEZ, RN Service: Nursing Author Type: Registered Nurse Type: Nursing Progress Note Filed: 01/29/2025 15:28 Note Text: PATIENT EDUCATION HEART FAILURE PATIENT NAME: Na Good PATIENT LOCATION: [place] [address] [address] SURVIVAL SKILLS: Low Sodium Diet Weight Monitoring and Dry Weight Importance of Follow Up after Discharge Fluid Restriction, if applicable Heart Failure Medications Symptom Management related to heart failure Activity / Physical Exercise Recommendations Smoking cessation counseling if applicable When Patient Should Call Provider Pt w/ [place], and poor vision; communication is difficult. She is unsure why she is here and wants to go home. Pt last seen by this department 12/24/24. I met w/ pt's son at that time. All children are of [facility]. Survival Skills were discussed w/ son. Son stated DRY weight b/t 122-125lb, pt weighted 122lb.@ that time. Today's weight is 125lb. Electronically Signed By: Raulito Chavez [facility] Basic metabolic 2000 panelon 01-28-2025 Anion gap [Moles/Vol] 11 mmol/L Normal 8-[address] [facility] Comment on above: Order Comment: Vita florez Type: BLOOD SPECIMEN Ordering Facility: [facility] Address: [address] [place] [address] Performed By: #### 2 4321-2 #### [facility] CLIA [id number] [address] [place] [address] [place] Calcium [Mass/Vol] 8.9 mg/dL Normal 8.5-10.2 [facility] Comment on above: Order Comment: Vita florez Type: BLOOD SPECIMEN Ordering Facility: [facility] Address: [address] [place] [address] Performed By: #### 2 4321-2 #### [facility] CLIA [id number] [address] [place] [address] [place] Chloride [Moles/Vol] 103 mmol/L Normal 98-107 [facility] Comment on above: Order Comment: Speci men Type: BLOOD SPECIMEN Ordering Facility: [facility] Address: [address] [place] [address] Performed By: #### 2 4321-2 #### [facility] CLIA [id number] [address] [place] [address] [place] CO2 [Moles/Vol] 27 mmol/L Normal 22-30 [facility] Comment on above: Order Comment: Speci men Type: BLOOD SPECIMEN Ordering Facility: [facility] Address: [address] [place] [address] Performed By: #### 2 4321-2 #### [facility] CLIA [id number] [address] [place] [address] [place] Creatinine [Mass/Vol] 0.99 mg/dL High 0.58-0.[address] [facility] Comment on above: Order Comment: Speci men Type: BLOOD SPECIMEN Ordering Facility: [facility] Address: [address] [place] [address] Performed By: #### 2 4321-2 #### [facility] CLIA [id number] [address] [place] eGFRcr SerPlBld CKD-EPI 2020 55 mL/min/1.73m??? Low >=60 [facility] Comment on above: Order Comment: Speci men Type: BLOOD SPECIMEN Ordering Facility: [facility] Address: [address] [place] [address] Result Comment: Radha mated Glomerular Filtration Rate [...] GFR. Performed By: #### 2 4321-2 #### [facility] CLIA [id number] [address] [place] Glucose [Mass/Vol] 83 mg/dL Normal 74-99 [facility] Comment on above: Order Comment: Speci men Type: BLOOD SPECIMEN Ordering Facility: [facility] Address: [address] [place] [address] Result Comment: The [place] [employer] (ADA) provides guidance for cutoff [...] Standards of Medical Care in Diabetes 2016, [place] [employer]. Diabetes Care. 2016.39(Suppl 1). Performed By: #### 2 4321-2 #### [facility] CLIA [id number] [address] [place] [address] [place] Potassium [Moles/Vol] 4.0 mmol/L Normal 3.7-5.[address] [facility] Comment on above: Order Comment: Vita florez Type: BLOOD SPECIMEN Ordering Facility: [facility] Address: [address] [place] [address] Performed By: #### 2 4321-2 #### [facility] CLIA [id number] [address] [place] [address] [place] Sodium [Moles/Vol] 141 mmol/L Normal 136-144 [facility] Comment on above: Order Comment: Vita florez Type: BLOOD SPECIMEN Ordering Facility: [facility] Address: [address] [place] [id number] Performed By: #### 2 4321-2 #### [facility] CLIA [id number] [address] [place] [address] [place] Urea nitrogen [Mass/Vol] 25 mg/dL High 7-21 [facility] Comment on above: Order Comment: Vita florez Type: BLOOD SPECIMEN Ordering Facility: [facility] Address: [address] [place] [id number] Performed By: #### 2 4321-2 #### [facility] CLIA [id number] [address] CBC panel Auto (Bld)on 01-28 Erythrocyte distribution width (RBC) [Ratio] 15.8 % High 11.5-15.0 [facility] Comment on above: Order Comment: Speci men Type: BLOOD SPECIMENOrdering Facility: [facility] Address: [address] [place] [address] Performed By: #### 5 8410-2 ####[facility] [id number] [address] Hematocrit (Bld) [Volume fraction] 41.1 % Normal 36.0-46.0 [facility] Comment on above: Order Comment: Speci men Type: BLOOD SPECIMENOrdering Facility: [facility] Address: [address] [place] [address] Performed By: #### 5 8410-2 ####[facility] [id number] [address] Hemoglobin (Bld) [Mass/Vol] 13.7 g/dL Normal 11.5-15.5 [facility] Comment on above: Order Comment: Speci men Type: BLOOD SPECIMENOrdering Facility: [facility] Address: [address] [place] [address] Performed By: #### 5 8410-2 ####[facility] LABORATORYCLIA [id number] [address] MCH (RBC) [Entitic mass] 29.6 pg Normal 26.0-34.0 [facility] Comment on above: Order Comment: Speci men Type: BLOOD SPECIMENOrdering Facility: [facility] Address: [address] [place] [address] Performed By: #### 5 8410-2 ####BAIRD LABORATORYCLIA [id number] [address] MCHC (RBC) [Mass/Vol] 33.3 g/dL Normal 30.5-36.[address] [facility] Comment on above: Order Comment: Speci men Type: BLOOD SPECIMENOrdering Facility: [facility] Address: [address] [place] [address] Performed By: #### 5 8410-2 ####BAIRD LABORATORYCLIA [id number] [address] MCV (RBC) [Entitic vol] 88.8 fL Normal 80.0-100.0 [facility] Comment on above: Order Comment: Speci men Type: BLOOD SPECIMENOrdering Facility: [facility] Address: [address] [place] [address] Performed By: #### 5 8410-2 ####BAIRD LABORATORYCLIA [id number] [address] [place] Nucleated RBC (Bld) [#/Vol] 10*3/uL Normal <0.01 [facility] Comment on above: Order Comment: Speci men Type: BLOOD SPECIMENOrdering Facility: [facility] Address: [address] [place] [address] Performed By: #### 5 8410-2 ####BAIRD LABORATORYCLIA [id number] [address] Platelet mean volume (Bld) [Entitic vol] 10.9 fL Normal 9.0-12.7 [facility] Comment on above: Order Comment: Speci men Type: BLOOD SPECIMENOrdering Facility: [facility] Address: [address] [place] [address] Performed By: #### 5 8410-2 ####BAIRD LABORATORYCLIA [id number] [address] Platelets (Bld) [#/Vol] 330 10*3/uL Normal 150-400 [facility] Comment on above: Order Comment: Speci men Type: BLOOD SPECIMENOrdering Facility: [facility] Address: [address] [place] [address] Performed By: #### 5 8410-2 ####BAIRD LABORATORYCLIA [id number] [address] [place] RBC (Bld) [#/Vol] 4.63 10*6/uL Normal 3.90-5.20 [facility] Comment on above: Order Comment: Speci men Type: BLOOD SPECIMENOrdering Facility: [facility] Address: [address] [place] [address] Performed By: #### 5 8410-2 ####BAIRD LABORATORYCLIA [id number] [place] [id number] [facility] WBC (Bld) [#/Vol] 9.52 10*3/uL Normal 3.70-11.00 [facility] Comment on above: Order Comment: Speci men Type: BLOOD SPECIMENOrdering Facility: [facility] Address: [address] [facility] [address] [place] [id number] Performed By: #### 5 8410-2 ####BAIRD LABORATORYCLIA [id number] [place] [id number] [facility] CONSULTon 01-28-2025 CONSULT HNO ID: [id number] Author: AMY MARTINEZ MD Service: Cardiovascular Disease Author Type: Physician Type: Consults Filed: 01/28/2025 15:18 Note Text: [facility] CARDIOVASCULAR MEDICINE CONSULT NOTE (Template ID [id number]) Na Good [id number] PRIMARY SERVICE: Internal Medicine CONSULTING SERVICE: Cardiovascular [...] syncope, paral (more content not included)... Normal [facility] THERAPY NT 01-28-2025 THERAPY NT HNO ID: [id number] Author: LOI HEWITT PT Service: Physical Therapy Author Type: Physical Therapist Type: Therapy (PT/OT/Speech/Resp) Filed: 01/28/2025 16:05 Note Text: Summary: PT evaluation Physical Therapy Evaluation Summary SERVICE DATE: 01/28/2025 SERVICE TIME: 1510 to 1528 ROOM: [id number] PT 6 Clicks Score: 20 DISCHARGE RECOMMENDATIONS [...] on feet TREATMENT INTERVENTIONS Evaluation, Therapeutic Activity (37255), Gait Training (70639) Timed Code Treatment (minutes): 3 Skilled Treatment Time (minutes): 18 $ Evaluation-Low (01874) Billed Units: 1 unit Therapeutic Activity (47413) Treatment Minutes: 2 $ Therapeutic Activity (40859) Billed Units: 0 units Gait Training (23978) Treatment Minutes: 1 $ Gait Training (56559) Billed Units: 0 units TRAINING AND EDUCATION [...] posture and with (more content not included)... [facility] THERAPY NT HNO ID: [id number] Author: CAROLE HUGHES, OT/L Service: Occupational Therapy Author Type: Occupational Therapist Type: Therapy (PT/OT/Speech/Resp) Filed: 01/28/2025 14:56 Note Text: Summary: OT Evaluation Occupational Therapy Evaluation Summary SERVICE DATE: 01/28/2025 SERVICE TIME: 1418 to 1446 ROOM: [place] [address] OT 6 Clicks Score: 19 DISCHARGE RECOMMENDATIONS [...] ADLs and functional mobility/transfers, pt is very [place], follows commands appropriately, denies SOB during mobility, [...] Muscle Weakness (generalized) TREATMENT INTERVENTIONS Evaluation, Self Mcfp Management (25119) Timed Code Treatment (minutes): 13 Skilled Treatment Time (minutes): 28 TRAINING AND EDUCATION PROVIDED Activity Adaptation/[employer] Commerce Consultant y Strategies, Adaptive Equipment/DME, Bed Mobility, Benefits of In-Hospital Mobility, Cognitive Skills, Command Following, Discharge Planning, Expected Functional Level, Functional Mobility Involving ADLs, Insight into Deficits, Lower Extremity Dressing, Memory/Attention, Orientation, Positioning, Role of Occupational Therapy, Safety/Judgment, Sitting Balance to Improve Treadwell with ADLs/Self-Care, Standing Balance to Improve Treadwell with ADLs/Self-Care, Transfer - Sit to Stand [...] and/or physical assistance. (more content not included)... [facility] ALLIED HEALTHon 01-27-2025 ALLIED HEALTH HNO ID: [id number] Author: CECILE BAIRES CT Service: Radiology Author [...] PATIENT PRESENTS WITH AN IMPLANTABLE OR ATTACHED TEXTILE CONSERVATOR: No RADIOLOGY DEPARTMENT: General X-ray: Exam(s) Completed: Chest X-Ray PERIPHERAL IV DATA: Not applicable SIGNED BY: LAUREL Brooks January 27, 2025 1:24 PM [facility] Bacteria Ur Culton Bacteria identified Cx Nom (U) CULTURE, URINE: Normal urogenital tiffanie: ORGANISM ID: 1 >=100,000 CFU/ml Staphylococcus epidermidis No further workup. [facility] Comment on above: Performed By: #### 2 4356-8 ####[facility] LABORATORYCLIA [id number] [place], [place] [address] [place] [address] [place]#### 630-4 ####[facility] LABCLIA [id number] [address] [place] CBC W Auto Differential pane l (Bld)on 01-27-2025 Basophils (Bld) [#/Vol] 0.09 10*3/uL Normal <0.11 [facility] Comment on above: Order Comment: Speci men Type: BLOOD SPECIMENOrdering Facility: [facility] Address: [address] [place] [address] Performed By: #### 5 7021-8 ####BAIRD LABORATORYCLIA [id number] [address] STATES [facility] Basophils/100 WBC (Bld) 0.9 % Normal [facility] Comment on above: Order Comment: Speci men Type: BLOOD SPECIMENOrdering Facility: [facility] Address: [address] [place] [address] Performed By: #### 5 7021-8 ####BAIRD LABORATORYCLIA [id number] [place] [address] [place] Differential cell count method Nom (Bld) Auto Normal [facility] Comment on above: Order Comment: Speci men Type: BLOOD SPECIMENOrdering Facility: [facility] Address: [address] [place] [address] Performed By: #### 5 7021-8 ####BAIRD LABORATORYCLIA [id number] [place] [address] [place] Eosinophils (Bld) [#/Vol] 0.06 10*3/uL Normal <0.46 [facility] Comment on above: Order Comment: Speci men Type: BLOOD SPECIMENOrdering Facility: [facility] Address: [address] [place] [address] Performed By: #### 5 7021-8 ####BAIRD LABORATORYCLIA [id number] [address] Eosinophils/100 WBC (Bld) 0.6 % Normal [facility] Comment on above: Order Comment: Speci men Type: BLOOD SPECIMENOrdering Facility: [facility] Address: [address] [place] [address] Performed By: #### 5 7021-8 ####BAIRD LABORATORYCLIA [id number] [address] [place] Erythrocyte distribution width (RBC) [Ratio] 15.9 % High 11.5-15.0 [facility] Comment on above: Order Comment: Speci men Type: BLOOD SPECIMENOrdering Facility: [facility] Address: [address] [place] [address] Performed By: #### 5 7021-8 ####BAIRD LABORATORYCLIA [id number] [place] [address] [place] Hematocrit (Bld) [Volume fraction] 45.1 % Normal 36.0-46.0 [facility] Comment on above: Order Comment: Speci men Type: BLOOD SPECIMENOrdering Facility: [facility] Address: [address] [place] [address] Performed By: #### 5 7021-8 ####BAIRD LABORATORYCLIA [id number] [place] [address] [place] Hemoglobin (Bld) [Mass/Vol] 14.5 g/dL Normal 11.5-15.5 [facility] Comment on above: Order Comment: Speci men Type: BLOOD SPECIMENOrdering Facility: [facility] Address: [address] [place] [address] Performed By: #### 5 7021-8 ####BAIRD LABORATORYCLIA [id number] [place] [address] [place] Immature granulocytes (Bld) [#/Vol] 0.04 10*3/uL Normal <0.10 [facility] Comment on above: Order Comment: Speci men Type: BLOOD SPECIMENOrdering Facility: [facility] Address: [address] [place] [address] Performed By: #### 5 7021-8 ####BAIRD LABORATORYCLIA [id number] [place] [address] [place] Immature granulocytes/100 WBC (Bld) 0.4 % Normal [facility] Comment on above: Order Comment: Speci men Type: BLOOD SPECIMENOrdering Facility: [facility] Address: [address] [place] [address] Performed By: #### 5 7021-8 ####BAIRD LABORATORYCLIA [id number] [place] [address] [place] Lymphocytes (Bld) [#/Vol] 1.30 10*3/uL Normal 1.00-4.00 [facility] Comment on above: Order Comment: Speci men Type: BLOOD SPECIMENOrdering Facility: [facility] Address: [address] [place] [address] Performed By: #### 5 7021-8 ####BAIRD LABORATORYCLIA [id number] [address] Lymphocytes/100 WBC (Bld) 12.3 % Normal [facility] Comment on above: Order Comment: Speci men Type: BLOOD SPECIMENOrdering Facility: [facility] Address: [address] [place] [address] Performed By: #### 5 7021-8 ####BAIRD LABORATORYCLIA [id number] [address] [place] MCH (RBC) [Entitic mass] 29.2 pg Normal 26.0-34.0 [facility] Comment on above: Order Comment: Speci men Type: BLOOD SPECIMENOrdering Facility: [facility] Address: [address] [place] [address] Performed By: #### 5 7021-8 ####BAIRD LABORATORYCLIA [id number] [address] [place] MCHC (RBC) [Mass/Vol] 32.2 g/dL Normal 30.5-36.[address] [facility] Comment on above: Order Comment: Speci men Type: BLOOD SPECIMENOrdering Facility: [facility] Address: [address] [place] [address] Performed By: #### 5 7021-8 ####BAIRD LABORATORYCLIA [id number] [address] MCV (RBC) [Entitic vol] 90.7 fL Normal 80.0-100.0 [facility] Comment on above: Order Comment: Speci men Type: BLOOD SPECIMENOrdering Facility: [facility] Address: [address] [place] [address] Performed By: #### 5 7021-8 ####BAIRD LABORATORYCLIA [id number] [address] Monocytes (Bld) [#/Vol] 0.78 10*3/uL Normal <0.87 [facility] Comment on above: Order Comment: Speci men Type: BLOOD SPECIMENOrdering Facility: [facility] Address: [address] [place] [address] Performed By: #### 5 7021-8 ####BAIRD LABORATORYCLIA [id number] [address] [place] Monocytes/100 WBC (Bld) 7.4 % Normal [facility] Comment on above: Order Comment: Speci men Type: BLOOD SPECIMENOrdering Facility: [facility] Address: [address] [place] [address] Performed By: #### 5 7021-8 ####BAIRD LABORATORYCLIA [id number] [place] [address] [place] Neutrophils (Bld) [#/Vol] 8.30 10*3/uL High 1.45-7.50 [facility] Comment on above: Order Comment: Speci men Type: BLOOD SPECIMENOrdering Facility: [facility] Address: [address] [place] [address] Performed By: #### 5 7021-8 ####BAIRD LABORATORYCLIA [id number] [place] [address] [place] Neutrophils/100 WBC (Bld) 78.4 % Normal [facility] Comment on above: Order Comment: Speci men Type: BLOOD SPECIMENOrdering Facility: [facility] Address: [address] [place] [address] Performed By: #### 5 7021-8 ####BAIRD LABORATORYCLIA [id number] [place] [address] [place] Nucleated RBC (Bld) [#/Vol] 10*3/uL Normal <0.01 [facility] Comment on above: Order Comment: Speci men Type: BLOOD SPECIMENOrdering Facility: [facility] Address: [address] [place] [address] Performed By: #### 5 7021-8 ####BAIRD LABORATORYCLIA [id number] [place] [address] [place] Nucleated RBC/100 WBC (Bld) [Ratio] 0.0 /100 WBC Normal [facility] Comment on above: Order Comment: Speci men Type: BLOOD SPECIMENOrdering Facility: [facility] Address: [facility] [place] [address] Performed By: #### 5 7021-8 ####BAIRD LABORATORYCLIA [id number] [address] Platelet mean volume (Bld) [Entitic vol] 10.9 fL Normal 9.0-12.7 [facility] Comment on above: Order Comment: Speci men Type: BLOOD SPECIMENOrdering Facility: [facility] Address: [address] [place] [address] Performed By: #### 5 7021-8 ####BAIRD LABORATORYCLIA [id number] [address] [place] Platelets (Bld) [#/Vol] 389 10*3/uL Normal 150-400 [facility] Comment on above: Order Comment: Speci men Type: BLOOD SPECIMENOrdering Facility: [facility] Address: [address] [place] [address] Performed By: #### 5 7021-8 ####BAIRD LABORATORYCLIA [id number] [place] [address] [place] RBC (Bld) [#/Vol] 4.97 10*6/uL Normal 3.90-5.20 [facility] Comment on above: Order Comment: Speci men Type: BLOOD SPECIMENOrdering Facility: [facility] Address: [address] [place] [address] Performed By: #### 5 7021-8 ####BAIRD LABORATORYCLIA [id number] [address] [place] WBC (Bld) [#/Vol] 10.57 10*3/uL Normal 3.70-11.00 [facility] Comment on above: Order Comment: Speci men Type: BLOOD SPECIMENOrdering Facility: [facility] Address: [address] [place] [address] Performed By: #### 5 7021-8 ####BAIRD LABORATORYCLIA [id number] [address] Comprehensive metabolic 2000 panelon 01-27-2025 Albumin [Mass/Vol] 4.3 g/dL Normal 3.9-4.9 [facility] Comment on above: Order Comment: Speci men Type: BLOOD SPECIMENOrdering Facility: [facility] Address: [address] [place] [address] Performed By: #### 1 9123-9, [id number], 26379-5, 69306-8 ####BAIRD LABORATORYCLIA [id number] [place] [address] [place] ALP [Catalytic activity/Vol] 52 U/L Normal 34-123 [facility] Comment on above: Order Comment: Speci men Type: BLOOD SPECIMENOrdering Facility: [facility] Address: [facility] [place] [address] Performed By: #### 1 9123-9, PPI9245, 59391-4, 48812-5 ####BA[facility] LABORATORYCLIA [id number] [address] ALT [Catalytic activity/Vol] 30 U/L Normal 7-38 [facility] Comment on above: Order Comment: Speci men Type: BLOOD SPECIMENOrdering Facility: [facility] Address: [address] [place] [address] Performed By: #### 1 9123-9, [id number], 88486-9, 96036-8 ####BAIRD LABORATORYCLIA [id number] [address] Anion gap [Moles/Vol] 13 mmol/L Normal 8-[address] [facility] Comment on above: Order Comment: Speci men Type: BLOOD SPECIMENOrdering Facility: [facility] Address: [address] [place] [address] Performed By: #### 1 9123-9, [id number], 01066-0, 35133-8 ####BAIRD LABORATORYCLIA [id number] [address] STATES [facility] AST [Catalytic activity/Vol] 41 U/L High 13-35 [facility] Comment on above: Order Comment: Speci men Type: BLOOD SPECIMENOrdering Facility: [facility] Address: [address] [place] [address] Performed By: #### 1 9123-9, [id number], 22397-9, 04281-1 ####BAIRD LABORATORYCLIA [id number] [place] [address] [place] Bilirubin [Mass/Vol] 0.7 mg/dL Normal 0.2-1.3 [facility] Comment on above: Order Comment: Speci men Type: BLOOD SPECIMENOrdering Facility: [facility] Address: [facility] [place] [address] Performed By: #### 1 9123-9, [id number], 40580-7, 28222-5 ####BAIRD LABORATORYCLIA [id number] [place] [address] [place] Calcium [Mass/Vol] 9.5 mg/dL Normal 8.5-10.2 [facility] Comment on above: Order Comment: Speci men Type: BLOOD SPECIMENOrdering Facility: [facility] Address: [facility] [place] [address] Performed By: #### 1 9123-9, OFQ5716, 98471-5, 93035-9 ####BAIRD LABORATORYCLIA [id number] [place] [address] [place] Chloride [Moles/Vol] 103 mmol/L Normal 98-107 [facility] Comment on above: Order Comment: Speci men Type: BLOOD SPECIMENOrdering Facility: [facility] Address: [facility] [place] [address] Performed By: #### 1 9123-9, YNY4163, 63324-2, 58851-3 ####BAIRD LABORATORYCLIA [id number] [place] [address] [place] CO2 [Moles/Vol] 25 mmol/L Normal 22-30 [facility] Comment on above: Order Comment: Speci men Type: BLOOD SPECIMENOrdering Facility: [facility] Address: [facility] [place] [address] Performed By: #### 1 9123-9, KAG1391, 06572-5, 12734-8 ####BAIRD LABORATORYCLIA [id number] [address] Creatinine [Mass/Vol] 0.91 mg/dL Normal 0.58-0.[address] [facility] Comment on above: Order Comment: Vita florez Type: BLOOD SPECIMENOrdering Facility: [facility] Address: [address] [place] [address] Performed By: #### 1 9123-9, [id number], 47098-7, 76910-2 ####[facility] LABORATORYCLIA [id number] [address] [place] eGFRcr SerPlBld CKD-EPI 2020 60 mL/min/1.73m??? Normal >=60 [facility] Comment on above: Order Comment: Vita florez Type: BLOOD SPECIMENOrdering Facility: [facility] Address: [address] [place] [address] Result Comment: Radha mated Glomerular Filtration Rate [...] actual GFR. Performed By: #### 1 9123-9, EMY2063, 20833-9, 49265-5 ####BAIRD LABORATORYCLIA [id number] [address] Glucose [Mass/Vol] 98 mg/dL Normal 74-99 [facility] Comment on above: Order Comment: Vita florez Type: BLOOD SPECIMENOrdering Facility: [facility] Address: [address] [place] [address] Result Comment: The [place] Diabetes Association (ADA) provides guidance for cutoff [...] Standards of Medical Care in Diabetes 2016, [place] [employer]. Diabetes Care. 2016.39(Suppl 1). Performed By: #### 1 9123-9, XDX8180, 44787-8, 28564-0 ####BAIRD LABORATORYCLIA [id number] [place] [address] [place] Potassium [Moles/Vol] 4.8 mmol/L Normal 3.7-5.[address] [facility] Comment on above: Order Comment: Speci men Type: BLOOD SPECIMENOrdering Facility: [facility] Address: [address] [place] [address] Performed By: #### 1 9123-9, EQN9689, 09979-3, 61563-2 ####BA[facility] LABORATORYCLIA [id number] [place] [address] [place] Protein [Mass/Vol] 7.1 g/dL Normal 6.3-8.0 [facility] Comment on above: Order Comment: Speci men Type: BLOOD SPECIMENOrdering Facility: [facility] Address: [address] [place] [address] Performed By: #### 1 9123-9, [id number], 55664-3, 50801-4 ####BAIRD LABORATORYCLIA [id number] [place] [address] [place] Sodium [Moles/Vol] 141 mmol/L Normal 136-144 [facility] Comment on above: Order Comment: Speci men Type: BLOOD SPECIMENOrdering Facility: [facility] Address: [address] [place] [address] Performed By: #### 1 9123-9, LPU2793, 00788-2, 28001-3 ####BAIRD LABORATORYCLIA [id number] [place] [address] [place] Urea nitrogen [Mass/Vol] 25 mg/dL High 7-21 [facility] Comment on above: Order Comment: Speci men Type: BLOOD SPECIMENOrdering Facility: [facility] Address: [address] [place] [address] Performed By: #### 1 9123-9, AAC6106, 80391-1, 25977-8 ####[facility] LABORATORYCLIA [id number] [place] [address] [facility] ED NOTEon 01-27-2025 ED NOTE HNO ID: [id number] Author: MELODIE CLEARY RN Service: Nursing Author Type: Registered Nurse Type: ED Notes Filed: 01/27/2025 15:53 Note Text: This rn attempted to call Janelle dtr message left. [facility] ED NOTE HNO ID: [id number] Author: MELODIE CLEARY RN Service: Nursing Author Type: Registered Nurse Type: ED Notes Filed: 01/27/2025 15:53 Note Text: [facility]. [facility] ED NOTE HNO ID: [id number] Author: MELODIE CLEARY RN Service: Nursing Author Type: Registered Nurse Type: ED Notes Filed: 01/27/2025 15:41 Note Text: This RN attempted to call nursing @ [facility] to update on pt current condition, DX AND admission to [facility], however, unable to reach nursing @ this time. Message to call this RN back was given. [facility] ED NOTE HNO ID: [id number] Author: MELODIE CLEARY RN Service: Nursing Author Type: Registered Nurse Type: ED Notes Filed: 01/27/2025 15:09 Note Text: Pt currently on pure wick external catheter. [facility] ED NOTE HNO ID: [id number] Author: MELODIE CLEARY RN Service: Nursing Author Type: Registered Nurse Type: ED Notes Filed: 01/27/2025 15:08 Note Text: 4 S charge aware report is in for 0405-1. [facility] ED NOTE HNO ID: [id number] Author: JUANCARLOS MARTINEZ RN Service: Nursing Author Type: Registered Nurse Type: ED Notes Filed: 01/27/2025 12:38 Note Text: MD rounds. [facility] ED PROGRESS NOTE (PROVIDER)o n 01-27-2025 ED PROGRESS NOTE (PROVIDER) HNO ID: [id number] Author: ZENOBIA CUNNINGHAM MD Service: ? Author Type: Physician Type: ED PROGRESS NOTE (PROVIDER) Filed: 01/27/2025 14:51 Note Text: ED CONTINUATION OF CARE NOTE Code Status: Prior Assumed care from: Dr. Gilliland Presentation / Findings / Interventions / Plan / Items to Follow Up: 89-year-old female who presents for from [facility] in [place] with a past medical history of congestive [...] Lasix and oxygen was initiated. Discussed with [facility] medicine on-call who will admit for diuresis. ED Course as of 01/27/25 1450 Others' Documentation Tue Jan 27, 2025 1359 CBC + DIFF(!): WBC 10.57 RBC 4.97 Hemoglobin 14.5 Hematocrit 45.1 MCV 90.7 MCH 29.2 MCHC 32.2 RDW-CV 15.9(!) Platelet Count 389 MPV 10.9 Neut% 78.4 Abs Neut (ANC) 8.30(!) Lymph% 12.3 Abs Lymph 1.30 Craig% 7.4 Abs Craig 0.78 Eosin% 0.6 Abs Eosin 0.06 Baso% [...] pneumothorax. [KS] 1411 EKG: Heart 92, NSR. IN 156. QTc 479. No ST elevations consistent with [place]. Nonspecific T wave changes. Left bundle appreciated [...] NO STEMI/Sgarbossa Confirmed by HELDER CABRERA DO ([id number]) on 01/27/2025 12:49:49 PM Medical Decision Making SIGNATURE: Zenobia Cunningham MD PATIENT NAME: aN Good DATE: January 27, 2025 TIME: 2:50 PM PAGER/CONTACT #: [facility] ED PROV NOTEon 01-27-2025 ED PROV NOTE HNO ID: [id number] Author: BEATRIS GILLILAND DO Service: Emergency Medicine Author Type: Physician Type: ED Provider Notes Filed: 01/27/2025 14:12 Note Text: ED Provider Note Patient Name: Na Good : 1935 SERVICE DATE: 01/27/25 History Patient presents with: Multiple Concerns: SHORTNESS OF BREATH THAT HAS BEEN ONGOING AND INSOMNIA; FROM [place], 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 Normal [facility] EKGon 01-27-2025 Electrocardiogram Ventricular Rate : 9 2 BPM Atrial Rate : 92 BPM P-R Interval : 158 ms QRS Duration : 134 ms Q-T Interval : 388 ms QTC Calculation(Bazett) : 479 ms Calculated P [place] : -4 degrees Calculated R [place] : -35 degrees Calculated T [place] : 137 degrees NORMAL SINUS RHYTHM LEFT AXIS DEVIATION LEFT BUNDLE BRANCH BLOCK ABNORMAL ECG NO STEMI/Sgarbossa Confirmed by HELDER CABRERA DO ([id number]) on 01/27/2025 12:49:49 PM NAME : NA GOOD PID : [id number] : 1935 Gender : Female Race : ORD : Procedure Date : Jan 27 2025 12:28:59 Edit Date : Jan 27 2025 12:49:52 Diagnosis: NORMAL SINUS RHYTHM LEFT AXIS DEVIATION LEFT BUNDLE BRANCH BLOCK ABNORMAL ECG NO STEMI/Sgarbossa Confirmed by HELDER CABRERA DO ([id number]) on 01/27/2025 12:49:49 PM Test Reason : Location : 1 : ER ED Overread By : HELDER CABRERA DO Edited By : HELDER CABRERA DO Referred By : , Acquired by : Edgar MARTINEZ [facility] HIGH SENSITIVITY TROPONIN T (INITIAL)on 01-27-2025 Troponin T.cardiac High sensitivity method [Mass/Vol] 32 ng/L High <12 [facility] Comment on above: Order Comment: Speci men Type: BLOOD SPECIMENOrdering Facility: [facility] Address: [address] [place] [address] Performed By: #### 1 9123-9, [id number], 14779-1, 87246-5 ####[facility] [id number] [address] HIGH SENSITIVITY TROPONIN T (SECOND)on 01-27-2025 Troponin T.cardiac High sensitivity method [Mass/Vol] 30 ng/L High <12 [facility] Comment on above: Order Comment: Speci men Type: BLOOD SPECIMENOrdering Facility: [facility] Address: [address] [place] [address] Performed By: #### L [id number] ####[facility] [id number] [address] HIGH SENSITIVITY TROPONIN T (THIRD) 3 HRS AFTER INITIALon 01-27-2025 Troponin T.cardiac High sensitivity method [Mass/Vol] 31 ng/L High <[address] [place] [address] Comment on above: Order Comment: Speci men Type: BLOOD SPECIMENOrdering Facility: [facility] Address: [address] [place] [address] Performed By: #### L [id number] ####[facility] [id number] [place] [id number] [facility] HISTORY PHYSICALon HISTORY PHYSICAL HNO ID: [id number] Author: ANIKA CALI MD Service: Hospital Medicine Author Type: Physician Type: H&P Filed: 01/27/2025 20:33 Note Text: HOSPITAL MEDICINE HISTORY AND PHYSICAL PCP: Johnson Watson MD, MD NIGHT AND WEEKEND COVERAGE: [place] C[facility]: Days: [phone], please page attending physician. Nights: 3585-5040, please page [facility] Night coverage pager [phone]. SUBJECTIVE Chief Complaint: sob HPI: 89-year-old female [...] pt/ot -case mgmt consult pt resides at [facility] [1] Social History Tobacco Use Smoking status: Never Vaping Use Vaping status: Never Used Substance Use Topics Alcohol use: Yes Comment: occasionally Drug use: Never Normal [facility] Magnesium SerPl-ncon 01-27 Magnesium [Mass/Vol] 2.5 mg/dL High 1.7-2.3 [facility] Comment on above: Order Comment: Speci men Type: BLOOD SPECIMENOrdering Facility: [facility] Address: [address] [place] [address] Performed By: #### 1 9123-9, [id number], 96792-1, 55393-3 ####[facility] [id number] [place] [address] [place] [facility] Natriuretic peptide.B prohormone N-Terminal [Mass/Vol] 59132 pg/mL High <450 [facility] Comment on above: Order Comment: Speci men Type: BLOOD SPECIMENOrdering Facility: [facility] Address: [address] [place] [address] Performed By: #### 1 9123-9, [id number], 70291-1, 97886-0 ####[facility] [id number] [place] [address] [place] Urinalysis complete panel (U )on 01-27-2025 Bacteria LM.HPF (Urine sed) [#/Area] Moderate Abnormal None Seen [facility] Comment on above: Order Comment: Speci men Type: URINE SPECIMENOrdering Facility: [facility] Address: [address] [place] [address] Performed By: #### 2 4356-8 ####[facility] [id number] [place] [address] [place]#### 630-4 ####[facility] LABCLIA [id number] [place] [id number] [place] Bilirubin Ql (U) Negative Normal Negative [facility] Comment on above: Order Comment: Speci men Type: URINE SPECIMENOrdering Facility: [facility] Address: [address] [place] [address] Performed By: #### 2 4356-8 ####[facility] [id number] [place] [address] [place]#### 630-4 ####[facility] LABCLIA [id number] [place] [address] [place] Clarity (Unsp spec) Slightly Cloudy Abnormal Clear [facility] Comment on above: Order Comment: Speci men Type: URINE SPECIMENOrdering Facility: [facility] Address: [address] [place] [address] Performed By: #### 2 4356-8 ####[facility]ORY[facility]IA [id number] [place] [address] [place] [facility]#### 630-4 ####[facility] LABCLIA [id number] [place] [id number] [place] Color (U) Yellow Normal Yellow [facility] Comment on above: Order Comment: Speci men Type: URINE SPECIMENOrdering Facility: [facility] Address: [address] [place] [address] Performed By: #### 2 4356-8 ####[facility]IA [id number] [place] [address] [place]#### 630-4 ####[facility] LABCLIA [id number] [place] [address] [place] Epithelial cells LM.HPF (Urine sed) [#/Area] Few Normal [facility] Comment on above: Order Comment: Speci men Type: URINE SPECIMENOrdering Facility: [facility] Address: [address] [place] [address] Performed By: #### 2 4356-8 ####[facility]ORYCLIA [id number] [place] [address] [place]#### 630-4 ####[facility] LABCLIA [id number] [place] [address] [place] Glucose Test strip (U) [Mass/Vol] 3+ Abnormal Negative [facility] Comment on above: Order Comment: Speci men Type: URINE SPECIMENOrdering Facility: [facility] Address: [address] [place] [address] Performed By: #### 2 4356-8 ####[facility]ORYCLIA [id number] [place] [address] [place]#### 630-4 ####[facility] LABCLIA [id number] [place] [address] [place] Hemoglobin Ql (U) Trace Abnormal Negative [facility] Comment on above: Order Comment: Speci men Type: URINE SPECIMENOrdering Facility: [facility] Address: [address] [place] [address] Performed By: #### 2 4356-8 ####[facility]ORYCLIA [id number] [place] [address] [place]#### 630-4 ####[facility] LABCLIA [id number] [place] [address] [place] Ketones Ql (U) 1+ Abnormal Negative [facility] Comment on above: Order Comment: Speci men Type: URINE SPECIMENOrdering Facility: [facility] Address: [address] [place] [address] Performed By: #### 2 4356-8 ####[facility]ORYCLIA [id number] [address] [place]#### 630-4 ####[facility] LABCLIA [id number] [place] [id number] [place] Leukocyte esterase Test strip Ql (U) 1+ Abnormal Negative [facility] Comment on above: Order Comment: Speci men Type: URINE SPECIMENOrdering Facility: [facility] Address: [address] [place] [address] Performed By: #### 2 4356-8 ####[facility]ORYCLIA [id number] [place] [address] [place]#### 630-4 ####[facility] LABCLIA [id number] [place] [address] [place] Nitrite Ql (U) Positive Abnormal Negative [facility] Comment on above: Order Comment: Speci men Type: URINE SPECIMENOrdering Facility: [facility] Address: [address] [place] [address] Performed By: #### 2 4356-8 ####[facility]ORYCLIA [id number] [place] [address] [place]#### 630-4 ####[facility] LABCLIA [id number] [place] [id number] [place] pH (U) 6.5 [pH] Normal 5.0-8.0 [facility] Comment on above: Order Comment: Speci men Type: URINE SPECIMENOrdering Facility: [facility] Address: [address] [place] [address] Performed By: #### 2 4356-8 ####[facility]ATORYCLIA [id number] [place] [address] [place]#### 630-4 ####[facility] LABCLIA [id number] [address] [place] Protein (U) [Mass/Vol] Trace Abnormal Negative [facility] Comment on above: Order Comment: Speci men Type: URINE SPECIMENOrdering Facility: [facility] Address: [address] [place] [address] Performed By: #### 2 4356-8 ####[facility]ORYCLIA [id number] [address]#### 630-4 ####[facility] LABCLIA [id number] [place] [address] [place] RBC LM.HPF (Urine sed) [#/Area] 0-3 /HPF Normal 0-3 /HPF [facility] Comment on above: Order Comment: Speci men Type: URINE SPECIMENOrdering Facility: [facility] Address: [address] [place] [address] Performed By: #### 2 4356-8 ####[facility]ORYCLIA [id number] [address] [place]#### 630-4 ####[facility] LABCLIA [id number] [address] [place] Specific gravity (U) [Rel density] 1.015 Normal 1.005-1.030 [facility] Comment on above: Order Comment: Speci men Type: URINE SPECIMENOrdering Facility: [facility] Address: [address] [place] [address] Performed By: #### 2 4356-8 ####[facility]ATORYCLIA [id number] [place] [address] [place] [facility] [place]#### 630-4 ####[facility] LABCLIA [id number] [place] [address] [place] Urobilinogen Ql (U) 0.2 EU/dL Normal 0.2-1.0 EU/dL [facility] Comment on above: Order Comment: Speci men Type: URINE SPECIMENOrdering Facility: [facility] Address: [address] [place], [place] [address] [id number] Performed By: #### 2 4356-8 ####[facility]ORYCLIA [id number] [address]#### 630-4 ####[facility] LABCLIA [id number] [place] [address] [place] WBC LM.HPF (Urine sed) [#/Area] 11-25 /HPF Abnormal 0-5 /HPF [facility] Comment on above: Order Comment: Speci men Type: URINE SPECIMENOrdering Facility: [facility] Address: [address] [facility] [place] [address] Performed By: #### 2 4356-8 ####[facility]ORYCLIA [id number] [place] [address] [place]#### 630-4 ####[facility] LABCLIA [id number] [place] [address] [place] XR CHEST 1V FRONTAL [...] cardiomediastinal silhouette. Other: . 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, [address] Calcium [Mass/Vol] 8.8 mg/dL Normal 7.6-11.0 [facility] Comment on above: Order Comment: 546.1 Performed By: #### L 500.2500, L100.0500 #### [facility] [address] [place], [address] Chloride [Moles/Vol] 107 mmol/L Normal 98-108 [facility] Comment on above: Order Comment: 546.1 Performed By: #### L 500.2500, L100.0500 #### [facility] [address] [place], [address] CO2 [Moles/Vol] 26.2 mmol/L Normal 21.0-32.0 [facility] Comment on above: Order Comment: 546.1 Performed By: #### L 500.2500, L100.0500 #### [facility] [address] [place], [address] Creatinine [Mass/Vol] 1.09 mg/dL Normal 0.70-1.20 [facility] Comment on above: Order Comment: 546.1 Performed By: #### L 500.2500, L100.0500 #### [facility] [address] [place], [address] GAP 8 Normal -15 [facility] Comment on above: Order Comment: 546.1 Performed By: #### L 500.2500, L100.0500 #### [facility] [address] [place], [address] GFR/1.73 sq M.predicted among non-blacks MDRD (S/P/Bld) [Vol rate/Area] 49 mL/min/{1.73_m2} Low >60 [facility] Comment on above: Order Comment: 546.1 Result Comment: mL/m in/1.73m2 CKD-EPI Creatinine Equation (2020) Performed By: #### L 500.2500, L100.0500 #### [facility] [address] [place], [address] Glucose [Mass/Vol] 75 mg/dL Normal 70-99 [facility] Comment on above: Order Comment: 546.1 Performed By: #### L 500.2500, L100.0500 #### [facility] [address] [place], [address] Potassium [Moles/Vol] 4.1 mmol/L Normal 3.3-5.1 [facility] Comment on above: Order Comment: 546.1 Performed By: #### L 500.2500, L100.0500 #### [facility] [address] [place], [address] Sodium [Moles/Vol] 142 mmol/L Normal 133-145 [facility] Comment on above: Order Comment: 546.1 Performed By: #### L 500.2500, L100.0500 #### [facility] [address] [place], [address] Urea nitrogen [Mass/Vol] 24 mg/dL High 4-19 [facility] Comment on above: Order Comment: 546.1 Performed By: #### L 500.2500, L100.0500 #### [facility] [address] [place], [address] Basic Metabolic Profile (BMP )on 12-29-2024 BUN/CRE 30.7 RATIO High 10-20 [facility] Comment on above: Order Comment: 546.1 Performed By: #### L 500.2500, L100.0500 #### [facility] [address] [place], [address] Calcium [Mass/Vol] 9.1 mg/dL Normal 7.6-11.0 [facility] Comment on above: Order Comment: 546.1 Performed By: #### L 500.2500, L100.0500 #### [facility] [address] [place], [address] Chloride [Moles/Vol] 103 mmol/L Normal 98-108 [facility] Comment on above: Order Comment: 546.1 Performed By: #### L 500.2500, L100.0500 #### [facility] [address] [place], [address] CO2 [Moles/Vol] 22.2 mmol/L Normal 21.0-32.0 [facility] Comment on above: Order Comment: 546.1 Performed By: #### L 500.2500, L100.0500 #### [facility] [address] [place], [address] Creatinine [Mass/Vol] 0.88 mg/dL Normal 0.70-1.20 [facility] Comment on above: Order Comment: 546.1 Performed By: #### L 500.2500, L100.0500 #### [facility] [address] [place], [address] GAP 13 Normal 5-15 [facility] Comment on above: Order Comment: 546.1 Performed By: #### L 500.2500, L100.0500 #### [facility] [address] [place], [address] GFR/1.73 sq M.predicted among non-blacks MDRD (S/P/Bld) [Vol rate/Area] 63 mL/min/{1.73_m2} Normal >60 [facility] Comment on above: Order Comment: 546.1 Result Comment: mL/m in/1.73m2 CKD-EPI Creatinine Equation (2020) Performed By: #### L 500.2500, L100.0500 #### [facility] [address] [place], [address] Glucose [Mass/Vol] 78 mg/dL Normal 70-99 [facility] Comment on above: Order Comment: 546.1 Performed By: #### L 500.2500, L100.0500 #### [facility] [address] [place], [address] Potassium [Moles/Vol] 4.2 mmol/L Normal 3.3-5.1 [facility] Comment on above: Order Comment: 546.1 Performed By: #### L 500.2500, L100.0500 #### [facility] [address] [place], [address] Sodium [Moles/Vol] 138 mmol/L Normal 133-145 [facility] Comment on above: Order Comment: 546.1 Performed By: #### L 500.2500, L100.0500 #### [facility] [address] [place], [address] Urea nitrogen [Mass/Vol] 27 mg/dL High 4-19 [facility] Comment on above: Order Comment: 546.1 Performed By: #### L 500.2500, L100.0500 #### [facility] [address] [place], [address] CBC-Complete Blood Cnt No Di ffon 12-29-2024 Erythrocyte distribution width (RBC) [Ratio] 15.7 % High 11.6-14.6 [facility] Comment on above: Order Comment: 546-1 Performed By: #### L 100.0500, L500.2500 #### [facility] [address] [place], [address] Hematocrit (Bld) [Volume fraction] 41.1 % Normal 37-47 [facility] Comment on above: Order Comment: 546-1 Performed By: #### L 100.0500, L500.2500 #### [facility] [address] [place], [address] Hemoglobin (Bld) [Mass/Vol] 13.7 g/dL Normal 12.0-15.0 [facility] Comment on above: Order Comment: 546-1 Performed By: #### L 100.0500, L500.2500 #### [facility] [address] [place], [address] MCH (RBC) [Entitic mass] 30.0 pg Normal 27.0-32.0 [facility] Comment on above: Order Comment: 546-1 Performed By: #### L 100.0500, L500.2500 #### [facility] [address] [place], [address] MCHC (RBC) [Mass/Vol] 33.3 g/dL Normal 32-36 [facility] Comment on above: Order Comment: 546-1 Performed By: #### L 100.0500, L500.2500 #### [facility] [address] [place], [address] MCV (RBC) [Entitic vol] 90.1 fL Normal 81-99 [facility] Comment on above: Order Comment: 546-1 Performed By: #### L 100.0500, L500.2500 #### [facility] [address] [place], [address] Platelet mean volume (Bld) [Entitic vol] 10.7 fL Normal 6.2-12.0 [facility] Comment on above: Order Comment: 546-1 Performed By: #### L 100.0500, L500.2500 #### [facility] [address] [place], [address] Platelets (Bld) [#/Vol] 331 10*3/uL Normal 150-450 [facility] Comment on above: Order Comment: 546-1 Performed By: #### L 100.0500, L500.2500 #### [facility] [address] [place], [address] RBC (Bld) [#/Vol] 4.56 10*6/uL Normal 4.2-5.4 [facility] Comment on above: Order Comment: 546-1 Performed By: #### L 100.0500, L500.2500 #### [facility] [address] [place], [address] RDW SD 51.1 fl High 35.1-43.9 [facility] Comment on above: Order Comment: 546-1 Performed By: #### L 100.0500, L500.2500 #### [facility] [address] [place], [address] WBC (Bld) [#/Vol] 8.7 10*3/uL Normal 4.4-11.0 [facility] Comment on above: Order Comment: 546-1 Performed By: #### L 100.0500, L500.2500 #### [facility] [address] [place], [address] Basic metabolic 2000 panelon 12-27-2024 Anion gap [Moles/Vol] 11 mmol/L Normal 8-[address] [facility] Comment on above: Order Comment: Speci men Type: BLOOD SPECIMEN [facility] Address: [address] [place] [address] Performed By: #### 2 4321-2 #### [facility] CLIA [id number] [address] [place] [address] [place] Calcium [Mass/Vol] 8.9 mg/dL Normal 8.5-10.2 [facility] Comment on above: Order Comment: Speci men Type: BLOOD SPECIMEN [facility] Address: [address] [place] [address] Performed By: #### 2 4321-2 #### [facility] CLIA [id number] [address] [place] [address] [place] Chloride [Moles/Vol] 97 mmol/L Low 98-107 [facility] Comment on above: Order Comment: Vita florez Type: BLOOD SPECIMEN [facility] Address: [address] [place] [address] Performed By: #### 2 4321-2 #### [facility] CLIA [id number] [address] [place] CO2 [Moles/Vol] 26 mmol/L Normal 22-30 [facility] Comment on above: Order Comment: Speci men Type: BLOOD SPECIMEN [facility] Address: [address] [place] [address] Performed By: #### 2 4321-2 #### [facility] CLIA [id number] [address] [place] [facility] Creatinine [Mass/Vol] 0.97 mg/dL High 0.58-0.[address] [facility] Comment on above: Order Comment: Vita florez Type: BLOOD SPECIMEN [facility] Address: [address] [place] [address] Performed By: #### 2 4321-2 #### [facility] CLIA [id number] [address] eGFRcr SerPlBld CKD-EPI 2020 56 mL/min/1.73m??? Low >=60 [facility] Comment on above: Order Comment: Vita florez Type: BLOOD SPECIMEN [facility] Address: [address] [place] [address] Result Comment: Radha mated Glomerular Filtration Rate [...] GFR. Performed By: #### 2 4321-2 #### [facility] CLIA [id number] [address] [place] Glucose [Mass/Vol] 84 mg/dL Normal 74-99 [facility] Comment on above: Order Comment: Vita florez Type: BLOOD SPECIMEN [facility] Address: [address] [place] [address] Result Comment: The [place] [employer] (ADA) provides guidance for cutoff [...] Standards of Medical Care in Diabetes 2016, [place] [employer]. Diabetes Care. 2016.39(Suppl 1). Performed By: #### 2 4321-2 #### [facility] CLIA [id number] [address] [place] [address] [place] Potassium [Moles/Vol] 3.6 mmol/L Low 3.7-5.[address] [facility] Comment on above: Order Comment: Vita florez Type: BLOOD SPECIMEN [facility] Address: [address] [place] [address] Performed By: #### 2 4321-2 #### [facility] CLIA [id number] [address] [place] [address] [place] Sodium [Moles/Vol] 134 mmol/L Low 136-144 [facility] Comment on above: Order Comment: Vita florez Type: BLOOD SPECIMEN [facility] Address: [address] [place], [place] [address] Performed By: #### 2 4321-2 #### [facility] CLIA [id number] [address] [place] [address] [place] Urea nitrogen [Mass/Vol] 28 mg/dL High 7-21 [facility] Comment on above: Order Comment: Vita florez Type: BLOOD SPECIMEN [facility] Address: [address] [place] [address] Performed By: #### 2 4321-2 #### [facility] CLIA [id number] [address] [place] CBC panel Auto (Bld)on 12-27 Erythrocyte distribution width (RBC) [Ratio] 15.6 % High 11.5-15.0 [facility] Comment on above: Order Comment: Speci men Type: BLOOD SPECIMENOrdering Facility: [facility] Address: [address] [place] [address] Performed By: #### 5 8410-2 ####BA[facility] LABORATORYCLIA [id number] [address] Hematocrit (Bld) [Volume fraction] 41.6 % Normal 36.0-46.0 [facility] Comment on above: Order Comment: Speci men Type: BLOOD SPECIMENOrdering Facility: [facility] Address: [address] [place] [address] Performed By: #### 5 8410-2 ####BA[facility] LABORATORYCLIA [id number] [address] Hemoglobin (Bld) [Mass/Vol] 13.9 g/dL Normal 11.5-15.5 [facility] Comment on above: Order Comment: Speci men Type: BLOOD SPECIMENOrdering Facility: [facility] Address: [address] [place] [address] Performed By: #### 5 8410-2 ####BAIRD LABORATORYCLIA [id number] [address] MCH (RBC) [Entitic mass] 29.2 pg Normal 26.0-34.0 [facility] Comment on above: Order Comment: Speci men Type: BLOOD SPECIMENOrdering Facility: [facility] Address: [address] [place] [address] Performed By: #### 5 8410-2 ####BAIRD LABORATORYCLIA [id number] [address] MCHC (RBC) [Mass/Vol] 33.4 g/dL Normal 30.5-36.[address] [facility] Comment on above: Order Comment: Speci men Type: BLOOD SPECIMENOrdering Facility: [facility] Address: [address] [place] [address] Performed By: #### 5 8410-2 ####BAIRD LABORATORYCLIA [id number] [place] [address] [place] MCV (RBC) [Entitic vol] 87.4 fL Normal 80.0-100.0 [facility] Comment on above: Order Comment: Speci men Type: BLOOD SPECIMENOrdering Facility: [facility] Address: [address] [place] [address] Performed By: #### 5 8410-2 ####BAIDR LABORATORYCLIA [id number] [place] [address] [place] Nucleated RBC (Bld) [#/Vol] 10*3/uL Normal <0.01 [facility] Comment on above: Order Comment: Speci men Type: BLOOD SPECIMENOrdering Facility: [facility] Address: [address] [place] [address] Performed By: #### 5 8410-2 ####BAIRD LABORATORYCLIA [id number] [place] [address] [place] Platelet mean volume (Bld) [Entitic vol] 10.2 fL Normal 9.0-12.7 [facility] Comment on above: Order Comment: Speci men Type: BLOOD SPECIMENOrdering Facility: [facility] Address: [address] [place] [address] Performed By: #### 5 8410-2 ####BAIRD LABORATORYCLIA [id number] [place] [address] [place] Platelets (Bld) [#/Vol] 334 10*3/uL Normal 150-400 [facility] Comment on above: Order Comment: Speci men Type: BLOOD SPECIMENOrdering Facility: [facility] Address: [facility] [place] [address] Performed By: #### 5 8410-2 ####BAIRD LABORATORYCLIA [id number] [place] [address] [place] RBC (Bld) [#/Vol] 4.76 10*6/uL Normal 3.90-5.20 [facility] Comment on above: Order Comment: Specsj gautam Type: BLOOD SPECIMENOrdering Facility: [facility] Address: [address] [place] [address] Performed By: #### 5 8410-2 ####BAIRD LABORATORYCLIA [id number] [address] WBC (Bld) [#/Vol] 11.86 10*3/uL High 3.70-11.00 [facility] Comment on above: Order Comment: Speci men Type: BLOOD SPECIMENOrdering Facility: [facility] Address: [address] [place] [address] Performed By: #### 5 8410-2 ####BAIRD LABORATORYCLIA [id number] [place] [id number] [facility] CNDSon 12-27-2024 CNDS HNO ID: [id number] Author: JOSE ANTONIO MILTON MD Service: General [...] being discharged to her Assisted Living with [facility] Transitions of Care Critical Issues: as [...] medications will be mailed to you From: [employer] [place] [address] - [address] - [phone] enalapril 2.5 mg tablet furosemide 20 mg tablet FUTURE APPOINTMENTS: Follow Up with PCP: Johnson Watson MD, MD The patient's risk for 30-day readmission is determined using the following contributing factors: Predictive Model Details 11% (Low) Factor Value Calculated 12/27/2024 05:20 -16% diagnosis count 5 [facility] READMISSION RISK Model 11% Facility [facility] -8% ED visits (365d) 0 8% Hospital Unit [address] -8% Admissions (365d) 1 -6% ED Encounter 0 -6% Sodium (Avg) 138.33 -5% Malnutrition 0 -5% Observations (365d) 0 -5% Current Age 89 Plan of care discussed with Patient, Family/Significant Other: son, Care Management, and RN I have performed the mxvz-sg-duue and relevant services for a total of >30 minutes. SIGNATURE: Jose Antonio Milton MD DATE: December 27, 2024 TIME: 10:38 AM Normal [facility] Basic metabolic 2000 panelon 12-26-2024 Anion gap [Moles/Vol] 11 mmol/L Normal 8-[address] [facility] Comment on above: Order Comment: Speci men Type: BLOOD SPECIMENOrdering Facility: [facility] Address: [address] [place] [address] Performed By: #### 2 4321-2 ####[facility] LABORATORYCLIA [id number] [place] [address] [place] Calcium [Mass/Vol] 8.9 mg/dL Normal 8.5-10.2 [facility] Comment on above: Order Comment: Speci men Type: BLOOD SPECIMENOrdering Facility: [facility] Address: [address] [place] [address] Performed By: #### 2 4321-2 ####[facility] LABORATORYCLIA [id number] [place] [address] [place] Chloride [Moles/Vol] 101 mmol/L Normal 98-107 [facility] Comment on above: Order Comment: Speci men Type: BLOOD SPECIMENOrdering Facility: [facility] Address: [address] [place] [address] Performed By: #### 2 4321-2 ####BAIRD LABORATORYCLIA [id number] [address] [place] CO2 [Moles/Vol] 28 mmol/L Normal 22-30 [facility] Comment on above: Order Comment: Speci men Type: BLOOD SPECIMENOrdering Facility: [facility] Address: [address] [place] [address] Performed By: #### 2 4321-2 ####[facility] LABORATORYCLIA [id number] [address] STATES [facility] Creatinine [Mass/Vol] 1.07 mg/dL High 0.58-0.[address] [facility] Comment on above: Order Comment: Speci men Type: BLOOD SPECIMENOrdering Facility: [facility] Address: [address] [place] [address] Performed By: #### 2 4321-2 ####BAIRD LABORATORYCLIA [id number] [address] STATES [facility] eGFRcr SerPlBld CKD-EPI 2020 50 mL/min/1.73m??? Low >=60 [facility] Comment on above: Order Comment: Speci gautam Type: BLOOD SPECIMENOrdering Facility: [facility] Address: [address] [place] [address] Result Comment: Radha mated Glomerular Filtration Rate [...] Performed By: #### 2 4321-2 ####BAIRD LABORATORYCLIA [id number] [address] [place] Glucose [Mass/Vol] 77 mg/dL Normal 74-99 [facility] Comment on above: Order Comment: Valei men Type: BLOOD SPECIMENOrdering Facility: [facility] Address: [address] [place] [address] Result Comment: The [place] Diabetes Association (ADA) provides guidance for cutoff [...] Standards of Medical Care in Diabetes 2016, [place] [employer]. Diabetes Care. 2016.39(Suppl 1). Performed By: #### 2 4321-2 ####BAIRD LABORATORYCLIA [id number] [place] [address] [place] Potassium [Moles/Vol] 3.7 mmol/L Normal 3.7-5.[address] [facility] Comment on above: Order Comment: Vita florez Type: BLOOD SPECIMENOrdering Facility: [facility] Address: [address] [place] [address] Performed By: #### 2 4321-2 ####BAIRD LABORATORYCLIA [id number] [place] [address] [place] Sodium [Moles/Vol] 140 mmol/L Normal 136-144 [facility] Comment on above: Order Comment: Valei men Type: BLOOD SPECIMENOrdering Facility: [facility] Address: [address] [place] [address] Performed By: #### 2 4321-2 ####BAIRD LABORATORYCLIA [id number] [place] [address] [place] Urea nitrogen [Mass/Vol] 31 mg/dL High 7-21 [facility] Comment on above: Order Comment: Valei men Type: BLOOD SPECIMENOrdering Facility: [facility] Address: [address] [place] [address] Performed By: #### 2 4321-2 ####BAIRD LABORATORYCLIA [id number] [address] CBC panel Auto (Bld)on 12-26 Erythrocyte distribution width (RBC) [Ratio] 15.8 % High 11.5-15.0 [facility] Comment on above: Order Comment: Speci men Type: BLOOD SPECIMENOrdering Facility: [facility] Address: [address] [place] [address] Performed By: #### 5 8410-2 ####BAIRD LABORATORYCLIA [id number] [address] Hematocrit (Bld) [Volume fraction] 41.9 % Normal 36.0-46.0 [facility] Comment on above: Order Comment: Speci men Type: BLOOD SPECIMENOrdering Facility: [facility] Address: [address] [place] [address] Performed By: #### 5 8410-2 ####BAIRD LABORATORYCLIA [id number] [address] Hemoglobin (Bld) [Mass/Vol] 14.0 g/dL Normal 11.5-15.5 [facility] Comment on above: Order Comment: Speci men Type: BLOOD SPECIMENOrdering Facility: [facility] Address: [address] [place] [address] Performed By: #### 5 8410-2 ####BAIRD LABORATORYCLIA [id number] [address] MCH (RBC) [Entitic mass] 29.7 pg Normal 26.0-34.0 [facility] Comment on above: Order Comment: Speci men Type: BLOOD SPECIMENOrdering Facility: [facility] Address: [address] [place] [address] Performed By: #### 5 8410-2 ####BAIRD LABORATORYCLIA [id number] [address] MCHC (RBC) [Mass/Vol] 33.4 g/dL Normal 30.5-36.[address] [facility] Comment on above: Order Comment: Speci men Type: BLOOD SPECIMENOrdering Facility: [facility] Address: [address] [place] [address] Performed By: #### 5 8410-2 ####BAIRD LABORATORYCLIA [id number] [address] [place] MCV (RBC) [Entitic vol] 89.0 fL Normal 80.0-100.0 [facility] Comment on above: Order Comment: Speci men Type: BLOOD SPECIMENOrdering Facility: [facility] Address: [address] [place] [address] Performed By: #### 5 8410-2 ####BAIRD LABORATORYCLIA [id number] [address] Nucleated RBC (Bld) [#/Vol] 10*3/uL Normal <0.01 [facility] Comment on above: Order Comment: Speci men Type: BLOOD SPECIMENOrdering Facility: [facility] Address: [address] [place] [address] Performed By: #### 5 8410-2 ####BAIRD LABORATORYCLIA [id number] [address] [place] Platelet mean volume (Bld) [Entitic vol] 10.6 fL Normal 9.0-12.7 [facility] Comment on above: Order Comment: Speci men Type: BLOOD SPECIMENOrdering Facility: [facility] Address: [address] [place] [address] Performed By: #### 5 8410-2 ####BAIRD LABORATORYCLIA [id number] [address] [place] Platelets (Bld) [#/Vol] 364 10*3/uL Normal 150-400 [facility] Comment on above: Order Comment: Speci men Type: BLOOD SPECIMENOrdering Facility: [facility] Address: [address] [place] [address] Performed By: #### 5 8410-2 ####BAIRD LABORATORYCLIA [id number] [place] [address] [facility] [place] RBC (Bld) [#/Vol] 4.71 10*6/uL Normal 3.90-5.20 [facility] Comment on above: Order Comment: Specsj florez Type: BLOOD SPECIMENOrdering Facility: [facility] Address: [address] [place] [id number] Performed By: #### 5 8410-2 ####[facility] LABORATORYCLIA [id number] [address] [place] WBC (Bld) [#/Vol] 10.64 10*3/uL Normal 3.70-11.00 [facility] Comment on above: Order Comment: Speci men Type: BLOOD SPECIMENOrdering Facility: [facility] Address: [address] [place] [address] Performed By: #### 5 8410-2 ####S[facility] LABORATORYCLIA [id number] [place] [id number] [facility] ECHOon 12-26-2024 Echocardiography Echocardiography Report: Transthoracic Echo [facility] Date of service: 12/26/2024 12:23:03 PM Ordering physician: COLLEEN OLIVARES Exam indication: cardiomyopathy Technologist: Caterina Mao [facility] Interpreting physician: Rojas Matthews MD PATIENT: Name: [...] * * Final * * * CC [facility] : [id number] csSISUID [facility] NURSING PROGon 12-26-2024 NURSING PROG HNO ID: [id number] Author: RAULITO CHAVEZ, LAKESHIA Service: Nursing Author Type: Registered Nurse Type: Nursing Progress Note Filed: 12/26/2024 14:50 Note Text: PATIENT EDUCATION HEART FAILURE PATIENT NAME: Na Good PATIENT LOCATION: [place] [address] [address]- 2 SURVIVAL SKILLS: Low Sodium Diet Weight [...] Skill discussed. Pt in assisted living in [place], this is fairly new for her. Children are all out of states. Son will discuss daily weight and low sodium meal plan w/ staff. Currently she orders off a menu @ meal times. Pt doesn't drink over 64 ounces per day, but unsure of intake. Medications are provided to her @ [place]. 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 Pt states her normal weighs are b/t [...] Patient Education Electronically Signed By: Raulito Chavez [facility] THERAPY NTon 12-26-2024 THERAPY NT HNO ID: [id number] Author: LESLIE BARRERA PT Service: Physical Therapy Author Type: Physical Therapist Type: Therapy (PT/OT/Speech/Resp) Filed: 12/26/2024 11:56 Note Text: Summary: PT eval Physical Therapy Evaluation Summary SERVICE DATE: 12/26/2024 SERVICE TIME: 1123 to 1146 ROOM: [place] [address] PT 6 Clicks Score: 18 DISCHARGE RECOMMENDATIONS [...] HOME LIVING Patient Lives With: Facility Care ([facility]) Assistance Available: 24-Hour (has a necklace she [...] on feet TREATMENT INTERVENTIONS Evaluation, Therapeutic Exercise (02193) Timed Code Treatment (minutes): 8 Skilled Treatment Time (minutes): 23 $ Evaluation-Low (77410) Billed Units: 1 unit Therapeutic Exercise (54007) Treatment Minutes: 8 $ Therapeutic Exercise (80669) Billed Units: 1 unit TRAINING AND EDUCATION [...] Equipment: Wheele (more content not included)... Normal [facility] Basic metabolic 2000 panelon 12-25-2024 Anion gap [Moles/Vol] 10 mmol/L Normal 8-[address] [facility] Comment on above: Order Comment: Speci men Type: BLOOD SPECIMENOrdering Facility: [facility] Address: [address] [place] [address] Performed By: #### 2 4321-2, 3016-3 ####[facility] LABORATORYCLIA [id number] [place] [address] [place]#### 3024-7 ####[facility] LABCLIA [id number] [place] [id number] [place] Calcium [Mass/Vol] 9.1 mg/dL Normal 8.5-10.2 [facility] Comment on above: Order Comment: Speci men Type: BLOOD SPECIMENOrdering Facility: [facility] Address: [address] [place] [address] Performed By: #### 2 4321-2, 6-3 ####BAIRD LABORATORYCLIA [id number] [place] [address] [place]#### 3024-7 ####[facility] LABCLIA [id number] [place] [id number] [place] Chloride [Moles/Vol] 103 mmol/L Normal 98-107 [facility] Comment on above: Order Comment: Speci men Type: BLOOD SPECIMENOrdering Facility: [facility] Address: [address] [place] [address] Performed By: #### 2 4321-2, 3015-3 ####BAIRD LABORATORYCLIA [id number] [place] [address] [place]#### 3024-7 ####[facility] LABCLIA [id number] [place] [address] [place] CO2 [Moles/Vol] 26 mmol/L Normal 22-30 [facility] Comment on above: Order Comment: Speci men Type: BLOOD SPECIMENOrdering Facility: [facility] Address: [address] [place] [address] Performed By: #### 2 4321-2, 3015-3 ####BAIRD LABORATORYCLIA [id number] [place] [address] [place]#### 3024-7 ####[facility] LABCLIA [id number] [place] [id number] [place] Creatinine [Mass/Vol] 1.01 mg/dL High 0.58-0.[address] [facility] Comment on above: Order Comment: Speci men Type: BLOOD SPECIMENOrdering Facility: [facility] Address: [address] [place] [id number] Performed By: #### 2 4321-2, 3016-3 ####[facility] LABORATORYCLIA [id number] [place] [address] [place]#### 3024-7 ####[facility] LABCLIA [id number] [place] [address] [place] eGFRcr SerPlBld CKD-EPI 2020 53 mL/min/1.73m??? Low >=60 [facility] Comment on above: Order Comment: Vita florez Type: BLOOD SPECIMENOrdering Facility: [facility] Address: [address] [place] [address] Result Comment: Radha mated Glomerular Filtration Rate [...] GFR. Performed By: #### 2 4321-2, 3016-3 ####[facility] LABORATORYCLIA [id number] [place] [address] [place]#### 3024-7 ####[facility] LABCLIA [id number] [place] [address] [place] Glucose [Mass/Vol] 80 mg/dL Normal 74-99 [facility] Comment on above: Order Comment: Vita florez Type: BLOOD SPECIMENOrdering Facility: [facility] Address: [address] [place] [address] Result Comment: The [place] Diabetes Association (ADA) provides guidance for cutoff [...] Standards of Medical Care in Diabetes 2016, [place] [employer]. Diabetes Care. 2016.39(Suppl 1). Performed By: #### 2 4321-2, 6-3 ####BAIRD LABORATORYCLIA [id number] [place] [address] [place]#### 3024-7 ####[facility] LABCLIA [id number] [address] [address] [place] Potassium [Moles/Vol] 4.3 mmol/L Normal 3.7-5.[address] [facility] Comment on above: Order Comment: Speci men Type: BLOOD SPECIMENOrdering Facility: [facility] Address: [address] [place] [address] Performed By: #### 2 4320-2, 3015-3 ####BAIRD LABORATORYCLIA [id number] [place] [address] [place]#### 3024-7 ####[facility] LABCLIA [id number] [place] [id number] [place] Sodium [Moles/Vol] 139 mmol/L Normal 136-144 [facility] Comment on above: Order Comment: Speci men Type: BLOOD SPECIMENOrdering Facility: [facility] Address: [address] [place] [address] Performed By: #### 2 4320-2, 3015-3 ####BAIRD LABORATORYCLIA [id number] [place] [address] [place]#### 3024-7 ####[facility] LABCLIA [id number] [place] [id number] [place] Urea nitrogen [Mass/Vol] 25 mg/dL High 7-21 [facility] Comment on above: Order Comment: Speci men Type: BLOOD SPECIMENOrdering Facility: [facility] Address: [address] [place] [address] Performed By: #### 2 4321-2, 3016-3 ####BAIRD LABORATORYCLIA [id number] [place] [address] [place]#### 3024-7 ####[facility] LABCLIA [id number] [address] [place] CBC panel Auto (Bld)on 12-25 Erythrocyte distribution width (RBC) [Ratio] 15.9 % High 11.5-15.0 [facility] Comment on above: Order Comment: Speci men Type: BLOOD SPECIMENOrdering Facility: [facility] Address: [address] [place] [address] Performed By: #### 5 8410-2 ####BAIRD LABORATORYCLIA [id number] [address] Hematocrit (Bld) [Volume fraction] 40.0 % Normal 36.0-46.0 [facility] Comment on above: Order Comment: Speci men Type: BLOOD SPECIMENOrdering Facility: [facility] Address: [address] [place] [address] Performed By: #### 5 8410-2 ####BAIRD LABORATORYCLIA [id number] [address] STATES [facility] Hemoglobin (Bld) [Mass/Vol] 13.0 g/dL Normal 11.5-15.5 [facility] Comment on above: Order Comment: Speci men Type: BLOOD SPECIMENOrdering Facility: [facility] Address: [address] [place] [address] Performed By: #### 5 8410-2 ####BAIRD LABORATORYCLIA [id number] [address] MCH (RBC) [Entitic mass] 29.1 pg Normal 26.0-34.0 [facility] Comment on above: Order Comment: Speci men Type: BLOOD SPECIMENOrdering Facility: [facility] Address: [address] [place] [address] Performed By: #### 5 8410-2 ####BA[facility] LABORATORYCLIA [id number] [address] [place] MCHC (RBC) [Mass/Vol] 32.5 g/dL Normal 30.5-36.[address] [facility] Comment on above: Order Comment: Speci men Type: BLOOD SPECIMENOrdering Facility: [facility] Address: [address] [place] [address] Performed By: #### 5 8410-2 ####BAIRD LABORATORYCLIA [id number] [place] [address] [place] MCV (RBC) [Entitic vol] 89.7 fL Normal 80.0-100.0 [facility] Comment on above: Order Comment: Speci men Type: BLOOD SPECIMENOrdering Facility: [facility] Address: [address] [place] [address] Performed By: #### 5 8410-2 ####BAIRD LABORATORYCLIA [id number] [address] [place] Nucleated RBC (Bld) [#/Vol] 10*3/uL Normal <0.01 [facility] Comment on above: Order Comment: Speci men Type: BLOOD SPECIMENOrdering Facility: [facility] Address: [address] [place] [address] Performed By: #### 5 8410-2 ####BAIRD LABORATORYCLIA [id number] [address] [place] Platelet mean volume (Bld) [Entitic vol] 10.2 fL Normal 9.0-12.7 [facility] Comment on above: Order Comment: Speci men Type: BLOOD SPECIMENOrdering Facility: [facility] Address: [address] [place] [address] Performed By: #### 5 8410-2 ####BAIRD LABORATORYCLIA [id number] [place] [address] [place] Platelets (Bld) [#/Vol] 324 10*3/uL Normal 150-400 [facility] Comment on above: Order Comment: Speci men Type: BLOOD SPECIMENOrdering Facility: [facility] Address: [address] [place] [address] Performed By: #### 5 8410-2 ####BA[facility] LABORATORYCLIA [id number] [place] [address] [place] RBC (Bld) [#/Vol] 4.46 10*6/uL Normal 3.90-5.20 [facility] Comment on above: Order Comment: Speci men Type: BLOOD SPECIMENOrdering Facility: [facility] Address: [address] [place] [address] Performed By: #### 5 8410-2 ####BA[facility] LABORATORYCLIA [id number] [address] [place] WBC (Bld) [#/Vol] 9.63 10*3/uL Normal 3.70-11.00 [facility] Comment on above: Order Comment: Speci men Type: BLOOD SPECIMENOrdering Facility: [facility] Address: [address] [place] [address] Performed By: #### 5 8410-2 ####BAIRD LABORATORYCLIA [id number] [address] CONSULTon 12-25-2024 CONSULT HNO ID: [id number] Author: ROJAS MATTHEWS MD Service: Cardiovascular Medicine Author Type: Physician Type: Consults Filed: 12/25/2024 15:05 Note Text: . [facility] [place] Domenic Rayo Department of Cardiovascular Medicine SECTION OF REGIONAL CARDIOLOGY/[facility] Consultation Note Name: Na Good : 1935 Primary Physician: Johnson Watson MD, MD Consulting Physician: Liam Smith MD Primary Professor Of Political Science: SERVICE DATE: December 25, 2024 ADMISSION HISTORY [...] diminished int (more content not included)... Normal [facility] HISTORY PHYSICALon HISTORY PHYSICAL HNO ID: [id number] Author: LIAM SMITH MD Service: General Internal Medicine Author Type: Physician Type: H&P Filed: 12/25/2024 14:11 Note Text: [facility] STAFF PHYSICIAN NOTE OF PERSONAL [...] counseling and/or coordinating care for the patient. Jmsu-iz-qyxk time was 35 minutes SIGNATURE: Liam Smith [...] thrombus (eliquis), HTN, tremors, macular degeneration, CAD, LUMBEE, and insomnia. [facility] are from [place], [place]. Daughter, Janelle is at the bedside. (She is from [place]). She moved back to [place] in August due to the altitude- shortness of breath. She is residing at [facility] in [place]. She does not know all her medications as they administer them for her. She provided [place] paperwork. She is A/ox3, very [place], she uses 2 walking sticks to ambulate, she has NEW/ occasional dry, non productive cough, she is on RA, lungs diminished, no edema. Daughter requesting cardiology to see her since she has not established a jail officer since moving here. Daughter informs me while [...] Respiratory: P (more content not included)... Normal [facility] T4 Free SerPl-mCncon 025 Free T4 [Mass/Vol] 1.9 ng/dL High 0.9-1.7 [facility] Comment on above: Order Comment: Speci men Type: BLOOD SPECIMENOrdering Facility: [facility] Address: [address] [place] [address] Performed By: #### 2 4321-2, 3016-3 ####[facility]IA [id number] [address] STATES [place]#### 3024-7 ####[facility] LABCLIA [id number] [address] [place] THERAPY NTon 12-25-2024 THERAPY NT HNO ID: [id number] Author: CAROLE HUGHES OT/Amy Service: Occupational Therapy Author Type: Occupational Therapist Type: Therapy (PT/OT/Speech/Resp) Filed: 12/25/2024 11:37 Note Text: Summary: OT Evaluation Occupational Therapy Evaluation Summary SERVICE DATE: 12/25/2024 SERVICE TIME: 1103 to 1127 ROOM: [place] [address] OT 6 Clicks Score: 20 DISCHARGE RECOMMENDATIONS Home Recommended Discharge Disposition Comments: return to [facility] Anticipated Discharge Needs: Physical Assist at Home, [...] baseline with ADLs and functional mobility/transfers, very [place], follows commands appropriately, reports no questions/concerns for returning to [facility] PRECAUTIONS Bed/Chair Alarm, Fall Risk CURRENT HOSPITAL COURSE Patient presents with abdominal pain and Shortness of Breath, admitted for acute on chronic CHF Relevant Past Medical History: cardiomyopathy, goiter, osteopenia, pleural effusions, macular degeneration, tremors, HTN, LV thrombus, CHF, [place], insomnia HOME LIVING Patient Lives With: Facility Care ([facility]) Assistance Available: 24-Hour (has a necklace she [...] daily living (ADL) TREATMENT INTERVENTIONS Evaluation, Self Mcfp Management (34104) Timed Code Treatment (minutes): 9 Skilled Treatment Time (minutes): 24 TRAINING AND EDUCATION PROVIDED Activity Adaptation/Ibm Websphere Commerce Consultant y Strategies, Adaptive Equipment/DME, Bed Mobility, Benefits of In-Hospital Mobility, Cognitive Skills, Command Following, Discharge Planning, Expected Functional Level, Functional Mobility Involving ADLs, Insight into Deficits, Lower Extremity Dressing, Memory/Attention, Orientation, Positioning, Role of Occupational Therapy, Safety/Judgment, Sitting Balance to Improve Treadwell with ADLs/Self-Care, Standing Balance to Improve [place] with ADLs/Self-Care, Transfer - Bed to Chair, [...] Toilet/Commode S (more content not included)... Normal [facility] TSH SerPl-aCncon 12-25-2024 TSH Qn 0.326 m[IU]/L Normal 0.270-4.200 [facility] Comment on above: Order Comment: Speci men Type: BLOOD SPECIMENOrdering Facility: [facility] Address: [address] [place] [address] Performed By: #### 2 4321-2, 3016-3 ####[facility]ORY[facility]IA [id number] [place] [address] [place]#### 3024-7 ####[facility] LABCLIA [id number] [place] [address] [place] ALLIED HEALTHon 12-24-2024 ALLIED HEALTH HNO ID: [id number] Author: PETER RAHMAN RT(R) Service: Radiology Author Type: Escrow Assistant Type: Allied Health Filed: 12/24/2024 13:03 Note [...] PATIENT PRESENTS WITH AN IMPLANTABLE OR ATTACHED TEXTILE CONSERVATOR: No RADIOLOGY DEPARTMENT: General X-ray: Exam(s) Completed: Chest X-Ray PERIPHERAL IV DATA: Not applicable SIGNED BY: RT Lary(R) December 24, 2024 1:03 PM Normal [facility] Basic metabolic 2000 panelon 12-24-2024 Anion gap [Moles/Vol] 12 mmol/L Normal 8-[address] [facility] Comment on above: Order Comment: Specsj florez Type: BLOOD SPECIMENOrdering Facility: [facility] Address: [address] [place] [address] Performed By: #### H STNT, 80276-1, 02727-9, 73289-6, 3015-3 ####[facility]ORY[facility]IA [id number] [place] [address] [place] Calcium [Mass/Vol] 9.5 mg/dL Normal 8.5-10.2 [facility] Comment on above: Order Comment: Valei gautam Type: BLOOD SPECIMENOrdering Facility: [facility] Address: [address] [place] [address] Performed By: #### H STNT, 84974-7, 82954-8, 22164-0, 3015-3 ####[facility]ORYCLIA [id number] [place] [id number] [place] Chloride [Moles/Vol] 101 mmol/L Normal 98-107 [facility] Comment on above: Order Comment: Speci men Type: BLOOD SPECIMENOrdering Facility: [facility] Address: [address] [place] [address] Performed By: #### H STNT, 21472-6, 69465-2, 54494-7, 3016-3 ####[facility]ORYCLIA [id number] [address] STATES OF [facility] CO2 [Moles/Vol] 23 mmol/L Normal 22-30 [facility] Comment on above: Order Comment: Speci men Type: BLOOD SPECIMENOrdering Facility: [facility] Address: [address] [place] [address] Performed By: #### H STNT, 34814-0, 75428-7, 08098-4, 6-3 ####[facility]ORYCLIA [id number] [address] [place] Creatinine [Mass/Vol] 0.87 mg/dL Normal 0.58-0.[address] [facility] Comment on above: Order Comment: Speci men Type: BLOOD SPECIMENOrdering Facility: [facility] Address: [address] [place] [address] Performed By: #### H STNT, 84226-0, 16089-8, 33221-5, 3015-3 ####[facility]ORATORYCLIA [id number] [address] [place] eGFRcr SerPlBld CKD-EPI 2020 64 mL/min/1.73m??? Normal >=60 [facility] Comment on above: Order Comment: Speci men Type: BLOOD SPECIMENOrdering Facility: [facility] Address: [address] [place] [address] Result Comment: Radha mated Glomerular Filtration Rate [...] actual GFR. Performed By: #### H STNT, 90322-6, 65517-5, 10785-5, 3016-3 ####[facility]ORYCLIA [id number] [place] [address] [place] Glucose [Mass/Vol] 95 mg/dL Normal 74-99 [facility] Comment on above: Order Comment: Speci men Type: BLOOD SPECIMENOrdering Facility: [facility] Address: [address] [place] [address] Result Comment: The [place] Diabetes Association (ADA) provides guidance for cutoff [...] Standards of Medical Care in Diabetes 2016, [place] Diabetes Association. Diabetes Care. 2016.39(Suppl 1). Performed By: #### H STNT, 16784-8, 55680-6, 59188-3, 6-3 ####[facility]ORYCLIA [id number] [place] [id number] [place] Potassium [Moles/Vol] 5.1 mmol/L Normal 3.7-5.[address] [facility] Comment on above: Order Comment: Valei men Type: BLOOD SPECIMENOrdering Facility: [facility] Address: [address] [place] [address] Performed By: #### H STNT, 15082-3, 33691-9, 22978-0, 6-3 ####[facility]ORYCLIA [id number] [place] [id number] [place] Sodium [Moles/Vol] 136 mmol/L Normal 136-144 [facility] Comment on above: Order Comment: Speci men Type: BLOOD SPECIMENOrdering Facility: [facility] Address: [address] [place] [address] Performed By: #### H STNT, 24800-4, 74509-8, 43101-4, 3016-3 ####[facility]ORATORYCLIA [id number] [place] [address] [place] Urea nitrogen [Mass/Vol] 24 mg/dL High 7- [facility] Comment on above: Order Comment: Speci men Type: BLOOD SPECIMENOrdering Facility: [facility] Address: [address] [place] [address] Performed By: #### H STNT, 82985-3, 27817-3, 84257-5, 3016-3 ####[facility]ORATORYCLIA [id number] [place] [address] [place] CBC W Auto Differential pane l (Bld)on 12-24-2024 Basophils (Bld) [#/Vol] 0.09 10*3/uL Normal <0.11 [facility] Comment on above: Order Comment: Speci men Type: BLOOD SPECIMENOrdering Facility: [facility] Address: [address] [place] [address] Performed By: #### 5 7021-8 ####[facility]ORATORYCLIA [id number] [place] [address] [place] Basophils/100 WBC (Bld) 0.9 % Normal [facility] Comment on above: Order Comment: Speci men Type: BLOOD SPECIMENOrdering Facility: [facility] Address: [address] [place] [address] Performed By: #### 5 7021-8 ####[facility]ORATORYCLIA [id number] [address] Differential cell count method Nom (Bld) Auto Normal [facility] Comment on above: Order Comment: Speci men Type: BLOOD SPECIMENOrdering Facility: [facility] Address: [address] [place] [address] Performed By: #### 5 7021-8 ####[facility]ORATORYCLIA [id number] [place] [address] [place] Eosinophils (Bld) [#/Vol] 0.04 10*3/uL Normal <0.46 [facility] Comment on above: Order Comment: Speci men Type: BLOOD SPECIMENOrdering Facility: [facility] Address: [address] [place] [address] Performed By: #### 5 7021-8 ####[facility]ATORYCLIA [id number] [address] [place] Eosinophils/100 WBC (Bld) 0.4 % Normal [facility] Comment on above: Order Comment: Speci men Type: BLOOD SPECIMENOrdering Facility: [facility] Address: [address] [place] [address] Performed By: #### 5 7021-8 ####[facility]ORATORYCLIA [id number] [place] [address] [place] Erythrocyte distribution width (RBC) [Ratio] 16.1 % High 11.5-15.0 [facility] Comment on above: Order Comment: Speci men Type: BLOOD SPECIMENOrdering Facility: [facility] Address: [address] [place] [address] Performed By: #### 5 7021-8 ####[facility]ORATORYCLIA [id number] [address] [place] Hematocrit (Bld) [Volume fraction] 42.0 % Normal 36.0-46.0 [facility] Comment on above: Order Comment: Speci men Type: BLOOD SPECIMENOrdering Facility: [facility] Address: [address] [place] [address] Performed By: #### 5 7021-8 ####[facility]ORATORYCLIA [id number] [address] [place] Hemoglobin (Bld) [Mass/Vol] 14.0 g/dL Normal 11.5-15.5 [facility] Comment on above: Order Comment: Speci men Type: BLOOD SPECIMENOrdering Facility: [facility] Address: [address] [place] [address] Performed By: #### 5 7021-8 ####[facility]ORATORYCLIA [id number] [address] [place] Immature granulocytes (Bld) [#/Vol] 0.04 10*3/uL Normal <0.10 [facility] Comment on above: Order Comment: Speci men Type: BLOOD SPECIMENOrdering Facility: [facility] Address: [address] [place] [address] Performed By: #### 5 7021-8 ####[facility]ATORYCLIA [id number] [address] Immature granulocytes/100 WBC (Bld) 0.4 % Normal [facility] Comment on above: Order Comment: Speci men Type: BLOOD SPECIMENOrdering Facility: [facility] Address: [address] [place] [address] Performed By: #### 5 7021-8 ####[facility]ORATORYCLIA [id number] [place] [address] [place] Lymphocytes (Bld) [#/Vol] 1.01 10*3/uL Normal 1.00-4.00 [facility] Comment on above: Order Comment: Speci men Type: BLOOD SPECIMENOrdering Facility: [facility] Address: [address] [place] [address] Performed By: #### 5 7021-8 ####[facility]ATORYCLIA [id number] [address] Lymphocytes/100 WBC (Bld) 10.4 % Normal [facility] Comment on above: Order Comment: Speci men Type: BLOOD SPECIMENOrdering Facility: [facility] Address: [address] [place] [address] Performed By: #### 5 7021-8 ####[facility]ORATORYCLIA [id number] [address] [place] MCH (RBC) [Entitic mass] 30.0 pg Normal 26.0-34.0 [facility] Comment on above: Order Comment: Speci men Type: BLOOD SPECIMENOrdering Facility: [facility] Address: [address] [place] [address] Performed By: #### 5 7021-8 ####[facility]ORATORYCLIA [id number] [address] [place] MCHC (RBC) [Mass/Vol] 33.3 g/dL Normal 30.5-36.[address] [facility] Comment on above: Order Comment: Speci men Type: BLOOD SPECIMENOrdering Facility: [facility] Address: [address] [place] [address] Performed By: #### 5 7021-8 ####[facility]ORATORYCLIA [id number] [address] [place] MCV (RBC) [Entitic vol] 90.1 fL Normal 80.0-100.0 [facility] Comment on above: Order Comment: Speci men Type: BLOOD SPECIMENOrdering Facility: [facility] Address: [address] [place] [address] Performed By: #### 5 7021-8 ####[facility] LABORATORYCLIA [id number] [place] [address] [place] Monocytes (Bld) [#/Vol] 0.81 10*3/uL Normal <0.87 [facility] Comment on above: Order Comment: Speci men Type: BLOOD SPECIMENOrdering Facility: [facility] Address: [address] [place] [address] Performed By: #### 5 7021-8 ####[facility]ATORYCLIA [id number] [address] Monocytes/100 WBC (Bld) 8.3 % Normal [facility] Comment on above: Order Comment: Speci men Type: BLOOD SPECIMENOrdering Facility: [facility] Address: [address] [place] [address] Performed By: #### 5 7021-8 ####[facility] LABORATORYCLIA [id number] [place] [address] [place] Neutrophils (Bld) [#/Vol] 7.72 10*3/uL High 1.45-7.50 [facility] Comment on above: Order Comment: Speci men Type: BLOOD SPECIMENOrdering Facility: [facility] Address: [address] [place] [address] Performed By: #### 5 7021-8 ####[facility] LABORATORYCLIA [id number] [address] [place] Neutrophils/100 WBC (Bld) 79.6 % Normal [facility] Comment on above: Order Comment: Speci men Type: BLOOD SPECIMENOrdering Facility: [facility] Address: [address] [place] [address] Performed By: #### 5 7021-8 ####[facility] LABORATORYCLIA [id number] [place] [address] [place] Nucleated RBC (Bld) [#/Vol] 10*3/uL Normal <0.01 [facility] Comment on above: Order Comment: Speci men Type: BLOOD SPECIMENOrdering Facility: [facility] Address: [address] [place] [address] Performed By: #### 5 7021-8 ####[facility] LABORATORYCLIA [id number] [address] Nucleated RBC/100 WBC (Bld) [Ratio] 0.0 /100 WBC Normal [facility] Comment on above: Order Comment: Speci men Type: BLOOD SPECIMENOrdering Facility: [facility] Address: [address] [place] [address] Performed By: #### 5 7021-8 ####[facility] LABORATORYCLIA [id number] [place] [address] [place] Platelet mean volume (Bld) [Entitic vol] 10.4 fL Normal 9.0-12.7 [facility] Comment on above: Order Comment: Speci men Type: BLOOD SPECIMENOrdering Facility: [facility] Address: [address] [place] [address] Performed By: #### 5 7021-8 ####[facility] LABORATORYCLIA [id number] [place] [address] [place] Platelets (Bld) [#/Vol] 386 10*3/uL Normal 150-400 [facility] Comment on above: Order Comment: Speci men Type: BLOOD SPECIMENOrdering Facility: [facility] Address: [address] [place] [address] Performed By: #### 5 7021-8 ####[facility] LABORATORYCLIA [id number] [place] [address] [place] RBC (Bld) [#/Vol] 4.66 10*6/uL Normal 3.90-5.20 [facility] Comment on above: Order Comment: Speci men Type: BLOOD SPECIMENOrdering Facility: [facility] Address: [address] [place] [address] Performed By: #### 5 7021-8 ####[facility] LABORATORYCLIA [id number] [address] WBC (Bld) [#/Vol] 9.71 10*3/uL Normal 3.70-11.00 [facility] Comment on above: Order Comment: Speci men Type: BLOOD SPECIMENOrdering Facility: [facility] Address: [address] [place] [address] Performed By: #### 5 7021-8 ####[facility] LABORATORYCLIA [id number] [address] ECG COMPLETEon 12-24-2024 ECG COMPLETE Ventricular Rate : 9 5 BPM Atrial Rate : 95 BPM P-R Interval : 162 ms QRS Duration : 138 ms Q-T Interval : 396 ms QTC Calculation(Bazett) : 497 ms Calculated P [place] : -5 degrees Calculated R [place] : -33 degrees Calculated T [place] : 147 degrees NORMAL SINUS RHYTHM LEFT AXIS DEVIATION LEFT VENTRICULAR HYPERTROPHY WITH QRS WIDENING AND REPOLARIZATION ABNORMALITY ( R in aVL , [place] product ) CANNOT RULE OUT SEPTAL INFARCT , AGE UNDETERMINED ABNORMAL ECG NO PREVIOUS ECGS AVAILABLE Confirmed by ROJAS MATTHEWS MD ([id number]) on 12/25/2024 5:11:53 PM NAME : NA GOOD PID : [id number] : 1935 Gender : Female Race : ORD : [id number] Procedure Date : Dec 24 2024 19:25:38 Edit Date : Dec 25 2024 17:11:57 Diagnosis: NORMAL SINUS RHYTHM LEFT AXIS DEVIATION LEFT VENTRICULAR HYPERTROPHY WITH QRS WIDENING AND REPOLARIZATION ABNORMALITY ( R in aVL , [place] product ) CANNOT RULE OUT SEPTAL INFARCT , AGE UNDETERMINED ABNORMAL ECG NO PREVIOUS ECGS AVAILABLE Confirmed by ROJAS MATTHEWS MD ([id number]) on 12/25/2024 5:11:53 PM Test Reason : Shortness of Breath Location : 5 : 3S 0311 Overread By : ROJAS MATTHEWS MD Edited By : ROJAS MATTHEWS MD Referred By : , Acquired by : [id number], Normal [facility] ED PROV NOTEon 12-24-2024 ED PROV NOTE HNO ID: [id number] Author: OSCAR LIZARRAGA DO Service: Emergency Medicine [...] by: EMS (more content not included)... Normal [facility] Gas and Carbon monoxide pane l (BldV)on 12-24-2024 Base excess Calc (BldV) [Moles/Vol] 1 mmol/L Normal 0-2 [facility] Comment on above: Order Comment: Vita florez Type: BLOOD SPECIMEN [facility] Address: [address] [place] [address] Performed By: #### 2 4321-2 #### [facility] CLIA [id number] [address] [place] [address] [place] Calcium.ionized (Bld) [Mass/Vol] 1.17 mmol/L Normal 1.08-1.30 [facility] Comment on above: Order Comment: Vita florez Type: BLOOD SPECIMEN [facility] Address: [address] [place] [address] Performed By: #### 2 4321-2 #### [facility] CLIA [id number] [address] [place] [address] [place] Carboxyhemoglobin (BldV) [Mass fraction] 1.3 % Normal 0.0-2.0 [facility] Comment on above: Order Comment: Vita florez Type: BLOOD SPECIMEN [facility] Address: [address] [place] [address] Result Comment: Carb oxyhemoglobin Reference Range for Smokers: 2.0-8.0% Performed By: #### 2 4321-2 #### [facility] CLIA [id number] [address] [place] [address] [place] CO2 (BldV) [Partial pressure] 40 mm[Hg] Low 42-55 [facility] Comment on above: Order Comment: Vita florez Type: BLOOD SPECIMEN [facility] Address: [address] [place] [address] Performed By: #### 2 4321-2 #### [facility] CLIA [id number] [address] [place] CO2 adjusted to patient's actual temperature (BldV) [Partial pressure] Normal [facility] Comment on above: Order Comment: Speci men Type: BLOOD SPECIMEN [facility] Address: [address] [place] [address] Performed By: #### 2 4321-2 #### [facility] CLIA [id number] [address] [place] HCO3 (Bld) [Moles/Vol] 25 mmol/L Normal 24-28 [facility] Comment on above: Order Comment: Speci men Type: BLOOD SPECIMEN [facility] Address: [address] [place] [address] Performed By: #### 2 4321-2 #### [facility] CLIA [id number] [address] [place] Hemoglobin (Bld) [Mass/Vol] 13.8 g/dL Normal 11.5-15.5 [facility] Comment on above: Order Comment: Speci men Type: BLOOD SPECIMEN [facility] Address: [address] [place] [address] Performed By: #### 2 4321-2 #### [facility] CLIA [id number] [address] STATES [facility] Lactate [Moles/Vol] 2.2 mmol/L Normal 0.5-2.2 [facility] Comment on above: Order Comment: Speci men Type: BLOOD SPECIMEN [facility] Address: [address] [place] [address] Performed By: #### 2 4321-2 #### [facility] CLIA [id number] [address] [place] Methemoglobin (Bld) [Mass fraction] % Normal 0.0-1.5 [facility] Comment on above: Order Comment: Speci men Type: BLOOD SPECIMEN [facility] Address: [address] [place] [address] Performed By: #### 2 4321-2 #### [facility] CLIA [id number] [address] O2 THERAPY RA=Room Air Normal [facility] Comment on above: Order Comment: Speci men Type: BLOOD SPECIMEN [facility] Address: [address] [place] [address] Performed By: #### 2 4321-2 #### [facility] CLIA [id number] [address] [place] Oxygen (BldV) [Partial pressure] mm[Hg] Low 35-45 [facility] Comment on above: Order Comment: Speci men Type: BLOOD SPECIMEN [facility] Address: [address] [place] [address] Performed By: #### 2 4321-2 #### [facility] CLIA [id number] [address] [place] Oxygen adjusted to patient's actual temperature (BldV) [Partial pressure] Normal [facility] Comment on above: Order Comment: Speci men Type: BLOOD SPECIMEN [facility] Address: [address] [place] [address] Performed By: #### 2 4321-2 #### [facility] CLIA [id number] [address] [place] Oxygen saturation in Venous blood 53 % Low 60-85 [facility] Comment on above: Order Comment: Speci men Type: BLOOD SPECIMEN [facility] Address: [address] [place] [address] Performed By: #### 2 4321-2 #### [facility] CLIA [id number] [address] [place] [address] [place] Oxyhemoglobin (BldV) [Mass fraction] 52 % Low 60-85 [facility] Comment on above: Order Comment: Speci men Type: BLOOD SPECIMEN [facility] Address: [address] [place] [address] Performed By: #### 2 4321-2 #### [facility] CLIA [id number] [address] [place] [address] [place] pH (BldV) 7.41 [pH] Normal 7.32-7.42 [facility] Comment on above: Order Comment: Speci men Type: BLOOD SPECIMEN [facility] Address: [address] [place] [address] Performed By: #### 2 4321-2 #### [facility] CLIA [id number] [address] [place] [address] [place] pH adjusted to patient's actual temperature (BldV) Normal [facility] Comment on above: Order Comment: Speci men Type: BLOOD SPECIMEN [facility] Address: [address] [place] [address] Performed By: #### 2 4321-2 #### [facility] CLIA [id number] [address] [place] [address] [place] Potassium [Moles/Vol] 5.4 mmol/L High 3.5-5.[address] [facility] Comment on above: Order Comment: Speci men Type: BLOOD SPECIMEN [facility] Address: [address] [place] [address] Performed By: #### 2 4321-2 #### [facility] CLIA [id number] [address] [place] [address] [place] HIGH SENSITIVITY TROPONIN To n 12-24-2024 Troponin T.cardiac High sensitivity method [Mass/Vol] 33 ng/L High <12 [facility] Comment on above: Order Comment: Speci men Type: BLOOD SPECIMENOrdering Facility: [facility] Address: [address] [place] [address] Performed By: #### H STNT, 06591-7, 32987-5, 41136-5, 3016-3 ####[facility]ORYCLIA [id number] [place] [address] [place] Magnesium SerPl-mCncon 12-24 Magnesium [Mass/Vol] 2.3 mg/dL Normal 1.7-2.3 [facility] Comment on above: Order Comment: Speci men Type: BLOOD SPECIMENOrdering Facility: [facility] Address: [address] [place] [address] Performed By: #### H STNT, 42889-1, 86539-1, 09471-4, 3016-3 ####[facility]ORATORYCLIA [id number] [place] [id number] [facility] NT-proBNP SerPl-mCncon 12-24 Natriuretic peptide.B prohormone N-Terminal [Mass/Vol] 36434 pg/mL High <450 [facility] Comment on above: Order Comment: Speci men Type: BLOOD SPECIMENOrdering Facility: [facility] Address: [address] [place] [address] Performed By: #### H STNT, 02099-4, 33774-3, 94668-2, 6-3 ####[place] [facility]ORATORYCLIA [id number] [address] TSH SerPl-aCncon 12-24-2024 TSH Qn 0.465 m[IU]/L Normal 0.270-4.200 [facility] Comment on above: Order Comment: Speci men Type: BLOOD SPECIMENOrdering Facility: [facility] Address: [address] [place] [address] Performed By: #### H STNT, 50864-9, 76074-9, 11775-7, 6-3 ####[facility]ORATORYCLIA [id number] [address] OF [facility] XR CHEST 2V FRONTAL/LATon XR CHEST 2V [...] pulmonary edema. Superimposed infection cannot be excluded. 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, [address] HGB Normal 12.0-15.0 [facility] Comment on above: Order Comment: 546.1 Result Comment: LABS WERE DONE 12/09/24 DOES NOT NEED REPEATED PER NURSE Performed By: #### L 500.4050, L100.0500 #### [facility] [address] [place], [address] MCH Normal 27.0-32.0 [facility] Comment on above: Order Comment: 546.1 Result Comment: LABS WERE DONE 12/09/24 DOES NOT NEED REPEATED PER NURSE Performed By: #### L 500.4050, L100.0500 #### [facility] [address] [place], [address] MCHC Normal 32-36 [facility] Comment on above: Order Comment: 546.1 Result Comment: LABS WERE DONE 12/09/24 DOES NOT NEED REPEATED PER NURSE Performed By: #### L 500.4050, L100.0500 #### [facility] [address] [place], [address] MCV Normal 81-99 [facility] Comment on above: Order Comment: 546.1 Result Comment: LABS WERE DONE 12/09/24 DOES NOT NEED REPEATED PER NURSE Performed By: #### L 500.4050, L100.0500 #### [facility] [address] [place], [address] PLT Normal 150-450 [facility] Comment on above: Order Comment: 546.1 Result Comment: LABS WERE DONE 12/09/24 DOES NOT NEED REPEATED PER NURSE Performed By: #### L 500.4050, L100.0500 #### [facility] [address] [place], [address] RBC Normal 4.2-5.4 [facility] Comment on above: Order Comment: 546.1 Result Comment: LABS WERE DONE 12/09/24 DOES NOT NEED REPEATED PER NURSE Performed By: #### L 500.4050, L100.0500 #### [facility] [address] [place], [address] RDW CV Normal 11.6-14.6 [facility] Comment on above: Order Comment: 546.1 Result Comment: LABS WERE DONE 12/09/24 DOES NOT NEED REPEATED PER NURSE Performed By: #### L 500.4050, L100.0500 #### [facility] [address] [place], [address] RDW SD Normal 35.1-43.9 [facility] Comment on above: Order Comment: 546.1 Result Comment: LABS WERE DONE 12/09/24 DOES NOT NEED REPEATED PER NURSE Performed By: #### L 500.4050, L100.0500 #### [facility] [address] [place], [address] WBC Normal 4.4-11.0 [facility] Comment on above: Order Comment: 546.1 Result Comment: LABS WERE DONE 12/09/24 DOES NOT NEED REPEATED PER NURSE Performed By: #### L 500.4050, L100.0500 #### [facility] [address] [place], [address] Comprehensive Metabolic Prof ilon 12-11-2024 ALB Normal 3.4-4.8 [facility] Comment on above: Order Comment: 546.1 Result Comment: LABS WERE DONE 12/09/24 DOES NOT NEED REPEATED PER NURSE Performed By: #### L 500.4050, L100.0500 #### [facility] [address] [place], [address] ALK PHOS Normal 35-104 [facility] Comment on above: Order Comment: 546.1 Result Comment: LABS WERE DONE 12/09/24 DOES NOT NEED REPEATED PER NURSE Performed By: #### L 500.4050, L100.0500 #### [facility] [address] [place], [address] ALT Normal <=34 [facility] Comment on above: Order Comment: 546.1 Result Comment: LABS WERE DONE 12/09/24 DOES NOT NEED REPEATED PER NURSE Performed By: #### L 500.4050, L100.0500 #### [facility] [address] [place], [address] AST Normal <=31 [facility] Comment on above: Order Comment: 546.1 Result Comment: LABS WERE DONE 12/09/24 DOES NOT NEED REPEATED PER NURSE Performed By: #### L 500.4050, L100.0500 #### [facility] [address] [place], [address] BUN Normal 4-19 [facility] Comment on above: Order Comment: 546.1 Result Comment: LABS WERE DONE 12/09/24 DOES NOT NEED REPEATED PER NURSE Performed By: #### L 500.4050, L100.0500 #### [facility] [address] [place], [address] BUN/CRE Normal 10-20 [facility] Comment on above: Order Comment: 546.1 Result Comment: LABS WERE DONE 12/09/24 DOES NOT NEED REPEATED PER NURSE Performed By: #### L 500.4050, L100.0500 #### [facility] [address] [place], [address] Calcium Normal 7.6-11.0 [facility] Comment on above: Order Comment: 546.1 Result Comment: LABS WERE DONE 12/09/24 DOES NOT NEED REPEATED PER NURSE Performed By: #### L 500.4050, L100.0500 #### [facility] [address] [place], [address] CL Normal 98-108 [facility] Comment on above: Order Comment: 546.1 Result Comment: LABS WERE DONE 12/09/24 DOES NOT NEED REPEATED PER NURSE Performed By: #### L 500.4050, L100.0500 #### [facility] [address] [place], [address] CO2 Normal 21.0-32.0 [facility] Comment on above: Order Comment: 546.1 Result Comment: LABS WERE DONE 12/09/24 DOES NOT NEED REPEATED PER NURSE Performed By: #### L 500.4050, L100.0500 #### [facility] [address] [place], [address] CREAT,SERUM Normal 0.70-1.20 [facility] Comment on above: Order Comment: 546.1 Result Comment: LABS WERE DONE 12/09/24 DOES NOT NEED REPEATED PER NURSE Performed By: #### L 500.4050, L100.0500 #### [facility] [address] [place], [address] eGFR Normal >60 [facility] Comment on above: Order Comment: 546.1 Result Comment: LABS WERE DONE 12/09/24 DOES NOT NEED REPEATED PER NURSE Performed By: #### L 500.4050, L100.0500 #### [facility] [address] [place], [address] GAP Normal 5-15 [facility] Comment on above: Order Comment: 546.1 Result Comment: LABS WERE DONE 12/09/24 DOES NOT NEED REPEATED PER NURSE Performed By: #### L 500.4050, L100.0500 #### [facility] [address] [place], [address] GLU Normal 70-99 [facility] Comment on above: Order Comment: 546.1 Result Comment: LABS WERE DONE 12/09/24 DOES NOT NEED REPEATED PER NURSE Performed By: #### L 500.4050, L100.0500 #### [facility] [address] [place], [address] Potassium Normal 3.3-5.1 [facility] Comment on above: Order Comment: 546.1 Result Comment: LABS WERE DONE 12/09/24 DOES NOT NEED REPEATED PER NURSE Performed By: #### L 500.4050, L100.0500 #### [facility] [address] [place], [address] T BILI Normal 0.00-1.30 [facility] Comment on above: Order Comment: 546.1 Result Comment: LABS WERE DONE 12/09/24 DOES NOT NEED REPEATED PER NURSE Performed By: #### L 500.4050, L100.0500 #### [facility] [address] [place], [address] T PROT Normal 5.9-8.4 [facility] Comment on above: Order Comment: 546.1 Result Comment: LABS WERE DONE 12/09/24 DOES NOT NEED REPEATED PER NURSE Performed By: #### L 500.4050, L100.0500 #### [facility] [address] [place], [address] Comprehensive Metabolic Profil Normal 133-145 [facility] Comment on above: Order Comment: 546.1 Result Comment: LABS WERE DONE 12/09/24 DOES NOT NEED REPEATED PER NURSE Performed By: #### L 500.4050, L100.0500 #### [facility] [address] [place], [address] Basic Metabolic Profile (BMP )on 12-09-2024 BUN/CRE 21.8 RATIO High 10-20 [facility] Comment on above: Order Comment: 546.1 Performed By: #### L 500.2500, L100.0500 #### [facility] [address] [place], [address] Calcium [Mass/Vol] 8.8 mg/dL Normal 7.6-11.0 [facility] Comment on above: Order Comment: 546.1 Performed By: #### L 500.2500, L100.0500 #### [facility] [address] [place], [address] Chloride [Moles/Vol] 101 mmol/L Normal 98-108 [facility] Comment on above: Order Comment: 546.1 Performed By: #### L 500.2500, L100.0500 #### [facility] [address] [place], [address] CO2 [Moles/Vol] 23.2 mmol/L Normal 21.0-32.0 [facility] Comment on above: Order Comment: 546.1 Performed By: #### L 500.2500, L100.0500 #### [facility] [address] [place], [address] Creatinine [Mass/Vol] 0.86 mg/dL Normal 0.70-1.20 [facility] Comment on above: Order Comment: 546.1 Performed By: #### L 500.2500, L100.0500 #### [facility] [address] [place], [address] GAP 11 Normal 5-15 [facility] Comment on above: Order Comment: 546.1 Performed By: #### L 500.2500, L100.0500 #### [facility] [address] [place], [address] GFR/1.73 sq M.predicted among non-blacks MDRD (S/P/Bld) [Vol rate/Area] 65 mL/min/{1.73_m2} Normal >60 [facility] Comment on above: Order Comment: 546.1 Result Comment: mL/m in/1.73m2 CKD-EPI Creatinine Equation (2020) Performed By: #### L 500.2500, L100.0500 #### [facility] [address] [place], [address] Glucose [Mass/Vol] 78 mg/dL Normal 70-99 [facility] Comment on above: Order Comment: 546.1 Performed By: #### L 500.2500, L100.0500 #### [facility] [address] [place], [address] Potassium [Moles/Vol] 4.3 mmol/L Normal 3.3-5.1 [facility] Comment on above: Order Comment: 546.1 Performed By: #### L 500.2500, L100.0500 #### [facility] [address] [place], [address] Sodium [Moles/Vol] 135 mmol/L Normal 133-145 [facility] Comment on above: Order Comment: 546.1 Performed By: #### L 500.2500, L100.0500 #### [facility] [address] [place], [address] Urea nitrogen [Mass/Vol] 19 mg/dL Normal 4-19 [facility] Comment on above: Order Comment: 546.1 Performed By: #### L 500.2500, L100.0500 #### [facility] [address] [place], [address] CBC-Complete Blood Cnt No Di ffon 12-09-2024 Erythrocyte distribution width (RBC) [Ratio] 16.4 % High 11.6-14.6 [facility] Comment on above: Order Comment: 546.1 Performed By: #### L 500.2500, L100.0500 #### [facility] [address] [place], [address] Hematocrit (Bld) [Volume fraction] 37.6 % Normal 37-47 [facility] Comment on above: Order Comment: 546.1 Performed By: #### L 500.2500, L100.0500 #### [facility] [address] [place], [address] Hemoglobin (Bld) [Mass/Vol] 12.5 g/dL Normal 12.0-15.0 [facility] Comment on above: Order Comment: 546.1 Performed By: #### L 500.2500, L100.0500 #### [facility] [address] [place], [address] MCH (RBC) [Entitic mass] 29.8 pg Normal 27.0-32.0 [facility] Comment on above: Order Comment: 546.1 Performed By: #### L 500.2500, L100.0500 #### [facility] [address] [place], [address] MCHC (RBC) [Mass/Vol] 33.2 g/dL Normal 32-36 [facility] Comment on above: Order Comment: 546.1 Performed By: #### L 500.2500, L100.0500 #### [facility] [address] [place], [address] MCV (RBC) [Entitic vol] 89.5 fL Normal 81-99 [facility] Comment on above: Order Comment: 546.1 Performed By: #### L 500.2500, L100.0500 #### [facility] [address] [place], [address] Platelet mean volume (Bld) [Entitic vol] 10.5 fL Normal 6.2-12.0 [facility] Comment on above: Order Comment: 546.1 Performed By: #### L 500.2500, L100.0500 #### [facility] [address] [place], [address] Platelets (Bld) [#/Vol] 345 10*3/uL Normal 150-450 [facility] Comment on above: Order Comment: 546.1 Performed By: #### L 500.2500, L100.0500 #### [facility] [address] [place], [address] RBC (Bld) [#/Vol] 4.20 10*6/uL Normal 4.2-5.4 [facility] Comment on above: Order Comment: 546.1 Performed By: #### L 500.2500, L100.0500 #### [facility] [address] [place], [address] RDW SD 53.6 fl High 35.1-43.9 [facility] Comment on above: Order Comment: 546.1 Performed By: #### L 500.2500, L100.0500 #### [facility] [address] [place], [address] WBC (Bld) [#/Vol] 9.3 10*3/uL Normal 4.4-11.0 [facility] Comment on above: Order Comment: 546.1 Performed By: #### L 500.2500, L100.0500 #### [facility] [address] [place], [address] CBC-Complete Blood Cnt No Di ffon 09-18-2024 Erythrocyte distribution width (RBC) [Ratio] 15.3 % High 11.6-14.6 [facility] Comment on above: Order Comment: 546 Performed By: #### L 501.9985, L500.4050, L500.4100, L506.1001, L100.0500 #### [facility] [address] [place], [address] Hematocrit (Bld) [Volume fraction] 42.2 % Normal 37-47 [facility] Comment on above: Order Comment: 546 Performed By: #### L 501.9985, L500.4050, L500.4100, L506.1001, L100.0500 #### [facility] [address] [place], [address] Hemoglobin (Bld) [Mass/Vol] 13.9 g/dL Normal 12.0-15.0 [facility] Comment on above: Order Comment: 546 Performed By: #### L 501.9985, L500.4050, L500.4100, L506.1001, L100.0500 #### [facility] [address] [place], [address] MCH (RBC) [Entitic mass] 30.0 pg Normal 27.0-32.0 [facility] Comment on above: Order Comment: 546 Performed By: #### L 501.9985, L500.4050, L500.4100, L506.1001, L100.0500 #### [facility] [address] [place], [address] MCHC (RBC) [Mass/Vol] 32.9 g/dL Normal 32-36 [facility] Comment on above: Order Comment: 546 Performed By: #### L 501.9985, L500.4050, L500.4100, L506.1001, L100.0500 #### [facility] [address] [place], [address] MCV (RBC) [Entitic vol] 90.9 fL Normal 81-99 [facility] Comment on above: Order Comment: 546 Performed By: #### L 501.9985, L500.4050, L500.4100, L506.1001, L100.0500 #### [facility] [address], [address] Platelet mean volume (Bld) [Entitic vol] 10.8 fL Normal 6.2-12.0 [facility] Comment on above: Order Comment: 546 Performed By: #### L 501.9985, L500.4050, L500.4100, L506.1001, L100.0500 #### [facility] [address] [place], [address] Platelets (Bld) [#/Vol] 337 10*3/uL Normal 150-450 [facility] Comment on above: Order Comment: 546 Performed By: #### L 501.9985, L500.4050, L500.4100, L506.1001, L100.0500 #### [facility] [address] [place], [address] RBC (Bld) [#/Vol] 4.64 10*6/uL Normal 4.2-5.4 [facility] Comment on above: Order Comment: 546 Performed By: #### L 501.9985, L500.4050, L500.4100, L506.1001, L100.0500 #### [facility] [address] [place], [address] RDW SD 50.5 fl High 35.1-43.9 [facility] Comment on above: Order Comment: 546 Performed By: #### L 501.9985, L500.4050, L500.4100, L506.1001, L100.0500 #### [facility] [address] [place], [address] WBC (Bld) [#/Vol] 9.6 10*3/uL Normal 4.4-11.0 [facility] Comment on above: Order Comment: 546 Performed By: #### L 501.9985, L500.4050, L500.4100, L506.1001, L100.0500 #### [facility] [address] [place], [address] Comprehensive Metabolic Prof [facility] 09-18-2024 Albumin [Mass/Vol] 3.4 g/dL Normal 3.4-4.8 [facility] Comment on above: Order Comment: 546 Performed By: #### L 501.9985, L500.4050, L500.4100, L506.1001, L100.0500 #### [facility] [address] [place], [address] Albumin/Globulin [Mass ratio] 1.4 {ratio} Normal 0.9-2.4 [facility] Comment on above: Order Comment: 546 Performed By: #### L 501.9985, L500.4050, L500.4100, L506.1001, L100.0500 #### [facility] [address] [place], [address] ALK PHOS 43 U/L Normal 35-104 [facility] Comment on above: Order Comment: 546 Performed By: #### L 501.9985, L500.4050, L500.4100, L506.1001, L100.0500 #### [facility] [address] [place], [address] ALT [Catalytic activity/Vol] 9 U/L Normal <=34 [facility] Comment on above: Order Comment: 546 Performed By: #### L 501.9985, L500.4050, L500.4100, L506.1001, L100.0500 #### [facility] [address] [place], [address] AST [Catalytic activity/Vol] 20 U/L Normal <=31 [facility] Comment on above: Order Comment: 546 Performed By: #### L 501.9985, L500.4050, L500.4100, L506.1001, L100.0500 #### [facility] [address] [place], [address] Bilirubin [Mass/Vol] 0.37 mg/dL Normal 0.00-1.30 [facility] Comment on above: Order Comment: 546 Performed By: #### L 501.9985, L500.4050, L500.4100, L506.1001, L100.0500 #### [facility] [address] [place], [address] BUN/CRE 27.9 RATIO High 10-20 [facility] Comment on above: Order Comment: 546 Performed By: #### L 501.9985, L500.4050, L500.4100, L506.1001, L100.0500 #### [facility] [address] [place], [address] Calcium [Mass/Vol] 8.8 mg/dL Normal 7.6-11.0 [facility] Comment on above: Order Comment: 546 Performed By: #### L 501.9985, L500.4050, L500.4100, L506.1001, L100.0500 #### [facility] [address] [place], [address] Chloride [Moles/Vol] 108 mmol/L Normal 98-108 [facility] Comment on above: Order Comment: 546 Performed By: #### L 501.9985, L500.4050, L500.4100, L506.1001, L100.0500 #### [facility] [address] [place], [address] CO2 [Moles/Vol] 23.5 mmol/L Normal 21.0-32.0 [facility] Comment on above: Order Comment: 546 Performed By: #### L 501.9985, L500.4050, L500.4100, L506.1001, L100.0500 #### [facility] [address] [place], [address] Creatinine [Mass/Vol] 0.82 mg/dL Normal 0.70-1.20 [facility] Comment on above: Order Comment: 546 Performed By: #### L 501.9985, L500.4050, L500.4100, L506.1001, L100.0500 #### [facility] [address] [place], [address] GAP 10 Normal 5-15 [facility] Comment on above: Order Comment: 546 Performed By: #### L 501.9985, L500.4050, L500.4100, L506.1001, L100.0500 #### [facility] [address] [place], [address] GFR/1.73 sq M.predicted among non-blacks MDRD (S/P/Bld) [Vol rate/Area] 69 mL/min/{1.73_m2} Normal >60 [facility] Comment on above: Order Comment: 546 Result Comment: mL/m in/1.73m2 CKD-EPI Creatinine Equation (2020) Performed By: #### L 501.9985, L500.4050, L500.4100, L506.1001, L100.0500 #### [facility] [address] [place], [address] Globulin (S) [Mass/Vol] 2.5 g/dL Normal 2.2-4.2 [facility] Comment on above: Order Comment: 546 Performed By: #### L 501.9985, L500.4050, L500.4100, L506.1001, L100.0500 #### [facility] [address] [place], [address] Glucose [Mass/Vol] 88 mg/dL Normal 70-99 [facility] Comment on above: Order Comment: 546 Performed By: #### L 501.9985, L500.4050, L500.4100, L506.1001, L100.0500 #### [facility] [address] [place], [address] Potassium [Moles/Vol] 4.1 mmol/L Normal 3.3-5.1 [facility] Comment on above: Order Comment: 546 Performed By: #### L 501.9985, L500.4050, L500.4100, L506.1001, L100.0500 #### [facility] [address] [place], [address] Sodium [Moles/Vol] 141 mmol/L Normal 133-145 [facility] Comment on above: Order Comment: 546 Performed By: #### L 501.9985, L500.4050, L500.4100, L506.1001, L100.0500 #### [facility] [address] [place], [address] T PROT 5.8 g/dL Low 5.9-8.4 [facility] Comment on above: Order Comment: 546 Performed By: #### L 501.9985, L500.4050, L500.4100, L506.1001, L100.0500 #### [facility] [address] [place], [address] Urea nitrogen [Mass/Vol] 23 mg/dL High 4-19 [facility] Comment on above: Order Comment: 546 Performed By: #### L 501.9985, L500.4050, L500.4100, L506.1001, L100.0500 #### [facility] [address] [place], [address] Hemoglobin A1con 09-18-2024 HbA1c (Bld) [Mass fraction] 5.5 % Normal <=5.6 [facility] Comment on above: Order Comment: 546 Result Comment: Norm al < 5.7 % Prediabetic 5.7 - 6.4 % Diabetic >or= 6.5 % Please note range changes. Performed By: #### L 501.9985, L500.4050, L500.4100, L506.1001, L100.0500 #### [facility] [address] [place], [address] Lipid Profileon 09-18-2024 CHOL:HDL 2.43 Normal [facility] Comment on above: Order Comment: 546 Performed By: #### L 501.9985, L500.4050, L500.4100, L506.1001, L100.0500 #### [facility] [address] [place], [address] Cholesterol [Mass/Vol] 136 mg/dL Normal <=200 [facility] Comment on above: Order Comment: 546 Result Comment: Chol esterol level, Desirable <200 mg/dL Borderline high cholesterol 200-239 mg/dL High cholesterol >=240 mg/dL Recommendations of the NCEP Adult Treatment Panel for the following risk-cutoff thresholds for the [place] population. Performed By: #### L 501.9985, L500.4050, L500.4100, L506.1001, L100.0500 #### [facility] [address] [place], [address] Cholesterol in HDL [Mass/Vol] 56 mg/dL Normal [facility] Comment on above: Order Comment: 546 Result Comment: Lyric onal Cholesterol Education Program (NCEP) guidelines: <40 mg/dL: Low HDL-cholesterol (major risk factor for CHD) >= 60 mg/dL: High HDL-cholesterol (negative risk factor for CHD) HDL-cholesterol is affected by a number of factors, e.g. smoking, exercise, hormones, sex and age. Performed By: #### L 501.9985, L500.4050, L500.4100, L506.1001, L100.0500 #### [facility] [address] [place], [address] Cholesterol in LDL [Mass/Vol] 67 mg/dL Normal [facility] Comment on above: Order Comment: 546 Result Comment: Bord wkalkz=052-287 mg/dL Higher Jcfd=434 mg/dL or greater Performed By: #### L 501.9985, L500.4050, L500.4100, L506.1001, L100.0500 #### [facility] [address] [place], [address] Cholesterol in VLDL [Mass/Vol] 14 mg/dL Normal 5-40 [facility] Comment on above: Order Comment: 546 Performed By: #### L 501.9985, L500.4050, L500.4100, L506.1001, L100.0500 #### [facility] [address] [place], [address] Triglyceride [Mass/Vol] 68 mg/dL Normal [facility] Comment on above: Order Comment: 546 Result Comment: The drugs N-Acetylcysteine and Metamizole may falsely depress this assay. Normal range: <150 mg/dL Borderline High: 150-199 mg/dL High: 200-499 mg/dL Very High: >500 mg/dL Performed By: #### L 501.9985, L500.4050, L500.4100, L506.1001, L100.0500 #### [facility] [address] [place], [address] Vitamin D,25 Hydroxyon 09-18 Vitamin D 25-OH 52.7 ng/mL Normal 30-100 [facility] Comment on above: Order Comment: 546 Result Comment: Alicia min D Status Deficiency: <20 ng/mL (50nmol/L) Insufficiency: 20-30 ng/mL (50-75 nmol/L) Sufficiency: 30-100 ng/mL (75-250 nmol/L) Toxicity: >100 ng/mL (>250 nmol/L) Performed By: #### L 501.9985, L500.4050, L500.4100, L506.1001, L100.0500 #### [facility] [address] [place], [place], [id number] US DOPPLER CAROTIDon 020 US DOPPLER CAROTID Patient Info Name: NA OGOD Age: 84 years : 1935 Gender: Female Exam Date: 02/03/2020 2:02 PM Site Location: [facility] Patient Status: Outpatient Reference Services Head: Tatyana Olmos, VILMA, RDMS (AB), RVT Referring Physician: RUBIN CHIRINOS ; Indications R09.89 - Other specified symptoms and signs involving the circulatory and respiratory systems Procedure Description 48001 Duplex examination using B-mode, color and spectral [...] Morris DO on 02/03/2020 03:27 PM Normal [facility] US DOPPLER CAROTID Patient Info Name: NA GOOD Age: 84 years : 1935 Gender: Female Exam Date: 02/03/2020 2:02 PM Site Location: [facility] Patient Status: Outpatient Reference Services Head: Tatyana Olmos, VILMA, RDMS (AB), RVT Referring Physician: RUBIN CHIRINOS ; Indications R09.89 - Other specified symptoms and signs involving the circulatory and respiratory systems Procedure Description 28893 Duplex examination using B-mode, color and spectral [...] SunFeb 03, 2020 3:27:40 PM EDT Normal [facility] Patient Info Name: NA GOOD Age: 84 years : 1935 Gender: Female Exam Date: 02/03/2020 2:02 PM Site Location: [facility] Patient Status: Outpatient Reference Services Head: Tatyana Olmos, VILMA, RDMS (AB), RVT Referring Physician: RUBIN CHIRINOS ; Indications R09.89 - Other specified symptoms and signs involving the circulatory and respiratory systems Procedure Description 14667 Duplex examination using B-mode, color and spectral [...] HAM Morris DO on 02/03/2020 03:27 PM [facility] Interface, Rad In Heartlab Xper Echopacs - 02/03/2020 3:27 PM EDT Patient Info Name: NA GOOD Age: 84 years : 1935 Gender: Female Exam Date: 02/03/2020 2:02 PM Site Location: [facility] Patient Status: Outpatient Reference Services Head: Tatyana Olmos, VILMA, RDMS (AB), RVT Referring Physician: RUBIN CHIRINOS ; Indications R09.89 - Other specified symptoms and signs involving the circulatory and respiratory systems Procedure Description 08629 Duplex examination using B-mode, color and spectral [...] HAM Morris DO on 02/03/2020 03:27 PM [facility] ECG 12-LEADon 01-13-2019 Atrial Rate [facility] P [place] [facility] P-R Interval [facility] Q-T Interval [facility] Q-T Interval (corrected) [facility] QRS Duration [facility] QTC Calculation (Bezet) [facility] [place] [facility] [place] [facility] Ventricular Rate [facility] ECG 12 Leadon 01-15-2018 Atrial Rate Invalid Interpretation Code [facility] P [place] Invalid Interpretation Code [facility] P-R Interval Invalid Interpretation Code [facility] Q-T Interval Invalid Interpretation Code [facility] Q-T Interval (corrected) Invalid Interpretation Code [facility] QRS Duration Invalid Interpretation Code [facility] QTC Calculation (Bezet) Invalid Interpretation Code [facility] R [place] Invalid Interpretation Code [facility] T [place] Invalid Interpretation Code [facility] Ventricular Rate Invalid Interpretation Code [facility] CBC w/o Diffon 12-19-2017 Erythrocyte distribution width Auto Ratio (RBC) 14.2 % Normal 10.0-14.4 [facility] Comment on above: Performed By: #### L IPID, CMET, TSH, CBCWOD ####Unless otherwise noted, all testing performed by [address] [id number]: [id number] Director: Alverto Fitzgerald M.D. Hematocrit Auto Volume Fraction (Bld) 44.2 % Normal 34.4-44.8 [facility] Comment on above: Performed By: #### L IPID, CMET, TSH, CBCWOD ####Unless otherwise noted, all testing performed by [address] [phone]: [id number] Director: Alverto Fitzgerald M.D. Hemoglobin mass conc (Bld) 14.6 g/dL Normal 11.6-15.4 [facility] Comment on above: Performed By: #### L IPID, CMET, TSH, CBCWOD ####Unless otherwise noted, all testing performed by [address] [phone]: [id number] Director: Alverto Fitzgerald M.D. MCH Auto Entitic mass (RBC) 29.4 pg Normal 27.9-33.9 [facility] Comment on above: Performed By: #### L IPID, CMET, TSH, CBCWOD ####Unless otherwise noted, all testing performed by [address] [phone]: [id number] Director: Alverto Fitzgerald M.D. MCHC Auto mass conc (RBC) 33.0 g/dL Low 33.1-35.1 [facility] Comment on above: Performed By: #### L IPID, CMET, TSH, CBCWOD ####Unless otherwise noted, all testing performed by [address] [phone]: [id number] Director: Alverto Fitzgerald M.D. MCV Auto Entitic volume (RBC) 89.1 fL Normal 82.6-98.9 [facility] Comment on above: Performed By: #### L IPID, CMET, TSH, CBCWOD ####Unless otherwise noted, all testing performed by [address] [phone]: [id number] Director: Alverto Fitzgerald M.D. Platelet mean volume Auto Entitic volume (Bld) 8.6 fL Normal 7.0-10.6 [facility] Comment on above: Performed By: #### L IPID, CMET, TSH, CBCWOD ####Unless otherwise noted, all testing performed by [address] [phone]: [id number] Director: Alverto Fitzgerald M.D. Platelets Auto #/vol (Bld) 349 K/mcL Normal 162-402 [facility] Comment on above: Performed By: #### L IPID, CMET, TSH, CBCWOD ####Unless otherwise noted, all testing performed by [address] [phone]: [id number] Director: Alverto Fitzgerald M.D. RBC Auto #/vol (Bld) 4.96 M/mcL Normal 3.7-5.0 [facility] Comment on above: Performed By: #### L IPID, CMET, TSH, CBCWOD ####Unless otherwise noted, all testing performed by [address] [phone]: [id number] Director: Alverto Fitzgerald M.D. WBC Auto #/vol (Bld) 9.0 K/mcL Normal 3.4-10.6 [facility] Comment on above: Performed By: #### L IPID, CMET, TSH, CBCWOD ####Unless otherwise noted, all testing performed by [address] [phone]: [id number] Director: Alverto Fitzgerald M.D. Comprehensive Metabolic Pane [facility] 12-19-2017 Albumin mass conc 3.7 g/dL Normal 3.2-5.2 [facility] Comment on above: Performed By: #### L IPID, CMET, TSH, CBCWOD ####Unless otherwise noted, all testing performed by [address] [phone]: [id number] Director: Alverto Fitzgerald M.D. ALP enzyme act/vol 54 U/L Normal 40-150 [facility] Comment on above: Performed By: #### L IPID, CMET, TSH, CBCWOD ####Unless otherwise noted, all testing performed by [place] [phone]: [id number] Director: Alverto Fitzgerald M.D. ALT enzyme act/vol 15 U/L Normal 14-65 [facility] Comment on above: Result Comment: This test result might be falsely depressed or falsely elevated onsamples drawn from patients taking Sulfasalazine and Sulfapyridine.Venipuncture should occur prior to taking either of these drugs. Performed By: #### L IPID, CMET, TSH, CBCWOD ####Unless otherwise noted, all testing performed by [address] [phone]: [id number] Director: Alverto Fitzgerald M.D. AST enzyme act/vol 15 U/L Normal 0-45 [facility] Comment on above: Result Comment: This test result might be falsely depressed or falsely elevated onsamples drawn from patients taking Sulfasalazine and Sulfapyridine.Venipuncture should occur prior to taking either of these drugs. Performed By: #### L IPID, CMET, TSH, CBCWOD ####Unless otherwise noted, all testing performed by [address] [phone]: [id number] Director: Alverto Fitzgerald M.D. Bilirubin mass conc 0.5 mg/dL Normal 0.3-1.2 [facility] Comment on above: Performed By: #### L IPID, CMET, TSH, CBCWOD ####Unless otherwise noted, all testing performed by [address] [phone]: [id number] Director: Alverto Fitzgerald M.D. Calcium mass conc 8.9 mg/dL Normal 8.4-10.2 [facility] Comment on above: Performed By: #### L IPID, CMET, TSH, CBCWOD ####Unless otherwise noted, all testing performed by [address] [phone]: [id number] Director: Alverto Fitzgerald M.D. Chloride molar conc 106 mmol/L Normal 98-108 [facility] Comment on above: Performed By: #### L IPID, CMET, TSH, CBCWOD ####Unless otherwise noted, all testing performed by [address] [phone]: [id number] Director: Alverto Fitzgerald M.D. CO2 molar conc 29 mmol/L Normal 21-32 [facility] Comment on above: Performed By: #### L IPID, CMET, TSH, CBCWOD ####Unless otherwise noted, all testing performed by [address] [phone]: [id number] Director: Alverto Fitzgerald M.D. Creatinine mass conc 0.76 mg/dL Normal 0.60-1.20 [facility] Comment on above: Performed By: #### L IPID, CMET, TSH, CBCWOD ####Unless otherwise noted, all testing performed by [address], [place] [phone]: [id number] Director: Alverto Fitzgerald M.D. GFR/1.73 sq M predicted among blacks MDRD vol rate/area (S/P/Bld) mL/min/{1.73_m2} Normal [facility] Comment on above: Result Comment: Afri can Thai GFR Calc Performed By: #### L IPID, CMET, TSH, CBCWOD ####Unless otherwise noted, all testing performed by [address] [phone]: [id number] Director: Alverto Fitzgerald M.D. GFR/1.73 sq M predicted among non-blacks MDRD vol rate/area (S/P/Bld) mL/min/{1.73_m2} Normal [facility] Comment on above: Result Comment: Non- [...] ####Unless otherwise noted, all testing performed by [address] [phone]: [id number] Director: Alverto Fitzgerald M.D. Glucose mass conc 84 mg/dL Normal 70-99 [facility] Comment on above: Result Comment: This test result might be falsely depressed or falsely elevated onsamples drawn from patients taking Sulfasalazine and Sulfapyridine.Venipuncture should occur prior to taking either of these drugs. Performed By: #### L IPID, CMET, TSH, CBCWOD ####Unless otherwise noted, all testing performed by [address] [phone]: [id number] Director: Alverto Fitzgerald M.D. Potassium molar conc 4.1 mmol/L Normal 3.5-5.1 [facility] Comment on above: Performed By: #### L IPID, CMET, TSH, CBCWOD ####Unless otherwise noted, all testing performed by [address] [phone]: [id number] Director: Alverto Fitzgerald M.D. Protein mass conc 7.2 g/dL Normal 6.0-8.0 [facility] Comment on above: Performed By: #### L IPID, CMET, TSH, CBCWOD ####Unless otherwise noted, all testing performed by [address] [phone]: [id number] Director: Alverto Fitzgerald M.D. Sodium molar conc 142 mmol/L Normal 135-145 [facility] Comment on above: Performed By: #### L IPID, CMET, TSH, CBCWOD ####Unless otherwise noted, all testing performed by [address] [phone]: [id number] Director: Alverto Fitzgerald M.D. Urea nitrogen mass conc 19 mg/dL Normal 8-25 [facility] Comment on above: Performed By: #### L IPID, CMET, TSH, CBCWOD ####Unless otherwise noted, all testing performed by [address] [phone]: [id number] Director: Alverto Fitzgerald M.D. Lipid Panelon 12-19-2017 Cholesterol in HDL mass conc 68 mg/dL High 40-59 [facility] Comment on above: Performed By: #### L IPID, CMET, TSH, CBCWOD ####Unless otherwise noted, all testing performed by [place] [phone]: [id number] Director: Alverto Fitzgerald M.D. Cholesterol in LDL mass conc 150 mg/dL Normal 10-150 [facility] Comment on above: Performed By: #### L IPID, CMET, TSH, CBCWOD ####Unless otherwise noted, all testing performed by [place] [phone]: [id number] Director: Alverto Fitzgerald M.D. Cholesterol in VLDL mass conc 24 mg/dL Normal 5-40 [facility] Comment on above: Performed By: #### L IPID, CMET, TSH, CBCWOD ####Unless otherwise noted, all testing performed by [address] [phone]: [id number] Director: Alverto Fitzgerald M.D. Cholesterol mass conc 243 mg/dL High 100-199 [facility] Comment on above: Performed By: #### L IPID, CMET, TSH, CBCWOD ####Unless otherwise noted, all testing performed by [address] [phone]: [id number] Director: Alverto Fitzgerald M.D. Cholesterol.total/Cho lesterol in HDL mass ratio 3.6 {ratio} Normal 3.2-5.0 [facility] Comment on above: Result Comment: Robert harley Coronary Heart Disease Risk Factor (CHDRF):Average risk= 4.41/2 Average risk= 3.32 times Average risk= 7.1 Performed By: #### L IPID, CMET, TSH, CBCWOD ####Unless otherwise noted, all testing performed by [address] [phone]: [id number] Director: Alverto Fitzgerald M.D. Triglyceride mass conc 121 mg/dL High 25-120 [facility] Comment on above: Performed By: #### L IPID, CMET, TSH, CBCWOD ####Unless otherwise noted, all testing performed by [address] [phone]: [id number] Director: Alverto Fitzgerald M.D. Microalbumin, Ur Random Pane epifanio 12-19-2017 Creatinine, Urine Random 124.00 mg/dL Normal [facility] Comment on above: Result Comment: No e stablished reference range. Performed By: #### M KANDI ####Unless otherwise noted, all testing performed by [address] [phone]: [id number] Director: Alverto Fitzgerald M.D. MIALB/Creatinine Ratio 9 Normal 0.0-25.0 [facility] Comment on above: Performed By: #### M KANDI ####Unless otherwise noted, all testing performed by [address] [phone]: [id number] Director: Alverto Fitzgerald M.D. Microalbumin, Urine Random 1.1 mg/dL Normal 0.0-1.8 [facility] Comment on above: Performed By: #### M IALBURR ####Unless otherwise noted, all testing performed by [address] [phone]: [id number] Director: Alverto Fitzgerald M.D. TSHon 12-19-2017 T4 free mass conc 1.1 ng/dL Normal 0.7-1.7 [facility] Comment on above: Result Comment: Samp les from patients routinely receiving high dose biotin therapy(100-300 mg/day) may show falsely increased results. Please correlateclinically. Performed By: #### L IPID, CMET, TSH, CBCWOD ####Unless otherwise noted, all testing performed by [address] [phone]: [id number] Director: Alverto Fitzgerald M.D. Thyrotropin Qn 0.22 uIU/mL Low 0.320-5.000 [facility] Comment on above: Result Comment: Samp les from patients routinely receiving high dose biotin therapy(100-300 mg/day) may show falsely decreased results. Please correlateclinically. Performed By: #### L IPID, CMET, TSH, CBCWOD ####Unless otherwise noted, all testing performed by [address] [phone]: [id number] Director: Alverto Fitzgerald M.D. CBC and Differentialon 12-19 Basophils 1.1 % Invalid Interpretation Code [facility] Basophils 0.1 K/mcL Invalid Interpretation Code 0 - 0.2 [facility] Eosinophils 0.3 K/mcL Invalid Interpretation Code 0 - 0.5 [facility] Erythrocytes (RBC) 4.79 M/mcL Invalid Interpretation Code 3.7 - 5.0 [facility] Hematocrit (HCT) 42.7 % Invalid Interpretation Code 34.4 - 44.8 % [facility] Hemoglobin (HGB) 14.1 g/dL Invalid Interpretation Code 11.6 - 15.4 g/dL [facility] Lymphocytes 2.4 K/mcL Invalid Interpretation Code 1.0 - 3.7 [facility] MCH 29.5 pg Invalid Interpretation Code 27.9 - 33.9 pg [facility] MCHC 33.1 g/dL Invalid Interpretation Code 33.1 - 35.1 g/dL [facility] MCV 89.2 fL Invalid Interpretation Code 82.6 - 98.9 [facility] Monocytes 0.6 K/mcL Invalid Interpretation Code 0.1 - 0.6 [facility] Neutrophils 4.4 K/mcL Invalid Interpretation Code 1.2 - 6.9 [facility] Platelet mean volume (PMV) 8.7 fL Invalid Interpretation Code 7.0 - 10.6 [facility] Platelets 278 K/mcL Invalid Interpretation Code 162 - 402 [facility] RDW-CA 14.3 % Invalid Interpretation Code 10 - 14.4 % [facility] Segmented Neut 56.5 % Invalid Interpretation Code [facility] T8 suppressor/100 cells 4.2 10*3/uL Invalid Interpretation Code [facility] T8 suppressor/100 cells 30.3 10*3/uL Invalid Interpretation Code [facility] T8 suppressor/100 cells 7.9 10*3/uL Invalid Interpretation Code [facility] WBC (Leukocytes) 7.8 K/mcL Invalid Interpretation Code 3.4 - 10.6 [facility] Comprehensive Metabolic Pane epifanio 12-19-2016 Alanine aminotransferase (ALT) 20 U/L Invalid Interpretation Code 14 - 65 U/L [facility] Albumin 3.6 g/dL Invalid Interpretation Code 3.2 - 5.2 g/dL [facility] Alkaline phosphatase (ALP) 39 U/L Low 40 - 150 U/L [facility] Aspartate aminotransferase (AST) 14 U/L Invalid Interpretation Code 0 - 45 U/L [facility] Calcium 9.4 mg/dL Invalid Interpretation Code 8.4 - 10.2 mg/dL [facility] Chloride 107 mmol/L Invalid Interpretation Code 98 - 108 mmol/L [facility] CO2 30 mmol/L Invalid Interpretation Code 21 - 32 mmol/L [facility] Creatinine 0.72 mg/dL Invalid Interpretation Code 0.6 - 1.2 mg/dL [facility] eGFR (black) mL/min/{1.73_m2} Invalid Interpretation Code ml/min/1.73s q.m [facility] eGFR (non-black) mL/min/{1.73_m2} Invalid Interpretation Code ml/min/1.73s q.m [facility] Glucose 86 mg/dL Invalid Interpretation Code 70 - 99 mg/dL [facility] Potassium 4.3 mmol/L Invalid Interpretation Code 3.5 - 5.1 mmol/L [facility] Protein 6.8 g/dL Invalid Interpretation Code 6 - 8 g/dL [facility] Sodium 145 mmol/L Invalid Interpretation Code 135 - 145 mmol/L [facility] Urea nitrogen 17 mg/dL Invalid Interpretation Code 8 - 25 mg/dL [facility] Urine, bilirubin presence 0.6 mg/dL Invalid Interpretation Code 0.3 - 1.2 mg/dL [facility] Lipid Panelon 12-19-2016 Cholesterol 242 mg/dL High 100 - 199 mg/dL [facility] Cholesterol to HDL Ratio 3.2 {ratio} Invalid Interpretation Code 3.2 - 5.0 [facility] HDL Cholesterol 76 mg/dL High 40 - 59 mg/dL [facility] Interpretation and review of laboratory results Abnormal Invalid Interpretation Code [facility] LDL Cholesterol 150 mg/dL Invalid Interpretation Code 10 - 150 mg/dL [facility] Triglyceride 85 mg/dL Invalid Interpretation Code 25 - 120 mg/dL [facility] VLDL 17 mg/dL Invalid Interpretation Code 5 - 40 mg/dL [facility] Vital Signs Date Time Vital Sign Value Performing Clinician Facility 07-28-2020 13:54-0400 BMI (Body Mass Index) 22.43 kg/m2 [facility] 07-28-2020 13:54-0400 Body Temperature 98.71 [degF] [facility] 07-28-2020 13:54-0400 Body weight 57.42 kg [facility] 07-28-2020 13:54-0400 BP Diastolic 82 mm[Hg] [facility] 07-28-2020 13:54-0400 BP Systolic 139 mm[Hg] [facility] 07-28-2020 13:54-0400 Height 160 cm [facility] 07-28-2020 13:54-0400 Pulse (Heart Rate) 84 /min [facility] 07-28-2020 13:54-0400 Pulse Oximetry 97 % [facility] 01-15-2020 14:24-0400 BMI (Body Mass Index) 22.5 kg/m2 [facility] 01-15-2020 14:24-0400 Body weight 57.61 kg [facility]in [facility] 01-15-2020 14:24-0400 BP Diastolic 78 mm[Hg] [facility]in [facility] 01-15-2020 14:24-0400 BP Systolic 136 mm[Hg] [facility] 01-15-2020 14:24-0400 Height 160 cm [facility] 01-15-2020 14:24-0400 Pulse (Heart Rate) 64 /min [facility] 01-15-2020 14:24-0400 Pulse Oximetry 97 % Rubin [facility] 12-08-2019 11:20-0400 BMI (Body Mass Index) 22.5 kg/m2 [facility] 12-08-2019 11:20-0400 Body Temperature 97.81 [degF] [facility] 12-08-2019 11:20-0400 Body weight 57.61 kg [facility] 12-08-2019 11:20-0400 BP Diastolic 70 mm[Hg] [facility] 12-08-2019 11:20-0400 BP Systolic 133 mm[Hg] [facility] 12-08-2019 11:20-0400 Height 160 cm [facility] 12-08-2019 11:20-0400 Pulse (Heart Rate) 98 /min [facility] 06-16-2019 09:58-0500 BP Diastolic 74 mm[Hg] [facility] 06-16-2019 09:58-0500 BP Systolic 130 mm[Hg] [facility] 06-16-2019 09:58-0500 Pulse (Heart Rate) 82 /min [facility] 06-16-2019 09:58-0500 Pulse Oximetry 97 % [facility] 06-16-2019 09:58-0500 Respiratory Rate 18 /min David Ludwig [facility] 06-16-2019 09:54-0500 BMI (Body Mass Index) 23.13 kg/m2 David Ludwig [facility] 06-16-2019 09:54-0500 Body Temperature 97.9 [degF] David Ludwig [facility] 06-16-2019 09:54-0500 Body weight 59.24 kg David Ludwig [facility] 06-16-2019 09:54-0500 Height 160 cm David Ludwig [facility] 01-13-2019 11:15-0400 BMI (Body Mass Index) 22.14 kg/m2 Rubin Chirinos [facility] 01-13-2019 11:15-0400 Body weight 56.7 kg Rubinyara Chirinos [facility] 01-13-2019 11:15-0400 BP Diastolic 71 mm[Hg] Rubin Chirinos [facility] 01-13-2019 11:15-0400 BP Systolic 140 mm[Hg] Rubinyara Chirinos [facility] 01-13-2019 11:15-0400 Height 160 cm Rubin Chirinos [facility] 01-13-2019 11:15-0400 Pulse (Heart Rate) 80 /min Rubinyara Chirinos [facility] 01-13-2019 11:15-0400 Pulse Oximetry 99 % Rubinyara Chirinos [facility] 12-04-2018 09:08-0400 BMI (Body Mass Index) 22.43 kg/m2 Ceasar Arce [facility] 12-04-2018 09:08-0400 Body weight 57.42 kg Ceasar Arce [facility] 12-04-2018 09:08-0400 BP Diastolic 80 mm[Hg] Ceasar [place] 12-04-2018 09:08-0400 BP Systolic 167 mm[Hg] Ceasar [place] 12-04-2018 09:08-0400 Height 160 cm Ceasardario Arce [facility] 12-04-2018 09:08-0400 [facility] Rate[facility] 74 [facility] 09:08-0400 Pulse Oximetry 98 % Ceasar Arce [facility] 06-26-2018 11:00-0500 BP Diastolic 77 mm[Hg] Davidcleveland Ludwig [facility] 06-26-2018 11:00-0500 BP Systolic 129 mm[Hg] David Ludwig [facility] 06-26-2018 11:00-0500 Pulse (Heart Rate) 66 /min David Ludwig [facility] 06-26-2018 11:00-0500 Pulse Oximetry 96 % Davidcleveland Ludwig [facility] 06-26-2018 10:56-0500 BMI (Body Mass Index) 22.18 kg/m2 Davidcleveland Ludwig [facility] 06-26-2018 10:56-0500 Body Temperature 98.2 [degF] David Ludwig [facility] 06-26-2018 10:56-0500 Height 160 cm David Ludwig [facility] 06-26-2018 10:56-0500 Weight 56.79 kg Davidcleveland Ludwig [facility] 01-15-2018 10:01-0400 BMI (Body Mass Index) 22.32 kg/m2 [facility] 01-15-2018 10:01-0400 BP Diastolic 80 mm[Hg] [facility] 01-15-2018 10:01-0400 BP Systolic 152 mm[Hg] [facility] 01-15-2018 10:01-0400 Height 160 cm [facility] 01-15-2018 10:01-0400 Pulse (Heart Rate) 81 /min [facility] 01-15-2018 10:01-0400 Pulse Oximetry 98 % [facility] 01-15-2018 10:01-0400 Weight 57.15 kg [facility] 12-27-2017 10:27-0400 BMI (Body Mass Index) 22.27 kg/m2 Davidcleveland Ludwig [facility] 12-27-2017 10:27-0400 Body Temperature 97.59 [degF] David Ludwig [facility] 12-27-2017 10:27-0400 BP Diastolic 75 mm[Hg] David Ludwig [facility] 12-27-2017 10:27-0400 BP Systolic 159 mm[Hg] Davidcleveland Ludwig [facility] 12-27-2017 10:270400 Height 160 cm David Ludwig [facility] 12-27-2017 10:27-0400 Pulse (Heart Rate) 82 /min David Ludwig [facility] 12-27-2017 10:27-0400 Pulse Oximetry 97 % David Ludwig [facility] 12-27-2017 10:27-0400 Respiratory Rate 12 /min David Ludwig [facility] 12-27-2017 10:27-0400 Weight 57.02 kg David Ludwig [facility] 06-26-2017 09:46-0500 BMI (Body Mass Index) 23.06 kg/m2 Alfredo [facility] 06-26-2017 09:46-0500 Body Temperature 98.29 [degF] [facility] 06-26-2017 09:46-0500 BP Diastolic 80 mm[Hg] [facility] 06-26-2017 09:46-0500 BP Systolic 140 mm[Hg] [facility] 06-26-2017 09:46-0500 Height 160 cm [facility] 06-26-2017 09:46-0500 Pulse (Heart Rate) 68 /min [facility] 06-26-2017 09:46-0500 Weight 59.06 kg [facility] 06-20-2017 14:38-0500 BMI (Body Mass Index) 23.03 kg/m2 Ceasar Arce [facility] 06-20-2017 14:38-0500 BP Diastolic 79 mm[Hg] Ceasar [place] [facility] 06-20-2017 14:38-0500 BP Systolic 160 mm[Hg] Ceasar [place] [facility] 06-20-2017 14:38-0500 Height 160 cm Ceasardario Ovieodo [facility] 06-20-2017 14:38-0500 Pulse (Heart Rate) 67 /min Ceasardario Alleno [facility] 06-20-2017 14:38-0500 Pulse [facility]ximetry 99 % [facility]-2017 14:38-0500 Weight 58.97 kg Ceasar Arce [facility] 01-08-2017 10:21-0400 BMI (Body Mass Index) 22.32 kg/m2 Rubin Chirinos [facility] Phone: 01-08-2017 10:21-0400 BP Diastolic 85 mm[Hg] Rubin Chirinos [facility] Work Phone: 01-08-2017 10:21-0400 BP Systolic 165 mm[Hg] Rubin Chirinos [facility] Work Phone: 01-08-2017 10:21-0400 Height 160 cm Rubin Chirinos [facility] Work Phone: 01-08-2017 10:21-0400 Pulse (Heart Rate) 64 /min Rubin Chirinos [facility] Work Phone: 01-08-2017 10:21-0400 Pulse Oximetry 97 % Rubin Chirinos [facility] Work Phone: 01-08-2017 10:21-0400 Weight 57.15 kg Rubin Chirinos [facility] Work Phone: 12-13-2016 14:18-0400 BMI (Body Mass Index) 22.44 kg/m2 Ceasar [place] [facility] Work Phone: 12-13-2016 14:18-0400 BP Diastolic 81 mm[Hg] Ceasar [place] [facility] Work Phone: 12-13-2016 14:18-0400 BP Systolic 167 mm[Hg] Ceasar [place] [facility] Work Phone: 12-13-2016 14:18-0400 Height 160 cm Ceasar [place] [facility] Work Phone: 12-13-2016 14:18-0400 Pulse (Heart Rate) 69 /min Ceasar Dmitryhodko [facility] Work Phone: 12-13-2016 14:18-0400 Pulse Oximetry 99 % Ceasar [place] [facility] Work Phone: 12-13-2016 14:18-0400 Weight 57.47 kg Ceasar Arce [facility] Work Phone: Encounters Encounter Date Encounter Type Care Provider Facility Start: 03-02-2025 Evaluation and manag ement of inpatient BISMARK SALES Facility:[facility] Start: 02-25-2025 End: 02-25-2025 ambulatory LIDIA ARMENTA Facility:[facility] Start: 02-24-2025 ambulatory Alexey Deperro OLS Facili ty:[facility] Start: 02-19-2025 ambulatory Alexey Deperro OLS Facili ty:[facility] Start: 02-04-2025 End: 02-04-2025 ambulatory JOVANI COCHRAN Facility:[facility] Start: 01-27-2025 End: 01-29-2025 Evaluation and management of inpatient JOHNSON WATSON Facility:[facility] Start: 01-05-2025 ambulatory Alexey Deperro OLS Facili ty:[facility] Start: 12-29-2024 ambulatory Alexey Deperro OLS Facili ty:[facility] Start: 12-24-2024 End: 12-27-2024 Evaluation and management of inpatient JOHNSON WATSON Facility:[facility] Start: 12-09-2024 ambulatory Alexey Deperro OLS Facili ty:[facility] Start: 09-18-2024 ambulatory Alexey Deperro OLS Facili ty:[facility] Start: 01-14-2021 ambulatory [facility] Start: 12-07-2020 ambulatory [facility] Start: 09-21-2020 End: 09-21-2020 Refill Shante Hargrove LPN [facility] Comment on above: Benign essential hyp ertension; Chronic combined systolic and diastolic congestive heart failure (HCC); Insomnia, unspecified type Start: 07-28-2020 End: 07-28-2020 [facility] Start: 07-28-2020 End: 07-28-2020 Office outpatient visit 25 minutes David Ludwig Work Phone: [facility] Comment on above: Benign essential hyp ertension (Primary Dx); Chronic combined systolic and diastolic congestive heart failure (HCC); Mixed hyperlipidemia Start: 05-07-2020 End: 05-07-2020 Orders Only Alley Lopez Jigar Work Phone: [facility] Start: 02-03-2020 End: 02-04-2020 Patient encounter procedure [facility] Start: 02-03-2020 End: 02-03-2020 Subsequent hospital visit by physician Rubin Chirinos Work Phone: [facility] Comment on above: Bruit of left caroti d artery Start: 01-15-2020 End: 01-15-2020 Office outpatient visit 25 minutes Rubin Chirinos Work Phone: [facility] Comment on above: Bruit of left caroti d artery (Primary Dx); Chronic combined systolic and diastolic congestive heart failure (HCC); Mixed hyperlipidemia; Nonrheumatic aortic valve insufficiency; Benign essential hypertension; Left carotid bruit Start: 12-08-2019 End: 12-08-2019 Patient encounter procedure David Ludwig Work Phone: [facility] Comment on above: General medical exam (Primary Dx); At low risk for fall; Need for vaccination Start: 12-01-2019 End: 12-05-2019 Patient [facility] Start: 06-16-2019 End: 06-16-2019 Office outpatient visit 25 minutes David Ludwig Work Phone: [facility] Comment on above: Benign essential hyp ertension (Primary Dx); Chronic combined systolic and diastolic congestive heart failure (HCC); Mixed hyperlipidemia; Subclinical hypothyroidism; Insomnia, unspecified type Start: 01-13-2019 End: 01-13-2019 Office outpatient visit 25 minutes Rubin Chirinos Work Phone: [facility] Comment on above: Cardiomyopathy, unsp ecified type (HCC) (Primary Dx); Chronic combined systolic and diastolic congestive heart failure (HCC); Mixed hyperlipidemia; Benign essential hypertension Start: 12-04-2018 End: 12-04-2018 Clinical Support Kriss Marcelo [facility] Comment on above: Sensorineural hearin g loss, bilateral (Primary Dx); Sudden hearing loss, unspecified laterality Start: 12-04-2018 End: 12-04-2018 Office outpatient visit 25 minutes Ceasar Tonywilmer Dmitryserglouise Work Phone: [facility] Comment on above: Hearing loss due to cerumen impaction, bilateral (Primary Dx); Sensorineural hearing loss, bilateral Start: 09-26-2018 End: 09-26-2018 Patient encounter procedure Eve Yap [facility] Comment on above: Medicare Wellness Vi sit (VM to schedule MWV) Start: 06-26-2018 End: 06-26-2018 Office outpatient visit 25 minutes David Ludwig Work Phone: [facility] Comment on above: Benign essential hyp ertension (Primary Dx); Mixed hyperlipidemia; Chronic combined systolic and diastolic congestive heart failure (HCC); Mood disorder (HCC) Start: 01-28-2018 Patient encounter procedure Escobar Gallegos Facility:[place] Start: 01-28-2018 End: 01-28-2018 Patient encounter Escobar Gallegos Work Phone: [facility] Start: 01-15-2018 End: 01-15-2018 Office outpatient visit 25 minutes Escobar Gallegos Work Phone: [facility] Comment on above: Congestive heart elsy lure, unspecified HF chronicity, unspecified heart failure type (HCC) (Primary Dx); Dyspnea on exertion; Nonrheumatic aortic valve insufficiency; Benign essential hypertension Start: 12-27-2017 End: 12-27-2017 Office outpatient visit 25 minutes Davidcleveland Mortensen Nadia Work Phone: [facility] Comment on above: Benign essential hyp ertension (Primary Dx); Mixed hyperlipidemia; Subclinical hypothyroidism; Chronic combined systolic and diastolic congestive heart failure (HCC); Need for influenza vaccination Start: 12-19-2017 Patient encounter procedure Alfredo Barreto Facility:[place] Start: 12-19-2017 End: 12-19-2017 Patient encounter Devonte Hassan [facility] Start: 11-07-2017 Abner Schafer Work Phone: [facility] Comment on above: Medication Refill Start: 06-26-2017 Patient encounter procedure Alfredo WMacrina Ladonnalisa Facility:[place] Start: 06-26-2017 Office/outpatient vi sit, est, level 3 Alfredo Barreto Work Phone: [facility] Start: 06-25-2017 Patient encounter procedure Oscar Mendes Facility:[place] Start: 06-20-2017 Patient encounter Ceasar Sreedharfidelia simoncamrynparish Prykhodko Work Phone: [facility] Start: 06-18-2017 Patient encounter procedure Oscar Mendes Facility:[place] Start: 01-12-2017 End: 01-12-2017 Ambulatory Rubin Chirinos Work Phone: [facility] Start: 01-08-2017 Office/outpatient vi sit, est, level 5 Rubin Chirinos Work Phone: [facility] Start: 12-19-2016 End: 12-19-2016 Ambulatory Oscar Mendes Work Phone: [facility] Start: 12-15-2016 End: 12-15-2016 Ambulatory Oscar Sylillian Work Phone: [facility] Start: 12-13-2016 End: 12-13-2016 Office outpatient new 30 minutes Ceasar Jimenezaurorafrancine Prykhodko Work Phone: [facility] Comment on above: Hearing loss due to cerumen impaction, bilateral (Primary Dx);Presbycusis, unspecified laterality Start: 11-24-2016 End: 11-24-2016 Ambulatory Oscar Mendes Work Phone: [facility] Procedures Date Procedure Procedure Detail Performing Clinician Start: 02-03-2020 Carotid artery doppl er assessment Rubin Chirinos Work Phone: Start: 12-08-2019 Adult depression screening assessment David Ludwig Start: 01-13-2019 12 lead ECG Rubin swift Work Phone: Start: 12-18-2018 Adult depression screening assessment Rubin Chirinos Start: 01-15-2018 End: 01-15-2018 Ecg routine ecg w/least 12 lds w/i&r Escobar AmyMacrina Gallegos Work Phone: Plan of Treatment Date Care Activity Detail Author Start: 12-07-2029 Tetanus vaccination Tetanus: Every 10yrs [facility] Start: 12-27-2022 History and physical examination, annual for health maintenance Wellness Visit [facility] Start: 12-22-2021 Influenza vaccination Sequential Influenza Vaccine (#1) [facility] Start: 01-31-2021 End: 01-31-2021 Office Visit 01/31/2021 Office Visit Primary Care David Ludwig MD [facility] [place] [address] [place], [place] [id number] [facility] Start: 12-07-2020 Administration of herpes zoster vaccine Zoster Vaccines (1 of 2) [facility] Comment on above: Postponed from 10/21/1985 (Treatment Not Available) Start: 12-07-2020 Adolescent depression screening assessment Depression Screening (PHQ9) [facility] Start: 12-07-2020 Depression screening using PHQ-9 (Patient Health Questionnaire 9) score [facility] Start: 12-07-2020 Fall risk assessment Falls Risk Assessment [facility] Start: 12-07-2020 History and physical examination, annual for health maintenance Wellness Visit [facility] Start: 08-09-2020 COVID-19 Vaccine (3 - Booster for Moderna series) COVID-19 Vaccine (3 - Booster for Moderna series) [facility] Start: 07-28-2020 End: 07-28-2020 Office Visit 07/28/2020 Office Visit Primary Care David Ludwig MD [address] [place] [address] [phone] [facility] Start: 07-28-2020 End: 07-28-2021 Microalbumin measurement, urine, quantitative Microalbumin/Creatinine Ratio, UR Random Lab Routine Benign essential hypertension Expected: 07/28/2020, Expires: 07/28/2021 [facility] Comment on above: Expected: 07/28/2020, Expires: Start: 06-10-2020 End: 06-10-2020 Office Visit 06/10/2020 Office Visit Primary Care David Ludwig MD [address] [place] [address] [phone] [facility] Start: 02-03-2020 End: 02-03-2020 Appointment 02/03/2020 Appointment Cardiology Rubin Chirinos MD [address] [place] [address] [phone] [facility] Start: 12-23-2019 Influenza vaccination given Sequential Influenza Vaccine (#1) [facility] Start: 12-19-2019 Depression screening using PHQ-9 (Patient Health Questionnaire 9) score DEPRESSION SCREENING (PHQ9) [facility] Start: 12-19-2019 Fall risk assessment Falls Risk Assessment [facility] Start: 12-08-2019 End: 12-08-2019 Office Visit 12/08/2019 Office Visit Primary Care David Ludwig MD [address] [place] [address] [phone] [facility] Start: 06-16-2019 End: 06-16-2020 Microalbumin measurement, urine, quantitative Microalbumin/Creatinine Ratio, UR Random Lab Routine Benign essential hypertension Expected: 06/16/2019, Expires: 06/16/2020 [facility] Comment on above: Expected: 06/16/2019, Expires: Start: 06-16-2019 End: 06-16-2019 Office Visit 06/16/2019 Office Visit Primary Care David Ludwig MD [address] [place] [address] [phone] [facility] Start: 01-13-2019 End: 01-13-2019 Office Visit 01/13/2019 Office Visit Cardiology Rubin Chirinos MD [address] [place] [address] [phone] [facility] Start: 12-22-2018 Influenza vaccination given SEQUENTIAL INFLUENZA VACCINE (#1) [facility] Start: 12-20-2018 End: 12-20-2018 Office Visit 12/20/2018 Office Visit Primary Care David Ludwig MD [address] [place] [address] [phone] [facility] Start: 12-18-2018 End: 12-18-2018 Office Visit 12/18/2018 Office Visit Primary Care David Ludwig MD [address] [place] [address] [phone] [facility] Start: 06-26-2018 End: 06-27-2019 Microalbumin measurement, urine, quantitative Microalbumin, Urine, Random Routine Benign essential hypertension Expected: 06/26/2018, Expires: 06/27/2019 [facility] Comment on above: Expected: 06/26/2018, Expires: 0 Start: 06-26-2018 End: 06-26-2018 Ambulatory 06/26/2018 Office Visit Primary Care David Ludwig MD [address] [place] [address] [phone] [facility] Start: 06-19-2018 End: 06-19-2018 Ambulatory 06/19/2018 Clinical Support Primary Care [facility] Start: 01-28-2018 End: 01-28-2018 Ambulatory 01/28/2018 Appointment Cardiology Escobar Gallegos CNP [address] [place] [address] [phone] [facility] Start: 01-10-2018 End: 01-10-2018 Ambulatory 01/10/2018 Office Visit Cardiology Rubin Chirinos MD [address] [place] [address] [phone] [facility] Start: 12-27-2017 End: 12-27-2017 Ambulatory [facility] Start: 12-22-2017 Influenza vaccination SEQUENTIAL INFLUENZA VACCINE (#1) [facility] Start: 12-18-2017 Ambulatory 12/18/2017 Clinical Support Primary Care [facility] Start: 06-26-2017 Ambulatory [facility] Start: 06-25-2017 Ambulatory 06/25/2017 Hospital Encounter Oscar Mendes MD [address] [place] [address] [phone] [facility] Start: 06-20-2017 Ambulatory 06/20/2017 Office Visit Otolaryngology Ceasar Arce MD [address] [place] [address] [phone] [facility] Start: 06-18-2017 Ambulatory 06/18/2017 Hospital Encounter Oscar Mendes MD [address] [place] [address] [phone] [facility] Start: 01-12-2017 Ambulatory 01/12/2017 Hospital Encounter Cardiology Rubin Chirinos MD [address] [place] [address] [phone] [facility] Start: 01-08-2017 Ambulatory 01/08/2017 Office Visit Cardiology Rubin Chirinos MD [address] [facility] [place] [address] [phone] [facility] Start: 12-22-2016 Influenza vaccination SEQUENTIAL INFLUENZA VACCINE (#1) [facility] Work Phone: Start: 12-22-2016 SEQUENTIAL INFLUENZA VACCINE (#1) SEQUENTIAL INFLUENZA VACCINE (#1) [facility] Work Phone: Start: 12-13-2016 Ambulatory 12/13/2016 Office Visit Otolaryngology Ceasar Arce MD [address] [place] [address] [phone] [facility] Start: 03-02-2016 Pneumococcal vaccination PNEUMOCOCCAL VACCINE AGE 65+ (2 of 2 - PCV13) [facility] Start: 10-21-2000 Fall risk assessment Steadi Fall Risk Assessment [facility] Start: 10-21-2000 Pneumococcal vaccination PNEUMOCOCCAL VACCINE AGE 65+ (1 of 2 - PCV13) [facility] Work Phone: Start: 10-21-2000 PNEUMOCOCCAL VACCINE AGE 65+ (1 of 2 - PCV13) PNEUMOCOCCAL VACCINE AGE 65+ (1 of 2 - PCV13) [facility] Work Phone: Start: 1995 Zoster vacc, sc ZOSTER VACCINE [facility] Work Phone: Start: 10-21-1985 Administration of herpes zoster vaccine ZOSTER VACCINES (1 of 2) [facility] Start: 10-21-1985 ZOSTER VACCINES (1 of 2) ZOSTER VACCINES (1 of 2) [facility] Start: 10-21-1938 History and physical examination, annual for health maintenance Wellness Visit [facility] Start: 1935 Fall risk assessment Falls Risk Assessment [facility] Start: 1935 End: 1935 DEXA SCAN DEXA SCAN [facility] Work Phone: Start: 1935 End: 1935 Screening for osteoporosis DEXA SCAN [facility] Start: 1935 End: 1935 TETANUS EVERY 10 YR TETANUS EVERY 10 YR [facility] Work Phone: Start: 1935 End: 1935 Tetanus vaccination [facility] Work Phone: End: 03-17-2021 Carotid artery doppler assessment Ultrasound doppler carotid Vascular Ultrasound Routine Bruit of left carotid artery 1 Occurrences starting 01/15/2020 until 03/17/2021 [facility] Comment on above: 1 Occurrences starting 01/15/2020 until 03/17/2021 End: 01-12-2017 Carotid Duplex Carotid Duplex Routine Bruit Once for 1 Occurrences starting 01/12/2017 until 01/12/2017 [facility] Work Phone: Carotid Duplex Carotid Duplex R outine Bruit 01/12/2017 4:01 PM EDT [facility] Work Phone: End: 03-10-2018 Carotid Duplex Carotid Duplex Routine Bruit 1 Occurrences starting 01/08/2017 until 03/10/2018 [facility] Work Phone: End: 06-26-2018 Cholesterol Lipid Panel Routine Pure hypercholesterolemia 1 Occurrences starting 06/26/2017 until 06/26/2018 [facility] End: 06-26-2018 Complete blood count (hemogram) panel - Blood by Automated count CBC Routine Essential hypertension 1 Occurrences starting 06/26/2017 until 06/26/2018 [facility] End: 06-27-2019 Complete blood count with white cell differential, manual CBC and Differential Routine Benign essential hypertension 1 Occurrences starting 11/26/2018 until 06/27/2019 [facility] Comment on above: 1 Occurrences starting 11/26/2018 until 06/27/2019 End: 06-16-2020 Complete blood count with white cell differential, manual CBC and Differential Lab Routine Benign essential hypertension 1 Occurrences starting 06/16/2019 until 06/16/2020 [facility] Comment on above: 1 Occurrences starting 06/16/2019 until 06/16/2020 End: 07-28-2021 Complete blood count with white cell differential, manual CBC and Differential Lab Routine Benign essential hypertension 1 Occurrences starting 07/28/2020 until 07/28/2021 [facility] Comment on above: 1 Occurrences starting 07/28/2020 until 07/28/2021 End: 06-27-2019 Comprehensive metabolic 2000 panel Comprehensive Metabolic Panel Routine Benign essential hypertension 1 Occurrences starting 11/26/2018 until 06/27/2019 [facility] Comment on above: 1 Occurrences starting 11/26/2018 until 06/27/2019 End: 06-16-2020 Comprehensive metabolic 2000 panel Comprehensive Metabolic Panel Lab Routine Benign essential hypertension 1 Occurrences starting 06/16/2019 until 06/16/2020 [facility] Comment on above: 1 Occurrences starting 06/16/2019 until 06/16/2020 End: 07-28-2021 Comprehensive metabolic 2000 panel Comprehensive Metabolic Panel Lab Routine Benign essential hypertension 1 Occurrences starting 07/28/2020 until 07/28/2021 [facility] Comment on above: 1 Occurrences starting 07/28/2020 until 07/28/2021 End: 06-26-2018 Comprehensive metabolic panel [AGGREGATE] Comprehensive Metabolic Panel Routine Essential hypertension 1 Occurrences starting 06/26/2017 until 06/26/2018 [facility] End: 01-16-2019 Echocardiogram complete Echocardiogram complete Routine Dyspnea on exertion 1 Occurrences starting 01/15/2018 until 01/16/2019 [facility] Comment on above: 1 Occurrences starting 01/15/2018 until 01/16/2019 End: 06-27-2019 Lipid 1996 panel Lipid Panel Routine Mixed hyperlipidemia 1 Occurrences starting 11/26/2018 until 06/27/2019 [facility] Comment on above: 1 Occurrences starting 11/26/2018 until 06/27/2019 End: 06-16-2020 Lipid 1996 panel Lipid Panel Lab Routine Mixed hyperlipidemia 1 Occurrences starting 06/16/2019 until 06/16/2020 [facility] Comment on above: 1 Occurrences starting 06/16/2019 until 06/16/2020 End: 07-28-2021 Lipid 1996 panel Lipid Panel Lab Routine Benign essential hypertension 1 Occurrences starting 07/28/2020 until 07/28/2021 [facility] Comment on above: 1 Occurrences starting 07/28/2020 until 07/28/2021 End: 06-26-2018 Microalbumin, Urine, Random Microalbumin, Urine, Random Routine Essential hypertension 1 Occurrences starting 06/26/2017 until 06/26/2018 [facility] End: 06-27-2019 Thyrotropin Qn TSH with Reflex Free T4 Routine Benign essential hypertension 1 Occurrences starting 11/26/2018 until 06/27/2019 [facility] Comment on above: 1 Occurrences starting 11/26/2018 until 06/27/2019 End: 06-26-2018 TSH TSH Routine Hypothyroidism (acquired) 1 Occurrences starting 06/26/2017 until 06/26/2018 [facility] End: 06-16-2020 TSH Qn TSH with Reflex Free T4 Lab Routine Subclinical hypothyroidism 1 Occurrences starting 06/16/2019 until 06/16/2020 [facility] Comment on above: 1 Occurrences starting 06/16/2019 until 06/16/2020 End: 07-28-2021 TSH Qn TSH with Reflex Free T4 Lab Routine Benign essential hypertension 1 Occurrences starting 07/28/2020 until 07/28/2021 [facility] Comment on above: 1 Occurrences starting 07/28/2020 until 07/28/2021 Immunizations Immunization Date Immunization Notes Care Provider Derrick gomez 06-14-2020 Moderna SARS-CoV-2 Vaccination Brand on [facility] 05-17-2020 Moderna SARS-CoV-2 Vaccination Brand on [facility] 01-28-2020 Seasonal, quadrivale nt, recombinant, injectable influenza vaccine, preservative free [facility] 12-08-2019 diphtheria, tetanus toxoids and acellular pertussis vaccine, unspecified formulation [facility] 12-08-2019 tetanus toxoid, redu cielo diphtheria toxoid, and acellular pertussis vaccine, adsorbed David [facility] 12-27-2017 influenza, high dose seasonal, preservative-free; Translations: [INFLUENZA IIV3 HIGH DOSE 65 AND OLDER] [facility] influenza virus vacc ine, unspecified formulation Ceasar [facility] 03-02-2015 influenza, injectabl e, quadrivalent, preservative free [facility] 03-02-2015 pneumococcal conjuga te vaccine, 13 valent [facility] 03-02-2015 pneumococcal polysac charide vaccine, 23 valent [facility] influenza virus vacc ine, unspecified formulation [facility] Payers Date Payer Category Payer Self-pay 2015 Unknown [id number] 2015 Unknown [facility] [id number] 2015-Present [id number] 2015 Unknown [facility] [id number] 2015-Present [phone] [address] [place] [address] [id number] 2000 Medicare [id number] 2000 Medicare MEDICARE MEDICAR E PART A & B [id number] 2000-Present [place] [id number] 2000 Medicare MEDICARE MEDICAR E PART A & B [id number] 2000-Present [phone] S [id number] [place] [address] [id number] 2000 Unknown [id number] 2000 Medicare [id number] 1935 Unknown [id number] 1935 Unknown [id number] 1935 Unknown [id number] 1935 Unknown [id number] 1935 Unknown [id number] Medicare xxxxxxxxxx [id number] Unknown [id number] Unknown [id number] Unknown [id number] Unknown [id number] Unknown [id number] Unknown [id number] Social History Date Type Detail Facility Start: 12-13-2016 End: 06-26-2017 Tobacco smoking status MNIS Never smoker [facility] Start: 1935 Sex Assigned At Not on file [facility] [employer] Work Phone: Start: 01-06-2016 Alcohol Comment very seldom [facility] Start: 06-26-2017 End: 01-13-2019 Alcohol intake Current drinker of alcohol (finding) [facility] Start: 12-18-2018 End: 07-28-2020 History SDOH Social Connections Phone 3 [facility] Start: 12-18-2018 End: 12-08-2019 History SDOH Food Worry 1 [facility] Start: 12-13-2016 End: 01-15-2020 Tobacco use and exposure Never used [facility] Start: 01-15-2020 End: 07-28-2020 Alcohol intake Ex-drinker (finding) [facility] Start: 12-08-2019 History SDOH Physica l Activity DPW 0 [facility] Start: 12-08-2019 History SDOH Education 14 [facility] Start: 12-08-2019 History SDOH Financial 5 [facility] Start: 12-08-2019 End: 07-28-2020 History SDOH IPV Fear 2 [facility] Start: 06-28-2020 End: 07-28-2020 Exposure to SARS-CoV-2 (event) Not sure [facility] Start: 06-26-2017 End: 07-28-2020 Alcohol intake [facility] Clinical Notes 11-07-2017 to 03-04-2025 Telephone Encounter - Shante Hargrove LPN - 09/21/2020 4:05 PM EDTTelephone Encounter - Theresa Berg MA - 11/09/2017 9:59 AM EDT Note Date & Type Note Facility 03-04-2025 Note HNO ID: [id number] Author: NORMA LEES RN Service: Care Management Author Type: Registered Nurse Type: Care Mgt Progress Note Filed: 03/04/2025 13:48 Note Text: CARE MANAGEMENT PROGRESS NOTE SERVICE DATE: 03/04/2025 SERVICE TIME: 1:07 PM LOS: 2 days Needs Prior to Discharge: To Be Determined EMR reviewed. Acute on chronic CHF. On IV Lasix. On RA. Returning to [facility]. OT rec HHC. PT pending. Updated [facility] referral, awaiting answer if they have their own onsite therapy or a [facility] agency they prefer to use. 1:47 PM [facility] advised they will use their in house therapy team to provide the home therapy patient needs upon return. SIGNATURE: Norma Lees RN PATIENT NAME: Na Good DATE: March 04, 2025 TIME: 1:07 PM [facility] 03-04-2025 Note HNO ID: [id number] Author: BISMARK SALES MD Service: General Internal [...] (Temporal) Resp 18 Ht 157.5 cm (5' 2) Wt 55 kg (121 lb 4.1 oz) [...] views is recommended. Echocardiography Report: Transthoracic Echo [facility] Date of service: 12/26/2024 CONCLUSIONS: - Exam [...] subject to e (more content not included)... [facility] 03-03-2025 Note HNO ID: [id number] Author: NORMA LEES RN Service: Care Management [...] by: Per Department Practice Potential Transition Plans Assisted Facility/Intermediate Care Facility Advance Directives Current Advance Directive: Health Care Power of Brush Painter In Chart: Yes Up To Date and Valid: Yes Current Living Arrangements and Support Lives with: Type of Residence: Assisted Living Facility Does the patient have to climb stairs at home?: No Care Facility Name: [facility] Support: Children How do you manage to accomplish the following: Independent: Ambulation, Dress, Going to the bathroom Needs Assistance: Bathe/Shower Dependent: Meals/Meal Prep, Medication Management, Transportation to appointments/community Current Services/Equipment Current Post-Acute Service(s): DME Current DME Type: Walker (Walker inside, Walking poles outside.) Discharge Planning Patient Goal(s): Be able to go home, General wellness Industry of Choice Explained: Industry of Choice Given: Yes Level of Care Discussed: Other: See Comment (Return to [facility].) Are you interested in bedside delivery of your medications? No Discharge Planning Participant(s): Children Patient/Family Comments: Caregiver Assessment: Caregiver is ready, willing and able to meet the patient's needs as recommended by the inter-professional team: Yes Name of Caregiver: [facility] Transport at Discharge: Transportation Arrangements: To Be Determined Needs Prior to Discharge: Needs Prior to Discharge: To Be Determined Post-Acute Discharge Plan: CM spoke with daughter/AIRAM Shi to complete assessment, introduced self and role. Pt is 89 y/o, admit Dx Acute on chronic CHF. Patient resides at [facility]. Needs assist with bathing, nurses administer all meds. Daughter reports patient uses a walker inside and walking poles when outside. Presented to ED with worsening dyspnea on exertion. Cardiology consulted. On IV Lasix. On RA. Pt is AANDO X 3. Anticipate return to [facility]. Discharge transport TBD Family vs [facility] vs Medical transport. Daughter feels Discharge instructions on Lasix administration need to be very specific for the [facility] nurses at d/c. CM instructed patient that CM team will remain available for any dc needs. SIGNATURE: Norma Lees RN PATIENT NAME: Na Good DATE: March 03, 2025 TIME: 11:56 AM [facility] 03-03-2025 Note HNO ID: [id number] Author: BISMARK SALES MD Service: General Internal [...] (Temporal) Resp 20 Ht 157.5 cm (5' 2) Wt 54.5 kg (120 lb 2.4 oz) [...] views is recommended. Echocardiography Report: Transthoracic Echo [facility] Date of service: 12/26/2024 CONCLUSIONS: - Exam [...] by contextual deri (more content not included)... [facility] 03-02-2025 Note SARS-COV-2 (AGENT OF COVID-19) RNA: Not detected INFLUENZA A RNA: Not detected INFLUENZA B RNA: Not detected RESPIRATORY SYNCYTIAL VIRUS (RSV) RNA: Not detected [facility] Comment on above: Performed By: #### 2 4321-2 #### [facility] CLIA [id number] [address] [place] [address] [place] 02-25-2025 Note HNO ID: [id number] Author: LIDIA ARMENTA APRN.VERONICA Service: ? Author Type: Nurse Practitioner Type: Progress Notes Filed: 02/25/2025 15:55 Note Text: [facility] [place] Domenic Rayo Department of Cardiovascular Medicine SECTION [...] a follow up visit. Recent admission to [facility] for acute diastolic HF Seen by and [...] a long-standing tremor, which she describes as shaking. She is unsure if she has been taking extra doses of her diuretic. She tries to avoid excessive salt intake. She was recently hospitalized twice, in December and January, for pulmonary edema and a UTI. She denies any current symptoms of a UTI, such as dysuria or increased urinary frequency. She resides in an assisted living facility, [facility], and is accompanied by her nurse aide. She is under the care of a primary physician and a nurse practitioner at the facility. She is currently taking a thyroid medication. Recent lab results show normal renal function, potassium levels, and thyroid function. There were no tests performed for review. PHYSICAL EXAMINATION: Vitals: BP 118/78 (BP Position: Sitting) Pulse 95 Ht 157.5 cm (5' 2) Wt 54.9 kg (121 lb 0.5 oz) [...] prior to the follow up. Lidia Armenta APRN.FIBERGLASS FINISHER Cardiology Nurse Practitioner Section of Regional Cardiology [place] Dept of Cardiovascular Medicine [facility] [place] [address] [place] [address] Office Office February 25, 2025 (more content not included)... [facility] 02-04-2025 Note HNO ID: [id number] Author: JOVANI COCHRAN APRN.FIBERGLASS FINISHER Service: ? Author Type: Nurse Practitioner Type: Progress Notes Filed: 02/04/2025 13:00 Note Text: [facility] [place] [facility] OUTPATIENT VISIT DATE [...] Impaired Vision, Glass (more content not included)... [facility] 01-29-2025 Note HNO ID: [id number] Author: NAHEED GREENBERG RN Service: Care Management Author Type: Registered Nurse Type: Care Mgt Progress Note Filed: 01/29/2025 14:44 Note Text: CARE MANAGEMENT DISCHARGE NOTE SERVICE DATE: January 29, 2025 SERVICE TIME: 2:41 PM Discharge order written for today. [facility]: [facility] - - Updated in [facility] and by Phone with Nurse Persaud on discharge planning. Nurse Persaud updated on discharge today and confirms the facility will set home PT services for patient. MMT transport scheduled for today at 3:30 PM - Trip Number [id number] Transport envelope on chart LAKESHIA GALLEGO discussed discharge with Nurse Yaritza Steven RN. Admission Date: 01/27/2025 LOS: 2 days Discharge Arrangement Discharge Arrangement: [facility]isted [facility] Arrangements Transportation Arrangements: Ambulance Transportation Agency and Phone #:: [facility] [phone] Date of Trip: 01/29/25 (Trip Number [id number]) Time of Trip: 1530 Type of Service: BLS Non-emergency Is Patient Medicaid Pending?: No Was transportation financial coverage discussed with family?: Family (Son: Yandel Good - [phone]) Integrated Circuit Design Engineer Location: [place] Destination: [facility]: [facility] - Financial Care Management Responsibility: None Handoff Communication: Handoff to: Primary Care Physician Primary Care Physician Name/Phone: PCP: Alexey Espino DO - Additional Information: Discharge Information Row Name ED to Hosp-Admission (Current) from 01/27/2025 in [facility] Medical Follow-Up Appointment Provider Name PCP: Alexey Espino DO - Other Follow-Up Type [facility]: [facility] - SIGNATURE: Naheed Greenberg RN PATIENT NAME: Na Good DATE: January 29, 2025 TIME: 2:41 PM [facility] 01-29-2025 Note HNO ID: [id number] Author: NAHEED GREENBERG RN Service: Care Management Author Type: Registered Nurse Type: Care Mgt Progress Note Filed: 01/29/2025 14:36 Note Text: CARE MANAGEMENT PROGRESS NOTE SERVICE DATE: 01/29/2025 SERVICE TIME: 2:13 PM LOS: 2 days RN CM spoke with son: Yandel Good [phone] to discuss discharge planning. Anticipate discharge today. Yandel confirms plan if for return to [facility]: [facility]. RN CM informed Yandel of therapy recommendations: [...] Copy Given: Yes Copy given to:: Patient Sheet Rock Applier Sheet Rock Applier Name/Relationship: Son: Yandel Good - Method: By Phone MMT Transport scheduled for today at 3:30 PM - Trip Number [id number] Transport envelope on chart with Nurse to Nurse Report Number RN CM updated Nurse Yaritza Steven RN. RN CM called [facility] spoke with Nurse: Cori to discuss need for Home PT services. She confirms the will arrange PT with the facility therapist. She has been informed that patient will be discharge and returning to them today. Facility updated in [facility] on Discharge Plan and Medical Transport Time. SIGNATURE: Naheed Greenberg RN PATIENT NAME: Na Good DATE: January 29, 2025 TIME: 2:13 PM [facility] 01-29-2025 Note HNO ID: [id number] Author: LIDIA ARMENTA APRN.CNP Service: Cardiovascular Medicine Author Type: Nurse Practitioner Type: Progress Notes Filed: 01/29/2025 10:50 Note Text: Heart [facility] [place] Domenic Rayo Department of Cardiovascular Medicine SECTION OF REGIONAL CARDIOLOGY/[facility] Progress Note Elements of this note, including but not limited to HPI, ROS, Physical Exam, Assessment and Plan were copied and pasted from previous visit notes completed within our department. Updates have been made where appropriate/noted and reflect current exam and medical decision making from date of this visit. Name: Na Good : 1935 Primary Physician: Aleexy Vinson Sr, DO Consulting Physician: Julio Cesar Alvarez MD Primary Professor Of Political Science: Mandeep - last visit 2019 SERVICE DATE: [...] PO daily and lasix 20 mg daily CHILD AND ADOLESCENT PSYCHOLOGIST - Enalapril increased to 5 mg BID [...] Dr. Martinez and nursing staff. Lidia Armenta APRN.FIBERGLASS FINISHER 01/29/2025 9:00 AM PAST MEDICAL HISTORY PAST [...] 10/05/2003 45 Last ECHO Result Conclusion ECHO [facility] (more content not included)... [facility] 01-28-2025 Note HNO ID: [id number] Author: NAHEED GREENBERG RN Service: Care Management Author Type: Registered Nurse Type: Care Mgt Initial Assessment Filed: 01/28/2025 14:43 Note Text: CARE MANAGEMENT: ASSESSMENT AND DISCHARGE PLAN SERVICE DATE: January 28, 2025 SERVICE TIME: 8:38 AM forestry crew chief spoke with patient to complete Care Management Assessment. RN CM left voice message for Daughter/HCPOA: Yuridia Whyte [phone] to call CM to discuss discharge planning. [...] Current Advance Directive: Health Care Power of Brush Painter In Chart: Yes Current Living Arrangements and Support Type of Residence: Assisted Living Facility Does the patient have to climb stairs at home?: No Care Facility Name: [facility]: [facility] - How do you manage to accomplish the following: Needs Assistance: Ambulation, Bathe/Shower, Dress, Going to the bathroom Dependent: Meals/Meal Prep, Medication Management, Transportation to appointments/community Current Services/Equipment Current Post-Acute Service(s): DME Current DME Type: (Walking Sticks and Wheeled Walker) Current Post-Acute Service(s) Provider: None Discharge Planning Patient Goal(s): Be able to go home Industry of Choice Explained: Industry of Choice Given: No (Discharge Needs: To be Determined) Discharge Planning Participant(s): Patient Transport at Discharge: Transportation Arrangements: To Be Determined Needs Prior to Discharge: Needs Prior to Discharge: To Be Determined, OT/PT Evaluation, Discharge Transportation Post-Acute Discharge Plan: 01/28/25 2:43 PM RN CM called [facility] spoke with Nurse Adriana in Assisted Living. Adriana confirms patient is a resident in [facility]. She confirmed PCP: Alexey Espino DO - and Pharmacy for Discharge: [facility] in [facility] - Adriana informs CM that patient is not active with HHC or Therapy at the facility prior to admission. Discharge Transportation: To be Determined. CM Dept to Follow. SIGNATURE: Naheed Greenberg RN PATIENT NAME: Na Good DATE: January 28, 2025 TIME: 2:38 PM [facility] 01-28-2025 Note HNO ID: [id number] Author: JULIO CESAR ALVAREZ MD Service: Hospital Medicine Author Type: Physician Type: Progress Notes Filed: 01/28/2025 12:39 Note Text: DEPARTMENT OF HOSPITAL MEDICINE PROGRESS NOTE SERVICE DATE: 01/28/2025 SERVICE TIME: 12:35 PM Hospital Medicine/Primary Attending: Julio Cesar Alvarez MD NIGHT AND WEEKEND COVERAGE: [place] C[employer]: Days: [phone], please page attending physician. Nights: [phone], please page [place] Hospitalist Night coverage pager [phone]. Subjective INTERVAL HPI: No acute events overnight. [...] HFrEF (heart failure with reduced ejection fraction) ([facility]) (POA: Status not on file) Difficulty sleeping [...] AND Antiplatelet Me (more content not included)... [facility] 01-27-2025 Note SARS-COV-2 (AGENT OF COVID-19) RNA: Not detected INFLUENZA A RNA: Not detected INFLUENZA B RNA: Not detected RESPIRATORY SYNCYTIAL VIRUS (RSV) RNA: Not detected [facility] Comment on above: Performed By: #### 2 4321-2 #### [facility] CLIA [id number] [address] [place] [address] [place] 12-27-2024 Note HNO ID: [id number] Author: JAON CARRIZALES RN Service: ? Author Type: Registered Nurse Type: Nursing Progress Note Filed: 12/27/2024 12:22 Note Text: Report was given to cori at [facility] 12-27-2024 Note HNO ID: [id number] Author: ANDRE SAN LSW Service: Care Management Author Type: Blood Bank Specialist Type: Care Mgt Progress Note Filed: 12/27/2024 11:32 Note Text: CARE MANAGEMENT DISCHARGE NOTE SERVICE DATE: December 27, 2024 SERVICE TIME: 11:28 AM Admission Date: 12/24/2024 LOS: 3 days Discharge Arrangement Services Arranged Provider Name: [facility] Caregiver Assessment Transportation Arrangements Transportation Arrangements: Car Date of Trip: 12/27/24 Time of Trip: 1300 Is Patient Medicaid Pending?: No Was transportation financial coverage discussed with family?: Patient, Family Integrated Circuit Design Engineer Location: [place] Destination: [facility] Financial Care Management Responsibility: None Handoff Communication: Handoff to: Other Caregiver Other Caregiver Name/Phone: Daughter confirmed pt has homecare services through [facility]. F2f included in d/c envelope Additional Information: CM notified regarding d/c today, return to [facility]. Family confirmed pt's son, Yandel Good, will be transporting pt back to the facility. Envelope with d/c information updated. CM will follow, as needed. SIGNATURE: DALILA Moy, TED PATIENT NAME: Na Good DATE: December 27, 2024 TIME: 11:28 AM [facility] 12-27-2024 Note HNO ID: [id number] Author: LIDIA ARMENTA APRN.CNP Service: Cardiovascular Medicine Author Type: Nurse Practitioner Type: Progress Notes Filed: 12/27/2024 09:43 Note Text: Heart [facility] [place] Domenic Rayo Department of Cardiovascular Medicine SECTION OF REGIONAL CARDIOLOGY/[facility] Progress Note Elements of this note, [...] MD Consulting Physician: Liam Smith MD Primary Professor Of Political Science: SERVICE DATE: December 27, 2024 Interval History: Patient seen and examined sitting up in bed - son at bedside Patient with no cardiac complaints this AM Patient [place] Overall improved since admission Discharge was held [...] mg daily and Toprol 25 mg daily CHILD AND ADOLESCENT PSYCHOLOGIST >> home meds continued on admission - [...] Dr. Matthews and nursing staff. Lidia Armenta, ORACLE MANUFACTURING CONSULTANT.FIBERGLASS FINISHER 12/27/2024 7:36 AM PAST MEDICAL HISTORY PAST [...] HEENT: EOM's intact (more content not included)... [facility] 12-26-2024 Note HNO ID: [id number] Author: LIAM SMITH MD Service: General Internal [...] -- 12/24/24 1830 activity - mobilize [place] ([place]) VTE Prophylaxis: VTE prophylaxis appropriate SIGNATURE: Liam Smith MD PATIENT NAME: Na Good DATE: December 26, 2024 TIME: 1:54 PM [facility] 12-25-2024 Note HNO ID: [id number] Author: CATHLEEN THOMAS LSW Service: Care Management Author Type: Blood Bank Specialist Type: Care Mgt Initial Assessment Filed: 12/25/2024 [...] Practice Potential Transition Plans Other: See Comment ([facility]) Advance Directives Current Advance Directive: Health Care Power of Brush Painter In Chart: No Television Engineer Attempted to Assist with AD Completion: Yes Action: Other: See Comment (Asked RN at [facility] to fax to dept.) Current Living Arrangements and Support Lives with: Alone Type of Residence: Assisted Living Facility Does the patient have to climb stairs at home?: No Care Facility Name: [facility] Support: Children, Family members How do you manage to accomplish the following: Independent: Dress, Going to the bathroom Needs Assistance: Ambulation, Bathe/Shower, Meals/Meal Prep, Medication Management Dependent: Transportation to appointments/community Current Services/Equipment Current Post-Acute Service(s): DME Current DME Type: Other: See Comment (walking sticks) Discharge Planning Patient Goal(s): General wellness Industry of Choice Explained: Industry of Choice Given: Yes Level of Care Discussed: Other: See Comment ([facility]) Are you interested in bedside delivery of your medications? No Discharge Planning Participant(s): Patient, Other person(s) Name/Relationship: RN from [facility] Patient/Family Comments: Caregiver Assessment: Caregiver is ready, willing and able to meet the patient's needs as recommended by the inter-professional team: Yes Name of Caregiver: [facility] Transport at Discharge: Transportation Arrangements: Ambulance Transportation Agency and Phone #:: [facility] [phone] Needs Prior to Discharge: Needs Prior to Discharge: To Be Determined, Discharge Transportation, Other: See Comment, OT/PT Evaluation (medical clearance) Post-Acute Discharge Plan: EMR reviewed. CMSW called and spoke to RN at [facility]; introduced self/role. RN states that she will fax dept POA paperwork. Patient is an 89 year old female who presents with acute on chronic congestive heart failure with PMH of chf (per chart review -July 2024 EF 28%), LV thrombus (eliquis), HTN, tremors, macular degeneration, CAD, LUMBEE, and insomnia. RN states that they patient uses [facility] for medications but is unable to confirm which location. Patient uses walking sticks for ambulation and is not active with any skilled services CHILD AND ADOLESCENT PSYCHOLOGIST. Patient is from with [facility] and needs assistance with ADLs. MMT to transport at discharge. Patient is safe and has her needs met. CM assigned will continue to follow for discharge needs. Updated 10:22 am: CMSW met with the patient and patient's daughter, Janelle, at bedside to confirm discharge plan of patient returning to [facility] at discharge; her son will transport her. SIGNATURE: DALILA Salinas PATIENT NAME: Na Good DATE: December 25, 2024 TIME: 9:19 AM [facility] 09-21-2020 Miscellaneous Notes Na called for a refill Pending Prescriptions: Disp Refills lisinopriL (PRINIVIL,ZESTRIL) 20 MG glyydz43 tab*3 Sig: Take 1 (one) tablet (20 [...] 07/28/2020 Upcoming appt 01/31/2021 Please send to [facility] - [address] [address] [facility] [place] [address] [place] [id number] Please advise documented in this encounter [facility] 11-09-2017 Telephone encounter Note Second VM left for pt. [facility] 11-09-2017 Miscellaneous Notes Second VM left for pt. Left pt a VM asking her to give our office a call back in regard to a medication refill request that we received. Medication requested; lisinopril 20 mg tab. documented in this encounter [facility] 11-07-2017 Telephone encounter Note Left pt a VM asking her to give our office a call back in regard to a medication refill request that we received. Medication requested; lisinopril 20 mg tab. [facility] Evaluation note Diagnosis Benign essential hypertension Essential hypertension, benign Chronic combined systolic and diastolic congestive heart failure (HCC) Insomnia, unspecified type documented in this encounter [facility] Assessments Diagnosis Essential hypertension - Ana [...] another for noisy times like a dinner democrat in a restaurant. You can change hearing [...] also different styles of hearing aids. A dxywgr-sdp-boi (BTE) hearing aid connects to a plastic [...] be replaced as the child grows. An ks-qgg-yrfhl (ITC) hearing aid fits into the ear [...] can go to your doctor or an silver cleaner. He or she will do a hearing test and help you decide which type and style of hearing aid may be best for you. But, if your hearing loss is mild to moderate, you might consider buying a good quality vwex-gsq-zrxufwr hearing aid, which may be called a [...] Log into your personal health record on https://Openet.LevelUp and enter K597 in the Education box to learn more about Learning About Hearing Aids. Current as of: February 10, 2018 Content Version: 12.1 [employer] Care instructions adapted under license by your healthcare professional. If you have questions about a medical condition or this instruction, always ask your healthcare professional. [employer] disclaims any warranty or liability for your use of this information. documented in this encounter* Patient Instructions* Danii Chen RN - 01/13/2019 10:29 AM EDT .How to contact your Care Team: Provider: Rubin Chirinos MD [facility] Nurse: Danii Chen RN In case of an emergency please call 911. REFILLS: When in need for refills please call your care team or the office at [phone]. Please include medication name, pharmacy name, and [...] your Care Team: Provider: Rubin Chirinos MD [facility] Nurse: Danii Chen RN [...] FoundDocuments on File Type Date Recorded Patient Sheet Rock Applier Expl anation Advance Directives and Living Will Documents on File Type Date Recorded Patient Sheet Rock Applier Expl anation Advance Directives and Living Will Documents on File Type Date Recorded Patient Sheet Rock Applier Expl anation Advance Directives and Livin g Will 02/03/2020 12:00 AM Documents on File Type Date Recorded Patient Sheet Rock Applier Expl anation Advance Directives and Livin g [...] req to see Dr EGAN New PT HPI kind referral for my evaluation [...] Marcelo AuD - 12/04/2018 11:34 AM EDT [facility] [address] [facility] [place] [address] Name: Na Good : 1935 Date: 12/04/18 [...] for hearing aid use at Dr. Arce's discretion.[place] for hearing aid fitting pending otologic clearance at patient's discretion. Use of good communication strategies such as kmlp-wi-uepn communication and reduction of background noise when possible. The above was explained to the patient and or their guardian and they expressed understanding. Electronically signed by: Clari Borden, [facility] 12/04/18 11:34 AM documented in this encounter* [...] and external ear canal shape. CPT code 66932.50. With the patient in a slightly reclained [...] review the comprehensive hearing test results in [facility] and provided an interpretation to the patient. Indeed it confirmed ZENA symmetric down slopping increase of the CHILD AND ADOLESCENT PSYCHOLOGIST thresholds, normal Type A tympanograms and decreased speech discrimination. 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 Information on the devices and referral to the silver cleaner arranged. 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 I will see again in 1 year or sooner should she [...] Addressed: Problem Chf (Congestive Heart Failure) ([facility]) Sees Dr. Chirinos yearly. Mixed [...] Directive (Living Will and/or Durable Power of Brush Painter for Health Care)?: Yes What is your [...] Word Registration Version Used: Version 1: Banana, [place], Chair Step 2: Clock Drawing Step 2 [...] week Gets together: Twice a week Attends mandaen service: Not on file Active member of [...] Equipment Co[employer] (DME) [facility] - [place] [id number] [facility] [address] [facility] [address] [address] - [place], [place] - [address] [facility] [address] [place] [address] [facility] [address] Objective Blood pressure 133/70, pulse 98, temperature [...] Presbycusis, unspecified laterality Oscar Mendes MD [address] [place] [id number] Ceasar Arce MD [address] [address] Status Reason Specialty Diagnoses / Procedures Referred By Contact Referred To Contact Pending Review Cardiology Diagnoses Bruit of left carotid artery Procedures Ultrasound doppler carotid Rubin Chirinos MD [address] [place] [address] Additional Source Comments Assessment & Plan Note [...] decompensated heart failure in the clinic today. [employer] functional class I-II. She is [...] section and content) DATE CREATED AUTHOR 04/01/2018 [facility] DATE CREATED AUTHOR AUTHOR'S ORGANIZ ATION 02/04/2020 [facility] DATE CREATED AUTHOR AUTHOR'S ORGANIZ ATION 01/15/2021 [facility] DATE CREATED AUTHOR AUTHOR'S ORGANIZ ATION 03/03/2025 [facility] DATE CREATED AUTHOR AUTHOR'S ORGANIZ ATION 03/05/2025 [facility] DATE CREATED AUTHOR AUTHOR'S ORGANIZ ATION 03/05/2025 [facility] Reason for Visit (unrecogniz ed section and content) Reason Comments Congestive Heart Failure Hypertension Hyperlipidemia Reason Comments Hearing Loss Pt req to see Dr EGAN New PT Status Reason Specialty Diagnoses / Procedures Referred By Contact Referred To Contact Closed Otolaryngology Diagnoses Presbycusis, unspecified laterality Oscar Mendes MD [address] [place] [address] Ceasar Arec MD [address] [place] [facility] [address] [place] [address] Reason Comments Medicare Wellness Visit VM to schedule M [place] Status Reason Specialty Diagnoses / Procedures Referred By Contact Referred To Contact Closed Specialty Services Required/Patient' s [facility] Audiology Diagnoses Sudden hearing loss, unspecified laterality Ceasar Arce MD [address] [facility] [address] [place] [address] Kriss Marcelo AuD Reason Comments Hearing Loss left ear Reason Comments Follow-up Denies Chest pain,pr essure,SOB,Swelling Reason Comments Hypertension Hyperlipidemia Hypothyroidism Reason Comments Follow-up yearly Status Reason Specialty Diagnoses / Procedures Referred By Contact Referred To Contact Pending Review Cardiology Diagnoses Bruit of left carotid artery Procedures Ultrasound doppler carotid Rubin Chirinos MD [address] [facility] [place] [place] [address] Reason Onset Date Comments Medicare Wellness Visit Fall Risk Screening 12/08/2019 Reason Comments Hypertension Hyperlipidemia Congestive Heart Failure Reason Onset Date Comments Medication Refill 09/21/2020 Reason Comments Medication Refill Care Teams (unrecognized sec tion and content) Tour Guide Relationship Specialty Start Date End Date Anika Hernandez VERONICA PCP - General Nurse Practitioner 06/15/17 11/28/17 David Ludwig MD PCP - General Family Medicine 11/29/17 David Ludwig MD [facility] [place] [address] PCP - [facility] Attributed Provider 07/22/20 04/22/21 FOR RECORDS PERTAINING [...] BE BASED ON THE PRIMARY CLINICAL RECORDS. [employer] provides no warranty or guarantee of the accuracy or completeness of information in this document.
[2025-04-04 12:11] LABS: Color, Urine Yellow (Yellow); Glucose, Dipstick 1000 mg/dl (Normal); Ketone-Dipstick Negative (Negative); Leukocyte Esterase-Dipstick 25 /ul (Negative); Nitrite-Dipstick Negative (Negative); Occult Blood-Urine Negative /ul (Negative); Protein-Dipstick 15 mg/dl (Negative); Specific Gravity, Urine 1.010 (1.002-1.030); Urine Bilirubin Dipstick Negative (Negative)
[2025-04-04 12:38] LABS: Anion Gap 10 (5-15); BUN 30 mg/dL (4-19); BUN/Creat Ratio 30.2 RATIO (10-20); Calcium,Total 9.3 mg/dL (7.6-11.0); Carbon Dioxide 30.9 mmol/L (21.0-32.0); Chloride 103 mmol/L (98-108); Glucose 74 mg/dL (70-99); Potassium 4.5 mmol/L (3.3-5.1)
[2025-04-04 12:42] LABS: Squamous Epithelial Cells - UA 0-5 SEEN /hpf (5-10)
== END ==
LOC: OLS.ACH2 11:15
PROVIDERS: Visit Provider Internal Medicine
DX: I50.22 Chronic systolic (congestive) heart failure (principal)
CPT/HCPCS: 80048; 81001; 87086; 87088

== ENCOUNTER → 2025-04-06 05:00 | Outpatient (REF) | payer MEDICARE, OTHER, SELFPAY ==
--- OUTSIDE RECORDS SUMMARY | 2025-04-06 04:27 | XMS RPT_ITS | CCD ---
Author Organization [facility] Care Team Providers Care Research And Development Specialist Name Role Phone Anika Hernandez Unavailable Unavailable [...] le CRODAVID HARKINS Attending Unavailab le DAVID ULDWIG Primary Care Unavailab le Hernandez Anika MARTIN [...] Corticosteroids (1 source) Cortisone Drug Allergy 6 [facility] (20 sources) cortisone; Translations: [CORTISONE] Propensity to adverse reactions to drug 2 [facility] Work Phone: Medications Current Medications Medication [...] (two) times a day. Active Flu Vaccine [id number](65yr Up)(Pf)180 McG/0.5 Ml Intramuscular Syringe (1 source) Start: 12-27-2017 End: 12-27-2017 flu vaccine tv 2017, 65yr up,,PF, (FLUZONE HIGH DOSE) syringe Indications: Need for influenza vaccination Sign this order in conjunction with the immunization order to satisfy [place] Board [employer] Pharmacy Positive ID requirements for [...] Anion gap [Moles/Vol] 13 mmol/L Normal 8-15 [facility] Comment on above: Order Comment: Speci men Type: BLOOD SPECIMENOrdering Facility: [facility] [place] Address: [address] [place] [address] [place] [address] Performed By: #### 1 9123-9, 60157-4, 23504-0 ####BAIRD LABORATORYCLIA [id number] [place] [address] [place] Calcium [Mass/Vol] 9.1 mg/dL Normal 8.5-10.2 [facility] Comment on above: Order Comment: Speci men Type: BLOOD SPECIMENOrdering Facility: [facility] [place] Address: [address] [place] [address] Performed By: #### 1 9123-9, 70221-9, 85146-8 ####BAIRD LABORATORYCLIA [id number] [place] [address] [place] Chloride [Moles/Vol] 98 mmol/L Normal 98-107 [facility] Comment on above: Order Comment: Speci men Type: BLOOD SPECIMENOrdering Facility: [facility] [place] Address: [address] [place] [address] Performed By: #### 1 9123-9, 64541-7, 64038-7 ####PARKHILL LABORATORYCLIA [id number] [place] [address] [place] CO2 [Moles/Vol] 25 mmol/L Normal 22-30 [facility] Comment on above: Order Comment: Speci men Type: BLOOD SPECIMENOrdering Facility: [facility] [place] Address: [address] [place] [address] Performed By: #### 1 9123-9, 13603-2, 64086-9 ####PARKHILL LABORATORYCLIA [id number] [place] [address] [place] Creatinine [Mass/Vol] 0.93 mg/dL Normal 0.58-0.96 [facility] Comment on above: Order Comment: Speci men Type: BLOOD SPECIMENOrdering Facility: [facility] [place] Address: [address] [place] [address] Performed By: #### 1 9123-9, 39818-2, 59055-0 ####PARKHILL LABORATORYCLIA [id number] [place] [id number] [place] eGFRcr SerPlBld CKD-EPI 2020 59 mL/min/1.73m??? Low >=60 [facility] Comment on above: Order Comment: Speci men Type: BLOOD SPECIMENOrdering Facility: [facility] [place] Address: [address] [place] [address] Result Comment: Radha mated Glomerular Filtration Rate [...] actual GFR. Performed By: #### 1 9123-9, 29439-1, 61843-3 ####PARKHILL LABORATORYCLIA [id number] [place] [id number] [place] Glucose [Mass/Vol] 93 mg/dL Normal 74-99 [facility] Comment on above: Order Comment: Vita florez Type: BLOOD SPECIMENOrdering Facility: [facility] [place] Address: [address] [place], [place] [address] Result Comment: The [place] Diabetes Association (ADA) provides guidance for cutoff [...] Standards of Medical Care in Diabetes 2016, [place] [employer]. Diabetes Care. 2016.39(Suppl 1). Performed By: #### 1 9123-9, 36116-8, 83142-9 ####PARKHILL LABORATORYCLIA [id number] [place] [id number] [place] Potassium [Moles/Vol] 4.1 mmol/L Normal 3.7-5.1 [facility] Comment on above: Order Comment: Vita florez Type: BLOOD SPECIMENOrdering Facility: [facility] [place] Address: [address] [place] [address] Performed By: #### 1 9123-9, 10200-3, 74079-3 ####PARKHILL LABORATORYCLIA [id number] [place] [address] [place] Sodium [Moles/Vol] 136 mmol/L Normal 136-144 [facility] Comment on above: Order Comment: Speci men Type: BLOOD SPECIMENOrdering Facility: [facility] [place] Address: [address] [place] [address] Performed By: #### 1 9123-9, 08180-6, 67121-2 ####BAIRD LABORATORYCLIA [id number] [address] [place] [facility] Urea nitrogen [Mass/Vol] 29 mg/dL High 7-21 [facility] Comment on above: Order Comment: Speci men Type: BLOOD SPECIMENOrdering Facility: [facility] [place] Address: [address] [place] [address] Performed By: #### 1 9123-9, 39284-2, 69607-6 ####BAIRD LABORATORYCLIA [id number] [address] [place] CBC panel Auto (Bld)on 03-04 Erythrocyte distribution width (RBC) [Ratio] 16.9 % High 11.5-15.0 [facility] Comment on above: Order Comment: Speci men Type: BLOOD SPECIMENOrdering Facility: [facility] [place] Address: [address] [place] [address] Performed By: #### 5 8410-2 ####BAIRD LABORATORYCLIA [id number] [address] [place] Hematocrit (Bld) [Volume fraction] 42.7 % Normal 36.0-46.0 [facility] Comment on above: Order Comment: Speci men Type: BLOOD SPECIMENOrdering Facility: [facility] [place] Address: [address] [place] [address] Performed By: #### 5 8410-2 ####BAIRD LABORATORYCLIA [id number] [address] Hemoglobin (Bld) [Mass/Vol] 14.1 g/dL Normal 11.5-15.5 [facility] Comment on above: Order Comment: Speci men Type: BLOOD SPECIMENOrdering Facility: [facility] [place] Address: [address] [place] [address] Performed By: #### 5 8410-2 ####BAIRD LABORATORYCLIA [id number] [address] MCH (RBC) [Entitic mass] 28.9 pg Normal 26.0-34.0 [facility] Comment on above: Order Comment: Speci men Type: BLOOD SPECIMENOrdering Facility: [facility] [place] Address: [address] [place] [address] Performed By: #### 5 8410-2 ####BAIRD LABORATORYCLIA [id number] [address] MCHC (RBC) [Mass/Vol] 33.0 g/dL Normal 30.5-36.0 [facility] Comment on above: Order Comment: Speci men Type: BLOOD SPECIMENOrdering Facility: [facility] [place] Address: [address] [place] [address] Performed By: #### 5 8410-2 ####BAIRD LABORATORYCLIA [id number] [address] MCV (RBC) [Entitic vol] 87.5 fL Normal 80.0-100.0 [facility] Comment on above: Order Comment: Speci men Type: BLOOD SPECIMENOrdering Facility: [facility] [place] Address: [address] [place] [address] Performed By: #### 5 8410-2 ####BAIRD LABORATORYCLIA [id number] [address] Nucleated RBC (Bld) [#/Vol] 10*3/uL Normal <0.01 [facility] Comment on above: Order Comment: Speci men Type: BLOOD SPECIMENOrdering Facility: [facility] [place] Address: [address] [place] [address] Performed By: #### 5 8410-2 ####BAIRD LABORATORYCLIA [id number] [address] Platelet mean volume (Bld) [Entitic vol] 10.4 fL Normal 9.0-12.7 [facility] Comment on above: Order Comment: Speci men Type: BLOOD SPECIMENOrdering Facility: [facility] [place] Address: [address] [place] [address] Performed By: #### 5 8410-2 ####BAIRD LABORATORYCLIA [id number] [address] [place] Platelets (Bld) [#/Vol] 337 10*3/uL Normal 150-400 [facility] Comment on above: Order Comment: Speci men Type: BLOOD SPECIMENOrdering Facility: [facility] [place] Address: [address] [place] [address] Performed By: #### 5 8410-2 ####PARKHILL LABORATORYCLIA [id number] [place] [address] [place] RBC (Bld) [#/Vol] 4.88 10*6/uL Normal 3.90-5.20 [facility] Comment on above: Order Comment: Speci men Type: BLOOD SPECIMENOrdering Facility: [facility] [place] Address: [address] [place] [address] Performed By: #### 5 8410-2 ####PARKHILL LABORATORYCLIA [id number] [address] WBC (Bld) [#/Vol] 12.10 10*3/uL High 3.70-11.00 [facility] Comment on above: Order Comment: Speci men Type: BLOOD SPECIMENOrdering Facility: [facility] [place] Address: [address] [place] [address] Performed By: #### 5 8410-2 ####PARKHILL LABORATORYCLIA [id number] [address] [place] Magnesium SerPl-mCncon 03-04 Magnesium [Mass/Vol] 2.3 mg/dL Normal 1.7-2.3 [facility] Comment on above: Order Comment: Speci men Type: BLOOD SPECIMENOrdering Facility: [facility] [place] Address: [address] [place] [address] Performed By: #### 1 9123-9, 72282-4, 03022-1 ####BAIRD LABORATORYCLIA [id number] [address] [place] NT-proBNP SerPl-mCncon 03-04 Natriuretic peptide.B prohormone N-Terminal [Mass/Vol] 31424 pg/mL High <450 [facility] Comment on above: Order Comment: Speci men Type: BLOOD SPECIMENOrdering Facility: [facility] [place] Address: [address] [place] [id number] Performed By: #### 1 9123-9, 77304-5, 99619-2 ####PARKHILL LABORATORYCLIA [id number] [address] THERAPY NTon 03-04-2025 THERAPY NT HNO ID: [id number] Author: PEYTON MARX RRT Service: Respiratory Therapy Author Type: Registered Resp Therapist Type: Therapy (PT/OT/Speech/Resp) Filed: 03/04/2025 23:46 Note Text: RESPIRATORY THERAPY PROGRESS NOTE SERVICE DATE: 03/04/2025 SERVICE TIME: 2336 Overnight Trending Pulse ox. study stopped. Pt is refusing pulse ox on finger. RN and MEDICAL BILLER/CODER aware SIGNATURE: Peyton Marx RRT PATIENT NAME: Na Good DATE: March 04, 2025 TIME: 11:45 PM PAGER/CONTACT #: Normal [facility] THERAPY NT HNO ID: [id number] Author: KRISS ZAMORA PT, DPT Service: Physical Therapy Author Type: Physical Therapist Type: Therapy (PT/OT/Speech/Resp) Filed: 03/04/2025 14:04 Note Text: Summary: PT evalaution Physical Therapy Evaluation Summary SERVICE DATE: 03/04/2025 SERVICE TIME: 1344 to 1356 ROOM: [id number] PT 6 Clicks Score: 18 DISCHARGE RECOMMENDATIONS Home PT Recommended Discharge Disposition Comments: at [facility] Anticipated Discharge Needs: Physical Assist [...] Would be appropriate to return home to [facility] with previous level of assist and home PT. PRECAUTIONS Bed/Chair Alarm, Fall Risk, Lines/Tubes/Drains CURRENT HOSPITAL COURSE Patient presents with SOB, admitted for acute on chronic CHF Relevant Past Medical History: ASCVA, CAD, CHF, HTN, insomnia, LV mural thrombus, tremor, cardiomyopathy HOME LIVING Patient Lives With: Facility Care, Other: See Comment Comments: [facility] Assistance Available: 24-Hour Entry To [...] DATE: March 04, 2025 TIME: 2:04 PM [facility] THERAPY NT HNO ID: [id number] Author: CAROLE HUGHES OT/Amy Service: Occupational Therapy Author Type: Occupational Therapist Type: Therapy (PT/OT/Speech/Resp) Filed: 03/04/2025 11:59 Note Text: Summary: OT Evaluation Occupational Therapy Evaluation Summary SERVICE DATE: 03/04/2025 SERVICE TIME: 1119 to 1152 ROOM: [id number] OT 6 Clicks Score: 18 DISCHARGE RECOMMENDATIONS [...] SOB, SpO2 >93% throughout, pt is extremely CHINIK with baseline visual impairments, appears to be near baseline with ADLs, eager to return to [facility] PRECAUTIONS Bed/Chair Alarm, Fall Risk, Lines/Tubes/Drains CURRENT HOSPITAL COURSE Patient presents with SOB, admitted for acute on chronic CHF Relevant Past Medical History: ASCVA, CAD, CHF, HTN, insomnia, LV mural thrombus, tremor, cardiomyopathy HOME LIVING Patient Lives With: Facility Care, Other: See Comment Comments: [facility] Assistance Available: 24-Hour Entry To [...] pt is eager to return home to [facility] COGNITION Orientation Deficits: (AOx4) Responsiveness: Alert, Awake Follows Commands: 3-step Commands THERAPY DIAGNOSIS Reduced mobility-other, Decreased activities of daily living (ADL), Muscle Weakness (generalized) TREATMENT INTERVENTIONS Evaluation, Self Jail Management (78990) Timed Code Treatment (minutes): 18 Skilled Treatment Time (minutes): 33 TRAINING AND EDUCATION PROVIDED Activity Adaptation/Product Safety Manager y Strategies, Adaptive Equipment/DME, Bed Mobility, Benefits of In-Hospital Mobility, Cognitive Skills, Command Following, Discharge Planning, Expected Functional Level, Functional Mobility Involving ADLs, Insight into Deficits, Orientation, Memory/Attention, Positioning, Safety/Judgment, Role of Occupational Therapy, Sitting Balance to Improve Flora with ADLs/Self-Care, Standing Balance to Improve Flora with ADLs/Self-Care, Transfer - Sit to Stand [...] (more content not included)... Normal [facility] Basic metabolic 2000 panelon 03-03-2025 Anion gap [Moles/Vol] 13 mmol/L Normal -15 [facility] Comment on above: Order Comment: Speci men Type: BLOOD SPECIMENOrdering Facility: [facility] [place] Address: [address] [place] [address] Performed By: #### 2 4321-2, 85090-2 ####BAIRD LABORATORYCLIA [id number] [place] [address] [place] Calcium [Mass/Vol] 9.6 mg/dL Normal 8.5-10.2 [facility] Comment on above: Order Comment: Speci men Type: BLOOD SPECIMENOrdering Facility: [facility] [place] Address: [address] [place] [address] Performed By: #### 2 4321-2, ####BAIRD LABORATORYCLIA [id number] [place] [address] [place] Chloride [Moles/Vol] 99 mmol/L Normal 98-107 [facility] Comment on above: Order Comment: Speci men Type: BLOOD SPECIMENOrdering Facility: [facility] [place] Address: [address] [place] [address] Performed By: #### 2 4321-2, ####BAIRD LABORATORYCLIA [id number] [place] [address] [place] CO2 [Moles/Vol] 25 mmol/L Normal 22-30 [facility] Comment on above: Order Comment: Speci men Type: BLOOD SPECIMENOrdering Facility: [facility] [place] Address: [address] [place] [address] Performed By: #### 2 4321-2, ####BAIRD LABORATORYCLIA [id number] [place] [address] [place] Creatinine [Mass/Vol] 1.05 mg/dL High 0.58-0.96 [facility] Comment on above: Order Comment: Speci men Type: BLOOD SPECIMENOrdering Facility: [facility] [place] Address: [address] [place] [id number] Performed By: #### 2 4321-2, ####BAIRD LABORATORYCLIA [id number] [address] [place] eGFRcr SerPlBld CKD-EPI 2020 51 mL/min/1.73m??? Low >=60 [facility] Comment on above: Order Comment: Speci men Type: BLOOD SPECIMENOrdering Facility: [facility] [place] Address: [address] [place] [address] Result Comment: Radha mated Glomerular Filtration Rate [...] actual GFR. Performed By: #### 2 432-, ####PARKHILL LABORATORYCLIA [id number] [place] [address] [place] Glucose [Mass/Vol] 100 mg/dL High 74-99 [facility] Comment on above: Order Comment: Vita florez Type: BLOOD SPECIMENOrdering Facility: [facility] [place] Address: [address] [place] [address] Result Comment: The [place] Diabetes Association (ADA) provides guidance for cutoff [...] Standards of Medical Care in Diabetes 2016, [place] [employer] Association. Diabetes Care. 2016.39(Suppl 1). Performed By: #### 2 4320-05, ####PARKHILL LABORATORYCLIA [id number] [place] [address] [place] Potassium [Moles/Vol] 4.1 mmol/L Normal 3.7-5.1 [facility] Comment on above: Order Comment: Vita florez Type: BLOOD SPECIMENOrdering Facility: [facility] [place] Address: [address] [place] [id number] Performed By: #### 2 432-, ####PARKHILL LABORATORYCLIA [id number] [place] [address] [place] Sodium [Moles/Vol] 137 mmol/L Normal 136-144 [facility] Comment on above: Order Comment: Speci men Type: BLOOD SPECIMENOrdering Facility: [facility] [place] Address: [address] [place] [address] [place] [address] Performed By: #### 2 4321-2, 36362-1 ####BAIRD LABORATORYCLIA [id number] [address] [place] Urea nitrogen [Mass/Vol] 30 mg/dL High 7-21 [facility] Comment on above: Order Comment: Speci men Type: BLOOD SPECIMENOrdering Facility: [facility] [place] Address: [address] [place] [address] Performed By: #### 2 432-2, ####BAIRD LABORATORYCLIA [id number] [address] [place] CBC panel Auto (Bld)on 03-03 Erythrocyte distribution width (RBC) [Ratio] 17.2 % High 11.5-15.0 [facility] Comment on above: Order Comment: Speci men Type: BLOOD SPECIMENOrdering Facility: [facility] [place] Address: [address] [place] [address] Performed By: #### 5 8410-2 ####BAIRD LABORATORYCLIA [id number] [address] [place] Hematocrit (Bld) [Volume fraction] 41.9 % Normal 36.0-46.0 [facility] Comment on above: Order Comment: Speci men Type: BLOOD SPECIMENOrdering Facility: [facility] [place] Address: [address] [place] [address] Performed By: #### 5 8410-2 ####BAIRD LABORATORYCLIA [id number] [address] [place] Hemoglobin (Bld) [Mass/Vol] 13.9 g/dL Normal 11.5-15.5 [facility] Comment on above: Order Comment: Speci men Type: BLOOD SPECIMENOrdering Facility: [facility] [place] Address: [address] [place] [address] Performed By: #### 5 8410-2 ####BAIRD LABORATORYCLIA [id number] [address] MCH (RBC) [Entitic mass] 29.3 pg Normal 26.0-34.0 [facility] Comment on above: Order Comment: Speci men Type: BLOOD SPECIMENOrdering Facility: [facility] [place] Address: [address] [place] [address] Performed By: #### 5 8410-2 ####BAIRD LABORATORYCLIA [id number] [address] MCHC (RBC) [Mass/Vol] 33.2 g/dL Normal 30.5-36.0 [facility] Comment on above: Order Comment: Speci men Type: BLOOD SPECIMENOrdering Facility: [facility] [place] Address: [address] [place] [address] Performed By: #### 5 8410-2 ####BAIRD LABORATORYCLIA [id number] [address] MCV (RBC) [Entitic vol] 88.4 fL Normal 80.0-100.0 [facility] Comment on above: Order Comment: Speci men Type: BLOOD SPECIMENOrdering Facility: [facility] [place] Address: [address] [place] [address] Performed By: #### 5 8410-2 ####BAIRD LABORATORYCLIA [id number] [address] Nucleated RBC (Bld) [#/Vol] 10*3/uL Normal <0.01 [facility] Comment on above: Order Comment: Speci men Type: BLOOD SPECIMENOrdering Facility: [facility] [place] Address: [address] [place] [address] Performed By: #### 5 8410-2 ####BAIRD LABORATORYCLIA [id number] [address] Platelet mean volume (Bld) [Entitic vol] 10.9 fL Normal 9.0-12.7 [facility] Comment on above: Order Comment: Speci men Type: BLOOD SPECIMENOrdering Facility: [facility] [place] Address: [address] [place] [address] Performed By: #### 5 8410-2 ####PARKHILL LABORATORYCLIA [id number] [address] Platelets (Bld) [#/Vol] 366 10*3/uL Normal 150-400 [facility] Comment on above: Order Comment: Speci men Type: BLOOD SPECIMENOrdering Facility: [facility] [place] Address: [address] [place] [address] Performed By: #### 5 8410-2 ####PARKHILL LABORATORYCLIA [id number] [address] OF [facility] RBC (Bld) [#/Vol] 4.74 10*6/uL Normal 3.90-5.20 [facility] Comment on above: Order Comment: Speci men Type: BLOOD SPECIMENOrdering Facility: [facility] [place] Address: [address] [place] [address] Performed By: #### 5 8410-2 ####PARKHILL LABORATORYCLIA [id number] [address] WBC (Bld) [#/Vol] 12.19 10*3/uL High 3.70-11.00 [facility] Comment on above: Order Comment: Speci men Type: BLOOD SPECIMENOrdering Facility: [facility] Address: [address] [place] [address] Performed By: #### 5 8410-2 ####PARKHILL LABORATORYCLIA [id number] [place] [id number] [facility] CONSULTon 03-03-2025 CONSULT HNO ID: [id number] Author: LIDIA ARMENTA APRN.FELT CEMENTER Service: Cardiovascular Medicine Author Type: Nurse Practitioner [...] 1+ MR, trace TR, 1-2+ AR, trace RI, mid ascending 3 cm, trivial Pericardial effusion [...] 03/03/2025 Time: 10:30 AM [facility] Domenic Rayo Department of Cardiovascular Medicine SECTION OF [facility] Consultation Note Name: Na Good : 1935 Primary Physician: Alexey Vinson Sr, DO Consulting Physician: Bismark Sales MD Primary Occupational Therapy Asst: SERVICE DATE: March 03, 2025 REASON FOR [...] [facility] She is short of breath with [...] (more content not included)... Normal [facility] Magnesium SerPl-mCncon 03-03 Magnesium [Mass/Vol] 2.6 mg/dL High 1.7-2.3 [facility] Comment on above: Order Comment: Speci men Type: BLOOD SPECIMENOrdering Facility: [facility] Address: [address] [place] [address] Performed By: #### 2 4321-2, 21273-2 ####PARKHILL LABORATORYCLIA [id number] [place] [address] [facility] [place] NURSING PROGon 03-03-2025 NURSING PROG HNO ID: [id number] Author: ESCOBAR BRAXTON RN Service: Nursing Author Type: Registered Nurse Type: Nursing Progress Note Filed: 03/03/2025 15:19 Note Text: PATIENT EDUCATION HEART FAILURE PATIENT NAME: Na Good PATIENT LOCATION: [place] [address] [address] SURVIVAL SKILLS: Low Sodium Diet Weight Monitoring [...] family, Lucero, is at bedside. Pt is [place] and does not have her hearing aids. Friend states she resides at [facility] and gets medications and all meals provided. All of pt's children reside out of state, however, one of her children comes in each month to visit. Heart Failure Zones and handouts relating to survival skills left at bedside. Friend states pt's daughter will be here tomorrow or . Contact information in folder. Electronically Signed By: Escobar Braxton [facility] ALLIED HEALTHon 03-02-2025 ALLIED HEALTH HNO ID: [id number] Author: ALEX VENTURA CT Service: Radiology Author [...] PATIENT PRESENTS WITH AN IMPLANTABLE OR ATTACHED PLAYGROUND DIRECTOR: No RADIOLOGY DEPARTMENT: General X-ray: Exam(s) Completed: Chest X-Ray PERIPHERAL IV DATA: Not applicable SIGNED BY: LAUREL Powell March 02, 2025 2:37 PM [facility] ALT SerPl-cCncon 03-02-2025 ALT [Catalytic activity/Vol] 45 U/L High 7-38 [facility] Comment on above: Order Comment: Vita folrez Type: BLOOD SPECIMENOrdering Facility: [facility] [place] Address: [address] [place] [address] Performed By: #### 1 920-8, [id number], 1741-09, 3015-06, 1987-08 ####[facility] LABORATORYCLIA [id number] [place] [address] [place] AST SerPl-cCncon 03-02-2025 AST [Catalytic activity/Vol] 52 U/L High 13-35 [facility] Comment on above: Order Comment: Vita florez Type: BLOOD SPECIMENOrdering Facility: [facility] [place] Address: [address] [place] [address] Performed By: #### 1 920-8, DEH3414, 1746, 3015-06, 1987-08 ####[facility] LABORATORYCLIA [id number] [place] [address] [place] CBC W Auto Differential pane l (Bld)on 03-02-2025 Basophils (Bld) [#/Vol] 0.06 10*3/uL Normal <0.11 [facility] Comment on above: Order Comment: Speci men Type: BLOOD SPECIMENOrdering Facility: [facility] [place] Address: [address] [place] [address] Performed By: #### 5 7021-8 ####[facility] LABORATORYCLIA [id number] [place] [address] [place] Basophils/100 WBC (Bld) 0.5 % Normal [facility] Comment on above: Order Comment: Speci men Type: BLOOD SPECIMENOrdering Facility: [facility] [place] Address: [address] [place] [address] Performed By: #### 5 7021-8 ####[facility] LABORATORYCLIA [id number] [address] [place] Differential cell count method Nom (Bld) Auto Normal [facility] Comment on above: Order Comment: Speci men Type: BLOOD SPECIMENOrdering Facility: [facility] [place] Address: [address] [place] [address] Performed By: #### 5 7021-8 ####[facility] LABORATORYCLIA [id number] [place] [address] [place] Eosinophils (Bld) [#/Vol] 10*3/uL Normal <0.46 [facility] Comment on above: Order Comment: Speci men Type: BLOOD SPECIMENOrdering Facility: [facility] [place] Address: [address] [place] [address] Performed By: #### 5 7021-8 ####[facility] LABORATORYCLIA [id number] [address] [place] Eosinophils/100 WBC (Bld) 0.1 % Normal [facility] Comment on above: Order Comment: Speci men Type: BLOOD SPECIMENOrdering Facility: [facility] [place] Address: [address] [place] [address] Performed By: #### 5 7021-8 ####[facility] LABORATORYCLIA [id number] [place] [address] [place] Erythrocyte distribution width (RBC) [Ratio] 17.2 % High 11.5-15.0 [facility] Comment on above: Order Comment: Speci men Type: BLOOD SPECIMENOrdering Facility: [facility] [place] Address: [address] [place] [address] Performed By: #### 5 7021-8 ####[facility] LABORATORYCLIA [id number] [place] [address] [place] Hematocrit (Bld) [Volume fraction] 42.3 % Normal 36.0-46.0 [facility] Comment on above: Order Comment: Speci men Type: BLOOD SPECIMENOrdering Facility: [facility] [place] Address: [address] [place] [address] Performed By: #### 5 7021-8 ####BA[facility] LABORATORYCLIA [id number] [place] [address] [place] Hemoglobin (Bld) [Mass/Vol] 14.1 g/dL Normal 11.5-15.5 [facility] Comment on above: Order Comment: Speci men Type: BLOOD SPECIMENOrdering Facility: [facility] [place] Address: [address] [place] [address] Performed By: #### 5 7021-8 ####[facility] LABORATORYCLIA [id number] [address] [place] Immature granulocytes (Bld) [#/Vol] 0.07 10*3/uL Normal <0.10 [facility] Comment on above: Order Comment: Speci men Type: BLOOD SPECIMENOrdering Facility: [facility] [place] Address: [address] [place] [address] Performed By: #### 5 7021-8 ####[facility] LABORATORYCLIA [id number] [address] [place] Immature granulocytes/100 WBC (Bld) 0.6 % Normal [facility] Comment on above: Order Comment: Speci men Type: BLOOD SPECIMENOrdering Facility: [facility] [place] Address: [address] [place] [address] Performed By: #### 5 7021-8 ####[facility] LABORATORYCLIA [id number] [address] [place] Lymphocytes (Bld) [#/Vol] 1.26 10*3/uL Normal 1.00-4.00 [facility] Comment on above: Order Comment: Speci men Type: BLOOD SPECIMENOrdering Facility: [facility] [place] Address: [address] [place] [address] Performed By: #### 5 7021-8 ####[facility] LABORATORYCLIA [id number] [address] Lymphocytes/100 WBC (Bld) 10.8 % Normal [facility] Comment on above: Order Comment: Speci men Type: BLOOD SPECIMENOrdering Facility: [facility] [place] Address: [address] [place] [address] Performed By: #### 5 7021-8 ####BAIRD LABORATORYCLIA [id number] [address] MCH (RBC) [Entitic mass] 29.6 pg Normal 26.0-34.0 [facility] Comment on above: Order Comment: Speci men Type: BLOOD SPECIMENOrdering Facility: [facility] [place] Address: [address] [place] [address] Performed By: #### 5 7021-8 ####[facility] LABORATORYCLIA [id number] [address] MCHC (RBC) [Mass/Vol] 33.3 g/dL Normal 30.5-36.0 [facility] Comment on above: Order Comment: Speci men Type: BLOOD SPECIMENOrdering Facility: [facility] [place] Address: [address] [place] [address] Performed By: #### 5 7021-8 ####[facility] LABORATORYCLIA [id number] [address] MCV (RBC) [Entitic vol] 88.9 fL Normal 80.0-100.0 [facility] Comment on above: Order Comment: Speci men Type: BLOOD SPECIMENOrdering Facility: [facility] [place] Address: [address] [place] [address] Performed By: #### 5 7021-8 ####BA[facility] LABORATORYCLIA [id number] [place] [address] [place] Monocytes (Bld) [#/Vol] 1.08 10*3/uL High <0.87 [facility] Comment on above: Order Comment: Speci men Type: BLOOD SPECIMENOrdering Facility: [facility] [place] Address: [address] [place] [address] Performed By: #### 5 7021-8 ####BAIRD LABORATORYCLIA [id number] [place] [id number] [place] Monocytes/100 WBC (Bld) 9.3 % Normal [facility] Comment on above: Order Comment: Speci men Type: BLOOD SPECIMENOrdering Facility: [facility] [place] Address: [address] [place] [address] Performed By: #### 5 7021-8 ####BA[facility] LABORATORYCLIA [id number] [place] [address] [place] Neutrophils (Bld) [#/Vol] 9.14 10*3/uL High 1.45-7.50 [facility] Comment on above: Order Comment: Speci men Type: BLOOD SPECIMENOrdering Facility: [facility] [place] Address: [address] [place] [address] Performed By: #### 5 7021-8 ####BA[facility] LABORATORYCLIA [id number] [place] [id number] [place] Neutrophils/100 WBC (Bld) 78.7 % Normal [facility] Comment on above: Order Comment: Speci men Type: BLOOD SPECIMENOrdering Facility: [facility] [place] Address: [address] [place] [address] Performed By: #### 5 7021-8 ####BAIRD LABORATORYCLIA [id number] [place] [id number] [place] Nucleated RBC (Bld) [#/Vol] 10*3/uL Normal <0.01 [facility] Comment on above: Order Comment: Speci men Type: BLOOD SPECIMENOrdering Facility: [facility] [place] Address: [address] [place] [address] Performed By: #### 5 7021-8 ####BA[facility] LABORATORYCLIA [id number] [place] [id number] [place] Nucleated RBC/100 WBC (Bld) [Ratio] 0.0 /100 WBC Normal [facility] Comment on above: Order Comment: Speci men Type: BLOOD SPECIMENOrdering Facility: [facility] [place] Address: [address] [place] [address] Performed By: #### 5 7021-8 ####BAIRD LABORATORYCLIA [id number] [place] [address] [place] Platelet mean volume (Bld) [Entitic vol] 10.8 fL Normal 9.0-12.7 [facility] Comment on above: Order Comment: Speci men Type: BLOOD SPECIMENOrdering Facility: [facility] [place] Address: [address] [place] [address] Performed By: #### 5 7021-8 ####BAIRD LABORATORYCLIA [id number] [address] [place] Platelets (Bld) [#/Vol] 380 10*3/uL Normal 150-400 [facility] Comment on above: Order Comment: Speci men Type: BLOOD SPECIMENOrdering Facility: [facility] [place] Address: [address] [place] [address] Performed By: #### 5 7021-8 ####BAIRD LABORATORYCLIA [id number] [place] [address] [place] RBC (Bld) [#/Vol] 4.76 10*6/uL Normal 3.90-5.20 [facility] Comment on above: Order Comment: Speci men Type: BLOOD SPECIMENOrdering Facility: [facility] [place] Address: [address] [place] [address] Performed By: #### 5 7021-8 ####[facility] LABORATORYCLIA [id number] [address] [place] WBC (Bld) [#/Vol] 11.62 10*3/uL High 3.70-11.00 [facility] Comment on above: Order Comment: Speci men Type: BLOOD SPECIMENOrdering Facility: [facility] [place] Address: [address] [place] [address] Performed By: #### 5 7021-8 ####[facility] LABORATORYCLIA [id number] [address] CRP SerPl-mCncon 03-02-2025 CRP [Mass/Vol] 0.4 mg/dL Normal <0.9 [facility] Comment on above: Order Comment: Speci men Type: BLOOD SPECIMENOrdering Facility: [facility] [place] Address: [address] [place] [address] Performed By: #### 1 920-8, WHF6110, 1742-6, 3016-3, 1987- ####[facility] LABORATORYCLIA [id number] [address] Comprehensive metabolic 2000 panelon 03-02-2025 Albumin [Mass/Vol] 4.2 g/dL Normal 3.9-4.9 [facility] Comment on above: Order Comment: Speci men Type: BLOOD SPECIMENOrdering Facility: [facility] [place] Address: [address] [place] [address] Performed By: #### 2 4323-8, 48370-5, 67730-4 ####[facility] LABORATORYCLIA [id number] [address] ALP [Catalytic activity/Vol] 49 U/L Normal 34-123 [facility] Comment on above: Order Comment: Speci men Type: BLOOD SPECIMENOrdering Facility: [facility] [place] Address: [address] [place] [address] Performed By: #### 2 4323-8, 21535-8, 04187-7 ####[facility] LABORATORYCLIA [id number] [address] ALT [Catalytic activity/Vol] Normal [facility] Comment on above: Order Comment: Speci men Type: BLOOD SPECIMENOrdering Facility: [facility] [place] Address: [address] [place] [address] Result Comment: Unab le to assay due to interference from hemolysis. Suggest reorder as clinically indicated. Performed By: #### 2 4323-8, 72979-2, 66941-9 ####[facility] LABORATORYCLIA [id number] [place] [address] [place] Anion gap [Moles/Vol] 13 mmol/L Normal 8-15 [facility] Comment on above: Order Comment: Speci men Type: BLOOD SPECIMENOrdering Facility: [facility] [place] Address: [address] [place] [address] Performed By: #### 2 4323-8, 15069-4, 85049-5 ####[facility] LABORATORYCLIA [id number] [place] [id number] [place] AST [Catalytic activity/Vol] Normal [facility] Comment on above: Order Comment: Speci men Type: BLOOD SPECIMENOrdering Facility: [facility] [place] Address: [address] [place] [address] Result Comment: Unab le to assay due to interference from hemolysis. Suggest reorder as clinically indicated. Performed By: #### 2 4323-8, , 80566-1 ####[facility] LABORATORYCLIA [id number] [place] [address] [place] Bilirubin [Mass/Vol] 0.8 mg/dL Normal 0.2-1.3 [facility] Comment on above: Order Comment: Speci men Type: BLOOD SPECIMENOrdering Facility: [facility] [place] Address: [address] [place] [address] Performed By: #### 2 4323-8, 02288-4, 01692-9 ####[facility] LABORATORYCLIA [id number] [place] [id number] [place] Calcium [Mass/Vol] 9.5 mg/dL Normal 8.5-10.2 [facility] Comment on above: Order Comment: Speci men Type: BLOOD SPECIMENOrdering Facility: [facility] [place] Address: [address] [place] [address] Performed By: #### 2 4323-8, 42994-8, 04683-9 ####PAR[facility] LABORATORYCLIA [id number] [place] [address] [place] Chloride [Moles/Vol] 98 mmol/L Normal 98-107 [facility] Comment on above: Order Comment: Speci men Type: BLOOD SPECIMENOrdering Facility: [facility] [place] Address: [address] [place] [address] Performed By: #### 2 4323-8, 30246-7, 45777-2 ####BA[facility] LABORATORYCLIA [id number] [place] [address] [place] CO2 [Moles/Vol] 22 mmol/L Normal 22-30 [facility] Comment on above: Order Comment: Speci men Type: BLOOD SPECIMENOrdering Facility: [facility] [place] Address: [address] [place] [address] Performed By: #### 2 4323-8, , 57906-1 ####PAR[facility] LABORATORYCLIA [id number] [address] STATES OF [facility] Creatinine [Mass/Vol] 0.89 mg/dL Normal 0.58-0.96 [facility] Comment on above: Order Comment: Speci men Type: BLOOD SPECIMENOrdering Facility: [facility] [place] Address: [address] [place] [address] Performed By: #### 2 4323-8, 47708-3, 78804-1 ####[facility] LABORATORYCLIA [id number] [address] eGFRcr SerPlBld CKD-EPI 2020 62 mL/min/1.73m??? Normal >=60 [facility] Comment on above: Order Comment: Speci men Type: BLOOD SPECIMENOrdering Facility: [facility] [place] Address: [address] [place] [address] Result Comment: Radha mated Glomerular Filtration Rate [...] actual GFR. Performed By: #### 2 4323-8, 22006-4, 67021-4 ####BAIRD LABORATORYCLIA [id number] [place] [address] [place] Glucose [Mass/Vol] 106 mg/dL High 74-99 [facility] Comment on above: Order Comment: Vita florez Type: BLOOD SPECIMENOrdering Facility: [facility] [place] Address: [address] [place] [address] Result Comment: The [place] Diabetes Association (ADA) provides guidance for cutoff [...] Standards of Medical Care in Diabetes 2016, [place] [employer]. Diabetes Care. 2016.39(Suppl 1). Performed By: #### 2 4323-8, 92360-4, 08570-1 ####[facility] LABORATORYCLIA [id number] [place] [id number] [place] Potassium [Moles/Vol] 5.2 mmol/L High 3.7-5.1 [facility] Comment on above: Order Comment: Vita florez Type: BLOOD SPECIMENOrdering Facility: [facility] [place] Address: [address] [place] [address] Performed By: #### 2 4323-8, 49800-5, 14832-1 ####[facility] LABORATORYCLIA [id number] [place] [id number] [place] Protein [Mass/Vol] 6.8 g/dL Normal 6.3-8.0 [facility] Comment on above: Order Comment: Vita florez Type: BLOOD SPECIMENOrdering Facility: [facility] [place] Address: [address] [place] [address] Performed By: #### 2 4323-8, 65053-9, 69983-5 ####[facility] LABORATORYCLIA [id number] [place] [id number] [place] Sodium [Moles/Vol] 133 mmol/L Low 136-144 [facility] Comment on above: Order Comment: Speci men Type: BLOOD SPECIMENOrdering Facility: [facility] [place] Address: [address] [place] [address] Performed By: #### 2 4323-8, 67960-8, 29241-9 ####[facility] LABORATORYCLIA [id number] [place] [address] [place] [facility] Urea nitrogen [Mass/Vol] 32 mg/dL High 7-21 [facility] Comment on above: Order Comment: Speci men Type: BLOOD SPECIMENOrdering Facility: [facility] [place] Address: [address] [place] [id number] Performed By: #### 2 4323-8, 72250-3, 41003-8 ####[facility] LABORATORYCLIA [id number] [address] [place] CTD85ve 03-02-2025 ECG01 Ventricular Rate : 8 0 BPM Atrial Rate : 80 BPM P-R Interval : 162 ms QRS Duration : 136 ms Q-T Interval : 416 ms QTC Calculation(Bazett) : 479 ms Calculated P Calera : -15 degrees Calculated R Calera : -57 degrees Calculated T Calera : 121 degrees SINUS RHYTHM WITH OCCASIONAL PREMATURE VENTRICULAR COMPLEXES LEFT AXIS DEVIATION LEFT VENTRICULAR HYPERTROPHY WITH QRS WIDENING AND REPOLARIZATION ABNORMALITY ( R in aVL , Enloe product , Romhilt-Weir ) POSSIBLE LATERAL INFARCT , AGE UNDETERMINED ABNORMAL ECG No Stemi Confirmed by BEATRIS GILLILAND DO ([id number]) on 03/02/2025 4:13:22 PM NAME : NA GOOD PID : [id number] : 1935 Gender : Female Race : ORD : Procedure Date : Mar 02 2025 14:54:51 Edit Date : Mar 02 2025 16:13:24 Diagnosis: SINUS RHYTHM WITH OCCASIONAL PREMATURE VENTRICULAR COMPLEXES LEFT AXIS DEVIATION LEFT VENTRICULAR HYPERTROPHY WITH QRS WIDENING AND REPOLARIZATION ABNORMALITY ( R in aVL , Enloe product , Romhilt-Weir ) POSSIBLE LATERAL INFARCT , AGE UNDETERMINED ABNORMAL ECG No Stemi Confirmed by BEATRIS GILLILAND DO ([id number]) on 03/02/2025 4:13:22 PM Test Reason : Location : 1 : ER ED Overread By : BEATRIS GILLILAND DO Edited By : BEATRIS GILLILAND DO Referred By : , Acquired by : EVIN [facility] ED NOTEon 03-02-2025 ED NOTE HNO ID: [id number] Author: MELODIE CLEARY, LAKESHIA Service: Nursing Author Type: Registered Nurse Type: ED Notes Filed: 03/02/2025 14:03 Note Text: MD @ BEDSIDE for EVAL [facility] ED NOTE HNO ID: [id number] Author: KAMRON CR, LAKESHIA Service: Behavioral Health Author Type: Registered Nurse Type: ED Notes Filed: 03/02/2025 13:42 Note Text: pt dropped off from assisted living for Shortness of Breath pt states has been seen 3 times for same complaint [facility] ED PROV NOTEon 03-02-2025 ED PROV NOTE HNO ID: [id number] Author: BEATRIS GILLILAND DO Service: Emergency Medicine [...] 9.14 (*) 1.45 - 7.50 k/uL Abs [place] 1.08 (*) <0.87 k/uL All other components [...] (more content not included)... Normal [facility] HIGH SENSITIVITY TROPONIN T (INITIAL)on 03-02-2025 Troponin T.cardiac High sensitivity method [Mass/Vol] 37 ng/L High <12 [facility] Comment on above: Order Comment: Vita florez Type: BLOOD SPECIMENOrdering Facility: [facility] [place] Address: [address] [place] [address] Performed By: #### 1 920-8, [id number], 1742-6, 3016-3, 1988- ####[facility] LABORATORYCLIA [id number] [address] OF [facility] HIGH SENSITIVITY TROPONIN T (SECOND)on 03-02-2025 Troponin T.cardiac High sensitivity method [Mass/Vol] 37 ng/L High <12 [facility] Comment on above: Order Comment: Vita florez Type: BLOOD SPECIMEN Ordering Facility: [facility] [place] Address: [address] [place] [id number] Performed By: #### 2 4321-2 #### [facility] CLIA [id number] [address] [place] [id number] [facility] HIGH SENSITIVITY TROPONIN T (THIRD) 3 HRS AFTER INITIALon 03-02-2025 Troponin T.cardiac High sensitivity method [Mass/Vol] 42 ng/L High <12 [facility] Comment on above: Order Comment: Speci men Type: BLOOD SPECIMENOrdering Facility: [facility] [place] Address: [address] [place] [id number] Performed By: #### L [id number] ####[facility] LABORATORYCLIA [id number] [place] [address] [facility] [place] HISTORY PHYSICALon HISTORY PHYSICAL HNO ID: [id number] Author: BISMARK SALES MD Service: General Internal [...] old female who is a resident of [facility] with PMH of non-ischemic cardiomyopathy, [...] and B/L pleural effusion. BP mildly high, RI normal and pulse oxymetry on RA in [...] (more content not included)... Normal [facility] Magnesium [Mass/Vol] 2.5 mg/dL High 1.7-2.3 [facility] Comment on above: Order Comment: Speci men Type: BLOOD SPECIMENOrdering Facility: [facility] [place] Address: [address] [place] [address] Performed By: #### 2 4323-8, 85246-1, 81018-5 ####[facility] LABORATORYCLIA [id number] [address] NT-proBNP SerPl-mCncon 03-02 Natriuretic peptide.B prohormone N-Terminal [Mass/Vol] 96633 pg/mL High <450 [facility] Comment on above: Order Comment: Speci men Type: BLOOD SPECIMENOrdering Facility: [facility] [place] Address: [address] [place] [address] Performed By: #### 2 4323-8, 73043-8, 87235-9 ####[facility] LABORATORYCLIA [id number] [address] [place] TSH SerPl-aCncon 03-02-2025 TSH Qn 0.498 m[IU]/L Normal 0.270-4.200 [facility] Comment on above: Order Comment: Speci men Type: BLOOD SPECIMENOrdering Facility: [facility] [place] Address: [address] [place] [address] Performed By: #### 1 920-8, HIM0785, 1742-6, 3016-3, 1988- ####[facility] LABORATORYCLIA [id number] [place] [id number] [place] XR CHEST 1V FRONTAL [...] chest PA and lateral views is recommended. Lap Grinder: KONSTANTIN Transcribe Date/Time: Mar 02 2025 3:11P Dictated by : SANDHYA KHOURY MD This examination was interpreted and the report reviewed and electronically signed by: SANDHYA KHOURY MD on Mar 02 2025 3:16PM EST [id number] Normal [facility] Urine Cultureon 02-28-2025 URC UNKNOWN METHOD OF COLLECTION Organism is too fastidious for routine susceptibility studies. Aerococcus urinae [place] Count 50,000-80,000 Normal [facility] Comment on above: Performed By: #### L 500.2500, L100.0500 #### [facility] [address] [place], [address] CNPPatricia 02-27-2025 LELAND Telephone (KRISTA) NA GOOD ([id number]) 1935 F Date Time Provider Department 02/27/25 LIDIA ARMENTA During your visit today, we recorded the following information about you: Merritt Salguero 02/27/2025 9:25 AM Signed Lidia Armenta APRN.[facility] Clerical Pool Can you please send my office note to her AL? 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 They provided their fax number: [phone]. Faxed OV note to [facility]. Allergies As of Date: 02/27/2025 Noted [...] Encounter Status:Closed by MERRITT SALGUERO on 02/27/[address] [facility] [facility] CNPN Telephone (KRISTA) NA GOOD ([id number]) 1935 F Date Time Provider Department 02/26/25 LIDIA ARMENTA During your visit today, we recorded the following information about you: Randell Moreno LPN 02/26/2025 7:34 AM Signed [facility] Results received via fax. Copy placed in PSS basket for scanning. Copy placed on desk of Sisi Armenta for review. Shamir 02/25/26 Sola Meadows 02/26/2025 8:04 AM Signed Scan on 02/26/2025 8:03 AM by Sola Benjamin: [facility]-Ray Results Merritt Salguero 02/27/2025 10:22 AM Signed Patient's assisted living calling medical front desk specialist stating they would like Lidia to [...] Assessed Reason for Visit: Results [95] Cmt: [facility] X-Ray Results Prescriptions as of 03/02/2025 [...] Encounter Status:Closed by JUAN PARSONS on 03/02/[address] [facility] Vanita 02-25-2025 CNOV Office Visit (CARD[facility] ) NA GOOD ([id number]) 1935 F Date Time Provider Department 02/25/25 1:30 PM LIDIA ARMENTA During your visit today, we recorded the following information about you: Pulse Blood pressure Weight Height 95/minute 118/78 54.9 kg 1.575 m Lidia Armenta, MEDICAL BILLER/CODER.FELT CEMENTER 02/25/2025 3:55 PM [facility] Domenic Rayo Department of Cardiovascular Medicine SECTION [...] a follow up visit. Recent admission to [facility] for acute diastolic HF Seen by and [...] She resides in an assisted living facility, [facility], and is accompanied by her nurse [...] prior to the follow up. Lidia Armenta APRN.FELT CEMENTER Cardiology Nurse (more content not included)... Normal [facility] CBC-Complete Blood Cnt No Di ffon 02-24-2025 Erythrocyte distribution width (RBC) [Ratio] 16.4 % High 11.6-14.6 [facility] Comment on above: Order Comment: 546.1 Performed By: #### L 500.2500, L100.0500 #### [facility] [address] [place], [address] Hematocrit (Bld) [Volume fraction] 39.1 % Normal 37-47 [facility] Comment on above: Order Comment: 546.1 Performed By: #### L 500.2500, L100.0500 #### [facility] [address] [place], [address] Hemoglobin (Bld) [Mass/Vol] 13.1 g/dL Normal 12.0-15.0 [facility] Comment on above: Order Comment: 546.1 Performed By: #### L 500.2500, L100.0500 #### [facility] [address] [place], [address] MCH (RBC) [Entitic mass] 29.4 pg Normal 27.0-32.0 [facility] Comment on above: Order Comment: 546.1 Performed By: #### L 500.2500, L100.0500 #### [facility] [address] [place], [address] MCHC (RBC) [Mass/Vol] 33.5 g/dL Normal 32-36 [facility] Comment on above: Order Comment: 546.1 Performed By: #### L 500.2500, L100.0500 #### [facility] [address] [place], [address] MCV (RBC) [Entitic vol] 87.7 fL Normal 81-99 [facility] Comment on above: Order Comment: 546.1 Performed By: #### L 500.2500, L100.0500 #### [facility] [address] [place], [address] Platelet mean volume (Bld) [Entitic vol] 10.6 fL Normal 6.2-12.0 [facility] Comment on above: Order Comment: 546.1 Performed By: #### L 500.2500, L100.0500 #### [facility] [address] [place], [address] Platelets (Bld) [#/Vol] 359 10*3/uL Normal 150-450 [facility] Comment on above: Order Comment: 546.1 Performed By: #### L 500.2500, L100.0500 #### [facility] [address] [place], [address] RBC (Bld) [#/Vol] 4.46 10*6/uL Normal 4.2-5.4 [facility] Comment on above: Order Comment: 546.1 Performed By: #### L 500.2500, L100.0500 #### [facility] [address] [place], [address] RDW SD 52.3 fl High 35.1-43.9 [facility] Comment on above: Order Comment: 546.1 Performed By: #### L 500.2500, L100.0500 #### [facility] [address] [place], [address] WBC (Bld) [#/Vol] 9.6 10*3/uL Normal 4.4-11.0 [facility] Comment on above: Order Comment: 546.1 Performed By: #### L 500.2500, L100.0500 #### [facility] [address] [place], [address] Comprehensive Metabolic Prof ilon 02-24-2025 Albumin [Mass/Vol] 3.7 g/dL Normal 3.4-4.8 [facility] Comment on above: Order Comment: 546.1 Performed By: #### L 500.2500, L100.0500 #### [facility] [address] [place], [address] Albumin/Globulin [Mass ratio] 1.7 {ratio} Normal 0.9-2.4 [facility] Comment on above: Order Comment: 546.1 Performed By: #### L 500.2500, L100.0500 #### [facility] [address] [place], [address] ALK PHOS 38 U/L Normal 35-104 [facility] Comment on above: Order Comment: 546.1 Performed By: #### L 500.2500, L100.0500 #### [facility] [address] [place], [address] ALT [Catalytic activity/Vol] 27 U/L Normal <=34 [facility] Comment on above: Order Comment: 546.1 Performed By: #### L 500.2500, L100.0500 #### [facility] [address] [place], [address] AST [Catalytic activity/Vol] 35 U/L High <=31 [facility] Comment on above: Order Comment: 546.1 Performed By: #### L 500.2500, L100.0500 #### [facility] [address] [place], [address] Bilirubin [Mass/Vol] 0.65 mg/dL Normal 0.00-1.30 [facility] Comment on above: Order Comment: 546.1 Performed By: #### L 500.2500, L100.0500 #### [facility] [address] [place], [address] BUN/CRE 30.1 RATIO High 10-20 [facility] Comment on above: Order Comment: 546.1 Performed By: #### L 500.2500, L100.0500 #### [facility] [address] [place], [address] Calcium [Mass/Vol] 9.2 mg/dL Normal 7.6-11.0 [facility] Comment on above: Order Comment: 546.1 Performed By: #### L 500.2500, L100.0500 #### [facility] [address] [place], [address] Chloride [Moles/Vol] 103 mmol/L Normal 98-108 [facility] Comment on above: Order Comment: 546.1 Performed By: #### L 500.2500, L100.0500 #### [facility] [address] [place], [address] CO2 [Moles/Vol] 25.1 mmol/L Normal 21.0-32.0 [facility] Comment on above: Order Comment: 546.1 Performed By: #### L 500.2500, L100.0500 #### [facility] [address] [place], [address] Creatinine [Mass/Vol] 0.92 mg/dL Normal 0.70-1.20 [facility] Comment on above: Order Comment: 546.1 Performed By: #### L 500.2500, L100.0500 #### [facility] [address] [place], [address] GAP 9 Normal 5-15 [facility] Comment on above: Order Comment: 546.1 Performed By: #### L 500.2500, L100.0500 #### [facility] [address] [place], [address] GFR/1.73 sq M.predicted among non-blacks MDRD (S/P/Bld) [Vol rate/Area] 60 mL/min/{1.73_m2} Normal >60 [facility] Comment on above: Order Comment: 546.1 Result Comment: mL/m in/1.73m2 CKD-EPI Creatinine Equation (2020) Performed By: #### L 500.2500, L100.0500 #### [facility] [address] [place], [address] Globulin (S) [Mass/Vol] 2.1 g/dL Low 2.2-4.2 [facility] Comment on above: Order Comment: 546.1 Performed By: #### L 500.2500, L100.0500 #### [facility] [address] [place], [address] Glucose [Mass/Vol] 85 mg/dL Normal 70-99 [facility] Comment on above: Order Comment: 546.1 Performed By: #### L 500.2500, L100.0500 #### [facility] [address] [place], [address] Potassium [Moles/Vol] 4.6 mmol/L Normal 3.3-5.1 [facility] Comment on above: Order Comment: 546.1 Performed By: #### L 500.2500, L100.0500 #### [facility] [address] [place], [address] Sodium [Moles/Vol] 136 mmol/L Normal 133-145 [facility] Comment on above: Order Comment: 546.1 Performed By: #### L 500.2500, L100.0500 #### [facility] [address] [place], [address] T PROT 5.8 g/dL Low 5.9-8.4 [facility] Comment on above: Order Comment: 546.1 Performed By: #### L 500.2500, L100.0500 #### [facility] [address] [place], [address] Urea nitrogen [Mass/Vol] 28 mg/dL High 4-19 [facility] Comment on above: Order Comment: 546.1 Performed By: #### L 500.2500, L100.0500 #### [facility] [address] [place], [address] Thyroid Stim Hormone (TSH)on 02-24-2025 TSH 0.273 uIU/mL Low 0.300-4.200 [facility] Comment on above: Order Comment: 546.1 Performed By: #### L 500.2500, L100.0500 #### [facility] [address] [place], [address] Urinalysis, Completeon 02-24 BACTERIA 3+ /hpf Normal None Seen [facility] Comment on above: Order Comment: 546.1 Performed By: #### L 500.2500, L100.0500 #### [facility] [address] [place], [address] EPI,SQUAMOUS 0-5 SEEN Normal 5-10 [facility] Comment on above: Order Comment: 546.1 Performed By: #### L 500.2500, L100.0500 #### [facility] [address] [place], [address] WBC 10-25 SEEN Normal 0-5 [facility] Comment on above: Order Comment: 546.1 Performed By: #### L 500.2500, L100.0500 #### [facility] [address] [place], [address] Mucus Ql (Urine sed) 0 SEEN Normal [facility] Comment on above: Order Comment: 546.1 Performed By: #### L 500.2500, L100.0500 #### [facility] [address] [place], [address] RBC 0 SEEN Normal 0-5 [facility] Comment on above: Order Comment: 546.1 Performed By: #### L 500.2500, L100.0500 #### [facility] [address] [place], [address] Vitamin B12on 02-24-2025 Cobalamin (Vitamin B12) [Mass/Vol] 812 pg/mL Normal 180-914 [facility] Comment on above: Order Comment: 546.1 Performed By: #### L 500.2500, L100.0500 #### [facility] [address] [place], [address] CBC-Complete Blood Cnt No Di ffon 02-19-2025 Erythrocyte distribution width (RBC) [Ratio] 15.8 % High 11.6-14.6 [facility] Comment on above: Order Comment: 546.1 Performed By: #### L 500.2500, L100.0500 #### [facility] [address] [place], [address] Hematocrit (Bld) [Volume fraction] 37.2 % Normal 37-47 [facility] Comment on above: Order Comment: 546.1 Performed By: #### L 500.2500, L100.0500 #### [facility] [address] [place], [address] Hemoglobin (Bld) [Mass/Vol] 12.5 g/dL Normal 12.0-15.0 [facility] Comment on above: Order Comment: 546.1 Performed By: #### L 500.2500, L100.0500 #### [facility] [address] [place], [address] MCH (RBC) [Entitic mass] 29.2 pg Normal 27.0-32.0 [facility] Comment on above: Order Comment: 546.1 Performed By: #### L 500.2500, L100.0500 #### [facility] [address] [place], [address] MCHC (RBC) [Mass/Vol] 33.6 g/dL Normal 32-36 [facility] Comment on above: Order Comment: 546.1 Performed By: #### L 500.2500, L100.0500 #### [facility] [address] [place], [address] MCV (RBC) [Entitic vol] 86.9 fL Normal 81-99 [facility] Comment on above: Order Comment: 546.1 Performed By: #### L 500.2500, L100.0500 #### [facility] [address] [place], [address] Platelet mean volume (Bld) [Entitic vol] 10.8 fL Normal 6.2-12.0 [facility] Comment on above: Order Comment: 546.1 Performed By: #### L 500.2500, L100.0500 #### [facility] [address] [place], [address] Platelets (Bld) [#/Vol] 346 10*3/uL Normal 150-450 [facility] Comment on above: Order Comment: 546.1 Performed By: #### L 500.2500, L100.0500 #### [facility] [address] [place], [address] RBC (Bld) [#/Vol] 4.28 10*6/uL Normal 4.2-5.4 [facility] Comment on above: Order Comment: 546.1 Performed By: #### L 500.2500, L100.0500 #### [facility] [address] [place], [address] RDW SD 49.9 fl High 35.1-43.9 [facility] Comment on above: Order Comment: 546.1 Performed By: #### L 500.2500, L100.0500 #### [facility] [address] [place], [address] WBC (Bld) [#/Vol] 9.0 10*3/uL Normal 4.4-11.0 [facility] Comment on above: Order Comment: 546.1 Performed By: #### L 500.2500, L100.0500 #### [facility] [address] [place], [address] CNPNon 02-19-2025 [facility] Telephone ([facility]) NA GOOD ([id number]) 1935 F Date Time Provider Department 02/19/25 JOVANI COCHRAN CCHFMR During your visit today, we recorded the following information about you: Jovani Cochran APRN.VERONICA 02/19/2025 11:19 AM Signed Rec'd call from [facility] home regarding recent weight gain for [...] Date Reviewed: 02/04/2025 Reviewed by: Jovani Cochran APRN.FELT CEMENTER - Fully Assessed Prescriptions as of 02/19/2025 [...] Status:Closed by JOVANI COCHRAN on 02/19/25 Normal [facility] Comprehensive Metabolic Prof jalen 02-19-2025 Albumin [Mass/Vol] 3.3 g/dL Low 3.4-4.8 [facility] Comment on above: Order Comment: 546.1 Performed By: #### L 500.2500, L100.0500 #### [facility] [address] [place], [address] Albumin/Globulin [Mass ratio] 1.7 {ratio} Normal 0.9-2.4 [facility] Comment on above: Order Comment: 546.1 Performed By: #### L 500.2500, L100.0500 #### [facility] [address] [place], [address] ALK PHOS 36 U/L Normal 35-104 [facility] Comment on above: Order Comment: 546.1 Performed By: #### L 500.2500, L100.0500 #### [facility] [address] [place], [address] ALT [Catalytic activity/Vol] 22 U/L Normal <=34 [facility] Comment on above: Order Comment: 546.1 Performed By: #### L 500.2500, L100.0500 #### [facility] [address] [place], [address] AST [Catalytic activity/Vol] 31 U/L Normal <=31 [facility] Comment on above: Order Comment: 546.1 Performed By: #### L 500.2500, L100.0500 #### [facility] [address] [place], [address] Bilirubin [Mass/Vol] 0.56 mg/dL Normal 0.00-1.30 [facility] Comment on above: Order Comment: 546.1 Performed By: #### L 500.2500, L100.0500 #### [facility] [address] [place], [address] BUN/CRE 22.5 RATIO High 10-20 [facility] Comment on above: Order Comment: 546.1 Performed By: #### L 500.2500, L100.0500 #### [facility] [address] [place], [address] Calcium [Mass/Vol] 8.4 mg/dL Normal 7.6-11.0 [facility] Comment on above: Order Comment: 546.1 Performed By: #### L 500.2500, L100.0500 #### [facility] [address] [place], [address] Chloride [Moles/Vol] 101 mmol/L Normal 98-108 [facility] Comment on above: Order Comment: 546.1 Performed By: #### L 500.2500, L100.0500 #### [facility] [address] [place], [address] CO2 [Moles/Vol] 24.4 mmol/L Normal 21.0-32.0 [facility] Comment on above: Order Comment: 546.1 Performed By: #### L 500.2500, L100.0500 #### [facility] [address] [place], [address] Creatinine [Mass/Vol] 0.93 mg/dL Normal 0.70-1.20 [facility] Comment on above: Order Comment: 546.1 Performed By: #### L 500.2500, L100.0500 #### [facility] [address] [place], [address] GAP 10 Normal 5-15 [facility] Comment on above: Order Comment: 546.1 Performed By: #### L 500.2500, L100.0500 #### [facility] [address] [place], [address] GFR/1.73 sq M.predicted among non-blacks MDRD (S/P/Bld) [Vol rate/Area] 59 mL/min/{1.73_m2} Low >60 [facility] Comment on above: Order Comment: 546.1 Result Comment: mL/m in/1.73m2 CKD-EPI Creatinine Equation (2020) Performed By: #### L 500.2500, L100.0500 #### [facility] [address] [place], [address] Globulin (S) [Mass/Vol] 2.0 g/dL Low 2.2-4.2 [facility] Comment on above: Order Comment: 546.1 Performed By: #### L 500.2500, L100.0500 #### [facility] [address] [place], [address] Glucose [Mass/Vol] 66 mg/dL Low 70-99 [facility] Comment on above: Order Comment: 546.1 Performed By: #### L 500.2500, L100.0500 #### [facility] [address] [place], [address] Potassium [Moles/Vol] 4.1 mmol/L Normal 3.3-5.1 [facility] Comment on above: Order Comment: 546.1 Performed By: #### L 500.2500, L100.0500 #### [facility] [address] [place], [address] Sodium [Moles/Vol] 135 mmol/L Normal 133-145 [facility] Comment on above: Order Comment: 546.1 Performed By: #### L 500.2500, L100.0500 #### [facility] [address] [place], [address] T PROT 5.3 g/dL Low 5.9-8.4 [facility] Comment on above: Order Comment: 546.1 Performed By: #### L 500.2500, L100.0500 #### [facility] [address] [place], [address] Urea nitrogen [Mass/Vol] 21 mg/dL High 4-19 [facility] Comment on above: Order Comment: 546.1 Performed By: #### L 500.2500, L100.0500 #### [facility] [address] [place], [address] CNOVon 02-04-2025 CNOV Office Visit ([facility] ) NA GOOD ([id number]) 1935 F Date Time Provider Department 02/04/25 10:00 AM JOVANI COCHRAN [facility] During your visit today, we recorded the following information about you: Pulse Blood pressure Weight 89/minute 132/79 53.6 kg Jovani Cochran APRN.CNP 02/04/2025 1:00 PM Signed Heart and Vascular Dexter [facility] OUTPATIENT VISIT DATE February [...] 0 No curre (more content not included)... [facility] CNCOon 01-29-2025 CNCO Letter Text [facility] CNDSon 01-29-2025 CNDS HNO ID: [id number] Author: JULIO CESAR ALVAREZ MD Service: Hospital [...] HFrEF (heart failure with reduced ejection fraction) ([facility]) Unknown Difficulty sleeping Unknown Shortness of [...] During patient's hospitalization called patient's power of pedigree tracer and explained hospital course and need for follow up. Patient's hospital course and need for follow-up were explained to patient as well who is in understanding. Patient will need follow-up with primary care physician and cardiology soon after discharge from hospital. OPERATIONS/PROCEDURE DURING THIS HOSPITALIZATION: * No surgery found * CONSULTS DURING HOSPITALIZATION: Treatment Team: Primary Service: 3, [facility] PATIENT CONDITION AT DISCHARGE: Stable DISCHARGE [...] Center 02/04/2025 10:00 AM Jovani Cochran APRN.CNP [facility] 02/25/2025 1:30 PM Lidia Armenta APRN.VERONICA [facility] Discharge Information Row Name ED to Hosp-Admission (Discharged) from 01/27/2025 in [facility] Follow-Up Appointment Provider Name PCP: Alexey Espino DO - Other Follow-Up Type [facility]: [facility] - ALLERGIES Allergen Reactions Cortisone [...] Generic drug: spironola (more content not included)... [facility] NURSING PROGon 01-29-2025 NURSING PROG HNO ID: [id number] Author: RAULITO CHAVEZ, RN Service: Nursing Author Type: Registered Nurse Type: Nursing Progress Note Filed: 01/29/2025 15:28 Note Text: PATIENT EDUCATION HEART FAILURE PATIENT NAME: Na Good PATIENT LOCATION: [place] [address] [address] SURVIVAL SKILLS: Low Sodium Diet Weight Monitoring and Dry Weight Importance of Follow Up after Discharge Fluid Restriction, if applicable Heart Failure Medications Symptom Management related to heart failure Activity / Physical Exercise Recommendations Smoking cessation counseling if applicable When Patient Should Call Provider Pt w/ [place], and poor vision; communication is difficult. She is unsure why she is here and wants to go home. Pt last seen by this department 12/24/24. I met w/ pt's son at that time. All children are of [facility]. Survival Skills were discussed w/ son. Son stated DRY weight b/t 122-125lb, pt weighted 122lb.@ that time. Today's weight is 125lb. Electronically Signed By: Raulito Chavez [facility] Basic metabolic 2000 panelon 01-28-2025 Anion gap [Moles/Vol] 11 mmol/L Normal 8-15 [facility] Comment on above: Order Comment: Vita florez Type: BLOOD SPECIMEN Ordering Facility: [facility] Address: [address] [place] [address] Performed By: #### 2 4321-2 #### [facility] CLIA [id number] [address] [place] [address] [place] Calcium [Mass/Vol] 8.9 mg/dL Normal 8.5-10.2 [facility] Comment on above: Order Comment: Vita florez Type: BLOOD SPECIMEN Ordering Facility: [facility] Address: [address] [place] [address] Performed By: #### 2 4321-2 #### [facility] CLIA [id number] [address] [place] [address] [place] Chloride [Moles/Vol] 103 mmol/L Normal 98-107 [facility] Comment on above: Order Comment: Speci men Type: BLOOD SPECIMEN Ordering Facility: [facility] Address: [address] [place] [address] Performed By: #### 2 4321-2 #### [facility] CLIA [id number] [address] [place] [address] [place] CO2 [Moles/Vol] 27 mmol/L Normal 22-30 [facility] Comment on above: Order Comment: Speci men Type: BLOOD SPECIMEN Ordering Facility: [facility] Address: [address] [place] [address] Performed By: #### 2 4321-2 #### [facility] CLIA [id number] [address] [place] [address] [place] Creatinine [Mass/Vol] 0.99 mg/dL High 0.58-0.96 [facility] Comment on above: Order Comment: Speci men Type: BLOOD SPECIMEN Ordering Facility: [facility] Address: [address] [place] [address] Performed By: #### 2 4321-2 #### [facility] CLIA [id number] [address] [place] eGFRcr SerPlBld CKD-EPI 2020 55 mL/min/1.73m??? Low >=60 [facility] Comment on above: Order Comment: Speci men Type: BLOOD SPECIMEN Ordering Facility: [facility] Address: [address] [place] [address] Result Comment: Radha mated Glomerular Filtration Rate [...] GFR. Performed By: #### 2 4321-2 #### [facility] CLIA [id number] [address] [place] Glucose [Mass/Vol] 83 mg/dL Normal 74-99 [facility] Comment on above: Order Comment: Speci men Type: BLOOD SPECIMEN Ordering Facility: [facility] Address: [address] [place] [address] Result Comment: The [place] [employer] (ADA) provides guidance for cutoff [...] Standards of Medical Care in Diabetes 2016, [place] [employer]. Diabetes Care. 2016.39(Suppl 1). Performed By: #### 2 4321-2 #### [facility] CLIA [id number] [address] [place] [address] [place] Potassium [Moles/Vol] 4.0 mmol/L Normal 3.7-5.1 [facility] Comment on above: Order Comment: Vita florez Type: BLOOD SPECIMEN Ordering Facility: [facility] [place] Address: [address] [place] [address] Performed By: #### 2 4321-2 #### [facility] CLIA [id number] [address] [place] [address] [place] Sodium [Moles/Vol] 141 mmol/L Normal 136-144 [facility] Comment on above: Order Comment: Vita florez Type: BLOOD SPECIMEN Ordering Facility: [facility] [place] Address: [address] [id number] Performed By: #### 2 4321-2 #### [facility] CLIA [id number] [address] [place] [address] [place] Urea nitrogen [Mass/Vol] 25 mg/dL High 7-21 [facility] Comment on above: Order Comment: Vita florez Type: BLOOD SPECIMEN Ordering Facility: [facility] [place] Address: [address] [address] Performed By: #### 2 4321-2 #### [facility] CLIA [id number] [address] CBC panel Auto (Bld)on 01-28 Erythrocyte distribution width (RBC) [Ratio] 15.8 % High 11.5-15.0 [facility] Comment on above: Order Comment: Speci men Type: BLOOD SPECIMENOrdering Facility: [facility] [place] Address: [address] [place] [address] Performed By: #### 5 8410-2 ####[facility]ORYCLIA [id number] [address] Hematocrit (Bld) [Volume fraction] 41.1 % Normal 36.0-46.0 [facility] Comment on above: Order Comment: Speci men Type: BLOOD SPECIMENOrdering Facility: [facility] [place] Address: [address] [place] [address] Performed By: #### 5 8410-2 ####[facility]IA [id number] [address] Hemoglobin (Bld) [Mass/Vol] 13.7 g/dL Normal 11.5-15.5 [facility] Comment on above: Order Comment: Speci men Type: BLOOD SPECIMENOrdering Facility: [facility] [place] Address: [address] [place] [address] Performed By: #### 5 8410-2 ####[facility]ORYCLIA [id number] [address] MCH (RBC) [Entitic mass] 29.6 pg Normal 26.0-34.0 [facility] Comment on above: Order Comment: Speci men Type: BLOOD SPECIMENOrdering Facility: [facility] [place] Address: [address] [place] [address] Performed By: #### 5 8410-2 ####[facility]IA [id number] [address] MCHC (RBC) [Mass/Vol] 33.3 g/dL Normal 30.5-36.0 [facility] Comment on above: Order Comment: Speci men Type: BLOOD SPECIMENOrdering Facility: [facility] [place] Address: [address] [place] [address] Performed By: #### 5 8410-2 ####[facility]ORYCLIA [id number] [address] MCV (RBC) [Entitic vol] 88.8 fL Normal 80.0-100.0 [facility] Comment on above: Order Comment: Speci men Type: BLOOD SPECIMENOrdering Facility: [facility] [place] Address: [address] [place] [address] Performed By: #### 5 8410-2 ####[facility]ORYCLIA [id number] [address] [place] Nucleated RBC (Bld) [#/Vol] 10*3/uL Normal <0.01 [facility] Comment on above: Order Comment: Speci men Type: BLOOD SPECIMENOrdering Facility: [facility] [place] Address: [address] [place] [address] Performed By: #### 5 8410-2 ####[facility]ORYCLIA [id number] [address] Platelet mean volume (Bld) [Entitic vol] 10.9 fL Normal 9.0-12.7 [facility] Comment on above: Order Comment: Speci men Type: BLOOD SPECIMENOrdering Facility: [facility] [place] Address: [address] [place] [address] Performed By: #### 5 8410-2 ####[facility]ORYCLIA [id number] [address] Platelets (Bld) [#/Vol] 330 10*3/uL Normal 150-400 [facility] Comment on above: Order Comment: Speci men Type: BLOOD SPECIMENOrdering Facility: [facility] [place] Address: [address] [place] [address] Performed By: #### 5 8410-2 ####[facility]ORYCLIA [id number] [address] [place] RBC (Bld) [#/Vol] 4.63 10*6/uL Normal 3.90-5.20 [facility] Comment on above: Order Comment: Speci men Type: BLOOD SPECIMENOrdering Facility: [facility] [place] Address: [address] [place] [address] Performed By: #### 5 8410-2 ####[facility]ORYCLIA [id number] [address] [id number] [facility] WBC (Bld) [#/Vol] 9.52 10*3/uL Normal 3.70-11.00 [facility] Comment on above: Order Comment: Speci men Type: BLOOD SPECIMENOrdering Facility: [facility] [place] Address: [address] [facility] [address] [id number] Performed By: #### 5 8410-2 ####[facility]IA [id number] [address] [id number] [facility] CONSULTon 01-28-2025 CONSULT HNO ID: [id number] Author: AMY MARTINEZ MD Service: Cardiovascular Disease Author Type: Physician Type: Consults Filed: 01/28/2025 15:18 Note Text: [facility] CARDI[facility]ASCULAR MEDICINE CONSULT NOTE (Template ID [id number]) Na Good [id number] PRIMARY SERVICE: Internal Medicine CONSULTING SERVICE: Cardiovascular [...] (more content not included)... Normal [facility] THERAPY NT 01-28-2025 THERAPY NT HNO ID: [id number] Author: LOI HEWITT PT Service: Physical Therapy Author Type: Physical Therapist Type: Therapy (PT/OT/Speech/Resp) Filed: 01/28/2025 16:05 Note Text: Summary: PT evaluation Physical Therapy Evaluation Summary SERVICE DATE: 01/28/2025 SERVICE TIME: 1510 to 1528 ROOM: [id number] PT 6 Clicks Score: 20 DISCHARGE RECOMMENDATIONS [...] on feet TREATMENT INTERVENTIONS Evaluation, Therapeutic Activity (91085), Gait Training (17845) Timed Code Treatment (minutes): 3 Skilled Treatment Time (minutes): 18 $ Evaluation-Low (24674) Billed Units: 1 unit Therapeutic Activity (33641) Treatment Minutes: 2 $ Therapeutic Activity (43119) Billed Units: 0 units Gait Training (36326) Treatment Minutes: 1 $ Gait Training (49114) Billed Units: 0 units TRAINING AND EDUCATION [...] posture and with (more content not included)... [facility] THERAPY NT HNO ID: [id number] Author: CAROLE HUGHES, OT/L Service: Occupational Therapy Author Type: Occupational Therapist Type: Therapy (PT/OT/Speech/Resp) Filed: 01/28/2025 14:56 Note Text: Summary: OT Evaluation Occupational Therapy Evaluation Summary SERVICE DATE: 01/28/2025 SERVICE TIME: 1418 to 1446 ROOM: [place] [address] OT 6 Clicks Score: 19 DISCHARGE RECOMMENDATIONS [...] ADLs and functional mobility/transfers, pt is very [place], follows commands appropriately, denies SOB during mobility, [...] Muscle Weakness (generalized) TREATMENT INTERVENTIONS Evaluation, Self Jail Management (32781) Timed Code Treatment (minutes): 13 Skilled Treatment Time (minutes): 28 TRAINING AND EDUCATION PROVIDED Activity Adaptation/Product Safety Manager y Strategies, Adaptive Equipment/DME, Bed Mobility, Benefits of In-Hospital Mobility, Cognitive Skills, Command Following, Discharge Planning, Expected Functional Level, Functional Mobility Involving ADLs, Insight into Deficits, Lower Extremity Dressing, Memory/Attention, Orientation, Positioning, Role of Occupational Therapy, Safety/Judgment, Sitting Balance to Improve Flora with ADLs/Self-Care, Standing Balance to Improve Flora with ADLs/Self-Care, Transfer - Sit to Stand [...] and/or physical assistance. (more content not included)... [facility] ALLIED HEALTHon 01-27-2025 ALLIED HEALTH HNO ID: [id number] Author: CECILE BAIRES CT Service: Radiology Author [...] PATIENT PRESENTS WITH AN IMPLANTABLE OR ATTACHED PLAYGROUND DIRECTOR: No RADIOLOGY DEPARTMENT: General X-ray: Exam(s) Completed: Chest X-Ray PERIPHERAL IV DATA: Not applicable SIGNED BY: LAUREL Brooks January 27, 2025 1:24 PM [facility] Bacteria Ur Culton Bacteria identified Cx Nom (U) CULTURE, URINE: Normal urogenital tiffanie: ORGANISM ID: 1 >=100,000 CFU/ml Staphylococcus epidermidis No further workup. [facility] Comment on above: Performed By: #### 2 4356-8 ####[facility]ORYCLIA [id number] [place], [place] [address] [place] [address] [place]#### 630-4 ####[facility]CL[facility] [id number] [address] [place] CBC W Auto Differential pane l (Bld)on 01-27-2025 Basophils (Bld) [#/Vol] 0.09 10*3/uL Normal <0.11 [facility] Comment on above: Order Comment: Speci men Type: BLOOD SPECIMENOrdering Facility: [facility] [place] Address: [address] [place] [address] Performed By: #### 5 7021-8 ####[facility]CLIA [id number] [address] [place] [facility] Basophils/100 WBC (Bld) 0.9 % Normal [facility] Comment on above: Order Comment: Speci men Type: BLOOD SPECIMENOrdering Facility: [facility] [place] Address: [address] [place] [address] Performed By: #### 5 7021-8 ####[facility]ORYCLIA [id number] [place] [address] [place] Differential cell count method Nom (Bld) Auto Normal [facility] Comment on above: Order Comment: Speci men Type: BLOOD SPECIMENOrdering Facility: [facility] [place] Address: [address] [place] [address] Performed By: #### 5 7021-8 ####[facility]ORYCLIA [id number] [place] [address] [place] Eosinophils (Bld) [#/Vol] 0.06 10*3/uL Normal <0.46 [facility] Comment on above: Order Comment: Speci men Type: BLOOD SPECIMENOrdering Facility: [facility] [place] Address: [address] [place] [address] Performed By: #### 5 7021-8 ####[facility]ORYCLIA [id number] [address] Eosinophils/100 WBC (Bld) 0.6 % Normal [facility] Comment on above: Order Comment: Speci men Type: BLOOD SPECIMENOrdering Facility: [facility] [place] Address: [address] [place] [address] Performed By: #### 5 7021-8 ####[facility]CLIA [id number] [address] [place] Erythrocyte distribution width (RBC) [Ratio] 15.9 % High 11.5-15.0 [facility] Comment on above: Order Comment: Speci men Type: BLOOD SPECIMENOrdering Facility: [facility] [place] Address: [address] [place] [address] Performed By: #### 5 7021-8 ####[facility]ORYCLIA [id number] [place] [address] [place] Hematocrit (Bld) [Volume fraction] 45.1 % Normal 36.0-46.0 [facility] Comment on above: Order Comment: Speci men Type: BLOOD SPECIMENOrdering Facility: [facility] [place] Address: [address] [place] [address] Performed By: #### 5 7021-8 ####[facility]IA [id number] [place] [address] [place] Hemoglobin (Bld) [Mass/Vol] 14.5 g/dL Normal 11.5-15.5 [facility] Comment on above: Order Comment: Speci men Type: BLOOD SPECIMENOrdering Facility: [facility] [place] Address: [address] [place] [address] Performed By: #### 5 7021-8 ####[facility]CLIA [id number] [place] [address] [place] Immature granulocytes (Bld) [#/Vol] 0.04 10*3/uL Normal <0.10 [facility] Comment on above: Order Comment: Speci men Type: BLOOD SPECIMENOrdering Facility: [facility] [place] Address: [address] [place] [address] Performed By: #### 5 7021-8 ####[facility]ORYCLIA [id number] [place] [address] [place] Immature granulocytes/100 WBC (Bld) 0.4 % Normal [facility] Comment on above: Order Comment: Speci men Type: BLOOD SPECIMENOrdering Facility: [facility] [place] Address: [address] [place] [address] Performed By: #### 5 7021-8 ####[facility]ORYCLIA [id number] [place] [address] [place] Lymphocytes (Bld) [#/Vol] 1.30 10*3/uL Normal 1.00-4.00 [facility] Comment on above: Order Comment: Speci men Type: BLOOD SPECIMENOrdering Facility: [facility] [place] Address: [address] [place] [address] Performed By: #### 5 7021-8 ####[facility]IA [id number] [address] Lymphocytes/100 WBC (Bld) 12.3 % Normal [facility] Comment on above: Order Comment: Speci men Type: BLOOD SPECIMENOrdering Facility: [facility] [place] Address: [address] [place] [address] Performed By: #### 5 7021-8 ####[facility]CLIA [id number] [address] [place] MCH (RBC) [Entitic mass] 29.2 pg Normal 26.0-34.0 [facility] Comment on above: Order Comment: Speci men Type: BLOOD SPECIMENOrdering Facility: [facility] [place] Address: [address] [place] [address] Performed By: #### 5 7021-8 ####[facility]CLIA [id number] [address] [place] MCHC (RBC) [Mass/Vol] 32.2 g/dL Normal 30.5-36.0 [facility] Comment on above: Order Comment: Speci men Type: BLOOD SPECIMENOrdering Facility: [facility] [place] Address: [address] [place] [address] Performed By: #### 5 7021-8 ####[facility]ORYCLIA [id number] [address] MCV (RBC) [Entitic vol] 90.7 fL Normal 80.0-100.0 [facility] Comment on above: Order Comment: Speci men Type: BLOOD SPECIMENOrdering Facility: [facility] [place] Address: [address] [place] [address] Performed By: #### 5 7021-8 ####[facility]CLIA [id number] [address] Monocytes (Bld) [#/Vol] 0.78 10*3/uL Normal <0.87 [facility] Comment on above: Order Comment: Speci men Type: BLOOD SPECIMENOrdering Facility: [facility] [place] Address: [address] [place] [address] Performed By: #### 5 7021-8 ####[facility]ORYCLIA [id number] [address] [place] Monocytes/100 WBC (Bld) 7.4 % Normal [facility] Comment on above: Order Comment: Speci men Type: BLOOD SPECIMENOrdering Facility: [facility] [place] Address: [address] [place] [address] Performed By: #### 5 7021-8 ####[facility]ORYCLIA [id number] [place] [address] [place] Neutrophils (Bld) [#/Vol] 8.30 10*3/uL High 1.45-7.50 [facility] Comment on above: Order Comment: Speci men Type: BLOOD SPECIMENOrdering Facility: [facility] [place] Address: [address] [place] [address] Performed By: #### 5 7021-8 ####[facility]ORYCLIA [id number] [place] [address] [place] Neutrophils/100 WBC (Bld) 78.4 % Normal [facility] Comment on above: Order Comment: Speci men Type: BLOOD SPECIMENOrdering Facility: [facility] [place] Address: [address] [place] [address] Performed By: #### 5 7021-8 ####[facility]ORYCLIA [id number] [place] [address] [place] Nucleated RBC (Bld) [#/Vol] 10*3/uL Normal <0.01 [facility] Comment on above: Order Comment: Speci men Type: BLOOD SPECIMENOrdering Facility: [facility] [place] Address: [address] [place] [address] Performed By: #### 5 7021-8 ####[facility]ORYCLIA [id number] [place] [address] [place] Nucleated RBC/100 WBC (Bld) [Ratio] 0.0 /100 WBC Normal [facility] Comment on above: Order Comment: Speci men Type: BLOOD SPECIMENOrdering Facility: [facility] [place] Address: [facility] [place] [address] Performed By: #### 5 7021-8 ####[facility]ORYCLIA [id number] [address] Platelet mean volume (Bld) [Entitic vol] 10.9 fL Normal 9.0-12.7 [facility] Comment on above: Order Comment: Speci men Type: BLOOD SPECIMENOrdering Facility: [facility] [place] Address: [address] [place] [address] Performed By: #### 5 7021-8 ####[facility]ORYCLIA [id number] [address] [place] Platelets (Bld) [#/Vol] 389 10*3/uL Normal 150-400 [facility] Comment on above: Order Comment: Speci men Type: BLOOD SPECIMENOrdering Facility: [facility] [place] Address: [address] [place] [address] Performed By: #### 5 7021-8 ####[facility]ORYCLIA [id number] [place] [address] [place] RBC (Bld) [#/Vol] 4.97 10*6/uL Normal 3.90-5.20 [facility] Comment on above: Order Comment: Speci men Type: BLOOD SPECIMENOrdering Facility: [facility] [place] Address: [address] [place] [address] Performed By: #### 5 7021-8 ####[facility]ORYCLIA [id number] [address] [place] WBC (Bld) [#/Vol] 10.57 10*3/uL Normal 3.70-11.00 [facility] Comment on above: Order Comment: Speci men Type: BLOOD SPECIMENOrdering Facility: [facility] [place] Address: [address] [place] [address] Performed By: #### 5 7021-8 ####[facility]ORYCLIA [id number] [address] Comprehensive metabolic 2000 panelon 01-27-2025 Albumin [Mass/Vol] 4.3 g/dL Normal 3.9-4.9 [facility] Comment on above: Order Comment: Speci men Type: BLOOD SPECIMENOrdering Facility: [facility] [place] Address: [address] [place] [place] [address] Performed By: #### 1 9123-9, [id number], 80128-4, 25986-7 ####[facility]ORYCLIA [id number] [place] [address] [place] ALP [Catalytic activity/Vol] 52 U/L Normal 34-123 [facility] Comment on above: Order Comment: Speci men Type: BLOOD SPECIMENOrdering Facility: [facility] [place] Address: [facility] [address] [place] [address] Performed By: #### 1 9123-9, [id number], 85782-7, 40712-2 ####[facility]ORYCLIA [id number] [address] ALT [Catalytic activity/Vol] 30 U/L Normal 7-38 [facility] Comment on above: Order Comment: Speci men Type: BLOOD SPECIMENOrdering Facility: [facility] [place] Address: [address] [place] [address] Performed By: #### 1 9123-9, [id number], 54926-8, 16285-3 ####[facility]ORYCLIA [id number] [address] Anion gap [Moles/Vol] 13 mmol/L Normal 8-15 [facility] Comment on above: Order Comment: Speci men Type: BLOOD SPECIMENOrdering Facility: [facility] [place] Address: [address] [place] [place] [address] Performed By: #### 1 9123-9, [id number], 68823-2, 70765-3 ####[facility]ORYCLIA [id number] [address] [place] [facility] AST [Catalytic activity/Vol] 41 U/L High 13-35 [facility] Comment on above: Order Comment: Speci men Type: BLOOD SPECIMENOrdering Facility: [facility] [place] Address: [address] [place] [address] Performed By: #### 1 9123-9, [id number], 68863-6, 78137-8 ####[facility]ATORYCLIA [id number] [place] [address] [place] Bilirubin [Mass/Vol] 0.7 mg/dL Normal 0.2-1.3 [facility] Comment on above: Order Comment: Speci men Type: BLOOD SPECIMENOrdering Facility: [facility] [place] Address: [facility] [place] [address] Performed By: #### 1 9123-9, [id number], 80608-9, 59936-3 ####[facility]ATORYCLIA [id number] [place] [address] [place] Calcium [Mass/Vol] 9.5 mg/dL Normal 8.5-10.2 [facility] Comment on above: Order Comment: Speci men Type: BLOOD SPECIMENOrdering Facility: [facility] [place] Address: [facility] [address] [place] [address] Performed By: #### 1 9123-9, [id number], 81284-3, 75219-7 ####[facility]ORATORYCLIA [id number] [place] [address] [place] Chloride [Moles/Vol] 103 mmol/L Normal 98-107 [facility] Comment on above: Order Comment: Speci men Type: BLOOD SPECIMENOrdering Facility: [facility] [place] Address: [facility] [place] [place] [address] Performed By: #### 1 9123-9, [id number], 17782-1, 41535-0 ####[facility]ORATORYCLIA [id number] [place] [address] [place] CO2 [Moles/Vol] 25 mmol/L Normal 22-30 [facility] Comment on above: Order Comment: Speci men Type: BLOOD SPECIMENOrdering Facility: [facility] [place] Address: [facility] [place] [address] Performed By: #### 1 9123-9, [id number], 14647-0, 68973-3 ####[facility]ATORYCLIA [id number] [address] Creatinine [Mass/Vol] 0.91 mg/dL Normal 0.58-0.96 [facility] Comment on above: Order Comment: Vita florez Type: BLOOD SPECIMENOrdering Facility: [facility] [place] Address: [address] [place] [address] Performed By: #### 1 9123-9, UHX1909, 33753-8, 22402-0 ####[facility]ORATORYCLIA [id number] [address] [place] eGFRcr SerPlBld CKD-EPI 2020 60 mL/min/1.73m??? Normal >=60 [facility] Comment on above: Order Comment: Vita florez Type: BLOOD SPECIMENOrdering Facility: [facility] [place] Address: [address] [place] [address] Result Comment: Radha mated Glomerular Filtration Rate [...] actual GFR. Performed By: #### 1 9123-9, [id number], 82862-1, 72416-3 ####[facility] LABORATORYCLIA [id number] [address] Glucose [Mass/Vol] 98 mg/dL Normal 74-99 [facility] Comment on above: Order Comment: Vita florez Type: BLOOD SPECIMENOrdering Facility: [facility] [place] Address: [address] [place] [address] Result Comment: The [place] [employer] (ADA) provides guidance for cutoff [...] Standards of Medical Care in Diabetes 2016, [place] [employer]. Diabetes Care. 2016.39(Suppl 1). Performed By: #### 1 9123-9, QRD1969, 54148-7, 34406-0 ####[facility] LABORATORYCLIA [id number] [place] [address] [place] Potassium [Moles/Vol] 4.8 mmol/L Normal 3.7-5.1 [facility] Comment on above: Order Comment: Speci men Type: BLOOD SPECIMENOrdering Facility: [facility] [place] Address: [address] [place] [address] Performed By: #### 1 9123-9, EHM5495, 39039-2, 28808-1 ####[facility] LABORATORYCLIA [id number] [place] [address] [place] Protein [Mass/Vol] 7.1 g/dL Normal 6.3-8.0 [facility] Comment on above: Order Comment: Speci men Type: BLOOD SPECIMENOrdering Facility: [facility] [place] Address: [address] [place] [address] Performed By: #### 1 9123-9, [id number], 91442-0, 36227-2 ####[facility] LABORATORYCLIA [id number] [place] [address] [place] Sodium [Moles/Vol] 141 mmol/L Normal 136-144 [facility] Comment on above: Order Comment: Speci men Type: BLOOD SPECIMENOrdering Facility: [facility] [place] Address: [address] [place] [address] Performed By: #### 1 9123-9, [id number], 17639-5, 63675-8 ####[facility] LABORATORYCLIA [id number] [place] [address] [place] Urea nitrogen [Mass/Vol] 25 mg/dL High 7-21 [facility] Comment on above: Order Comment: Speci men Type: BLOOD SPECIMENOrdering Facility: [facility] [place] Address: [address] [place] [address] Performed By: #### 1 9123-9, [id number], 03977-1, 13988-1 ####[facility] LABORATORYCLIA [id number] [place] [address] [facility] ED NOTEon 01-27-2025 ED NOTE HNO ID: [id number] Author: MELODIE CLEARY RN Service: Nursing Author Type: Registered Nurse Type: ED Notes Filed: 01/27/2025 15:53 Note Text: This rn attempted to call Janelle dtr message left. [facility] ED NOTE HNO ID: [id number] Author: MELODIE CLEARY RN Service: Nursing Author Type: Registered Nurse Type: ED Notes Filed: 01/27/2025 15:53 Note Text: [facility] lafitte updated on Pt admission. [facility] ED NOTE HNO ID: [id number] Author: MELODIE CLEARY RN Service: Nursing Author Type: Registered Nurse Type: ED Notes Filed: 01/27/2025 15:41 Note Text: This RN attempted to call nursing @ [facility] to update on pt current condition, DX AND admission to [facility], however, unable to reach nursing @ this time. Message to call this RN back was given. [facility] ED NOTE HNO ID: [id number] Author: MELODIE CLEARY RN Service: Nursing Author Type: Registered Nurse Type: ED Notes Filed: 01/27/2025 15:09 Note Text: Pt currently on pure wick external catheter. [facility] ED NOTE HNO ID: [id number] Author: MELODIE CLEARY RN Service: Nursing Author Type: Registered Nurse Type: ED Notes Filed: 01/27/2025 15:08 Note Text: 4 S charge aware report is in for 0405-1. [facility] ED NOTE HNO ID: [id number] Author: JUANCARLOS MARTINEZ RN Service: Nursing Author Type: Registered Nurse Type: ED Notes Filed: 01/27/2025 12:38 Note Text: MD rounds. [facility] ED PROGRESS NOTE (PROVIDER)o n 01-27-2025 ED PROGRESS NOTE (PROVIDER) HNO ID: [id number] Author: ZENOBIA CUNNINGHAM MD Service: ? Author Type: Physician Type: ED PROGRESS NOTE (PROVIDER) Filed: 01/27/2025 14:51 Note Text: ED CONTINUATION OF CARE NOTE Code Status: Prior Assumed care from: Dr. Gilliland Presentation / Findings / Interventions / Plan / Items to Follow Up: 89-year-old female who presents for from [facility] in [place] with a past medical history of congestive [...] Lasix and oxygen was initiated. Discussed with [facility] medicine on-call who will admit for diuresis. ED Course as of 01/27/25 1450 Others' Documentation Tue Jan 27, 2025 1359 CBC + DIFF(!): WBC 10.57 RBC 4.97 Hemoglobin 14.5 Hematocrit 45.1 MCV 90.7 MCH 29.2 MCHC 32.2 RDW-CV 15.9(!) Platelet Count 389 MPV 10.9 Neut% 78.4 Abs Neut (ANC) 8.30(!) Lymph% 12.3 Abs Lymph 1.30 Dallam% 7.4 Abs Dallam 0.78 Eosin% 0.6 Abs Eosin 0.06 Baso% [...] pneumothorax. [KS] 1411 EKG: Heart 92, NSR. RI 156. QTc 479. No ST elevations consistent with GA. Nonspecific T wave changes. Left bundle appreciated [...] NO STEMI/Sgarbossa Confirmed by HELDER CABRERA DO ([id number]) on 01/27/2025 12:49:49 PM Medical Decision Making SIGNATURE: Zenobia Cunningham MD PATIENT NAME: Na Good DATE: January 27, 2025 TIME: 2:50 PM PAGER/CONTACT #: [facility] ED PROV NOTEon 01-27-2025 ED PROV NOTE HNO ID: [id number] Author: BEATRIS GILLILAND DO Service: Emergency Medicine Author Type: Physician Type: ED Provider Notes Filed: 01/27/2025 14:12 Note Text: ED Provider Note Patient Name: Na Good : 1935 SERVICE DATE: 01/27/25 History Patient presents with: Multiple Concerns: SHORTNESS OF BREATH THAT HAS BEEN ONGOING AND INSOMNIA; FROM [employer] [facility], 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 Normal [facility] EKGon 01-27-2025 Electrocardiogram Ventricular Rate : 9 2 BPM Atrial Rate : 92 BPM P-R Interval : 158 ms QRS Duration : 134 ms Q-T Interval : 388 ms QTC Calculation(Bazett) : 479 ms Calculated P Calera : -4 degrees Calculated R Calera : -35 degrees Calculated T Calera : 137 degrees NORMAL SINUS RHYTHM LEFT AXIS DEVIATION LEFT BUNDLE BRANCH BLOCK ABNORMAL ECG NO STEMI/Sgarbossa Confirmed by HELDER CABRERA DO ([id number]) on 01/27/2025 12:49:49 PM NAME : NA GOOD PID : [id number] : 1935 Gender : Female Race : ORD : Procedure Date : Jan 27 2025 12:28:59 Edit Date : Jan 27 2025 12:49:52 Diagnosis: NORMAL SINUS RHYTHM LEFT AXIS DEVIATION LEFT BUNDLE BRANCH BLOCK ABNORMAL ECG NO STEMI/Sgarbossa Confirmed by HELDER CABRERA DO ([id number]) on 01/27/2025 12:49:49 PM Test Reason : Location : 1 : ER ED Overread By : HELDER CABRERA DO Edited By : HLEDER CABRERA DO Referred By : , Acquired by : Edgar MARTINEZ [facility] HIGH SENSITIVITY TROPONIN T (INITIAL)on 01-27-2025 Troponin T.cardiac High sensitivity method [Mass/Vol] 32 ng/L High <12 [facility] Comment on above: Order Comment: Speci men Type: BLOOD SPECIMENOrdering Facility: [facility] [place] Address: [address] [place] [address] Performed By: #### 1 9123-9, [id number], 01636-9, 09618-6 ####[facility] LABORATORYCLIA [id number] [address] HIGH SENSITIVITY TROPONIN T (SECOND)on 01-27-2025 Troponin T.cardiac High sensitivity method [Mass/Vol] 30 ng/L High <12 [facility] Comment on above: Order Comment: Speci men Type: BLOOD SPECIMENOrdering Facility: [facility] [place] Address: [address] [place] [address] Performed By: #### L [id number] ####[facility]ORATORYCLIA [id number] [address] HIGH SENSITIVITY TROPONIN T (THIRD) 3 HRS AFTER INITIALon 01-27-2025 Troponin T.cardiac High sensitivity method [Mass/Vol] 31 ng/L High <[address] [place] [address] Comment on above: Order Comment: Speci men Type: BLOOD SPECIMENOrdering Facility: [facility] [place] Address: [address] [place] [address] Performed By: #### L [id number] ####[facility] LABORATORYCLIA [id number] [place] [id number] [facility] HISTORY PHYSICALon HISTORY PHYSICAL HNO ID: [id number] Author: ANIKA CALI MD Service: Hospital Medicine Author Type: Physician Type: H&P Filed: 01/27/2025 20:33 Note Text: HOSPITAL MEDICINE HISTORY AND PHYSICAL PCP: Johnson Watson MD, MD NIGHT AND WEEKEND COVERAGE: [facility] COVERAGE: Days: 2134-1274, please page attending physician. Nights: [phone], please page [facility] Night coverage pager [phone]. SUBJECTIVE Chief Complaint: sob HPI: 89-year-old female [...] pt/ot -case mgmt consult pt resides at [facility] [1] Social History Tobacco Use Smoking status: Never Vaping Use Vaping status: Never Used Substance Use Topics Alcohol use: Yes Comment: occasionally Drug use: Never Normal [facility] Magnesium SerPl-ncon 01-27 Magnesium [Mass/Vol] 2.5 mg/dL High 1.7-2.3 [facility] Comment on above: Order Comment: Speci men Type: BLOOD SPECIMENOrdering Facility: [facility] [place] Address: [address] [place] [address] Performed By: #### 1 9123-9, [id number], 99302-3, 28125-3 ####[facility] LABORATORYCLIA [id number] [place] [address] [place] [facility] Natriuretic peptide.B prohormone N-Terminal [Mass/Vol] 35019 pg/mL High <450 [facility] Comment on above: Order Comment: Speci men Type: BLOOD SPECIMENOrdering Facility: [facility] [place] Address: [address] [place] [address] Performed By: #### 1 9123-9, [id number], 78430-5, 24346-1 ####[facility] LABORATORYCLIA [id number] [place] [address] [place] Urinalysis complete panel (U )on 01-27-2025 Bacteria LM.HPF (Urine sed) [#/Area] Moderate Abnormal None Seen [facility] Comment on above: Order Comment: Speci men Type: URINE SPECIMENOrdering Facility: [facility] [place] Address: [address] [place] [address] Performed By: #### 2 4356-8 ####[facility] LABORATORYCLIA [id number] [place] [address] [place]#### 630-4 ####[facility] LABCLIA [id number] [place] [id number] [place] Bilirubin Ql (U) Negative Normal Negative [facility] Comment on above: Order Comment: Speci men Type: URINE SPECIMENOrdering Facility: [facility] [place] Address: [address] [place] [address] Performed By: #### 2 4356-8 ####[facility] LABORATORYCLIA [id number] [place] [address] [place]#### 630-4 ####[facility] LABCLIA [id number] [place] [address] [place] Clarity (Unsp spec) Slightly Cloudy Abnormal Clear [facility] Comment on above: Order Comment: Speci men Type: URINE SPECIMENOrdering Facility: [facility] [place] Address: [address] [place] [address] Performed By: #### 2 4356-8 ####[facility] LABORATORYCLIA [id number] [place] [address] [place] [facility]#### 630-4 ####[facility] LABCLIA [id number] [place] [id number] [place] Color (U) Yellow Normal Yellow [facility] Comment on above: Order Comment: Speci men Type: URINE SPECIMENOrdering Facility: [facility] [place] Address: [address] [place] [address] Performed By: #### 2 4356-8 ####[facility] LABORATORYCLIA [id number] [place] [address] [place]#### 630-4 ####[facility] LABCLIA [id number] [place] [address] [place] Epithelial cells LM.HPF (Urine sed) [#/Area] Few Normal [facility] Comment on above: Order Comment: Speci men Type: URINE SPECIMENOrdering Facility: [facility] [place] Address: [address] [place] [address] Performed By: #### 2 4356-8 ####[facility] LABORATORYCLIA [id number] [place] [address] [place]#### 630-4 ####[facility] LABCLIA [id number] [place] [address] [place] Glucose Test strip (U) [Mass/Vol] 3+ Abnormal Negative [facility] Comment on above: Order Comment: Speci men Type: URINE SPECIMENOrdering Facility: [facility] [place] Address: [address] [place] [address] Performed By: #### 2 4356-8 ####[facility] LABORATORYCLIA [id number] [place] [address] [place]#### 630-4 ####[facility] LABCLIA [id number] [place] [address] [place] Hemoglobin Ql (U) Trace Abnormal Negative [facility] Comment on above: Order Comment: Speci men Type: URINE SPECIMENOrdering Facility: [facility] [place] Address: [address] [place] [address] Performed By: #### 2 4356-8 ####[facility] LABORATORYCLIA [id number] [place] [address] [place]#### 630-4 ####[facility] LABCLIA [id number] [place] [address] [place] Ketones Ql (U) 1+ Abnormal Negative [facility] Comment on above: Order Comment: Speci men Type: URINE SPECIMENOrdering Facility: [facility] [place] Address: [address] [place] [address] Performed By: #### 2 4356-8 ####[facility] LABORATORYCLIA [id number] [address] [place]#### 630-4 ####[facility] LABCLIA [id number] [place] [id number] [place] Leukocyte esterase Test strip Ql (U) 1+ Abnormal Negative [facility] Comment on above: Order Comment: Speci men Type: URINE SPECIMENOrdering Facility: [facility] [place] Address: [address] [place] [address] Performed By: #### 2 4356-8 ####[facility] LABORATORYCLIA [id number] [place] [address] [place]#### 630-4 ####[facility] LABCLIA [id number] [place] [address] [place] Nitrite Ql (U) Positive Abnormal Negative [facility] Comment on above: Order Comment: Speci men Type: URINE SPECIMENOrdering Facility: [facility] [place] Address: [address] [place] [address] Performed By: #### 2 4356-8 ####[facility] LABORATORYCLIA [id number] [place] [address] [place]#### 630-4 ####[facility] LABCLIA [id number] [place] [address] [place] pH (U) 6.5 [pH] Normal 5.0-8.0 [facility] Comment on above: Order Comment: Speci men Type: URINE SPECIMENOrdering Facility: [facility] [place] Address: [address] [place] [address] Performed By: #### 2 4356-8 ####[facility] LABORATORYCLIA [id number] [place] [address] [place]#### 630-4 ####[facility] LABCLIA [id number] [address] [place] Protein (U) [Mass/Vol] Trace Abnormal Negative [facility] Comment on above: Order Comment: Speci men Type: URINE SPECIMENOrdering Facility: [facility] [place] Address: [address] [place] [address] Performed By: #### 2 4356-8 ####[facility]ORATORYCLIA [id number] [address]#### 630-4 ####[facility] LABCLIA [id number] [place] [address] [place] RBC LM.HPF (Urine sed) [#/Area] 0-3 /HPF Normal 0-3 /HPF [facility] Comment on above: Order Comment: Speci men Type: URINE SPECIMENOrdering Facility: [facility] [place] Address: [address] [place] [address] Performed By: #### 2 4356-8 ####[facility] LABORATORYCLIA [id number] [address] [place]#### 630-4 ####[facility] LABCLIA [id number] [address] [place] Specific gravity (U) [Rel density] 1.015 Normal 1.005-1.030 [facility] Comment on above: Order Comment: Speci men Type: URINE SPECIMENOrdering Facility: [facility] [place] Address: [address] [place] [address] Performed By: #### 2 4356-8 ####[facility] LABORATORYCLIA [id number] [place] [address] [facility] [place]#### 630-4 ####[facility] LABCLIA [id number] [place] [address] [place] Urobilinogen Ql (U) 0.2 EU/dL Normal 0.2-1.0 EU/dL [facility] Comment on above: Order Comment: Speci men Type: URINE SPECIMENOrdering Facility: [facility] [place] Address: [address] [place], [place] [address] [id number] Performed By: #### 2 4356-8 ####[facility] LABORATORYCLIA [id number] [address]#### 630-4 ####[facility] LABCLIA [id number] [place] [address] [place] WBC LM.HPF (Urine sed) [#/Area] 11-25 /HPF Abnormal 0-5 /HPF [facility] Comment on above: Order Comment: Speci men Type: URINE SPECIMENOrdering Facility: [facility] [place] [address] [place] [address] Performed By: #### 2 4356-8 ####[facility] LABORATORYCLIA [id number] [place] [address] [place]#### 630-4 ####[facility] LABCLIA [id number] [place] [address] [place] XR CHEST 1V [...] cardiomediastinal silhouette. Other: . IMPRESSION: As above Lap Grinder: KONSTANTIN Transcribe Date/Time: Jan 27 2025 1:31P Dictated by : FRANCISCO NEGRETE MD This examination was interpreted and the report reviewed and electronically signed by: FRANCISCO NEGRETE MD on Jan 27 2025 1:32PM EST [id number] Normal [facility] Basic Metabolic Profile (BMP )on 01-05-2025 BUN/CRE 21.7 RATIO High 10-20 [facility] Comment on above: Order Comment: 546.1 Performed By: #### L 500.2500, L100.0500 #### [facility] [address] [place], [address] Calcium [Mass/Vol] 8.8 mg/dL Normal 7.6-11.0 [facility] Comment on above: Order Comment: 546.1 Performed By: #### L 500.2500, L100.0500 #### [facility] [address] [place], [address] Chloride [Moles/Vol] 107 mmol/L Normal 98-108 [facility] Comment on above: Order Comment: 546.1 Performed By: #### L 500.2500, L100.0500 #### [facility] [address] [place], [address] CO2 [Moles/Vol] 26.2 mmol/L Normal 21.0-32.0 [facility] Comment on above: Order Comment: 546.1 Performed By: #### L 500.2500, L100.0500 #### [facility] [address] [place], [address] Creatinine [Mass/Vol] 1.09 mg/dL Normal 0.70-1.20 [facility] Comment on above: Order Comment: 546.1 Performed By: #### L 500.2500, L100.0500 #### [facility] [address] [place], [address] GAP 8 Normal -15 [facility] Comment on above: Order Comment: 546.1 Performed By: #### L 500.2500, L100.0500 #### [facility] [address] [place], [address] GFR/1.73 sq M.predicted among non-blacks MDRD (S/P/Bld) [Vol rate/Area] 49 mL/min/{1.73_m2} Low >60 [facility] Comment on above: Order Comment: 546.1 Result Comment: mL/m in/1.73m2 CKD-EPI Creatinine Equation (2020) Performed By: #### L 500.2500, L100.0500 #### [facility] [address] [place], [address] Glucose [Mass/Vol] 75 mg/dL Normal 70-99 [facility] Comment on above: Order Comment: 546.1 Performed By: #### L 500.2500, L100.0500 #### [facility] [address] [place], [address] Potassium [Moles/Vol] 4.1 mmol/L Normal 3.3-5.1 [facility] Comment on above: Order Comment: 546.1 Performed By: #### L 500.2500, L100.0500 #### [facility] [address] [place], [address] Sodium [Moles/Vol] 142 mmol/L Normal 133-145 [facility] Comment on above: Order Comment: 546.1 Performed By: #### L 500.2500, L100.0500 #### [facility] [address] [place], [address] Urea nitrogen [Mass/Vol] 24 mg/dL High 4-19 [facility] Comment on above: Order Comment: 546.1 Performed By: #### L 500.2500, L100.0500 #### [facility] [address] [place], [address] Basic Metabolic Profile (BMP )on 12-29-2024 BUN/CRE 30.7 RATIO High 10-20 [facility] Comment on above: Order Comment: 546.1 Performed By: #### L 500.2500, L100.0500 #### [facility] [address] [place], [address] Calcium [Mass/Vol] 9.1 mg/dL Normal 7.6-11.0 [facility] Comment on above: Order Comment: 546.1 Performed By: #### L 500.2500, L100.0500 #### [facility] [address] [place], [address] Chloride [Moles/Vol] 103 mmol/L Normal 98-108 [facility] Comment on above: Order Comment: 546.1 Performed By: #### L 500.2500, L100.0500 #### [facility] [address] [place], [address] CO2 [Moles/Vol] 22.2 mmol/L Normal 21.0-32.0 [facility] Comment on above: Order Comment: 546.1 Performed By: #### L 500.2500, L100.0500 #### [facility] [address] [place], [address] Creatinine [Mass/Vol] 0.88 mg/dL Normal 0.70-1.20 [facility] Comment on above: Order Comment: 546.1 Performed By: #### L 500.2500, L100.0500 #### [facility] [address] [place], [address] GAP 13 Normal 5-15 [facility] Comment on above: Order Comment: 546.1 Performed By: #### L 500.2500, L100.0500 #### [facility] [address] [place], [address] GFR/1.73 sq M.predicted among non-blacks MDRD (S/P/Bld) [Vol rate/Area] 63 mL/min/{1.73_m2} Normal >60 [facility] Comment on above: Order Comment: 546.1 Result Comment: mL/m in/1.73m2 CKD-EPI Creatinine Equation (2020) Performed By: #### L 500.2500, L100.0500 #### [facility] [address] [place], [address] Glucose [Mass/Vol] 78 mg/dL Normal 70-99 [facility] Comment on above: Order Comment: 546.1 Performed By: #### L 500.2500, L100.0500 #### [facility] [address] [place], [address] Potassium [Moles/Vol] 4.2 mmol/L Normal 3.3-5.1 [facility] Comment on above: Order Comment: 546.1 Performed By: #### L 500.2500, L100.0500 #### [facility] [address] [place], [address] Sodium [Moles/Vol] 138 mmol/L Normal 133-145 [facility] Comment on above: Order Comment: 546.1 Performed By: #### L 500.2500, L100.0500 #### [facility] [address] [place], [address] Urea nitrogen [Mass/Vol] 27 mg/dL High 4-19 [facility] Comment on above: Order Comment: 546.1 Performed By: #### L 500.2500, L100.0500 #### [facility] [address] [place], [address] CBC-Complete Blood Cnt No Di ffon 12-29-2024 Erythrocyte distribution width (RBC) [Ratio] 15.7 % High 11.6-14.6 [facility] Comment on above: Order Comment: 546-1 Performed By: #### L 100.0500, L500.2500 #### [facility] [address] [place], [address] Hematocrit (Bld) [Volume fraction] 41.1 % Normal 37-47 [facility] Comment on above: Order Comment: 546-1 Performed By: #### L 100.0500, L500.2500 #### [facility] [address] [place], [address] Hemoglobin (Bld) [Mass/Vol] 13.7 g/dL Normal 12.0-15.0 [facility] Comment on above: Order Comment: 546-1 Performed By: #### L 100.0500, L500.2500 #### [facility] [address] [place], [address] MCH (RBC) [Entitic mass] 30.0 pg Normal 27.0-32.0 [facility] Comment on above: Order Comment: 546-1 Performed By: #### L 100.0500, L500.2500 #### [facility] [address] [place], [address] MCHC (RBC) [Mass/Vol] 33.3 g/dL Normal 32-36 [facility] Comment on above: Order Comment: 546-1 Performed By: #### L 100.0500, L500.2500 #### [facility] [address] [place], [address] MCV (RBC) [Entitic vol] 90.1 fL Normal 81-99 [facility] Comment on above: Order Comment: 546-1 Performed By: #### L 100.0500, L500.2500 #### [facility] [address] [place], [address] Platelet mean volume (Bld) [Entitic vol] 10.7 fL Normal 6.2-12.0 [facility] Comment on above: Order Comment: 546-1 Performed By: #### L 100.0500, L500.2500 #### [facility] [address] [place], [address] Platelets (Bld) [#/Vol] 331 10*3/uL Normal 150-450 [facility] Comment on above: Order Comment: 546-1 Performed By: #### L 100.0500, L500.2500 #### [facility] [address] [place], [address] RBC (Bld) [#/Vol] 4.56 10*6/uL Normal 4.2-5.4 [facility] Comment on above: Order Comment: 546-1 Performed By: #### L 100.0500, L500.2500 #### [facility] [address] [place], [address] RDW SD 51.1 fl High 35.1-43.9 [facility] Comment on above: Order Comment: 546-1 Performed By: #### L 100.0500, L500.2500 #### [facility] [address] [place], [address] WBC (Bld) [#/Vol] 8.7 10*3/uL Normal 4.4-11.0 [facility] Comment on above: Order Comment: 546-1 Performed By: #### L 100.0500, L500.2500 #### [facility] [address] [place], [address] Basic metabolic 2000 panelon 12-27-2024 Anion gap [Moles/Vol] 11 mmol/L Normal 8-15 [facility] Comment on above: Order Comment: Speci men Type: BLOOD SPECIMEN Ordering Facility: [facility] [place] Address: [address] [place] [address] Performed By: #### 2 4321-2 #### [facility] CLIA [id number] [address] [place] [address] [place] Calcium [Mass/Vol] 8.9 mg/dL Normal 8.5-10.2 [facility] Comment on above: Order Comment: Speci men Type: BLOOD SPECIMEN Ordering Facility: [facility] [place] Address: [address] [place] [address] Performed By: #### 2 4321-2 #### [facility] CLIA [id number] [address] [place] [address] [place] Chloride [Moles/Vol] 97 mmol/L Low 98-107 [facility] Comment on above: Order Comment: Vita florez Type: BLOOD SPECIMEN Ordering Facility: [facility] [place] Address: [address] [place] [address] Performed By: #### 2 4321-2 #### [facility] CLIA [id number] [address] [place] CO2 [Moles/Vol] 26 mmol/L Normal 22-30 [facility] Comment on above: Order Comment: Speci men Type: BLOOD SPECIMEN Ordering Facility: [facility] [place] Address: [address] [place] [address] Performed By: #### 2 4321-2 #### [facility] CLIA [id number] [address] [place] [facility] Creatinine [Mass/Vol] 0.97 mg/dL High 0.58-0.96 [facility] Comment on above: Order Comment: Vita florez Type: BLOOD SPECIMEN Ordering Facility: [facility] [place] Address: [address] [place] [address] Performed By: #### 2 4321-2 #### [facility] CLIA [id number] [address] eGFRcr SerPlBld CKD-EPI 2020 56 mL/min/1.73m??? Low >=60 [facility] Comment on above: Order Comment: Vita florez Type: BLOOD SPECIMEN Ordering Facility: [facility] [place] Address: [address] [place] [address] Result Comment: Radha mated Glomerular Filtration Rate [...] GFR. Performed By: #### 2 4321-2 #### [facility] CLIA [id number] [address] [place] Glucose [Mass/Vol] 84 mg/dL Normal 74-99 [facility] Comment on above: Order Comment: Vita florez Type: BLOOD SPECIMEN Ordering Facility: [facility] [place] Address: [address] [place] [address] Result Comment: The [place] Diabetes Association (ADA) provides guidance for cutoff [...] Standards of Medical Care in Diabetes 2016, [place] [employer]. Diabetes Care. 2016.39(Suppl 1). Performed By: #### 2 4321-2 #### [facility] CLIA [id number] [address] [place] [address] [place] Potassium [Moles/Vol] 3.6 mmol/L Low 3.7-5.1 [facility] Comment on above: Order Comment: Vita florez Type: BLOOD SPECIMEN Ordering Facility: [facility] [place] Address: [address] [place] [address] Performed By: #### 2 4321-2 #### [facility] CLIA [id number] [address] [place] [address] [place] Sodium [Moles/Vol] 134 mmol/L Low 136-144 [facility] Comment on above: Order Comment: Vita florez Type: BLOOD SPECIMEN Ordering Facility: [facility] [place] Address: [address] [place], [place] [address] Performed By: #### 2 4321-2 #### [facility] CLIA [id number] [address] [place] [address] [place] Urea nitrogen [Mass/Vol] 28 mg/dL High 7-21 [facility] Comment on above: Order Comment: Vita florez Type: BLOOD SPECIMEN Ordering Facility: [facility] [place] Address: [address] [place] [address] Performed By: #### 2 4321-2 #### [facility] CLIA [id number] [address] [place] CBC panel Auto (Bld)on 12-27 Erythrocyte distribution width (RBC) [Ratio] 15.6 % High 11.5-15.0 [facility] Comment on above: Order Comment: Speci men Type: BLOOD SPECIMENOrdering Facility: [facility] [place] Address: [address] [place] [address] Performed By: #### 5 8410-2 ####[facility] [id number] [address] Hematocrit (Bld) [Volume fraction] 41.6 % Normal 36.0-46.0 [facility] Comment on above: Order Comment: Speci men Type: BLOOD SPECIMENOrdering Facility: [facility] [place] Address: [address] [place] [address] Performed By: #### 5 8410-2 ####[facility] [id number] [address] Hemoglobin (Bld) [Mass/Vol] 13.9 g/dL Normal 11.5-15.5 [facility] Comment on above: Order Comment: Speci men Type: BLOOD SPECIMENOrdering Facility: [facility] [place] Address: [address] [place] [address] Performed By: #### 5 8410-2 ####[facility] [id number] [address] MCH (RBC) [Entitic mass] 29.2 pg Normal 26.0-34.0 [facility] Comment on above: Order Comment: Speci men Type: BLOOD SPECIMENOrdering Facility: [facility] [place] Address: [address] [place] [address] Performed By: #### 5 8410-2 ####[facility] [id number] [address] MCHC (RBC) [Mass/Vol] 33.4 g/dL Normal 30.5-36.0 [facility] Comment on above: Order Comment: Speci men Type: BLOOD SPECIMENOrdering Facility: [facility] [place] Address: [address] [place] [address] Performed By: #### 5 8410-2 ####[facility] [id number] [place] [address] [place] MCV (RBC) [Entitic vol] 87.4 fL Normal 80.0-100.0 [facility] Comment on above: Order Comment: Speci men Type: BLOOD SPECIMENOrdering Facility: [facility] [place] Address: [address] [place] [address] Performed By: #### 5 8410-2 ####[facility] [id number] [place] [address] [place] Nucleated RBC (Bld) [#/Vol] 10*3/uL Normal <0.01 [facility] Comment on above: Order Comment: Speci men Type: BLOOD SPECIMENOrdering Facility: [facility] [place] Address: [address] [place] [address] Performed By: #### 5 8410-2 ####[facility] [id number] [place] [address] [place] Platelet mean volume (Bld) [Entitic vol] 10.2 fL Normal 9.0-12.7 [facility] Comment on above: Order Comment: Speci men Type: BLOOD SPECIMENOrdering Facility: [facility] [place] Address: [address] [place] [address] Performed By: #### 5 8410-2 ####[facility] [id number] [place] [address] [place] Platelets (Bld) [#/Vol] 334 10*3/uL Normal 150-400 [facility] Comment on above: Order Comment: Speci men Type: BLOOD SPECIMENOrdering Facility: [facility] [place] Address: [facility] [place] [address] Performed By: #### 5 8410-2 ####[facility] [id number] [place] [address] [place] RBC (Bld) [#/Vol] 4.76 10*6/uL Normal 3.90-5.20 [facility] Comment on above: Order Comment: Specsj gautam Type: BLOOD SPECIMENOrdering Facility: [facility] [place] Address: [address] [place] [address] Performed By: #### 5 8410-2 ####[facility] [id number] [address] WBC (Bld) [#/Vol] 11.86 10*3/uL High 3.70-11.00 [facility] Comment on above: Order Comment: Speci men Type: BLOOD SPECIMENOrdering Facility: [facility] [place] Address: [address] [place] [address] Performed By: #### 5 8410-2 ####[facility] [id number] [place] [id number] [facility] CNDSon 12-27-2024 CNDS HNO ID: [id number] Author: JOSE ANTONIO MILTON MD Service: General [...] being discharged to her Assisted Living with [facility] Transitions of Care Critical Issues: as above [...] medications will be mailed to you From: [facility] [place] [address] - [address] - [phone] enalapril 2.5 mg tablet furosemide 20 mg tablet FUTURE APPOINTMENTS: Follow Up with PCP: Johnson Watson MD, MD The patient's risk for 30-day readmission is determined using the following contributing factors: Predictive Model Details 11% (Low) Factor Value Calculated 12/27/2024 05:20 -16% diagnosis count 5 [facility] READMISSION RISK Model 11% Facility [facility] -8% ED visits (365d) 0 8% Hospital Unit [address] -8% Admissions (365d) 1 -6% ED Encounter 0 -6% Sodium (Avg) 138.33 -5% Malnutrition 0 -5% Observations (365d) 0 -5% Current Age 89 Plan of care discussed with Patient, Family/Significant Other: son, Care Management, and RN I have performed the mkgh-ts-gfht and relevant services for a total of >30 minutes. SIGNATURE: Jose Antonio Milton MD DATE: December 27, 2024 TIME: 10:38 AM Normal [facility] Basic metabolic 2000 panelon 12-26-2024 Anion gap [Moles/Vol] 11 mmol/L Normal 8-15 [facility] Comment on above: Order Comment: Speci men Type: BLOOD SPECIMENOrdering Facility: [facility] [place] Address: [address] [place] [address] Performed By: #### 2 4321-2 ####[facility] [id number] [place] [address] [place] Calcium [Mass/Vol] 8.9 mg/dL Normal 8.5-10.2 [facility] Comment on above: Order Comment: Speci men Type: BLOOD SPECIMENOrdering Facility: [facility] [place] Address: [address] [place] [address] Performed By: #### 2 4321-2 ####[facility] [id number] [place] [address] [place] Chloride [Moles/Vol] 101 mmol/L Normal 98-107 [facility] Comment on above: Order Comment: Speci men Type: BLOOD SPECIMENOrdering Facility: [facility] [place] Address: [address] [place] [address] Performed By: #### 2 4321-2 ####[facility] [id number] [address] [place] CO2 [Moles/Vol] 28 mmol/L Normal 22-30 [facility] Comment on above: Order Comment: Speci men Type: BLOOD SPECIMENOrdering Facility: [facility] [place] Address: [address] [place] [address] Performed By: #### 2 4321-2 ####[facility] [id number] [address] [place] [facility] Creatinine [Mass/Vol] 1.07 mg/dL High 0.58-0.96 [facility] Comment on above: Order Comment: Speci men Type: BLOOD SPECIMENOrdering Facility: [facility] [place] Address: [address] [place] [address] Performed By: #### 2 4321-2 ####[facility] [id number] [address] [place] [facility] eGFRcr SerPlBld CKD-EPI 2020 50 mL/min/1.73m??? Low >=60 [facility] Comment on above: Order Comment: Speci gautam Type: BLOOD SPECIMENOrdering Facility: [facility] [place] Address: [address] [place] [address] Result Comment: Radha mated Glomerular Filtration Rate [...] Performed By: #### 2 4321-2 ####[facility] [id number] [address] [place] Glucose [Mass/Vol] 77 mg/dL Normal 74-99 [facility] Comment on above: Order Comment: Valei men Type: BLOOD SPECIMENOrdering Facility: [facility] [place] Address: [address] [place] [address] Result Comment: The [place] Diabetes Association (ADA) provides guidance for cutoff [...] Standards of Medical Care in Diabetes 2016, [place] Diabetes Association. Diabetes Care. 2016.39(Suppl 1). Performed By: #### 2 4321-2 ####[facility] [id number] [place] [address] [place] Potassium [Moles/Vol] 3.7 mmol/L Normal 3.7-5.1 [facility] Comment on above: Order Comment: Vita florez Type: BLOOD SPECIMENOrdering Facility: [facility] [place] Address: [address] [place] [address] Performed By: #### 2 4321-2 ####[facility] [id number] [place] [address] [place] Sodium [Moles/Vol] 140 mmol/L Normal 136-144 [facility] Comment on above: Order Comment: Valei men Type: BLOOD SPECIMENOrdering Facility: [facility] [place] Address: [address] [place] [address] Performed By: #### 2 4321-2 ####[facility] [id number] [place] [address] [place] Urea nitrogen [Mass/Vol] 31 mg/dL High 7-21 [facility] Comment on above: Order Comment: Valei men Type: BLOOD SPECIMENOrdering Facility: [facility] [place] Address: [address] [place] [address] Performed By: #### 2 4321-2 ####[facility] [id number] [address] CBC panel Auto (Bld)on 12-26 Erythrocyte distribution width (RBC) [Ratio] 15.8 % High 11.5-15.0 [facility] Comment on above: Order Comment: Speci men Type: BLOOD SPECIMENOrdering Facility: [facility] [place] Address: [address] [place] [address] Performed By: #### 5 8410-2 ####[facility] [id number] [address] Hematocrit (Bld) [Volume fraction] 41.9 % Normal 36.0-46.0 [facility] Comment on above: Order Comment: Speci men Type: BLOOD SPECIMENOrdering Facility: [facility] [place] Address: [address] [place] [address] Performed By: #### 5 8410-2 ####[facility] [id number] [address] Hemoglobin (Bld) [Mass/Vol] 14.0 g/dL Normal 11.5-15.5 [facility] Comment on above: Order Comment: Speci men Type: BLOOD SPECIMENOrdering Facility: [facility] [place] Address: [address] [place] [address] Performed By: #### 5 8410-2 ####[facility] [id number] [address] MCH (RBC) [Entitic mass] 29.7 pg Normal 26.0-34.0 [facility] Comment on above: Order Comment: Speci men Type: BLOOD SPECIMENOrdering Facility: [facility] [place] Address: [address] [place] [address] Performed By: #### 5 8410-2 ####[facility] [id number] [address] MCHC (RBC) [Mass/Vol] 33.4 g/dL Normal 30.5-36.0 [facility] Comment on above: Order Comment: Speci men Type: BLOOD SPECIMENOrdering Facility: [facility] [place] Address: [address] [place] [address] Performed By: #### 5 8410-2 ####[facility] [id number] [address] [place] MCV (RBC) [Entitic vol] 89.0 fL Normal 80.0-100.0 [facility] Comment on above: Order Comment: Speci men Type: BLOOD SPECIMENOrdering Facility: [facility] [place] Address: [address] [place] [address] Performed By: #### 5 8410-2 ####[facility] [id number] [address] Nucleated RBC (Bld) [#/Vol] 10*3/uL Normal <0.01 [facility] Comment on above: Order Comment: Speci men Type: BLOOD SPECIMENOrdering Facility: [facility] [place] Address: [address] [place] [address] Performed By: #### 5 8410-2 ####[facility] [id number] [address] [place] Platelet mean volume (Bld) [Entitic vol] 10.6 fL Normal 9.0-12.7 [facility] Comment on above: Order Comment: Speci men Type: BLOOD SPECIMENOrdering Facility: [facility] [place] Address: [address] [place] [address] Performed By: #### 5 8410-2 ####[facility] [id number] [address] [place] Platelets (Bld) [#/Vol] 364 10*3/uL Normal 150-400 [facility] Comment on above: Order Comment: Speci men Type: BLOOD SPECIMENOrdering Facility: [facility] [place] Address: [address] [place] [address] Performed By: #### 5 8410-2 ####[facility] [id number] [place] [address] [facility] [place] RBC (Bld) [#/Vol] 4.71 10*6/uL Normal 3.90-5.20 [facility] Comment on above: Order Comment: Specsj florez Type: BLOOD SPECIMENOrdering Facility: [facility] [place] Address: [address] [place] [address] Performed By: #### 5 8410-2 ####[facility] [id number] [address] [place] WBC (Bld) [#/Vol] 10.64 10*3/uL Normal 3.70-11.00 [facility] Comment on above: Order Comment: Speci men Type: BLOOD SPECIMENOrdering Facility: [facility] [place] Address: [address] [place] [address] Performed By: #### 5 8410-2 ####[facility] [id number] [place] [id number] [facility] ECHOon 12-26-2024 Echocardiography Echocardiography Report: Transthoracic Echo [facility] Date of service: 12/26/2024 12:23:03 PM Ordering physician: COLLEEN OLIVARES Exam indication: cardiomyopathy Technologist: Caterina Mao [facility] Interpreting physician: Rojas Matthews MD PATIENT: [...] * * Final * * * CC [facility] [facility] : [id number] [facility] NURSING PROGon 12-26-2024 NURSING PROG HNO ID: [id number] Author: RAULITO CHAVEZ, LAKESHIA Service: Nursing Author Type: Registered Nurse Type: Nursing Progress Note Filed: 12/26/2024 14:50 Note Text: PATIENT EDUCATION HEART FAILURE PATIENT NAME: Na Good PATIENT LOCATION: [place] [address]/[place] [address] 2 SURVIVAL SKILLS: Low Sodium Diet Weight [...] Skill discussed. Pt in assisted living in [place], this is fairly new for her. Children are all out of states. Son will discuss daily weight and low sodium meal plan w/ staff. Currently she orders off a menu @ meal times. Pt doesn't drink over 64 ounces per day, but unsure of intake. Medications are provided to her @ [place]. Additional Lasix was give [employer]. Pt states her normal weighs are b/t [...] Patient Education Electronically Signed By: Raulito Chavez [facility] THERAPY NTon 12-26-2024 THERAPY NT HNO ID: [id number] Author: LESLIE BARRERA PT Service: Physical Therapy Author Type: Physical Therapist Type: Therapy (PT/OT/Speech/Resp) Filed: 12/26/2024 11:56 Note Text: Summary: PT eval Physical Therapy Evaluation Summary SERVICE DATE: 12/26/2024 SERVICE TIME: 1123 to 1146 ROOM: [place] [address] PT 6 Clicks Score: 18 DISCHARGE RECOMMENDATIONS [...] HOME LIVING Patient Lives With: Facility Care ([facility]) Assistance Available: 24-Hour (has a [...] on feet TREATMENT INTERVENTIONS Evaluation, Therapeutic Exercise (41227) Timed Code Treatment (minutes): 8 Skilled Treatment Time (minutes): 23 $ Evaluation-Low (33958) Billed Units: 1 unit Therapeutic Exercise (16145) Treatment Minutes: 8 $ Therapeutic Exercise (95046) Billed Units: 1 unit TRAINING AND EDUCATION [...] (more content not included)... Normal [facility] Basic metabolic 2000 panelon 12-25-2024 Anion gap [Moles/Vol] 10 mmol/L Normal 8-15 [facility] Comment on above: Order Comment: Speci men Type: BLOOD SPECIMENOrdering Facility: [facility] [place] Address: [address] [place] [address] Performed By: #### 2 4321-2, 3016-3 ####[facility]CLIA [id number] [place] [address] [place]#### 3024-7 ####[facility] LABCLIA [id number] [place] [id number] [place] Calcium [Mass/Vol] 9.1 mg/dL Normal 8.5-10.2 [facility] Comment on above: Order Comment: Speci men Type: BLOOD SPECIMENOrdering Facility: [facility] [place] Address: [address] [place] [address] Performed By: #### 2 4321-2, 6-3 ####[facility]CL[facility] [id number] [place] [address] [place]#### 3024-7 ####[facility] LABCLIA [id number] [place] [address] [place] Chloride [Moles/Vol] 103 mmol/L Normal 98-107 [facility] Comment on above: Order Comment: Speci men Type: BLOOD SPECIMENOrdering Facility: [facility] [place] Address: [address] [place] [address] Performed By: #### 2 4321-2, 3015-3 ####[facility]ORYCLIA [id number] [place] [address] [place]#### 3024-7 ####[facility] LABCLIA [id number] [place] [address] [place] CO2 [Moles/Vol] 26 mmol/L Normal 22-30 [facility] Comment on above: Order Comment: Speci men Type: BLOOD SPECIMENOrdering Facility: [facility] Address: [address] [place] [address] Performed By: #### 2 4321-2, 3015-3 ####[facility]ORYCLIA [id number] [place] [address] [place]#### 3024-7 ####[facility] LABCLIA [id number] [place] [id number] [place] Creatinine [Mass/Vol] 1.01 mg/dL High 0.58-0.96 [facility] Comment on above: Order Comment: Speci men Type: BLOOD SPECIMENOrdering Facility: [facility] Address: [address] [place] [id number] Performed By: #### 2 4321-2, 3016-3 ####[facility]ORYCLIA [id number] [place] [address] [place]#### 3024-7 ####[facility] LABCLIA [id number] [place] [address] [place] eGFRcr SerPlBld CKD-EPI 2020 53 mL/min/1.73m??? Low >=60 [facility] Comment on above: Order Comment: Vita florez Type: BLOOD SPECIMENOrdering Facility: [facility] Address: [address] [place] [address] Result Comment: Radha mated Glomerular Filtration Rate [...] GFR. Performed By: #### 2 4321-2, 3016-3 ####[facility]ORYCLIA [id number] [place] [address] [place]#### 3024-7 ####[facility] LABCLIA [id number] [place] [address] [place] Glucose [Mass/Vol] 80 mg/dL Normal 74-99 [facility] Comment on above: Order Comment: Vita florez Type: BLOOD SPECIMENOrdering Facility: [facility] Address: [address] [place] [address] Result Comment: The [place] Diabetes Association (ADA) provides guidance for cutoff [...] Standards of Medical Care in Diabetes 2016, [place] [employer]. Diabetes Care. 2016.39(Suppl 1). Performed By: #### 2 4321-2, 6-3 ####[facility]ATORYCLIA [id number] [place] [address] [place]#### 3024-7 ####[facility] LABCLIA [id number] [address] [address] [place] Potassium [Moles/Vol] 4.3 mmol/L Normal 3.7-5.1 [facility] Comment on above: Order Comment: Speci men Type: BLOOD SPECIMENOrdering Facility: [facility] Address: [address] [place] [address] Performed By: #### 2 4320-2, 3015-3 ####[facility]ATORYCLIA [id number] [place] [address] [place]#### 3024-7 ####[facility] LABCLIA [id number] [place] [id number] [place] Sodium [Moles/Vol] 139 mmol/L Normal 136-144 [facility] Comment on above: Order Comment: Speci men Type: BLOOD SPECIMENOrdering Facility: [facility] [place] Address: [address] [place] [address] Performed By: #### 2 4320-2, 3015-3 ####[facility] LABORATORYCLIA [id number] [place] [address] [place]#### 3024-7 ####[facility] LABCLIA [id number] [place] [id number] [place] Urea nitrogen [Mass/Vol] 25 mg/dL High 7-21 [facility] Comment on above: Order Comment: Speci men Type: BLOOD SPECIMENOrdering Facility: [facility] [place] Address: [address] [place] [address] Performed By: #### 2 4321-2, 3016-3 ####BAIRD LABORATORYCLIA [id number] [place] [address] [place]#### 3024-7 ####[facility] LABCLIA [id number] [address] [place] CBC panel Auto (Bld)on 12-25 Erythrocyte distribution width (RBC) [Ratio] 15.9 % High 11.5-15.0 [facility] Comment on above: Order Comment: Speci men Type: BLOOD SPECIMENOrdering Facility: [facility] [place] Address: [address] [place] [address] Performed By: #### 5 8410-2 ####BA[facility] LABORATORYCLIA [id number] [address] Hematocrit (Bld) [Volume fraction] 40.0 % Normal 36.0-46.0 [facility] Comment on above: Order Comment: Speci men Type: BLOOD SPECIMENOrdering Facility: [facility] [place] Address: [address] [place] [address] Performed By: #### 5 8410-2 ####BA[facility] LABORATORYCLIA [id number] [address] [place] [facility] Hemoglobin (Bld) [Mass/Vol] 13.0 g/dL Normal 11.5-15.5 [facility] Comment on above: Order Comment: Speci men Type: BLOOD SPECIMENOrdering Facility: [facility] [place] Address: [address] [place] [address] Performed By: #### 5 8410-2 ####BA[facility] LABORATORYCLIA [id number] [address] MCH (RBC) [Entitic mass] 29.1 pg Normal 26.0-34.0 [facility] Comment on above: Order Comment: Speci men Type: BLOOD SPECIMENOrdering Facility: [facility] [place] Address: [address] [place] [address] Performed By: #### 5 8410-2 ####BA[facility] LABORATORYCLIA [id number] [address] [place] MCHC (RBC) [Mass/Vol] 32.5 g/dL Normal 30.5-36.0 [facility] Comment on above: Order Comment: Speci men Type: BLOOD SPECIMENOrdering Facility: [facility] [place] Address: [address] [place] [address] Performed By: #### 5 8410-2 ####BA[facility] LABORATORYCLIA [id number] [place] [address] [place] MCV (RBC) [Entitic vol] 89.7 fL Normal 80.0-100.0 [facility] Comment on above: Order Comment: Speci men Type: BLOOD SPECIMENOrdering Facility: [facility] [place] Address: [address] [place] [address] Performed By: #### 5 8410-2 ####BA[facility] LABORATORYCLIA [id number] [address] [place] Nucleated RBC (Bld) [#/Vol] 10*3/uL Normal <0.01 [facility] Comment on above: Order Comment: Speci men Type: BLOOD SPECIMENOrdering Facility: [facility] [place] Address: [address] [place] [address] Performed By: #### 5 8410-2 ####BA[facility] LABORATORYCLIA [id number] [address] [place] Platelet mean volume (Bld) [Entitic vol] 10.2 fL Normal 9.0-12.7 [facility] Comment on above: Order Comment: Speci men Type: BLOOD SPECIMENOrdering Facility: [facility] [place] Address: [address] [place] [address] Performed By: #### 5 8410-2 ####BAIRD LABORATORYCLIA [id number] [place] [address] [place] Platelets (Bld) [#/Vol] 324 10*3/uL Normal 150-400 [facility] Comment on above: Order Comment: Speci men Type: BLOOD SPECIMENOrdering Facility: [facility] [place] Address: [address] [place] [address] Performed By: #### 5 8410-2 ####BAIRD LABORATORYCLIA [id number] [place] [address] [place] RBC (Bld) [#/Vol] 4.46 10*6/uL Normal 3.90-5.20 [facility] Comment on above: Order Comment: Speci men Type: BLOOD SPECIMENOrdering Facility: [facility] [place] Address: [address] [place] [address] Performed By: #### 5 8410-2 ####BA[facility] LABORATORYCLIA [id number] [address] [place] WBC (Bld) [#/Vol] 9.63 10*3/uL Normal 3.70-11.00 [facility] Comment on above: Order Comment: Speci men Type: BLOOD SPECIMENOrdering Facility: [facility] [place] Address: [address] [place] [address] Performed By: #### 5 8410-2 ####BAIRD LABORATORYCLIA [id number] [address] CONSULTon 12-25-2024 CONSULT HNO ID: [id number] Author: ROJAS MATTHEWS MD Service: Cardiovascular Medicine Author Type: Physician Type: Consults Filed: 12/25/2024 15:05 Note Text: . [facility] Domenic Rayo Department of Cardiovascular Medicine SECTION OF REGIONAL CARDIOLOGY/[facility] Consultation Note Name: Na Good : 1935 Primary Physician: Johnson Watson MD, MD Consulting Physician: Liam Smith MD Primary Occupational Therapy Asst: SERVICE DATE: December 25, 2024 ADMISSION HISTORY [...] (more content not included)... Normal [facility] HISTORY PHYSICALon HISTORY PHYSICAL HNO ID: [id number] Author: LIAM SMITH MD Service: General Internal Medicine Author Type: Physician Type: H&P Filed: 12/25/2024 14:11 Note Text: [facility] STAFF PHYSICIAN NOTE OF PERSONAL [...] counseling and/or coordinating care for the patient. Wdqd-ml-gvrm time was 35 minutes SIGNATURE: Liam Smith [...] thrombus (eliquis), HTN, tremors, macular degeneration, CAD, CHINIK, and insomnia. Her medical records in [facility] are from [place], [place]. Daughter, Janelle is at the bedside. (She is from [place]). She moved back to [place] in August due to the altitude- shortness of breath. She is residing at [facility] in [place]. She does not know all her medications as they administer them for her. She provided [place] paperwork. She is A/ox3, very CHINIK, she uses 2 walking sticks to ambulate, she has NEW/ occasional dry, non productive cough, she is on RA, lungs diminished, no edema. 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 Daughter informs me while [...] (more content not included)... Normal [facility] T4 Free SerPl-mCncon 025 Free T4 [Mass/Vol] 1.9 ng/dL High 0.9-1.7 [facility] Comment on above: Order Comment: Speci men Type: BLOOD SPECIMENOrdering Facility: [facility] [place] Address: [address] [place] [address] Performed By: #### 2 4321-2, 3016-3 ####[facility] LABORATORYCLIA [id number] [address] [place]#### 3024-7 ####[facility] LABCLIA [id number] [address] [place] THERAPY NTon 12-25-2024 THERAPY NT HNO ID: [id number] Author: CAROLE HUGHES OT/Amy Service: Occupational Therapy Author Type: Occupational Therapist Type: Therapy (PT/OT/Speech/Resp) Filed: 12/25/2024 11:37 Note Text: Summary: OT Evaluation Occupational Therapy Evaluation Summary SERVICE DATE: 12/25/2024 SERVICE TIME: 1103 to 1127 ROOM: [place] [address] OT 6 Clicks Score: 20 DISCHARGE RECOMMENDATIONS Home Recommended Discharge Disposition Comments: return to [facility] Anticipated Discharge Needs: Physical Assist [...] baseline with ADLs and functional mobility/transfers, very CHINIK, follows commands appropriately, reports no questions/concerns for returning to [facility] PRECAUTIONS Bed/Chair Alarm, Fall Risk CURRENT HOSPITAL COURSE Patient presents with abdominal pain and Shortness of Breath, admitted for acute on chronic CHF Relevant Past Medical History: cardiomyopathy, goiter, osteopenia, pleural effusions, macular degeneration, tremors, HTN, LV thrombus, CHF, CHINIK, insomnia HOME LIVING Patient Lives With: Facility Care ([facility]) Assistance Available: 24-Hour (has a [...] daily living (ADL) TREATMENT INTERVENTIONS Evaluation, Self Jail Management ([address]) Timed Code Treatment (minutes): 9 Skilled Treatment Time (minutes): 24 TRAINING AND EDUCATION PROVIDED Activity Adaptation/Product Safety Manager y Strategies, Adaptive Equipment/DME, Bed Mobility, Benefits of In-Hospital Mobility, Cognitive Skills, Command Following, Discharge Planning, Expected Functional Level, Functional Mobility Involving ADLs, Insight into Deficits, Lower Extremity Dressing, Memory/Attention, Orientation, Positioning, Role of Occupational Therapy, Safety/Judgment, Sitting Balance to Improve Flora with ADLs/Self-Care, Standing Balance to Improve Flora with ADLs/Self-Care, Transfer - Bed to Chair, [...] (more content not included)... Normal [facility] TSH SerPl-aCncon 12-25-2024 TSH Qn 0.326 m[IU]/L Normal 0.270-4.200 [facility] Comment on above: Order Comment: Speci men Type: BLOOD SPECIMENOrdering Facility: [facility] [place] Address: [address] [place] [address] Performed By: #### 2 4321-2, 3016-3 ####[facility] LABORATORYCLIA [id number] [place] [address] [place]#### 3024-7 ####[facility] LABCLIA [id number] [place] [address] [place] ALLIED HEALTHon 12-24-2024 ALLIED HEALTH HNO ID: [id number] Author: PETER RAHMAN RT(R) Service: Radiology Author Type: Apron Trimmer Type: Allied Health Filed: 12/24/2024 13:03 Note [...] PATIENT PRESENTS WITH AN IMPLANTABLE OR ATTACHED PLAYGROUND DIRECTOR: No RADIOLOGY DEPARTMENT: General X-ray: Exam(s) Completed: Chest X-Ray PERIPHERAL IV DATA: Not applicable SIGNED BY: RT Lary(R) December 24, 2024 1:03 PM Normal [facility] Basic metabolic 2000 panelon 12-24-2024 Anion gap [Moles/Vol] 12 mmol/L Normal 8-15 [facility] Comment on above: Order Comment: Specsj florez Type: BLOOD SPECIMENOrdering Facility: [facility] [place] Address: [address] [place] [address] Performed By: #### H STNT, 60198-7, 24616-8, 31624-0, 3015-3 ####[facility] LABORATORYCLIA [id number] [place] [address] [place] Calcium [Mass/Vol] 9.5 mg/dL Normal 8.5-10.2 [facility] Comment on above: Order Comment: Valei gautam Type: BLOOD SPECIMENOrdering Facility: [facility] [place] Address: [address] [place] [address] Performed By: #### H STNT, 07037-7, 10493-0, 19722-4, 3015-3 ####[facility] LABORATORYCLIA [id number] [place] [id number] [place] Chloride [Moles/Vol] 101 mmol/L Normal 98-107 [facility] Comment on above: Order Comment: Speci men Type: BLOOD SPECIMENOrdering Facility: [facility] [place] Address: [address] [place] [address] Performed By: #### H STNT, 72601-9, 50529-0, 09570-6, 3016-3 ####BA[facility] LABORATORYCLIA [id number] [address] STATES OF [facility] CO2 [Moles/Vol] 23 mmol/L Normal 22-30 [facility] Comment on above: Order Comment: Speci men Type: BLOOD SPECIMENOrdering Facility: [facility] [place] Address: [address] [place] [address] Performed By: #### H STNT, 44809-0, 00627-7, 45006-0, 6-3 ####[facility] LABORATORYCLIA [id number] [address] [place] Creatinine [Mass/Vol] 0.87 mg/dL Normal 0.58-0.96 [facility] Comment on above: Order Comment: Speci men Type: BLOOD SPECIMENOrdering Facility: [facility] [place] Address: [address] [place] [address] Performed By: #### H STNT, 32654-7, 62935-4, 31932-4, 3015-3 ####[facility] LABORATORYCLIA [id number] [address] [place] eGFRcr SerPlBld CKD-EPI 2020 64 mL/min/1.73m??? Normal >=60 [facility] Comment on above: Order Comment: Speci men Type: BLOOD SPECIMENOrdering Facility: [facility] [place] Address: [address] [place] [address] Result Comment: Radha mated Glomerular Filtration Rate [...] actual GFR. Performed By: #### H STNT, 14580-8, 61720-6, 79978-1, 3016-3 ####[facility] LABORATORYCLIA [id number] [place] [address] [place] Glucose [Mass/Vol] 95 mg/dL Normal 74-99 [facility] Comment on above: Order Comment: Speci men Type: BLOOD SPECIMENOrdering Facility: [facility] [place] Address: [address] [place] [address] Result Comment: The [place] Diabetes Association (ADA) provides guidance for cutoff [...] Standards of Medical Care in Diabetes 2016, [place] [employer]. Diabetes Care. 2016.39(Suppl 1). Performed By: #### H STNT, 83645-8, 30374-7, 66520-6, 6-3 ####[facility] LABORATORYCLIA [id number] [place] [id number] [place] Potassium [Moles/Vol] 5.1 mmol/L Normal 3.7-5.1 [facility] Comment on above: Order Comment: Valei men Type: BLOOD SPECIMENOrdering Facility: [facility] [place] Address: [address] [place] [address] Performed By: #### H STNT, 06465-1, 23730-9, 39587-0, 6-3 ####[facility] LABORATORYCLIA [id number] [place] [id number] [place] Sodium [Moles/Vol] 136 mmol/L Normal 136-144 [facility] Comment on above: Order Comment: Speci men Type: BLOOD SPECIMENOrdering Facility: [facility] [place] Address: [address] [place] [address] Performed By: #### H STNT, 13709-4, 10455-7, 66884-7, 3016-3 ####BAIRD LABORATORYCLIA [id number] [place] [address] [place] Urea nitrogen [Mass/Vol] 24 mg/dL High 7- [facility] Comment on above: Order Comment: Speci men Type: BLOOD SPECIMENOrdering Facility: [facility] [place] Address: [address] [place] [address] Performed By: #### H STNT, 07422-4, 72407-0, 02631-5, 3016-3 ####BA[facility] LABORATORYCLIA [id number] [place] [address] [place] CBC W Auto Differential pane l (Bld)on 12-24-2024 Basophils (Bld) [#/Vol] 0.09 10*3/uL Normal <0.11 [facility] Comment on above: Order Comment: Speci men Type: BLOOD SPECIMENOrdering Facility: [facility] [place] Address: [address] [place] [address] Performed By: #### 5 7021-8 ####BAIRD LABORATORYCLIA [id number] [place] [address] [place] Basophils/100 WBC (Bld) 0.9 % Normal [facility] Comment on above: Order Comment: Speci men Type: BLOOD SPECIMENOrdering Facility: [facility] [place] Address: [address] [place] [address] Performed By: #### 5 7021-8 ####BA[facility] LABORATORYCLIA [id number] [address] Differential cell count method Nom (Bld) Auto Normal [facility] Comment on above: Order Comment: Speci men Type: BLOOD SPECIMENOrdering Facility: [facility] [place] Address: [address] [place] [address] Performed By: #### 5 7021-8 ####BAIRD LABORATORYCLIA [id number] [place] [address] [place] Eosinophils (Bld) [#/Vol] 0.04 10*3/uL Normal <0.46 [facility] Comment on above: Order Comment: Speci men Type: BLOOD SPECIMENOrdering Facility: [facility] [place] Address: [address] [place] [address] Performed By: #### 5 7021-8 ####BA[facility] LABORATORYCLIA [id number] [address] [place] Eosinophils/100 WBC (Bld) 0.4 % Normal [facility] Comment on above: Order Comment: Speci men Type: BLOOD SPECIMENOrdering Facility: [facility] [place] Address: [address] [place] [address] Performed By: #### 5 7021-8 ####BA[facility] LABORATORYCLIA [id number] [place] [address] [place] Erythrocyte distribution width (RBC) [Ratio] 16.1 % High 11.5-15.0 [facility] Comment on above: Order Comment: Speci men Type: BLOOD SPECIMENOrdering Facility: [facility] [place] Address: [address] [place] [address] Performed By: #### 5 7021-8 ####BA[facility] LABORATORYCLIA [id number] [address] [place] Hematocrit (Bld) [Volume fraction] 42.0 % Normal 36.0-46.0 [facility] Comment on above: Order Comment: Speci men Type: BLOOD SPECIMENOrdering Facility: [facility] [place] Address: [address] [place] [address] Performed By: #### 5 7021-8 ####BA[facility] LABORATORYCLIA [id number] [address] [place] Hemoglobin (Bld) [Mass/Vol] 14.0 g/dL Normal 11.5-15.5 [facility] Comment on above: Order Comment: Speci men Type: BLOOD SPECIMENOrdering Facility: [facility] [place] Address: [address] [place] [address] Performed By: #### 5 7021-8 ####[facility] LABORATORYCLIA [id number] [address] [place] Immature granulocytes (Bld) [#/Vol] 0.04 10*3/uL Normal <0.10 [facility] Comment on above: Order Comment: Speci men Type: BLOOD SPECIMENOrdering Facility: [facility] [place] Address: [address] [place] [address] Performed By: #### 5 7021-8 ####[facility] LABORATORYCLIA [id number] [address] Immature granulocytes/100 WBC (Bld) 0.4 % Normal [facility] Comment on above: Order Comment: Speci men Type: BLOOD SPECIMENOrdering Facility: [facility] [place] Address: [address] [place] [address] Performed By: #### 5 7021-8 ####[facility] LABORATORYCLIA [id number] [place] [address] [place] Lymphocytes (Bld) [#/Vol] 1.01 10*3/uL Normal 1.00-4.00 [facility] Comment on above: Order Comment: Speci men Type: BLOOD SPECIMENOrdering Facility: [facility] [place] Address: [address] [place] [address] Performed By: #### 5 7021-8 ####[facility] LABORATORYCLIA [id number] [address] Lymphocytes/100 WBC (Bld) 10.4 % Normal [facility] Comment on above: Order Comment: Speci men Type: BLOOD SPECIMENOrdering Facility: [facility] [place] Address: [address] [place] [address] Performed By: #### 5 7021-8 ####[facility] LABORATORYCLIA [id number] [address] [place] MCH (RBC) [Entitic mass] 30.0 pg Normal 26.0-34.0 [facility] Comment on above: Order Comment: Speci men Type: BLOOD SPECIMENOrdering Facility: [facility] [place] Address: [address] [place] [address] Performed By: #### 5 7021-8 ####[facility] LABORATORYCLIA [id number] [address] [place] MCHC (RBC) [Mass/Vol] 33.3 g/dL Normal 30.5-36.0 [facility] Comment on above: Order Comment: Speci men Type: BLOOD SPECIMENOrdering Facility: [facility] [place] Address: [address] [place] [address] Performed By: #### 5 7021-8 ####[facility] LABORATORYCLIA [id number] [address] [place] MCV (RBC) [Entitic vol] 90.1 fL Normal 80.0-100.0 [facility] Comment on above: Order Comment: Speci men Type: BLOOD SPECIMENOrdering Facility: [facility] [place] Address: [address] [place] [address] Performed By: #### 5 7021-8 ####[facility] LABORATORYCLIA [id number] [place] [address] [place] Monocytes (Bld) [#/Vol] 0.81 10*3/uL Normal <0.87 [facility] Comment on above: Order Comment: Speci men Type: BLOOD SPECIMENOrdering Facility: [facility] [place] Address: [address] [place] [address] Performed By: #### 5 7021-8 ####[facility] LABORATORYCLIA [id number] [address] Monocytes/100 WBC (Bld) 8.3 % Normal [facility] Comment on above: Order Comment: Speci men Type: BLOOD SPECIMENOrdering Facility: [facility] [place] Address: [address] [place] [address] Performed By: #### 5 7021-8 ####BA[facility] LABORATORYCLIA [id number] [place] [address] [place] Neutrophils (Bld) [#/Vol] 7.72 10*3/uL High 1.45-7.50 [facility] Comment on above: Order Comment: Speci men Type: BLOOD SPECIMENOrdering Facility: [facility] [place] Address: [address] [place] [address] Performed By: #### 5 7021-8 ####[facility] LABORATORYCLIA [id number] [address] [place] Neutrophils/100 WBC (Bld) 79.6 % Normal [facility] Comment on above: Order Comment: Speci men Type: BLOOD SPECIMENOrdering Facility: [facility] [place] Address: [address] [place] [address] Performed By: #### 5 7021-8 ####BA[facility] LABORATORYCLIA [id number] [place] [address] [place] Nucleated RBC (Bld) [#/Vol] 10*3/uL Normal <0.01 [facility] Comment on above: Order Comment: Speci men Type: BLOOD SPECIMENOrdering Facility: [facility] [place] Address: [address] [place] [address] Performed By: #### 5 7021-8 ####[facility] LABORATORYCLIA [id number] [address] Nucleated RBC/100 WBC (Bld) [Ratio] 0.0 /100 WBC Normal [facility] Comment on above: Order Comment: Speci men Type: BLOOD SPECIMENOrdering Facility: [facility] [place] Address: [address] [place] [address] Performed By: #### 5 7021-8 ####[facility] LABORATORYCLIA [id number] [place] [address] [place] Platelet mean volume (Bld) [Entitic vol] 10.4 fL Normal 9.0-12.7 [facility] Comment on above: Order Comment: Speci men Type: BLOOD SPECIMENOrdering Facility: [facility] [place] Address: [address] [place] [address] Performed By: #### 5 7021-8 ####[facility] LABORATORYCLIA [id number] [place] [address] [place] Platelets (Bld) [#/Vol] 386 10*3/uL Normal 150-400 [facility] Comment on above: Order Comment: Speci men Type: BLOOD SPECIMENOrdering Facility: [facility] [place] Address: [address] [place] [address] Performed By: #### 5 7021-8 ####[facility] LABORATORYCLIA [id number] [place] [address] [place] RBC (Bld) [#/Vol] 4.66 10*6/uL Normal 3.90-5.20 [facility] Comment on above: Order Comment: Speci men Type: BLOOD SPECIMENOrdering Facility: [facility] [place] Address: [address] [facility] [place] [address] Performed By: #### 5 7021-8 ####[facility] LABORATORYCLIA [id number] [address] WBC (Bld) [#/Vol] 9.71 10*3/uL Normal 3.70-11.00 [facility] Comment on above: Order Comment: Speci men Type: BLOOD SPECIMENOrdering Facility: [facility] [place] Address: [address] [place] [address] Performed By: #### 5 7021-8 ####[facility] LABORATORYCLIA [id number] [address] ECG COMPLETEon 12-24-2024 ECG COMPLETE Ventricular Rate : 9 5 BPM Atrial Rate : 95 BPM P-R Interval : 162 ms QRS Duration : 138 ms Q-T Interval : 396 ms QTC Calculation(Bazett) : 497 ms Calculated P Calera : -5 degrees Calculated R Calera : -33 degrees Calculated T Calera : 147 degrees NORMAL SINUS RHYTHM LEFT AXIS DEVIATION LEFT VENTRICULAR HYPERTROPHY WITH QRS WIDENING AND REPOLARIZATION ABNORMALITY ( R in aVL , Enloe product ) CANNOT RULE OUT SEPTAL INFARCT , AGE UNDETERMINED ABNORMAL ECG NO PREVIOUS ECGS AVAILABLE Confirmed by ROJAS MATTHEWS MD ([id number]) on 12/25/2024 5:11:53 PM NAME : NA GOOD PID : [id number] : 1935 Gender : Female Race : ORD : [id number] Procedure Date : Dec 24 2024 19:25:38 Edit Date : Dec 25 2024 17:11:57 Diagnosis: NORMAL SINUS RHYTHM LEFT AXIS DEVIATION LEFT VENTRICULAR HYPERTROPHY WITH QRS WIDENING AND REPOLARIZATION ABNORMALITY ( R in aVL , Enloe product ) CANNOT RULE OUT SEPTAL INFARCT , AGE UNDETERMINED ABNORMAL ECG NO PREVIOUS ECGS AVAILABLE Confirmed by ROJAS MATTHEWS MD ([id number]) on 12/25/2024 5:11:53 PM Test Reason : Shortness of Breath Location : 5 : 3S 0311 Overread By : ROJAS MATTHEWS MD Edited By : ROJAS MATTHEWS MD Referred By : , Acquired by : [id number], Normal [facility] ED PROV NOTEon 12-24-2024 ED PROV NOTE HNO ID: [id number] Author: OSCAR LIZARRAGA DO Service: Emergency Medicine [...] (more content not included)... Normal [facility] Gas and Carbon monoxide pane l (BldV)on 12-24-2024 Base excess Calc (BldV) [Moles/Vol] 1 mmol/L Normal 0-2 [facility] Comment on above: Order Comment: Vita florez Type: BLOOD SPECIMEN Ordering Facility: [facility] [place] Address: [address] [place] [address] Performed By: #### 2 4321-2 #### [facility] CLIA [id number] [address] [place] [address] [place] Calcium.ionized (Bld) [Mass/Vol] 1.17 mmol/L Normal 1.08-1.30 [facility] Comment on above: Order Comment: Vita florez Type: BLOOD SPECIMEN Ordering Facility: [facility] [place] Address: [address] [place] [address] Performed By: #### 2 4321-2 #### [facility] CLIA [id number] [address] [place] [address] [place] Carboxyhemoglobin (BldV) [Mass fraction] 1.3 % Normal 0.0-2.0 [facility] Comment on above: Order Comment: Vita florez Type: BLOOD SPECIMEN Ordering Facility: [facility] [place] Address: [address] [place] [address] Result Comment: Carb oxyhemoglobin Reference Range for Smokers: 2.0-8.0% Performed By: #### 2 4321-2 #### [facility] CLIA [id number] [address] [place] [address] [place] CO2 (BldV) [Partial pressure] 40 mm[Hg] Low 42-55 [facility] Comment on above: Order Comment: Vita florez Type: BLOOD SPECIMEN Ordering Facility: [facility] [place] Address: [address] [place] [address] Performed By: #### 2 4321-2 #### [facility] CLIA [id number] [address] [place] CO2 adjusted to patient's actual temperature (BldV) [Partial pressure] Normal [facility] Comment on above: Order Comment: Speci men Type: BLOOD SPECIMEN Ordering Facility: [facility] [place] Address: [address] [place] [address] Performed By: #### 2 4321-2 #### [facility] CLIA [id number] [address] [place] HCO3 (Bld) [Moles/Vol] 25 mmol/L Normal 24-28 [facility] Comment on above: Order Comment: Speci men Type: BLOOD SPECIMEN Ordering Facility: [facility] [place] Address: [address] [place] [address] Performed By: #### 2 4321-2 #### [facility] CLIA [id number] [address] [place] Hemoglobin (Bld) [Mass/Vol] 13.8 g/dL Normal 11.5-15.5 [facility] Comment on above: Order Comment: Speci men Type: BLOOD SPECIMEN Ordering Facility: [facility] [place] Address: [address] [place] [address] Performed By: #### 2 4321-2 #### [facility] CLIA [id number] [address] [place] [facility] Lactate [Moles/Vol] 2.2 mmol/L Normal 0.5-2.2 [facility] Comment on above: Order Comment: Speci men Type: BLOOD SPECIMEN Ordering Facility: [facility] [place] Address: [address] [place] [address] Performed By: #### 2 4321-2 #### [facility] CLIA [id number] [address] [place] Methemoglobin (Bld) [Mass fraction] % Normal 0.0-1.5 [facility] Comment on above: Order Comment: Speci men Type: BLOOD SPECIMEN Ordering Facility: [facility] [place] Address: [address] [place] [address] Performed By: #### 2 4321-2 #### [facility] CLIA [id number] [address] O2 THERAPY RA=Room Air Normal [facility] Comment on above: Order Comment: Speci men Type: BLOOD SPECIMEN Ordering Facility: [facility] [place] Address: [address] [place] [address] Performed By: #### 2 4321-2 #### [facility] CLIA [id number] [address] [place] Oxygen (BldV) [Partial pressure] mm[Hg] Low 35-45 [facility] Comment on above: Order Comment: Speci men Type: BLOOD SPECIMEN Ordering Facility: [facility] [place] Address: [address] [place] [address] Performed By: #### 2 4321-2 #### [facility] CLIA [id number] [address] [place] Oxygen adjusted to patient's actual temperature (BldV) [Partial pressure] Normal [facility] Comment on above: Order Comment: Speci men Type: BLOOD SPECIMEN Ordering Facility: [facility] [place] Address: [address] [place] [address] Performed By: #### 2 4321-2 #### [facility] CLIA [id number] [address] [place] Oxygen saturation in Venous blood 53 % Low 60-85 [facility] Comment on above: Order Comment: Speci men Type: BLOOD SPECIMEN Ordering Facility: [facility] [place] Address: [address] [place] [address] Performed By: #### 2 4321-2 #### [facility] CLIA [id number] [address] [place] [address] [place] Oxyhemoglobin (BldV) [Mass fraction] 52 % Low 60-85 [facility] Comment on above: Order Comment: Speci men Type: BLOOD SPECIMEN Ordering Facility: [facility] [place] Address: [address] [place] [address] Performed By: #### 2 4321-2 #### [facility] CLIA [id number] [address] [place] [address] [place] pH (BldV) 7.41 [pH] Normal 7.32-7.42 [facility] Comment on above: Order Comment: Speci men Type: BLOOD SPECIMEN Ordering Facility: [facility] [place] Address: [address] [place] [address] Performed By: #### 2 4321-2 #### [facility] CLIA [id number] [address] [place] [address] [place] pH adjusted to patient's actual temperature (BldV) Normal [facility] Comment on above: Order Comment: Speci men Type: BLOOD SPECIMEN Ordering Facility: [facility] [place] Address: [address] [place] [address] Performed By: #### 2 4321-2 #### [facility] CLIA [id number] [address] [place] [address] [place] Potassium [Moles/Vol] 5.4 mmol/L High 3.5-5.0 [facility] Comment on above: Order Comment: Speci men Type: BLOOD SPECIMEN Ordering Facility: [facility] [place] Address: [address] [place] [address] Performed By: #### 2 4321-2 #### [facility] CLIA [id number] [address] [place] [address] [place] HIGH SENSITIVITY TROPONIN To n 12-24-2024 Troponin T.cardiac High sensitivity method [Mass/Vol] 33 ng/L High <12 [facility] Comment on above: Order Comment: Speci men Type: BLOOD SPECIMENOrdering Facility: [facility] [place] Address: [address] [place] [address] Performed By: #### H STNT, 84702-5, 32952-2, 87309-3, 3016-3 ####[facility] [id number] [place] [address] [place] Magnesium SerPl-mCncon 12-24 Magnesium [Mass/Vol] 2.3 mg/dL Normal 1.7-2.3 [facility] Comment on above: Order Comment: Speci men Type: BLOOD SPECIMENOrdering Facility: [facility] [place] Address: [address] [place] [address] Performed By: #### H STNT, 14531-8, 35304-8, 19901-5, 3016-3 ####[facility] [id number] [place] [id number] [facility] NT-proBNP SerPl-mCncon 12-24 Natriuretic peptide.B prohormone N-Terminal [Mass/Vol] 88042 pg/mL High <450 [facility] Comment on above: Order Comment: Speci men Type: BLOOD SPECIMENOrdering Facility: [facility] [place] Address: [address] [place] [address] Performed By: #### H STNT, 03374-6, 99992-1, 45378-4, 6-3 ####[facility] [id number] [address] TSH SerPl-aCncon 12-24-2024 TSH Qn 0.465 m[IU]/L Normal 0.270-4.200 [facility] Comment on above: Order Comment: Speci men Type: BLOOD SPECIMENOrdering Facility: [facility] [place] Address: [address] [place] [address] Performed By: #### H STNT, 87865-0, 60964-9, 99703-5, 6-3 ####[facility] [id number] [address] OF [facility] XR CHEST 2V FRONTAL/LATon XR CHEST [...] pulmonary edema. Superimposed infection cannot be excluded. Lap Grinder: PSCB Transcribe Date/Time: Dec 24 2024 1:15P Dictated by : ROXANE CRUZ MD This examination was interpreted and the report reviewed and electronically signed by: ROXANE CRUZ MD on Dec 24 2024 1:19PM EST [id number] Normal [facility] CBC-Complete Blood Cnt No Di ffon 12-11-2024 HCT Normal 37-47 [facility] Comment on above: Order Comment: 546.1 Result Comment: LABS WERE DONE 12/09/24 DOES NOT NEED REPEATED PER NURSE Performed By: #### L 500.4050, L100.0500 #### [facility] [address] [place], [address] HGB Normal 12.0-15.0 [facility] Comment on above: Order Comment: 546.1 Result Comment: LABS WERE DONE 12/09/24 DOES NOT NEED REPEATED PER NURSE Performed By: #### L 500.4050, L100.0500 #### [facility] [address] [place], [address] MCH Normal 27.0-32.0 [facility] Comment on above: Order Comment: 546.1 Result Comment: LABS WERE DONE 12/09/24 DOES NOT NEED REPEATED PER NURSE Performed By: #### L 500.4050, L100.0500 #### [facility] [address] [place], [address] MCHC Normal 32-36 [facility] Comment on above: Order Comment: 546.1 Result Comment: LABS WERE DONE 12/09/24 DOES NOT NEED REPEATED PER NURSE Performed By: #### L 500.4050, L100.0500 #### [facility] [address] [place], [address] MCV Normal 81-99 [facility] Comment on above: Order Comment: 546.1 Result Comment: LABS WERE DONE 12/09/24 DOES NOT NEED REPEATED PER NURSE Performed By: #### L 500.4050, L100.0500 #### [facility] [address] [place], [address] PLT Normal 150-450 [facility] Comment on above: Order Comment: 546.1 Result Comment: LABS WERE DONE 12/09/24 DOES NOT NEED REPEATED PER NURSE Performed By: #### L 500.4050, L100.0500 #### [facility] [address] [place], [address] RBC Normal 4.2-5.4 [facility] Comment on above: Order Comment: 546.1 Result Comment: LABS WERE DONE 12/09/24 DOES NOT NEED REPEATED PER NURSE Performed By: #### L 500.4050, L100.0500 #### [facility] [address] [place], [address] RDW CV Normal 11.6-14.6 [facility] Comment on above: Order Comment: 546.1 Result Comment: LABS WERE DONE 12/09/24 DOES NOT NEED REPEATED PER NURSE Performed By: #### L 500.4050, L100.0500 #### [facility] [address] [place], [address] RDW SD Normal 35.1-43.9 [facility] Comment on above: Order Comment: 546.1 Result Comment: LABS WERE DONE 12/09/24 DOES NOT NEED REPEATED PER NURSE Performed By: #### L 500.4050, L100.0500 #### [facility] [address] [place], [address] WBC Normal 4.4-11.0 [facility] Comment on above: Order Comment: 546.1 Result Comment: LABS WERE DONE 12/09/24 DOES NOT NEED REPEATED PER NURSE Performed By: #### L 500.4050, L100.0500 #### [facility] [address] [place], [address] Comprehensive Metabolic Prof ilon 12-11-2024 ALB Normal 3.4-4.8 [facility] Comment on above: Order Comment: 546.1 Result Comment: LABS WERE DONE 12/09/24 DOES NOT NEED REPEATED PER NURSE Performed By: #### L 500.4050, L100.0500 #### [facility] [address] [place], [address] ALK PHOS Normal 35-104 [facility] Comment on above: Order Comment: 546.1 Result Comment: LABS WERE DONE 12/09/24 DOES NOT NEED REPEATED PER NURSE Performed By: #### L 500.4050, L100.0500 #### [facility] [address] [place], [address] ALT Normal <=34 [facility] Comment on above: Order Comment: 546.1 Result Comment: LABS WERE DONE 12/09/24 DOES NOT NEED REPEATED PER NURSE Performed By: #### L 500.4050, L100.0500 #### [facility] [address] [place], [address] AST Normal <=31 [facility] Comment on above: Order Comment: 546.1 Result Comment: LABS WERE DONE 12/09/24 DOES NOT NEED REPEATED PER NURSE Performed By: #### L 500.4050, L100.0500 #### [facility] [address] [place], [address] BUN Normal 4-19 [facility] Comment on above: Order Comment: 546.1 Result Comment: LABS WERE DONE 12/09/24 DOES NOT NEED REPEATED PER NURSE Performed By: #### L 500.4050, L100.0500 #### [facility] [address] [place], [address] BUN/CRE Normal 10-20 [facility] Comment on above: Order Comment: 546.1 Result Comment: LABS WERE DONE 12/09/24 DOES NOT NEED REPEATED PER NURSE Performed By: #### L 500.4050, L100.0500 #### [facility] [address] [place], [address] Calcium Normal 7.6-11.0 [facility] Comment on above: Order Comment: 546.1 Result Comment: LABS WERE DONE 12/09/24 DOES NOT NEED REPEATED PER NURSE Performed By: #### L 500.4050, L100.0500 #### [facility] [address] [place], [address] CL Normal 98-108 [facility] Comment on above: Order Comment: 546.1 Result Comment: LABS WERE DONE 12/09/24 DOES NOT NEED REPEATED PER NURSE Performed By: #### L 500.4050, L100.0500 #### [facility] [address] [place], [address] CO2 Normal 21.0-32.0 [facility] Comment on above: Order Comment: 546.1 Result Comment: LABS WERE DONE 12/09/24 DOES NOT NEED REPEATED PER NURSE Performed By: #### L 500.4050, L100.0500 #### [facility] [address] [place], [address] CREAT,SERUM Normal 0.70-1.20 [facility] Comment on above: Order Comment: 546.1 Result Comment: LABS WERE DONE 12/09/24 DOES NOT NEED REPEATED PER NURSE Performed By: #### L 500.4050, L100.0500 #### [facility] [address] [place], [address] eGFR Normal >60 [facility] Comment on above: Order Comment: 546.1 Result Comment: LABS WERE DONE 12/09/24 DOES NOT NEED REPEATED PER NURSE Performed By: #### L 500.4050, L100.0500 #### [facility] [address] [place], [address] GAP Normal 5-15 [facility] Comment on above: Order Comment: 546.1 Result Comment: LABS WERE DONE 12/09/24 DOES NOT NEED REPEATED PER NURSE Performed By: #### L 500.4050, L100.0500 #### [facility] [address] [place], [address] GLU Normal 70-99 [facility] Comment on above: Order Comment: 546.1 Result Comment: LABS WERE DONE 12/09/24 DOES NOT NEED REPEATED PER NURSE Performed By: #### L 500.4050, L100.0500 #### [facility] [address] [place], [address] Potassium Normal 3.3-5.1 [facility] Comment on above: Order Comment: 546.1 Result Comment: LABS WERE DONE 12/09/24 DOES NOT NEED REPEATED PER NURSE Performed By: #### L 500.4050, L100.0500 #### [facility] [address] [place], [address] T BILI Normal 0.00-1.30 [facility] Comment on above: Order Comment: 546.1 Result Comment: LABS WERE DONE 12/09/24 DOES NOT NEED REPEATED PER NURSE Performed By: #### L 500.4050, L100.0500 #### [facility] [address] [place], [address] T PROT Normal 5.9-8.4 [facility] Comment on above: Order Comment: 546.1 Result Comment: LABS WERE DONE 12/09/24 DOES NOT NEED REPEATED PER NURSE Performed By: #### L 500.4050, L100.0500 #### [facility] [address] [place], [address] Comprehensive Metabolic Profil Normal 133-145 [facility] Comment on above: Order Comment: 546.1 Result Comment: LABS WERE DONE 12/09/24 DOES NOT NEED REPEATED PER NURSE Performed By: #### L 500.4050, L100.0500 #### [facility] [address] [place], [address] Basic Metabolic Profile (BMP )on 12-09-2024 BUN/CRE 21.8 RATIO High 10-20 [facility] Comment on above: Order Comment: 546.1 Performed By: #### L 500.2500, L100.0500 #### [facility] [address] [place], [address] Calcium [Mass/Vol] 8.8 mg/dL Normal 7.6-11.0 [facility] Comment on above: Order Comment: 546.1 Performed By: #### L 500.2500, L100.0500 #### [facility] [address] [place], [address] Chloride [Moles/Vol] 101 mmol/L Normal 98-108 [facility] Comment on above: Order Comment: 546.1 Performed By: #### L 500.2500, L100.0500 #### [facility] [address] [place], [address] CO2 [Moles/Vol] 23.2 mmol/L Normal 21.0-32.0 [facility] Comment on above: Order Comment: 546.1 Performed By: #### L 500.2500, L100.0500 #### [facility] [address] [place], [address] Creatinine [Mass/Vol] 0.86 mg/dL Normal 0.70-1.20 [facility] Comment on above: Order Comment: 546.1 Performed By: #### L 500.2500, L100.0500 #### [facility] [address] [place], [address] GAP 11 Normal 5-15 [facility] Comment on above: Order Comment: 546.1 Performed By: #### L 500.2500, L100.0500 #### [facility] [address] [place], [address] GFR/1.73 sq M.predicted among non-blacks MDRD (S/P/Bld) [Vol rate/Area] 65 mL/min/{1.73_m2} Normal >60 [facility] Comment on above: Order Comment: 546.1 Result Comment: mL/m in/1.73m2 CKD-EPI Creatinine Equation (2020) Performed By: #### L 500.2500, L100.0500 #### [facility] [address] [place], [address] Glucose [Mass/Vol] 78 mg/dL Normal 70-99 [facility] Comment on above: Order Comment: 546.1 Performed By: #### L 500.2500, L100.0500 #### [facility] [address] [place], [address] Potassium [Moles/Vol] 4.3 mmol/L Normal 3.3-5.1 [facility] Comment on above: Order Comment: 546.1 Performed By: #### L 500.2500, L100.0500 #### [facility] [address] [place], [address] Sodium [Moles/Vol] 135 mmol/L Normal 133-145 [facility] Comment on above: Order Comment: 546.1 Performed By: #### L 500.2500, L100.0500 #### [facility] [address] [place], [address] Urea nitrogen [Mass/Vol] 19 mg/dL Normal 4-19 [facility] Comment on above: Order Comment: 546.1 Performed By: #### L 500.2500, L100.0500 #### [facility] [address] [place], [address] CBC-Complete Blood Cnt No Di ffon 12-09-2024 Erythrocyte distribution width (RBC) [Ratio] 16.4 % High 11.6-14.6 [facility] Comment on above: Order Comment: 546.1 Performed By: #### L 500.2500, L100.0500 #### [facility] [address] [place], [address] Hematocrit (Bld) [Volume fraction] 37.6 % Normal 37-47 [facility] Comment on above: Order Comment: 546.1 Performed By: #### L 500.2500, L100.0500 #### [facility] [address] [place], [address] Hemoglobin (Bld) [Mass/Vol] 12.5 g/dL Normal 12.0-15.0 [facility] Comment on above: Order Comment: 546.1 Performed By: #### L 500.2500, L100.0500 #### [facility] [address] [place], [address] MCH (RBC) [Entitic mass] 29.8 pg Normal 27.0-32.0 [facility] Comment on above: Order Comment: 546.1 Performed By: #### L 500.2500, L100.0500 #### [facility] [address] [place], [address] MCHC (RBC) [Mass/Vol] 33.2 g/dL Normal 32-36 [facility] Comment on above: Order Comment: 546.1 Performed By: #### L 500.2500, L100.0500 #### [facility] [address] [place], [address] MCV (RBC) [Entitic vol] 89.5 fL Normal 81-99 [facility] Comment on above: Order Comment: 546.1 Performed By: #### L 500.2500, L100.0500 #### [facility] [address] [place], [address] Platelet mean volume (Bld) [Entitic vol] 10.5 fL Normal 6.2-12.0 [facility] Comment on above: Order Comment: 546.1 Performed By: #### L 500.2500, L100.0500 #### [facility] [address] [place], [address] Platelets (Bld) [#/Vol] 345 10*3/uL Normal 150-450 [facility] Comment on above: Order Comment: 546.1 Performed By: #### L 500.2500, L100.0500 #### [facility] [address] [place], [address] RBC (Bld) [#/Vol] 4.20 10*6/uL Normal 4.2-5.4 [facility] Comment on above: Order Comment: 546.1 Performed By: #### L 500.2500, L100.0500 #### [facility] [address] [place], [address] RDW SD 53.6 fl High 35.1-43.9 [facility] Comment on above: Order Comment: 546.1 Performed By: #### L 500.2500, L100.0500 #### [facility] [address] [place], [address] WBC (Bld) [#/Vol] 9.3 10*3/uL Normal 4.4-11.0 [facility] Comment on above: Order Comment: 546.1 Performed By: #### L 500.2500, L100.0500 #### [facility] [address] [place], [address] CBC-Complete Blood Cnt No Di ffon 09-18-2024 Erythrocyte distribution width (RBC) [Ratio] 15.3 % High 11.6-14.6 [facility] Comment on above: Order Comment: 546 Performed By: #### L 501.9985, L500.4050, L500.4100, L506.1001, L100.0500 #### [facility] [address] [place], [address] Hematocrit (Bld) [Volume fraction] 42.2 % Normal 37-47 [facility] Comment on above: Order Comment: 546 Performed By: #### L 501.9985, L500.4050, L500.4100, L506.1001, L100.0500 #### [facility] [address] [place], [address] Hemoglobin (Bld) [Mass/Vol] 13.9 g/dL Normal 12.0-15.0 [facility] Comment on above: Order Comment: 546 Performed By: #### L 501.9985, L500.4050, L500.4100, L506.1001, L100.0500 #### [facility] [address] [place], [address] MCH (RBC) [Entitic mass] 30.0 pg Normal 27.0-32.0 [facility] Comment on above: Order Comment: 546 Performed By: #### L 501.9985, L500.4050, L500.4100, L506.1001, L100.0500 #### [facility] [address] [place], [address] MCHC (RBC) [Mass/Vol] 32.9 g/dL Normal 32-36 [facility] Comment on above: Order Comment: 546 Performed By: #### L 501.9985, L500.4050, L500.4100, L506.1001, L100.0500 #### [facility] [address] [place], [address] MCV (RBC) [Entitic vol] 90.9 fL Normal 81-99 [facility] Comment on above: Order Comment: 546 Performed By: #### L 501.9985, L500.4050, L500.4100, L506.1001, L100.0500 #### [facility] [address] [place], [address] Platelet mean volume (Bld) [Entitic vol] 10.8 fL Normal 6.2-12.0 [facility] Comment on above: Order Comment: 546 Performed By: #### L 501.9985, L500.4050, L500.4100, L506.1001, L100.0500 #### [facility] [address] [place], [address] Platelets (Bld) [#/Vol] 337 10*3/uL Normal 150-450 [facility] Comment on above: Order Comment: 546 Performed By: #### L 501.9985, L500.4050, L500.4100, L506.1001, L100.0500 #### [facility] [address] [place], [address] RBC (Bld) [#/Vol] 4.64 10*6/uL Normal 4.2-5.4 [facility] Comment on above: Order Comment: 546 Performed By: #### L 501.9985, L500.4050, L500.4100, L506.1001, L100.0500 #### [facility] [address] [place], [address] RDW SD 50.5 fl High 35.1-43.9 [facility] Comment on above: Order Comment: 546 Performed By: #### L 501.9985, L500.4050, L500.4100, L506.1001, L100.0500 #### [facility] [address] [place], [address] WBC (Bld) [#/Vol] 9.6 10*3/uL Normal 4.4-11.0 [facility] Comment on above: Order Comment: 546 Performed By: #### L 501.9985, L500.4050, L500.4100, L506.1001, L100.0500 #### [facility] [address] [place], [address] Comprehensive Metabolic Prof [facility] 09-18-2024 Albumin [Mass/Vol] 3.4 g/dL Normal 3.4-4.8 [facility] Comment on above: Order Comment: 546 Performed By: #### L 501.9985, L500.4050, L500.4100, L506.1001, L100.0500 #### [facility] [address] [place], [address] Albumin/Globulin [Mass ratio] 1.4 {ratio} Normal 0.9-2.4 [facility] Comment on above: Order Comment: 546 Performed By: #### L 501.9985, L500.4050, L500.4100, L506.1001, L100.0500 #### [facility] [address] [place], [address] ALK PHOS 43 U/L Normal 35-104 [facility] Comment on above: Order Comment: 546 Performed By: #### L 501.9985, L500.4050, L500.4100, L506.1001, L100.0500 #### [facility] [address] [place], [address] ALT [Catalytic activity/Vol] 9 U/L Normal <=34 [facility] Comment on above: Order Comment: 546 Performed By: #### L 501.9985, L500.4050, L500.4100, L506.1001, L100.0500 #### [facility] [address] [place], [address] AST [Catalytic activity/Vol] 20 U/L Normal <=31 [facility] Comment on above: Order Comment: 546 Performed By: #### L 501.9985, L500.4050, L500.4100, L506.1001, L100.0500 #### [facility] [address] [place], [address] Bilirubin [Mass/Vol] 0.37 mg/dL Normal 0.00-1.30 [facility] Comment on above: Order Comment: 546 Performed By: #### L 501.9985, L500.4050, L500.4100, L506.1001, L100.0500 #### [facility] [address] [place], [address] BUN/CRE 27.9 RATIO High 10-20 [facility] Comment on above: Order Comment: 546 Performed By: #### L 501.9985, L500.4050, L500.4100, L506.1001, L100.0500 #### [facility] [address] [place], [address] Calcium [Mass/Vol] 8.8 mg/dL Normal 7.6-11.0 [facility] Comment on above: Order Comment: 546 Performed By: #### L 501.9985, L500.4050, L500.4100, L506.1001, L100.0500 #### [facility] [address] [place], [address] Chloride [Moles/Vol] 108 mmol/L Normal 98-108 [facility] Comment on above: Order Comment: 546 Performed By: #### L 501.9985, L500.4050, L500.4100, L506.1001, L100.0500 #### [facility] [address] [place], [address] CO2 [Moles/Vol] 23.5 mmol/L Normal 21.0-32.0 [facility] Comment on above: Order Comment: 546 Performed By: #### L 501.9985, L500.4050, L500.4100, L506.1001, L100.0500 #### [facility] [address] [place], [address] Creatinine [Mass/Vol] 0.82 mg/dL Normal 0.70-1.20 [facility] Comment on above: Order Comment: 546 Performed By: #### L 501.9985, L500.4050, L500.4100, L506.1001, L100.0500 #### [facility] [address] [place], [address] GAP 10 Normal 5-15 [facility] Comment on above: Order Comment: 546 Performed By: #### L 501.9985, L500.4050, L500.4100, L506.1001, L100.0500 #### [facility] [address] [place], [address] GFR/1.73 sq M.predicted among non-blacks MDRD (S/P/Bld) [Vol rate/Area] 69 mL/min/{1.73_m2} Normal >60 [facility] Comment on above: Order Comment: 546 Result Comment: mL/m in/1.73m2 CKD-EPI Creatinine Equation (2020) Performed By: #### L 501.9985, L500.4050, L500.4100, L506.1001, L100.0500 #### [facility] [address] [place], [address] Globulin (S) [Mass/Vol] 2.5 g/dL Normal 2.2-4.2 [facility] Comment on above: Order Comment: 546 Performed By: #### L 501.9985, L500.4050, L500.4100, L506.1001, L100.0500 #### [facility] [address] [place], [address] Glucose [Mass/Vol] 88 mg/dL Normal 70-99 [facility] Comment on above: Order Comment: 546 Performed By: #### L 501.9985, L500.4050, L500.4100, L506.1001, L100.0500 #### [facility] [address] [place], [address] Potassium [Moles/Vol] 4.1 mmol/L Normal 3.3-5.1 [facility] Comment on above: Order Comment: 546 Performed By: #### L 501.9985, L500.4050, L500.4100, L506.1001, L100.0500 #### [facility] [address] [place], [address] Sodium [Moles/Vol] 141 mmol/L Normal 133-145 [facility] Comment on above: Order Comment: 546 Performed By: #### L 501.9985, L500.4050, L500.4100, L506.1001, L100.0500 #### [facility] [address] [place], [address] T PROT 5.8 g/dL Low 5.9-8.4 [facility] Comment on above: Order Comment: 546 Performed By: #### L 501.9985, L500.4050, L500.4100, L506.1001, L100.0500 #### [facility] [address] [place], [address] Urea nitrogen [Mass/Vol] 23 mg/dL High 4-19 [facility] Comment on above: Order Comment: 546 Performed By: #### L 501.9985, L500.4050, L500.4100, L506.1001, L100.0500 #### [facility] [address] [place], [address] Hemoglobin A1con 09-18-2024 HbA1c (Bld) [Mass fraction] 5.5 % Normal <=5.6 [facility] Comment on above: Order Comment: 546 Result Comment: Norm al < 5.7 % Prediabetic 5.7 - 6.4 % Diabetic >or= 6.5 % Please note range changes. Performed By: #### L 501.9985, L500.4050, L500.4100, L506.1001, L100.0500 #### [facility] [address] [place], [address] Lipid Profileon 09-18-2024 CHOL:HDL 2.43 Normal [facility] Comment on above: Order Comment: 546 Performed By: #### L 501.9985, L500.4050, L500.4100, L506.1001, L100.0500 #### [facility] [address] [place], [address] Cholesterol [Mass/Vol] 136 mg/dL Normal <=200 [facility] Comment on above: Order Comment: 546 Result Comment: Chol esterol level, Desirable <200 mg/dL Borderline high cholesterol 200-239 mg/dL High cholesterol >=240 mg/dL Recommendations of the NCEP Adult Treatment Panel for the following risk-cutoff thresholds for the [place] population. Performed By: #### L 501.9985, L500.4050, L500.4100, L506.1001, L100.0500 #### [facility] [address] [place], [address] Cholesterol in HDL [Mass/Vol] 56 mg/dL Normal [facility] Comment on above: Order Comment: 546 Result Comment: Lyric onal Cholesterol Education Program (NCEP) guidelines: <40 mg/dL: Low HDL-cholesterol (major risk factor for CHD) >= 60 mg/dL: High HDL-cholesterol (negative risk factor for CHD) HDL-cholesterol is affected by a number of factors, e.g. smoking, exercise, hormones, sex and age. Performed By: #### L 501.9985, L500.4050, L500.4100, L506.1001, L100.0500 #### [facility] [address] [place], [address] Cholesterol in LDL [Mass/Vol] 67 mg/dL Normal [facility] Comment on above: Order Comment: 546 Result Comment: Bord dpxqmi=944-775 mg/dL Higher Chyi=149 mg/dL or greater Performed By: #### L 501.9985, L500.4050, L500.4100, L506.1001, L100.0500 #### [facility] [address] [place], [address] Cholesterol in VLDL [Mass/Vol] 14 mg/dL Normal 5-40 [facility] Comment on above: Order Comment: 546 Performed By: #### L 501.9985, L500.4050, L500.4100, L506.1001, L100.0500 #### [facility] [address] [place], [address] Triglyceride [Mass/Vol] 68 mg/dL Normal [facility] Comment on above: Order Comment: 546 Result Comment: The drugs N-Acetylcysteine and Metamizole may falsely depress this assay. Normal range: <150 mg/dL Borderline High: 150-199 mg/dL High: 200-499 mg/dL Very High: >500 mg/dL Performed By: #### L 501.9985, L500.4050, L500.4100, L506.1001, L100.0500 #### [facility] [address] [place], [address] Vitamin D,25 Hydroxyon 09-18 Vitamin D 25-OH 52.7 ng/mL Normal 30-100 [facility] Comment on above: Order Comment: 546 Result Comment: Alicia min D Status Deficiency: <20 ng/mL (50nmol/L) Insufficiency: 20-30 ng/mL (50-75 nmol/L) Sufficiency: 30-100 ng/mL (75-250 nmol/L) Toxicity: >100 ng/mL (>250 nmol/L) Performed By: #### L 501.9985, L500.4050, L500.4100, L506.1001, L100.0500 #### [facility] [address] [place], [place], [id number] US DOPPLER CAROTIDon 020 US DOPPLER CAROTID Patient Info Name: NA GOOD Age: 84 years : 1935 Gender: Female Exam Date: 02/03/2020 2:02 PM Site Location: [facility] Patient Status: Outpatient [employer] Worker: Tatyana Olmos, VILMA, RDMS (AB), RVT Referring Physician: RUBIN CHIRINOS ; Indications R09.89 - Other specified symptoms and signs involving the circulatory and respiratory systems Procedure Description 79399 Duplex examination using B-mode, color and spectral [...] Morris DO on 02/03/2020 03:27 PM Normal [facility] Ambulatory US DOPPLER CAROTID Patient Info Name: NA GOOD Age: 84 years : 1935 Gender: Female Exam Date: 02/03/2020 2:02 PM Site Location: [facility] Patient Status: Outpatient [employer] Worker: Tatyana Olmos, VILMA, RDMS (AB), RVT Referring Physician: RUBIN CHIRINOS ; Indications R09.89 - Other specified symptoms and signs involving the circulatory and respiratory systems Procedure Description 79530 Duplex examination using B-mode, color and spectral [...] SunFeb 03, 2020 3:27:40 PM EDT Normal [facility] Ambulatory Patient Info Name: NA GOOD Age: 84 years : 1935 Gender: Female Exam Date: 02/03/2020 2:02 PM Site Location: [facility] Patient Status: Outpatient [employer] Worker: Tatyana Olmos, VILMA, RDMS (AB), RVT Referring Physician: RUBIN CHIRINOS ; Indications R09.89 - Other specified symptoms and signs involving the circulatory and respiratory systems Procedure Description 08346 Duplex examination using B-mode, color and spectral [...] HAM Morris DO on 02/03/2020 03:27 PM [facility] Interface, Rad In Heartlab Xper Echopacs - 02/03/2020 3:27 PM EDT Patient Info Name: NA GOOD Age: 84 years : 1935 Gender: Female Exam Date: 02/03/2020 2:02 PM Site Location: [facility] Patient Status: Outpatient [employer] Worker: Tatyana Olmos, VILMA, RDMS (AB), RVT Referring Physician: RUBIN CHIRINOS ; Indications R09.89 - Other specified symptoms and signs involving the circulatory and respiratory systems Procedure Description 71062 Duplex examination using B-mode, color and spectral [...] HAM Morris DO on 02/03/2020 03:27 PM [facility] ECG 12-LEADon 01-13-2019 Atrial Rate [facility] P Calera [facility] P-R Interval [facility] Q-T Interval [facility] Q-T Interval (corrected) [facility] QRS Duration [facility] QTC Calculation (Bezet) [facility] Ventricular Rate [facility] ECG 12 Leadon 01-15-2018 Atrial Rate Invalid Interpretation Code [facility] P Calera Invalid Interpretation Code [facility] P-R Interval Invalid Interpretation Code [facility] Q-T Interval Invalid Interpretation Code [facility] Q-T Interval (corrected) Invalid Interpretation Code [facility] QRS Duration Invalid Interpretation Code [facility] QTC Calculation (Bezet) Invalid Interpretation Code [facility] R Calera Invalid Interpretation Code [facility] T Calera Invalid Interpretation Code [facility] Ventricular Rate Invalid Interpretation Code [facility] CBC w/o Diffon 12-19-2017 Erythrocyte distribution width Auto Ratio (RBC) 14.2 % Normal 10.0-14.4 [facility] Comment on above: Performed By: #### L IPID, CMET, TSH, CBCWOD ####Unless otherwise noted, all testing performed by [address] [phone]: [id number] Director: Alverto Fitzgerald M.D. Hematocrit Auto Volume Fraction (Bld) 44.2 % Normal 34.4-44.8 [facility] Comment on above: Performed By: #### L IPID, CMET, TSH, CBCWOD ####Unless otherwise noted, all testing performed by [address] [phone]: [id number] Director: Alverto Fitzgerald M.D. Hemoglobin mass conc (Bld) 14.6 g/dL Normal 11.6-15.4 [facility] Comment on above: Performed By: #### L IPID, CMET, TSH, CBCWOD ####Unless otherwise noted, all testing performed by [address] [phone]: [id number] Director: Alverto Fitzgerald M.D. MCH Auto Entitic mass (RBC) 29.4 pg Normal 27.9-33.9 [facility] Comment on above: Performed By: #### L IPID, CMET, TSH, CBCWOD ####Unless otherwise noted, all testing performed by [address] [phone]: [id number] Director: Alverto Fitzgerald M.D. MCHC Auto mass conc (RBC) 33.0 g/dL Low 33.1-35.1 [facility] Comment on above: Performed By: #### L IPID, CMET, TSH, CBCWOD ####Unless otherwise noted, all testing performed by [address] [phone]: [id number] Director: Alverto Fitzgerald M.D. MCV Auto Entitic volume (RBC) 89.1 fL Normal 82.6-98.9 [facility] Comment on above: Performed By: #### L IPID, CMET, TSH, CBCWOD ####Unless otherwise noted, all testing performed by [address] [phone]: [id number] Director: Alverto Fitzgerald M.D. Platelet mean volume Auto Entitic volume (Bld) 8.6 fL Normal 7.0-10.6 [facility] Comment on above: Performed By: #### L IPID, CMET, TSH, CBCWOD ####Unless otherwise noted, all testing performed by [address] [phone]: [id number] Director: Alverto Fitzgerald M.D. Platelets Auto #/vol (Bld) 349 K/mcL Normal 162-402 [facility] Comment on above: Performed By: #### L IPID, CMET, TSH, CBCWOD ####Unless otherwise noted, all testing performed by [address] [phone]: [id number] Director: Alverto Fitzgerald M.D. RBC Auto #/vol (Bld) 4.96 M/mcL Normal 3.7-5.0 [facility] Comment on above: Performed By: #### L IPID, CMET, TSH, CBCWOD ####Unless otherwise noted, all testing performed by [address] [phone]: [id number] Director: Alverto Fitzgerald M.D. WBC Auto #/vol (Bld) 9.0 K/mcL Normal 3.4-10.6 [facility] Comment on above: Performed By: #### L IPID, CMET, TSH, CBCWOD ####Unless otherwise noted, all testing performed by [address] [phone]: [id number] Director: Alverto Fitzgerald M.D. Comprehensive Metabolic Pane [facility] 12-19-2017 Albumin mass conc 3.7 g/dL Normal 3.2-5.2 [facility] Comment on above: Performed By: #### L IPID, CMET, TSH, CBCWOD ####Unless otherwise noted, all testing performed by [address] [phone]: [id number] Director: Alverto Fitzgerald M.D. ALP enzyme act/vol 54 U/L Normal 40-150 [facility] Comment on above: Performed By: #### L IPID, CMET, TSH, CBCWOD ####Unless otherwise noted, all testing performed by [place] [phone]: [id number] Director: Alverto Fitzgerald M.D. ALT enzyme act/vol 15 U/L Normal 14-65 [facility] Comment on above: Result Comment: This test result might be falsely depressed or falsely elevated onsamples drawn from patients taking Sulfasalazine and Sulfapyridine.Venipuncture should occur prior to taking either of these drugs. Performed By: #### L IPID, CMET, TSH, CBCWOD ####Unless otherwise noted, all testing performed by [address] [phone]: [id number] Director: Alverto Fitzgerald M.D. AST enzyme act/vol 15 U/L Normal 0-45 [facility] Comment on above: Result Comment: This test result might be falsely depressed or falsely elevated onsamples drawn from patients taking Sulfasalazine and Sulfapyridine.Venipuncture should occur prior to taking either of these drugs. Performed By: #### L IPID, CMET, TSH, CBCWOD ####Unless otherwise noted, all testing performed by [address] [phone]: [id number] Director: Alverto Fitzgerald M.D. Bilirubin mass conc 0.5 mg/dL Normal 0.3-1.2 [facility] Comment on above: Performed By: #### L IPID, CMET, TSH, CBCWOD ####Unless otherwise noted, all testing performed by [address] [phone]: [id number] Director: Alverto Fitzgerald M.D. Calcium mass conc 8.9 mg/dL Normal 8.4-10.2 [facility] Comment on above: Performed By: #### L IPID, CMET, TSH, CBCWOD ####Unless otherwise noted, all testing performed by [address] [phone]: [id number] Director: Alverto Fitzgerald M.D. Chloride molar conc 106 mmol/L Normal 98-108 [facility] Comment on above: Performed By: #### L IPID, CMET, TSH, CBCWOD ####Unless otherwise noted, all testing performed by [address] [phone]: [id number] Director: Alverto Fitzgerald M.D. CO2 molar conc 29 mmol/L Normal 21-32 [facility] Comment on above: Performed By: #### L IPID, CMET, TSH, CBCWOD ####Unless otherwise noted, all testing performed by [address] [phone]: [id number] Director: Alverto Fitzgerald M.D. Creatinine mass conc 0.76 mg/dL Normal 0.60-1.20 [facility] Comment on above: Performed By: #### L IPID, CMET, TSH, CBCWOD ####Unless otherwise noted, all testing performed by [address], [place] [phone]: [id number] Director: Alverto Fitzgerald M.D. GFR/1.73 sq M predicted among blacks MDRD vol rate/area (S/P/Bld) mL/min/{1.73_m2} Normal [facility] Comment on above: Result Comment: Afri can Romanian GFR Calc Performed By: #### L IPID, CMET, TSH, CBCWOD ####Unless otherwise noted, all testing performed by [address] [phone]: [id number] Director: Alverto Fitzgerald M.D. GFR/1.73 sq M predicted among non-blacks MDRD vol rate/area (S/P/Bld) mL/min/{1.73_m2} Normal [facility] Comment on above: Result Comment: Non- GFR [...] ####Unless otherwise noted, all testing performed by [address] [phone]: [id number] Director: Alverto Fitzgerald M.D. Glucose mass conc 84 mg/dL Normal 70-99 [facility] Comment on above: Result Comment: This test result might be falsely depressed or falsely elevated onsamples drawn from patients taking Sulfasalazine and Sulfapyridine.Venipuncture should occur prior to taking either of these drugs. Performed By: #### L IPID, CMET, TSH, CBCWOD ####Unless otherwise noted, all testing performed by [address] [phone]: [id number] Director: Alverto Fitzgerald M.D. Potassium molar conc 4.1 mmol/L Normal 3.5-5.1 [facility] Comment on above: Performed By: #### L IPID, CMET, TSH, CBCWOD ####Unless otherwise noted, all testing performed by [address] [phone]: [id number] Director: Alverto Fitzgerald M.D. Protein mass conc 7.2 g/dL Normal 6.0-8.0 [facility] Comment on above: Performed By: #### L IPID, CMET, TSH, CBCWOD ####Unless otherwise noted, all testing performed by [address] [phone]: [id number] Director: Alverto Fitzgerald M.D. Sodium molar conc 142 mmol/L Normal 135-145 [facility] Comment on above: Performed By: #### L IPID, CMET, TSH, CBCWOD ####Unless otherwise noted, all testing performed by [address] [phone]: [id number] Director: Alverto Fitzgerald M.D. Urea nitrogen mass conc 19 mg/dL Normal 8-25 [facility] Comment on above: Performed By: #### L IPID, CMET, TSH, CBCWOD ####Unless otherwise noted, all testing performed by [address] [phone]: [id number] Director: Alverto Fitzgerald M.D. Lipid Panelon 12-19-2017 Cholesterol in HDL mass conc 68 mg/dL High 40-59 [facility] Comment on above: Performed By: #### L IPID, CMET, TSH, CBCWOD ####Unless otherwise noted, all testing performed by [place] [phone]: [id number] Director: Alverto Fitzgerald M.D. Cholesterol in LDL mass conc 150 mg/dL Normal 10-150 [facility] Comment on above: Performed By: #### L IPID, CMET, TSH, CBCWOD ####Unless otherwise noted, all testing performed by [place] [phone]: [id number] Director: Alverto Fitzgerald M.D. Cholesterol in VLDL mass conc 24 mg/dL Normal 5-40 [facility] Comment on above: Performed By: #### L IPID, CMET, TSH, CBCWOD ####Unless otherwise noted, all testing performed by [address] [phone]: [id number] Director: Alverto Fitzgerald M.D. Cholesterol mass conc 243 mg/dL High 100-199 [facility] Comment on above: Performed By: #### L IPID, CMET, TSH, CBCWOD ####Unless otherwise noted, all testing performed by [address] [phone]: [id number] Director: Alverto Fitzgerald M.D. Cholesterol.total/Cho lesterol in HDL mass ratio 3.6 {ratio} Normal 3.2-5.0 [facility] Comment on above: Result Comment: Robert harley Coronary Heart Disease Risk Factor (CHDRF):Average risk= 4.41/2 Average risk= 3.32 times Average risk= 7.1 Performed By: #### L IPID, CMET, TSH, CBCWOD ####Unless otherwise noted, all testing performed by [address] [phone]: [id number] Director: Alverto Fitzgerald M.D. Triglyceride mass conc 121 mg/dL High 25-120 [facility] Comment on above: Performed By: #### L IPID, CMET, TSH, CBCWOD ####Unless otherwise noted, all testing performed by [address] [phone]: [id number] Director: Alverto Fitzgerald M.D. Microalbumin, Ur Random Pane epifanio 12-19-2017 Creatinine, Urine Random 124.00 mg/dL Normal [facility] Comment on above: Result Comment: No e stablished reference range. Performed By: #### M KANDI ####Unless otherwise noted, all testing performed by [address] [phone]: [id number] Director: Alverto Fitzgerald M.D. MIALB/Creatinine Ratio 9 Normal 0.0-25.0 [facility] Comment on above: Performed By: #### M KANDI ####Unless otherwise noted, all testing performed by [address] [phone]: [id number] Director: Alverto Fitzgerald M.D. Microalbumin, Urine Random 1.1 mg/dL Normal 0.0-1.8 [facility] Comment on above: Performed By: #### M IALBURR ####Unless otherwise noted, all testing performed by [address] [id number]: [id number] Director: Alverto Fitzgerald M.D. TSHon 12-19-2017 T4 free mass conc 1.1 ng/dL Normal 0.7-1.7 [facility] [place] Comment on above: Result Comment: Samp les from patients routinely receiving high dose biotin therapy(100-300 mg/day) may show falsely increased results. Please correlateclinically. Performed By: #### L IPID, CMET, TSH, CBCWOD ####Unless otherwise noted, all testing performed by [address] [id number]: [id number] Director: Alverto Fitzgerald M.D. Thyrotropin Qn 0.22 uIU/mL Low 0.320-5.000 [facility] Comment on above: Result Comment: Samp les from patients routinely receiving high dose biotin therapy(100-300 mg/day) may show falsely decreased results. Please correlateclinically. Performed By: #### L IPID, CMET, TSH, CBCWOD ####Unless otherwise noted, all testing performed by [address] [id number]: [id number] Director: Alverto Fitzgerald M.D. CBC and Differentialon 12-19 Basophils 1.1 % Invalid Interpretation Code [facility] Basophils 0.1 K/mcL Invalid Interpretation Code 0 - 0.2 [facility] Eosinophils 0.3 K/mcL Invalid Interpretation Code 0 - 0.5 [facility] Erythrocytes (RBC) 4.79 M/mcL Invalid Interpretation Code 3.7 - 5.0 [facility] Hematocrit (HCT) 42.7 % Invalid Interpretation Code 34.4 - 44.8 % [facility] Hemoglobin (HGB) 14.1 g/dL Invalid Interpretation Code 11.6 - 15.4 g/dL [facility] Lymphocytes 2.4 K/mcL Invalid Interpretation Code 1.0 - 3.7 [facility] MCH 29.5 pg Invalid Interpretation Code 27.9 - 33.9 pg [facility] MCHC 33.1 g/dL Invalid Interpretation Code 33.1 - 35.1 g/dL [facility] MCV 89.2 fL Invalid Interpretation Code 82.6 - 98.9 [facility] Monocytes 0.6 K/mcL Invalid Interpretation Code 0.1 - 0.6 [facility] Neutrophils 4.4 K/mcL Invalid Interpretation Code 1.2 - 6.9 [facility] Platelet mean volume (PMV) 8.7 fL Invalid Interpretation Code 7.0 - 10.6 [facility] Platelets 278 K/mcL Invalid Interpretation Code 162 - 402 [facility] RDW-CA 14.3 % Invalid Interpretation Code 10 - 14.4 % [facility] Segmented Neut 56.5 % Invalid Interpretation Code [facility] T8 suppressor/100 cells 4.2 10*3/uL Invalid Interpretation Code [facility] T8 suppressor/100 cells 30.3 10*3/uL Invalid Interpretation Code [facility] T8 suppressor/100 cells 7.9 10*3/uL Invalid Interpretation Code [facility] WBC (Leukocytes) 7.8 K/mcL Invalid Interpretation Code 3.4 - 10.6 [facility] Comprehensive Metabolic Pane epifanio 12-19-2016 Alanine aminotransferase (ALT) 20 U/L Invalid Interpretation Code 14 - 65 U/L [facility] Albumin 3.6 g/dL Invalid Interpretation Code 3.2 - 5.2 g/dL [facility] Alkaline phosphatase (ALP) 39 U/L Low 40 - 150 U/L [facility] Aspartate aminotransferase (AST) 14 U/L Invalid Interpretation Code 0 - 45 U/L [facility] Calcium 9.4 mg/dL Invalid Interpretation Code 8.4 - 10.2 mg/dL [facility] Chloride 107 mmol/L Invalid Interpretation Code 98 - 108 mmol/L [facility] CO2 30 mmol/L Invalid Interpretation Code 21 - 32 mmol/L [facility] Creatinine 0.72 mg/dL Invalid Interpretation Code 0.6 - 1.2 mg/dL [facility] eGFR (black) mL/min/{1.73_m2} Invalid Interpretation Code ml/min/1.73s q.m [facility] eGFR (non-black) mL/min/{1.73_m2} Invalid Interpretation Code ml/min/1.73s q.m [facility] Glucose 86 mg/dL Invalid Interpretation Code 70 - 99 mg/dL [facility] Potassium 4.3 mmol/L Invalid Interpretation Code 3.5 - 5.1 mmol/L [facility] Protein 6.8 g/dL Invalid Interpretation Code 6 - 8 g/dL [facility] Sodium 145 mmol/L Invalid Interpretation Code 135 - 145 mmol/L [facility] Urea nitrogen 17 mg/dL Invalid Interpretation Code 8 - 25 mg/dL [facility] Urine, bilirubin presence 0.6 mg/dL Invalid Interpretation Code 0.3 - 1.2 mg/dL [facility] Lipid Panelon 12-19-2016 Cholesterol 242 mg/dL High 100 - 199 mg/dL [facility] Cholesterol to HDL Ratio 3.2 {ratio} Invalid Interpretation Code 3.2 - 5.0 [facility] HDL Cholesterol 76 mg/dL High 40 - 59 mg/dL [facility] Interpretation and review of laboratory results Abnormal Invalid Interpretation Code [facility] LDL Cholesterol 150 mg/dL Invalid Interpretation Code 10 - 150 mg/dL [facility] Triglyceride 85 mg/dL Invalid Interpretation Code 25 - 120 mg/dL [facility] VLDL 17 mg/dL Invalid Interpretation Code 5 - 40 mg/dL [facility] Vital Signs Date Time Vital Sign Value Performing Clinician Facility 07-28-2020 13:54-0400 BMI (Body Mass Index) 22.43 kg/m2 [place]veland Ludwig [facility] 07-28-2020 13:54-0400 Body Temperature 98.71 [degF] David [place] [facility] 07-28-2020 13:54-0400 Body weight 57.42 kg David [place] [facility] 07-28-2020 13:54-0400 BP Diastolic 82 mm[Hg] David [facility] 07-28-2020 13:54-0400 BP Systolic 139 mm[Hg] David Ludwig [facility] 07-28-2020 13:54-0400 Height 160 cm David Ludwig [facility] 07-28-2020 13:54-0400 Pulse (Heart Rate) 84 /min David Ludwig [facility] 07-28-2020 13:54-0400 Pulse Oximetry 97 % David Ludwig [facility] 01-15-2020 14:24-0400 BMI (Body Mass Index) 22.5 kg/m2 Rubin Chirinos [facility] 01-15-2020 14:24-0400 Body weight 57.61 kg Rubin Chirinos [facility] 01-15-2020 14:24-0400 BP Diastolic 78 mm[Hg] Rubin Chirinos [facility] 01-15-2020 14:24-0400 BP Systolic 136 mm[Hg] Rubinyara Chirinos [facility] 01-15-2020 14:24-0400 Height 160 cm Rubinyara Chirinos [facility] 01-15-2020 14:24-0400 Pulse (Heart Rate) 64 /min Rubinyara Chirinos [facility] 01-15-2020 14:24-0400 Pulse Oximetry 97 % Rubin Chirinos [facility] 12-08-2019 11:20-0400 BMI (Body Mass Index) 22.5 kg/m2 David Ludwig [facility] 12-08-2019 11:20-0400 Body Temperature 97.81 [degF] David Ludwig [facility] 12-08-2019 11:20-0400 Body weight 57.61 kg David Ludwig [facility] 12-08-2019 11:20-0400 BP Diastolic 70 mm[Hg] David Ludwig [facility] 12-08-2019 11:20-0400 BP Systolic 133 mm[Hg] David Ludwig [facility] 12-08-2019 11:20-0400 Height 160 cm David Ludwig [facility] 12-08-2019 11:20-0400 Pulse (Heart Rate) 98 /min David Ludwig [facility] 06-16-2019 09:58-0500 BP Diastolic 74 mm[Hg] David Ludwig [facility] 06-16-2019 09:58-0500 BP Systolic 130 mm[Hg] David Ludwig [facility] 06-16-2019 09:58-0500 Pulse (Heart Rate) 82 /min David Ludwig [facility] 06-16-2019 09:58-0500 Pulse Oximetry 97 % David Ludwig [facility] 06-16-2019 09:58-0500 Respiratory Rate 18 /min David Ludwig [facility] 06-16-2019 09:54-0500 BMI (Body Mass Index) 23.13 kg/m2 David Ludwig [facility] 06-16-2019 09:54-0500 Body Temperature 97.9 [degF] David Ludwig [facility] 06-16-2019 09:54-0500 Body weight 59.24 kg David Ludwig [facility] 06-16-2019 09:54-0500 Height 160 cm David Ludwig [facility] 01-13-2019 11:15-0400 BMI (Body Mass Index) 22.14 kg/m2 Rubin Chirinos [facility] 01-13-2019 11:15-0400 Body weight 56.7 kg Rubinyara Chirinos [facility] 01-13-2019 11:15-0400 BP Diastolic 71 mm[Hg] Rubin Chirinos [facility] 01-13-2019 11:15-0400 BP Systolic 140 mm[Hg] Rubinyara Chirinos [facility] 01-13-2019 11:15-0400 Height 160 cm Rubin Chirinos [facility] 01-13-2019 11:15-0400 Pulse (Heart Rate) 80 /min Rubinyara Chirinos [facility] 01-13-2019 11:15-0400 Pulse Oximetry 99 % Rubinyara Chirinos [facility] 12-04-2018 09:08-0400 BMI (Body Mass Index) 22.43 kg/m2 Ceasar Arce [facility] 12-04-2018 09:08-0400 Body weight 57.42 kg Ceasar Arce [facility] 12-04-2018 09:08-0400 BP Diastolic 80 mm[Hg] Ceasar [place] [facility] 12-04-2018 09:08-0400 BP Systolic 167 mm[Hg] Ceasar [place] [facility] 12-04-2018 09:08-0400 Height 160 cm Ceasardario Arce [facility] 12-04-2018 09:08-0400 Pulse (Heart Rate) 74 /[facility] 09:08-0400 Pulse Oximetry 98 % Ceasar Arce [facility] 06-26-2018 11:00-0500 BP Diastolic 77 mm[Hg] [place] Ludwig [facility] 06-26-2018 11:00-0500 BP Systolic 129 mm[Hg] David Ludwig [facility] 06-26-2018 11:00-0500 Pulse (Heart Rate) 66 /min David Ludwig [facility] 06-26-2018 11:00-0500 Pulse Oximetry 96 % [place] Ludwig [facility] 06-26-2018 10:56-0500 BMI (Body Mass Index) 22.18 kg/m2 [place] Ludwig [facility] 06-26-2018 10:56-0500 Body Temperature 98.2 [degF] David Ludwig [facility] 06-26-2018 10:56-0500 Height 160 cm David Ludwig [facility] 06-26-2018 10:56-0500 Weight 56.79 kg David[place] Ludwig [facility] 01-15-2018 10:01-0400 BMI (Body Mass Index) 22.32 kg/m2 [facility] 01-15-2018 10:01-0400 BP Diastolic 80 mm[Hg] [facility] 01-15-2018 10:01-0400 BP Systolic 152 mm[Hg] [facility] 01-15-2018 10:01-0400 Height 160 cm [facility] 01-15-2018 10:01-0400 Pulse (Heart Rate) 81 /min [facility] 01-15-2018 10:01-0400 Pulse Oximetry 98 % [facility] 01-15-2018 10:01-0400 Weight 57.15 kg [facility] 12-27-2017 10:27-0400 BMI (Body Mass Index) 22.27 kg/m2 Davidcle[place] Ludwig [facility] 12-27-2017 10:27-0400 Body Temperature 97.59 [degF] David Ludwig [facility] 12-27-2017 10:27-0400 BP Diastolic 75 mm[Hg] David Ludwig [facility] 12-27-2017 10:27-0400 BP Systolic 159 mm[Hg] Davidcle[place] Ludwig [facility] 12-27-2017 10:270400 Height 160 cm David Ludwig [facility] 12-27-2017 10:27-0400 Pulse (Heart Rate) 82 /min David Ludwig [facility] 12-27-2017 10:27-0400 Pulse Oximetry 97 % David Ludwig [facility] 12-27-2017 10:27-0400 Respiratory Rate 12 /min David Ludwig [facility] 12-27-2017 10:27-0400 Weight 57.02 kg David Ludwig [facility] 06-26-2017 09:46-0500 BMI (Body Mass Index) 23.06 kg/m2 Alfredo [facility] 06-26-2017 09:46-0500 Body Temperature 98.29 [degF] [facility] 06-26-2017 09:46-0500 BP Diastolic 80 mm[Hg] [facility] 06-26-2017 09:46-0500 BP Systolic 140 mm[Hg] [facility] 06-26-2017 09:46-0500 Height 160 cm [facility] 06-26-2017 09:46-0500 Pulse (Heart Rate) 68 /min [facility] 06-26-2017 09:46-0500 Weight 59.06 kg [facility] 06-20-2017 14:38-0500 BMI (Body Mass Index) 23.03 kg/m2 Ceasar Arce [facility] 06-20-2017 14:38-0500 BP Diastolic 79 mm[Hg] Ceasar [place] [facility] 06-20-2017 14:38-0500 BP Systolic 160 mm[Hg] Ceasar [place] [facility] 06-20-2017 14:38-0500 Height 160 cm [place]asardaroi [place] [facility] 06-20-2017 14:38-0500 Pulse (Heart Rate) 67 /min Ceasardario Alleno [facility] 06-20-2017 14:38-0500 Pulse Oximetry 99 % [facility]-2017 14:38-0500 Weight 58.97 kg Ceasar Arce [facility] 01-08-2017 10:21-0400 BMI (Body Mass Index) 22.32 kg/m2 Rubin Chirinos [facility] Phone: 01-08-2017 10:21-0400 BP Diastolic 85 mm[Hg] Rubin Chirinos [facility] Work Phone: 01-08-2017 10:21-0400 BP Systolic 165 mm[Hg] Rubin Chirinos [facility] Work Phone: 01-08-2017 10:21-0400 Height 160 cm Rubin Chirinos [facility] Work Phone: 01-08-2017 10:21-0400 Pulse (Heart Rate) 64 /min Rubin Chirinos [facility] Work Phone: 01-08-2017 10:21-0400 Pulse Oximetry 97 % Rubin Chirinos [facility] Work Phone: 01-08-2017 10:21-0400 Weight 57.15 kg Rubin Chirinos [facility] Work Phone: 12-13-2016 14:18-0400 BMI (Body Mass Index) 22.44 kg/m2 Ceasar [place] [facility] Work Phone: 12-13-2016 14:18-0400 BP Diastolic 81 mm[Hg] Ceasar [place] [facility] Work Phone: 12-13-2016 14:18-0400 BP Systolic 167 mm[Hg] Ceasar [place] [facility] Work Phone: 12-13-2016 14:18-0400 Height 160 cm Ceasar [place] [facility] Work Phone: 12-13-2016 14:18-0400 Pulse (Heart Rate) 69 /min Ceasar Dmitryhodko [facility] Work Phone: 12-13-2016 14:18-0400 Pulse Oximetry 99 % Ceasar [place] [facility] Work Phone: 12-13-2016 14:18-0400 Weight 57.47 kg Ceasar Arce [facility] Work Phone: Encounters Encounter Date Encounter Type Care Provider Facility Start: 03-02-2025 Evaluation and manag ement of inpatient BISMARK SALES Facility:[facility] Start: 02-25-2025 End: 02-25-2025 ambulatory LIDIA ARMENTA Facility:[facility] Start: 02-24-2025 ambulatory Alexey Deperro OLS Facili ty:[facility] Start: 02-19-2025 ambulatory Alexey Deperro OLS Facili ty:[facility] Start: 02-04-2025 End: 02-04-2025 ambulatory JOVANI COCHRAN Facility:[facility] Start: 01-27-2025 End: 01-29-2025 Evaluation and management of inpatient JOHNSON WATSON Facility:[facility] Start: 01-05-2025 ambulatory Alexey Deperro OLS Facili ty:[facility] Start: 12-29-2024 ambulatory Alexey Deperro OLS Facili ty:[facility] Start: 12-24-2024 End: 12-27-2024 Evaluation and management of inpatient JOHNSON WATSON Facility:[facility] Start: 12-09-2024 ambulatory Alexey Deperro OLS Facili ty:[facility] Start: 09-18-2024 ambulatory Alexey Deperro OLS Facili ty:[facility] Start: 01-14-2021 [facility]ulatory [facility] Start: 12-07-2020 ambulatory [facility] Start: 09-21-2020 End: 09-21-2020 Refill Shante Hargrove LPN [facility] Comment on above: Benign essential hyp ertension; Chronic combined systolic and diastolic congestive heart failure (HCC); Insomnia, unspecified type Start: 07-28-2020 End: 07-28-2020 [facility] Start: 07-28-2020 End: 07-28-2020 Office outpatient visit 25 minutes David Ludwig Work Phone: [facility] Comment on above: Benign essential hyp ertension (Primary Dx); Chronic combined systolic and diastolic congestive heart failure (HCC); Mixed hyperlipidemia Start: 05-07-2020 End: 05-07-2020 Orders Only Alley Lopez Jigar Work Phone: [facility] Start: 02-03-2020 End: 02-04-2020 Patient encounter procedure [facility] Start: 02-03-2020 End: 02-03-2020 Subsequent hospital visit by physician Rubin Chirinos Work Phone: [facility] Comment on above: Bruit of left caroti d artery Start: 01-15-2020 End: 01-15-2020 Office outpatient visit 25 minutes Rubin Chirinos Work Phone: [facility] Comment on above: Bruit of left caroti d artery (Primary Dx); Chronic combined systolic and diastolic congestive heart failure (HCC); Mixed hyperlipidemia; Nonrheumatic aortic valve insufficiency; Benign essential hypertension; Left carotid bruit Start: 12-08-2019 End: 12-08-2019 Patient encounter procedure David Ludwig Work Phone: [facility] Comment on above: General medical exam (Primary Dx); At low risk for fall; Need for vaccination Start: 12-01-2019 End: 12-05-2019 Patient encounter [facility] Start: 06-16-2019 End: 06-16-2019 Office outpatient visit 25 minutes David Ludwig Work Phone: [facility] Comment on above: Benign essential hyp ertension (Primary Dx); Chronic combined systolic and diastolic congestive heart failure (HCC); Mixed hyperlipidemia; Subclinical hypothyroidism; Insomnia, unspecified type Start: 01-13-2019 End: 01-13-2019 Office outpatient visit 25 minutes Rubin Chirinos Work Phone: [facility] Comment on above: Cardiomyopathy, unsp ecified type (HCC) (Primary Dx); Chronic combined systolic and diastolic congestive heart failure (HCC); Mixed hyperlipidemia; Benign essential hypertension Start: 12-04-2018 End: 12-04-2018 Clinical Support Kriss Marcelo [facility] Comment on above: Sensorineural hearin g loss, bilateral (Primary Dx); Sudden hearing loss, unspecified laterality Start: 12-04-2018 End: 12-04-2018 Office outpatient visit 25 minutes Ceasar Tonywilmer Dmitryserglouise Work Phone: [facility] Comment on above: Hearing loss due to cerumen impaction, bilateral (Primary Dx); Sensorineural hearing loss, bilateral Start: 09-26-2018 End: 09-26-2018 Patient encounter procedure Eve Yap [facility] Comment on above: Medicare Wellness Vi sit (VM to schedule MWV) Start: 06-26-2018 End: 06-26-2018 Office outpatient visit 25 minutes David Ludwig Work Phone: [facility] Comment on above: Benign essential hyp ertension (Primary Dx); Mixed hyperlipidemia; Chronic combined systolic and diastolic congestive heart failure (HCC); Mood disorder (HCC) Start: 01-28-2018 Patient encounter procedure Escobar Gallegos Facility:[facility] Start: 01-28-2018 End: 01-28-2018 Patient encounter Escobar Gallegos Work Phone: [facility] Start: 01-15-2018 End: 01-15-2018 Office outpatient visit 25 minutes Escobar Gallegos Work Phone: [facility] Comment on above: Congestive heart elsy lure, unspecified HF chronicity, unspecified heart failure type (HCC) (Primary Dx); Dyspnea on exertion; Nonrheumatic aortic valve insufficiency; Benign essential hypertension Start: 12-27-2017 End: 12-27-2017 Office outpatient visit 25 minutes Davidcleveland Mortensen Nadia Work Phone: [facility] Comment on above: Benign essential hyp ertension (Primary Dx); Mixed hyperlipidemia; Subclinical hypothyroidism; Chronic combined systolic and diastolic congestive heart failure (HCC); Need for influenza vaccination Start: 12-19-2017 Patient encounter procedure Alfredo Barreto Facility:[facility] Start: 12-19-2017 End: 12-19-2017 Patient encounter Devonte Hassan [facility] Start: 11-07-2017 Abner Schafer Work Phone: [facility] Comment on above: Medication Refill Start: 06-26-2017 Patient encounter procedure Alfredo WMacrina Ladonnalisa Facility:[facility] Start: 06-26-2017 Office/outpatient vi sit, est, level 3 Alfredo Barreto Work Phone: [facility] Start: 06-25-2017 Patient encounter procedure Oscar Mendes Facility:[facility] Start: 06-20-2017 Patient encounter Ceasar Sreedharfidelia simoncamrynparish Prykhodko Work Phone: [facility] Start: 06-18-2017 Patient encounter procedure Oscar Mendes Facility:[facility] Start: 01-12-2017 End: 01-12-2017 Ambulatory Rubin Chirinos Work Phone: [facility] Start: 01-08-2017 Office/outpatient vi sit, est, level 5 Rubin Chirinos Work Phone: [facility] Start: 12-19-2016 End: 12-19-2016 Ambulatory Oscar Mendes Work Phone: [facility] Start: 12-15-2016 End: 12-15-2016 Ambulatory Oscar Sylillian Work Phone: [facility] Start: 12-13-2016 End: 12-13-2016 Office outpatient new 30 minutes Ceasar Jimenezaurorafrancine Prykhodko Work Phone: [facility] Comment on above: Hearing loss due to cerumen impaction, bilateral (Primary Dx);Presbycusis, unspecified laterality Start: 11-24-2016 End: 11-24-2016 Ambulatory Oscar Mendes Work Phone: [facility] Procedures Date Procedure Procedure Detail [...] Start: 12-07-2029 Tetanus vaccination Tetanus: Every 10yrs [facility] Start: 12-27-2022 History and physical examination, annual for health maintenance Wellness Visit [facility] Start: 12-22-2021 Influenza vaccination Sequential Influenza Vaccine (#1) [facility] Start: 01-31-2021 End: 01-31-2021 Office Visit 01/31/2021 Office Visit Primary Care David Ludwig MD [facility] [address] [place], [place] [id number] [facility] Start: 12-07-2020 Administration of herpes zoster vaccine Zoster Vaccines (1 of 2) [facility] Comment on above: Postponed from 10/21/1985 (Treatment Not Available) Start: 12-07-2020 Adolescent depression screening assessment Depression Screening (PHQ9) [facility] Start: 12-07-2020 Depression screening using PHQ-9 (Patient Health Questionnaire 9) score [facility] Start: 12-07-2020 Fall risk assessment Falls Risk Assessment [facility] Start: 12-07-2020 History and physical examination, annual for health maintenance Wellness Visit [facility] Start: 08-09-2020 COVID-19 Vaccine (3 - Booster for Moderna series) COVID-19 Vaccine (3 - Booster for Moderna series) [facility] Start: 07-28-2020 End: 07-28-2020 Office Visit 07/28/2020 Office Visit Primary Care David Ludwig MD [address] [place] [address] [phone] [facility] Start: 07-28-2020 End: 07-28-2021 Microalbumin measurement, urine, quantitative Microalbumin/Creatinine Ratio, UR Random Lab Routine Benign essential hypertension Expected: 07/28/2020, Expires: 07/28/2021 [facility] Comment on above: Expected: 07/28/2020, Expires: Start: 06-10-2020 End: 06-10-2020 Office Visit 06/10/2020 Office Visit Primary Care David Ludwig MD [address] [place] [address] [phone] [facility] Start: 02-03-2020 End: 02-03-2020 Appointment 02/03/2020 Appointment Cardiology Rubin Chirinos MD [address] [place] [address] [phone] [facility] Start: 12-23-2019 Influenza vaccination given Sequential Influenza Vaccine (#1) [facility] Start: 12-19-2019 Depression screening using PHQ-9 (Patient Health Questionnaire 9) score DEPRESSION SCREENING (PHQ9) [facility] Start: 12-19-2019 Fall risk assessment Falls Risk Assessment [facility] Start: 12-08-2019 End: 12-08-2019 Office Visit 12/08/2019 Office Visit Primary Care David Ludwig MD [address] [place] [address] [phone] [facility] Start: 06-16-2019 End: 06-16-2020 Microalbumin measurement, urine, quantitative Microalbumin/Creatinine Ratio, UR Random Lab Routine Benign essential hypertension Expected: 06/16/2019, Expires: 06/16/2020 [facility] Comment on above: Expected: 06/16/2019, Expires: Start: 06-16-2019 End: 06-16-2019 Office Visit 06/16/2019 Office Visit Primary Care David Ludwig MD [address] [place] [address] [phone] [facility] Start: 01-13-2019 End: 01-13-2019 Office Visit 01/13/2019 Office Visit Cardiology Rubin Chirinos MD [address] [place] [address] [phone] [facility] Start: 12-22-2018 Influenza vaccination given SEQUENTIAL INFLUENZA VACCINE (#1) [facility] Start: 12-20-2018 End: 12-20-2018 Office Visit 12/20/2018 Office Visit Primary Care David Ludwig MD [address] [place] [address] [phone] [facility] Start: 12-18-2018 End: 12-18-2018 Office Visit 12/18/2018 Office Visit Primary Care David Ludwig MD [address] [place] [address] [phone] [facility] Start: 06-26-2018 End: 06-27-2019 Microalbumin measurement, urine, quantitative Microalbumin, Urine, Random Routine Benign essential hypertension Expected: 06/26/2018, Expires: 06/27/2019 [facility] Comment on above: Expected: 06/26/2018, Expires: 0 Start: 06-26-2018 End: 06-26-2018 Ambulatory 06/26/2018 Office Visit Primary Care David Ludwig MD [address] [place] [address] [phone] [facility] Start: 06-19-2018 End: 06-19-2018 Ambulatory 06/19/2018 Clinical Support Primary Care [facility] Start: 01-28-2018 End: 01-28-2018 Ambulatory 01/28/2018 Appointment Cardiology Escobar Gallegos CNP [address] [place] [address] [phone] [facility] Start: 01-10-2018 End: 01-10-2018 Ambulatory 01/10/2018 Office Visit Cardiology Rubin Chirinos MD [address] [place] [address] [phone] [facility] Start: 12-27-2017 End: 12-27-2017 Ambulatory [facility] Start: 12-22-2017 Influenza vaccination SEQUENTIAL INFLUENZA VACCINE (#1) [facility] Start: 12-18-2017 Ambulatory 12/18/2017 Clinical Support Primary Care [facility] Start: 06-26-2017 Ambulatory [facility] Start: 06-25-2017 Ambulatory 06/25/2017 Hospital Encounter Oscar Mendes MD [address] [place] [address] [phone] [facility] Start: 06-20-2017 Ambulatory 06/20/2017 Office Visit Otolaryngology Ceasar Arce MD [address] [place] [address] [phone] [facility] Start: 06-18-2017 Ambulatory 06/18/2017 Hospital Encounter Oscar Mendes MD [address] [place] [address] [phone] [facility] Start: 01-12-2017 Ambulatory 01/12/2017 Hospital Encounter Cardiology Rubin Chirinos MD [address] [place] [address] [phone] [facility] Start: 01-08-2017 Ambulatory 01/08/2017 Office Visit Cardiology Rubin [facility]irinos MD [address] [facility] [place] [address] [phone] [facility] Start: 12-22-2016 Influenza vaccination SEQUENTIAL INFLUENZA VACCINE (#1) [facility] Work Phone: Start: 12-22-2016 SEQUENTIAL INFLUENZA VACCINE (#1) SEQUENTIAL INFLUENZA VACCINE (#1) [facility] Work Phone: Start: 12-13-2016 Ambulatory 12/13/2016 Office Visit Otolaryngology Ceasar Arce MD [address] [place] [address] [phone] [facility] Start: 03-02-2016 Pneumococcal vaccination PNEUMOCOCCAL VACCINE AGE 65+ (2 of 2 - PCV13) [facility] Start: 10-21-2000 Fall risk assessment Steadi Fall Risk Assessment [facility] Start: 10-21-2000 Pneumococcal vaccination PNEUMOCOCCAL VACCINE AGE 65+ (1 of 2 - PCV13) [facility] Work Phone: Start: 10-21-2000 PNEUMOCOCCAL VACCINE AGE 65+ (1 of 2 - PCV13) PNEUMOCOCCAL VACCINE AGE 65+ (1 of 2 - PCV13) [facility] Work Phone: Start: 1995 Zoster vacc, sc ZOSTER VACCINE [facility] Work Phone: Start: 10-21-1985 Administration of herpes zoster vaccine ZOSTER VACCINES (1 of 2) [facility] Start: 10-21-1985 ZOSTER VACCINES (1 of 2) ZOSTER VACCINES (1 of 2) [facility] Start: 10-21-1938 History and physical examination, annual for health maintenance Wellness Visit [facility] Start: 1935 Fall risk assessment Falls Risk Assessment [facility] Start: 1935 End: 1935 DEXA SCAN DEXA SCAN [facility] Work Phone: Start: 1935 End: 1935 Screening for osteoporosis DEXA SCAN [facility] Start: 1935 End: 1935 TETANUS EVERY 10 YR TETANUS EVERY 10 YR [facility] Work Phone: Start: 1935 End: 1935 Tetanus vaccination [facility] Work Phone: End: 03-17-2021 Carotid artery doppler assessment Ultrasound doppler carotid Vascular Ultrasound Routine Bruit of left carotid artery 1 Occurrences starting 01/15/2020 until 03/17/2021 [facility] Comment on above: 1 Occurrences starting 01/15/2020 until 03/17/2021 End: 01-12-2017 Carotid Duplex Carotid Duplex Routine Bruit Once for 1 Occurrences starting 01/12/2017 until 01/12/2017 [facility] Work Phone: Carotid Duplex Carotid Duplex R outine Bruit 01/12/2017 4:01 PM EDT [facility] Work Phone: End: 03-10-2018 Carotid Duplex Carotid Duplex Routine Bruit 1 Occurrences starting 01/08/2017 until 03/10/2018 [facility] Work Phone: End: 06-26-2018 Cholesterol Lipid Panel Routine Pure hypercholesterolemia 1 Occurrences starting 06/26/2017 until 06/26/2018 [facility] End: 06-26-2018 Complete blood count (hemogram) panel - Blood by Automated count CBC Routine Essential hypertension 1 Occurrences starting 06/26/2017 until 06/26/2018 [facility] End: 06-27-2019 Complete blood count with white cell differential, manual CBC and Differential Routine Benign essential hypertension 1 Occurrences starting 11/26/2018 until 06/27/2019 [facility] Comment on above: 1 Occurrences starting 11/26/2018 until 06/27/2019 End: 06-16-2020 Complete blood count with white cell differential, manual CBC and Differential Lab Routine Benign essential hypertension 1 Occurrences starting 06/16/2019 until 06/16/2020 [facility] Comment on above: 1 Occurrences starting 06/16/2019 until 06/16/2020 End: 07-28-2021 Complete blood count with white cell differential, manual CBC and Differential Lab Routine Benign essential hypertension 1 Occurrences starting 07/28/2020 until 07/28/2021 [facility] Comment on above: 1 Occurrences starting 07/28/2020 until 07/28/2021 End: 06-27-2019 Comprehensive metabolic 2000 panel Comprehensive Metabolic Panel Routine Benign essential hypertension 1 Occurrences starting 11/26/2018 until 06/27/2019 [facility] Comment on above: 1 Occurrences starting 11/26/2018 until 06/27/2019 End: 06-16-2020 Comprehensive metabolic 2000 panel Comprehensive Metabolic Panel Lab Routine Benign essential hypertension 1 Occurrences starting 06/16/2019 until 06/16/2020 [facility] Comment on above: 1 Occurrences starting 06/16/2019 until 06/16/2020 End: 07-28-2021 Comprehensive metabolic 2000 panel Comprehensive Metabolic Panel Lab Routine Benign essential hypertension 1 Occurrences starting 07/28/2020 until 07/28/2021 [facility] Comment on above: 1 Occurrences starting 07/28/2020 until 07/28/2021 End: 06-26-2018 Comprehensive metabolic panel [AGGREGATE] Comprehensive Metabolic Panel Routine Essential hypertension 1 Occurrences starting 06/26/2017 until 06/26/2018 [facility] End: 01-16-2019 Echocardiogram complete Echocardiogram complete Routine Dyspnea on exertion 1 Occurrences starting 01/15/2018 until 01/16/2019 [facility] Comment on above: 1 Occurrences starting 01/15/2018 until 01/16/2019 End: 06-27-2019 Lipid 1996 panel Lipid Panel Routine Mixed hyperlipidemia 1 Occurrences starting 11/26/2018 until 06/27/2019 [facility] Comment on above: 1 Occurrences starting 11/26/2018 until 06/27/2019 End: 06-16-2020 Lipid 1996 panel Lipid Panel Lab Routine Mixed hyperlipidemia 1 Occurrences starting 06/16/2019 until 06/16/2020 [facility] Comment on above: 1 Occurrences starting 06/16/2019 until 06/16/2020 End: 07-28-2021 Lipid 1996 panel Lipid Panel Lab Routine Benign essential hypertension 1 Occurrences starting 07/28/2020 until 07/28/2021 [facility] Comment on above: 1 Occurrences starting 07/28/2020 until 07/28/2021 End: 06-26-2018 Microalbumin, Urine, Random Microalbumin, Urine, Random Routine Essential hypertension 1 Occurrences starting 06/26/2017 until 06/26/2018 [facility] End: 06-27-2019 Thyrotropin Qn TSH with Reflex Free T4 Routine Benign essential hypertension 1 Occurrences starting 11/26/2018 until 06/27/2019 [facility] Comment on above: 1 Occurrences starting 11/26/2018 until 06/27/2019 End: 06-26-2018 TSH TSH Routine Hypothyroidism (acquired) 1 Occurrences starting 06/26/2017 until 06/26/2018 [facility] End: 06-16-2020 TSH Qn TSH with Reflex Free T4 Lab Routine Subclinical hypothyroidism 1 Occurrences starting 06/16/2019 until 06/16/2020 [facility] Comment on above: 1 Occurrences starting 06/16/2019 until 06/16/2020 End: 07-28-2021 TSH Qn TSH with Reflex Free T4 Lab Routine Benign essential hypertension 1 Occurrences starting 07/28/2020 until 07/28/2021 [facility] Comment on above: 1 Occurrences starting 07/28/2020 until 07/28/2021 Immunizations Immunization Date Immunization Notes Care Provider Derrick gomez 06-14-2020 Moderna SARS-CoV-2 Vaccination Brand on [facility] 05-17-2020 Moderna SARS-CoV-2 Vaccination Brand on [facility] 01-28-2020 Seasonal, quadrivale nt, recombinant, injectable influenza vaccine, preservative free [facility] 12-08-2019 diphtheria, tetanus toxoids and acellular pertussis vaccine, unspecified formulation [facility] 12-08-2019 tetanus toxoid, redu cielo diphtheria toxoid, and acellular pertussis vaccine, adsorbed David [facility] 12-27-2017 influenza, high dose seasonal, preservative-free; Translations: [INFLUENZA IIV3 HIGH DOSE 65 AND OLDER] [facility] influenza virus vacc ine, unspecified formulation Ceasar Claude [facility] 03-02-2015 influenza, injectabl e, quadrivalent, preservative free [facility] 03-02-2015 pneumococcal conjuga te vaccine, 13 valent [facility] 03-02-2015 pneumococcal polysac charide vaccine, 23 valent [facility]2002 influenza virus vacc ine, unspecified formulation [facility] Payers Date Payer Category Payer Self-pay 2015 Unknown [id number] 2015 Unknown [facility][1] [id number] 2015-Present [id number] 2015 Unknown [facility][1] [id number] 2015-Present [phone] [address] [place] [address] [id number] 2000 Medicare [id number] 2000 Medicare MEDICARE MEDICAR E PART A & B [id number] 2000-Present [place] [id number] 2000 Medicare MEDICARE MEDICAR E PART A & B [id number] 2000-Present [phone] S [id number] PART [place] [address] [address] [id number] 2000 Unknown [id number] 2000 Medicare [id number] 1935 Unknown [id number] 1935 Unknown [id number] 1935 Unknown [id number] 1935 Unknown [id number] 1935 Unknown [id number] Medicare xxxxxxxxxx [id number] Unknown [id number] Unknown [id number] Unknown [id number] Unknown [id number] Unknown [id number] Unknown [id number] Social History Date Type Detail Facility Start: 12-13-2016 End: 06-26-2017 Tobacco smoking status MTIS Never smoker [facility] Start: 1935 Sex Assigned At Not on file O [employer] Work Phone: Start: 01-06-2016 Alcohol Comment very seldom [facility] Start: 06-26-2017 End: 01-13-2019 Alcohol intake [facility] drink[facility] ([facility] Start: 12-18-2018 End: 07-28-2020 History SDOH Social Connections Phone 3 [facility] Start: 12-18-2018 End: 12-08-2019 History SDOH Food Worry 1 [facility] Start: 12-13-2016 End: 01-15-2020 Tobacco use and exposure Never used [facility] Start: 01-15-2020 End: 07-28-2020 Alcohol intake Ex-drinker (finding) [facility] Start: 12-08-2019 History SDOH Physica l Activity DPW 0 [facility] Start: 12-08-2019 History SDOH Education 14 [facility] Start: 12-08-2019 History SDOH Financial 5 [facility] Start: 12-08-2019 End: 07-28-2020 History SDOH IPV Fear 2 [facility] Start: 06-28-2020 End: 07-28-2020 Exposure to SARS-CoV-2 (event) Not sure [facility] Start: 06-26-2017 End: 07-28-2020 Alcohol intake [facility] Clinical Notes 11-07-2017 to 03-04-2025 Telephone Encounter - Shante Hargrove LPN - 09/21/2020 4:05 PM EDTTelephone Encounter - Theresa Berg MA - 11/09/2017 9:59 AM EDT Note Date & Type Note Facility 03-04-2025 Note HNO ID: [id number] Author: NORMA LEES RN Service: Care Management Author Type: Registered Nurse Type: Care Mgt Progress Note Filed: 03/04/2025 13:48 Note Text: CARE MANAGEMENT PROGRESS NOTE SERVICE DATE: 03/04/2025 SERVICE TIME: 1:07 PM LOS: 2 days Needs Prior to Discharge: To Be Determined EMR reviewed. Acute on chronic CHF. On IV Lasix. On RA. Returning to [facility]. OT rec HHC. PT pending. Updated [facility] referral, awaiting answer if they have their own onsite therapy or a [facility] agency they prefer to use. 1:47 PM [facility] advised they will use their in house therapy team to provide the home therapy patient needs upon return. SIGNATURE: Norma Lees RN PATIENT NAME: Na Good DATE: March 04, 2025 TIME: 1:07 PM [facility] 03-04-2025 Note HNO ID: [id number] Author: BISMARK SALES MD Service: General Internal [...] recommended. Echocardiography Report: Transthoracic Echo [facility] Date of service: 12/26/2024 CONCLUSIONS: - Exam [...] e (more content not included)... [facility] 03-03-2025 Note HNO ID: [id number] Author: NORMA LEES RN Service: Care Management [...] by: Per Department Practice Potential Transition Plans Mcfp Facility/Intermediate Care Facility Advance Directives Current Advance Directive: Health Care Power of Credit Control Officer In Chart: Yes Up To Date and Valid: Yes Current Living Arrangements and Support Lives with: Type of Residence: Assisted Living Facility Does the patient have to climb stairs at home?: No Care Facility Name: [facility] Support: Children How do you manage to accomplish the following: Independent: Ambulation, Dress, Going to the bathroom Needs Assistance: Bathe/Shower Dependent: Meals/Meal Prep, Medication Management, Transportation to appointments/community Current Services/Equipment Current Post-Acute Service(s): DME Current DME Type: Walker (Walker inside, Walking poles outside.) Discharge Planning Patient Goal(s): Be able to go home, General wellness [place] of Choice Explained: [place] of Choice Given: Yes Level of Care Discussed: Other: See Comment (Return to [facility].) Are you interested in bedside delivery of your medications? No Discharge Planning Participant(s): Children Patient/Family Comments: Caregiver Assessment: Caregiver is ready, willing and able to meet the patient's needs as recommended by the inter-professional team: Yes Name of Caregiver: [facility] Transport at Discharge: Transportation Arrangements: To Be Determined Needs Prior to Discharge: Needs Prior to Discharge: To Be Determined Post-Acute Discharge Plan: CM spoke with daughter/AIRAM Shi to complete assessment, introduced self and role. Pt is 89 y/o, admit Dx Acute on chronic CHF. Patient resides at [facility]. Needs assist with bathing, nurses administer all meds. Daughter reports patient uses a walker inside and walking poles when outside. Presented to ED with worsening dyspnea on exertion. Cardiology consulted. On IV Lasix. On RA. Pt is AANDO X 3. Anticipate return to [facility]. Discharge transport TBD Family vs [facility] vs Medical transport. Daughter feels Discharge instructions on Lasix administration need to be very specific for the [facility] nurses at d/c. CM instructed patient that CM team will remain available for any dc needs. SIGNATURE: Norma Lees RN PATIENT NAME: Na Good DATE: March 03, 2025 TIME: 11:56 AM [facility] 03-03-2025 Note HNO ID: [id number] Author: BISMARK SALES MD Service: General Internal [...] recommended. Echocardiography Report: Transthoracic Echo [facility] Date of service: 12/26/2024 CONCLUSIONS: - Exam [...] deri (more content not included)... [facility] 03-02-2025 Note SARS-COV-2 (AGENT OF COVID-19) RNA: Not detected INFLUENZA A RNA: Not detected INFLUENZA B RNA: Not detected RESPIRATORY SYNCYTIAL VIRUS (RSV) RNA: Not detected [facility] Comment on above: Performed By: #### 2 [id number] #### [facility] CLIA [id number] [address] [place] [id number] [place] 02-25-2025 Note HNO ID: [id number] Author: LIDIA ARMENTA APRN.VERONICA Service: ? Author Type: Nurse Practitioner Type: Progress Notes Filed: 02/25/2025 15:55 Note Text: [facility] Ray[facility] Department of Cardiovascular Medicine SECTION [...] a follow up visit. Recent admission to [facility] for acute diastolic HF Seen by and [...] She resides in an assisted living facility, [facility], and is accompanied by her nurse [...] prior to the follow up. Lidia Armenta APRN.FELT CEMENTER Cardiology Nurse Practitioner Section of Regional Cardiology [place] Dept of Cardiovascular Medicine [facility] [address] [place] [address] Office Office February 25, 2025 (more content not included)... [facility] 02-04-2025 Note HNO ID: [id number] Author: JOVANI COCHRAN APRN.FELT CEMENTER Service: ? Author Type: Nurse Practitioner Type: Progress Notes Filed: 02/04/2025 13:00 Note Text: [facility] OUTPATIENT VISIT DATE February [...] Glass (more content not included)... [facility] 01-29-2025 Note HNO ID: [id number] Author: NAHEED GREENBERG RN Service: Care Management Author Type: Registered Nurse Type: Care Mgt Progress Note Filed: 01/29/2025 14:44 Note Text: CARE MANAGEMENT DISCHARGE NOTE SERVICE DATE: January 29, 2025 SERVICE TIME: 2:41 PM Discharge order written for today. [facility]: [facility] - - Updated in [facility] and by Phone with Nurse Persaud on discharge planning. Nurse Persaud updated on discharge today and confirms the facility will set home PT services for patient. MMT transport scheduled for today at 3:30 PM - Trip Number [id number] Transport envelope on chart LAKESHIA GALLEGO discussed discharge with Nurse Yaritza Steven RN. Admission Date: 01/27/2025 LOS: 2 days Discharge Arrangement Discharge Arrangement: [facility] Arrangements Transportation Arrangements: Ambulance Transportation Agency and Phone #:: [facility] [phone] Date of Trip: 01/29/25 (Trip Number [id number]) Time of Trip: 1530 Type of Service: BLS Non-emergency Is Patient Medicaid Pending?: No Was transportation financial coverage discussed with family?: Family (Son: Yandel Good - [phone]) Application Design Engineer Location: [place] Destination: [facility]: [facility] - Financial Care Management Responsibility: None Handoff Communication: Handoff to: Primary Care Physician Primary Care Physician Name/Phone: PCP: Alexey Espino DO - Additional Information: Discharge Information Row Name ED to Hosp-Admission (Current) from 01/27/2025 in [facility] Medical Follow-Up Appointment Provider Name PCP: Alexey Espino DO - Other Follow-Up Type [facility]: [facility] - SIGNATURE: Naheed Greenberg RN PATIENT NAME: Na Good DATE: January 29, 2025 TIME: 2:41 PM [facility] 01-29-2025 Note HNO ID: [id number] Author: NAHEED GREENBERG RN Service: Care Management Author Type: Registered Nurse Type: Care Mgt Progress Note Filed: 01/29/2025 14:36 Note Text: CARE MANAGEMENT PROGRESS NOTE SERVICE DATE: 01/29/2025 SERVICE TIME: 2:13 PM LOS: 2 days RN CM spoke with son: Yandel Good [phone] to discuss discharge planning. Anticipate discharge today. Yandel confirms plan if for return to [facility]: [facility]. RN CM informed Yandel of therapy [...] Copy Given: Yes Copy given to:: Patient Acetylene Cylinder Packing Mixer Acetylene Cylinder Packing Mixer Name/Relationship: Son: Yandel Good - Method: By Phone MMT Transport scheduled for today at 3:30 PM - Trip Number [id number] Transport envelope on chart with Nurse to Nurse Report Number RN CM updated Nurse Yaritza Steven RN. RN CM called [facility] spoke with Nurse: Cori to discuss need for Home PT services. She confirms the will arrange PT with the facility therapist. She has been informed that patient will be discharge and returning to them today. Facility updated in [facility] on Discharge Plan and Medical Transport Time. SIGNATURE: Naheed Greenberg RN PATIENT NAME: Na Good DATE: January 29, 2025 TIME: 2:13 PM [facility] 01-29-2025 Note HNO ID: [id number] Author: LIDIA ARMENTA APRN.CNP Service: Cardiovascular Medicine Author Type: Nurse Practitioner Type: Progress Notes Filed: 01/29/2025 10:50 Note Text: [facility] Rayo Department of Cardiovascular Medicine SECTION OF REGIONAL CARDIOLOGY[facility] Progress Note Elements of this note, [...] Consulting Physician: Julio Cesar Alvarez MD Primary Occupational Therapy Asst: Mandeep - last visit 2019 SERVICE DATE: [...] PO daily and lasix 20 mg daily 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 Martinez and nursing staff. Lidia Armneta APRN.FELT CEMENTER 01/29/2025 9:00 AM PAST MEDICAL HISTORY PAST [...] 10/05/2003 45 Last ECHO Result Conclusion ECHO [facility] (more content not included)... [facility] 01-28-2025 Note HNO ID: [id number] Author: NAHEED GREENBERG RN Service: Care Management Author Type: Registered Nurse Type: Care Mgt Initial Assessment Filed: 01/28/2025 14:43 Note Text: CARE MANAGEMENT: ASSESSMENT AND DISCHARGE PLAN SERVICE DATE: January 28, 2025 SERVICE TIME: 8:38 AM culinary intern spoke with patient to complete Care Management Assessment. RN CM left voice message for Daughter/HCPOA: Yuridia Whyte [phone] to call CM to discuss discharge planning. [...] Current Advance Directive: Health Care Power of Credit Control Officer In Chart: Yes Current Living Arrangements and [...] Patient Goal(s): Be able to go home [place] of Choice Explained: [place] of Choice Given: No (Discharge Needs: To be Determined) Discharge Planning Participant(s): Patient Transport at Discharge: Transportation Arrangements: To Be Determined Needs Prior to Discharge: Needs Prior to Discharge: To Be Determined, OT/PT Evaluation, Discharge Transportation Post-Acute Discharge Plan: 01/28/25 2:43 PM RN CM called [facility] spoke with Nurse Adriana in Assisted Living. Adriana confirms patient is a resident in [facility]. She confirmed PCP: Alexey Espino DO - and Pharmacy for Discharge: [facility] in [facility] - Adriana informs CM that patient is not active with HHC or Therapy at the facility prior to admission. Discharge Transportation: To be Determined. CM Dept to Follow. SIGNATURE: Naheed Greenberg RN PATIENT NAME: Na Good DATE: January 28, 2025 TIME: 2:38 PM [facility] 01-28-2025 Note HNO ID: [id number] Author: JULIO CESAR ALVAREZ MD Service: Hospital Medicine Author Type: Physician Type: Progress Notes Filed: 01/28/2025 12:39 Note Text: DEPARTMENT OF HOSPITAL MEDICINE PROGRESS NOTE SERVICE DATE: 01/28/2025 SERVICE TIME: 12:35 PM Hospital Medicine/Primary Attending: Julio Cesar Alvarez MD NIGHT AND WEEKEND COVERAGE: [facility] [employer]: Days: [phone], please page attending physician. Nights: [phone], please page [place] [facility] Night coverage pager [phone]. Subjective INTERVAL HPI: No acute events overnight. [...] HFrEF (heart failure with reduced ejection fraction) ([facility]) (POA: Status not on file) Difficulty [...] Me (more content not included)... [facility] 01-27-2025 Note SARS-COV-2 (AGENT OF COVID-19) RNA: Not detected INFLUENZA A RNA: Not detected INFLUENZA B RNA: Not detected RESPIRATORY SYNCYTIAL VIRUS (RSV) RNA: Not detected [facility] Comment on above: Performed By: #### 2 [id number] #### [facility] CLIA [id number] [address] [place] [id number] [place] 12-27-2024 Note HNO ID: [id number] Author: JOAN CARRIZALES RN Service: ? Author Type: Registered Nurse Type: Nursing Progress Note Filed: 12/27/2024 12:22 Note Text: Report was given to cori at [facility] 12-27-2024 Note HNO ID: [id number] Author: ANDRE SAN LSW Service: Care Management Author Type: Resolution Agent Type: Care Mgt Progress Note Filed: 12/27/2024 11:32 Note Text: CARE MANAGEMENT DISCHARGE NOTE SERVICE DATE: December 27, 2024 SERVICE TIME: 11:28 AM Admission Date: 12/24/2024 LOS: 3 days Discharge Arrangement Services Arranged Provider Name: [facility] Caregiver Assessment Transportation Arrangements Transportation Arrangements: Car Date of Trip: 12/27/24 Time of Trip: 1300 Is Patient Medicaid Pending?: No Was transportation financial coverage discussed with family?: Patient, Family Application Design Engineer Location: [place] Destination: [facility] Financial Care Management Responsibility: None Handoff Communication: Handoff to: Other Caregiver Other Caregiver Name/Phone: Daughter confirmed pt has homecare services through [facility]. F2f included in d/c envelope Additional Information: CM notified regarding d/c today, return to [facility]. Family confirmed pt's son, Yandel Good, will be transporting pt back to the facility. Envelope with d/c information updated. CM will follow, as needed. SIGNATURE: DALILA Moy, TED PATIENT NAME: Na Good DATE: December 27, 2024 TIME: 11:28 AM [facility] 12-27-2024 Note HNO ID: [id number] Author: LIDIA ARMENTA APRN.CNP Service: Cardiovascular Medicine Author Type: Nurse Practitioner Type: Progress Notes Filed: 12/27/2024 09:43 Note Text: Heart and Vascular [facility] Domenic Rayo Department of Cardiovascular Medicine SECTION OF REGIONAL C[facility]IOLOGY[facility] Progress Note Elements of this note, [...] MD Consulting Physician: Liam Smith MD Primary Occupational Therapy Asst: SERVICE DATE: December 27, 2024 Interval History: Patient seen and examined sitting up in bed - son at bedside Patient with no cardiac complaints this AM Patient CHINIK Overall improved since admission Discharge was held [...] mg daily and Toprol 25 mg daily SPORT SHOE SPIKE ASSEMBLER >> home meds continued on admission - [...] Dr. Matthews and nursing staff. Lidia Armenta, MEDICAL BILLER/CODER.FELT CEMENTER 12/27/2024 7:36 AM PAST MEDICAL HISTORY PAST [...] intact (more content not included)... [facility] 12-26-2024 Note HNO ID: [id number] Author: LIAM SMITH MD Service: General Internal [...] -- 12/24/24 1830 activity - mobilize patient ([place]) VTE Prophylaxis: VTE prophylaxis appropriate SIGNATURE: Liam Smith MD PATIENT NAME: Na Good DATE: December 26, 2024 TIME: 1:54 PM [facility] 12-25-2024 Note HNO ID: [id number] Author: CATHLEEN THOMAS LSW Service: Care Management Author Type: Resolution Agent Type: Care Mgt Initial Assessment Filed: 12/25/2024 [...] Practice Potential Transition Plans Other: See Comment ([facility]) Advance Directives Current Advance Directive: Health Care Power of Credit Control Officer In Chart: No Sorority Mother Attempted to Assist with AD Completion: Yes Action: Other: See Comment (Asked RN at [facility] to fax to dept.) Current Living Arrangements and Support Lives with: Alone Type of Residence: Assisted Living Facility Does the patient have to climb stairs at home?: No Care Facility Name: [facility] Support: Children, Family members How do you manage to accomplish the following: Independent: Dress, Going to the bathroom Needs Assistance: Ambulation, Bathe/Shower, Meals/Meal Prep, Medication Management Dependent: Transportation to appointments/community Current Services/Equipment Current Post-Acute Service(s): DME Current DME Type: Other: See Comment (walking sticks) Discharge Planning Patient Goal(s): General wellness [place] of Choice Explained: [place] of Choice Given: Yes Level of Care Discussed: Other: See Comment ([facility]) Are you interested in bedside delivery of your medications? No Discharge Planning Participant(s): Patient, Other person(s) Name/Relationship: RN from [facility] Patient/Family Comments: Caregiver Assessment: Caregiver is ready, willing and able to meet the patient's needs as recommended by the inter-professional team: Yes Name of Caregiver: [facility] Transport at Discharge: Transportation Arrangements: Ambulance Transportation Agency and Phone #:: [facility] [phone] Needs Prior to Discharge: Needs Prior to Discharge: To Be Determined, Discharge Transportation, Other: See Comment, OT/PT Evaluation (medical clearance) Post-Acute Discharge Plan: EMR reviewed. CMSW called and spoke to RN at [facility]; introduced self/role. RN states that she will fax dept POA paperwork. Patient is an 89 year old female who presents with acute on chronic congestive heart failure with PMH of chf (per chart review -July 2024 EF 28%), LV thrombus (eliquis), HTN, tremors, macular degeneration, CAD, CHINIK, and insomnia. RN states that they patient uses [facility] for medications but is unable to confirm which location. 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 Patient is from with [facility] and needs assistance with ADLs. MMT to transport at discharge. Patient is safe and has her needs met. CM assigned will continue to follow for discharge needs. Updated 10:22 am: CMSW met with the patient and patient's daughter, Janelle, at bedside to confirm discharge plan of patient returning to [facility] at discharge; her son will transport her. SIGNATURE: DALILA Salinas PATIENT NAME: Na Good DATE: December 25, 2024 TIME: 9:19 AM [facility] 09-21-2020 Miscellaneous Notes Na called for a refill Pending Prescriptions: Disp Refills lisinopriL (PRINIVIL,ZESTRIL) 20 MG spisus84 tab*3 Sig: Take 1 (one) tablet (20 [...] 07/28/2020 Upcoming appt 01/31/2021 Please send to [facility] - [address] [address] [facility] [address] [place] [phone] Please advise documented in this encounter [facility] 11-09-2017 Telephone encounter Note Second VM left for pt. [facility] 11-09-2017 Miscellaneous Notes Second VM left for pt. Left pt a VM asking her to give our office a call back in regard to a medication refill request that we received. Medication requested; lisinopril 20 mg tab. documented in this encounter [facility] 11-07-2017 Telephone encounter Note Left pt a VM asking her to give our office a call back in regard to a medication refill request that we received. Medication requested; lisinopril 20 mg tab. [facility] Evaluation note Diagnosis Benign essential hypertension Essential hypertension, benign Chronic combined systolic and diastolic congestive heart failure (HCC) Insomnia, unspecified type documented in this encounter [facility] Assessments Diagnosis Essential hypertension - Ana [...] also different styles of hearing aids. A dfwkkb-szp-prj (BTE) hearing aid connects to a plastic [...] be replaced as the child grows. An gc-zlh-ndbjg (ITC) hearing aid fits into the ear [...] can go to your doctor or an bank appraiser. He or she will do a hearing test and help you decide which type and style of hearing aid may be best for you. But, if your hearing loss is mild to moderate, you might consider buying a good quality tabc-tyj-tvvrrne hearing aid, which may be called a [...] Log into your personal health record on [email or web address] and enter K597 in the Education box to learn more about Learning About Hearing Aids. Current as of: February 10, 2018 Content Version: 12.1 [employer]. Care instructions adapted under license by your healthcare professional. If you have questions about a medical condition or this instruction, always ask your healthcare professional. [employer] disclaims any warranty or liability for your use of this information. documented in this encounter* Patient Instructions* Danii Chen RN - 01/13/2019 10:29 AM EDT .How to contact your Care Team: Provider: Rubin Chirinos MD [facility] Nurse: Danii Chen RN In case of an emergency please call 911. REFILLS: When in need for refills please call your care team or the office at [phone]. Please include medication name, pharmacy name, and [...] your Care Team: Provider: Rubin Chirinos MD [facility] Nurse: Danii Chen RN documented [...] FoundDocuments on File Type Date Recorded Patient Acetylene Cylinder Packing Mixer Expl anation Advance Directives and Living Will Documents on File Type Date Recorded Patient Acetylene Cylinder Packing Mixer Expl anation Advance Directives and Living Will Documents on File Type Date Recorded Patient Acetylene Cylinder Packing Mixer Expl anation Advance Directives and Livin g Will 02/03/2020 12:00 AM Documents on File Type Date Recorded Patient Acetylene Cylinder Packing Mixer Expl anation Advance Directives and Livin g [...] Marcelo AuD - 12/04/2018 11:34 AM EDT [facility] [address] [facility] [place] [address] Name: Na Good : 1935 Date: 12/04/18 [...] for hearing aid use at Dr. Arce's discretion.[place] for hearing aid fitting pending otologic clearance at patient's discretion. Use of good communication strategies such as lusd-yw-dasy communication and reduction of background noise when possible. The above was explained to the patient and or their guardian and they expressed understanding. Electronically signed by: Clari Borden, [facility] 12/04/18 11:34 AM documented in [...] and external ear canal shape. CPT code 37626.50. With the patient in a slightly reclained [...] review the comprehensive hearing test results in [facility] and provided an interpretation to the patient. Indeed it confirmed ZENA symmetric down slopping increase of the SPORT SHOE SPIKE ASSEMBLER thresholds, normal Type A tympanograms and decreased speech discrimination. 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 Information on the devices and referral to the bank appraiser arranged. Assessment/Plan: Bilateral symmetric mild sensorineural [...] 01/13/2019 11:50 AM EDT OFFICE CONSULTATION NOTE [facility] [address] ([address]) [facility] [address] [facility] [phone] Physicians: David Ludwig MD Subjective: Na Good [...] 01/15/2020 3:33 PM EDT OFFICE CONSULTATION NOTE [facility] [address] ([address]) [facility] [address] [facility] [id number] Physicians: David Ludwig MD Subjective: [...] Problems Addressed: Problem Chf (Congestive Heart Failure) ([facility]) Sees Dr. Chirinos yearly. Mixed Hyperlipidemia Left [...] Directive (Living Will and/or Durable Power of Credit Control Officer for Health Care)?: Yes What is your [...] Word Registration Version Used: Version 1: Banana, [place], Chair Step 2: Clock Drawing Step 2 [...] conjunction with the immunization order to satisfy [place] Board [place] Pharm[place] Positive ID requirements for [...] week Gets together: Twice a week Attends moravian service: Not on file Active member of [...] Equipment [employer] (DME) [facility] - [place] [address] [facility] [address] [facility] [address] [address] [facility] [place] [address] - [place], [place] - [address] [facility] [address] [facility] [id number] Objective Blood pressure 133/70, pulse 98, temperature [...] Diagnoses Presbycusis, unspecified laterality Oscar Mendes MD [address] [place] [phone] Ceasar Arce MD [address] [address] Status Reason Specialty Diagnoses / Procedures Referred By Contact Referred To Contact Pending Review Cardiology Diagnoses Bruit of left carotid artery Procedures Ultrasound doppler carotid Rubin Chirinos MD [address] [place] [address] Additional Source Comments Assessment & Plan Note [...] decompensated heart failure in the clinic today. [employer] functional class I-II. She is [...] section and content) DATE CREATED AUTHOR 04/01/2018 [facility] DATE CREATED AUTHOR AUTHOR'S ORGANIZ ATION 02/04/2020 [facility] DATE CREATED AUTHOR AUTHOR'S ORGANIZ ATION 01/15/2021 [facility] DATE CREATED AUTHOR AUTHOR'S ORGANIZ ATION 03/03/2025 [facility] DATE CREATED AUTHOR AUTHOR'S ORGANIZ ATION 03/05/2025 [facility] DATE CREATED AUTHOR AUTHOR'S ORGANIZ ATION 03/05/2025 [facility] Reason for Visit (unrecogniz ed section and content) Reason Comments Congestive Heart Failure Hypertension Hyperlipidemia Reason Comments Hearing Loss Pt req to see Dr EGAN New PT Status Reason Specialty Diagnoses / Procedures Referred By Contact Referred To Contact Closed Otolaryngology Diagnoses Presbycusis, unspecified laterality Oscar Mendes MD [address] [place] [address] Ceasar Arce MD [address] [place] [facility] [place] [place] [address] [place] [address] Reason Comments Medicare Wellness Visit VM to schedule [place] Status Reason Specialty Diagnoses / Procedures Referred By Contact Referred To Contact Closed Specialty Services Required/Patient' s Best Interest Audiology Diagnoses Sudden hearing loss, unspecified laterality Ceasar Arce MD [address] [facility] [place] [place] [address] [place] [address] Kriss Marcelo AuD Reason Comments Hearing Loss left ear Reason Comments Follow-up Denies Chest pain,pr essure,SOB,Swelling Reason Comments Hypertension Hyperlipidemia Hypothyroidism Reason Comments Follow-up yearly Status Reason Specialty Diagnoses / Procedures Referred By Contact Referred To Contact Pending Review Cardiology Diagnoses Bruit of left carotid artery Procedures Ultrasound doppler carotid Rubin Chirinos MD [address] [facility] [place] [address] Reason Onset Date Comments Medicare Wellness Visit Fall Risk Screening 12/08/2019 Reason Comments Hypertension Hyperlipidemia Congestive Heart Failure Reason Onset Date Comments Medication Refill 09/21/2020 Reason Comments Medication Refill Care Teams (unrecognized sec tion and content) Research And Development Specialist Relationship Specialty Start Date End Date Anika Hernandez VERONICA PCP - General Nurse Practitioner 06/15/17 11/28/17 David Ludwig MD PCP - General Family Medicine 11/29/17 David Ludwig MD [facility] [place] [address] PCP - [facility] Attributed Provider 07/22/20 04/22/21 FOR RECORDS PERTAINING [...] BE BASED ON THE PRIMARY CLINICAL RECORDS. [employer]. provides no warranty or guarantee of the accuracy or completeness of information in this document.
[2025-04-06 07:42] LABS: Hematocrit 41.6 % (37-47); Hemoglobin 13.4 g/dL (12.0-15.0); Mean Corp Hgb Conc 32.2 g/dL (32-36); Mean Corpuscular Volume 91.0 fL (81-99); Mean Platelet Vol. 10.7 fl (6.2-12.0); Platelet Count 346 K/mm3 (150-450); RBC Distribution Width CV 16.6 % (11.6-14.6); RBC Distribution Width SD 55.6 fl (35.1-43.9); Red Blood Count 4.57 M/mm3 (4.2-5.4); White Blood Count 10.2 K/mm3 (4.4-11.0)
== END ==
LOC: OLS.ACH2 05:00
PROVIDERS: Visit Provider Internal Medicine
DX: R53.82 Chronic fatigue, unspecified (principal); R06.09 Other forms of dyspnea; I50.40 Unspecified combined systolic (congestive) and diastolic (congestive) heart failure
CPT/HCPCS: 36415; 85027

== ENCOUNTER → 2025-04-22 05:00 | Outpatient (REF) | payer MEDICARE, OTHER, SELFPAY ==
--- OUTSIDE RECORDS SUMMARY | 2025-04-22 04:06 | XMS RPT_ITS | CCD ---
Author Organization [facility] Care Team Providers Care Dining Room Attendant Name Role Phone Anika Hernandez Unavailable Unavailable [...] Corticosteroids (1 source) Cortisone Drug Allergy 6 [facility] (20 sources) cortisone; Translations: [CORTISONE] Propensity to adverse reactions to drug 2 [facility] Work Phone: Medications Current Medications Medication [...] (two) times a day. Active Flu Vaccine [id number](65yr Up)(Pf)180 McG/0.5 Ml Intramuscular Syringe (1 source) Start: 12-27-2017 End: 12-27-2017 flu vaccine tv 2017, 65yr up,,PF, (FLUZONE HIGH DOSE) syringe Indications: Need for influenza vaccination Sign this order in conjunction with the immunization order to satisfy [place] Board of Pharmacy Positive ID requirements for [...] Anion gap [Moles/Vol] 13 mmol/L Normal 8-15 [facility] Comment on above: Order Comment: Speci men Type: BLOOD SPECIMENOrdering Facility: [facility] Address: [address] [place] [address] [place] [address] Performed By: #### 1 9123-9, 26110-2, 29717-7 ####[facility] LABORATORYCLIA [id number] [place] [address] [place] Calcium [Mass/Vol] 9.1 mg/dL Normal 8.5-10.2 [facility] Comment on above: Order Comment: Speci men Type: BLOOD SPECIMENOrdering Facility: [facility] Address: [address] [place] [address] Performed By: #### 1 9123-9, 97412-8, 22572-0 ####BAIRD LABORATORYCLIA [id number] [place] [address] [place] Chloride [Moles/Vol] 98 mmol/L Normal 98-107 [facility] Comment on above: Order Comment: Speci men Type: BLOOD SPECIMENOrdering Facility: [facility] Address: [address] [place] [address] Performed By: #### 1 9123-9, 45592-8, 65098-5 ####[facility] LABORATORYCLIA [id number] [place] [address] [place] CO2 [Moles/Vol] 25 mmol/L Normal 22-30 [facility] Comment on above: Order Comment: Speci men Type: BLOOD SPECIMENOrdering Facility: [facility] Address: [address] [place] [address] Performed By: #### 1 9123-9, 24312-4, 86531-6 ####[facility] LABORATORYCLIA [id number] [place] [address] [place] Creatinine [Mass/Vol] 0.93 mg/dL Normal 0.58-0.96 [facility] Comment on above: Order Comment: Speci men Type: BLOOD SPECIMENOrdering Facility: [facility] Address: [address] [place] [address] Performed By: #### 1 9123-9, 83668-3, 44487-1 ####[facility] LABORATORYCLIA [id number] [place] [id number] [place] eGFRcr SerPlBld CKD-EPI 2020 59 mL/min/1.73m??? Low >=60 [facility] Comment on above: Order Comment: Speci men Type: BLOOD SPECIMENOrdering Facility: [facility] Address: [address] [place] [address] Result Comment: Radha mated Glomerular Filtration Rate [...] actual GFR. Performed By: #### 1 9123-9, 06274-5, 13397-9 ####[facility] LABORATORYCLIA [id number] [place] [id number] [place] Glucose [Mass/Vol] 93 mg/dL Normal 74-99 [facility] Comment on above: Order Comment: Vita florez Type: BLOOD SPECIMENOrdering Facility: [facility] Address: [address] [place], [place] [address] Result Comment: The [place] Diabetes Association (ADA) provides guidance for cutoff [...] Medical Care in Diabetes 2016, [place] Diabetes Association. Diabetes Care. 2016.39(Suppl 1). Performed By: #### 1 9123-9, 99432-5, 70114-2 ####[facility] LABORATORYCLIA [id number] [place] [id number] [place] Potassium [Moles/Vol] 4.1 mmol/L Normal 3.7-5.1 [facility] Comment on above: Order Comment: Vita florez Type: BLOOD SPECIMENOrdering Facility: [facility] Address: [address] [place] [address] Performed By: #### 1 9123-9, 07407-4, 79817-0 ####[facility] LABORATORYCLIA [id number] [place] [address] [place] Sodium [Moles/Vol] 136 mmol/L Normal 136-144 [facility] Comment on above: Order Comment: Speci men Type: BLOOD SPECIMENOrdering Facility: [facility] Address: [address] [place] [address] Performed By: #### 1 9123-9, 26924-9, 63602-0 ####BAIRD LABORATORYCLIA [id number] [address] STATES [facility] Urea nitrogen [Mass/Vol] 29 mg/dL High 7-21 [facility] Comment on above: Order Comment: Speci men Type: BLOOD SPECIMENOrdering Facility: [facility] Address: [address] [place] [address] Performed By: #### 1 9123-9, 02375-0, 66984-3 ####[facility] LABORATORYCLIA [id number] [address] [place] CBC panel Auto (Bld)on 03-04 Erythrocyte distribution width (RBC) [Ratio] 16.9 % High 11.5-15.0 [facility] Comment on above: Order Comment: Speci men Type: BLOOD SPECIMENOrdering Facility: [facility] Address: [address] [place] [address] Performed By: #### 5 8410-2 ####[facility] LABORATORYCLIA [id number] [address] [place] Hematocrit (Bld) [Volume fraction] 42.7 % Normal 36.0-46.0 [facility] Comment on above: Order Comment: Speci men Type: BLOOD SPECIMENOrdering Facility: [facility] Address: [address] [place] [address] Performed By: #### 5 8410-2 ####[facility] LABORATORYCLIA [id number] [address] Hemoglobin (Bld) [Mass/Vol] 14.1 g/dL Normal 11.5-15.5 [facility] Comment on above: Order Comment: Speci men Type: BLOOD SPECIMENOrdering Facility: [facility] Address: [address] [place] [address] Performed By: #### 5 8410-2 ####[facility] LABORATORYCLIA [id number] [address] MCH (RBC) [Entitic mass] 28.9 pg Normal 26.0-34.0 [facility] Comment on above: Order Comment: Speci men Type: BLOOD SPECIMENOrdering Facility: [facility] Address: [address] [place] [address] Performed By: #### 5 8410-2 ####[facility] LABORATORYCLIA [id number] [address] MCHC (RBC) [Mass/Vol] 33.0 g/dL Normal 30.5-36.0 [facility] Comment on above: Order Comment: Speci men Type: BLOOD SPECIMENOrdering Facility: [facility] Address: [address] [place] [address] Performed By: #### 5 8410-2 ####[facility] LABORATORYCLIA [id number] [address] MCV (RBC) [Entitic vol] 87.5 fL Normal 80.0-100.0 [facility] Comment on above: Order Comment: Speci men Type: BLOOD SPECIMENOrdering Facility: [facility] Address: [address] [place] [address] Performed By: #### 5 8410-2 ####[facility] LABORATORYCLIA [id number] [address] Nucleated RBC (Bld) [#/Vol] 10*3/uL Normal <0.01 [facility] Comment on above: Order Comment: Speci men Type: BLOOD SPECIMENOrdering Facility: [facility] Address: [address] [place] [address] Performed By: #### 5 8410-2 ####[facility] LABORATORYCLIA [id number] [address] Platelet mean volume (Bld) [Entitic vol] 10.4 fL Normal 9.0-12.7 [facility] Comment on above: Order Comment: Speci men Type: BLOOD SPECIMENOrdering Facility: [facility] Address: [address] [place] [address] Performed By: #### 5 8410-2 ####[facility] LABORATORYCLIA [id number] [address] [place] Platelets (Bld) [#/Vol] 337 10*3/uL Normal 150-400 [facility] Comment on above: Order Comment: Speci men Type: BLOOD SPECIMENOrdering Facility: [facility] Address: [address] [place] [address] Performed By: #### 5 8410-2 ####[facility] LABORATORYCLIA [id number] [place] [address] [place] RBC (Bld) [#/Vol] 4.88 10*6/uL Normal 3.90-5.20 [facility] Comment on above: Order Comment: Speci men Type: BLOOD SPECIMENOrdering Facility: [facility] Address: [address] [place] [address] Performed By: #### 5 8410-2 ####[facility] LABORATORYCLIA [id number] [address] WBC (Bld) [#/Vol] 12.10 10*3/uL High 3.70-11.00 [facility] Comment on above: Order Comment: Speci men Type: BLOOD SPECIMENOrdering Facility: [facility] Address: [address] [place] [address] Performed By: #### 5 8410-2 ####[facility] LABORATORYCLIA [id number] [address] [place] Magnesium SerPl-mCncon 03-04 Magnesium [Mass/Vol] 2.3 mg/dL Normal 1.7-2.3 [facility] Comment on above: Order Comment: Speci men Type: BLOOD SPECIMENOrdering Facility: [facility] Address: [address] [place] [address] Performed By: #### 1 9123-9, 56058-4, 08956-2 ####[facility] LABORATORYCLIA [id number] [address] [place] NT-proBNP SerPl-mCncon 03-04 Natriuretic peptide.B prohormone N-Terminal [Mass/Vol] 04740 pg/mL High <450 [facility] Comment on above: Order Comment: Speci men Type: BLOOD SPECIMENOrdering Facility: [facility] Address: [address] [place] [id number] Performed By: #### 1 9123-9, 54880-2, 79666-2 ####[facility] LABORATORYCLIA [id number] [address] THERAPY NTon 03-04-2025 THERAPY NT HNO ID: [id number] Author: PEYTON MARX RRT Service: Respiratory Therapy Author Type: Registered Resp Therapist Type: Therapy (PT/OT/Speech/Resp) Filed: 03/04/2025 23:46 Note Text: RESPIRATORY THERAPY PROGRESS NOTE SERVICE DATE: 03/04/2025 SERVICE TIME: 2336 Overnight Trending Pulse ox. study stopped. Pt is refusing pulse ox on finger. RN and AIRCRAFT MECHANIC ELECTRICAL AND RADIO aware SIGNATURE: Peyton Marx RRT PATIENT NAME: Na Good DATE: March 04, 2025 TIME: 11:45 PM PAGER/CONTACT #: Normal [facility] THERAPY NT HNO ID: [id number] Author: KRISS ZAMORA PT, DPT Service: Physical Therapy Author Type: Physical Therapist Type: Therapy (PT/OT/Speech/Resp) Filed: 03/04/2025 14:04 Note Text: Summary: PT evalaution Physical Therapy Evaluation Summary SERVICE DATE: 03/04/2025 SERVICE TIME: 1344 to 1356 ROOM: [id number]-[id number] PT 6 Clicks Score: 18 DISCHARGE RECOMMENDATIONS Home PT Recommended Discharge Disposition Comments: at [facility] Anticipated Discharge Needs: Physical Assist at Home, Supervision at Home Physical Assist at Home for: Cleaning, Laundry, Meals, Medication Management, Shopping, Transportation, Self Care, Transfers Supervision at Home due to: Other: See Comment (for safety) ASSESSMENT Response to Therapy Interventions: Good Participation in Activities Pt tolerated mobility well with ww, uses walking sticks (2) normally. Would be appropriate to return home to [facility] with previous level of assist and home PT. PRECAUTIONS Bed/Chair Alarm, Fall Risk, Lines/Tubes/Drains CURRENT HOSPITAL COURSE Patient presents with SOB, admitted for acute on chronic CHF Relevant Past Medical History: ASCVA, CAD, CHF, HTN, insomnia, LV mural thrombus, tremor, cardiomyopathy HOME LIVING Patient Lives With: Facility Care, Other: See Comment Comments: [facility] Assistance Available: 24-Hour Entry To Home: No [...] DATE: March 04, 2025 TIME: 2:04 PM [facility] THERAPY NT HNO ID: [id number] Author: CAROLE HUGHES OT/Amy Service: Occupational Therapy Author Type: Occupational Therapist Type: Therapy (PT/OT/Speech/Resp) Filed: 03/04/2025 11:59 Note Text: Summary: OT Evaluation Occupational Therapy Evaluation Summary SERVICE DATE: 03/04/2025 SERVICE TIME: 1119 to 1152 ROOM: [id number]-3K-3443-1 OT 6 Clicks Score: 18 DISCHARGE RECOMMENDATIONS [...] SOB, SpO2 >93% throughout, pt is extremely [place] with baseline visual impairments, appears to be near baseline with ADLs, eager to return to [facility] PRECAUTIONS Bed/Chair Alarm, Fall Risk, Lines/Tubes/Drains CURRENT HOSPITAL COURSE Patient presents with SOB, admitted for acute on chronic CHF Relevant Past Medical History: ASCVA, CAD, CHF, HTN, insomnia, LV mural thrombus, tremor, cardiomyopathy HOME LIVING Patient Lives With: Facility Care, Other: See Comment Comments: [facility] Assistance Available: 24-Hour Entry To Home: No [...] pt is eager to return home to [facility] COGNITION Orientation Deficits: (AOx4) Responsiveness: Alert, Awake Follows Commands: 3-step Commands THERAPY DIAGNOSIS Reduced mobility-other, Decreased activities of daily living (ADL), Muscle Weakness (generalized) TREATMENT INTERVENTIONS Evaluation, Self Longterm Management (66374) Timed Code Treatment (minutes): 18 Skilled Treatment Time (minutes): 33 TRAINING AND EDUCATION PROVIDED Activity Adaptation/Director Of Recruitment And Admissions y Strategies, Adaptive Equipment/DME, Bed Mobility, Benefits of In-Hospital Mobility, Cognitive Skills, Command Following, Discharge Planning, Expected Functional Level, Functional Mobility Involving ADLs, Insight into Deficits, Orientation, Memory/Attention, Positioning, Safety/Judgment, Role of Occupational Therapy, Sitting Balance to Improve [place] with ADLs/Self-Care, Standing Balance to Improve [place] with ADLs/Self-Care, Transfer - Sit to Stand [...] Chair Toilet/Commode (more content not included)... Normal [facility] Basic metabolic 2000 panelon 03-03-2025 Anion gap [Moles/Vol] 13 mmol/L Normal -15 [facility] Comment on above: Order Comment: Speci men Type: BLOOD SPECIMENOrdering Facility: [facility] Address: [address] [place] [address] Performed By: #### 2 4321-2, 53010-0 ####BA[facility] LABORATORYCLIA [id number] [place] [address] [place] Calcium [Mass/Vol] 9.6 mg/dL Normal 8.5-10.2 [facility] Comment on above: Order Comment: Speci men Type: BLOOD SPECIMENOrdering Facility: [facility] Address: [address] [place] [address] Performed By: #### 2 4321-2, ####[facility] LABORATORYCLIA [id number] [place] [address] [place] Chloride [Moles/Vol] 99 mmol/L Normal 98-107 [facility] Comment on above: Order Comment: Speci men Type: BLOOD SPECIMENOrdering Facility: [facility] Address: [address] [place] [address] Performed By: #### 2 4321-2, ####[facility] LABORATORYCLIA [id number] [place] [address] [place] CO2 [Moles/Vol] 25 mmol/L Normal 22-30 [facility] Comment on above: Order Comment: Speci men Type: BLOOD SPECIMENOrdering Facility: [facility] Address: [address] [place] [address] Performed By: #### 2 4321-2, ####BA[facility] LABORATORYCLIA [id number] [place] [address] [place] Creatinine [Mass/Vol] 1.05 mg/dL High 0.58-0.96 [facility] Comment on above: Order Comment: Speci men Type: BLOOD SPECIMENOrdering Facility: [facility] Address: [address] [place] [id number] Performed By: #### 2 4321-2, ####[facility] LABORATORYCLIA [id number] [address] [place] eGFRcr SerPlBld CKD-EPI 2020 51 mL/min/1.73m??? Low >=60 [facility] Comment on above: Order Comment: Speci men Type: BLOOD SPECIMENOrdering Facility: [facility] Address: [address] [place] [address] Result Comment: Radha mated Glomerular Filtration Rate [...] actual GFR. Performed By: #### 2 432-, ####[facility] LABORATORYCLIA [id number] [place] [address] [place] Glucose [Mass/Vol] 100 mg/dL High 74-99 [facility] Comment on above: Order Comment: Vita florez Type: BLOOD SPECIMENOrdering Facility: [facility] Address: [address] [place] [address] Result Comment: The [place] Diabetes Association (ADA) provides guidance for cutoff [...] Medical Care in Diabetes 2016, [place] Diabetes Association. Diabetes Care. 2016.39(Suppl 1). Performed By: #### 2 4320-05, ####[facility] LABORATORYCLIA [id number] [place] [address] [place] Potassium [Moles/Vol] 4.1 mmol/L Normal 3.7-5.1 [facility] Comment on above: Order Comment: Vita florez Type: BLOOD SPECIMENOrdering Facility: [facility] Address: [address] [place] [id number] Performed By: #### 2 432-, ####[facility] LABORATORYCLIA [id number] [place] [address] [place] Sodium [Moles/Vol] 137 mmol/L Normal 136-144 [facility] Comment on above: Order Comment: Speci men Type: BLOOD SPECIMENOrdering Facility: [facility] Address: [address] [place] [address] [place] [address] Performed By: #### 2 4321-2, 59456-0 ####[facility] LABORATORYCLIA [id number] [address] [place] Urea nitrogen [Mass/Vol] 30 mg/dL High 7-21 [facility] Comment on above: Order Comment: Speci men Type: BLOOD SPECIMENOrdering Facility: [facility] Address: [address] [place] [address] Performed By: #### 2 432-2, ####[facility] LABORATORYCLIA [id number] [address] [place] CBC panel Auto (Bld)on 03-03 Erythrocyte distribution width (RBC) [Ratio] 17.2 % High 11.5-15.0 [facility] Comment on above: Order Comment: Speci men Type: BLOOD SPECIMENOrdering Facility: [facility] Address: [address] [place] [address] Performed By: #### 5 8410-2 ####[facility] LABORATORYCLIA [id number] [address] [place] Hematocrit (Bld) [Volume fraction] 41.9 % Normal 36.0-46.0 [facility] Comment on above: Order Comment: Speci men Type: BLOOD SPECIMENOrdering Facility: [facility] Address: [address] [place] [address] Performed By: #### 5 8410-2 ####[facility] LABORATORYCLIA [id number] [address] [place] Hemoglobin (Bld) [Mass/Vol] 13.9 g/dL Normal 11.5-15.5 [facility] Comment on above: Order Comment: Speci men Type: BLOOD SPECIMENOrdering Facility: [facility] Address: [address] [place] [address] Performed By: #### 5 8410-2 ####[facility] LABORATORYCLIA [id number] [address] MCH (RBC) [Entitic mass] 29.3 pg Normal 26.0-34.0 [facility] Comment on above: Order Comment: Speci men Type: BLOOD SPECIMENOrdering Facility: [facility] Address: [address] [place] [address] Performed By: #### 5 8410-2 ####[facility] LABORATORYCLIA [id number] [address] MCHC (RBC) [Mass/Vol] 33.2 g/dL Normal 30.5-36.0 [facility] Comment on above: Order Comment: Speci men Type: BLOOD SPECIMENOrdering Facility: [facility] Address: [address] [place] [address] Performed By: #### 5 8410-2 ####[facility] LABORATORYCLIA [id number] [address] MCV (RBC) [Entitic vol] 88.4 fL Normal 80.0-100.0 [facility] Comment on above: Order Comment: Speci men Type: BLOOD SPECIMENOrdering Facility: [facility] Address: [address] [place] [address] Performed By: #### 5 8410-2 ####[facility] LABORATORYCLIA [id number] [address] Nucleated RBC (Bld) [#/Vol] 10*3/uL Normal <0.01 [facility] Comment on above: Order Comment: Speci men Type: BLOOD SPECIMENOrdering Facility: [facility] Address: [address] [place] [address] Performed By: #### 5 8410-2 ####[facility] LABORATORYCLIA [id number] [address] Platelet mean volume (Bld) [Entitic vol] 10.9 fL Normal 9.0-12.7 [facility] Comment on above: Order Comment: Speci men Type: BLOOD SPECIMENOrdering Facility: [facility] Address: [address] [place] [address] Performed By: #### 5 8410-2 ####[facility] LABORATORYCLIA [id number] [address] Platelets (Bld) [#/Vol] 366 10*3/uL Normal 150-400 [facility] Comment on above: Order Comment: Speci men Type: BLOOD SPECIMENOrdering Facility: [facility] Address: [address] [place] [address] Performed By: #### 5 8410-2 ####[facility] LABORATORYCLIA [id number] [address] OF [facility] RBC (Bld) [#/Vol] 4.74 10*6/uL Normal 3.90-5.20 [facility] Comment on above: Order Comment: Speci men Type: BLOOD SPECIMENOrdering Facility: [facility] Address: [address] [place] [address] Performed By: #### 5 8410-2 ####[facility] LABORATORYCLIA [id number] [address] WBC (Bld) [#/Vol] 12.19 10*3/uL High 3.70-11.00 [facility] Comment on above: Order Comment: Speci men Type: BLOOD SPECIMENOrdering Facility: [facility] Address: [address] [place] [address] Performed By: #### 5 8410-2 ####[facility] LABORATORYCLIA [id number] [place] [id number] [facility] CONSULTon 03-03-2025 CONSULT HNO ID: [id number] Author: LIDIA ARMENTA APRN.AFFILIATE MARKETING COORDINATOR Service: Cardiovascular Medicine Author Type: Nurse Practitioner [...] 1+ MR, trace TR, 1-2+ AR, trace ME, mid ascending 3 cm, trivial Pericardial effusion [...] 03/03/2025 Time: 10:30 AM [facility] [place] [facility] Department of Cardiovascular Medicine SECTION OF REGIONAL CARDIOLOGY/[facility] Consultation Note Name: Na Good : 1935 Primary Physician: Alexey Vinson Sr, DO Consulting Physician: Bismark Sales MD Primary Biometric Technician: SERVICE DATE: March 03, 2025 REASON FOR [...] to her from the staff at the [facility]. She is short of [...] - GD (more content not included)... Normal [facility] Magnesium SerPl-mCncon 03-03 Magnesium [Mass/Vol] 2.6 mg/dL High 1.7-2.3 [facility] Comment on above: Order Comment: Speci men Type: BLOOD SPECIMENOrdering Facility: [facility] Address: [address] [place] [address] Performed By: #### 2 4321-2, 73124-0 ####[facility] LABORATORYCLIA [id number] [place] [address] [facility] NURSING PROGon 03-03-2025 NURSING PROG HNO ID: [id number] Author: ESCOBAR BRAXTON RN Service: Nursing Author Type: Registered Nurse Type: Nursing Progress Note Filed: 03/03/2025 15:19 Note Text: PATIENT EDUCATION HEART FAILURE PATIENT NAME: Na Good PATIENT LOCATION: [place] [address] [address] SURVIVAL SKILLS: Low Sodium Diet Weight Monitoring [...] family, Lucero, is at bedside. Pt is [place] and does not have her hearing aids. Friend states she resides at [facility] and gets medications and all meals provided. All of pt's children reside out of state, however, one of her children comes in each month to visit. Heart Failure Zones and handouts relating to survival skills left at bedside. Friend states pt's daughter will be here tomorrow or . Contact information in folder. Electronically Signed By: Escobar Braxton [facility] ALLIED HEALTHon 03-02-2025 ALLIED HEALTH HNO ID: [id number] Author: ALEX VENUTRA CT Service: Radiology Author Type: Technologist Type: [...] PRESENTS WITH AN IMPLANTABLE OR ATTACHED TEXTILE SLITTING MACHINE OPERATOR: No RADIOLOGY DEPARTMENT: General X-ray: Exam(s) Completed: Chest X-Ray PERIPHERAL IV DATA: Not applicable SIGNED BY: LAUREL Powell March 02, 2025 2:37 PM [facility] ALT SerPl-cCncon 03-02-2025 ALT [Catalytic activity/Vol] 45 U/L High 7-38 [facility] Comment on above: Order Comment: Vita florez Type: BLOOD SPECIMENOrdering Facility: [facility] Address: [address] [place] [address] Performed By: #### 1 920-8, MFA4075, 1741-09, 3015-06, 1987-08 ####[facility] LABORATORYCLIA [id number] [place] [address] [place] AST SerPl-cCncon 03-02-2025 AST [Catalytic activity/Vol] 52 U/L High 13-35 [facility] Comment on above: Order Comment: Vita florez Type: BLOOD SPECIMENOrdering Facility: [facility] Address: [address] [place] [address] Performed By: #### 1 920-8, [id number], 1746, 3015-06, 1987-08 ####BA[facility] LABORATORYCLIA [id number] [place] [address] [place] CBC W Auto Differential pane l (Bld)on 03-02-2025 Basophils (Bld) [#/Vol] 0.06 10*3/uL Normal <0.11 [facility] Comment on above: Order Comment: Speci men Type: BLOOD SPECIMENOrdering Facility: [facility] Address: [address] [place] [address] Performed By: #### 5 7021-8 ####[facility] LABORATORYCLIA [id number] [place] [address] [place] Basophils/100 WBC (Bld) 0.5 % Normal [facility] Comment on above: Order Comment: Speci men Type: BLOOD SPECIMENOrdering Facility: [facility] Address: [address] [place] [address] Performed By: #### 5 7021-8 ####[facility] LABORATORYCLIA [id number] [address] [place] Differential cell count method Nom (Bld) Auto Normal [facility] Comment on above: Order Comment: Speci men Type: BLOOD SPECIMENOrdering Facility: [facility] Address: [address] [place] [address] Performed By: #### 5 7021-8 ####BA[facility] LABORATORYCLIA [id number] [place] [address] [place] Eosinophils (Bld) [#/Vol] 10*3/uL Normal <0.46 [facility] Comment on above: Order Comment: Speci men Type: BLOOD SPECIMENOrdering Facility: [facility] Address: [address] [place] [address] Performed By: #### 5 7021-8 ####BAIRD LABORATORYCLIA [id number] [address] [place] Eosinophils/100 WBC (Bld) 0.1 % Normal [facility] Comment on above: Order Comment: Speci men Type: BLOOD SPECIMENOrdering Facility: [facility] Address: [address] [place] [address] Performed By: #### 5 7021-8 ####BAIRD LABORATORYCLIA [id number] [place] [address] [place] Erythrocyte distribution width (RBC) [Ratio] 17.2 % High 11.5-15.0 [facility] Comment on above: Order Comment: Speci men Type: BLOOD SPECIMENOrdering Facility: [facility] Address: [address] [place] [address] Performed By: #### 5 7021-8 ####BAIRD LABORATORYCLIA [id number] [place] [address] [place] Hematocrit (Bld) [Volume fraction] 42.3 % Normal 36.0-46.0 [facility] Comment on above: Order Comment: Speci men Type: BLOOD SPECIMENOrdering Facility: [facility] Address: [address] [place] [address] Performed By: #### 5 7021-8 ####BAIRD LABORATORYCLIA [id number] [place] [address] [place] Hemoglobin (Bld) [Mass/Vol] 14.1 g/dL Normal 11.5-15.5 [facility] Comment on above: Order Comment: Speci men Type: BLOOD SPECIMENOrdering Facility: [facility] Address: [address] [place] [address] Performed By: #### 5 7021-8 ####BAIRD LABORATORYCLIA [id number] [address] [place] Immature granulocytes (Bld) [#/Vol] 0.07 10*3/uL Normal <0.10 [facility] Comment on above: Order Comment: Speci men Type: BLOOD SPECIMENOrdering Facility: [facility] Address: [address] [place] [address] Performed By: #### 5 7021-8 ####BAIRD LABORATORYCLIA [id number] [address] [place] Immature granulocytes/100 WBC (Bld) 0.6 % Normal [facility] Comment on above: Order Comment: Speci men Type: BLOOD SPECIMENOrdering Facility: [facility] Address: [address] [place] [address] Performed By: #### 5 7021-8 ####BAIRD LABORATORYCLIA [id number] [address] [place] Lymphocytes (Bld) [#/Vol] 1.26 10*3/uL Normal 1.00-4.00 [facility] Comment on above: Order Comment: Speci men Type: BLOOD SPECIMENOrdering Facility: [facility] Address: [address] [place] [address] Performed By: #### 5 7021-8 ####BAIRD LABORATORYCLIA [id number] [address] Lymphocytes/100 WBC (Bld) 10.8 % Normal [facility] Comment on above: Order Comment: Speci men Type: BLOOD SPECIMENOrdering Facility: [facility] Address: [address] [place] [address] Performed By: #### 5 7021-8 ####BAIRD LABORATORYCLIA [id number] [address] MCH (RBC) [Entitic mass] 29.6 pg Normal 26.0-34.0 [facility] Comment on above: Order Comment: Speci men Type: BLOOD SPECIMENOrdering Facility: [facility] Address: [address] [place] [address] Performed By: #### 5 7021-8 ####BAIRD LABORATORYCLIA [id number] [address] MCHC (RBC) [Mass/Vol] 33.3 g/dL Normal 30.5-36.0 [facility] Comment on above: Order Comment: Speci men Type: BLOOD SPECIMENOrdering Facility: [facility] Address: [address] [place] [address] Performed By: #### 5 7021-8 ####BAIRD LABORATORYCLIA [id number] [address] MCV (RBC) [Entitic vol] 88.9 fL Normal 80.0-100.0 [facility] Comment on above: Order Comment: Speci men Type: BLOOD SPECIMENOrdering Facility: [facility] Address: [address] [place] [address] Performed By: #### 5 7021-8 ####BAIRD LABORATORYCLIA [id number] [place] [address] [place] Monocytes (Bld) [#/Vol] 1.08 10*3/uL High <0.87 [facility] Comment on above: Order Comment: Speci men Type: BLOOD SPECIMENOrdering Facility: [facility] Address: [address] [place] [address] Performed By: #### 5 7021-8 ####BAIRD LABORATORYCLIA [id number] [place] [id number] [place] Monocytes/100 WBC (Bld) 9.3 % Normal [facility] Comment on above: Order Comment: Speci men Type: BLOOD SPECIMENOrdering Facility: [facility] Address: [address] [place] [address] Performed By: #### 5 7021-8 ####BAIRD LABORATORYCLIA [id number] [place] [address] [place] Neutrophils (Bld) [#/Vol] 9.14 10*3/uL High 1.45-7.50 [facility] Comment on above: Order Comment: Speci men Type: BLOOD SPECIMENOrdering Facility: [facility] Address: [address] [place] [address] Performed By: #### 5 7021-8 ####BAIRD LABORATORYCLIA [id number] [place] [id number] [place] Neutrophils/100 WBC (Bld) 78.7 % Normal [facility] Comment on above: Order Comment: Speci men Type: BLOOD SPECIMENOrdering Facility: [facility] Address: [address] [place] [address] Performed By: #### 5 7021-8 ####BAIRD LABORATORYCLIA [id number] [place] [id number] [place] Nucleated RBC (Bld) [#/Vol] 10*3/uL Normal <0.01 [facility] Comment on above: Order Comment: Speci men Type: BLOOD SPECIMENOrdering Facility: [facility] Address: [address] [place] [address] Performed By: #### 5 7021-8 ####BAIRD LABORATORYCLIA [id number] [place] [id number] [place] Nucleated RBC/100 WBC (Bld) [Ratio] 0.0 /100 WBC Normal [facility] Comment on above: Order Comment: Speci men Type: BLOOD SPECIMENOrdering Facility: [facility] Address: [address] [place] [address] Performed By: #### 5 7021-8 ####BAIRD LABORATORYCLIA [id number] [place] [address] [place] Platelet mean volume (Bld) [Entitic vol] 10.8 fL Normal 9.0-12.7 [facility] Comment on above: Order Comment: Speci men Type: BLOOD SPECIMENOrdering Facility: [facility] Address: [address] [place] [address] Performed By: #### 5 7021-8 ####BAIRD LABORATORYCLIA [id number] [address] [place] Platelets (Bld) [#/Vol] 380 10*3/uL Normal 150-400 [facility] Comment on above: Order Comment: Speci men Type: BLOOD SPECIMENOrdering Facility: [facility] Address: [address] [place] [address] Performed By: #### 5 7021-8 ####BAIRD LABORATORYCLIA [id number] [place] [address] [place] RBC (Bld) [#/Vol] 4.76 10*6/uL Normal 3.90-5.20 [facility] Comment on above: Order Comment: Speci men Type: BLOOD SPECIMENOrdering Facility: [facility] Address: [address] [place] [address] Performed By: #### 5 7021-8 ####BAIRD LABORATORYCLIA [id number] [address] [place] WBC (Bld) [#/Vol] 11.62 10*3/uL High 3.70-11.00 [facility] Comment on above: Order Comment: Speci men Type: BLOOD SPECIMENOrdering Facility: [facility] Address: [address] [place] [address] Performed By: #### 5 7021-8 ####BA[facility] LABORATORYCLIA [id number] [address] CRP SerPl-mCncon 03-02-2025 CRP [Mass/Vol] 0.4 mg/dL Normal <0.9 [facility] Comment on above: Order Comment: Speci men Type: BLOOD SPECIMENOrdering Facility: [facility] Address: [address] [place] [address] Performed By: #### 1 920-8, IMD4467, 1742-6, 3016-3, 1987- ####BA[facility] LABORATORYCLIA [id number] [address] Comprehensive metabolic 2000 panelon 03-02-2025 Albumin [Mass/Vol] 4.2 g/dL Normal 3.9-4.9 [facility] Comment on above: Order Comment: Speci men Type: BLOOD SPECIMENOrdering Facility: [facility] Address: [address] [place] [address] Performed By: #### 2 4323-8, 10153-3, 15536-8 ####BA[facility] LABORATORYCLIA [id number] [address] ALP [Catalytic activity/Vol] 49 U/L Normal 34-123 [facility] Comment on above: Order Comment: Speci men Type: BLOOD SPECIMENOrdering Facility: [facility] Address: [address] [place] [address] Performed By: #### 2 4323-8, 36392-6, 78163-3 ####BA[facility] LABORATORYCLIA [id number] [address] ALT [Catalytic activity/Vol] Normal [facility] Comment on above: Order Comment: Speci men Type: BLOOD SPECIMENOrdering Facility: [facility] Address: [address] [place] [address] Result Comment: Unab le to assay due to interference from hemolysis. Suggest reorder as clinically indicated. Performed By: #### 2 4323-8, 94309-7, 45399-4 ####[facility] LABORATORYCLIA [id number] [place] [address] [place] Anion gap [Moles/Vol] 13 mmol/L Normal 8-15 [facility] Comment on above: Order Comment: Speci men Type: BLOOD SPECIMENOrdering Facility: [facility] Address: [address] [place] [address] Performed By: #### 2 4323-8, 60647-9, 57136-0 ####[facility] LABORATORYCLIA [id number] [place] [id number] [place] AST [Catalytic activity/Vol] Normal [facility] Comment on above: Order Comment: Speci men Type: BLOOD SPECIMENOrdering Facility: [facility] Address: [address] [place] [address] Result Comment: Unab le to assay due to interference from hemolysis. Suggest reorder as clinically indicated. Performed By: #### 2 4323-8, , 69772-1 ####[facility] LABORATORYCLIA [id number] [place] [address] [place] Bilirubin [Mass/Vol] 0.8 mg/dL Normal 0.2-1.3 [facility] Comment on above: Order Comment: Speci men Type: BLOOD SPECIMENOrdering Facility: [facility] Address: [address] [place] [address] Performed By: #### 2 4323-8, 03409-2, 86488-1 ####[facility] LABORATORYCLIA [id number] [place] [id number] [place] Calcium [Mass/Vol] 9.5 mg/dL Normal 8.5-10.2 [facility] Comment on above: Order Comment: Speci men Type: BLOOD SPECIMENOrdering Facility: [facility] Address: [address] [place] [address] Performed By: #### 2 4323-8, 97012-4, 15107-8 ####[facility] LABORATORYCLIA [id number] [place] [address] [place] Chloride [Moles/Vol] 98 mmol/L Normal 98-107 [facility] Comment on above: Order Comment: Speci men Type: BLOOD SPECIMENOrdering Facility: [facility] Address: [address] [place] [address] Performed By: #### 2 4323-8, 61789-7, 24792-4 ####BAIRD LABORATORYCLIA [id number] [place] [address] [place] CO2 [Moles/Vol] 22 mmol/L Normal 22-30 [facility] Comment on above: Order Comment: Speci men Type: BLOOD SPECIMENOrdering Facility: [facility] Address: [address] [place] [address] Performed By: #### 2 4323-8, , 98532-6 ####[facility] LABORATORYCLIA [id number] [address] STATES OF [facility] Creatinine [Mass/Vol] 0.89 mg/dL Normal 0.58-0.96 [facility] Comment on above: Order Comment: Speci men Type: BLOOD SPECIMENOrdering Facility: [facility] Address: [address] [place] [address] Performed By: #### 2 4323-8, 36084-2, 98769-1 ####[facility] LABORATORYCLIA [id number] [address] eGFRcr SerPlBld CKD-EPI 2020 62 mL/min/1.73m??? Normal >=60 [facility] Comment on above: Order Comment: Speci men Type: BLOOD SPECIMENOrdering Facility: [facility] Address: [address] [place] [address] Result Comment: Radha mated Glomerular Filtration Rate [...] actual GFR. Performed By: #### 2 4323-8, 66369-9, 55066-6 ####BAIRD LABORATORYCLIA [id number] [place] [address] [place] Glucose [Mass/Vol] 106 mg/dL High 74-99 [facility] Comment on above: Order Comment: Vita florez Type: BLOOD SPECIMENOrdering Facility: [facility] Address: [address] [place] [address] Result Comment: The [place] Diabetes Association (ADA) provides guidance for cutoff [...] Medical Care in Diabetes 2016, [place] Diabetes Association. Diabetes Care. 2016.39(Suppl 1). Performed By: #### 2 4323-8, 43139-3, 48313-2 ####[facility] LABORATORYCLIA [id number] [place] [id number] [place] Potassium [Moles/Vol] 5.2 mmol/L High 3.7-5.1 [facility] Comment on above: Order Comment: Vita florez Type: BLOOD SPECIMENOrdering Facility: [facility] Address: [address] [place] [address] Performed By: #### 2 4323-8, 17208-8, 37701-8 ####[facility] LABORATORYCLIA [id number] [place] [id number] [place] Protein [Mass/Vol] 6.8 g/dL Normal 6.3-8.0 [facility] Comment on above: Order Comment: Vita florez Type: BLOOD SPECIMENOrdering Facility: [facility] Address: [address] [place] [address] Performed By: #### 2 4323-8, 96826-3, 37496-4 ####BA[facility] LABORATORYCLIA [id number] [place] [id number] [place] Sodium [Moles/Vol] 133 mmol/L Low 136-144 [facility] Comment on above: Order Comment: Speci men Type: BLOOD SPECIMENOrdering Facility: [facility] Address: [address] [place] [address] Performed By: #### 2 4323-8, 56014-2, 13269-9 ####[facility] LABORATORYCLIA [id number] [place] [address] [place] [facility] Urea nitrogen [Mass/Vol] 32 mg/dL High 7-21 [facility] Comment on above: Order Comment: Speci men Type: BLOOD SPECIMENOrdering Facility: [facility] Address: [address] [place] [id number] Performed By: #### 2 4323-8, 45468-7, 42253-2 ####[facility] LABORATORYCLIA [id number] [address] [place] [id number] 03-02-2025 ECG01 Ventricular Rate : 8 0 BPM Atrial Rate : 80 BPM P-R Interval : 162 ms QRS Duration : 136 ms Q-T Interval : 416 ms QTC Calculation(Bazett) : 479 ms Calculated P Etoile : -15 degrees Calculated R Etoile : -57 degrees Calculated T Etoile : 121 degrees SINUS RHYTHM WITH OCCASIONAL PREMATURE VENTRICULAR COMPLEXES LEFT AXIS DEVIATION LEFT VENTRICULAR HYPERTROPHY WITH QRS WIDENING AND REPOLARIZATION ABNORMALITY ( R in aVL , Verona product , Romhilt-Weir ) POSSIBLE LATERAL INFARCT , AGE UNDETERMINED ABNORMAL ECG No Stemi Confirmed by BEATRIS GILLILAND DO ([id number]) on 03/02/2025 4:13:22 PM NAME : NA GOOD PID : [id number] : 1935 Gender : Female Race : ORD : Procedure Date : Mar 02 2025 14:54:51 Edit Date : Mar 02 2025 16:13:24 Diagnosis: SINUS RHYTHM WITH OCCASIONAL PREMATURE VENTRICULAR COMPLEXES LEFT AXIS DEVIATION LEFT VENTRICULAR HYPERTROPHY WITH QRS WIDENING AND REPOLARIZATION ABNORMALITY ( R in aVL , Verona product , Romhilt-Weir ) POSSIBLE LATERAL INFARCT , AGE UNDETERMINED ABNORMAL ECG No Stemi Confirmed by BEATRIS GILLILAND DO ([id number]) on 03/02/2025 4:13:22 PM Test Reason : Location : 1 : ER ED Overread By : BEATRIS GILLILAND DO Edited By : BEATRIS GILLILAND DO Referred By : , Acquired by : EVIN [facility] ED NOTEon 03-02-2025 ED NOTE HNO ID: [id number] Author: MELODIE CLEARY, LAKESHIA Service: Nursing Author Type: Registered Nurse Type: ED Notes Filed: 03/02/2025 14:03 Note Text: MD @ BEDSIDE for EVAL [facility] ED NOTE HNO ID: [id number] Author: KAMRON CR, LAKESHIA Service: Behavioral Health Author Type: Registered Nurse Type: ED Notes Filed: 03/02/2025 13:42 Note Text: pt dropped off from assisted living for Shortness of Breath pt states has been seen 3 times for same complaint [facility] ED PROV NOTEon 03-02-2025 ED PROV NOTE HNO ID: [id number] Author: BEATRIS GILLILAND DO Service: Emergency Medicine [...] 9.14 (*) 1.45 - 7.50 k/uL Abs [place]int[place] 1.08 (*) <0.87 k/uL All other components [...] ng/L All (more content not included)... Normal [facility] HIGH SENSITIVITY TROPONIN T (INITIAL)on 03-02-2025 Troponin T.cardiac High sensitivity method [Mass/Vol] 37 ng/L High <12 [facility] Comment on above: Order Comment: Vita florez Type: BLOOD SPECIMENOrdering Facility: [facility] Address: [address] [place] [address] Performed By: #### 1 920-8, HCX8816, 1742-6, 3016-3, 1988- ####[facility] LABORATORYCLIA [id number] [address] OF [facility] HIGH SENSITIVITY TROPONIN T (SECOND)on 03-02-2025 Troponin T.cardiac High sensitivity method [Mass/Vol] 37 ng/L High <12 [facility] Comment on above: Order Comment: Vita florez Type: BLOOD SPECIMEN [facility] Address: [address] [place] [id number] Performed By: #### 2 4321-2 #### [facility] CLIA [id number] [address] [place] [id number] [facility] HIGH SENSITIVITY TROPONIN T (THIRD) 3 HRS AFTER INITIALon 03-02-2025 Troponin T.cardiac High sensitivity method [Mass/Vol] 42 ng/L High <12 [facility] Comment on above: Order Comment: Speci men Type: BLOOD SPECIMENOrdering Facility: [facility] Address: [address] [place] [address] Performed By: #### L [id number] ####[facility] LABORATORYCLIA [id number] [place] [address] [facility] [place] HISTORY PHYSICALon HISTORY PHYSICAL HNO ID: [id number] Author: BISMARK SALES MD Service: General Internal [...] old female who is a resident of [facility] with PMH of non-ischemic cardiomyopathy, CAD, CHF [...] and B/L pleural effusion. BP mildly high, ME normal and pulse oxymetry on RA in [...] EOMI, JUAN (more content not included)... Normal [facility] Magnesium [Mass/Vol] 2.5 mg/dL High 1.7-2.3 [facility] Comment on above: Order Comment: Speci men Type: BLOOD SPECIMENOrdering Facility: [facility] Address: [address] [place] [address] Performed By: #### 2 4323-8, 63235-7, 96793-5 ####[facility] LABORATORYCLIA [id number] [address] NT-proBNP SerPl-mCncon 03-02 Natriuretic peptide.B prohormone N-Terminal [Mass/Vol] 46750 pg/mL High <450 [facility] Comment on above: Order Comment: Speci men Type: BLOOD SPECIMENOrdering Facility: [facility] Address: [address] [place] [address] Performed By: #### 2 4323-8, 33978-1, 15346-7 ####[facility] LABORATORYCLIA [id number] [address] [place] TSH SerPl-aCncon 03-02-2025 TSH Qn 0.498 m[IU]/L Normal 0.270-4.200 [facility] Comment on above: Order Comment: Speci men Type: BLOOD SPECIMENOrdering Facility: [facility] Address: [address] [place] [address] Performed By: #### 1 920-8, MEP0627, 1742-6, 3016-3, 1988- ####[facility] LABORATORYCLIA [id number] [place] [id number] [place] XR CHEST 1V FRONTAL [...] chest PA and lateral views is recommended. Machine Chocolate Molder: KONSTANTIN Transcribe Date/Time: Mar 02 2025 3:11P Dictated by : SANDHYA KHOURY MD This examination was interpreted and the report reviewed and electronically signed by: SANDHYA KHOURY MD on Mar 02 2025 3:16PM EST [id number] Normal [facility] Urine Cultureon 02-28-2025 URC UNKNOWN METHOD OF COLLECTION Organism is too fastidious for routine susceptibility studies. Aerococcus urinae Wallback Count 50,000-80,000 Normal [facility] Comment on above: Performed By: #### L 500.2500, L100.0500 #### [facility] [address] [place], [address] CNPPatricia 02-27-2025 LELAND Telephone (KRISTA) NA GOOD ([id number]) 1935 F Date Time Provider Department 02/27/25 LIDIA ARMENTA During your visit today, we recorded the following information about you: Merritt Salguero 02/27/2025 9:25 AM Signed Lidai Armenta APRN.[facility] Clerical Pool Can you please send my office note to her AL? TRIAL MGR there is Cameron (I forget his last [...] another encounter. They provided their fax number: [phone]. Faxed OV note to [facility]. Allergies As of Date: 02/27/2025 [...] Encounter Status:Closed by MERRITT SALGUERO on 02/27/25 [facility] Keely 02-26-2025 CNPN Telephone (KRISTA) NA GOOD ([id number]) 1935 F Date Time Provider Department 02/26/25 LIDIA ARMENTA During your visit today, we recorded the following information about you: Randell Moreno LPN 02/26/2025 7:34 AM Signed [facility] Results received via fax. Copy placed in PSS basket for scanning. Copy placed on desk of Sisi Armenta for review. Shamir 02/25/26 Sola [place] 02/26/2025 8:04 AM Signed Scan on 02/26/2025 8:03 AM by Sola Benjamin: [facility] Results Merritt Salguero 02/27/2025 10:22 AM Signed Patient's assisted living calling front worker stating they would like Lidia to sign [...] Assessed Reason for Visit: Results [95] Cmt: [facility] X-Ray Results Prescriptions as of [...] Encounter Status:Closed by JUAN PARSONS on 03/02/25 [facility] Vanita 02-25-2025 CNOV Office Visit (CARDMM ) NA GOOD ([id number]) 1935 F Date Time Provider Department 02/25/25 1:30 PM LIDIA ARMENTA During your visit today, we recorded the following information about you: Pulse Blood pressure Weight Height 95/minute 118/78 54.9 kg 1.575 m Lidia Amrenta, AIRCRAFT MECHANIC ELECTRICAL AND RADIO.AFFILIATE MARKETING COORDINATOR 02/25/2025 3:55 PM [facility] Department of Cardiovascular Medicine SECTION [...] a follow up visit. Recent admission to [facility] for acute diastolic HF Seen by and [...] She resides in an assisted living facility, [facility], and is accompanied by her [...] prior to the follow up. Lidia Armenta APRN.AFFILIATE MARKETING COORDINATOR Cardiology Nurse (more content not included)... Normal [facility] CBC-Complete Blood Cnt No Di ffon 02-24-2025 Erythrocyte distribution width (RBC) [Ratio] 16.4 % High 11.6-14.6 [facility] Comment on above: Order Comment: 546.1 Performed By: #### L 500.2500, L100.0500 #### [facility] [address] [place], [address] Hematocrit (Bld) [Volume fraction] 39.1 % Normal 37-47 [facility] Comment on above: Order Comment: 546.1 Performed By: #### L 500.2500, L100.0500 #### [facility] [address] [place], [address] Hemoglobin (Bld) [Mass/Vol] 13.1 g/dL Normal 12.0-15.0 [facility] Comment on above: Order Comment: 546.1 Performed By: #### L 500.2500, L100.0500 #### [facility] [address] [place], [address] MCH (RBC) [Entitic mass] 29.4 pg Normal 27.0-32.0 [facility] Comment on above: Order Comment: 546.1 Performed By: #### L 500.2500, L100.0500 #### [facility] [address] [place], [address] MCHC (RBC) [Mass/Vol] 33.5 g/dL Normal 32-36 [facility] Comment on above: Order Comment: 546.1 Performed By: #### L 500.2500, L100.0500 #### [facility] [address] [place], [address] MCV (RBC) [Entitic vol] 87.7 fL Normal 81-99 [facility] Comment on above: Order Comment: 546.1 Performed By: #### L 500.2500, L100.0500 #### [facility] [address] [place], [address] Platelet mean volume (Bld) [Entitic vol] 10.6 fL Normal 6.2-12.0 [facility] [facility] Comment on above: Order Comment: 546.1 Performed By: #### L 500.2500, L100.0500 #### [facility] [address] [place], [address] Platelets (Bld) [#/Vol] 359 10*3/uL Normal 150-450 [facility] Comment on above: Order Comment: 546.1 Performed By: #### L 500.2500, L100.0500 #### [facility] [address] [place], [address] RBC (Bld) [#/Vol] 4.46 10*6/uL Normal 4.2-5.4 [facility] Comment on above: Order Comment: 546.1 Performed By: #### L 500.2500, L100.0500 #### [facility] [address] [place], [address] RDW SD 52.3 fl High 35.1-43.9 [facility] Comment on above: Order Comment: 546.1 Performed By: #### L 500.2500, L100.0500 #### [facility] [address] [place], [address] WBC (Bld) [#/Vol] 9.6 10*3/uL Normal 4.4-11.0 [facility] Comment on above: Order Comment: 546.1 Performed By: #### L 500.2500, L100.0500 #### [facility] [address] [place], [address] Comprehensive Metabolic Prof ilon 02-24-2025 Albumin [Mass/Vol] 3.7 g/dL Normal 3.4-4.8 [facility] Comment on above: Order Comment: 546.1 Performed By: #### L 500.2500, L100.0500 #### [facility] [address] [place], [address] Albumin/Globulin [Mass ratio] 1.7 {ratio} Normal 0.9-2.4 [facility] Comment on above: Order Comment: 546.1 Performed By: #### L 500.2500, L100.0500 #### [facility] [address] [place], [address] ALK PHOS 38 U/L Normal 35-104 [facility] Comment on above: Order Comment: 546.1 Performed By: #### L 500.2500, L100.0500 #### [facility] [address] [place], [address] ALT [Catalytic activity/Vol] 27 U/L Normal <=34 [facility] Comment on above: Order Comment: 546.1 Performed By: #### L 500.2500, L100.0500 #### [facility] [address] [place], [address] AST [Catalytic activity/Vol] 35 U/L High <=31 [facility] Comment on above: Order Comment: 546.1 Performed By: #### L 500.2500, L100.0500 #### [facility] [address] [place], [address] Bilirubin [Mass/Vol] 0.65 mg/dL Normal 0.00-1.30 [facility] Comment on above: Order Comment: 546.1 Performed By: #### L 500.2500, L100.0500 #### [facility] [address] [place], [address] BUN/CRE 30.1 RATIO High 10-20 [facility] Comment on above: Order Comment: 546.1 Performed By: #### L 500.2500, L100.0500 #### [facility] [address] [place], [address] Calcium [Mass/Vol] 9.2 mg/dL Normal 7.6-11.0 [facility] Comment on above: Order Comment: 546.1 Performed By: #### L 500.2500, L100.0500 #### [facility] [address] [place], [address] Chloride [Moles/Vol] 103 mmol/L Normal 98-108 [facility] Comment on above: Order Comment: 546.1 Performed By: #### L 500.2500, L100.0500 #### [facility] [address] [place], [address] CO2 [Moles/Vol] 25.1 mmol/L Normal 21.0-32.0 [facility] Comment on above: Order Comment: 546.1 Performed By: #### L 500.2500, L100.0500 #### [facility] [address] [place], [address] Creatinine [Mass/Vol] 0.92 mg/dL Normal 0.70-1.20 [facility] Comment on above: Order Comment: 546.1 Performed By: #### L 500.2500, L100.0500 #### [facility] [address] [place], [address] GAP 9 Normal 5-15 [facility] Comment on above: Order Comment: 546.1 Performed By: #### L 500.2500, L100.0500 #### [facility] [address] [place], [address] GFR/1.73 sq M.predicted among non-blacks MDRD (S/P/Bld) [Vol rate/Area] 60 mL/min/{1.73_m2} Normal >60 [facility] Comment on above: Order Comment: 546.1 Result Comment: mL/m in/1.73m2 CKD-EPI Creatinine Equation (2020) Performed By: #### L 500.2500, L100.0500 #### [facility] [address] [place], [address] Globulin (S) [Mass/Vol] 2.1 g/dL Low 2.2-4.2 [facility] Comment on above: Order Comment: 546.1 Performed By: #### L 500.2500, L100.0500 #### [facility] [address] [place], [address] Glucose [Mass/Vol] 85 mg/dL Normal 70-99 [facility] Comment on above: Order Comment: 546.1 Performed By: #### L 500.2500, L100.0500 #### [facility] [address] [place], [address] Potassium [Moles/Vol] 4.6 mmol/L Normal 3.3-5.1 [facility] Comment on above: Order Comment: 546.1 Performed By: #### L 500.2500, L100.0500 #### [facility] [address] [place], [address] Sodium [Moles/Vol] 136 mmol/L Normal 133-145 [facility] Comment on above: Order Comment: 546.1 Performed By: #### L 500.2500, L100.0500 #### [facility] [address] [place], [address] T PROT 5.8 g/dL Low 5.9-8.4 [facility] Comment on above: Order Comment: 546.1 Performed By: #### L 500.2500, L100.0500 #### [facility] [address] [place], [address] Urea nitrogen [Mass/Vol] 28 mg/dL High 4-19 [facility] Comment on above: Order Comment: 546.1 Performed By: #### L 500.2500, L100.0500 #### [facility] [address] [place], [address] Thyroid Stim Hormone (TSH)on 02-24-2025 TSH 0.273 uIU/mL Low 0.300-4.200 [facility] Comment on above: Order Comment: 546.1 Performed By: #### L 500.2500, L100.0500 #### [facility] [address] [place], [address] Urinalysis, Completeon 02-24 BACTERIA 3+ /hpf Normal None Seen [facility] Comment on above: Order Comment: 546.1 Performed By: #### L 500.2500, L100.0500 #### [facility] [address] [place], [address] EPI,SQUAMOUS 0-5 SEEN Normal 5-10 [facility] Comment on above: Order Comment: 546.1 Performed By: #### L 500.2500, L100.0500 #### [facility] [address] [place], [address] WBC 10-25 SEEN Normal 0-5 [facility] Comment on above: Order Comment: 546.1 Performed By: #### L 500.2500, L100.0500 #### [facility] [address] [place], [address] Mucus Ql (Urine sed) 0 SEEN Normal [facility] Comment on above: Order Comment: 546.1 Performed By: #### L 500.2500, L100.0500 #### [facility] [address] [place], [address] RBC 0 SEEN Normal 0-5 [facility] Comment on above: Order Comment: 546.1 Performed By: #### L 500.2500, L100.0500 #### [facility] [address] [place], [address] Vitamin B12on 02-24-2025 Cobalamin (Vitamin B12) [Mass/Vol] 812 pg/mL Normal 180-914 [facility] Comment on above: Order Comment: 546.1 Performed By: #### L 500.2500, L100.0500 #### [facility] [address] [place], [address] CBC-Complete Blood Cnt No Di ffon 02-19-2025 Erythrocyte distribution width (RBC) [Ratio] 15.8 % High 11.6-14.6 [facility] Comment on above: Order Comment: 546.1 Performed By: #### L 500.2500, L100.0500 #### [facility] [facility] [address] [place], [address] Hematocrit (Bld) [Volume fraction] 37.2 % Normal 37-47 [facility] Comment on above: Order Comment: 546.1 Performed By: #### L 500.2500, L100.0500 #### [facility] [address] [place], [address] Hemoglobin (Bld) [Mass/Vol] 12.5 g/dL Normal 12.0-15.0 [facility] Comment on above: Order Comment: 546.1 Performed By: #### L 500.2500, L100.0500 #### [facility] [address] [place], [address] MCH (RBC) [Entitic mass] 29.2 pg Normal 27.0-32.0 [facility] Comment on above: Order Comment: 546.1 Performed By: #### L 500.2500, L100.0500 #### [facility] [address] [place], [address] MCHC (RBC) [Mass/Vol] 33.6 g/dL Normal 32-36 [facility] Comment on above: Order Comment: 546.1 Performed By: #### L 500.2500, L100.0500 #### [facility] [address] [place], [address] MCV (RBC) [Entitic vol] 86.9 fL Normal 81-99 [facility] Comment on above: Order Comment: 546.1 Performed By: #### L 500.2500, L100.0500 #### [facility] [address] [place], [address] Platelet mean volume (Bld) [Entitic vol] 10.8 fL Normal 6.2-12.0 [facility] Comment on above: Order Comment: 546.1 Performed By: #### L 500.2500, L100.0500 #### [facility] [address] [place], [address] Platelets (Bld) [#/Vol] 346 10*3/uL Normal 150-450 [facility] Comment on above: Order Comment: 546.1 Performed By: #### L 500.2500, L100.0500 #### [facility] [address] [place], [address] RBC (Bld) [#/Vol] 4.28 10*6/uL Normal 4.2-5.4 [facility] Comment on above: Order Comment: 546.1 Performed By: #### L 500.2500, L100.0500 #### [facility] [address] [place], [address] RDW SD 49.9 fl High 35.1-43.9 [facility] Comment on above: Order Comment: 546.1 Performed By: #### L 500.2500, L100.0500 #### [facility] [address] [place], [address] WBC (Bld) [#/Vol] 9.0 10*3/uL Normal 4.4-11.0 [facility] Comment on above: Order Comment: 546.1 Performed By: #### L 500.2500, L100.0500 #### [facility] [address] [place], [address] CNPNon 02-19-2025 [facility] Telephone ([facility]) NA GOOD ([id number]) 1935 F Date Time Provider Department 02/19/25 JOVANI COCHRAN CCHFMR During your visit today, we recorded the following information about you: Jovani Cochran APRN.VERONICA 02/19/2025 11:19 AM Signed Rec'd call from [facility] home regarding recent weight gain for [...] Date Reviewed: 02/04/2025 Reviewed by: Jovani Cochran APRN.AFFILIATE MARKETING COORDINATOR - Fully Assessed Prescriptions as of 02/19/2025 [...] Status:Closed by JOVANI COCHRAN on 02/19/25 Normal [facility] Comprehensive Metabolic Prof jalen 02-19-2025 Albumin [Mass/Vol] 3.3 g/dL Low 3.4-4.8 [facility] Comment on above: Order Comment: 546.1 Performed By: #### L 500.2500, L100.0500 #### [facility] [address] [place], [address] Albumin/Globulin [Mass ratio] 1.7 {ratio} Normal 0.9-2.4 [facility] Comment on above: Order Comment: 546.1 Performed By: #### L 500.2500, L100.0500 #### [facility] [address] [place], [address] ALK PHOS 36 U/L Normal 35-104 [facility] Comment on above: Order Comment: 546.1 Performed By: #### L 500.2500, L100.0500 #### [facility] [address] [place], [address] ALT [Catalytic activity/Vol] 22 U/L Normal <=34 [facility] Comment on above: Order Comment: 546.1 Performed By: #### L 500.2500, L100.0500 #### [facility] [address] [place], [address] AST [Catalytic activity/Vol] 31 U/L Normal <=31 [facility] Comment on above: Order Comment: 546.1 Performed By: #### L 500.2500, L100.0500 #### [facility] [address] [place], [address] Bilirubin [Mass/Vol] 0.56 mg/dL Normal 0.00-1.30 [facility] Comment on above: Order Comment: 546.1 Performed By: #### L 500.2500, L100.0500 #### [facility] [address] [place], [address] BUN/CRE 22.5 RATIO High 10-20 [facility] Comment on above: Order Comment: 546.1 Performed By: #### L 500.2500, L100.0500 #### [facility] [address] [place], [address] Calcium [Mass/Vol] 8.4 mg/dL Normal 7.6-11.0 [facility] Comment on above: Order Comment: 546.1 Performed By: #### L 500.2500, L100.0500 #### [facility] [address] [place], [address] Chloride [Moles/Vol] 101 mmol/L Normal 98-108 [facility] Comment on above: Order Comment: 546.1 Performed By: #### L 500.2500, L100.0500 #### [facility] [address] [place], [address] CO2 [Moles/Vol] 24.4 mmol/L Normal 21.0-32.0 [facility] Comment on above: Order Comment: 546.1 Performed By: #### L 500.2500, L100.0500 #### [facility] [address] [place], [address] Creatinine [Mass/Vol] 0.93 mg/dL Normal 0.70-1.20 [facility] Comment on above: Order Comment: 546.1 Performed By: #### L 500.2500, L100.0500 #### [facility] [address] [place], [address] GAP 10 Normal 5-15 [facility] Comment on above: Order Comment: 546.1 Performed By: #### L 500.2500, L100.0500 #### [facility] [address] [place], [address] GFR/1.73 sq M.predicted among non-blacks MDRD (S/P/Bld) [Vol rate/Area] 59 mL/min/{1.73_m2} Low >60 [facility] Comment on above: Order Comment: 546.1 Result Comment: mL/m in/1.73m2 CKD-EPI Creatinine Equation (2020) Performed By: #### L 500.2500, L100.0500 #### [facility] [address] [place], [address] Globulin (S) [Mass/Vol] 2.0 g/dL Low 2.2-4.2 [facility] Comment on above: Order Comment: 546.1 Performed By: #### L 500.2500, L100.0500 #### [facility] [address] [place], [address] Glucose [Mass/Vol] 66 mg/dL Low 70-99 [facility] Comment on above: Order Comment: 546.1 Performed By: #### L 500.2500, L100.0500 #### [facility] [address] [place], [address] Potassium [Moles/Vol] 4.1 mmol/L Normal 3.3-5.1 [facility] Comment on above: Order Comment: 546.1 Performed By: #### L 500.2500, L100.0500 #### [facility] [address] [place], [address] Sodium [Moles/Vol] 135 mmol/L Normal 133-145 [facility] Comment on above: Order Comment: 546.1 Performed By: #### L 500.2500, L100.0500 #### [facility] [address] [place], [address] T PROT 5.3 g/dL Low 5.9-8.4 [facility] Comment on above: Order Comment: 546.1 Performed By: #### L 500.2500, L100.0500 #### [facility] [address] [place], [address] Urea nitrogen [Mass/Vol] 21 mg/dL High 4-19 [facility] Comment on above: Order Comment: 546.1 Performed By: #### L 500.2500, L100.0500 #### [facility] [address] [place], [address] CNOVon 02-04-2025 CNOV Office Visit ([facility] ) NA GOOD ([id number]) 1935 F Date Time Provider Department 02/04/25 10:00 AM JOVANI COCHRAN [facility] During your visit today, we recorded the following information about you: Pulse Blood pressure Weight 89/minute 132/79 53.6 kg Jovani Cochran APRN.CNP 02/04/2025 1:00 PM Signed [facility] OUTPATIENT VISIT DATE February [...] 0 No curre (more content not included)... [facility] CNCOon 01-29-2025 CNCO Letter Text [facility] CNDSon 01-29-2025 CNDS HNO ID: [id number] Author: JULIO CESAR ALVAREZ MD Service: Hospital [...] HFrEF (heart failure with reduced ejection fraction) ([facility]) Unknown Difficulty sleeping Unknown Shortness [...] During patient's hospitalization called patient's power of deputy prosecuting attorney and explained hospital course and need for follow up. Patient's hospital course and need for follow-up were explained to patient as well who is in understanding. Patient will need follow-up with primary care physician and cardiology soon after discharge from hospital. OPERATIONS/PROCEDURE DURING THIS HOSPITALIZATION: * No surgery found * CONSULTS DURING HOSPITALIZATION: Treatment Team: Primary Service: 3, [facility] PATIENT CONDITION AT DISCHARGE: Stable DISCHARGE [...] Center 02/04/2025 10:00 AM Jovani Cochran APRN.CNP [facility] 02/25/2025 1:30 PM Lidia Armenta APRN.VERONICA [facility] Discharge Information Row Name ED to Hosp-Admission (Discharged) from 01/27/2025 in [facility] Follow-Up Appointment Provider Name PCP: Alexey Espino DO - Other Follow-Up Type [facility]: [facility] - ALLERGIES Allergen Reactions Cortisone facial [...] Generic drug: spironola (more content not included)... [facility] NURSING PROGon 01-29-2025 NURSING PROG HNO ID: [id number] Author: RAULITO CHAVEZ, RN Service: Nursing Author Type: Registered Nurse Type: Nursing Progress Note Filed: 01/29/2025 15:28 Note Text: PATIENT EDUCATION HEART FAILURE PATIENT NAME: Na Good PATIENT LOCATION: [place] [address] [address] 1 SURVIVAL SKILLS: Low Sodium Diet Weight Monitoring and Dry Weight Importance of Follow Up after Discharge Fluid Restriction, if applicable Heart Failure Medications Symptom Management related to heart failure Activity / Physical Exercise Recommendations Smoking cessation counseling if applicable When Patient Should Call Provider Pt w/ [place], and poor vision; communication is difficult. She is unsure why she is here and wants to go home. Pt last seen by this department 12/24/24. I met w/ pt's son at that time. All children are of [facility]. Survival Skills were discussed w/ son. Son stated DRY weight b/t 122-125lb, pt weighted 122lb.@ that time. Today's weight is 125lb. Electronically Signed By: Raulito Chavez [facility] Basic metabolic 2000 panelon 01-28-2025 Anion gap [Moles/Vol] 11 mmol/L Normal 8-15 [facility] Comment on above: Order Comment: Vita florez Type: BLOOD SPECIMEN Ordering Facility: [facility] Address: [address] [place] [address] Performed By: #### 2 4321-2 #### [facility] CLIA [id number] [address] [place] [address] [place] Calcium [Mass/Vol] 8.9 mg/dL Normal 8.5-10.2 [facility] Comment on above: Order Comment: Vita florez Type: BLOOD SPECIMEN Ordering Facility: [facility] Address: [address] [place] [address] Performed By: #### 2 4321-2 #### [facility] CLIA [id number] [address] [place] [address] [place] Chloride [Moles/Vol] 103 mmol/L Normal 98-107 [facility] Comment on above: Order Comment: Speci men Type: BLOOD SPECIMEN Ordering Facility: [facility] Address: [address] [place] [address] Performed By: #### 2 4321-2 #### [facility] CLIA [id number] [address] [place] [address] [place] CO2 [Moles/Vol] 27 mmol/L Normal 22-30 [facility] Comment on above: Order Comment: Speci men Type: BLOOD SPECIMEN Ordering Facility: [facility] Address: [address] [place] [address] Performed By: #### 2 4321-2 #### [facility] CLIA [id number] [address] [place] [address] [place] Creatinine [Mass/Vol] 0.99 mg/dL High 0.58-0.96 [facility] Comment on above: Order Comment: Speci men Type: BLOOD SPECIMEN Ordering Facility: [facility] Address: [address] [place] [address] Performed By: #### 2 4321-2 #### [facility] CLIA [id number] [address] [place] eGFRcr SerPlBld CKD-EPI 2020 55 mL/min/1.73m??? Low >=60 [facility] Comment on above: Order Comment: Speci men Type: BLOOD SPECIMEN Ordering Facility: [facility] Address: [address] [place] [address] Result Comment: Radha mated Glomerular Filtration Rate [...] GFR. Performed By: #### 2 4321-2 #### [facility] CLIA [id number] [address] [place] Glucose [Mass/Vol] 83 mg/dL Normal 74-99 [facility] Comment on above: Order Comment: Speci men Type: BLOOD SPECIMEN Ordering Facility: [facility] Address: [address] [place] [address] Result Comment: The [place] Diabetes Association (ADA) provides guidance for cutoff [...] Medical Care in Diabetes 2016, [place] Diabetes Association. Diabetes Care. 2016.39(Suppl 1). Performed By: #### 2 4321-2 #### [facility] CLIA [id number] [address] [place] [address] [place] Potassium [Moles/Vol] 4.0 mmol/L Normal 3.7-5.1 [facility] Comment on above: Order Comment: Vita florez Type: BLOOD SPECIMEN Ordering Facility: [facility] Address: [address] [place] [address] Performed By: #### 2 4321-2 #### [facility] CLIA [id number] [address] [place] [address] [place] Sodium [Moles/Vol] 141 mmol/L Normal 136-144 [facility] Comment on above: Order Comment: Vita florez Type: BLOOD SPECIMEN Ordering Facility: [facility] Address: [address] [place] [id number] Performed By: #### 2 4321-2 #### [facility] CLIA [id number] [address] [place] [address] [place] Urea nitrogen [Mass/Vol] 25 mg/dL High 7-21 [facility] Comment on above: Order Comment: Vita florez Type: BLOOD SPECIMEN Ordering Facility: [facility] Address: [address] [place] [id number] Performed By: #### 2 4321-2 #### [facility] CLIA [id number] [address] CBC panel Auto (Bld)on 01-28 Erythrocyte distribution width (RBC) [Ratio] 15.8 % High 11.5-15.0 [facility] Comment on above: Order Comment: Speci men Type: BLOOD SPECIMENOrdering Facility: [facility] Address: [address] [place] [address] Performed By: #### 5 8410-2 ####[facility] [id number] [address] Hematocrit (Bld) [Volume fraction] 41.1 % Normal 36.0-46.0 [facility] Comment on above: Order Comment: Speci men Type: BLOOD SPECIMENOrdering Facility: [facility] Address: [address] [place] [address] Performed By: #### 5 8410-2 ####[place] LABORATORYCLIA [id number] [address] Hemoglobin (Bld) [Mass/Vol] 13.7 g/dL Normal 11.5-15.5 [facility] Comment on above: Order Comment: Speci men Type: BLOOD SPECIMENOrdering Facility: [facility] Address: [address] [place] [address] Performed By: #### 5 8410-2 ####[facility] LABORATORYCLIA [id number] [address] MCH (RBC) [Entitic mass] 29.6 pg Normal 26.0-34.0 [facility] Comment on above: Order Comment: Speci men Type: BLOOD SPECIMENOrdering Facility: [facility] Address: [address] [place] [address] Performed By: #### 5 8410-2 ####BAIRD LABORATORYCLIA [id number] [address] MCHC (RBC) [Mass/Vol] 33.3 g/dL Normal 30.5-36.0 [facility] Comment on above: Order Comment: Speci men Type: BLOOD SPECIMENOrdering Facility: [facility] Address: [address] [place] [address] Performed By: #### 5 8410-2 ####BAIRD LABORATORYCLIA [id number] [address] MCV (RBC) [Entitic vol] 88.8 fL Normal 80.0-100.0 [facility] Comment on above: Order Comment: Speci men Type: BLOOD SPECIMENOrdering Facility: [facility] Address: [address] [place] [address] Performed By: #### 5 8410-2 ####BAIRD LABORATORYCLIA [id number] [address] [place] Nucleated RBC (Bld) [#/Vol] 10*3/uL Normal <0.01 [facility] Comment on above: Order Comment: Speci men Type: BLOOD SPECIMENOrdering Facility: [facility] Address: [address] [place] [address] Performed By: #### 5 8410-2 ####BAIRD LABORATORYCLIA [id number] [address] Platelet mean volume (Bld) [Entitic vol] 10.9 fL Normal 9.0-12.7 [facility] Comment on above: Order Comment: Speci men Type: BLOOD SPECIMENOrdering Facility: [facility] Address: [address] [place] [address] Performed By: #### 5 8410-2 ####BAIRD LABORATORYCLIA [id number] [address] Platelets (Bld) [#/Vol] 330 10*3/uL Normal 150-400 [facility] Comment on above: Order Comment: Speci men Type: BLOOD SPECIMENOrdering Facility: [facility] Address: [address] [place] [address] Performed By: #### 5 8410-2 ####BAIRD LABORATORYCLIA [id number] [address] [place] RBC (Bld) [#/Vol] 4.63 10*6/uL Normal 3.90-5.20 [facility] Comment on above: Order Comment: Speci men Type: BLOOD SPECIMENOrdering Facility: [facility] Address: [address] [place] [address] Performed By: #### 5 8410-2 ####BAIRD LABORATORYCLIA [id number] [place] [id number] [facility] WBC (Bld) [#/Vol] 9.52 10*3/uL Normal 3.70-11.00 [facility] Comment on above: Order Comment: Speci men Type: BLOOD SPECIMENOrdering Facility: [facility] Address: [address] [id number] Performed By: #### 5 8410-2 ####BAIRD LABORATORYCLIA [id number] [place] [id number] [facility] CONSULTon 01-28-2025 CONSULT HNO ID: [id number] Author: AMY MARTINEZ MD Service: Cardiovascular Disease Author Type: Physician Type: Consults Filed: 01/28/2025 15:18 Note Text: [facility] CARDI[facility]ASCULAR MEDICINE CONSULT NOTE (Template ID [id number]) Na Good [id number] PRIMARY SERVICE: Internal Medicine CONSULTING SERVICE: Cardiovascular [...] syncope, paral (more content not included)... Normal [facility] THERAPY NT 01-28-2025 THERAPY NT HNO ID: [id number] Author: LOI HEWITT PT Service: Physical Therapy Author Type: Physical Therapist Type: Therapy (PT/OT/Speech/Resp) Filed: 01/28/2025 16:05 Note Text: Summary: PT evaluation Physical Therapy Evaluation Summary SERVICE DATE: 01/28/2025 SERVICE TIME: 1510 to 1528 ROOM: [id number]-2L-3518 PT 6 Clicks Score: 20 DISCHARGE RECOMMENDATIONS [...] on feet TREATMENT INTERVENTIONS Evaluation, Therapeutic Activity (54129), Gait Training (33146) Timed Code Treatment (minutes): 3 Skilled Treatment Time (minutes): 18 $ Evaluation-Low (33803) Billed Units: 1 unit Therapeutic Activity (75124) Treatment Minutes: 2 $ Therapeutic Activity (68968) Billed Units: 0 units Gait Training (50615) Treatment Minutes: 1 $ Gait Training (26753) Billed Units: 0 units TRAINING AND EDUCATION [...] posture and with (more content not included)... [facility] THERAPY NT HNO ID: [id number] Author: CAROLE HUGHES, OT/L Service: Occupational Therapy Author Type: Occupational Therapist Type: Therapy (PT/OT/Speech/Resp) Filed: 01/28/2025 14:56 Note Text: Summary: OT Evaluation Occupational Therapy Evaluation Summary SERVICE DATE: 01/28/2025 SERVICE TIME: 1418 to 1446 ROOM: [place] [address] OT 6 Clicks Score: 19 DISCHARGE RECOMMENDATIONS [...] ADLs and functional mobility/transfers, pt is very [place], follows commands appropriately, denies SOB during mobility, [...] Muscle Weakness (generalized) TREATMENT INTERVENTIONS Evaluation, Self Longterm Management (33483) Timed Code Treatment (minutes): 13 Skilled Treatment Time (minutes): 28 TRAINING AND EDUCATION PROVIDED Activity Adaptation/Director Of Recruitment And Admissions y Strategies, Adaptive Equipment/DME, Bed Mobility, Benefits of In-Hospital Mobility, Cognitive Skills, Command Following, Discharge Planning, Expected Functional Level, Functional Mobility Involving ADLs, Insight into Deficits, Lower Extremity Dressing, Memory/Attention, Orientation, Positioning, Role of Occupational Therapy, Safety/Judgment, Sitting Balance to Improve [place] with ADLs/Self-Care, Standing Balance to Improve [place] with ADLs/Self-Care, Transfer - Sit to Stand [...] and/or physical assistance. (more content not included)... [facility] ALLIED HEALTHon 01-27-2025 ALLIED HEALTH HNO ID: [id number] Author: CECILE BAIRES CT Service: Radiology Author [...] PRESENTS WITH AN IMPLANTABLE OR ATTACHED TEXTILE SLITTING MACHINE OPERATOR: No RADIOLOGY DEPARTMENT: General X-ray: Exam(s) Completed: Chest X-Ray PERIPHERAL IV DATA: Not applicable SIGNED BY: LAUREL Brooks January 27, 2025 1:24 PM [facility] Bacteria Ur Culton Bacteria identified Cx Nom (U) CULTURE, URINE: Normal urogenital tiffanie: ORGANISM ID: 1 >=100,000 CFU/ml Staphylococcus epidermidis No further workup. [facility] Comment on above: Performed By: #### 2 4356-8 ####[facility] LABORATORYCLIA [id number] [place], [place] [address] [place] [address] [place]#### 630-4 ####[facility] LABCLIA [id number] [address] [place] CBC W Auto Differential pane l (Bld)on 01-27-2025 Basophils (Bld) [#/Vol] 0.09 10*3/uL Normal <0.11 [facility] Comment on above: Order Comment: Speci men Type: BLOOD SPECIMENOrdering Facility: [facility] Address: [address] [place] [address] Performed By: #### 5 7021-8 ####BAIRD LABORATORYCLIA [id number] [address] STATES [facility] Basophils/100 WBC (Bld) 0.9 % Normal [facility] Comment on above: Order Comment: Speci men Type: BLOOD SPECIMENOrdering Facility: [facility] Address: [address] [place] [address] Performed By: #### 5 7021-8 ####BAIRD LABORATORYCLIA [id number] [place] [address] [place] Differential cell count method Nom (Bld) Auto Normal [facility] Comment on above: Order Comment: Speci men Type: BLOOD SPECIMENOrdering Facility: [facility] Address: [address] [place] [address] Performed By: #### 5 7021-8 ####BAIRD LABORATORYCLIA [id number] [place] [address] [place] Eosinophils (Bld) [#/Vol] 0.06 10*3/uL Normal <0.46 [facility] Comment on above: Order Comment: Speci men Type: BLOOD SPECIMENOrdering Facility: [facility] Address: [address] [place] [address] Performed By: #### 5 7021-8 ####[facility] LABORATORYCLIA [id number] [address] Eosinophils/100 WBC (Bld) 0.6 % Normal [facility] Comment on above: Order Comment: Speci men Type: BLOOD SPECIMENOrdering Facility: [facility] Address: [address] [place] [address] Performed By: #### 5 7021-8 ####BAIRD LABORATORYCLIA [id number] [address] [place] Erythrocyte distribution width (RBC) [Ratio] 15.9 % High 11.5-15.0 [facility] Comment on above: Order Comment: Speci men Type: BLOOD SPECIMENOrdering Facility: [facility] Address: [address] [place] [address] Performed By: #### 5 7021-8 ####BAIRD LABORATORYCLIA [id number] [place] [address] [place] Hematocrit (Bld) [Volume fraction] 45.1 % Normal 36.0-46.0 [facility] Comment on above: Order Comment: Speci men Type: BLOOD SPECIMENOrdering Facility: [facility] Address: [address] [place] [address] Performed By: #### 5 7021-8 ####BAIRD LABORATORYCLIA [id number] [place] [address] [place] Hemoglobin (Bld) [Mass/Vol] 14.5 g/dL Normal 11.5-15.5 [facility] Comment on above: Order Comment: Speci men Type: BLOOD SPECIMENOrdering Facility: [facility] Address: [address] [place] [address] Performed By: #### 5 7021-8 ####BAIRD LABORATORYCLIA [id number] [place] [address] [place] Immature granulocytes (Bld) [#/Vol] 0.04 10*3/uL Normal <0.10 [facility] Comment on above: Order Comment: Speci men Type: BLOOD SPECIMENOrdering Facility: [facility] Address: [address] [place] [address] Performed By: #### 5 7021-8 ####BAIRD LABORATORYCLIA [id number] [place] [address] [place] Immature granulocytes/100 WBC (Bld) 0.4 % Normal [facility] Comment on above: Order Comment: Speci men Type: BLOOD SPECIMENOrdering Facility: [facility] Address: [address] [place] [address] Performed By: #### 5 7021-8 ####BAIRD LABORATORYCLIA [id number] [place] [address] [place] Lymphocytes (Bld) [#/Vol] 1.30 10*3/uL Normal 1.00-4.00 [facility] Comment on above: Order Comment: Speci men Type: BLOOD SPECIMENOrdering Facility: [facility] Address: [address] [place] [address] Performed By: #### 5 7021-8 ####BA[facility] LABORATORYCLIA [id number] [address] Lymphocytes/100 WBC (Bld) 12.3 % Normal [facility] Comment on above: Order Comment: Speci men Type: BLOOD SPECIMENOrdering Facility: [facility] Address: [address] [place] [address] Performed By: #### 5 7021-8 ####BAIRD LABORATORYCLIA [id number] [address] [place] MCH (RBC) [Entitic mass] 29.2 pg Normal 26.0-34.0 [facility] Comment on above: Order Comment: Speci men Type: BLOOD SPECIMENOrdering Facility: [facility] Address: [address] [place] [address] Performed By: #### 5 7021-8 ####BA[facility] LABORATORYCLIA [id number] [address] [place] MCHC (RBC) [Mass/Vol] 32.2 g/dL Normal 30.5-36.0 [facility] Comment on above: Order Comment: Speci men Type: BLOOD SPECIMENOrdering Facility: [facility] Address: [address] [place] [address] Performed By: #### 5 7021-8 ####BA[facility] LABORATORYCLIA [id number] [address] MCV (RBC) [Entitic vol] 90.7 fL Normal 80.0-100.0 [facility] Comment on above: Order Comment: Speci men Type: BLOOD SPECIMENOrdering Facility: [facility] Address: [address] [place] [address] Performed By: #### 5 7021-8 ####BA[facility] LABORATORYCLIA [id number] [address] Monocytes (Bld) [#/Vol] 0.78 10*3/uL Normal <0.87 [facility] Comment on above: Order Comment: Speci men Type: BLOOD SPECIMENOrdering Facility: [facility] Address: [address] [place] [address] Performed By: #### 5 7021-8 ####BA[facility] LABORATORYCLIA [id number] [address] [place] Monocytes/100 WBC (Bld) 7.4 % Normal [facility] Comment on above: Order Comment: Speci men Type: BLOOD SPECIMENOrdering Facility: [facility] Address: [address] [place] [address] Performed By: #### 5 7021-8 ####BAIRD LABORATORYCLIA [id number] [place] [address] [place] Neutrophils (Bld) [#/Vol] 8.30 10*3/uL High 1.45-7.50 [facility] Comment on above: Order Comment: Speci men Type: BLOOD SPECIMENOrdering Facility: [facility] Address: [address] [place] [address] Performed By: #### 5 7021-8 ####BAIRD LABORATORYCLIA [id number] [place] [address] [place] Neutrophils/100 WBC (Bld) 78.4 % Normal [facility] Comment on above: Order Comment: Speci men Type: BLOOD SPECIMENOrdering Facility: [facility] Address: [address] [place] [address] Performed By: #### 5 7021-8 ####BAIRD LABORATORYCLIA [id number] [place] [address] [place] Nucleated RBC (Bld) [#/Vol] 10*3/uL Normal <0.01 [facility] Comment on above: Order Comment: Speci men Type: BLOOD SPECIMENOrdering Facility: [facility] Address: [address] [place] [address] Performed By: #### 5 7021-8 ####BAIRD LABORATORYCLIA [id number] [place] [address] [place] Nucleated RBC/100 WBC (Bld) [Ratio] 0.0 /100 WBC Normal [facility] Comment on above: Order Comment: Speci men Type: BLOOD SPECIMENOrdering Facility: [facility] Address: [facility] [address] Performed By: #### 5 7021-8 ####BAIRD LABORATORYCLIA [id number] [address] Platelet mean volume (Bld) [Entitic vol] 10.9 fL Normal 9.0-12.7 [facility] Comment on above: Order Comment: Speci men Type: BLOOD SPECIMENOrdering Facility: [facility] Address: [address] [place] [address] Performed By: #### 5 7021-8 ####BAIRD LABORATORYCLIA [id number] [address] [place] Platelets (Bld) [#/Vol] 389 10*3/uL Normal 150-400 [facility] Comment on above: Order Comment: Speci men Type: BLOOD SPECIMENOrdering Facility: [facility] Address: [address] [place] [address] Performed By: #### 5 7021-8 ####BAIRD LABORATORYCLIA [id number] [place] [address] [place] RBC (Bld) [#/Vol] 4.97 10*6/uL Normal 3.90-5.20 [facility] Comment on above: Order Comment: Speci men Type: BLOOD SPECIMENOrdering Facility: [facility] Address: [address] [place] [address] Performed By: #### 5 7021-8 ####BAIRD LABORATORYCLIA [id number] [address] [place] WBC (Bld) [#/Vol] 10.57 10*3/uL Normal 3.70-11.00 [facility] Comment on above: Order Comment: Speci men Type: BLOOD SPECIMENOrdering Facility: [facility] Address: [address] [place] [address] Performed By: #### 5 7021-8 ####BA[facility] LABORATORYCLIA [id number] [address] Comprehensive metabolic 2000 panelon 01-27-2025 Albumin [Mass/Vol] 4.3 g/dL Normal 3.9-4.9 [facility] Comment on above: Order Comment: Speci men Type: BLOOD SPECIMENOrdering Facility: [facility] Address: [address] [place] [address] Performed By: #### 1 9123-9, [id number], 96558-5, 31945-9 ####BA[facility] LABORATORYCLIA [id number] [place] [address] [place] ALP [Catalytic activity/Vol] 52 U/L Normal 34-123 [facility] Comment on above: Order Comment: Speci men Type: BLOOD SPECIMENOrdering Facility: [facility] Address: [facility] [place] [address] Performed By: #### 1 9123-9, [id number], 42525-1, 75561-7 ####BA[facility] LABORATORYCLIA [id number] [address] ALT [Catalytic activity/Vol] 30 U/L Normal 7-38 [facility] Comment on above: Order Comment: Speci men Type: BLOOD SPECIMENOrdering Facility: [facility] Address: [address] [place] [address] Performed By: #### 1 9123-9, ACY8126, 71525-0, 12493-5 ####BA[facility] LABORATORYCLIA [id number] [address] Anion gap [Moles/Vol] 13 mmol/L Normal 8-15 [facility] Comment on above: Order Comment: Speci men Type: BLOOD SPECIMENOrdering Facility: [facility] Address: [address] [place] [address] Performed By: #### 1 9123-9, [id number], 10439-9, 54476-3 ####BA[facility] LABORATORYCLIA [id number] [address] STATES [facility] AST [Catalytic activity/Vol] 41 U/L High 13-35 [facility] Comment on above: Order Comment: Speci men Type: BLOOD SPECIMENOrdering Facility: [facility] Address: [address] [place] [address] Performed By: #### 1 9123-9, IZL8515, 06779-1, 16763-4 ####BAIRD LABORATORYCLIA [id number] [place] [address] [place] Bilirubin [Mass/Vol] 0.7 mg/dL Normal 0.2-1.3 [facility] Comment on above: Order Comment: Speci men Type: BLOOD SPECIMENOrdering Facility: [facility] Address: [facility] [place] [address] Performed By: #### 1 9123-9, SFP7254, 14362-2, 58392-9 ####BAIRD LABORATORYCLIA [id number] [place] [address] [place] Calcium [Mass/Vol] 9.5 mg/dL Normal 8.5-10.2 [facility] Comment on above: Order Comment: Speci men Type: BLOOD SPECIMENOrdering Facility: [facility] Address: [facility] [place] [address] Performed By: #### 1 9123-9, DXQ3791, 60802-3, 45444-8 ####BAIRD LABORATORYCLIA [id number] [place] [address] [place] Chloride [Moles/Vol] 103 mmol/L Normal 98-107 [facility] Comment on above: Order Comment: Speci men Type: BLOOD SPECIMENOrdering Facility: [facility] Address: [facility] [place] [address] Performed By: #### 1 9123-9, ILW1068, 94820-0, 66748-1 ####BAIRD LABORATORYCLIA [id number] [place] [address] [place] CO2 [Moles/Vol] 25 mmol/L Normal 22-30 [facility] Comment on above: Order Comment: Speci men Type: BLOOD SPECIMENOrdering Facility: [facility] Address: [facility] [place] [address] Performed By: #### 1 9123-9, [id number], 92554-8, 41917-2 ####BA[facility] LABORATORYCLIA [id number] [address] Creatinine [Mass/Vol] 0.91 mg/dL Normal 0.58-0.96 [facility] Comment on above: Order Comment: Vita florez Type: BLOOD SPECIMENOrdering Facility: [facility] Address: [address] [place] [address] Performed By: #### 1 9123-9, [id number], 03977-7, 49678-9 ####[facility] LABORATORYCLIA [id number] [address] [place] eGFRcr SerPlBld CKD-EPI 2020 60 mL/min/1.73m??? Normal >=60 [facility] Comment on above: Order Comment: iVta florez Type: BLOOD SPECIMENOrdering Facility: [facility] Address: [address] [place] [address] Result Comment: Radha mated Glomerular Filtration Rate [...] actual GFR. Performed By: #### 1 9123-9, OUP5284, 89865-6, 38484-7 ####BAIRD LABORATORYCLIA [id number] [address] Glucose [Mass/Vol] 98 mg/dL Normal 74-99 [facility] Comment on above: Order Comment: Vita florez Type: BLOOD SPECIMENOrdering Facility: [facility] Address: [address] [place] [address] Result Comment: The [place] Diabetes Association (ADA) provides guidance for cutoff [...] Medical Care in Diabetes 2016, [place] Diabetes Association. Diabetes Care. 2016.39(Suppl 1). Performed By: #### 1 9123-9, AHO1126, 95719-1, 16932-5 ####BAIRD LABORATORYCLIA [id number] [place] [address] [place] Potassium [Moles/Vol] 4.8 mmol/L Normal 3.7-5.1 [facility] Comment on above: Order Comment: Speci men Type: BLOOD SPECIMENOrdering Facility: [facility] Address: [address] [place] [address] Performed By: #### 1 9123-9, SGB9102, 07475-3, 31418-1 ####BAIRD LABORATORYCLIA [id number] [place] [address] [place] Protein [Mass/Vol] 7.1 g/dL Normal 6.3-8.0 [facility] Comment on above: Order Comment: Speci men Type: BLOOD SPECIMENOrdering Facility: [facility] Address: [address] [place] [address] Performed By: #### 1 9123-9, HRG2705, 14596-3, 72122-7 ####BAIRD LABORATORYCLIA [id number] [place] [address] [place] Sodium [Moles/Vol] 141 mmol/L Normal 136-144 [facility] Comment on above: Order Comment: Speci men Type: BLOOD SPECIMENOrdering Facility: [facility] Address: [address] [place] [address] Performed By: #### 1 9123-9, CJC6583, 22804-6, 97981-5 ####BAIRD LABORATORYCLIA [id number] [place] [address] [place] Urea nitrogen [Mass/Vol] 25 mg/dL High 7-21 [facility] Comment on above: Order Comment: Speci men Type: BLOOD SPECIMENOrdering Facility: [facility] Address: [address] [place] [address] Performed By: #### 1 9123-9, [id number], 48791-6, 77698-9 ####[facility] LABORATORYCLIA [id number] [place] [address] [facility] ED NOTEon 01-27-2025 ED NOTE HNO ID: [id number] Author: MELODIE CLEARY RN Service: Nursing Author Type: Registered Nurse Type: ED Notes Filed: 01/27/2025 15:53 Note Text: This rn attempted to call Janelle dtr message left. [facility] ED NOTE HNO ID: [id number] Author: MELODIE CLEARY RN Service: Nursing Author Type: Registered Nurse Type: ED Notes Filed: 01/27/2025 15:53 Note Text: [facility] [place] [facility]. [facility] ED NOTE HNO ID: [id number] Author: MELODIE CLEARY RN Service: Nursing Author Type: Registered Nurse Type: ED Notes Filed: 01/27/2025 15:41 Note Text: This RN attempted to call nursing @ [facility] to update on pt current condition, DX AND admission to [facility], however, unable to reach nursing @ this time. Message to call this RN back was given. [facility] ED NOTE HNO ID: [id number] Author: MELODIE CLEARY RN Service: Nursing Author Type: Registered Nurse Type: ED Notes Filed: 01/27/2025 15:09 Note Text: Pt currently on pure wick external catheter. [facility] ED NOTE HNO ID: [id number] Author: MELODIE CLEARY RN Service: Nursing Author Type: Registered Nurse Type: ED Notes Filed: 01/27/2025 15:08 Note Text: 4 S charge aware report is in for 0405-1. [facility] ED NOTE HNO ID: [id number] Author: JUANCARLOS MARTINEZ RN Service: Nursing Author Type: Registered Nurse Type: ED Notes Filed: 01/27/2025 12:38 Note Text: MD rounds. [facility] ED PROGRESS NOTE (PROVIDER)o n 01-27-2025 ED PROGRESS NOTE (PROVIDER) HNO ID: [id number] Author: ZENOBIA CUNNINGHAM MD Service: ? Author Type: Physician Type: ED PROGRESS NOTE (PROVIDER) Filed: 01/27/2025 14:51 Note Text: ED CONTINUATION OF CARE NOTE Code Status: Prior Assumed care from: Dr. Gilliland Presentation / Findings / Interventions / Plan / Items to Follow Up: 89-year-old female who presents for from [facility] in [place] with a past medical history of congestive [...] Lasix and oxygen was initiated. Discussed with [facility] medicine on-call who will admit for diuresis. ED Course as of 01/27/25 1450 Others' Documentation Tue Jan 27, 2025 1359 CBC + DIFF(!): WBC 10.57 RBC 4.97 Hemoglobin 14.5 Hematocrit 45.1 MCV 90.7 MCH 29.2 MCHC 32.2 RDW-CV 15.9(!) Platelet Count 389 MPV 10.9 Neut% 78.4 Abs Neut (ANC) 8.30(!) Lymph% 12.3 Abs Lymph 1.30 [place]% 7.4 Abs [place] 0.78 Eosin% 0.6 Abs Eosin 0.06 Baso% [...] pneumothorax. [KS] 1411 EKG: Heart 92, NSR. ME 156. QTc 479. No ST elevations consistent with [place]. Nonspecific T wave changes. Left bundle appreciated [...] NO STEMI/Sgarbossa Confirmed by HELDER CABRERA DO ([id number]) on 01/27/2025 12:49:49 PM Medical Decision Making SIGNATURE: Zenobia Cunningham MD PATIENT NAME: Na Good DATE: January 27, 2025 TIME: 2:50 PM PAGER/CONTACT #: [facility] ED PROV NOTEon 01-27-2025 ED PROV NOTE HNO ID: [id number] Author: BEATRIS GILLILAND DO Service: Emergency Medicine Author Type: Physician Type: ED Provider Notes Filed: 01/27/2025 14:12 Note Text: ED Provider Note Patient Name: Na Good : 1935 SERVICE DATE: 01/27/25 History Patient presents with: Multiple Concerns: SHORTNESS OF BREATH THAT HAS BEEN ONGOING AND INSOMNIA; FROM [facility], 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 Normal [facility] EKGon 01-27-2025 Electrocardiogram Ventricular Rate : 9 2 BPM Atrial Rate : 92 BPM P-R Interval : 158 ms QRS Duration : 134 ms Q-T Interval : 388 ms QTC Calculation(Bazett) : 479 ms Calculated P Etoile : -4 degrees Calculated R Etoile : -35 degrees Calculated T Etoile : 137 degrees NORMAL SINUS RHYTHM LEFT AXIS DEVIATION LEFT BUNDLE BRANCH BLOCK ABNORMAL ECG NO STEMI/Sgarbossa Confirmed by HELDER CABRERA DO ([id number]) on 01/27/2025 12:49:49 PM NAME : NA GOOD PID : [id number] : 1935 Gender : Female Race : ORD : Procedure Date : Jan 27 2025 12:28:59 Edit Date : Jan 27 2025 12:49:52 Diagnosis: NORMAL SINUS RHYTHM LEFT AXIS DEVIATION LEFT BUNDLE BRANCH BLOCK ABNORMAL ECG NO STEMI/Sgarbossa Confirmed by HELDER CABRERA DO ([id number]) on 01/27/2025 12:49:49 PM Test Reason : Location : 1 : ER ED Overread By : HELDER CABRERA DO Edited By : HELDER CABRERA DO Referred By : , Acquired by : Edgar MARTINEZ [facility] HIGH SENSITIVITY TROPONIN T (INITIAL)on 01-27-2025 Troponin T.cardiac High sensitivity method [Mass/Vol] 32 ng/L High <12 [facility] Comment on above: Order Comment: Speci men Type: BLOOD SPECIMENOrdering Facility: [facility] Address: [address] [place] [address] Performed By: #### 1 9123-9, [id number], 10669-8, 33401-0 ####[facility] [id number] [address] HIGH SENSITIVITY TROPONIN T (SECOND)on 01-27-2025 Troponin T.cardiac High sensitivity method [Mass/Vol] 30 ng/L High <12 [facility] Comment on above: Order Comment: Speci men Type: BLOOD SPECIMENOrdering Facility: [facility] Address: [address] [place] [address] Performed By: #### L [id number] ####[facility] [id number] [address] HIGH SENSITIVITY TROPONIN T (THIRD) 3 HRS AFTER INITIALon 01-27-2025 Troponin T.cardiac High sensitivity method [Mass/Vol] 31 ng/L High <[address] [place] [address] Comment on above: Order Comment: Speci men Type: BLOOD SPECIMENOrdering Facility: [facility] Address: [address] [place] [address] Performed By: #### L [id number] ####[facility] [id number] [place] [id number] [facility] HISTORY PHYSICALon HISTORY PHYSICAL HNO ID: [id number] Author: ANIKA CALI MD Service: Hospital Medicine Author Type: Physician Type: H&P Filed: 01/27/2025 20:33 Note Text: HOSPITAL MEDICINE HISTORY AND PHYSICAL PCP: Johnson Watson MD, MD NIGHT AND WEEKEND COVERAGE: [place] COVERAGE: Days: [phone], please page attending physician. Nights: [phone], please page [facility] Night coverage pager [phone]. SUBJECTIVE Chief Complaint: sob HPI: 89-year-old female [...] pt/ot -case mgmt consult pt resides at [facility] [1] Social History Tobacco Use Smoking status: Never Vaping Use Vaping status: Never Used Substance Use Topics Alcohol use: Yes Comment: occasionally Drug use: Never Normal [facility] Magnesium SerPl-ncon 01-27 Magnesium [Mass/Vol] 2.5 mg/dL High 1.7-2.3 [facility] Comment on above: Order Comment: Speci men Type: BLOOD SPECIMENOrdering Facility: [facility] Address: [address] [place] [address] Performed By: #### 1 9123-9, [id number], 24117-3, 37148-8 ####[facility]ORY[facility] [id number] [place] [address] [place] [facility] Natriuretic peptide.B prohormone N-Terminal [Mass/Vol] 05988 pg/mL High <450 [facility] Comment on above: Order Comment: Speci men Type: BLOOD SPECIMENOrdering Facility: [facility] Address: [address] [place] [address] Performed By: #### 1 9123-9, [id number], 30489-0, 46390-8 ####[facility]ORY[facility] [id number] [place] [address] [place] Urinalysis complete panel (U )on 01-27-2025 Bacteria LM.HPF (Urine sed) [#/Area] Moderate Abnormal None Seen [facility] Comment on above: Order Comment: Speci men Type: URINE SPECIMENOrdering Facility: [facility] Address: [address] [place] [address] Performed By: #### 2 4356-8 ####[facility]ORYCLIA [id number] [place] [address] [place]#### 630-4 ####[facility] LAB[facility] [id number] [place] [id number] [place] Bilirubin Ql (U) Negative Normal Negative [facility] Comment on above: Order Comment: Speci men Type: URINE SPECIMENOrdering Facility: [facility] Address: [address] [place] [address] Performed By: #### 2 4356-8 ####[facility]ORYCLIA [id number] [place] [address] [place]#### 630-4 ####[facility] LAB[facility] [id number] [place] [address] [place] Clarity (Unsp spec) Slightly Cloudy Abnormal Clear [facility] Comment on above: Order Comment: Speci men Type: URINE SPECIMENOrdering Facility: [facility] Address: [address] [place] [address] Performed By: #### 2 4356-8 ####[facility]ATORYCLIA [id number] [place] [address] [place] [facility]#### 630-4 ####[facility] LAB[facility] [id number] [place] [id number] [place] Color (U) Yellow Normal Yellow [facility] Comment on above: Order Comment: Speci men Type: URINE SPECIMENOrdering Facility: [facility] Address: [address] [place] [address] Performed By: #### 2 4356-8 ####[facility]ORYCLIA [id number] [place] [address] [place]#### 630-4 ####[facility] LAB[facility] [id number] [place] [address] [place] Epithelial cells LM.HPF (Urine sed) [#/Area] Few Normal [facility] Comment on above: Order Comment: Speci men Type: URINE SPECIMENOrdering Facility: [facility] Address: [address] [place] [address] Performed By: #### 2 4356-8 ####[facility]ATORYCLIA [id number] [place] [address] [place]#### 630-4 ####[facility] LAB[facility] [id number] [place] [address] [place] Glucose Test strip (U) [Mass/Vol] 3+ Abnormal Negative [facility] Comment on above: Order Comment: Speci men Type: URINE SPECIMENOrdering Facility: [facility] Address: [address] [place] [address] Performed By: #### 2 4356-8 ####[facility]ATORYCLIA [id number] [place] [address] [place]#### 630-4 ####[facility] LAB[facility] [id number] [place] [address] [place] Hemoglobin Ql (U) Trace Abnormal Negative [facility] Comment on above: Order Comment: Speci men Type: URINE SPECIMENOrdering Facility: [facility] Address: [address] [place] [address] Performed By: #### 2 4356-8 ####[facility]ORATORYCLIA [id number] [place] [address] [place]#### 630-4 ####[facility] LAB[facility] [id number] [place] [address] [place] Ketones Ql (U) 1+ Abnormal Negative [facility] Comment on above: Order Comment: Speci men Type: URINE SPECIMENOrdering Facility: [facility] Address: [address] [place] [address] Performed By: #### 2 4356-8 ####[facility]ORATORYCLIA [id number] [address] [place]#### 630-4 ####[facility] LABCLIA [id number] [place] [id number] [place] Leukocyte esterase Test strip Ql (U) 1+ Abnormal Negative [facility] Comment on above: Order Comment: Speci men Type: URINE SPECIMENOrdering Facility: [facility] Address: [address] [place] [address] Performed By: #### 2 4356-8 ####[facility]ATORYCLIA [id number] [place] [address] [place]#### 630-4 ####[facility] LAB[facility] [id number] [place] [address] [place] Nitrite Ql (U) Positive Abnormal Negative [facility] Comment on above: Order Comment: Speci men Type: URINE SPECIMENOrdering Facility: [facility] Address: [address] [place] [address] Performed By: #### 2 4356-8 ####[facility]ATORYCLIA [id number] [place] [address] [place]#### 630-4 ####[facility] LABCL[facility] [id number] [place] [id number] [place] pH (U) 6.5 [pH] Normal 5.0-8.0 [facility] Comment on above: Order Comment: Speci men Type: URINE SPECIMENOrdering Facility: [facility] Address: [address] [place] [address] Performed By: #### 2 4356-8 ####[facility]ORATORYCLIA [id number] [place] [address] [place]#### 630-4 ####[facility] LAB[facility] [id number] [address] [place] Protein (U) [Mass/Vol] Trace Abnormal Negative [facility] Comment on above: Order Comment: Speci men Type: URINE SPECIMENOrdering Facility: [facility] Address: [address] [place] [address] Performed By: #### 2 4356-8 ####[facility]ORYCLIA [id number] [address]#### 630-4 ####[facility] LABCL[facility] [id number] [place] [address] [place] RBC LM.HPF (Urine sed) [#/Area] 0-3 /HPF Normal 0-3 /HPF [facility] Comment on above: Order Comment: Speci men Type: URINE SPECIMENOrdering Facility: [facility] Address: [address] [place] [address] Performed By: #### 2 4356-8 ####[facility]ORYCLIA [id number] [address] [place]#### 630-4 ####[facility] LABCL[facility] [id number] [address] [place] Specific gravity (U) [Rel density] 1.015 Normal 1.005-1.030 [facility] Comment on above: Order Comment: Speci men Type: URINE SPECIMENOrdering Facility: [facility] Address: [address] [place] [address] Performed By: #### 2 4356-8 ####[facility]ORATORYCLIA [id number] [place] [address] [facility] [place]#### 630-4 ####[facility] LABCL[facility] [id number] [place] [address] [place] Urobilinogen Ql (U) 0.2 EU/dL Normal 0.2-1.0 EU/dL [facility] Comment on above: Order Comment: Speci men Type: URINE SPECIMENOrdering Facility: [facility] Address: [address] [place], [place] [address] [id number] Performed By: #### 2 4356-8 ####[facility]ATORYCLIA [id number] [address]#### 630-4 ####[facility] LABCL[facility] [id number] [place] [address] [place] WBC LM.HPF (Urine sed) [#/Area] 11-25 /HPF Abnormal 0-5 /HPF [facility] Comment on above: Order Comment: Speci men Type: URINE SPECIMENOrdering Facility: [facility] Address: [address] [place] [address] Performed By: #### 2 4356-8 ####[facility]ORATORYCLIA [id number] [place] [address] [place]#### 630-4 ####[facility] LABCLIA [id number] [place] [address] [place] XR CHEST 1V [...] cardiomediastinal silhouette. Other: . 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, [address] Calcium [Mass/Vol] 8.8 mg/dL Normal 7.6-11.0 [facility] Comment on above: Order Comment: 546.1 Performed By: #### L 500.2500, L100.0500 #### [facility] [address] [place], [address] Chloride [Moles/Vol] 107 mmol/L Normal 98-108 [facility] Comment on above: Order Comment: 546.1 Performed By: #### L 500.2500, L100.0500 #### [facility] [address] [place], [address] CO2 [Moles/Vol] 26.2 mmol/L Normal 21.0-32.0 [facility] Comment on above: Order Comment: 546.1 Performed By: #### L 500.2500, L100.0500 #### [facility] [address] [place], [address] Creatinine [Mass/Vol] 1.09 mg/dL Normal 0.70-1.20 [facility] Comment on above: Order Comment: 546.1 Performed By: #### L 500.2500, L100.0500 #### [facility] [address] [place], [address] GAP 8 Normal -15 [facility] Comment on above: Order Comment: 546.1 Performed By: #### L 500.2500, L100.0500 #### [facility] [address] [place], [address] GFR/1.73 sq M.predicted among non-blacks MDRD (S/P/Bld) [Vol rate/Area] 49 mL/min/{1.73_m2} Low >60 [facility] Comment on above: Order Comment: 546.1 Result Comment: mL/m in/1.73m2 CKD-EPI Creatinine Equation (2020) Performed By: #### L 500.2500, L100.0500 #### [facility] [address] [place], [address] Glucose [Mass/Vol] 75 mg/dL Normal 70-99 [facility] Comment on above: Order Comment: 546.1 Performed By: #### L 500.2500, L100.0500 #### [facility] [address] [place], [address] Potassium [Moles/Vol] 4.1 mmol/L Normal 3.3-5.1 [facility] Comment on above: Order Comment: 546.1 Performed By: #### L 500.2500, L100.0500 #### [facility] [address] [place], [address] Sodium [Moles/Vol] 142 mmol/L Normal 133-145 [facility] Comment on above: Order Comment: 546.1 Performed By: #### L 500.2500, L100.0500 #### [facility] [address] [place], [address] Urea nitrogen [Mass/Vol] 24 mg/dL High 4-19 [facility] Comment on above: Order Comment: 546.1 Performed By: #### L 500.2500, L100.0500 #### [facility] [address] [place], [address] Basic Metabolic Profile (BMP )on 12-29-2024 BUN/CRE 30.7 RATIO High 10-20 [facility] Comment on above: Order Comment: 546.1 Performed By: #### L 500.2500, L100.0500 #### [facility] [address] [place], [address] Calcium [Mass/Vol] 9.1 mg/dL Normal 7.6-11.0 [facility] Comment on above: Order Comment: 546.1 Performed By: #### L 500.2500, L100.0500 #### [facility] [address] [place], [address] Chloride [Moles/Vol] 103 mmol/L Normal 98-108 [facility] Comment on above: Order Comment: 546.1 Performed By: #### L 500.2500, L100.0500 #### [facility] [address] [place], [address] CO2 [Moles/Vol] 22.2 mmol/L Normal 21.0-32.0 [facility] Comment on above: Order Comment: 546.1 Performed By: #### L 500.2500, L100.0500 #### [facility] [address] [place], [address] Creatinine [Mass/Vol] 0.88 mg/dL Normal 0.70-1.20 [facility] Comment on above: Order Comment: 546.1 Performed By: #### L 500.2500, L100.0500 #### [facility] [address] [place], [address] GAP 13 Normal 5-15 [facility] Comment on above: Order Comment: 546.1 Performed By: #### L 500.2500, L100.0500 #### [facility] [address] [place], [address] GFR/1.73 sq M.predicted among non-blacks MDRD (S/P/Bld) [Vol rate/Area] 63 mL/min/{1.73_m2} Normal >60 [facility] Comment on above: Order Comment: 546.1 Result Comment: mL/m in/1.73m2 CKD-EPI Creatinine Equation (2020) Performed By: #### L 500.2500, L100.0500 #### [facility] [address] [place], [address] Glucose [Mass/Vol] 78 mg/dL Normal 70-99 [facility] Comment on above: Order Comment: 546.1 Performed By: #### L 500.2500, L100.0500 #### [facility] [address] [place], [address] Potassium [Moles/Vol] 4.2 mmol/L Normal 3.3-5.1 [facility] Comment on above: Order Comment: 546.1 Performed By: #### L 500.2500, L100.0500 #### [facility] [address] [place], [address] Sodium [Moles/Vol] 138 mmol/L Normal 133-145 [facility] Comment on above: Order Comment: 546.1 Performed By: #### L 500.2500, L100.0500 #### [facility] [address] [place], [address] Urea nitrogen [Mass/Vol] 27 mg/dL High 4-19 [facility] Comment on above: Order Comment: 546.1 Performed By: #### L 500.2500, L100.0500 #### [facility] [address] [place], [address] CBC-Complete Blood Cnt No Di ffon 12-29-2024 Erythrocyte distribution width (RBC) [Ratio] 15.7 % High 11.6-14.6 [facility] Comment on above: Order Comment: 546-1 Performed By: #### L 100.0500, L500.2500 #### [facility] [address] [place], [address] Hematocrit (Bld) [Volume fraction] 41.1 % Normal 37-47 [facility] Comment on above: Order Comment: 546-1 Performed By: #### L 100.0500, L500.2500 #### [facility] [address] [place], [address] Hemoglobin (Bld) [Mass/Vol] 13.7 g/dL Normal 12.0-15.0 [facility] Comment on above: Order Comment: 546-1 Performed By: #### L 100.0500, L500.2500 #### [facility] [address] [place], [address] MCH (RBC) [Entitic mass] 30.0 pg Normal 27.0-32.0 [facility] Comment on above: Order Comment: 546-1 Performed By: #### L 100.0500, L500.2500 #### [facility] [address] [place], [address] MCHC (RBC) [Mass/Vol] 33.3 g/dL Normal 32-36 [facility] Comment on above: Order Comment: 546-1 Performed By: #### L 100.0500, L500.2500 #### [facility] [address] [place], [address] MCV (RBC) [Entitic vol] 90.1 fL Normal 81-99 [facility] Comment on above: Order Comment: 546-1 Performed By: #### L 100.0500, L500.2500 #### [facility] [address] [place], [address] Platelet mean volume (Bld) [Entitic vol] 10.7 fL Normal 6.2-12.0 [facility] Comment on above: Order Comment: 546-1 Performed By: #### L 100.0500, L500.2500 #### [facility] [address] [place], [address] Platelets (Bld) [#/Vol] 331 10*3/uL Normal 150-450 [facility] Comment on above: Order Comment: 546-1 Performed By: #### L 100.0500, L500.2500 #### [facility] [address] [place], [address] RBC (Bld) [#/Vol] 4.56 10*6/uL Normal 4.2-5.4 [facility] Comment on above: Order Comment: 546-1 Performed By: #### L 100.0500, L500.2500 #### [facility] [address] [place], [address] RDW SD 51.1 fl High 35.1-43.9 [facility] Comment on above: Order Comment: 546-1 Performed By: #### L 100.0500, L500.2500 #### [facility] [address] [place], [address] WBC (Bld) [#/Vol] 8.7 10*3/uL Normal 4.4-11.0 [facility] Comment on above: Order Comment: 546-1 Performed By: #### L 100.0500, L500.2500 #### [facility] [address] [place], [address] Basic metabolic 2000 panelon 12-27-2024 Anion gap [Moles/Vol] 11 mmol/L Normal 8-15 [facility] Comment on above: Order Comment: Speci men Type: BLOOD SPECIMEN [facility] Address: [address] [place] [address] Performed By: #### 2 4321-2 #### [facility] CLIA [id number] [address] [place] [address] [place] Calcium [Mass/Vol] 8.9 mg/dL Normal 8.5-10.2 [facility] Comment on above: Order Comment: Speci men Type: BLOOD SPECIMEN [facility] Address: [address] [place] [address] Performed By: #### 2 4321-2 #### [facility] CLIA [id number] [address] [place] [address] [place] Chloride [Moles/Vol] 97 mmol/L Low 98-107 [facility] Comment on above: Order Comment: Vita florez Type: BLOOD SPECIMEN [facility] Address: [address] [place] [address] Performed By: #### 2 4321-2 #### [facility] CLIA [id number] [address] [place] CO2 [Moles/Vol] 26 mmol/L Normal 22-30 [facility] Comment on above: Order Comment: Speci men Type: BLOOD SPECIMEN [facility] Address: [address] [place] [address] Performed By: #### 2 4321-2 #### [facility] CLIA [id number] [address] [place] [facility] Creatinine [Mass/Vol] 0.97 mg/dL High 0.58-0.96 [facility] Comment on above: Order Comment: Vita florez Type: BLOOD SPECIMEN [facility] Address: [address] [place] [address] Performed By: #### 2 4321-2 #### [facility] CLIA [id number] [address] eGFRcr SerPlBld CKD-EPI 2020 56 mL/min/1.73m??? Low >=60 [facility] Comment on above: Order Comment: Vita florez Type: BLOOD SPECIMEN [facility] Address: [address] [place] [address] Result Comment: Ardha mated Glomerular Filtration Rate (eGFR) is calculated [...] GFR. Performed By: #### 2 4321-2 #### [facility] CLIA [id number] [address] [place] Glucose [Mass/Vol] 84 mg/dL Normal 74-99 [facility] Comment on above: Order Comment: Vita florez Type: BLOOD SPECIMEN [facility] Address: [address] [place] [address] Result Comment: The [place] Diabetes Association (ADA) provides guidance for cutoff [...] Medical Care in Diabetes 2016, [place] Diabetes Association. Diabetes Care. 2016.39(Suppl 1). Performed By: #### 2 4321-2 #### [facility] CLIA [id number] [address] [place] [address] [place] Potassium [Moles/Vol] 3.6 mmol/L Low 3.7-5.1 [facility] Comment on above: Order Comment: Vita florez Type: BLOOD SPECIMEN [facility] Address: [address] [place] [address] Performed By: #### 2 4321-2 #### [facility] CLIA [id number] [address] [place] [address] [place] Sodium [Moles/Vol] 134 mmol/L Low 136-144 [facility] Comment on above: Order Comment: Vita florez Type: BLOOD SPECIMEN [facility] Address: [address] [place], [place] [address] Performed By: #### 2 4321-2 #### [facility] CLIA [id number] [address] [place] [address] [place] Urea nitrogen [Mass/Vol] 28 mg/dL High 7-21 [facility] Comment on above: Order Comment: Vita florez Type: BLOOD SPECIMEN Ordering Facility: [facility] Address: [address] [place] [address] Performed By: #### 2 4321-2 #### [facility] CLIA [id number] [place] CBC panel Auto (Bld)on 12-27 Erythrocyte distribution width (RBC) [Ratio] 15.6 % High 11.5-15.0 [facility] Comment on above: Order Comment: Speci men Type: BLOOD SPECIMENOrdering Facility: [facility] Address: [address] [place] [address] Performed By: #### 5 8410-2 ####[facility] [id number] [address] Hematocrit (Bld) [Volume fraction] 41.6 % Normal 36.0-46.0 [facility] Comment on above: Order Comment: Speci men Type: BLOOD SPECIMENOrdering Facility: [facility] Address: [address] [place] [address] Performed By: #### 5 8410-2 ####[facility] [id number] [address] Hemoglobin (Bld) [Mass/Vol] 13.9 g/dL Normal 11.5-15.5 [facility] Comment on above: Order Comment: Speci men Type: BLOOD SPECIMENOrdering Facility: [facility] Address: [address] [place] [address] Performed By: #### 5 8410-2 ####[facility] [id number] [address] MCH (RBC) [Entitic mass] 29.2 pg Normal 26.0-34.0 [facility] Comment on above: Order Comment: Speci men Type: BLOOD SPECIMENOrdering Facility: [facility] Address: [address] [place] [address] Performed By: #### 5 8410-2 ####[facility] [id number] [address] MCHC (RBC) [Mass/Vol] 33.4 g/dL Normal 30.5-36.0 [facility] Comment on above: Order Comment: Speci men Type: BLOOD SPECIMENOrdering Facility: [facility] Address: [address] [place] [address] Performed By: #### 5 8410-2 ####[facility] [id number] [place] [address] [place] MCV (RBC) [Entitic vol] 87.4 fL Normal 80.0-100.0 [facility] Comment on above: Order Comment: Speci men Type: BLOOD SPECIMENOrdering Facility: [facility] Address: [address] [place] [address] Performed By: #### 5 8410-2 ####[facility] [id number] [place] [address] [place] Nucleated RBC (Bld) [#/Vol] 10*3/uL Normal <0.01 [facility] Comment on above: Order Comment: Speci men Type: BLOOD SPECIMENOrdering Facility: [facility] Address: [address] [place] [address] Performed By: #### 5 8410-2 ####[facility] [id number] [place] [address] [place] Platelet mean volume (Bld) [Entitic vol] 10.2 fL Normal 9.0-12.7 [facility] Comment on above: Order Comment: Speci men Type: BLOOD SPECIMENOrdering Facility: [facility] Address: [address] [place] [address] Performed By: #### 5 8410-2 ####[facility] [id number] [place] [address] [place] Platelets (Bld) [#/Vol] 334 10*3/uL Normal 150-400 [facility] Comment on above: Order Comment: Speci men Type: BLOOD SPECIMENOrdering Facility: [facility] Address: [facility] [place] [address] Performed By: #### 5 8410-2 ####[facility] [id number] [place] [address] [place] RBC (Bld) [#/Vol] 4.76 10*6/uL Normal 3.90-5.20 [facility] Comment on above: Order Comment: Specsj gautam Type: BLOOD SPECIMENOrdering Facility: [facility] Address: [address] [place] [address] Performed By: #### 5 8410-2 ####[facility] [id number] [address] WBC (Bld) [#/Vol] 11.86 10*3/uL High 3.70-11.00 [facility] Comment on above: Order Comment: Speci men Type: BLOOD SPECIMENOrdering Facility: [facility] Address: [address] [place] [address] Performed By: #### 5 8410-2 ####[facility] [id number] [place] [id number] [facility] CNDSon 12-27-2024 CNDS HNO ID: [id number] Author: JOSE ANTONIO MILTON MD Service: General [...] being discharged to her Assisted Living with [facility] Transitions of Care Critical Issues: as above [...] medications will be mailed to you From: [facility] [place] [address] - [address] - [phone] enalapril 2.5 mg tablet furosemide 20 mg tablet FUTURE APPOINTMENTS: Follow Up with PCP: Johnson Watson MD, MD The patient's risk for 30-day readmission is determined using the following contributing factors: Predictive Model Details 11% (Low) Factor Value Calculated 12/27/2024 05:20 -16% diagnosis count 5 [facility] READMISSION RISK Model 11% Facility [facility] -8% ED visits (365d) 0 8% Hospital [address] -8% Admissions (365d) 1 -6% ED Encounter 0 -6% Sodium (Avg) 138.33 -5% Malnutrition 0 -5% Observations (365d) 0 -5% Current Age 89 Plan of care discussed with Patient, Family/Significant Other: son, Care Management, and RN I have performed the qozm-zz-gwto and relevant services for a total of >30 minutes. SIGNATURE: Jose Antonio Milton MD DATE: December 27, 2024 TIME: 10:38 AM Normal [facility] Basic metabolic 2000 panelon 12-26-2024 Anion gap [Moles/Vol] 11 mmol/L Normal 8-15 [facility] Comment on above: Order Comment: Speci men Type: BLOOD SPECIMENOrdering Facility: [facility] Address: [address] [place] [address] Performed By: #### 2 4321-2 ####[facility] [id number] [place] [address] [place] Calcium [Mass/Vol] 8.9 mg/dL Normal 8.5-10.2 [facility] Comment on above: Order Comment: Speci men Type: BLOOD SPECIMENOrdering Facility: [facility] Address: [address] [place] [address] Performed By: #### 2 4321-2 ####[facility] [id number] [place] [address] [place] Chloride [Moles/Vol] 101 mmol/L Normal 98-107 [facility] Comment on above: Order Comment: Speci men Type: BLOOD SPECIMENOrdering Facility: [facility] Address: [address] [place] [address] Performed By: #### 2 4321-2 ####[facility] [id number] [address] [place] CO2 [Moles/Vol] 28 mmol/L Normal 22-30 [facility] Comment on above: Order Comment: Speci men Type: BLOOD SPECIMENOrdering Facility: [facility] Address: [address] [place] [address] Performed By: #### 2 4321-2 ####[facility] [id number] [address] STATES [facility] Creatinine [Mass/Vol] 1.07 mg/dL High 0.58-0.96 [facility] Comment on above: Order Comment: Speci men Type: BLOOD SPECIMENOrdering Facility: [facility] Address: [address] [place] [address] Performed By: #### 2 4321-2 ####[facility] [id number] [address] STATES [facility] eGFRcr SerPlBld CKD-EPI 2020 50 mL/min/1.73m??? Low >=60 [facility] Comment on above: Order Comment: Speci gautam Type: BLOOD SPECIMENOrdering Facility: [facility] Address: [address] [place] [address] Result Comment: Radha mated Glomerular Filtration Rate [...] Performed By: #### 2 4321-2 ####[facility] [id number] [address] [place] Glucose [Mass/Vol] 77 mg/dL Normal 74-99 [facility] Comment on above: Order Comment: Valei men Type: BLOOD SPECIMENOrdering Facility: [facility] Address: [address] [place] [address] Result Comment: The [place] Diabetes Association (ADA) provides guidance for cutoff [...] Medical Care in Diabetes 2016, [place] Diabetes Association. Diabetes Care. 2016.39(Suppl 1). Performed By: #### 2 4321-2 ####[facility]IA [id number] [place] [address] [place] Potassium [Moles/Vol] 3.7 mmol/L Normal 3.7-5.1 [facility] Comment on above: Order Comment: Vita florez Type: BLOOD SPECIMENOrdering Facility: [facility] Address: [address] [place] [address] Performed By: #### 2 4321-2 ####[facility]IA [id number] [place] [address] [place] Sodium [Moles/Vol] 140 mmol/L Normal 136-144 [facility] Comment on above: Order Comment: Valei men Type: BLOOD SPECIMENOrdering Facility: [facility] Address: [address] [place] [address] Performed By: #### 2 4321-2 ####[facility]IA [id number] [place] [address] [place] Urea nitrogen [Mass/Vol] 31 mg/dL High 7-21 [facility] Comment on above: Order Comment: Valei men Type: BLOOD SPECIMENOrdering Facility: [facility] Address: [address] [place] [address] Performed By: #### 2 4321-2 ####[facility] [id number] [address] CBC panel Auto (Bld)on 12-26 Erythrocyte distribution width (RBC) [Ratio] 15.8 % High 11.5-15.0 [facility] Comment on above: Order Comment: Speci men Type: BLOOD SPECIMENOrdering Facility: [facility] Address: [address] [place] [address] Performed By: #### 5 8410-2 ####[facility] [id number] [address] Hematocrit (Bld) [Volume fraction] 41.9 % Normal 36.0-46.0 [facility] Comment on above: Order Comment: Speci men Type: BLOOD SPECIMENOrdering Facility: [facility] Address: [address] [place] [address] Performed By: #### 5 8410-2 ####[facility] [id number] [address] Hemoglobin (Bld) [Mass/Vol] 14.0 g/dL Normal 11.5-15.5 [facility] Comment on above: Order Comment: Speci men Type: BLOOD SPECIMENOrdering Facility: [facility] Address: [address] [place] [address] Performed By: #### 5 8410-2 ####[facility] [id number] [address] MCH (RBC) [Entitic mass] 29.7 pg Normal 26.0-34.0 [facility] Comment on above: Order Comment: Speci men Type: BLOOD SPECIMENOrdering Facility: [facility] Address: [address] [place] [address] Performed By: #### 5 8410-2 ####[facility] [id number] [address] MCHC (RBC) [Mass/Vol] 33.4 g/dL Normal 30.5-36.0 [facility] Comment on above: Order Comment: Speci men Type: BLOOD SPECIMENOrdering Facility: [facility] Address: [address] [place] [address] Performed By: #### 5 8410-2 ####[facility] [id number] [address] [place] MCV (RBC) [Entitic vol] 89.0 fL Normal 80.0-100.0 [facility] Comment on above: Order Comment: Speci men Type: BLOOD SPECIMENOrdering Facility: [facility] Address: [address] [place] [address] Performed By: #### 5 8410-2 ####[facility] [id number] [address] Nucleated RBC (Bld) [#/Vol] 10*3/uL Normal <0.01 [facility] Comment on above: Order Comment: Speci men Type: BLOOD SPECIMENOrdering Facility: [facility] Address: [address] [place] [address] Performed By: #### 5 8410-2 ####[facility] [id number] [address] [place] Platelet mean volume (Bld) [Entitic vol] 10.6 fL Normal 9.0-12.7 [facility] Comment on above: Order Comment: Speci men Type: BLOOD SPECIMENOrdering Facility: [facility] Address: [address] [place] [address] Performed By: #### 5 8410-2 ####[facility] [id number] [address] [place] Platelets (Bld) [#/Vol] 364 10*3/uL Normal 150-400 [facility] Comment on above: Order Comment: Speci men Type: BLOOD SPECIMENOrdering Facility: [facility] Address: [address] [place] [address] Performed By: #### 5 8410-2 ####[facility] [id number] [place] [address] [facility] [place] RBC (Bld) [#/Vol] 4.71 10*6/uL Normal 3.90-5.20 [facility] Comment on above: Order Comment: Specsj florez Type: BLOOD SPECIMENOrdering Facility: [facility] Address: [address] [place] [id number] Performed By: #### 5 8410-2 ####[facility] [id number] [address] [place] WBC (Bld) [#/Vol] 10.64 10*3/uL Normal 3.70-11.00 [facility] Comment on above: Order Comment: Speci men Type: BLOOD SPECIMENOrdering Facility: [facility] Address: [address] [place] [address] Performed By: #### 5 8410-2 ####[facility] [id number] [place] [id number] [facility] ECHOon 12-26-2024 Echocardiography Echocardiography Report: Transthoracic Echo [facility] Date of service: 12/26/2024 12:23:03 PM Ordering physician: COLLEEN OLIVARES Exam indication: cardiomyopathy Technologist: Caterina Mao [facility] Interpreting physician: Rojas Matthews MD [...] * * Final * * * CC [facility] : [id number] [facility] NURSING PROGon 12-26-2024 NURSING PROG HNO ID: [id number] Author: RAULITO CHAVEZ, LAKESHIA Service: Nursing Author Type: Registered Nurse Type: Nursing Progress Note Filed: 12/26/2024 14:50 Note Text: PATIENT EDUCATION HEART FAILURE PATIENT NAME: Na Good PATIENT LOCATION: [place] [address] [address] 2 SURVIVAL SKILLS: Low Sodium Diet Weight [...] Skill discussed. Pt in assisted living in [place], this is fairly new for her. Children are all out of states. Son will discuss daily weight and low sodium meal plan w/ staff. Currently she orders off a menu @ meal times. Pt doesn't drink over 64 ounces per day, but unsure of intake. Medications are provided to her @ [place]. 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 Pt states her normal weighs are b/t [...] Patient Education Electronically Signed By: Raulito Chavez [facility] THERAPY NTon 12-26-2024 THERAPY NT HNO ID: [id number] Author: LESLIE BARRERA PT Service: Physical Therapy Author Type: Physical Therapist Type: Therapy (PT/OT/Speech/Resp) Filed: 12/26/2024 11:56 Note Text: Summary: PT eval Physical Therapy Evaluation Summary SERVICE DATE: 12/26/2024 SERVICE TIME: 1123 to 1146 ROOM: [place] [address] PT 6 Clicks Score: 18 DISCHARGE RECOMMENDATIONS [...] HOME LIVING Patient Lives With: Facility Care ([facility]) Assistance Available: 24-Hour (has a necklace [...] on feet TREATMENT INTERVENTIONS Evaluation, Therapeutic Exercise (56340) Timed Code Treatment (minutes): 8 Skilled Treatment Time (minutes): 23 $ Evaluation-Low (19948) Billed Units: 1 unit Therapeutic Exercise (75938) Treatment Minutes: 8 $ Therapeutic Exercise (66694) Billed Units: 1 unit TRAINING AND EDUCATION [...] Equipment: Wheele (more content not included)... Normal [facility] Basic metabolic 2000 panelon 12-25-2024 Anion gap [Moles/Vol] 10 mmol/L Normal 8-15 [facility] Comment on above: Order Comment: Speci men Type: BLOOD SPECIMENOrdering Facility: [facility] Address: [address] [place] [address] Performed By: #### 2 4321-2, 3016-3 ####[facility] [id number] [place] [address] [place]#### 3024-7 ####[facility] LAB[facility] [id number] [place] [id number] [place] Calcium [Mass/Vol] 9.1 mg/dL Normal 8.5-10.2 [facility] Comment on above: Order Comment: Speci men Type: BLOOD SPECIMENOrdering Facility: [facility] Address: [address] [place] [address] Performed By: #### 2 4321-2, 6-3 ####[facility] [id number] [place] [address] [place]#### 3024-7 ####[facility] LAB[facility] [id number] [place] [address] [place] Chloride [Moles/Vol] 103 mmol/L Normal 98-107 [facility] Comment on above: Order Comment: Speci men Type: BLOOD SPECIMENOrdering Facility: [facility] Address: [address] [place] [address] Performed By: #### 2 4321-2, 3015-3 ####[facility]ORYCLIA [id number] [place] [address] [place]#### 3024-7 ####[facility] LAB[facility] [id number] [place] [address] [place] CO2 [Moles/Vol] 26 mmol/L Normal 22-30 [facility] Comment on above: Order Comment: Speci men Type: BLOOD SPECIMENOrdering Facility: [facility] Address: [address] [place] [address] Performed By: #### 2 4321-2, 3015-3 ####[facility]CLIA [id number] [place] [address] [place]#### 3024-7 ####[facility] LAB[facility] [id number] [place] [address] [place] Creatinine [Mass/Vol] 1.01 mg/dL High 0.58-0.96 [facility] Comment on above: Order Comment: Speci men Type: BLOOD SPECIMENOrdering Facility: [facility] Address: [address] [place] [id number] Performed By: #### 2 4321-2, 3016-3 ####[facility]IA [id number] [place] [address] [place]#### 3024-7 ####[facility] LABCLIA [id number] [place] [address] [place] eGFRcr SerPlBld CKD-EPI 2020 53 mL/min/1.73m??? Low >=60 [facility] Comment on above: Order Comment: Vita florez Type: BLOOD SPECIMENOrdering Facility: [facility] Address: [address] [place] [address] Result Comment: Radha mated Glomerular Filtration Rate [...] GFR. Performed By: #### 2 4321-2, 3016-3 ####[facility]IA [id number] [place] [address] [place]#### 3024-7 ####[facility] LABCLIA [id number] [place] [address] [place] Glucose [Mass/Vol] 80 mg/dL Normal 74-99 [facility] Comment on above: Order Comment: Vita florez Type: BLOOD SPECIMENOrdering Facility: [facility] Address: [address] [place] [address] Result Comment: The [place] Diabetes Association (ADA) provides guidance for cutoff [...] Medical Care in Diabetes 2016, [place] Diabetes Association. Diabetes Care. 2016.39(Suppl 1). Performed By: #### 2 4321-2, 6-3 ####[facility]ORYCLIA [id number] [place] [address] [place]#### 3024-7 ####[facility] LAB[facility] [id number] [address] [address] [place] Potassium [Moles/Vol] 4.3 mmol/L Normal 3.7-5.1 [facility] Comment on above: Order Comment: Speci men Type: BLOOD SPECIMENOrdering Facility: [facility] Address: [address] [place] [address] Performed By: #### 2 4320-2, 3015-3 ####[facility]ORYCLIA [id number] [place] [address] [place]#### 3024-7 ####[facility] LAB[facility] [id number] [place] [address] [place] Sodium [Moles/Vol] 139 mmol/L Normal 136-144 [facility] Comment on above: Order Comment: Speci men Type: BLOOD SPECIMENOrdering Facility: [facility] Address: [address] [place] [address] Performed By: #### 2 4320-2, 3015-3 ####[facility]ORYCLIA [id number] [place] [address] [place]#### 3024-7 ####[facility] LABCL[facility] [id number] [place] [address] [place] Urea nitrogen [Mass/Vol] 25 mg/dL High 7-21 [facility] Comment on above: Order Comment: Speci men Type: BLOOD SPECIMENOrdering Facility: [facility] Address: [address] [place] [address] Performed By: #### 2 4321-2, 3016-3 ####[facility]ORYCLIA [id number] [place] [address] [place]#### 3024-7 ####[facility] LABCL[facility] [id number] [address] [place] CBC panel Auto (Bld)on 12-25 Erythrocyte distribution width (RBC) [Ratio] 15.9 % High 11.5-15.0 [facility] Comment on above: Order Comment: Speci men Type: BLOOD SPECIMENOrdering Facility: [facility] Address: [address] [place] [address] Performed By: #### 5 8410-2 ####[facility]ORYCLIA [id number] [address] Hematocrit (Bld) [Volume fraction] 40.0 % Normal 36.0-46.0 [facility] Comment on above: Order Comment: Speci men Type: BLOOD SPECIMENOrdering Facility: [facility] Address: [address] [place] [address] Performed By: #### 5 8410-2 ####[facility]ATORYCLIA [id number] [address] STATES [facility] Hemoglobin (Bld) [Mass/Vol] 13.0 g/dL Normal 11.5-15.5 [facility] Comment on above: Order Comment: Speci men Type: BLOOD SPECIMENOrdering Facility: [facility] Address: [address] [place] [address] Performed By: #### 5 8410-2 ####[facility]ATORYCLIA [id number] [address] MCH (RBC) [Entitic mass] 29.1 pg Normal 26.0-34.0 [facility] Comment on above: Order Comment: Speci men Type: BLOOD SPECIMENOrdering Facility: [facility] Address: [address] [place] [address] Performed By: #### 5 8410-2 ####[facility]ATORYCLIA [id number] [address] [place] MCHC (RBC) [Mass/Vol] 32.5 g/dL Normal 30.5-36.0 [facility] Comment on above: Order Comment: Speci men Type: BLOOD SPECIMENOrdering Facility: [facility] Address: [address] [place] [address] Performed By: #### 5 8410-2 ####[facility]ORATORYCLIA [id number] [place] [address] [place] MCV (RBC) [Entitic vol] 89.7 fL Normal 80.0-100.0 [facility] Comment on above: Order Comment: Speci men Type: BLOOD SPECIMENOrdering Facility: [facility] Address: [address] [place] [address] Performed By: #### 5 8410-2 ####[facility]ORATORYCLIA [id number] [address] [place] Nucleated RBC (Bld) [#/Vol] 10*3/uL Normal <0.01 [facility] Comment on above: Order Comment: Speci men Type: BLOOD SPECIMENOrdering Facility: [facility] Address: [address] [place] [address] Performed By: #### 5 8410-2 ####[facility]ATORYCLIA [id number] [address] [place] Platelet mean volume (Bld) [Entitic vol] 10.2 fL Normal 9.0-12.7 [facility] Comment on above: Order Comment: Speci men Type: BLOOD SPECIMENOrdering Facility: [facility] Address: [address] [place] [address] Performed By: #### 5 8410-2 ####[facility] LABORATORYCLIA [id number] [place] [address] [place] Platelets (Bld) [#/Vol] 324 10*3/uL Normal 150-400 [facility] Comment on above: Order Comment: Speci men Type: BLOOD SPECIMENOrdering Facility: [facility] Address: [address] [place] [address] Performed By: #### 5 8410-2 ####[facility]ORATORYCLIA [id number] [place] [address] [place] RBC (Bld) [#/Vol] 4.46 10*6/uL Normal 3.90-5.20 [facility] Comment on above: Order Comment: Speci men Type: BLOOD SPECIMENOrdering Facility: [facility] Address: [address] [place] [address] Performed By: #### 5 8410-2 ####[facility]ORATORYCLIA [id number] [address] [place] WBC (Bld) [#/Vol] 9.63 10*3/uL Normal 3.70-11.00 [facility] Comment on above: Order Comment: Speci men Type: BLOOD SPECIMENOrdering Facility: [facility] Address: [address] [place] [address] Performed By: #### 5 8410-2 ####[facility]ORATORYCLIA [id number] [address] CONSULTon 12-25-2024 CONSULT HNO ID: [id number] Author: ROJAS MATTHEWS MD Service: Cardiovascular Medicine Author Type: Physician Type: Consults Filed: 12/25/2024 15:05 Note Text: . [facility] Department of Cardiovascular Medicine SECTION OF REGIONAL CARDIOLOGY/[facility] Consultation Note Name: Na Good : 1935 Primary Physician: Johnson Watson MD, MD Consulting Physician: Liam Smith MD Primary Biometric Technician: SERVICE DATE: December 25, 2024 ADMISSION HISTORY [...] diminished int (more content not included)... Normal [facility] HISTORY PHYSICALon HISTORY PHYSICAL HNO ID: [id number] Author: LIAM SMITH MD Service: General Internal Medicine Author Type: Physician Type: H&P Filed: 12/25/2024 14:11 Note Text: [facility] STAFF PHYSICIAN NOTE OF PERSONAL [...] counseling and/or coordinating care for the patient. Lrxw-bh-rooz time was 35 minutes SIGNATURE: Liam Smith [...] thrombus (eliquis), HTN, tremors, macular degeneration, CAD, [place], and insomnia. Her medical records in [facility] are from [place], [place]. Daughter, Janelle is at the bedside. (She is from [place]). She moved back to [place] in August due to the altitude- shortness of breath. She is residing at [facility] in [place]. She does not know all her medications as they administer them for her. She provided [place] paperwork. She is A/ox3, very [place], she uses 2 walking sticks to ambulate, she has NEW/ occasional dry, non productive cough, she is on RA, lungs diminished, no edema. 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 Daughter informs me while [...] Respiratory: P (more content not included)... Normal [facility] T4 Free SerPl-mCncon 025 Free T4 [Mass/Vol] 1.9 ng/dL High 0.9-1.7 [facility] Comment on above: Order Comment: Speci men Type: BLOOD SPECIMENOrdering Facility: [facility] Address: [address] [place] [address] Performed By: #### 2 4321-2, 3016-3 ####[facility]ORY[facility] [id number] [address] [place]#### 3024-7 ####[facility] [id number] [address] [place] THERAPY NTon 12-25-2024 THERAPY NT HNO ID: [id number] Author: CAROLE HUGHES OT/Amy Service: Occupational Therapy Author Type: Occupational Therapist Type: Therapy (PT/OT/Speech/Resp) Filed: 12/25/2024 11:37 Note Text: Summary: OT Evaluation Occupational Therapy Evaluation Summary SERVICE DATE: 12/25/2024 SERVICE TIME: 1103 to 1127 ROOM: [place] [address] OT 6 Clicks Score: 20 DISCHARGE RECOMMENDATIONS Home Recommended Discharge Disposition Comments: return to [facility] Anticipated Discharge Needs: Physical Assist at [...] baseline with ADLs and functional mobility/transfers, very [place], follows commands appropriately, reports no questions/concerns for returning to [facility] PRECAUTIONS Bed/Chair Alarm, Fall Risk CURRENT HOSPITAL COURSE Patient presents with abdominal pain and Shortness of Breath, admitted for acute on chronic CHF Relevant Past Medical History: cardiomyopathy, goiter, osteopenia, pleural effusions, macular degeneration, tremors, HTN, LV thrombus, CHF, [place], insomnia HOME LIVING Patient Lives With: Facility Care ([facility]) Assistance Available: 24-Hour (has a necklace [...] daily living (ADL) TREATMENT INTERVENTIONS Evaluation, Self Longterm Management (87344) Timed Code Treatment (minutes): 9 Skilled Treatment Time (minutes): 24 TRAINING AND EDUCATION PROVIDED Activity Adaptation/Director Of Recruitment And Admissions y Strategies, Adaptive Equipment/DME, Bed Mobility, Benefits of In-Hospital Mobility, Cognitive Skills, Command Following, Discharge Planning, Expected Functional Level, Functional Mobility Involving ADLs, Insight into Deficits, Lower Extremity Dressing, Memory/Attention, Orientation, Positioning, Role of Occupational Therapy, Safety/Judgment, Sitting Balance to Improve [place] with ADLs/Self-Care, Standing Balance to Improve [place] with ADLs/Self-Care, Transfer - Bed to Chair, [...] Toilet/Commode S (more content not included)... Normal [facility] TSH SerPl-aCncon 12-25-2024 TSH Qn 0.326 m[IU]/L Normal 0.270-4.200 [facility] Comment on above: Order Comment: Speci men Type: BLOOD SPECIMENOrdering Facility: [facility] Address: [address] [place] [address] Performed By: #### 2 4321-2, 3016-3 ####[facility]ORY[facility]IA [id number] [place] [address] [place]#### 3024-7 ####[facility] [id number] [place] [address] [place] ALLIED HEALTHon 12-24-2024 ALLIED HEALTH HNO ID: [id number] Author: PETER RAHMAN RT(R) Service: Radiology Author Type: Air Twister Winder Type: Allied Health Filed: 12/24/2024 13:03 Note [...] PRESENTS WITH AN IMPLANTABLE OR ATTACHED TEXTILE SLITTING MACHINE OPERATOR: No RADIOLOGY DEPARTMENT: General X-ray: Exam(s) Completed: Chest X-Ray PERIPHERAL IV DATA: Not applicable SIGNED BY: RT Lary(R) December 24, 2024 1:03 PM Normal [facility] Basic metabolic 2000 panelon 12-24-2024 Anion gap [Moles/Vol] 12 mmol/L Normal 8-15 [facility] Comment on above: Order Comment: Specsj florez Type: BLOOD SPECIMENOrdering Facility: [facility] Address: [address] [place] [address] Performed By: #### H STNT, 58006-4, 90110-9, 10102-1, 3015-3 ####[facility]ORYCLIA [id number] [place] [address] [place] Calcium [Mass/Vol] 9.5 mg/dL Normal 8.5-10.2 [facility] Comment on above: Order Comment: Valei gautam Type: BLOOD SPECIMENOrdering Facility: [facility] Address: [address] [place] [address] Performed By: #### H STNT, 86422-8, 99356-8, 86668-8, 3015-3 ####[facility]ORYCLIA [id number] [place] [id number] [place] Chloride [Moles/Vol] 101 mmol/L Normal 98-107 [facility] Comment on above: Order Comment: Speci men Type: BLOOD SPECIMENOrdering Facility: [facility] Address: [address] [place] [address] Performed By: #### H STNT, 94559-0, 37112-9, 57636-7, 3016-3 ####[facility]ORY[facility] [id number] [address] STATES OF [facility] CO2 [Moles/Vol] 23 mmol/L Normal 22-30 [facility] Comment on above: Order Comment: Speci men Type: BLOOD SPECIMENOrdering Facility: [facility] Address: [address] [place] [address] Performed By: #### H STNT, 95343-7, 82857-5, 89028-0, 6-3 ####[facility]ORYCLIA [id number] [address] [place] Creatinine [Mass/Vol] 0.87 mg/dL Normal 0.58-0.96 [facility] Comment on above: Order Comment: Speci men Type: BLOOD SPECIMENOrdering Facility: [facility] Address: [address] [place] [address] Performed By: #### H STNT, 41190-6, 04649-6, 90492-0, 3015-3 ####[facility]ATORYCLIA [id number] [address] [place] eGFRcr SerPlBld CKD-EPI 2020 64 mL/min/1.73m??? Normal >=60 [facility] Comment on above: Order Comment: Speci men Type: BLOOD SPECIMENOrdering Facility: [facility] Address: [address] [place] [address] Result Comment: Radha mated Glomerular Filtration Rate [...] actual GFR. Performed By: #### H STNT, 00720-1, 98669-7, 54773-6, 3016-3 ####[facility]ORYCLIA [id number] [place] [address] [place] Glucose [Mass/Vol] 95 mg/dL Normal 74-99 [facility] Comment on above: Order Comment: Speci men Type: BLOOD SPECIMENOrdering Facility: [facility] Address: [address] [place] [address] Result Comment: The [place] Diabetes Association (ADA) provides guidance for cutoff [...] Medical Care in Diabetes 2016, [place] Diabetes Association. Diabetes Care. 2016.39(Suppl 1). Performed By: #### H STNT, 77008-8, 46284-2, 94475-6, 6-3 ####[facility]ORYCLIA [id number] [place] [id number] [place] Potassium [Moles/Vol] 5.1 mmol/L Normal 3.7-5.1 [facility] Comment on above: Order Comment: Valei men Type: BLOOD SPECIMENOrdering Facility: [facility] Address: [address] [place] [address] Performed By: #### H STNT, 43867-1, 22395-2, 84238-1, 6-3 ####[facility]ORYCLIA [id number] [place] [id number] [place] Sodium [Moles/Vol] 136 mmol/L Normal 136-144 [facility] Comment on above: Order Comment: Speci men Type: BLOOD SPECIMENOrdering Facility: [facility] Address: [address] [place] [address] Performed By: #### H STNT, 70973-4, 78211-3, 36859-1, 3016-3 ####[facility]ORATORYCLIA [id number] [place] [address] [place] Urea nitrogen [Mass/Vol] 24 mg/dL High 7- [facility] Comment on above: Order Comment: Speci men Type: BLOOD SPECIMENOrdering Facility: [facility] Address: [address] [place] [address] Performed By: #### H STNT, 33683-2, 39918-8, 34831-7, 3016-3 ####[facility]ATORYCLIA [id number] [place] [address] [place] CBC W Auto Differential pane l (Bld)on 12-24-2024 Basophils (Bld) [#/Vol] 0.09 10*3/uL Normal <0.11 [facility] Comment on above: Order Comment: Speci men Type: BLOOD SPECIMENOrdering Facility: [facility] Address: [address] [place] [address] Performed By: #### 5 7021-8 ####[facility]ORATORYCLIA [id number] [place] [address] [place] Basophils/100 WBC (Bld) 0.9 % Normal [facility] Comment on above: Order Comment: Speci men Type: BLOOD SPECIMENOrdering Facility: [facility] Address: [address] [place] [address] Performed By: #### 5 7021-8 ####[facility]ORATORYCLIA [id number] [address] Differential cell count method Nom (Bld) Auto Normal [facility] Comment on above: Order Comment: Speci men Type: BLOOD SPECIMENOrdering Facility: [facility] Address: [address] [place] [address] Performed By: #### 5 7021-8 ####[facility]ATORYCLIA [id number] [place] [address] [place] Eosinophils (Bld) [#/Vol] 0.04 10*3/uL Normal <0.46 [facility] Comment on above: Order Comment: Speci men Type: BLOOD SPECIMENOrdering Facility: [facility] Address: [address] [place] [address] Performed By: #### 5 7021-8 ####[facility]ORATORYCLIA [id number] [address] [place] Eosinophils/100 WBC (Bld) 0.4 % Normal [facility] Comment on above: Order Comment: Speci men Type: BLOOD SPECIMENOrdering Facility: [facility] Address: [address] [place] [address] Performed By: #### 5 7021-8 ####[facility]ORATORYCLIA [id number] [place] [address] [place] Erythrocyte distribution width (RBC) [Ratio] 16.1 % High 11.5-15.0 [facility] Comment on above: Order Comment: Speci men Type: BLOOD SPECIMENOrdering Facility: [facility] Address: [address] [place] [address] Performed By: #### 5 7021-8 ####[facility]ATORYCLIA [id number] [address] [place] Hematocrit (Bld) [Volume fraction] 42.0 % Normal 36.0-46.0 [facility] Comment on above: Order Comment: Speci men Type: BLOOD SPECIMENOrdering Facility: [facility] Address: [address] [place] [address] Performed By: #### 5 7021-8 ####[facility]ORATORYCLIA [id number] [address] [place] Hemoglobin (Bld) [Mass/Vol] 14.0 g/dL Normal 11.5-15.5 [facility] Comment on above: Order Comment: Speci men Type: BLOOD SPECIMENOrdering Facility: [facility] Address: [address] [place] [address] Performed By: #### 5 7021-8 ####[facility]ORATORYCLIA [id number] [address] [place] Immature granulocytes (Bld) [#/Vol] 0.04 10*3/uL Normal <0.10 [facility] Comment on above: Order Comment: Speci men Type: BLOOD SPECIMENOrdering Facility: [facility] Address: [address] [place] [address] Performed By: #### 5 7021-8 ####[facility]ORATORYCLIA [id number] [address] Immature granulocytes/100 WBC (Bld) 0.4 % Normal [facility] Comment on above: Order Comment: Speci men Type: BLOOD SPECIMENOrdering Facility: [facility] Address: [address] [place] [address] Performed By: #### 5 7021-8 ####[facility]ORATORYCLIA [id number] [place] [address] [place] Lymphocytes (Bld) [#/Vol] 1.01 10*3/uL Normal 1.00-4.00 [facility] Comment on above: Order Comment: Speci men Type: BLOOD SPECIMENOrdering Facility: [facility] Address: [address] [place] [address] Performed By: #### 5 7021-8 ####[facility]ATORYCLIA [id number] [address] Lymphocytes/100 WBC (Bld) 10.4 % Normal [facility] Comment on above: Order Comment: Speci men Type: BLOOD SPECIMENOrdering Facility: [facility] Address: [address] [place] [address] Performed By: #### 5 7021-8 ####[facility]ATORYCLIA [id number] [address] [place] MCH (RBC) [Entitic mass] 30.0 pg Normal 26.0-34.0 [facility] Comment on above: Order Comment: Speci men Type: BLOOD SPECIMENOrdering Facility: [facility] Address: [address] [place] [address] Performed By: #### 5 7021-8 ####[facility]ATORYCLIA [id number] [address] [place] MCHC (RBC) [Mass/Vol] 33.3 g/dL Normal 30.5-36.0 [facility] Comment on above: Order Comment: Speci men Type: BLOOD SPECIMENOrdering Facility: [facility] Address: [address] [place] [address] Performed By: #### 5 7021-8 ####[facility]ORATORYCLIA [id number] [address] [place] MCV (RBC) [Entitic vol] 90.1 fL Normal 80.0-100.0 [facility] Comment on above: Order Comment: Speci men Type: BLOOD SPECIMENOrdering Facility: [facility] Address: [address] [place] [address] Performed By: #### 5 7021-8 ####[facility] LABORATORYCLIA [id number] [place] [address] [place] Monocytes (Bld) [#/Vol] 0.81 10*3/uL Normal <0.87 [facility] Comment on above: Order Comment: Speci men Type: BLOOD SPECIMENOrdering Facility: [facility] Address: [address] [place] [address] Performed By: #### 5 7021-8 ####[facility]ATORYCLIA [id number] [address] Monocytes/100 WBC (Bld) 8.3 % Normal [facility] Comment on above: Order Comment: Speci men Type: BLOOD SPECIMENOrdering Facility: [facility] Address: [address] [place] [address] Performed By: #### 5 7021-8 ####[facility]ORATORYCLIA [id number] [place] [address] [place] Neutrophils (Bld) [#/Vol] 7.72 10*3/uL High 1.45-7.50 [facility] Comment on above: Order Comment: Speci men Type: BLOOD SPECIMENOrdering Facility: [facility] Address: [address] [place] [address] Performed By: #### 5 7021-8 ####[facility]ATORYCLIA [id number] [address] [place] Neutrophils/100 WBC (Bld) 79.6 % Normal [facility] Comment on above: Order Comment: Speci men Type: BLOOD SPECIMENOrdering Facility: [facility] Address: [address] [place] [address] Performed By: #### 5 7021-8 ####[facility] LABORATORYCLIA [id number] [place] [address] [place] Nucleated RBC (Bld) [#/Vol] 10*3/uL Normal <0.01 [facility] Comment on above: Order Comment: Speci men Type: BLOOD SPECIMENOrdering Facility: [facility] Address: [address] [place] [address] Performed By: #### 5 7021-8 ####[facility] LABORATORYCLIA [id number] [address] Nucleated RBC/100 WBC (Bld) [Ratio] 0.0 /100 WBC Normal [facility] Comment on above: Order Comment: Speci men Type: BLOOD SPECIMENOrdering Facility: [facility] Address: [address] [place] [address] Performed By: #### 5 7021-8 ####[facility] LABORATORYCLIA [id number] [place] [address] [place] Platelet mean volume (Bld) [Entitic vol] 10.4 fL Normal 9.0-12.7 [facility] Comment on above: Order Comment: Speci men Type: BLOOD SPECIMENOrdering Facility: [facility] Address: [address] [place] [address] Performed By: #### 5 7021-8 ####[facility]ORATORYCLIA [id number] [place] [address] [place] Platelets (Bld) [#/Vol] 386 10*3/uL Normal 150-400 [facility] Comment on above: Order Comment: Speci men Type: BLOOD SPECIMENOrdering Facility: [facility] Address: [address] [place] [address] Performed By: #### 5 7021-8 ####[facility] LABORATORYCLIA [id number] [place] [address] [place] RBC (Bld) [#/Vol] 4.66 10*6/uL Normal 3.90-5.20 [facility] Comment on above: Order Comment: Speci men Type: BLOOD SPECIMENOrdering Facility: [facility] Address: [address] [facility] [place] [address] Performed By: #### 5 7021-8 ####[facility] LABORATORYCLIA [id number] [address] WBC (Bld) [#/Vol] 9.71 10*3/uL Normal 3.70-11.00 [facility] Comment on above: Order Comment: Speci men Type: BLOOD SPECIMENOrdering Facility: [facility] Address: [address] [place] [address] Performed By: #### 5 7021-8 ####[facility]ORATORYCLIA [id number] [address] ECG COMPLETEon 12-24-2024 ECG COMPLETE Ventricular Rate : 9 5 BPM Atrial Rate : 95 BPM P-R Interval : 162 ms QRS Duration : 138 ms Q-T Interval : 396 ms QTC Calculation(Bazett) : 497 ms Calculated P Etoile : -5 degrees Calculated R Etoile : -33 degrees Calculated T Etoile : 147 degrees NORMAL SINUS RHYTHM LEFT AXIS DEVIATION LEFT VENTRICULAR HYPERTROPHY WITH QRS WIDENING AND REPOLARIZATION ABNORMALITY ( R in aVL , Verona product ) CANNOT RULE OUT SEPTAL INFARCT , AGE UNDETERMINED ABNORMAL ECG NO PREVIOUS ECGS AVAILABLE Confirmed by ROJAS MATTHEWS MD ([id number]) on 12/25/2024 5:11:53 PM NAME : NA GOOD PID : [id number] : 1935 Gender : Female Race : ORD : [id number] Procedure Date : Dec 24 2024 19:25:38 Edit Date : Dec 25 2024 17:11:57 Diagnosis: NORMAL SINUS RHYTHM LEFT AXIS DEVIATION LEFT VENTRICULAR HYPERTROPHY WITH QRS WIDENING AND REPOLARIZATION ABNORMALITY ( R in aVL , Verona product ) CANNOT RULE OUT SEPTAL INFARCT , AGE UNDETERMINED ABNORMAL ECG NO PREVIOUS ECGS AVAILABLE Confirmed by ROJAS MATTHEWS MD ([id number]) on 12/25/2024 5:11:53 PM Test Reason : Shortness of Breath Location : 5 : 3S 0311 Overread By : ROJAS MATTHEWS MD Edited By : ROJAS MATTHEWS MD Referred By : , Acquired by : [id number], Normal [facility] ED PROV NOTEon 12-24-2024 ED PROV NOTE HNO ID: [id number] Author: OSCAR LIZARRAGA DO Service: Emergency Medicine [...] by: EMS (more content not included)... Normal [facility] Gas and Carbon monoxide pane l (BldV)on 12-24-2024 Base excess Calc (BldV) [Moles/Vol] 1 mmol/L Normal 0-2 [facility] Comment on above: Order Comment: Vita florez Type: BLOOD SPECIMEN [facility] Address: [address] [place] [address] Performed By: #### 2 4321-2 #### [facility] CLIA [id number] [address] [place] [address] [place] Calcium.ionized (Bld) [Mass/Vol] 1.17 mmol/L Normal 1.08-1.30 [facility] Comment on above: Order Comment: Vita florez Type: BLOOD SPECIMEN [facility] Address: [address] [place] [address] Performed By: #### 2 4321-2 #### [facility] CLIA [id number] [address] [place] [address] [place] Carboxyhemoglobin (BldV) [Mass fraction] 1.3 % Normal 0.0-2.0 [facility] Comment on above: Order Comment: Vita florez Type: BLOOD SPECIMEN [facility] Address: [address] [place] [address] Result Comment: Carb oxyhemoglobin Reference Range for Smokers: 2.0-8.0% Performed By: #### 2 4321-2 #### [facility] CLIA [id number] [address] [place] [address] [place] CO2 (BldV) [Partial pressure] 40 mm[Hg] Low 42-55 [facility] Comment on above: Order Comment: Vita florez Type: BLOOD SPECIMEN [facility] Address: [address] [place] [address] Performed By: #### 2 4321-2 #### [facility] CLIA [id number] [address] [place] CO2 adjusted to patient's actual temperature (BldV) [Partial pressure] Normal [facility] Comment on above: Order Comment: Speci men Type: BLOOD SPECIMEN [facility] Address: [address] [place] [address] Performed By: #### 2 4321-2 #### [facility] CLIA [id number] [address] [place] HCO3 (Bld) [Moles/Vol] 25 mmol/L Normal 24-28 [facility] Comment on above: Order Comment: Speci men Type: BLOOD SPECIMEN [facility] Address: [address] [place] [address] Performed By: #### 2 4321-2 #### [facility] CLIA [id number] [address] [place] Hemoglobin (Bld) [Mass/Vol] 13.8 g/dL Normal 11.5-15.5 [facility] Comment on above: Order Comment: Speci men Type: BLOOD SPECIMEN [facility] Address: [address] [place] [address] Performed By: #### 2 4321-2 #### [facility] CLIA [id number] [address] STATES [facility] Lactate [Moles/Vol] 2.2 mmol/L Normal 0.5-2.2 [facility] Comment on above: Order Comment: Speci men Type: BLOOD SPECIMEN [facility] Address: [address] [place] [address] Performed By: #### 2 4321-2 #### [facility] CLIA [id number] [address] [place] Methemoglobin (Bld) [Mass fraction] % Normal 0.0-1.5 [facility] Comment on above: Order Comment: Speci men Type: BLOOD SPECIMEN [facility] Address: [address] [place] [address] Performed By: #### 2 4321-2 #### [facility] CLIA [id number] [address] O2 THERAPY RA=Room Air Normal [facility] Comment on above: Order Comment: Speci men Type: BLOOD SPECIMEN [facility] Address: [address] [place] [address] Performed By: #### 2 4321-2 #### [facility] CLIA [id number] [address] [place] Oxygen (BldV) [Partial pressure] mm[Hg] Low 35-45 [facility] Comment on above: Order Comment: Speci men Type: BLOOD SPECIMEN [facility] Address: [address] [place] [address] Performed By: #### 2 4321-2 #### [facility] CLIA [id number] [address] [place] Oxygen adjusted to patient's actual temperature (BldV) [Partial pressure] Normal [facility] Comment on above: Order Comment: Speci men Type: BLOOD SPECIMEN [facility] Address: [address] [place] [address] Performed By: #### 2 4321-2 #### [facility] CLIA [id number] [address] [place] Oxygen saturation in Venous blood 53 % Low 60-85 [facility] Comment on above: Order Comment: Speci men Type: BLOOD SPECIMEN [facility] Address: [address] [place] [address] Performed By: #### 2 4321-2 #### [facility] CLIA [id number] [address] [place] [address] [place] Oxyhemoglobin (BldV) [Mass fraction] 52 % Low 60-85 [facility] Comment on above: Order Comment: Speci men Type: BLOOD SPECIMEN [facility] Address: [address] [place] [address] Performed By: #### 2 4321-2 #### [facility] CLIA [id number] [address] [place] [address] [place] pH (BldV) 7.41 [pH] Normal 7.32-7.42 [facility] Comment on above: Order Comment: Speci men Type: BLOOD SPECIMEN [facility] Address: [address] [place] [address] Performed By: #### 2 4321-2 #### [facility] CLIA [id number] [address] [place] [address] [place] pH adjusted to patient's actual temperature (BldV) Normal [facility] Comment on above: Order Comment: Speci men Type: BLOOD SPECIMEN [facility] Address: [address] [place] [address] Performed By: #### 2 4321-2 #### [facility] CLIA [id number] [address] [place] [address] [place] Potassium [Moles/Vol] 5.4 mmol/L High 3.5-5.0 [facility] Comment on above: Order Comment: Speci men Type: BLOOD SPECIMEN [facility] Address: [address] [place] [address] Performed By: #### 2 4321-2 #### [facility] CLIA [id number] [address] [place] [address] [place] HIGH SENSITIVITY TROPONIN To n 12-24-2024 Troponin T.cardiac High sensitivity method [Mass/Vol] 33 ng/L High <12 [facility] Comment on above: Order Comment: Speci men Type: BLOOD SPECIMENOrdering Facility: [facility] Address: [address] [place] [address] Performed By: #### H STNT, 66595-0, 02653-3, 96310-1, 3016-3 ####[facility]ATORYCLIA [id number] [place] [address] [place] Magnesium SerPl-mCncon 12-24 Magnesium [Mass/Vol] 2.3 mg/dL Normal 1.7-2.3 [facility] Comment on above: Order Comment: Speci men Type: BLOOD SPECIMENOrdering Facility: [facility] Address: [address] [place] [address] Performed By: #### H STNT, 04265-3, 52834-6, 64010-9, 3016-3 ####[place] [facility]ORATORYCLIA [id number] [place] [id number] [facility] NT-proBNP SerPl-mCncon 12-24 Natriuretic peptide.B prohormone N-Terminal [Mass/Vol] 10715 pg/mL High <450 [facility] Comment on above: Order Comment: Speci men Type: BLOOD SPECIMENOrdering Facility: [facility] Address: [address] [place] [address] Performed By: #### H STNT, 19123-3, 35121-6, 41800-0, 6-3 ####[facility] LABORATORYCLIA [id number] [address] TSH SerPl-aCncon 12-24-2024 TSH Qn 0.465 m[IU]/L Normal 0.270-4.200 [facility] Comment on above: Order Comment: Speci men Type: BLOOD SPECIMENOrdering Facility: [facility] Address: [address] [place] [address] Performed By: #### H STNT, 15679-1, 29919-9, 43820-4, 6-3 ####[facility] LABORATORYCLIA [id number] [address] OF [facility] XR CHEST 2V FRONTAL/LATon XR CHEST [...] pulmonary edema. Superimposed infection cannot be excluded. [employer]: PSCB Transcribe Date/Time: Dec 24 2024 1:15P Dictated by : ROXANE CRUZ MD This examination was interpreted and the report reviewed and electronically signed by: ROXANE CRUZ MD on Dec 24 2024 1:19PM EST [id number] Normal [facility] CBC-Complete Blood Cnt No Di ffon 12-11-2024 HCT Normal 37-47 [facility] Comment on above: Order Comment: 546.1 Result Comment: LABS WERE DONE 12/09/24 DOES NOT NEED REPEATED PER NURSE Performed By: #### L 500.4050, L100.0500 #### [facility] [address] [place], [address] HGB Normal 12.0-15.0 [facility] Comment on above: Order Comment: 546.1 Result Comment: LABS WERE DONE 12/09/24 DOES NOT NEED REPEATED PER NURSE Performed By: #### L 500.4050, L100.0500 #### [facility] [address] [place], [address] MCH Normal 27.0-32.0 [facility] Comment on above: Order Comment: 546.1 Result Comment: LABS WERE DONE 12/09/24 DOES NOT NEED REPEATED PER NURSE Performed By: #### L 500.4050, L100.0500 #### [facility] [address] [place], [address] MCHC Normal 32-36 [facility] Comment on above: Order Comment: 546.1 Result Comment: LABS WERE DONE 12/09/24 DOES NOT NEED REPEATED PER NURSE Performed By: #### L 500.4050, L100.0500 #### [facility] [address] [place], [address] MCV Normal 81-99 [facility] Comment on above: Order Comment: 546.1 Result Comment: LABS WERE DONE 12/09/24 DOES NOT NEED REPEATED PER NURSE Performed By: #### L 500.4050, L100.0500 #### [facility] [address] [place], [address] PLT Normal 150-450 [facility] Comment on above: Order Comment: 546.1 Result Comment: LABS WERE DONE 12/09/24 DOES NOT NEED REPEATED PER NURSE Performed By: #### L 500.4050, L100.0500 #### [facility] [address] [place], [address] RBC Normal 4.2-5.4 [facility] Comment on above: Order Comment: 546.1 Result Comment: LABS WERE DONE 12/09/24 DOES NOT NEED REPEATED PER NURSE Performed By: #### L 500.4050, L100.0500 #### [facility] [address] [place], [address] RDW CV Normal 11.6-14.6 [facility] Comment on above: Order Comment: 546.1 Result Comment: LABS WERE DONE 12/09/24 DOES NOT NEED REPEATED PER NURSE Performed By: #### L 500.4050, L100.0500 #### [facility] [address] [place], [address] RDW SD Normal 35.1-43.9 [facility] Comment on above: Order Comment: 546.1 Result Comment: LABS WERE DONE 12/09/24 DOES NOT NEED REPEATED PER NURSE Performed By: #### L 500.4050, L100.0500 #### [facility] [address] [place], [address] WBC Normal 4.4-11.0 [facility] Comment on above: Order Comment: 546.1 Result Comment: LABS WERE DONE 12/09/24 DOES NOT NEED REPEATED PER NURSE Performed By: #### L 500.4050, L100.0500 #### [facility] [address] [place], [address] Comprehensive Metabolic Prof ilon 12-11-2024 ALB Normal 3.4-4.8 [facility] Comment on above: Order Comment: 546.1 Result Comment: LABS WERE DONE 12/09/24 DOES NOT NEED REPEATED PER NURSE Performed By: #### L 500.4050, L100.0500 #### [facility] [address] [place], [address] ALK PHOS Normal 35-104 [facility] Comment on above: Order Comment: 546.1 Result Comment: LABS WERE DONE 12/09/24 DOES NOT NEED REPEATED PER NURSE Performed By: #### L 500.4050, L100.0500 #### [facility] [address] [place], [address] ALT Normal <=34 [facility] Comment on above: Order Comment: 546.1 Result Comment: LABS WERE DONE 12/09/24 DOES NOT NEED REPEATED PER NURSE Performed By: #### L 500.4050, L100.0500 #### [facility] [address] [place], [address] AST Normal <=31 [facility] Comment on above: Order Comment: 546.1 Result Comment: LABS WERE DONE 12/09/24 DOES NOT NEED REPEATED PER NURSE Performed By: #### L 500.4050, L100.0500 #### [facility] [address] [place], [address] BUN Normal 4-19 [facility] Comment on above: Order Comment: 546.1 Result Comment: LABS WERE DONE 12/09/24 DOES NOT NEED REPEATED PER NURSE Performed By: #### L 500.4050, L100.0500 #### [facility] [address] [place], [address] BUN/CRE Normal 10-20 [facility] Comment on above: Order Comment: 546.1 Result Comment: LABS WERE DONE 12/09/24 DOES NOT NEED REPEATED PER NURSE Performed By: #### L 500.4050, L100.0500 #### [facility] [address] [place], [address] Calcium Normal 7.6-11.0 [facility] Comment on above: Order Comment: 546.1 Result Comment: LABS WERE DONE 12/09/24 DOES NOT NEED REPEATED PER NURSE Performed By: #### L 500.4050, L100.0500 #### [facility] [address] [place], [address] CL Normal 98-108 [facility] Comment on above: Order Comment: 546.1 Result Comment: LABS WERE DONE 12/09/24 DOES NOT NEED REPEATED PER NURSE Performed By: #### L 500.4050, L100.0500 #### [facility] [address] [place], [address] CO2 Normal 21.0-32.0 [facility] Comment on above: Order Comment: 546.1 Result Comment: LABS WERE DONE 12/09/24 DOES NOT NEED REPEATED PER NURSE Performed By: #### L 500.4050, L100.0500 #### [facility] [address] [place], [address] CREAT,SERUM Normal 0.70-1.20 [facility] Comment on above: Order Comment: 546.1 Result Comment: LABS WERE DONE 12/09/24 DOES NOT NEED REPEATED PER NURSE Performed By: #### L 500.4050, L100.0500 #### [facility] [address] [place], [address] eGFR Normal >60 [facility] Comment on above: Order Comment: 546.1 Result Comment: LABS WERE DONE 12/09/24 DOES NOT NEED REPEATED PER NURSE Performed By: #### L 500.4050, L100.0500 #### [facility] [address] [place], [address] GAP Normal 5-15 [facility] Comment on above: Order Comment: 546.1 Result Comment: LABS WERE DONE 12/09/24 DOES NOT NEED REPEATED PER NURSE Performed By: #### L 500.4050, L100.0500 #### [facility] [address] [place], [address] GLU Normal 70-99 [facility] Comment on above: Order Comment: 546.1 Result Comment: LABS WERE DONE 12/09/24 DOES NOT NEED REPEATED PER NURSE Performed By: #### L 500.4050, L100.0500 #### [facility] [address] [place], [address] Potassium Normal 3.3-5.1 [facility] Comment on above: Order Comment: 546.1 Result Comment: LABS WERE DONE 12/09/24 DOES NOT NEED REPEATED PER NURSE Performed By: #### L 500.4050, L100.0500 #### [facility] [address] [place], [address] T BILI Normal 0.00-1.30 [facility] Comment on above: Order Comment: 546.1 Result Comment: LABS WERE DONE 12/09/24 DOES NOT NEED REPEATED PER NURSE Performed By: #### L 500.4050, L100.0500 #### [facility] [address] [place], [address] T PROT Normal 5.9-8.4 [facility] Comment on above: Order Comment: 546.1 Result Comment: LABS WERE DONE 12/09/24 DOES NOT NEED REPEATED PER NURSE Performed By: #### L 500.4050, L100.0500 #### [facility] [address] [place], [address] Comprehensive Metabolic Profil Normal 133-145 [facility] Comment on above: Order Comment: 546.1 Result Comment: LABS WERE DONE 12/09/24 DOES NOT NEED REPEATED PER NURSE Performed By: #### L 500.4050, L100.0500 #### [facility] [address] [place], [address] Basic Metabolic Profile (BMP )on 12-09-2024 BUN/CRE 21.8 RATIO High 10-20 [facility] Comment on above: Order Comment: 546.1 Performed By: #### L 500.2500, L100.0500 #### [facility] [address] [place], [address] Calcium [Mass/Vol] 8.8 mg/dL Normal 7.6-11.0 [facility] Comment on above: Order Comment: 546.1 Performed By: #### L 500.2500, L100.0500 #### [facility] [address] [place], [address] Chloride [Moles/Vol] 101 mmol/L Normal 98-108 [facility] Comment on above: Order Comment: 546.1 Performed By: #### L 500.2500, L100.0500 #### [facility] [address] [place], [address] CO2 [Moles/Vol] 23.2 mmol/L Normal 21.0-32.0 [facility] Comment on above: Order Comment: 546.1 Performed By: #### L 500.2500, L100.0500 #### [facility] [address] [place], [address] Creatinine [Mass/Vol] 0.86 mg/dL Normal 0.70-1.20 [facility] Comment on above: Order Comment: 546.1 Performed By: #### L 500.2500, L100.0500 #### [facility] [address] [place], [address] GAP 11 Normal 5-15 [facility] Comment on above: Order Comment: 546.1 Performed By: #### L 500.2500, L100.0500 #### [facility] [address] [place], [address] GFR/1.73 sq M.predicted among non-blacks MDRD (S/P/Bld) [Vol rate/Area] 65 mL/min/{1.73_m2} Normal >60 [facility] Comment on above: Order Comment: 546.1 Result Comment: mL/m in/1.73m2 CKD-EPI Creatinine Equation (2020) Performed By: #### L 500.2500, L100.0500 #### [facility] [address] [place], [address] Glucose [Mass/Vol] 78 mg/dL Normal 70-99 [facility] Comment on above: Order Comment: 546.1 Performed By: #### L 500.2500, L100.0500 #### [facility] [address] [place], [address] Potassium [Moles/Vol] 4.3 mmol/L Normal 3.3-5.1 [facility] Comment on above: Order Comment: 546.1 Performed By: #### L 500.2500, L100.0500 #### [facility] [address] [place], [address] Sodium [Moles/Vol] 135 mmol/L Normal 133-145 [facility] Comment on above: Order Comment: 546.1 Performed By: #### L 500.2500, L100.0500 #### [facility] [address] [place], [address] Urea nitrogen [Mass/Vol] 19 mg/dL Normal 4-19 [facility] Comment on above: Order Comment: 546.1 Performed By: #### L 500.2500, L100.0500 #### [facility] [address] [place], [address] CBC-Complete Blood Cnt No Di ffon 12-09-2024 Erythrocyte distribution width (RBC) [Ratio] 16.4 % High 11.6-14.6 [facility] Comment on above: Order Comment: 546.1 Performed By: #### L 500.2500, L100.0500 #### [facility] [address] [place], [address] Hematocrit (Bld) [Volume fraction] 37.6 % Normal 37-47 [facility] Comment on above: Order Comment: 546.1 Performed By: #### L 500.2500, L100.0500 #### [facility] [address] [place], [address] Hemoglobin (Bld) [Mass/Vol] 12.5 g/dL Normal 12.0-15.0 [facility] Comment on above: Order Comment: 546.1 Performed By: #### L 500.2500, L100.0500 #### [facility] [address] [place], [address] MCH (RBC) [Entitic mass] 29.8 pg Normal 27.0-32.0 [facility] Comment on above: Order Comment: 546.1 Performed By: #### L 500.2500, L100.0500 #### [facility] [address] [place], [address] MCHC (RBC) [Mass/Vol] 33.2 g/dL Normal 32-36 [facility] Comment on above: Order Comment: 546.1 Performed By: #### L 500.2500, L100.0500 #### [facility] [address] [place], [address] MCV (RBC) [Entitic vol] 89.5 fL Normal 81-99 [facility] Comment on above: Order Comment: 546.1 Performed By: #### L 500.2500, L100.0500 #### [facility] [address] [place], [address] Platelet mean volume (Bld) [Entitic vol] 10.5 fL Normal 6.2-12.0 [facility] Comment on above: Order Comment: 546.1 Performed By: #### L 500.2500, L100.0500 #### [facility] [address] [place], [address] Platelets (Bld) [#/Vol] 345 10*3/uL Normal 150-450 [facility] Comment on above: Order Comment: 546.1 Performed By: #### L 500.2500, L100.0500 #### [facility] [address] [place], [address] RBC (Bld) [#/Vol] 4.20 10*6/uL Normal 4.2-5.4 [facility] Comment on above: Order Comment: 546.1 Performed By: #### L 500.2500, L100.0500 #### [facility] [address] [place], [address] RDW SD 53.6 fl High 35.1-43.9 [facility] Comment on above: Order Comment: 546.1 Performed By: #### L 500.2500, L100.0500 #### [facility] [address] [place], [address] WBC (Bld) [#/Vol] 9.3 10*3/uL Normal 4.4-11.0 [facility] Comment on above: Order Comment: 546.1 Performed By: #### L 500.2500, L100.0500 #### [facility] [address] [place], [address] CBC-Complete Blood Cnt No Di ffon 09-18-2024 Erythrocyte distribution width (RBC) [Ratio] 15.3 % High 11.6-14.6 [facility] Comment on above: Order Comment: 546 Performed By: #### L 501.9985, L500.4050, L500.4100, L506.1001, L100.0500 #### [facility] [address] [place], [address] Hematocrit (Bld) [Volume fraction] 42.2 % Normal 37-47 [facility] Comment on above: Order Comment: 546 Performed By: #### L 501.9985, L500.4050, L500.4100, L506.1001, L100.0500 #### [facility] [address] [place], [address] Hemoglobin (Bld) [Mass/Vol] 13.9 g/dL Normal 12.0-15.0 [facility] Comment on above: Order Comment: 546 Performed By: #### L 501.9985, L500.4050, L500.4100, L506.1001, L100.0500 #### [facility] [address] [place], [address] MCH (RBC) [Entitic mass] 30.0 pg Normal 27.0-32.0 [facility] Comment on above: Order Comment: 546 Performed By: #### L 501.9985, L500.4050, L500.4100, L506.1001, L100.0500 #### [facility] [address] [place], [address] MCHC (RBC) [Mass/Vol] 32.9 g/dL Normal 32-36 [facility] Comment on above: Order Comment: 546 Performed By: #### L 501.9985, L500.4050, L500.4100, L506.1001, L100.0500 #### [facility] [address] [place], [address] MCV (RBC) [Entitic vol] 90.9 fL Normal 81-99 [facility] Comment on above: Order Comment: 546 Performed By: #### L 501.9985, L500.4050, L500.4100, L506.1001, L100.0500 #### [facility] [address] [place], [address] Platelet mean volume (Bld) [Entitic vol] 10.8 fL Normal 6.2-12.0 [facility] Comment on above: Order Comment: 546 Performed By: #### L 501.9985, L500.4050, L500.4100, L506.1001, L100.0500 #### [facility] [address] [place], [address] Platelets (Bld) [#/Vol] 337 10*3/uL Normal 150-450 [facility] Comment on above: Order Comment: 546 Performed By: #### L 501.9985, L500.4050, L500.4100, L506.1001, L100.0500 #### [facility] [address] [place], [address] RBC (Bld) [#/Vol] 4.64 10*6/uL Normal 4.2-5.4 [facility] Comment on above: Order Comment: 546 Performed By: #### L 501.9985, L500.4050, L500.4100, L506.1001, L100.0500 #### [facility] [address] [place], [address] RDW SD 50.5 fl High 35.1-43.9 [facility] Comment on above: Order Comment: 546 Performed By: #### L 501.9985, L500.4050, L500.4100, L506.1001, L100.0500 #### [facility] [address] [place], [address] WBC (Bld) [#/Vol] 9.6 10*3/uL Normal 4.4-11.0 [facility] Comment on above: Order Comment: 546 Performed By: #### L 501.9985, L500.4050, L500.4100, L506.1001, L100.0500 #### [facility] [address] [place], [address] Comprehensive Metabolic Prof [facility] 09-18-2024 Albumin [Mass/Vol] 3.4 g/dL Normal 3.4-4.8 [facility] Comment on above: Order Comment: 546 Performed By: #### L 501.9985, L500.4050, L500.4100, L506.1001, L100.0500 #### [facility] [address] [place], [address] Albumin/Globulin [Mass ratio] 1.4 {ratio} Normal 0.9-2.4 [facility] Comment on above: Order Comment: 546 Performed By: #### L 501.9985, L500.4050, L500.4100, L506.1001, L100.0500 #### [facility] [address] [place], [address] ALK PHOS 43 U/L Normal 35-104 [facility] Comment on above: Order Comment: 546 Performed By: #### L 501.9985, L500.4050, L500.4100, L506.1001, L100.0500 #### [facility] [address] [place], [address] ALT [Catalytic activity/Vol] 9 U/L Normal <=34 [facility] Comment on above: Order Comment: 546 Performed By: #### L 501.9985, L500.4050, L500.4100, L506.1001, L100.0500 #### [facility] [address] [place], [address] AST [Catalytic activity/Vol] 20 U/L Normal <=31 [facility] Comment on above: Order Comment: 546 Performed By: #### L 501.9985, L500.4050, L500.4100, L506.1001, L100.0500 #### [facility] [address] [place], [address] Bilirubin [Mass/Vol] 0.37 mg/dL Normal 0.00-1.30 [facility] Comment on above: Order Comment: 546 Performed By: #### L 501.9985, L500.4050, L500.4100, L506.1001, L100.0500 #### [facility] [address] [place], [address] BUN/CRE 27.9 RATIO High 10-20 [facility] Comment on above: Order Comment: 546 Performed By: #### L 501.9985, L500.4050, L500.4100, L506.1001, L100.0500 #### [facility] [address] [place], [address] Calcium [Mass/Vol] 8.8 mg/dL Normal 7.6-11.0 [facility] Comment on above: Order Comment: 546 Performed By: #### L 501.9985, L500.4050, L500.4100, L506.1001, L100.0500 #### [facility] [address] [place], [address] Chloride [Moles/Vol] 108 mmol/L Normal 98-108 [facility] Comment on above: Order Comment: 546 Performed By: #### L 501.9985, L500.4050, L500.4100, L506.1001, L100.0500 #### [facility] [address] [place], [address] CO2 [Moles/Vol] 23.5 mmol/L Normal 21.0-32.0 [facility] Comment on above: Order Comment: 546 Performed By: #### L 501.9985, L500.4050, L500.4100, L506.1001, L100.0500 #### [facility] [address] [place], [address] Creatinine [Mass/Vol] 0.82 mg/dL Normal 0.70-1.20 [facility] Comment on above: Order Comment: 546 Performed By: #### L 501.9985, L500.4050, L500.4100, L506.1001, L100.0500 #### [facility] [address] [place], [address] GAP 10 Normal 5-15 [facility] Comment on above: Order Comment: 546 Performed By: #### L 501.9985, L500.4050, L500.4100, L506.1001, L100.0500 #### [facility] [address] [place], [address] GFR/1.73 sq M.predicted among non-blacks MDRD (S/P/Bld) [Vol rate/Area] 69 mL/min/{1.73_m2} Normal >60 [facility] Comment on above: Order Comment: 546 Result Comment: mL/m in/1.73m2 CKD-EPI Creatinine Equation (2020) Performed By: #### L 501.9985, L500.4050, L500.4100, L506.1001, L100.0500 #### [facility] [address] [place], [address] Globulin (S) [Mass/Vol] 2.5 g/dL Normal 2.2-4.2 [facility] Comment on above: Order Comment: 546 Performed By: #### L 501.9985, L500.4050, L500.4100, L506.1001, L100.0500 #### [facility] [address] [place], [address] Glucose [Mass/Vol] 88 mg/dL Normal 70-99 [facility] Comment on above: Order Comment: 546 Performed By: #### L 501.9985, L500.4050, L500.4100, L506.1001, L100.0500 #### [facility] [address] [place], [address] Potassium [Moles/Vol] 4.1 mmol/L Normal 3.3-5.1 [facility] Comment on above: Order Comment: 546 Performed By: #### L 501.9985, L500.4050, L500.4100, L506.1001, L100.0500 #### [facility] Laboratory [address] [place], [address] Sodium [Moles/Vol] 141 mmol/L Normal 133-145 [facility] Comment on above: Order Comment: 546 Performed By: #### L 501.9985, L500.4050, L500.4100, L506.1001, L100.0500 #### [facility] [address] [place], [address] T PROT 5.8 g/dL Low 5.9-8.4 [facility] Comment on above: Order Comment: 546 Performed By: #### L 501.9985, L500.4050, L500.4100, L506.1001, L100.0500 #### [facility] [address] [place], [address] Urea nitrogen [Mass/Vol] 23 mg/dL High 4-19 [facility] Comment on above: Order Comment: 546 Performed By: #### L 501.9985, L500.4050, L500.4100, L506.1001, L100.0500 #### [facility] [address] [place], [address] Hemoglobin A1con 09-18-2024 HbA1c (Bld) [Mass fraction] 5.5 % Normal <=5.6 [facility] Comment on above: Order Comment: 546 Result Comment: Norm al < 5.7 % Prediabetic 5.7 - 6.4 % Diabetic >or= 6.5 % Please note range changes. Performed By: #### L 501.9985, L500.4050, L500.4100, L506.1001, L100.0500 #### [facility] [address] [place], [address] Lipid Profileon 09-18-2024 CHOL:HDL 2.43 Normal [facility] Comment on above: Order Comment: 546 Performed By: #### L 501.9985, L500.4050, L500.4100, L506.1001, L100.0500 #### [facility] Laboratory [address] [place], [address] Cholesterol [Mass/Vol] 136 mg/dL Normal <=200 [facility] Comment on above: Order Comment: 546 Result Comment: Chol esterol level, Desirable <200 mg/dL Borderline high cholesterol 200-239 mg/dL High cholesterol >=240 mg/dL Recommendations of the NCEP Adult Treatment Panel for the following risk-cutoff thresholds for the [place] population. Performed By: #### L 501.9985, L500.4050, L500.4100, L506.1001, L100.0500 #### [facility] [address] [place], [address] Cholesterol in HDL [Mass/Vol] 56 mg/dL Normal [facility] Comment on above: Order Comment: 546 Result Comment: Lyric onal Cholesterol Education Program (NCEP) guidelines: <40 mg/dL: Low HDL-cholesterol (major risk factor for CHD) >= 60 mg/dL: High HDL-cholesterol (negative risk factor for CHD) HDL-cholesterol is affected by a number of factors, e.g. smoking, exercise, hormones, sex and age. Performed By: #### L 501.9985, L500.4050, L500.4100, L506.1001, L100.0500 #### [facility] [address] [place], [address] Cholesterol in LDL [Mass/Vol] 67 mg/dL Normal [facility] Comment on above: Order Comment: 546 Result Comment: Bord ktunow=865-820 mg/dL Higher Fekp=581 mg/dL or greater Performed By: #### L 501.9985, L500.4050, L500.4100, L506.1001, L100.0500 #### [facility] [address] [place], [address] Cholesterol in VLDL [Mass/Vol] 14 mg/dL Normal 5-40 [facility] Comment on above: Order Comment: 546 Performed By: #### L 501.9985, L500.4050, L500.4100, L506.1001, L100.0500 #### [facility] Laboratory [address] [place], [address] Triglyceride [Mass/Vol] 68 mg/dL Normal [facility] Comment on above: Order Comment: 546 Result Comment: The drugs N-Acetylcysteine and Metamizole may falsely depress this assay. Normal range: <150 mg/dL Borderline High: 150-199 mg/dL High: 200-499 mg/dL Very High: >500 mg/dL Performed By: #### L 501.9985, L500.4050, L500.4100, L506.1001, L100.0500 #### [facility] [address] [place], [address] Vitamin D,25 Hydroxyon 09-18 Vitamin D 25-OH 52.7 ng/mL Normal 30-100 [facility] Comment on above: Order Comment: 546 Result Comment: Alicia min D Status Deficiency: <20 ng/mL (50nmol/L) Insufficiency: 20-30 ng/mL (50-75 nmol/L) Sufficiency: 30-100 ng/mL (75-250 nmol/L) Toxicity: >100 ng/mL (>250 nmol/L) Performed By: #### L 501.9985, L500.4050, L500.4100, L506.1001, L100.0500 #### [facility] Laboratory [address] [place], [place], [id number] US DOPPLER CAROTIDon 020 US DOPPLER CAROTID Patient Info Name: NA GOOD Age: 84 years : 1935 Gender: Female Exam Date: 02/03/2020 2:02 PM Site Location: [facility] Patient Status: Outpatient Production Line Manager: Tatyana Olmos, VILMA, RDMS (AB), RVT Referring Physician: RUBIN CHIRINOS ; Indications R09.89 - Other specified symptoms and signs involving the circulatory and respiratory systems Procedure Description 80377 Duplex examination using B-mode, color and spectral [...] Morris DO on 02/03/2020 03:27 PM Normal [facility] Ambulatory US DOPPLER CAROTID Patient Info Name: NA GOOD Age: 84 years : 1935 Gender: Female Exam Date: 02/03/2020 2:02 PM Site Location: [facility] Patient Status: Outpatient Production Line Manager: Tatyana Olmos, VILMA, RDMS (AB), RVT Referring Physician: RUBIN CHIRINOS ; Indications R09.89 - Other specified symptoms and signs involving the circulatory and respiratory systems Procedure Description [id number] Duplex examination using B-mode, color and spectral [...] SunFeb 03, 2020 3:27:40 PM EDT Normal [facility] Patient Info Name: NA GOOD Age: 84 years : 1935 Gender: Female Exam Date: 02/03/2020 2:02 PM Site Location: [facility] Patient Status: Outpatient Production Line Manager: Tatyana Olmos, VILMA, RDMS (AB), RVT Referring Physician: RUBIN CHIRINOS ; Indications R09.89 - Other specified symptoms and signs involving the circulatory and respiratory systems Procedure Description [id number] Duplex examination using B-mode, color and spectral [...] HAM Morris DO on 02/03/2020 03:27 PM [facility] Interface, Rad In Heartlab Xper Echopacs - 02/03/2020 3:27 PM EDT Patient Info Name: NA GOOD Age: 84 years : 1935 Gender: Female Exam Date: 02/03/2020 2:02 PM Site Location: [facility] Patient Status: Outpatient Production Line Manager: Tatyana Olmos, VILMA, RDMS (AB), RVT Referring Physician: RUBIN CHIRINOS ; Indications R09.89 - Other specified symptoms and signs involving the circulatory and respiratory systems Procedure Description [id number] Duplex examination using B-mode, color and spectral [...] HAM Morris DO on 02/03/2020 03:27 PM [facility] ECG 12-LEADon 01-13-2019 Atrial Rate [facility] P Etoile [facility] P-R Interval [facility] Q-T Interval [facility] Q-T Interval (corrected) [facility] QRS Duration [facility] QTC Calculation (Bezet) [facility] R Etoile [facility] T Etoile [facility] Ventricular Rate [facility] ECG 12 Leadon 01-15-2018 Atrial Rate Invalid Interpretation Code [facility] P Etoile Invalid Interpretation Code [facility] P-R Interval Invalid Interpretation Code [facility] Q-T Interval Invalid Interpretation Code [facility] Q-T Interval (corrected) Invalid Interpretation Code [facility] QRS Duration Invalid Interpretation Code [facility] QTC Calculation (Bezet) Invalid Interpretation Code [facility] R Etoile Invalid Interpretation Code [facility] T Etoile Invalid Interpretation Code [facility] Ventricular Rate Invalid Interpretation Code [facility] CBC w/o Diffon 12-19-2017 Erythrocyte distribution width Auto Ratio (RBC) 14.2 % Normal 10.0-14.4 [facility] Comment on above: Performed By: #### L IPID, CMET, TSH, CBCWOD ####Unless otherwise noted, all testing performed by [address] [phone]: [id number] Director: Alverto Fitzgerald M.D. Hematocrit Auto Volume Fraction (Bld) 44.2 % Normal 34.4-44.8 [facility] Comment on above: Performed By: #### L IPID, CMET, TSH, CBCWOD ####Unless otherwise noted, all testing performed by [address] [phone]: [id number] Director: Alverto Fitzgerald M.D. Hemoglobin mass conc (Bld) 14.6 g/dL Normal 11.6-15.4 [facility] Comment on above: Performed By: #### L IPID, CMET, TSH, CBCWOD ####Unless otherwise noted, all testing performed by [address] [phone]: [id number] Director: Alverto Fitzgerald M.D. MCH Auto Entitic mass (RBC) 29.4 pg Normal 27.9-33.9 [facility] Comment on above: Performed By: #### L IPID, CMET, TSH, CBCWOD ####Unless otherwise noted, all testing performed by [address] [phone]: [id number] Director: Alverto Fitzgerald M.D. MCHC Auto mass conc (RBC) 33.0 g/dL Low 33.1-35.1 [facility] Comment on above: Performed By: #### L IPID, CMET, TSH, CBCWOD ####Unless otherwise noted, all testing performed by [address] [phone]: [id number] Director: Alverto Fitzgerald M.D. MCV Auto Entitic volume (RBC) 89.1 fL Normal 82.6-98.9 [facility] Comment on above: Performed By: #### L IPID, CMET, TSH, CBCWOD ####Unless otherwise noted, all testing performed by [address] [phone]: [id number] Director: Alverto Fitzgerald M.D. Platelet mean volume Auto Entitic volume (Bld) 8.6 fL Normal 7.0-10.6 [facility] Comment on above: Performed By: #### L IPID, CMET, TSH, CBCWOD ####Unless otherwise noted, all testing performed by [address] [phone]: [id number] Director: Alverto Fitzgerald M.D. Platelets Auto #/vol (Bld) 349 K/mcL Normal 162-402 [facility] Comment on above: Performed By: #### L IPID, CMET, TSH, CBCWOD ####Unless otherwise noted, all testing performed by [address] [phone]: [id number] Director: Alverto Fitzgerald M.D. RBC Auto #/vol (Bld) 4.96 M/mcL Normal 3.7-5.0 [facility] Comment on above: Performed By: #### L IPID, CMET, TSH, CBCWOD ####Unless otherwise noted, all testing performed by [address] [phone]: [id number] Director: Alverto Fitzgerald M.D. WBC Auto #/vol (Bld) 9.0 K/mcL Normal 3.4-10.6 [facility] Comment on above: Performed By: #### L IPID, CMET, TSH, CBCWOD ####Unless otherwise noted, all testing performed by [address] [id number]: [id number] Director: Alverto Fitzgerald M.D. Comprehensive Metabolic Pane [facility] 12-19-2017 Albumin mass conc 3.7 g/dL Normal 3.2-5.2 [facility] Comment on above: Performed By: #### L IPID, CMET, TSH, CBCWOD ####Unless otherwise noted, all testing performed by [address] [phone]: [id number] Director: Alverto Fitzgerald M.D. ALP enzyme act/vol 54 U/L Normal 40-150 [facility] Comment on above: Performed By: #### L IPID, CMET, TSH, CBCWOD ####Unless otherwise noted, all testing performed by [place] [phone]: [id number] Director: Alverto Fitzgerald M.D. ALT enzyme act/vol 15 U/L Normal 14-65 [facility] Comment on above: Result Comment: This test result might be falsely depressed or falsely elevated onsamples drawn from patients taking Sulfasalazine and Sulfapyridine.Venipuncture should occur prior to taking either of these drugs. Performed By: #### L IPID, CMET, TSH, CBCWOD ####Unless otherwise noted, all testing performed by [address] [phone]: [id number] Director: Alverto Fitzgerald M.D. AST enzyme act/vol 15 U/L Normal 0-45 [facility] Comment on above: Result Comment: This test result might be falsely depressed or falsely elevated onsamples drawn from patients taking Sulfasalazine and Sulfapyridine.Venipuncture should occur prior to taking either of these drugs. Performed By: #### L IPID, CMET, TSH, CBCWOD ####Unless otherwise noted, all testing performed by [address] [phone]: [id number] Director: Alverto Fitzgerald M.D. Bilirubin mass conc 0.5 mg/dL Normal 0.3-1.2 [facility] Comment on above: Performed By: #### L IPID, CMET, TSH, CBCWOD ####Unless otherwise noted, all testing performed by [address] [phone]: [id number] Director: Alverto Fitzgerald M.D. Calcium mass conc 8.9 mg/dL Normal 8.4-10.2 [facility] Comment on above: Performed By: #### L IPID, CMET, TSH, CBCWOD ####Unless otherwise noted, all testing performed by [address] [phone]: [id number] Director: Alverto Fitzgerald M.D. Chloride molar conc 106 mmol/L Normal 98-108 [facility] Comment on above: Performed By: #### L IPID, CMET, TSH, CBCWOD ####Unless otherwise noted, all testing performed by [address] [phone]: [id number] Director: Alverto Fitzgerald M.D. CO2 molar conc 29 mmol/L Normal 21-32 [facility] Comment on above: Performed By: #### L IPID, CMET, TSH, CBCWOD ####Unless otherwise noted, all testing performed by [address] [phone]: [id number] Director: Alverto Fitzgerald M.D. Creatinine mass conc 0.76 mg/dL Normal 0.60-1.20 [facility] Comment on above: Performed By: #### L IPID, CMET, TSH, CBCWOD ####Unless otherwise noted, all testing performed by [address], [place] [phone]: [id number] Director: Alverto Fitzgerald M.D. GFR/1.73 sq M predicted among blacks MDRD vol rate/area (S/P/Bld) mL/min/{1.73_m2} Normal [facility] Comment on above: Result Comment: Afri can Citizen [place] GFR Calc Performed By: #### L IPID, CMET, TSH, CBCWOD ####Unless otherwise noted, all testing performed by [address] [phone]: [id number] Director: Alverto Fitzgerald M.D. GFR/1.73 sq M predicted among non-blacks MDRD vol rate/area (S/P/Bld) mL/min/{1.73_m2} Normal [facility] Comment on above: Result Comment: [...] ####Unless otherwise noted, all testing performed by [address] [phone]: [id number] Director: Alverto Fitzgerald M.D. Glucose mass conc 84 mg/dL Normal 70-99 [facility] Comment on above: Result Comment: This test result might be falsely depressed or falsely elevated onsamples drawn from patients taking Sulfasalazine and Sulfapyridine.Venipuncture should occur prior to taking either of these drugs. Performed By: #### L IPID, CMET, TSH, CBCWOD ####Unless otherwise noted, all testing performed by [address] [phone]: [id number] Director: Alverto Fitzgerald M.D. Potassium molar conc 4.1 mmol/L Normal 3.5-5.1 [facility] Comment on above: Performed By: #### L IPID, CMET, TSH, CBCWOD ####Unless otherwise noted, all testing performed by [address] [phone]: [id number] Director: Alverto Fitzgerald M.D. Protein mass conc 7.2 g/dL Normal 6.0-8.0 [facility] Comment on above: Performed By: #### L IPID, CMET, TSH, CBCWOD ####Unless otherwise noted, all testing performed by [address] [phone]: [id number] Director: Alverto Fitzgerald M.D. Sodium molar conc 142 mmol/L Normal 135-145 [facility] Comment on above: Performed By: #### L IPID, CMET, TSH, CBCWOD ####Unless otherwise noted, all testing performed by [address] [phone]: [id number] Director: Alverto Fitzgerald M.D. Urea nitrogen mass conc 19 mg/dL Normal 8-25 [facility] Comment on above: Performed By: #### L IPID, CMET, TSH, CBCWOD ####Unless otherwise noted, all testing performed by [address] [phone]: [id number] Director: Alverto Fitzgerald M.D. Lipid Panelon 12-19-2017 Cholesterol in HDL mass conc 68 mg/dL High 40-59 [facility] Comment on above: Performed By: #### L IPID, CMET, TSH, CBCWOD ####Unless otherwise noted, all testing performed by [place] [phone]: [id number] Director: Alverto Fitzgerald M.D. Cholesterol in LDL mass conc 150 mg/dL Normal 10-150 [facility] Comment on above: Performed By: #### L IPID, CMET, TSH, CBCWOD ####Unless otherwise noted, all testing performed by [place] [phone]: [id number] Director: Alverto Fitzgerald M.D. Cholesterol in VLDL mass conc 24 mg/dL Normal 5-40 [facility] Comment on above: Performed By: #### L IPID, CMET, TSH, CBCWOD ####Unless otherwise noted, all testing performed by [address] [phone]: [id number] Director: Alverto Fitzgerald M.D. Cholesterol mass conc 243 mg/dL High 100-199 [facility] Comment on above: Performed By: #### L IPID, CMET, TSH, CBCWOD ####Unless otherwise noted, all testing performed by [address] [phone]: [id number] Director: Alverto Fitzgerald M.D. Cholesterol.total/Cho lesterol in HDL mass ratio 3.6 {ratio} Normal 3.2-5.0 [facility] Comment on above: Result Comment: Robert harley Coronary Heart Disease Risk Factor (CHDRF):Average risk= 4.41/2 Average risk= 3.32 times Average risk= 7.1 Performed By: #### L IPID, CMET, TSH, CBCWOD ####Unless otherwise noted, all testing performed by [address] [phone]: [id number] Director: Alverto Fitzgerald M.D. Triglyceride mass conc 121 mg/dL High 25-120 [facility] Comment on above: Performed By: #### L IPID, CMET, TSH, CBCWOD ####Unless otherwise noted, all testing performed by [address] [phone]: [id number] Director: Alverto Fitzgerald M.D. Microalbumin, Ur Random Pane epifanio 12-19-2017 Creatinine, Urine Random 124.00 mg/dL Normal [facility] Comment on above: Result Comment: No e stablished reference range. Performed By: #### M KANDI ####Unless otherwise noted, all testing performed by [address] [phone]: [id number] Director: Alverto Fitzgerald M.D. MIALB/Creatinine Ratio 9 Normal 0.0-25.0 [facility] Comment on above: Performed By: #### M KANDI ####Unless otherwise noted, all testing performed by [address] [phone]: [id number] Director: Alverto Fitzgerald M.D. Microalbumin, Urine Random 1.1 mg/dL Normal 0.0-1.8 [facility] Comment on above: Performed By: #### M IALBURR ####Unless otherwise noted, all testing performed by [address] [phone]: [id number] Director: Alverto Fitzgerald M.D. TSHon 12-19-2017 T4 free mass conc 1.1 ng/dL Normal 0.7-1.7 [facility] Comment on above: Result Comment: Samp les from patients routinely receiving high dose biotin therapy(100-300 mg/day) may show falsely increased results. Please correlateclinically. Performed By: #### L IPID, CMET, TSH, CBCWOD ####Unless otherwise noted, all testing performed by [address] [phone]: [id number] Director: Alverto Fitzgerald M.D. Thyrotropin Qn 0.22 uIU/mL Low 0.320-5.000 [facility] Comment on above: Result Comment: Samp les from patients routinely receiving high dose biotin therapy(100-300 mg/day) may show falsely decreased results. Please correlateclinically. Performed By: #### L IPID, CMET, TSH, CBCWOD ####Unless otherwise noted, all testing performed by [address] [phone]: [id number] Director: Alverto Fitzgerald M.D. CBC and Differentialon 12-19 Basophils 1.1 % Invalid Interpretation Code [facility] Basophils 0.1 K/mcL Invalid Interpretation Code 0 - 0.2 [facility] Eosinophils 0.3 K/mcL Invalid Interpretation Code 0 - 0.5 [facility] Erythrocytes (RBC) 4.79 M/mcL Invalid Interpretation Code 3.7 - 5.0 [facility] Hematocrit (HCT) 42.7 % Invalid Interpretation Code 34.4 - 44.8 % [facility] Hemoglobin (HGB) 14.1 g/dL Invalid Interpretation Code 11.6 - 15.4 g/dL [facility] Lymphocytes 2.4 K/mcL Invalid Interpretation Code 1.0 - 3.7 [facility] MCH 29.5 pg Invalid Interpretation Code 27.9 - 33.9 pg [facility] MCHC 33.1 g/dL Invalid Interpretation Code 33.1 - 35.1 g/dL [facility] MCV 89.2 fL Invalid Interpretation Code 82.6 - 98.9 [facility] Monocytes 0.6 K/mcL Invalid Interpretation Code 0.1 - 0.6 [facility] Neutrophils 4.4 K/mcL Invalid Interpretation Code 1.2 - 6.9 [facility] Platelet mean volume (PMV) 8.7 fL Invalid Interpretation Code 7.0 - 10.6 [facility] Platelets 278 K/mcL Invalid Interpretation Code 162 - 402 [facility] RDW-CA 14.3 % Invalid Interpretation Code 10 - 14.4 % [facility] Segmented Neut 56.5 % Invalid Interpretation Code [facility] T8 suppressor/100 cells 4.2 10*3/uL Invalid Interpretation Code [facility] T8 suppressor/100 cells 30.3 10*3/uL Invalid Interpretation Code [facility] T8 suppressor/100 cells 7.9 10*3/uL Invalid Interpretation Code [facility] WBC (Leukocytes) 7.8 K/mcL Invalid Interpretation Code 3.4 - 10.6 [facility] Comprehensive Metabolic Pane epifanio 12-19-2016 Alanine aminotransferase (ALT) 20 U/L Invalid Interpretation Code 14 - 65 U/L [facility] Albumin 3.6 g/dL Invalid Interpretation Code 3.2 - 5.2 g/dL [facility] Alkaline phosphatase (ALP) 39 U/L Low 40 - 150 U/L [facility] Aspartate aminotransferase (AST) 14 U/L Invalid Interpretation Code 0 - 45 U/L [facility] Calcium 9.4 mg/dL Invalid Interpretation Code 8.4 - 10.2 mg/dL [facility] Chloride 107 mmol/L Invalid Interpretation Code 98 - 108 mmol/L [facility] CO2 30 mmol/L Invalid Interpretation Code 21 - 32 mmol/L [facility] Creatinine 0.72 mg/dL Invalid Interpretation Code 0.6 - 1.2 mg/dL [facility] eGFR (black) mL/min/{1.73_m2} Invalid Interpretation Code ml/min/1.73s q.m [facility] eGFR (non-black) mL/min/{1.73_m2} Invalid Interpretation Code ml/min/1.73s q.m [facility] Glucose 86 mg/dL Invalid Interpretation Code 70 - 99 mg/dL [facility] Potassium 4.3 mmol/L Invalid Interpretation Code 3.5 - 5.1 mmol/L [facility] Protein 6.8 g/dL Invalid Interpretation Code 6 - 8 g/dL [facility] Sodium 145 mmol/L Invalid Interpretation Code 135 - 145 mmol/L [facility] Urea nitrogen 17 mg/dL Invalid Interpretation Code 8 - 25 mg/dL [facility] Urine, bilirubin presence 0.6 mg/dL Invalid Interpretation Code 0.3 - 1.2 mg/dL [facility] Lipid Panelon 12-19-2016 Cholesterol 242 mg/dL High 100 - 199 mg/dL [facility] Cholesterol to HDL Ratio 3.2 {ratio} Invalid Interpretation Code 3.2 - 5.0 [facility] HDL Cholesterol 76 mg/dL High 40 - 59 mg/dL [facility] Interpretation and review of laboratory results Abnormal Invalid Interpretation Code [facility] LDL Cholesterol 150 mg/dL Invalid Interpretation Code 10 - 150 mg/dL [facility] Triglyceride 85 mg/dL Invalid Interpretation Code 25 - 120 mg/dL [facility] VLDL 17 mg/dL Invalid Interpretation Code 5 - 40 mg/dL [facility] Vital Signs Date Time Vital Sign Value Performing Clinician Facility 07-28-2020 13:54-0400 BMI (Body Mass Index) 22.43 kg/m2 Davidcleveland Ludwig [facility] 07-28-2020 13:54-0400 Body Temperature 98.71 [degF] David Tightwad [facility] 07-28-2020 13:54-0400 Body weight 57.42 kg David Tightwad [facility] 07-28-2020 13:54-0400 BP Diastolic 82 mm[Hg] David [facility] 07-28-2020 13:54-0400 BP Systolic 139 mm[Hg] David Ludwig [facility] 07-28-2020 13:54-0400 Height 160 cm David Ludwig [facility] 07-28-2020 13:54-0400 Pulse (Heart Rate) 84 /min David Ludwig [facility] 07-28-2020 13:54-0400 Pulse Oximetry 97 % David Ludwig [facility] 01-15-2020 14:24-0400 BMI (Body Mass Index) 22.5 kg/m2 Rubin Chirinos [facility] 01-15-2020 14:24-0400 Body weight 57.61 kg Rubin Chirinos [facility] 01-15-2020 14:24-0400 BP Diastolic 78 mm[Hg] Rubin Chirinos [facility] 01-15-2020 14:24-0400 BP Systolic 136 mm[Hg] Rubinyara Chirinos [facility] 01-15-2020 14:24-0400 Height 160 cm Rubinyara Chirinos [facility] 01-15-2020 14:24-0400 Pulse (Heart Rate) 64 /min Rubinyara Chirinos [facility] 01-15-2020 14:24-0400 Pulse Oximetry 97 % Rubin Chirinos [facility] 12-08-2019 11:20-0400 BMI (Body Mass Index) 22.5 kg/m2 David Ludwig [facility] 12-08-2019 11:20-0400 Body Temperature 97.81 [degF] David Ludwig [facility] 12-08-2019 11:20-0400 Body weight 57.61 kg David Ludwig [facility] 12-08-2019 11:20-0400 BP Diastolic 70 mm[Hg] David Ludwig [facility] 12-08-2019 11:20-0400 BP Systolic 133 mm[Hg] David Ludwig [facility] 12-08-2019 11:20-0400 Height 160 cm aDvid Ludwig [facility] 12-08-2019 11:20-0400 Pulse (Heart Rate) 98 /min David Ludwig [facility] 06-16-2019 09:58-0500 BP Diastolic 74 mm[Hg] David Ludwig [facility] 06-16-2019 09:58-0500 BP Systolic 130 mm[Hg] David Ludwig [facility] 06-16-2019 09:58-0500 Pulse (Heart Rate) 82 /min David Ludwig [facility] 06-16-2019 09:58-0500 Pulse Oximetry 97 % David Ludwig [facility] 06-16-2019 09:58-0500 Respiratory Rate 18 /min David Ludwig [facility] 06-16-2019 09:54-0500 BMI (Body Mass Index) 23.13 kg/m2 David Ludwig [facility] 06-16-2019 09:54-0500 Body Temperature 97.9 [degF] David Ludwig [facility] 06-16-2019 09:54-0500 Body weight 59.24 kg David Ludwig [facility] 06-16-2019 09:54-0500 Height 160 cm David Ludwig [facility] 01-13-2019 11:15-0400 BMI (Body Mass Index) 22.14 kg/m2 Rubin Chirinos [facility] 01-13-2019 11:15-0400 Body weight 56.7 kg Rubinyara Chirinos [facility] 01-13-2019 11:15-0400 BP Diastolic 71 mm[Hg] Rubin Chirinos [facility] 01-13-2019 11:15-0400 BP Systolic 140 mm[Hg] Rubinyara Chirinos [facility] 01-13-2019 11:15-0400 Height 160 cm Rubin Chirinos [facility] 01-13-2019 11:15-0400 Pulse (Heart Rate) 80 /min Rubinyara Chirinos [facility] 01-13-2019 11:15-0400 Pulse Oximetry 99 % Rubinyara Chirinos [facility] 12-04-2018 09:08-0400 BMI (Body Mass Index) 22.43 kg/m2 Ceasar Arce [facility] 12-04-2018 09:08-0400 Body weight 57.42 kg Ceasar Arce [facility] 12-04-2018 09:08-0400 BP Diastolic 80 mm[Hg] Ceasar Oviedoo [facility] 12-04-2018 09:08-0400 BP Systolic 167 mm[Hg] Ceasar Oviedoo [facility] 12-04-2018 09:08-0400 Height 160 cm Ceasardario Arce [facility] 12-04-2018 09:08-0400 Pulse ([facility] Rate) 74 /[facility] 09:08-0400 Pulse Oximetry 98 % Ceasar Arce [facility] 06-26-2018 11:00-0500 BP Diastolic 77 mm[Hg] Davidcleveland Ludwig [facility] 06-26-2018 11:00-0500 BP Systolic 129 mm[Hg] David Ludwig [facility] 06-26-2018 11:00-0500 Pulse (Heart Rate) 66 /min David Ludwig [facility] 06-26-2018 11:00-0500 Pulse Oximetry 96 % Davidcleveland Ludwig [facility] 06-26-2018 10:56-0500 BMI (Body Mass Index) 22.18 kg/m2 Davidcleveland Ludwig [facility] 06-26-2018 10:56-0500 Body Temperature 98.2 [degF] David Ludwig [facility] 06-26-2018 10:56-0500 Height 160 cm David Ludwig [facility] 06-26-2018 10:56-0500 Weight 56.79 kg Davidcleveland Ludwig [facility] 01-15-2018 10:01-0400 BMI (Body Mass Index) 22.32 kg/m2 [facility] 01-15-2018 10:01-0400 BP Diastolic 80 mm[Hg] [facility] 01-15-2018 10:01-0400 BP Systolic 152 mm[Hg] [facility] 01-15-2018 10:01-0400 Height 160 cm [facility] 01-15-2018 10:01-0400 Pulse (Heart Rate) 81 /min [facility] 01-15-2018 10:01-0400 Pulse Oximetry 98 % [facility] 01-15-2018 10:01-0400 Weight 57.15 kg [facility] 12-27-2017 10:27-0400 BMI (Body Mass Index) 22.27 kg/m2 Davidcleveland Ludwig [facility] 12-27-2017 10:27-0400 Body Temperature 97.59 [degF] David Ludwig [facility] 12-27-2017 10:27-0400 BP Diastolic 75 mm[Hg] David Ludwig [facility] 12-27-2017 10:27-0400 BP Systolic 159 mm[Hg] Davidcleveland Ludwig [facility] 12-27-2017 10:270400 Height 160 cm David Ludwig [facility] 12-27-2017 10:27-0400 Pulse (Heart Rate) 82 /min David Ludwig [facility] 12-27-2017 10:27-0400 Pulse Oximetry 97 % David Ludwig [facility] 12-27-2017 10:27-0400 Respiratory Rate 12 /min David Ludwig [facility] 12-27-2017 10:27-0400 Weight 57.02 kg David Ludwig [facility] 06-26-2017 09:46-0500 BMI (Body Mass Index) 23.06 kg/m2 Alfredo [facility] 06-26-2017 09:46-0500 Body Temperature 98.29 [degF] [facility] 06-26-2017 09:46-0500 BP Diastolic 80 mm[Hg] [facility] 06-26-2017 09:46-0500 BP Systolic 140 mm[Hg] [facility] 06-26-2017 09:46-0500 Height 160 cm [facility] 06-26-2017 09:46-0500 Pulse (Heart Rate) 68 /min [facility] 06-26-2017 09:46-0500 Weight 59.06 kg [facility] 06-20-2017 14:38-0500 BMI (Body Mass Index) 23.03 kg/m2 Ceasar Arce [facility] 06-20-2017 14:38-0500 BP Diastolic 79 mm[Hg] Ceasar Ov[place]oo [facility] 06-20-2017 14:38-0500 BP Systolic 160 mm[Hg] Ceasar O[place]oo [facility] 06-20-2017 14:38-0500 Height 160 cm Ceasardario [place]oo [facility] 06-20-2017 14:38-0500 Pulse (Heart Rate) 67 /min Ceasardario Alleno [facility] 06-20-2017 14:38-0500 Pulse Oximetry 99 % [facility] 06-20-2017 14:38-0500 Weight 58.97 kg Ceasar Arce [facility] 01-08-2017 10:21-0400 BMI (Body Mass Index) 22.32 kg/m2 Rubin Chirinos [facility] Phone: 01-08-2017 10:21-0400 BP Diastolic 85 mm[Hg] Rubin Chirinos [facility] Work Phone: 01-08-2017 10:21-0400 BP Systolic 165 mm[Hg] Rubin Chirinos [facility] Work Phone: 01-08-2017 10:21-0400 Height 160 cm Rubin Chirinos [facility] Work Phone: 01-08-2017 10:21-0400 Pulse (Heart Rate) 64 /min Rubin Chirinos [facility] Work Phone: 01-08-2017 10:21-0400 Pulse Oximetry 97 % Rubin Chirinos [facility] Work Phone: 01-08-2017 10:21-0400 Weight 57.15 kg Rubin Chirinos [facility] Work Phone: 12-13-2016 14:18-0400 BMI (Body Mass Index) 22.44 kg/m2 Ceasar Oviedoo [facility] Work Phone: 12-13-2016 14:18-0400 BP Diastolic 81 mm[Hg] Ceasar Ov[place]oo [facility] Work Phone: 12-13-2016 14:18-0400 BP Systolic 167 mm[Hg] Ceasar Oviedoo [facility] Work Phone: 12-13-2016 14:18-0400 Height 160 cm Ceasar Ov[place]oo [facility] Work Phone: 12-13-2016 14:18-0400 Pulse (Heart Rate) 69 /min Ceasar Dmitryhodko [facility] Work Phone: 12-13-2016 14:18-0400 Pulse Oximetry 99 % Ceasar Oviedoo [facility] Work Phone: 12-13-2016 14:18-0400 Weight 57.47 kg Ceasar Arce [facility] Work Phone: Encounters Encounter Date Encounter Type Care Provider Facility Start: 03-02-2025 Evaluation and manag ement of inpatient BISMARK SALES Facility:[facility] Start: 02-25-2025 End: 02-25-2025 ambulatory LIDIA ARMENTA Facility:[facility] Start: 02-24-2025 ambulatory Alexey Deperro OLS Facili ty:[facility] Start: 02-19-2025 ambulatory Alexey Deperro OLS Facili ty:[facility] Start: 02-04-2025 End: 02-04-2025 ambulatory JOVANI COCHRAN Facility:[facility] Start: 01-27-2025 End: 01-29-2025 Evaluation and management of inpatient JOHNSON WATSON Facility:[facility] Start: 01-05-2025 ambulatory Alexey Deperro OLS Facili ty:[facility] Start: 12-29-2024 ambulatory Alexey Deperro OLS Facili ty:[facility] Start: 12-24-2024 End: 12-27-2024 Evaluation and management of inpatient JOHNSON WATSON Facility:[facility] Start: 12-09-2024 ambulatory Alexey Deperro OLS Facili ty:[facility] Start: 09-18-2024 ambulatory Alexey Deperro OLS Facili ty:[facility] Start: 01-14-2021 ambulatory [facility] Amb[facility] Start: 12-07-2020 ambulatory [facility] Start: 09-21-2020 End: 09-21-2020 Refill Shante Hargrove LPN [facility] Comment on above: Benign essential hyp ertension; Chronic combined systolic and diastolic congestive heart failure (HCC); Insomnia, unspecified type Start: 07-28-2020 End: 07-28-2020 [facility] Start: 07-28-2020 End: 07-28-2020 Office outpatient visit 25 minutes David Ludwig Work Phone: [facility] Comment on above: Benign essential hyp ertension (Primary Dx); Chronic combined systolic and diastolic congestive heart failure (HCC); Mixed hyperlipidemia Start: 05-07-2020 End: 05-07-2020 Orders Only Alley Lopez Jigar Work Phone: [facility] Start: 02-03-2020 End: 02-04-2020 Patient encounter procedure [facility] Start: 02-03-2020 End: 02-03-2020 Subsequent hospital visit by physician Rubin Chirinos Work Phone: [facility] Comment on above: Bruit of left caroti d artery Start: 01-15-2020 End: 01-15-2020 Office outpatient visit 25 minutes Rubin Chirinos Work Phone: [facility] Comment on above: Bruit of left caroti d artery (Primary Dx); Chronic combined systolic and diastolic congestive heart failure (HCC); Mixed hyperlipidemia; Nonrheumatic aortic valve insufficiency; Benign essential hypertension; Left carotid bruit Start: 12-08-2019 End: 12-08-2019 Patient encounter procedure David Ludwig Work Phone: [facility] Comment on above: General medical exam (Primary Dx); At low risk for fall; Need for vaccination Start: 12-01-2019 End: 12-05-2019 [facility] Start: 06-16-2019 End: 06-16-2019 Office outpatient visit 25 minutes David Ludwig Work Phone: [facility] Comment on above: Benign essential hyp ertension (Primary Dx); Chronic combined systolic and diastolic congestive heart failure (HCC); Mixed hyperlipidemia; Subclinical hypothyroidism; Insomnia, unspecified type Start: 01-13-2019 End: 01-13-2019 Office outpatient visit 25 minutes Rubin Chirinos Work Phone: [facility] Comment on above: Cardiomyopathy, unsp ecified type (HCC) (Primary Dx); Chronic combined systolic and diastolic congestive heart failure (HCC); Mixed hyperlipidemia; Benign essential hypertension Start: 12-04-2018 End: 12-04-2018 Clinical Support Kriss Marcelo [facility] Aud[facility] Comment on above: Sensorineural hearin g loss, bilateral (Primary Dx); Sudden hearing loss, unspecified laterality Start: 12-04-2018 End: 12-04-2018 Office outpatient visit 25 minutes Ceasar Tonywilmer Dmitryserglouise Work Phone: [facility] Comment on above: Hearing loss due to cerumen impaction, bilateral (Primary Dx); Sensorineural hearing loss, bilateral Start: 09-26-2018 End: 09-26-2018 Patient encounter procedure Eve Yap [facility] Comment on above: Medicare Wellness Vi sit (VM to schedule MWV) Start: 06-26-2018 End: 06-26-2018 Office outpatient visit 25 minutes David Ludwig Work Phone: [facility] Comment on above: Benign essential hyp ertension (Primary Dx); Mixed hyperlipidemia; Chronic combined systolic and diastolic congestive heart failure (HCC); Mood disorder (HCC) Start: 01-28-2018 Patient encounter procedure Escobar Gallegos Facility:[facility] Start: 01-28-2018 End: 01-28-2018 Patient encounter Escobar Gallegos Work Phone: [facility] Start: 01-15-2018 End: 01-15-2018 Office outpatient visit 25 minutes Escobar Gallegos Work Phone: [facility] Comment on above: Congestive heart elsy lure, unspecified HF chronicity, unspecified heart failure type (HCC) (Primary Dx); Dyspnea on exertion; Nonrheumatic aortic valve insufficiency; Benign essential hypertension Start: 12-27-2017 End: 12-27-2017 Office outpatient visit 25 minutes Davidcleveland Mortensen Nadia Work Phone: [facility] Comment on above: Benign essential hyp ertension (Primary Dx); Mixed hyperlipidemia; Subclinical hypothyroidism; Chronic combined systolic and diastolic congestive heart failure (HCC); Need for influenza vaccination Start: 12-19-2017 Patient encounter procedure Alfredo Barreto Facility:[facility] Start: 12-19-2017 End: 12-19-2017 Patient encounter Devonte Hassan [facility] Start: 11-07-2017 Abner Schafer Work Phone: [facility] Comment on above: Medication Refill Start: 06-26-2017 Patient encounter procedure Alfredo WMacrina Ladonnalisa Facility:[facility] Start: 06-26-2017 Office/outpatient vi sit, est, level 3 Alfredo Barreto Work Phone: [facility] Start: 06-25-2017 Patient encounter procedure Oscar Mendes Facility:[facility] Start: 06-20-2017 Patient encounter Ceasar Sreedharfidelia simoncamrynparish Prykhodko Work Phone: [facility] Start: 06-18-2017 Patient encounter procedure Oscar Mendes Facility:[facility] Start: 01-12-2017 End: 01-12-2017 Ambulatory Rubin Chirinos Work Phone: [facility] Start: 01-08-2017 Office/outpatient vi sit, est, level 5 Rubin Chirinos Work Phone: [facility] Start: 12-19-2016 End: 12-19-2016 Ambulatory Oscar Mendes Work Phone: [facility] Start: 12-15-2016 End: 12-15-2016 Ambulatory Oscar Sylillian Work Phone: [facility] Start: 12-13-2016 End: 12-13-2016 Office outpatient new 30 minutes Ceasar Jimenezaurorafrancine Prykhodko Work Phone: [facility] Comment on above: Hearing loss due to cerumen impaction, bilateral (Primary Dx);Presbycusis, unspecified laterality Start: 11-24-2016 End: 11-24-2016 Ambulatory Oscar Mendes Work Phone: [facility] Procedures Date Procedure Procedure Detail Performing [...] Start: 12-07-2029 Tetanus vaccination Tetanus: Every 10yrs [facility] Start: 12-27-2022 History and physical examination, annual for health maintenance Wellness Visit [facility] Start: 12-22-2021 Influenza vaccination Sequential Influenza Vaccine (#1) [facility] Start: 01-31-2021 End: 01-31-2021 Office Visit 01/31/2021 Office Visit Primary Care David Ludwig MD [facility] [address] [place], [place] [id number] [facility] Start: 12-07-2020 Administration of herpes zoster vaccine Zoster Vaccines (1 of 2) [facility] Comment on above: Postponed from 10/21/1985 (Treatment Not Available) Start: 12-07-2020 Adolescent depression screening assessment Depression Screening (PHQ9) [facility] Start: 12-07-2020 Depression screening using PHQ-9 (Patient Health Questionnaire 9) score [facility] Start: 12-07-2020 Fall risk assessment Falls Risk Assessment [facility] Start: 12-07-2020 History and physical examination, annual for health maintenance Wellness Visit [facility] Start: 08-09-2020 COVID-19 Vaccine (3 - Booster for Moderna series) COVID-19 Vaccine (3 - Booster for Moderna series) [facility] Start: 07-28-2020 End: 07-28-2020 Office Visit 07/28/2020 Office Visit Primary Care David Ludwig MD [address] [place] [address] [phone] [facility] Start: 07-28-2020 End: 07-28-2021 Microalbumin measurement, urine, quantitative Microalbumin/Creatinine Ratio, UR Random Lab Routine Benign essential hypertension Expected: 07/28/2020, Expires: 07/28/2021 [facility] Comment on above: Expected: 07/28/2020, Expires: Start: 06-10-2020 End: 06-10-2020 Office Visit 06/10/2020 Office Visit Primary Care David Ludwig MD [address] [place] [address] [phone] [facility] Start: 02-03-2020 End: 02-03-2020 Appointment 02/03/2020 Appointment Cardiology Rubin Chirinos MD [address] [place] [address] [phone] [facility] Start: 12-23-2019 Influenza vaccination given Sequential Influenza Vaccine (#1) [facility] Start: 12-19-2019 Depression screening using PHQ-9 (Patient Health Questionnaire 9) score DEPRESSION SCREENING (PHQ9) [facility] Start: 12-19-2019 Fall risk assessment Falls Risk Assessment [facility] Start: 12-08-2019 End: 12-08-2019 Office Visit 12/08/2019 Office Visit Primary Care David Ludwig MD [address] [place] [address] [phone] [facility] Start: 06-16-2019 End: 06-16-2020 Microalbumin measurement, urine, quantitative Microalbumin/Creatinine Ratio, UR Random Lab Routine Benign essential hypertension Expected: 06/16/2019, Expires: 06/16/2020 [facility] Comment on above: Expected: 06/16/2019, Expires: Start: 06-16-2019 End: 06-16-2019 Office Visit 06/16/2019 Office Visit Primary Care David Ludwig MD [address] [place] [address] [phone] [facility] Start: 01-13-2019 End: 01-13-2019 Office Visit 01/13/2019 Office Visit Cardiology Rubin Chirinos MD [address] [place] [address] [phone] [facility] Start: 12-22-2018 Influenza vaccination given SEQUENTIAL INFLUENZA VACCINE (#1) [facility] Start: 12-20-2018 End: 12-20-2018 Office Visit 12/20/2018 Office Visit Primary Care David Ludwig MD [address] [place] [address] [phone] [facility] Start: 12-18-2018 End: 12-18-2018 Office Visit 12/18/2018 Office Visit Primary Care David Ludwig MD [address] [place] [address] [phone] [facility] Start: 06-26-2018 End: 06-27-2019 Microalbumin measurement, urine, quantitative Microalbumin, Urine, Random Routine Benign essential hypertension Expected: 06/26/2018, Expires: 06/27/2019 [facility] Comment on above: Expected: 06/26/2018, Expires: 0 Start: 06-26-2018 End: 06-26-2018 Ambulatory 06/26/2018 Office Visit Primary Care David Ludwig MD [address] [place] [address] [phone] [facility] Start: 06-19-2018 End: 06-19-2018 Ambulatory 06/19/2018 Clinical Support Primary Care [facility] Start: 01-28-2018 End: 01-28-2018 Ambulatory 01/28/2018 Appointment Cardiology Escobar Gallegos CNP [address] [place] [address] [phone] [facility] Start: 01-10-2018 End: 01-10-2018 Ambulatory 01/10/2018 Office Visit Cardiology Rubin Chirinos MD [address] [place] [address] [phone] [facility] Start: 12-27-2017 End: 12-27-2017 Ambulatory [facility] Start: 12-22-2017 Influenza vaccination SEQUENTIAL INFLUENZA VACCINE (#1) [facility] Start: 12-18-2017 Ambulatory 12/18/2017 Clinical Support Primary Care [facility] Primary Care Physicians Start: 06-26-2017 Ambulatory [facility] Start: 06-25-2017 Ambulatory 06/25/2017 Hospital Encounter Oscar Mendes MD [address] [place] [address] [phone] [facility] Start: 06-20-2017 Ambulatory 06/20/2017 Office Visit Otolaryngology Ceasar Arce MD [address] [place] [address] [phone] [facility] Ear, Nose and Throat Physicians Start: 06-18-2017 Ambulatory 06/18/2017 Hospital Encounter Oscar Mendes MD [address] [place] [address] [phone] [facility] Start: 01-12-2017 Ambulatory 01/12/2017 Hospital Encounter Cardiology Rubin Chirinos MD [address] [place] [address] [phone] [facility] Heart & Vascular Physicians Start: 01-08-2017 Ambulatory 01/08/2017 Office Visit Cardiology Rubin [facility]irinos MD [address] [facility] [place] [address] [phone] [facility] Heart & Vascular Physicians Start: 12-22-2016 Influenza vaccination SEQUENTIAL INFLUENZA VACCINE (#1) [facility] Work Phone: Start: 12-22-2016 SEQUENTIAL INFLUENZA VACCINE (#1) SEQUENTIAL INFLUENZA VACCINE (#1) [facility] Work Phone: Start: 12-13-2016 Ambulatory 12/13/2016 Office Visit Otolaryngology Ceasar Arce MD [address] [place] [address] [phone] [facility] Ear, Nose and Throat Physicians Start: 03-02-2016 Pneumococcal vaccination PNEUMOCOCCAL VACCINE AGE 65+ (2 of 2 - PCV13) [facility] Start: 10-21-2000 Fall risk assessment Steadi Fall Risk Assessment [facility] Start: 10-21-2000 Pneumococcal vaccination PNEUMOCOCCAL VACCINE AGE 65+ (1 of 2 - PCV13) [facility] Work Phone: Start: 10-21-2000 PNEUMOCOCCAL VACCINE AGE 65+ (1 of 2 - PCV13) PNEUMOCOCCAL VACCINE AGE 65+ (1 of 2 - PCV13) [facility] Work Phone: Start: 1995 Zoster vacc, sc ZOSTER VACCINE [facility] Work Phone: Start: 10-21-1985 Administration of herpes zoster vaccine ZOSTER VACCINES (1 of 2) [facility] Start: 10-21-1985 ZOSTER VACCINES (1 of 2) ZOSTER VACCINES (1 of 2) [facility] Start: 10-21-1938 History and physical examination, annual for health maintenance Wellness Visit [facility] Start: 1935 Fall risk assessment Falls Risk Assessment [facility] Start: 1935 End: 1935 DEXA SCAN DEXA SCAN [facility] Work Phone: Start: 1935 End: 1935 Screening for osteoporosis DEXA SCAN [facility] Start: 1935 End: 1935 TETANUS EVERY 10 YR TETANUS EVERY 10 YR [facility] Work Phone: Start: 1935 End: 1935 Tetanus vaccination [facility] Work Phone: End: 03-17-2021 Carotid artery doppler assessment Ultrasound doppler carotid Vascular Ultrasound Routine Bruit of left carotid artery 1 Occurrences starting 01/15/2020 until 03/17/2021 [facility] Comment on above: 1 Occurrences starting 01/15/2020 until 03/17/2021 End: 01-12-2017 Carotid Duplex Carotid Duplex Routine Bruit Once for 1 Occurrences starting 01/12/2017 until 01/12/2017 [facility] Work Phone: Carotid Duplex Carotid Duplex R outine Bruit 01/12/2017 4:01 PM EDT [facility] Work Phone: End: 03-10-2018 Carotid Duplex Carotid Duplex Routine Bruit 1 Occurrences starting 01/08/2017 until 03/10/2018 [facility] Work Phone: End: 06-26-2018 Cholesterol Lipid Panel Routine Pure hypercholesterolemia 1 Occurrences starting 06/26/2017 until 06/26/2018 [facility] End: 06-26-2018 Complete blood count (hemogram) panel - Blood by Automated count CBC Routine Essential hypertension 1 Occurrences starting 06/26/2017 until 06/26/2018 [facility] End: 06-27-2019 Complete blood count with white cell differential, manual CBC and Differential Routine Benign essential hypertension 1 Occurrences starting 11/26/2018 until 06/27/2019 [facility] Comment on above: 1 Occurrences starting 11/26/2018 until 06/27/2019 End: 06-16-2020 Complete blood count with white cell differential, manual CBC and Differential Lab Routine Benign essential hypertension 1 Occurrences starting 06/16/2019 until 06/16/2020 [facility] Comment on above: 1 Occurrences starting 06/16/2019 until 06/16/2020 End: 07-28-2021 Complete blood count with white cell differential, manual CBC and Differential Lab Routine Benign essential hypertension 1 Occurrences starting 07/28/2020 until 07/28/2021 [facility] Comment on above: 1 Occurrences starting 07/28/2020 until 07/28/2021 End: 06-27-2019 Comprehensive metabolic 2000 panel Comprehensive Metabolic Panel Routine Benign essential hypertension 1 Occurrences starting 11/26/2018 until 06/27/2019 [facility] Comment on above: 1 Occurrences starting 11/26/2018 until 06/27/2019 End: 06-16-2020 Comprehensive metabolic 2000 panel Comprehensive Metabolic Panel Lab Routine Benign essential hypertension 1 Occurrences starting 06/16/2019 until 06/16/2020 [facility] Comment on above: 1 Occurrences starting 06/16/2019 until 06/16/2020 End: 07-28-2021 Comprehensive metabolic 2000 panel Comprehensive Metabolic Panel Lab Routine Benign essential hypertension 1 Occurrences starting 07/28/2020 until 07/28/2021 [facility] Comment on above: 1 Occurrences starting 07/28/2020 until 07/28/2021 End: 06-26-2018 Comprehensive metabolic panel [AGGREGATE] Comprehensive Metabolic Panel Routine Essential hypertension 1 Occurrences starting 06/26/2017 until 06/26/2018 [facility] End: 01-16-2019 Echocardiogram complete Echocardiogram complete Routine Dyspnea on exertion 1 Occurrences starting 01/15/2018 until 01/16/2019 [facility] Comment on above: 1 Occurrences starting 01/15/2018 until 01/16/2019 End: 06-27-2019 Lipid 1996 panel Lipid Panel Routine Mixed hyperlipidemia 1 Occurrences starting 11/26/2018 until 06/27/2019 [facility] Comment on above: 1 Occurrences starting 11/26/2018 until 06/27/2019 End: 06-16-2020 Lipid 1996 panel Lipid Panel Lab Routine Mixed hyperlipidemia 1 Occurrences starting 06/16/2019 until 06/16/2020 [facility] Comment on above: 1 Occurrences starting 06/16/2019 until 06/16/2020 End: 07-28-2021 Lipid 1996 panel Lipid Panel Lab Routine Benign essential hypertension 1 Occurrences starting 07/28/2020 until 07/28/2021 [facility] Comment on above: 1 Occurrences starting 07/28/2020 until 07/28/2021 End: 06-26-2018 Microalbumin, Urine, Random Microalbumin, Urine, Random Routine Essential hypertension 1 Occurrences starting 06/26/2017 until 06/26/2018 [facility] End: 06-27-2019 Thyrotropin Qn TSH with Reflex Free T4 Routine Benign essential hypertension 1 Occurrences starting 11/26/2018 until 06/27/2019 [facility] Comment on above: 1 Occurrences starting 11/26/2018 until 06/27/2019 End: 06-26-2018 TSH TSH Routine Hypothyroidism (acquired) 1 Occurrences starting 06/26/2017 until 06/26/2018 [facility] End: 06-16-2020 TSH Qn TSH with Reflex Free T4 Lab Routine Subclinical hypothyroidism 1 Occurrences starting 06/16/2019 until 06/16/2020 [facility] Comment on above: 1 Occurrences starting 06/16/2019 until 06/16/2020 End: 07-28-2021 TSH Qn TSH with Reflex Free T4 Lab Routine Benign essential hypertension 1 Occurrences starting 07/28/2020 until 07/28/2021 [facility] Comment on above: 1 Occurrences starting 07/28/2020 until 07/28/2021 Immunizations Immunization Date Immunization Notes Care Provider Derrick gomez 06-14-2020 Moderna SARS-CoV-2 Vaccination Brand on [facility] 05-17-2020 Moderna SARS-CoV-2 Vaccination Brand on [facility] 01-28-2020 Seasonal, quadrivale nt, recombinant, injectable influenza vaccine, preservative free [facility] 12-08-2019 diphtheria, tetanus toxoids and acellular pertussis vaccine, unspecified formulation [facility] 12-08-2019 tetanus toxoid, redu cielo diphtheria toxoid, and acellular pertussis vaccine, adsorbed [facility] 12-27-2017 influenza, high dose seasonal, preservative-free; Translations: [INFLUENZA IIV3 HIGH DOSE 65 AND OLDER] [facility] 03-[facility] influenza virus vacc ine, unspecified formulation Ceasar Claude [facility] 03-02-2015 influenza, injectabl e, quadrivalent, preservative free [facility] 03-02-2015 pneumococcal conjuga te vaccine, 13 valent [facility] 03-02-2015 pneumococcal polysac charide vaccine, 23 valent [facility] 03-17-2002 influenza virus vacc ine, unspecified formulation [facility] Payers Date Payer Category Payer Self-pay 2015 Unknown [id number] 2015 Unknown [facility] [id number] 2015-Present [id number] 2015 Unknown [facility] [id number] 2015-Present [phone] [address] [place] [address] [id number] 2000 Medicare [id number] 2000 Medicare MEDICARE MEDICAR E PART A & B [id number] 2000-Present [place] [id number] 2000 Medicare MEDICARE MEDICAR E PART A & B [id number] 2000-Present [phone] S [id number] [place] [place] [address] [id number] 2000 Unknown [id number] 2000 Medicare [id number] 1935 Unknown [id number] 1935 Unknown [id number] 1935 Unknown [id number] 1935 Unknown [id number] 1935 Unknown [id number] Medicare xxxxxxxxxx [id number] Unknown [id number] Unknown [id number] Unknown [id number] Unknown [id number] Unknown [id number] Unknown [id number] Social History Date Type Detail Facility Start: 12-13-2016 End: 06-26-2017 Tobacco smoking status WYIS Never smoker [facility] Start: 1935 Sex Assigned At Not on file [facility] [employer] Work Phone: Start: 01-06-2016 Alcohol Comment very seldom [facility] Start: 06-26-2017 End: 01-13-2019 Alcohol intake Current drinker of alcohol (finding) [facility] Start: 12-18-2018 End: 07-28-2020 History SDOH Social Connections Phone 3 [facility] Start: 12-18-2018 End: 12-08-2019 History SDOH Food Worry 1 [facility] Start: 12-13-2016 End: 01-15-2020 Tobacco use and exposure Never used [facility] Start: 01-15-2020 End: 07-28-2020 Alcohol intake Ex-drinker (finding) [facility] Start: 12-08-2019 History SDOH Physica l Activity DPW 0 [facility] Start: 12-08-2019 History SDOH Education 14 [facility] Start: 12-08-2019 History SDOH Financial 5 [facility] Start: 12-08-2019 End: 07-28-2020 History SDOH IPV Fear 2 [facility] Start: 06-28-2020 End: 07-28-2020 Exposure to SARS-CoV-2 (event) Not sure [facility] Start: 06-26-2017 End: 07-28-2020 Alcohol intake [facility] Clinical Notes 11-07-2017 to 03-04-2025 Telephone Encounter - Shante Hargrove LPN - 09/21/2020 4:05 PM EDTTelephone Encounter - Theresa Berg MA - 11/09/2017 9:59 AM EDT Note Date & Type Note Facility 03-04-2025 Note HNO ID: [id number] Author: NORMA LEES RN Service: Care Management Author Type: Registered Nurse Type: Care Mgt Progress Note Filed: 03/04/2025 13:48 Note Text: CARE MANAGEMENT PROGRESS NOTE SERVICE DATE: 03/04/2025 SERVICE TIME: 1:07 PM LOS: 2 days Needs Prior to Discharge: To Be Determined EMR reviewed. Acute on chronic CHF. On IV Lasix. On RA. Returning to [facility]. OT rec HHC. PT pending. Updated [facility] referral, awaiting answer if they have their own onsite therapy or a [facility] agency they prefer to use. 1:47 PM [facility] advised they will use their in house therapy team to provide the home therapy patient needs upon return. SIGNATURE: Norma Lees RN PATIENT NAME: Na Good DATE: March 04, 2025 TIME: 1:07 PM [facility] 03-04-2025 Note HNO ID: [id number] Author: BISMARK SALES MD Service: General Internal [...] views is recommended. Echocardiography Report: Transthoracic Echo [facility] Date of service: 12/26/2024 CONCLUSIONS: - Exam [...] subject to e (more content not included)... [facility] 03-03-2025 Note HNO ID: [id number] Author: NORMA LEES RN Service: Care Management Author Type: Registered Nurse Type: Care Mgt Initial Assessment Filed: 03/03/2025 12:04 Note Text: CARE MANAGEMENT: ASSESSMENT AND DISCHARGE PLAN SERVICE DATE: March 03, 2025 SERVICE TIME: 11:56 AM PCP: Alexey Vinosn Sr, DO - Confirmed. Primary Contact: Extended Emergency Contact Information Primary Emergency Contact: Janelle Bailey Mobile Relation: Daughter Secondary Emergency Contact: Yuridia Whyte Mobile Relation: Daughter Admission Status: Inpatient Insurance Provider: MEDICARE A AND B Discharge Planning requested by: Per Department Practice Potential Transition Plans [facility] Facility/Intermediate Care Facility Advance Directives Current Advance Directive: Health Care Power of Rotary Envelope Machine Operator In Chart: Yes Up To Date and Valid: Yes Current Living Arrangements and Support Lives with: Type of Residence: Assisted Living Facility Does the patient have to climb stairs at home?: No Care Facility Name: [facility] Support: Children How do you manage to accomplish the following: Independent: Ambulation, Dress, Going to the bathroom Needs Assistance: Bathe/Shower Dependent: Meals/Meal Prep, Medication Management, Transportation to appointments/community Current Services/Equipment Current Post-Acute Service(s): DME Current DME Type: Walker (Walker inside, Walking poles outside.) Discharge Planning Patient Goal(s): Be able to go home, General wellness [place] Explained: [place] Given: Yes Level of Care Discussed: Other: See Comment (Return to [facility].) Are you interested in bedside delivery of your medications? No Discharge Planning Participant(s): Children Patient/Family Comments: Caregiver Assessment: Caregiver is ready, willing and able to meet the patient's needs as recommended by the inter-professional team: Yes Name of Caregiver: [facility] Transport at Discharge: Transportation Arrangements: To Be Determined Needs Prior to Discharge: Needs Prior to Discharge: To Be Determined Post-Acute Discharge Plan: CM spoke with daughter/AIRAM Shi to complete assessment, introduced self and role. Pt is 89 y/o, admit Dx Acute on chronic CHF. Patient resides at [facility]. Needs assist with bathing, nurses administer all meds. Daughter reports patient uses a walker inside and walking poles when outside. Presented to ED with worsening dyspnea on exertion. Cardiology consulted. On IV Lasix. On RA. Pt is AANDO X 3. Anticipate return to [facility]. Discharge transport TBD Family vs [facility] vs Medical transport. Daughter feels Discharge instructions on Lasix administration need to be very specific for the [facility] nurses at d/c. CM instructed patient that CM team will remain available for any dc needs. SIGNATURE: Nroma Lees RN PATIENT NAME: Na Good DATE: March 03, 2025 TIME: 11:56 AM [facility] 03-03-2025 Note HNO ID: [id number] Author: BISMARK SALES MD Service: General Internal [...] views is recommended. Echocardiography Report: Transthoracic Echo [facility] Date of service: 12/26/2024 CONCLUSIONS: - Exam [...] by contextual deri (more content not included)... [facility] 03-02-2025 Note SARS-COV-2 (AGENT OF COVID-19) RNA: Not detected INFLUENZA A RNA: Not detected INFLUENZA B RNA: Not detected RESPIRATORY SYNCYTIAL VIRUS (RSV) RNA: Not detected [facility] Comment on above: Performed By: #### 2 [id number] #### [facility] CLIA [id number] [address] [place] [id number] [place] 02-25-2025 Note HNO ID: [id number] Author: LIDIA ARMENTA APRN.VERONICA Service: ? Author Type: Nurse Practitioner Type: Progress Notes Filed: 02/25/2025 15:55 Note Text: [facility] Department of Cardiovascular Medicine SECTION [...] a follow up visit. Recent admission to [facility] for acute diastolic HF Seen by and [...] She resides in an assisted living facility, [facility], and is accompanied by her [...] prior to the follow up. Lidia Armenta APRN.AFFILIATE MARKETING COORDINATOR Cardiology Nurse Practitioner Section of Regional Cardiology [place] Dept of Cardiovascular Medicine [place] [facility] [address] [place] [address] Office Office February 25, 2025 (more content not included)... [facility] 02-04-2025 Note HNO ID: [id number] Author: JOVANI COCHRAN APRN.AFFILIATE MARKETING COORDINATOR Service: ? Author Type: Nurse Practitioner Type: Progress Notes Filed: 02/04/2025 13:00 Note Text: [facility] OUTPATIENT VISIT DATE February [...] Impaired Vision, Glass (more content not included)... [facility] 01-29-2025 Note HNO ID: [id number] Author: NAHEED GREENBERG RN Service: Care Management Author Type: Registered Nurse Type: Care Mgt Progress Note Filed: 01/29/2025 14:44 Note Text: CARE MANAGEMENT DISCHARGE NOTE SERVICE DATE: January 29, 2025 SERVICE TIME: 2:41 PM Discharge order written for today. [facility]: [facility] - - Updated in [facility] and by Phone with Nurse Persaud on discharge planning. Nurse Persaud updated on discharge today and confirms the facility will set home PT services for patient. MMT transport scheduled for today at 3:30 PM - Trip Number [id number] Transport envelope on chart LAKESHIA GALLEGO discussed discharge with Nurse Yaritza Steven RN. 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 Location: [place] Destination: [facility]: [facility] - Financial Care Management Responsibility: None Handoff Communication: Handoff to: Primary Care Physician Primary Care Physician Name/Phone: PCP: Alexey Espino DO - Additional Information: Discharge Information Row Name ED to Hosp-Admission (Current) from 01/27/2025 in [facility] Medical Follow-Up Appointment Provider Name PCP: Alexey Espino DO - Other Follow-Up Type [facility]: [facility] - SIGNATURE: Naheed Greenberg RN PATIENT NAME: Na Good DATE: January 29, 2025 TIME: 2:41 PM [facility] 01-29-2025 Note HNO ID: [id number] Author: NAHEED GREENBERG RN Service: Care Management Author Type: Registered Nurse Type: Care Mgt Progress Note Filed: 01/29/2025 14:36 Note Text: CARE MANAGEMENT PROGRESS NOTE SERVICE DATE: 01/29/2025 SERVICE TIME: 2:13 PM LOS: 2 days RN CM spoke with son: Yandel Good [phone] to discuss discharge planning. Anticipate discharge today. Yandel confirms plan if for return to [facility]: [facility]. RN CM informed Yandel [...] Copy Given: Yes Copy given to:: Patient Curb Hop Curb Hop Name/Relationship: Son: Yandel Good - Method: By Phone MMT Transport scheduled for today at 3:30 PM - Trip Number [id number] Transport envelope on chart with Nurse to Nurse Report Number RN CM updated Nurse Yaritza Steven RN. RN CM called [facility] spoke with Nurse: Cori to discuss need for Home PT services. She confirms the will arrange PT with the facility therapist. She has been informed that patient will be discharge and returning to them today. Facility updated in [facility] on Discharge Plan and Medical Transport Time. SIGNATURE: Naheed Greenberg RN PATIENT NAME: Na Good DATE: January 29, 2025 TIME: 2:13 PM [facility] 01-29-2025 Note HNO ID: [id number] Author: LIDIA ARMENTA APRN.CNP Service: Cardiovascular Medicine Author Type: Nurse Practitioner Type: Progress Notes Filed: 01/29/2025 10:50 Note Text: [facility] Department of Cardiovascular Medicine SECTION OF REGIONAL CARDIOLOGY/[facility] Progress Note Elements of this note, [...] Consulting Physician: Julio Cesar Alvarez MD Primary Biometric Technician: Mandeep - last visit 2019 SERVICE DATE: [...] PO daily and lasix 20 mg daily PRACTICAL NURSING INSTRUCTOR - Enalapril increased to 5 mg BID [...] Dr. Martinez and nursing staff. Lidia Armenta APRN.AFFILIATE MARKETING COORDINATOR 01/29/2025 9:00 AM PAST MEDICAL HISTORY PAST [...] 10/05/2003 45 Last ECHO Result Conclusion ECHO [facility] (more content not included)... [facility] 01-28-2025 Note HNO ID: [id number] Author: NAHEED GREENBERG RN Service: Care Management Author Type: Registered Nurse Type: Care Mgt Initial Assessment Filed: 01/28/2025 14:43 Note Text: CARE MANAGEMENT: ASSESSMENT AND DISCHARGE PLAN SERVICE DATE: January 28, 2025 SERVICE TIME: 8:38 AM media center specialist spoke with patient to complete Care Management Assessment. RN CM left voice message for Daughter/HCPOA: Yuridia Whyte [phone] to call CM to discuss discharge planning. [...] Current Advance Directive: Health Care Power of Rotary Envelope Machine Operator In Chart: Yes Current Living Arrangements and [...] Patient Goal(s): Be able to go home [place] Explained: [place] Given: No (Discharge Needs: To be Determined) Discharge Planning Participant(s): Patient Transport at Discharge: Transportation Arrangements: To Be Determined Needs Prior to Discharge: Needs Prior to Discharge: To Be Determined, OT/PT Evaluation, Discharge Transportation Post-Acute Discharge Plan: 01/28/25 2:43 PM RN CM called [facility] spoke with Nurse Adriana in Assisted Living. Adriana confirms patient is a resident in [facility]. She confirmed PCP: Alexey Espino DO - and Pharmacy for Discharge: [facility] in [facility] - Adriana informs CM that patient is not active with HHC or Therapy at the facility prior to admission. Discharge Transportation: To be Determined. CM Dept to Follow. SIGNATURE: Naheed Greenberg RN PATIENT NAME: Na Good DATE: January 28, 2025 TIME: 2:38 PM [facility] 01-28-2025 Note HNO ID: [id number] Author: JULIO CESAR ALVAREZ MD Service: Hospital Medicine Author Type: Physician Type: Progress Notes Filed: 01/28/2025 12:39 Note Text: DEPARTMENT OF HOSPITAL MEDICINE PROGRESS NOTE SERVICE DATE: 01/28/2025 SERVICE TIME: 12:35 PM Hospital Medicine/Primary Attending: Julio Cesar Alvarez MD NIGHT AND WEEKEND COVERAGE: [place] COVERAGE: Days: [phone], please page attending physician. Nights: [phone], please page [facility] Hospitalist Night coverage pager [phone]. Subjective INTERVAL HPI: No acute events overnight. [...] HFrEF (heart failure with reduced ejection fraction) ([facility]) (POA: Status not on file) Difficulty sleeping [...] AND Antiplatelet Me (more content not included)... [facility] 01-27-2025 Note SARS-COV-2 (AGENT OF COVID-19) RNA: Not detected INFLUENZA A RNA: Not detected INFLUENZA B RNA: Not detected RESPIRATORY SYNCYTIAL VIRUS (RSV) RNA: Not detected [facility] Comment on above: Performed By: #### 2 4321-2 #### [facility] CLIA [id number] [address] [place] [id number] [place] 12-27-2024 Note HNO ID: [id number] Author: JOAN CARRIZALES RN Service: ? Author Type: Registered Nurse Type: Nursing Progress Note Filed: 12/27/2024 12:22 Note Text: Report was given to cori at [facility] 12-27-2024 Note HNO ID: [id number] Author: ANDRE SAN LSW Service: Care Management Author Type: Closing Manager Type: Care Mgt Progress Note Filed: 12/27/2024 11:32 Note Text: CARE MANAGEMENT DISCHARGE NOTE SERVICE DATE: December 27, 2024 SERVICE TIME: 11:28 AM Admission Date: 12/24/2024 LOS: 3 days Discharge Arrangement Services Arranged Provider Name: [facility] Caregiver Assessment Transportation Arrangements Transportation Arrangements: Car Date of Trip: 12/27/24 Time of Trip: 1300 Is Patient Medicaid Pending?: No Was transportation financial coverage discussed with family?: Patient, Family Auto Clocks Repairer Location: [place] D Destination: [facility] Financial Care Management Responsibility: None Handoff Communication: Handoff to: Other Caregiver Other Caregiver Name/Phone: Daughter confirmed pt has homecare services through [facility]. F2f included in d/c envelope Additional Information: CM notified regarding d/c today, return to [facility]. Family confirmed pt's son, Yandel Good, will be transporting pt back to the facility. Envelope with d/c information updated. CM will follow, as needed. SIGNATURE: DALILA Moy, TED PATIENT NAME: Na Good DATE: December 27, 2024 TIME: 11:28 AM [facility] 12-27-2024 Note HNO ID: [id number] Author: LIDIA ARMENTA APRN.CNP Service: Cardiovascular Medicine Author Type: Nurse Practitioner Type: Progress Notes Filed: 12/27/2024 09:43 Note Text: [facility] [place] [facility] Department of Cardiovascular Medicine SECTION OF [facility] Progress Note Elements of this note, [...] MD Consulting Physician: Liam Smith MD Primary Biometric Technician: SERVICE DATE: December 27, 2024 Interval History: Patient seen and examined sitting up in bed - son at bedside Patient with no cardiac complaints this AM Patient [place] Overall improved since admission Discharge was held [...] mg daily and Toprol 25 mg daily PRACTICAL NURSING INSTRUCTOR >> home meds continued on admission - [...] Dr. Matthews and nursing staff. Lidia Armenta, AIRCRAFT MECHANIC ELECTRICAL AND RADIO.AFFILIATE MARKETING COORDINATOR 12/27/2024 7:36 AM PAST MEDICAL HISTORY PAST [...] HEENT: EOM's intact (more content not included)... [facility] 12-26-2024 Note HNO ID: [id number] Author: LIAM SMITH MD Service: General Internal [...] -- 12/24/24 1830 activity - mobilize patient ([place]) VTE Prophylaxis: VTE prophylaxis appropriate SIGNATURE: Liam Smith MD PATIENT NAME: Na Good DATE: December 26, 2024 TIME: 1:54 PM [facility] 12-25-2024 Note HNO ID: [id number] Author: CATHLEEN THOMAS LSW Service: Care Management Author Type: Closing Manager Type: Care Mgt Initial Assessment Filed: 12/25/2024 [...] Practice Potential Transition Plans Other: See Comment ([facility]) Advance Directives Current Advance Directive: Health Care Power of Rotary Envelope Machine Operator In Chart: No Stone Carver Attempted to Assist with AD Completion: Yes Action: Other: See Comment (Asked RN at [facility] to fax to dept.) Current Living Arrangements and Support Lives with: Alone Type of Residence: Assisted Living Facility Does the patient have to climb stairs at home?: No Care Facility Name: [facility] Support: Children, Family members How do you manage to accomplish the following: Independent: Dress, Going to the bathroom Needs Assistance: Ambulation, Bathe/Shower, Meals/Meal Prep, Medication Management Dependent: Transportation to appointments/community Current Services/Equipment Current Post-Acute Service(s): DME Current DME Type: Other: See Comment (walking sticks) Discharge Planning Patient Goal(s): General wellness [place] Explained: [place] Given: Yes Level of Care Discussed: Other: See Comment ([facility]) Are you interested in bedside delivery of your medications? No Discharge Planning Participant(s): Patient, Other person(s) Name/Relationship: RN from [facility] Patient/Family Comments: Caregiver Assessment: Caregiver is ready, willing and able to meet the patient's needs as recommended by the inter-professional team: Yes Name of Caregiver: [facility] Transport at Discharge: Transportation Arrangements: Ambulance Transportation Agency and Phone #:: [facility] [phone] Needs Prior to Discharge: Needs Prior to Discharge: To Be Determined, Discharge Transportation, Other: See Comment, OT/PT Evaluation (medical clearance) Post-Acute Discharge Plan: EMR reviewed. CMSW called and spoke to RN at [facility]; introduced self/role. RN states that she will fax dept POA paperwork. Patient is an 89 year old female who presents with acute on chronic congestive heart failure with PMH of chf (per chart review -July 2024 EF 28%), LV thrombus (eliquis), HTN, tremors, macular degeneration, CAD, [place], and insomnia. RN states that they patient uses [facility] for medications but is unable to confirm which location. Patient uses walking sticks for ambulation and is not active with any skilled services PRACTICAL NURSING INSTRUCTOR. Patient is from with [facility] and needs assistance with ADLs. MMT to transport at discharge. Patient is safe and has her needs met. CM assigned will continue to follow for discharge needs. Updated 10:22 am: CMSW met with the patient and patient's daughter, Janelle, at bedside to confirm discharge plan of patient returning to [facility] at discharge; her son will transport her. SIGNATURE: DALILA Salinas PATIENT NAME: Na Good DATE: December 25, 2024 TIME: 9:19 AM [facility] 09-21-2020 Miscellaneous Notes Na called for a [...] 07/28/2020 Upcoming appt 01/31/2021 Please send to [facility] - [address] [phone] [facility] [place] [address] [place] [phone] Please advise documented in this encounter [facility] 11-09-2017 Telephone encounter Note Second VM left for pt. [facility] 11-09-2017 Miscellaneous Notes Second VM left for pt. Left pt a VM asking her to give our office a call back in regard to a medication refill request that we received. Medication requested; lisinopril 20 mg tab. documented in this encounter [facility] 11-07-2017 Telephone encounter Note Left pt a VM asking her to give our office a call back in regard to a medication refill request that we received. Medication requested; lisinopril 20 mg tab. [facility] Evaluation note Diagnosis Benign essential hypertension Essential hypertension, benign Chronic combined systolic and diastolic congestive heart failure (HCC) Insomnia, unspecified type documented in this encounter [facility] Assessments Diagnosis Essential hypertension - [...] also different styles of hearing aids. A hltpdj-bfc-dcz (BTE) hearing aid connects to a plastic [...] be replaced as the child grows. An lf-dzs-qewtb (ITC) hearing aid fits into the ear [...] can go to your doctor or an procedure tech. He or she will do a hearing test and help you decide which type and style of hearing aid may be best for you. But, if your hearing loss is mild to moderate, you might consider buying a good quality odlf-ftv-dblokpn hearing aid, which may be called a [...] Log into your personal health record on https://inMarket.ison furniture and enter K597 in the Education box to learn more about Learning About Hearing Aids. Current as of: February 10, 2018 Content Version: 12.1 [employer]. Care instructions adapted under license by your healthcare professional. If you have questions about a medical condition or this instruction, always ask your healthcare professional. [employer] disclaims any warranty or liability for your use of this information. documented in this encounter* Patient Instructions* Danii Chen RN - 01/13/2019 10:29 AM EDT .How to contact your Care Team: Provider: Rubin Chirinos MD [facility] Nurse: Danii Chen RN In case of an emergency please call 911. REFILLS: When in need for refills please call your care team or the office at [phone]. Please include medication name, pharmacy name, and [...] your Care Team: Provider: Rubin Chirinos MD [facility] Nurse: Danii Chen RN documented in [...] FoundDocuments on File Type Date Recorded Patient Curb Hop Expl anation Advance Directives and Living Will Documents on File Type Date Recorded Patient Curb [place] Expl anation Advance Directives and Living Will Documents on File Type Date Recorded Patient Curb [place] Expl anation Advance Directives and Livin g Will 02/03/2020 12:00 AM Documents on File Type Date Recorded Patient Curb [place] Expl anation Advance Directives and Livin g [...] Marcelo AuD - 12/04/2018 11:34 AM EDT [facility] [address] [address] Name: Na Good : 1935 Date: 12/04/18 [...] for hearing aid use at Dr. Arce's discretion.[place] for hearing aid fitting pending otologic clearance at patient's discretion. Use of good communication strategies such as pcvi-ze-wnxj communication and reduction of background noise when possible. The above was explained to the patient and or their guardian and they expressed understanding. Electronically signed by: Clari Borden, [facility]-Jose 12/04/18 11:34 AM documented in this encounter* [...] and external ear canal shape. CPT code 32063.50. With the patient in a slightly reclained [...] review the [facility] and provided an interpretation to the patient. Indeed it confirmed ZENA symmetric down slopping increase of the PRACTICAL NURSING INSTRUCTOR thresholds, normal Type A tympanograms and decreased speech discrimination. 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 Information on the devices and referral to the procedure tech arranged. Assessment/Plan: Bilateral symmetric mild sensorineural hearing [...] 01/13/2019 11:50 AM EDT OFFICE CONSULTATION NOTE [facility] [address] ([address]) [facility] [address] [facility] [phone] Physicians: David Ludwig MD Subjective: Na Good [...] 01/15/2020 3:33 PM EDT OFFICE CONSULTATION NOTE [facility] [address] ([address]) [facility] [address] [facility] [phone] Physicians: David Ludwig MD Subjective: Na [...] Problems Addressed: Problem Chf (Congestive Heart Failure) ([facility]) Sees Dr. Chirinos yearly. [...] Directive (Living Will and/or Durable Power of Rotary Envelope Machine Operator for Health Care)?: Yes What is your [...] Word Registration Version Used: Version 1: Banana, Jane Lew, Chair Step 2: Clock Drawing Step 2 [...] conjunction with the immunization order to satisfy [place] Board of Pharmacy Positive ID requirements for [...] week Gets together: Twice a week Attends evangelical service: Not on file Active member of [...] Equipment [employer] (DME) [facility] - [place] [id number] [facility] [address] [facility] [address] [address] - [place], [place] - [address] [facility] [address] [place] [address] [facility] [address] Objective Blood pressure 133/70, pulse 98, temperature [...] Contact Closed Otolaryngology Diagnoses Presbycusis, unspecified laterality Oscra Mendes MD [address] [place] [address] Ceasar Arce MD [address] [address] Status Reason Specialty Diagnoses / Procedures Referred By Contact Referred To Contact Pending Review Cardiology Diagnoses Bruit of left carotid artery Procedures Ultrasound doppler carotid Rubin Chirinos MD [address] [place] [address] Additional Source Comments Assessment & Plan Note [...] decompensated heart failure in the clinic today. [place] Heart Association functional class I-II. She is [...] section and content) DATE CREATED AUTHOR 04/01/2018 [facility] DATE CREATED AUTHOR AUTHOR'S ORGANIZ ATION 02/04/2020 [facility] DATE CREATED AUTHOR AUTHOR'S ORGANIZ ATION 01/15/2021 [facility] DATE CREATED AUTHOR AUTHOR'S ORGANIZ ATION 03/03/2025 [facility] DATE CREATED AUTHOR AUTHOR'S ORGANIZ ATION 03/05/2025 [facility] DATE CREATED AUTHOR AUTHOR'S ORGANIZ ATION 03/05/2025 [facility] Reason for Visit (unrecogniz ed section and content) Reason Comments Congestive Heart Failure Hypertension Hyperlipidemia Reason Comments Hearing Loss Pt req to see Dr EGAN New PT Status Reason Specialty Diagnoses / Procedures Referred By Contact Referred To Contact Closed Otolaryngology Diagnoses Presbycusis, unspecified laterality Oscar Mendes MD [address] [place] [address] Ceasar Arce MD [address] [facility] [address] [place] [address] Reason Comments Medicare Wellness Visit VM to schedule [place] Status Reason Specialty Diagnoses / Procedures Referred By Contact Referred To Contact Closed Specialty Services Required/Patient' s Best Interest Audiology Diagnoses Sudden hearing loss, unspecified laterality Ceasar Arce MD [address] [facility] [address] [place] [address] Kriss Marcelo AuD Reason Comments Hearing Loss left ear Reason Comments Follow-up Denies Chest pain,pr essure,SOB,Swelling Reason Comments Hypertension Hyperlipidemia Hypothyroidism Reason Comments Follow-up yearly Status Reason Specialty Diagnoses / Procedures Referred By Contact Referred To Contact Pending Review Cardiology Diagnoses Bruit of left carotid artery Procedures Ultrasound doppler carotid Rubin Chirinos MD [address] [facility] [place] [address] Reason Onset Date Comments Medicare Wellness Visit Fall Risk Screening 12/08/2019 Reason Comments Hypertension Hyperlipidemia Congestive Heart Failure Reason Onset Date Comments Medication Refill 09/21/2020 Reason Comments Medication Refill Care Teams (unrecognized sec tion and content) Dining Room Attendant Relationship Specialty Start Date End Date Anika Hernandez VERONICA PCP - General Nurse Practitioner 06/15/17 11/28/17 David Ludwig MD PCP - General Family Medicine 11/29/[address] [facility] [place] [address] PCP - [facility] Attributed Provider 07/22/20 04/22/21 FOR RECORDS [...] BE BASED ON THE PRIMARY CLINICAL RECORDS. [employer] provides no warranty or guarantee of the accuracy or completeness of information in this document.
[2025-04-22 09:09] LABS: Anion Gap 7 (7-18); BUN 34 mg/dL (4-19); BUN/Creat Ratio 37.9 RATIO (10-20); Calcium,Total 9.0 mg/dL (7.6-11.0); Carbon Dioxide 30.4 mmol/L (20.0-29.0); Chloride 103 mmol/L (96-106); Glucose 75 mg/dL (70-99); Potassium 4.4 mmol/L (3.5-5.1)
== END ==
LOC: OLS.ACH2 05:00
PROVIDERS: Visit Provider Internal Medicine
DX: I50.22 Chronic systolic (congestive) heart failure (principal)
CPT/HCPCS: 36415; 80048